=== PATIENT | male | born 1945 | race Caucasian/White ===

== ENCOUNTER 2019-03-22 13:12 | Outpatient (RCR) | payer MEDICARE, SELFPAY ==
[2019-03-14 15:10] VITALS: BMI 44.1
[2019-03-22 15:06] LABS: Prothrombin Time Fingerstick 27.9 SEC (11.9-14.4)
== END 2019-03-22 14:12 | disposition home or self-care (01) ==
LOC: LAB 13:12
PROVIDERS: Family Provider Family Medicine; PCP Family Medicine; Referring Provider Internal Medicine Cardiovascular Disease; Visit Provider Internal Medicine Cardiovascular Disease
DX: I48.0 Paroxysmal atrial fibrillation (principal)
CPT/HCPCS: 36416; 85610

== ENCOUNTER 2019-04-29 14:30 | Outpatient (RCR) | payer MEDICARE, SELFPAY ==
[2019-03-28 13:48] VITALS: BMI 44.1
[2019-04-29 14:45] LABS: Prothrombin Time Fingerstick 29.2 SEC (11.9-14.4)
== END 2019-05-06 18:00 | disposition home or self-care (01) ==
LOC: LAB 14:30
PROVIDERS: Family Provider Family Medicine; PCP Family Medicine; Referring Provider Internal Medicine Cardiovascular Disease; Visit Provider Internal Medicine Cardiovascular Disease
DX: I48.0 Paroxysmal atrial fibrillation (principal)
CPT/HCPCS: 36416; 85610

== ENCOUNTER 2019-05-29 12:02 | Outpatient (RCR) | payer MEDICARE, SELFPAY ==
[2019-03-28 13:48] VITALS: BMI 44.1
[2019-05-09 08:10] VITALS: BMI 43.4
[2019-05-29 13:24] LABS: Prothrombin Time Fingerstick 26.5 SEC (11.9-14.4)
== END 2019-05-29 18:00 | disposition home or self-care (01) ==
LOC: LAB 12:02
PROVIDERS: Family Provider Family Medicine; PCP Family Medicine; Referring Provider Internal Medicine Cardiovascular Disease; Visit Provider Internal Medicine Cardiovascular Disease
DX: I48.0 Paroxysmal atrial fibrillation (principal)
CPT/HCPCS: 36416; 85610

== ENCOUNTER 2019-06-27 14:17 | Outpatient (RCR) | payer MEDICARE, SELFPAY ==
[2019-05-09 08:10] VITALS: BMI 43.4
[2019-06-27 14:35] LABS: Prothrombin Time Fingerstick 29.9 SEC (11.9-14.4)
== END 2019-06-27 18:00 | disposition home or self-care (01) ==
LOC: LAB 14:17
PROVIDERS: Family Provider Family Medicine; PCP Family Medicine; Referring Provider Internal Medicine Cardiovascular Disease; Visit Provider Internal Medicine Cardiovascular Disease
DX: I48.0 Paroxysmal atrial fibrillation (principal)
CPT/HCPCS: 36416; 85610

== ENCOUNTER 2019-07-29 15:02 | Outpatient (RCR) | payer MEDICARE, SELFPAY ==
[2019-05-09 08:10] VITALS: BMI 43.4
[2019-07-30 07:30] LABS: Prothrombin Time Fingerstick 31.1 SEC (11.9-14.4)
== END 2019-07-29 18:00 | disposition home or self-care (01) ==
LOC: LAB 15:02
PROVIDERS: Family Provider Family Medicine; PCP Family Medicine; Referring Provider Internal Medicine Cardiovascular Disease; Visit Provider Internal Medicine Cardiovascular Disease
DX: I48.0 Paroxysmal atrial fibrillation (principal)
CPT/HCPCS: 36416; 85610

== ENCOUNTER 2019-08-28 15:49 | Outpatient (RCR) | payer MEDICARE, SELFPAY ==
[2019-05-09 08:10] VITALS: BMI 43.4
[2019-08-28 16:53] LABS: International Normalized Ratio 1.6; Prothrombin Time (Protime)PT. 18.6 SECONDS (11.7-14.9)
[2019-08-28 17:14] LABS: Prothrombin Time Fingerstick 19.6 SEC (11.9-14.4)
[2019-08-29 10:16] LABS: Prothrombin Time Fingerstick 19.5 SEC (11.9-14.4)
[2019-08-29 10:16] LABS: Prothrombin Time Fingerstick 13.5 SEC (11.9-14.4)
== END 2019-08-28 18:00 | disposition home or self-care (01) ==
LOC: LAB 15:49
PROVIDERS: Family Provider Family Medicine; PCP Family Medicine; Referring Provider Internal Medicine Cardiovascular Disease; Visit Provider Internal Medicine Cardiovascular Disease
DX: I48.0 Paroxysmal atrial fibrillation (principal)
CPT/HCPCS: 36415; 36416; 85610

== ENCOUNTER 2019-10-03 15:30 | Outpatient (RCR) | payer MEDICARE, SELFPAY ==
[2019-05-09 08:10] VITALS: BMI 43.4
[2019-09-13 15:16] LABS: Prothrombin Time Fingerstick 29.1 SEC (11.9-14.4)
[2019-10-03 15:41] LABS: Prothrombin Time Fingerstick 32.1 SEC (11.9-14.4)
== END 2019-10-03 18:00 | disposition home or self-care (01) ==
LOC: LAB 15:30
PROVIDERS: Family Provider Family Medicine; PCP Family Medicine; Referring Provider Internal Medicine Cardiovascular Disease; Visit Provider Internal Medicine Cardiovascular Disease
DX: I48.0 Paroxysmal atrial fibrillation (principal)
CPT/HCPCS: 36416; 85610

== ENCOUNTER 2019-10-30 11:36 | Outpatient (RCR) | payer MEDICARE, SELFPAY ==
[2019-09-25 15:53] VITALS: BMI 43.6
[2019-10-30 11:46] LABS: Prothrombin Time Fingerstick 31.6 SEC (11.9-14.4)
== END 2019-10-30 18:00 | disposition home or self-care (01) ==
LOC: LAB 11:36
PROVIDERS: Family Provider Family Medicine; PCP Family Medicine; Referring Provider Internal Medicine Cardiovascular Disease; Visit Provider Internal Medicine Cardiovascular Disease
DX: I48.0 Paroxysmal atrial fibrillation (principal)
CPT/HCPCS: 36416; 85610

== ENCOUNTER 2019-11-27 11:25 | Outpatient (RCR) | payer MEDICARE, SELFPAY ==
[2019-09-25 15:53] VITALS: BMI 43.6
[2019-11-21 13:57] VITALS: BMI 43.6
[2019-11-27 13:20] LABS: Prothrombin Time Fingerstick 32.2 SEC (11.9-14.4)
== END 2019-12-05 18:00 | disposition home or self-care (01) ==
LOC: LAB 11:25
PROVIDERS: Family Provider Family Medicine; PCP Family Medicine; Referring Provider Internal Medicine Cardiovascular Disease; Visit Provider Internal Medicine Cardiovascular Disease
DX: I48.0 Paroxysmal atrial fibrillation (principal)
CPT/HCPCS: 36416; 85610

== ENCOUNTER 2019-12-25 15:39 | Outpatient (RCR) | payer MEDICARE, SELFPAY ==
[2019-11-21 13:57] VITALS: BMI 43.6
[2019-12-25 15:56] LABS: Prothrombin Time Fingerstick 33.8 SEC (11.9-14.4)
== END 2019-12-25 18:00 | disposition home or self-care (01) ==
LOC: LAB 15:39
PROVIDERS: Family Provider Family Medicine; PCP Family Medicine; Referring Provider Internal Medicine Cardiovascular Disease; Visit Provider Internal Medicine Cardiovascular Disease
DX: I48.0 Paroxysmal atrial fibrillation (principal)
CPT/HCPCS: 36416; 85610

== ENCOUNTER 2020-01-30 12:22 | Outpatient (RCR) | payer MEDICARE, SELFPAY ==
[2019-11-21 13:57] VITALS: BMI 43.6
[2020-01-30 12:30] LABS: Prothrombin Time Fingerstick 29.8 SEC (11.9-14.4)
== END 2020-01-30 18:00 | disposition home or self-care (01) ==
LOC: LAB 12:22
PROVIDERS: Family Provider Family Medicine; PCP Family Medicine; Referring Provider Internal Medicine Cardiovascular Disease; Visit Provider Internal Medicine Cardiovascular Disease
DX: I48.0 Paroxysmal atrial fibrillation (principal)
CPT/HCPCS: 36416; 85610

== ENCOUNTER 2020-02-26 14:35 | Outpatient (RCR) | payer MEDICARE, SELFPAY ==
[2019-11-21 13:57] VITALS: BMI 43.6
[2020-02-26 14:50] LABS: Prothrombin Time Fingerstick 30.2 SEC (11.9-14.4)
== END 2020-02-26 18:00 | disposition home or self-care (01) ==
LOC: LAB 14:35
PROVIDERS: Family Provider Family Medicine; PCP Family Medicine; Referring Provider Internal Medicine Cardiovascular Disease; Visit Provider Internal Medicine Cardiovascular Disease
DX: I48.0 Paroxysmal atrial fibrillation (principal)
CPT/HCPCS: 36416; 85610

== ENCOUNTER 2020-03-27 13:15 | Outpatient (RCR) | payer MEDICARE, SELFPAY ==
[2019-11-21 13:57] VITALS: BMI 43.6
== END 2020-04-06 18:00 | disposition home or self-care (01) ==
LOC: LAB 13:15
PROVIDERS: Family Provider Family Medicine; PCP Family Medicine; Referring Provider Internal Medicine Cardiovascular Disease; Visit Provider Internal Medicine Cardiovascular Disease
DX: I48.0 Paroxysmal atrial fibrillation (principal)
CPT/HCPCS: 36416; 85610

== ENCOUNTER 2020-04-29 08:28 | Outpatient (RCR) | payer MEDICARE, SELFPAY ==
[2020-04-01 16:04] VITALS: BMI 43.6
[2020-04-29 14:56] LABS: Prothrombin Time Fingerstick 28.7 SEC (11.9-14.4)
== END 2020-04-29 18:00 | disposition home or self-care (01) ==
LOC: LAB 08:28
PROVIDERS: Family Provider Family Medicine; PCP Family Medicine; Referring Provider Internal Medicine Cardiovascular Disease; Visit Provider Internal Medicine Cardiovascular Disease
DX: I48.0 Paroxysmal atrial fibrillation (principal); I48.92 Unspecified atrial flutter; Z79.01 Long term (current) use of 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s
CPT/HCPCS: 36416; 85610

== ENCOUNTER 2020-05-28 13:56 | Outpatient (RCR) | payer MEDICARE, SELFPAY ==
[2020-04-01 16:04] VITALS: BMI 43.6
[2020-05-28 14:11] LABS: Prothrombin Time Fingerstick 32.1 SEC (11.9-14.4)
== END 2020-05-28 18:00 | disposition home or self-care (01) ==
LOC: LAB 13:56
PROVIDERS: Family Provider Family Medicine; PCP Family Medicine; Referring Provider Internal Medicine Cardiovascular Disease; Visit Provider Internal Medicine Cardiovascular Disease
DX: I48.0 Paroxysmal atrial fibrillation (principal); I48.92 Unspecified atrial flutter; Z79.01 Long term (current) use of 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s
CPT/HCPCS: 36416; 85610

== ENCOUNTER 2020-06-26 10:07 | Outpatient (RCR) | payer MEDICARE, SELFPAY ==
[2020-04-01 16:04] VITALS: BMI 43.6
[2020-06-26 10:21] LABS: Prothrombin Time Fingerstick 36.5 SEC (11.9-14.4)
== END 2020-06-26 18:00 | disposition home or self-care (01) ==
LOC: LAB 10:07
PROVIDERS: Family Provider Family Medicine; PCP Family Medicine; Referring Provider Internal Medicine Cardiovascular Disease; Visit Provider Internal Medicine Cardiovascular Disease
DX: I48.0 Paroxysmal atrial fibrillation (principal); I48.92 Unspecified atrial flutter; Z79.01 Long term (current) use of 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s
CPT/HCPCS: 36416; 85610

== ENCOUNTER 2020-07-22 12:51 | Outpatient (RCR) | payer MEDICARE, SELFPAY ==
[2020-04-01 16:04] VITALS: BMI 43.6
[2020-07-12 16:00] LABS: Prothrombin Time Fingerstick 30.5 SEC (11.9-14.4)
[2020-07-22 13:05] LABS: Prothrombin Time Fingerstick 31.3 SEC (11.9-14.4)
== END 2020-07-22 18:00 | disposition home or self-care (01) ==
LOC: LAB 12:51
PROVIDERS: Family Provider Family Medicine; PCP Family Medicine; Referring Provider Internal Medicine Cardiovascular Disease; Visit Provider Internal Medicine Cardiovascular Disease
DX: I48.0 Paroxysmal atrial fibrillation (principal); I48.92 Unspecified atrial flutter; Z79.01 Long term (current) use of 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s
CPT/HCPCS: 36416; 85610

== ENCOUNTER 2020-08-18 11:59 | Outpatient (RCR) | payer MEDICARE, SELFPAY ==
[2020-04-01 16:04] VITALS: BMI 43.6
[2020-08-18 12:16] LABS: Prothrombin Time Fingerstick 26.3 SEC (11.9-14.4)
== END 2020-08-18 18:00 | disposition home or self-care (01) ==
LOC: LAB 11:59
PROVIDERS: Family Provider Family Medicine; PCP Family Medicine; Referring Provider Internal Medicine Cardiovascular Disease; Visit Provider Internal Medicine Cardiovascular Disease
DX: I48.0 Paroxysmal atrial fibrillation (principal); I48.92 Unspecified atrial flutter; Z79.01 Long term (current) use of 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s
CPT/HCPCS: 36416; 85610

== ENCOUNTER 2020-09-17 13:20 | Outpatient (RCR) | payer MEDICARE, SELFPAY ==
[2020-04-01 16:04] VITALS: BMI 43.6
[2020-09-17 13:31] LABS: Prothrombin Time Fingerstick 33.4 SEC (11.9-14.4)
== END 2020-09-17 18:00 | disposition home or self-care (01) ==
LOC: LAB 13:20
PROVIDERS: Family Provider Family Medicine; PCP Family Medicine; Referring Provider Internal Medicine Cardiovascular Disease; Visit Provider Internal Medicine Cardiovascular Disease
DX: I48.0 Paroxysmal atrial fibrillation (principal); I48.92 Unspecified atrial flutter; Z79.01 Long term (current) use of 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s
CPT/HCPCS: 36416; 85610

== ENCOUNTER 2020-10-08 17:14 | Outpatient (RCR) | payer MEDICARE, SELFPAY ==
[2020-04-01 16:04] VITALS: BMI 43.6
[2020-10-08] MEDS: COVID-19 VACC, MRNA(PFIZER)/PF 30 MCG/0.3 ML SYRINGE IM (10:55)
[2020-10-29] MEDS: COVID-19 VACC, MRNA(PFIZER)/PF 30 MCG/0.3 ML SYRINGE IM (10:57)
== END 2020-10-08 23:59 ==
LOC: IMMUN 17:14
PROVIDERS: PCP Family Medicine; Visit Provider Family Medicine
DX: Z23 Encounter for immunization (principal)
CPT/HCPCS: 0001A; 0002A

== ENCOUNTER 2020-10-15 13:25 | Outpatient (RCR) | payer MEDICARE, SELFPAY ==
[2020-04-01 16:04] VITALS: BMI 43.6
[2020-10-15 13:50] LABS: Prothrombin Time Fingerstick 33.6 SEC (11.9-14.4)
== END 2020-10-15 18:00 | disposition home or self-care (01) ==
LOC: LAB 13:25
PROVIDERS: Family Provider Family Medicine; PCP Family Medicine; Referring Provider Internal Medicine Cardiovascular Disease; Visit Provider Internal Medicine Cardiovascular Disease
DX: I48.0 Paroxysmal atrial fibrillation (principal); I48.92 Unspecified atrial flutter; Z79.01 Long term (current) use of 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s
CPT/HCPCS: 36416; 85610

== ENCOUNTER → 2020-11-09 09:37 | Outpatient (CLI) | payer MEDICARE, SELFPAY ==
[2020-04-01 16:04] VITALS: BMI 43.6
[2020-11-09 11:05] LABS: AST(SGOT) 20 U/L (15-37); Alanine Aminotransfer ALT/SGPT 22 U/L (16-61); Albumin, Serum 3.1 g/dL (3.2-5.0); Alkaline Phosphatase 71 U/L (45-117); Cholesterol 124 mg/dL (200); Globulin 4.2 g/dL (2.2-4.2); High Density Lipoprotein 30 mg/dL; Protein, Total 7.3 g/dL (6.4-8.2); Triglycerides 133 mg/dL; Very Low Density Lipoprotein 27 mg/dL (5-40)
== END ==
PROVIDERS: PCP Family Medicine; Referring Provider Internal Medicine Cardiovascular Disease; Visit Provider Internal Medicine Cardiovascular Disease
DX: E78.00 Pure hypercholesterolemia, unspecified (principal)
CPT/HCPCS: 36415; 80061; 80076

== ENCOUNTER 2020-11-23 11:37 | Outpatient (RCR) | payer MEDICARE, SELFPAY ==
[2020-04-01 16:04] VITALS: BMI 43.6
[2020-11-11 16:00] VITALS: BMI 44.1
[2020-11-23 11:51] LABS: INR Fingerstick 2.6; Prothrombin Time Fingerstick 28.8 SEC (11.9-14.4)
== END 2020-11-23 18:00 | disposition home or self-care (01) ==
LOC: LAB 11:37
PROVIDERS: Family Provider Family Medicine; PCP Family Medicine; Referring Provider Internal Medicine Cardiovascular Disease; Visit Provider Internal Medicine Cardiovascular Disease
DX: I48.0 Paroxysmal atrial fibrillation (principal); I48.92 Unspecified atrial flutter; Z79.01 Long term (current) use of 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s
CPT/HCPCS: 36416; 85610

== ENCOUNTER → 2020-12-09 14:05 | Outpatient (CLI) | payer MEDICARE, SELFPAY ==
[2020-12-02 08:02] VITALS: BMI 43.9
--- NOTE | 2020-12-09 14:08 | CT_ITS ---
STUDY: LOW DOSE CT LUNG CANCER SCREENING REASON FOR EXAM: Male, 75 years old. Smoker and gt; 40 pack years, quit 2010 RADIATION DOSAGE (If Supplied By Facility): CTDIvol = ( 3.18 ) mGy, DLP = ( 99.66 ) mGycm TECHNIQUE: No contrast was administered. Low dose technique was utilized (average mAS-38 and kVp 120). 1.25 mm axial source images with a slice interval of 1.25-mm were reconstructed in lung windows. 2.5 mm axial source images with a slice interval of 2.5-mm were reconstructed in lung windows. 5.0 mm axial source images with a slice interval of 5.0-mm were reconstructed in soft tissue windows. Nodule measured using lung windows on PACS and/or independent workstation with automated measurement of minimum and maximum diameter. Nodule measurement reported as average diameter rounded to the nearest whole number. Growth is defined as an increase ins size of greater than 1.5 mm. COMPARISON: None. NODULES: There is a 1.7 cm x 1.1 cm irregular nodular density in the posterior lateral aspect of the right upper lobe. Just adjacent to this, there is a focal area of scarring. Follow-up examination is recommended. Emphysema: Diffuse emphysematous changes more prominent in the upper lobes. Mild degree of increased linear markings at the lung bases suggestive of scarring slightly more prominent on the right side. Endobronchial lesion: None Aorta: Atherosclerotic calcification of the aortic arch. Coronary arteries: Coronary artery calcification. Mediastinal nodes: Small benign appearing mediastinal lymph nodes. Other chest and abdominal findings: CT/Low Dose CT Lung Screening IMPRESSION: Lung-RADS category 4A - Screening at 3 months with LDCT or evaluation with PET/CT may be used. IMPORTANT NOTES FOR USE: ACR Lung-RADS Version 1.1 Assessment Categories Release Date: 2018 Category: Coded 0-4 bases on nodule(s) with highest degree of suspicion. Negative screen is defined as categories 1 and 2; a positive screen is defined as categories 3 and 4. Category 3 and 4A nodules that are unchanged on interval CT should be coded as category 2, and individuals returned to screening in 12 months. Category 4X: Category 3 or 4 nodules with additional imaging findings that increase the suspicion of lung cancer, such as spiculation, GGN that doubles in size in 1 year, enlarged lymph notes, etc. Category Modifiers: S (significant finding unrelated to lung cancer) Electronically Signed: Awais Mullins MD at 15:21 EDT , Service support ,
== END ==
PROVIDERS: PCP Family Medicine; Referring Provider Nurse Practitioner Acute Care; Visit Provider Nurse Practitioner Acute Care
DX: F17.210 Nicotine dependence, cigarettes, uncomplicated (principal)
CPT/HCPCS: 71271

== ENCOUNTER 2020-12-25 13:18 | Outpatient (RCR) | payer MEDICARE, SELFPAY ==
[2020-12-02 08:02] VITALS: BMI 43.9
[2020-12-25 13:31] LABS: INR Fingerstick 3.1
== END 2020-12-25 18:00 | disposition home or self-care (01) ==
LOC: LAB 13:18
PROVIDERS: Family Provider Family Medicine; PCP Family Medicine; Referring Provider Internal Medicine Cardiovascular Disease; Visit Provider Internal Medicine Cardiovascular Disease
DX: I48.0 Paroxysmal atrial fibrillation (principal); I48.92 Unspecified atrial flutter; Z79.01 Long term (current) use of 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s
CPT/HCPCS: 36416; 85610

== ENCOUNTER 2021-01-08 10:55 | Outpatient (RCR) | payer MEDICARE, SELFPAY ==
[2020-12-31 07:38] VITALS: BMI 44.1
[2021-01-08 11:10] LABS: INR Fingerstick 2.5; Prothrombin Time Fingerstick 28.3 SEC (11.9-14.4)
== END 2021-01-08 18:00 | disposition home or self-care (01) ==
LOC: LAB 10:55
PROVIDERS: Family Provider Family Medicine; PCP Family Medicine; Referring Provider Internal Medicine Cardiovascular Disease; Visit Provider Internal Medicine Cardiovascular Disease
DX: I48.0 Paroxysmal atrial fibrillation (principal); I48.92 Unspecified atrial flutter; Z79.01 Long term (current) use of 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s
CPT/HCPCS: 36416; 85610

== ENCOUNTER → 2021-01-26 15:15 | Outpatient (CLI) | payer MEDICARE, SELFPAY ==
[2020-12-31 07:38] VITALS: BMI 44.1
--- NOTE | 2021-01-26 15:00 | PET_ITS ---
EXAMINATION: FDG PET-CT INDICATIONS: A 75-year-old male with history of pulmonary nodularity. COMPARISON EXAMINATION: CT of the chest report dated 01/10/21 INDEX LESION SIZE SUV INTERPRETATION Right upper lung-right upper lobe 10.4 x 22.1-mm (frame 227) 7.7 Fulfills quantitative criteria for viable neoplasm TECHNIQUE: Following the intravenous administration of 12.88 mCi of F-18 deoxyglucose via the right antecubital fossa, multiplanar image acquisitions of the neck, chest, abdomen and pelvis to level of mid thigh, obtained at one hour post radiopharmaceutical administration contemporaneously interpreted with the current CT of the neck, chest, abdomen and pelvis, to level of mid thigh, dated 01/26/[address] of the chest report dated 01/10/21 reveals: BLOOD GLUCOSE LEVEL:?? 98 mg/dl?HEIGHT:?69 inches?WEIGHT: 299 lbs. FINDINGS: 1. Focal increased FDG distribution is defined in the right upper lung-right upper lobe generating a calculated maximal standard uptake value of 7.7. The maximal axial diameter of the corresponding parenchymal density on review of CT of the chest dated 01/26/21 is 10.4-mm (transverse) x 22.1-mm (AP). 2. Normal physiologic distribution of the radiopharmaceutical is apparent in the hepatic (2.9) and splenic parenchyma, both renal units, bladder and visualized intestinal tract. The visualized portion of the cerebral cortex demonstrate symmetric and preserved glucose metabolism. Diffuse radiopharmaceutical concentration is noted in all four quadrants of the abdomen and pelvis. Pertinent CT findings are as follows: CHEST: Centrilobular emphysematous changes are noted in the bilateral upper-mid lung zones. There are no additional parenchymal densities-nodules defined in the right and left hemithorax with discernible increased FDG uptake. Bilateral axillary soft tissue with fatty hilus is ametabolic. There is atherosclerotic calcification defined in the thoracic aorta without evidence of dilatation-aneurysm formation. Coronary arterial calcification is observed. ABDOMEN AND PELVIS: Cholelithiasis is defined. There is atherosclerotic calcification defined in the abdominal aorta without evidence of dilatation-aneurysm formation. Pelvic arterial calcification is demonstrated. Subtle calcification is noted within the right renal unit. A fat containing paraumbilical hernia is encountered. Significant beam hardening artifact attributed to right and left hip arthroplasties preclude assessment of the lower pelvic CT acquisition. Right and left subcentimeter inguinal soft tissue densities visualized are ametabolic. SKELETAL: Degenerative changes are noted in the cervical, thoracic and lumbar spine without evidence of increased radiopharmaceutical concentration. Right and left hip prostheses are noted as previously described. PET/PET/CT Tumor Base -Thigh Init IMPRESSION: 1. Increased glucose metabolism defined in the right upper lung-right upper lobe fulfills quantitative criteria for viable neoplasm. Histopathologic analysis is recommended. (Santos et al, Annals of Internal Medicine, 138:724, 2003). 2. No other quantitatively significant hypermetabolic abnormalities are noted. Electronic Signature Ever Dowling D.O. Accurate Quantification of SUVs for this report are calculated using the exclusive [employer]. (U.S. Patent No. 10, [id number] 983). Standardization and correction of the FDG SUV metric via [employer] technology allow for vendor non-specific objective quantitative examination comparison and optimization of the sensitivity and specificity of the FDG PET-CT examination. Electronically Signed: Ever Dowling DO at 7:26 EDT Tel , Service support ,
[2021-01-26] MEDS: LORazepam 2 MG/ML Syringe IV (16:49)
== END ==
PROVIDERS: PCP Family Medicine; Referring Provider Nurse Practitioner Acute Care; Visit Provider Nurse Practitioner Acute Care
DX: R91.8 Other nonspecific abnormal finding of lung field (principal)
CPT/HCPCS: 96374; 78815; A9552; A4216

== ENCOUNTER 2021-02-04 13:43 | Outpatient (RCR) | payer MEDICARE, SELFPAY ==
[2021-02-02 08:52] VITALS: BMI 43.7
[2021-02-04 13:56] LABS: INR Fingerstick 2.9; Prothrombin Time Fingerstick 31.8 SEC (11.9-14.4)
== END 2021-02-04 18:00 | disposition home or self-care (01) ==
LOC: LAB 13:43
PROVIDERS: Family Provider Family Medicine; PCP Physician Assistant; Referring Provider Internal Medicine Cardiovascular Disease; Visit Provider Internal Medicine Cardiovascular Disease
DX: I48.0 Paroxysmal atrial fibrillation (principal); I48.92 Unspecified atrial flutter; Z79.01 Long term (current) use of 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s
CPT/HCPCS: 36416; 85610

== ENCOUNTER → 2021-02-17 08:36 | Outpatient (CLI) | payer MEDICARE, SELFPAY ==
[2021-02-02 08:52] VITALS: BMI 43.7
[2021-02-17 08:59] VITALS: PULSE 66; BMI 44.1
[2021-02-17 09:17] VITALS: BP 142/52; BP 161/57; PULSE 60; RESP 14; O2SAT 93
--- NOTE | 2021-02-17 09:30 | CT_ITS ---
STUDY: CT CHEST WITHOUT CONTRAST REASON FOR EXAM: Male, 75 years old. LUNG BIOPSY, PRE-BIOPSY images. Unable to access mass. RADIATION DOSAGE (If Supplied By Facility): CTDIvol = ( 29.14 ) mGy, DLP = ( 745.54 ) mGycm TECHNIQUE: Transaxial imaging was performed without the administration of intravenous contrast material. Individualized dose optimization techniques were used for this CT. COMPARISON: Comparison is made with prior study of 12/09/2020. FINDINGS: Once again, there is a 1.7 cm x 1.1 cm irregular spicular nodule in the posterior-lateral aspect of the right upper lobe. Unable to perform the biopsy due to no safe access to the nodular density available. CT/Chest without Contrast IMPRESSION: The biopsy of the right upper lobe nodule was not biopsied. No adequate access is available for biopsy. Electronically Signed: Awais Mullins MD at 12:59 EDT , Service support ,
[2021-02-17 09:52] VITALS: BP 158/76; PULSE 70; RESP 15; O2SAT 94
[2021-02-17 10:03] VITALS: BP 161/57; BP 163/67; PULSE 61; RESP 16; O2SAT 96
--- NOTE | 2021-02-17 10:34 | NURSING ---
Unable to complete CT Guided biopsy due to location of nodule (see procedural sedation Umu Rodriguez's office made aware. Pt informed to follow up with Umu Rodriguez's office for further instructions if he does not hear from the office by tomorrow.
== END | disposition home or self-care (01) ==
PROVIDERS: PCP Physician Assistant; Referring Provider Nurse Practitioner Acute Care; Visit Provider Nurse Practitioner Acute Care
DX: R91.1 Solitary pulmonary nodule (principal)
CPT/HCPCS: 71250; J7040; A4216

== ENCOUNTER 2021-03-15 11:36 | Outpatient (RCR) | payer MEDICARE, SELFPAY ==
[2021-03-03 08:09] VITALS: BMI 44.6
[2021-03-15 11:55] LABS: INR Fingerstick 2.3; Prothrombin Time Fingerstick 25.7 SEC (11.9-14.4)
== END 2021-03-15 18:00 | disposition home or self-care (01) ==
LOC: LAB 11:36
PROVIDERS: Family Provider Family Medicine; PCP Physician Assistant; Referring Provider Internal Medicine Cardiovascular Disease; Visit Provider Internal Medicine Cardiovascular Disease
DX: I48.0 Paroxysmal atrial fibrillation (principal); I48.92 Unspecified atrial flutter; Z79.01 Long term (current) use of 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s
CPT/HCPCS: 36416; 85610

== ENCOUNTER 2021-04-15 11:50 | Outpatient (RCR) | payer MEDICARE, SELFPAY ==
[2021-04-07 01:08] VITALS: BMI 44.6
[2021-04-15 12:01] LABS: INR Fingerstick 2.5; Prothrombin Time Fingerstick 28.5 SEC (11.9-14.4)
== END 2021-04-15 18:00 | disposition home or self-care (01) ==
LOC: LAB 11:50
PROVIDERS: Family Provider Family Medicine; PCP Physician Assistant; Referring Provider Internal Medicine Cardiovascular Disease; Visit Provider Internal Medicine Cardiovascular Disease
DX: Z79.01 Long term (current) use of 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s (principal)
CPT/HCPCS: 36416; 85610

== ENCOUNTER 2021-05-07 12:54 | Outpatient (RCR) | payer MEDICARE, SELFPAY ==
[2021-05-07 00:40] VITALS: BMI 44.6
[2021-05-07 13:05] LABS: INR Fingerstick 2.1
== END 2021-06-06 05:18 | disposition home or self-care (01) ==
LOC: LAB 12:54
PROVIDERS: Family Provider Family Medicine; PCP Physician Assistant; Referring Provider Internal Medicine Cardiovascular Disease; Visit Provider Internal Medicine Cardiovascular Disease
DX: Z79.01 Long term (current) use of 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s (principal)
CPT/HCPCS: 36416; 85610

== ENCOUNTER 2021-06-11 11:45 | Outpatient (RCR) | payer MEDICARE, SELFPAY ==
[2021-06-06 05:18] VITALS: BMI 44.6
[2021-06-11 13:21] LABS: INR Fingerstick 2.5; Prothrombin Time Fingerstick 28.5 SEC (11.9-14.4)
== END 2021-07-06 18:00 | disposition home or self-care (01) ==
LOC: LAB 11:45
PROVIDERS: Family Provider Family Medicine; PCP Physician Assistant; Referring Provider Internal Medicine Cardiovascular Disease; Visit Provider Internal Medicine Cardiovascular Disease
DX: Z79.01 Long term (current) use of 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s (principal)
CPT/HCPCS: 36416; 85610

== ENCOUNTER 2021-08-05 11:25 | Outpatient (RCR) | payer MEDICARE, SELFPAY ==
[2021-07-07 03:52] VITALS: BMI 44.6
[2021-07-13 10:51] LABS: INR Fingerstick 2.5; Prothrombin Time Fingerstick 28.3 SEC (11.9-14.4)
[2021-08-05 11:40] LABS: INR Fingerstick 2.5; Prothrombin Time Fingerstick 28.5 SEC (11.9-14.4)
== END 2021-08-07 18:00 | disposition home or self-care (01) ==
LOC: LAB 11:25
PROVIDERS: Family Provider Family Medicine; PCP Physician Assistant; Referring Provider Internal Medicine Cardiovascular Disease; Visit Provider Internal Medicine Cardiovascular Disease
DX: Z79.01 Long term (current) use of 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s (principal)
CPT/HCPCS: 36416; 85610

== ENCOUNTER 2021-08-20 11:28 | Outpatient (RCR) | payer MEDICARE, SELFPAY ==
[2021-08-09 02:37] VITALS: BMI 44.6
[2021-08-20 11:45] LABS: INR Fingerstick 2.1; Prothrombin Time Fingerstick 24.3 SEC (11.9-14.4)
== END 2021-09-06 18:00 | disposition home or self-care (01) ==
LOC: LAB 11:28
PROVIDERS: PCP Physician Assistant; Referring Provider Internal Medicine Cardiovascular Disease; Visit Provider Internal Medicine Cardiovascular Disease
DX: Z79.01 Long term (current) use of 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s (principal)
CPT/HCPCS: 36416; 85610

== ENCOUNTER 2021-10-04 11:42 | Outpatient (RCR) | payer MEDICARE, SELFPAY ==
[2021-09-07 02:28] VITALS: BMI 44.6
[2021-10-04 12:11] LABS: INR Fingerstick 1.9; Prothrombin Time Fingerstick 22.3 SEC (11.9-14.4)
== END 2021-10-04 23:59 | disposition home or self-care (01) ==
LOC: LAB 11:42
PROVIDERS: PCP Physician Assistant; Referring Provider Internal Medicine Cardiovascular Disease; Visit Provider Internal Medicine Cardiovascular Disease
DX: Z79.01 Long term (current) use of 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s (principal)
CPT/HCPCS: 36416; 85610

== ENCOUNTER 2021-10-21 11:45 | Outpatient (RCR) | payer MEDICARE, SELFPAY ==
[2021-10-05 10:32] VITALS: BMI 44.6
[2021-10-21 11:56] LABS: INR Fingerstick 2.3; Prothrombin Time Fingerstick 27.3 SEC (11.7-14.9)
== END 2021-11-04 18:00 | disposition home or self-care (01) ==
LOC: LAB 11:45
PROVIDERS: PCP Physician Assistant; Referring Provider Internal Medicine Cardiovascular Disease; Visit Provider Internal Medicine Cardiovascular Disease
DX: Z79.01 Long term (current) use of 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s (principal)
CPT/HCPCS: 36416; 85610

== ENCOUNTER 2021-10-31 23:43 | Observation (INO) | payer MEDICARE, SELFPAY ==
[2021-10-31 23:45] VITALS: BP 138/88; PULSE 88; RESP 16; TEMP 36.6; O2SAT 97; BMI 43.5
[2021-10-31 23:54] VITALS: O2SAT 89; O2SAT 91; O2SAT 94
--- NOTE | 2021-10-31 23:56 | EKG12_ITS ---
Test Reason : WEAKNESS Blood Pressure : / mmHG Vent. Rate : 084 BPM Atrial Rate : 070 BPM P-R Int : 256 ms QRS Dur : 084 ms QT Int : 382 ms P-R-T Axes : 078 -16 028 degrees QTc Int : 451 ms Sinus rhythm with 1st degree A-V block with occasional and consecutive Premature ventricular complexe s and Fusion complexes Nonspecific ST abnormality Abnormal ECG Confirmed by CRISTIANE VILLEDA, ANIYA ([id number]), writer editor NEDA JIN ([id number]) on 11/02/2021 10:39:46 AM Referred By: Confirmed By:ANIYA SAUER MD
--- NOTE | 2021-10-31 23:58 | EDS_ITS ---
HPI History of Present Illness Chief Complaint: Shortness of Breath Detail of Chief Complaint: Chills, weakness, shortness of breath Informant: patient Onset/Context/Timing Onset: Hours Context: Gradual Onset Current Severity: Mild Maximum Severity: Moderate Narrative Narrative: Patient presents with our to have history of chills and shortness of breath. He states overall he feels generally weak. He states he felt well throughout the day today. No measured temperature. He has a chronic cough that is unchanged from baseline with a thick white sputum production. No chest pain. No vomiting or diarrhea. Patient has a history of lung cancer and finished radiation approximately 3 months ago. He is not currently on chemotherapy. [facility] Medical History (Updated 11/01/21 @ 01:[address] Janet Raines MD) Chronic diastolic heart failure CKD (chronic kidney disease) COPD (chronic obstructive pulmonary disease) Essential hypertension [facility] current use of 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 SILVER (obstructive sleep apnea) Paroxysmal atrial fibrillation Paroxysmal atrial flutter Pure hypercholesterolemia SOB (shortness of breath) Tachycardia Type 2 diabetes mellitus Ulcerative colitis Home Medications potassium chloride 20 meq PO DAILY 09/27/15 [History Last Taken 08/20/16 07:00] atorvastatin 40 mg PO QHS 08/20/16 [History Last Taken 08/20/16 07:00] diphenhydramine HCl 25 mg PO Q6H PRN PRN 08/20/16 [History Last Taken Unknown] metformin 500 mg tablet 500 mg PO BID 05/09/19 [History Last Taken Unknown] furosemide 20 mg tablet 40 mg PO DAILY tab 04/01/20 [History Last Taken Unknown] nystatin-triamcinolone 100,000 unit/gram-0.1 % topical ointment 1 applic TOPICAL DAILY PRN 04/01/20 [History Last Taken Unknown] prazosin 2 mg capsule 2 mg PO BID #180 cap 11/06/20 [Rx Last Taken Unknown] flecainide 50 mg tablet 50 mg PO Q12H #180 tab 11/09/20 [Rx Last Taken Unknown] mesalamine 800 mg tablet,delayed release 800 mg PO TID tablet 11/11/20 [History Last Taken Unknown] metoprolol tartrate 50 mg PO BID 02/17/21 [History Last Taken Unknown] warfarin 2.5 mg tablet 2.5 mg PO DAILY #90 tab 05/26/21 [Rx Last Taken Unknown] Allergy/AdvReac Type Severity Reaction Status Date / Time amlodipine Allergy Severe Rash Verified 10/31/21 23:47 Penicillins Allergy Hives Verified 10/31/21 23:47 azithromycin AdvReac Diarrhea Verified 10/31/21 23:47 celecoxib [From Celebrex] AdvReac RECTAL Verified 10/31/21 23:47 BLEEDING Family History Mother Colon cancer Heart disease Father CAD (coronary artery disease) Sister Diabetes Brother Heart disease Diabetes Surgical History History of bilateral hip replacements History of knee surgery History of radiofrequency ablation procedure for cardiac arrhythmia (~08/11/15) Social History Smoking Status: Former smoker alcohol intake: current details: rare substance use type: does not use caffeine: Yes Type: coffee Number of servings: 3 ROS ROS ED Constitutional Constitutional ED: Reports chills; Denies fever(s) Eyes Eyes: Denies change in vision ENT ENT ED: Denies rhinorrhea or sore throat Cardiovascular Cardiovascular: Denies chest pain Respiratory/Chest Respiratory/Chest: Reports cough, dyspnea and sputum Gastrointestinal Gastrointestinal: Denies abdominal pain, diarrhea, nausea or vomiting Genitourinary Genitourinary ED: Denies dysuria Musculoskeletal Musculoskeletal: Denies back pain Integumentary Denies rash Neurologic Neurologic: Reports weakness; Denies headache(s) Allergic/Immunologic Allergic/Immunologic ED: Denies urticaria EXAM Physical Exam Const Vital Signs: 10/31/21 23:45 10/31/21 23:54 11/01/21 01:07 Temperature 97.8 F Temperature Source Temporal Pulse Rate 88 Respiratory Rate 16 Respiratory Effort Short of Breath Respiratory Depth Normal Respiratory Pattern Normal Blood Pressure 138/88 H Blood Pressure Mean 104 Pulse Ox 97 91 94 Oxygen Delivery Method Room Air Nasal Cannula Nasal Cannula Oxygen Flow Rate (L/min) 2 2 Positive well nourished and well developed General Appearance ED: well developed HEENT Reports moist mucous membranes Eyes PERRL and EOMs intact bilaterally Neck supple Chest Wall inspection of chest normal and palpation of chest normal Resp normal respiratory effort and clear to auscultation bilaterally Cardio regular rate and regular rhythm GI non-tender Auscultation: hypoactive bowel sounds Palpation: soft Extremity normal to inspection Neuro oriented x3 Sensorium / Orientation: alert Psych mental status grossly normal Skin no rashes or lesions noted MDM MDM MDM Narrative Medical decision making narrative: EKG, chest x-ray, sepsis work-up initiated. Cultures obtained. Influenza and Covid swab ordered. Lab Data Attestation: I reviewed the patient's lab results. Labs: Laboratory Results - last 24 hr 11/01/21 11/01/21 11/01/21 00:03 00:03 00:03 WBC 6.6 RBC 4.88 Hgb 14.8 Hct 45.7 MCV 93.6 MCH 30.3 MCHC 32.4 RDW Std Deviation 46.3 H RDW Coeff of Jadon 13.6 Plt Count 172 MPV 10.2 Immature Gran % (Auto) 0.600 Neut % (Auto) 77.8 H Lymph % (Auto) 17.4 L Emanuel % (Auto) 1.4 Eos % (Auto) 2.3 Baso % (Auto) 0.5 Absolute Neuts (auto) 5.1 Absolute Lymphs (auto) 1.14 Nucleated RBC % 0 PT 24.3 H INR 2.3 Sodium 138 Potassium 5.0 Chloride 106 Carbon Dioxide 28.0 Anion Gap 4 L BUN 21 H Creatinine 1.33 H Estim Creat Clear Calc 47.99 Est GFR (MDRD) Af Amer 67 Est GFR (MDRD) Non-Af 56 L BUN/Creatinine Ratio 15.8 Glucose 132 H Lactic Acid Calcium 8.3 L Total Bilirubin 0.90 Direct Bilirubin 0.11 AST 33 ALT 23 Alkaline Phosphatase 72 Troponin I High Sens 7 B-Natriuretic Peptide Total Protein 7.6 Albumin 3.0 L Globulin 4.6 H Urine Color Urine Clarity Urine pH Ur Specific Bradford Urine Protein Urine Glucose (UA) Urine Ketones Urine Occult Blood Urine Nitrite Urine Bilirubin Urine Urobilinogen Ur Leukocyte Esterase Urine RBC Urine WBC Ur Squamous Epith Cells Urine Bacteria Urine Mucus 11/01/21 11/01/21 11/01/21 00:03 00:03 01:00 WBC RBC Hgb Hct MCV MCH MCHC RDW Std Deviation RDW Coeff of Jadon Plt Count MPV Immature Gran % (Auto) Neut % (Auto) Lymph % (Auto) Emanuel % (Auto) Eos % (Auto) Baso % (Auto) Absolute Neuts (auto) Absolute Lymphs (auto) Nucleated RBC % PT INR Sodium Potassium Chloride Carbon Dioxide Anion Gap BUN Creatinine Estim Creat Clear Calc Est GFR (MDRD) Af Amer Est GFR (MDRD) Non-Af BUN/Creatinine Ratio Glucose Lactic Acid 1.9 Calcium Total Bilirubin Direct Bilirubin AST ALT Alkaline Phosphatase Troponin I High Sens B-Natriuretic Peptide 57.5 Total Protein Albumin Globulin Urine Color Yellow Urine Clarity Clear Urine pH 5.0 Ur Specific Bradford 1.020 Urine Protein 30 H Urine Glucose (UA) Normal Urine Ketones Negative Urine Occult Blood 150 H Urine Nitrite Negative Urine Bilirubin Negative Urine Urobilinogen Normal Ur Leukocyte Esterase 25 H Urine RBC 5-10 SEEN Urine WBC 0-5 SEEN Ur Squamous Epith Cells 0 SEEN Urine Bacteria RARE Urine Mucus 0 SEEN Influenza: Negative Covid: Negative Radiography Chest X-Ray - ED: 1 View, Read by ED Physician and Chronic Changes Diagnostic Testing: Clinical Impression(s) from Imaging Studies Chest X-Ray 11/01/21 00:00 IMPRESSION: 1. Borderline to mild canal with borderline heart failure. 2. No other evidence of active cardiopulmonary disease. 3. Mild hyperinflation. 4. Benign calcifications in the right hilar and right infrahilar regions. 5. Mild demineralization. Electronically Signed: Christian Cruz MD at 1:18 EDT , EKG Initial EKG: Attestation: I personally reviewed and interpreted this EKG as follows: Interpretation: Sinus Rhythm (Sinus 84 with first-degree AV block. No acute ST change.) Treatment and Re-Evaluation Narrative: Nursing staff did note that the patient O2 sat when sitting in bed was 89%. He was placed on nasal cannula at the time of my initial exam. They did take his oxygen off to allow him to stand at bedside to use the urinal. With this movement his O2 sat did drop to 87%. He was placed back in bed and on nasal cannula. His oxygen quickly recovered to 94%. CBC and chemistry studies largely unremarkable. INR is therapeutic. BNP is 57. Troponin normal at 7. Urinalysis reveals no acute infection. Chest x-ray reveals chronic changes per my interpretation. Radiology feels there is borderline heart failure. Patient given 40 mg of IV Lasix. In light of the fact that he is requiring oxygen I will speak with hospitalist regarding observation. Discharge Plan Triage Chief Complaint: Shortness of Breath ED Provider: Janet Raines Dx/Rx/DC Orders Clinical Impression: Mild congestive heart failure, Hypoxia Prescriptions: No Action metformin 500 mg tablet 500 mg PO BID RF: 0 furosemide 20 mg tablet 40 mg PO DAILY RF: 0 nystatin-triamcinolone 100,000-0.1 unit/gram-% ointment 1 applic TOPICAL DAILY PRN (Reason: Itching) RF: 0 warfarin 2.5 mg tablet 2.5 mg PO DAILY Qty: 90 RF: 3 potassium chloride 20 MEQ tablet 20 meq PO DAILY RF: 0 mesalamine 800 mg tablet,delayed release (DR/EC) 800 mg PO TID RF: 0 atorvastatin 40 MG tablet 40 mg PO QHS RF: 0 diphenhydramine HCl 25 MG capsule 25 mg PO Q6H PRN PRN (Reason: Allergies) RF: 0 metoprolol tartrate 100 mg tablet 50 mg PO BID RF: 0 prazosin 2 mg capsule 2 mg PO BID Qty: 180 RF: 3 flecainide 50 mg tablet 50 mg PO Q12H Qty: 180 RF: 3 Primary Care Provider: Fransisca Wright Referrals: Fransisca Wright, PA [Primary Care Provider] - Disposition Disposition: Acute Care Hospital [facility]
[2021-11-01] VITALS (21 sets, daily range): BP systolic 123–140; BP diastolic 53–65; PULSE 68–98; RESP 16–20; TEMP 36.3–37.2; O2SAT 87–95
--- NOTE | 2021-11-01 | RAD_ITS ---
STUDY: PORTABLE AP UPRIGHT CHEST OF 2359 HOURS ON 10/31/2021 REASON FOR EXAM: 76-year-old male with shortness of breath. TECHNIQUE: A single view portable AP upright chest x-ray was performed per request. COMPARISON: 05/16/2017. FINDINGS: Mild demineralization.. Borderline to mild cardiomegaly with borderline heart failure. No confluent infiltrates, atelectasis, effusion, or pulmonary mass lesions. Calcifications in the right hilar and right infrahilar regions. Mild hyperinflation. RAD/Chest 1 View (Portable) IMPRESSION: 1. Borderline to mild canal with borderline heart failure. 2. No other evidence of active cardiopulmonary disease. 3. Mild hyperinflation. 4. Benign calcifications in the right hilar and right infrahilar regions. 5. Mild demineralization. Electronically Signed: Christian Cruz MD at 1:18 EDT ,
[2021-11-01 00:32] LABS: International Normalized Ratio 2.3; Prothrombin Time (Protime)PT. 24.3 SECONDS (11.7-14.9)
[2021-11-01 00:37] LABS: Absolute Lymphocyte Count 1.14 X10^3/uL (0.83-4.51); Absolute Neutrophil Count 5.1 X10^3/uL (2.0-7.7); Basophil# 0.03 X10^3/uL; Basophil% 0.5 % (0-1); Eosinophil# 0.15 X10^3/uL; Eosinophils% 2.3 % (0-5); Hematocrit 45.7 % (40-54); Hemoglobin 14.8 g/dL (13.0-16.5); Lymphocyte # 1.14 X10^3/ul (0.83-4.51); Lymphocyte % 17.4 % (19-41); Mean Corp Hgb Conc 32.4 g/dL (32-36); Mean Corpuscular Hgb 30.3 pg (27.0-32.0); Mean Corpuscular Volume 93.6 fL (80-94); Mean Platelet Vol. 10.2 fl (6.2-12.0); Monocyte# 0.09 X10^3/uL; Monocyte% 1.4 % (0-10); NRBC Flagged by Analyzer 0 % (0-5); Neutrophil # 5.11 X10^3/uL (2.7-7.7); Neutrophil % 77.8 % (47-70); Platelet Count 172 K/mm3 (150-450); RBC Distribution Width CV 13.6 % (11.6-14.6); RBC Distribution Width SD 46.3 fl (35.1-43.9); Red Blood Count 4.88 M/mm3 (4.6-6.2); White Blood Count 6.6 K/mm3 (4.4-11.0)
[2021-11-01 00:42] LABS: Lactic Acid 1.9 mmol/L (0.4-1.9)
[2021-11-01 01:02] LABS: BNP,B-Type NATRIURETIC PEPTIDE 57.5 pg/mL (0-100)
[2021-11-01 01:03] LABS: AST(SGOT) 33 U/L (15-37); Alanine Aminotransfer ALT/SGPT 23 U/L (16-61); Alkaline Phosphatase 72 U/L (45-117); Anion Gap 4 (5-15); BUN 21 mg/dL (7-18); BUN/Creat Ratio 15.8 RATIO (10-20); Bilirubin, Direct 0.11 mg/dL (0.00-0.30); Calcium,Total 8.3 mg/dL (8.5-10.1); Chloride 106 mmol/L (98-107); Creatinine, Serum 1.33 mg/dL (0.70-1.30); EST Glomerular Filtration Rate 56 mL/min (>60); Est Glom Filt Rate - Afr Amer 67 mL/min (>60); Estimated Creatinine Clearance 47.99 ml/min; Globulin 4.6 g/dL (2.2-4.2); Glucose 132 mg/dL (74-106); Protein, Total 7.6 g/dL (6.4-8.2); Sodium Level 138 mmol/L (136-145); Troponin-I HS 7 pg/mL (3.0-78.0)
[2021-11-01 01:05] LABS: Mucous, Urine 0 SEEN /hpf (<or=2+); Squamous Epithelial Cells - UA 0 SEEN /hpf (0-5)
[2021-11-01 01:06] LABS: Color, Urine Yellow (Yellow); Glucose, Dipstick Normal (Normal); Ketone-Dipstick Negative (Negative); Leukocyte Esterase-Dipstick 25 /ul (Negative); Nitrite-Dipstick Negative (Negative); Occult Blood-Urine 150 /ul (Negative); Protein-Dipstick 30 mg/dl (Negative); Urine Bilirubin Dipstick Negative (Negative); Urine Clarity Clear (Clear); Urine Urobilinogen Normal (Normal)
[2021-11-01 01:18] LABS: Bacteria RARE /hpf (None Seen); Red Blood Cells-Urine 5-10 SEEN /hpf (0-5); White Blood Cells 0-5 SEEN /hpf (0-5)
[2021-11-01] MEDS: Furosemide 40 MG/4 ML Vial IV (01:51)
--- NOTE | 2021-11-01 04:49 | PCM.HP.STD ---
[facility] - General General Date of Admission: 11/01/21 Date of Service: 11/01/21 Chief Complaint: Acute on chronic shortness of breath for 2 to 3 days. HPI Narrative AVELINA BULL, is a 76 M with multiple comorbidities including lung cancer, completed radiotherapy approximately [address] 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 Patient has chronic shortness of breath on mild exertion with history of COPD, SILVER, paroxysmal A. fib status post ablation and heart failure. He denies any change in severity or characteristics of cough or sputum production. Patient has chronic exertional dyspnea but denies PND or orthopnea. Mild chronic cough with thick whitish sputum production. Denies fever or chills. No nausea or vomiting, chest pain, wheezing or abdominal pain. In ED vitals reviewed heart rate and blood pressure in acceptable limit. Pulse ox 97% on room air. Patient had chest x-ray done individually reviewed and shows mild interstitial edema. No confluent infiltrate, effusion or pulmonary mass lesion. Mild hyperinflation. Twelve-lead EKG shows sinus rhythm with first-degree AV block at 84 bpm with PVCs. QTc [address]-T abnormality. Patient had labs done in ED reviewed. Patient was given Lasix 40 mg IV and further admitted. 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 SILVER (obstructive sleep apnea) Paroxysmal atrial fibrillation Paroxysmal atrial flutter Pure hypercholesterolemia Sleep apnea SOB (shortness of breath) Tachycardia Type 2 diabetes mellitus Ulcerative colitis Home Medications potassium chloride 20 meq PO DAILY 09/27/15 [History Last Taken 10/31/21 08:00 20 meq] atorvastatin 40 mg PO QHS 08/20/16 [History Last Taken 10/31/21 18:00 40 mg] diphenhydramine HCl 25 mg PO Q6H PRN PRN 08/20/16 [History Last Taken Unknown] metformin 500 mg tablet 500 mg PO BID 05/09/19 [History Last Taken 10/31/21 18:00 500 mg] furosemide 20 mg tablet 40 mg PO DAILY tab 04/01/20 [History Last Taken 10/31/21 08:00 20 mg] nystatin-triamcinolone 100,000 unit/gram-0.1 % topical ointment 1 applic TOPICAL DAILY PRN 04/01/20 [History Last Taken 10/31/21 18:00] prazosin 2 mg capsule 2 mg PO BID #180 cap 11/06/20 [Rx Last Taken 10/31/21 08:00 2 mg] flecainide 50 mg tablet 50 mg PO Q12H #180 tab 11/09/20 [Rx Last Taken 10/31/21 18:00 50 mg] mesalamine 800 mg tablet,delayed release 800 mg PO TID tablet 11/11/20 [History Last Taken 10/31/21 18:00 800] metoprolol tartrate 50 mg PO BID 02/17/21 [History Last Taken 10/31/21 18:00 100] warfarin 2.5 mg tablet 2.5 mg PO DAILY #90 tab 05/26/21 [Rx Last Taken 10/31/21 18:00 2.5mg] Allergy/AdvReac Type Severity Reaction Status Date / Time amlodipine Allergy Severe Rash Verified 10/31/21 23:47 Penicillins Allergy Hives Verified 10/31/21 23:47 azithromycin AdvReac Diarrhea Verified 10/31/21 23:47 celecoxib [From Celebrex] AdvReac RECTAL Verified 10/31/21 23:47 BLEEDING Family History Mother Colon cancer Heart disease Father CAD (coronary artery disease) Sister Diabetes Brother Heart disease Diabetes Surgical History History of bilateral hip replacements History of knee surgery History of radiofrequency ablation procedure for cardiac arrhythmia (~08/11/15) Social History Smoking Status: Former smoker alcohol intake: current details: rare substance use type: does not use caffeine: Yes Type: coffee Number of servings: 3 ROS ROS Narrative Constitutional: Reports fatigue and weakness. Acute on chronic shortness of breath. HEENT: Reports systems reviewed and no addt'l complaints, except as documented Respiratory/Chest: As mentioned in HPI Gastrointestinal: Denies coffee ground emesis, hematemesis or vomiting Genitourinary: Denies burning urination or new urinary tract symptoms Musculoskeletal: Reports joint pain mainly over lumbar sacral spine and limited range of motion. Bilateral hip replacement Neurologic: Denies seizure-like activity skin: No ulcer. No rash Endocrinology: Diabetes mellitus type 2 reports systems reviewed and no addt'l complaints, except as documented Hematologic/Lymphatic: Bilateral leg swelling. Reports systems reviewed and no addt'l complaints, except as documented Rest 14 ROS are negative except as mentioned in HPI Vital Signs Vital Signs Vital Signs: 10/31/21 23:45 10/31/21 23:54 11/01/21 01:07 Temperature 97.8 F Temperature Source Temporal Pulse Rate 88 Respiratory Rate 16 Respiratory Effort Short of Breath Respiratory Depth Normal Respiratory Pattern Normal Blood Pressure 138/88 H Blood Pressure [BP] Blood Pressure Mean 104 Blood Pressure Mean [BP] Blood Pressure Source Blood Pressure Source [BP] Blood Pressure Position Blood Pressure Position [BP] Blood Pressure Location Blood Pressure Location [BP] Pulse Ox 97 91 94 Oxygen Delivery Method Room Air Nasal Cannula Nasal Cannula Oxygen Flow Rate (L/min) 2 2 11/01/21 01:28 11/01/21 01:55 11/01/21 03:28 Temperature 98.9 F 98.6 F 98.6 F Temperature Source Oral Oral Oral Pulse Rate 75 85 Respiratory Rate 16 16 Respiratory Effort Respiratory Depth Respiratory Pattern Blood Pressure 140/53 H 132/53 H Blood Pressure [BP] 132/53 H Blood Pressure Mean 82 79 Blood Pressure Mean [BP] 79 Blood Pressure Source Monitor Blood Pressure Source [BP] Monitor Blood Pressure Position Semi-Fowlers Blood Pressure Position [BP] Supine Blood Pressure Location Left Arm Blood Pressure Location [BP] Left Arm Pulse Ox 94 93 Oxygen Delivery Method Nasal Cannula Room Air Oxygen Flow Rate (L/min) 2 11/01/21 04:04 11/01/21 04:20 Temperature Temperature Source Pulse Rate 73 Respiratory Rate Respiratory Effort Normal Non-Labored Respiratory Depth Normal Respiratory Pattern Normal Blood Pressure Blood Pressure [BP] Blood Pressure Mean Blood Pressure Mean [BP] Blood Pressure Source Blood Pressure Source [BP] Blood Pressure Position Blood Pressure Position [BP] Blood Pressure Location Blood Pressure Location [BP] Pulse Ox Oxygen Delivery Method Room Air Oxygen Flow Rate (L/min) Weight Weight: 295 lb 13.765 oz Body Mass Index (BMI) 43.5 Physical Exam Narrative General: Alert, Oriented x3, Cooperative, morbid obesity BMI 43.7 kg/m? HEENT: Atraumatic, PERRLA, EOMI, Normocephalic Oral: No Gingival or Mucosal Lesions/ Ulcerations Neck: Supple, No JVD, Negative Carotid Bruits Lungs: Air entry diminished in bilateral lung bases. No crepitation/rhonchi Cardiovascular: Regular rate, Regular Rhythm, Normal S1, Normal S2, No murmurs Abdomen: Bowel Sounds Present, Soft, Non Tender, mild distention due to fat abdomen. Fluid thrill not appreciable : No renal angle tenderness. No suprapubic tenderness. Extremities: Bilateral leg edema, pitting right more than left, Capillary Refill Less than 3 Seconds Skin: No rashes, No breakdown Musculoskeletal: No Tenderness to Palpation of Joints or Extremities, muscle strength 4/5 at major joints of lower extremity Neurological: Cranial nerves II-XII grossly intact, DTR 2+/4 and Symmetrical, Neuro grossly intact Psych/Mental Status: Normal Affect, Appropriate Results Lab / Micro Data Result Diagrams: 11/01/21 00:03 11/01/21 00:03 Labs: Laboratory Results - last 24 hr 11/01/21 00:03: WBC 6.6, RBC 4.88, Hgb 14.8, Hct 45.7, MCV 93.6, MCH 30.3, MCHC 32.4, RDW Std Deviation 46.3 H, RDW Coeff of Jadon 13.6, Plt Count 172, MPV 10.2, Immature Gran % (Auto) 0.600, Neut % (Auto) 77.8 H, Lymph % (Auto) 17.4 L, [place] % (Auto) 1.4, Eos % (Auto) 2.3, Baso % (Auto) 0.5, Absolute Neuts (auto) 5.1, Absolute Lymphs (auto) 1.14, Nucleated RBC % 0 11/01/21 00:03: PT 24.3 H, INR 2.3 11/01/21 00:03: Sodium 138, Potassium 5.0, Chloride 106, Carbon Dioxide 28.0, Anion Gap 4 L, BUN 21 H, Creatinine 1.33 H, Estim Creat Clear Calc 47.99, Est GFR (MDRD) Af Amer 67, Est GFR (MDRD) Non-Af 56 L, BUN/Creatinine Ratio 15.8, Glucose 132 H, Calcium 8.3 L, Total Bilirubin 0.90, Direct Bilirubin 0.11, AST 33, ALT 23, Alkaline Phosphatase 72, Troponin I High Sens 7, Total Protein 7.6, Albumin 3.0 L, Globulin 4.6 H 11/01/21 00:03: Lactic Acid 1.9 11/01/21 00:03: B-Natriuretic Peptide 57.5 11/01/21 01:00: Urine Color Yellow, Urine Clarity Clear, Urine pH 5.0, Ur Specific Hines 1.020, Urine Protein 30 H, Urine Glucose (UA) Normal, Urine Ketones Negative, Urine Occult Blood 150 H, Urine Nitrite Negative, Urine Bilirubin Negative, Urine Urobilinogen Normal, Ur Leukocyte Esterase 25 H, Urine RBC 5-10 SEEN, Urine WBC 0-5 SEEN, Ur Squamous Epith Cells 0 SEEN, Urine Bacteria RARE, Urine Mucus 0 SEEN Micro: Microbiology 11/01/21 00:05 Nasal Secretion SARS-CoV-2 & FLU Antigen (Rapid) - Final Radiology Impression Chest X-Ray 11/01/21 00:00 IMPRESSION: 1. Borderline to mild canal with borderline heart failure. 2. No other evidence of active cardiopulmonary disease. 3. Mild hyperinflation. 4. Benign calcifications in the right hilar and right infrahilar regions. 5. Mild demineralization. Assessment & Plan Assessment/Plan (1) Acute on chronic heart failure with preserved ejection fraction (HFpEF): PLAN: 1. Acute on chronic HFpEF/diastolic heart failure exact exacerbating factor unclear possible nonadherence to fluid restriction: Patient is being admitted in PCU. Last echo in August 2016 shows EF 60% with preserved systolic function. Mild TR. PASP 28 mmHg. Normal aortic valve. Started on Lasix 40 mg IV twice daily. Heart failure core measures including intake and output, fluid restriction less than 1500 mL, daily weight monitoring, kidney and electrolytes monitoring. Patient does not have chest pain. Troponin ordered. 2D echo ordered tomorrow a.m. Right lower extremity more edematous than left, venous duplex of lower extremity ordered to rule out DVT. Patient follows Dr. Gilman. Last stress test in January 2017 was negative. 2. COPD, right upper lobe lung cancer status post radiotherapy, obstructive sleep apnea on CPAP: Patient follows Dr. Easton and Umu Falnagan, VEGETABLE CUTTER last visit 07/26/2021. Clinical assessment does not suggest COPD exacerbation or pneumonia. SARS-CoV-2 and flu antigen negative. Urinary antigens ordered. Blood cultures x2 ordered. Bronchodilator every 6 hourly, incentive spirometry and Pep for bronchopulmonary hygiene. Patient does not have indication for antibiotic now but follow cultures and if patient gets fever consider antibiotic. Dr. Easton note mentions that patient has non-small cell lung cancer diagnosed with bronchoscopic biopsy in [facility]. Previous PFT in 2019 revealed evidence of obstructive ventilatory impairment with recent completion in some mild [place]. 3. Paroxysmal A. fib status post ablation on warfarin: INR is 2.3. Continue warfarin, metoprolol and flecainide. Heart rate is controlled. Patient is in sinus rhythm. 4. Diabetes mellitus type 2: Accu-Chek before meals and at bedtime cover with Humalog sliding scale. Hold Metformin. 5. Dyslipidemia: Fasting profile a.m. today ordered. On atorvastatin. 6. Ulcerative colitis on mesalamine. Continued 7. Chronic kidney disease stage G3 A: Monitor kidney function electrolytes especially patient is started on diuretic IV furosemide. 8. Other multiple comorbidities include morbid obesity, chronic ex-smoker more than 30 pack years: Patient quit smoking. DVT prophylaxis: INR is 2.3. Continue warfarin. Living will/advanced directive/end of life care: Patient does have living will or advanced directive. His is power of deputy commonwealth's attorney for health. After discussion of benefits/risks procedures involved with full code, DNR CC arrest and DNR CC, the patient and his opted for full code. Patient does want artificial life support including intubation, tube feed, ventilator and/chest compression, central venous catheter, vasopressor and DC shock if needed Total time spent in [id number] encounter in discussion of advanced directive 16 minutes. Charges/Coding Visit Charges Inpatient E&M: 73727 Init Hosp L3 Procedures Hospitalists Procedures: 77103 Advncd Care Plan 30 Min
--- NOTE | 2021-11-01 05:04 | VDLE_ITS ---
Reason For Study: Swelling RIGHT LEFT GSV is normal. GSV is normal. CFV is compressible, spontaneous, phasic, CFV is compressible, spontaneous, phasic, competent and demonstrates normal competent, and demonstrates normal augmentation. augmentation. FV is compressible, spontaneous, phasic, FV is compressible, spontaneous, phasic, competent and demonstrates normal competent and demonstrates normal augmentation. augmentation. POP V is compressible, spontaneous, phasic, POP V is compressible, spontaneous, phasic, competent and demonstrates normal competent and demonstrates normal augmentation. augmentation. T/P Trunk is compressible. T/P Trunk is compressible. PTV is compressible. PTV is compressible. RT PerV is compressible. LT PerV is compressible. Procedure This is a venous duplex using B-mode, color flow and spectral Doppler. Exam performed portable in patient room. A preliminary report was called and/or faxed to EXPLOSIVE ORDNANCE MANAGER. VL/Venous Duplex US - Emmanuel Extrem Interpretation Summary No evidence for acute deep venous thrombosis bilateral lower extremities with p atent and compressible bilateral great saphenous veins. Ordering Physician: Cornelius Rich Referring Physician: Sj Wright Performed By: Ashlee Aragon RVT
[2021-11-01 05:18] LABS: Absolute Lymphocyte Count 0.69 X10^3/uL (0.83-4.51); Absolute Neutrophil Count 7.7 X10^3/uL (2.0-7.7); Basophil# 0.02 X10^3/uL; Basophil% 0.2 % (0-1); Eosinophil# 0.11 X10^3/uL; Eosinophils% 1.2 % (0-5); Hematocrit 39.6 % (40-54); Lymphocyte # 0.69 X10^3/ul (0.83-4.51); Lymphocyte % 7.6 % (19-41); Mean Corp Hgb Conc 32.8 g/dL (32-36); Mean Corpuscular Hgb 29.8 pg (27.0-32.0); Mean Corpuscular Volume 90.8 fL (80-94); Monocyte# 0.52 X10^3/uL; Monocyte% 5.7 % (0-10); NRBC Flagged by Analyzer 0 % (0-5); Neutrophil # 7.74 X10^3/uL (2.7-7.7); Neutrophil % 84.9 % (47-70); Platelet Count 155 K/mm3 (150-450); RBC Distribution Width CV 13.6 % (11.6-14.6); RBC Distribution Width SD 44.8 fl (35.1-43.9); Red Blood Count 4.36 M/mm3 (4.6-6.2); White Blood Count 9.1 K/mm3 (4.4-11.0)
[2021-11-01] MEDS: MESALAMINE 400 MG CAPSULE.DR 800 MG PO ×3 (05:41→21:42)
[2021-11-01 05:53] LABS: Troponin-I HS 10 pg/mL (3.0-78.0)
--- NOTE | 2021-11-01 05:55 | ECHOCS_ITS ---
Reason For Study: Heart Failure Procedure This was a 2D Doppler, Color Flow transthoracic echocardiogram. Contrast injection was performed. Exam performed portable in patient room. Left Ventricle Normal LV size. The estimated ejection fraction is 65 %. No evidence for diastolic dysfunction. No regional wall motion abnormalities noted. Right Ventricle Normal RV size. Normal systolic function. Atria Normal left atrium. Normal right atrium. No doppler evidence for ASD. Mitral Valve Mild focal mitral valve calcification of the anterior leaflet. There is no mitral valve stenosis. Trivial mitral valve insufficiency. Tricuspid Valve There is no tricuspid stenosis. Unable to estimate RV systolic pressure due to insufficient tricuspid regurgitant envelope. Aortic Valve Trisinus/trileaflet aortic valve. Mild diffuse aortic valve thickening. There is no aortic stenosis. No aortic valve insufficiency. Pulmonic Valve There is no pulmonic valvular stenosis. No pulmonic valve insufficiency. Great Vessels Normal aortic root. Pericardium/Pleural No pericardial effusion. MMode/2D Measurements & Calculations LVIDd: 5.3 cm IVSd: 1.2 cm Ao root diam: 3.3 cm LVIDs: 2.6 cm LVPWd: 1.2 cm RVDd: 3.9 cm FS: 52.0 % LAV(MOD-bp): 64.5 ml LVAd ap4: 37.5 cm2 SV(MOD-sp4): 92.3 ml LAV(MOD-bp) Indexed: 26.5 ml/m2 LVLd ap4: 8.3 cm LAV(MOD-sp2): 62.1 ml EDV(MOD-sp4): 138.1 ml LAV(MOD-sp4): 60.3 ml EDV(sp4-el): 143.2 ml LVAs ap4: 19.3 cm2 LVLs ap4: 6.8 cm ESV(MOD-sp4): 45.8 ml ESV(sp4-el): 46.8 ml EF(MOD-sp4): 66.9 % EF(sp4-el): 67.3 % SV(sp4-el): 96.5 ml LA A4 area: 22.2 cm2 LA dimension(2D): 4.5 cm RA A4 area: 17.2 cm2 Doppler Measurements & Calculations MV E max jw: 79.6 cm/sec Lat Peak E' Jw: 9.4 cm/sec Med Peak E' Jw: 5.4 cm/sec MV A max jw: 83.4 cm/sec E/E' lat: 8.5 E/E' med: 14.9 MV E/A: 0.95 Ao V2 max: 181.2 cm/sec LV V1 max: 123.1 cm/sec PA V2 max: 79.3 cm/sec Ao max P.1 mmHg LV V1 max P.1 mmHg Ao V2 mean: 126.4 cm/sec Ao mean P.2 mmHg Ao V2 VTI: 35.1 cm TR max jw: 302.9 cm/sec TR max P.7 mmHg ECHO/Echo Complete W/ Contrast Interpretation Summary The estimated ejection fraction is 65 %. No evidence for diastolic dysfunction. Trivial mitral valve insufficiency. Ordering Physician: Cornelius Rich Referring Physician: Sj Wright Performed By: Adriana Palacios, RDCS, RVT
[2021-11-01 05:56] LABS: Anion Gap 4 (5-15); BUN 19 mg/dL (7-18); BUN/Creat Ratio 13.9 RATIO (10-20); Calcium,Total 8.2 mg/dL (8.5-10.1); Chloride 105 mmol/L (98-107); Cholesterol 109 mg/dL (200); Creatinine, Serum 1.37 mg/dL (0.70-1.30); EST Glomerular Filtration Rate 54 mL/min (>60); Est Glom Filt Rate - Afr Amer 65 mL/min (>60); Estimated Creatinine Clearance 46.59 ml/min; Glucose 171 mg/dL (74-106); High Density Lipoprotein 30 mg/dL; Magnesium 1.9 mg/dL (1.6-2.6); Potassium 3.9 mmol/L (3.5-5.1); Sodium Level 138 mmol/L (136-145); Thyroid Stim Hormone (TSH) 1.87 uIU/mL (0.358-3.74); Triglycerides 76 mg/dL; Very Low Density Lipoprotein 15 mg/dL (5-40)
[2021-11-01 06:46] LABS: Bedside Glucose 149 mg/dL (74-106)
[2021-11-01] MEDS: Ipratropium/Albuterol Sulfate 3 ML AMPUL.NEB INHALATION ×4 (07:05→19:37)
[2021-11-01] MEDS: Flecainide 100 MG Tablet 50 MG PO ×2 (08:30→21:42)
[2021-11-01] MEDS: Potassium Chloride Oral Tablet 20 MEQ PO (08:31)
[2021-11-01] MEDS: Metoprolol Tartrate 50 MG Tablet PO ×2 (08:37→21:42)
[2021-11-01] MEDS: Doxazosin 1 MG Tablet 1.5 MG PO ×2 (09:36→21:42)
[2021-11-01] MEDS: 0.9% Saline Lock 10 ML Syringe IV ×3 (09:37→21:43)
[2021-11-01] MEDS: Furosemide 40 MG Tablet PO (09:38)
[2021-11-01] MEDS: Insulin Lispro 100 UNIT/ML INSULN.PEN SC ×3 (11:09→21:42)
[2021-11-01 11:20] LABS: Bedside Glucose 164 mg/dL (74-106)
--- NOTE | 2021-11-01 11:35 | CASEMGMT ---
RN CM Face to Face with patient for initial transition planning/care coordination assessment. RN CM introduced self and role at [facility]. Patient lying in bed, alert and oriented, at bedside. Patient willing to participate in assessment and is able to answer all questions appropriately. Care providers, pharmacy, and demographics verified. Patient wishes to discharge home, denies need for home health at this time. Will monitor progress with therapy for possible HHC vs Outpt PT. Patient states he has no further needs or concerns at this time. CM to follow for discharge planning needs that may arise. PCP: Kyle GAINES Specialists: Rustam, bander; Pedrito, oncologist Preferred Pharmacy: [facility] Insurance: [employer] ? Prescription Benefit: yes Living Will/HPOA: yes, Velia Oshea LNOK: Living Arrangements: Patient lives with in a single story home with 2 steps to enter. Transportation: self, DME/HHC: Patient states he has raised toilet, cane, crutches, grab bars, walker, and cpap at home. No previous HHC or SNF Disposition Plan: Patient to discharge home with family support and follow-up plans in place. Will monitor for HHC vs outpatient therapy pending progress with therapy. Ashlee POLK, RN, CM
--- NOTE | 2021-11-01 14:10 | PN.HOSP_ITS ---
Hospitalist Note Patient was admitted early this morning for COPD exacerbation versus acute on chronic heart failure with preserved ejection fraction. Patient is currently on room air at 92%. An echocardiogram was performed and showed an EF of 65% with no evidence for diastolic dysfunction and trivial mitral valve insufficiency. His BNP was not elevated and I therefore have discontinued his IV scheduled Lasix placed him back on his home dose of 40 mg daily. I highly suspect this is more likely a COPD exacerbation and we will continue current therapy and add Solu-Medrol. Serum creatinine appears to be mildly elevated with CKD stage IIIb however it appears to be baseline. Patient does have a history of COPD as well as sleep apnea and lung cancer and follows with Dr. Easton in the outpatient setting. It appears that his last visit was with a nurse practitioner on 07/08/2021. He had been undergoing radiation therapy as an outpatient for his lung cancer. Records were reviewed also from [facility] facilities and appears he met with cardiothoracic surgery in May 2021 and pathology reports were pending at that time with possible wedge resection versus lobectomy to be performed. I want to review further his treatment progress with regards to this.
[2021-11-01 16:36] LABS: Bedside Glucose 234 mg/dL (74-106)
[2021-11-01] MEDS: Glucerna Shake 120 ML LIQUID PO (18:10)
[2021-11-01] MEDS: Atorvastatin Calcium 40 MG Tablet PO (21:42)
[2021-11-01] MEDS: guaiFENesin 1,200 MG Tablet 1200 MG PO (21:42)
[2021-11-01 22:11] LABS: Bedside Glucose 347 mg/dL (74-106)
[2021-11-02] VITALS (17 sets, daily range): BP systolic 124–149; BP diastolic 50–70; PULSE 67–93; RESP 17–21; TEMP 36.1–37; O2SAT 91–95
--- NOTE | 2021-11-02 03:09 | CPS ---
Pt placed on sleep lab cpap machine with a full face mask. Cpap of 11. 2L bled in
[2021-11-02 05:44] LABS: Absolute Lymphocyte Count 0.74 X10^3/uL (0.83-4.51); Absolute Neutrophil Count 9.2 X10^3/uL (2.0-7.7); Basophil# 0.01 X10^3/uL; Basophil% 0.1 % (0-1); Hematocrit 40.8 % (40-54); Hemoglobin 13.4 g/dL (13.0-16.5); Lymphocyte # 0.74 X10^3/ul (0.83-4.51); Lymphocyte % 7.2 % (19-41); Mean Corp Hgb Conc 32.8 g/dL (32-36); Mean Corpuscular Hgb 29.3 pg (27.0-32.0); Mean Corpuscular Volume 89.1 fL (80-94); Mean Platelet Vol. 10.2 fl (6.2-12.0); Monocyte# 0.22 X10^3/uL; Monocyte% 2.1 % (0-10); NRBC Flagged by Analyzer 0 % (0-5); Neutrophil # 9.22 X10^3/uL (2.7-7.7); Platelet Count 169 K/mm3 (150-450); RBC Distribution Width CV 13.8 % (11.6-14.6); RBC Distribution Width SD 44.6 fl (35.1-43.9); Red Blood Count 4.58 M/mm3 (4.6-6.2); White Blood Count 10.3 K/mm3 (4.4-11.0)
[2021-11-02 06:09] LABS: Anion Gap 7 (5-15); BUN 28 mg/dL (7-18); BUN/Creat Ratio 20.4 RATIO (10-20); Calcium,Total 8.3 mg/dL (8.5-10.1); Chloride 102 mmol/L (98-107); Creatinine, Serum 1.37 mg/dL (0.70-1.30); EST Glomerular Filtration Rate 54 mL/min (>60); Est Glom Filt Rate - Afr Amer 65 mL/min (>60); Estimated Creatinine Clearance 46.59 ml/min; Glucose 256 mg/dL (74-106); Potassium 4.2 mmol/L (3.5-5.1); Sodium Level 135 mmol/L (136-145)
[2021-11-02] MEDS: Insulin Lispro 100 UNIT/ML INSULN.PEN SC ×4 (06:20→21:20)
[2021-11-02] MEDS: MESALAMINE 400 MG CAPSULE.DR 800 MG PO ×2 (06:20→21:21)
[2021-11-02] MEDS: 0.9% Saline Lock 10 ML Syringe IV ×3 (06:20→21:21)
[2021-11-02 07:06] LABS: Bedside Glucose 246 mg/dL (74-106)
[2021-11-02] MEDS: Ipratropium/Albuterol Sulfate 3 ML AMPUL.NEB INHALATION ×5 (07:38→23:00)
[2021-11-02] MEDS: Glucerna Shake 120 ML LIQUID PO ×3 (08:05→16:14)
[2021-11-02] MEDS: Furosemide 40 MG Tablet PO (08:05)
[2021-11-02] MEDS: Potassium Chloride Oral Tablet 20 MEQ PO (08:05)
[2021-11-02] MEDS: guaiFENesin 1,200 MG Tablet 1200 MG PO ×2 (08:06→21:21)
[2021-11-02] MEDS: Doxazosin 1 MG Tablet 1.5 MG PO ×2 (08:06→21:21)
[2021-11-02] MEDS: Metoprolol Tartrate 50 MG Tablet PO ×2 (08:06→21:21)
[2021-11-02] MEDS: Flecainide 100 MG Tablet 50 MG PO ×2 (08:06→21:20)
[2021-11-02 11:26] LABS: Bedside Glucose 329 mg/dL (74-106)
[2021-11-02 13:26] LABS: Bedside Glucose 340 mg/dL (74-106)
--- NOTE | 2021-11-02 15:58 | PCM.PN.HOSP ---
Subjective Subjective Mr. Edmonds states that he is feeling about 80% better since his admission. He does not wear daytime oxygen however and remains on 1 to 2 L. Current saturations are 93% on 1 L and he would like to continue to wean this. He states he has follow-up with his oncologist in February with regards to his lung cancer and underwent 5 radiation treatments. There are no current plans for cardiothoracic surgery for resection. He also follows with Dr. Easton for pulmonary. He indicates that shortness of breath is much better. Objective Data Objective Data Vital Signs: Vital Signs Temp Pulse Resp BP Pulse Ox 98.0 F 83 18 131/50 H 93 11/02/21 14:05 11/02/21 14:57 11/02/21 14:05 11/02/21 14:05 11/02/21 14:05 Oxygen Flow Rate (L/min) 1 Oxygen Delivery Method Nasal Cannula Weight: 133.7 kg Body Mass Index (BMI) 43.5 Intake & Output: Intake and Output for Last 24 Hours 10/31/21 11/01/21 11/02/21 23:59 23:59 23:59 Intake Total 870 / 1120 610 / 610 Output Total 2075 / 2225 500 / 500 Balance -1205 / -1105 110 / 110 Lab / Micro Data Result Diagrams: 11/02/21 04:23 11/02/21 04:23 Labs: Laboratory Results - last 24 hr 11/01/21 16:25: POC Glucose 234 H 11/01/21 21:39: POC Glucose 347 H 11/02/21 04:23: WBC 10.3, RBC 4.58 L, Hgb 13.4, Hct 40.8, MCV 89.1, MCH 29.3, MCHC 32.8, RDW Std Deviation 44.6 H, RDW Coeff of Jadon 13.8, Plt Count 169, MPV 10.2, Immature Gran % (Auto) 0.600, Neut % (Auto) 90.0 H, Lymph % (Auto) 7.2 L, [place] % (Auto) 2.1, Eos % (Auto) 0.0, Baso % (Auto) 0.1, Absolute Neuts (auto) 9.2 H, Absolute Lymphs (auto) 0.74 L, Nucleated RBC % 0 11/02/21 04:23: Sodium 135 L, Potassium 4.2, Chloride 102, Carbon Dioxide 26.0, Anion Gap 7, BUN 28 H, Creatinine 1.37 H, Estim Creat Clear Calc 46.59, Est GFR (MDRD) Af Amer 65, Est GFR (MDRD) Non-Af 54 L, BUN/Creatinine Ratio 20.4 H, Glucose 256 H, Calcium 8.3 L 11/02/21 06:17: POC Glucose 246 H 11/02/21 10:56: POC Glucose 329 H 11/02/21 13:10: POC Glucose 340 H Micro: Microbiology 11/01/21 09:25 Sputum, Expectorated/Coughed Gram Stain - Final 11/01/21 09:25 Sputum, Expectorated/Coughed Respiratory Culture - Preliminary Appears to be normal respiratory baljinder. Further studies to follow. 11/01/21 01:00 Urine, Clean Catch Urine Culture - Final Mixed Gram Positive Organisms 11/01/21 01:00 Urine, Clean Catch Legionella Antigen - Final 11/01/21 01:00 Urine, Clean Catch Streptococcus pneumoniae Antigen (M - Final 11/01/21 00:05 Nasal Secretion SARS-CoV-2 & FLU Antigen (Rapid) - Final Radiography Diagnostic Testing: Radiology Impression Venous Doppler Study 11/01/21 05:04 Interpretation Summary No evidence for acute deep venous thrombosis bilateral lower extremities with patent and compressible bilateral great saphenous veins. Ordering Physician: Cornelius Rich Referring Physician: Sj Wright Performed By: Ashlee Aragon RVT Physical Exam Const alert, oriented x3, no apparent distress and well nourished Constitutional Narrative: Older morbidly obese white male sitting up a chair at the bedside, appears comfortable nontoxic, watching television Exam Limitations: no limitations Nutritional Appearance: morbidly obese HEENT head/scalp atraumatic and moist oral mucous membranes HEENT Narrative: Dentition is poor, Mallampati is 3, no thrush Head and Scalp: normocephalic Resp normal respiratory effort, no retractions and no use of accessory muscles Resp Narrative: Significantly diminished diffusely but clear, no signs of respiratory distress Auscultation: Negative for crackles, rales, rhonchi or wheezes Cardio regular rate, regular rhythm, S1 normal heart sound, S2 normal heart sound, no murmurs, no rub, no gallops, no clicks and no JVD GI normal to inspection, nondistended, normoactive bowel sounds, soft to palpation, non-tender and non-distended Extremity Peripheral Pulses: Yes pulses 2+ throughout Neuro oriented x3, moves all extremities and no focal motor deficits Sensorium / Orientation: awake and alert Speech: speech normal Assessment & Plan Assessment/Plan (1) Acute respiratory failure with hypoxia: (2) Acute exacerbation of COPD with asthma: PLAN: Acute hypoxic respiratory failure secondary to acute exacerbation of COPD -Patient is on room air at baseline during the day and wears 2 L at night for sleeping -At maximum was on 3 L nasal cannula but currently has been weaned to 1 L nasal cannula -Sinew to wean as able -Continue incentive spirometer and Acapella -Continue pulmonary toilet -Continue Solu-Medrol with transition to prednisone tomorrow -Patient encouraged to followed up with Dr. 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 Gillespie and has repeat follow-up with him in February -No current chemotherapy being performed Paroxysmal atrial fibrillation -Continue flecainide -Tinea metoprolol -Continue Coumadin -INR was therapeutic on 11/01/2021 at 2.3 which is the same as his INR on 10/21/2021 -Repeat INR in a.m. to assure stability -Has had previous ablation done at [facility] Hypertension -Continue Lasix -Continue metoprolol Hyperlipidemia -Continue statin CKD stage IIIb -Baseline serum creatinine appears to be 1.3-1.45 -Current serum creatinine is 1.37 -Continue to monitor with diuresis DM-2 -Continue to hold home oral agents -Blood sugars are elevated secondary to steroid use at this time -Blood sugar should improve as we start to wean steroids -Continue sliding scale -Continue Accu-Cheks -Continue carb controlled diet BPH -Continue prazosin Ulcerative colitis -Continue mesalamine DVT prophylaxis -Patient is fully anticoagulated with therapeutic INR CODE STATUS -Full code Charges/Coding Visit Charges Inpatient E&M: 23026 Subs Hosp L2
[2021-11-02 16:27] LABS: Bedside Glucose 392 mg/dL (74-106)
[2021-11-02] MEDS: Nystatin Powder 15gm Bottle 1 APPLIC TOPICAL (21:22)
[2021-11-02] MEDS: Atorvastatin Calcium 40 MG Tablet PO (21:22)
[2021-11-03] VITALS (13 sets, daily range): BP systolic 124–139; BP diastolic 51–78; PULSE 55–77; RESP 18–26; TEMP 36.4–37; O2SAT 88–94
[2021-11-03 00:51] LABS: Bedside Glucose 367 mg/dL (74-106)
[2021-11-03] MEDS: Insulin Lispro 100 UNIT/ML INSULN.PEN SC ×2 (05:27→11:10)
[2021-11-03 05:36] LABS: Bedside Glucose 273 mg/dL (74-106)
[2021-11-03 06:56] LABS: Anion Gap 8 (5-15); BUN 37 mg/dL (7-18); BUN/Creat Ratio 25.9 RATIO (10-20); Calcium,Total 8.2 mg/dL (8.5-10.1); Chloride 103 mmol/L (98-107); Creatinine, Serum 1.43 mg/dL (0.70-1.30); EST Glomerular Filtration Rate 51 mL/min (>60); Est Glom Filt Rate - Afr Amer 62 mL/min (>60); Estimated Creatinine Clearance 44.63 ml/min; Glucose 269 mg/dL (74-106); Potassium 4.1 mmol/L (3.5-5.1); Sodium Level 136 mmol/L (136-145)
[2021-11-03] MEDS: Ipratropium/Albuterol Sulfate 3 ML AMPUL.NEB INHALATION ×2 (07:01→11:18)
[2021-11-03] MEDS: MESALAMINE 400 MG CAPSULE.DR 800 MG PO (08:16)
[2021-11-03] MEDS: guaiFENesin 1,200 MG Tablet 1200 MG PO (08:17)
[2021-11-03] MEDS: Doxazosin 1 MG Tablet 1.5 MG PO (08:17)
[2021-11-03] MEDS: Potassium Chloride Oral Tablet 20 MEQ PO (08:17)
[2021-11-03] MEDS: Metoprolol Tartrate 50 MG Tablet PO (08:18)
[2021-11-03] MEDS: Furosemide 40 MG Tablet PO (08:18)
[2021-11-03] MEDS: Flecainide 100 MG Tablet 50 MG PO (08:19)
[2021-11-03] MEDS: Nystatin Powder 15gm Bottle 1 APPLIC TOPICAL (08:20)
[2021-11-03] MEDS: Glucerna Shake 120 ML LIQUID PO ×2 (08:22→11:10)
--- NOTE | 2021-11-03 09:47 | CASEMGMT ---
Addendum entered by Ashlee Brown 11/03/21 12:04: Per Mariajose NORRIS, pt does not qualify for home oxygen. Per therapy notes, no further therapy needed. Rosanne NORRIS CM Original Note: Pt to be sent home with pulse ox from [facility] with instruction from RN. ENZO to follow for home oxygen need. Rosanne NORRIS CM
[2021-11-03 11:26] LABS: Bedside Glucose 340 mg/dL (74-106)
--- NOTE | 2021-11-03 12:49 | DS.PCM_ITS ---
Providers Date of Admission: 11/01/21 Date of Discharge: 11/03/21 Primary Care Physician: EDER Helms Reason For Visit: CHF,COPD LUNG CA Diagnosis Discharge Diagnosis (1) Acute respiratory failure with hypoxia: Status: Acute Code(s): J96.01 - Acute respiratory failure with hypoxia (2) Acute exacerbation of COPD with asthma: Status: Chronic Code(s): J44.1 - Chronic obstructive pulmonary disease with (acute) exacerbation; J45.901 - Unspecified asthma with (acute) exacerbation Medications at Discharge Home Medications potassium chloride 20 meq PO DAILY 09/27/15 atorvastatin 40 mg PO QHS 08/20/16 diphenhydramine HCl 25 mg PO Q6H PRN PRN 08/20/16 metformin 500 mg tablet 500 mg PO BID 05/09/19 furosemide 20 mg tablet 40 mg PO DAILY tab 04/01/20 nystatin-triamcinolone 100,000 unit/gram-0.1 % topical ointment 1 applic TOPICAL DAILY PRN 04/01/20 prazosin 2 mg capsule 2 mg PO BID #180 cap 11/06/20 flecainide 50 mg tablet 50 mg PO Q12H #180 tab 11/09/20 mesalamine 800 mg tablet,delayed release 800 mg PO BID tablet 11/11/20 metoprolol tartrate 50 mg PO BID 02/17/21 warfarin 2.5 mg tablet 2.5 mg PO DAILY #90 tab 05/26/21 nystatin [Nyamyc] 1 applic TOPICAL BID #15 g 11/03/21 prednisone 10 mg PO DAILY #30 tab 11/03/21 umeclidinium-vilanterol [Anoro Ellipta] 1 inh INHALATION Q24H #60 ea 11/03/21 Hospital Course Procedures 2-D Echocardiogram and - (Lower extremity Dopplers) Summary of Care Provided Minutes Spent on Discharge: 38 Hospital Course: Mr. Oshea is a 76-year-old white male who presented to the emergency department at [facility] on 11/01/2021 with a chief complaint of shortness of breath. His shortness of breath had been present for approximately 2 to 3 days and had worsening during that time. And that is what prompted evaluation the emergency department. The patient indicates he has chronic shortness of breath with mild exertion secondary to his history of COPD, SILVER, morbid obesity, and lung cancer which was recently diagnosed within the last 12 months. Upon presentation he complained of a mild chronic cough with no change in sputum production and denied any fever or chills. In the emergency department his vital signs were overall stable and he initially was able to be on room air however he did decompensate and require supplemental oxygen as high as 4 L during his hospitalization. There is initial concern that he might have some heart failure however his chest x-ray was not consistent with congestion and he had a normal BNP. As noted he was initially admitted for heart failure and was initiated on Lasix as well as strict I's and O's with fluid restriction of 1500 cc a day, daily weights and a 2D echocardiogram was ordered. Given his right lower extremity edema that I suspect is chronic based on the skin changes and discussion with him a venous duplex of the lower extremity was ordered and was negative for bilateral lower extremity DVTs. His echocardiogram was performed o n 11/01/2021 and showed a normal EF at 65% with no evidence of diastolic dysfunction. Right ventricular systolic pressures were not reported however I would not be surprised if he has some right-sided heart failure given his history. Given the echo findings and his normal BNP we transition his treatment from treatment for decompensated heart failure to COPD exacerbation even though he was not significantly wheezy on exam. He was placed on scheduled and as needed nebulizers along with steroids. Antibiotics did not feel to be warranted at this time given his no change in sputum production. He improve dramatically in the 48 hours after the initiation of steroids then his oxygen weaned from 4 L to 0 and that time frame. An ambulatory pulse ox was performed and he was found to have an oxygen saturation of 92% at rest and 90% with ambulation and therefore did not qualify for home oxygen. He is to continue his home CPAP as ordered. Given his dramatic improvement in the fact that he was no longer requiring oxygen and he was stable for discharge. I discussed this case with the on-call bottle packer with regards to initiation of an inhaler and he recommended the initiation of Anoro. A prescription for Anoro Ellipta as well as a prednisone taper was faxed to his pharmacy prior to discharge. He was also found to have right-sided axillary candidiasis for which we initiated nystatin powder and good results were obtained. He therefore was discharged with nystatin powder for this as well. He was discharged home in stable condition on 11/03/2021. He already has an appointment scheduled with Dr. Easton and was instructed to follow-up as scheduled. He has follow-up with Dr. Gillespie with regards to his lung cancer in February of this year and we encouraged follow-up. We did recommend he follow-up with his primary care physician within the next 2 weeks. Discharge diagnoses: Acute hypoxic respiratory failure secondary to acute exacerbation of COPD SILVER Lung cancer PAF Hypertension Hyperlipidemia CKD stage IIIb DM-2 BPH Ulcerative colitis Morbid obesity Physical Exam Const alert, oriented x3, no apparent distress and well nourished Constitutional Narrative: Older morbidly obese white male sitting up a chair at the bedside, appears comfortable nontoxic, watching television, is at bedside General Appearance: cooperative, comfortable, well kempt and well developed Orientation / Consciousness: awake Exam Limitations: no limitations Nutritional Appearance: morbidly obese HEENT normocephalic, head/scalp atraumatic and moist oral mucous membranes HEENT Narrative: Mildly hard of hearing, Mallampati is 3, no thrush Eyes PERRL, EOMs intact bilaterally and conjunctivae normal Eyes Narrative: No scleral icterus Neck no lymphadenopathy, supple, no JVD and no carotid bruits Resp normal respiratory effort, no retractions, no use of accessory muscles and clear to auscultation bilaterally Resp Narrative: Diffusely diminished but clear Auscultation: Negative for crackles, rales, rhonchi or wheezes Cardio regular rate, regular rhythm, S1 normal heart sound, S2 normal heart sound, no murmurs, no rub, no gallops, no clicks and no JVD GI normal to inspection, nondistended, normoactive bowel sounds, soft to palpation, non-tender and non-distended Extremity no clubbing, cyanosis or edema Extremity Narrative: Pedal pulses are 2+ Skin no wounds, skin turgor normal and no jaundice Skin Narrative: Erythema and right axillary area consistent with candidiasis Neuro oriented x3, CN's II-XII intact bilaterally, moves all extremities and no focal motor deficits Neuro Narrative: Patient ambulates independently throughout the room Sensorium / Orientation: awake and alert Speech: speech normal Motor Exam: strength 5/5 throughout Psych affect normal Weight / BMI Weight Weight: 134.5 kg Body Mass Index (BMI) 43.5 ABG / Lab / Microbiology Data Result Diagrams: 11/02/21 04:23 03/30/22 06:23 Laboratory: Laboratory Results - last 24 hr 11/02/21 13:10: POC Glucose 340 H 11/02/21 16:07: POC Glucose 392 H 11/02/21 21:19: POC Glucose 367 H 11/03/21 05:26: POC Glucose 273 H 11/03/21 06:23: Sodium 136, Potassium 4.1, Chloride 103, Carbon Dioxide 25.0, Anion Gap 8, BUN 37 H, Creatinine 1.43 H, Estim Creat Clear Calc 44.63, Est GFR (MDRD) Af Amer 62, Est GFR (MDRD) Non-Af 51 L, BUN/Creatinine Ratio 25.9 H, Glucose 269 H, Calcium 8.2 L 11/03/21 11:08: POC Glucose 340 H Microbiology: Microbiology 11/01/21 00:25 Blood Culture (Wb) - Left Hand Blood Culture - Preliminary No growth in 48 hours. 11/01/21 09:25 Sputum, Expectorated/Coughed Gram Stain - Final 11/01/21 09:25 Sputum, Expectorated/Coughed Respiratory Culture - Final Mixed normal respiratory baljinder. No Streptococcus pneumoniae, beta-hemolytic Streptococcus or Staphylococcus aureus isolated. 11/01/21 00:03 Blood Culture (Wb) - Right Hand Blood Culture - Preliminary No growth in 48 hours. 11/01/21 01:00 Urine, Clean Catch Urine Culture - Final Mixed Gram Positive Organisms 11/01/21 01:00 Urine, Clean Catch Legionella Antigen - Final 11/01/21 01:00 Urine, Clean Catch Streptococcus pneumoniae Antigen (M - Carolee l 11/01/21 00:05 Nasal Secretion SARS-CoV-2 & FLU Antigen (Rapid) - Final D/C Instructions Discharge Diet: Low fat / Low cholesterol, 1800 Calorie Control Diet, 8 Cup Fluid Restriction and 2000 mg Sodium Diet Discharge Activity: Return to Normal Activity Meaningful Use Info Meaningful Use Diagnoses (Choose all that apply): None applicable Discharge Plan Admission Admit Date/Time: 11/01/21 02:41 Primary Reason for Your Visit: Shortness of breath Attending Provider: Sarah Major Primary Care Provider: Fransisca Wright Discharge Orders/Prescriptions Prescriptions: New nystatin [Nyamyc] 100,000 unit/gram Powder 1 applic topical BID Qty: 15 RF: 0 Anoro Ellipta 62.5-25 mcg/actuation blister with device 1 inh inhalation Q24H Qty: 60 RF: 0 prednisone 10 mg tablet 10 mg PO DAILY Qty: 30 RF: 0 Continued metformin 500 mg tablet 500 mg PO BID RF: 0 furosemide 20 mg tablet 40 mg PO DAILY RF: 0 nystatin-triamcinolone 100,000-0.1 unit/gram-% ointment 1 applic TOPICAL DAILY PRN (Reason: Itching) RF: 0 warfarin 2.5 mg tablet 2.5 mg PO DAILY Qty: 90 RF: 3 potassium chloride 20 MEQ tablet 20 meq PO DAILY RF: 0 mesalamine 800 mg tablet,delayed release (DR/EC) 800 mg PO BID RF: 0 atorvastatin 40 MG tablet 40 mg PO QHS RF: 0 diphenhydramine HCl 25 MG capsule 25 mg PO Q6H PRN PRN (Reason: Allergies) RF: 0 metoprolol tartrate 100 mg tablet 50 mg PO BID RF: 0 prazosin 2 mg capsule 2 mg PO BID Qty: 180 RF: 3 flecainide 50 mg tablet 50 mg PO Q12H Qty: 180 RF: 3 Referrals / Follow Up: Vikram Easton DO [STAFF PHYSICIAN] - 01/11/22 2:15 pm (As scheduled) Dannie Gillespie MD [STAFF PHYSICIAN] - See Referral Note (As scheduled) Fransisca Wright PA [Primary Care Provider] - 11/12/21 3:20 pm Disposition Disposition (needs filled in before D/C Order can be placed): Home, Self Care Charges/Coding Visit Charges Inpatient E&M: 71544 Disch Hosp
--- NOTE | 2021-11-05 13:16 | CASEMGMT ---
RN CM: Received notification that pt's prescription for Anoro Ellipta required a Prior Auth. Covermymeds fax received from [facility]'s pharmacy and attempted to process through the covermymeds website on 11/04/21. Results returns as not able to be processed and to call the number on the back of pt's card. This RN CM called the number on pt's [employer] prescription coverage card to begin the prior auth process. Was notified by Tiffany that Anoro Ellipta is not on the plan's formulary but Stiolto Respimat is a covered formulary alternative. This RN CM contact Dr. Hawkins's office as Dr. Major of off service. Dr. Hawkins's nurse to contact Dr. Hawkins regarding a new prescription for Stiolto Respimat or for additional rationale for Anoro Ellipta prior auth. This RN CM contacted pt to update pt on the status of the prior authorization. Pt expressed understanding. Pt denies any c/o SOB, states he has been checking his PO which has been running 92-93%. Pt does c/o of a raspy throat but states overall he does not feel too bad. Pt denies any further questions or concerns at this time. Will continue to follow to facilitate receipt of medication. Jack Oropeza RN CM
--- NOTE | 2021-11-05 14:49 | CASEMGMT ---
MYRNA GIRALDO Follow-up: per Winnie at Dr. Hawkins's office, a prescription for Stiolto Respimat has been sent to [facility] [place] [facility]. This MYRNA CM notified pt and he expressed understanding and appreciation. Pt denies any further questions or concerns. Jack Oropeza RN CM
== END 2021-11-03 14:06 | disposition home or self-care (01) | DRG 190 ==
LOC: ED 11-01 01:35 → PCU 11-01 02:50
PROVIDERS: Admitting Provider Internal Medicine; Emergency Provider Emergency Medicine; PCP Physician Assistant; Visit Provider Internal Medicine
DX: J44.1 Chronic obstructive pulmonary disease with (acute) exacerbation (principal); C34.90 Malignant neoplasm of unspecified part of unspecified bronchus or lung; I50.33 Acute on chronic diastolic (congestive) heart failure; I13.0 Hypertensive heart and chronic kidney disease with heart failure and stage 1 through stage 4 chronic kidney disease, or unspecified chronic kidney disease; K51.90 Ulcerative colitis, unspecified, without complications; E11.22 Type 2 diabetes mellitus with diabetic chronic kidney disease; J96.01 Acute respiratory failure with hypoxia; I48.0 Paroxysmal atrial fibrillation; Z68.41 Body mass index [BMI] 40.0-44.9, adult; E66.01 Morbid (severe) obesity due to excess calories; N18.32 Chronic kidney disease, stage 3b; J45.901 Unspecified asthma with (acute) exacerbation; G47.33 Obstructive sleep apnea (adult) (pediatric); E78.5 Hyperlipidemia, unspecified; E78.00 Pure hypercholesterolemia, unspecified; N40.0 Benign prostatic hyperplasia without lower urinary tract symptoms; I44.0 Atrioventricular block, first degree; Z79.01 Long term (current) use of 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s; Z87.891 Personal history of nicotine dependence; Z96.643 Presence of artificial hip joint, bilateral; Z66 Do not resuscitate; Z92.3 Personal history of irradiation; Z79.84 Long term (current) use of oral hypoglycemic drugs; Z79.899 Other long term (current) drug therapy; I49.3 Ventricular premature depolarization; B37.9 Candidiasis, unspecified
CPT/HCPCS: 36415; 71045; 80048; 80061; 80076; 81001; 82962; 83605; 83735; 83880; 84443; 84484; 85025; 85610; 87040; 87070; 87086; 87088; 87205; 87428; 87449; 93005; 93306; 93970; 94640; 94660; 94667; 94762; 96374; 96375; 96376; 97162; 97166; 99218; 99251; 99285; Q9957; A4216; C8929; G0378; G0463; J1940

== ENCOUNTER 2021-11-19 13:00 | Outpatient (RCR) | payer MEDICARE, SELFPAY ==
[2021-11-05 02:48] VITALS: BMI 44.6
[2021-11-19 13:10] LABS: INR Fingerstick 2.6; Prothrombin Time Fingerstick 30.3 SEC (11.7-14.9)
== END 2021-11-19 18:00 | disposition home or self-care (01) ==
LOC: LAB 13:00
PROVIDERS: PCP Physician Assistant; Referring Provider Internal Medicine Cardiovascular Disease; Visit Provider Internal Medicine Cardiovascular Disease
DX: Z79.01 Long term (current) use of 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s (principal)
CPT/HCPCS: 36416; 85610

== ENCOUNTER 2021-12-14 13:57 | Outpatient (RCR) | payer MEDICARE, SELFPAY ==
[2021-12-05 04:36] VITALS: BMI 44.6
[2021-12-14 14:11] LABS: INR Fingerstick 2.1; Prothrombin Time Fingerstick 24.3 SEC (11.7-14.9)
== END 2021-12-14 18:00 | disposition home or self-care (01) ==
LOC: LAB 13:57
PROVIDERS: PCP Physician Assistant; Referring Provider Internal Medicine Cardiovascular Disease; Visit Provider Internal Medicine Cardiovascular Disease
DX: Z79.01 Long term (current) use of 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s (principal)
CPT/HCPCS: 36416; 85610

== ENCOUNTER 2022-01-11 14:10 | Observation (INO) | payer MEDICARE, SELFPAY ==
[2022-01-11] VITALS (10 sets, daily range): BP systolic 97–149; BP diastolic 50–110; PULSE 68–84; RESP 14–22; TEMP 37–37.5; O2SAT 92–98; BMI 44.3; BMI 44.7
--- NOTE | 2022-01-11 14:56 | EKG12_ITS ---
Test Reason : LIGHT HEADED Blood Pressure : / mmHG Vent. Rate : 069 BPM Atrial Rate : 069 BPM P-R Int : 236 ms QRS Dur : 088 ms QT Int : 396 ms P-R-T Axes : 083 -20 040 degrees QTc Int : 424 ms Sinus rhythm with 1st degree A-V block Otherwise normal ECG Confirmed by CRISTIANE VILLEDA, ANIYA ([id number]), news video editor NEDA JIN ([id number]) on 01/12/2022 9:04:54 AM Referred By: PERICO Confirmed By:ANIYA SAUER MD
--- NOTE | 2022-01-11 15:21 | EX.ED.DYSGE1 ---
HPI <Dr. Janet Raines MD - Last Filed: 01/11/22 17:35> History of Present Illness Chief Complaint: Weakness Detail of Chief Complaint: Weakness, chills Informant: patient and spouse/S.O. Onset/Context/Timing Onset: Today Context: Gradual Onset Narrative Narrative: Patient presents secondary to generalized weakness and chills. Symptoms started today. He did not measure a temperature at home. He does report some mild shortness of breath with minimal cough. He will occasionally bring up white to yellow-colored sputum. He states he has noted diarrhea today as well and did take a dose of Imodium prior to arrival. No vomiting or diarrhea. He denies chest or abdominal pain. He denies any wounds. [facility] <Dr. Janet Raines MD - Last Filed: 01/11/22 17:35> 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 SILVER (obstructive sleep apnea) Paroxysmal atrial fibrillation Paroxysmal atrial flutter Pure hypercholesterolemia Sleep apnea SOB (shortness of breath) Tachycardia Type 2 diabetes mellitus Ulcerative colitis Home Medications potassium chloride 20 meq PO DAILY 09/27/15 [History Last Taken 10/31/21 08:00 20 meq] atorvastatin 40 mg PO QHS 08/20/16 [History Last Taken 10/31/21 18:00 40 mg] metformin 500 mg tablet 500 mg PO BID 05/09/19 [History Last Taken 10/31/21 18:00 500 mg] furosemide 20 mg tablet 40 mg PO DAILY tab 04/01/20 [History Last Taken 10/31/21 08:00 20 mg] metoprolol tartrate 50 mg PO BID 02/17/21 [History Last Taken 10/31/21 18:00 100] warfarin 2.5 mg tablet 2.5 mg PO DAILY #90 tab 05/26/21 [Rx Last Taken 10/31/21 18:00 2.5mg] prazosin 2 mg capsule 2 mg PO BID #180 cap 11/15/21 [Rx Last Taken Unknown] flecainide 50 mg tablet 50 mg PO Q12H #180 tab 11/16/21 [Rx Last Taken Unknown] fexofenadine 180 mg PO DAILY PRN PRN 01/11/22 [History Last Taken Unknown] tiotropium 2.5 mcg-olodaterol 2.5 mcg/actuation mist for inhalation 2 puff INHALATION DAILY #4 g 01/11/22 [Rx Last Taken Unknown] Allergy/AdvReac Type Severity Reaction Status Date / Time amlodipine Allergy Severe Rash Verified 01/11/22 14:13 Penicillins Allergy Hives Verified 01/11/22 14:13 azithromycin AdvReac Diarrhea Verified 01/11/22 14:13 celecoxib [From Celebrex] AdvReac RECTAL Verified 01/11/22 14:13 BLEEDING Family History Mother Colon cancer Heart disease Father CAD (coronary artery disease) Sister Diabetes Brother Heart disease Diabetes Surgical History History of bilateral hip replacements History of knee surgery History of radiofrequency ablation procedure for cardiac arrhythmia (~08/11/15) Social History Smoking Status: Former smoker alcohol intake: current details: rare substance use type: does not use caffeine: Yes Type: coffee Number of servings: 3 ROS <Dr. Janet Raines MD - Last Filed: 01/11/22 17:35> ROS ED Constitutional Constitutional ED: Reports chills; Denies fever(s) Eyes Eyes: Denies change in vision ENT ENT ED: Denies sore throat Cardiovascular Cardiovascular: Denies chest pain Respiratory/Chest Respiratory/Chest: Reports cough, dyspnea and sputum Gastrointestinal Gastrointestinal: Reports diarrhea; Denies abdominal pain, nausea or vomiting Genitourinary Genitourinary ED: Denies dysuria Musculoskeletal Musculoskeletal: Denies back pain Integumentary Denies rash Neurologic Neurologic: Reports weakness; Denies headache(s) Allergic/Immunologic Allergic/Immunologic ED: Denies urticaria EXAM <Dr. Janet Raines MD - Last Filed: 01/11/22 17:35> Physical Exam Const Vital Signs: 01/11/22 14:13 01/11/22 14:22 01/11/22 16:43 Temperature 99 F Temperature Source Temporal Pulse Rate 68 70 73 Respiratory Rate 22 H 17 14 Respiratory Pattern Normal Blood Pressure 97/77 Blood Pressure Mean 83 Pulse Ox 93 93 98 Oxygen Delivery Method Room Air Room Air Room Air 01/11/22 18:04 01/11/22 20:11 Temperature Temperature Source Pulse Rate 72 75 Respiratory Rate 16 16 Respiratory Pattern Blood Pressure 132/110 H Blood Pressure Mean 117 Pulse Ox 97 96 Oxygen Delivery Method Room Air Room Air Positive well nourished and well developed General Appearance ED: well developed HEENT Reports moist mucous membranes Eyes PERRL and EOMs intact bilaterally Neck supple Chest Wall inspection of chest normal and palpation of chest normal Resp normal respiratory effort Auscultation: diminished lung sounds Cardio regular rate and regular rhythm GI non-tender Auscultation: hypoactive bowel sounds Palpation: soft Extremity normal to inspection Neuro oriented x3 and no sensory deficits noted Sensorium / Orientation: alert Motor Exam: strength 5/5 throughout Psych mental status grossly normal Skin no rashes or lesions noted <Dr. Ricardo Hernadez MD - Last Filed: 01/11/22 20:40> Physical Exam Const Vital Signs: 01/11/22 14:13 01/11/22 14:22 01/11/22 16:43 Temperature 99 F Temperature Source Temporal Pulse Rate 68 70 73 Respiratory Rate 22 H 17 14 Respiratory Pattern Normal Blood Pressure 97/77 Blood Pressure Mean 83 Pulse Ox 93 93 98 Oxygen Delivery Method Room Air Room Air Room Air 01/11/22 18:04 01/11/22 20:11 Temperature Temperature Source Pulse Rate 72 75 Respiratory Rate 16 16 Respiratory Pattern Blood Pressure 132/110 H Blood Pressure Mean 117 Pulse Ox 97 96 Oxygen Delivery Method Room Air Room Air MDM <Dr. Janet Raines MD - Last Filed: 01/11/22 17:35> MDM MDM Narrative Medical decision making narrative: Lab work, chest x-ray, urinalysis obtained. Blood cultures ordered. Lab Data Attestation: I reviewed the patient's lab results. Labs: Laboratory Results - last 24 hr 01/11/22 01/11/22 01/11/22 15:58 15:58 15:58 WBC 8.7 RBC 4.38 L Hgb 13.2 Hct 40.9 MCV 93.4 MCH 30.1 MCHC 32.3 RDW Std Deviation 48.2 H RDW Coeff of Jadon 14.2 Plt Count 185 MPV 9.9 Immature Gran % (Auto) 0.600 Neut % (Auto) 86.8 H Lymph % (Auto) 6.9 L Hemphill % (Auto) 4.2 Eos % (Auto) 1.3 Baso % (Auto) 0.2 Absolute Neuts (auto) 7.6 Absolute Lymphs (auto) 0.60 L Nucleated RBC % 0 Differential Comment SCANNED PT INR D-Dimer Quant (PE/DVT) Sodium 140 Potassium 4.1 Chloride 106 Carbon Dioxide 28.0 Anion Gap 6 BUN 14 Creatinine 1.32 H Estim Creat Clear Calc 48.35 Est GFR (MDRD) Af Amer 68 Est GFR (MDRD) Non-Af 56 L BUN/Creatinine Ratio 10.6 Glucose 112 H Lactic Acid 1.8 Calcium 8.5 Total Bilirubin 1.10 H Direct Bilirubin 0.26 AST 17 ALT 24 Alkaline Phosphatase 65 Total Protein 7.3 Albumin 3.4 Globulin 3.9 Urine Color Urine Clarity Urine pH Ur Specific [place] Urine Protein Urine Glucose (UA) Urine Ketones Urine Occult Blood Urine Nitrite Urine Bilirubin Urine Urobilinogen Ur Leukocyte Esterase Urine RBC Urine WBC Ur Squamous Epith Cells Urine Bacteria Urine Mucus 01/11/22 01/11/22 01/11/22 15:58 15:58 16:00 WBC RBC Hgb Hct MCV MCH MCHC RDW Std Deviation RDW Coeff of Jadon Plt Count MPV Immature Gran % (Auto) Neut % (Auto) Lymph % (Auto) Hemphill % (Auto) Eos % (Auto) Baso % (Auto) Absolute Neuts (auto) Absolute Lymphs (auto) Nucleated RBC % Differential Comment PT 21.5 H INR 1.9 D-Dimer Quant (PE/DVT) 1.15 H* Sodium Potassium Chloride Carbon Dioxide Anion Gap BUN Creatinine Estim Creat Clear Calc Est GFR (MDRD) Af Amer Est GFR (MDRD) Non-Af BUN/Creatinine Ratio Glucose Lactic Acid Calcium Total Bilirubin Direct Bilirubin AST ALT Alkaline Phosphatase Total Protein Albumin Globulin Urine Color Yellow Urine Clarity Clear Urine pH 6.0 Ur Specific [place] 1.010 Urine Protein 15 H Urine Glucose (UA) Normal Urine Ketones Negative Urine Occult Blood 25 H Urine Nitrite Negative Urine Bilirubin Negative Urine Urobilinogen Normal Ur Leukocyte Esterase Negative Urine RBC 0 SEEN Urine WBC 0 SEEN Ur Squamous Epith Cells 0-5 SEEN Urine Bacteria RARE Urine Mucus 0 SEEN Radiography Chest X-Ray - ED: 1 View, Read by ED Physician and Chronic Changes Diagnostic Testing: Clinical Impression(s) from Imaging Studies Chest X-Ray 01/11/22 15:25 IMPRESSION: No acute abnormality is seen. Electronically Signed: Awais Mullisn MD at 15:43 EDT , Chest CTA 01/11/22 16:57 IMPRESSION: No acute finding in the chest with no evidence of pulmonary embolism. Number of COPD. Cholelithiasis. Diffuse hepatic steatosis. Electronically Signed: Ovidio Reed MD at 18:46 EDT , EKG Initial EKG: Attestation: I personally reviewed and interpreted this EKG as follows: Interpretation: Sinus Rhythm (Sinus at 69 with first-degree AV block. No acute ST change.) Treatment and Re-Evaluation Narrative: Test results discussed with patient and at bedside. Lab work is unremarkable with no white count or left shift. Lactic acid is normal. Urinalysis shows no infection. Chest x-ray reveals chronic changes only with no focal infiltrate. When I rechecked the patient's oxygen level he was 87% lying in bed on room air with a good waveform. He was placed on 2 L nasal cannula and is now satting in the low 90s. Patient did have a hospital admission in October with similar presentation-viral type syndrome with mild hypoxia. At that time he ultimately improved with aerosols and steroids. Patient will be sent for a CTA of the chest as he does have lung cancer history and is hypoxic. Patient be signed out to oncoming physician for final reeval and disposition. <Dr. Ricardo Hernadez MD - Last Filed: 01/11/22 20:40> [facility] Narrative Medical decision making narrative: Patient turned over to me from the initial physician Dr. Steffanie Buckley. CTA of the chest showed no PE and no pneumonia. I reviewed his prior labs his white count was 8. H&H of 13 and 40. Electrolytes were unremarkable gap of 6 BUN and creatinine of 14 and 1.3. Urinalysis negative. D-dimer was elevated but again on the CTA there was no PE. Coumadin was subtherapeutic with an INR of 1.9. Lactic acid was normal at 1.8. Repeat exam patient is doing well. Nurses tried to ambulate him earlier and he became hypoxic. I think he has an underlying COPD flare. He has had this in the past. He will be treated with DuoNeb aerosol and prednisone. I will speak to the hospitalist about admission. Typically he is not on home oxygen. Lab Data Labs: Laboratory Results - last 24 hr 01/11/22 01/11/22 01/11/22 15:58 15:58 15:58 WBC 8.7 RBC 4.38 L Hgb 13.2 Hct 40.9 MCV 93.4 MCH 30.1 MCHC 32.3 RDW Std Deviation 48.2 H RDW Coeff of Jadon 14.2 Plt Count 185 MPV 9.9 Immature Gran % (Auto) 0.600 Neut % (Auto) 86.8 H Lymph % (Auto) 6.9 L [place] % (Auto) 4.2 Eos % (Auto) 1.3 Baso % (Auto) 0.2 Absolute Neuts (auto) 7.6 Absolute Lymphs (auto) 0.60 L Nucleated RBC % 0 Differential Comment SCANNED PT INR D-Dimer Quant (PE/DVT) Sodium 140 Potassium 4.1 Chloride 106 Carbon Dioxide 28.0 Anion Gap 6 BUN 14 Creatinine 1.32 H Estim Creat Clear Calc 48.35 Est GFR (MDRD) Af Amer 68 Est GFR (MDRD) Non-Af 56 L BUN/Creatinine Ratio 10.6 Glucose 112 H Lactic Acid 1.8 Calcium 8.5 Total Bilirubin 1.10 H Direct Bilirubin 0.26 AST 17 ALT 24 Alkaline Phosphatase 65 Total Protein 7.3 Albumin 3.4 Globulin 3.9 Urine Color Urine Clarity Urine pH Ur Specific [place] Urine Protein Urine Glucose (UA) Urine Ketones Urine Occult Blood Urine Nitrite Urine Bilirubin Urine Urobilinogen Ur Leukocyte Esterase Urine RBC Urine WBC Ur Squamous Epith Cells Urine Bacteria Urine Mucus 01/11/22 01/11/22 01/11/22 15:58 15:58 16:00 WBC RBC Hgb Hct MCV MCH MCHC RDW Std Deviation RDW Coeff of Jadon Plt Count MPV Immature Gran % (Auto) Neut % (Auto) Lymph % (Auto) [place] % (Auto) Eos % (Auto) Baso % (Auto) Absolute Neuts (auto) Absolute Lymphs (auto) Nucleated RBC % Differential Comment PT 21.5 H INR 1.9 D-Dimer Quant (PE/DVT) 1.15 H* Sodium Potassium Chloride Carbon Dioxide Anion Gap BUN Creatinine Estim Creat Clear Calc Est GFR (MDRD) Af Amer Est GFR (MDRD) Non-Af BUN/Creatinine Ratio Glucose Lactic Acid Calcium Total Bilirubin Direct Bilirubin AST ALT Alkaline Phosphatase Total Protein Albumin Globulin Urine Color Yellow Urine Clarity Clear Urine pH 6.0 Ur Specific [place] 1.010 Urine Protein 15 H Urine Glucose (UA) Normal Urine Ketones Negative Urine Occult Blood 25 H Urine Nitrite Negative Urine Bilirubin Negative Urine Urobilinogen Normal Ur Leukocyte Esterase Negative Urine RBC 0 SEEN Urine WBC 0 SEEN Ur Squamous Epith Cells 0-5 SEEN Urine Bacteria RARE Urine Mucus 0 SEEN Radiography Diagnostic Testing: Clinical Impression(s) from Imaging Studies Chest X-Ray 01/11/22 15:25 IMPRESSION: No acute abnormality is seen. Electronically Signed: Awais Mullins MD at 15:43 EDT , Chest CTA 01/11/22 16:57 IMPRESSION: No acute finding in the chest with no evidence of pulmonary embolism. Number of COPD. Cholelithiasis. Diffuse hepatic steatosis. Electronically Signed: Ovidio Reed MD at 18:46 EDT , Discharge Plan Dx/Rx/DC Orders Clinical Impression: SOB (shortness of breath), COPD (chronic obstructive pulmonary disease), Lung cancer Disposition Disposition: Acute Care [facility]
--- NOTE | 2022-01-11 15:25 | RAD_ITS ---
STUDY: X-RAY CHEST REASON FOR EXAM: Male, 76 years old. Cough TECHNIQUE: Single AP portable view of the chest. COMPARISON: Comparison is made with prior study dated 10/31/2021. FINDINGS: EKG electrodes are seen. Surgical clips are seen overlying the right lung apex. The lungs are clear and expanded. There is no demonstrated pleural abnormality. There is mild cardiac enlargement. Normal mediastinum and saulo. Normal visualized pulmonary arteries. Normal visualized aortic arch and descending thoracic aorta. There are diffuse degenerative changes of the visualized thoracic spine. Normal visualized ribs, clavicles, and shoulders. There is no demonstrated abnormality of the visualized soft tissue structures of the upper abdomen. RAD/Chest 1 View (Portable) IMPRESSION: No acute abnormality is seen. Electronically Signed: Awais Mullins MD at 15:43 EDT ,
[2022-01-11] MEDS: 0.9% Normal Saline 1,000 ML 150 ML IV (15:29)
[2022-01-11 16:07] LABS: Mucous, Urine 0 SEEN /hpf (<or=2+); Red Blood Cells-Urine 0 SEEN /hpf (0-5); White Blood Cells 0 SEEN /hpf (0-5)
[2022-01-11 16:17] LABS: Absolute Neutrophil Count 7.6 X10^3/uL (2.0-7.7); Basophil# 0.02 X10^3/uL; Basophil% 0.2 % (0-1); Eosinophil# 0.11 X10^3/uL; Eosinophils% 1.3 % (0-5); Hematocrit 40.9 % (40-54); Hemoglobin 13.2 g/dL (13.0-16.5); Lymphocyte % 6.9 % (19-41); Mean Corp Hgb Conc 32.3 g/dL (32-36); Mean Corpuscular Hgb 30.1 pg (27.0-32.0); Mean Corpuscular Volume 93.4 fL (80-94); Mean Platelet Vol. 9.9 fl (6.2-12.0); Monocyte# 0.37 X10^3/uL; Monocyte% 4.2 % (0-10); NRBC Flagged by Analyzer 0 % (0-5); Neutrophil # 7.57 X10^3/uL (2.7-7.7); Neutrophil % 86.8 % (47-70); POSITIVE DIFFERENTIAL YES; Platelet Count 185 K/mm3 (150-450); RBC Distribution Width CV 14.2 % (11.6-14.6); RBC Distribution Width SD 48.2 fl (35.1-43.9); Red Blood Count 4.38 M/mm3 (4.6-6.2); White Blood Count 8.7 K/mm3 (4.4-11.0)
[2022-01-11 16:19] LABS: Differential Indicated SCAN CRITERIA MET
[2022-01-11 16:23] LABS: Color, Urine Yellow (Yellow); Glucose, Dipstick Normal (Normal); Ketone-Dipstick Negative (Negative); Leukocyte Esterase-Dipstick Negative /ul (Negative); Nitrite-Dipstick Negative (Negative); Occult Blood-Urine 25 /ul (Negative); Protein-Dipstick 15 mg/dl (Negative); Urine Bilirubin Dipstick Negative (Negative); Urine Clarity Clear (Clear); Urine Urobilinogen Normal (Normal)
[2022-01-11 16:27] LABS: AST(SGOT) 17 U/L (15-37); Alanine Aminotransfer ALT/SGPT 24 U/L (16-61); Albumin, Serum 3.4 g/dL (3.2-5.0); Alkaline Phosphatase 65 U/L (45-117); Anion Gap 6 (5-15); BUN 14 mg/dL (7-18); BUN/Creat Ratio 10.6 RATIO (10-20); Bilirubin, Direct 0.26 mg/dL (0.00-0.30); Calcium,Total 8.5 mg/dL (8.5-10.1); Chloride 106 mmol/L (98-107); Creatinine, Serum 1.32 mg/dL (0.70-1.30); EST Glomerular Filtration Rate 56 mL/min (>60); Est Glom Filt Rate - Afr Amer 68 mL/min (>60); Estimated Creatinine Clearance 48.35 ml/min; Globulin 3.9 g/dL (2.2-4.2); Glucose 112 mg/dL (74-106); Potassium 4.1 mmol/L (3.5-5.1); Protein, Total 7.3 g/dL (6.4-8.2); Sodium Level 140 mmol/L (136-145)
[2022-01-11 16:33] LABS: Bacteria RARE /hpf (None Seen); Squamous Epithelial Cells - UA 0-5 SEEN /hpf (0-5)
[2022-01-11 16:40] LABS: Lactic Acid 1.8 mmol/L (0.4-1.9)
--- NOTE | 2022-01-11 16:57 | CT_ITS ---
STUDY: CTA CHEST REASON FOR EXAM: Male, 76 years old. Shortness of breath, rule out PE RADIATION DOSAGE (If Supplied By Facility): CTDIvol = ( 12.66 ) mGy, DLP = ( 567.16 ) mGycm TECHNIQUE: The examination was performed with the intravenous administration of IV 100mL Isovue-370. Post-processing of the angiographic images was performed, with multiplanar reformation and 3D reconstruction. Individualized dose optimization techniques were used for this CT. COMPARISON: None. FINDINGS: The study is somewhat degraded by the patient''s respiratory motion. No definite filling defect in the pulmonary arteries to suggest pulmonary embolism. Atherosclerosis of the thoracic aorta and coronary arteries noted. No adenopathy. No pleural or pericardial effusion. No pneumothorax metallic densities in the periphery of the right upper lobe with surrounding linear scars. Moderate emphysematous changes noted in the bilateral lungs, predominantly the upper lobes. Bibasilar platelike atelectasis versus linear scars. No pulmonary consolidation, mass, or suspicious nodule. Diffuse hepatic steatosis. Punctate layering stones in the gallbladder. Bilateral perinephric fat stranding, uncertain etiology. Multilevel thoracic spondylosis. CT/CTA Chest W/WO Contrast IMPRESSION: No acute finding in the chest with no evidence of pulmonary embolism. Number of COPD. Cholelithiasis. Diffuse hepatic steatosis. Electronically Signed: Ovidio Reed MD at 18:46 EDT ,
[2022-01-11 17:13] LABS: Differential Comment SCANNED
[2022-01-11] MEDS: LORazepam 2 MG/ML Syringe 0.5 MG IV (17:16)
[2022-01-11 18:07] LABS: International Normalized Ratio 1.9; Prothrombin Time (Protime)PT. 21.5 SECONDS (11.7-14.9)
[2022-01-11 18:08] LABS: D-Dimer Quantitative (DVT/PE) 1.15 FEU/ug/m (0.27-0.49)
[2022-01-11] MEDS: Ipratropium/Albuterol Sulfate 3 ML AMPUL.NEB INHALATION (20:46)
[2022-01-11] MEDS: predniSONE 20 MG Tablet 60 MG PO (20:46)
--- NOTE | 2022-01-11 20:53 | HP.PCM.HOS_ITS ---
HPI - General General Date of Admission: 01/11/22 HPI Narrative AVELINA BULL, is a 76 M with a significant history of lung cancer status post radiation; COPD; obstructive sleep apnea; paroxysmal A. fib status post ablation; chronic diastolic heart failure; obstructive sleep apnea on home CPAP who presents with chills and rigors that started the same day of presentation. Associated with his symptoms is weakness; shortness of breath; intermittent cough productive for white to yellow sputum. Also he reports diarrhea. On the day representation his bowels moved about 3 times. At the emergency department with ambulation his oxygen saturation dropped to 87% so a decision was made for patient to stay at the hospital. 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 SILVER (obstructive sleep apnea) Paroxysmal atrial fibrillation Paroxysmal atrial flutter Pure hypercholesterolemia Sleep apnea SOB (shortness of breath) Tachycardia Type 2 diabetes mellitus Ulcerative colitis Home Medications potassium chloride 20 meq PO DAILY 09/27/15 [History Last Taken 10/31/21 08:00 20 meq] atorvastatin 40 mg PO QHS 08/20/16 [History Last Taken 10/31/21 18:00 40 mg] metformin 500 mg tablet 500 mg PO BID 05/09/19 [History Last Taken 10/31/21 18:00 500 mg] furosemide 20 mg tablet 40 mg PO DAILY tab 04/01/20 [History Last Taken 10/31/21 08:00 20 mg] metoprolol tartrate 50 mg PO BID 02/17/21 [History Last Taken 10/31/21 18:00 100] warfarin 2.5 mg tablet 2.5 mg PO DAILY #90 tab 05/26/21 [Rx Last Taken 10/31/21 18:00 2.5mg] prazosin 2 mg capsule 2 mg PO BID #180 cap 11/15/21 [Rx Last Taken Unknown] flecainide 50 mg tablet 50 mg PO Q12H #180 tab 11/16/21 [Rx Last Taken Unknown] fexofenadine 180 mg PO DAILY PRN PRN 01/11/22 [History Last Taken Unknown] tiotropium 2.5 mcg-olodaterol 2.5 mcg/actuation mist for inhalation 2 puff INHALATION DAILY #4 g 01/11/22 [Rx Last Taken Unknown] Allergy/AdvReac Type Severity Reaction Status Date / Time amlodipine Allergy Severe Rash Verified 01/11/22 14:13 Penicillins Allergy Hives Verified 01/11/22 14:13 azithromycin AdvReac Diarrhea Verified 01/11/22 14:13 celecoxib [From Celebrex] AdvReac RECTAL Verified 01/11/22 14:13 BLEEDING Family History Mother Colon cancer Heart disease Father CAD (coronary artery disease) Sister Diabetes Brother Heart disease Diabetes Surgical History History of bilateral hip replacements History of knee surgery History of radiofrequency ablation procedure for cardiac arrhythmia (~08/11/15) Social History Smoking Status: Former smoker alcohol intake: current details: rare substance use type: does not use caffeine: Yes Type: coffee Number of servings: 3 ROS ROS Narrative Pertinent positives and pertinent negatives as noted in HPI. All other systems were reviewed and are negative. Vital Signs Vital Signs Vital Signs: 01/11/22 14:13 01/11/22 14:22 01/11/22 16:43 Temperature 99 F Temperature Source Temporal Pulse Rate 68 70 73 Respiratory Rate 22 H 17 14 Respiratory Pattern Normal Blood Pressure 97/77 Blood Pressure Mean 83 Pulse Ox 93 93 98 Oxygen Delivery Method Room Air Room Air Room Air Oxygen Flow Rate (L/min) 01/11/22 18:04 01/11/22 20:11 01/11/22 20:48 Temperature 98.6 F Temperature Source Temporal Pulse Rate 72 75 70 Respiratory Rate 16 16 16 Respiratory Pattern Blood Pressure 132/110 H 149/50 H Blood Pressure Mean 117 83 Pulse Ox 97 96 93 Oxygen Delivery Method Room Air Room Air Nasal Cannula Oxygen Flow Rate (L/min) 2 Weight Weight: 136.078 kg Body Mass Index (BMI) 44.3 Physical Exam Narrative Physical exam: General: Well-nourished, well-developed. Head: Normocephalic, atraumatic, no tenderness Eyes: Vision is grossly intact. EOMI ENT, no trauma, moist mucous membranes, no rhinorrhea Neck: Nontender, full range of motion, no spinal tenderness, deformities, step- off CVS: Regular rate and rhythm. S1-S2 present. No murmur, gallop or rub. Respiratory : Diffuse scattered rales bilaterally, chest wall nontender, no wheezing Abdomen: Soft, nontender, nondistended, normal bowel sounds, no masses : Deferred Back: Nontender, no CVA tenderness, no midline spinal tenderness, deformities, step-offs Extremities: Bilateral lower extremity edema, 2+. Nontender full range of motion, no trauma Skin: Normal color, no trauma, abrasions Neuro: Alert, oriented, cranial nerves II through XII grossly intact. Psychiatry: Normal mood. Normal affect. Not depressed. Not anxious. Results Lab / Micro Data Result Diagrams: 01/11/22 15:58 01/11/22 15:58 Labs: Laboratory Results - last 24 hr 01/11/22 15:58: WBC 8.7, RBC 4.38 L, Hgb 13.2, Hct 40.9, MCV 93.4, MCH 30.1, MCHC 32.3, RDW Std Deviation 48.2 H, RDW Coeff of Jadon 14.2, Plt Count 185, MPV 9.9, Immature Gran % (Auto) 0.600, Neut % (Auto) 86.8 H, Lymph % (Auto) 6.9 L, [place] % (Auto) 4.2, Eos % (Auto) 1.3, Baso % (Auto) 0.2, Absolute Neuts (auto) 7.6, Absolute Lymphs (auto) 0.60 L, Nucleated RBC % 0, Differential Comment SCANNED 01/11/22 15:58: Sodium 140, Potassium 4.1, Chloride 106, Carbon Dioxide 28.0, Anion Gap 6, BUN 14, Creatinine 1.32 H, Estim Creat Clear Calc 48.35, Est GFR (MDRD) Af Amer 68, Est GFR (MDRD) Non-Af 56 L, BUN/Creatinine Ratio 10.6, Glucose 112 H, Calcium 8.5, Total Bilirubin 1.10 H, Direct Bilirubin 0.26, AST 17, ALT 24, Alkaline Phosphatase 65, Total Protein 7.3, Albumin 3.4, Globulin 3.9 01/11/22 15:58: Lactic Acid 1.8 01/11/22 15:58: D-Dimer Quant (PE/DVT) 1.15 H* 01/11/22 15:58: PT 21.5 H, INR 1.9 01/11/22 16:00: Urine Color Yellow, Urine Clarity Clear, Urine pH 6.0, Ur Specific [place] 1.010, Urine Protein 15 H, Urine Glucose (UA) Normal, Urine Ketones Negative, Urine Occult Blood 25 H, Urine Nitrite Negative, Urine Bilirubin Negative, Urine Urobilinogen Normal, Ur Leukocyte Esterase Negative, Urine RBC 0 SEEN, Urine WBC 0 SEEN, Ur Squamous Epith Cells 0-5 SEEN, Urine Bacteria RARE, Urine Mucus 0 SEEN Micro: Microbiology 01/11/22 15:05 Nasal Secretion SARS-CoV-2 & FLU Antigen (Rapid) - Final Radiology Impression Chest X-Ray 01/11/22 15:25 IMPRESSION: No acute abnormality is seen. Electronically Signed: Awais Mullins MD at 15:43 EDT , Chest CTA 01/11/22 16:57 IMPRESSION: No acute finding in the chest with no evidence of pulmonary embolism. Number of COPD. Cholelithiasis. Diffuse hepatic steatosis. Electronically Signed: Ovidio Reed MD at 18:46 EDT , Assessment & Plan Assessment/Plan (1) Viral syndrome: (2) 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, adult: PLAN: Viral syndrome Review of labs showed elevated D-dimer. Chest x-ray with no acute cardiopulmonary process. Chest CTA was visualized and independent interpreted and I agree with radiologist interpretation above. SARS COVID 2 and flu antigen negative. Received prednisone 60 mg x 1 on presentation at the ED. Will hold off further steroids as patient is not wheezing on examination. DuoNebs [id number] ordered.. Albuterol as needed ordered. As needed Tessalon Perles ordered for cough. Imodium as needed for diarrhea. CBC reviewed showed normal white counts. Trend CBC Oxygen to maintain oxygen saturation to at least 90%. PT and OT to work with patient with patient for strengthening. CKD stage IIIa with nephropathy Stable Trend BMP. Diabetes mellitus with nephropathy Blood glucose on presentation was stable. Metformin held Accu-Chek QA [facility] with correction scale insulin ordered. Paroxysmal A. fib Status post ablation Metoprolol and flecainide continued INR is subtherapeutic at 1.9. Escalate home dose of Coumadin. Trend PT/INR Morbid Obesity BMI: 44.3 kg/m?. Complicates care. Lifestyle modification recommended. Chronic diastolic heart failure Echocardiogram on 11/01/2021 showed ejection fraction of 65% with no evidence of diastolic function. Trivial mitral valve insufficiency Chest imaging is nonacute Lasix and potassium continued. Likely stable with current symptoms from viral syndrome. Daily weights. Cardiac diet. Fluid restrictions. Hypertension Blood pressure is stable Metoprolol continued. Trend blood pressure and adjust blood pressure medications. DVT prophylaxis: Subcutaneous Lovenox ordered Charges/Coding Visit Charges OBSV E&M: 57972 Initial observation care L3
[2022-01-11] MEDS: Insulin Lispro 100 UNIT/ML INSULN.PEN SC (22:37)
[2022-01-11] MEDS: Doxazosin 1 MG Tablet 1.5 MG PO (22:41)
[2022-01-11] MEDS: Metoprolol Tartrate 50 MG Tablet PO (22:42)
[2022-01-11] MEDS: Flecainide 100 MG Tablet 50 MG PO (22:42)
[2022-01-11] MEDS: Atorvastatin Calcium 40 MG Tablet PO (22:42)
[2022-01-11 23:05] LABS: Bedside Glucose 201 mg/dL (74-106)
[2022-01-12] VITALS (13 sets, daily range): BP systolic 120–135; BP diastolic 54–58; PULSE 71–87; RESP 12–22; TEMP 36.4–36.7; O2SAT 85–96
--- NOTE | 2022-01-12 01:15 | CPS ---
decreased cpap to 7 because pt was complaining of too much air
--- NOTE | 2022-01-12 01:16 | CPS ---
placed pt on 4 l/m via nc for night-pt does not like our bipap or mask
[2022-01-12] MEDS: Insulin Lispro 100 UNIT/ML INSULN.PEN SC ×4 (06:09→21:24)
[2022-01-12 06:40] LABS: Bedside Glucose 239 mg/dL (74-106)
[2022-01-12 06:43] LABS: Absolute Lymphocyte Count 0.68 X10^3/uL (0.83-4.51); Absolute Neutrophil Count 5.5 X10^3/uL (2.0-7.7); Basophil# 0.01 X10^3/uL; Basophil% 0.2 % (0-1); Hematocrit 38.7 % (40-54); Hemoglobin 12.6 g/dL (13.0-16.5); Lymphocyte # 0.68 X10^3/ul (0.83-4.51); Lymphocyte % 10.8 % (19-41); Mean Corp Hgb Conc 32.6 g/dL (32-36); Mean Corpuscular Hgb 30.4 pg (27.0-32.0); Mean Corpuscular Volume 93.5 fL (80-94); Mean Platelet Vol. 9.8 fl (6.2-12.0); Monocyte# 0.11 X10^3/uL; Monocyte% 1.7 % (0-10); NRBC Flagged by Analyzer 0 % (0-5); Platelet Count 169 K/mm3 (150-450); RBC Distribution Width CV 14.3 % (11.6-14.6); RBC Distribution Width SD 48.5 fl (35.1-43.9); Red Blood Count 4.14 M/mm3 (4.6-6.2); White Blood Count 6.3 K/mm3 (4.4-11.0)
[2022-01-12 06:55] LABS: International Normalized Ratio 1.9
[2022-01-12 07:07] LABS: Anion Gap 6 (5-15); BUN 15 mg/dL (7-18); BUN/Creat Ratio 12.2 RATIO (10-20); Calcium,Total 8.1 mg/dL (8.5-10.1); Chloride 105 mmol/L (98-107); Creatinine, Serum 1.23 mg/dL (0.70-1.30); EST Glomerular Filtration Rate 61 mL/min (>60); Est Glom Filt Rate - Afr Amer 74 mL/min (>60); Estimated Creatinine Clearance 51.89 ml/min; Glucose 221 mg/dL (74-106); Potassium 4.3 mmol/L (3.5-5.1); Sodium Level 138 mmol/L (136-145)
[2022-01-12] MEDS: Ipratropium/Albuterol Sulfate 3 ML AMPUL.NEB INHALATION ×4 (07:34→19:26)
[2022-01-12] MEDS: predniSONE 20 MG Tablet 40 MG PO (10:33)
[2022-01-12] MEDS: Doxazosin 1 MG Tablet 1.5 MG PO ×2 (10:33→21:23)
[2022-01-12] MEDS: Potassium Chloride Oral Tablet 20 MEQ PO (10:34)
[2022-01-12] MEDS: MESALAMINE 400 MG CAPSULE.DR 800 MG PO ×2 (10:34→21:21)
[2022-01-12] MEDS: Furosemide 40 MG Tablet PO (10:35)
[2022-01-12] MEDS: Flecainide 100 MG Tablet 50 MG PO ×2 (10:35→21:22)
[2022-01-12] MEDS: Metoprolol Tartrate 50 MG Tablet PO ×2 (10:35→21:20)
--- NOTE | 2022-01-12 10:56 | PCM.PN.HOSP ---
Subjective Subjective Doing well, denies any fevers or chills currently. Still requiring 2 to 4 L of oxygen when at baseline he does not require any oxygen. Objective Data Objective Data Vital Signs: Vital Signs Temp Pulse Resp BP Pulse Ox 97.7 F L 73 20 H 120/54 L 96 01/12/22 08:35 01/12/22 10:35 01/12/22 08:35 01/12/22 08:35 01/12/22 08:35 Oxygen Flow Rate (L/min) 2 Oxygen Delivery Method Nasal Cannula Weight: 303 lb 2.17 oz Body Mass Index (BMI) 44.7 Intake & Output: Intake and Output for Last 24 Hours 01/11/22 01/12/22 01/13/22 03:59 03:59 03:59 Intake Total 1000 / 1000 Output Total 0 / 0 Balance 1000 / 1000 Lab / Micro Data Result Diagrams: 01/12/22 06:13 01/12/22 06:13 Labs: Laboratory Results - last 24 hr 01/11/22 15:58: WBC 8.7, RBC 4.38 L, Hgb 13.2, Hct 40.9, MCV 93.4, MCH 30.1, MCHC 32.3, RDW Std Deviation 48.2 H, RDW Coeff of Jadon 14.2, Plt Count 185, MPV 9.9, Immature Gran % (Auto) 0.600, Neut % (Auto) 86.8 H, Lymph % (Auto) 6.9 L, [place] % (Auto) 4.2, Eos % (Auto) 1.3, Baso % (Auto) 0.2, Absolute Neuts (auto) 7.6, Absolute Lymphs (auto) 0.60 L, Nucleated RBC % 0, Differential Comment SCANNED 01/11/22 15:58: Sodium 140, Potassium 4.1, Chloride 106, Carbon Dioxide 28.0, Anion Gap 6, BUN 14, Creatinine 1.32 H, Estim Creat Clear Calc 48.35, Est GFR (MDRD) Af Amer 68, Est GFR (MDRD) Non-Af 56 L, BUN/Creatinine Ratio 10.6, Glucose 112 H, Calcium 8.5, Total Bilirubin 1.10 H, Direct Bilirubin 0.26, AST 17, ALT 24, Alkaline Phosphatase 65, Total Protein 7.3, Albumin 3.4, Globulin 3.9 01/11/22 15:58: Lactic Acid 1.8 01/11/22 15:58: D-Dimer Quant (PE/DVT) 1.15 H* 01/11/22 15:58: PT 21.5 H, INR 1.9 01/11/22 16:00: Urine Color Yellow, Urine Clarity Clear, Urine pH 6.0, Ur Specific [place] 1.010, Urine Protein 15 H, Urine Glucose (UA) Normal, Urine Ketones Negative, Urine Occult Blood 25 H, Urine Nitrite Negative, Urine Bilirubin Negative, Urine Urobilinogen Normal, Ur Leukocyte Esterase Negative, Urine RBC 0 SEEN, Urine WBC 0 SEEN, Ur Squamous Epith Cells 0-5 SEEN, Urine Bacteria RARE, Urine Mucus 0 SEEN 01/11/22 22:32: POC Glucose 201 H 01/12/22 06:05: POC Glucose 239 H 01/12/22 06:13: WBC 6.3, RBC 4.14 L, Hgb 12.6 L, Hct 38.7 L, MCV 93.5, MCH 30.4, MCHC 32.6, RDW Std Deviation 48.5 H, RDW Coeff of Jadon 14.3, Plt Count 169, MPV 9.8, Immature Gran % (Auto) 0.300, Neut % (Auto) 87.0 H, Lymph % (Auto) 10.8 L, [place] % (Auto) 1.7, Eos % (Auto) 0.0, Baso % (Auto) 0.2, Absolute Neuts (auto) 5.5, Absolute Lymphs (auto) 0.68 L, Nucleated RBC % 0 01/12/22 06:13: PT 21.0 H, INR 1.9 01/12/22 06:13: Sodium 138, Potassium 4.3, Chloride 105, Carbon Dioxide 27.0, Anion Gap 6, BUN 15, Creatinine 1.23, Estim Creat Clear Calc 51.89, Est GFR (MDRD) Af Amer 74, Est GFR (MDRD) Non-Af 61, BUN/Creatinine Ratio 12.2, Glucose 221 H, Calcium 8.1 L Micro: Microbiology 01/12/22 07:40 Mucosa - Nasopharyngeal Respiratory Panel (PCR) - Final 01/11/22 15:05 Nasal Secretion SARS-CoV-2 & FLU Antigen (Rapid) - Final Radiography Diagnostic Testing: Radiology Impression Chest X-Ray 01/11/22 15:25 IMPRESSION: No acute abnormality is seen. Electronically Signed: Awais Mullins MD at 15:43 EDT , Chest CTA 01/11/22 16:57 IMPRESSION: No acute finding in the chest with no evidence of pulmonary embolism. Number of COPD. Cholelithiasis. Diffuse hepatic steatosis. Electronically Signed: Ovidio Reed MD at 18:46 EDT , Physical Exam Const alert, oriented x3 and no apparent distress General Appearance: cooperative HEENT normocephalic and moist oral mucous membranes Eyes PERRL, EOMs intact bilaterally and conjunctivae normal Neck supple and no JVD Resp normal respiratory effort, no retractions and no use of accessory muscles Auscultation: diminished lung sounds; Negative for crackles, rales, rhonchi or wheezes Cardio regular rate, regular rhythm, S1 normal heart sound, S2 normal heart sound and no murmurs GI soft to palpation, non-tender and non-distended; Negative for hepatosplenomegaly Extremity no clubbing, cyanosis or edema Skin no rashes or lesions noted Neuro no focal motor deficits and no sensory deficits noted Psych affect normal Appearance: appropriate Assessment & Plan Assessment/Plan (1) Viral syndrome: (2) 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, adult: PLAN: 1. COPD exacerbation ? Unsure as to the initial cause between viral syndrome versus allergies, his says that he was mowing the lawn recently ? COVID and flu antigens were negative we will obtain respiratory panel ? Continue with duo nebs as well as steroids PT/OT ? CT of the chest was negative for any consolidation but does show signs of emphysema 2. Paroxysmal A. fib/morbid obesity/chronic CHF/HTN/HLD ? Recent echo with an EF of 65% and no diastolic dysfunction ? Continue with his home blood pressure medication ? Can his home Lasix, does not appear to be fluid overloaded ? BMI of 44.3, discussed lifestyle modifications ? Continue with Coumadin and monitor INR 3. DM2 with CKD 3a ? Hold metformin continue on scale and on ? We will monitor and make adjustments as not to set ? Renal functions at baseline ? Accu-[place] AC at bedtime DVT: Coumadin Charges/Coding Visit Charges OBSV E&M: 71064 Subsequent observation care L2
--- NOTE | 2022-01-12 12:00 | CASEMGMT ---
RN CM HUMAN PROJECTILE CM to room to meet with patient for initial transition planning/care coordination assessment. RN ENZO introduced self and role at [facility]. Pt voices understanding and consents to assessment at this time. Pt sitting up on edge of bed in no distress at this time. @ bedside. Pt is A/O at this time and answers all questions appropriately. Care providers, pharmacy, and demographics verified/updated at this time. PCP: EDER Cardozo Specialists: Dr Easton and Latrice Hartman, OUTREACH REP--pulmonology Preferred Pharmacy: [facility] Insurance: [facility] Prescription Benefit: Yes Living Will/HPOA: States does not have LW, but has done HPOA paperwork and his is his HPOA. Pt made aware SW can assist w/LW, if he chooses to complete in the future. He voices understanding. LNOK: Em Living Arrangements: Lives w/ in one-story home w/one small step to enter. Independent. 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 Transportation: Pt states drives self and states no transportation concerns at this time. also drives. DME: Has a pulse ox. Has CPAP that he got from [employer] but currently f/u with [facility]. Pt does not have a nebulizer or home O2. HHC/SNF: No hx of either. No needs identified. Pt states he feels like he is back @ his baseline physically and declined PT/OT evals this AM. He states he feels 100% better. Pt states he has not had any further diarrhea or BM's since admission. He was increased to 4l/m during the night d/t did not have his PAP from home and unable to tolerate [facility] PAP. Pt currently @ 2l/m Dr Castellanos made aware. Pt wishes to return home and states has no concerns with going home at time of discharge. CM to follow for home oxygen needs and any further discharge planning/needs. Pt and voice no further concerns/needs at this time. Advised pt and to ask for CM if any further questions/concerns/needs arise. They voice understanding. PLAN: Home w/spousal support and discharge plans in place. CM to follow for possible Home O2 @ discharge. Inga POLK RN, CM
[2022-01-12 14:46] LABS: Bedside Glucose 235 mg/dL (74-106)
[2022-01-12] MEDS: 0.9% Saline Lock 10 ML Syringe IV (15:05)
--- NOTE | 2022-01-12 16:00 | CASEMGMT ---
MYRNA GIRALDO NOTE: MYRNA GIRALDO to room. NO form explained to pt and @ bedside re: Observation status for treatment of viral syndrome/COPD exacerbation. Explained hospitalization will be paid per his insurance policy for Outpatient billing and condition will continue to be evaluated for Inpt necessity. Also let pt and know that [facility] sends paper in the billing packet with their phone number if questions arise. Discussed Pharmacy section of NO form and self administered medication guideline. Pt and verbalize understanding and do not have further questions. Form signed by , per pt request d/t hands shaky, copy made and placed in chart, and original given to pt and . Pt and made aware overnight trending pulse ox to be done tonight. Discussed possibility of oxygen needed @ d/c. Pt states he is not sure what DME co he would like to use, if Oxygen is needed. He voices he does not want [employer]. MYRNA GIRALDO will give pt and list of DME companies, if he qualifies for oxygen @ d/c. Inga POLK RN, CM
[2022-01-12 16:55] LABS: Bedside Glucose 285 mg/dL (74-106)
[2022-01-12] MEDS: Atorvastatin Calcium 40 MG Tablet PO (21:22)
[2022-01-12 23:51] LABS: Bedside Glucose 341 mg/dL (74-106)
[2022-01-13] VITALS (7 sets, daily range): BP systolic 117–136; BP diastolic 52–61; PULSE 60–81; RESP 18–19; TEMP 36.2–36.6; O2SAT 85–95
[2022-01-13 05:43] LABS: Absolute Lymphocyte Count 1.36 X10^3/uL (0.83-4.51); Absolute Neutrophil Count 7.6 X10^3/uL (2.0-7.7); Basophil# 0.01 X10^3/uL; Basophil% 0.1 % (0-1); Eosinophil# 0.03 X10^3/uL; Eosinophils% 0.3 % (0-5); Hematocrit 35.2 % (40-54); Hemoglobin 11.5 g/dL (13.0-16.5); Lymphocyte # 1.36 X10^3/ul (0.83-4.51); Lymphocyte % 13.9 % (19-41); Mean Corp Hgb Conc 32.7 g/dL (32-36); Mean Corpuscular Hgb 30.3 pg (27.0-32.0); Mean Corpuscular Volume 92.9 fL (80-94); Mean Platelet Vol. 9.9 fl (6.2-12.0); Monocyte# 0.75 X10^3/uL; Monocyte% 7.6 % (0-10); NRBC Flagged by Analyzer 0 % (0-5); Neutrophil # 7.61 X10^3/uL (2.7-7.7); Neutrophil % 77.6 % (47-70); Platelet Count 187 K/mm3 (150-450); RBC Distribution Width CV 14.4 % (11.6-14.6); RBC Distribution Width SD 48.9 fl (35.1-43.9); Red Blood Count 3.79 M/mm3 (4.6-6.2); White Blood Count 9.8 K/mm3 (4.4-11.0)
[2022-01-13 06:26] LABS: Anion Gap 6 (5-15); BUN 22 mg/dL (7-18); Calcium,Total 8.3 mg/dL (8.5-10.1); Chloride 106 mmol/L (98-107); Creatinine, Serum 1.22 mg/dL (0.70-1.30); EST Glomerular Filtration Rate 61 mL/min (>60); Est Glom Filt Rate - Afr Amer 74 mL/min (>60); Estimated Creatinine Clearance 52.32 ml/min; Glucose 182 mg/dL (74-106); Potassium 3.7 mmol/L (3.5-5.1); Sodium Level 139 mmol/L (136-145)
[2022-01-13] MEDS: Insulin Lispro 100 UNIT/ML INSULN.PEN SC ×3 (06:53→18:09)
[2022-01-13 07:00] LABS: Bedside Glucose 170 mg/dL (74-106)
[2022-01-13] MEDS: Ipratropium/Albuterol Sulfate 3 ML AMPUL.NEB INHALATION ×2 (07:20→10:59)
--- NOTE | 2022-01-13 09:35 | PN.HOSP_ITS ---
Subjective Subjective Doing well feels much better than when he came into the hospital. Respiratory panel is negative yesterday he was managed on room air for most of the day and we did a nocturnal pulse ox evaluation of the data still pending Objective Data Objective Data Vital Signs: Vital Signs Temp Pulse Resp BP Pulse Ox 97.2 F L 81 18 136/61 H 95 01/13/22 02:45 01/13/22 07:35 01/13/22 07:35 01/13/22 02:45 01/13/22 02:45 Oxygen Flow Rate (L/min) 3 Oxygen Delivery Method Nasal Cannula Weight: 300 lb 14.896 oz Body Mass Index (BMI) 44.7 Intake & Output: Intake and Output for Last 24 Hours 01/12/22 01/13/22 01/14/22 03:59 03:59 03:59 Intake Total 1000 / 1000 900 / 900 100 / 100 Output Total 0 / 0 Balance 1000 / 1000 900 / 900 100 / 100 Lab / Micro Data Result Diagrams: 01/13/22 05:14 01/13/22 05:14 Labs: Laboratory Results - last 24 hr 01/12/22 12:09: POC Glucose 235 H 01/12/22 16:46: POC Glucose 285 H 01/12/22 21:17: POC Glucose 341 H 01/13/22 05:14: PT 22.0 H, INR 2.0 01/13/22 05:14: WBC 9.8, RBC 3.79 L, Hgb 11.5 L, Hct 35.2 L, MCV 92.9, MCH 30.3, MCHC 32.7, RDW Std Deviation 48.9 H, RDW Coeff of Jadon 14.4, Plt Count 187, MPV 9.9, Immature Gran % (Auto) 0.500, Neut % (Auto) 77.6 H, Lymph % (Auto) 13.9 L, [place] % (Auto) 7.6, Eos % (Auto) 0.3, Baso % (Auto) 0.1, Absolute Neuts (auto) 7.6, Absolute Lymphs (auto) 1.36, Nucleated RBC % 0 01/13/22 05:14: Sodium 139, Potassium 3.7, Chloride 106, Carbon Dioxide 27.0, Anion Gap 6, BUN 22 H, Creatinine 1.22, Estim Creat Clear Calc 52.32, Est GFR (MDRD) Af Amer 74, Est GFR (MDRD) Non-Af 61, BUN/Creatinine Ratio 18.0, Glucose 182 H, Calcium 8.3 L 01/13/22 06:52: POC Glucose 170 H Micro: Microbiology 01/12/22 07:40 Mucosa - Nasopharyngeal Respiratory Panel (PCR) - Final 01/11/22 15:05 Nasal Secretion SARS-CoV-2 & FLU Antigen (Rapid) - Final Physical Exam Const alert, oriented x3 and no apparent distress General Appearance: cooperative HEENT normocephalic and moist oral mucous membranes Eyes PERRL, EOMs intact bilaterally and conjunctivae normal Neck supple and no JVD Resp normal respiratory effort, no retractions and no use of accessory muscles Auscultation: diminished lung sounds; Negative for crackles, rales, rhonchi or wheezes Cardio regular rate, regular rhythm, S1 normal heart sound, S2 normal heart sound and no murmurs GI soft to palpation, non-tender and non-distended; Negative for hepatosplenomegaly Extremity no clubbing, cyanosis or edema Skin no rashes or lesions noted Neuro no focal motor deficits and no sensory deficits noted Psych affect normal Appearance: appropriate Assessment & Plan Assessment/Plan (1) Viral syndrome: (2) 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, adult: PLAN: 1. COPD exacerbation ? Unsure as to the initial cause between viral syndrome versus allergies, his says that he was mowing the lawn recently ? COVID and flu antigens were negative ? Continue with duo nebs as well as steroids PT/OT ? CT of the chest was negative for any consolidation but does show signs of emph ysema ? Respiratory panel is negative ? Do nocturnal pulse ox going to evaluate the data may need oxygen at night through his CPAP, he was on room air yesterday we will see how he does today during the day 2. Paroxysmal A. fib/morbid obesity/chronic CHF/HTN/HLD ? Recent echo with an EF of 65% and no diastolic dysfunction ? Continue with his home blood pressure medication ? Can his home Lasix, does not appear to be fluid overloaded ? BMI of 44.3, discussed lifestyle modifications ? Continue with Coumadin and monitor INR 3. DM2 with CKD 3a ? Hold metformin continue on scale and on ? We will monitor and make adjustments as not to set ? Renal functions at baseline ? Accu-Cheks AC at bedtime DVT: Coumadin Charges/Coding Visit Charges OBSV E&M: 40814 Subsequent observation care L2
[2022-01-13] MEDS: Doxazosin 1 MG Tablet 1.5 MG PO (10:07)
[2022-01-13] MEDS: predniSONE 20 MG Tablet 40 MG PO (10:07)
[2022-01-13] MEDS: MESALAMINE 400 MG CAPSULE.DR 800 MG PO (10:08)
[2022-01-13] MEDS: Potassium Chloride Oral Tablet 20 MEQ PO (10:08)
[2022-01-13] MEDS: Furosemide 40 MG Tablet PO (10:08)
[2022-01-13] MEDS: Flecainide 100 MG Tablet 50 MG PO (10:09)
[2022-01-13] MEDS: Metoprolol Tartrate 50 MG Tablet PO (10:12)
[2022-01-13 11:25] LABS: Bedside Glucose 182 mg/dL (74-106)
--- NOTE | 2022-01-13 14:40 | CASEMGMT ---
Addendum entered by Jasmina Cohen 01/13/22 17:27: Call received back from Shelby @ [facility] [place]. They do not have O2 concentrators available and are unable to supply home oxygen for pt. Pt made aware. Pt reviewed DME list again and chose [facility]. Script obtained and faxed to [facility]. Call to Edita @ [facility]. She states they are not able to deliver both portable oxygen to [facility] and then do home delivery. They will only be able to make one trip to [place] this PM. She states if someone is able to be @ pt's home, they can deliver the concentrator and portability to his home. MYRNA GIRALDO spoke w/pt and . 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 voiced concern re: remembering home O2 instructions from [facility] @ delivery. MYRNA GIRALDO spoke w/both nursing and CPS. CPS to be notified when returns w/portable oxygen from [facility] to provide education on home O2. Pt and agreeable to this plan. D/c summary faxed to [employer] co per Edita request. Original Note: MYRNA GIRALDO NOTE: Overnight trending pulse ox completed last night. MYRNA GIRALDO reviewed documentation and also spoke w/resp therapy dept. Pt did not need any oxygen through PAP last PM, therefore does not qualify for O2 @ HS. Home ambulatory oxygen testing has been completed as well. Pt qualifies for O2 @ 2l/m w/exertion only. Pt has been provided w/list of local DME companies. Pt prefers [facility]. Script obtained from Dr Castellanos and faxed to [facility] [place]. Call to Shelby [facility] [place] and she was made aware. She states they may not have a concentrator available to provide to pt, but she will check and call MYRNA GIRALDO back. Awaiting return call. Inga POLK RN, CM
--- NOTE | 2022-01-13 15:21 | PCM.DC ---
Discharge Instructions Diet Discharge Diet: Low fat / Low cholesterol and Carb Control Diet Activity Discharge Activity: Return to Normal Activity Dressing / Incision Call your doctor if you observe: Fever of 101 or Higher, Shortness of breath, Dizziness, Fainting spells, Swelling in the ankles, Chest pain and Increased palpitations (irregular heartbeat) Follow Up Care Test Results: Test results from this visit will be discussed in further detail at your follow-up appointment, if applicable. Discharge Plan Admission Admit Date/Time: 01/11/22 20:46 Attending Provider: Baldemar Castellanos Primary Care Provider: Fransisca Wright Consulting Providers: Brandon Michel Instructions Additional Instructions / Restrictions: okay to drive while you are using oxygen, you will just need to use your portable tank while driving. Discharge Orders/Prescriptions Prescriptions: New prednisone 20 mg Tablet 40 mg PO BREAKFAST 7 Days Qty: 14 RF: 0 Continued metformin 500 mg tablet 500 mg PO BID RF: 0 furosemide 20 mg tablet 20 - 40 mg PO DAILY PRN (Reason: Edema) RF: 0 warfarin 2.5 mg tablet 2.5 mg PO DAILY Qty: 90 RF: 3 Stiolto Respimat 2.5-2.5 mcg/actuation mist 2 puff inhalation DAILY Qty: 4 RF: 6 potassium chloride 20 MEQ tablet 20 meq PO DAILY RF: 0 atorvastatin 40 MG tablet 40 mg PO QHS RF: 0 metoprolol tartrate 100 mg tablet 50 mg PO BID RF: 0 fexofenadine 180 mg tablet 180 mg PO DAILY PRN PRN (Reason: Allergic Symptoms) RF: 0 mesalamine 800 mg tablet,delayed release (DR/EC) 800 mg PO BID RF: 0 prazosin 2 mg capsule 2 mg PO BID Qty: 180 RF: 3 flecainide 50 mg tablet 50 mg PO Q12H Qty: 180 RF: 3 Referrals / Follow Up: Fransisca Wright PA [Primary Care Provider] - Within 1 Week Disposition Disposition (needs filled in before D/C Order can be placed): Home, Self Care
--- NOTE | 2022-01-13 15:32 | DS.PCM_ITS ---
Providers Date of Admission: 01/11/22 Primary Care Physician: EDER Helms Reason For Visit: VIRAL SYNDROME Diagnosis Discharge Diagnosis (1) Viral syndrome: Status: Acute Code(s): B34.9 - Viral infection, unspecified (2) 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, adult: Status: Chronic Code(s): Z68.41 - Body mass index [BMI] 40.0-44.9, adult Medications at Discharge Home Medications potassium chloride 20 meq PO DAILY 09/27/15 atorvastatin 40 mg PO QHS 08/20/16 metformin 500 mg tablet 500 mg PO BID 05/09/19 furosemide 20 mg tablet 20 - 40 mg PO DAILY PRN tab 04/01/20 metoprolol tartrate 50 mg PO BID 02/17/21 warfarin 2.5 mg tablet 2.5 mg PO DAILY #90 tab 05/26/21 prazosin 2 mg capsule 2 mg PO BID #180 cap 11/15/21 flecainide 50 mg tablet 50 mg PO Q12H #180 tab 11/16/21 fexofenadine 180 mg PO DAILY PRN PRN 01/11/22 tiotropium 2.5 mcg-olodaterol 2.5 mcg/actuation mist for inhalation 2 puff INHALATION DAILY #4 g 01/11/22 mesalamine 800 mg PO BID 01/12/22 prednisone 40 mg PO BREAKFAST 7 Days #14 tab 01/13/22 Hospital Course Operations None Procedures None Summary of Care Provided Minutes Spent on Discharge: 46 Hospital Course: Per HPI: AVELINA BULL, is a 76 M with a significant history of lung cancer status post radiation; COPD; obstructive sleep apnea; paroxysmal A. fib status post ablation; chronic diastolic heart failure; obstructive sleep apnea on home CPAP who presents with chills and rigors that started the same day of p resentation. Associated with his symptoms is weakness; shortness of breath; intermittent cough productive for white to yellow sputum. Also he reports diarrhea. On the day representation his bowels moved about 3 times. At the emergency department with ambulation his oxygen saturation dropped to 87% so a decision was made for patient to stay at the hospital. Hospital Course: 1. COPD exacerbation?76-year-old male present to the hospital with shortness of breath. He did recover very quickly and did not need oxygen at rest or overnight while on his CPAP however today on discharge she did require several liters of oxygen to maintain his oxygen saturations as he was 85% on room air with ambulation, all this information is available on the prescription for the oxygen. We will continue with steroids for 7 days and have him follow-up with his PCP next week for monitoring as well as his information systems administrator. I discussed with him the plan for discharge today he expressed understanding Angela of is going home and he wants to go home today. I did present the option of staying for another 24 to 48 hours however he would prefer to go home and come back if he were to get worse. 2. Paroxysmal A. fib, morbid obesity, chronic CHF, hypertension, hyperlipidemia, type 2 diabetes with chronic kidney disease stage IIIa are all chronic medical conditions which complicate his care. His home medications were used where probe Physical Exam Const alert, oriented x3 and no apparent distress General Appearance: cooperative HEENT normocephalic and moist oral mucous membranes Eyes PERRL, EOMs intact bilaterally and conjunctivae normal Neck supple and no JVD Resp normal respiratory effort, no retractions and no use of accessory muscles Auscultation: diminished lung sounds; Negative for crackles, rales, rhonchi or wheezes Cardio regular rate, regular rhythm, S1 normal heart sound, S2 normal heart sound and no murmurs GI soft to palpation, non-tender and non-distended; Negative for hepatosplenomegaly Extremity no clubbing, cyanosis or edema Skin no rashes or lesions noted Neuro no focal motor deficits and no sensory deficits noted Psych affect normal Appearance: appropriate Weight / BMI Weight Weight: 300 lb 14.896 oz Body Mass Index (BMI) 44.7 ABG / Lab / Microbiology Data Result Diagrams: 01/13/22 05:14 01/13/22 05:14 Laboratory: Laboratory Results - last 24 hr 01/12/22 16:46: POC Glucose 285 H 01/12/22 21:17: POC Glucose 341 H 01/13/22 05:14: PT 22.0 H, INR 2.0 01/13/22 05:14: WBC 9.8, RBC 3.79 L, Hgb 11.5 L, Hct 35.2 L, MCV 92.9, MCH 30.3, MCHC 32.7, RDW Std Deviation 48.9 H, RDW Coeff of Jadon 14.4, Plt Count 187, MPV 9.9, Immature Gran % (Auto) 0.500, Neut % (Auto) 77.6 H, Lymph % (Auto) 13.9 L, [place] % (Auto) 7.6, Eos % (Auto) 0.3, Baso % (Auto) 0.1, Absolute Neuts (auto) 7.6, Absolute Lymphs (auto) 1.36, Nucleated RBC % 0 01/13/22 05:14: Sodium 139, Potassium 3.7, Chloride 106, Carbon Dioxide 27.0, Anion Gap 6, BUN 22 H, Creatinine 1.22, Estim Creat Clear Calc 52.32, Est GFR (MDRD) Af Amer 74, Est GFR (MDRD) Non-Af 61, BUN/Creatinine Ratio 18.0, Glucose 182 H, Calcium 8.3 L 01/13/22 06:52: POC Glucose 170 H 01/13/22 11:22: POC Glucose 182 H Microbiology: Microbiology 01/12/22 07:40 Mucosa - Nasopharyngeal Respiratory Panel (PCR) - Final 01/11/22 15:05 Nasal Secretion SARS-CoV-2 & FLU Antigen (Rapid) - Final D/C Instructions Discharge Diet: Low fat / Low cholesterol and Carb Control Diet Call your doctor if you observe: Fever of 101 or Higher, Shortness of breath, Dizziness, Fainting spells, Swelling in the ankles, Chest pain and Increased palpitations (irregular heartbeat) Meaningful Use Info Meaningful Use Diagnoses (Choose all that apply): None applicable Discharge Plan Admission Admit Date/Time: 01/11/22 20:46 Attending Provider: Baldemar Castellanos Primary Care Provider: Fransisca Wright Consulting Providers: Brandon Michel Instructions Additional Instructions / Restrictions: okay to drive while you are using oxygen, you will just need to use your portable tank while driving. Discharge Orders/Prescriptions Prescriptions: New prednisone 20 mg Tablet 40 mg PO BREAKFAST 7 Days Qty: 14 RF: 0 Continued metformin 500 mg tablet 500 mg PO BID RF: 0 furosemide 20 mg tablet 20 - 40 mg PO DAILY PRN (Reason: Edema) RF: 0 warfarin 2.5 mg tablet 2.5 mg PO DAILY Qty: 90 RF: 3 Stiolto Respimat 2.5-2.5 mcg/actuation mist 2 puff inhalation DAILY Qty: 4 RF: 6 potassium chloride 20 MEQ tablet 20 meq PO DAILY RF: 0 atorvastatin 40 MG tablet 40 mg PO QHS RF: 0 metoprolol tartrate 100 mg tablet 50 mg PO BID RF: 0 fexofenadine 180 mg tablet 180 mg PO DAILY PRN PRN (Reason: Allergic Symptoms) RF: 0 mesalamine 800 mg tablet,delayed release (DR/EC) 800 mg PO BID RF: 0 prazosin 2 mg capsule 2 mg PO BID Qty: 180 RF: 3 flecainide 50 mg tablet 50 mg PO Q12H Qty: 180 RF: 3 Referrals / Follow Up: Fransisca Wright, PA [Primary Care Provider] - Within 1 Week Disposition Disposition (needs filled in before D/C Order can be placed): Home, Self Care Charges/Coding Visit Charges OBSV E&M: 98464 Observation care discharge
[2022-01-13 18:35] LABS: Bedside Glucose 264 mg/dL (74-106)
== END 2022-01-13 19:25 | disposition home or self-care (01) ==
LOC: ED 20:39 → MS3 20:55
PROVIDERS: Emergency Medicine; Admitting Provider Hospitalist; Emergency Provider Emergency Medicine; PCP Physician Assistant; Visit Provider Family Medicine
DX: J44.1 Chronic obstructive pulmonary disease with (acute) exacerbation (principal); I13.0 Hypertensive heart and chronic kidney disease with heart failure and stage 1 through stage 4 chronic kidney disease, or unspecified chronic kidney disease; I50.32 Chronic diastolic (congestive) heart failure; E11.22 Type 2 diabetes mellitus with diabetic chronic kidney disease; I48.0 Paroxysmal atrial fibrillation; E66.01 Morbid (severe) obesity due to excess calories; Z68.41 Body mass index [BMI] 40.0-44.9, adult; N18.31 Chronic kidney disease, stage 3a; Z79.01 Long term (current) use of 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s; Z79.84 Long term (current) use of oral hypoglycemic drugs; E78.5 Hyperlipidemia, unspecified; G47.33 Obstructive sleep apnea (adult) (pediatric); Z87.891 Personal history of nicotine dependence; Z79.899 Other long term (current) drug therapy; I44.0 Atrioventricular block, first degree
CPT/HCPCS: 36415; 71045; 71275; 80048; 80076; 81001; 82962; 83605; 85025; 85379; 85610; 87040; 87428; 87633; 93005; 94640; 94660; 96361; 96374; 99218; 99251; 99285; J7030; Q9967; A4216; G0378; G0463

== ENCOUNTER 2022-02-11 09:17 | Outpatient (RCR) | payer MEDICARE, SELFPAY ==
[2022-01-04 21:30] VITALS: BMI 44.6
[2022-02-11 09:30] LABS: INR Fingerstick 2.4; Prothrombin Time Fingerstick 27.8 SEC (11.7-14.9)
== END 2022-03-06 03:14 | disposition home or self-care (01) ==
LOC: LAB 09:17
PROVIDERS: PCP Physician Assistant; Referring Provider Internal Medicine Cardiovascular Disease; Visit Provider Internal Medicine Cardiovascular Disease
DX: Z79.01 Long term (current) use of 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s (principal)
CPT/HCPCS: 36416; 85610

== ENCOUNTER 2022-03-07 12:40 | Outpatient (RCR) | payer MEDICARE, SELFPAY ==
[2022-03-06 03:14] VITALS: BMI 44.6
[2022-03-07 12:50] LABS: INR Fingerstick 2.1; Prothrombin Time Fingerstick 24.5 SEC (11.7-14.9)
== END 2022-03-07 18:00 | disposition home or self-care (01) ==
LOC: LAB 12:40
PROVIDERS: PCP Physician Assistant; Referring Provider Internal Medicine Cardiovascular Disease; Visit Provider Internal Medicine Cardiovascular Disease
DX: Z79.01 Long term (current) use of 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s (principal)
CPT/HCPCS: 36416; 85610

== ENCOUNTER 2022-04-15 14:15 | Outpatient (RCR) | payer MEDICARE, SELFPAY ==
[2022-04-07 00:29] VITALS: BMI 44.6
[2022-04-08 10:50] LABS: INR Fingerstick 1.6; Prothrombin Time Fingerstick 19.6 SEC (11.7-14.9)
[2022-04-15 14:25] LABS: Prothrombin Time Fingerstick 23.9 SEC (11.7-14.9)
== END 2022-04-15 18:00 | disposition home or self-care (01) ==
LOC: LAB 14:15
PROVIDERS: PCP Physician Assistant; Referring Provider Internal Medicine Cardiovascular Disease; Visit Provider Internal Medicine Cardiovascular Disease
DX: I48.0 Paroxysmal atrial fibrillation (principal); I48.92 Unspecified atrial flutter; Z79.01 Long term (current) use of 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s
CPT/HCPCS: 36416; 85610

== ENCOUNTER 2022-04-24 18:38 | Emergency (ER) | payer MEDICARE, SELFPAY ==
[2022-04-24] VITALS (9 sets, daily range): BP systolic 113–127; BP diastolic 39–74; PULSE 60–67; RESP 14–18; TEMP 36.8–38.1; O2SAT 90–98; BMI 45.1
--- NOTE | 2022-04-24 18:48 | EKG12_ITS ---
Test Reason : SOB Blood Pressure : / mmHG Vent. Rate : 064 BPM Atrial Rate : 064 BPM P-R Int : 236 ms QRS Dur : 096 ms QT Int : 416 ms P-R-T Axes : 066 -23 018 degrees QTc Int : 429 ms Sinus rhythm with 1st degree A-V block Otherwise normal ECG Confirmed by CRISTIANE VILLEDA, ANIYA ([id number]), department editor NEDA JIN ([id number]) on 04/25/2022 10:53:19 AM Referred By: Confirmed By:ANIYA SAUER MD
--- NOTE | 2022-04-24 18:49 | ED.VIS.DYS ---
HPI History of Present Illness Chief Complaint: Weakness Informant: patient and EMS Onset/Context/Timing Onset: Yesterday Context: gradual and onset Timing: Continuous Quality: Positive for Dyspnea on exertion; Negative for Orthopnea Current Severity: Moderate Maximum Severity: Moderate Worsened by: Exertion and Coughing Relieved by: Rest Associated Symptoms cough Chest Pain: Positive for None Narrative Narrative: Patient states he was working in his basement yesterday and there was mold, and he fears that may have triggered him to have an increased cough and dyspnea. No known fevers or chills but he began getting very weak today, trouble getting out of his chair which is unusual for him, here he is a temperature of 100.6. States he was having trouble walking because of being very weak. Cough is occasionally productive of treviño or green sputum which is not new yesterday. He denies orthopnea. He has chronic leg edema that is no different than usual. States he has a history of COPD and he is not on oxygen at home, he states he has heart problems but he does not know specifics, it appears he has chronic diastolic heart failure and paroxysmal atrial fibrillation and flutter. Anticoagulated on warfarin. Denies any bleeding recently. No pleuritic chest discomfort. Vaccinated against COVID, no contact with anyone with COVID that he knows of or other sick persons. 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 SILVER (obstructive sleep apnea) Paroxysmal atrial fibrillation Paroxysmal atrial flutter Pure hypercholesterolemia Sleep apnea SOB (shortness of breath) Tachycardia Type 2 diabetes mellitus Ulcerative colitis Home Medications potassium chloride 20 mEq tablet,extended release(part/cryst) 20 meq PO DAILY Low potassium 09/27/15 [History Last Taken 01/11/22] atorvastatin 40 mg tablet 40 mg PO QHS Cholesterol 08/20/16 [History Last Taken 01/10/22] metformin 500 mg tablet 500 mg PO BID Diabetes 05/09/19 [History Last Taken 01/11/22] furosemide 20 mg tablet 20 - 40 mg PO DAILY PRN Edema 04/01/20 [History Last Taken 01/11/22] metoprolol tartrate 100 mg tablet 50 mg PO BID Afib 02/17/21 [History Last Taken 01/11/22] warfarin 2.5 mg tablet 2.5 mg PO DAILY #90 tabs 05/26/21 [Rx Last Taken 01/10/22] prazosin 2 mg capsule 2 mg PO BID #180 caps 11/15/21 [Rx Last Taken 01/11/22] flecainide 50 mg tablet 50 mg PO Q12H #180 tabs 11/16/21 [Rx Last Taken 01/11/22] fexofenadine 180 mg tablet 180 mg PO DAILY PRN PRN Allergic Symptoms 01/11/22 [History Last Taken Unknown] tiotropium 2.5 mcg-olodaterol 2.5 mcg/actuation mist for inhalation (Stiolto Respimat) 2 puff inhalation DAILY #4 grams 01/11/22 [Rx Last Taken 01/11/22] mesalamine 800 mg tablet,delayed release 800 mg PO BID colitis 01/12/22 [History Last Taken 01/11/22] prednisone 20 mg tablet 40 mg PO BREAKFAST 7 days #14 tabs 01/13/22 [Rx Last Taken Unknown] dexamethasone 6 mg tablet (Decadron) 6 mg PO DAILY #6 tabs 04/24/22 [Rx Last Taken Unknown] doxycycline hyclate 100 mg capsule 100 mg PO BID #20 caps 04/24/22 [Rx Last Taken Unknown] molnupiravir 200 mg capsule (EUA) 800 mg PO Q12H 5 days #40 caps 04/24/22 [Rx Last Taken Unknown] Allergy/AdvReac Type Severity Reaction Status Date / Time amlodipine Allergy Severe Rash Verified 04/24/22 18:42 Penicillins Allergy Hives Verified 04/24/22 18:42 azithromycin AdvReac Diarrhea Verified 04/24/22 18:42 celecoxib [From Celebrex] AdvReac RECTAL Verified 04/24/22 18:42 BLEEDING Family History Mother Colon cancer Heart disease Father CAD (coronary artery disease) Sister Diabetes Brother Heart disease Diabetes Surgical History History of bilateral hip replacements History of knee surgery History of radiofrequency ablation procedure for cardiac arrhythmia (~08/11/15) Social History Smoking Status: Former smoker alcohol intake: current details: rare substance use type: does not use caffeine: Yes Type: coffee Number of servings: 3 ROS ROS ED Constitutional Constitutional ED: Reports chills, fatigue and malaise Eyes Eyes: Denies change in vision or diplopia ENT ENT ED: Denies rhinorrhea or sore throat Cardiovascular Cardiovascular: Reports pedal edema; Denies chest pain, orthopnea or palpitations Respiratory/Chest Respiratory/Chest: Reports cough, dyspnea and dyspnea on exertion; Denies orthopnea Gastrointestinal Gastrointestinal: Reports diarrhea; Denies abdominal pain, nausea or vomiting Genitourinary Genitourinary ED: Denies dysuria or hematuria Musculoskeletal Musculoskeletal: Denies back pain or neck pain Integumentary Denies abscess or rash Neurologic Neurologic: Denies paresthesias or weakness Psychiatric Psychiatric: Denies anxiety or suicidal thoughts EXAM Physical Exam Const Vital Signs: 04/24/22 18:40 04/24/22 18:42 04/24/22 18:42 Temperature 100.6 F H 100.6 F H Temperature Source Oral Oral Pulse Rate 61 61 Respiratory Rate 15 15 Respiratory Effort Short of Breath Respiratory Pattern Normal Blood Pressure 127/55 H 127/55 H Blood Pressure Mean 79 79 Pulse Ox 90 90 Oxygen Delivery Method Room Air Room Air Oxygen Flow Rate (L/min) 04/24/22 18:44 04/24/22 18:50 04/24/22 19:07 Temperature Temperature Source Pulse Rate 64 Respiratory Rate 14 Respiratory Effort Respiratory Pattern Blood Pressure Blood Pressure Mean Pulse Ox 94 Oxygen Delivery Method Room Air Room Air Oxygen Flow Rate (L/min) 04/24/22 19:44 04/24/22 20:42 04/24/22 20:43 Temperature 100.2 F H 98.2 F Temperature Source Oral Oral Pulse Rate 67 61 60 Respiratory Rate 18 15 15 Respiratory Effort Respiratory Pattern Blood Pressure 127/55 H 116/39 L 116/39 L Blood Pressure Mean 79 64 64 Pulse Ox 93 92 95 Oxygen Delivery Method Room Air Nasal Cannula Nasal Cannula Oxygen Flow Rate (L/min) 2 2 Positive well nourished, well developed and obese Constitutional Narrative: Malaised-appearing, no distress General Appearance ED: well developed and NAD Nutritional Appearance: obese HEENT Reports moist mucous membranes normocephalic and atraumatic Eyes PERRL and EOMs intact bilaterally Neck full ROM, no lymphadenopathy, supple, no meningeal signs and no JVD Resp normal respiratory effort Resp Narrative: Bibasilar rhonchi otherwise clear Cardio regular rate, regular rhythm and no murmurs Rate: Negative for tachycardic GI non-tender and non-distended Auscultation: normoactive bowel sounds Palpation: soft Back/Spine no CVA tenderness General Back: other FROM Extremity normal to inspection and no calf tenderness General Extremety ED: Yes edema; Negative for pulses abnormal or tenderness General Extremity: edema bilateral lower extremity Details: moderate (symmetric, appears chronic); Negative for pulses abnormal Neuro oriented x3, CN's II-XII intact bilaterally and no sensory deficits noted Sensorium / Orientation: awake and alert Motor Exam: strength 5/5 throughout Skin no rashes or lesions noted and no wounds MDM MDM MDM Narrative Medical decision making narrative: 1 view chest x-ray my interpretation is negative. He is feeling better after nebulizer treatments with albuterol. His COVID is positive. I discussed that with him. He has COPD and is not on home oxygen all the time, but he then later told me that he uses it at night but just his 2 L concentrator and he also has tanks at home. Nursing got him up to the bedside and his oxygen saturations transiently dropped to 86% at their lowest, quickly then recovering to 90-91%. She placed him on 2 L which took him up to 95-97% and he felt better during the rest of his stay after the nebulizer treatments. His other testing is basically negative for acute failure. He is anticoagulated on warfarin, he is on flecainide which is a contraindication for Paxlovid. I feel the patient can be discharged home safely, he is breathing well and not septic or with unstable hemodynamics, nor unstable clinically. I advise he use his oxygen and check his pulse ox he has a pulse oximeter. I will prescribe him molnupiravir as the next recommended alternative to Paxlovid, in addition to steroids and antibiotics, the latter to prevent bacterial superinfection in context of a COPD exacerbation, and since his urine shows signs of infection although he does not have symptoms of UTI I am sending it for culture and she was in the antibiotic to be doxycycline in order to potentially cover this better and avoid other interactions with his medications (fiordaliza flecainide). He is a little subtherapeutic on his warfarin at 1.7 so I do not think he needs to adjust it in context of the Levaquin. He has family that understands this as he does he and they are comfortable with all of this. Lab Data Attestation: I reviewed the patient's lab results. Labs: Laboratory Results - last 24 hr 04/24/22 04/24/22 04/24/22 19:15 19:15 19:15 WBC 7.0 RBC 4.32 L Hgb 12.7 L Hct 39.8 L MCV 92.1 MCH 29.4 MCHC 31.9 L RDW Std Deviation 46.4 H RDW Coeff of Jadon 13.6 Plt Count 141 L MPV 10.2 Immature Gran % (Auto) 0.300 Neut % (Auto) 75.7 H Lymph % (Auto) 12.4 L [place] % (Auto) 10.9 H Eos % (Auto) 0.4 Baso % (Auto) 0.3 Absolute Neuts (auto) 5.3 Absolute Lymphs (auto) 0.86 Nucleated RBC % 0 PT 19.6 H INR 1.7 APTT 40.6 H Sodium 138 Potassium 3.9 Chloride 102 Carbon Dioxide 25.0 Anion Gap 11 BUN 15 Creatinine 1.51 H Estim Creat Clear Calc 41.62 Est GFR (MDRD) Af Amer 58 L Est GFR (MDRD) Non-Af 48 L BUN/Creatinine Ratio 9.9 L Glucose 143 H Lactic Acid Calcium 8.2 L Total Bilirubin 1.50 H AST 25 ALT 26 Alkaline Phosphatase 59 Troponin I High Sens 17 B-Natriuretic Peptide Total Protein 7.0 Albumin 3.1 L Globulin 3.9 Albumin/Globulin Ratio 0.8 L Urine Color Urine Clarity Urine pH Ur Specific Wayne Urine Protein Urine Glucose (UA) Urine Ketones Urine Occult Blood Urine Nitrite Urine Bilirubin Urine Urobilinogen Ur Leukocyte Esterase Urine RBC Urine WBC Ur Squamous Epith Cells Urine Bacteria Coarse Granular Casts Urine Mucus 04/24/22 04/24/22 04/24/22 19:15 19:15 19:30 WBC RBC Hgb Hct MCV MCH MCHC RDW Std Deviation RDW Coeff of Jadon Plt Count MPV Immature Gran % (Auto) Neut % (Auto) Lymph % (Auto) [place] % (Auto) Eos % (Auto) Baso % (Auto) Absolute Neuts (auto) Absolute Lymphs (auto) Nucleated RBC % PT INR APTT Sodium Potassium Chloride Carbon Dioxide Anion Gap BUN Creatinine Estim Creat Clear Calc Est GFR (MDRD) Af Amer Est GFR (MDRD) Non-Af BUN/Creatinine Ratio Glucose Lactic Acid 1.4 Calcium Total Bilirubin AST ALT Alkaline Phosphatase Troponin I High Sens B-Natriuretic Peptide 106.1 H Total Protein Albumin Globulin Albumin/Globulin Ratio Urine Color Yellow Urine Clarity Clear Urine pH 5.0 Ur Specific Wayne 1.020 Urine Protein 100 H Urine Glucose (UA) Normal Urine Ketones 5 H Urine Occult Blood 150 H Urine Nitrite Negative Urine Bilirubin 1 H Urine Urobilinogen 4 H Ur Leukocyte Esterase 500 H Urine RBC 5-10 SEEN Urine WBC 10-25 SEEN Ur Squamous Epith Cells 0-5 SEEN Urine Bacteria 2+ Coarse Granular Casts 5-10 SEEN Urine Mucus 0 SEEN Radiography Diagnostic Testing: Clinical Impression(s) from Imaging Studies Chest X-Ray 04/24/22 19:46 IMPRESSION: There are no acute findings. Electronically Signed: Yefri Keen MD at 20:11 EDT Reading Location ID and State: [facility] / [place] , Service support , Rhythm Strip Rhythm Strip: Sinus Rhythm Rate: 65 Ectopy: None EKG Initial EKG: Attestation: I personally reviewed and interpreted this EKG as follows: Interpretation: Sinus Rhythm, No Acute Injury Pattern and AV Block (1st deg) Discharge Plan Triage Chief Complaint: Weakness ED Provider: Alex Kenney Dx/Rx/DC Orders Clinical Impression: COVID-19, Paroxysmal atrial fibrillation, COPD with exacerbation, Hypoxemia, Subtherapeutic international normalized ratio (INR) Instructions: Coronavirus Disease 2019 (COVID-19): Caring for Yourself or Others, ED COPD Flare Prescriptions: New dexamethasone [Decadron] 6 mg tablet 6 mg PO DAILY Qty: 6 0RF Rx Instructions: start 04/25 doxycycline hyclate 100 mg capsule 100 mg PO BID Qty: 20 0RF molnupiravir 200 mg capsule 800 mg PO Q12H 5 Days Qty: 40 0RF No Action metformin 500 mg tablet 500 mg PO BID furosemide 20 mg tablet 20 - 40 mg PO DAILY PRN (Reason: Edema) warfarin 2.5 mg tablet 2.5 mg PO DAILY Qty: 90 3RF Protocol: Dose Management Condition: Monday Dose/Route: 2.5 mg Instruction: 1 x 2.5 mg tablet Condition: Monday Dose/Route: 2.5 mg Instruction: 1 x 2.5 mg tablet Condition: Monday Dose/Route: 2.5 mg Instruction: 1 x 2.5 mg tablet Condition: Monday Dose/Route: 2.5 mg Instruction: 1 x 2.5 mg tablet Condition: Dose/Route: 2.5 mg Instruction: 1 x 2.5 mg tablet Condition: Monday Dose/Route: 5 mg Instruction: 2 x 2.5 mg tablets Condition: Monday Dose/Route: 2.5 mg Instruction: 1 x 2.5 mg tablet Protocol Text: Adjustment Start Date: Monday04/15/22 INR Value: 2.0 INR Date: 04/15/22 Recheck Date: 04/29/22 Stiolto Respimat 2.5-2.5 mcg/actuation mist 2 puff inhalation DAILY Qty: 4 6RF potassium chloride 20 MEQ tablet 20 meq PO DAILY Label Comments: supplement atorvastatin 40 MG tablet 40 mg PO QHS Label Comments: cholesterol metoprolol tartrate 100 mg tablet 50 mg PO BID fexofenadine 180 mg tablet 180 mg PO DAILY PRN PRN (Reason: Allergic Symptoms) mesalamine 800 mg tablet,delayed release (DR/EC) 800 mg PO BID prednisone 20 mg Tablet 40 mg PO BREAKFAST 7 Days Qty: 14 0RF prazosin 2 mg capsule 2 mg PO BID Qty: 180 3RF flecainide 50 mg tablet 50 mg PO Q12H Qty: 180 3RF Primary Care Provider: Fransisca Wright Referrals: Fransisca Wright PA [Primary Care Provider] - As Needed Activity Restrictions/Additional Instructions: Try to get a home portable pulse oximeter and closely watch your oxygen levels periodically; use your oxygen at 2L. If you stay below 89% for more than a minute or so despite using your oxygen, and/or you are feeling like your breathing is getting worse, return to the emergency department for further evaluation. You may safely turn your oxygen up to 3L at home. Currently, CDC recommendations state that you should stay home through day 5 of symptoms, then as long as symptoms are improving, if you need to go to work or somewhere else you may for days 6-10 as long as you are wearing a mask the entire time. If you are feeling better after day 10 you may resume life is normal. Sometimes antibiotics can raise your INR; yours is low today at 1.7 so I would continue your regular dosing, except do not change it on Monday, take only 2.5 mg once instead of your usual 5. Disposition Disposition: Home, Self Care
[2022-04-24] MEDS: Albuterol 2.5 MG/3 ML VIAL.NEB. INHALATION ×2 (18:59)
[2022-04-24] MEDS: Acetaminophen 500 MG Tablet 1000 MG PO (19:00)
[2022-04-24 19:21] LABS: Absolute Lymphocyte Count 0.86 X10^3/uL (0.83-4.51); Absolute Neutrophil Count 5.3 X10^3/uL (2.0-7.7); Basophil# 0.02 X10^3/uL; Basophil% 0.3 % (0-1); Eosinophil# 0.03 X10^3/uL; Eosinophils% 0.4 % (0-5); Hematocrit 39.8 % (40-54); Hemoglobin 12.7 g/dL (13.0-16.5); Lymphocyte # 0.86 X10^3/ul (0.83-4.51); Lymphocyte % 12.4 % (19-41); Mean Corp Hgb Conc 31.9 g/dL (32-36); Mean Corpuscular Hgb 29.4 pg (27.0-32.0); Mean Corpuscular Volume 92.1 fL (80-94); Mean Platelet Vol. 10.2 fl (6.2-12.0); Monocyte# 0.76 X10^3/uL; Monocyte% 10.9 % (0-10); NRBC Flagged by Analyzer 0 % (0-5); Neutrophil # 5.27 X10^3/uL (2.7-7.7); Neutrophil % 75.7 % (47-70); Platelet Count 141 K/mm3 (150-450); RBC Distribution Width CV 13.6 % (11.6-14.6); RBC Distribution Width SD 46.4 fl (35.1-43.9); Red Blood Count 4.32 M/mm3 (4.6-6.2)
[2022-04-24 19:37] LABS: Mucous, Urine 0 SEEN /hpf (<or=2+)
[2022-04-24 19:38] LABS: ALB/GLOB Ratio 0.8 RATIO (0.9-2.4); AST(SGOT) 25 U/L (15-37); Alanine Aminotransfer ALT/SGPT 26 U/L (16-61); Albumin, Serum 3.1 g/dL (3.2-5.0); Alkaline Phosphatase 59 U/L (45-117); Anion Gap 11 (5-15); BUN 15 mg/dL (7-18); BUN/Creat Ratio 9.9 RATIO (10-20); Calcium,Total 8.2 mg/dL (8.5-10.1); Chloride 102 mmol/L (98-107); Creatinine, Serum 1.51 mg/dL (0.70-1.30); EST Glomerular Filtration Rate 48 mL/min (>60); Est Glom Filt Rate - Afr Amer 58 mL/min (>60); Estimated Creatinine Clearance 41.62 ml/min; Globulin 3.9 g/dL (2.2-4.2); Glucose 143 mg/dL (74-106); Potassium 3.9 mmol/L (3.5-5.1); Sodium Level 138 mmol/L (136-145); Troponin-I HS 17 pg/mL (3.0-78.0)
[2022-04-24 19:41] LABS: International Normalized Ratio 1.7; Partial Thromboplast Time 40.6 Seconds (24.1-36.2); Prothrombin Time (Protime)PT. 19.6 SECONDS (11.7-14.9)
[2022-04-24 19:43] LABS: Color, Urine Yellow (Yellow); Glucose, Dipstick Normal (Normal); Ketone-Dipstick 5 mg/dl (Negative); Leukocyte Esterase-Dipstick 500 /ul (Negative); Nitrite-Dipstick Negative (Negative); Occult Blood-Urine 150 /ul (Negative); Protein-Dipstick 100 mg/dl (Negative); Urine Clarity Clear (Clear); Urine Urobilinogen 4 mg/dl (Normal)
[2022-04-24 19:44] LABS: Urine Bilirubin Dipstick 1 mg/dL (Negative)
--- NOTE | 2022-04-24 19:46 | RAD_ITS ---
STUDY: X-RAY CHEST REASON FOR EXAM: Male, 77 years old. Weakness cough, dyspnea TECHNIQUE: XR Chest 1 View COMPARISON: 12/31/2021 FINDINGS: Prominent lung markings Normal size heart. Normal mediastinum and saulo. Normal visualized pulmonary arteries. There is atherosclerotic calcification of the aortic arch with tortuosity. There are diffuse degenerative changes of the visualized thoracic spine. There is degenerative osteoarthritis of the bilateral shoulders. There is no demonstrated abnormality of the visualized soft tissue structures of the upper abdomen. RAD/Chest 1 View (Portable) IMPRESSION: There are no acute findings. Electronically Signed: Yefri Keen MD at 20:11 EDT ,
[2022-04-24 19:51] LABS: BNP,B-Type NATRIURETIC PEPTIDE 106.1 pg/mL (0-100)
[2022-04-24 19:53] LABS: Bacteria 2+ /hpf (None Seen); Red Blood Cells-Urine 5-10 SEEN /hpf (0-5); Squamous Epithelial Cells - UA 0-5 SEEN /hpf (0-5); White Blood Cells 10-25 SEEN /hpf (0-5)
[2022-04-24 19:55] LABS: Coarse Granular Cast 5-10 SEEN /lpf (0-5 /lpf)
[2022-04-24 20:00] LABS: Lactic Acid 1.4 mmol/L (0.4-1.9)
[2022-04-24] MEDS: Doxycycline 100 MG CAPSULE PO (21:48)
[2022-04-24] MEDS: dexAMETHasone 10 MG/ML Vial 6 MG IV (21:48)
== END 2022-04-24 22:00 | disposition home or self-care (01) ==
PROVIDERS: Emergency Provider Emergency Medicine; PCP Physician Assistant; Visit Provider Emergency Medicine
DX: U07.1 COVID-19 (principal); J44.1 Chronic obstructive pulmonary disease with (acute) exacerbation; I13.0 Hypertensive heart and chronic kidney disease with heart failure and stage 1 through stage 4 chronic kidney disease, or unspecified chronic kidney disease; I50.32 Chronic diastolic (congestive) heart failure; E11.22 Type 2 diabetes mellitus with diabetic chronic kidney disease; I48.0 Paroxysmal atrial fibrillation; Z68.42 Body mass index [BMI] 45.0-49.9, adult; Z87.891 Personal history of nicotine dependence; E78.00 Pure hypercholesterolemia, unspecified; N18.9 Chronic kidney disease, unspecified; F41.9 Anxiety disorder, unspecified; Z79.84 Long term (current) use of oral hypoglycemic drugs; Z79.01 Long term (current) use of 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s; Z79.899 Other long term (current) drug therapy; E66.9 Obesity, unspecified; R09.02 Hypoxemia; R79.1 Abnormal coagulation profile
CPT/HCPCS: 71045; 80053; 81001; 83605; 83880; 84484; 85025; 85610; 85730; 87040; 87086; 87088; 87428; 93005; 94640; 96374; 99285; A4216

== ENCOUNTER 2022-05-02 21:11 | Inpatient (IN) | payer MEDICARE, SELFPAY ==
[2022-05-02 21:12] VITALS: BP 126/41; PULSE 56; RESP 20; TEMP 36.1; O2SAT 95; BMI 42.2
[2022-05-02 21:16] VITALS: BP 126/41; PULSE 57; RESP 20; TEMP 36.1; O2SAT 97
[2022-05-02 21:37] VITALS: O2SAT 88; O2SAT 96
--- NOTE | 2022-05-02 21:40 | RAD_ITS ---
INDICATION: sob EXAMINATION/TECHNIQUE: X-RAY - XR Chest 1 View COMPARISON: April 24, 2022. FINDINGS: LINES/DEVICES: None. LUNGS: Right lateral upper lung pulmonary clips. Relative upper lung hyperlucency. Bilateral diffuse chronic interstitial coarsening. Linear atelectasis or scarring in the lung bases with some hazy patchy left basilar airspace opacification. No effusion. No pneumothorax. MEDIASTINUM AND CARDIOVASCULAR STRUCTURES: Cardiac silhouette not enlarged. BONES AND SOFT TISSUES: Unremarkable. RAD/Chest 1 View (Portable) IMPRESSION: Diffuse interstitial coarsening as can be seen with chronic obstructive pulmonary disease. Nonspecific hazy opacification in the lateral left lower lung which could represent superimposed airspace disease in the appropriate clinical setting. Correlate with clinical pneumonia. Electronically Signed: Dagoberto Bartholomew MD at 22:41 EDT ,
--- NOTE | 2022-05-02 21:41 | EKG12_ITS ---
Test Reason : SOB Blood Pressure : / mmHG Vent. Rate : 055 BPM Atrial Rate : 000 BPM P-R Int : 000 ms QRS Dur : 088 ms QT Int : 434 ms P-R-T Axes : 000 -30 016 degrees QTc Int : 415 ms Atrial fibrillation with slow ventricular response Left axis deviation Abnormal ECG Confirmed by NU VILLEDA, KIMBERLEE ([id number]), electronic news gathering editor NEDA JIN ([id number]) on 05/03/2022 1:21:28 PM Referred By: Confirmed By:KIMBERLEE JUDGE MD
[2022-05-02 22:14] LABS: Hemoglobin 14.1 g/dL (13.0-16.5); Mean Corp Hgb Conc 33.6 g/dL (32-36); Mean Corpuscular Hgb 30.3 pg (27.0-32.0); Mean Corpuscular Volume 90.3 fL (80-94); Mean Platelet Vol. 11.6 fl (6.2-12.0); NRBC Flagged by Analyzer 0 % (0-5); Platelet Count 174 K/mm3 (150-450); RBC Distribution Width CV 13.8 % (11.6-14.6); RBC Distribution Width SD 45.8 fl (35.1-43.9); Red Blood Count 4.65 M/mm3 (4.6-6.2); White Blood Count 7.2 K/mm3 (4.4-11.0)
[2022-05-02] MEDS: 0.9% Normal Saline 1,000 ML 1000 ML IV (22:22)
--- NOTE | 2022-05-02 22:22 | EX.ED.DYSGE1 ---
HPI History of Present Illness Chief Complaint: General Illness Narrative Narrative: Patient presents from home, he has been diagnosed with COVID for a little over a week, he has been more short of breath more weak and he thinks more dehydrated since he has decreased p.o. intake and he has had some diarrhea. He has no abdominal pain. He was in the midst of calling the squad he also noticed his had passed out while he was calling the squad for himself. He has sleep apnea he is on a CPAP at home which he thinks may have some oxygen but otherwise he is not on home O2, I asked him since when I walked into the room his pulse ox was 88%. [facility] Medical History Anxiety Atrial fibrillation 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, adult Chronic diastolic heart failure CKD (chronic kidney disease) Congestive heart failure (CHF) COPD (chronic obstructive pulmonary disease) CPAP (continuous positive airway pressure) dependence Diabetes Essential hypertension Former smoker group home current use of 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 SILVER (obstructive sleep apnea) Paroxysmal atrial fibrillation Paroxysmal atrial flutter Pure hypercholesterolemia Sleep apnea SOB (shortness of breath) Tachycardia Type 2 diabetes mellitus Ulcerative colitis Home Medications potassium chloride 20 mEq tablet,extended release(part/cryst) 20 meq PO DAILY Low potassium 09/27/15 [History Last Taken 01/11/22] atorvastatin 40 mg tablet 40 mg PO QHS Cholesterol 08/20/16 [History Last Taken 01/10/22] metformin 500 mg tablet 500 mg PO BID Diabetes 05/09/19 [History Last Taken 01/11/22] furosemide 20 mg tablet 20 - 40 mg PO DAILY PRN Edema 04/01/20 [History Last Taken 01/11/22] metoprolol tartrate 100 mg tablet 50 mg PO BID Afib 02/17/21 [History Last Taken 01/11/22] warfarin 2.5 mg tablet 2.5 mg PO DAILY #90 tabs 05/26/21 [Rx Last Taken 01/10/22] prazosin 2 mg capsule 2 mg PO BID #180 caps 11/15/21 [Rx Last Taken 01/11/22] flecainide 50 mg tablet 50 mg PO Q12H #180 tabs 11/16/21 [Rx Last Taken 01/11/22] fexofenadine 180 mg tablet 180 mg PO DAILY PRN PRN Allergic Symptoms 01/11/22 [History Last Taken Unknown] tiotropium 2.5 mcg-olodaterol 2.5 mcg/actuation mist for inhalation (Stiolto Respimat) 2 puff inhalation DAILY #4 grams 01/11/22 [Rx Last Taken 01/11/22] mesalamine 800 mg tablet,delayed release 800 mg PO BID colitis 01/12/22 [History Last Taken 01/11/22] doxycycline hyclate 100 mg capsule 100 mg PO BID #20 caps 04/24/22 [Rx Last Taken Unknown] molnupiravir 200 mg capsule (EUA) 800 mg PO Q12H 5 days #40 caps 04/24/22 [Rx Last Taken Unknown] Allergy/AdvReac Type Severity Reaction Status Date / Time amlodipine Allergy Severe Rash Verified 05/02/22 21:19 Penicillins Allergy Hives Verified 05/02/22 21:19 azithromycin AdvReac Diarrhea Verified 05/02/22 21:19 celecoxib [From Celebrex] AdvReac RECTAL Verified 05/02/22 21:19 BLEEDING Family History Mother Colon cancer Heart disease Father CAD (coronary artery disease) Sister Diabetes Brother Heart disease Diabetes Surgical History History of bilateral hip replacements History of knee surgery History of radiofrequency ablation procedure for cardiac arrhythmia (~08/11/15) Social History Smoking Status: Former smoker alcohol intake: current details: rare substance use type: does not use caffeine: Yes Type: coffee Number of servings: 3 ROS ROS ED ROS Narrative Past medical history: Reviewed, includes COPD, hyperlipidemia, history of smoking, history of lung cancer, ulcerative colitis, A. fib, CHF, a flutter, diabetes, CKD, obstructive sleep apnea Medications: Reviewed Social history: Noncontributory Review of systems: All systems negative except as indicated General: No fever. Generalized weakness as in HPI Eyes: No visual changes ENT: Some upper airway congestion Neck: No neck pain Cardiovascular: No chest pain Respiratory: Dyspnea. Gastrointestinal: No abdominal pain, he has some nausea and her hip. Genitourinary: No dysuria Musculoskeletal: Generalized myalgias Skin: No rash Neurological: No memory loss, confusion or any focal weakness Psych: No recent behavioral changes Hematologic: No easy bleeding or easy bruising EXAM Physical Exam Narrative Exam Narrative: Physical exam General: Patient appears in some distress Head: Normocephalic, Atraumatic Eyes: Conjunctiva not pale ENT: Dry mucous membranes Neck: Supple, Nontender, No lymphadenopathy Cardiovascular: Regular rate, Regular rhythm, I cannot appreciate any murmurs Respiratory: No distress, coarse bilateral breath sounds but he is speaking in full sentences Abdomen: Soft, Nontender, Nondistended Back: Nontender, Normal Inspection. Negative for: CVA tenderness Extremities: Nontender, No edema Skin: Normal color, No rash Neurological: Alert, Normal Strength, Normal Sensation Psychological: Normal affect Const Vital Signs: 05/02/22 21:12 05/02/22 21:16 05/02/22 21:16 Temperature 96.9 F L 96.9 F L Temperature Source Temporal Temporal Pulse Rate 56 L 57 L Respiratory Rate 20 H 20 H Respiratory Effort Short of Breath Respiratory Pattern Tachypnea Blood Pressure 126/41 H 126/41 H Blood Pressure Mean 69 69 Pulse Ox 95 97 Oxygen Delivery Method Room Air Room Air Oxygen Flow Rate (L/min) 05/02/22 21:37 05/02/22 21:37 Temperature Temperature Source Pulse Rate Respiratory Rate Respiratory Effort Respiratory Pattern Blood Pressure Blood Pressure Mean Pulse Ox 88 96 Oxygen Delivery Method Room Air Nasal Cannula Oxygen Flow Rate (L/min) 2 MDM MDM MDM Narrative Medical decision making narrative: Patient was placed on oxygen. He is hypoxic in the ED, however his pulse ox is in the high 90s now that he is on room air. He feels weak he is dehydrated I will admit him to the hospital. X-ray appeared normal for me, however the radiologist thought there may be an opacity which could be early pneumonia, he has hypoxic therefore it is reasonable to start IV antibiotics. Lab Data Labs: Laboratory Results - last 24 hr 05/02/22 05/02/22 05/02/22 21:45 21:45 21:45 WBC 7.2 RBC 4.65 Hgb 14.1 Hct 42.0 MCV 90.3 MCH 30.3 MCHC 33.6 RDW Std Deviation 45.8 H RDW Coeff of Jadon 13.8 Plt Count 174 MPV 11.6 Nucleated RBC % 0 Sodium 137 Potassium 4.4 Chloride 104 Carbon Dioxide 22.0 Anion Gap 11 BUN 36 H Creatinine 1.89 H Estim Creat Clear Calc 34.33 Est GFR (MDRD) Af Amer 45 L Est GFR (MDRD) Non-Af 37 L BUN/Creatinine Ratio 19.0 Glucose 165 H Calcium 8.3 L Total Bilirubin 1.10 H AST 48 H ALT 39 Alkaline Phosphatase 53 B-Natriuretic Peptide 207.5 H Total Protein 6.6 Albumin 2.5 L Globulin 4.1 Albumin/Globulin Ratio 0.6 L Radiography Diagnostic Testing: Clinical Impression(s) from Imaging Studies Chest X-Ray 05/02/22 21:40 IMPRESSION: Diffuse interstitial coarsening as can be seen with chronic obstructive pulmonary disease. Nonspecific hazy opacification in the lateral left lower lung which could represent superimposed airspace disease in the appropriate clinical setting. Correlate with clinical pneumonia. Electronically Signed: Dagoberto Bartholomew MD at 22:41 EDT Reading Location ID and State: [facility] / [place] Tel , Service support , Chest x-ray read by me shows chronic changes I do not see an obvious infiltrate. EKG Initial EKG: Comments: Atrial fibrillation with slow rate of 55. Normal QTc interval. Nonspecific ST changes throughout. Otherwise normal EKG Interpreted by emergency Dr. Discharge Plan Dx/Rx/DC Orders Clinical Impression: COVID-19, COPD (chronic obstructive pulmonary disease), Hypoxia, Dehydration Disposition Disposition: Acute Care [facility]
[2022-05-02 22:30] LABS: ALB/GLOB Ratio 0.6 RATIO (0.9-2.4); AST(SGOT) 48 U/L (15-37); Alanine Aminotransfer ALT/SGPT 39 U/L (16-61); Albumin, Serum 2.5 g/dL (3.2-5.0); Alkaline Phosphatase 53 U/L (45-117); Anion Gap 11 (5-15); BUN 36 mg/dL (7-18); Calcium,Total 8.3 mg/dL (8.5-10.1); Chloride 104 mmol/L (98-107); Creatinine, Serum 1.89 mg/dL (0.70-1.30); EST Glomerular Filtration Rate 37 mL/min (>60); Est Glom Filt Rate - Afr Amer 45 mL/min (>60); Estimated Creatinine Clearance 34.33 ml/min; Globulin 4.1 g/dL (2.2-4.2); Glucose 165 mg/dL (74-106); Potassium 4.4 mmol/L (3.5-5.1); Protein, Total 6.6 g/dL (6.4-8.2); Sodium Level 137 mmol/L (136-145)
[2022-05-02 22:41] LABS: BNP,B-Type NATRIURETIC PEPTIDE 207.5 pg/mL (0-100)
[2022-05-02 22:45] VITALS: BP 111/55; PULSE 56; RESP 19; TEMP 36.8; O2SAT 92
[2022-05-02] MEDS: Ipratropium/Albuterol Sulfate 3 ML AMPUL.NEB INHALATION (23:10)
[2022-05-02 23:11] VITALS: PULSE 57; RESP 18
--- NOTE | 2022-05-02 23:13 | HP.PCM.HOS_ITS ---
HPI - General General Date of Admission: 05/02/22 Date of Service: 05/02/22 Chief Complaint: weakness HPI Narrative AVELINA BULL, is a 77 M with a significant history of tremors; COPD; sleep apnea on home CPAP with oxygen bled in; and atrial fibrillation on flecainide and warfarin who presents to the emergency department with 2-week history of progressively worsening weakness. Associated with his symptom is diarrhea. Of note patient has a productive cough of thick yellow sputum. He reports wheezes. Patient tested for COVID-19 on April 24, 2022 at our ED ([facility]). While at emergency department patient oxygen saturation on room air was 88% and required supplemental oxygen. While at emergency department patient oxygen saturation on room air was 88%; and patient required supplemental oxygen. Of note patient presented to the hospital with his . As patient was calling paramedics to come to the emergency department patient's who had also tested positive for covid also reportedly passed out. Reportedly patient has dementia and she will be unable to care for self at home if alone at home. So as patient is at the hospital patient will also be admitted and placed on observation status. [facility], [facility] Medical History Anxiety Atrial fibrillation 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, adult Chronic diastolic heart failure CKD (chronic kidney disease) Congestive heart failure (CHF) COPD (chronic obstructive pulmonary disease) CPAP (continuous positive airway pressure) dependence Diabetes Essential hypertension Former smoker alf current use of 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 SILVER (obstructive sleep apnea) Paroxysmal atrial fibrillation Paroxysmal atrial flutter Pure hypercholesterolemia Sleep apnea SOB (shortness of breath) Tachycardia Type 2 diabetes mellitus Ulcerative colitis Home Medications potassium chloride 20 mEq tablet,extended release(part/cryst) 20 meq PO DAILY Low potassium 09/27/15 [History Last Taken 01/11/22] atorvastatin 40 mg tablet 40 mg PO QHS Cholesterol 08/20/16 [History Last Taken 01/10/22] metformin 500 mg tablet 500 mg PO BID Diabetes 05/09/19 [History Last Taken 01/11/22] furosemide 20 mg tablet 20 - 40 mg PO DAILY PRN Edema 04/01/20 [History Last Taken 01/11/22] metoprolol tartrate 100 mg tablet 50 mg PO BID Afib 02/17/21 [History Last Taken 01/11/22] warfarin 2.5 mg tablet 2.5 mg PO DAILY #90 tabs 05/26/21 [Rx Last Taken 01/10/22] prazosin 2 mg capsule 2 mg PO BID #180 caps 11/15/21 [Rx Last Taken 01/11/22] flecainide 50 mg tablet 50 mg PO Q12H #180 tabs 11/16/21 [Rx Last Taken 01/11/22] fexofenadine 180 mg tablet 180 mg PO DAILY PRN PRN Allergic Symptoms 01/11/22 [History Last Taken Unknown] tiotropium 2.5 mcg-olodaterol 2.5 mcg/actuation mist for inhalation (Stiolto Respimat) 2 puff inhalation DAILY #4 grams 01/11/22 [Rx Last Taken 01/11/22] mesalamine 800 mg tablet,delayed release 800 mg PO BID colitis 01/12/22 [History Last Taken 01/11/22] doxycycline hyclate 100 mg capsule 100 mg PO BID #20 caps 04/24/22 [Rx Last Taken Unknown] molnupiravir 200 mg capsule (EUA) 800 mg PO Q12H 5 days #40 caps 04/24/22 [Rx Last Taken Unknown] Allergy/AdvReac Type Severity Reaction Status Date / Time amlodipine Allergy Severe Rash Verified 05/03/22 00:29 Penicillins Allergy Hives Verified 05/03/22 00:29 azithromycin AdvReac Diarrhea Verified 05/03/22 00:29 celecoxib [From Celebrex] AdvReac RECTAL Verified 05/03/22 00:29 BLEEDING Family History Mother Colon cancer Heart disease Father CAD (coronary artery disease) Sister Diabetes Brother Heart disease Diabetes Surgical History History of bilateral hip replacements History of knee surgery History of radiofrequency ablation procedure for cardiac arrhythmia (~08/11/15) Social History Smoking Status: Former smoker alcohol intake: current details: rare substance use type: does not use caffeine: Yes Type: coffee Number of servings: 3 ROS ROS Narrative Pertinent positives and pertinent negatives as noted in HPI. All other systems were reviewed and are negative Vital Signs Vital Signs Vital Signs: 05/02/22 21:12 05/02/22 21:16 05/02/22 21:16 Temperature 96.9 F L 96.9 F L Temperature Source Temporal Temporal Pulse Rate 56 L 57 L Respiratory Rate 20 H 20 H Respiratory Effort Short of Breath Respiratory Pattern Tachypnea Blood Pressure 126/41 H 126/41 H Blood Pressure Mean 69 69 Pulse Ox 95 97 Oxygen Delivery Method Room Air Room Air Oxygen Flow Rate (L/min) 05/02/22 21:37 05/02/22 21:37 05/02/22 23:11 Temperature Temperature Source Pulse Rate 57 L Respiratory Rate 18 Respiratory Effort Respiratory Pattern Blood Pressure Blood Pressure Mean Pulse Ox 88 96 Oxygen Delivery Method Room Air Nasal Cannula Oxygen Flow Rate (L/min) 2 Weight Weight: 133.5 kg Body Mass Index (BMI) 42.2 Physical Exam Narrative Physical exam: General: Well-nourished, well-developed. Head: Normocephalic, atraumatic, no tenderness Eyes: Vision is grossly intact. EOMI ENT, no trauma, moist mucous membranes, no rhinorrhea Neck: Nontender, full range of motion, no spinal tenderness. CVS: Bradycardia; irregularly irregular rate and rhythm. S1-S2 present. No murmur, gallop or rub. Respiratory : clear to auscultation bilaterally, chest wall nontender, no wheezing Abdomen: Soft, nontender, nondistended, normal bowel sounds, no masses : Deferred Back: Nontender, no CVA tenderness. Extremities: Bilateral feet edema 2+. Nontender full range of motion, no trauma Skin: Normal color, no trauma, abrasions Neuro: Alert, oriented, cranial nerves II through XII grossly intact. Tremulousness Psychiatry: Normal mood. Normal affect. Not depressed. Anxious. Results Lab / Micro Data Result Diagrams: 05/02/22 21:45 05/02/22 21:45 Labs: Laboratory Results - last 24 hr 05/02/22 21:45: WBC 7.2, RBC 4.65, Hgb 14.1, Hct 42.0, MCV 90.3, MCH 30.3, MCHC 33.6, RDW Std Deviation 45.8 H, RDW Coeff of Jadon 13.8, Plt Count 174, MPV 11.6, Nucleated RBC % 0 05/02/22 21:45: Sodium 137, Potassium 4.4, Chloride 104, Carbon Dioxide 22.0, Anion Gap 11, BUN 36 H, Creatinine 1.89 H, Estim Creat Clear Calc 34.33, Est GFR (MDRD) Af Amer 45 L, Est GFR (MDRD) Non-Af 37 L, BUN/Creatinine Ratio 19.0, Glucose 165 H, Calcium 8.3 L, Total Bilirubin 1.10 H, AST 48 H, ALT 39, Alkaline Phosphatase 53, Total Protein 6.6, Albumin 2.5 L, Globulin 4.1, Albumin/Globulin Ratio 0.6 L 05/02/22 21:45: B-Natriuretic Peptide 207.5 H Radiology Impression Chest X-Ray 05/02/22 21:40 IMPRESSION: Diffuse interstitial coarsening as can be seen with chronic obstructive pulmonary disease. Nonspecific hazy opacification in the lateral left lower lung which could represent superimposed airspace disease in the appropriate clinical setting. Correlate with clinical pneumonia. Electronically Signed: Dagoberto Bartholomew MD at 22:41 EDT , Assessment & Plan Assessment/Plan (1) COVID-19: (2) Pneumonia: (3) Paroxysmal atrial fibrillation: (4) Type 2 diabetes mellitus: (5) Essential hypertension: (6) 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, adult: PLAN: Plan COVID-19 pneumonia with hypoxia COVID PCR on 05/02/2022 detected. Rapid antigen on 04/24/2022 positive Chest x-ray was visualized and independently interpreted. Chest x-ray with diffuse interstitial coarsening. I agree with radiologist interpretation. Also per radiology there is nonspecific hazy opacification in the lateral left lower lung which could represent superimposed airspace disease. Started on Decadron the emergency department and continued. As needed Imodium for diarrhea. Mucinex ordered. As needed oxygen ordered. Pneumonia Gram-positive or gram-negative Chest x-ray as above. Azithromycin and ceftriaxone ordered emergency department. Review of allergy list shows that patient has diarrhea with azithromycin. In the setting of diarrhea will hold off further azithromycin. Levaquin and ceftriaxone ordered. Levaquin dosed per creatinine clearance. Strep pneumoniae and Legionella urine antigen ordered. 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 Received normal saline bolus at emergency department. Gentle IV hydration ordered. Trend BMP. Avoid nephrotoxins Paroxysmal A. fib Patient with A. fib and bradycardia on presentation. Monitor on telemetry. Flecainide and metoprolol continued. INR is subtherapeutic on presentation. Warfarin regimen adjusted.. Trend INR. Chronic heart failure with preserved ejection fraction Echocardiogram on 11/01/2021 showed estimated ejection fraction 55% with no evidence of diastolic dysfunction. Hold of Lasix in the setting of CHRISTOPHER. Stable Diabetes mellitus Blood glucose is stable. Home metformin held. Accu-Chek with correction scale insulin ordered. Cardiac and diabetic diet ordered. DVT prophylaxis: Coumadin as above Charges/Coding Visit Charges Inpatient E&M: 60935 Init Hosp L3
[2022-05-02] MEDS: Ceftriaxone 1 GM/50 ML BAG IV (23:38)
[2022-05-03] VITALS (18 sets, daily range): BP systolic 102–146; BP diastolic 47–87; PULSE 44–88; RESP 18–22; TEMP 36–36.7; O2SAT 95–98; BMI 43.2
[2022-05-03] MEDS: dexAMETHasone 10 MG/ML Vial 6 MG IV (00:10)
[2022-05-03 00:13] LABS: International Normalized Ratio 2.7; Prothrombin Time (Protime)PT. 28.7 SECONDS (11.7-14.9)
[2022-05-03] MEDS: 0.9% Normal Saline 1,000 ML 75 ML IV (00:58)
[2022-05-03 06:23] LABS: Absolute Lymphocyte Count 0.77 X10^3/uL (0.83-4.51); Absolute Neutrophil Count 6.1 X10^3/uL (2.0-7.7); Basophil# 0.02 X10^3/uL; Basophil% 0.3 % (0-1); Hemoglobin 13.3 g/dL (13.0-16.5); Lymphocyte # 0.77 X10^3/ul (0.83-4.51); Lymphocyte % 10.5 % (19-41); Mean Corp Hgb Conc 32.4 g/dL (32-36); Mean Corpuscular Hgb 28.9 pg (27.0-32.0); Mean Corpuscular Volume 89.1 fL (80-94); Mean Platelet Vol. 10.8 fl (6.2-12.0); Monocyte# 0.31 X10^3/uL; Monocyte% 4.2 % (0-10); NRBC Flagged by Analyzer 0 % (0-5); Neutrophil % 83.2 % (47-70); Platelet Count 157 K/mm3 (150-450); RBC Distribution Width CV 13.6 % (11.6-14.6); RBC Distribution Width SD 44.5 fl (35.1-43.9); White Blood Count 7.3 K/mm3 (4.4-11.0)
[2022-05-03] MEDS: Insulin Lispro 100 UNIT/ML INSULN.PEN SC ×4 (06:34→22:09)
[2022-05-03 06:36] LABS: International Normalized Ratio 2.7; Prothrombin Time (Protime)PT. 28.5 SECONDS (11.7-14.9)
[2022-05-03 06:45] LABS: Anion Gap 11 (5-15); BUN 34 mg/dL (7-18); BUN/Creat Ratio 19.9 RATIO (10-20); Calcium,Total 8.2 mg/dL (8.5-10.1); Chloride 102 mmol/L (98-107); Creatinine, Serum 1.71 mg/dL (0.70-1.30); EST Glomerular Filtration Rate 42 mL/min (>60); Est Glom Filt Rate - Afr Amer 50 mL/min (>60); Estimated Creatinine Clearance 36.75 ml/min; Glucose 315 mg/dL (74-106); Potassium 4.4 mmol/L (3.5-5.1); Sodium Level 134 mmol/L (136-145)
[2022-05-03 07:05] LABS: Bedside Glucose 289 mg/dL (74-106)
[2022-05-03] MEDS: Ipratropium/Albuterol Sulfate 3 ML AMPUL.NEB INHALATION ×3 (07:23→19:22)
[2022-05-03] MEDS: Insulin Glargine-YFGN 100 UNIT/ML Pen 10 UNIT SC (10:52)
[2022-05-03] MEDS: Flecainide 100 MG Tablet 50 MG PO ×2 (10:52→22:08)
[2022-05-03] MEDS: guaiFENesin 600 MG Tablet PO ×2 (10:52→22:09)
[2022-05-03] MEDS: Metoprolol Tartrate 50 MG Tablet PO (10:53)
[2022-05-03] MEDS: MESALAMINE 400 MG CAPSULE.DR 800 MG PO ×2 (10:53→22:08)
[2022-05-03] MEDS: dexAMETHasone 4 MG Tablet 6 MG PO (10:53)
[2022-05-03] MEDS: Doxazosin 1 MG Tablet 1.5 MG PO ×2 (10:53→22:08)
[2022-05-03] MEDS: levoFLOXacin IV 500 MG/100 ML BAG 100 MG IV (10:59)
--- NOTE | 2022-05-03 11:05 | CASEMGMT ---
RN ENZO called patient in room for initial transition planning/care coordination assessment. RN ENZO introduced self and role at [facility]. Patient is alert and oriented. Patient willing to participate in assessment and is able to answer all questions appropriately. Care providers, pharmacy, and demographics verified. Patient wishes to discharge home, denies need for home health at this time. Patient states he has no further needs or concerns at this time. CM to follow for discharge planning needs that may arise. PCP: Kyle IVERSON Specialists: Kalina, integrated marketing manager; Parminder hat brusher machine Preferred Pharmacy: [facility] Insurance: [employer] Prescription Benefit: yes Living Will/HPOA: yes, Em Oshea, HPOA LNOK: , brother Living Arrangements: Patient lives with in a single story home with 1 step to enter. Patient states he is independent at home. Patient states has been more forgetful lately forgetting where she has placed items or taking her meds. Transportation: self, DME/HHC: Patient has raised toilet, cane, walker, grab bars, cpap, pulse ox, and home oxygen through [employer] with portability. Per patient home oxygen is for 2lpm. Patient was setup for home oxygen via last admission in January for 2lpm with exertion. Disposition Plan: Patient to discharge home with family support and follow-up plans in place. Ashlee POLK, RN, CM
[2022-05-03 11:25] LABS: Bedside Glucose 368 mg/dL (74-106)
--- NOTE | 2022-05-03 11:30 | PCM.PN.HOSP ---
Documented by User: Mariajose Cancino NP, ASSISTANT [employer] MANAGER-C 05/03/22 11:54 Subjective Subjective Patient seen and examined. Reports improvement in breathing. Denies ongoing diarrhea. Oxygen now stable on room air. Denies fever, chills. Reports generalized fatigue. Objective Data Objective Data Vital Signs: Vital Signs Temp Pulse Resp BP Pulse Ox O2 Del Method O2 Flow Rate 97.0 F L 60 18 133/59 H 96 Room Air 3 05/03/22 10:45 05/03/22 10:53 05/03/22 10:45 05/03/22 10:53 05/03/22 10:45 05/03/22 10:45 05/03/22 06:30 Oxygen Flow Rate (L/min) 3 Oxygen Delivery Method Room Air Weight: 292 lb 8.854 oz Body Mass Index (BMI) 43.2 Intake & Output: Intake and Output for Last 24 Hours 05/01/22 05/02/22 05/03/22 23:59 23:59 23:59 Intake Total 1985.0 / 1985.0 Output Total 375 / 375 Balance 1610.0 / 1610.0 Lab / Micro Data Result Diagrams: 05/03/22 05:45 05/03/22 05:45 Labs: Laboratory Results - last 24 hr 05/02/22 21:45: WBC 7.2, RBC 4.65, Hgb 14.1, Hct 42.0, MCV 90.3, MCH 30.3, MCHC 33.6, RDW Std Deviation 45.8 H, RDW Coeff of Jadon 13.8, Plt Count 174, MPV 11.6, Neut % (Auto) Not Reportable, Absolute Neuts (auto) Not Reportable, Nucleated RBC % 0 05/02/22 21:45: Sodium 137, Potassium 4.4, Chloride 104, Carbon Dioxide 22.0, Anion Gap 11, BUN 36 H, Creatinine 1.89 H, Estim Creat Clear Calc 34.33, Est GFR (MDRD) Af Amer 45 L, Est GFR (MDRD) Non-Af 37 L, BUN/Creatinine Ratio 19.0, Glucose 165 H, Calcium 8.3 L, Total Bilirubin 1.10 H, AST 48 H, ALT 39, Alkaline Phosphatase 53, Total Protein 6.6, Albumin 2.5 L, Globulin 4.1, Albumin/Globulin Ratio 0.6 L 05/02/22 21:45: B-Natriuretic Peptide 207.5 H 05/02/22 23:15: COVID-19 (MICHELLE) Detected 05/02/22 23:55: PT 28.7 H, INR 2.7 05/03/22 05:45: WBC 7.3, RBC 4.60, Hgb 13.3, Hct 41.0, MCV 89.1, MCH 28.9, MCHC 32.4, RDW Std Deviation 44.5 H, RDW Coeff of Jadon 13.6, Plt Count 157, MPV 10.8, Immature Gran % (Auto) 1.800 H, Neut % (Auto) 83.2 H, Lymph % (Auto) 10.5 L, [place] % (Auto) 4.2, Eos % (Auto) 0.0, Baso % (Auto) 0.3, Absolute Neuts (auto) 6.1, Absolute Lymphs (auto) 0.77 L, Nucleated RBC % 0 05/03/22 05:45: PT 28.5 H, INR 2.7 05/03/22 05:45: Sodium 134 L, Potassium 4.4, Chloride 102, Carbon Dioxide 21.0, Anion Gap 11, BUN 34 H, Creatinine 1.71 H, Estim Creat Clear Calc 36.75, Est GFR (MDRD) Af Amer 50 L, Est GFR (MDRD) Non-Af 42 L, BUN/Creatinine Ratio 19.9, Glucose 315 H, Calcium 8.2 L 05/03/22 06:28: POC Glucose 289 H 05/03/22 10:50: POC Glucose 368 H Micro: Microbiology 05/03/22 06:45 Urine, Clean Catch Legionella Antigen - Final 05/03/22 06:45 Urine, Clean Catch Streptococcus pneumoniae Antigen (M - Final Radiography Diagnostic Testing: Radiology Impression Chest X-Ray 05/02/22 21:40 IMPRESSION: Diffuse interstitial coarsening as can be seen with chronic obstructive pulmonary disease. Nonspecific hazy opacification in the lateral left lower lung which could represent superimposed airspace disease in the appropriate clinical setting. Correlate with clinical pneumonia. Electronically Signed: Dagoberto Bartholomew MD at 22:41 EDT Reading Location ID and State: [facility] [place] Tel , Service support , Physical Exam Const alert and oriented x3 Nutritional Appearance: obese HEENT normocephalic and moist oral mucous membranes Eyes PERRL, EOMs intact bilaterally and conjunctivae normal Neck no lymphadenopathy Resp clear to auscultation bilaterally Auscultation: diminished lung sounds Cardio no murmurs Cardio Narrative: A. fib, rate controlled Peripheral Pulses: pulses 2+ throughout GI normal to inspection, nondistended, normoactive bowel sounds, non-tender and non-distended Extremity normal to inspection Skin no rashes or lesions noted Lesions: no lesions Rashes: no rashes Trauma: no lacerations or abrasions Neuro CN's II-XII intact bilaterally, no focal motor deficits, no sensory deficits noted and deep tendon reflexes 2+ bilaterally Psych mental status grossly normal and affect normal Assessment & Plan Assessment/Plan (1) COVID-19: (2) Pneumonia: PLAN: Plan 1. Acute hypoxia secondary to COVID-19 pneumonia with superimposed probable gram-negative left lower lobe pneumonia-failed outpatient treatment with antibiotics/steroids. Documented to be 88% on room air in the emergency room. Initially requiring 2 to 3 L nasal cannula. Oxygen now stable on room air. On IV Levaquin and IV Rocephin. Oral Decadron. Albuterol and DuoNeb aerosols. Will need walking pulse ox prior to discharge. 2. Acute kidney injury on chronic kidney disease stage IIIa-IV fluids, trend BMP. 3. Type 2 diabetes [id number] with sliding scale insulin. Continue oral regimen. Glucose elevated, likely related to steroids. Initiated on 10 units glargine and increase to high-dose sliding scale. 4. Chronic heart failure with preserved ejection fraction-echo October 2021 demonstrated an EF of 55%. Lasix on hold. 5. Paroxysmal atrial fibrillation-on flecainide, metoprolol, Coumadin. 6. Hypertension-stable, continue current regimen. 7. Hyperlipidemia-continue statin. 8. SILVER with nocturnal oxygen use-continue home CPAP/O2 regimen. 9. Chronic COPD-as needed albuterol aerosol. 10. Lung cancer-following with Dr. Gillespie. 11. Morbid obesity-diet and lifestyle modifications encouraged. DVT prophylaxis- Coumadin This patient was seen by ANTONIO Daily under the supervision of Dr. Major. Documented by User: Dr. Sarah Major DO 05/03/22 12:31 Subjective Subjective This patient was seen in conjunction with Mariajose Cancino NP. The following represents my independent history and physical examination. Please see below for addendum the above. Patient states he is feeling much better overall. Denies any current shortness of breath and is currently on room air. Diarrhea has resolved. Reporting only generalized fatigue at this time. Objective Data Lab / Micro Data Result Diagrams: 05/03/22 05:45 05/03/22 05:45 Physical Exam Const alert, oriented x3, no apparent distress and well nourished Constitutional Narrative: Morbidly obese, older white male, sitting up in a chair, appears comfortable nontoxic, patient on room air HEENT head/scalp atraumatic and moist oral mucous membranes HEENT Narrative: Mallampati 3-4, no thrush Head and Scalp: normocephalic Resp normal respiratory effort, no retractions, no use of accessory muscles and clear to auscultation bilaterally Resp Narrative: Diffusely diminished but otherwise clear Auscultation: Negative for crackles, rales, rhonchi or wheezes Cardio regular rhythm, S1 normal heart sound, S2 normal heart sound, no murmurs, no rub, no gallops and no clicks Cardio Narrative: Irregular irregular rhythm with good rate control GI normal to inspection, nondistended, normoactive bowel sounds, soft to palpation and non-tender Palpation: hernia umbilical (Easily reducible) Extremity no clubbing, cyanosis or edema Extremity Narrative: Pedal pulses 2+ Neuro oriented x3, moves all extremities and no focal motor deficits Speech: speech normal Psych affect normal Psych Narrative: Very pleasant and appropriately interactive Assessment & Plan Assessment/Plan (1) COVID-19: (2) Pneumonia: PLAN: Plan Assessment: Acute hypoxia secondary to COVID-19 CHRISTOPHER on CKD stage IIIa Diarrhea DM-2 HFpEF-compensated PAF Hypertension Hyperlipidemia SILVER See the History of lung cancer Morbid obesity Ulcerative colitis BPH Plan: -Patient is now stable on room air with oxygen saturations at 96% -Start CPAP at 11 cm of water at at bedtime -Renal function is improving however still not at baseline -Continue IV fluids -Continue Decadron -Monitor blood sugars with additional steroids -Continue all home chronic medications -Anticipate discharge in the next 24 hours as long as patient's renal function improves and he remains clinically stable with regards to his oxygenation and function Charges/Coding Visit Charges Inpatient E&M: 77153 Subs Hosp L2
[2022-05-03 17:35] LABS: Bedside Glucose 272 mg/dL (74-106)
[2022-05-03] MEDS: Atorvastatin Calcium 40 MG Tablet PO (22:08)
[2022-05-03] MEDS: Metoprolol Tartrate 25 MG Tablet PO (22:09)
[2022-05-03] MEDS: 0.9% Saline Lock 10 ML Syringe IV (22:11)
[2022-05-03 23:45] LABS: Bedside Glucose 416 mg/dL (74-106)
[2022-05-04] VITALS (14 sets, daily range): BP systolic 107–137; BP diastolic 58–77; PULSE 47–70; RESP 12–20; TEMP 36.1–36.6; O2SAT 87–98
[2022-05-04 05:40] LABS: Absolute Lymphocyte Count 0.79 X10^3/uL (0.83-4.51); Basophil# 0.01 X10^3/uL; Basophil% 0.1 % (0-1); Hematocrit 38.8 % (40-54); Hemoglobin 13.1 g/dL (13.0-16.5); Lymphocyte # 0.79 X10^3/ul (0.83-4.51); Lymphocyte % 6.8 % (19-41); Mean Corp Hgb Conc 33.8 g/dL (32-36); Mean Corpuscular Hgb 29.7 pg (27.0-32.0); Mean Platelet Vol. 10.5 fl (6.2-12.0); Monocyte# 0.66 X10^3/uL; Monocyte% 5.7 % (0-10); NRBC Flagged by Analyzer 0 % (0-5); Neutrophil # 10.01 X10^3/uL (2.7-7.7); Neutrophil % 85.8 % (47-70); Platelet Count 186 K/mm3 (150-450); RBC Distribution Width CV 13.5 % (11.6-14.6); RBC Distribution Width SD 43.8 fl (35.1-43.9); Red Blood Count 4.41 M/mm3 (4.6-6.2); White Blood Count 11.7 K/mm3 (4.4-11.0)
[2022-05-04 06:08] LABS: Anion Gap 9 (5-15); BUN 30 mg/dL (7-18); BUN/Creat Ratio 24.4 RATIO (10-20); Calcium,Total 8.2 mg/dL (8.5-10.1); Chloride 108 mmol/L (98-107); Creatinine, Serum 1.23 mg/dL (0.70-1.30); EST Glomerular Filtration Rate 61 mL/min (>60); Est Glom Filt Rate - Afr Amer 74 mL/min (>60); Estimated Creatinine Clearance 51.09 ml/min; Glucose 259 mg/dL (74-106); Potassium 4.5 mmol/L (3.5-5.1); Sodium Level 136 mmol/L (136-145)
[2022-05-04] MEDS: Insulin Lispro 100 UNIT/ML INSULN.PEN SC ×2 (06:30→11:06)
[2022-05-04 07:10] LABS: Bedside Glucose 293 mg/dL (74-106)
[2022-05-04] MEDS: Ipratropium/Albuterol Sulfate 3 ML AMPUL.NEB INHALATION ×2 (07:32→13:36)
[2022-05-04] MEDS: Flecainide 100 MG Tablet 50 MG PO (08:12)
[2022-05-04] MEDS: Doxazosin 1 MG Tablet 1.5 MG PO (08:12)
[2022-05-04] MEDS: MESALAMINE 400 MG CAPSULE.DR 800 MG PO (08:13)
[2022-05-04] MEDS: dexAMETHasone 4 MG Tablet 6 MG PO (08:13)
[2022-05-04] MEDS: guaiFENesin 600 MG Tablet PO (08:13)
[2022-05-04] MEDS: Insulin Glargine-YFGN 100 UNIT/ML Pen 10 UNIT SC (08:14)
[2022-05-04 11:31] LABS: Bedside Glucose 333 mg/dL (74-106)
--- NOTE | 2022-05-04 11:41 | DCINST_ITS ---
Discharge Instructions Diet Discharge Diet: Low fat / Low cholesterol and Carb Control Diet Activity Discharge Activity: Return to Normal Activity Dressing / Incision Call your doctor if you observe: Fever of 101 or Higher, Shortness of breath, Dizziness and Chest pain Follow Up Care Test Results: Test results from this visit will be discussed in further detail at your follow- up appointment, if applicable. Discharge Plan Admission Admit Date/Time: 05/02/22 23:13 Primary Reason for Your Visit: Hypoxia, covid Attending Provider: Sarah Major Primary Care Provider: Fransisca Wright Consulting Providers: Brandon Michel Discharge Orders/Prescriptions Prescriptions: New dexamethasone 6 mg tablet 6 mg PO DAILY Qty: 8 0RF Continued metformin 500 mg tablet 500 mg PO BID furosemide 20 mg tablet 20 - 40 mg PO DAILY PRN (Reason: Edema) warfarin 2.5 mg tablet 2.5 mg PO DAILY Qty: 90 3RF Protocol: Dose Management Condition: Monday Dose/Route: 2.5 mg Instruction: 1 x 2.5 mg tablet Condition: Monday Dose/Route: 2.5 mg Instruction: 1 x 2.5 mg tablet Condition: Monday Dose/Route: 2.5 mg Instruction: 1 x 2.5 mg tablet Condition: Monday Dose/Route: 2.5 mg Instruction: 1 x 2.5 mg tablet Condition: Dose/Route: 2.5 mg Instruction: 1 x 2.5 mg tablet Condition: Monday Dose/Route: 5 mg Instruction: 2 x 2.5 mg tablets Condition: Monday Dose/Route: 2.5 mg Instruction: 1 x 2.5 mg tablet Protocol Text: Adjustment Start Date: Monday04/15/22 INR Value: 2.0 INR Date: 04/15/22 Recheck Date: 04/29/22 Stiolto Respimat 2.5-2.5 mcg/actuation mist 2 puff inhalation DAILY Qty: 4 6RF potassium chloride 20 MEQ tablet 20 meq PO DAILY Label Comments: supplement atorvastatin 40 MG tablet 40 mg PO QHS Label Comments: cholesterol metoprolol tartrate 100 mg tablet 50 mg PO BID fexofenadine 180 mg tablet 180 mg PO DAILY PRN PRN (Reason: Allergic Symptoms) mesalamine 800 mg tablet,delayed release (DR/EC) 800 mg PO BID prazosin 2 mg capsule 2 mg PO BID Qty: 180 3RF flecainide 50 mg tablet 50 mg PO Q12H Qty: 180 3RF No Action doxycycline hyclate 100 mg capsule 100 mg PO BID molnupiravir 200 mg capsule 800 mg PO Q12H Referrals / Follow Up: Fransisca Wright PA [Primary Care Provider] - 05/11/22 1:00 pm (Your appt will be with Latrice Vu) Disposition Disposition (needs filled in before D/C Order can be placed): Home, Self Care
--- NOTE | 2022-05-04 11:47 | PCM.DC.SUM ---
Documented by User: Mariajose Cancino NP, COMMERCIAL LITIGATION PARALEGAL-C 05/04/22 13:26 Providers Date of Admission: 05/02/22 Date of Discharge: 05/04/22 Primary Care Physician: EDER Helms Reason For Visit: PNEUMONIA; HYPOXIA Diagnosis Discharge Diagnosis (1) COVID-19: Status: Acute Code(s): U07.1 - COVID-19 (2) Pneumonia: Status: Acute Code(s): J18.9 - Pneumonia, unspecified organism Medications at Discharge Home Medications potassium chloride 20 mEq tablet,extended release(part/cryst) 20 meq PO DAILY Low potassium 09/27/15 atorvastatin 40 mg tablet 40 mg PO QHS Cholesterol 08/20/16 metformin 500 mg tablet 500 mg PO BID Diabetes 05/09/19 furosemide 20 mg tablet 20 - 40 mg PO DAILY PRN Edema 04/01/20 metoprolol tartrate 100 mg tablet 50 mg PO BID Afib 02/17/21 warfarin 2.5 mg tablet 2.5 mg PO DAILY #90 tabs 05/26/21 prazosin 2 mg capsule 2 mg PO BID #180 caps 11/15/21 flecainide 50 mg tablet 50 mg PO Q12H #180 tabs 11/16/21 fexofenadine 180 mg tablet 180 mg PO DAILY PRN PRN Allergic Symptoms 01/11/22 tiotropium 2.5 mcg-olodaterol 2.5 mcg/actuation mist for inhalation (Stiolto Respimat) 2 puff inhalation DAILY #4 grams 01/11/22 mesalamine 800 mg tablet,delayed release 800 mg PO BID colitis 01/12/22 dexamethasone 6 mg tablet 6 mg PO DAILY #8 tabs 05/04/22 doxycycline hyclate 100 mg capsule 100 mg PO BID infection 05/04/22 molnupiravir 200 mg capsule (EUA) 800 mg PO Q12H covid 05/04/22 Hospital Course Operations None Procedures None Summary of Care Provided Hospital Course: Patient is a 77-year-old male admitted 05/02/2022 due to weakness. 1.? Acute hypoxia secondary to COVID-19 pneumonia-bacterial pneumonia ruled out. Documented to be 88% on room air in the emergency room.? Initially requiring 2 to 3 L nasal cannula. Oral Decadron for 10-day course.? Walking pulse ox completed and patient does not require further supplemental oxygen. Follow-up with PCP in 1 week. 2. Acute kidney injury on chronic kidney disease stage IIIa- CHRISTOPHER resolved. 3. Type 2 diabetes mellitus-continue home metformin regimen. 4. Chronic heart failure with preserved ejection fraction-echo October 2021 demonstrated an EF of 55%. Resume Lasix at discharge. 5. Paroxysmal atrial fibrillation-on flecainide, metoprolol, Coumadin. 6. Hypertension-stable, continue current regimen. 7. Hyperlipidemia-continue statin. 8. SILVER with nocturnal oxygen use-continue home CPAP/O2 regimen. 9. Chronic COPD-as needed albuterol aerosol. 10. Lung cancer-following with Dr. Gillespie. 11. Morbid obesity-diet and lifestyle modifications encouraged. Physical Exam Const alert and oriented x3 Nutritional Appearance: obese HEENT normocephalic and moist oral mucous membranes Eyes PERRL, EOMs intact bilaterally and conjunctivae normal Neck no lymphadenopathy Resp clear to auscultation bilaterally Auscultation: diminished lung sounds Cardio no murmurs Cardio Narrative: A. fib, rate controlled Peripheral Pulses: pulses 2+ throughout GI normal to inspection, nondistended, normoactive bowel sounds, non-tender and non-distended Extremity normal to inspection Skin no rashes or lesions noted Lesions: no lesions Rashes: no rashes Trauma: no lacerations or abrasions Neuro CN's II-XII intact bilaterally, no focal motor deficits, no sensory deficits noted and deep tendon reflexes 2+ bilaterally Psych mental status grossly normal and affect normal Patient seen and examined prior to discharge. Physical assessment as noted above. Patient is stable for discharge with follow up recommendations as noted above. This patient was seen by ANTONIO Daily under the supervision of Dr. Major. Weight / BMI Weight Weight: 292 lb 8.854 oz Body Mass Index (BMI) 43.2 ABG / Lab / Microbiology Data Result Diagrams: 05/04/22 05:14 05/04/22 05:14 Laboratory: Laboratory Results - last 24 hr 05/03/22 17:08: POC Glucose 272 H 05/03/22 22:06: POC Glucose 416 H 05/04/22 05:14: WBC 11.7 H, RBC 4.41 L, Hgb 13.1, Hct 38.8 L, MCV 88.0, MCH 29.7, MCHC 33.8, RDW Std Deviation 43.8, RDW Coeff of Jadon 13.5, Plt Count 186, MPV 10.5, Immature Gran % (Auto) 1.600 H, Neut % (Auto) 85.8 H, Lymph % (Auto) 6.8 L, [place] % (Auto) 5.7, Eos % (Auto) 0.0, Baso % (Auto) 0.1, Absolute Neuts (auto) 10.0 H, Absolute Lymphs (auto) 0.79 L, Nucleated RBC % 0 05/04/22 05:14: Sodium 136, Potassium 4.5, Chloride 108 H, Carbon Dioxide 19.0 L, Anion Gap 9, BUN 30 H, Creatinine 1.23, Estim Creat Clear Calc 51.09, Est GFR (MDRD) Af Amer 74, Est GFR (MDRD) Non-Af 61, BUN/Creatinine Ratio 24.4 H, Glucose 259 H, Calcium 8.2 L 05/04/22 06:29: POC Glucose 293 H 05/04/22 10:59: POC Glucose 333 H Microbiology: Microbiology 05/03/22 06:45 Urine, Clean Catch Legionella Antigen - Final 05/03/22 06:45 Urine, Clean Catch Streptococcus pneumoniae Antigen (M - Final D/C Instructions Discharge Diet: Low fat / Low cholesterol and Carb Control Diet Call your doctor if you observe: Fever of 101 or Higher, Shortness of breath, Dizziness and Chest pain Meaningful Use Info Meaningful Use Diagnoses (Choose all that apply): None applicable Discharge Plan Admission Admit Date/Time: 05/02/22 23:13 Primary Reason for Your Visit: Hypoxia, covid Attending Provider: Sarah Major Primary Care Provider: Fransisca Wright Consulting Providers: Brandon Michel Discharge Orders/Prescriptions Prescriptions: New dexamethasone 6 mg tablet 6 mg PO DAILY Qty: 8 0RF Continued metformin 500 mg tablet 500 mg PO BID furosemide 20 mg tablet 20 - 40 mg PO DAILY PRN (Reason: Edema) warfarin 2.5 mg tablet 2.5 mg PO DAILY Qty: 90 3RF Protocol: Dose Management Condition: Monday Dose/Route: 2.5 mg Instruction: 1 x 2.5 mg tablet Condition: Monday Dose/Route: 2.5 mg Instruction: 1 x 2.5 mg tablet Condition: Monday Dose/Route: 2.5 mg Instruction: 1 x 2.5 mg tablet Condition: Monday Dose/Route: 2.5 mg Instruction: 1 x 2.5 mg tablet Condition: Dose/Route: 2.5 mg Instruction: 1 x 2.5 mg tablet Condition: Monday Dose/Route: 5 mg Instruction: 2 x 2.5 mg tablets Condition: Monday Dose/Route: 2.5 mg Instruction: 1 x 2.5 mg tablet Protocol Text: Adjustment Start Date: Monday04/15/22 INR Value: 2.0 INR Date: 04/15/22 Recheck Date: 04/29/22 Stiolto Respimat 2.5-2.5 mcg/actuation mist 2 puff inhalation DAILY Qty: 4 6RF potassium chloride 20 MEQ tablet 20 meq PO DAILY Label Comments: supplement atorvastatin 40 MG tablet 40 mg PO QHS Label Comments: cholesterol metoprolol tartrate 100 mg tablet 50 mg PO BID fexofenadine 180 mg tablet 180 mg PO DAILY PRN PRN (Reason: Allergic Symptoms) mesalamine 800 mg tablet,delayed release (DR/EC) 800 mg PO BID prazosin 2 mg capsule 2 mg PO BID Qty: 180 3RF flecainide 50 mg tablet 50 mg PO Q12H Qty: 180 3RF No Action doxycycline hyclate 100 mg capsule 100 mg PO BID molnupiravir 200 mg capsule 800 mg PO Q12H Referrals / Follow Up: Fransisca Wright PA [Primary Care Provider] - 05/11/22 1:00 pm (Your appt will be with Latrice Vu) Disposition Disposition (needs filled in before D/C Order can be placed): Home, Self Care Documented by User: Dr. Sarah Major DO 05/04/22 13:46 Providers Date of Admission: 05/02/22 Reason For Visit: PNEUMONIA; HYPOXIA Diagnosis Discharge Diagnosis (1) COVID-19: Status: Acute Code(s): U07.1 - COVID-19 (2) Pneumonia: Status: Acute Code(s): J18.9 - Pneumonia, unspecified organism Medications at Discharge Home Medications potassium chloride 20 mEq tablet,extended release(part/cryst) 20 meq PO DAILY Low potassium 09/27/15 atorvastatin 40 mg tablet 40 mg PO QHS Cholesterol 08/20/16 metformin 500 mg tablet 500 mg PO BID Diabetes 05/09/19 furosemide 20 mg tablet 20 - 40 mg PO DAILY PRN Edema 04/01/20 metoprolol tartrate 100 mg tablet 50 mg PO BID Afib 02/17/21 warfarin 2.5 mg tablet 2.5 mg PO DAILY #90 tabs 05/26/21 prazosin 2 mg capsule 2 mg PO BID #180 caps 11/15/21 flecainide 50 mg tablet 50 mg PO Q12H #180 tabs 11/16/21 fexofenadine 180 mg tablet 180 mg PO DAILY PRN PRN Allergic Symptoms 01/11/22 tiotropium 2.5 mcg-olodaterol 2.5 mcg/actuation mist for inhalation (Stiolto Respimat) 2 puff inhalation DAILY #4 grams 01/11/22 mesalamine 800 mg tablet,delayed release 800 mg PO BID colitis 01/12/22 dexamethasone 6 mg tablet 6 mg PO DAILY #8 tabs 05/04/22 doxycycline hyclate 100 mg capsule 100 mg PO BID infection 05/04/22 molnupiravir 200 mg capsule (EUA) 800 mg PO Q12H covid 05/04/22 Hospital Course Summary of Care Provided Minutes Spent on Discharge: 37 Hospital Course: Mr. Oshea is a 77-year-old white male presented [facility] emergency department [facility] with a chief complaint of weakness. He had been having a 2-week history of progressively work and sitting weakness with associated diarrhea, worsening cough that was productive and intermittent wheezes. He presented to our emergency department on the complaining of similar symptoms and a COVID test was performed as well as blood cultures both of which were found to be negative at the time. PCR was performed at this hospitalization and was found to be positive. His is also suffering from COVID-19 symptoms. He was admitted to the medical floor and had an oxygen saturation of 88% at his lowest and had significant acute kidney injury related to dehydration with a serum creatinine of 1.89. It appears his baseline is anywhere from 1.2-1.3. He was treated with IV fluids, given Decadron as he did have some intermittent hypoxia and initially placed on IV antibiotics. Strep pneumo and Legionella antigens were negative and he had no infiltrate on his chest x-ray with a normal white count. His antibiotics were discontinued as the concern for superimposed bacterial pneumonia was extremely low. He was tested for oxygen needs prior to discharge and was stable on room air both with rest and exertion. His diarrhea had resolved and his serum creatinine at time of discharge was back to baseline at 1.23. He was discharged to completed Decadron course of 10 days and is instructed to follow-up with his PCP in 1 week. Discharge diagnoses: Acute hypoxia secondary to COVID-19 CHRISTOPHER on CKD stage IIIa-resolved Diarrhea-resolved DM-2 HFpEF-compensated PAF Hypertension Hyperlipidemia SILVER See the History of lung cancer Morbid obesity Ulcerative colitis BPH Physical Exam Const alert, oriented x3, no apparent distress and well nourished Constitutional Narrative: Morbidly obese, older white male, sitting up in a chair at the bedside in his 's room, appears comfortable nontoxic, patient remains on room air General Appearance: cooperative, comfortable, well kempt and well developed Orientation / Consciousness: awake Exam Limitations: no limitations Nutritional Appearance: obese HEENT normocephalic, head/scalp atraumatic and moist oral mucous membranes Eyes PERRL, EOMs intact bilaterally and conjunctivae normal Neck no lymphadenopathy Resp normal respiratory effort, no retractions, no use of accessory muscles and clear to auscultation bilaterally Resp Narrative: Diffusely diminished but otherwise clear Auscultation: diminished lung sounds; Negative for crackles, rales, rhonchi or wheezes Cardio regular rate, regular rhythm, S1 normal heart sound, S2 normal heart sound, no murmurs, no rub, no gallops and no clicks GI normal to inspection, nondistended, normoactive bowel sounds, soft to palpation, non-tender and non-distended Palpation: hernia umbilical (Easily reducible) Extremity normal to inspection and no clubbing, cyanosis or edema Extremity Narrative: Pedal pulses 2+ Neuro oriented x3, CN's II-XII intact bilaterally, moves all extremities and no focal motor deficits Speech: speech normal Psych mental status grossly normal and affect normal Psych Narrative: Very pleasant and appropriately interactive ABG / Lab / Microbiology Data Result Diagrams: 05/04/22 05:14 05/04/22 05:14 Discharge Plan Admission Admit Date/Time: 05/02/22 23:13 Primary Reason for Your Visit: Hypoxia, covid Attending Provider: Sarah Major Primary Care Provider: Fransisca Wright Consulting Providers: Brandon Michel Discharge Orders/Prescriptions Prescriptions: New dexamethasone 6 mg tablet 6 mg PO DAILY Qty: 8 0RF Continued metformin 500 mg tablet 500 mg PO BID furosemide 20 mg tablet 20 - 40 mg PO DAILY PRN (Reason: Edema) warfarin 2.5 mg tablet 2.5 mg PO DAILY Qty: 90 3RF Protocol: Dose Management Condition: Monday Dose/Route: 2.5 mg Instruction: 1 x 2.5 mg tablet Condition: Monday Dose/Route: 2.5 mg Instruction: 1 x 2.5 mg tablet Condition: Monday Dose/Route: 2.5 mg Instruction: 1 x 2.5 mg tablet Condition: Monday Dose/Route: 2.5 mg Instruction: 1 x 2.5 mg tablet Condition: Dose/Route: 2.5 mg Instruction: 1 x 2.5 mg tablet Condition: Monday Dose/Route: 5 mg Instruction: 2 x 2.5 mg tablets Condition: Monday Dose/Route: 2.5 mg Instruction: 1 x 2.5 mg tablet Protocol Text: Adjustment Start Date: Monday04/15/22 INR Value: 2.0 INR Date: 04/15/22 Recheck Date: 04/29/22 Stiolto Respimat 2.5-2.5 mcg/actuation mist 2 puff inhalation DAILY Qty: 4 6RF potassium chloride 20 MEQ tablet 20 meq PO DAILY Label Comments: supplement atorvastatin 40 MG tablet 40 mg PO QHS Label Comments: cholesterol metoprolol tartrate 100 mg tablet 50 mg PO BID fexofenadine 180 mg tablet 180 mg PO DAILY PRN PRN (Reason: Allergic Symptoms) mesalamine 800 mg tablet,delayed release (DR/EC) 800 mg PO BID prazosin 2 mg capsule 2 mg PO BID Qty: 180 3RF flecainide 50 mg tablet 50 mg PO Q12H Qty: 180 3RF No Action doxycycline hyclate 100 mg capsule 100 mg PO BID molnupiravir 200 mg capsule 800 mg PO Q12H Referrals / Follow Up: Fransisca Wright PA [Primary Care Provider] - 05/11/22 1:00 pm (Your appt will be with Latrice Vu) Disposition Disposition (needs filled in before D/C Order can be placed): Home, Self Care Charges/Coding Visit Charges Inpatient E&M: 66648 Disch Hosp
--- NOTE | 2022-05-04 11:54 | CASEMGMT ---
Pt's order for O2 is 2L continuous per [facility], but pt states only wears at night bleed in to cpap. Pt tested on room air and does not qualify for any home oxygen currently. Pt has pulse ox at home. Pt's is also admitted and he has been independently going between his room and hers(next door) without concerns. Per therapy, nothing further recommended. CM to follow for any further discharge planning/needs. SStradha NORRIS CM
--- NOTE | 2022-05-04 11:55 | PHA.DC.MR ---
Pharmacy Service has performed discharge medication reconciliation for this patient. The patient's discharge medication list was reviewed for discrepancies and discrepancies were resolved. Home Medications potassium chloride 20 mEq tablet,extended release(part/cryst) 20 meq PO DAILY Low potassium 09/27/15 atorvastatin 40 mg tablet 40 mg PO QHS Cholesterol 08/20/16 metformin 500 mg tablet 500 mg PO BID Diabetes 05/09/19 furosemide 20 mg tablet 20 - 40 mg PO DAILY PRN Edema 04/01/20 metoprolol tartrate 100 mg tablet 50 mg PO BID Afib 02/17/21 warfarin 2.5 mg tablet 2.5 mg PO DAILY #90 tabs 05/26/21 prazosin 2 mg capsule 2 mg PO BID #180 caps 11/15/21 flecainide 50 mg tablet 50 mg PO Q12H #180 tabs 11/16/21 fexofenadine 180 mg tablet 180 mg PO DAILY PRN PRN Allergic Symptoms 01/11/22 tiotropium 2.5 mcg-olodaterol 2.5 mcg/actuation mist for inhalation (Stiolto Respimat) 2 puff inhalation DAILY #4 grams 01/11/22 mesalamine 800 mg tablet,delayed release 800 mg PO BID colitis 01/12/22 dexamethasone 6 mg tablet 6 mg PO DAILY #8 tabs 05/04/22 doxycycline hyclate 100 mg capsule 100 mg PO BID infection 05/04/22 molnupiravir 200 mg capsule (EUA) 800 mg PO Q12H covid 05/04/22
== END 2022-05-04 15:07 | disposition home or self-care (01) | DRG 177 ==
LOC: ED 23:08 → PCU 23:31
PROVIDERS: Nurse Practitioner Family; Admitting Provider Hospitalist; Emergency Provider Emergency Medicine; PCP Physician Assistant; Visit Provider Internal Medicine
DX: U07.1 COVID-19 (principal); J12.82 Pneumonia due to coronavirus disease 2019; N17.9 Acute kidney failure, unspecified; I13.0 Hypertensive heart and chronic kidney disease with heart failure and stage 1 through stage 4 chronic kidney disease, or unspecified chronic kidney disease; C34.90 Malignant neoplasm of unspecified part of unspecified bronchus or lung; J44.0 Chronic obstructive pulmonary disease with (acute) lower respiratory infection; I50.32 Chronic diastolic (congestive) heart failure; Z68.41 Body mass index [BMI] 40.0-44.9, adult; K51.90 Ulcerative colitis, unspecified, without complications; E11.22 Type 2 diabetes mellitus with diabetic chronic kidney disease; E86.0 Dehydration; I48.0 Paroxysmal atrial fibrillation; N18.31 Chronic kidney disease, stage 3a; E66.01 Morbid (severe) obesity due to excess calories; E78.00 Pure hypercholesterolemia, unspecified; F41.9 Anxiety disorder, unspecified; G47.33 Obstructive sleep apnea (adult) (pediatric); R19.7 Diarrhea, unspecified; Z79.01 Long term (current) use of 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s; Z79.899 Other long term (current) drug therapy; Z79.84 Long term (current) use of oral hypoglycemic drugs; Z87.891 Personal history of nicotine dependence; R09.02 Hypoxemia; N40.0 Benign prostatic hyperplasia without lower urinary tract symptoms
CPT/HCPCS: 36415; 71045; 80048; 80053; 82962; 83036; 83880; 85025; 85610; 87449; 87635; 93005; 94640; 94660; 97162; 97166; 99285; J7030; A4216; J0696; U0003; U0005

== ENCOUNTER 2022-05-30 15:41 | Outpatient (RCR) | payer MEDICARE, SELFPAY ==
[2022-05-06 23:37] VITALS: BMI 44.6
[2022-05-16 10:46] LABS: INR Fingerstick 3.6; Prothrombin Time Fingerstick 40.7 SEC (11.7-14.9)
[2022-05-23 10:51] LABS: INR Fingerstick 2.8; Prothrombin Time Fingerstick 32.3 SEC (11.7-14.9)
[2022-05-30 15:51] LABS: INR Fingerstick 3.7; Prothrombin Time Fingerstick 41.6 SEC (11.7-14.9)
== END 2022-05-30 18:00 | disposition home or self-care (01) ==
LOC: LAB 15:41
PROVIDERS: PCP Physician Assistant; Referring Provider Internal Medicine Cardiovascular Disease; Visit Provider Internal Medicine Cardiovascular Disease
DX: I48.0 Paroxysmal atrial fibrillation (principal); I48.92 Unspecified atrial flutter; Z79.01 Long term (current) use of 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s
CPT/HCPCS: 36416; 85610

== ENCOUNTER 2022-06-17 14:18 | Outpatient (RCR) | payer MEDICARE, SELFPAY ==
[2022-06-07 10:25] VITALS: BMI 44.6
[2022-06-07 12:25] LABS: INR Fingerstick 2.1; Prothrombin Time Fingerstick 24.4 SEC (11.7-14.9)
== END 2022-07-06 18:00 | disposition home or self-care (01) ==
LOC: LAB 14:18
PROVIDERS: PCP Physician Assistant; Referring Provider Internal Medicine Cardiovascular Disease; Visit Provider Internal Medicine Cardiovascular Disease
DX: I48.0 Paroxysmal atrial fibrillation (principal); I48.92 Unspecified atrial flutter; Z79.01 Long term (current) use of 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s
CPT/HCPCS: 36416; 85610

== ENCOUNTER → 2022-06-17 | Outpatient (CLI) | payer MEDICARE, SELFPAY ==
--- NOTE | 2022-06-17 13:48 | CT_ITS ---
STUDY: CT ABDOMEN AND PELVIS WITH AND WITHOUT CONTRAST REASON FOR EXAM: Male, 77 years old. HEMATURIA. RADIATION DOSAGE (If Supplied By Facility): CTDIvol = ( 34.07 ) mGy, DLP = ( 4243.84 ) mGycm TECHNIQUE: Transaxial images were obtained from the dome of the diaphragm to the symphysis pubis without oral contrast. IV 100mL Isovue-300 was administered. Sagittal and coronal images were reconstructed. Individualized dose optimization techniques were used for this CT. COMPARISON: None. FINDINGS: The visualized lung bases are unremarkable. The visualized portions of the heart are within normal limits. There is decreased attenuation of the liver consistent with steatosis. Normal gallbladder and extrahepatic biliary system. Normal spleen. Normal pancreas. Normal bilateral adrenal glands. Normal right kidney. Normal left kidney. Nonspecific mild degree of bilateral perinephric stranding. Normal visualized stomach. Normal small intestine. There are multiple colonic diverticula consistent with diverticulosis. The appendix is visualized and appears normal. There is diffuse atherosclerotic calcification of the abdominal aorta, without a demonstrated aneurysm. Normal inferior vena cava. Normal retroperitoneum. Normal urinary bladder. There is a small umbilical hernia containing fat. There are diffuse degenerative changes of the visualized lumbar spine. There is evidence of bilateral hip replacement limiting the evaluation of the pelvic structures. CT/CT Abd/Pelvis W/WO Contrast IMPRESSION: Nonspecific bilateral perinephric stranding. Fatty infiltration of the liver. Electronically Signed: Awais Mullins MD at 15:28 EST ,
[2022-06-20 09:15] LABS: CREATININE FINGERSTICK 1.29 mg/dL (0.70-1.30); EGFR FINGERSTICK 58 mL/min (>60)
== END | disposition home or self-care (01) ==
PROVIDERS: PCP Physician Assistant
DX: R31.0 Gross hematuria (principal)
CPT/HCPCS: 74178; Q9967; A4216

== ENCOUNTER 2022-08-02 16:04 | Outpatient (RCR) | payer MEDICARE, SELFPAY ==
[2022-07-07 01:33] VITALS: BMI 44.6
[2022-07-19 09:45] LABS: INR Fingerstick 1.7; Prothrombin Time Fingerstick 20.1 SEC (11.7-14.9)
[2022-07-26 13:00] LABS: INR Fingerstick 1.5; Prothrombin Time Fingerstick 18.2 SEC (11.7-14.9)
[2022-08-02 16:11] LABS: INR Fingerstick 2.4; Prothrombin Time Fingerstick 27.9 SEC (11.7-14.9)
== END 2022-08-02 18:00 | disposition home or self-care (01) ==
LOC: LAB 16:04
PROVIDERS: PCP Physician Assistant; Referring Provider Internal Medicine Cardiovascular Disease; Visit Provider Internal Medicine Cardiovascular Disease
DX: I48.0 Paroxysmal atrial fibrillation (principal); I48.92 Unspecified atrial flutter; Z79.01 Long term (current) use of 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s
CPT/HCPCS: 36416; 85610

== ENCOUNTER 2022-08-08 12:47 | Observation (INO) | payer MEDICARE, SELFPAY ==
[2022-08-08 12:48] VITALS: BP 137/54; PULSE 69; RESP 15; TEMP 35.7; O2SAT 97; BMI 43.5
--- NOTE | 2022-08-08 14:02 | EDS_ITS ---
HPI HPI - GI History of Present Illness Chief Complaint: GI Bleed Informant: patient Narrative Narrative: Patient is a 77-year-old male with history of ulcerative colitis, CKD, proximal atrial fibrillation on chronic Coumadin therapy, COPD, chronic diastolic heart failure and hyperlipidemia presenting with diarrhea and bright red blood per rectum. Patient states his symptoms started 4 days ago. Does get some crampy abdominal pain just before he has a bowel movement. The diarrhea is somewhat improved today and he states his last bowel movement just prior to arrival looked more like hamburger meat. The stool itself looked bloody but there was not a significant mount of blood in the toilet bowl. He states around 3 AM he had a more significant amount of bleeding that completely filled the toilet bowl with blood. He tried taking Imodium the first 2 days of symptoms with no help. He continues to take his Coumadin his last dose was last night. His last colonoscopy was a couple years ago by Dr. Samayoa. His GI doctor is Dr. Quarles. Patient states he has some weakness and shortness of breath which has been ongoing and not changed. States he does feel little dizzy but attributes that to his chronic weakness. He denies any fever Chills or chest pain. States he is on mesalamine chronically for his UC. States its been sometime since his last flare. Patient did have a work-up for hematuria and had a cystoscopy in [place] after referral for by Dr. Mcghee. States nothing came of that. Denies any recent hematuria. 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 SILVER (obstructive sleep apnea) Paroxysmal atrial fibrillation Paroxysmal atrial flutter Pure hypercholesterolemia Sleep apnea SOB (shortness of breath) Tachycardia Type 2 diabetes mellitus Ulcerative colitis Home Medications potassium chloride 20 mEq tablet,extended release(part/cryst) 20 meq PO DAILY Low potassium 09/27/15 [History Last Taken 08/08/22] atorvastatin 40 mg tablet 40 mg PO QHS Cholesterol 08/20/16 [History Last Taken 08/07/22] metformin 500 mg tablet 500 mg PO BID Diabetes 10/03/19 [History Last Taken 08/08/22] furosemide 20 mg tablet 20 - 40 mg PO DAILY PRN Edema 04/01/20 [History Last Taken 08/07/22] metoprolol tartrate 100 mg tablet 50 mg PO BID Afib 02/17/21 [History Last Taken 08/08/22] fexofenadine 180 mg tablet 180 mg PO DAILY PRN PRN Allergic Symptoms 01/11/22 [History Last Taken 08/08/22] mesalamine 800 mg tablet,delayed release 800 mg PO BID colitis 01/12/22 [History Last Taken 08/08/22] flecainide 50 mg tablet 50 mg PO Q12H afib 08/08/22 [History Last Taken 08/08/22] prazosin 2 mg capsule 2 mg PO BID bp 08/08/22 [History Last Taken 08/08/22] tiotropium 2.5 mcg-olodaterol 2.5 mcg/actuation mist for inhalation (Meme AppsolPatience Respimat) 2 puff inhalation DAILY SOB 08/08/22 [History Last Taken 08/08/22] warfarin 2.5 mg tablet 2.5 mg PO .COMPLEX blood thinner 08/08/22 [History Last Taken 08/07/22] Allergy/AdvReac Type Severity Reaction Status Date / Time amlodipine Allergy Severe Rash Verified 08/08/22 12:50 Penicillins Allergy Hives Verified 08/08/22 12:50 azithromycin AdvReac Diarrhea Verified 08/08/22 12:50 celecoxib [From Celebrex] AdvReac RECTAL Verified 08/08/22 12:50 BLEEDING Family History Mother Colon cancer Heart disease Father CAD (coronary artery disease) Sister Diabetes Brother Heart disease Diabetes Surgical History History of bilateral hip replacements History of knee surgery History of radiofrequency ablation procedure for cardiac arrhythmia (~08/11/15) Social History Smoking Status: Former smoker alcohol intake: current details: rare substance use type: does not use caffeine: Yes Type: coffee Number of servings: 3 ROS ROS ED Constitutional Constitutional ED: Denies chills or fever(s) ENT ENT ED: Denies sore throat Cardiovascular Cardiovascular: Denies chest pain or palpitations Respiratory/Chest Respiratory/Chest: Reports dyspnea; Denies cough Gastrointestinal Gastrointestinal: Reports abdominal pain, diarrhea and melena Genitourinary Genitourinary ED: Denies dysuria or hematuria Musculoskeletal Musculoskeletal: Denies arthralgias or myalgias Integumentary Denies rash Neurologic Neurologic: Denies headache(s) or weakness Psychiatric Psychiatric: Denies anxiety Hematologic/Lymphatic Hematologic/Lymphatic: Reports easy bleeding and easy bruising EXAM Physical Exam Const Vital Signs: 08/08/22 12:48 08/08/22 18:10 08/08/22 19:12 Temperature 96.2 F L 98.1 F 97.8 F Temperature Source Temporal Temporal Temporal Pulse Rate 69 81 65 Respiratory Rate 15 16 16 Blood Pressure 137/54 H 146/91 H 127/51 H Blood Pressure Mean 81 109 76 Blood Pressure Source Monitor Blood Pressure Position Sitting Blood Pressure Location Right Arm Pulse Ox 97 94 98 Oxygen Delivery Method Room Air Room Air Room Air Positive well nourished, well developed and obese General Appearance ED: well developed and NAD; Negative for pallor Nutritional Appearance: obese HEENT Reports moist mucous membranes normocephalic and atraumatic Eyes PERRL and EOMs intact bilaterally General Eye ED: Negative for pale conjunctiva Neck supple Resp normal respiratory effort and clear to auscultation bilaterally Cardio regular rate, regular rhythm and no murmurs GI non-tender and non-distended GI Narrative: Protuberant abdomen Auscultation: hypoactive bowel sounds Palpation: soft; Negative for tender, guarding or rigid Back/Spine no CVA tenderness Extremity full ROM Neuro moves all extremities Sensorium / Orientation: alert, oriented to person, oriented to place and oriented to time Psych mental status grossly normal and thought process normal Skin General Skin Exam: Negative for pallor Rashes: no rashes MDM MDM MDM Narrative Medical decision making narrative: Patient evaluated for 4 days of diarrhea and bright red blood per rectum. History is complicated by his history of ulcerative colitis as well as his chronic Coumadin therapy. Vital signs are normal upon arrival. Patient is at significant risk of blood loss. Differential also includes but is not limited to infectious diarrhea, diverticulitis or bleeding AVM. On physical exam patient does not have a peritoneal abdomen and overall appears well. Will give maintenance fluids at 125 an hour and check labs including a lactate as well as an INR. Depending on labs will determine if imaging is indicated. Patient is of a mild anemia of 11.7 which is a drop from his baseline. His INR is therapeutic at 3.0. His lactate is elevated at 3.[address] is ordered. Patient does have another bowel movement in the ER that has reddish stool in it but it is not grossly bloody. His creatinine is elevated but at his baseline. He does not have a leukocytosis. CT of the abdomen and pelvis shows questionable wall thickening of the descending and sigmoid colon. This is consi stent with his presentation of colitis likely a UC flare. Case is discussed with surgery on-call, Dr. Carballo, as we do not have GI coverage today. He states that the only surgical intervention for this would be a subtotal colectomy which he does not perform. This would require transport. If medicine would like to treat it nonsurgically that is reasonable but he does not have further surgical recommendations. Patient is started on IV Solu-Medrol, Cipro and Flagyl in the ER. Procalcitonin is added on which is minimally elevated at 0.22. Differential also includes ischemic colitis however he is not having significant pain and does have a history of ulcerative colitis. Initially does not have any fever or other infectious symptoms including a leukocytosis to suspect primary infectious colitis. Patient is admitted to [facility] for further medical treatment. The case and my conversation with surgery as discussed with admitting physician, Dr. Major. Lab Data Labs: Laboratory Results - last 24 hr 08/08/22 08/08/22 08/08/22 14:31 14:31 14:31 WBC 6.8 RBC 3.94 L Hgb 11.7 L Hct 36.5 L MCV 92.6 MCH 29.7 MCHC 32.1 RDW Std Deviation 46.5 H RDW Coeff of Jadon 13.6 Plt Count 252 MPV 9.4 Immature Gran % (Auto) 0.900 Neut % (Auto) 54.0 Lymph % (Auto) 24.2 Tyrrell % (Auto) 11.0 H Eos % (Auto) 9.5 H Baso % (Auto) 0.4 Absolute Neuts (auto) 3.7 Absolute Lymphs (auto) 1.65 Nucleated RBC % 0 PT 31.1 H INR 3.0 Sodium 139 Potassium 4.0 Chloride 108 H Carbon Dioxide 23.0 Anion Gap 8 BUN 17 Creatinine 1.49 H Estim Creat Clear Calc 42.18 Est GFR (MDRD) Af Amer 59 L Est GFR (MDRD) Non-Af 49 L BUN/Creatinine Ratio 11.4 Glucose 160 H Lactic Acid Calcium 8.1 L Total Bilirubin 0.80 AST 13 L ALT 19 Alkaline Phosphatase 55 Total Protein 7.1 Albumin 3.0 L Globulin 4.1 Albumin/Globulin Ratio 0.7 L Procalcitonin 08/08/22 08/08/22 08/08/22 14:31 15:21 18:47 WBC RBC Hgb Hct MCV MCH MCHC RDW Std Deviation RDW Coeff of Jadon Plt Count MPV Immature Gran % (Auto) Neut % (Auto) Lymph % (Auto) Tyrrell % (Auto) Eos % (Auto) Baso % (Auto) Absolute Neuts (auto) Absolute Lymphs (auto) Nucleated RBC % PT INR Sodium Potassium Chloride Carbon Dioxide Anion Gap BUN Creatinine Estim Creat Clear Calc Est GFR (MDRD) Af Amer Est GFR (MDRD) Non-Af BUN/Creatinine Ratio Glucose Lactic Acid 3.1 H* 2.7 H* Calcium Total Bilirubin AST ALT Alkaline Phosphatase Total Protein Albumin Globulin Albumin/Globulin Ratio Procalcitonin 0.22 H Radiography Diagnostic Testing: Clinical Impression(s) from Imaging Studies Abdomen/Pelvis CT 08/08/22 15:13 IMPRESSION: 1. Mild hepatic steatosis. 2. Stable nonspecific perinephric fat stranding. 3. Fat-containing umbilical hernia. 4. Questionable wall thickening of the descending and sigmoid colon. Electronically Signed: Jordan Zapata MD at 16:12 EST , Discharge Plan Dx/Rx/DC Orders Clinical Impression: Colitis, Ulcerative colitis, GI bleed, Lactic acidosis, Coagulopathy, CKD (chronic kidney disease) Disposition Disposition: Acute Care [facility] Discharge Date/Time: 08/08/22 18:43
[2022-08-08] MEDS: 0.9% Normal Saline 1,000 ML 125 ML IV ×2 (14:38→23:25)
[2022-08-08 14:40] LABS: Absolute Lymphocyte Count 1.65 X10^3/uL (0.83-4.51); Absolute Neutrophil Count 3.7 X10^3/uL (2.0-7.7); Basophil# 0.03 X10^3/uL; Basophil% 0.4 % (0-1); Eosinophil# 0.65 X10^3/uL; Eosinophils% 9.5 % (0-5); Hematocrit 36.5 % (40-54); Hemoglobin 11.7 g/dL (13.0-16.5); Lymphocyte # 1.65 X10^3/ul (0.83-4.51); Lymphocyte % 24.2 % (19-41); Mean Corp Hgb Conc 32.1 g/dL (32-36); Mean Corpuscular Hgb 29.7 pg (27.0-32.0); Mean Corpuscular Volume 92.6 fL (80-94); Mean Platelet Vol. 9.4 fl (6.2-12.0); Monocyte# 0.75 X10^3/uL; NRBC Flagged by Analyzer 0 % (0-5); Neutrophil # 3.67 X10^3/uL (2.7-7.7); Platelet Count 252 K/mm3 (150-450); RBC Distribution Width CV 13.6 % (11.6-14.6); RBC Distribution Width SD 46.5 fl (35.1-43.9); Red Blood Count 3.94 M/mm3 (4.6-6.2); White Blood Count 6.8 K/mm3 (4.4-11.0)
[2022-08-08 14:48] LABS: Prothrombin Time (Protime)PT. 31.1 SECONDS (11.7-14.9)
[2022-08-08 15:05] LABS: ALB/GLOB Ratio 0.7 RATIO (0.9-2.4); AST(SGOT) 13 U/L (15-37); Alanine Aminotransfer ALT/SGPT 19 U/L (16-61); Alkaline Phosphatase 55 U/L (45-117); Anion Gap 8 (5-15); BUN 17 mg/dL (7-18); BUN/Creat Ratio 11.4 RATIO (10-20); Calcium,Total 8.1 mg/dL (8.5-10.1); Chloride 108 mmol/L (98-107); Creatinine, Serum 1.49 mg/dL (0.70-1.30); EST Glomerular Filtration Rate 49 mL/min (>60); Est Glom Filt Rate - Afr Amer 59 mL/min (>60); Estimated Creatinine Clearance 42.18 ml/min; Globulin 4.1 g/dL (2.2-4.2); Glucose 160 mg/dL (74-106); Protein, Total 7.1 g/dL (6.4-8.2); Sodium Level 139 mmol/L (136-145)
--- NOTE | 2022-08-08 15:09 | ED.RN ---
lactic 3.1. dr torres aware
[2022-08-08 15:11] LABS: Lactic Acid 3.1 mmol/L (0.4-1.9)
--- NOTE | 2022-08-08 15:13 | CT_ITS ---
EXAM: CT ABDOMEN AND PELVIS WITH INTRAVENOUS CONTRAST CLINICAL INDICATION: gi bleed X 4 DAYS TECHNIQUE: Helically acquired images were obtained of the abdomen and pelvis with intravenous contrast. This CT exam was performed using one or more of the following dose reduction techniques: automated exposure control, adjustment of the mA and/or kV according to patient size, and/or use of iterative reconstruction technique. This report was created using [employer] report generation technology. CONTRAST: IV 100mL Isovue-370 COMPARISON: CT Abdomen Pelvis dated 06/17/2022 FINDINGS: LOWER THORAX: Normal. Lung bases are clear. No cardiomegaly. No pericardial effusion. ABDOMEN: LIVER: Mild hepatic steatosis. GALLBLADDER AND BILE DUCTS: Normal. No calcified gallstones. No gallbladder distention or wall edema. No intra- or extrahepatic biliary ductal dilation. PANCREAS: Normal. No focal cystic or solid mass. SPLEEN: Normal. Normal size without focal cystic or solid mass. ADRENALS: Normal. No nodules. KIDNEYS AND URETERS: Stable nonspecific perinephric fat stranding. Stable cortical thinning within the upper pole of the left kidney and interpolar region of the left kidney. Normal renal size and position. STOMACH AND BOWEL: 3.6 cm duodenal diverticulum. Left colon is contracted which may account for the wall thickening. PELVIS: APPENDIX: Appendix is visualized and normal in appearance. BLADDER: Normal. REPRODUCTIVE: Unremarkable as visualized. No mass. ABDOMEN and PELVIS: INTRAPERITONEAL SPACE: Normal. No ascites or other fluid collection. No free air. BONES/JOINTS: Normal. No suspicious lytic or blastic abnormality. SOFT TISSUES: Urinary bladder is not adequately visualized secondary to significant artifacts from hip prosthesis. Fat-containing umbilical hernia again seen. VASCULATURE: Normal. Abdominal aorta is non-dilated. LYMPH NODES: Normal. No enlarged lymph nodes. CT/Abdomen/Pelvis W IV Cont ONLY IMPRESSION: 1. Mild hepatic steatosis. 2. Stable nonspecific perinephric fat stranding. 3. Fat-containing umbilical hernia. 4. Questionable wall thickening of the descending and sigmoid colon. Electronically Signed: Jordan Zapata MD at 16:12 EST ,
[2022-08-08 15:59] LABS: Procalcitonin 0.22 ng/mL (0.00-0.09)
[2022-08-08] MEDS: Ciprofloxacin 400 MG/200 ML BAG 200 MG IV (17:06)
[2022-08-08] MEDS: MethylPREDNISolone 125 MG/2 ML Vial IV ×2 (17:06→23:25)
--- NOTE | 2022-08-08 17:15 | NURSING ---
MED SURG SHAKEEL ULCERATIVE COLITIS FLARE, BRIGHT RED BLOOD PER RECTUM
[2022-08-08 18:04] VITALS: BMI 43.5
[2022-08-08 18:10] VITALS: BP 146/91; PULSE 81; RESP 16; TEMP 36.7; O2SAT 94
[2022-08-08 18:36] LABS: Reflex Lactate? Y
[2022-08-08 19:12] VITALS: BP 127/51; PULSE 65; RESP 16; TEMP 36.6; O2SAT 98
[2022-08-08 19:19] LABS: Lactic Acid 2.7 mmol/L (0.4-1.9)
--- NOTE | 2022-08-08 19:45 | NURSING ---
Emergency Documentation
--- NOTE | 2022-08-08 20:18 | HP.PCM.HOS_ITS ---
HPI - General General Date of Admission: 08/08/22 Date of Service: 08/08/22 Chief Complaint: Rectal bleeding HPI Narrative AVELINA BULL, is a 77 M who presented to the emergency department was coming hospital on 08/08/2022 complaining of bright red blood per rectum with diarrhea. The patient reports that symptoms started approximately 4 days ago. He complained of some mild crampy abdominal pain before he has a bowel movement and he has been having diarrhea that is somewhat improved today. He reports his last bowel movement just prior to arrival looked more like hamburger meat. He reported that his overall stool volume and the amount of bleeding has improved. He has a history of ulcerative colitis for which she takes mesalamine. He is on Coumadin chronically and is INR was elevated at 3 on admission. He had followed with Dr. Quarles previously but has not seen him in a long time. His last colonoscopy was about 2 to 3 years ago and was done by Dr. Samayoa. He states he has not had a UC flare in a long time. He indicated he was feeling a little bit dizzy but attributed that to his chronic weakness. He denies any sig nificant lightheadedness, fever, chills, chest pain, or shortness of breath. Vital signs at time of presentation demonstrated temperature of 97.3, heart rate 67, blood pressure 141/71, respiratory rate was 18 and oxygen saturation was 94% on room air. CBC showed a normal white count however he did have anemia with a hemoglobin 11.7. It appears his baseline hemoglobin is 13-14 with his last 1 be ing done at the end of April at 13.1. His INR was 3 and he is on Coumadin chronically. His chemistry panel showed mild serum creatinine elevation. It appears his baseline serum creatinine runs between 1.2 and 1.3. His serum creatinine on his chemistry panel was 1.49. His lactate was slightly elevated 2.7. His LFTs were unremarkable. His procalcitonin was 0.22. CT of the abdomen pelvis showed mild hepatic steatosis with stable nonspecific perinephritic fat stranding, fat-containing umbilical hernia, and questionable wall thickening of the descending and sigmoid colon. [facility] Medical History Anxiety Atrial fibrillation 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, adult Chronic diastolic heart failure CKD (chronic kidney disease) Congestive heart failure (CHF) COPD (chronic obstructive pulmonary disease) COVID-19 CPAP (continuous positive airway pressure) dependence Diabetes Essential hypertension Former smoker [facility] current use of 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 SILVER (obstructive sleep apnea) Paroxysmal atrial fibrillation Paroxysmal atrial flutter Pure hypercholesterolemia Sleep apnea SOB (shortness of breath) Tachycardia Type 2 diabetes mellitus Ulcerative colitis Home Medications potassium chloride 20 mEq tablet,extended release(part/cryst) 20 meq PO DAILY Low potassium 09/27/15 [History Last Taken 08/08/22] atorvastatin 40 mg tablet 40 mg PO QHS Cholesterol 08/20/16 [History Last Taken 08/07/22] metformin 500 mg tablet 500 mg PO BID Diabetes 05/09/19 [History Last Taken 08/08/22] furosemide 20 mg tablet 20 - 40 mg PO DAILY PRN Edema 04/01/20 [History Last Taken 08/07/22] metoprolol tartrate 100 mg tablet 50 mg PO BID Afib 02/17/21 [History Last Taken 08/08/22] fexofenadine 180 mg tablet 180 mg PO DAILY PRN PRN Allergic Symptoms 01/11/22 [History Last Taken 08/08/22] mesalamine 800 mg tablet,delayed release 800 mg PO BID colitis 01/12/22 [History Last Taken 08/08/22] flecainide 50 mg tablet 50 mg PO Q12H afib 08/08/22 [History Last Taken 09/29] prazosin 2 mg capsule 2 mg PO BID bp 08/08/22 [History Last Taken 08/08/22] tiotropium 2.5 mcg-olodaterol 2.5 mcg/actuation mist for inhalation (Stiolto Respimat) 2 puff inhalation DAILY SOB 08/08/22 [History Last Taken 08/08/22] warfarin 2.5 mg tablet 2.5 mg PO .COMPLEX blood thinner 08/08/22 [History Last Taken 08/07/22] Allergy/AdvReac Type Severity Reaction Status Date / Time amlodipine Allergy Severe Rash Verified 08/08/22 12:50 Penicillins Allergy Hives Verified 08/08/22 12:50 azithromycin AdvReac Diarrhea Verified 08/08/22 12:50 celecoxib [From Celebrex] AdvReac RECTAL Verified 08/08/22 12:50 BLEEDING Family History Mother Colon cancer Heart disease Father CAD (coronary artery disease) Sister Diabetes Brother Heart disease Diabetes Surgical History History of bilateral hip replacements History of knee surgery History of radiofrequency ablation procedure for cardiac arrhythmia (~08/11/15) Social History Smoking Status: Former smoker alcohol intake: current details: rare substance use type: does not use caffeine: Yes Type: coffee Number of servings: 3 ROS Constitutional Constitutional: Reports weakness; Denies anorexia, change in weight, chills, fatigue, fever(s), malaise, night sweats or other Eyes Eyes: Denies blurry vision, change in eye color, change in vision, discharge from eye(s), double vision, erythema, eye pain, loss of vision or other ENT HEENT: Denies abnormal hearing, dysphagia, ear pain, epistaxis, headache(s), hearing loss, nasal congestion, nasal discharge, post nasal drip, sinus pressure, sore throat or other Cardiovascular Cardiovascular: Denies chest pain, claudication, dyspnea on exertion, edema, lightheadedness, orthopnea, palpitations, paroxysmal nocturnal dyspnea, rapid heart rate, syncope or other Respiratory/Chest Respiratory/Chest: Denies cough, dyspnea, excessive phlegm production, hemoptysis, productive cough, shortness of breath at rest, shortness of breath with exertion, wheezing or other Gastrointestinal Gastrointestinal: Reports diarrhea, hematochezia and melena; Denies abdominal pain, coffee ground emesis, constipation, dyspepsia, hematemesis, loose stools, nausea, vomiting or other Genitourinary Genitourinary: Denies burning urination, difficulty urinating, dysuria, hematuria, nocturia, urinary frequency, urinary hesitancy, urinary incontinence, urinary urgency or other Musculoskeletal Musculoskeletal: Denies arthralgias, back pain, joint pain, joint stiffness, joint swelling, myalgias, neck pain or other Neurologic Neurologic: Denies abnormal gait, abnormal speech, confusion, disequilibrium, dizziness, focal weakness, headache(s), numbness, paresthesias, seizure-like activity, seizures, syncope, tingling, tremor(s) or other Psychiatric Psychiatric: Denies anxiety, depression, homicidal ideation, suicidal ideation or other Endocrine Endocrinology: Denies change in body appearance, cold intolerance, excessive sweating, heat intolerance, polydipsia, polyuria or other Hematologic/Lymphatic Hematologic/Lymphatic: Denies anemia, easy bleeding, easy bruising, lymphadenopathy or other Allergic/Immunologic Allergic/Immunologic: Denies rhinitis, hives, eczemia, asthma or other Vital Signs Vital Signs Vital Signs: 08/08/22 12:48 08/08/22 18:10 08/08/22 19:12 Temperature 96.2 F L 98.1 F 97.8 F Temperature Source Temporal Temporal Temporal Pulse Rate 69 81 65 Respiratory Rate 15 16 16 Blood Pressure 137/54 H 146/91 H 127/51 H Blood Pressure Mean 81 109 76 Blood Pressure Source Monitor Blood Pressure Position Sitting Blood Pressure Location Right Arm Pulse Ox 97 94 98 Oxygen Delivery Method Room Air Room Air Room Air Weight Weight: 133.81 kg Body Mass Index (BMI) 43.5 Physical Exam Const alert, oriented x3, no apparent distress and well nourished Constitutional Narrative: Elderly white male, morbidly obese, sitting in a chair in the emergency department with his at his bedside, very pleasant, recognizes me and I recognize him from previous admissions General Appearance: cooperative HEENT normocephalic, head/scalp atraumatic and moist oral mucous membranes HEENT Narrative: Mild to moderate hearing loss, Mallampati 3, no thrush Eyes PERRL, EOMs intact bilaterally and conjunctivae normal Eyes Narrative: No scleral icterus Neck no lymphadenopathy and supple Neck Narrative: Trachea midline, no thyroid enlargement Resp normal respiratory effort, no retractions, no use of accessory muscles and clear to auscultation bilaterally Resp Narrative: Diminished but clear Auscultation: Negative for crackles, rhonchi or wheezes Cardio regular rate, regular rhythm, S1 normal heart sound, S2 normal heart sound, no murmurs, no rub, no gallops and no clicks GI normal to inspection, nondistended, normoactive bowel sounds, soft to palpation and non-tender GI Narrative: Umbilical hernia Palpation: hernia Extremity Extremity Narrative: Chronic but stable bilateral lower extremity edema, 2+ pedal pulses Skin no rashes or lesions noted, no wounds, skin turgor normal, no jaundice, no petechiae and no mottling Neuro oriented x3, CN's II-XII intact bilaterally, moves all extremities and no focal motor deficits Speech: speech normal Psych affect normal Psych Narrative: Very pleasant Results Lab / Micro Data Attestation: I reviewed the patient's lab results. Result Diagrams: 08/08/22 14:31 08/08/22 14:31 Labs: Laboratory Results - last 24 hr 08/08/22 14:31: WBC 6.8, RBC 3.94 L, Hgb 11.7 L, Hct 36.5 L, MCV 92.6, MCH 29.7, MCHC 32.1, RDW Std Deviation 46.5 H, RDW Coeff of Jadon 13.6, Plt Count 252, MPV 9.4, Immature Gran % (Auto) 0.900, Neut % (Auto) 54.0, Lymph % (Auto) 24.2, [place] % (Auto) 11.0 H, Eos % (Auto) 9.5 H, Baso % (Auto) 0.4, Absolute Neuts (auto) 3.7, Absolute Lymphs (auto) 1.65, Nucleated RBC % 0 08/08/22 14:31: PT 31.1 H, INR 3.0 08/08/22 14:31: Sodium 139, Potassium 4.0, Chloride 108 H, Carbon Dioxide 23.0, Anion Gap 8, BUN 17, Creatinine 1.49 H, Estim Creat Clear Calc 42.18, Est GFR (MDRD) Af Amer 59 L, Est GFR (MDRD) Non-Af 49 L, BUN/Creatinine Ratio 11.4, Glucose 160 H, Calcium 8.1 L, Total Bilirubin 0.80, AST 13 L, ALT 19, Alkaline Phosphatase 55, Total Protein 7.1, Albumin 3.0 L, Globulin 4.1, Albumin/Globulin Ratio 0.7 L 08/08/22 14:31: Lactic Acid 3.1 H* 08/08/22 15:21: Procalcitonin 0.22 H 08/08/22 18:47: Lactic Acid 2.7 H* Radiology Impression Abdomen/Pelvis CT 08/08/22 15:13 IMPRESSION: 1. Mild hepatic steatosis. 2. Stable nonspecific perinephric fat stranding. 3. Fat-containing umbilical hernia. 4. Questionable wall thickening of the descending and sigmoid colon. Electronically Signed: Jordan Zapata MD at 16:12 EST , Assessment & Plan Assessment/Plan (1) GI bleed: (2) Creatinine elevation: (3) Lactic acidosis: (4) Coagulopathy: PLAN: Plan GI bleed secondary to suspected UC flare -Start Solu-Medrol 125 every 6 per discussion with gastroenterology -Continue home mesalamine -Hold Coumadin but without reversal -Consider vitamin K if serial hemoglobin dropped precipitously -Repeat INR in a.m. -Clear liquid diet -Gastroenterology consult Diarrhea -Suspect related to UC flare -We will check C. difficile and enteric panel -With UC I would expect his lactoferrin to be positive so we will not check at this time Lactic acidosis -Likely related to the above -Repeat lactate has improved Serum creatinine elevation -Baseline creatinine appears to be between 1.2 and 1.3 -Current serum creatinine 1.49 -We will hydrate and repeat BMP in a.m. -Avoid nephrotoxins as able -hold home Lasix as/metformin -On home schedule potassium Coumadin induced coagulopathy -Hold Coumadin -Hold reversal for now but if serial hemoglobins drop precipitously would recommend vitamin K 5 mg x 1 dose SILVER -CPAP 11 cm of water at at bedtime Lung cancer -Pathology as clear as his care has been performed in [place] at [facility] -Patient did undergo 5 episodes of radiation -No lung resection performed -No current chemotherapy being performed -No current issues Paroxysmal atrial fibrillation -Continue flecainide -Continue metoprolol -Hold Coumadin -Has had previous ablation done at [place] Hypertension -Hold Lasix -Continue home metoprolol Hyperlipidemia -Continue home statin CKD stage IIIb -Baseline serum creatinine is 1.2-1.3 -Current serum creatinine is 1.47 -See above DM-2 -Continue to hold home oral agents -Patient will be on IV steroids for UC flare -Start Lantus 10 units at at bedtime as I do expect the steroids to significantly drive up his blood sugars -Sliding scale -Accu-Cheks BPH -Continue prazosin Ulcerative colitis -Continue mesalamine -See above DVT prophylaxis -Anticoagulation on hold secondary to above -SCDs bilateral CODE STATUS -Full code Charges/Coding Visit Charges Inpatient E&M: 60132 Init Hosp L3
[2022-08-08 21:47] LABS: Hematocrit 39.8 % (40-54); Hemoglobin 12.5 g/dL (13.0-16.5)
[2022-08-08 22:31] VITALS: BP 138/54; PULSE 73; RESP 18; TEMP 36.7; O2SAT 94
[2022-08-08] MEDS: Metoprolol Tartrate 50 MG Tablet PO (22:31)
[2022-08-08] MEDS: Atorvastatin Calcium 40 MG Tablet PO (22:31)
[2022-08-08] MEDS: Flecainide 100 MG Tablet 50 MG PO (22:31)
[2022-08-08] MEDS: Doxazosin 1 MG Tablet 1.5 MG PO (22:31)
[2022-08-08] MEDS: MESALAMINE 400 MG CAPSULE.DR 800 MG PO (22:31)
[2022-08-08] MEDS: Insulin Glargine-YFGN 100 UNIT/ML Pen 10 UNIT SC (22:31)
[2022-08-08 22:50] LABS: Bedside Glucose 223 mg/dL (74-106)
--- NOTE | 2022-08-08 23:00 | EX.PCM.CON.G ---
HPI Consult Data Date of Consult: 08/08/22 HPI Narrative Reason for Consultation: Ulcerative colitis HPI Narrative: AVELINA BULL, is a 77-year-old male with history of ulcerative colitis (on 1.6 g of mesalamine daily), CKD, proximal atrial fibrillation on chronic Coumadin therapy, COPD, chronic diastolic heart failure and hyperlipidemia. He is presenting with diarrhea and bright red blood per rectum.? Patient states his symptoms started 4 days ago.? He does get some crampy abdominal pain just before he has a bowel movement. The last time he had steroids was approximately 2 months ago after being treated for COVID. ? He states around 3 AM he had a more significant amount of bleeding that completely filled the toilet bowl with blood.? He tried taking Imodium the first 2 days of symptoms with no help.? He continues to take his Coumadin his last dose was last night.? His last colonoscopy was a couple years ago by Dr. Samayoa.? His GI doctor is Dr. Quarles.? He does not know the results of the colonoscopy but he has been maintained on the same mesalamine dosage. Patient states he has some? weakness and shortness of breath which has been ongoing and not changed.? States he does feel little dizzy but attributes that to his chronic weakness. He denies any fever Chills or chest pain.? He had a CT scan abdomen pelvis that it showed left-sided colitis from the splenic flexure down to the rectum. [facility] Medical History Anxiety Atrial fibrillation 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, adult Chronic diastolic heart failure CKD (chronic kidney disease) Congestive heart failure (CHF) COPD (chronic obstructive pulmonary disease) COVID-19 CPAP (continuous positive airway pressure) dependence Diabetes Essential hypertension Former smoker [employer] current use of 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 SILVER (obstructive sleep apnea) Paroxysmal atrial fibrillation Paroxysmal atrial flutter Pure hypercholesterolemia Sleep apnea SOB (shortness of breath) Tachycardia Type 2 diabetes mellitus Ulcerative colitis Home Medications potassium chloride 20 mEq tablet,extended release(part/cryst) 20 meq PO DAILY Low potassium 09/27/15 [History Last Taken 08/08/22] atorvastatin 40 mg tablet 40 mg PO QHS Cholesterol 08/20/16 [History Last Taken 08/07/22] metformin 500 mg tablet 500 mg PO BID Diabetes 05/09/19 [History Last Taken 08/08/22] furosemide 20 mg tablet 20 - 40 mg PO DAILY PRN Edema 04/01/20 [History Last Taken 08/07/22] metoprolol tartrate 100 mg tablet 50 mg PO BID Afib 02/17/21 [History Last Taken 08/08/22] fexofenadine 180 mg tablet 180 mg PO DAILY PRN PRN Allergic Symptoms 01/11/22 [History Last Taken 08/08/22] mesalamine 800 mg tablet,delayed release 800 mg PO BID colitis 01/12/22 [History Last Taken 08/08/22] flecainide 50 mg tablet 50 mg PO Q12H afib 08/08/22 [History Last Taken 08/08/22] prazosin 2 mg capsule 2 mg PO BID bp 08/08/22 [History Last Taken 08/08/22] tiotropium 2.5 mcg-olodaterol 2.5 mcg/actuation mist for inhalation (Stiolto Respimat) 2 puff inhalation DAILY SOB 08/08/22 [History Last Taken 08/08/22] warfarin 2.5 mg tablet 2.5 mg PO .COMPLEX blood thinner 08/08/22 [History Last Taken 08/07/22] Allergy/AdvReac Type Severity Reaction Status Date / Time amlodipine Allergy Severe Rash Verified 08/08/22 12:50 Penicillins Allergy Hives Verified 08/08/22 12:50 azithromycin AdvReac Diarrhea Verified 08/08/22 12:50 celecoxib [From Celebrex] AdvReac RECTAL Verified 08/08/22 12:50 BLEEDING Family History Mother Colon cancer Heart disease Father CAD (coronary artery disease) Sister Diabetes Brother Heart disease Diabetes Surgical History History of bilateral hip replacements History of knee surgery History of radiofrequency ablation procedure for cardiac arrhythmia (~08/11/15) Social History Smoking Status: Former smoker alcohol intake: current details: rare substance use type: does not use caffeine: Yes Type: coffee Number of servings: 3 ROS Constitutional Constitutional: Reports weakness; Denies anorexia, change in weight, chills, fatigue, fever(s), malaise, night sweats or other Eyes Eyes: Denies blurry vision, change in eye color, change in vision, discharge from eye(s), double vision, erythema, eye pain, loss of vision or other ENT HEENT: Denies abnormal hearing, dysphagia, ear pain, epistaxis, headache(s), hearing loss, nasal congestion, nasal discharge, post nasal drip, sinus pressure, sore throat or other Cardiovascular Cardiovascular: Denies chest pain, claudication, dyspnea on exertion, edema, lightheadedness, orthopnea, palpitations, paroxysmal nocturnal dyspnea, rapid heart rate, syncope or other Respiratory/Chest Respiratory/Chest: Denies cough, dyspnea, excessive phlegm production, hemoptysis, productive cough, shortness of breath at rest, shortness of breath with exertion, wheezing or other Gastrointestinal Gastrointestinal: Reports diarrhea, hematochezia and melena; Denies abdominal pain, coffee ground emesis, constipation, dyspepsia, hematemesis, loose stools, nausea, vomiting or other Genitourinary Genitourinary: Denies burning urination, difficulty urinating, dysuria, hematuria, nocturia, urinary frequency, urinary hesitancy, urinary incontinence, urinary urgency or other Musculoskeletal Musculoskeletal: Denies arthralgias, back pain, joint pain, joint stiffness, joint swelling, myalgias, neck pain or other Neurologic Neurologic: Denies abnormal gait, abnormal speech, confusion, disequilibrium, dizziness, focal weakness, headache(s), numbness, paresthesias, seizure-like activity, seizures, syncope, tingling, tremor(s) or other Psychiatric Psychiatric: Denies anxiety, depression, homicidal ideation, suicidal ideation or other Endocrine Endocrinology: Denies change in body appearance, cold intolerance, excessive sweating, heat intolerance, polydipsia, polyuria or other Hematologic/Lymphatic Hematologic/Lymphatic: Denies anemia, easy bleeding, easy bruising, lymphadenopathy or other Allergic/Immunologic Allergic/Immunologic: Denies rhinitis, hives, eczemia, asthma or other Physical Exam Const alert, oriented x3, no apparent distress and well nourished Constitutional Narrative: Elderly white male & very pleasant General Appearance: cooperative HEENT normocephalic, head/scalp atraumatic and moist oral mucous membranes Eyes PERRL, EOMs intact bilaterally and conjunctivae normal Eyes Narrative: No scleral icterus Neck no lymphadenopathy and supple Neck Narrative: Trachea midline, no thyroid enlargement Resp normal respiratory effort, no retractions, no use of accessory muscles and clear to auscultation bilaterally Resp Narrative: Diminished but clear Auscultation: Negative for crackles, rhonchi or wheezes Cardio regular rate, regular rhythm, S1 normal heart sound, S2 normal heart sound, no murmurs, no rub, no gallops and no clicks GI normal to inspection, nondistended, normoactive bowel sounds, soft to palpation and non-tender GI Narrative: Umbilical hernia Palpation: hernia Extremity Extremity Narrative: Chronic but stable bilateral lower extremity edema, 2+ pedal pulses Skin no rashes or lesions noted, no wounds, skin turgor normal, no jaundice, no petechiae and no mottling Neuro oriented x3, CN's II-XII intact bilaterally, moves all extremities and no focal motor deficits Speech: speech normal Psych affect normal Psych Narrative: Very pleasant Lab / Micro Data Result Diagrams: 08/09/22 08:25 08/09/22 06:40 Labs: Laboratory Results - last 24 hr 08/08/22 14:31: WBC 6.8, RBC 3.94 L, Hgb 11.7 L, Hct 36.5 L, MCV 92.6, MCH 29.7, MCHC 32.1, RDW Std Deviation 46.5 H, RDW Coeff of Jadon 13.6, Plt Count 252, MPV 9.4, Immature Gran % (Auto) 0.900, Neut % (Auto) 54.0, Lymph % (Auto) 24.2, [place] % (Auto) 11.0 H, Eos % (Auto) 9.5 H, Baso % (Auto) 0.4, Absolute Neuts (auto) 3.7, Absolute Lymphs (auto) 1.65, Nucleated RBC % 0 08/08/22 14:31: PT 31.1 H, INR 3.0 08/08/22 14:31: Sodium 139, Potassium 4.0, Chloride 108 H, Carbon Dioxide 23.0, Anion Gap 8, BUN 17, Creatinine 1.49 H, Estim Creat Clear Calc 42.18, Est GFR (MDRD) Af Amer 59 L, Est GFR (MDRD) Non-Af 49 L, BUN/Creatinine Ratio 11.4, Glucose 160 H, Calcium 8.1 L, Total Bilirubin 0.80, AST 13 L, ALT 19, Alkaline Phosphatase 55, Total Protein 7.1, Albumin 3.0 L, Globulin 4.1, Albumin/Globulin Ratio 0.7 L 08/08/22 14:31: Lactic Acid 3.1 H* 08/08/22 15:21: Procalcitonin 0.22 H 08/08/22 18:47: Lactic Acid 2.7 H* 08/08/22 21:10: Hgb 12.5 L, Hct 39.8 L 08/08/22 22:25: POC Glucose 223 H 08/09/22 02:26: Hgb 12.1 L, Hct 38.4 L 08/09/22 06:19: POC Glucose 222 H 08/09/22 06:40: WBC 6.6, RBC 3.98 L, Hgb 12.0 L, Hct 37.9 L, MCV 95.2 H, MCH 30.2, MCHC 31.7 L, RDW Std Deviation 47.1 H, RDW Coeff of Jadon 13.3, Plt Count 219, MPV 9.3, Immature Gran % (Auto) 0.800, Neut % (Auto) 76.8 H, Lymph % (Auto) 20.4, [place] % (Auto) 1.5, Eos % (Auto) 0.2, Baso % (Auto) 0.3, Absolute Neuts (auto) 5.1, Absolute Lymphs (auto) 1.34, Nucleated RBC % 0 08/09/22 06:40: Sodium 134 L, Potassium 4.2, Chloride 105, Carbon Dioxide 21.0, Anion Gap 8, BUN 16, Creatinine 1.18, Estim Creat Clear Calc 53.26, Est GFR (MDRD) Af Amer 77, Est GFR (MDRD) Non-Af 64, BUN/Creatinine Ratio 13.6, Glucose 250 H, Calcium 7.8 L, Phosphorus 2.7, Magnesium 1.9, Total Bilirubin 0.90, AST 12 L, ALT 19, Alkaline Phosphatase 53, Total Protein 6.9, Albumin 2.8 L, Globulin 4.1, Albumin/Globulin Ratio 0.7 L 08/09/22 06:40: PT 32.0 H, INR 3.1 08/09/22 08:25: Hgb 12.9 L, Hct 38.7 L Radiology Impression Abdomen/Pelvis CT 08/08/22 15:13 IMPRESSION: 1. Mild hepatic steatosis. 2. Stable nonspecific perinephric fat stranding. 3. Fat-containing umbilical hernia. 4. Questionable wall thickening of the descending and sigmoid colon. Electronically Signed: Jordan Zapata MD at 16:12 EST , Assessment & Plan Assessment/Plan (1) Ulcerative colitis: PLAN: Patient likely has an ulcerative colitis flare. Previous imaging does show severe ulcerative colitis that has been maintained in remission with mesalamine based therapy. He has decreased his mesalamine from 3 times a day to twice a day due to the cost of the medicine. He has not given stool specimen for enteric pathogens or C. difficile. He has had recent antibiotics and Paxlovid for COVID in the past 6 months. He denies any extraintestinal manifestations of ulcerative colitis at this time. He is still on his current Coumadin dosage and is still having some lower GI bleeding. He needs a colonoscopy for complete staging to see if his medication regimen needs to be changed, escalated or stopped. He was explained alternatives, risk, benefits including not withstanding bleeding, infection, sepsis, perforation, need for discharge and . He will have an ASA of 3. Charges/Coding Visit Charges Inpatient E&M: 09823 Init Hosp L3
[2022-08-09] VITALS (17 sets, daily range): BP systolic 115–149; BP diastolic 50–79; PULSE 63–102; RESP 16–20; TEMP 36.4–36.7; O2SAT 91–99; BMI 43.5
[2022-08-09 02:35] LABS: Hematocrit 38.4 % (40-54); Hemoglobin 12.1 g/dL (13.0-16.5)
--- NOTE | 2022-08-09 02:43 | CPS ---
Patient wears 2L HS
[2022-08-09] MEDS: MethylPREDNISolone 125 MG/2 ML Vial IV ×3 (06:21→17:58)
[2022-08-09] MEDS: 0.9% Normal Saline 1,000 ML 125 ML IV ×4 (06:26→23:58)
[2022-08-09] MEDS: Insulin Lispro 100 UNIT/ML INSULN.PEN SC ×3 (06:26→17:57)
[2022-08-09 06:40] LABS: Bedside Glucose 222 mg/dL (74-106)
[2022-08-09 07:00] LABS: Absolute Lymphocyte Count 1.34 X10^3/uL (0.83-4.51); Absolute Neutrophil Count 5.1 X10^3/uL (2.0-7.7); Basophil# 0.02 X10^3/uL; Basophil% 0.3 % (0-1); Eosinophil# 0.01 X10^3/uL; Eosinophils% 0.2 % (0-5); Hematocrit 37.9 % (40-54); Lymphocyte # 1.34 X10^3/ul (0.83-4.51); Lymphocyte % 20.4 % (19-41); Mean Corp Hgb Conc 31.7 g/dL (32-36); Mean Corpuscular Hgb 30.2 pg (27.0-32.0); Mean Corpuscular Volume 95.2 fL (80-94); Mean Platelet Vol. 9.3 fl (6.2-12.0); Monocyte% 1.5 % (0-10); NRBC Flagged by Analyzer 0 % (0-5); Neutrophil # 5.05 X10^3/uL (2.7-7.7); Neutrophil % 76.8 % (47-70); Platelet Count 219 K/mm3 (150-450); RBC Distribution Width CV 13.3 % (11.6-14.6); RBC Distribution Width SD 47.1 fl (35.1-43.9); Red Blood Count 3.98 M/mm3 (4.6-6.2); White Blood Count 6.6 K/mm3 (4.4-11.0)
[2022-08-09 07:10] LABS: International Normalized Ratio 3.1
[2022-08-09 07:27] LABS: ALB/GLOB Ratio 0.7 RATIO (0.9-2.4); AST(SGOT) 12 U/L (15-37); Alanine Aminotransfer ALT/SGPT 19 U/L (16-61); Albumin, Serum 2.8 g/dL (3.2-5.0); Alkaline Phosphatase 53 U/L (45-117); Anion Gap 8 (5-15); BUN 16 mg/dL (7-18); BUN/Creat Ratio 13.6 RATIO (10-20); Calcium,Total 7.8 mg/dL (8.5-10.1); Chloride 105 mmol/L (98-107); Creatinine, Serum 1.18 mg/dL (0.70-1.30); EST Glomerular Filtration Rate 64 mL/min (>60); Est Glom Filt Rate - Afr Amer 77 mL/min (>60); Estimated Creatinine Clearance 53.26 ml/min; Globulin 4.1 g/dL (2.2-4.2); Glucose 250 mg/dL (74-106); Magnesium 1.9 mg/dL (1.6-2.6); Phosphorus 2.7 mg/dL (2.5-4.9); Potassium 4.2 mmol/L (3.5-5.1); Protein, Total 6.9 g/dL (6.4-8.2); Sodium Level 134 mmol/L (136-145)
--- NOTE | 2022-08-09 08:18 | NURSING ---
2 seperate stool specimens sent in 2 different cups
[2022-08-09 08:35] LABS: Hematocrit 38.7 % (40-54); Hemoglobin 12.9 g/dL (13.0-16.5)
[2022-08-09] MEDS: Bisacodyl 5 MG Tablet 20 MG PO (08:37)
[2022-08-09] MEDS: Potassium Chloride Oral Tablet 20 MEQ PO (08:38)
[2022-08-09] MEDS: Doxazosin 1 MG Tablet 1.5 MG PO ×2 (08:39→21:22)
[2022-08-09] MEDS: Flecainide 100 MG Tablet 50 MG PO ×2 (08:39→21:23)
[2022-08-09] MEDS: Metoprolol Tartrate 50 MG Tablet PO (08:39)
[2022-08-09] MEDS: Polyethylene Glycol 3350 BOWEL PREP 1 BOTTLE PO (09:15)
--- NOTE | 2022-08-09 10:33 | NURSING ---
pt has completed 1/2 of miralax and gatorade prep along with the #4 dulcolax tabs, pt given other 1/2 of prep to drink-pt A&O x3
[2022-08-09 12:10] LABS: Bedside Glucose 280 mg/dL (74-106)
--- NOTE | 2022-08-09 12:12 | NURSING ---
pt has finished oral prep (miralax and gatorade) has had 4th stool and it is still solids mixed w/ soft and liquids
--- NOTE | 2022-08-09 15:22 | NURSING ---
AC staff came to get pt @ 1400-ext. tubing and stop cock on-last vitals in computer and AC staff/endo made aware unable to view bottom of toilet bowl, prep started this am, pt finished drinking prep @ 1200
--- NOTE | 2022-08-09 15:24 | NURSING ---
pt remains off unit
--- NOTE | 2022-08-09 16:00 | COLBX_PTH ---
PATIENT: AVELINA UBLL LOC: MS3 U#:[id number] AGE/SX: 77/M ROOM: AK317 RE08/08/[address]: Dr. Kevyn Gautam DO : 1945 BED: 1 DIS: 08/10/2022 SPEC #: [id number] RECD: 08/09/22 16:11 STATUS: BLAZE SRINIVASAJarret #: [id number] HERIBERTO: 08/09/22 16:[address]: Curtis Gorman DEPT: SURGICAL PATHOLOGY RECD BY: Jarocho Ocasio ENTERED: 08/10/22 08:04 SP TYPE: COLON BX MICHELL DR: DO Dr. Kevyn Garcia DO M Gregory Barton, [place] Tissues: A - Sigmoid colon biopsy B - COLON BIOPSY Procedures: Surgery Specimen Level IV HEADER OPERATION: Colonoscopy with polypectomy (MAC) PRE-OP DIAGNOSIS: Ulcerative colitis, GI bleed TISSUE SUBMITTED: A ? Sigmoid polyp, B ? Random colon MICROSCOPIC DIAGNOSIS A. Sigmoid polyp, polypectomy: Diffuse moderate chronic active colitis. See microscopic description and comment. B. Colon, random biopsy: Diffuse moderate chronic active colitis. See microscopic description and comment. SJ:avery 08/11/2022 COMMENT A. The findings may represent inflammatory pseudopolyp. A & B. The findings are consistent with inflammatory bowel disease (ulcerative colitis). Correlation with clinical, endoscopic findings and appropriate follow up are necessary. MICROSCOPIC DESCRIPTION Slides are reviewed. A & B. The specimen shows fragments of colonic mucosa with moderate acute and chronic inflammatory cell infiltrate in the lamina propria, cryptitis, crypt abscesses and granular distortion. No evidence of granuloma or dysplasia in the specimen. GROSS DESCRIPTION A - Received in fixative is one container labeled with the patient's name and designated sigmoid polyp. The specimen consists of two irregular fragments of light treviño soft tissue that in aggregate measure 0.3 x 0.2 x 0.1 cm. The specimen is totally submitted in one cassette. B - Received in fixative is one container labeled with the patient's name and designated random colon. The specimen consists of multiple irregular fragments of light treviño soft tissue that in aggregate measure 1.5 x 0.5 x 0.1 cm. The specimen is totally submitted in one cassette. / ROWENA:avery 08/10/2022 TC:2 CPT: 24524 x2
--- NOTE | 2022-08-09 16:06 | OP.COLON_ITS ---
Patient Name: Oliverio Oshea Procedure Date: 08/09/2022 3:26 PM Date of : 1945 Age: 77 Procedure: Colonoscopy Indications: Gastrointestinal bleeding, Left-sided chronic ulcerative colitis Providers: Curtis Gorman DO Medicines: Monitored Anesthesia Care Patient Profile: Last Colonoscopy: 3 years ago. Complications: No immediate complications. Procedure: Pre-Anesthesia Assessment: - Prior to the procedure, a History and Physical was performed, and patient medications and allergies were reviewed. The risks and benefits of the procedure and the sedation options and risks were discussed with the patient. All questions were answered and informed consent was obtained. Patient identification and proposed procedure were verified by the physician in the pre-procedure area. Mental Status Examination: alert and oriented. Airway Examination: normal oropharyngeal airway and neck mobility. Respiratory Examination: clear to auscultation. CV Examination: normal. Prophylactic Antibiotics: The patient does not require prophylactic antibiotics. Prior Anticoagulants: The patient has taken no previous 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 or antiplatelet agents. After reviewing the risks and benefits, the patient was deemed in satisfactory condition to undergo the procedure. The anesthesia plan was to use monitored anesthesia care (MAC). Immediately prior to administration of medications, the patient was re-assessed for adequacy to receive sedatives. The heart rate, respiratory rate, oxygen saturations, blood pressure, adequacy of pulmonary ventilation, and response to care were monitored throughout the procedure. The physical status of the patient was re-assessed after the procedure. After I obtained informed consent, the scope was passed under direct vision. Throughout the procedure, the patient's blood pressure, pulse, and oxygen saturations were monitored continuously. The pediatric colonoscope was introduced through the anus and advanced to the terminal ileum. The colonoscopy was performed without difficulty. The patient tolerated the procedure well. The quality of the bowel preparation was poor. Scope In: 3:44:38 PM Scope Withdrawal Time 0 hours 5 minutes 35 seconds Scope Out: 3:55:52 PM Total Procedure Duration Time 0 hours 11 minutes 14 seconds Findings: The perianal and digital rectal examinations were normal. A 5 mm polyp was found in the sigmoid colon. The polyp was sessile. The polyp was removed with a cold snare. Resection and retrieval were complete. Verification of patient identification for the specimen was done. Estimated blood loss was minimal. Inflammation characterized by erythema, friability and granularity was found in a continuous and circumferential pattern from the sigmoid colon to the cecum. This was severe, and when compared to previous examinations, the findings are worsened. Biopsies were taken with a cold forceps for histology. Verification of patient identification for the specimen was done. Estimated blood loss was minimal. Multiple small and large-mouthed diverticula were found in the recto-sigmoid colon, sigmoid colon and descending colon. Multiple three mm ulcers were found in the recto-sigmoid colon. Oozing was present. Stigmata of recent bleeding were present. Coagulation for hemostasis using heater probe was successful. Estimated blood loss was minimal. Impression: - Preparation of the colon was poor. - One 5 mm polyp in the sigmoid colon, removed with a cold snare. Resected and retrieved. - Colitis. Inflammation was found from the sigmoid colon to the cecum. This was severe, worsened compared to previous examinations. Biopsied. Recommendation: - Discharge patient to home. - Resume previous diet. - Continue present medications. - Await pathology results. - Stool cultures and C. difficile was taken as it looks like pseudomembranes - Vancomycin 125 mg p.o. every 6 hours x 14 days - If patient goes home he will need to be on prednisone 60 mg a day - Azathioprine 100 mg p.o. daily to titrate up to 1.5 mg a kilogram of body weight - QuantiFERON gold, chest x-ray, hepatitis B surface antibody and antigen testing in anticipation for escalation of IBD treatment - Amylase and lipase - Repeat colonoscopy in 6 months for surveillance. Procedure Code(s): --- Professional --- 23927, Colonoscopy, flexible; with removal of tumor(s), polyp(s), or other lesion(s) by snare technique 95950, 59, Colonoscopy, flexible; with biopsy, single or multiple CPT copyright 2017 [employer]. All rights reserved. The codes documented in this report are preliminary and upon out of town collection clerk review may be revised to meet current compliance requirements. Curtis Gorman DO 08/09/2022 4:06:06 PM This report has been signed electronically. Number of Addenda: 0 Note Initiated On: 08/09/2022 3:26 PM
--- NOTE | 2022-08-09 16:07 | OP.CCLET_ITS ---
08/09/2022 Fransisca Wright Re : Colonoscopy procedure for Oliverio Oshea Dear Kyle This procedure was performed on Tuesday, August 09, 2022. My impressions and recommendations are as follows: Impressions : - Preparation of the colon was poor. - One 5 mm polyp in the sigmoid colon, removed with a cold snare. Resected and retrieved. - Colitis. Inflammation was found from the sigmoid colon to the cecum. This was severe, worsened compared to previous examinations. Biopsied. Recommendations : - Discharge patient to home. - Resume previous diet. - Continue present medications. - Await pathology results. - Stool cultures and C. difficile was taken as it looks like pseudomembranes - Vancomycin 125 mg p.o. every 6 hours x 14 days - If patient goes home he will need to be on prednisone 60 mg a day - Azathioprine 100 mg p.o. daily to titrate up to 1.5 mg a kilogram of body weight - QuantiFERON gold, chest x-ray, hepatitis B surface antibody and antigen testing in anticipation for escalation of IBD treatment - Amylase and lipase - Repeat colonoscopy in 6 months for surveillance. My findings are described in the full procedure note, which is enclosed. If I can be of further assistance, please feel free to contact me at . Sincerely, Curtis Gorman, 08/09/2022 4:06:06 PM This report has been signed electronically.
--- NOTE | 2022-08-09 16:46 | CASEMGMT ---
RN CM in to pt room for assessment, pt in room and pt is off of floor for procedure. Per pt nurse, has dementia. RN CM to complete assessment at later time.
--- NOTE | 2022-08-09 17:20 | RAD_ITS ---
EXAM: XR CHEST, 1 VIEW CLINICAL INDICATION: cough TECHNIQUE: Frontal view of the chest. This report was created using [employer] report generation technology. COMPARISON: 05/02/2022 FINDINGS: LUNGS AND PLEURAL SPACES: Persistent scarring in the right apex and both lung bases. No pneumothorax. No effusion. HEART: Unremarkable. Cardiac silhouette not enlarged. MEDIASTINUM: Central airways and mediastinal contour are unremarkable. BONES/JOINTS: Unremarkable. SOFT TISSUES: Unremarkable. RAD/Chest 1 View (Portable) IMPRESSION: Scarring in the right apex and both lung bases. There is no acute pulmonary abnormality. There has been no change from the reference exam. Electronically Signed: Oscar Yadav MD at 17:48 EST ,
[2022-08-09 17:45] LABS: Bedside Glucose 190 mg/dL (74-106)
[2022-08-09] MEDS: azaTHIOprine 50 MG Tablet 100 MG PO (17:58)
--- NOTE | 2022-08-09 19:24 | PCM.PN.HOSP ---
Subjective Subjective Patient was seen and examined today, he went for a colonoscopy today which showed severe colitis in the right colon, ileum appeared to be involved questioning whether the patient could have actual Crohn's disease. A small polyp was removed also. I talked with gastroenterology late this afternoon and they recommended continuing IV Solu-Medrol at a lower dose, placing the patient on Imuran, and treating the patient for suspected C. difficile with p.o. vancomycin. Patient will be reevaluated tomorrow for possible discharge home. Objective Data Objective Data Vital Signs: Vital Signs Temp Pulse Resp BP Pulse Ox O2 Del Method O2 Flow Rate 97.7 F L 63 17 123/56 H 92 Room Air 2 08/09/22 17:15 08/09/22 17:15 08/09/22 17:15 08/09/22 17:15 08/09/22 17:15 08/09/22 17:15 08/09/22 09:30 Oxygen Flow Rate (L/min) 2 Oxygen Delivery Method Room Air Weight: 133.81 kg Body Mass Index (BMI) 43.5 Intake & Output: Intake and Output for Last 24 Hours 08/07/22 08/08/22 08/09/22 23:59 23:59 23:59 Intake Total 1350 / 1350 6267.50 / 6267.50 Balance 1350 / 1350 6267.50 / 6267.50 Lab / Micro Data Result Diagrams: 08/09/22 08:25 08/09/22 06:40 Labs: Laboratory Results - last 24 hr 08/08/22 21:10: Hgb 12.5 L, Hct 39.8 L 08/08/22 22:25: POC Glucose 223 H 08/09/22 02:26: Hgb 12.1 L, Hct 38.4 L 08/09/22 06:19: POC Glucose 222 H 08/09/22 06:40: WBC 6.6, RBC 3.98 L, Hgb 12.0 L, Hct 37.9 L, MCV 95.2 H, MCH 30.2, MCHC 31.7 L, RDW Std Deviation 47.1 H, RDW Coeff of Jadon 13.3, Plt Count 219, MPV 9.3, Immature Gran % (Auto) 0.800, Neut % (Auto) 76.8 H, Lymph % (Auto) 20.4, [place] % (Auto) 1.5, Eos % (Auto) 0.2, Baso % (Auto) 0.3, Absolute Neuts (auto) 5.1, Absolute Lymphs (auto) 1.34, Nucleated RBC % 0 08/09/22 06:40: Sodium 134 L, Potassium 4.2, Chloride 105, Carbon Dioxide 21.0, Anion Gap 8, BUN 16, Creatinine 1.18, Estim Creat Clear Calc 53.26, Est GFR (MDRD) Af Amer 77, Est GFR (MDRD) Non-Af 64, BUN/Creatinine Ratio 13.6, Glucose 250 H, Calcium 7.8 L, Phosphorus 2.7, Magnesium 1.9, Total Bilirubin 0.90, AST 12 L, ALT 19, Alkaline Phosphatase 53, Total Protein 6.9, Albumin 2.8 L, Globulin 4.1, Albumin/Globulin Ratio 0.7 L 08/09/22 06:40: PT 32.0 H, INR 3.1 08/09/22 08:25: Hgb 12.9 L, Hct 38.7 L 08/09/22 11:47: POC Glucose 280 H 08/09/22 17:17: POC Glucose 190 H Micro: Microbiology 08/09/22 08:15 Stool Enteric Bacteriology - Final 08/09/22 08:15 Stool C. difficile DNA Amplification - Final Radiography Diagnostic Testing: Radiology Impression Chest X-Ray 08/09/22 17:20 IMPRESSION: Scarring in the right apex and both lung bases. There is no acute pulmonary abnormality. There has been no change from the reference exam. Electronically Signed: Oscar Yadav MD at 17:48 EST , Physical Exam Const alert, oriented x3 and no apparent distress Constitutional Narrative: Patient is morbidly obese General Appearance: cooperative, well kempt and well developed Orientation / Consciousness: awake, oriented to person, oriented to place and oriented to time HEENT normocephalic, head/scalp atraumatic and moist oral mucous membranes Eyes PERRL, EOMs intact bilaterally and conjunctivae normal Neck supple, no JVD, thyroid normal and no carotid bruits General: trachea midline Resp normal respiratory effort, no retractions, no use of accessory muscles and clear to auscultation bilaterally Auscultation: Negative for rales, rhonchi or wheezes Cardio regular rate, regular rhythm, S1 normal heart sound, S2 normal heart sound, no murmurs, no rub and no gallops GI normal to inspection, nondistended, normoactive bowel sounds, soft to palpation, non-tender and non-distended Extremity no clubbing, cyanosis or edema Skin no rashes or lesions noted General Skin Exam: no breakdown Neuro oriented x3, CN's II-XII intact bilaterally, moves all extremities, no focal motor deficits and no sensory deficits noted Sensorium / Orientation: awake and alert Speech: speech normal Psych affect normal Assessment & Plan Assessment/Plan (1) Ulcerative colitis: PLAN: Plan 1. 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 #6 hypercoagulable state secondary to paroxysmal atrial fibrillation-patient's warfarin is being held at this time due to his flareup of ulcerative colitis #7 chronic kidney disease stage IIIb-complicates care, management, recovery, and prognosis #8 type 2 diabetes-patient is currently being given insulin in the hospital, he is not on insulin at home, administration of corticosteroids will complicate the patient's diabetic control, he will need close follow-up as an outpatient, patient remains on sliding scale insulin Total clinical time spent by myself addressing the patient's medical issues, reviewing the data, and collaborating with patient's care team: 35 minutes Charges/Coding Visit Charges Inpatient E&M: 15984 Subs Hosp L2
[2022-08-09] MEDS: Vancomycin 125 MG/5 ML Susp PO.SYRINGE PO ×2 (19:48→23:53)
[2022-08-09 20:00] LABS: Amylase 36 U/L (25-115); Lipase 59 U/L (73-393)
[2022-08-09 20:02] LABS: Erythrocyte Sedimentation Rate 70 mm/hr (0-20)
[2022-08-09] MEDS: MESALAMINE 400 MG CAPSULE.DR 800 MG PO (21:22)
[2022-08-09] MEDS: Atorvastatin Calcium 40 MG Tablet PO (21:23)
[2022-08-09] MEDS: Insulin Glargine-YFGN 100 UNIT/ML Pen 10 UNIT SC (21:23)
[2022-08-09 21:50] LABS: Bedside Glucose 289 mg/dL (74-106)
[2022-08-10 00:10] VITALS: PULSE 71; RESP 24; O2SAT 93
--- NOTE | 2022-08-10 00:10 | CPS ---
Pt set up with Sleep Lab CPAP machine.
[2022-08-10 03:20] VITALS: BP 118/48; PULSE 73; RESP 16; TEMP 36.6; O2SAT 95
[2022-08-10] MEDS: Insulin Lispro 100 UNIT/ML INSULN.PEN SC ×2 (06:08→11:26)
[2022-08-10] MEDS: Vancomycin 125 MG/5 ML Susp PO.SYRINGE PO ×2 (06:08→11:26)
[2022-08-10 06:30] LABS: Bedside Glucose 297 mg/dL (74-106)
--- NOTE | 2022-08-10 07:00 | PCM.PROGNOTE ---
Subjective Subjective Patient is doing a lot better today. He underwent a colonoscopy yesterday. He was identified as having severe marcos ulcerative colitis. Stools were checked for C. difficile and he was subsequently negative. He is on Solu-Medrol 125 mg IV every 6 hours. He is not having any problems except for elevated blood sugars. Objective Data Objective Data Vital Signs: Vital Signs Temp Pulse Resp BP Pulse Ox O2 Del Method O2 Flow Rate 98.5 F 61 18 138/62 H 92 Room Air 2 08/10/22 12:24 08/10/22 12:24 08/10/22 12:24 08/10/22 12:24 08/10/22 12:24 08/10/22 12:24 08/10/22 07:08 Oxygen Flow Rate (L/min) 2 Oxygen Delivery Method Room Air Weight: 295 lb 0.009 oz Body Mass Index (BMI) 43.5 Intake & Output: Intake and Output for Last 24 Hours 08/08/22 08/09/22 08/10/22 23:59 23:59 23:59 Intake Total 1350 / 1350 7163.33 / 7643.33 1720 / 1720 Balance 1350 / 1350 7163.33 / 7643.33 1720 / 1720 Lab / Micro Data Result Diagrams: 08/09/22 08:25 08/09/22 06:40 Labs: Laboratory Results - last 24 hr 08/09/22 17:17: POC Glucose 190 H 08/09/22 19:15: C-React Prot Ext Range 38.40 H, Amylase 36, Lipase 59 L 08/09/22 19:15: ESR 70 H 08/09/22 21:19: POC Glucose 289 H 08/10/22 06:07: POC Glucose 297 H 08/10/22 11:24: POC Glucose 256 H Micro: Microbiology 08/09/22 15:58 Stool Enteric Bacteriology - Final 08/09/22 08:15 Stool Enteric Bacteriology - Final 08/09/22 08:15 Stool C. difficile DNA Amplification - Final Radiography Diagnostic Testing: Radiology Impression Chest X-Ray 08/09/22 17:20 IMPRESSION: Scarring in the right apex and both lung bases. There is no acute pulmonary abnormality. There has been no change from the reference exam. Electronically Signed: Oscar Yadav MD at 17:48 EST , Physical Exam Const alert, oriented x3, no apparent distress and well nourished Constitutional Narrative: Elderly white male & very pleasant General Appearance: cooperative HEENT normocephalic, head/scalp atraumatic and moist oral mucous membranes Eyes PERRL, EOMs intact bilaterally and conjunctivae normal Eyes Narrative: No scleral icterus Neck no lymphadenopathy and supple Neck Narrative: Trachea midline, no thyroid enlargement Resp normal respiratory effort, no retractions, no use of accessory muscles and clear to auscultation bilaterally Resp Narrative: Diminished but clear Auscultation: Negative for crackles, rhonchi or wheezes Cardio regular rate, regular rhythm, S1 normal heart sound, S2 normal heart sound, no murmurs, no rub, no gallops and no clicks GI normal to inspection, nondistended, normoactive bowel sounds, soft to palpation and non-tender GI Narrative: Umbilical hernia Palpation: hernia Extremity Extremity Narrative: Chronic but stable bilateral lower extremity edema, 2+ pedal pulses Skin no rashes or lesions noted, no wounds, skin turgor normal, no jaundice, no petechiae and no mottling Neuro oriented x3, CN's II-XII intact bilaterally, moves all extremities and no focal motor deficits Speech: speech normal Psych affect normal Psych Narrative: Very pleasant Assessment & Plan Assessment/Plan (1) Ulcerative colitis: PLAN: Recommend 40 mg of prednisone per day. He will continue azathioprine 100 mg daily. Recommend to recheck ESR, CRP, LDH, fecal calprotectin. He can stop his vancomycin that was previously started. His hepatitis B serologies are pending. His QuantiFERON gold is pending. He will likely need a biologic for his severe colitis. Hopefully will be able to titrate up his azathioprine as an outpatient as we go forward in his treatment plan. Charges/Coding Visit Charges Inpatient E&M: 21541 Subs Hosp L2
[2022-08-10 07:08] VITALS: O2SAT 93
[2022-08-10] MEDS: Potassium Chloride Oral Tablet 20 MEQ PO (08:56)
[2022-08-10] MEDS: MESALAMINE 400 MG CAPSULE.DR 800 MG PO (08:56)
[2022-08-10] MEDS: azaTHIOprine 50 MG Tablet 100 MG PO (08:57)
[2022-08-10] MEDS: Doxazosin 1 MG Tablet 1.5 MG PO (08:57)
[2022-08-10] MEDS: Flecainide 100 MG Tablet 50 MG PO (08:57)
[2022-08-10 09:05] VITALS: BP 100/63; PULSE 68; RESP 18; TEMP 36.8; O2SAT 93
[2022-08-10] MEDS: 0.9% Saline Lock 10 ML Syringe IV (11:26)
--- NOTE | 2022-08-10 11:49 | DCINST_ITS ---
Discharge Instructions Diet Discharge Diet: - (resume home diet) Activity Discharge Activity: Return to Normal Activity Weight Bearing Status: Full weight bearing Follow Up Care Test Results: Test results from this visit will be discussed in further detail at your follow- up appointment, if applicable. Discharge Plan Admission Admit Date/Time: 08/08/22 20:07 Primary Reason for Your Visit: ulcerative colitis flare Attending Provider: Kevyn Gautam Primary Care Provider: Fransisca Wright Consulting Providers: Vita,Curtis ; Sarah Major Instructions Additional Instructions / Restrictions: Stay off Warfarin for one week, then resume Discharge Orders/Prescriptions Prescriptions: New azathioprine 50 mg Tablet 100 mg PO DAILY Qty: 60 0RF Firvanq 25 mg/mL Recon Soln 125 mg PO Q6 Qty: 280 0RF prednisone 20 mg tablet 20 mg PO DAILY Qty: 60 0RF Rx Instructions: two daily Continued metformin 500 mg tablet 500 mg PO BID furosemide 20 mg tablet 20 - 40 mg PO DAILY PRN (Reason: Edema) potassium chloride 20 MEQ tablet 20 meq PO DAILY Label Comments: supplement atorvastatin 40 MG tablet 40 mg PO QHS Label Comments: cholesterol metoprolol tartrate 100 mg tablet 50 mg PO BID fexofenadine 180 mg tablet 180 mg PO DAILY PRN PRN (Reason: Allergic Symptoms) warfarin 2.5 mg tablet 2.5 mg PO .COMPLEX Protocol: Dose Management Condition: Monday Dose/Route: 2.5 mg Instruction: 1 x 2.5 mg tablet Condition: Monday Dose/Route: 2.5 mg Instruction: 1 x 2.5 mg tablet Condition: Monday Dose/Route: 5 mg Instruction: 2 x 2.5 mg tablets Condition: Monday Dose/Route: 2.5 mg Instruction: 1 x 2.5 mg tablet Condition: Dose/Route: 2.5 mg Instruction: 1 x 2.5 mg tablet Condition: Monday Dose/Route: 2.5 mg Instruction: 1 x 2.5 mg tablet Condition: Monday Dose/Route: 2.5 mg Instruction: 1 x 2.5 mg tablet Protocol Text: Adjustment Start Date: Monday08/02/22 INR Value: 2.4 INR Date: 08/02/22 Recheck Date: 08/16/22 Rx Instructions: 2.5 mg orally 0/5 tablet (1.25 mg) on Mon, , Wed; 1 tablet all other days of the week; OR as directed (dose changes so please give 90 pills); flecainide 50 mg tablet 50 mg PO Q12H prazosin 2 mg capsule 2 mg PO BID Stiolto Respimat 2.5-2.5 mcg/actuation mist 2 puff inhalation DAILY Changed mesalamine 800 mg tablet,delayed release (DR/EC) 800 mg PO TID Qty: 1 0RF Referrals / Follow Up: Curtis Gorman DO [Med Staff - Active Staff] - See Referral Note (in two weeks) Fransisca Wright, PA [Primary Care Provider] - See Referral Note (in one week) Disposition Disposition (needs filled in before D/C Order can be placed): Home, Self Care
[2022-08-10 12:20] LABS: Bedside Glucose 256 mg/dL (74-106)
[2022-08-10 12:24] VITALS: BP 138/62; PULSE 61; RESP 18; TEMP 36.9; O2SAT 92
--- NOTE | 2022-08-10 12:27 | PCM.DC.SUM ---
Providers Date of Admission: 08/08/22 Date of Discharge: 08/10/22 Primary Care Physician: EDER Helms Consultations 08/08/22 20:30 Consult: Gastroenterology Routine Consulting Provider: VitaCurtis Reason for Consult: GIB/UC Flare EMERGENT Consult: No MD Notified: Yes Date Notified: 08/08/22 Time Notified: 20:30 Method of Notification: Verbal Reason For Visit: ULCERATIVE COLITIS FLARE Diagnosis Discharge Diagnosis (1) Ulcerative colitis: Status: Acute Code(s): K51.90 - Ulcerative colitis, unspecified, without complications Medications at Discharge Home Medications potassium chloride 20 mEq tablet,extended release(part/cryst) 20 meq PO DAILY Low potassium 09/27/15 atorvastatin 40 mg tablet 40 mg PO QHS Cholesterol 08/20/16 metformin 500 mg tablet 500 mg PO BID Diabetes 05/09/19 furosemide 20 mg tablet 20 - 40 mg PO DAILY PRN Edema 04/01/20 metoprolol tartrate 100 mg tablet 50 mg PO BID Afib 02/17/21 fexofenadine 180 mg tablet 180 mg PO DAILY PRN PRN Allergic Symptoms 01/11/22 flecainide 50 mg tablet 50 mg PO Q12H afib 08/08/22 prazosin 2 mg capsule 2 mg PO BID bp 08/08/22 tiotropium 2.5 mcg-olodaterol 2.5 mcg/actuation mist for inhalation (Stiolto Respimat) 2 puff inhalation DAILY SOB 08/08/22 warfarin 2.5 mg tablet 2.5 mg PO .COMPLEX blood thinner 08/08/22 azathioprine 50 mg tablet 100 mg PO DAILY #60 tabs 08/10/22 mesalamine 800 mg tablet,delayed release 800 mg PO TID colitis #1 TAB 08/10/22 prednisone 20 mg tablet 20 mg PO DAILY #60 tabs 08/10/22 vancomycin 25 mg/mL oral solution (Firvanq) 125 mg (5 mL) PO Q6 #280 mL 08/10/22 Weight / BMI Weight Weight: 133.81 kg Body Mass Index (BMI) 43.5 ABG / Lab / Microbiology Data Result Diagrams: 08/09/22 08:25 08/09/22 06:40 Laboratory: Laboratory Results - last 24 hr 08/09/22 17:17: POC Glucose 190 H 08/09/22 19:15: C-React Prot Ext Range 38.40 H, Amylase 36, Lipase 59 L 08/09/22 19:15: ESR 70 H 08/09/22 21:19: POC Glucose 289 H 08/10/22 06:07: POC Glucose 297 H 08/10/22 11:24: POC Glucose 256 H Microbiology: Microbiology 08/09/22 15:58 Stool Enteric Bacteriology - Final 08/09/22 08:15 Stool Enteric Bacteriology - Final 08/09/22 08:15 Stool C. difficile DNA Amplification - Final Radiography Diagnostic Testing: Radiology Impression Chest X-Ray 08/09/22 17:20 IMPRESSION: Scarring in the right apex and both lung bases. There is no acute pulmonary abnormality. There has been no change from the reference exam. Electronically Signed: Oscar Yadav MD at 17:48 EST , D/C Instructions Discharge Diet: - (resume home diet) Weight Bearing Status: Full weight bearing Meaningful Use Info Meaningful Use Diagnoses (Choose all that apply): None applicable Discharge Plan Admission Admit Date/Time: 08/08/22 20:07 Primary Reason for Your Visit: ulcerative colitis flare Attending Provider: Kevyn Gautam Primary Care Provider: Fransisca Wright Consulting Providers: Curtis Gorman ; Sarah Major Instructions Additional Instructions / Restrictions: Stay off Warfarin for one week, then resume Discharge Orders/Prescriptions Prescriptions: New azathioprine 50 mg Tablet 100 mg PO DAILY Qty: 60 0RF Firvanq 25 mg/mL Recon Soln 125 mg PO Q6 Qty: 280 0RF prednisone 20 mg tablet 20 mg PO DAILY Qty: 60 0RF Rx Instructions: two daily Continued metformin 500 mg tablet 500 mg PO BID furosemide 20 mg tablet 20 - 40 mg PO DAILY PRN (Reason: Edema) potassium chloride 20 MEQ tablet 20 meq PO DAILY Label Comments: supplement atorvastatin 40 MG tablet 40 mg PO QHS Label Comments: cholesterol metoprolol tartrate 100 mg tablet 50 mg PO BID fexofenadine 180 mg tablet 180 mg PO DAILY PRN PRN (Reason: Allergic Symptoms) warfarin 2.5 mg tablet 2.5 mg PO .COMPLEX Protocol: Dose Management Condition: Monday Dose/Route: 2.5 mg Instruction: 1 x 2.5 mg tablet Condition: Monday Dose/Route: 2.5 mg Instruction: 1 x 2.5 mg tablet Condition: Monday Dose/Route: 5 mg Instruction: 2 x 2.5 mg tablets Condition: Monday Dose/Route: 2.5 mg Instruction: 1 x 2.5 mg tablet Condition: Dose/Route: 2.5 mg Instruction: 1 x 2.5 mg tablet Condition: Monday Dose/Route: 2.5 mg Instruction: 1 x 2.5 mg tablet Condition: Monday Dose/Route: 2.5 mg Instruction: 1 x 2.5 mg tablet Protocol Text: Adjustment Start Date: Monday08/02/22 INR Value: 2.4 INR Date: 08/02/22 Recheck Date: 08/16/22 Rx Instructions: 2.5 mg orally 0/5 tablet (1.25 mg) on Mon, , ; 1 tablet all other days of the week; OR as directed (dose changes so please give 90 pills); flecainide 50 mg tablet 50 mg PO Q12H prazosin 2 mg capsule 2 mg PO BID Stiolto Respimat 2.5-2.5 mcg/actuation mist 2 puff inhalation DAILY Changed mesalamine 800 mg tablet,delayed release (DR/EC) 800 mg PO TID Qty: 1 0RF Referrals / Follow Up: Curtis Gorman DO [Med Staff - Active Staff] - See Referral Note (in two weeks) Fransisca Wright PA [Primary Care Provider] - See Referral Note (in one week) Disposition Disposition (needs filled in before D/C Order can be placed): Home, Self Care
--- NOTE | 2022-08-10 18:54 | CASEMGMT ---
Addendum entered by Jasmina Cohen 08/10/22 18:59: 1700: Call received re: Pt Link. Referral has been received. She was made aware pt has been discharged home. She states she will f/u with pt @ home. Original Note: RN CM ELECTRIC SCREW DRIVER OPERATOR CM to room to meet with patient for initial transition planning/care coordination assessment. RN ENZO introduced self and role at [facility].? Pt voices understanding and consents to assessment at this time.? Pt sitting up in recliner chair in no distress at this time.? in room visiting. Pt is A/O at this time and answers all questions appropriately.?? Care providers, pharmacy, and demographics verified/updated at this time. PCP: Kyle IVERSON Specialists: Kalina- bunk assembler: Rustam-pulmonology, Dr Major-[facility] oncology Preferred Pharmacy: [facility] Retail Insurance: [employer] Prescription Benefit: yes Living Will/HPOA: yes, Em Oshea, HPOA LNOK: , brother Living Arrangements: Patient lives with in a single story home with 1 step to enter. Patient states he is independent at home. Pt works part-time. Transportation: self, DME/HHC: Patient has raised toilet, cane, walker, grab bars, cpap, pulse ox, and home oxygen through [employer] with portability. Pt states he only wears it @ 2 l/m @ [facility]. Pt wishes to return home and states has no concerns with going home at time of discharge.? Per Dr Gautam, he plans to discharge pt home on insulin. Pt states he does not have a glucometer and has never administered insulin. Script for glucometer provided to pt. Questions answered. Nursing to provide teaching on insulin admin prior to discharge. Discussed Pt Link w/pt and he is interested. Referral placed. PLAN: ?Home Inga ALEJANDREN MYRNA GIRALDO
[2022-08-11 16:08] LABS: Anti-Centromere B Ab <0.2 AI (0.0-0.9); Anti-Chromatin <0.2 AI (0.0-0.9); Anti-Jo <0.2 AI (0.0-0.9); Anti-Scleroderma-70 AB <0.2 AI (0.0-0.9); RNP Ab <0.2 AI (0.0-0.9); SJOGREN'S Anti-SS-A test < 0.2 AI (0.0-0.9); SJOGREN'S Anti-SS-B test < 0.2 AI (0.0-0.9); Smith Ab <0.2 AI (0.0-0.9)
[2022-08-12 11:08] LABS: Cytoplasmic Ab (C-ANCA) <1:20 titer (Neg:<1:20); HEPATITIS B SURFACE AG Negative (Negative); Hep C Antibodies <0.1 s/co ratio (0.0-0.9); Hepatitis A IgM Antibody Negative (Negative); Hepatitis B Core AB IgM Negative (Negative); Immunoglobulin A 228 mg/dL (61-437); Immunoglobulin E 64 IU/mL (6-495); Immunoglobulin G 1060 mg/dL (603-1613); Immunoglobulin M 218 mg/dL (15-143); QNTFERON TB Mitogen Value > 10.00 IU/mL (.); QNTFERON TB Nil Value 0 IU/mL (.); QNTFERON TB1+ Ag Value 0.07 IU/mL (.); QNTFERON TB2+ Ag Value 0 IU/mL (.)
[2022-08-12 19:21] LABS: Anti-dsDNA Ab <1 IU/mL (0-9)
[2022-08-12 19:24] LABS: Perinuclear Ab (P-ANCA) <1:20 titer (Neg:<1:20); QNTIFERON TB Positive Criteria Negative (Negative)
== END 2022-08-10 14:00 | disposition home or self-care (01) | DRG 386 ==
LOC: ED 14:34 → MS3 18:14
PROVIDERS: Internal Medicine Gastroenterology; Admitting Provider Internal Medicine; Emergency Provider Emergency Medicine; PCP Physician Assistant; Visit Provider Internal Medicine
PROC: 0DJD8ZZ Inspection of Lower Intestinal Tract, Via Natural or Artificial Opening Endoscopic (ICD-10-PCS; CPT 45378; principal; 2022-08-09 15:55)
DX: K51.911 Ulcerative colitis, unspecified with rectal bleeding (principal); J44.9 Chronic obstructive pulmonary disease, unspecified; I13.0 Hypertensive heart and chronic kidney disease with heart failure and stage 1 through stage 4 chronic kidney disease, or unspecified chronic kidney disease; I50.32 Chronic diastolic (congestive) heart failure; K50.90 Crohn's disease, unspecified, without complications; E11.22 Type 2 diabetes mellitus with diabetic chronic kidney disease; I48.0 Paroxysmal atrial fibrillation; D68.59 Other primary thrombophilia; N18.32 Chronic kidney disease, stage 3b; D64.9 Anemia, unspecified; E78.00 Pure hypercholesterolemia, unspecified; G47.33 Obstructive sleep apnea (adult) (pediatric); K63.5 Polyp of colon; K52.9 Noninfective gastroenteritis and colitis, unspecified; Z85.118 Personal history of other malignant neoplasm of bronchus and lung; Z86.16 Personal history of COVID-19; Z79.01 Long term (current) use of 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s; Z79.84 Long term (current) use of oral hypoglycemic drugs; Z87.891 Personal history of nicotine dependence; Z79.899 Other long term (current) drug therapy
CPT/HCPCS: 45385; 45380; 45382; 36415; 71045; 74177; 80053; 80074; 82150; 82784; 82785; 82962; 83605; 83690; 83735; 84100; 84145; 85014; 85018; 85025; 85610; 85652; 86140; 86225; 86235; 86256; 86480; 87493; 87506; 88305; 94660; 96361; 96365; 96366; 96367; 96375; 96376; 99221; 99252; 99284; J7030; Q9967; A4216; G0378; G0463; J0744; J2405

== ENCOUNTER 2022-08-17 09:35 | Outpatient (RCR) | payer MEDICARE, SELFPAY ==
[2022-08-07 05:34] VITALS: BMI 44.6
[2022-08-10 14:45] LABS: INR Fingerstick 2.8; Prothrombin Time Fingerstick 32.3 SEC (11.7-14.9)
[2022-08-17 09:51] LABS: INR Fingerstick 2.8; Prothrombin Time Fingerstick 32.2 SEC (11.7-14.9)
== END 2022-08-17 10:00 | disposition home or self-care (01) ==
LOC: LAB 09:35
PROVIDERS: PCP Physician Assistant; Referring Provider Internal Medicine Cardiovascular Disease; Visit Provider Internal Medicine Cardiovascular Disease
DX: I48.0 Paroxysmal atrial fibrillation (principal); I48.92 Unspecified atrial flutter; Z79.01 Long term (current) use of 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s
CPT/HCPCS: 36416; 85610

== ENCOUNTER 2022-09-29 12:05 | Outpatient (RCR) | payer MEDICARE, SELFPAY ==
[2022-09-07 08:35] VITALS: BMI 44.6
[2022-09-07 12:10] LABS: Prothrombin Time Fingerstick 34.7 SEC (11.7-14.9)
[2022-09-29 13:23] LABS: International Normalized Ratio 2.5; Prothrombin Time (Protime)PT. 26.8 SECONDS (11.7-14.9)
[2022-09-29 13:42] LABS: Erythrocyte Sedimentation Rate 45 mm/hr (0-20)
[2022-09-29 13:45] LABS: Absolute Lymphocyte Count 2.07 X10^3/uL (0.83-4.51); Absolute Neutrophil Count 4.3 X10^3/uL (2.0-7.7); Basophil# 0.02 X10^3/uL; Basophil% 0.3 % (0-1); Eosinophil# 0.07 X10^3/uL; Hematocrit 39.7 % (40-54); Hemoglobin 12.3 g/dL (13.0-16.5); Lymphocyte # 2.07 X10^3/ul (0.83-4.51); Lymphocyte % 29.4 % (19-41); Mean Corpuscular Hgb 29.1 pg (27.0-32.0); Mean Corpuscular Volume 93.9 fL (80-94); Mean Platelet Vol. 10.3 fl (6.2-12.0); Monocyte# 0.49 X10^3/uL; NRBC Flagged by Analyzer 0 % (0-5); Neutrophil # 4.28 X10^3/uL (2.7-7.7); Neutrophil % 60.9 % (47-70); Platelet Count 176 K/mm3 (150-450); RBC Distribution Width CV 14.2 % (11.6-14.6); RBC Distribution Width SD 48.3 fl (35.1-43.9); Red Blood Count 4.23 M/mm3 (4.6-6.2)
[2022-09-29 14:01] LABS: ALB/GLOB Ratio 0.8 RATIO (0.9-2.4); AST(SGOT) 12 U/L (15-37); Alanine Aminotransfer ALT/SGPT 23 U/L (16-61); Albumin, Serum 2.8 g/dL (3.2-5.0); Alkaline Phosphatase 43 U/L (45-117); Anion Gap 9 (5-15); BUN 20 mg/dL (7-18); BUN/Creat Ratio 14.6 RATIO (10-20); CRP 9.75 mg/L (0.0-3.0); Calcium,Total 8.4 mg/dL (8.5-10.1); Chloride 108 mmol/L (98-107); Creatinine, Serum 1.37 mg/dL (0.70-1.30); EST Glomerular Filtration Rate 54 mL/min (>60); Est Glom Filt Rate - Afr Amer 65 mL/min (>60); Globulin 3.6 g/dL (2.2-4.2); Glucose 252 mg/dL (74-106); LDH 211 U/L (87-241); Potassium 3.9 mmol/L (3.5-5.1); Protein, Total 6.4 g/dL (6.4-8.2); Sodium Level 142 mmol/L (136-145)
[2022-10-01 16:09] LABS: Anti-Centromere B Ab <0.2 AI (0.0-0.9); Anti-Chromatin <0.2 AI (0.0-0.9); Anti-Jo <0.2 AI (0.0-0.9); Anti-Scleroderma-70 AB <0.2 AI (0.0-0.9); RNP Ab <0.2 AI (0.0-0.9); SJOGREN'S Anti-SS-A test < 0.2 AI (0.0-0.9); SJOGREN'S Anti-SS-B test < 0.2 AI (0.0-0.9); Smith Ab <0.2 AI (0.0-0.9)
[2022-10-02 09:15] LABS: Anti-dsDNA Ab <1 IU/mL (0-9)
[2022-10-03 16:08] LABS: Endomysial Antibody IgA Negative (Negative)
[2022-10-03 21:05] LABS: Immunoglobulin A 219 mg/dL (61-437); t-Transglutaminase IgA <2 U/mL (0-3)
[2022-10-07 00:06] LABS: Albumin 2.9 g/dL (2.9-4.4); Alpha-1-Globulins 0.2 g/dL (0.0-0.4); Alpha-2-Globulins 0.8 g/dL (0.4-1.0); Cytoplasmic Ab (C-ANCA) <1:20 titer (Neg:<1:20); Gamma Globulin 1.1 g/dL (0.4-1.8); Immunoglobulin A 211 mg/dL (61-437); Immunoglobulin E 46 IU/mL (6-495); Immunoglobulin G 779 mg/dL (603-1613); Immunoglobulin M 489 mg/dL (15-143); QNTFERON TB Mitogen Value > 10.00 IU/mL (.); QNTFERON TB Nil Value 0.52 IU/mL (.); QNTFERON TB1+ Ag Value 0.35 IU/mL (.)
[2022-10-07 08:28] LABS: Perinuclear Ab (P-ANCA) <1:20 titer (Neg:<1:20); QNTIFERON TB Positive Criteria Negative (Negative)
== END 2022-09-29 18:00 | disposition home or self-care (01) ==
LOC: LAB 12:05
PROVIDERS: Internal Medicine Gastroenterology; PCP Physician Assistant; Referring Provider Internal Medicine Cardiovascular Disease; Visit Provider Internal Medicine Cardiovascular Disease
DX: I48.0 Paroxysmal atrial fibrillation (principal); I48.92 Unspecified atrial flutter; Z79.01 Long term (current) use of 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s
CPT/HCPCS: 36415; 36416; 80053; 82784; 82785; 83516; 83615; 84165; 85025; 85610; 85652; 86140; 86225; 86235; 86255; 86256; 86334; 86480

== ENCOUNTER → 2022-10-01 | Outpatient (CLI) | payer MEDICARE, SELFPAY ==
[2022-10-05 22:58] LABS: Calprotectin, Stool 235 ug/g (0-120)
== END | disposition home or self-care (01) ==
LOC: LAB 09:54
PROVIDERS: PCP Physician Assistant; Referring Provider Internal Medicine Gastroenterology; Visit Provider Internal Medicine Gastroenterology
DX: K51.90 Ulcerative colitis, unspecified, without complications (principal)
CPT/HCPCS: 83630; 83993

== ENCOUNTER 2022-10-26 09:12 | Outpatient (RCR) | payer MEDICARE, SELFPAY ==
[2022-10-04 22:56] VITALS: BMI 44.6
[2022-10-26 09:21] LABS: Prothrombin Time Fingerstick 22.4 SEC (11.7-14.9)
== END 2022-11-04 23:03 | disposition home or self-care (01) ==
LOC: LAB 09:12
PROVIDERS: PCP Physician Assistant; Referring Provider Internal Medicine Cardiovascular Disease; Visit Provider Internal Medicine Cardiovascular Disease
DX: I48.0 Paroxysmal atrial fibrillation (principal); I48.92 Unspecified atrial flutter; Z79.01 Long term (current) use of 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s
CPT/HCPCS: 36416; 85610

== ENCOUNTER 2022-11-21 14:42 | Outpatient (RCR) | payer MEDICARE, SELFPAY ==
[2022-11-04 23:03] VITALS: BMI 44.6
[2022-11-12 11:51] LABS: Absolute Lymphocyte Count 2.11 X10^3/uL (0.83-4.51); Basophil# 0.04 X10^3/uL; Basophil% 0.6 % (0-1); Eosinophil# 0.26 X10^3/uL; Eosinophils% 3.7 % (0-5); Hematocrit 37.2 % (40-54); Lymphocyte # 2.11 X10^3/ul (0.83-4.51); Lymphocyte % 30.3 % (19-41); Mean Corp Hgb Conc 32.3 g/dL (32-36); Mean Corpuscular Hgb 30.3 pg (27.0-32.0); Mean Corpuscular Volume 93.9 fL (80-94); Monocyte# 0.54 X10^3/uL; Monocyte% 7.7 % (0-10); NRBC Flagged by Analyzer 0 % (0-5); Neutrophil # 3.98 X10^3/uL (2.7-7.7); Neutrophil % 57.1 % (47-70); Platelet Count 240 K/mm3 (150-450); RBC Distribution Width CV 15.6 % (11.6-14.6); RBC Distribution Width SD 53.1 fl (35.1-43.9); Red Blood Count 3.96 M/mm3 (4.6-6.2)
[2022-11-12 12:01] LABS: International Normalized Ratio 1.5; Prothrombin Time (Protime)PT. 17.6 SECONDS (11.7-14.9)
[2022-11-14 11:20] LABS: Absolute Lymphocyte Count 1.78 X10^3/uL (0.83-4.51); Absolute Neutrophil Count 4.5 X10^3/uL (2.0-7.7); Basophil# 0.04 X10^3/uL; Basophil% 0.6 % (0-1); Eosinophils% 4.2 % (0-5); Hematocrit 37.3 % (40-54); Hemoglobin 11.6 g/dL (13.0-16.5); Lymphocyte # 1.78 X10^3/ul (0.83-4.51); Lymphocyte % 24.8 % (19-41); Mean Corp Hgb Conc 31.1 g/dL (32-36); Mean Corpuscular Hgb 29.9 pg (27.0-32.0); Mean Corpuscular Volume 96.1 fL (80-94); Mean Platelet Vol. 9.9 fl (6.2-12.0); Monocyte# 0.52 X10^3/uL; Monocyte% 7.3 % (0-10); NRBC Flagged by Analyzer 0 % (0-5); Neutrophil # 4.49 X10^3/uL (2.7-7.7); Neutrophil % 62.5 % (47-70); Platelet Count 257 K/mm3 (150-450); RBC Distribution Width CV 15.6 % (11.6-14.6); RBC Distribution Width SD 54.6 fl (35.1-43.9); Red Blood Count 3.88 M/mm3 (4.6-6.2); White Blood Count 7.2 K/mm3 (4.4-11.0)
[2022-11-14 11:49] LABS: ALB/GLOB Ratio 0.8 RATIO (0.9-2.4); AST(SGOT) 20 U/L (15-37); Alanine Aminotransfer ALT/SGPT 17 U/L (16-61); Albumin, Serum 2.9 g/dL (3.2-5.0); Alkaline Phosphatase 61 U/L (45-117); Globulin 3.7 g/dL (2.2-4.2); Protein, Total 6.6 g/dL (6.4-8.2)
[2022-11-14 12:05] LABS: Amylase 46 U/L (25-115); Anion Gap 4 (5-15); BUN 11 mg/dL (7-18); BUN/Creat Ratio 8.2 RATIO (10-20); Calcium,Total 7.8 mg/dL (8.5-10.1); Chloride 107 mmol/L (98-107); Creatinine, Serum 1.34 mg/dL (0.70-1.30); EST Glomerular Filtration Rate 55 mL/min (>60); Est Glom Filt Rate - Afr Amer 67 mL/min (>60); Glucose 192 mg/dL (74-106); Lipase 91 U/L (73-393); Potassium 3.8 mmol/L (3.5-5.1); Sodium Level 140 mmol/L (136-145)
[2022-11-21 15:03] LABS: Absolute Lymphocyte Count 2.25 X10^3/uL (0.83-4.51); Absolute Neutrophil Count 3.8 X10^3/uL (2.0-7.7); Basophil# 0.04 X10^3/uL; Basophil% 0.6 % (0-1); Eosinophil# 0.31 X10^3/uL; Eosinophils% 4.5 % (0-5); Hematocrit 36.5 % (40-54); Hemoglobin 11.7 g/dL (13.0-16.5); Lymphocyte # 2.25 X10^3/ul (0.83-4.51); Lymphocyte % 32.8 % (19-41); Mean Corp Hgb Conc 32.1 g/dL (32-36); Mean Corpuscular Hgb 30.5 pg (27.0-32.0); Mean Corpuscular Volume 95.3 fL (80-94); Mean Platelet Vol. 9.7 fl (6.2-12.0); Monocyte# 0.47 X10^3/uL; Monocyte% 6.8 % (0-10); NRBC Flagged by Analyzer 0 % (0-5); Neutrophil # 3.78 X10^3/uL (2.7-7.7); Platelet Count 243 K/mm3 (150-450); RBC Distribution Width CV 15.7 % (11.6-14.6); RBC Distribution Width SD 54.8 fl (35.1-43.9); Red Blood Count 3.83 M/mm3 (4.6-6.2); White Blood Count 6.9 K/mm3 (4.4-11.0)
[2022-11-21 15:12] LABS: International Normalized Ratio 1.9; Prothrombin Time (Protime)PT. 21.5 SECONDS (11.7-14.9)
[2022-11-21 15:49] LABS: AST(SGOT) 20 U/L (15-37); Alanine Aminotransfer ALT/SGPT 18 U/L (16-61); Albumin, Serum 3.2 g/dL (3.2-5.0); Alkaline Phosphatase 66 U/L (45-117); Bilirubin, Direct 0.23 mg/dL (0.00-0.30); Globulin 3.9 g/dL (2.2-4.2); Protein, Total 7.1 g/dL (6.4-8.2)
== END 2022-12-04 01:29 | disposition home or self-care (01) ==
LOC: LAB 14:42
PROVIDERS: Nurse Practitioner Adult Health; PCP Physician Assistant; Referring Provider Internal Medicine Cardiovascular Disease; Visit Provider Internal Medicine Cardiovascular Disease
DX: I48.0 Paroxysmal atrial fibrillation (principal); I48.92 Unspecified atrial flutter; Z79.01 Long term (current) use of 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s; I10 Essential (primary) hypertension; K51.90 Ulcerative colitis, unspecified, without complications
CPT/HCPCS: 36415; 80053; 80076; 82150; 83690; 85025; 85610

== ENCOUNTER 2022-12-27 13:22 | Outpatient (RCR) | payer MEDICARE, SELFPAY ==
[2022-12-04 01:29] VITALS: BMI 44.6
[2022-12-05 14:21] LABS: INR Fingerstick 2.7; Prothrombin Time Fingerstick 28.9 SEC (11.7-14.9)
[2022-12-27 13:31] LABS: INR Fingerstick 2.5; Prothrombin Time Fingerstick 26.6 SEC (11.7-14.9)
== END 2023-01-04 18:00 | disposition home or self-care (01) ==
LOC: LAB 13:22
PROVIDERS: PCP Physician Assistant; Referring Provider Nurse Practitioner Family; Visit Provider Nurse Practitioner Family
DX: I48.0 Paroxysmal atrial fibrillation (principal); I48.92 Unspecified atrial flutter; Z79.01 Long term (current) use of 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s
CPT/HCPCS: 36416; 85610

== ENCOUNTER 2023-01-25 12:06 | Outpatient (RCR) | payer MEDICARE, SELFPAY ==
[2023-01-05 08:14] VITALS: BMI 44.6
[2023-01-25 12:28] LABS: INR Fingerstick 2.5; Prothrombin Time Fingerstick 27.2 SEC (11.7-14.9)
== END 2023-01-25 18:00 | disposition home or self-care (01) ==
LOC: LAB 12:06
PROVIDERS: PCP Physician Assistant; Referring Provider Nurse Practitioner Family; Visit Provider Nurse Practitioner Family
DX: I48.0 Paroxysmal atrial fibrillation (principal); Z79.01 Long term (current) use of 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s
CPT/HCPCS: 36416; 85610

== ENCOUNTER 2023-02-20 05:09 | Day surgery (SDC) | payer MEDICARE, SELFPAY ==
[2023-02-20] MEDS: Lactated Ringers 1,000 ML 15 ML IV (05:35)
[2023-02-20 06:11] VITALS: BP 146/58; PULSE 77; RESP 18; TEMP 37; O2SAT 98; BMI 44.6
--- NOTE | 2023-02-20 06:26 | HP.PCM_ITS ---
History and Physical Date of Admission: 02/20/23 77 M who presents to the office today for f/u hospitalization 08/08/22-08/10/22 for GIB/UC flare. He presented with diarrhea and rectal bleeding. At the time of admission he was taking mesalamine 1.6 g daily, which he continues on. He was diagnosed w/ UC a few years ago, no other treatments. CT scan abdomen pelvis showed left-sided colitis from the splenic flexure down to the rectum. Colonoscopy showed colitis from sigmoid to cecum; biopsies positive for diffuse moderate chronic active colitis, consistent with UC. Doing well since discharge. Gets loose stools if he snacks on peanuts, otherwise stools are usually formed. No melena or hematochezia. Occas mild discomfort LLQ. No pelvic or rectal pain. Can have burning at the anus if he eats warm foods. Now on insulin, managed by PCP Jose Wright PA-C. 08/2022 neg enteric pathogens, neg C diff 09/2022 positive lactoferrin, positive calprotectin, hgb 12.3, ESR 45, CRP 9.75, IBD lab panel suggestive of UC, TPMT activity normal, TPMT genotype--expected to have normal activity, positive M-spike (he has appt with heme-onc on 10/31/22), elevated atypical p-ANCA, negative Quantiferon TB, neg arnulfo 08/09/22 Colonoscopy Impression: ? - Preparation of the colon was poor. ? - One 5 mm polyp in the sigmoid colon, removed ? with a cold snare. Resected and retrieved. ? - Colitis. Inflammation was found from the ? sigmoid colon to the cecum. This was severe, ? worsened compared to previous examinations. ? Biopsied. Recommendation: ? - Discharge patient to home. ? - Resume previous diet. ? - Continue present medications. ? - Await pathology results.Stool cultures and C. difficile was taken as ? it looks like pseudomembranes ? - Vancomycin 125 mg p.o. every 6 hours x 14 days ? - If patient goes home he will need to be on ? prednisone 60 mg a day ? - Azathioprine 100 mg p.o. daily to titrate up ? to 1.5 mg a kilogram of body weight ? - QuantiFERON gold, chest x-ray, hepatitis B ? surface antibody and antigen testing in ? anticipation for escalation of IBD treatment ? - Amylase and lipase ? - Repeat colonoscopy in 6 months for ? surveillance. MICROSCOPIC DIAGNOSIS A. Sigmoid polyp, polypectomy: Diffuse moderate chronic active colitis. See microscopic description and comment. B. Colon, random biopsy: Diffuse moderate chronic active colitis. See microscopic description and comment. A & B. The findings are consistent with inflammatory bowel disease (ulcerative colitis). A & B. The specimen shows fragments of colonic mucosa with moderate acute and chronic inflammatory cell infiltrate in the lamina propria, cryptitis, crypt abscesses and granular distortion. No evidence of granuloma or dysplasia in the specimen ROS Const Constitutional: Positive for fatigue, weakness and weight change ENT ENT: No difficulty swallowing Gastro GI: No abdominal pain, belching, bloating, change in bowel habits, change in stool character, coffee ground emesis, constipation, cramping, diarrhea, heartburn, difficulty swallowing, feeling full early, excessive flatus, incontinent of stools, Vomiting blood/hematemesis, Blood in stool, loose stools, Black,tarry stools, nausea/dyspepsia, pain with swallowing, vomiting or other Musc Musculoskeletal: Positive for joint pain, back pain, muscle weakness, stiffness and Arthritis Skin Skin: No yellowing of the eye or itchy eyes Neuro Neurology: Positive for weakness Psych Psychiatric: No anxiety and No depression Endo Endocrine: Positive for fatigue and weight change Aller/Imm Allergy/Immunologic: No itchy eyes Alejandro/Lymp Hematologic/Lymphatic: No easy bleeding or easy bruising Exam Const General: cooperative and no acute distress Nutritional Appearance: obese Orientation: alert, awake and oriented x3 Eyes Sclera: sclerae normal Resp Effort & Inspection: normal respiratory effort GI Inspection: obesity Quality Reporting Tobacco Screening ([facility] 138) Smoking Status: Former smoker Assessment and Plan Assessment and Plan (1) Ulcerative colitis: Status: Chronic Plan: UC with pancolitis Discussed his results--biopsies, blood tests, stool tests Still has inflammation per blood and stool tests on azathioprine 100 mg daily Increase azathioprine from 100 mg to 150 mg daily, check labs in a week Schedule repeat colonoscopy with f/u 2 wks later Orders: Orders Amylase Today K51.90 - Ulcerative colitis, unspecified, without complications Lipase Today K51.90 - Ulcerative colitis, unspecified, without complications CBC W/Diff, Automated Today I10 - Essential (primary) hypertension, K51.90 - Ulcerative colitis, unspecified, without complications Comprehensive Metabolic Profil Today K51.90 - Ulcerative colitis, unspecified, without complications Medications: Changed From azathioprine 100 mg (2 x 50 mg) PO DAILY 60 tabs 1RF To azathioprine 150 mg (3 x 50 mg) PO DAILY 270 tabs 1RF Discontinued prednisone Discontinued Reason: Order Completed take 20mg for two weeks, then 10mg for two weeks, then 5mg for two weeks. If GI symptoms return stop reducing and call the office. 49 tabs 0RF I have examined the patient and the H&P has been reviewed. There are no clinical changes since date of exam.
[2023-02-20 06:27] LABS: Bedside Glucose 157 mg/dL (74-106)
--- NOTE | 2023-02-20 06:30 | COLBX_PTH ---
PATIENT: AVELINA BULL LOC: [facility] U#:[id number] AGE/SX: 77/M ROOM: RE02/20/[address]: Dr. Curtis Gorman DO : 1945 BED: DIS: 02/20/2023 SPEC #: [id number] RECD: 02/20/23 07:56 STATUS: BLAZE REJarret #: [id number] HERIBERTO: 02/20/23 06:[address]: Curtis Gorman DEPT: SURGICAL PATHOLOGY RECD BY: Ema Perez ENTERED: 02/20/23 08:56 SP TYPE: COLON BX OTHR DR: EDER Helms Tissues: A - Cecum, NOS B - Ascending colon C - COLON BIOPSY D - Transverse colon E - Descending colon F - Sigmoid colon biopsy G - Rectum, NOS Procedures: Surgery Specimen Level IV HEADER OPERATION: Colonoscopy (MAC), biopsy PRE-OP DIAGNOSIS: Ulcerative colitis TISSUE SUBMITTED: A - Cecum biopsy, B - Ascending biopsy, C - Hepatic flexure polyp biopsy, D - Transverse biopsy, E - Descending polyp biopsy, F - Sigmoid biopsy, G - Rectum biopsy MICROSCOPIC DIAGNOSIS A. Cecum, biopsy: Chronic active colitis with mild activity. No evidence of dysplasia. See comment. B. Ascending colon, biopsy: Chronic active colitis pattern of injury with minimal activity. C. Colonic polyp at hepatic flexure, biopsy: Hyperplastic polyp. D. Transverse colon, biopsy: Mild glandular distortion. No evidence of active colitis. E. Descending colon polyp, biopsy: Polypoid fragments of benign colonic mucosa. See comment. F. Sigmoid colon, biopsy: Chronic colitis pattern of injury with minimal activity. No evidence of dysplasia. G. Rectum, biopsy: Minimal glandular distortion. No evidence of inflammation. AM:avery 02/21/2023 COMMENT A. There is focal cryptitis and crypt abscess formation with mild glandular distortion. Fissuring ulcers are not identified. E. Neither hyperplastic nor adenomatous change is identified. Clinical correlation is suggested. MICROSCOPIC DESCRIPTION Slides are reviewed. GROSS DESCRIPTION A - Received in fixative is one container labeled with the patient's name and designated cecum biopsy. The specimen consists of multiple irregular fragments of light treviño soft tissue that in aggregate measure 1.5 x 0.3 x 0.1 cm. The specimen is totally submitted in one cassette. B - Received in fixative is one container labeled with the patient's name and designated ascending biopsy. The specimen consists of multiple irregular fragments of light treviño soft tissue that in aggregate measure 1.5 x 0.3 x 0.1 cm. The specimen is totally submitted in one cassette. C - Received in fixative is one container labeled with the patient's name and designated hepatic flexure polyp biopsy. The specimen consists of one irregular fragment of light treviño soft tissue that measures 0.3 x 0.3 x 0.1 cm. The specimen is totally submitted in one cassette. D - Received in fixative is one container labeled with the patient's name and designated transverse biopsy. The specimen consists of multiple irregular fragments of light treviño soft tissue that in aggregate measure 1.5 x 0.3 x 0.1 cm. The specimen is totally submitted in one cassette. E - Received in fixative is one container labeled with the patient's name and designated descending polyp biopsy. The specimen consists of multiple irregular fragments of light treviño soft tissue that in aggregate measure 1.0 x 0.5 x 0.1 cm. The specimen is totally submitted in one cassette. F - Received in fixative is one container labeled with the patient's name and designated sigmoid biopsy. The specimen consists of multiple irregular fragments of light treviño soft tissue that in aggregate measure 1.5 x 0.7 x 0.1 cm. The specimen is totally submitted in one cassette. G - Received in fixative is one container labeled with the patient's name and designated rectum biopsy. The specimen consists of one irregular fragment of light treviño soft tissue that measures 0.3 x 0.3 x 0.1 cm. The specimen is totally submitted in one cassette. / SJ:rg 02/20/2023 TC:2 CPT: 62294 x7
--- NOTE | 2023-02-20 07:04 | OP.COLON_ITS ---
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 Refer to note in patient chart for documentation of history and physical. Last Colonoscopy: within the past 3 years. Complications: No immediate complications. Procedure: Pre-Anesthesia Assessment: - Prior to the procedure, a History and Physical was performed, and patient medications and allergies were reviewed. The risks and benefits of the procedure and the sedation options and risks were discussed with the patient. All questions were answered and informed consent was obtained. Patient identification and proposed procedure were verified by the physician in the pre-procedure area. Mental Status Examination: alert and oriented. Airway Examination: normal oropharyngeal airway and neck mobility. Respiratory Examination: clear to auscultation. CV Examination: normal. Prophylactic Antibiotics: The patient does not require prophylactic antibiotics. Prior Anticoagulants: The patient has taken no previous 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 or antiplatelet agents. ASA Grade Assessment: II - A patient with mild systemic disease. After reviewing the risks and benefits, the patient was deemed in satisfactory condition to undergo the procedure. The anesthesia plan was to use monitored anesthesia care (MAC). Immediately prior to administration of medications, the patient was re-assessed for adequacy to receive sedatives. The heart rate, respiratory rate, oxygen saturations, blood pressure, adequacy of pulmonary ventilation, and response to care were monitored throughout the procedure. The physical status of the patient was re-assessed after the procedure. After I obtained informed consent, the scope was passed under direct vision. Throughout the procedure, the patient's blood pressure, pulse, and oxygen saturations were monitored continuously. The colonoscope was introduced through the anus and advanced to the terminal ileum. The ileocecal valve, appendiceal orifice, and rectum were photographed. Scope In: 6:40:00 AM Scope Withdrawal Time 0 hours 14 minutes 35 seconds Scope Out: 6:58:49 AM Total Procedure Duration Time 0 hours 18 minutes 49 seconds Findings: The perianal and digital rectal examinations were normal. Multiple small and large-mouthed diverticula were found in the recto-sigmoid colon and sigmoid colon. Inflammation was found in a continuous and circumferential pattern from the rectum to the cecum. This was graded as Monaco Score 2 (moderate, with marked erythema, absent vascular pattern, friability, erosions), and when compared to the previous examination, the findings are unchanged. Biopsies were taken with a cold forceps for histology. Verification of patient identification for the specimen was done. Estimated blood loss was minimal. Inflammation, mild in severity and characterized by congestion (edema) was found in the mid ileum. A 5 mm polyp was found in the hepatic flexure. The polyp was sessile. The polyp was removed with a cold snare. Resection and retrieval were complete. Verification of patient identification for the specimen was done. Estimated blood loss was minimal. Impression: - Diverticulosis in the recto-sigmoid colon and in the sigmoid colon. - Moderately active (Monaco Score 2) ulcerative colitis, unchanged since the last examination. Biopsied. - Ileitis. - One 5 mm polyp at the hepatic flexure, removed with a cold snare. Resected and retrieved. Recommendation: - Repeat colonoscopy in 1 month for surveillance. - Continue present medications. -Vancomyocin 125mg PO four times a day x 10 days Procedure Code(s): --- Professional --- 89692, Colonoscopy, flexible; with removal of tumor(s), polyp(s), or other lesion(s) by snare technique 23852, 59, Colonoscopy, flexible; with biopsy, single or multiple CPT copyright 2017 [employer]. All rights reserved. The codes documented in this report are preliminary and upon sales assistant entertainment and media review may be revised to meet current compliance requirements. Curtis Gorman DO 02/20/2023 7:03:49 AM This report has been signed electronically. Number of Addenda: 0 Note Initiated On: 02/20/2023 6:23 AM
[2023-02-20 07:05] VITALS: BP 104/42; BP 146/58; PULSE 66; RESP 16; TEMP 36.7; O2SAT 93
--- NOTE | 2023-02-20 07:05 | OP.CCLET_ITS ---
02/20/2023 Fransisca Wright Re : Colonoscopy procedure for Oliverio Oshea Dear Kyle This procedure was performed on Monday, February 20, 2023. My impressions and recommendations are as follows: Impressions : - Diverticulosis in the recto-sigmoid colon and in the sigmoid colon. - Moderately active (Monaco Score 2) ulcerative colitis, unchanged since the last examination. Biopsied. - Ileitis. - One 5 mm polyp at the hepatic flexure, removed with a cold snare. Resected and retrieved. Recommendations : - Repeat colonoscopy in 1 month for surveillance. - Continue present medications. -Vancomyocin 125mg PO four times a day x 10 days My findings are described in the full procedure note, which is enclosed. If I can be of further assistance, please feel free to contact me at . Sincerely, Curtis Gorman, 02/20/2023 7:03:49 AM This report has been signed electronically.
[2023-02-20 07:10] VITALS: BP 108/78; BP 146/58; PULSE 64; RESP 16; O2SAT 92
[2023-02-20 07:15] VITALS: BP 121/48; BP 146/58; PULSE 68; RESP 16; O2SAT 92
[2023-02-20 07:20] VITALS: BP 141/56; BP 146/58; PULSE 65; RESP 16; TEMP 36.7; O2SAT 94
[2023-02-20 07:38] VITALS: BP 146/58
== END 2023-02-20 07:48 | disposition home or self-care (01) ==
LOC: EN 05:11 → AC 05:12
PROVIDERS: PCP Physician Assistant; Referring Provider Physician Assistant; Visit Provider Internal Medicine Gastroenterology
PROC: 0DJD8ZZ Inspection of Lower Intestinal Tract, Via Natural or Artificial Opening Endoscopic (ICD-10-PCS; CPT 45378; principal; 2023-02-20 06:25)
DX: K51.90 Ulcerative colitis, unspecified, without complications (principal); Z87.891 Personal history of nicotine dependence; K63.5 Polyp of colon; K57.30 Diverticulosis of large intestine without perforation or abscess without bleeding; R53.83 Other fatigue
CPT/HCPCS: 45380; 45385; 82962; 88305; J7120; J2405

== ENCOUNTER 2023-03-03 11:27 | Outpatient (RCR) | payer MEDICARE, SELFPAY ==
[2023-02-04 01:50] VITALS: BMI 44.6
[2023-02-15 12:09] LABS: INR Fingerstick 1.9; Prothrombin Time Fingerstick 21.1 SEC (11.7-14.9)
[2023-03-03 11:39] LABS: INR Fingerstick 1.8; Prothrombin Time Fingerstick 19.8 SEC (11.7-14.9)
== END 2023-03-06 18:00 | disposition home or self-care (01) ==
LOC: LAB 11:27
PROVIDERS: PCP Physician Assistant; Referring Provider Nurse Practitioner Family; Visit Provider Nurse Practitioner Family
DX: I48.0 Paroxysmal atrial fibrillation (principal); I48.92 Unspecified atrial flutter; Z79.01 Long term (current) use of 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s
CPT/HCPCS: 36416; 85610

== ENCOUNTER 2023-03-13 11:58 | Outpatient (CLI) | payer MEDICARE, SELFPAY ==
[2023-03-13 12:08] VITALS: BP 142/65; PULSE 58; RESP 18; TEMP 36.5; O2SAT 95; BMI 44.3
[2023-03-13] MEDS: 0.9% NaCl Peripheral Flush Adult/Peds IV (12:26)
[2023-03-13] MEDS: 0.9% NaCl IVPB Med Flush (250 mL) 15 ML IV (12:26)
[2023-03-13 13:23] VITALS: BP 135/59; PULSE 55; RESP 16; TEMP 36.4
== END 2023-03-13 11:59 | disposition home or self-care (01) ==
LOC: MEDOUTP 11:58
PROVIDERS: PCP Physician Assistant; Referring Provider Internal Medicine Gastroenterology; Visit Provider Internal Medicine Gastroenterology
DX: K51.90 Ulcerative colitis, unspecified, without complications (principal)
CPT/HCPCS: 96360; J7050; A4216; J3380

== ENCOUNTER 2023-03-17 11:43 | Outpatient (RCR) | payer MEDICARE, SELFPAY ==
[2023-03-07 01:52] VITALS: BMI 44.6
[2023-03-17 11:53] LABS: Prothrombin Time Fingerstick 21.7 SEC (11.7-14.9)
== END 2023-03-17 18:00 | disposition home or self-care (01) ==
LOC: LAB 11:43
PROVIDERS: PCP Physician Assistant; Referring Provider Nurse Practitioner Family; Visit Provider Nurse Practitioner Family
DX: I48.0 Paroxysmal atrial fibrillation (principal); Z79.01 Long term (current) use of 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s
CPT/HCPCS: 36416; 85610

== ENCOUNTER 2023-03-27 13:43 | Outpatient (CLI) | payer MEDICARE, SELFPAY ==
[2023-03-27 13:48] VITALS: BP 159/52; PULSE 58; RESP 20; TEMP 36.6; O2SAT 98; BMI 44.3
[2023-03-27] MEDS: 0.9% NaCl IVPB Med Flush (250 mL) 15 ML IV (14:51)
[2023-03-27] MEDS: 0.9% NaCl Peripheral Flush Adult/Peds IV (14:51)
[2023-03-27 15:37] VITALS: BP 138/47; PULSE 55; RESP 16; TEMP 36.2
== END 2023-03-27 13:44 | disposition home or self-care (01) ==
LOC: MEDOUTP 13:43
PROVIDERS: PCP Physician Assistant; Referring Provider Internal Medicine Gastroenterology; Visit Provider Internal Medicine Gastroenterology
DX: K51.90 Ulcerative colitis, unspecified, without complications (principal)
CPT/HCPCS: 96365; J7050; A4216; J3380

== ENCOUNTER → 2023-04-12 | Outpatient (CLI) | payer MEDICARE, SELFPAY ==
[2023-04-12 17:28] LABS: Erythrocyte Sedimentation Rate 38 mm/hr (0-20)
== END | disposition home or self-care (01) ==
LOC: LAB 15:45
PROVIDERS: PCP Physician Assistant; Referring Provider Internal Medicine Gastroenterology; Visit Provider Internal Medicine Gastroenterology
DX: K52.9 Noninfective gastroenteritis and colitis, unspecified (principal)
CPT/HCPCS: 36415; 85652; 86140

== ENCOUNTER 2023-04-24 13:35 | Outpatient (CLI) | payer MEDICARE, SELFPAY ==
[2023-04-24 14:12] VITALS: BP 137/43; PULSE 66; RESP 16; TEMP 36.3; O2SAT 91; BMI 44.3
[2023-04-24] MEDS: 0.9% NaCl IVPB Med Flush (250 mL) 15 ML IV (14:12)
[2023-04-24] MEDS: Vedolizumab 300 MG in 0.9% Normal Saline (250mL Bag) 250 ML 500 MG IV (14:12)
[2023-04-24 14:55] VITALS: BP 129/49; PULSE 67; RESP 18; TEMP 36.4; O2SAT 92
== END 2023-04-24 13:36 | disposition home or self-care (01) ==
LOC: MEDOUTP 13:35
PROVIDERS: PCP Physician Assistant; Referring Provider Internal Medicine Gastroenterology; Visit Provider Internal Medicine Gastroenterology
DX: K51.90 Ulcerative colitis, unspecified, without complications (principal)
CPT/HCPCS: 96365; J7050; A4216; J3380

== ENCOUNTER 2023-05-01 11:37 | Outpatient (RCR) | payer MEDICARE, SELFPAY ==
[2023-04-06 23:43] VITALS: BMI 44.6
[2023-04-11 12:25] LABS: INR Fingerstick 1.7; Prothrombin Time Fingerstick 18.7 SEC (11.7-14.9)
[2023-04-18 13:28] LABS: Prothrombin Time Fingerstick 32.2 SEC (11.7-14.9)
[2023-05-01 11:44] LABS: INR Fingerstick 3.7; Prothrombin Time Fingerstick 39.5 SEC (11.7-14.9)
== END 2023-05-01 18:00 | disposition home or self-care (01) ==
LOC: LAB 11:37
PROVIDERS: PCP Physician Assistant; Referring Provider Nurse Practitioner Family; Visit Provider Nurse Practitioner Family
DX: I48.0 Paroxysmal atrial fibrillation (principal); Z79.01 Long term (current) use of 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s
CPT/HCPCS: 36416; 85610

== ENCOUNTER 2023-05-23 11:27 | Outpatient (RCR) | payer MEDICARE, SELFPAY ==
[2023-05-07 04:44] VITALS: BMI 44.6
[2023-05-09 11:46] LABS: INR Fingerstick 2.7; Prothrombin Time Fingerstick 28.9 SEC (11.7-14.9)
[2023-05-23 11:35] LABS: INR Fingerstick 2.8; Prothrombin Time Fingerstick 29.8 SEC (11.7-14.9)
== END 2023-05-23 18:00 | disposition home or self-care (01) ==
LOC: LAB 11:27
PROVIDERS: PCP Physician Assistant; Referring Provider Nurse Practitioner Family; Visit Provider Nurse Practitioner Family
DX: I48.0 Paroxysmal atrial fibrillation (principal); I48.92 Unspecified atrial flutter; Z79.01 Long term (current) use of 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s
CPT/HCPCS: 36416; 85610

== ENCOUNTER 2023-06-12 11:49 | Outpatient (RCR) | payer MEDICARE, SELFPAY ==
[2023-06-06 22:49] VITALS: BMI 44.6
[2023-06-12 12:04] LABS: INR Fingerstick 2.7; Prothrombin Time Fingerstick 28.6 SEC (11.7-14.9)
== END 2023-07-06 18:00 | disposition home or self-care (01) ==
LOC: LAB 11:49
PROVIDERS: PCP Physician Assistant; Referring Provider Nurse Practitioner Family; Visit Provider Nurse Practitioner Family
DX: I48.0 Paroxysmal atrial fibrillation (principal); Z79.01 Long term (current) use of 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s
CPT/HCPCS: 36416; 85610

== ENCOUNTER 2023-06-19 13:05 | Outpatient (CLI) | payer MEDICARE, SELFPAY ==
[2023-06-19] MEDS: 0.9% NaCl Peripheral Flush Adult/Peds IV (14:08)
[2023-06-19] MEDS: Vedolizumab 300 MG in 0.9% Normal Saline (250mL Bag) 250 ML 500 MG IV (14:08)
[2023-06-19] MEDS: 0.9% NaCl IVPB Med Flush (250 mL) 15 ML IV (14:08)
[2023-06-19 14:09] VITALS: BP 148/64; PULSE 56; RESP 18; TEMP 36.5; O2SAT 93; BMI 44.3
[2023-06-19 14:49] VITALS: BP 151/65; PULSE 55; RESP 16; TEMP 36.4; O2SAT 93
== END 2023-06-19 13:06 | disposition home or self-care (01) ==
LOC: MEDOUTP 13:05
PROVIDERS: PCP Physician Assistant; Referring Provider Internal Medicine Gastroenterology; Visit Provider Internal Medicine Gastroenterology
DX: K51.90 Ulcerative colitis, unspecified, without complications (principal)
CPT/HCPCS: 96365; J7050; A4216; J3380

== ENCOUNTER 2023-07-13 13:26 | Outpatient (RCR) | payer MEDICARE, SELFPAY ==
[2023-07-07 04:11] VITALS: BMI 44.6
[2023-07-13 13:59] LABS: INR Fingerstick 2.7
== END 2023-08-06 18:00 | disposition home or self-care (01) ==
LOC: LAB 13:26
PROVIDERS: PCP Physician Assistant; Referring Provider Nurse Practitioner Family; Visit Provider Nurse Practitioner Family
DX: I48.0 Paroxysmal atrial fibrillation (principal); Z79.01 Long term (current) use of 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s
CPT/HCPCS: 36416; 85610

== ENCOUNTER 2023-08-09 12:41 | Outpatient (RCR) | payer MEDICARE, SELFPAY ==
[2023-08-06 22:03] VITALS: BMI 44.6
[2023-08-09 12:55] LABS: INR Fingerstick 2.4; Prothrombin Time Fingerstick 26.1 SEC (11.7-14.9)
== END 2023-08-09 18:00 | disposition home or self-care (01) ==
LOC: LAB 12:41
PROVIDERS: PCP Physician Assistant; Referring Provider Nurse Practitioner Family; Visit Provider Nurse Practitioner Family
DX: I48.0 Paroxysmal atrial fibrillation (principal); Z79.01 Long term (current) use of 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s
CPT/HCPCS: 36416; 85610

== ENCOUNTER 2023-08-14 12:43 | Outpatient (CLI) | payer MEDICARE, SELFPAY ==
[2023-08-14 13:00] VITALS: BP 132/44; PULSE 70; RESP 18; TEMP 36.3; O2SAT 92; BMI 44.3
[2023-08-14] MEDS: 0.9% NaCl Peripheral Flush Adult/Peds IV ×2 (13:04→13:33)
--- OUTSIDE RECORDS SUMMARY | 2023-08-14 13:11 | XMS RPT_ITS | CCD ---
Author Name Unknown Address [address] [place] [address] Organization [facility] Care Team Providers Care Floor Sweeper Name Role Phone JOHN REYES Unavailable Unavailable JOHN REYES Unavailable Unavailable RICKY ARGUELLO Unavailable Unavailable Fransisca Combs Primary Care Provider Unavaila ble Fransisca Combs PA-C Primary Care Provider [phone] Pedrito VILLEDA MD, Ellen Unavailable Fransisca Combs PA-C Primary Care Provider [phone] Pedrito VILLEDA MD, Ellen Unavailable Fransisca Combs PA-C Primary Care Provider Fransisca COMBS Primary Care Unavailable BARBARA JOHNSON Attending Unavailable VIKTORIA AZUL Referring Unavailable Fransisca COMBS Primary Care Unavailable MARTHA MARCUS Admitting Unavailable MARTHA MARCUS Attending Unavailable Fransisca Combs PA-C Primary Care Provider [phone] Pedrito VILLEDA MD, Ellen Unavailable Fransisca COMBS Primary Care Unavailable ELLEN MAJOR MD Referring Unavailable ELLEN MAJOR MD Attending Unavailable Fransisca COMBS Primary Care Unavailable Fransisca COMBS Attending Unavailable Fransisca COMBS Primary Care Unavailable COMBSFransisca Referring Unavailable COMBSFransisca Primary Care Unavailable ELLEN MAJOR MD Referring Unavailable COMBSFransisca Primary Care Unavailable COMBS M DARLINE Referring Unavailable COMBS, M DARLINE Primary Care Unavailable COMBS, M DARLINE Attending Unavailable KYLE M DARLINE Primary Care Unavailable ELLEN MAJOR MD Referring Unavailable COMBSFransisca Primary Care Unavailable COMBSFransisca Referring Unavailable COMBS, M DARLINE Primary Care Unavailable COMBS, M DARLINE Primary Care Unavailable ELLEN MAJOR MD Referring Unavailable ELLEN MAJOR MD Attending Unavailable COMBS, Fransisca GREGORIO Primary Care Unavailable COMBS, M DARLINE Referring Unavailable COMBS, M DARLINE Primary Care Unavailable COMBS, M DARLINE Attending Unavailable COMBS, M DARLINE Primary Care Unavailable CORTNEY RESENDIZ Attending Unavailable COMBS, M DARLINE Primary Care Unavailable COMBS, M DARLINE Referring Unavailable TESTRAJIMBO ALEJANDRE Attending Unavailable COMBS, M DARLINE Primary Care Unavailable TESTRAKEELDEREW Referring Unavailable TESTRAKE, JIMBO Attending Unavailable COMBS, M DARLINE Primary Care Unavailable COMBS, M DARLNIE Referring Unavailable COMBS, M DARLINE Attending Unavailable COMBS, M DARLINE Primary Care Unavailable OCMBS, M DARLINE Referring Unavailable COMBS, M DARLINE Primary Care Unavailable ELLEN MAJOR MD Referring Unavailable ELLEN MAJOR MD Attending Unavailable COMBS, Fransisca DARLINE Primary Care Unavailable ELLEN MAJOR MD Referring Unavailable Allergies Allergy Classification Reported Allergen(s) Allergy Type Date of Onset Reaction(s) Facility (20 sources) amLODIPine; Translations: [AMLODIPINE] Drug Allergy 5 Rash [facility] Repository (20 sources) azithromycin; Translations: [AZITHROMYCIN] Drug Allergy 5 Diarrhea [facility] Repository (20 sources) Penicillins; Translations: [PENICILLINS] Propensity to adverse reactions (disorder) 5 Hives, [facility] Repository (3 sources) celecoxib Drug Allergy 1 [facility] Medications Current Medications Medication Drug Class(es) Dates Sig (Normalized) Sig (Original) benoxinate hydrochloride 4 mg/ml / fluorescein sodium 2.5 mg/ml ophthalmic solution (1 source) Diagnostic Dye Start: 01-26-2022 End: 01-27-2022 fluorescein-benox inate 0.25-0.4 % 1 Drop (FLURESS) diazePAM 10 mg oral tablet (1 source) Benzodiazepine Start: 05-20-2022 End: 05-20-2022 take 1 tablet by mouth once diazePAM (VALIUM) 10 mg tablet Indications: Gross hematuria Take 1 tablet by mouth one time only for [address] Scan 1 tablet 0 05/20/2022 05/20/2022 Active Completed/Discontinued Medications Medication Drug Class(es) Dates Sig (Normalized) Sig (Original) atorvastatin 40 mg oral tablet (20 sources) HMG-CoA Reductase Inhibitor Start: 08-02-2021 End: 08-22-2022 take 1 tablet by mouth once daily atorvastatin (LIPITOR) 40 mg tablet Indications: Hyperlipidemia LDL goal Take 1 tablet by mouth once daily. 90 tablet 3 08/22/2022 Active Problems Active Problems Problem Classification Problem Date Documented Da te Episodic/Chronic Acquired foot deformities (1 source) Hammer toe; Translations: [Other hammer toe(s) (acquired), left foot] 06-16-2023 Chronic Anxiety disorders (1 source) Anxiety; Translations: [Other specified anxiety disorders] Chronic Asthma (1 source) Unspecified asthma with (acute) exacerbation; Translations: [Asthma with COPD with exacerbation (HCC)] Onset: 08-19-2022 Chronic Cancer of bronchus; lung (20 sources) Non-small cell carcinoma of lung, TNM stage 1; Translations: [Malignant neoplasm of unspecified part of right bronchus or lung] Onset: 02-12-2016 08-02-2021 Chronic Cardiac and circulatory congenital anomalies (20 sources) Patent foramen ovale; Translations: [Atrial septal defect] Onset: 08-02-2021 08-02-2021 Chronic Cardiac dysrhythmias (20 sources) Paroxysmal atrial fibrillation; Translations: [Paroxysmal atrial fibrillation] Onset: 03-16-2017 Chronic Cataract (7 sources) Bilateral cataracts; Translations: [Unspecified cataract] Onset: 03-15-2022 Chronic Chronic kidney disease (20 sources) Chronic kidney disease stage 3; Translations: [Chronic renal insufficiency, stage III (moderate)] Onset: 01-15-2015 01-15-2015 Chronic Chronic obstructive pulmonary disease and bronchiectasis (20 sources) Acute exacerbation of chronic obstructive airways disease with asthma; Translations: [Chronic obstructive pulmonary disease with (acute) exacerbation] Onset: 10-06-2015 Chronic Congestive heart failure; nonhypertensive (20 sources) Chronic diastolic heart failure; Translations: [Chronic diastolic (congestive) heart failure] Onset: 04-01-2019 Chronic Diabetes mellitus with complications (20 sources) Type 2 diabetes mellitus; Translations: [Type 2 diabetes mellitus with diabetic chronic kidney disease] Onset: 04-27-2017 Chronic Diabetes mellitus without complication (1 source) Diabetes mellitus type 2 without retinopathy; Translations: [Type 2 diabetes mellitus without complications] 02-14-2023 Chronic Diabetes mellitus without complication (1 source) Diabetes mellitus without complication; Translations: [Type 2 diabetes mellitus with stage 3a chronic kidney disease, without long-term current use of insulin (HCC)] Onset: 08-17-2022 Disorders of lipid metabolism (20 sources) Hyperlipidemia; Translations: [Hyperlipidemia, unspecified] Onset: 02-23-2016 Chronic Essential hypertension (20 sources) Essential hypertension; Translations: [Essential (primary) hypertension] Onset: 02-01-2021 Chronic Fluid and electrolyte disorders (1 source) Hypokalemia; Translations: [Hypokalemia] Episodic Gastrointestinal hemorrhage (1 source) Rectal hemorrhage; Translations: [Hemorrhage of anus and rectum] Episodic Genitourinary symptoms and ill-defined conditions (4 sources) Ricky hematuria; Translations: [Gross hematuria] Episodic Hyperplasia of prostate (1 source) Benign prostatic hyperplasia; Translations: [Benign prostatic hyperplasia without lower urinary tract symptoms] Chronic Mycoses (1 source) Onychomycosis; Translations: [Tinea unguium] 06-16-2023 Episodic Neoplasms of unspecified nature or uncertain behavior (16 sources) Monoclonal gammopathy (clinical); Translations: [Monoclonal gammopathy] Onset: 11-06-2022 11-06-2022 Chronic Other aftercare (1 source) Post-discharge follow-up; Translations: [Encounter for follow-up examination after completed treatment for conditions other than malignant neoplasm] Episodic Other aftercare (3 sources) Radiotherapy follow-up; Translations: [Encounter for follow-up examination after completed treatment for conditions other than malignant neoplasm] Episodic Other aftercare (1 source) Long-term current use of 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; Translations: [termination clerk (current) use of 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s] Episodic Other and unspecified benign neoplasm (1 source) Benign neoplasm of skin of lower limb; Translations: [Melanocytic nevi of left lower limb, including hip] 06-16-2023 Episodic Other connective tissue disease (3 sources) Pain of right lower leg; Translations: [Pain in right lower leg] Episodic Other connective tissue disease (1 source) Swelling of limb; Translations: [Other specified soft tissue disorders] Episodic Other connective tissue disease (1 source) Pain of toe of left foot; Translations: [Pain in left toe(s)] 06-16-2023 Episodic Other connective tissue disease (1 source) Pain of toe of right foot; Translations: [Pain in right toe(s)] 06-16-2023 Episodic Other hereditary and degenerative nervous system conditions (20 sources) Essential tremor; Translations: [Essential tremor] Onset: 09-20-2012 09-20-2012 Chronic Other hereditary and degenerative nervous system conditions (1 source) Essential tremor; Translations: [Benign essential tremor] Onset: 09-20-2012 Chronic Other lower respiratory disease (5 sources) Nodule of lung; Translations: [Solitary pulmonary nodule] Episodic Other lower respiratory disease (1 source) Multiple nodules of lung; Translations: [Other nonspecific abnormal finding of lung field] Episodic Other male genital disorders (1 source) Phimosis; Translations: [Phimosis] Episodic Other nutritional; endocrine; and metabolic disorders (20 sources) Body mass index 40+ - severely obese; Translations: [Morbid (severe) obesity due to excess calories] Onset: 01-02-2018 01-02-2018 Chronic Other nutritional; endocrine; and metabolic disorders (20 sources) Severe obesity; Translations: [Morbid (severe) obesity due to excess calories] Onset: 01-02-2018 08-17-2022 Chronic Other nutritional; endocrine; and metabolic disorders (1 source) Morbid (severe) obesity due to excess calories; Translations: [Class 3 severe obesity due to excess calories with serious comorbidity and body mass index (BMI) of 40.0 to 44.9 in adult (HCC)] Onset: 08-17-2022 Chronic Other nutritional; endocrine; and metabolic disorders (1 source) Body mass index (BMI) 40.0-44.9, adult; Translations: [Class 3 severe obesity due to excess calories with serious comorbidity and body mass index (BMI) of 40.0 to 44.9 in adult (HCC)] Onset: 08-17-2022 Chronic Other screening for suspected conditions (not mental disorders or infectious disease) (1 source) Serum creatinine raised; Translations: [Other specified abnormal findings of blood chemistry] Episodic Regional enteritis and ulcerative colitis (20 sources) Ulcerative colitis; Translations: [Ulcerative colitis, unspecified, without complications] Onset: 06-24-2016 06-24-2016 Chronic Residual codes; unclassified (20 sources) Obstructive sleep apnea syndrome; Translations: [Obstructive sleep apnea (adult) (pediatric)] Onset: 08-02-2021 08-02-2021 Chronic Residual codes; unclassified (20 sources) Desaturation of blood; Translations: [Idiopathic sleep related nonobstructive alveolar hypoventilation] Onset: 02-25-2022 02-25-2022 Chronic Residual codes; unclassified (1 source) Idiopathic sleep related nonobstructive alveolar hypoventilation; Translations: [Nocturnal oxygen desaturation] Onset: 02-25-2022 Chronic Residual codes; unclassified (1 source) Obstructive sleep apnea (adult) (pediatric); Translations: [SILVER (obstructive sleep apnea)] Onset: 08-02-2021 Chronic Respiratory failure; insufficiency; arrest (adult) (20 sources) Chronic hypoxemic respiratory failure; Translations: [Chronic respiratory failure with hypoxia] Onset: 01-20-2022 Chronic Unclassified (1 source) Unknown / UNK(Unknown) Onset: 03-16-2017 Unclassified (1 source) Cystoscopy-1 Onset: 06-08-2022 Unclassified (1 source) PFO (patent foramen ovale); Translations: [PFO (patent foramen ovale)] Onset: 08-02-2021 Unclassified (1 source) Chronic renal impairment, stage 3a (HCC); Translations: [Chronic renal impairment, stage 3a (HCC)] Onset: 08-17-2022 Past or Other Problems Problem Classification Problem Date Documented Da te Episodic/Chronic Administrative/social admission (20 sources) Patient encounter status; Translations: [Persons encountering health services in other specified circumstances] Onset: 11-05-2021 11-05-2021 Episodic Cardiac dysrhythmias (20 sources) Tachycardia; Translations: [Tachycardia, unspecified] Onset: 02-25-2019 02-25-2019 Episodic Neoplasms of unspecified nature or uncertain behavior (6 sources) Neoplasm of lung ; Translations: [Neoplasm of unspecified behavior of respiratory system] Onset: 08-22-2022 Episodic Other aftercare (1 source) Encounter for follow-up examination after completed treatment for conditions other than malignant neoplasm; Translations: [Hospital discharge follow-up] Onset: 08-19-2022 Episodic Other connective tissue disease (2 sources) Pain in right lower leg; Translations: [Pain of right lower leg] Onset: 11-01-2022 Episodic Other connective tissue disease (2 sources) Other specified soft tissue disorders; Translations: [Swelling of limb] Onset: 11-01-2022 Episodic Other infections; including parasitic (20 sources) Personal history of other infectious and parasitic diseases; Translations: [History of COVID-19] Onset: 05-01-2022 08-17-2022 Episodic Other lower respiratory disease (20 sources) Dyspnea; Translations: [Shortness of breath] Onset: 02-25-2019 Episodic Other lower respiratory disease (1 source) Other forms of dyspnea; Translations: [Exertional dyspnea] Onset: 08-19-2022 Episodic Screening and history of mental health and substance abuse codes (20 sources) Tobacco use and exposure - finding; Translations: [Personal history of nicotine dependence] Onset: 01-30-2014 01-30-2014 Episodic Viral infection (10 sources) Disease caused by 2019-nCoV; Translations: [COVID-19] Onset: 05-01-2022 Episodic Results Test Name Value Interpretation Reference Range Facil ity Vital Signs Date Time Vital Sign Value Performing Clinician Facility 02-02-2023 13:47-0400 Body weight 136.99 kg NA Combs PA-C Work Phone: [facility] 02-02-2023 13:47-0400 Diastolic blood pressure 64 mm[Hg] NA Combs PA-C Work Phone: [facility] 02-02-2023 13:47-0400 Heart rate 61 /min NA Combs PA-C Work Phone: [facility] 02-02-2023 13:47-0400 Respiratory rate 16 /min NA Combs PA-C Work Phone: [facility] 02-02-2023 13:47-0400 SaO2% (BldA) [Mass fraction] 96 % NA Combs PA-C Work Phone: [facility] 02-02-2023 13:47-0400 Systolic blood pressure 116 mm[Hg] NA Combs PA-C Work Phone: [facility] 11-17-2022 13:00-0400 Body weight 141.07 kg NA Combs PA-C Work Phone: [facility] 11-17-2022 13:00-0400 Diastolic blood pressure 58 mm[Hg] NA Combs PA-C Work Phone: [facility] 11-17-2022 13:00-0400 Heart rate 65 /min NA Combs PA-C Work Phone: [facility] 11-17-2022 13:00-0400 Respiratory rate 24 /min NA Combs PA-C Work Phone: [facility] 11-17-2022 13:00-0400 SaO2% (BldA) [Mass fraction] 97 % NA Combs PA-C Work Phone: [facility] 11-17-2022 13:00-0400 Systolic blood pressure 116 mm[Hg] NA Combs PA-C Work Phone: [facility] 11-01-2022 13:42-0400 Body temperature 98.8 [degF] NA Combs PA-C Work Phone: [facility] 11-01-2022 13:42-0400 Body weight 141.07 kg NA Combs PA-C Work Phone: [facility] 11-01-2022 13:42-0400 Diastolic blood pressure 60 mm[Hg] NA Combs PA-C Work Phone: [facility] 11-01-2022 13:42-0400 Heart rate 73 /min NA Combs PA-C Work Phone: [facility] 11-01-2022 13:42-0400 Respiratory rate 18 /min NA Combs PA-C Work Phone: [facility] 11-01-2022 13:42-0400 SaO2% (BldA) [Mass fraction] 95 % NA Combs PA-C Work Phone: [facility] 11-01-2022 13:42-0400 Systolic blood pressure 114 mm[Hg] NA Combs PA-C Work Phone: [facility] 08-08-2022 12:28-0500 Body temperature 98.01 [degF] Mariajose Spaulding PRENATAL GENETIC COUNSELOR.ALLERGY SPECIALIST Work Phone: [facility] 08-08-2022 12:28-0500 Body weight 134.17 kg Mariajose Spaulding PRENATAL GENETIC COUNSELOR.ALLERGY SPECIALIST Work Phone: [facility] 08-08-2022 12:28-0500 Diastolic blood pressure 52 mm[Hg] Mariajose Spaulding PRENATAL GENETIC COUNSELOR.ALLERGY SPECIALIST Work Phone: [facility] 08-08-2022 12:28-0500 Heart rate 67 /min Mariajose Spaulding PRENATAL GENETIC COUNSELOR.ALLERGY SPECIALIST Work Phone: [facility] 08-08-2022 12:28-0500 Respiratory rate 21 /min Mariajose Spaulding PRENATAL GENETIC COUNSELOR.ALLERGY SPECIALIST Work Phone: [facility] 08-08-2022 12:28-0500 SaO2% (BldA) [Mass fraction] 96 % Mariajose Spaulding PRENATAL GENETIC COUNSELOR.ALLERGY SPECIALIST Work Phone: [facility] 08-08-2022 12:28-0500 Systolic blood pressure 110 mm[Hg] Mariajose Spaulding PRENATAL GENETIC COUNSELOR.ALLERGY SPECIALIST Work Phone: [facility] 05-20-2022 09:20-0400 Body height 175.3 cm Viktoria Azul PA-C Work Phone: [facility] 05-20-2022 09:20-0400 Body temperature 97.3 [degF] Viktoria Azul PA-C Work Phone: [facility] 05-20-2022 09:20-0400 Body weight 135.17 kg Viktoria Azul PA-C Work Phone: [facility] 05-20-2022 09:20-0400 Diastolic blood pressure 66 mm[Hg] Viktoria Azul PA-C Work Phone: [facility] 05-20-2022 09:20-0400 Heart rate 92 /min Viktoria Azul PA-C Work Phone: [facility] 05-20-2022 09:20-0400 Respiratory rate 18 /min Viktoria Azul PA-C Work Phone: [facility] 05-20-2022 09:20-0400 SaO2% (BldA) [Mass fraction] 95 % Viktoria GAINES-C Work Phone: [facility] 05-20-2022 09:20-0400 Systolic blood pressure 144 mm[Hg] Viktoria Azul PA-C Work Phone: [facility] 05-16-2022 10:00-0400 Body temperature 98.71 [degF] Fahad Baldoleherson PRENATAL GENETIC COUNSELOR.ALLERGY SPECIALIST Work Phone: [facility] 05-16-2022 10:00-0400 Body weight 134.72 kg Fahad South PRENATAL GENETIC COUNSELOR.ALLERGY SPECIALIST Work Phone: [facility] 05-16-2022 10:00-0400 Diastolic blood pressure 62 mm[Hg] Fahad Blandleherson PRENATAL GENETIC COUNSELOR.ALLERGY SPECIALIST Work Phone: [facility] 05-16-2022 10:00-0400 Heart rate 88 /min Fahad South PRENATAL GENETIC COUNSELOR.ALLERGY SPECIALIST Work Phone: [facility] 05-16-2022 10:00-0400 Respiratory rate 18 /min Fahad Baldoleherson PRENATAL GENETIC COUNSELOR.ALLERGY SPECIALIST Work Phone: [facility] 05-16-2022 10:00-0400 SaO2% (BldA) [Mass fraction] 95 % Fahad South PRENATAL GENETIC COUNSELOR.ALLERGY SPECIALIST Work Phone: [facility] 05-16-2022 10:00-0400 Systolic blood pressure 122 mm[Hg] Fahad Blandleherson PRENATAL GENETIC COUNSELOR.ALLERGY SPECIALIST Work Phone: [facility] 05-11-2022 13:03-0400 Body weight 133.36 kg Lydia Gonzalez PRENATAL GENETIC COUNSELOR.ALLERGY SPECIALIST Work Phone: [facility] 05-11-2022 13:03-0400 Diastolic blood pressure 82 mm[Hg] Lydia Haagen PRENATAL GENETIC COUNSELOR.ALLERGY SPECIALIST Work Phone: [facility] 05-11-2022 13:03-0400 Heart rate 49 /min Lydia Grayagen PRENATAL GENETIC COUNSELOR.ALLERGY SPECIALIST Work Phone: [facility] 05-11-2022 13:03-0400 Respiratory rate 18 /min Lydia Gonzalez PRENATAL GENETIC COUNSELOR.ALLERGY SPECIALIST Work Phone: [facility] 05-11-2022 13:03-0400 SaO2% (BldA) [Mass fraction] 97 % Lydia Gonzalez PRENATAL GENETIC COUNSELOR.ALLERGY SPECIALIST Work Phone: [facility] 05-11-2022 13:03-0400 Systolic blood pressure 138 mm[Hg] Lydia Gonzalez PRENATAL GENETIC COUNSELOR.ALLERGY SPECIALIST Work Phone: [facility] 03-15-2022 10:40-0400 Heart rate 52 /min Martha Macrus MD Work Phone: [facility] 03-15-2022 10:40-0400 Respiratory rate 14 /min Martha Marcus MD Work Phone: [facility] 03-15-2022 10:40-0400 SaO2% (BldA) [Mass fraction] 94 % Martha Marcus MD Work Phone: [facility] 03-15-2022 10:35-0400 Diastolic blood pressure 57 mm[Hg] Martha Marcus MD Work Phone: [facility] 03-15-2022 10:35-0400 Systolic blood pressure 141 mm[Hg] Martha Marcus MD Work Phone: [facility] 03-15-2022 10:15-0400 Body temperature 97.59 [degF] Martha Marcus MD Work Phone: [facility] 02-14-2022 10:54-0400 Body weight 136.99 kg NA Combs PA-C Work Phone: [facility] 02-14-2022 10:54-0400 Diastolic blood pressure 60 mm[Hg] NA Combs PA-C Work Phone: [facility] 02-14-2022 10:54-0400 Heart rate 63 /min NA Combs PA-C Work Phone: [facility] 02-14-2022 10:54-0400 Respiratory rate 16 /min NA Combs PA-C Work Phone: [facility] 02-14-2022 10:54-0400 SaO2% (BldA) [Mass fraction] 93 % NA Combs PA-C Work Phone: [facility] 02-14-2022 10:54-0400 Systolic blood pressure 128 mm[Hg] NA Combs PA-C Work Phone: [facility] 01-20-2022 14:01-0400 Body weight 135.63 kg NA Combs PA-C Work Phone: [facility] 01-20-2022 14:01-0400 Diastolic blood pressure 58 mm[Hg] NA Combs PA-C Work Phone: [facility] 01-20-2022 14:01-0400 Heart rate 56 /min NA Combs PA-C Work Phone: [facility] 01-20-2022 14:01-0400 SaO2% (BldA) [Mass fraction] 94 % NA Combs PA-C Work Phone: [facility] 01-20-2022 14:01-0400 Systolic blood pressure 128 mm[Hg] NA Combs PA-C Work Phone: [facility] 11-12-2021 15:28-0400 Body weight 132 kg NA Combs PA-C Work Phone: [facility] 11-12-2021 15:28-0400 Diastolic blood pressure 68 mm[Hg] NA Combs PA-C Work Phone: [facility] 11-12-2021 15:28-0400 Heart rate 80 /min NA Combs PA-C Work Phone: [facility] 11-12-2021 15:28-0400 SaO2% (BldA) [Mass fraction] 93 % NA Combs PA-C Work Phone: [facility] 11-12-2021 15:28-0400 Systolic blood pressure 130 mm[Hg] NA Combs PA-C Work Phone: [facility] 03-29-2021 13:00-0400 Diastolic blood pressure 53 mm[Hg] Elmer Romero MD Work Phone: [facility] Work Phone: 03-29-2021 13:00-0400 Heart rate 58 /min Elmer Romero MD Work Phone: [facility] Work Phone: 03-29-2021 13:00-0400 Respiratory rate 18 /min Elmer Romero MD Work Phone: [facility] Work Phone: 03-29-2021 13:00-0400 SaO2% (BldA) [Mass fraction] 93 % Elmer Romero MD Work Phone: [facility] Work Phone: 03-29-2021 13:00-0400 Systolic blood pressure 121 mm[Hg] Elmer Romero MD Work Phone: [facility] Work Phone: 03-29-2021 12:32-0400 Body temperature 97.11 [degF] Elmer Romero MD Work Phone: [facility] Work Phone: 03-29-2021 09:19-0400 Body height 175.3 cm Elmer Romero MD Work Phone: [facility] Work Phone: 03-29-2021 09:19-0400 Body mass index (BMI) [Ratio] 43.56 kg/m2 Elmer Romero MD Work Phone: [facility] Work Phone: 03-29-2021 09:19-0400 Body weight 133.81 kg Elmer Romero MD Work Phone: [facility] Work Phone: Encounters Encounter Date Encounter Type Care Provider Facility Start: 06-20-2023 Malinda beard PA-C Work Phone: [facility] Procedures Date Procedure Procedure Detail Performing Clinician Start: 05-30-2023 Ct thorax w/o contra st material Ellen Major MD Work Phone: Start: 11-23-2022 Ct thorax w/o contra st material Ellen Major MD Work Phone: Start: 08-22-2022 Ct thorax w/o contra st material Ellen Major MD Work Phone: Start: 05-20-2022 Urnls dip stick/tabl et rgnt auto w/o microscopy Viktoria Azul PA-C Work Phone: Start: 05-16-2022 Urnls dip stick/tabl et rgnt auto w/o microscopy Fahad South APRN.CNP Work Phone: Start: 03-15-2022 Gluc bld gluc mntr d ev cleared fda spec home use Martha Marcus MD Work Phone: Start: 03-15-2022 End: 03-15-2022 Oph bmtry prtl coher intrfrmtry io lens pwr carolynn Martha Marcus MD Work Phone: Start: 03-15-2022 End: 03-15-2022 Xcapsl ctrc rmvl insj io lens prosth w/o ecp Martha Marcus MD Work Phone: Start: 03-15-2022 Gluc bld gluc mntr d ev cleared fda spec home use Martha Marcus MD Work Phone: Start: 02-14-2022 Ct thorax w/o contra st material Ellen Major MD Work Phone: Start: 02-14-2022 Adult depression scr eening assessment SONI Combs PA-C Work Phone: Start: 01-26-2022 IOL BIOMETRY W/ IOL CALC OU (BOTH EYES) Martha Marcus MD Work Phone: Start: 01-26-2022 End: 01-26-2022 Computerized ophthalmic imaging retina Martha Marcus MD Work Phone: Start: 03-29-2021 Gluc bld gluc mntr d ev cleared fda spec home use Elmer Romero MD Work Phone: Start: 03-29-2021 Ecg routine ecg w/le ast 12 lds w/i&r Oliverio Amanda MD Work Phone: Start: 03-25-2021 SPIROMETRY WITH DIFF USION CAPACITY Deena Camara MD Work Phone: Start: 03-25-2021 Ct thorax w/o contra st material Elmer Romero MD Work Phone: Start: 03-01-2021 Colonoscopy NA Kyle BENITO Work Phone: Start: 06-27-2018 Adult depression scr eening assessment NA Kyle BENITO Work Phone: Plan of Treatment Date Care Activity Detail Author Start: 03-01-2031 Screening for malign ant neoplasm of colon Colon cancer screen colonoscopy [facility] Work Phone: Start: 03-01-2024 Colonoscopy COLONOSCOPY [facility] Start: 03-01-2024 COLORECTAL CANCER SCREENING COLORECTAL CANCER SCREENING [facility] Start: 02-15-2024 Hepatitis C antibody , confirmatory test DILATED RETINAL EXAM [facility] Start: 02-03-2024 3 comp foot exam completed DIABETIC FOOT EXAM [facility] Start: 02-03-2024 ANNUAL PCP TEAM TAXATION CONSULTANT JUAN DISEASE VISIT ANNUAL PCP TEAM CHRONIC DISEASE VISIT [facility] Start: 02-03-2024 BP CONTROLLED (<130/80) BP CONTROLLE D (<130/80) [facility] Start: 01-21-2024 HEMOGLOBIN/HEMATOCRIT HEMOGLOBIN/HEM ATOCRIT [facility] Start: 01-21-2024 Hepatitis B surface antibody level LDL CHOLESTEROL [facility] Start: 01-21-2024 SERUM CREATININE SERUM CREATININE Cl [facility] Start: 11-18-2023 ANNUAL PCP TEAM TAXATION CONSULTANT JUAN DISEASE VISIT ANNUAL PCP TEAM CHRONIC DISEASE VISIT [facility] Start: 11-18-2023 BP CONTROLLED (<130/80) BP CONTROLLE D (<130/80) [facility] Start: 11-18-2023 Urine microalbumin profile [facility] Immunizations Immunization Date Immunization Notes Care Provider Delonte jones 06-07-2021 influenza (aIIV4) vaccine, age 65+ yr, quadrivalent, PF (FLUAD QUADRIVALENT) NA Combs PA-C Work Phone: [facility] 06-07-2021 influenza, high dose seasonal, preservative-free NA Combs PA-C Work Phone: [facility] 06-07-2021 influenza virus vacc ine, unspecified formulation Ct (I-Stat) Work Phone: [facility] 05-05-2020 zoster vaccine recombinant NA Combs PA-C Work Phone: [facility] 04-01-2020 influenza, high dose seasonal, preservative-free NA Combs PA-C Work Phone: [facility] 04-01-2020 influenza, injectabl e, quadrivalent, preservative free NA Combs PA-C Work Phone: [facility] 02-13-2020 zoster vaccine recombinant NA Combs PA-C Work Phone: [facility] 11-21-2019 zoster vaccine recombinant NA Combs PA-C Work Phone: [facility] 03-19-2019 influenza, high dose seasonal, preservative-free NA Combs PA-C Work Phone: [facility] 04-30-2018 influenza, high dose seasonal, preservative-free NA Combs PA-C Work Phone: [facility] 05-07-2017 influenza, seasonal, injectable NA Combs PA-C Work Phone: [facility] 05-07-2017 influenza, seasonal, injectable, preservative free NA Combs PA-C Work Phone: [facility] 04-27-2017 influenza, high dose seasonal, preservative-free NA Combs PA-C Work Phone: [facility] 08-21-2016 influenza, injectabl e, quadrivalent, contains preservative NA Combs PA-C Work Phone: [facility] 08-21-2016 influenza, seasonal, injectable NA Combs PA-C Work Phone: [facility] 08-21-2016 influenza, seasonal, injectable, preservative free NA Combs PA-C Work Phone: [facility] 02-23-2016 pneumococcal conjuga te vaccine, 13 valent NA Combs PA-C Work Phone: [facility] 05-21-2015 influenza, seasonal, injectable NA Combs PA-C Work Phone: [facility] 05-21-2015 influenza, seasonal, injectable, preservative free NA Combs PA-C Work Phone: [facility] 10-23-2012 zoster vaccine, live NA Jean on PA-C Work Phone: [facility] 09-20-2012 pneumococcal polysaccharide vaccine, 23 valent NA Combs PA-C Work Phone: [facility] 02-16-2009 tetanus toxoid, redu claire diphtheria toxoid, and acellular pertussis vaccine, adsorbed NA Combs PA-C Work Phone: [facility] Work Phone: 06-16-2008 influenza virus vacc ine, unspecified formulation NA Combs PA-C Work Phone: [facility] Work Phone: 03-31-2006 diphtheria, tetanus toxoids and acellular pertussis vaccine NA Combs PA-C Work Phone: [facility] Work Phone: Payers Date Payer Category Payer Medicare AETNA MEDICARE A ETNA MEDICARE-ADVANTAGE PPO [id number] 2021-Present [address] [place] [phone] Medicare [id number] 2020 Medicare AETNA MEDICARE A ETNA MEDICARE PPO [id number] 2020-Present [phone] [address] [place] [address] PPO [id number] 2020 Medicare AETNA MEDICARE A ETNA MEDICARE PPO [id number] 2020-Present [phone] [address] [place] [address] PPO [id number] 2020 Medicare [id number] Unknown [id number] Social History Date Type Detail Facility Start: 03-12-2021 End: 05-11-2022 Tobacco smoking status NHIS Former smoker [facility] Start: 1967 End: 2016 History of tobacco use Current smoker [facility] Start: 1967 End: 2016 History of tobacco use Cigarette Smoker [facility] Start: 03-12-2021 End: 02-02-2023 Cigarettes smoked current (pack per day) - Reported [facility] Start: 03-12-2021 End: 05-11-2022 Tobacco use and exposure Never used [facility] Start: 03-12-2021 End: 03-29-2021 Alcohol intake Ex-drinker (finding) [facility] Work Phone: Start: 1945 Sex Assigned At Not on file [facility] Work Phone: Start: 01-10-2022 End: 06-08-2022 Exposure to SARS-CoV-2 (event) Not sure [facility] Start: 11-12-2021 End: 06-16-2023 Alcohol intake Current non-drinker of alcohol (finding) [facility] Start: 12-23-2014 History SDOH Alcohol Comment ocas [facility] Start: 02-06-2022 End: 02-16-2022 Exposure to SARS-CoV-2 (event) Unable to assess [facility] Start: 02-14-2022 End: 02-02-2023 Tobacco use panel [facility] Adult Depression Screening Assessment 0 [facility] Medical Equipment Procedure Code Equipment Code Equipment Origin al Text Equipment Identifier Dates Lens Acrysof Ultrasert +18 Diopter Acrylic Iol 1 Piece Foldable Uv Blue - [id number] Start: 03-15-2022 Start: 08-22-2022 Clinical Notes 03-01-2021 to 06-20-2023 Telephone Encounter - Edita Biggs Ma - 06/20/2023 1:30 PM ESTTelephone Encounter - Trisha Muniz - 06/20/2023 9:46 AM ESTTestJimbo rashid - 06/16/2023 1:15 PM ESTPatient Instructions Note Date & Type Note Facility 06-20-2023 Miscellaneous Notes Patient has been identified by name and date of : Yes Requested Prescriptions Pending Prescriptions Disp Refills empagliflozin (JARDIANCE) 10 mg tablet 30 tablet 5 Sig: Take 1 tablet by mouth daily with breakfast. metFORMIN (GLUCOPHAGE) 500 mg tablet 180 tablet 3 Sig: Take 1 tablet by mouth two times a day with meals. SIMA: 02/02/23 NOV: 08/08/23 RX INSTRUCTIONS: Patient aware RX will be sent to pharmacy. No need to notify patient. Edita Biggs Ma Patient has been identified by name and date of : Yes Requested Prescriptions Pending Prescriptions Disp Refills empagliflozin (JARDIANCE) 10 mg tablet 30 tablet 5 Sig: Take 1 tablet by mouth daily with breakfast. metFORMIN (GLUCOPHAGE) 500 mg tablet 180 tablet 3 Sig: Take 1 tablet by mouth two times a day with meals. RX INSTRUCTIONS: Patient aware RX will be sent to pharmacy. No need to notify patient. Trisha Stokes documented in this encounter [facility] 06-16-2023 Note HNO ID: [id number] Author: Jimbo Marina Service: ? Author Type: Physician Type: Progress Notes Filed: 06/16/2023 8:57 PM Note Text: Last time saw ulices combs: August 2022 Subjective: Patient presents to clinic c/o painful toenails. They state that the nails are especially painful with shoe gear and pressure. Patient states that nails 1-5 b/l are painful. Patient admits to being diabetic. No other pedal complaints at this time. Patient states no change in medications or medical history since last visit. Objective: Patient presents to clinic ambulating in [facility] Vasc: DP and PT pulses are faintly palpable bilateral. CFT is less than 5 seconds bilateral. Skin temperature is warm to cool proximal to distal bilateral. There is mild edema or varicosities noted. Neuro: Protective sensation is intact to the foot and toes when tested with the 5.07 SWM bilateral. Vibratory sensation is decreased at the hallux IPJ bilateral. The hallux is downgoing bilateral. Derm: Nails 1-5 b/l arepainful, discolored-yellow, thick, crumbly, dystrophic and with subungal debris. Skin is of normal turgor, texture and hair growth is present bilateral. Small raised lesion resembling nevus to left 1st ray. There are no hyperkeratosis, ulcerations, scars, verruca or other lesions noted. Ortho: Muscle strength is 5/5 for all pedal groups tested. Ankle joint DF is full with the knee extended with no pain or crepitus noted. 1st MPJ ROM is full bilateral. Lesser hammertoes are present to b/l feet Assessment: (E08.41) Diabetic mononeuropathy associated with diabetes mellitus due to underlying condition (HCC) (primary encounter diagnosis) (B35.1) Onychomycosis (M79.675) Pain in toe of left foot (M79.674) Pain in toe of right foot (M20.42) Hammertoe of left foot (D22.72) Nevus of left foot Plan: Patient was seen and evaluated. Nails 1-5 bilateral were debrided in length and thickness. Patient was instructed on the continued importance of diabetic foot care along with proper diet and keeping their blood sugar under control to prevent complications. Discussed the importance of daily foot inspection, avoiding barefoot walking. If any issues arise, call immediately. Discussed small nevus of left first ray. No change per patient. Discussed biopsy vs referral to derm. He has elected to monitor. Discussed hammertoe of lesser toes. Continue with wider shoes and/or padding. Patient is to RTC in 3-4 months. Jimbo Marina DPM [facility] 06-16-2023 Note HNO ID: [id number] Author: Yu Wright RN Service: ? Author Type: Registered Nurse Type: Progress Notes Filed: 06/16/2023 8:57 PM Note Text: AMB ROOMING INTAKE FLOWSHEET DATA Patient presents with: Left Foot - Nail Check Right Foot - Nail Check Yu Wright RN [facility] 06-16-2023 History of Presen t illness Narrative Last time saw ulices combs: August 2022 Subjective: Patient presents to clinic c/o painful toenails. They state that the nails are especially painful with shoe gear and pressure. Patient states that nails 1-5 b/l are painful. Patient admits to being diabetic. No other pedal complaints at this time. Patient states no change in medications or medical history since last visit. Objective: [facility]: DP and PT pulses are faintly palpable bilateral. CFT is less than 5 seconds bilateral. Skin temperature is warm to cool proximal to distal bilateral. There is mild edema or varicosities noted. Neuro: Protective sensation is intact to the foot and toes when tested with the 5.07 SWM bilateral. Vibratory sensation is decreased at the hallux IPJ bilateral. The hallux is downgoing bilateral. Derm: Nails 1-5 b/l arepainful, discolored-yellow, thick, crumbly, dystrophic and with subungal debris. Skin is of normal turgor, texture and hair growth is present bilateral. Small raised lesion resembling nevus to left 1st ray. There are no hyperkeratosis, ulcerations, scars, verruca or other lesions noted. Ortho: Muscle strength is 5/5 for all pedal groups tested. Ankle joint DF is full with the knee extended with no pain or crepitus noted. 1st MPJ ROM is full bilateral. Lesser hammertoes are present to b/l feet Assessment: (E08.41) Diabetic mononeuropathy associated with diabetes mellitus due to underlying condition (HCC) (primary encounter diagnosis) (B35.1) Onychomycosis (M79.675) Pain in toe of left foot (M79.674) Pain in toe of right foot (M20.42) Hammertoe of left foot (D22.72) Nevus of left foot Plan: Patient was seen and evaluated. Nails 1-5 bilateral were debrided in length and thickness. Patient was instructed on the continued importance of diabetic foot care along with proper diet and keeping their blood sugar under control to prevent complications. Discussed the importance of daily foot inspection, avoiding barefoot walking. If any issues arise, call immediately. Discussed small nevus of left first ray. No change per patient. Discussed biopsy vs referral to derm. He has elected to monitor. Discussed hammertoe of lesser toes. Continue with wider shoes and/or padding. Patient is to RTC in 3-4 months. Jimbo Marina DPM AMB ROOMING INTAKE FLOWSHEET DATA Patient presents with: Left Foot - Nail Check Right Foot - Nail Check Yu Wright RN documented in this encounter [facility] 06-16-2023 Instructions Jimbo Marina - 06/16/2023 1:15 PM EST Diabetes Foot Care Instructions When you have diabetes, proper foot care is very important. Poor foot care may lead to amputation of a foot or leg. As a person with diabetes, you are more vulnerable to foot problems, because diabetes can damage your nerves and reduce blood flow to your feet. Here are some diabetes foot care tips to follow: Wash and Dry Your Feet Daily Use mild soaps Use warm water Pat your skin dry; do not rub. Thoroughly dry your feet. After washing, use lotion on your feet to prevent cracking. Do not put lotion between your toes. Examine Your Feet Each Day Check the tops and bottoms of your feet. Have someone else look at your feet if you cannot see them. Check for dry, cracked skin. Look for blisters, cuts, scratches, or other sores. Check for redness, increased warmth, or tenderness when touching any area of your feet. Check for ingrown toenails, corns, and calluses. If you get a blister or sore from your shoes, do not pop it. Apply a bandage and wear a different pair of shoes. Take Care of Your Toenails Cut toenails after bathing, when they are soft. Cut toenails straight across and smooth with a nail file. Avoid cutting into the corners of toes. Do not cut cuticles. If you have neuropathy (or decreased sensation in your feet) a harness inspector should always cut your toenails. Be Careful When Exercising Walk and exercise in comfortable shoes. Do not exercise when you have open sores on your feet. Protect Your Feet With Shoes and Socks Never go barefoot. Always protect your feet by wearing shoes or hard-soled slippers or footwear. Avoid shoes with high heels and pointed toes. Avoid shoes that expose your toes or heels (such as open-toed shoes or sandals). These types of shoes increase your risk for injury and potential infections. Try on new footwear with the type of socks you usually wear. Do not wear new shoes for more than an hour at a time. Change your socks daily. Look and feel inside your shoes before putting them on to make sure there are no foreign objects or rough areas. Avoid tight socks. Wear natural-fiber socks (cotton, wool, or a cotton-wool blend). Wear special shoes if your health care provider recommends them. Wear shoes/boots that will protect your feet from various weather conditions (cold, moisture, etc.). Make sure your shoes fit properly. If you have neuropathy (nerve damage), you may not notice that your shoes are too tight. Perform the footwear test described below. Footwear Test Use this simple test to see if your shoes fit correctly: Stand on a piece of paper. (Make sure you are standing and not sitting, because your foot changes shape when you stand.) Trace the outline of your foot. Trace the outline of your shoe. Compare the tracings: Is the shoe too narrow? Is your foot crammed into the shoe? The shoe should be at least 1/2 inch longer than your longest toe and as wide as your foot. Proper Shoe Choices The following types of shoes are best for people with diabetes Closed toes and heels Leather uppers without a seam inside At least 1/2 inch extra space at the end of your longest toe Inside of shoe should be soft with no rough areas Outer sole should be made of stiff material Shoes should be at least as wide as your feet Tips for Foot Care in Diabetes Don't wait to treat a minor foot problem if you have diabetes. Follow your health care provider's guidelines and first aid guidelines. Report foot injuries and infections to your health care provider immediately. Check water temperature with your elbow, not your foot. Do not use a heating pad on your feet. Do not cross your legs. Do not self-treat your corns, calluses, or other foot problems. Go to your health care provider or harness inspector to treat these conditions. documented in this encounter [facility] 06-05-2023 Note HNO ID: [id number] Author: Ellen Major MD, MD Service: ? Author Type: Physician Type: Progress Notes Filed: 06/08/2023 10:14 AM Note Text: AMBULATORY TELEPHONE VISIT Oliverio Oshea has consented to this telephone encounter. Persons Present: patient Chief Complaint/Reason: Follow-up after radiation treatment. 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 He is doing well without any specific new complaints. He denies any chest pain. Baseline shortness of breath with exertion and occasional cough without significant acute changes. CT chest on 05/22/23 showed, Stable posttreatment changes in the RIGHT upper lobe. No suspicious pulmonary nodules or lymphadenopathy. Data Reviewed: Most recent imaging. Assessment: CT findings showed stable findings. Plan: I will get a follow CT chest in six months and then a phone visit. Total Time Spent: 5 minutes Ellen Major MD [facility] 05-30-2023 Note HNO ID: [id number] Author: Mariela Parnell, RT(R) Service: ? Author Type: Staff Certified Nurse Midwife Type: Progress Notes Filed: 05/30/2023 3:34 PM Note Text: Radiology Service Progress Note PATIENT NAME: Oliverio Oshea DATE OF SERVICE: May 30, 2023 TIME: 3:33 PM PATIENT IDENTITY VERIFICATION COMPLETED USING TWO (2) IDENTIFIERS: Name and Date of confirmed by patient verbally. FALL SCREENING: Has the patient had 2 falls in the last year or 1 fall with injury or currently using an Ambulatory Assistive Device (Walker, Cane, Wheelchair, Crutches, etc.)? No PATIENT GENDER DATA: Male PATIENT RELEVANT IMPLANT DATA REVIEWED: Yes RADIOLOGY DEPARTMENT: CT; Exam(s) Completed: Chest PERIPHERAL IV DATA: Not applicable SIGNED BY: RT Elsie(R) May 30, 2023 3:[address] [facility] 05-30-2023 History of Presen t illness Narrative Radiology Service Progress Note PATIENT NAME: Oliverio Oshea DATE OF SERVICE: May 30, 2023 TIME: 3:33 PM PATIENT IDENTITY VERIFICATION COMPLETED USING TWO (2) IDENTIFIERS: Name and Date of confirmed by patient verbally. FALL SCREENING: Has the patient had 2 falls in the last year or 1 fall with injury or currently using an Ambulatory Assistive Device (Walker, Cane, Wheelchair, Crutches, etc.)? No PATIENT GENDER DATA: Male PATIENT RELEVANT IMPLANT DATA REVIEWED: Yes RADIOLOGY DEPARTMENT: CT; Exam(s) Completed: Chest PERIPHERAL IV DATA: Not applicable SIGNED BY: RT Elsie(R) May 30, 2023 3:33 PM documented in this encounter [facility] 03-06-2023 Note HNO ID: [id number] Author: Jimbo Marina Service: ? Author Type: Physician Type: Progress Notes Filed: 03/07/2023 10:46 PM Note Text: Last saw Ulices Combs. 03/06/23 Initial Office Visit Subjective: This 77 year old male presents to clinic for diabetic foot check. Patient has the following complaints: ingrowing toenail. Patient admits to being diabetic. for couple years now. Patient +B/T/N in feet at this time. Patient -pain in legs when walking. No other pedal complaints at this time. No change in medications or medical history since last visit. PAIN EVALUATION No data found in the last 1 encounters. Hemoglobin A1C (%) Date Value 01/20/2023 7.1 08/17/2022 8.2 01/17/2022 7.8 06/03/2021 7.0 04/29/2020 7.0 03/29/2019 6.8 07/05/2018 6.9 07/20/2017 6.5 PCP: Fransisca Combs PA-C PAST MEDICAL HISTORY Diagnosis Date Arrhythmia Atrial flutter by electrocardiogram ([facility]) 12/15/2014 Benign essential tremor 09/20/2012 Blood dyscrasia Blood in stool Centrilobular emphysema ([facility]) 10/06/2015 Chronic renal insufficiency, stage III (moderate) ([facility]) 01/15/2015 Hyperlipidemia 09/26/2012 Hypertension Multiple lung nodules 02/12/2016 SILVER (obstructive sleep apnea) uses CPAP Osteoarthrosis, unspecified whether generalized or localized, other specified sites pilonidal cyst Snoring Type 2 diabetes mellitus with stage 3 chronic kidney disease, without long-term current use of insulin ([facility]) 04/27/2017 Ulcerative colitis, unspecified Current Outpatient Medications Medication Sig mesalamine (ASACOL HD) 800 mg TbEC EC tablet Take 1 tablet by mouth twice daily. furosemide (LASIX) 20 mg tablet Take 20mg daily and additional 20mg as needed for increased shortness or breath and/or legs swelling with weight gain greater than 3lbs prazosin (MINIPRESS) 2 mg cap Take 1 capsule by mouth twice daily. metoprolol tartrate, short acting, (LOPRESSOR) 100 mg tablet Take 1 tablet by mouth twice daily. Lancets lancets Test blood sugar(s) 3 times daily. Dx: Type 2 DM - Controlled E11.9 Insulin: Yes blood sugar diagnostic (ONETOUCH ULTRA TEST) test strip Test blood sugar twice daily dx: E11.22 insulin: yes metFORMIN (GLUCOPHAGE) 500 mg tablet Take 1 tablet by mouth twice daily with meals. potassium chloride ER (K-DUR, KLOR-CON) 20 mEq tablet Take 1 tablet by mouth once daily. atorvastatin (LIPITOR) 40 mg tablet Take 1 tablet by mouth once daily. Insulin [place], Disposable, (NOVOFINE 32) 32 gauge x 1/4 1 Each once daily. DX E11.22 Insulin yes azaTHIOprine (IMURAN) 50 mg tablet Take 150 mg by mouth once daily. insulin glargine (LANTUS SOLOSTAR U-100 INSULIN) 100 unit/mL (3 mL) Inject 5 Units subcutaneously daily at bedtime. ketoconazole (NIZORAL) 2 % shampoo SHAMPOO TWICE A WEEK DIRECTED flecainide (TAMBOCOR) 50 mg tablet Take 1 tablet by mouth twice daily. tiotropium-olodaterol (STIOLTO RESPIMAT) 2.5-2.5 mcg/actuation Inhale 2 Puffs as instructed once daily. fexofenadine (GURVINDER ALLERGY) 180 mg tablet Take 1 tablet by mouth once daily. clotrimazole-betamethasone (LOTRISONE) cream Apply 1 application to affected area twice daily. UNTIL CLEAR FOR UP TO 2-3 WEEKS nystatin-triamcinolone (MYCOLOG II) cream Apply 1 application to affected area four times daily. warfarin (COUMADIN) 2.5 mg tablet Take 1 tablet by mouth once daily. Or as directed (Patient taking differently: Take 2.5 mg by mouth once daily. 2.5 mg daily or as directed. Dr Gilman) diphenhydrAMINE (ANTIHISTAMINE) 25 mg tablet Take 1 tablet by mouth every 6 hours as needed. empagliflozin (JARDIANCE) 10 mg tablet Take 1 tablet by mouth daily with breakfast. (Patient not taking: Reported on 03/06/2023) Blood Pressure Monitor (BLOOD PRESSURE KIT) kit 1 Units once daily. (Patient not taking: Reported on 03/06/2023) No current facility-administered medications for this visit. ALLERGIES Allergen Reactions Amlodipine Rash Azithromycin Diarrhea Penicillins Rash PAST SURGICAL HISTORY Procedure Laterality Date ARTHROSCOPY KNEE DIAGNOSTIC W/WO SYNOVIAL BX SPX Arthroscopy, knee right ARTHRP ACETBLR/PROX FEM PROSTC AGRFT/ALGRFT 2002 Hip replacement, total right COLONOSCOPY FLX DX W/COLLJ SPEC WHEN PFRMD 12/31/2014 Colonoscopy COLONOSCOPY FLX DX W/COLLJ SPEC WHEN PFRMD 12/10/2015 Colonoscopy COLONOSCOPY FLX DX W/COLLJ SPEC WHEN PFRMD 03/01/2021 COLONOSCOPY W/BIOPSY SINGLE/MULTIPLE 03/06/2009 marcos colitis, worse rectum to 50cm EGD TRANSORAL BIOPSY SINGLE/MULTIPLE 03/06/2009 mild gastitis EXCISION PILONIDAL CYST/SINUS SIMPLE 90s Excision pilonidal cyst HEART SURGERY HX JOINT REPLACEMENT HX LIGJ DIVJ AND/EXCJ 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 1 LEG 90s Varicose Vein Surgery TONSILLECTOMY HX TONSILLECTOMY PRIMARY/SECONDARY AGE 12/> 01/2006 T+A VASCULAR SURGERY PROCEDURE FAMILY HISTORY Problem Relation Age of Onset Coronary Artery Disease Father Colon Cancer Mother 83/heart problem (more content not included)... [facility] 03-06-2023 Note HNO ID: [id number] Author: Opal Amanda LPN Service: ? Author Type: LICENSED NURSE Type: Progress Notes Filed: 03/07/2023 10:46 PM Note Text: AMB ROOMING INTAKE FLOWSHEET DATA Patient presents with: Left Foot - New, Diabetic Foot Care, Ingrown Toenail Right Foot - New, Diabetic Foot Care, Ingrown Toenail Opal Amanda LPN [facility] 02-14-2023 Note HNO ID: [id number] Author: Cortney Resendiz, OD Service: ? Author Type: PHYSICAL EDUCATION INSTRUCTOR Type: Progress Notes Filed: 02/14/2023 2:59 PM Note Text: 1. Type 2 diabetes mellitus without retinopathy (HCC) Risk of diabetic changes and vision loss can be minimized by tight control of blood sugar, blood pressure, and cholesterol levels. Educated patient to continue care with primary care doctor and/or signal worker helper to maintain optimum levels as they are important to avoid ocular complications. Encouraged patient to call the office immediately with any changes to vision or visual concerns. Advised to not wait until the next scheduled exam. 2. Pseudophakia Doing well- clear capsule 3. Combined forms of age-related cataract of left eye +visual significance Patient plans on getting surgery done here in [place] due to transportation needs Follow-up in 1 year for diabetic eye exam or sooner as needed Cortney Resendiz, OD February 14, 2023 2:[address] [facility] 02-14-2023 History of Presen t illness Narrative 1. Type 2 diabetes mellitus without retinopathy (HCC) Risk of diabetic changes and vision loss can be minimized by tight control of blood sugar, blood pressure, and cholesterol levels. Educated patient to continue care with primary care doctor and/or signal worker helper to maintain optimum levels as they are important to avoid ocular complications. Encouraged patient to call the office immediately with any changes to vision or visual concerns. Advised to not wait until the next scheduled exam. 2. Pseudophakia Doing well- clear capsule 3. Combined forms of age-related cataract of left eye +visual significance Patient plans on getting surgery done here in [place] due to transportation needs Follow-up in 1 year for diabetic eye exam or sooner as needed Cortney Resendiz, OD February 14, 2023 2:58 PM documented in this encounter [facility] 02-02-2023 Note HNO ID: [id number] Author: Fransisca Combs PA-C Service: ? Author Type: Physician Real Estate Subagent Type: Progress Notes Filed: 02/05/2023 2:08 PM Note Text: 77 year old male with c/o 3 mo follow up Non-small cell carcinoma of lung, stage 1, right (hcc) (primary encounter diagnosis) Chronic respiratory failure with hypoxia (hcc) Centrilobular emphysema (hcc) Nocturnal oxygen desaturation Silver (obstructive sleep apnea) Monoclonal gammopathy Chorus Master: Dr. Vikram Easton [facility]: . Interval history: Stage IA3, T1cN0, non-small cell lung cancer (adenocarcinoma) of the right upper lobe lung 11/28/2022 XRT: f/u Dr. Major: stable 11/23/2022 CT chest WO: Stable posttreatment appearance of the chest. Stable borderline lymph nodes. No developing mass or adenopathy. Cholelithiasis. Nephrolithiasis. 08/22/2022 CT chest w/o IVCON: 1. Slight interval increase in consolidative changes surrounding metallic clips in the posterior right upper lung. Although this may reflect evolving posttreatment related changes, continued close attention on follow-up imaging is advised. If indicated, consider further evaluation with PET/CT to exclude the possibility of recurrent tumor. 2. Stable mildly prominent intrathoracic lymph nodes. 3. Stable 4 mm right lower lobe pulmonary nodule. 08/09/2022 chest x-ray: Scarring right apex both lungs, no acute pulmonary abnormality, no change from prior. 02/15/2022 CT chest WO: Right upper lobe airspace disease consistent with postradiation change. Stable mild adenopathy Stable benign RIGHT lower lobe nodule. Cholelithiasis completed SBRT 03/12/[address] Elmer Orellana MD [facility] for bronchoscopic biopsy. Because patient could not be sampled through CT biopsy due to location behind scapula, sent to [facility] for possible resection, due to multiple problems was sent here for bronchoscopic sampling. 02/17/2021 [facility] CT chest without contrast: 1.7 cm x 1.16 cm irregular spiculated nodule posterior lateral base right upper lobe. Unable to biopsy as no adequate access. 01/26/2021 PET scan: Increased FDG uptake in the right upper lung/right upper lobe suggesting viable neoplasm. No other hypermetabolic abnormalities noted. 12/09/2020 low-dose CT lung screen [facility] Umu Hartman NP: 1.7 X 1.1 cm irregular nodular density posterior aspect right upper lung with adjacent focal area of scarring. Diffuse emphysematous changes more prominent in upper lobes, mild degree of linear markings at bases suggesting of scarring on the right side. Positive for coronary artery calcification and atherosclerotic calcification of the aortic arch. 04/10/[address] WO: Stable CT chest. Chronic interstitial lung changes stable with some improvement in the lingular atelectasis and right midlung tree-in-bud opacities. New area of juxtapleural tree-in-bud opacities RUL likely inflammatory/infectious process. Stable subpleural thickening + intrafissural lymph nodes RML 02/09/16 CT chest WO: subpleural density may represent tree-in-bud densities which may suggest an inflammatory process, nodular densities RIGHT minor fissure unchanged. Additional follow-up in one year recommended 10/05/15: chest CT WO: linear areas of scarring or subsegmental atelectasis LLL identified on CXR, nodular densities in the right minor fissure which most likely represent intrafissural lymph nodes, bilateral centrilobular emphysematous changes Current medications: Tiotropium-olodaterol 2.5-2.5 mcg per actuation 2 puffs daily Then paroxetine 180 mg daily Worsening shortness of breath: No. Doing well Cough: No. Wheezing: No. Smoking: No. Compliant with medications: Yes. Using rescue inhaler: only on occasion. Chronic heart failure with preserved ejection fraction (hcc) Pfo (patent foramen ovale) Tachycardia Paf (paroxysmal atrial fibrillation) (hcc) Hypertension, essential Hyperlipidemia ldl goal <100 Cardiovascular interval hx: 10/12/2021 echo [facility]: LV: Size and LVSF WNL, EF 65%, no diastolic dysfunction, no regional wall motion abnormalities. RV size and RV SF WNL. Mild focal mitral valve calcification anterior leaflet, mild diffuse aortic valve thickening, no stenosis or insufficiency. Otherwise no valvular heart disease, normal great vessels, no pericardial effusion. Today feeling pretty good . Has to use O2 today due to SOB, usually doesn't. Weight down to 302 from 311lbs. Swelling in legs improved. Sleeping supine. No current SOB unless moderate exertion 10 steps and has to stop to catch breath. No chest pain. Continues a little lightheaded. No racing or irregular heart rhythms. A little back pain with standing. 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 No orthopnea, racing or irregular heartbeats, palpitations, syncopal sx, nausea, diaphoresis, o (more content not included)... [facility] 02-02-2023 History of Presen t illness Narrative 77 year old male with c/o 3 mo follow up Non-small cell carcinoma of lung, stage 1, right (hcc) (primary encounter diagnosis) Chronic respiratory failure with hypoxia (hcc) Centrilobular emphysema (hcc) Nocturnal oxygen desaturation Silver (obstructive sleep apnea) Monoclonal gammopathy Chorus Master: Dr. Vikram Easton [facility]: . Interval history: Stage IA3, T1cN0, non-small cell lung cancer (adenocarcinoma) of the right upper lobe lung 11/28/2022 XRT: f/u Dr. Major: stable 11/23/2022 CT chest WO: Stable posttreatment appearance of the chest. Stable borderline lymph nodes. No developing mass or adenopathy. Cholelithiasis. Nephrolithiasis. 08/22/2022 CT chest w/o IVCON: 1. Slight interval increase in consolidative changes surrounding metallic clips in the posterior right upper lung. Although this may reflect evolving posttreatment related changes, continued close attention on follow-up imaging is advised. If indicated, consider further evaluation with PET/CT to exclude the possibility of recurrent tumor. 2. Stable mildly prominent intrathoracic lymph nodes. 3. Stable 4 mm right lower lobe pulmonary nodule. 08/09/2022 chest x-ray: Scarring right apex both lungs, no acute pulmonary abnormality, no change from prior. 02/15/2022 CT chest WO: Right upper lobe airspace disease consistent with postradiation change. Stable mild adenopathy Stable benign RIGHT lower lobe nodule. Cholelithiasis completed SBRT 03/12/[address] [facility]. Because patient could not be sampled through CT biopsy due to location behind scapula, sent to [facility] for possible resection, due to multiple problems was sent here for bronchoscopic sampling. 02/17/2021 [facility] CT chest without contrast: 1.7 cm x 1.16 cm irregular spiculated nodule posterior lateral base right upper lobe. Unable to biopsy as no adequate access. 01/26/2021 PET scan: Increased FDG uptake in the right upper lung/right upper lobe suggesting viable neoplasm. No other hypermetabolic abnormalities noted. 12/09/2020 low-dose CT lung screen [facility] Umu Hartman NP: 1.7 X 1.1 cm irregular nodular density posterior aspect right upper lung with adjacent focal area of scarring. Diffuse emphysematous changes more prominent in upper lobes, mild degree of linear markings at bases suggesting of scarring on the right side. Positive for coronary artery calcification and atherosclerotic calcification of the aortic arch. 04/10/[address] WO: Stable CT chest. Chronic interstitial lung changes stable with some improvement in the lingular atelectasis and right midlung tree-in-bud opacities. New area of juxtapleural tree-in-bud opacities RUL likely inflammatory/infectious process. Stable subpleural thickening + intrafissural lymph nodes RML 02/09/16 CT chest WO: subpleural density may represent tree-in-bud densities which may suggest an inflammatory process, nodular densities RIGHT minor fissure unchanged. Additional follow-up in one year recommended 10/05/15: chest CT WO: linear areas of scarring or subsegmental atelectasis LLL identified on CXR, nodular densities in the right minor fissure which most likely represent intrafissural lymph nodes, bilateral centrilobular emphysematous changes Current medications: Tiotropium-olodaterol 2.5-2.5 mcg per actuation 2 puffs daily Then paroxetine 180 mg daily Worsening shortness of breath: No. Doing well Cough: No. Wheezing: No. Smoking: No. Compliant with medications: Yes. Using rescue inhaler: only on occasion. Chronic heart failure with preserved ejection fraction (hcc) Pfo (patent foramen ovale) Tachycardia Paf (paroxysmal atrial fibrillation) (hcc) Hypertension, essential Hyperlipidemia ldl goal <100 Cardiovascular interval hx: 10/12/2021 echo [facility]: LV: Size and LVSF WNL, EF 65%, no diastolic dysfunction, no regional wall motion abnormalities. RV size and RV SF WNL. Mild focal mitral valve calcification anterior leaflet, mild diffuse aortic valve thickening, no stenosis or insufficiency. Otherwise no valvular heart disease, normal great vessels, no pericardial effusion. Today feeling pretty good . Has to use O2 today due to SOB, usually doesn't. Weight down to 302 from 311lbs. Swelling in legs improved. Sleeping supine. No current SOB unless moderate exertion 10 steps and has to stop to catch breath. No chest pain. Continues a little lightheaded. No racing or irregular heart rhythms. A little back pain with standing. 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 No orthopnea, racing or irregular heartbeats, palpitations, syncopal sx, nausea, diaphoresis, or heartburn. Improved stasis demratitis 09/14/2022 f/u Tyler Palacios CNP cardiology: EKG NSR, stable. No changes. Current meds: Furosemide 20 mg Terazosin 2 mg twice daily Metoprolol tartrate 100 mg twice daily Potassium chloride ER 20 mEq daily Atorvastatin 40 mg daily Flecainide 50 mg twice daily Coumadin 2.5 mg as directed by Dr. Gilman Lab review: Component Latest Ref Rng & Units 08/17/2022 01/20/2023 WBC 3.70 - 11.00 k/uL 13.05 (H) 6.95 RBC 4.20 - 6.00 m/uL 4.20 4.51 Hemoglobin 13.0 - 17.0 g/dL 12.3 (L) 14.1 Hematocrit 39.0 - 51.0 % 39.7 45.4 MCV 80.0 - 100.0 fL 94.5 100.7 (H) MCH 26.0 - 34.0 pg 29.3 31.3 MCHC 30.5 - 36.0 g/dL 31.0 31.1 RDW-CV 11.5 - 15.0 % 14.0 14.7 Platelet Count 150 - 400 k/uL 235 244 MPV 9.0 - 12.7 fL 10.3 10.2 NRBC /100 WBC 0.0 0.0 Absolute nRBC <0.01 k/uL <0.01 <0.01 Neut% % 82.0 58.1 Abs Neut (ANC) 1.45 - 7.50 k/uL 10.70 (H) 4.03 Lymph% % 15.0 29.6 Abs Lymph 1.00 - 4.00 k/uL 1.96 2.06 [place]% % 2.0 7.6 Abs [place] <0.87 k/uL 0.26 0.53 Eosin% % 1.0 3.9 Abs Eosin <0.46 k/uL 0.13 0.27 Baso% % 0.0 0.4 Abs Baso <0.11 k/uL 0.00 0.03 Myelo% % 1.0 Platelet Estimate Adequate Red Cell Morph Reviewed: see results of individual morphologies Polychromasia Slight Anisocytosis Present Ovalocytes Few DTYPE Manual Auto Immature Gran % % 0.4 IMMATURE GRANS (ABS) <0.10 k/uL 0.03 Protein, Total 6.3 - 8.0 g/dL 6.0 (L) 7.0 Albumin 3.9 - 4.9 g/dL 3.5 (L) 3.7 (L) Calcium 8.5 - 10.2 mg/dL 8.3 (L) 8.8 Bilirubin, Total 0.2 - 1.3 mg/dL 1.2 0.9 Alkaline Phosphatase 38 - 113 U/L 50 77 AST 14 - 40 U/L 17 15 ALT 10 - 54 U/L 23 10 Glucose 74 - 99 mg/dL 135 (H) 164 (H) BUN 9 - 24 mg/dL 18 14 Creatinine 0.73 - 1.22 mg/dL 1.23 (H) 1.31 (H) Sodium 136 - 144 mmol/L 141 140 Potassium 3.7 - 5.1 mmol/L 3.8 4.3 Chloride 97 - 105 mmol/L 103 103 CO2 22 - 30 mmol/L 25 22 Anion Gap 9 - 18 mmol/L 13 15 eGFR >=60 mL/min/1.73m 61 56 (L) Cholesterol, Total <200 mg/dL 112 131 Triglyceride <150 mg/dL 119 153 (H) HDL Cholesterol >39 mg/dL 35 (L) 26 (L) Non HDL Cholesterol <130 mg/dL 77 105 Fasting Time hrs 13 13 VLDL Cholesterol <30 mg/dL 24 31 (H) TC:HDL Ratio <5.10 3.20 5.04 LDL Cholesterol <100 mg/dL 53 74 LDL:HDL Ratio <2.54 1.51 2.85 (H) Class 3 severe obesity due to excess calories with serious comorbidity and body mass index (bmi) of 40.0 to 44.9 in adult ([facility]) Type 2 diabetes mellitus with stage 3a chronic kidney disease, without long-term current use of insulin ([facility]) Diabetes Mellitus Type 2: Current medications: Insulin Lantus 5 units SQ at bedtime: stopped Metformin 500 mg twice daily with meals Jardiance 10 mg daily with breakfast Taking medication as directed consistently? Yes Medication side effects: Medical Issues / Complications: hypertension, hyperlipidemia, peripheral neuropathy, and cardiovascular disease Checking blood sugars at home? Yes. Brought in meter, 110-189 Watching diet? Yes Physical Activity: Sedentary Hypoglycemic spells? No Any visual disturbance? No Chest pain? No New numbness, tingling or loss of sensation? Chronic Any recent foot problems, sores or rashes? No Any recent or sudden weight loss? No Change in urination? No. If yes: Any recent illness? No Last eye exam: due. Last foot exam: due. HBA1C: Hemoglobin A1C (%) Date Value 01/20/2023 7.1 08/17/2022 8.2 06/03/2021 7.0 04/29/2020 7.0 ) CMP: Glucose 164 01/20/2023 BUN 14 01/20/2023 Creatinine, Whole Blood (iSTAT) 1.31 01/20/2023 Sodium 140 01/20/2023 Potassium 4.3 01/20/2023 Chloride 103 01/20/2023 CO2 22 01/20/2023 Protein, Total 7.0 01/20/2023 Albumin 3.7 01/20/2023 Calcium 8.8 01/20/2023 Alk Phos Total 77 01/20/2023 Bilirubin, Total 0.9 01/20/2023 AST (SGOT) 15 01/20/2023 ALT (SGPT) 10 01/20/2023 Last 2 Encounter Wt Readings: Last 2 Encounter Wt Readings: Date: Wt: 02/02/2023 137 kg (302 lb) 11/17/2022 141.1 kg (311 lb) Chronic renal impairment, stage 3a (hcc) Component Latest Ref Rng & Units 08/17/2022 01/20/2023 WBC 3.70 - 11.00 k/uL 13.05 (H) 6.95 RBC 4.20 - 6.00 m/uL 4.20 4.51 Hemoglobin 13.0 - 17.0 g/dL 12.3 (L) 14.1 Hematocrit 39.0 - 51.0 % 39.7 45.4 MCV 80.0 - 100.0 fL 94.5 100.7 (H) MCH 26.0 - 34.0 pg 29.3 31.3 MCHC 30.5 - 36.0 g/dL 31.0 31.1 RDW-CV 11.5 - 15.0 % 14.0 14.7 Platelet Count 150 - 400 k/uL 235 244 MPV 9.0 - 12.7 fL 10.3 10.2 NRBC /100 WBC 0.0 0.0 Absolute nRBC <0.01 k/uL <0.01 <0.01 Neut% % 82.0 58.1 Abs Neut (ANC) 1.45 - 7.50 k/uL 10.70 (H) 4.03 Lymph% % 15.0 29.6 Abs Lymph 1.00 - 4.00 k/uL 1.96 2.06 [place]% % 2.0 7.6 Abs [place] <0.87 k/uL 0.26 0.53 Eosin% % 1.0 3.9 Abs Eosin <0.46 k/uL 0.13 0.27 Baso% % 0.0 0.4 Abs Baso <0.11 k/uL 0.00 0.03 Myelo% % 1.0 Platelet Estimate Adequate Red Cell Morph Reviewed: see results of individual morphologies Polychromasia Slight Anisocytosis Present Ovalocytes Few DTYPE Manual Auto Immature Gran % % 0.4 IMMATURE GRANS (ABS) <0.10 k/uL 0.03 Protein, Total 6.3 - 8.0 g/dL 6.0 (L) 7.0 Albumin 3.9 - 4.9 g/dL 3.5 (L) 3.7 (L) Calcium 8.5 - 10.2 mg/dL 8.3 (L) 8.8 Bilirubin, Total 0.2 - 1.3 mg/dL 1.2 0.9 Alkaline Phosphatase 38 - 113 U/L 50 77 AST 14 - 40 U/L 17 15 ALT 10 - 54 U/L 23 10 Glucose 74 - 99 mg/dL 135 (H) 164 (H) BUN 9 - 24 mg/dL 18 14 Creatinine 0.73 - 1.22 mg/dL 1.23 (H) 1.31 (H) Sodium 136 - 144 mmol/L 141 140 Potassium 3.7 - 5.1 mmol/L 3.8 4.3 Chloride 97 - 105 mmol/L 103 103 CO2 22 - 30 mmol/L 25 22 Anion Gap 9 - 18 mmol/L 13 15 eGFR >=60 mL/min/1.73m 61 56 (L) Ulcerative pancolitis without complication (hcc) Current medications: Azathioprine 50 mg 2 tablets daily Mesalamine 800 mg tablet twice daily Specialist Physician: 08/08/[address] Curtis Gorman DO for ulcerative colitis demonstrated on CT scan abdomen pelvis, left-sided colitis from splenic flexure to rectum. 08/08/2022 CT abdomen pelvis: 1. Mild hepatic steatosis 2. Stable nonspecific perinephric fat stranding 3. Fat-containing umbilical hernia 4. Questionable wall thickening of descending and sigmoid colon Patient was admitted at the time with elevated lactic acid 3.1 without leukocytosis. 02/19/2023 colonoscopy scheduled Bowels are fine. Doing well with current medication. Eating fruit which seems to help. 11/21/2022 [facility] Labs: CBC: WBC 6.9-Hgb 11.7-HCT 36.5, MCV 15.7, RDW 54.8-PLT 243 with normal differential. Benign essential tremor About the same, not too bothersome, able to manage. MGUS 10/31/2022 consultation with hematology oncology Dr. Brandon Chong MGUS: Recommended obtaining skeletal survey and monitoring M protein CBC: WBC 7.0-Hgb 12.3-HCT 39.7-PLT 176 Chemistries: WNL except chloride 108-BUN 20-CRE 1.37-GLU 252-CA 8.4. Liver tests within normal limits except slightly low AST and ALP. Albumin 2.8. SPE: IgG 779 IgA 211 IgM 489 ERIK M spike 0.4 HISTORIES FAMILY HISTORY Problem Relation Age of Onset Colon Cancer Mother 83/heart problems Coronary Artery Disease Father GI Sister crohns disease/sclerodermas other (IBS) Sister polmorplic arthritis Diabetes Sister Diabetes Brother kidney/liver disease/heart problems other (dystonia) Brother Niece/lymes disease PAST MEDICAL HISTORY Diagnosis Date Arrhythmia Atrial flutter by electrocardiogram ([facility]) 12/15/2014 Benign essential tremor 09/20/2012 Blood dyscrasia Blood in stool Centrilobular emphysema ([facility]) 10/06/2015 Chronic renal insufficiency, stage III (moderate) ([facility]) 01/15/2015 Hyperlipidemia 09/26/2012 Hypertension Multiple lung nodules 02/12/2016 SILVER (obstructive sleep apnea) uses CPAP Osteoarthrosis, unspecified whether generalized or localized, other specified sites pilonidal cyst Snoring Type 2 diabetes mellitus with stage 3 chronic kidney disease, without long-term current use of insulin ([facility]) 04/27/2017 Ulcerative colitis, unspecified PAST SURGICAL HISTORY Procedure Laterality Date ARTHROSCOPY KNEE DIAGNOSTIC W/WO SYNOVIAL BX SPX Arthroscopy, knee right ARTHRP ACETBLR/PROX FEM PROSTC AGRFT/ALGRFT 2002 Hip replacement, total right COLONOSCOPY FLX DX W/COLLJ SPEC WHEN PFRMD 12/31/2014 Colonoscopy COLONOSCOPY FLX DX W/COLLJ SPEC WHEN PFRMD 12/10/2015 Colonoscopy COLONOSCOPY FLX DX W/COLLJ SPEC WHEN PFRMD 03/01/2021 COLONOSCOPY W/BIOPSY SINGLE/MULTIPLE 03/06/2009 marcos colitis, worse rectum to 50cm EGD TRANSORAL BIOPSY SINGLE/MULTIPLE 03/06/2009 mild gastitis EXCISION PILONIDAL CYST/SINUS SIMPLE 90s Excision pilonidal cyst HEART SURGERY HX JOINT REPLACEMENT HX LIGJ DIVJ &/EXCJ 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 1 LEG 90s Varicose Vein Surgery TONSILLECTOMY HX TONSILLECTOMY PRIMARY/SECONDARY AGE 13/> 01/2006 T+A VASCULAR SURGERY PROCEDURE Social History Tobacco Use Smoking status: Former Packs/day: 0.50 Years: 35.00 Pack years: 17.50 Types: Cigarettes Quit date: 06/07/2013 Years since quittin.6 Smokeless tobacco: Never Vaping Use Vaping Use: Never used Substance Use Topics Alcohol use: No Alcohol/week: 10.0 standard drinks Comment: ocas Drug use: Not Currently Types: Marijuana ACTIVE PROBLEM LIST Ulcerative Colitis (Hcc) Benign Essential Tremor History of Tobacco Abuse Chronic Renal Impairment, Stage 3a (Hcc) Centrilobular Emphysema (Hcc) Non-Small Cell Carcinoma of Lung, Stage 1, Right (Hcc) Hyperlipidemia Ldl Goal <100 Paf (Paroxysmal Atrial Fibrillation) ([facility]) Type 2 Diabetes Mellitus With Stage 3a Chronic Kidney Disease, Without Long-Term Current Use of Insulin ([facility]) Class 3 Severe Obesity With Body Mass Index (Bmi) of 40.0 to 44.9 in Adult ([facility]) Tachycardia Shortness of Breath Hypertension, Essential Pfo (Patent Foramen [place]) Silver (Obstructive Sleep Apnea) Chronic Respiratory Failure With Hypoxia ([facility]) Chronic Heart Failure With Preserved Ejection Fraction ([facility]) Nocturnal Oxygen Desaturation History of Covid-19 Monoclonal Gammopathy Current Outpatient Medications Medication Sig Dispense Refill furosemide (LASIX) 20 mg tablet Take 20mg daily and additional 20mg as needed for increased shortness or breath and/or legs swelling with weight gain greater than 3lbs 360 tablet 1 empagliflozin (JARDIANCE) 10 mg tablet Take 1 tablet by mouth daily with breakfast. 30 tablet 5 prazosin (MINIPRESS) 2 mg cap Take 1 capsule by mouth twice daily. 180 capsule 3 metoprolol tartrate, short acting, (LOPRESSOR) 100 mg tablet Take 1 tablet by mouth twice daily. 180 tablet 3 Lancets lancets Test blood sugar(s) 3 times daily. Dx: Type 2 DM - Controlled E11.9 Insulin: Yes 100 Each 11 blood sugar diagnostic (ONETOUCH ULTRA TEST) test strip Test blood sugar twice daily dx: E11.22 insulin: yes 200 Each 3 metFORMIN (GLUCOPHAGE) 500 mg tablet Take 1 tablet by mouth twice daily with meals. 180 tablet 3 potassium chloride ER (K-DUR, KLOR-CON) 20 mEq tablet Take 1 tablet by mouth once daily. 90 tablet 3 atorvastatin (LIPITOR) 40 mg tablet Take 1 tablet by mouth once daily. 90 tablet 3 Insulin [place], Disposable, (NOVOFINE 32) 32 gauge x 1/4 1 Each once daily. DX E11.22 Insulin yes 100 Each 3 azaTHIOprine (IMURAN) 50 mg tablet Take 2 tablets by mouth once daily. insulin glargine (LANTUS SOLOSTAR U-100 INSULIN) 100 unit/mL (3 mL) Inject 5 Units subcutaneously daily at bedtime. 1 Each 0 iv contrast (will be provided with radiology test) CT Urogram WO/W Inject, intravenously, once for 1 dose.No IV access, insert saline lock prior to the beginning of sedation, infusion, injection of imaging exam. Discontinue saline lock post exam. If Pt. has a central line or IVAD, may access for administration according to line specific nursing protocol. Once exam is complete flush line and de-access according to line specific nursing protocol in the CT contrast administration guidelines link. 1 Each 0 ketoconazole (NIZORAL) 2 % shampoo SHAMPOO TWICE A WEEK DIRECTED 240 mL 5 mesalamine (ASACOL HD) 800 mg TbEC EC tablet Take 1 tablet by mouth twice daily. 180 tablet 3 flecainide (TAMBOCOR) 50 mg tablet Take 1 tablet by mouth twice daily. 180 tablet 3 tiotropium-olodaterol (STIOLTO RESPIMAT) 2.5-2.5 mcg/actuation Inhale 2 Puffs as instructed once daily. fexofenadine (GURVINDER ALLERGY) 180 mg tablet Take 1 tablet by mouth once daily. 90 tablet 1 clotrimazole-betamethasone (LOTRISONE) cream Apply 1 application to affected area twice daily. UNTIL CLEAR FOR UP TO 2-3 WEEKS 30 g 2 nystatin-triamcinolone (MYCOLOG II) cream Apply 1 application to affected area four times daily. 1 Tube 2 warfarin (COUMADIN) 2.5 mg tablet Take 1 tablet by mouth once daily. Or as directed (Patient taking differently: Take 2.5 mg by mouth once daily. 2.5 mg daily or as directed. Dr Gilman) 30 tablet 11 Blood Pressure Monitor (BLOOD PRESSURE KIT) kit 1 Units once daily. 1 Kit 0 diphenhydrAMINE (ANTIHISTAMINE) 25 mg tablet Take 1 tablet by mouth every 6 hours as needed. 0 No current facility-administered medications for this visit. HEPATITIS A(1 of 2 - Risk 2-dose series) Never done MENINGOCOCCAL B: Consider based on risk(1 of 4 - Increased Risk Bexsero 2-dose series) Never done SPIROMETRY Never done HEPATITIS B(1 of 3 - Risk 3-dose series) Never done MMR(1 of 2 - Risk 2-dose series) Never done URINE ALBUMIN:CREATININE RATIO due on 06/03/2022 DIABETIC FOOT EXAM due on 06/07/2022 ADVANCE DIRECTIVE DISCUSSION due on 08/07/2022 DILATED RETINAL EXAM due on 01/26/2023 EXAM: BP 116/64 Pulse 61 Resp 16 Wt (!) 137 kg (302 lb) SpO2 96% BMI 44.60 kg/m Pleasant obese adult man in no acute distress. Alert and oriented all spheres. Normal affect and cognition. Speech normal. No deficits to learning or comprehension. Skin warm, dry, pink to lips and nailbeds. Normal turgor. Respirations regular and unlabored. HEENT: NCAT. No scleral icterus or conjunctival injection. TM's clear. Nose and oropharynx free from injection or lesion. Oral membranes moist and pink. No cervical lymph nodes. Thyroid non-tender, no masses, or enlargement. Carotids pulses 2+/4+ without bruits. No JVD with HOB at 30 degrees. Chest is normal shape. Lungs are clear to all gale with good air exchange through out. HRRR without murmur or gallop. No lifts, heaves, or rubs. Abdomen: morbidly obese, diastasis recti, active bowel sounds throughout, soft, nontender, no masses or organomegaly. No CVAT. Extrem: no clubbing or cyanosis. Edema: 2/4+. Extremities are warm and pink with prompt capillary refill. Feet:Shoes and socks removed, Are you having foot pain no, No deformities, ulcers, calluses, normal distal pulses, sensitive to 10 gm monofilament, and calluses noted bilaterally ASSESSMENT/PLAN: 1. Non-small cell carcinoma of lung, stage 1, right (HCC) - ICD9: 162.9, ICD10: C34.91 (primary diagnosis) Stable without recurrence post XRT 2. Chronic respiratory failure with hypoxia (HCC) - ICD9: 518.83, 799.02, ICD10: J96.11 improved 3. Centrilobular emphysema (HCC) - ICD9: 492.8, ICD10: J43.2 Chronic issues with exertional SOB, compliant with meds 4. Nocturnal oxygen desaturation - ICD9: 327.24, ICD10: G47.34 Continues O2 at night, maintains sat > 90% 5. SILVER (obstructive sleep apnea) - ICD9: 327.23, ICD10: G47.33 Compliant with CPAP 6. Monoclonal gammopathy - ICD9: 273.1, ICD10: D47.[address] Chong, monitor m-protein 7. Chronic heart failure with preserved ejection fraction (HCC) - ICD9: 428.9, ICD10: I50.32 Stable without current sx 8. PFO (patent foramen ovale) - ICD9: 745.5, ICD10: Q21.12 Not demonstrated on last several echoes. 9. Tachycardia - ICD9: 785.0, ICD10: R00.0 Resolved 10. PAF (paroxysmal atrial fibrillation) (FORM[facility]) - ICD9: 427.31, ICD10: I48.0 Intermittent, stable, compliant with medications and followed by [facility]. 11. Hypertension, essential - ICD9: 401.9, ICD10: I10 - Controlled - Recommend home blood pressure monitoring, to bring results to next visit - Encouraged sodium restriction, DASH or Mediterranean diet - Recommend regular aerobic exercise - CBC + DIFF - COMP METABOLIC PANEL 12. Hyperlipidemia LDL goal <100 - ICD9: 272.4, ICD10: E78.5 - Controlled - Continue current medications - Counseled on healthy diet and regular exercise - COMP METABOLIC PANEL - LIPID PANEL BASIC 13. Class 3 severe obesity due to excess calories with serious comorbidity and body mass index (BMI) of 40.0 to 44.9 in adult ([facility]) - ICD9: 278.01, V85.41, ICD10: E66.01, Z68.41 Weight decreasing - Behavioral intervention and - Pharmacological intervention 14. Type 2 diabetes mellitus with stage 3a chronic kidney disease, without long-term current use of insulin ([facility]) - ICD9: 250.40, 585.3, ICD10: E11.22, N18.31 - Controlled - Continue current medications - eGFR: Stable - Counseled on avoiding NSAIDs, adequate hydration - HGB A1C 15. Chronic renal impairment, stage 3a ([facility]) - ICD9: 585.3, ICD10: N18.31 As above 16. 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 Gorman, has appointment coming up. Seems to be stable on current treatment. - MESALAMINE 800 MG TABLET,DELAYED RELEASE 17. Benign essential tremor - ICD9: 333.1, ICD10: G25.0 At this time is minor, 18. Ulcerative pancolitis with rectal bleeding (HCC) - ICD9: 556.6, ICD10: K51.011 As above - MESALAMINE 800 MG TABLET,DELAYED RELEASE 19. MGUS (monoclonal gammopathy of unknown significance) - ICD9: 273.1, ICD10: D47.2 Persistent lower extremity tingling, following with heme-onc Dr. Fan. Follow-up 6 months or as needed, complete fasting labs prior. Fransisca Combs PA-C documented in this encounter [facility] 01-23-2023 Miscellaneous Notes Pt notified and states he will discuss further at F/U appt with Ulices on 02/02. Meg Andujar RN Please let him know hgba1c is improved in good range. Blood count and chems are good except creatinine is a little higher with BUN showing good hydration. Recommend recheck with urine and blood in 4 weeks. Telephone on 01/21/23 RENAL FUNCTION PANEL ALBUMIN/CREAT RATIO RND UR Thanks, Ulices Combs PA-C documented in this encounter [facility] documented in this encounter [facility]04-25-2023 Miscellaneous Notes* Telephone Encounter - Leila Morin - 11/29/2022 4:40 PM EDT Patient returned call and confirmed CT and rescheduled phone follow up to afternoon on the same day. Leila Morin * Telephone Encounter - Annmarie Stokes - 11/29/2022 8:34 AM EDT Spoke with spouse and scheduled appointments. Patient will contact office to confirm. Please reschedule at patient request. * Telephone Encounter - Julia Sheffield - 11/28/2022 3:25 PM EDT Images from the original note were not included. Ellen Major MD, P W[facility] Hem/Onc Psr Please call him and schedule CT chest in six months and then a phone visit with me a few days afterwards. Thanks. [facility]23 NoteHNO ID: [id number] Author: Ellen Major MD, Service: ? Author Type: Physician Type: Progress Notes Filed: 12/01/2022 2:01 PM Note Text: AMBULATORY TELEPHONE VISIT Oliverio Hurst Dorie has consented to this telephone encounter. Persons Present: patient Chief Complaint/Reason: Follow-up after radiation treatment. 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 He is doing well without any specific new complaints. He denies any chest pain. Baseline shortness of breath with exertion and occasional cough without significant acute changes. CT chest on 11/23/22 showed, Stable posttreatment appearance of the chest. Stable borderline lymph nodes. No developing mass or adenopathy. Data Reviewed: Most recent imaging. Assessment: CT findings showed stable findings. Plan: I will get a follow CT chest in six months and then a phone visit. Total Time Spent: [address] [facility]04-24-2023 History of Present illness Narrative* Ellen Major MD, MD - 11/28/2022 3:07 PM EDT AMBULATORY TELEPHONE VISIT Oliverio Hurst Dorie has consented to this telephone encounter. Persons Present: patient Chief Complaint/Reason: Follow-up after radiation treatment. 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 He is doing well without any specific new complaints. He denies any chest pain. Baseline shortness of breath with exertion and occasional cough without significant acute changes. CT chest on 11/23/22 showed, Stable posttreatment appearance of the chest. Stable borderline lymph nodes. No developing mass or adenopathy. Data Reviewed: Most recent imaging. Assessment: CT findings showed stable findings. Plan: I will get a follow CT chest in six months and then a phone visit. Total Time Spent: 5 minutes Ellen Major MD [facility]23 NoteHNO ID: [id number] Author: RT Aleyda(R) Service: ? Author Type: Staff Certified Nurse Midwife Type: Progress Notes Filed: 11/23/2022 3:15 PM Note Text: Radiology Service Progress Note PATIENT NAME: Oliverio Oshea DATE OF SERVICE: November 23, 2022 TIME: 3:14 PM PATIENT IDENTITY VERIFICATION COMPLETED USING TWO (2) IDENTIFIERS: Name and Date of confirmed by patient verbally. FALL SCREENING: Has the patient had 2 falls in the last year or 1 fall with injury or currently using an Ambulatory Assistive Device (Walker, Cane, Wheelchair, Crutches, etc.)? No PATIENT GENDER DATA: Male PATIENT RELEVANT IMPLANT DATA REVIEWED: Not Applicable RADIOLOGY DEPARTMENT: CT; Exam(s) Completed: Chest PERIPHERAL IV DATA: Not applicable SIGNED BY: RT Elsie(Elena) November 23, 2022 3:14 [facility]04-19-2023 History of Present illness Narrative* Mariela Parnell RT(R) - 11/23/2022 8:00 AM EDT Radiology Service Progress Note PATIENT NAME: Oliverio Oshea DATE OF SERVICE: November 23, 2022 TIME: 3:14 PM PATIENT IDENTITY VERIFICATION COMPLETED USING TWO (2) IDENTIFIERS: Name and Date of confirmedby patient verbally. FALL SCREENING: Has the patient had 2 falls in the last year or 1 fall with injury or currently using an Ambulatory Assistive Device (Walker, Cane, Wheelchair, Crutches, etc.)? No PATIENT GENDER DATA: Male PATIENT RELEVANT IMPLANT DATA REVIEWED: Not Applicable RADIOLOGY DEPARTMENT: CT; Exam(s) Completed: Chest PERIPHERAL IV DATA: Not applicable SIGNED BY: RT Elsie(R) November 23, 2022 3:14 PM [facility] Miscellaneous Notes* Telephone Encounter - John Car LPN - 11/21/2022 1:30 PM EDT SIMA 11/17/22 NOV 02/02/23 * Telephone Encounter - Laurel Stokes - 11/21/2022 11:38 AM EDT Patient has been identified by name and date of : Yes Requested Prescriptions Pending Prescriptions Disp Refills furosemide (LASIX) 20 mg tablet 360 tablet 1 Sig: Take 20mg daily and additional 20mg as needed for increased shortness or breath and/or legs swelling with weight gain greater than 3lbs RX INSTRUCTIONS: Patient aware RX will be sent to pharmacy. No need to notify patient. Laurel Salazar Pss [facility] Evaluation note* Diagnosis Pain and swelling of right lower leg- Primary Chronic renal impairment, stage 3a (HCC) Hypertension, essential Unspecified essential hypertension Type 2 diabetes mellitus with stage 3a chronic kidney disease, without long-term current use of insulin (HCC) documented in this encounter [facility]04-13-2023 NoteHNO ID: [id number] Author: Fransisca Combs PA-C Service: ? Author Type: Physician [employer] Estate [employer] Type: Progress Notes Filed: 11/17/2022 8:27 PM Note Text: 77 year old male with c/o follow up on leg swelling, weight gain, SOB. Today feeling shitty . Has to use O2 today due to SOB, usually doesn't. Weight stable at 311lbs, no weight loss with additional lasix. Swelling went down with lasix in the morning but accumulate through the day. Sleeping supine. Sometimes SOB at rest. 10 steps and has to stop to catch breath. No chest pain. A little lightheaded. No racing or irregular heart rhythms. A little back pain with standing. 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 No chest, neck, upper back, upper extremity pain. No orthopnea, racing or irregular heartbeats, palpitations, syncopal sx, nausea, diaphoresis, or heartburn. 08/22/2022 CT chest IMPRESSION: 1. Slight interval increase in consolidative changes surrounding metallic clips in the posterior right upper lung. Although this may reflect evolving posttreatment related changes, continued close attention on follow-up imaging is advised. If indicated, consider further evaluation with PET/CT to exclude the possibility of recurrent tumor. 2. Stable mildly prominent intrathoracic lymph nodes. 3. Stable 4 mm right lower lobe pulmonary nodule. Repeat CT scheduled 11/23/2022 HISTORIES FAMILY HISTORY Problem Relation Age of Onset Colon Cancer Mother 83/heart problems Coronary Artery Disease Father GI Sister crohns disease/sclerodermas other (IBS) Sister polmorplic arthritis Diabetes Sister Diabetes Brother kidney/liver disease/heart problems other (dystonia) Brother Niece/lymes disease PAST MEDICAL HISTORY Diagnosis Date Arrhythmia Atrial flutter by electrocardiogram ([facility]) 12/15/2014 Benign essential tremor 09/20/2012 Blood dyscrasia Blood in stool Centrilobular emphysema ([facility]) 10/06/2015 Chronic renal insufficiency, stage III (moderate) ([facility]) 01/15/2015 Hyperlipidemia 09/26/2012 Hypertension Multiple lung nodules 02/12/2016 SILVER (obstructive sleep apnea) uses CPAP Osteoarthrosis, unspecified whether generalized or localized, other specified sites pilonidal cyst Snoring Type 2 diabetes mellitus with stage 3 chronic kidney disease, without long-term current use of insulin ([facility]) 04/27/2017 Ulcerative colitis, unspecified PAST SURGICAL HISTORY Procedure Laterality Date ARTHROSCOPY KNEE DIAGNOSTIC W/WO SYNOVIAL BX SPX Arthroscopy, knee right ARTHRP ACETBLR/PROX FEM PROSTC AGRFT/ALGRFT 2002 Hip replacement, total right COLONOSCOPY FLX DX W/COLLJ SPEC WHEN PFRMD 12/31/2014 Colonoscopy COLONOSCOPY FLX DX W/COLLJ SPEC WHEN PFRMD 12/10/2015 Colonoscopy COLONOSCOPY FLX DX W/COLLJ SPEC WHEN PFRMD 03/01/2021 COLONOSCOPY W/BIOPSY SINGLE/MULTIPLE 03/06/2009 marcos colitis, worse rectum to 50cm EGD TRANSORAL BIOPSY SINGLE/MULTIPLE 03/06/2009 mild gastitis EXCISION PILONIDAL CYST/SINUS SIMPLE 90s Excision pilonidal cyst HEART SURGERY HX JOINT REPLACEMENT HX LIGJ DIVJ AND/EXCJ 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 1 LEG 90s Varicose Vein Surgery TONSILLECTOMY HX TONSILLECTOMY PRIMARY/SECONDARY AGE 13/> 01/2006 T+A VASCULAR SURGERY PROCEDURE Social History Tobacco Use Smoking status: Former Packs/day: 0.50 Years: 35.00 Pack years: 17.50 Types: Cigarettes Quit date: 06/07/2013 Years since quittin.4 Smokeless tobacco: Never Vaping Use Vaping Use: Never used Substance Use Topics Alcohol use: No Alcohol/week: 10.0 standard drinks Comment: ocas Drug use: Not Currently Types: Marijuana ACTIVE PROBLEM LIST Ulcerative Colitis (Hcc) Benign Essential Tremor History of Tobacco Abuse Chronic Renal Impairment, Stage 3a (Hcc) Centrilobular Emphysema (Hcc) Non-Small Cell Carcinoma of Lung, Stage 1, Right (Hcc) Hyperlipidemia Ldl Goal <100 Paf (Paroxysmal Atrial Fibrillation) (Hcc) Type 2 Diabetes Mellitus With Stage 3a Chronic Kidney Disease, Without Long-Term Current Use of Insulin (Hcc) Class 3 Severe Obesity With Body Mass Index (Bmi) of 40.0 to 44.9 in Adult (Hcc) Tachycardia Shortness of Breath Hypertension, Essential Pfo (Patent Foramen [place]vale) Silver (Obstructive Sleep Apnea) Chronic Respiratory Failure With Hypoxia (Hcc) Chronic Heart Failure With Preserved Ejection Fraction (Hcc) Nocturnal Oxygen Desaturation History of Covid-19 Monoclonal Gammopathy Current Outpatient Medications Medication Sig Dispense Refill prazosin (MINIPRESS) 2 mg cap Take 1 capsule by mouth twice daily. 180 capsule 3 metoprolol tartrate, short acting, (LOPRESSOR) 100 mg tablet Take 1 tablet by mouth twice daily. 180 tablet 3 Lancets lancets Test blood sugar(s) 3 times daily. Dx: Type 2 DM - Controlled E11.9 Insulin: Yes 100 Each 11 blood sugar diagnostic (ONETOUCH ULTRA TEST) test strip Test blood sugar twice (more content not included)...[facility]04-13-2023 Instructions* Patient Instructions* Fransisca Combs PA-C - 11/17/2022 1:49 PM EDT Empagliflozin: Patient drug information Access [employer] for additional drug information, tools, and databases. Copyright [employer]. All rights reserved. (For additional information see Empagliflozin: Drug information ) You must carefully read the Consumer Information Use and Disclaimer below in order to understand and correctly use this information. Brand Names: [place] Jardiance Brand Names: Daniel Jardiance What is this drug used for? It is used to lower blood sugar in patients with high blood sugar (diabetes). It is used to lower the chance of from heart disease in certain people. What do I need to tell my doctor BEFORE I take this drug? If you are allergic to this drug; any part of this drug; or any other drugs, foods, or substances. Tell your doctor about the allergy and what signs you had. If you have any of these health problems: Acidic blood problem or type 1 diabetes. If you have kidney disease. If you are dehydrated, talk with your doctor. If you are or may be . Do not take this drug if you are in the second or third trimester of . If you are breast-feeding. Do not breast-feed while you take this drug. This is not a list of all drugs or health problems that interact with this drug. Tell your doctor and pharmacist about all of your drugs (prescription or OTC, natural products, vitamins) and health problems. You must check to make sure that it is safe for you to take this drug with all of your drugs and health problems. Do not start, stop, or change the dose of any drug withoutchecking with your doctor. What are some things I need to know or do while I take this drug? Tell all of your health care providers that you take this drug. This includes your doctors, nurses,pharmacists, and dentists. This drug may need to be stopped before certain types of surgery as yourdoctor has told you. If this drug is stopped, your doctor will tell you when to start taking this drug again after your surgery or procedure. Do not drive if your blood sugar has been low. There is a greater chance of you having a crash. To lower the chance of feeling dizzy or passing out, rise slowly if you have been sitting or lying down. Be careful going up and down stairs. Be careful in hot weather or while being active. Drink lots of fluids to stop fluid loss. If you are not able to eat or drink like normal, talk with your doctor. This includes if you are sick, fasting, or you are having certain procedures or surgery. If you cannot drink liquids by mouth or if you have upset stomach, throwing up, or diarrhea that does not go away; you need to avoid getting dehydrated. Contact your doctor to find out what to do. Dehydration may lead to new or worse kidney problems. High cholesterol has happened with this drug. If you have questions, talk with the doctor. Have blood work checked as you have been told by the doctor. Talk with the doctor. This drug may affect certain lab tests. Tell all of your health care providers and lab workers thatyou take this drug. It may be harder to control blood sugar during times of stress such as fever, infection, injury, orsurgery. A change in physical activity, exercise, or diet may also affect blood sugar. Check your blood sugar as you have been told by your doctor. Talk with your doctor about which glucose tests are best to use. Too much acid in the blood or urine (ketoacidosis) and severe urinary tract infections (UTIs) have happened. Ketoacidosis can be deadly. Both of these may need to be treated in a hospital. Kidney problems have happened. Sometimes, these may need to be treated in the hospital or with dialysis. Follow the diet and workout plan that your doctor told you about. If you are on a low-salt or salt-free diet, talk with your doctor. Talk with your doctor before you drink alcohol. A rare but very bad infection has happened with drugs like this one. This infection may be deadly. Get medical help right away if your genitals or the area between your genitals and rectum becomes tender, red, or swollen, and you have a fever or do not feel well. If you are 65 or older, use this drug with care. You could have more side effects. This drug may cause harm to the unborn baby if you take it while you are . If you are or you get while taking this drug, call your doctor right away. What are some side effects that I need to call my doctor about right away? WARNING/CAUTION: Even though it may be rare, some people may have very bad and sometimes deadly side effects when taking a drug. Tell your doctor or get medical help right away if you have any of thefollowing signs or symptoms that may be related to a very bad side effect: Signs of an allergic reaction, like rash; hives; itching; red, swollen, blistered, or peeling skin with or without fever; wheezing; tightness in the chest or throat; trouble breathing, swallowing, ortalking; unusual hoarseness; or swelling of the mouth, face, lips, tongue, or throat. Signs of fluid and electrolyte problems like mood changes, confusion, muscle pain or weakness, a heartbeat that does not feel normal, very bad dizziness or passing out, fast heartbeat, more thirst, seizures, feeling very tired or weak, not hungry, unable to pass urine or change in the amount of urine produced, dry mouth, dry eyes, or very bad upset stomach or throwing up. Signs of kidney problems like unable to pass urine, change in how much urine is passed, blood in the urine, or a big weight gain. Signs of too much acid in the blood (acidosis) like confusion; fast breathing; fast heartbeat; a heartbeat that does not feel normal; very bad stomach pain, upset stomach, or throwing up; feeling very sleepy; shortness of breath; or feeling very tired or weak. Signs of a urinary tract infection (UTI) like blood in the urine, burning or pain when passing urine, feeling the need to pass urine often or right away, fever, lower stomach pain, or pelvic pain. Vaginal yeast infection. Report itching or discharge. Yeast infection of the penis. Report pain, swelling, rash, or discharge. Low blood sugar can happen. The chance may be raised when this drug is used with other drugs for diabetes. Signs may be dizziness, headache, feeling sleepy or weak, shaking, fast heartbeat, confusion, hunger, or sweating. Call your doctor right away if you have any of these signs. Follow what you have been told to do for low blood sugar. This may include taking glucose tablets, liquid glucose, or some fruit juices. What are some other side effects of this drug? All drugs may cause side effects. However, many people have no side effects or only have minor sideeffects. Call your doctor or get medical help if you have any side effects that bother you or do not go away. These are not all of the side effects that may occur. If you have questions about side effects, call your doctor. Call your doctor for medical advice about side effects. You may report side effects to your national health agency. How is this drug best taken? Use this drug as ordered by your doctor. Read all information given to you. Follow all instructionsclosely. Take with or without food. Take in the morning. Drink lots of noncaffeine liquids unless told to drink less liquid by your doctor. Keep taking this drug as you have been told by your doctor or other health care provider, even if you feel well. What do I do if I miss a dose? Take a missed dose as soon as you think about it. If it is close to the time for your next dose, skip the missed dose and go back to your normal time. Do not take 2 doses at the same time or extra doses. If you are not sure what to do if you miss a dose, call your doctor. How do I store and/or throw out this drug? Store at room temperature in a dry place. Do not store in a bathroom. Keep all drugs in a safe place. Keep all drugs out of the reach of children and pets. Throw away unused or drugs. Do not flush down a toilet or pour down a drain unless you are told to do so. Check with your pharmacist if you have questions about the best way to throw out drugs. There may be drug take-back programs in your area. General drug facts If your symptoms or health problems do not get better or if they become worse, call your doctor. Do not share your drugs with others and do not take anyone else's drugs. Some drugs may have another patient information leaflet. If you have any questions about this drug,please talk with your doctor, nurse, pharmacist, or other health care provider. If you think there has been an overdose, call your poison control center or get medical care right away. Be ready to tell or show what was taken, how much, and when it happened. Last Reviewed [id number] Consumer Information Use and Disclaimer This information should not be used to decide whether or not to take this medicine or any other medicine. Only the healthcare provider has the knowledge and training to decide which medicines are right for a specific patient. This information does not endorse any medicine as safe, effective, or approved for treating any patient or health condition. This is only a brief summary of general information about this medicine. It does NOT include all information about the possible uses, directions, warnings, precautions, interactions, adverse effects, or risks that may apply to this medicine. This information is not specific medical advice and does not replace information you receive from the healthcare provider. You must talk with the healthcare provider for complete information about the risksand benefits of using this medicine. The use of this information is governed by the [employer] End User License Agreement, available at https://www.bLife/en/solutions/Movirtu/about/ellen. 2020 [employer]. and its affiliates and/or licensors. All rights reserved. Use of [employer] is subject to the Subscription and License Agreement. Topic 00745 Version 70.0 documented in this encounterWilson [facility]04-13-[facility]23 History of Present illness Narrative* Fransisca Combs PA-C - 11/17/2022 1:00 PM EDT 77 year old male with c/o follow up on leg swelling, weight gain, SOB. Today feeling shitty . Has to use O2 today due to SOB, usually doesn't. Weight stable at 311lbs, no weight loss with additional lasix. Swelling went down with lasix in the morning but accumulate through the day. Sleeping supine. Sometimes SOB at rest. 10 steps and has to stop to catch breath. No chest pain. A little lightheaded. No racing or irregular heart rhythms. A little back pain with standing. 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 No chest, neck, upper back, upper extremity pain. No orthopnea, racing or irregular heartbeats, palpitations, syncopal sx, nausea, diaphoresis, or heartburn. 08/22/2022 CT chest IMPRESSION: 1. Slight interval increase in consolidative changes surrounding metallic clips in the posterior right upper lung. Although this may reflect evolving posttreatment related changes, continued close attention on follow-up imaging is advised. If indicated, consider further evaluation with PET/CT to exclude the possibility of recurrent tumor. 2. Stable mildly prominent intrathoracic lymph nodes. 3. Stable 4 mm right lower lobe pulmonary nodule. Repeat CT scheduled 11/23/2022 HISTORIES FAMILY HISTORY Problem Relation Age of Onset Colon Cancer Mother 83/heart problems Coronary Artery Disease Father GI Sister crohns disease/sclerodermas other (IBS) Sister polmorplic arthritis Diabetes Sister Diabetes Brother kidney/liver disease/heart problems other (dystonia) Brother Niece/lymes disease PAST MEDICAL HISTORY Diagnosis Date Arrhythmia Atrial flutter by electrocardiogram ([facility]) 12/15/2014 Benign essential tremor 09/20/2012 Blood dyscrasia Blood in stool Centrilobular emphysema ([facility]) 10/06/2015 Chronic renal insufficiency, stage III (moderate) ([facility]) 01/15/2015 Hyperlipidemia 09/26/2012 Hypertension Multiple lung nodules 02/12/2016 SILVER (obstructive sleep apnea) uses CPAP Osteoarthrosis, unspecified whether generalized or localized, other specified sites pilonidal cyst Snoring Type 2 diabetes mellitus with stage 3 chronic kidney disease, without long-term current use of insulin ([facility]) 04/27/2017 Ulcerative colitis, unspecified PAST SURGICAL HISTORY Procedure Laterality Date ARTHROSCOPY KNEE DIAGNOSTIC W/WO SYNOVIAL BX SPX Arthroscopy, knee right ARTHRP ACETBLR/PROX FEM PROSTC AGRFT/ALGRFT 2002 Hip replacement, total right COLONOSCOPY FLX DX W/COLLJ SPEC WHEN PFRMD 12/31/2014 Colonoscopy COLONOSCOPY FLX DX W/COLLJ SPEC WHEN PFRMD 12/10/2015 Colonoscopy COLONOSCOPY FLX DX W/COLLJ SPEC WHEN PFRMD 03/01/2021 COLONOSCOPY W/BIOPSY SINGLE/MULTIPLE 03/06/2009 marcos colitis, worse rectum to 50cm EGD TRANSORAL BIOPSY SINGLE/MULTIPLE 03/06/2009 mild gastitis EXCISION PILONIDAL CYST/SINUS SIMPLE 90s Excision pilonidal cyst HEART SURGERY HX JOINT REPLACEMENT HX LIGJ DIVJ &/EXCJ 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 1 LEG 90s Varicose Vein Surgery TONSILLECTOMY HX TONSILLECTOMY PRIMARY/SECONDARY AGE 13/> 01/2006 T+A VASCULAR SURGERY PROCEDURE Social History Tobacco Use Smoking status: Former Packs/day: 0.50 Years: 35.00 Pack years: 17.50 Types: Cigarettes Quit date: 06/07/2013 Years since quittin.4 Smokeless tobacco: Never Vaping Use Vaping Use: Never used Substance Use Topics Alcohol use: No Alcohol/week: 10.0 standard drinks Comment: ocas Drug use: Not Currently Types: Marijuana ACTIVE PROBLEM LIST Ulcerative Colitis (Hcc) Benign Essential Tremor History of Tobacco Abuse Chronic Renal Impairment, Stage 3a (Hcc) Centrilobular Emphysema (Hcc) Non-Small Cell Carcinoma of Lung, Stage 1, Right (Hcc) Hyperlipidemia Ldl Goal <100 Paf (Paroxysmal Atrial Fibrillation) ([facility]) Type 2 Diabetes Mellitus With Stage 3a Chronic Kidney Disease, Without Long-Term Current Use of Insulin ([facility]) Class 3 Severe Obesity With Body Mass Index (Bmi) of 40.0 to 44.9 in Adult (Hcc) Tachycardia Shortness of Breath Hypertension, Essential Pfo (Patent Foramen Ovale) Silver (Obstructive Sleep Apnea) Chronic Respiratory Failure With Hypoxia (Hcc) Chronic Heart Failure With Preserved Ejection Fraction ([facility]) Nocturnal Oxygen Desaturation History of Covid-19 Monoclonal Gammopathy Current Outpatient Medications Medication Sig Dispense Refill prazosin (MINIPRESS) 2 mg cap Take 1 capsule by mouth twice daily. 180 capsule 3 metoprolol tartrate, short acting, (LOPRESSOR) 100 mg tablet Take 1 tablet by mouth twice daily. 180 tablet 3 Lancets lancets Test blood sugar(s) 3 times daily. Dx: Type 2 DM - Controlled E11.9 Insulin: Yes 100 Each 11 blood sugar diagnostic (ONETOUCH ULTRA TEST) test strip Test blood sugar twice daily dx: E11.22 insulin: yes 200 Each 3 metFORMIN (GLUCOPHAGE) 500 mg tablet Take 1 tablet by mouth twice daily with meals. 180 tablet 3 potassium chloride ER (K-DUR, KLOR-CON) 20 mEq tablet Take 1 tablet by mouth once daily. 90 tablet 3 atorvastatin (LIPITOR) 40 mg tablet Take 1 tablet by mouth once daily. 90 tablet 3 Insulin [place], Disposable, (NOVOFINE 32) 32 gauge x 1/4 1 Each once daily. DX E11.22 Insulin [id number] Each 3 azaTHIOprine (IMURAN) 50 mg tablet Take 2 tablets by mouth once daily. predniSONE (DELTASONE) 20 mg tablet Take 2 tablets by mouth once daily. FIRVANQ 50 mg/mL oral liquid Take 125 mg by mouth every 6 hours. insulin glargine (LANTUS SOLOSTAR U-100 INSULIN) 100 unit/mL (3 mL) Inject 5 Units subcutaneously daily at bedtime. 1 Each 0 iv contrast (will be provided with radiology test) CT Urogram WO/W Inject, intravenously, once for 1 dose.No IV access, insert saline lock prior to the beginning of sedation, infusion, injection of imaging exam. Discontinue saline lock post exam. If Pt. has a central line or IVAD, may access for administration according to line specific nursing protocol. Once exam is complete flush line and de-access according to line specific nursing protocol in the CT contrast administration guidelines link. 1 Each 0 ketoconazole (NIZORAL) 2 % shampoo SHAMPOO TWICE A WEEK DIRECTED 240 mL 5 mesalamine (ASACOL HD) 800 mg TbEC EC tablet Take 1 tablet by mouth twice daily. 180 tablet 3 flecainide (TAMBOCOR) 50 mg tablet Take 1 tablet by mouth twice daily. 180 tablet 3 tiotropium-olodaterol (STIOLTO RESPIMAT) 2.5-2.5 mcg/actuation Inhale 2 Puffs as instructed once daily. furosemide (LASIX) 20 mg tablet Take 20mg daily and additional 20mg as needed for increased shortness or breath and/or legs swelling with weight gain greater than 3lbs 360 tablet 1 fexofenadine (GURVINDER ALLERGY) 180 mg tablet Take 1 tablet by mouth once daily. 90 tablet 1 clotrimazole-betamethasone (LOTRISONE) cream Apply 1 application to affected area twice daily. UNTIL CLEAR FOR UP TO 2-3 WEEKS 30 g 2 nystatin-triamcinolone (MYCOLOG II) cream Apply 1 application to affected area four times daily. (Patient not taking: Reported on 05/20/2022) 1 Tube 2 warfarin (COUMADIN) 2.5 mg tablet Take 1 tablet by mouth once daily. Or as directed (Patient takingdifferently: Take 2.5 mg by mouth once daily. 2.5 mg daily or as directed. Dr Gilman) 30 tablet 11 Blood Pressure Monitor (BLOOD PRESSURE KIT) kit 1 Units once daily. (Patient not taking: Reported on 05/20/2022) 1 Kit 0 diphenhydrAMINE (ANTIHISTAMINE) 25 mg tablet Take 1 tablet by mouth every 6 hours as needed. 0 No current facility-administered medications for this visit. HEPATITIS A(1 of 2 - Risk 2-dose series) Never done SPIROMETRY Never done HEPATITIS B(1 of 3 - Risk 3-dose series) Never done MMR(1 of 2 - Risk 2-dose series) Never done DTAP,TDAP,TD(3 - Td or Tdap) due on 02/16/2019 URINE ALBUMIN:CREATININE RATIO due on 06/03/2022 DIABETIC FOOT EXAM due on 06/07/2022 ADVANCE DIRECTIVE DISCUSSION due on 08/07/2022 DEPRESSION ASSESSMENT Never done HBA1C due on 11/15/2022 EXAM: BP 116/58 Pulse 65 Resp 24 Wt (!) 141.1 kg (311 lb) SpO2 97% BMI 45.93 kg/m Pleasant obese adult man in no acute distress. Alert and oriented all spheres. Normal affect and cognition. Speech normal. No deficits to learning or comprehension. Skin warm, dry, pink to lips and nailbeds. Normal turgor. Respirations regular and unlabored. Speaking in full sentences. HEENT: NCAT. No scleral icterus or conjunctival injection. TM's clear. Nose and oropharynx free from injection or lesion. Oral membranes moist and pink. No cervical lymph nodes. Thyroid non-tender, no masses, or enlargement. Carotids pulses 2+/4+ without bruits. No JVD with HOB at 30 degrees. Chest is normal shape. Lungs are clear to all gale with good air exchange through out. No dullness in bases. Diminshed vibratory. HRRR without murmur or gallop. No lifts, heaves, or rubs. Extrem: no clubbing or cyanosis. Edema: non-pitting, right calf no longer erythematous, non-tender.Extremities are warm and pink with prompt capillary refill. ASSESSMENT/PLAN: 1. Pain and swelling of right lower leg - ICD9: 729.5, 729.81, ICD10: M79.661, M79.89 (primary diagnosis) Improved. Possibly mild cellulitis vs stasis dermatitis. 2. Chronic renal impairment, stage 3a (HCC) - ICD9: 585.3, ICD10: N18.31 - eGFR: Stable - Counseled on avoiding regular use of NSAIDs, adequate hydration, potential risk of IV dye 3. Hypertension, essential - ICD9: 401.9, ICD10: I10 - good control, possibly over controlled. - Continue current medication(s) - Recommended regular aerobic exercise. - Recommend home blood pressure monitoring, to bring results in on next visit - Goal of BP <130/80 4. Type 2 diabetes mellitus with stage 3a chronic kidney disease, without long- term current use of insulin (HCC) - ICD9: 250.40, 585.3, ICD10: E11.22, N18.31 - Uncontrolled - Start empagliflozin (Jardiance) - Educated on new medication administration, warnings and cautions, common side effects, anticipated duration or therapy, and instructions on cessation management to avoid risks if stops medication. Patient choice was discussed in shared decision making. Cautioned specifically on possibility of balanitis, UTI first month on new med. Has nizoral cream already if needed. Discussed benefits for cardiovascular and CHF - eGFR: Stable - Counseled on avoiding regular use of NSAIDs, adequate hydration, potential risk of IV dye Fransisca Combs PA-C documented in this encounterWilson [facility] Hospital04-10-2023 Miscellaneous Notes* Telephone Encounter - Edita Biggs Ma - 11/14/2022 5:34 PM EDT Pt scheduled for f/u * Telephone Encounter - Fransisca Combs PA-C - 11/14/2022 10:21 AM EDT Reviewed labs, improved from August. Thanks, Ulices Combs PA-C * Telephone Encounter - Edita Biggs Ma - 11/14/2022 8:39 AM EDT Pt advised of results Has slight pain above ankle , rating it about a 1-2, described as slight shooting pain. Since taking the double lasix, he does not have swelling. Recently had some additional labs done from [facility], results on providers desk. Please advise. * Telephone Encounter - Edita Biggs Ma - 11/14/2022 8:32 AM EDT ----- Message from Fransisca Combs PA-C sent at 11/12/2022 12:30 PM EDT ----- Please let him know BNP mildly elevated, possibly CHF vs renal effects. Need to know how he's doing with swelling and pain. Thanks, Ulices Combs PA-C documented in this encounterWilson [facility] Hospital04-06-2023 Miscellaneous Notes* Telephone Encounter - VANESSA Philip - 11/10/2022 12:54 PM EDT SIMA 11/01/22 with GB Appointment scheduled 02/02/23 Please advise. Thank you. VANESSA Philip * Telephone Encounter - Janet Garrido Pss - 11/10/2022 11:54 AM EDT Pharmacy verified in [facility] Patient has been identified by name and date of : Yes Patient aware RX will be sent to pharmacy. No need to notify patient. Patient phones for refill(s): Requested Prescriptions Pending Prescriptions Disp Refills prazosin (MINIPRESS) 2 mg cap 180 capsule 3 Sig: Take 1 capsule by mouth twice daily. Date of last office visit : 11/01/2022 Date of next office visit : 02/02/2023 Last 2 Encounter Wt Readings: Date: Wt: 11/01/2022 141.1 kg (311 lb) 08/19/2022 136.5 kg (301 lb) Please advise. Janet Garrido Pss documented in this encounterWilson [facility] Hospital03-28-2023 Miscellaneous Notes* Telephone Encounter - Fransisca Combs PA-C - 11/01/2022 5:30 PM EDT Phoned and advised US was negative. Thanks, Ulices Combs PA-C documented in this encounterWilson [facility] Hospital03-28-2023 NoteHNO ID: [id number] Author: Fransisca Combs PA-C Service: ? Author Type: Physician Real Estate Subagent Type: Progress Notes Filed: 11/01/2022 6:53 PM Note Text: 77 year old male with c/o right ankle swelling and tenderness. Started about 2 weeks ago. No known injury or overuse. Left lower leg feels tight. 16lb weight gain since 06/08/2022. Normal breathing issues, no increase SOB, orthopnea, or change in dyspnea with exertion. Wears O2 2L/min Blood sugars: [phone] Hemoglobin A1C (%) Date Value 08/17/2022 8.2 01/17/2022 7.8 06/03/2021 7.0 04/29/2020 7.0 ) HISTORIES FAMILY HISTORY Problem Relation Age of Onset Colon Cancer Mother 83/heart problems Coronary Artery Disease Father GI Sister crohns disease/sclerodermas other (IBS) Sister polmorplic arthritis Diabetes Sister Diabetes Brother kidney/liver disease/heart problems other (dystonia) Brother Niece/lymes disease PAST MEDICAL HISTORY Diagnosis Date Arrhythmia Atrial flutter by electrocardiogram ([facility]) 12/15/2014 Benign essential tremor 09/20/2012 Blood dyscrasia Blood in stool Centrilobular emphysema ([facility]) 10/06/2015 Chronic renal insufficiency, stage III (moderate) ([facility]) 01/15/2015 Hyperlipidemia 09/26/2012 Hypertension Multiple lung nodules 02/12/2016 SILVER (obstructive sleep apnea) uses CPAP Osteoarthrosis, unspecified whether generalized or localized, other specified sites pilonidal cyst Snoring Type 2 diabetes mellitus with stage 3 chronic kidney disease, without long-term current use of insulin ([facility]) 04/27/2017 Ulcerative colitis, unspecified PAST SURGICAL HISTORY Procedure Laterality Date ARTHROSCOPY KNEE DIAGNOSTIC W/WO SYNOVIAL BX SPX Arthroscopy, knee right ARTHRP ACETBLR/PROX FEM PROSTC AGRFT/ALGRFT 2002 Hip replacement, total right COLONOSCOPY FLX DX W/COLLJ SPEC WHEN PFRMD 12/31/2014 Colonoscopy COLONOSCOPY FLX DX W/COLLJ SPEC WHEN PFRMD 12/10/2015 Colonoscopy COLONOSCOPY FLX DX W/COLLJ SPEC WHEN PFRMD 03/01/2021 COLONOSCOPY W/BIOPSY SINGLE/MULTIPLE 03/06/2009 marcos colitis, worse rectum to 50cm EGD TRANSORAL BIOPSY SINGLE/MULTIPLE 03/06/2009 mild gastitis EXCISION PILONIDAL CYST/SINUS SIMPLE 90s Excision pilonidal cyst HEART SURGERY HX JOINT REPLACEMENT HX LIGJ DIVJ AND/EXCJ 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 1 LEG 90s Varicose Vein Surgery TONSILLECTOMY HX TONSILLECTOMY PRIMARY/SECONDARY AGE 13/> 01/2006 T+A VASCULAR SURGERY PROCEDURE Social History Tobacco Use Smoking status: Former Packs/day: 0.50 Years: 35.00 Pack years: 17.50 Types: Cigarettes Quit date: 06/07/2013 Years since quittin.4 Smokeless tobacco: Never Vaping Use Vaping Use: Never used Substance Use Topics Alcohol use: No Alcohol/week: 10.0 standard drinks Comment: ocas Drug use: Not Currently Types: Marijuana ACTIVE PROBLEM LIST Ulcerative Colitis (Hcc) Benign Essential Tremor History of Tobacco Abuse Chronic Renal Impairment, Stage 3a (Hcc) Centrilobular Emphysema (Hcc) Non-Small Cell Carcinoma of Lung, Stage 1, Right (Hcc) Hyperlipidemia Ldl Goal <100 Paf (Paroxysmal Atrial Fibrillation) (Hcc) Type 2 Diabetes Mellitus With Stage 3a Chronic Kidney Disease, Without Long-Term Current Use of Insulin ([facility]) Class 3 Severe Obesity With Body Mass Index (Bmi) of 40.0 to 44.9 in Adult (Hcc) Tachycardia Shortness of Breath Hypertension, Essential Pfo (Patent Foramen Ovale) Silver (Obstructive Sleep Apnea) Chronic Respiratory Failure With Hypoxia (Hcc) Chronic Heart Failure With Preserved Ejection Fraction (Hcc) Nocturnal Oxygen Desaturation History of Covid-19 Current Outpatient Medications Medication Sig Dispense Refill metoprolol tartrate, short acting, (LOPRESSOR) 100 mg tablet Take 1 tablet by mouth twice daily. 180 tablet 3 Lancets lancets Test blood sugar(s) 3 times daily. Dx: Type 2 DM - Controlled E11.9 Insulin: Yes 100 Each 11 blood sugar diagnostic (ONETOUCH ULTRA TEST) test strip Test blood sugar twice daily dx: E11.22 insulin: yes 200 Each 3 metFORMIN (GLUCOPHAGE) 500 mg tablet Take 1 tablet by mouth twice daily with meals. 180 tablet 3 potassium chloride ER (K-DUR, KLOR-CON) 20 mEq tablet Take 1 tablet by mouth once daily. 90 tablet 3 atorvastatin (LIPITOR) 40 mg tablet Take 1 tablet by mouth once daily. 90 tablet 3 Insulin [place], Disposable, (NOVOFINE 32) 32 gauge x 1/4 1 Each once daily. DX E11.22 Insulin yes 100 Each 3 azaTHIOprine (IMURAN) 50 mg tablet Take 2 tablets by mouth once daily. predniSONE (DELTASONE) 20 mg tablet Take 2 tablets by mouth once daily. FIRVANQ 50 mg/mL oral liquid Take 125 mg by mouth every 6 hours. insulin glargine (LANTUS SOLOSTAR U-100 INSULIN) 100 unit/mL (3 mL) Inject 5 Units subcutaneously daily at bedtime. 1 Each 0 iv contrast (will be provided with radiology test) CT Urogram WO/W Inject, intravenously, once for 1 dose.No IV access, insert saline lock prior t (more content not included)...[facility]03-28-2023 Instructions* Patient Instructions* Fransisca Combs PA-C - 11/01/2022 2:13 PM EDT Increase lasix to 40mg daily x 5 days. documented in this encounterWilson [facility] Hospital03-28-2023 History of Present illness Narrative* Fransisca Combs PA-C - 11/01/2022 1:40 PM EDT 77 year old male with c/o right ankle swelling and tenderness. Started about 2 weeks ago. No known injury or overuse. Left lower leg feels tight. 16lb weight gain since 06/08/2022. Normal breathing issues, no increase SOB, orthopnea, or change in dyspnea with exertion. Wears O2 2L/min Blood sugars: [phone]- [phone] Hemoglobin A1C (%) Date Value 08/17/2022 8.2 01/17/2022 7.8 06/03/2021 7.0 04/29/2020 7.0 ) HISTORIES FAMILY HISTORY Problem Relation Age of Onset Colon Cancer Mother 83/heart problems Coronary Artery Disease Father GI Sister crohns disease/sclerodermas other (IBS) Sister polmorplic arthritis Diabetes Sister Diabetes Brother kidney/liver disease/heart problems other (dystonia) Brother Niece/lymes disease PAST MEDICAL HISTORY Diagnosis Date Arrhythmia Atrial flutter by electrocardiogram (HCC) 12/15/2014 Benign essential tremor 09/20/2012 Blood dyscrasia Blood in stool Centrilobular emphysema (HCC) 10/06/2015 Chronic renal insufficiency, stage III (moderate) (HCC) 01/15/2015 Hyperlipidemia 09/26/2012 Hypertension Multiple lung nodules 02/12/2016 SILVER (obstructive sleep apnea) uses CPAP Osteoarthrosis, unspecified whether generalized or localized, other specified sites pilonidal cyst Snoring Type 2 diabetes mellitus with stage 3 chronic kidney disease, without long-term current use of insulin (HCC) 04/27/2017 Ulcerative colitis, unspecified PAST SURGICAL HISTORY Procedure Laterality Date ARTHROSCOPY KNEE DIAGNOSTIC W/WO SYNOVIAL BX SPX Arthroscopy, knee right ARTHRP ACETBLR/PROX FEM PROSTC AGRFT/ALGRFT 2002 Hip replacement, total right COLONOSCOPY FLX DX W/COLLJ SPEC WHEN PFRMD 12/31/2014 Colonoscopy COLONOSCOPY FLX DX W/COLLJ SPEC WHEN PFRMD 12/10/2015 Colonoscopy COLONOSCOPY FLX DX W/COLLJ SPEC WHEN PFRMD 03/01/2021 COLONOSCOPY W/BIOPSY SINGLE/MULTIPLE 03/06/2009 marcos colitis, worse rectum to 50cm EGD TRANSORAL BIOPSY SINGLE/MULTIPLE 03/06/2009 mild gastitis EXCISION PILONIDAL CYST/SINUS SIMPLE 90s Excision pilonidal cyst HEART SURGERY HX JOINT REPLACEMENT HX LIGJ DIVJ &/EXCJ 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 1 LEG 90s Varicose Vein Surgery TONSILLECTOMY HX TONSILLECTOMY PRIMARY/SECONDARY AGE 13/> 01/2006 T+A VASCULAR SURGERY PROCEDURE Social History Tobacco Use Smoking status: Former Packs/day: 0.50 Years: 35.00 Pack years: 17.50 Types: Cigarettes Quit date: 06/07/2013 Years since quittin.4 Smokeless tobacco: Never Vaping Use Vaping Use: Never used Substance Use Topics Alcohol use: No Alcohol/week: 10.0 standard drinks Comment: ocas Drug use: Not Currently Types: Marijuana ACTIVE PROBLEM LIST Ulcerative Colitis (Hcc) Benign Essential Tremor History of Tobacco Abuse Chronic Renal Impairment, Stage 3a (Hcc) Centrilobular Emphysema (Hcc) Non-Small Cell Carcinoma of Lung, Stage 1, Right (Hcc) Hyperlipidemia Ldl Goal <100 Paf (Paroxysmal Atrial Fibrillation) ([facility]) Type 2 Diabetes Mellitus With Stage 3a Chronic Kidney Disease, Without Long-Term Current Use of Insulin ([facility]) Class 3 Severe Obesity With Body Mass Index (Bmi) of 40.0 to 44.9 in Adult ([facility]) Tachycardia Shortness of Breath Hypertension, Essential Pfo (Patent Foramen Ovale) Silver (Obstructive Sleep Apnea) Chronic Respiratory Failure With Hypoxia ([facility]) Chronic Heart Failure With Preserved Ejection Fraction ([facility]) Nocturnal Oxygen Desaturation History of Covid-19 Current Outpatient Medications Medication Sig Dispense Refill metoprolol tartrate, short acting, (LOPRESSOR) 100 mg tablet Take 1 tablet by mouth twice daily. 180 tablet 3 Lancets lancets Test blood sugar(s) 3 times daily. Dx: Type 2 DM - Controlled E11.9 Insulin: Yes 100 Each 11 blood sugar diagnostic (ONETOUCH ULTRA TEST) test strip Test blood sugar twice daily dx: E11.22 insulin: yes 200 Each 3 metFORMIN (GLUCOPHAGE) 500 mg tablet Take 1 tablet by mouth twice daily with meals. 180 tablet 3 potassium chloride ER (K-DUR, KLOR-CON) 20 mEq tablet Take 1 tablet by mouth once daily. 90 tablet 3 atorvastatin (LIPITOR) 40 mg tablet Take 1 tablet by mouth once daily. 90 tablet 3 Insulin [place], Disposable, (NOVOFINE 32) 32 gauge x 1/4 1 Each once daily. DX E11.22 Insulin fze375 Each 3 azaTHIOprine (IMURAN) 50 mg tablet Take 2 tablets by mouth once daily. predniSONE (DELTASONE) 20 mg tablet Take 2 tablets by mouth once daily. FIRVANQ 50 mg/mL oral liquid Take 125 mg by mouth every 6 hours. insulin glargine (LANTUS SOLOSTAR U-100 INSULIN) 100 unit/mL (3 mL) Inject 5 Units subcutaneously daily at bedtime. 1 Each 0 iv contrast (will be provided with radiology test) CT Urogram WO/W Inject, intravenously, once for 1 dose.No IV access, insert saline lock prior to the beginning of sedation, infusion, injection of imaging exam. Discontinue saline lock post exam. If Pt. has a central line or IVAD, may access for administration according to line specific nursing protocol. Once exam is complete flush line and de-access according to line specific nursing protocol in the CT contrast administration guidelines link. 1 Each 0 ketoconazole (NIZORAL) 2 % shampoo SHAMPOO TWICE A WEEK DIRECTED 240 mL 5 mesalamine (ASACOL HD) 800 mg TbEC EC tablet Take 1 tablet by mouth twice daily. 180 tablet 3 flecainide (TAMBOCOR) 50 mg tablet Take 1 tablet by mouth twice daily. 180 tablet 3 prazosin (MINIPRESS) 2 mg cap Take 1 capsule by mouth twice daily. 180 capsule 3 tiotropium-olodaterol (STIOLTO RESPIMAT) 2.5-2.5 mcg/actuation Inhale 2 Puffs as instructed once daily. furosemide (LASIX) 20 mg tablet Take 20mg daily and additional 20mg as needed for increased shortness or breath and/or legs swelling with weight gain greater than 3lbs 360 tablet 1 fexofenadine (GURVINDER ALLERGY) 180 mg tablet Take 1 tablet by mouth once daily. 90 tablet 1 clotrimazole-betamethasone (LOTRISONE) cream Apply 1 application to affected area twice daily. UNTIL CLEAR FOR UP TO 2-3 WEEKS 30 g 2 nystatin-triamcinolone (MYCOLOG II) cream Apply 1 application to affected area four times daily. (Patient not taking: Reported on 05/20/2022) 1 Tube 2 warfarin (COUMADIN) 2.5 mg tablet Take 1 tablet by mouth once daily. Or as directed (Patient takingdifferently: Take 2.5 mg by mouth once daily. 2.5 mg daily or as directed. Dr Gilman) 30 tablet 11 Blood Pressure Monitor (BLOOD PRESSURE KIT) kit 1 Units once daily. (Patient not taking: Reported on 05/20/2022) 1 Kit 0 diphenhydrAMINE (ANTIHISTAMINE) 25 mg tablet Take 1 tablet by mouth every 6 hours as needed. 0 No current facility-administered medications for this visit. HEPATITIS A(1 of 2 - Risk 2-dose series) Never done SPIROMETRY Never done HEPATITIS B(1 of 3 - Risk 3-dose series) Never done MMR(1 of 2 - Risk 2-dose series) Never done DTAP,TDAP,TD(3 - Td or Tdap) due on 02/16/2019 INFLUENZA(1) due on 04/07/2022 URINE ALBUMIN:CREATININE RATIO due on 06/03/2022 DIABETIC FOOT EXAM due on 06/07/2022 ADVANCE DIRECTIVE DISCUSSION due on 08/07/2022 DEPRESSION ASSESSMENT Never done EXAM: BP 114/60 Pulse 73 Temp 37.1 C (98.8 F) Resp 18 Wt (!) 141.1 kg (311 lb) SpO2 95% BMI 45.93 kg/m Pleasant overweight adult man in no acute distress. Alert and oriented all spheres. Normal affect and cognition. Speech normal. No deficits to learning or comprehension. Skin warm, dry, pink to lips and nailbeds. Normal turgor. Respirations regular and unlabored. O2 2l/min NC HEENT: NCAT. No scleral icterus or conjunctival injection. TM's clear. Nose and oropharynx free from injection or lesion. Oral membranes moist and pink. No cervical lymph nodes. Thyroid non-tender, no masses, or enlargement. Carotids pulses 2+/4+ without bruits. Neck veins flat upright Chest is normal shape. Lungs are clear to all gale with good air exchange through out. HRRR without murmur or gallop. No lifts, heaves, or rubs. Extrem: no clubbing or cyanosis. Edema: chronic left lower leg 2/4+ pitting. Right calf and lower leg are tight, slightly violaceous color bilaterally. No plpable cords butsome tenderness posterior right calf. Stasis changes bilaterally . Extremities are warm and pink with prompt capillary refill. DPP 2/4+ ASSESSMENT/PLAN: 1. Pain and swelling of right lower leg - ICD9: 729.5, 729.81, ICD10: M79.661, M79.89 (primary diagnosis) Suspect fluid retention. Increase lasix to 40mg daily x 5 days and report progress. - BASIC METABOLIC PNL - NT PRO BNP - US LEG VEIN DVT UNL VAS LAB - US DVT LOWER RIGHT 2. Pain of right lower leg - ICD9: 729.5, ICD10: M79.661 - US LEG VEIN DVT UNL VAS LAB - US DVT LOWER RIGHT 3. Swelling of limb - ICD9: 729.81, ICD10: M79.89 - US LEG VEIN DVT UNL VAS LAB - US DVT LOWER RIGHT 4. Chronic heart failure with preserved ejection fraction (HCC) - ICD9: 428.9, ICD10: I50.32 Appears stable - COMP METABOLIC PANEL 5. Chronic renal impairment, stage 3a (HCC) - ICD9: 585.3, ICD10: N18.31 - COMP METABOLIC PANEL 6. Hyperlipidemia LDL goal <100 - ICD9: 272.4, ICD10: E78.5 - COMP METABOLIC PANEL - HGB A1C - LIPID PANEL BASIC 7. Hypertension, essential - ICD9: 401.9, ICD10: I10 - good control - Continue current medication(s) - Encouraged dietary sodium restriction/DASH diet - Recommended regular aerobic exercise. - Recommend home blood pressure monitoring, to bring results in on next visit - Goal of BP <130/80 - CBC + DIFF - COMP METABOLIC PANEL 8. Type 2 diabetes mellitus with stage 3a chronic kidney disease, without long- term current use of insulin (HCC) - ICD9: 250.40, 585.3, ICD10: E11.22, N18.31 - Controlled - Continue current medications - eGFR: Stable - Counseled on avoiding regular use of NSAIDs, adequate hydration, potential risk of IV dye - CBC + DIFF - COMP METABOLIC PANEL - HGB A1C Fransisca Combs PA-C Some of this note may have been copied and pasted for the purpose of history context and comparison. documented in this encounterWilson Memorial Hospital03-27-2023 Miscellaneous Notes* Telephone Encounter - Leila Erwin RN - 10/31/2022 4:25 PM EDT Patient call in for Right ankle swollen, just above ankle is red to burgundy color warm to touch. Patient denies pain except states that it is a burning pain at times. Nurse Triage assessment completed with protocol recommending for disposition of see PCP in 24 hours. Care advice reviewed with patient, patient stated understanding. Patient advised to contact office or seek evaluation in urgent care or ER if symptoms persist or gets worse. Reason for Disposition Looks like a boil, infected sore, deep ulcer or other infected rash (spreading redness, pus) Answer Assessment - Initial Assessment Questions 1. LOCATION: Right Ankle; Swelling as at the ankle 2. ONSET: Last Monday10/26/2022 3. SIZE: Swollen around ankle bone 4. PAIN: Not pain as much as there is a little burning sensation 5. CAUSE: Unsure 6. OTHER SYMPTOMS: Above ankle red to burgandy and warm to the touch Protocols used: Ankle Tstwfhek-BTPTS-FS documented in this encounterWilson Memorial Hospital03-22-2023 Miscellaneous Notes* Telephone Encounter - Laurel Salazar Pss - 10/26/2022 2:10 PM EDT Patient has been identified by name and date of : Yes Requested Prescriptions Pending Prescriptions Disp Refills metoprolol tartrate, short acting, (LOPRESSOR) 100 mg tablet 180 tablet 3 Sig: Take 1 tablet by mouth twice daily. RX INSTRUCTIONS: Patient aware RX will be sent to pharmacy. No need to notify patient. Laurel Salazar Pss documented in this encounterWilson Memorial Hospital03-06-2023 Miscellaneous Notes* Telephone Encounter - Deyanira Brown LPN - 10/10/2022 9:58 AM EST Patient has been identified by name and date of : Yes, Provider Ulices Combs Date 10/10/22 Time 10:00 am Patient phones for refill(s): Requested Prescriptions Pending Prescriptions Disp Refills Lancets lancets 100 Each 11 Sig: Test blood sugar(s) 3 times daily. Dx: Type 2 DM - Controlled E11.9 Insulin: Yes Date of last office visit in primary care: 08/19/22 next apt 11/17/22 Last 2 Encounter Wt Readings: Date: Wt: 08/19/2022 136.5 kg (301 lb) 08/08/2022 134.2 kg (295 lb 12.8 oz) Previous labs/tests for medication: Diabetes: Hemoglobin A1C (%) Date Value 08/17/2022 8.2 01/17/2022 7.8 06/03/2021 7.0 04/29/2020 7.0 Thank you. Deyanira Brown LPN documented in this encounterWilson Memorial Hospital02-03-2023 Miscellaneous Notes* Telephone Encounter - Rosaura De Santiago Ma - 09/09/2022 2:59 PM EST Spoke to patient who needs Metformin and test stirps sent [facility]. Patient is asking for prednisone step down since was on it for months. Advised prednisone was not prescribed by pcp so would need to reach out to specialty doctor to discuss. Rosaura De Santiago Ma * Telephone Encounter - Trisha Stokes - 09/09/2022 8:14 AM EST Patient is calling in for a few things: Step down of steroids; states he feels like he is having withdrawal and off balance Sweating like crazy One touch ultra test strips Looked for an appointment today and did not see one patient really did not want to come in office if not necessary. [facility] in [place]. Contact patient at [phone]. Trisha Stokes documented in this encounterWilson Memorial Hospital01-30-2023 Miscellaneous Notes* Telephone Encounter - Josefa Zaragoza LPN - 09/05/2022 12:10 PM EST Scheduled in November as requested. * Telephone Encounter - Janet Garrido Pss - 09/05/2022 8:11 AM EST Pharmacy verified in [facility] Patient has been identified by name and date of : Yes Patient aware RX will be sent to pharmacy. No need to notify patient. Patient phones for refill(s): Requested Prescriptions Pending Prescriptions Disp Refills potassium chloride ER (K-DUR, KLOR-CON) 20 mEq tablet 90 tablet 3 Sig: Take 1 tablet by mouth once daily. Date of last office visit : 08/19/2022 Date of next office visit : 11/17/2022 Last 2 Encounter Wt Readings: Date: Wt: 08/19/2022 136.5 kg (301 lb) 08/08/2022 134.2 kg (295 lb 12.8 oz) Please advise. Janet Garrido Pss documented in this encounterWilson Memorial Hospital01-23-2023 Miscellaneous Notes* Telephone Encounter - Julia Sheffield - 08/29/2022 10:07 AM EST Spoke with pt and scheduled as directed below * Telephone Encounter - Julia Sheffield - 08/26/2022 2:48 PM EST Images from the original note were not included. Ellen Major MD, P Wstr Hem/Onc Psr Please call him and schedule CT chest in 3 months and then a phone visit with me a few days afterwards. Thanks documented in this encounterWilson Memorial Hospital01-20-2023 NoteHNO ID: [id number] Author: Ellen Major MD, MD Service: ? Author Type: Physician Type: Progress Notes Filed: 08/29/2022 1:27 PM Note Text: AMBULATORY TELEPHONE VISIT Oliverio Oshea has consented to this telephone encounter. Persons Present: patient Chief Complaint/Reason: Four week follow-up after radiation treatment. 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 He is doing well without any specific new complaints. He denies any chest pain. Baseline shortness of breath with exertion and occasional cough without significant acute changes. CT chest on 08/22/22 showed, Slight interval increase in consolidative changes surrounding metallic clips in the posterior right upper lung. Although this may reflect evolving posttreatment related changes, continued close attention on follow-up imaging is advised. Data Reviewed: Most recent imaging. Assessment: CT findings suggesting likely evolving posttreatment related changes, although recurrence cannot be ruled out. Plan: I will get a follow CT chest in three months and then a phone visit. Total Time Spent: [address] [facility]01-20-2023 History of Present illness Narrative* Ellen Major MD, - 08/26/2022 11:14 AM EST AMBULATORY TELEPHONE VISIT Oliverio Oshea has consented to this telephone encounter. Persons Present: patient Chief Complaint/Reason: Four week follow-up after radiation treatment. 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 He is doing well without any specific new complaints. He denies any chest pain. Baseline shortness of breath with exertion and occasional cough without significant acute changes. CT chest on 08/22/22 showed, Slight interval increase in consolidative changes surrounding metallicclips in the posterior right upper lung. Although this may reflect evolving posttreatment related changes, continued close attention on follow-up imaging is advised. Data Reviewed: Most recent imaging. Assessment: CT findings suggesting likely evolving posttreatment related changes, although recurrence cannot beruled out. Plan: I will get a follow CT chest in three months and then a phone visit. Total Time Spent: 5 minutes Ellen Major MD documented in this encounterWilson Memorial Hospital01-16-2023 NoteHNO ID: [id number] Author: RT Aleyda(R) Service: ? Author Type: Staff Certified Nurse Midwife Type: Progress Notes Filed: 08/22/2022 4:14 PM Note Text: Radiology Service Progress Note PATIENT NAME: Oliverio Oshea DATE OF SERVICE: August 22, 2022 TIME: 4:14 PM PATIENT IDENTITY VERIFICATION COMPLETED USING TWO (2) IDENTIFIERS: Name and Date of confirmed by patient verbally. FALL SCREENING: Has the patient had 2 falls in the last year or 1 fall with injury or currently using an Ambulatory Assistive Device (Walker, Cane, Wheelchair, Crutches, etc.)? No PATIENT GENDER DATA: Male PATIENT RELEVANT IMPLANT DATA REVIEWED: Yes RADIOLOGY DEPARTMENT: CT; Exam(s) Completed: Chest PERIPHERAL IV DATA: Not applicable SIGNED BY: RT Elsie(R) August 22, 2022 4:14 [facility]01-16-2023 Miscellaneous Notes * Addendum Note - Margaret Le LPN - 08/22/2022 3:22 PM ESTAddended by: MARGARET LE LPN on: 08/22/2022 03:22 PM Modules accepted: Orders * Telephone Encounter - Margaret Le LPN - 08/22/2022 3:21 PM EST Patient calling to check status of request, pharmacy did not have pen needle rx yet. * Telephone Encounter - Fransisca Ovalles RN - 08/22/2022 8:01 AM EST Phoned patient and given provider's message below with verbalized understanding. Reports he is taking prednisone 40 mg daily, prescribed in hospital on 08-11-22, and plans to start weaning per pcp instruction, in about a week. Will have lab draw around 09-05-22. Patient reports he has the lantus, but no pen needles. Please send rx for these to [facility] [place]. Also requesting refill on atorvastatin- pended. Patient reports BS readings: 08-20-22: am: 151, supper: 320 08-21-22: am: 151, supper: 322 08-22-22: am: 188 * Telephone Encounter - Fransisca Combs PA-C - 08/19/2022 6:35 PM EST Please advise WBC is elevated and sugar up a little like;ly from steroids. Other labs look good except creatinine slightly elevated. Push fluids and we will recheck we will recheck in 2 weeks. Telephone on 08/19/22 BASIC METABOLIC PNL Thanks, Ulices Combs PA-C documented in this encounterWilson Memorial Hospital01-16-2023 History of Present illness Narrative* Mariela Parnell, RT(R) - 08/22/2022 1:40 PM EST Radiology Service Progress Note PATIENT NAME: Oliverio Oshea DATE OF SERVICE: August 22, 2022 TIME: 4:14 PM PATIENT IDENTITY VERIFICATION COMPLETED USING TWO (2) IDENTIFIERS: Name and Date of confirmedby patient verbally. FALL SCREENING: Has the patient had 2 falls in the last year or 1 fall with injury or currently using an Ambulatory Assistive Device (Walker, Cane, Wheelchair, Crutches, etc.)? No PATIENT GENDER DATA: Male PATIENT RELEVANT IMPLANT DATA REVIEWED: Yes RADIOLOGY DEPARTMENT: CT; Exam(s) Completed: Chest PERIPHERAL IV DATA: Not applicable SIGNED BY: RT Elsie(R) August 22, 2022 4:14 PM documented in this encounterWilson Memorial Hospital01-13-2023 NoteHNO ID: [id number] Author: Fransisca Combs PA-C Service: ? Author Type: Physician Real Estate Subagent Type: Progress Notes Filed: 08/19/2022 5:38 PM Note Text: 77 year old male with c/o Hospital discharge summary Facility: [facility] Date of admission: 08/08/2022 Date of discharge 08/10/2022 Consultations: Gastroenterology Dr. Curtis Gorman Discharge diagnoses: Ulcerative colitis Procedures: 08/09/[address] Gorman: Poor preparation, 5 mm polyp sigmoid colon sessile excised, inflammation from sigmoid colon to cecum severe, worsening compared to prior exams. Repeat colonoscopy 6 months. Discharge labs: Hgb 12.9-HCT 38.7 NA 134-CL 105-K4.2-CO2 21.0-BUN 16-CRE 1.18-GLU 250 08/09/2022 CRP 3.4, ESR 70, amylase 36, lipase 59 POC glucose [phone] 08/09/2022 chest x-ray: Scarring right apex both lungs, no acute pulmonary abnormality, no change from prior. Medication reconciliation: New medications: Azathioprine 50 mg daily #60/0 Firvanq 25 mg/mL 25 p.o. every 6 hours to #280/0 Prednisone 20 mg daily #60/0 Continue medications: Metformin 500 mg p.o. twice daily furosemide 20 to 40 mg p.o. daily as needed edema Potassium chloride 20 mEq daily Atorvastatin 40 mg daily nightly Metoprolol tartrate 100 m mg twice daily Venlafaxine 180 mg daily as needed Warfarin 2.5 mg daily or as directed 08/02/2022 INR 2.4 Flecainide 50 mg every 12 hours Prazosin 2 mg p.o. twice daily Stiolto Respimat 2.5-2.5 MCG per actuation 2 puffs daily Change medications: Mesalamine [address] 3 times daily #1/0 Discharge tasks: Patient to remain off warfarin x1 week and then resume. Follow-up appointments: Dr. Gorman in 2 weeks Current status: Doing okay Stool like mushy corn flakes, 1-2 times a day, occasionally at night Appetite is good. Has bad gas one day: took a gas pill, had bright blood on top of stool. Feels balance and strength affected Covid Chronic respiratory failure with hypoxia (hcc) Silver (obstructive sleep apnea) Asthma with copd with exacerbation (hcc) Centrilobular emphysema (hcc) Nodule of upper lobe of right lung Non-small cell carcinoma of lung, stage 1, right (hcc) Multiple lung nodules Stage IA3, T1cN0, non-small cell lung cancer (adenocarcinoma) of the right upper lobe lung, s/p SBRT finished on 05/19/21. Interval history update: - Pulm: [facility] Dr. Vikram Easton [facility] - RT Dr Mavis Major [facility] 07/08/2021 last consult with Umu Hartman CNP diagnosis of COPD, SILVER, lung cancer, at that time on no inhalers, successfully completed 5 radiation treatments for lung cancer with slight increased shortness of breath following radiation. 05/19/2021 completed RT 5 treatments COURSE: SBRT (stereotactic body radiotherapy) AREA TREATED: Right upper lung CURRENT DOSE: 5000 cGy in 5 fx PLANNED DOSE: 5000 cGy in 5 fx 04/16/[address] Ellen Major for radiation therapy. 03/12/[address] Elmer Orellana MD PUL[facility] for bronchoscopic biopsy. Because patient could not be sampled through CT biopsy due to location behind scapula, sent to [facility] for possible resection, due to multiple problems was sent here for bronchoscopic sampling. 02/17/2021 [facility] CT chest without contrast: 1.7 cm x 1.16 cm irregular spiculated nodule posterior lateral base right upper lobe. Unable to biopsy as no adequate access. 01/26/2021 PET scan: Increased FDG uptake in the right upper lung/right upper lobe suggesting viable neoplasm. No other hypermetabolic abnormalities noted. 12/09/2020 low-dose CT lung screen [facility] Umu Hartman, CLIENT DELIVERY SPECIALIST: 1.7 X 1.1 cm irregular nodular density posterior aspect right upper lung with adjacent focal area of scarring. Diffuse emphysematous changes more prominent in upper lobes, mild degree of linear markings at bases suggesting of scarring on the right side. Positive for coronary artery calcification and atherosclerotic calcification of the aortic arch. 04/10/[address] WO: Stable CT chest. Chronic interstitial lung changes stable with some improvement in the lingular atelectasis and right midlung tree-in-bud opacities. New area of juxtapleural tree-in-bud opacities RUL likely inflammatory/infectious process. Stable subpleural thickening + intrafissural lymph nodes RML 02/09/16 CT chest WO: subpleural density may represent tree-in-bud densities which may suggest an inflammatory process, nodular densities RIGHT minor fissure unchanged. Additional follow-up in one year recommended 10/05/15: chest CT WO: linear areas of scarring or subsegmental atelectasis LLL identified on CXR, nodular densities in the right minor fissure which most likely represent intrafissural lymph nodes, bilateral centrilobular emphysematous changes Current medications: Tiotropium- olodaterol 2.5-2.5 MCG per actuation: 2 puffs daily Denies current cough, shortness of breath except with significant exertion, orthopnea, (more content not included)...[facility] 08-16-2022 Miscellaneous Notes* Telephone Encounter - Fransisca Ovalles RN - 08/16/2022 8:53 AM EST Notified patient. * Telephone Encounter - Fransisca Combs PA-C - 08/15/2022 9:19 PM EST Telephone on 08/15/22 LIPID PANEL BASIC COMP METABOLIC PANEL CBC + DIFF HGB A1C Yes please. Ulices Combs PA-C * Telephone Encounter - Daisy Fransisca Urbina Pss - 08/15/2022 9:07 AM EST Patient has a 08/19 appt with Ulices Combs. Should patient have a lab draw prior? Please advise and call patient. documented in this encounterWilson Memorial Hospital01-10-2023 Evaluation note* Diagnosis Acute heart failure with preserved ejection fraction (HFpEF) (HCC)- Primary Chronic renal impairment, stage 3a (HCC) Hyperlipidemia LDL goal <100 Other and unspecified hyperlipidemia Hypertension, essential Unspecified essential hypertension Type 2 diabetes mellitus with stage 3a chronic kidney disease, without long-term current use of insulin ([facility]) documented in this encounter [facility]01-02-2023 NoteHNO ID: [id number] Author: Mariajose Spaulding APRN.ALLERGY SPECIALIST Service: ? Author Type: Nurse Practitioner Type: Progress Notes Filed: 08/08/2022 12:50 PM Note Text: 77 year old male with PMH afib (on coumadin), hyperlipidemia, heart failure, ulcerative colitis, and DM presents with complaints of bloody diarrhea Acute onset 4 days ago Endorses progressively worsening Filling the bowl with large liquid blood. States he is feeling lethargic and weak He is on Coumadin. Concerns for anemia, and lab not available given holiday. Referred to ED.[facility]01-02-2023 History of Present illness Narrative* Mariajose Spaulding APRN.ALLERGY SPECIALIST - 08/08/2022 12:44 PM EST 77 year old male with PMH afib (on coumadin), hyperlipidemia, heart failure, ulcerative colitis, and DM presents with complaints of bloody diarrhea Acute onset 4 days ago Endorses progressively worsening Filling the bowl with large liquid blood. States he is feeling lethargic and weak He is on Coumadin. Concerns for anemia, and lab not available given holiday. Referred to ED. 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 Deyanira Marian * Telephone Encounter - Mariela Laureano LPN - 06/15/2022 10:33 AM EST Called patient. Not available. Spouse unable to verify identifiers stating she forgets his date of but will have patient return call for message. Mariela Laureano LPN * Telephone Encounter - Viktoria Azul PA-C - 06/14/2022 5:00 PM EST [facility] [place] [place] [place] * Telephone Encounter - Zoya Hernandez RN - 06/14/2022 12:47 PM EST Pt calling in requesting rx for diazepam or ativan prior to CT scan. Pt states diazepam may need prior authorization (so ativan probably best/ easier choice). Pt is claustrophobic and has used these meds in the past prior to procedures. CT is scheduled for 06/17/22. Pt. uses [facility]. Thank you. Zoya Hernandez, RN documented in this encounterWilson Memorial Hospital11-02-2022 NoteHNO ID: [id number] Author: Barbara Johnson, DO Service: ? Author Type: Physician Type: Procedures Filed: 06/08/2022 3:36 PM Note Text: CYSTOSCOPY PROCEDURE NOTE: Oliverio Oshea is a 77 year old male who presents with hematuria gross for cystoscopy. Pt ID verified with patient: Yes Procedure verified with patient: Yes Procedure confirmed with physician and application support technician: Yes Sign In History and Physical Exam reviewed and is unchanged. . Informed Consent Discussed: Yes. Risks, benefits, alternatives and personnel discussed with patient who consents to proceed. Sign in Communication: Completed Time Out: Team Confirms the Correct Patient, Correct Procedure; Cystoscopy, Correct Site and Site Marking, Correct Position (if applicable). Affirmation of Time Out: Yes Sign Out: Sign Out Discussion: Completed Physician: Barbara Johnson DO A urinalysis was performed revealing no evidence of infection. The benefits, risks, alternatives of the cystoscopy procedure and personnel were discussed with the patient. The verbal consent was obtained and the patient agrees to proceed. Procedure: The patient was placed on the procedure table in the supine position and prepped and draped in the usual sterile fashion. 2% Lidocaine Jelly was placed per urethra as an anesthetic in the standard fashion. Once adequate local anesthesia was achieved, the tip of the flexible cystoscope was carefully placed into the urethra under direct visual guidance. The patient did have phimosis which was unable to be fully retracted. The scope was negotiated through the pendulous urethra to the level of the bulbar urethra with no evidence of stricture. 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 The bladder was entered and careful marcos endoscopy was carried out. The posterior, superior and lateral escobar and dome of the bladder were all well visualized and the scope was retroflexed upon itself. The findings were consistent with no evidence of bladder mucosal pathology. Prostate significantly enlarged with moderately long fossa with lateral lobe hypertrophy and large median lobe extending into the bladder lumen. Bladder with mild trabeculations and small (1mm) bladder calculi floating within the bladder. At the conclusion of the procedure, the flexible cystoscope was removed atraumatically. The patient tolerated the procedure without complications. Patient was given standard post-procedure instructions, and was directed to complete the course of oral antibiotics and increase oral fluid intake as directed. ASSESSMENT/PLAN: Gross hematuria - resolved. -No bladder tumor on cystoscopy. Patient still needs CT urogram for evaluation of upper tracts, he is scheduling this through [facility]. 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 Patient denies any issues voiding -Start clotrimazole-betamethasone for phimosis -Follow up with Viktoria Hercules MD Urology, PGY-5 June 08, 2022 3:00 PM Attending Note I evaluated the patient and personally participated in the hoffmann components. I agree with the resident's findings and plan as documented and have discussed the case and management of the patient's care with the resident. Signature: Barbara Johnson DO Date: 06/08/2022 Time: 3:35 PM Barbara Johnson, [facility]11-02-2022 Miscellaneous Notes* Telephone Encounter - Mariela Laureano LPN - 06/08/2022 9:25 AM EDT Called patient. Verified name and date of . Patient notified of need to call insurance regarding the authorization of services. Patient reportsthat he was told by CAT scan personnel at [facility] that he needed to go to [facility] to have it done but was wanting it done at [facility] yet did not want to drive out of town. States he knew he needed to go to [facility] but was trying to get it done at [place] but was told due to hisveins he needed to go to [facility]. Patient states he didn't get a call to schedule from [facility]- advised patient to call [facility] to schedule appointment. Verbalizes understanding. Mariela Laureano LPN * Telephone Encounter - Mariela Laureano LPN - 06/08/2022 9:16 AM EDT [facility] spoke with Radhames. Per Radhames they do not handle Notice of Authorization of Services and patient is to call the insurance company. Mariela Laureano LPN * Telephone Encounter - Mariela Laureano LPN - 06/07/2022 3:06 PM EDT Called [employer]- spoke with Ashlee. Per Ashlee she is uncertain of denial reasons and transferred to coverage review. Spoke with Mariela in prior authorizations. Approved 05/08/22-07/07/22. Mariela Laureano LPN * Telephone Encounter - Mariela Laureano LPN - 06/07/2022 2:17 PM EDT Attempted to call [employer]. Mariela Laureano LPN * Telephone Encounter - Mariela Laureano LPN - 06/07/2022 2:02 PM EDT Patient presented to clinic. Verified name and date of . Patient brought paperwork from insurance [employer] stating he can't deal with it: Follow up to [facility] regarding Diazepam and also Notice of Authorization Of Services for CT however has [facility] noted on paperwork. Patient confused as he isn't going to [facility]. Will need to contact both services regarding the concerns. Mariela Laureano LPN documented in this encounterWilson Memorial Hospital10-17-2022 Miscellaneous Notes* Telephone Encounter - Miroslava Salazar - 05/23/2022 11:11 AM EDT Pt confirmed cysto in [facility] with Dr. Johnson 06/08/22 @ 2:30. Amrita documented in this encounterWilson Memorial Hospital10-14-2022 History of Present illness Narrative* Viktoria Azul PA-C - 05/20/2022 9:51 AM EDT Images from the original note were not included. [facility] NEW PATIENT CLINIC NOTE SERVICE DATE: 05/20/2022 SERVICE TIME: 9:52 AM NAME: Oliverio Oshea CHIEF COMPLAINT: Gross Hematuria HISTORY OF PRESENT ILLNESS: Oliverio Oshea is a 77 year old Male with PMH including BPH with LUTS, Phimosis and Gross Hematuria presenting with Blood in the urine The patient reports he has had several episodes of gross blood in the urine and slow stream He states he also cannot retract the foreskin over the glans any more. We discussed the need for full hematuria workup due to the Gross Blood in the urine. These tests and procedures will be ordered today. We will address the phimosis and BPH in the near future. LUTS: DYSURIA: no URGENCY: No FREQUENCY:4 per day NOCTURIA: 2 per night STRAINING TO VOID: Yes EMPTIES COMPLETELY: No UTI: No GROSS HEMATURIA: yes MICROSCOPIC HEMATURIA: no UA DIPSTICK POSITIVE ONLY: no Other symptoms: LABS: No results found for: TESTOST No results found for: TESTFREE No results found for: PSA Hematocrit (%) Date Value 01/17/2022 42.6 09/30/2021 43.0 06/03/2021 42.2 03/29/2019 45.7 MEDICATIONS: nitrofurantoin monohydrate and macrocrystal (MACROBID) 100 mg capsule Take 1 capsule by mouth twicedaily for 5 days. nystatin (MYCOSTATIN) cream Apply to affected area twice daily for 14 days. ketoconazole (NIZORAL) 2 % shampoo SHAMPOO TWICE A WEEK DIRECTED mesalamine (ASACOL HD) 800 mg TbEC EC tablet Take 1 tablet by mouth twice daily. metFORMIN (GLUCOPHAGE) 500 mg tablet Take 1 tablet by mouth twice daily with meals. flecainide (TAMBOCOR) 50 mg tablet Take 1 tablet by mouth twice daily. prazosin (MINIPRESS) 2 mg cap Take 1 capsule by mouth twice daily. tiotropium-olodaterol (STIOLTO RESPIMAT) 2.5-2.5 mcg/actuation Inhale 2 Puffs as instructed once daily. furosemide (LASIX) 20 mg tablet Take 20mg daily and additional 20mg as needed for increased shortness or breath and/or legs swelling with weight gain greater than 3lbs fexofenadine (GURVINDER ALLERGY) 180 mg tablet Take 1 tablet by mouth once daily. clotrimazole-betamethasone (LOTRISONE) cream Apply 1 application to affected area twice daily. UNTIL CLEAR FOR UP TO 2-3 WEEKS potassium chloride ER (K-DUR, KLOR-CON) 20 mEq tablet Take 1 tablet by mouth once daily. atorvastatin (LIPITOR) 40 mg tablet Take 1 tablet by mouth once daily. metoprolol tartrate, short acting, (LOPRESSOR) 100 mg tablet Take 1 tablet by mouth twice daily. warfarin (COUMADIN) 2.5 mg tablet Take 1 tablet by mouth once daily. Or as directed (Patient takingdifferently: Take 2.5 mg by mouth once daily. 2.5 mg daily or as directed. Dr Gilman) diphenhydrAMINE (ANTIHISTAMINE) 25 mg tablet Take 1 tablet by mouth every 6 hours as needed. nystatin-triamcinolone (MYCOLOG II) cream Apply 1 application to affected area four times daily. (Patient not taking: Reported on 05/20/2022) Blood Pressure Monitor (BLOOD PRESSURE KIT) kit 1 Units once daily. (Patient not taking: Reported on 05/20/2022) PAST MEDICAL HISTORY: PAST MEDICAL HISTORY Diagnosis Date Arrhythmia Atrial flutter by electrocardiogram ([facility]) 12/15/2014 Benign essential tremor 09/20/2012 Blood dyscrasia Blood in stool Centrilobular emphysema ([facility]) 10/06/2015 Chronic renal insufficiency, stage III (moderate) ([facility]) 01/15/2015 Hyperlipidemia 09/26/2012 Hypertension Multiple lung nodules 02/12/2016 SILVER (obstructive sleep apnea) uses CPAP Osteoarthrosis, unspecified whether generalized or localized, other specified sites pilonidal cyst Snoring Type 2 diabetes mellitus with stage 3 chronic kidney disease, without long-term current use of insulin ([facility]) 04/27/2017 Ulcerative colitis, unspecified PAST SURGICAL HISTORY: PAST SURGICAL HISTORY Procedure Laterality Date ARTHROSCOPY KNEE DIAGNOSTIC W/WO SYNOVIAL BX SPX Arthroscopy, knee right ARTHRP ACETBLR/PROX FEM PROSTC AGRFT/ALGRFT 2002 Hip replacement, total right COLONOSCOPY FLX DX W/COLLJ SPEC WHEN PFRMD 12/31/2014 Colonoscopy COLONOSCOPY FLX DX W/COLLJ SPEC WHEN PFRMD 12/10/2015 Colonoscopy COLONOSCOPY FLX DX W/COLLJ SPEC WHEN PFRMD 03/01/2021 COLONOSCOPY W/BIOPSY SINGLE/MULTIPLE 03/06/2009 marcos colitis, worse rectum to 50cm EGD TRANSORAL BIOPSY SINGLE/MULTIPLE 03/06/2009 mild gastitis EXCISION PILONIDAL CYST/SINUS SIMPLE 90s Excision pilonidal cyst HEART SURGERY HX JOINT REPLACEMENT HX LIGJ DIVJ &/EXCJ 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 1 LEG 90s Varicose Vein Surgery TONSILLECTOMY HX TONSILLECTOMY PRIMARY/SECONDARY AGE 13/> 01/2006 T+A VASCULAR SURGERY PROCEDURE FAMILY HISTORY: FAMILY HISTORY Problem Relation Age of Onset Colon Cancer Mother 83/heart problems Coronary Artery Disease Father GI Sister crohns disease/sclerodermas other (IBS) Sister polmorplic arthritis Diabetes Sister Diabetes Brother kidney/liver disease/heart problems other (dystonia) Brother Niece/lymes disease SOCIAL HISTORY: Social Connections: Not on file REVIEW OF SYSTEMS: GENERAL: No fever, chills, weight loss, or fatigue. ENMT: Negative CARDIOVASCULAR:NO CHEST PAIN, PALPITATIONS, ANKLE EDEMA RESPIRATORY: No chronic cough, wheezing, dyspnea, hemoptysis. GENITOURINARY: SEE HPI MUSCULOSKELETAL:NO CHRONIC BACK PAIN, ARTHRITIS, CHRONIC NECK PAIN SKIN: NO 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S, RASH, ABNORMAL ITCHING HEME/LYMPH/IMMUNE:Negative for prolonged bleeding, bruising easily or swollen nodes NEUROLOGICAL: NO HEADACHES, NUMBNESS, SEIZURES, STROKE DIABETES: yes All other systems reviewed and are negative PHYSICAL EXAMINATION: Blood pressure 144/66, pulse 92, temperature 36.3 C (97.3 F), temperature source Temporal, height 175.3 cm (5' 9 ), weight 135.2 kg (298 lb), SpO2 95 %. GENERAL: WNL nutrition, no deformities, healthy appearing NEURO: Awake, alert and oriented x 3 and Normal gait PSYCH: No signs of depression, anxiety, or agitation ENMT (Ear, Nose, Mouth, Throat): No masses, adenopathy, icterus. Thyroid nonpalpable RESP: NL effort, no retractions or purse-lip breathing. CV: No extremity swelling, varices, edema, pallor, erythema GASTROINTESTINAL: Soft, nontender, nondistended, no masses. HERNIAS: None SKIN: No rash, lesions No palpable lymphadenopathy MUSCULOSKELETAL: Extremities normal. No deformities, edema, clubbing or skin discoloration. PROBLEM LIST REVIEW: Yes LABS: Results for orders placed or performed in visit on 05/20/22 UA DIP, URINE (POC) Result Value Ref Range GLUCOSE UA (POCT) Negative Negative mg/dL BILIRUBIN UA (POCT) Negative Negative KETONE UA (POCT) Negative Negative mg/dL SPECIFIC GRAVITY UA (POCT) >=1.030 1.005 - 1.030 HEMOGLOBIN/BLOOD UA (POCT) Moderate (A) Negative PH UA (POCT) 5.5 4.5 - 8.0 PROTEIN UA (POCT) 100 (A) Negative mg/dL UROBILINOGEN UA (POCT) 0.2 Normal E.U./dL NITRITE UA (POCT) Negative Negative LEUKOCYTES UA (POCT) Negative Negative COLOR UA (POCT) Dark yellow CLARITY UA (POCT) Clear Urine Culture: Pending Urine Cytology: Pending PROCEDURES: PVR: 0 ml IMAGING: CT Urogram - Phimosis IMPRESSION/PLAN: 77 year old male with . 1. Gross hematuria - ICD9: 599.71, ICD10: R31.0 > History of Gross Hematuria > CT Urogram scheduled at [facility] > Cystoscopy to scheduled at [facility] they will contact patient [phone] > Follow up after work-up if no bladder cancer found, will discuss further management I spent a total of 30 minutes on the date of the service which included preparing to see the patient, face to face patient care, completing clinical documentation, obtaining and/or reviewing separately obtained history, performing a medically appropriate examination, counseling and educating the pat ient/family/caregiver, ordering medications, tests, or procedures, and care coordination. VIKTORIYA Espinoza MT, PA-C * Mariela Laureano LPN - 05/20/2022 9:19 AM EDT Verified name and date of . CC Post Void Residual HPI: Oliverio Oshea is a 77 year old male. The patient is here now for an appointment with VIKTORIYA Espinoza MT, PA-COV. Procedure: Explained procedure to patient and verbalizes understanding. Performed a PVR. Patient urinated and instructed to empty bladder as much as possible just prior to having PVR done using bladder ultrasound scanner. Results of scan: 0 mL The patient tolerated the procedure well. Plan: Appointment with Viktoria. documented in this encounterCleveland [id number] Miscellaneous Notes* Telephone Encounter - Annmarie Mcdonald - 05/17/2022 12:08 PM EDT Patient given results and verbalized understanding of instructions given. Annmarie Tamara * Telephone Encounter - Jonathan Thornton APRN.CNP - 05/17/2022 11:44 AM EDT Please notify that the urine culture showed no infection. May continue taking the antibiotic if symptoms are improving. If symptoms persist/worsen f/u with primary care. Hematuria noted on ua, patient should have urine retested with pcp or urology in 2-4 weeks to see if persisting. documented in this encounterWilson Memorial Hospital10-10-2022 History of Present illness Narrative* Fahad South APRN.BRANDON - 05/16/2022 10:07 AM EDT Subjective HPI Nontoxic-appearing male presents urgent care chief complaint bloody urine. Duration of symptoms 2 days. Associated symptoms dysuria frequency blood in urine. Patient states he has been dealing with some discharge at the tip of his penis as well as slight swelling and itching. He has been having more difficulty retracting his foreskin over the glans of his penis. Denies history of UTIs or blood inurine in the past. Recently was discharged from the hospital for COVID- 19 the beginning of May.Denies any other concerns with today's chief complaint. Has not used any OTC medications. Denies any fever body aches chills nausea vomiting abdominal pain difficulty passing urine difficulty stream of urine testicular pain or swelling. Past medical history prescription medication use allergies reviewed. .Patient presents with: Hematuria: x 2 days PAST MEDICAL HISTORY Diagnosis Date Arrhythmia Atrial flutter by electrocardiogram ([facility]) 12/15/2014 Benign essential tremor 09/20/2012 Blood dyscrasia Blood in stool Centrilobular emphysema ([facility]) 10/06/2015 Chronic renal insufficiency, stage III (moderate) ([facility]) 01/15/2015 Hyperlipidemia 09/26/2012 Hypertension Multiple lung nodules 02/12/2016 SILVER (obstructive sleep apnea) uses CPAP Osteoarthrosis, unspecified whether generalized or localized, other specified sites pilonidal cyst Snoring Type 2 diabetes mellitus with stage 3 chronic kidney disease, without long-term current use of insulin ([facility]) 04/27/2017 Ulcerative colitis, unspecified PAST SURGICAL HISTORY Procedure Laterality Date ARTHROSCOPY KNEE DIAGNOSTIC W/WO SYNOVIAL BX SPX Arthroscopy, knee right ARTHRP ACETBLR/PROX FEM PROSTC AGRFT/ALGRFT 2002 Hip replacement, total right COLONOSCOPY FLX DX W/COLLJ SPEC WHEN PFRMD 12/31/2014 Colonoscopy COLONOSCOPY FLX DX W/COLLJ SPEC WHEN PFRMD 12/10/2015 Colonoscopy COLONOSCOPY FLX DX W/COLLJ SPEC WHEN PFRMD 03/01/2021 COLONOSCOPY W/BIOPSY SINGLE/MULTIPLE 03/06/2009 marcos colitis, worse rectum to 50cm EGD TRANSORAL BIOPSY SINGLE/MULTIPLE 03/06/2009 mild gastitis EXCISION PILONIDAL CYST/SINUS SIMPLE 90s Excision pilonidal cyst HEART SURGERY HX JOINT REPLACEMENT HX LIGJ DIVJ &/EXCJ 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 1 LEG 90s Varicose Vein Surgery TONSILLECTOMY HX TONSILLECTOMY PRIMARY/SECONDARY AGE 13/> 01/2006 T+A VASCULAR SURGERY PROCEDURE ALLERGIES Amlodipine, Azithromycin, and Penicillins MEDICATIONS ketoconazole (NIZORAL) 2 % shampoo SHAMPOO TWICE A WEEK DIRECTED mesalamine (ASACOL HD) 800 mg TbEC EC tablet Take 1 tablet by mouth twice daily. metFORMIN (GLUCOPHAGE) 500 mg tablet Take 1 tablet by mouth twice daily with meals. flecainide (TAMBOCOR) 50 mg tablet Take 1 tablet by mouth twice daily. prazosin (MINIPRESS) 2 mg cap Take 1 capsule by mouth twice daily. tiotropium-olodaterol (STIOLTO RESPIMAT) 2.5-2.5 mcg/actuation Inhale 2 Puffs as instructed once daily. furosemide (LASIX) 20 mg tablet Take 20mg daily and additional 20mg as needed for increased shortness or breath and/or legs swelling with weight gain greater than 3lbs fexofenadine (GURVINDER ALLERGY) 180 mg tablet Take 1 tablet by mouth once daily. clotrimazole-betamethasone (LOTRISONE) cream Apply 1 application to affected area twice daily. UNTIL CLEAR FOR UP TO 2-3 WEEKS potassium chloride ER (K-DUR, KLOR-CON) 20 mEq tablet Take 1 tablet by mouth once daily. atorvastatin (LIPITOR) 40 mg tablet Take 1 tablet by mouth once daily. metoprolol tartrate, short acting, (LOPRESSOR) 100 mg tablet Take 1 tablet by mouth twice daily. nystatin-triamcinolone (MYCOLOG II) cream Apply 1 application to affected area four times daily. warfarin (COUMADIN) 2.5 mg tablet Take 1 tablet by mouth once daily. Or as directed (Patient takingdifferently: Take 2.5 mg by mouth once daily. 2.5 mg daily or as directed. Dr Gilman) Blood Pressure Monitor (BLOOD PRESSURE KIT) kit 1 Units once daily. diphenhydrAMINE (ANTIHISTAMINE) 25 mg tablet Take 1 tablet by mouth every 6 hours as needed. FAMILY HISTORY Problem Relation Age of Onset Colon Cancer Mother 83/heart problems Coronary Artery Disease Father GI Sister crohns disease/sclerodermas other (IBS) Sister polmorplic arthritis Diabetes Sister Diabetes Brother kidney/liver disease/heart problems other (dystonia) Brother Niece/lymes disease Social History Tobacco Use Smoking status: Former Packs/day: 0.50 Years: 35.00 Pack years: 17.50 Types: Cigarettes Quit date: 06/07/2013 Years since quittin.9 Smokeless tobacco: Never Vaping Use Vaping Use: Never used Substance Use Topics Alcohol use: No Alcohol/week: 10.0 standard drinks Comment: ocas Drug use: No BP 122/62 Pulse 88 Temp 37.1 C (98.7 F) Resp 18 Wt 134.7 kg (297 lb) SpO2 95% BMI 43.86kg/m Review of Systems Constitutional: Negative for chills, fever and malaise/fatigue. HENT: Negative for congestion, ear discharge, ear pain, sinus pain and sore throat. Eyes: Negative for blurred vision, pain, discharge and redness. Respiratory: Negative for cough, hemoptysis, sputum production, shortness of breath, wheezing and stridor. Cardiovascular: Negative for chest pain. Gastrointestinal: Negative for abdominal pain, diarrhea, nausea and vomiting. Genitourinary: Positive for dysuria, frequency, hematuria and urgency. Negative for flank pain. Musculoskeletal: Negative for myalgias. Skin: Negative for itching and rash. Neurological: Negative for dizziness and headaches. Objective Physical Exam Constitutional: General: He is not in acute distress. Appearance: He is not diaphoretic. HENT: Head: Normocephalic. Mouth/Throat: Mouth: Mucous membranes are moist. Pharynx: Oropharynx is clear. No oropharyngeal exudate or posterior oropharyngeal erythema. Eyes: Conjunctiva/sclera: Conjunctivae normal. Pupils: Pupils are equal, round, and reactive to light. Cardiovascular: Rate and Rhythm: Normal rate and regular rhythm. Heart sounds: Normal heart sounds. Pulmonary: Effort: Pulmonary effort is normal. No tachypnea, accessory muscle usage or respiratory distress. Breath sounds: Normal breath sounds. No stridor. No wheezing, rhonchi or rales. Abdominal: Palpations: Abdomen is soft. Tenderness: There is no abdominal tenderness. There is no guarding or rebound. Genitourinary: Penis: Uncircumcised. Phimosis and swelling present. Comments: Partial glans of penis was visible. Unable to fully retract foreskin. Slight redness noted glans of penis. Thick white discharge noted glans of penis. Musculoskeletal: Cervical back: Normal range of motion and neck supple. No rigidity or tenderness. Lymphadenopathy: Cervical: No cervical adenopathy. Skin: General: Skin is warm and dry. Neurological: Mental Status: He is alert and oriented to person, place, and time. ASSESSMENT/PLAN: 1. Gross hematuria - ICD9: 599.71, ICD10: R31.0 - UA DIP, URINE (POC) - URINE CULTURE - CONSULT TO UROLOGY Blood leukocytes protein noted in urine. Patient will be placed on Macrobid. Creatinine clearance 90. Phimosis was noted on examination. Patient able to urinate without difficulties. No pain. Patientwill follow-up with urology. Will use nystatin cream for possible fungal infection. Patient was educated on supportive therapies. Patient will follow up with primary care provider as needed. Patient was instructed to immediately proceed to emergency room for any new, worsening, or symptoms lasting longer than anticipated. The patient's clinical presentation is otherwise unremarkable at this time.Based on exam and clinical finding, the patient is stable for discharge. Plan of care was discussedwith patient. Patient verbalizes understanding and agrees to plan of care. This note was generated using [employer] software. It may contain errors in wording, punctuation, or spelling. Fahad South APRN.BRANDON documented in this encounterWilson Memorial Hospital10-05-2022 History of Present illness Narrative* Lydia Gonzalez APRN.BRANDON - 05/11/2022 1:10 PM EDT This is a 77 year old male who presents today with: Patient presents with: [facility] [facility] dx: covid HISTORY OF PRESENT ILLNESS: Oliverio Oshea is a 77 year old male. Patient presents with: Hospital Follow Up: [facility] 05/04 dx: covid Discharged on 05/04 from [facility]. Refers that this was the 2nd admission for covid. Per ER records, patient was admitted on 05/02/2022 due to weakness. He had acute hypoxia secondary to YAGDG-tgspehzye-icovjiayu pneumonia ruled out. He was 88% on room air and initially required 2 to 3 L of oxygen. He was started on a 10- day course of Decadron. He was able to be titrated off the oxygen and did not require any home O2. He had some acute kidney injury secondary to dehydration. His discharge serum creatinine was back to baseline. He has one final dose of decadron to take. Refers that breathing is still labored but improved. Covid kicked my butt He has COPD and follows w/ pulmonology. He uses 2L of O2 w/ CPAP at night. Has cough that is sometimes productive. Refers not as weak. Refers that he could hardly walk when he went to the ER. He is eating and drinking. Denies CP/palpitations. Urinating adequately. Moving bowels. No hematochezia/melena. No fevers/chills. No pain. PAST MEDICAL HISTORY: PAST MEDICAL HISTORY Diagnosis Date Arrhythmia Atrial flutter by electrocardiogram (FORM[facility]) 12/15/2014 Benign essential tremor 09/20/2012 Blood dyscrasia Blood in stool Centrilobular emphysema ([facility]) 10/06/2015 Chronic renal insufficiency, stage III (moderate) ([facility]) 01/15/2015 Hyperlipidemia 09/26/2012 Hypertension Multiple lung nodules 02/12/2016 SILVER (obstructive sleep apnea) uses CPAP Osteoarthrosis, unspecified whether generalized or localized, other specified sites pilonidal cyst Snoring Type 2 diabetes mellitus with stage 3 chronic kidney disease, without long-term current use of insulin ([facility]) 04/27/2017 Ulcerative colitis, unspecified PAST SURGICAL HISTORY Procedure Laterality Date ARTHROSCOPY KNEE DIAGNOSTIC W/WO SYNOVIAL BX SPX Arthroscopy, knee right ARTHRP ACETBLR/PROX FEM PROSTC AGRFT/ALGRFT 2002 Hip replacement, total right COLONOSCOPY FLX DX W/COLLJ SPEC WHEN PFRMD 12/31/2014 Colonoscopy COLONOSCOPY FLX DX W/COLLJ SPEC WHEN PFRMD 12/10/2015 Colonoscopy COLONOSCOPY FLX DX W/COLLJ SPEC WHEN PFRMD 03/01/2021 COLONOSCOPY W/BIOPSY SINGLE/MULTIPLE 03/06/2009 marcos colitis, worse rectum to 50cm EGD TRANSORAL BIOPSY SINGLE/MULTIPLE 03/06/2009 mild gastitis EXCISION PILONIDAL CYST/SINUS SIMPLE 90s Excision pilonidal cyst HEART SURGERY HX JOINT REPLACEMENT HX LIGJ DIVJ &/EXCJ 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 1 LEG 90s Varicose Vein Surgery TONSILLECTOMY HX TONSILLECTOMY PRIMARY/SECONDARY AGE 13/> 01/2006 T+A VASCULAR SURGERY PROCEDURE ALLERGIES Amlodipine, Azithromycin, and Penicillins MEDICATIONS Current Outpatient Medications Medication Sig ketoconazole (NIZORAL) 2 % shampoo SHAMPOO TWICE A WEEK DIRECTED mesalamine (ASACOL HD) 800 mg TbEC EC tablet Take 1 tablet by mouth twice daily. metFORMIN (GLUCOPHAGE) 500 mg tablet Take 1 tablet by mouth twice daily with meals. flecainide (TAMBOCOR) 50 mg tablet Take 1 tablet by mouth twice daily. prazosin (MINIPRESS) 2 mg cap Take 1 capsule by mouth twice daily. tiotropium-olodaterol (STIOLTO RESPIMAT) 2.5-2.5 mcg/actuation Inhale 2 Puffs as instructed once daily. furosemide (LASIX) 20 mg tablet Take 20mg daily and additional 20mg as needed for increased shortness or breath and/or legs swelling with weight gain greater than 3lbs fexofenadine (GURVINDER ALLERGY) 180 mg tablet Take 1 tablet by mouth once daily. clotrimazole-betamethasone (LOTRISONE) cream Apply 1 application to affected area twice daily. UNTIL CLEAR FOR UP TO 2-3 WEEKS potassium chloride ER (K-DUR, KLOR-CON) 20 mEq tablet Take 1 tablet by mouth once daily. atorvastatin (LIPITOR) 40 mg tablet Take 1 tablet by mouth once daily. metoprolol tartrate, short acting, (LOPRESSOR) 100 mg tablet Take 1 tablet by mouth twice daily. nystatin-triamcinolone (MYCOLOG II) cream Apply 1 application to affected area four times daily. warfarin (COUMADIN) 2.5 mg tablet Take 1 tablet by mouth once daily. Or as directed (Patient takingdifferently: Take 2.5 mg by mouth once daily. 2.5 mg daily or as directed. Dr Gilman) Blood Pressure Monitor (BLOOD PRESSURE KIT) kit 1 Units once daily. diphenhydrAMINE (ANTIHISTAMINE) 25 mg tablet Take 1 tablet by mouth every 6 hours as needed. No current facility-administered medications for this visit. FAMILY HISTORY Problem Relation Age of Onset Colon Cancer Mother 83/heart problems Coronary Artery Disease Father GI Sister crohns disease/sclerodermas other (IBS) Sister polmorplic arthritis Diabetes Sister Diabetes Brother kidney/liver disease/heart problems other (dystonia) Brother Niece/lymes disease Social History Tobacco Use Smoking status: Former Packs/day: 0.50 Years: 35.00 Pack years: 17.50 Types: Cigarettes Quit date: 06/07/2013 Years since quittin.9 Smokeless tobacco: Never Vaping Use Vaping Use: Never used Substance Use Topics Alcohol use: No Alcohol/week: 10.0 standard drinks Comment: ocas Drug use: No EXAM: BP 138/82 Pulse (!) 49 Resp 18 Wt 133.4 kg (294 lb) SpO2 97% BMI 43.42 kg/m PHYSICAL EXAM: General Appearance: Well appearing, alert, in no acute distress, well-hydrated, well nourished.. Skin: Skin color, texture, turgor normal, no suspicious rashes or lesions. Head: Normocephalic, no masses, lesions, tenderness or abnormalities. Eyes: Anicteric sclera. Extraocular movements are intact. . Neck: Supple, no adenopathy; thyroid symmetric, normal size, no bruits. Lungs: Lungs clear to auscultation. No wheezing, rhonchi, rales.. Heart: RRR without murmur, gallop, or rubs. No ectopy. Extremities: No deformities, edema, skin discoloration, clubbing or cyanosis. Good capillary refill. . Neurologic: Gait normal. ASSESSMENT/PLAN: 1. COVID-19 - ICD9: 079.89, ICD10: U07.1 Improved after recent hospitalization. Has one dose of Decadron remaining. Breathing is improved. He follows with pulmonology due to COPD. He follows with cardiology for A. fib and CHF. He admits that he is overdue for an INR which he reports he will get checked later this week. Discussed treatment plan and patient voices understanding. Patient's questions answered appropriately. Medications and potential side effects were discussed and patient voices understanding. Return to the office as scheduled or as needed for worsening/no improvement. Lydia Gonzalez APRN.BRANDON This note was partially generated using [employer] voice recognition system. Note was reviewed for accuracy. There may be minor misspellings or grammar miscues with [employer] voice recognition. documented in this encounterWilson [facility]22 Miscellaneous Notes* Telephone Encounter - Josefa Zaragoza LPN - 04/27/2022 3:13 PM EDT Cough minimally productive. Weakness and tired. No fever. No more shortness of breath than usual. Patient is supposed to go back to work on Monday and wasn't sure if that was ok. Explained that he could if his symptoms has improved. Also advised him that should wear mask for 10 days. States that works for [employer] and they all mask anyway. Patient not sure he feels ready to go back. Told him that everyone recovers differently and he may need more time. Patient offered appt or to be seenin urgent care. He is going to continue to monitor symptoms and let us know. Was advised though that testing again is not needed and he understands this. * Telephone Encounter - Annmarie Stokes - 04/27/2022 1:20 PM EDT Patient called stating he tested positive for Covid on Monday. He is asking if he should be retested after a week prior to going back into public. Please advise. documented in this encounterWilson [facility] Hospital09-19-2022 Miscellaneous Notes* Telephone Encounter - Meg Andujar RN - 04/25/2022 10:23 AM EDT Patient further triaged per office request. Patient states he was seen at [facility] ER yesterday and was informed he had covid. He was ordered Paxlovid and other mediations for symptom management. He reports slight improvement in overall symptoms today but wanted to review CDC guidelines again. Guidelines reviewed. Red flag symptoms were also reviewed as to when to see ER. Meg Andujar RN * Telephone Encounter - Laurel Stokes - 04/25/2022 9:24 AM EDT Oliverio Oshea is calling M Darline Combs PA-C today with concern regarding COVID positive. Patient has been identified by name and birthdate. Duration of symptoms: days Person calling: self Call patient at: at home [phone] (home) Was an appointment scheduled: No Patient stated that he was diagnosed with COVID yesterday. Would like direction on protocols/symptoms. Closing statement: Symptom Call: Thank you for calling [facility], your call is very important. A nurse will call in approximately 2-4 hours during business hours. If this is an emergency, please contact 911. Laurel Stokes documented in this encounterWilson [facility] Hospital09-19-2022 Miscellaneous Notes* Telephone Encounter - John Car LPN - 04/25/2022 9:51 AM EDT Pt has enough refills to last until July. * Telephone Encounter - Laurel Marie Pss - 04/25/2022 9:22 AM EDT Patient stated he has no refills left. I told him he should have enough medication until July. * Telephone Encounter - Laurel Marie Pss - 04/25/2022 9:22 AM EDT Patient has been identified by name and date of : Yes Requested Prescriptions Pending Prescriptions Disp Refills metoprolol tartrate, short acting, (LOPRESSOR) 100 mg tablet 180 tablet 3 Sig: Take 1 tablet by mouth twice daily. RX INSTRUCTIONS: Patient aware RX will be sent to pharmacy. No need to notify patient. Laurelmarcio Salazar Pss documented in this encounterWilson Memorial Hospital08-10-2022 Miscellaneous Notes* Addendum Note - Martha Marcus MD - 03/16/2022 2:47 PM EDTAddended by: MARTHA MARCUS on: 03/16/2022 02:47 PM Modules accepted: Orders documented in this [facility]08-10-2022 Instructions* Patient Instructions* Martha Marcus MD - 03/16/2022 2:42 PM EDT Images from the original note were not included. documented in this [facility]08-10-2022 History of Present illness Narrative* Martha Marcus MD - 03/16/2022 2:39 PM EDT Assessment and Plan 1. Type 2 diabetes mellitus with both eyes affected by mild nonproliferative retinopathy without macular edema, without long-term current use of insulin (HCC) -mild 2. Combined form of age-related cataract, both eyes -s/p cataract extraction with intraocular lens implantation right eye -looks good Plan: -Continue blood sugar and blood pressure control -drops per protocol -precautions -back to Dr. Tellez afterwards for routine care I have confirmed and edited as necessary the relevant ophthalmic history, ROS, and the neuro exam findings as obtained by others. I have seen and examined Oliverio Oshea. I have discussed the case and the management of this patient's care with the Resident/Fellow, if applicable. I also have reviewed and agree with the assessment and plan as stated above and agree withall of its relevant components. Martha Marcus MD documented in this encounterWilson Memorial Hospital08-09-2022 History of Past illness Narrative* Problem Noted Date Resolved Date Combined form of age-related cataract, both eyes 03/15/2022 03/15/2022 Personal history of colonic polyps 03/01/2021 03/01/2021 Chronic diastolic CHF (congestive heart failure) 04/01/2019 02/13/2022 Chronic ulcerative enterocolitis 12/10/2015 12/10/2015 Chronic anticoagulation 06/19/2015 02/23/20 16 Hemorrhage of gastrointestinal tract, unspecifie d 12/31/2014 12/31/2014 Atrial flutter by electrocardiogram 12/15/2014 02/23/2016 Acute gastritis without mention of hemorrhage 02/23/2016 Blood in stool 03/02/2009 02/23/2016 Diverticulitis of colon (without mention of hemo rrhage) 04/24/2006 02/23/2016 Unspecified constipation 04/05/2006 016 documented as of this encounter (statuses as of 03/16/2022) [facility] of Past illness Narrative* Problem Noted Date Resolved Date Combined form of age-related cataract, both eyes 03/15/2022 03/15/2022 Personal history of colonic polyps 03/01/2021 03/01/2021 Chronic diastolic CHF (congestive heart failure) 04/01/2019 02/13/2022 Chronic ulcerative enterocolitis 12/10/2015 12/10/2015 Chronic anticoagulation 06/19/2015 02/23/20 16 Hemorrhage of gastrointestinal tract, unspecifie d 12/31/2014 12/31/2014 Atrial flutter by electrocardiogram 12/15/2014 02/23/2016 Acute gastritis without mention of hemorrhage 02/23/2016 Blood in stool 03/02/2009 02/23/2016 Diverticulitis of colon (without mention of hemo rrhage) 04/24/2006 02/23/2016 Unspecified constipation 04/05/2006 016 documented as of this encounter (statuses as of 03/16/2022) [facility] of Past illness Narrative* Problem Noted Date Resolved Date Combined form of age-related cataract, both eyes 03/15/2022 03/15/2022 Personal history of colonic polyps 03/01/2021 03/01/2021 Chronic diastolic CHF (congestive heart failure) 04/01/2019 02/13/2022 Chronic ulcerative enterocolitis 12/10/2015 12/10/2015 Chronic anticoagulation 06/19/2015 02/23/20 16 Hemorrhage of gastrointestinal tract, unspecifie d 12/31/2014 12/31/2014 Atrial flutter by electrocardiogram 12/15/2014 02/23/2016 Acute gastritis without mention of hemorrhage 02/23/2016 Blood in stool 03/02/2009 02/23/2016 Diverticulitis of colon (without mention of hemo rrhage) 04/24/2006 02/23/2016 Unspecified constipation 04/05/2006 016 documented as of this encounter (statuses as of 04/25/2022) [facility] of [facility] Narrative* Problem Noted Date Resolved Date Combined form of age-related cataract, both eyes 03/15/2022 03/15/2022 Personal history of colonic polyps 03/01/2021 03/01/2021 Chronic diastolic CHF (congestive heart failure) 04/01/2019 02/13/2022 Chronic ulcerative enterocolitis 12/10/2015 12/10/2015 Chronic anticoagulation 06/19/2015 02/23/20 16 Hemorrhage of gastrointestinal tract, unspecifie d 12/31/2014 12/31/2014 Atrial flutter by electrocardiogram 12/15/2014 02/23/2016 Acute gastritis without mention of hemorrhage 02/23/2016 Blood in stool 03/02/2009 02/23/2016 Diverticulitis of colon (without mention of hemo rrhage) 04/24/2006 02/23/2016 Unspecified constipation 04/05/2006 016 documented as of this encounter (statuses as of 04/28/2022) [facility] of [facility] Narrative* Problem Noted Date Resolved Date Combined form of age-related cataract, both eyes 03/15/2022 03/15/2022 Personal history of colonic polyps 03/01/2021 03/01/2021 Chronic diastolic CHF (congestive heart failure) 04/01/2019 02/13/2022 Chronic ulcerative enterocolitis 12/10/2015 12/10/2015 Chronic anticoagulation 06/19/2015 02/23/20 16 Hemorrhage of gastrointestinal tract, unspecifie d 12/31/2014 12/31/2014 Atrial flutter by electrocardiogram 12/15/2014 02/23/2016 Acute gastritis without mention of hemorrhage 02/23/2016 Blood in stool 03/02/2009 02/23/2016 Diverticulitis of colon (without mention of hemo rrhage) 04/24/2006 02/23/2016 Unspecified constipation 04/05/2006 016 documented as of this encounter (statuses as of 05/11/2022) [facility] Narrative* Problem Noted Date Resolved Date Combined form of age-related cataract, both eyes 03/15/2022 03/15/2022 Personal history of colonic polyps 03/01/2021 03/01/2021 Chronic diastolic CHF (congestive heart failure) 04/01/2019 02/13/2022 Chronic ulcerative enterocolitis 12/10/2015 12/10/2015 Chronic anticoagulation 06/19/2015 02/23/20 16 Hemorrhage of gastrointestinal tract, unspecifie d 12/31/2014 12/31/2014 Atrial flutter by electrocardiogram 12/15/2014 02/23/2016 Acute gastritis without mention of hemorrhage 02/23/2016 Blood in stool 03/02/2009 02/23/2016 Diverticulitis of colon (without mention of hemo rrhage) 04/24/2006 02/23/2016 Unspecified constipation 04/05/2006 016 documented as of this encounter (statuses as of 05/16/2022) [facility] Narrative* Problem Noted Date Resolved Date Combined form of age-related cataract, both eyes 03/15/2022 03/15/2022 Personal history of colonic polyps 03/01/2021 03/01/2021 Chronic diastolic CHF (congestive heart failure) 04/01/2019 02/13/2022 Chronic ulcerative enterocolitis 12/10/2015 12/10/2015 Chronic anticoagulation 06/19/2015 02/23/20 16 Hemorrhage of gastrointestinal tract, unspecifie d 12/31/2014 12/31/2014 Atrial flutter by electrocardiogram 12/15/2014 02/23/2016 Acute gastritis without mention of hemorrhage 02/23/2016 Blood in stool 03/02/2009 02/23/2016 Diverticulitis of colon (without mention of hemo rrhage) 04/24/2006 02/23/2016 Unspecified constipation 04/05/2006 016 documented as of this encounter (statuses as of 05/17/2022) [facility] Narrative* Problem Noted Date Resolved Date Combined form of age-related cataract, both eyes 03/15/2022 03/15/2022 Personal history of colonic polyps 03/01/2021 03/01/2021 Chronic diastolic CHF (congestive heart failure) 04/01/2019 02/13/2022 Chronic ulcerative enterocolitis 12/10/2015 12/10/2015 Chronic anticoagulation 06/19/2015 02/23/20 16 Hemorrhage of gastrointestinal tract, unspecifie d 12/31/2014 12/31/2014 Atrial flutter by electrocardiogram 12/15/2014 02/23/2016 Acute gastritis without mention of hemorrhage 02/23/2016 Blood in stool 03/02/2009 02/23/2016 Diverticulitis of colon (without mention of hemo rrhage) 04/24/2006 02/23/2016 Unspecified constipation 04/05/2006 016 documented as of this encounter (statuses as of 05/20/2022) [facility] Narrative* Problem Noted Date Resolved Date Combined form of age-related cataract, both eyes 03/15/2022 03/15/2022 Personal history of colonic polyps 03/01/2021 03/01/2021 Chronic diastolic CHF (congestive heart failure) 04/01/2019 02/13/2022 Chronic ulcerative enterocolitis 12/10/2015 12/10/2015 Chronic anticoagulation 06/19/2015 02/23/20 16 Hemorrhage of gastrointestinal tract, unspecifie d 12/31/2014 12/31/2014 Atrial flutter by electrocardiogram 12/15/2014 02/23/2016 Acute gastritis without mention of hemorrhage 02/23/2016 Blood in stool 03/02/2009 02/23/2016 Diverticulitis of colon (without mention of hemo rrhage) 04/24/2006 02/23/2016 Unspecified constipation 04/05/2006 016 documented as of this encounter (statuses as of 05/23/2022) [facility] Narrative* Problem Noted Date Resolved Date Combined form of age-related cataract, both eyes 03/15/2022 03/15/2022 Personal history of colonic polyps 03/01/2021 03/01/2021 Chronic diastolic CHF (congestive heart failure) 04/01/2019 02/13/2022 Chronic ulcerative enterocolitis 12/10/2015 12/10/2015 Chronic anticoagulation 06/19/2015 02/23/20 16 Hemorrhage of gastrointestinal tract, unspecifie d 12/31/2014 12/31/2014 Atrial flutter by electrocardiogram 12/15/2014 02/23/2016 Acute gastritis without mention of hemorrhage 02/23/2016 Blood in stool 03/02/2009 02/23/2016 Diverticulitis of colon (without mention of hemo rrhage) 04/24/2006 02/23/2016 Unspecified constipation 04/05/2006 016 documented as of this encounter (statuses as of 06/08/2022) [facility] Narrative* Problem Noted Date Resolved Date Combined form of age-related cataract, both eyes 03/15/2022 03/15/2022 Personal history of colonic polyps 03/01/2021 03/01/2021 Chronic diastolic CHF (congestive heart failure) 04/01/2019 02/13/2022 Chronic ulcerative enterocolitis 12/10/2015 12/10/2015 Chronic anticoagulation 06/19/2015 02/23/20 16 Hemorrhage of gastrointestinal tract, unspecifie d 12/31/2014 12/31/2014 Atrial flutter by electrocardiogram 12/15/2014 02/23/2016 Acute gastritis without mention of hemorrhage 02/23/2016 Blood in stool 03/02/2009 02/23/2016 Diverticulitis of colon (without mention of hemo rrhage) 04/24/2006 02/23/2016 Unspecified constipation 04/05/2006 016 documented as of this encounter (statuses as of 06/15/2022) [facility] Narrative* Problem Noted Date Resolved Date Combined form of age-related cataract, both eyes 03/15/2022 03/15/2022 Personal history of colonic polyps 03/01/2021 03/01/2021 Chronic diastolic CHF (congestive heart failure) 04/01/2019 02/13/2022 Chronic ulcerative enterocolitis 12/10/2015 12/10/2015 Chronic anticoagulation 06/19/2015 02/23/20 16 Hemorrhage of gastrointestinal tract, unspecifie d 12/31/2014 12/31/2014 Atrial flutter by electrocardiogram 12/15/2014 02/23/2016 Acute gastritis without mention of hemorrhage 02/23/2016 Blood in stool 03/02/2009 02/23/2016 Diverticulitis of colon (without mention of hemo rrhage) 04/24/2006 02/23/2016 Unspecified constipation 04/05/2006 016 documented as of this encounter (statuses as of 08/11/2022) [facility] Narrative* Problem Noted Date Resolved Date Combined form of age-related cataract, both eyes 03/15/2022 03/15/2022 Personal history of colonic polyps 03/01/2021 03/01/2021 Chronic diastolic CHF (congestive heart failure) 04/01/2019 02/13/2022 Chronic ulcerative enterocolitis 12/10/2015 12/10/2015 Chronic anticoagulation 06/19/2015 02/23/20 16 Hemorrhage of gastrointestinal tract, unspecifie d 12/31/2014 12/31/2014 Atrial flutter by electrocardiogram 12/15/2014 02/23/2016 Acute gastritis without mention of hemorrhage 02/23/2016 Blood in stool 03/02/2009 02/23/2016 Diverticulitis of colon (without mention of hemo rrhage) 04/24/2006 02/23/2016 Unspecified constipation 04/05/2006 016 documented as of this encounter (statuses as of 08/16/2022) [facility] Narrative* Problem Noted Date Resolved Date Combined form of age-related cataract, both eyes 03/15/2022 03/15/2022 Encounter for support and coordination of transi tion of care 11/05/2021 08/17/2022 Overview: Hospital discharge summary Facility: [facility] Date of admission: 05/02/2022 Date of discharge: Preadmission details: 04/24/2022 presented [facility] with complaint of dyspnea on exertion negative for orthopnea moderate in severity with exertional cough. Vital signs: 100.6-61-15-127/55-90% RA identified on exam is no acute distress with normal respiratory effort, otherwise fairly normal. CBC: WBC 7.0-Hgb 12.7-HCT 39.8-PLT 141 with neutrophil percent 75.7, lymphs percent 12.4 low. Chemistries within normal limits except BUN 15-CRE 1.51 with EGFR 48- GLU 143-calcium 8.2-total bilirubin 9.50-albumin 3.1-albumin globulin ratio 0.8. Lactic acid normal at 1.4. BNP 106.1 slightly elevated. UA demonstrated 1+ bilirubin, 4+ urobilinogen, 5-10 RBCs, 10-25 WBCs, 2+ bacteria, coarse granular casts 5-10. Chest x-ray no acute findings. EKG normal sinus rhythm with no injury pattern. Patient was discharged on dexamethasone 6 mg daily #6/0, doxycycline 100 mg p.o. twice daily #20/0, and multiple are 200 mg 800 mg every 12 hours x5 days 05/02/2022 presented [facility] with significant history of tremors, COPD, sleep apnea, CPAP, atrial fibrillation on flecainide, warfare and therapy with 2-week history of progressive weakness. Productive cough thick yellow sputum. Wheezes. Tested positive for COVID 19 9017 2021, with O2 saturation of 88% requiring supplemental oxygen. also tested positive for COVID and reportedly passed out while he was in the emergency department. Physical exam: Vital signs 96.5H-32-80-126/41-95% RA. Identified as well- developed and nourished, bradycardia, otherwise within normal limits. Labwork: CBC and chemistry profiles were unremarkable except for BUN of 36-CR of 1.89-GLU 165-bilirubin 1.10-AST 48-CA 8.3-albumin 2.5 with albumin/globulin ratio 0.6-BNP 207.5. Chest x-ray demonstrated diffuse interstitial coarsening consistent with COPD, nonspecific hazy opacification left lower lung which could represent collapsed airspace Admitted to Dr. Brandon Michel PCU Admission assessment and plan: 1. COVID-19 pneumonia with hypoxia: Started on Decadron in emergency which will be continued, Imodium as needed for diarrhea, Mucinex, or to as needed. Started on azithromycin and ceftriaxone in the emergency department, patient has listed allergy to azithromycin with diarrhea stopped azithromycin. Switch to Levaquin dosed per creatinine clearance. Strep pneumonia and lesion Urine antigens ordered. 2. CHRISTOPHER on CKD stage III 80 likely from diabetic neuropathy and hypertensive nephrosclerosis, baseline creatinine 1.35. Given saline bolus. Trend BMP and avoid nephrotoxins. 3. Paroxysmal atrial fibrillation with bradycardia: Monitor on telemetry, flecainide and metoprolol continued. INR is subtherapeutic on presentation, warfarin adjusted, trend INR 4. Chronic heart failure with preserved ejection fraction with echo 11/01/2021 showing estimated ejection fraction 55% with no diastolic dysfunction. Hold Lasix in setting of CHRISTOPHER 5. Diabetes mellitus: Blood glucose stable, hold metformin, initiate Accu-Cheks with coverage. 6. DVT prophylaxis. Hospital discharge summary: Facility: [facility] Date of admission: 10/31/2021 Date of discharge: Preadmission details: 10/31/2021 patient presented with [facility] emergency department with complaint of shortness of breath, chills, weakness, gradual onset, moderate severity. No measured fever. Patient has history of lung cancer finishing radiation 3 months ago, not currently on chemotherapy. Vital signs 97.8-88-16-130/88-97% room air. Described as well-developed, no acute distress. CBC: WNL, CMP WNL except BUN 21-CRE 1.33-GFR 56, glucose 132, calcium 8.3, albumin 3.0, globulin 4.6. Lactic acid normal 1.9. BNP normal 57.5. Urine within normal limits except 5-10 RBCs, 0-5 WBCs, rare bacteria. Chest x-ray demonstrated mild cardiomegaly with borderline heart failure, no active cardiopulmonary disease otherwise, mild hyperinflation, benign calcification in the right hilar and right infrahilar lesions, mild demineralization. EKG demonstrated normal sinus rhythm, no acute ST or T wave changes, first-degree AV block. Patient did desaturate to 89% while sitting in bed, placed on nasal cannula 2 L, with movement patient sat dropped again to 87%. Patient discussed with hospitalist and recommendation for observation. Hospital course: Patient admitted to PCU. Assessment and plan: 1. Acute on chronic HFpEF/diastolic heart failure exacerbation factor unclear. Possibly related nonadherence to fluid restrictions. And fluid restriction 1500 cc, daily weights, monitor renal and electrolyte function, troponin and 2D echo ordered. Duplex of lower extremity ordered due to edema right greater than left to rule out DVT. 2. 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 Umu Venegas. No overt evidence of pneumonia or COPD. Blood cultures x2 ordered. Bronchodilator every 6 hours, incentive spirometry and PEP for hygiene. Mention is made of non-small cell lung cancer diagnosed via bronchoscopic wash [facility]. 3. Paroxysmal atrial fibrillation status post ablation, oropharyngeal 3. Continue warfarin, metoprolol and flecainide. 4. Diabetes mellitus type 2 blood sugars, Humalog sliding scale, hold Metformin Dyslipidemia fasting profile in a.m.Atorvastatin 6. Ulcerative colitis on mesalamine 7. Chronic kidney disease stage III AAA, monitor electrolytes, started diuretic IV furosemide 8. Other multiple comorbidities including morbid obesity, cardiac smoker of 30 pack years. 9. DVT prophylaxis: Continue warfarin. 10. Opted for full code. 11/01/2021 ultrasound bilateral lower extremity showed no DVT 11/01/2021: Echocardiogram with contrast: LV size and LV SF WNL, ejection fraction 65%, no diastolic dysfunction, no regional wall motion abnormalities. RV normal size and RV SF. Left and right atrium normal size, no ASD. Mild focal mitral valve calcification anterior leaflet, mild HI. TV: No stenosis, unable to estimate RSVP. AV: Mild diffuse aortic valve thickening, no stenosis. Pulmonic valve WNL. Normal aortic root, no pericardial effusion. Additional labs: 11/02/2021 WBC 10.3-Hgb 13.4-HCT 40.8-PLT 169. 11/03/2021 sodium 136-CL 103-K4.1-CO2 25.0-BUN 37-CRE 1.43-glucose 269-EGFR 51. 11/01/2021 blood culture x2 no growth left and right hand. Sputum culture expectorated x2: Mixed baljinder, no Streptococcus or Staphylococcus isolated. Urine culture no growth, Legionella and Streptococcus pneumonia antigens negative. SARS Covid and flu test negative. Patient diagnosis was transition from congestive heart failure COPD based on findings. Antibiotics do not seem to be warranted. He improved over 48 hours with initiation of steroids and was weaned from 4 L to 0 over that timeframe. Patient saturations remained above 90% did not qualify for home oxygen. Pulmonology was consulted, recommend initiation of Anoro Ellipta as well as prednisone taper on discharge. Was found to have right-sided candidiasis in the axilla, initiate nystatin powder with good improvement. Discharged in stable condition. Patient is to follow-up with Dr. Gillespie regards to lung cancer in February and follow-up with me in 2 weeks. Discharge diagnoses: As above. Medication reconciliation: New medications: Nystatin 1000 units/g powder 1 application twice daily 15/0 Anoro Ellipta 62.5-25 MCG per actuation blister device: 1 inhalation every 24 hours, 60/0 Prednisone 10 mg daily #30/0 Other medications were continued without change. Follow-up scheduled 01/11/[address] Vikram Easton pulmonology Appointments to be scheduled with Dr. Amezcua Appointment with me for 03/26/2022 Personal history of colonic polyps 03/01/2021 03/01/2021 Chronic diastolic CHF (congestive heart failure) 04/01/2019 02/13/2022 Chronic ulcerative enterocolitis 12/10/2015 12/10/2015 Chronic anticoagulation 06/19/2015 02/23/20 16 Hemorrhage of gastrointestinal tract, unspecifie d 12/31/2014 12/31/2014 Atrial flutter by electrocardiogram 12/15/2014 02/23/2016 Acute gastritis without mention of hemorrhage 02/23/2016 Blood in stool 03/02/2009 02/23/2016 Diverticulitis of colon (without mention of hemo rrhage) 04/24/2006 02/23/2016 Unspecified constipation 04/05/2006 016 documented as of this encounter (statuses as of 08/22/2022) [facility]08-09-2022 History of Past illness Narrative* Problem Noted Date Resolved Date Combined form of age-related cataract, both eyes 03/15/2022 03/15/2022 Encounter for support and coordination of transi tion of care 11/05/2021 08/17/2022 Overview: Hospital discharge summary Facility: [facility] Date of admission: 05/02/2022 Date of discharge: Preadmission details: 04/24/2022 presented [facility] with complaint of dyspnea on exertion negative for orthopnea moderate in severity with exertional cough. Vital signs: 100.6-61-15-127/55-90% RA identified on exam is no acute distress with normal respiratory effort, otherwise fairly normal. CBC: WBC 7.0-Hgb 12.7-HCT 39.8-PLT 141 with neutrophil percent 75.7, lymphs percent 12.4 low. Chemistries within normal limits except BUN 15-CRE 1.51 with EGFR 48- GLU 143-calcium 8.2-total bilirubin 9.50-albumin 3.1-albumin globulin ratio 0.8. Lactic acid normal at 1.4. BNP 106.1 slightly elevated. UA demonstrated 1+ bilirubin, 4+ urobilinogen, 5-10 RBCs, 10-25 WBCs, 2+ bacteria, coarse granular casts 5-10. Chest x-ray no acute findings. EKG normal sinus rhythm with no injury pattern. Patient was discharged on dexamethasone 6 mg daily #6/0, doxycycline 100 mg p.o. twice daily #20/0, and multiple are 200 mg 800 mg every 12 hours x5 days 05/02/2022 presented [facility] with significant history of tremors, COPD, sleep apnea, CPAP, atrial fibrillation on flecainide, warfare and therapy with 2-week history of progressive weakness. Productive cough thick yellow sputum. Wheezes. Tested positive for COVID 19 9018 2021, with O2 saturation of 88% requiring supplemental oxygen. also tested positive for COVID and reportedly passed out while he was in the emergency department. Physical exam: Vital signs 96.2R-71-96-126/41-95% RA. Identified as well- developed and nourished, bradycardia, otherwise within normal limits. Labwork: CBC and chemistry profiles were unremarkable except for BUN of 36-CR of 1.89-GLU 165-bilirubin 1.10-AST 48-CA 8.3-albumin 2.5 with albumin/globulin ratio 0.6-BNP 207.5. Chest x-ray demonstrated diffuse interstitial coarsening consistent with COPD, nonspecific hazy opacification left lower lung which could represent collapsed airspace Admitted to Dr. Brandon Michel PCU Admission assessment and plan: 1. COVID-19 pneumonia with hypoxia: Started on Decadron in emergency which will be continued, Imodium as needed for diarrhea, Mucinex, or to as needed. Started on azithromycin and ceftriaxone in the emergency department, patient has listed allergy to azithromycin with diarrhea stopped azithromycin. Switch to Levaquin dosed per creatinine clearance. Strep pneumonia and lesion Urine antigens ordered. 2. CHRISTOPHER on CKD stage III 80 likely from diabetic neuropathy and hypertensive nephrosclerosis, baseline creatinine 1.35. Given saline bolus. Trend BMP and avoid nephrotoxins. 3. Paroxysmal atrial fibrillation with bradycardia: Monitor on telemetry, flecainide and metoprolol continued. INR is subtherapeutic on presentation, warfarin adjusted, trend INR 4. Chronic heart failure with preserved ejection fraction with echo 11/01/2021 showing estimated ejection fraction 55% with no diastolic dysfunction. Hold Lasix in setting of CHRISTOPHER 5. Diabetes mellitus: Blood glucose stable, hold metformin, initiate Accu-Cheks with coverage. 6. DVT prophylaxis. Hospital discharge summary: Facility: [facility] Date of admission: 10/31/2021 Date of discharge: Preadmission details: 10/31/2021 patient presented with [facility] emergency department with complaint of shortness of breath, chills, weakness, gradual onset, moderate severity. No measured fever. Patient has history of lung cancer finishing radiation 3 months ago, not currently on chemotherapy. Vital signs 97.8-88-16-130/88-97% room air. Described as well-developed, no acute distress. CBC: WNL, CMP WNL except BUN 21-CRE 1.33-GFR 56, glucose 132, calcium 8.3, albumin 3.0, globulin 4.6. Lactic acid normal 1.9. BNP normal 57.5. Urine within normal limits except 5-10 RBCs, 0-5 WBCs, rare bacteria. Chest x-ray demonstrated mild cardiomegaly with borderline heart failure, no active cardiopulmonary disease otherwise, mild hyperinflation, benign calcification in the right hilar and right infrahilar lesions, mild demineralization. EKG demonstrated normal sinus rhythm, no acute ST or T wave changes, first-degree AV block. Patient did desaturate to 89% while sitting in bed, placed on nasal cannula 2 L, with movement patient sat dropped again to 87%. Patient discussed with hospitalist and recommendation for observation. Hospital course: Patient admitted to PCU. Assessment and plan: 1. Acute on chronic HFpEF/diastolic heart failure exacerbation factor unclear. Possibly related nonadherence to fluid restrictions. And fluid restriction 1500 cc, daily weights, monitor renal and electrolyte function, troponin and 2D echo ordered. Duplex of lower extremity ordered due to edema right greater than left to rule out DVT. 2. 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 Umu Venegas. No overt evidence of pneumonia or COPD. Blood cultures x2 ordered. Bronchodilator every 6 hours, incentive spirometry and PEP for hygiene. Mention is made of non-small cell lung cancer diagnosed via bronchoscopic wash [facility]. 3. Paroxysmal atrial fibrillation status post ablation, oropharyngeal 3. Continue warfarin, metoprolol and flecainide. 4. Diabetes mellitus type 2 blood sugars, Humalog sliding scale, hold Metformin Dyslipidemia fasting profile in a.m.Atorvastatin 6. Ulcerative colitis on mesalamine 7. Chronic kidney disease stage III AAA, monitor electrolytes, started diuretic IV furosemide 8. Other multiple comorbidities including morbid obesity, cardiac smoker of 30 pack years. 9. DVT prophylaxis: Continue warfarin. 10. Opted for full code. 11/01/2021 ultrasound bilateral lower extremity showed no DVT 11/01/2021: Echocardiogram with contrast: LV size and LV SF WNL, ejection fraction 65%, no diastolic dysfunction, no regional wall motion abnormalities. RV normal size and RV SF. Left and right atrium normal size, no ASD. Mild focal mitral valve calcification anterior leaflet, mild HI. TV: No stenosis, unable to estimate RSVP. AV: Mild diffuse aortic valve thickening, no stenosis. Pulmonic valve WNL. Normal aortic root, no pericardial effusion. Additional labs: 11/02/2021 WBC 10.3-Hgb 13.4-HCT 40.8-PLT 169. 11/03/2021 sodium 136-CL 103-K4.1-CO2 25.0-BUN 37-CRE 1.43-glucose 269-EGFR 51. 11/01/2021 blood culture x2 no growth left and right hand. Sputum culture expectorated x2: Mixed baljinder, no Streptococcus or Staphylococcus isolated. Urine culture no growth, Legionella and Streptococcus pneumonia antigens negative. SARS Covid and flu test negative. Patient diagnosis was transition from congestive heart failure COPD based on findings. Antibiotics do not seem to be warranted. He improved over 48 hours with initiation of steroids and was weaned from 4 L to 0 over that timeframe. Patient saturations remained above 90% did not qualify for home oxygen. Pulmonology was consulted, recommend initiation of Anoro Ellipta as well as prednisone taper on discharge. Was found to have right-sided candidiasis in the axilla, initiate nystatin powder with good improvement. Discharged in stable condition. Patient is to follow-up with Dr. Gillespie regards to lung cancer in February and follow-up with me in 2 weeks. Discharge diagnoses: As above. Medication reconciliation: New medications: Nystatin 1000 units/g powder 1 application twice daily 15/0 Anoro Ellipta 62.5-25 MCG per actuation blister device: 1 inhalation every 24 hours, 60/0 Prednisone 10 mg daily #30/0 Other medications were continued without change. Follow-up scheduled 01/11/[address] Vikram Easton pulmonology Appointments to be scheduled with Dr. Amezcua Appointment with me for 03/26/2022 Personal history of colonic polyps 03/01/2021 03/01/2021 Chronic diastolic CHF (congestive heart failure) 04/01/2019 02/13/2022 Chronic ulcerative enterocolitis 12/10/2015 12/10/2015 Chronic anticoagulation 06/19/2015 02/23/20 16 Hemorrhage of gastrointestinal tract, unspecifie d 12/31/2014 12/31/2014 Atrial flutter by electrocardiogram 12/15/2014 02/23/2016 Acute gastritis without mention of hemorrhage 02/23/2016 Blood in stool 03/02/2009 02/23/2016 Diverticulitis of colon (without mention of hemo rrhage) 04/24/2006 02/23/2016 Unspecified constipation 04/05/2006 016 documented as of this encounter (statuses as of 08/29/2022) [facility]08-09-2022 History of Past illness Narrative* Problem Noted Date Resolved Date Combined form of age-related cataract, both eyes 03/15/2022 03/15/2022 Encounter for support and coordination of transi tion of care 11/05/2021 08/17/2022 Overview: Hospital discharge summary Facility: [facility] Date of admission: 05/02/2022 Date of discharge: Preadmission details: 04/24/2022 presented [facility] with complaint of dyspnea on exertion negative for orthopnea moderate in severity with exertional cough. Vital signs: 100.6-61-15-127/55-90% RA identified on exam is no acute distress with normal respiratory effort, otherwise fairly normal. CBC: WBC 7.0-Hgb 12.7-HCT 39.8-PLT 141 with neutrophil percent 75.7, lymphs percent 12.4 low. Chemistries within normal limits except BUN 15-CRE 1.51 with EGFR 48- GLU 143-calcium 8.2-total bilirubin 9.50-albumin 3.1-albumin globulin ratio 0.8. Lactic acid normal at 1.4. BNP 106.1 slightly elevated. UA demonstrated 1+ bilirubin, 4+ urobilinogen, 5-10 RBCs, 10-25 WBCs, 2+ bacteria, coarse granular casts 5-10. Chest x-ray no acute findings. EKG normal sinus rhythm with no injury pattern. Patient was discharged on dexamethasone 6 mg daily #6/0, doxycycline 100 mg p.o. twice daily #20/0, and multiple are 200 mg 800 mg every 12 hours x5 days 05/02/2022 presented [facility] with significant history of tremors, COPD, sleep apnea, CPAP, atrial fibrillation on flecainide, warfare and therapy with 2-week history of progressive weakness. Productive cough thick yellow sputum. Wheezes. Tested positive for COVID 9017, with O2 saturation of 88% requiring supplemental oxygen. also tested positive for COVID and reportedly passed out while he was in the emergency department. Physical exam: Vital signs 96.7H-64-17-126/41-95% RA. Identified as well- developed and nourished, bradycardia, otherwise within normal limits. Labwork: CBC and chemistry profiles were unremarkable except for BUN of 36-CR of 1.89-GLU 165-bilirubin 1.10-AST 48-CA 8.3-albumin 2.5 with albumin/globulin ratio 0.6-BNP 207.5. Chest x-ray demonstrated diffuse interstitial coarsening consistent with COPD, nonspecific hazy opacification left lower lung which could represent collapsed airspace Admitted to Dr. Brandon Michel PCU Admission assessment and plan: 1. COVID-19 pneumonia with hypoxia: Started on Decadron in emergency which will be continued, Imodium as needed for diarrhea, Mucinex, or to as needed. Started on azithromycin and ceftriaxone in the emergency department, patient has listed allergy to azithromycin with diarrhea stopped azithromycin. Switch to Levaquin dosed per creatinine clearance. Strep pneumonia and lesion Urine antigens ordered. 2. CHRISTOPHER on CKD stage III 80 likely from diabetic neuropathy and hypertensive nephrosclerosis, baseline creatinine 1.35. Given saline bolus. Trend BMP and avoid nephrotoxins. 3. Paroxysmal atrial fibrillation with bradycardia: Monitor on telemetry, flecainide and metoprolol continued. INR is subtherapeutic on presentation, warfarin adjusted, trend INR 4. Chronic heart failure with preserved ejection fraction with echo 11/01/2021 showing estimated ejection fraction 55% with no diastolic dysfunction. Hold Lasix in setting of CHRISTOPHER 5. Diabetes mellitus: Blood glucose stable, hold metformin, initiate Accu-Cheks with coverage. 6. DVT prophylaxis. Hospital discharge summary: Facility: [facility] Date of admission: 10/31/2021 Date of discharge: Preadmission details: 10/31/2021 patient presented with [facility] emergency department with complaint of shortness of breath, chills, weakness, gradual onset, moderate severity. No measured fever. Patient has history of lung cancer finishing radiation 3 months ago, not currently on chemotherapy. Vital signs 97.8-88-16-130/88-97% room air. Described as well-developed, no acute distress. CBC: WNL, CMP WNL except BUN 21-CRE 1.33-GFR 56, glucose 132, calcium 8.3, albumin 3.0, globulin 4.6. Lactic acid normal 1.9. BNP normal 57.5. Urine within normal limits except 5-10 RBCs, 0-5 WBCs, rare bacteria. Chest x-ray demonstrated mild cardiomegaly with borderline heart failure, no active cardiopulmonary disease otherwise, mild hyperinflation, benign calcification in the right hilar and right infrahilar lesions, mild demineralization. EKG demonstrated normal sinus rhythm, no acute ST or T wave changes, first-degree AV block. Patient did desaturate to 89% while sitting in bed, placed on nasal cannula 2 L, with movement patient sat dropped again to 87%. Patient discussed with hospitalist and recommendation for observation. Hospital course: Patient admitted to PCU. Assessment and plan: 1. Acute on chronic HFpEF/diastolic heart failure exacerbation factor unclear. Possibly related nonadherence to fluid restrictions. And fluid restriction 1500 cc, daily weights, monitor renal and electrolyte function, troponin and 2D echo ordered. Duplex of lower extremity ordered due to edema right greater than left to rule out DVT. 2. 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 Umu Ziegler No overt evidence of pneumonia or COPD. Blood cultures x2 ordered. Bronchodilator every 6 hours, incentive spirometry and PEP for hygiene. Mention is made of non-small cell lung cancer diagnosed via bronchoscopic wash [facility]. 3. Paroxysmal atrial fibrillation status post ablation, oropharyngeal 3. Continue warfarin, metoprolol and flecainide. 4. Diabetes mellitus type 2 blood sugars, Humalog sliding scale, hold Metformin Dyslipidemia fasting profile in a.m.Atorvastatin 6. Ulcerative colitis on mesalamine 7. Chronic kidney disease stage III AAA, monitor electrolytes, started diuretic IV furosemide 8. Other multiple comorbidities including morbid obesity, cardiac smoker of 30 pack years. 9. DVT prophylaxis: Continue warfarin. 10. Opted for full code. 11/01/2021 ultrasound bilateral lower extremity showed no DVT 11/01/2021: Echocardiogram with contrast: LV size and LV SF WNL, ejection fraction 65%, no diastolic dysfunction, no regional wall motion abnormalities. RV normal size and RV SF. Left and right atrium normal size, no ASD. Mild focal mitral valve calcification anterior leaflet, mild HI. TV: No stenosis, unable to estimate RSVP. AV: Mild diffuse aortic valve thickening, no stenosis. Pulmonic valve WNL. Normal aortic root, no pericardial effusion. Additional labs: 11/02/2021 WBC 10.3-Hgb 13.4-HCT 40.8-PLT 169. 11/03/2021 sodium 136-CL 103-K4.1-CO2 25.0-BUN 37-CRE 1.43-glucose 269-EGFR 51. 11/01/2021 blood culture x2 no growth left and right hand. Sputum culture expectorated x2: Mixed baljinder, no Streptococcus or Staphylococcus isolated. Urine culture no growth, Legionella and Streptococcus pneumonia antigens negative. SARS Covid and flu test negative. Patient diagnosis was transition from congestive heart failure COPD based on findings. Antibiotics do not seem to be warranted. He improved over 48 hours with initiation of steroids and was weaned from 4 L to 0 over that timeframe. Patient saturations remained above 90% did not qualify for home oxygen. Pulmonology was consulted, recommend initiation of Anoro Ellipta as well as prednisone taper on discharge. Was found to have right-sided candidiasis in the axilla, initiate nystatin powder with good improvement. Discharged in stable condition. Patient is to follow-up with Dr. Gillespie regards to lung cancer in February and follow-up with me in 2 weeks. Discharge diagnoses: As above. Medication reconciliation: New medications: Nystatin 1000 units/g powder 1 application twice daily 15/0 Anoro Ellipta 62.5-25 MCG per actuation blister device: 1 inhalation every 24 hours, 60/0 Prednisone 10 mg daily #30/0 Other medications were continued without change. Follow-up scheduled 01/11/[address] Vikram Easton pulmonology Appointments to be scheduled with Dr. Amezcua Appointment with me for 03/26/2022 Personal history of colonic polyps 03/01/2021 03/01/2021 Chronic diastolic CHF (congestive heart failure) 04/01/2019 02/13/2022 Chronic ulcerative enterocolitis 12/10/2015 12/10/2015 Chronic anticoagulation 06/19/2015 02/23/20 16 Hemorrhage of gastrointestinal tract, unspecifie d 12/31/2014 12/31/2014 Atrial flutter by electrocardiogram 12/15/2014 02/23/2016 Acute gastritis without mention of hemorrhage 02/23/2016 Blood in stool 03/02/2009 02/23/2016 Diverticulitis of colon (without mention of hemo rrhage) 04/24/2006 02/23/2016 Unspecified constipation 04/05/2006 016 documented as of this encounter (statuses as of 08/29/2022) [facility]08-09-2022 History of Past illness Narrative* Problem Noted Date Resolved Date Combined form of age-related cataract, both eyes 03/15/2022 03/15/2022 Encounter for support and coordination of transi tion of care 11/05/2021 08/17/2022 Overview: Hospital discharge summary Facility: [facility] Date of admission: 05/02/2022 Date of discharge: Preadmission details: 04/24/2022 presented [facility] with complaint of dyspnea on exertion negative for orthopnea moderate in severity with exertional cough. Vital signs: 100.6-61-15-127/55-90% RA identified on exam is no acute distress with normal respiratory effort, otherwise fairly normal. CBC: WBC 7.0-Hgb 12.7-HCT 39.8-PLT 141 with neutrophil percent 75.7, lymphs percent 12.4 low. Chemistries within normal limits except BUN 15-CRE 1.51 with EGFR 48- GLU 143-calcium 8.2-total bilirubin 9.50-albumin 3.1-albumin globulin ratio 0.8. Lactic acid normal at 1.4. BNP 106.1 slightly elevated. UA demonstrated 1+ bilirubin, 4+ urobilinogen, 5-10 RBCs, 10-25 WBCs, 2+ bacteria, coarse granular casts 5-10. Chest x-ray no acute findings. EKG normal sinus rhythm with no injury pattern. Patient was discharged on dexamethasone 6 mg daily #6/0, doxycycline 100 mg p.o. twice daily #20/0, and multiple are 200 mg 800 mg every 12 hours x5 days 05/02/2022 presented [facility] with significant history of tremors, COPD, sleep apnea, CPAP, atrial fibrillation on flecainide, warfare and therapy with 2-week history of progressive weakness. Productive cough thick yellow sputum. Wheezes. Tested positive for COVID 9017, with O2 saturation of 88% requiring supplemental oxygen. also tested positive for COVID and reportedly passed out while he was in the emergency department. Physical exam: Vital signs 96.8F-21-60-126/41-95% RA. Identified as well- developed and nourished, bradycardia, otherwise within normal limits. Labwork: CBC and chemistry profiles were unremarkable except for BUN of 36-CR of 1.89-GLU 165-bilirubin 1.10-AST 48-CA 8.3-albumin 2.5 with albumin/globulin ratio 0.6-BNP 207.5. Chest x-ray demonstrated diffuse interstitial coarsening consistent with COPD, nonspecific hazy opacification left lower lung which could represent collapsed airspace Admitted to Dr. Brandon Michel PCU Admission assessment and plan: 1. COVID-19 pneumonia with hypoxia: Started on Decadron in emergency which will be continued, Imodium as needed for diarrhea, Mucinex, or to as needed. Started on azithromycin and ceftriaxone in the emergency department, patient has listed allergy to azithromycin with diarrhea stopped azithromycin. Switch to Levaquin dosed per creatinine clearance. Strep pneumonia and lesion Urine antigens ordered. 2. CHRISTOPHER on CKD stage III 80 likely from diabetic neuropathy and hypertensive nephrosclerosis, baseline creatinine 1.35. Given saline bolus. Trend BMP and avoid nephrotoxins. 3. Paroxysmal atrial fibrillation with bradycardia: Monitor on telemetry, flecainide and metoprolol continued. INR is subtherapeutic on presentation, warfarin adjusted, trend INR 4. Chronic heart failure with preserved ejection fraction with echo 11/01/2021 showing estimated ejection fraction 55% with no diastolic dysfunction. Hold Lasix in setting of CHRISTOPHER 5. Diabetes mellitus: Blood glucose stable, hold metformin, initiate Accu-Cheks with coverage. 6. DVT prophylaxis. Hospital discharge summary: Facility: [facility] Date of admission: 10/31/2021 Date of discharge: Preadmission details: 10/31/2021 patient presented with [facility] emergency department with complaint of shortness of breath, chills, weakness, gradual onset, moderate severity. No measured fever. Patient has history of lung cancer finishing radiation 3 months ago, not currently on chemotherapy. Vital signs 97.8-88-16-130/88-97% room air. Described as well-developed, no acute distress. CBC: WNL, CMP WNL except BUN 21-CRE 1.33-GFR 56, glucose 132, calcium 8.3, albumin 3.0, globulin 4.6. Lactic acid normal 1.9. BNP normal 57.5. Urine within normal limits except 5-10 RBCs, 0-5 WBCs, rare bacteria. Chest x-ray demonstrated mild cardiomegaly with borderline heart failure, no active cardiopulmonary disease otherwise, mild hyperinflation, benign calcification in the right hilar and right infrahilar lesions, mild demineralization. EKG demonstrated normal sinus rhythm, no acute ST or T wave changes, first-degree AV block. Patient did desaturate to 89% while sitting in bed, placed on nasal cannula 2 L, with movement patient sat dropped again to 87%. Patient discussed with hospitalist and recommendation for observation. Hospital course: Patient admitted to PCU. Assessment and plan: 1. Acute on chronic HFpEF/diastolic heart failure exacerbation factor unclear. Possibly related nonadherence to fluid restrictions. And fluid restriction 1500 cc, daily weights, monitor renal and electrolyte function, troponin and 2D echo ordered. Duplex of lower extremity ordered due to edema right greater than left to rule out DVT. 2. 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 Umu Venegas. No overt evidence of pneumonia or COPD. Blood cultures x2 ordered. Bronchodilator every 6 hours, incentive spirometry and PEP for hygiene. Mention is made of non-small cell lung cancer diagnosed via bronchoscopic wash [facility]. 3. Paroxysmal atrial fibrillation status post ablation, oropharyngeal 3. Continue warfarin, metoprolol and flecainide. 4. Diabetes mellitus type 2 blood sugars, Humalog sliding scale, hold Metformin Dyslipidemia fasting profile in a.m.Atorvastatin 6. Ulcerative colitis on mesalamine 7. Chronic kidney disease stage III AAA, monitor electrolytes, started diuretic IV furosemide 8. Other multiple comorbidities including morbid obesity, cardiac smoker of 30 pack years. 9. DVT prophylaxis: Continue warfarin. 10. Opted for full code. 11/01/2021 ultrasound bilateral lower extremity showed no DVT 11/01/2021: Echocardiogram with contrast: LV size and LV SF WNL, ejection fraction 65%, no diastolic dysfunction, no regional wall motion abnormalities. RV normal size and RV SF. Left and right atrium normal size, no ASD. Mild focal mitral valve calcification anterior leaflet, mild HI. TV: No stenosis, unable to estimate RSVP. AV: Mild diffuse aortic valve thickening, no stenosis. Pulmonic valve WNL. Normal aortic root, no pericardial effusion. Additional labs: 11/02/2021 WBC 10.3-Hgb 13.4-HCT 40.8-PLT 169. 11/03/2021 sodium 136-CL 103-K4.1-CO2 25.0-BUN 37-CRE 1.43-glucose 269-EGFR 51. 11/01/2021 blood culture x2 no growth left and right hand. Sputum culture expectorated x2: Mixed baljinder, no Streptococcus or Staphylococcus isolated. Urine culture no growth, Legionella and Streptococcus pneumonia antigens negative. SARS Covid and flu test negative. Patient diagnosis was transition from congestive heart failure COPD based on findings. Antibiotics do not seem to be warranted. He improved over 48 hours with initiation of steroids and was weaned from 4 L to 0 over that timeframe. Patient saturations remained above 90% did not qualify for home oxygen. Pulmonology was consulted, recommend initiation of Anoro Ellipta as well as prednisone taper on discharge. Was found to have right-sided candidiasis in the axilla, initiate nystatin powder with good improvement. Discharged in stable condition. Patient is to follow-up with Dr. Gillespie regards to lung cancer in February and follow-up with me in 2 weeks. Discharge diagnoses: As above. Medication reconciliation: New medications: Nystatin 1000 units/g powder 1 application twice daily 15/0 Anoro Ellipta 62.5-25 MCG per actuation blister device: 1 inhalation every 24 hours, 60/0 Prednisone 10 mg daily #30/0 Other medications were continued without change. Follow-up scheduled 01/11/[address] Vikram Easton pulmonology Appointments to be scheduled with Dr. Amezcua Appointment with me for 03/26/2022 Personal history of colonic polyps 03/01/2021 03/01/2021 Chronic diastolic CHF (congestive heart failure) 04/01/2019 02/13/2022 Chronic ulcerative enterocolitis 12/10/2015 12/10/2015 Chronic anticoagulation 06/19/2015 02/23/20 16 Hemorrhage of gastrointestinal tract, unspecifie d 12/31/2014 12/31/2014 Atrial flutter by electrocardiogram 12/15/2014 02/23/2016 Acute gastritis without mention of hemorrhage 02/23/2016 Blood in stool 03/02/2009 02/23/2016 Diverticulitis of colon (without mention of hemo rrhage) 04/24/2006 02/23/2016 Unspecified constipation 04/05/2006 016 documented as of this encounter (statuses as of 09/05/2022) [facility]08-09-2022 History of Past illness Narrative* Problem Noted Date Resolved Date Combined form of age-related cataract, both eyes 03/15/2022 03/15/2022 Encounter for support and coordination of transi tion of care 11/05/2021 08/17/2022 Overview: Hospital discharge summary Facility: [facility] Date of admission: 05/02/2022 Date of discharge: Preadmission details: 04/24/2022 presented [facility] with complaint of dyspnea on exertion negative for orthopnea moderate in severity with exertional cough. Vital signs: 100.6-61-15-127/55-90% RA identified on exam is no acute distress with normal respiratory effort, otherwise fairly normal. CBC: WBC 7.0-Hgb 12.7-HCT 39.8-PLT 141 with neutrophil percent 75.7, lymphs percent 12.4 low. Chemistries within normal limits except BUN 15-CRE 1.51 with EGFR 48- GLU 143-calcium 8.2-total bilirubin 9.50-albumin 3.1-albumin globulin ratio 0.8. Lactic acid normal at 1.4. BNP 106.1 slightly elevated. UA demonstrated 1+ bilirubin, 4+ urobilinogen, 5-10 RBCs, 10-25 WBCs, 2+ bacteria, coarse granular casts 5-10. Chest x-ray no acute findings. EKG normal sinus rhythm with no injury pattern. Patient was discharged on dexamethasone 6 mg daily #6/0, doxycycline 100 mg p.o. twice daily #20/0, and multiple are 200 mg 800 mg every 12 hours x5 days 05/02/2022 presented [facility] with significant history of tremors, COPD, sleep apnea, CPAP, atrial fibrillation on flecainide, warfare and therapy with 2-week history of progressive weakness. Productive cough thick yellow sputum. Wheezes. Tested positive for COVID 9017, with O2 saturation of 88% requiring supplemental oxygen. also tested positive for COVID and reportedly passed out while he was in the emergency department. Physical exam: Vital signs 96.0G-28-15-126/41-95% RA. Identified as well- developed and nourished, bradycardia, otherwise within normal limits. Labwork: CBC and chemistry profiles were unremarkable except for BUN of 36-CR of 1.89-GLU 165-bilirubin 1.10-AST 48-CA 8.3-albumin 2.5 with albumin/globulin ratio 0.6-BNP 207.5. Chest x-ray demonstrated diffuse interstitial coarsening consistent with COPD, nonspecific hazy opacification left lower lung which could represent collapsed airspace Admitted to Dr. rBandon Michel PCU Admission assessment and plan: 1. COVID-19 pneumonia with hypoxia: Started on Decadron in emergency which will be continued, Imodium as needed for diarrhea, Mucinex, or to as needed. Started on azithromycin and ceftriaxone in the emergency department, patient has listed allergy to azithromycin with diarrhea stopped azithromycin. Switch to Levaquin dosed per creatinine clearance. Strep pneumonia and lesion Urine antigens ordered. 2. CHRISTOPHER on CKD stage III 80 likely from diabetic neuropathy and hypertensive nephrosclerosis, baseline creatinine 1.35. Given saline bolus. Trend BMP and avoid nephrotoxins. 3. Paroxysmal atrial fibrillation with bradycardia: Monitor on telemetry, flecainide and metoprolol continued. INR is subtherapeutic on presentation, warfarin adjusted, trend INR 4. Chronic heart failure with preserved ejection fraction with echo 11/01/2021 showing estimated ejection fraction 55% with no diastolic dysfunction. Hold Lasix in setting of CHRISTOPHER 5. Diabetes mellitus: Blood glucose stable, hold metformin, initiate Accu-Cheks with coverage. 6. DVT prophylaxis. Hospital discharge summary: Facility: [facility] Date of admission: 10/31/2021 Date of discharge: Preadmission details: 10/31/2021 patient presented with [facility] emergency department with complaint of shortness of breath, chills, weakness, gradual onset, moderate severity. No measured fever. Patient has history of lung cancer finishing radiation 3 months ago, not currently on chemotherapy. Vital signs 97.8-88-16-130/88-97% room air. Described as well-developed, no acute distress. CBC: WNL, CMP WNL except BUN 21-CRE 1.33-GFR 56, glucose 132, calcium 8.3, albumin 3.0, globulin 4.6. Lactic acid normal 1.9. BNP normal 57.5. Urine within normal limits except 5-10 RBCs, 0-5 WBCs, rare bacteria. Chest x-ray demonstrated mild cardiomegaly with borderline heart failure, no active cardiopulmonary disease otherwise, mild hyperinflation, benign calcification in the right hilar and right infrahilar lesions, mild demineralization. EKG demonstrated normal sinus rhythm, no acute ST or T wave changes, first-degree AV block. Patient did desaturate to 89% while sitting in bed, placed on nasal cannula 2 L, with movement patient sat dropped again to 87%. Patient discussed with hospitalist and recommendation for observation. Hospital course: Patient admitted to PCU. Assessment and plan: 1. Acute on chronic HFpEF/diastolic heart failure exacerbation factor unclear. Possibly related nonadherence to fluid restrictions. And fluid restriction 1500 cc, daily weights, monitor renal and electrolyte function, troponin and 2D echo ordered. Duplex of lower extremity ordered due to edema right greater than left to rule out DVT. 2. 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 Umu Venegas. No overt evidence of pneumonia or COPD. Blood cultures x2 ordered. Bronchodilator every 6 hours, incentive spirometry and PEP for hygiene. Mention is made of non-small cell lung cancer diagnosed via bronchoscopic wash [facility]. 3. Paroxysmal atrial fibrillation status post ablation, oropharyngeal 3. Continue warfarin, metoprolol and flecainide. 4. Diabetes mellitus type 2 blood sugars, Humalog sliding scale, hold Metformin Dyslipidemia fasting profile in a.m.Atorvastatin 6. Ulcerative colitis on mesalamine 7. Chronic kidney disease stage III AAA, monitor electrolytes, started diuretic IV furosemide 8. Other multiple comorbidities including morbid obesity, cardiac smoker of 30 pack years. 9. DVT prophylaxis: Continue warfarin. 10. Opted for full code. 11/01/2021 ultrasound bilateral lower extremity showed no DVT 11/01/2021: Echocardiogram with contrast: LV size and LV SF WNL, ejection fraction 65%, no diastolic dysfunction, no regional wall motion abnormalities. RV normal size and RV SF. Left and right atrium normal size, no ASD. Mild focal mitral valve calcification anterior leaflet, mild HI. TV: No stenosis, unable to estimate RSVP. AV: Mild diffuse aortic valve thickening, no stenosis. Pulmonic valve WNL. Normal aortic root, no pericardial effusion. Additional labs: 11/02/2021 WBC 10.3-Hgb 13.4-HCT 40.8-PLT 169. 11/03/2021 sodium 136-CL 103-K4.1-CO2 25.0-BUN 37-CRE 1.43-glucose 269-EGFR 51. 11/01/2021 blood culture x2 no growth left and right hand. Sputum culture expectorated x2: Mixed baljinder, no Streptococcus or Staphylococcus isolated. Urine culture no growth, Legionella and Streptococcus pneumonia antigens negative. SARS Covid and flu test negative. Patient diagnosis was transition from congestive heart failure COPD based on findings. Antibiotics do not seem to be warranted. He improved over 48 hours with initiation of steroids and was weaned from 4 L to 0 over that timeframe. Patient saturations remained above 90% did not qualify for home oxygen. Pulmonology was consulted, recommend initiation of Anoro Ellipta as well as prednisone taper on discharge. Was found to have right-sided candidiasis in the axilla, initiate nystatin powder with good improvement. Discharged in stable condition. Patient is to follow-up with Dr. Gillespie regards to lung cancer in February and follow-up with me in 2 weeks. Discharge diagnoses: As above. Medication reconciliation: New medications: Nystatin 1000 units/g powder 1 application twice daily 15/0 Anoro Ellipta 62.5-25 MCG per actuation blister device: 1 inhalation every 24 hours, 60/0 Prednisone 10 mg daily #30/0 Other medications were continued without change. Follow-up scheduled 01/11/[address] Vikram Easton pulmonology Appointments to be scheduled with Dr. Amezcua Appointment with me for 03/26/2022 Personal history of colonic polyps 03/01/2021 03/01/2021 Chronic diastolic CHF (congestive heart failure) 04/01/2019 02/13/2022 Chronic ulcerative enterocolitis 12/10/2015 12/10/2015 Chronic anticoagulation 06/19/2015 02/23/20 16 Hemorrhage of gastrointestinal tract, unspecifie d 12/31/2014 12/31/2014 Atrial flutter by electrocardiogram 12/15/2014 02/23/2016 Acute gastritis without mention of hemorrhage 02/23/2016 Blood in stool 03/02/2009 02/23/2016 Diverticulitis of colon (without mention of hemo rrhage) 04/24/2006 02/23/2016 Unspecified constipation 04/05/2006 016 documented as of this encounter (statuses as of 09/10/2022) [facility]08-09-2022 History of Past illness Narrative* Problem Noted Date Resolved Date Combined form of age-related cataract, both eyes 03/15/2022 03/15/2022 Encounter for support and coordination of transi tion of care 11/05/2021 08/17/2022 Overview: Hospital discharge summary Facility: [facility] Date of admission: 05/02/2022 Date of discharge: Preadmission details: 04/24/2022 presented [facility] with complaint of dyspnea on exertion negative for orthopnea moderate in severity with exertional cough. Vital signs: 100.6-61-15-127/55-90% RA identified on exam is no acute distress with normal respiratory effort, otherwise fairly normal. CBC: WBC 7.0-Hgb 12.7-HCT 39.8-PLT 141 with neutrophil percent 75.7, lymphs percent 12.4 low. Chemistries within normal limits except BUN 15-CRE 1.51 with EGFR 48- GLU 143-calcium 8.2-total bilirubin 9.50-albumin 3.1-albumin globulin ratio 0.8. Lactic acid normal at 1.4. BNP 106.1 slightly elevated. UA demonstrated 1+ bilirubin, 4+ urobilinogen, 5-10 RBCs, 10-25 WBCs, 2+ bacteria, coarse granular casts 5-10. Chest x-ray no acute findings. EKG normal sinus rhythm with no injury pattern. Patient was discharged on dexamethasone 6 mg daily #6/0, doxycycline 100 mg p.o. twice daily #20/0, and multiple are 200 mg 800 mg every 12 hours x5 days 05/02/2022 presented [facility] with significant history of tremors, COPD, sleep apnea, CPAP, atrial fibrillation on flecainide, warfare and therapy with 2-week history of progressive weakness. Productive cough thick yellow sputum. Wheezes. Tested positive for COVID 9017, with O2 saturation of 88% requiring supplemental oxygen. also tested positive for COVID and reportedly passed out while he was in the emergency department. Physical exam: Vital signs 96.3Y-25-54-126/41-95% RA. Identified as well- developed and nourished, bradycardia, otherwise within normal limits. Labwork: CBC and chemistry profiles were unremarkable except for BUN of 36-CR of 1.89-GLU 165-bilirubin 1.10-AST 48-CA 8.3-albumin 2.5 with albumin/globulin ratio 0.6-BNP 207.5. Chest x-ray demonstrated diffuse interstitial coarsening consistent with COPD, nonspecific hazy opacification left lower lung which could represent collapsed airspace Admitted to Dr. Brandon Michel PCU Admission assessment and plan: 1. COVID-19 pneumonia with hypoxia: Started on Decadron in emergency which will be continued, Imodium as needed for diarrhea, Mucinex, or to as needed. Started on azithromycin and ceftriaxone in the emergency department, patient has listed allergy to azithromycin with diarrhea stopped azithromycin. Switch to Levaquin dosed per creatinine clearance. Strep pneumonia and lesion Urine antigens ordered. 2. CHRISTOPHER on CKD stage III 80 likely from diabetic neuropathy and hypertensive nephrosclerosis, baseline creatinine 1.35. Given saline bolus. Trend BMP and avoid nephrotoxins. 3. Paroxysmal atrial fibrillation with bradycardia: Monitor on telemetry, flecainide and metoprolol continued. INR is subtherapeutic on presentation, warfarin adjusted, trend INR 4. Chronic heart failure with preserved ejection fraction with echo 11/01/2021 showing estimated ejection fraction 55% with no diastolic dysfunction. Hold Lasix in setting of CHRISTOPHER 5. Diabetes mellitus: Blood glucose stable, hold metformin, initiate Accu-Cheks with coverage. 6. DVT prophylaxis. Hospital discharge summary: Facility: [facility] Date of admission: 10/31/2021 Date of discharge: Preadmission details: 10/31/2021 patient presented with [facility] emergency department with complaint of shortness of breath, chills, weakness, gradual onset, moderate severity. No measured fever. Patient has history of lung cancer finishing radiation 3 months ago, not currently on chemotherapy. Vital signs 97.8-88-16-130/88-97% room air. Described as well-developed, no acute distress. CBC: WNL, CMP WNL except BUN 21-CRE 1.33-GFR 56, glucose 132, calcium 8.3, albumin 3.0, globulin 4.6. Lactic acid normal 1.9. BNP normal 57.5. Urine within normal limits except 5-10 RBCs, 0-5 WBCs, rare bacteria. Chest x-ray demonstrated mild cardiomegaly with borderline heart failure, no active cardiopulmonary disease otherwise, mild hyperinflation, benign calcification in the right hilar and right infrahilar lesions, mild demineralization. EKG demonstrated normal sinus rhythm, no acute ST or T wave changes, first-degree AV block. Patient did desaturate to 89% while sitting in bed, placed on nasal cannula 2 L, with movement patient sat dropped again to 87%. Patient discussed with hospitalist and recommendation for observation. Hospital course: Patient admitted to PCU. Assessment and plan: 1. Acute on chronic HFpEF/diastolic heart failure exacerbation factor unclear. Possibly related nonadherence to fluid restrictions. And fluid restriction 1500 cc, daily weights, monitor renal and electrolyte function, troponin and 2D echo ordered. Duplex of lower extremity ordered due to edema right greater than left to rule out DVT. 2. 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 Umu Venegas. No overt evidence of pneumonia or COPD. Blood cultures x2 ordered. Bronchodilator every 6 hours, incentive spirometry and PEP for hygiene. Mention is made of non-small cell lung cancer diagnosed via bronchoscopic wash [facility]. 3. Paroxysmal atrial fibrillation status post ablation, oropharyngeal 3. Continue warfarin, metoprolol and flecainide. 4. Diabetes mellitus type 2 blood sugars, Humalog sliding scale, hold Metformin Dyslipidemia fasting profile in a.m.Atorvastatin 6. Ulcerative colitis on mesalamine 7. Chronic kidney disease stage III AAA, monitor electrolytes, started diuretic IV furosemide 8. Other multiple comorbidities including morbid obesity, cardiac smoker of 30 pack years. 9. DVT prophylaxis: Continue warfarin. 10. Opted for full code. 11/01/2021 ultrasound bilateral lower extremity showed no DVT 11/01/2021: Echocardiogram with contrast: LV size and LV SF WNL, ejection fraction 65%, no diastolic dysfunction, no regional wall motion abnormalities. RV normal size and RV SF. Left and right atrium normal size, no ASD. Mild focal mitral valve calcification anterior leaflet, mild HI. TV: No stenosis, unable to estimate RSVP. AV: Mild diffuse aortic valve thickening, no stenosis. Pulmonic valve WNL. Normal aortic root, no pericardial effusion. Additional labs: 11/02/2021 WBC 10.3-Hgb 13.4-HCT 40.8-PLT 169. 11/03/2021 sodium 136-CL 103-K4.1-CO2 25.0-BUN 37-CRE 1.43-glucose 269-EGFR 51. 11/01/2021 blood culture x2 no growth left and right hand. Sputum culture expectorated x2: Mixed baljinder, no Streptococcus or Staphylococcus isolated. Urine culture no growth, Legionella and Streptococcus pneumonia antigens negative. SARS Covid and flu test negative. Patient diagnosis was transition from congestive heart failure COPD based on findings. Antibiotics do not seem to be warranted. He improved over 48 hours with initiation of steroids and was weaned from 4 L to 0 over that timeframe. Patient saturations remained above 90% did not qualify for home oxygen. Pulmonology was consulted, recommend initiation of Anoro Ellipta as well as prednisone taper on discharge. Was found to have right-sided candidiasis in the axilla, initiate nystatin powder with good improvement. Discharged in stable condition. Patient is to follow-up with Dr. Gillespie regards to lung cancer in February and follow-up with me in 2 weeks. Discharge diagnoses: As above. Medication reconciliation: New medications: Nystatin 1000 units/g powder 1 application twice daily 15/0 Anoro Ellipta 62.5-25 MCG per actuation blister device: 1 inhalation every 24 hours, 60/0 Prednisone 10 mg daily #30/0 Other medications were continued without change. Follow-up scheduled 01/11/[address] Vikram Easton pulmonology Appointments to be scheduled with Dr. Amezcua Appointment with me for 03/26/2022 Personal history of colonic polyps 03/01/2021 03/01/2021 Chronic diastolic CHF (congestive heart failure) 04/01/2019 02/13/2022 Chronic ulcerative enterocolitis 12/10/2015 12/10/2015 Chronic anticoagulation 06/19/2015 02/23/20 16 Hemorrhage of gastrointestinal tract, unspecifie d 12/31/2014 12/31/2014 Atrial flutter by electrocardiogram 12/15/2014 02/23/2016 Acute gastritis without mention of hemorrhage 02/23/2016 Blood in stool 03/02/2009 02/23/2016 Diverticulitis of colon (without mention of hemo rrhage) 04/24/2006 02/23/2016 Unspecified constipation 04/05/2006 016 documented as of this encounter (statuses as of 10/11/2022) [facility]08-09-2022 History of Past illness Narrative* Problem Noted Date Resolved Date Combined form of age-related cataract, both eyes 03/15/2022 03/15/2022 Encounter for support and coordination of transi tion of care 11/05/2021 08/17/2022 Overview: Hospital discharge summary Facility: [facility] Date of admission: 05/02/2022 Date of discharge: Preadmission details: 04/24/2022 presented [facility] with complaint of dyspnea on exertion negative for orthopnea moderate in severity with exertional cough. Vital signs: 100.6-61-15-127/55-90% RA identified on exam is no acute distress with normal respiratory effort, otherwise fairly normal. CBC: WBC 7.0-Hgb 12.7-HCT 39.8-PLT 141 with neutrophil percent 75.7, lymphs percent 12.4 low. Chemistries within normal limits except BUN 15-CRE 1.51 with EGFR 48- GLU 143-calcium 8.2-total bilirubin 9.50-albumin 3.1-albumin globulin ratio 0.8. Lactic acid normal at 1.4. BNP 106.1 slightly elevated. UA demonstrated 1+ bilirubin, 4+ urobilinogen, 5-10 RBCs, 10-25 WBCs, 2+ bacteria, coarse granular casts 5-10. Chest x-ray no acute findings. EKG normal sinus rhythm with no injury pattern. Patient was discharged on dexamethasone 6 mg daily #6/0, doxycycline 100 mg p.o. twice daily #20/0, and multiple are 200 mg 800 mg every 12 hours x5 days 05/02/2022 presented [facility] with significant history of tremors, COPD, sleep apnea, CPAP, atrial fibrillation on flecainide, warfare and therapy with 2-week history of progressive weakness. Productive cough thick yellow sputum. Wheezes. Tested positive for COVID 9017, with O2 saturation of 88% requiring supplemental oxygen. also tested positive for COVID and reportedly passed out while he was in the emergency department. Physical exam: Vital signs 96.6Q-18-16-126/41-95% RA. Identified as well- developed and nourished, bradycardia, otherwise within normal limits. Labwork: CBC and chemistry profiles were unremarkable except for BUN of 36-CR of 1.89-GLU 165-bilirubin 1.10-AST 48-CA 8.3-albumin 2.5 with albumin/globulin ratio 0.6-BNP 207.5. Chest x-ray demonstrated diffuse interstitial coarsening consistent with COPD, nonspecific hazy opacification left lower lung which could represent collapsed airspace Admitted to Dr. Brandon Michel PCU Admission assessment and plan: 1. COVID-19 pneumonia with hypoxia: Started on Decadron in emergency which will be continued, Imodium as needed for diarrhea, Mucinex, or to as needed. Started on azithromycin and ceftriaxone in the emergency department, patient has listed allergy to azithromycin with diarrhea stopped azithromycin. Switch to Levaquin dosed per creatinine clearance. Strep pneumonia and lesion Urine antigens ordered. 2. CHRISTOPHER on CKD stage III 80 likely from diabetic neuropathy and hypertensive nephrosclerosis, baseline creatinine 1.35. Given saline bolus. Trend BMP and avoid nephrotoxins. 3. Paroxysmal atrial fibrillation with bradycardia: Monitor on telemetry, flecainide and metoprolol continued. INR is subtherapeutic on presentation, warfarin adjusted, trend INR 4. Chronic heart failure with preserved ejection fraction with echo 11/01/2021 showing estimated ejection fraction 55% with no diastolic dysfunction. Hold Lasix in setting of CHRISTOPHER 5. Diabetes mellitus: Blood glucose stable, hold metformin, initiate Accu-Cheks with coverage. 6. DVT prophylaxis. Hospital discharge summary: Facility: [facility] Date of admission: 10/31/2021 Date of discharge: Preadmission details: 10/31/2021 patient presented with [facility] emergency department with complaint of shortness of breath, chills, weakness, gradual onset, moderate severity. No measured fever. Patient has history of lung cancer finishing radiation 3 months ago, not currently on chemotherapy. Vital signs 97.8-88-16-130/88-97% room air. Described as well-developed, no acute distress. CBC: WNL, CMP WNL except BUN 21-CRE 1.33-GFR 56, glucose 132, calcium 8.3, albumin 3.0, globulin 4.6. Lactic acid normal 1.9. BNP normal 57.5. Urine within normal limits except 5-10 RBCs, 0-5 WBCs, rare bacteria. Chest x-ray demonstrated mild cardiomegaly with borderline heart failure, no active cardiopulmonary disease otherwise, mild hyperinflation, benign calcification in the right hilar and right infrahilar lesions, mild demineralization. EKG demonstrated normal sinus rhythm, no acute ST or T wave changes, first-degree AV block. Patient did desaturate to 89% while sitting in bed, placed on nasal cannula 2 L, with movement patient sat dropped again to 87%. Patient discussed with hospitalist and recommendation for observation. Hospital course: Patient admitted to PCU. Assessment and plan: 1. Acute on chronic HFpEF/diastolic heart failure exacerbation factor unclear. Possibly related nonadherence to fluid restrictions. And fluid restriction 1500 cc, daily weights, monitor renal and electrolyte function, troponin and 2D echo ordered. Duplex of lower extremity ordered due to edema right greater than left to rule out DVT. 2. 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 Umu Venegas. No overt evidence of pneumonia or COPD. Blood cultures x2 ordered. Bronchodilator every 6 hours, incentive spirometry and PEP for hygiene. Mention is made of non-small cell lung cancer diagnosed via bronchoscopic wash [facility]. 3. Paroxysmal atrial fibrillation status post ablation, oropharyngeal 3. Continue warfarin, metoprolol and flecainide. 4. Diabetes mellitus type 2 blood sugars, Humalog sliding scale, hold Metformin Dyslipidemia fasting profile in a.m.Atorvastatin 6. Ulcerative colitis on mesalamine 7. Chronic kidney disease stage III AAA, monitor electrolytes, started diuretic IV furosemide 8. Other multiple comorbidities including morbid obesity, cardiac smoker of 30 pack years. 9. DVT prophylaxis: Continue warfarin. 10. Opted for full code. 11/01/2021 ultrasound bilateral lower extremity showed no DVT 11/01/2021: Echocardiogram with contrast: LV size and LV SF WNL, ejection fraction 65%, no diastolic dysfunction, no regional wall motion abnormalities. RV normal size and RV SF. Left and right atrium normal size, no ASD. Mild focal mitral valve calcification anterior leaflet, mild HI. TV: No stenosis, unable to estimate RSVP. AV: Mild diffuse aortic valve thickening, no stenosis. Pulmonic valve WNL. Normal aortic root, no pericardial effusion. Additional labs: 11/02/2021 WBC 10.3-Hgb 13.4-HCT 40.8-PLT 169. 11/03/2021 sodium 136-CL 103-K4.1-CO2 25.0-BUN 37-CRE 1.43-glucose 269-EGFR 51. 11/01/2021 blood culture x2 no growth left and right hand. Sputum culture expectorated x2: Mixed baljinder, no Streptococcus or Staphylococcus isolated. Urine culture no growth, Legionella and Streptococcus pneumonia antigens negative. SARS Covid and flu test negative. Patient diagnosis was transition from congestive heart failure COPD based on findings. Antibiotics do not seem to be warranted. He improved over 48 hours with initiation of steroids and was weaned from 4 L to 0 over that timeframe. Patient saturations remained above 90% did not qualify for home oxygen. Pulmonology was consulted, recommend initiation of Anoro Ellipta as well as prednisone taper on discharge. Was found to have right-sided candidiasis in the axilla, initiate nystatin powder with good improvement. Discharged in stable condition. Patient is to follow-up with Dr. Gillespie regards to lung cancer in February and follow-up with me in 2 weeks. Discharge diagnoses: As above. Medication reconciliation: New medications: Nystatin 1000 units/g powder 1 application twice daily 15/0 Anoro Ellipta 62.5-25 MCG per actuation blister device: 1 inhalation every 24 hours, 60/0 Prednisone 10 mg daily #30/0 Other medications were continued without change. Follow-up scheduled 01/11/[address] Vikram Easton pulmonology Appointments to be scheduled with Dr. Amezcua Appointment with me for 03/26/2022 Personal history of colonic polyps 03/01/2021 03/01/2021 Chronic diastolic CHF (congestive heart failure) 04/01/2019 02/13/2022 Chronic ulcerative enterocolitis 12/10/2015 12/10/2015 Chronic anticoagulation 06/19/2015 02/23/20 16 Hemorrhage of gastrointestinal tract, unspecifie d 12/31/2014 12/31/2014 Atrial flutter by electrocardiogram 12/15/2014 02/23/2016 Acute gastritis without mention of hemorrhage 02/23/2016 Blood in stool 03/02/2009 02/23/2016 Diverticulitis of colon (without mention of hemo rrhage) 04/24/2006 02/23/2016 Unspecified constipation 04/05/2006 016 documented as of this encounter (statuses as of 10/26/2022) [facility]08-09-2022 History of Past illness Narrative* Problem Noted Date Resolved Date Combined form of age-related cataract, both eyes 03/15/2022 03/15/2022 Encounter for support and coordination of transi tion of care 11/05/2021 08/17/2022 Overview: Hospital discharge summary Facility: [facility] Date of admission: 05/02/2022 Date of discharge: Preadmission details: 04/24/2022 presented [facility] with complaint of dyspnea on exertion negative for orthopnea moderate in severity with exertional cough. Vital signs: 100.6-61-15-127/55-90% RA identified on exam is no acute distress with normal respiratory effort, otherwise fairly normal. CBC: WBC 7.0-Hgb 12.7-HCT 39.8-PLT 141 with neutrophil percent 75.7, lymphs percent 12.4 low. Chemistries within normal limits except BUN 15-CRE 1.51 with EGFR 48- GLU 143-calcium 8.2-total bilirubin 9.50-albumin 3.1-albumin globulin ratio 0.8. Lactic acid normal at 1.4. BNP 106.1 slightly elevated. UA demonstrated 1+ bilirubin, 4+ urobilinogen, 5-10 RBCs, 10-25 WBCs, 2+ bacteria, coarse granular casts 5-10. Chest x-ray no acute findings. EKG normal sinus rhythm with no injury pattern. Patient was discharged on dexamethasone 6 mg daily #6/0, doxycycline 100 mg p.o. twice daily #20/0, and multiple are 200 mg 800 mg every 12 hours x5 days 05/02/2022 presented [facility] with significant history of tremors, COPD, sleep apnea, CPAP, atrial fibrillation on flecainide, warfare and therapy with 2-week history of progressive weakness. Productive cough thick yellow sputum. Wheezes. Tested positive for COVID 19 9017 2021, with O2 saturation of 88% requiring supplemental oxygen. also tested positive for COVID and reportedly passed out while he was in the emergency department. Physical exam: Vital signs 96.1P-08-85-126/41-95% RA. Identified as well- developed and nourished, bradycardia, otherwise within normal limits. Labwork: CBC and chemistry profiles were unremarkable except for BUN of 36-CR of 1.89-GLU 165-bilirubin 1.10-AST 48-CA 8.3-albumin 2.5 with albumin/globulin ratio 0.6-BNP 207.5. Chest x-ray demonstrated diffuse interstitial coarsening consistent with COPD, nonspecific hazy opacification left lower lung which could represent collapsed airspace Admitted to Dr. Brandon Michel PCU Admission assessment and plan: 1. COVID-19 pneumonia with hypoxia: Started on Decadron in emergency which will be continued, Imodium as needed for diarrhea, Mucinex, or to as needed. Started on azithromycin and ceftriaxone in the emergency department, patient has listed allergy to azithromycin with diarrhea stopped azithromycin. Switch to Levaquin dosed per creatinine clearance. Strep pneumonia and lesion Urine antigens ordered. 2. CHRISTOPHER on CKD stage III 80 likely from diabetic neuropathy and hypertensive nephrosclerosis, baseline creatinine 1.35. Given saline bolus. Trend BMP and avoid nephrotoxins. 3. Paroxysmal atrial fibrillation with bradycardia: Monitor on telemetry, flecainide and metoprolol continued. INR is subtherapeutic on presentation, warfarin adjusted, trend INR 4. Chronic heart failure with preserved ejection fraction with echo 11/01/2021 showing estimated ejection fraction 55% with no diastolic dysfunction. Hold Lasix in setting of CHRISTOPHER 5. Diabetes mellitus: Blood glucose stable, hold metformin, initiate Accu-Cheks with coverage. 6. DVT prophylaxis. Hospital discharge summary: Facility: [facility] Date of admission: 10/31/2021 Date of discharge: Preadmission details: 10/31/2021 patient presented with [facility] emergency department with complaint of shortness of breath, chills, weakness, gradual onset, moderate severity. No measured fever. Patient has history of lung cancer finishing radiation 3 months ago, not currently on chemotherapy. Vital signs 97.8-88-16-130/88-97% room air. Described as well-developed, no acute distress. CBC: WNL, CMP WNL except BUN 21-CRE 1.33-GFR 56, glucose 132, calcium 8.3, albumin 3.0, globulin 4.6. Lactic acid normal 1.9. BNP normal 57.5. Urine within normal limits except 5-10 RBCs, 0-5 WBCs, rare bacteria. Chest x-ray demonstrated mild cardiomegaly with borderline heart failure, no active cardiopulmonary disease otherwise, mild hyperinflation, benign calcification in the right hilar and right infrahilar lesions, mild demineralization. EKG demonstrated normal sinus rhythm, no acute ST or T wave changes, first-degree AV block. Patient did desaturate to 89% while sitting in bed, placed on nasal cannula 2 L, with movement patient sat dropped again to 87%. Patient discussed with hospitalist and recommendation for observation. Hospital course: Patient admitted to PCU. Assessment and plan: 1. Acute on chronic HFpEF/diastolic heart failure exacerbation factor unclear. Possibly related nonadherence to fluid restrictions. And fluid restriction 1500 cc, daily weights, monitor renal and electrolyte function, troponin and 2D echo ordered. Duplex of lower extremity ordered due to edema right greater than left to rule out DVT. 2. 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 Umu Venegas. No overt evidence of pneumonia or COPD. Blood cultures x2 ordered. Bronchodilator every 6 hours, incentive spirometry and PEP for hygiene. Mention is made of non-small cell lung cancer diagnosed via bronchoscopic wash [facility]. 3. Paroxysmal atrial fibrillation status post ablation, oropharyngeal 3. Continue warfarin, metoprolol and flecainide. 4. Diabetes mellitus type 2 blood sugars, Humalog sliding scale, hold Metformin Dyslipidemia fasting profile in a.m.Atorvastatin 6. Ulcerative colitis on mesalamine 7. Chronic kidney disease stage III AAA, monitor electrolytes, started diuretic IV furosemide 8. Other multiple comorbidities including morbid obesity, cardiac smoker of 30 pack years. 9. DVT prophylaxis: Continue warfarin. 10. Opted for full code. 11/01/2021 ultrasound bilateral lower extremity showed no DVT 11/01/2021: Echocardiogram with contrast: LV size and LV SF WNL, ejection fraction 65%, no diastolic dysfunction, no regional wall motion abnormalities. RV normal size and RV SF. Left and right atrium normal size, no ASD. Mild focal mitral valve calcification anterior leaflet, mild HI. TV: No stenosis, unable to estimate RSVP. AV: Mild diffuse aortic valve thickening, no stenosis. Pulmonic valve WNL. Normal aortic root, no pericardial effusion. Additional labs: 11/02/2021 WBC 10.3-Hgb 13.4-HCT 40.8-PLT 169. 11/03/2021 sodium 136-CL 103-K4.1-CO2 25.0-BUN 37-CRE 1.43-glucose 269-EGFR 51. 11/01/2021 blood culture x2 no growth left and right hand. Sputum culture expectorated x2: Mixed baljinder, no Streptococcus or Staphylococcus isolated. Urine culture no growth, Legionella and Streptococcus pneumonia antigens negative. SARS Covid and flu test negative. Patient diagnosis was transition from congestive heart failure COPD based on findings. Antibiotics do not seem to be warranted. He improved over 48 hours with initiation of steroids and was weaned from 4 L to 0 over that timeframe. Patient saturations remained above 90% did not qualify for home oxygen. Pulmonology was consulted, recommend initiation of Anoro Ellipta as well as prednisone taper on discharge. Was found to have right-sided candidiasis in the axilla, initiate nystatin powder with good improvement. Discharged in stable condition. Patient is to follow-up with Dr. Gillespie regards to lung cancer in February and follow-up with me in 2 weeks. Discharge diagnoses: As above. Medication reconciliation: New medications: Nystatin 1000 units/g powder 1 application twice daily 15/0 Anoro Ellipta 62.5-25 MCG per actuation blister device: 1 inhalation every 24 hours, 60/0 Prednisone 10 mg daily #30/0 Other medications were continued without change. Follow-up scheduled 01/11/[address] Vikram Easton pulmonology Appointments to be scheduled with Dr. Amezcua Appointment with me for 03/26/2022 Personal history of colonic polyps 03/01/2021 03/01/2021 Chronic diastolic CHF (congestive heart failure) 04/01/2019 02/13/2022 Chronic ulcerative enterocolitis 12/10/2015 12/10/2015 Chronic anticoagulation 06/19/2015 02/23/20 16 Hemorrhage of gastrointestinal tract, unspecifie d 12/31/2014 12/31/2014 Atrial flutter by electrocardiogram 12/15/2014 02/23/2016 Acute gastritis without mention of hemorrhage 02/23/2016 Blood in stool 03/02/2009 02/23/2016 Diverticulitis of colon (without mention of hemo rrhage) 04/24/2006 02/23/2016 Unspecified constipation 04/05/2006 016 documented as of this encounter (statuses as of 10/31/2022) [facility]08-09-2022 History of Past illness Narrative* Problem Noted Date Resolved Date Combined form of age-related cataract, both eyes 03/15/2022 03/15/2022 Encounter for support and coordination of transi tion of care 11/05/2021 08/17/2022 Overview: Hospital discharge summary Facility: [facility] Date of admission: 05/02/2022 Date of discharge: Preadmission details: 04/24/2022 presented [facility] with complaint of dyspnea on exertion negative for orthopnea moderate in severity with exertional cough. Vital signs: 100.6-61-15-127/55-90% RA identified on exam is no acute distress with normal respiratory effort, otherwise fairly normal. CBC: WBC 7.0-Hgb 12.7-HCT 39.8-PLT 141 with neutrophil percent 75.7, lymphs percent 12.4 low. Chemistries within normal limits except BUN 15-CRE 1.51 with EGFR 48- GLU 143-calcium 8.2-total bilirubin 9.50-albumin 3.1-albumin globulin ratio 0.8. Lactic acid normal at 1.4. BNP 106.1 slightly elevated. UA demonstrated 1+ bilirubin, 4+ urobilinogen, 5-10 RBCs, 10-25 WBCs, 2+ bacteria, coarse granular casts 5-10. Chest x-ray no acute findings. EKG normal sinus rhythm with no injury pattern. Patient was discharged on dexamethasone 6 mg daily #6/0, doxycycline 100 mg p.o. twice daily #20/0, and multiple are 200 mg 800 mg every 12 hours x5 days 05/02/2022 presented [facility] with significant history of tremors, COPD, sleep apnea, CPAP, atrial fibrillation on flecainide, warfare and therapy with 2-week history of progressive weakness. Productive cough thick yellow sputum. Wheezes. Tested positive for COVID 19 9017 2021, with O2 saturation of 88% requiring supplemental oxygen. also tested positive for COVID and reportedly passed out while he was in the emergency department. Physical exam: Vital signs 96.6H-91-21-126/41-95% RA. Identified as well- developed and nourished, bradycardia, otherwise within normal limits. Labwork: CBC and chemistry profiles were unremarkable except for BUN of 36-CR of 1.89-GLU 165-bilirubin 1.10-AST 48-CA 8.3-albumin 2.5 with albumin/globulin ratio 0.6-BNP 207.5. Chest x-ray demonstrated diffuse interstitial coarsening consistent with COPD, nonspecific hazy opacification left lower lung which could represent collapsed airspace Admitted to Dr. Brandon Michel PCU Admission assessment and plan: 1. COVID-19 pneumonia with hypoxia: Started on Decadron in emergency which will be continued, Imodium as needed for diarrhea, Mucinex, or to as needed. Started on azithromycin and ceftriaxone in the emergency department, patient has listed allergy to azithromycin with diarrhea stopped azithromycin. Switch to Levaquin dosed per creatinine clearance. Strep pneumonia and lesion Urine antigens ordered. 2. CHRISTOPHER on CKD stage III 80 likely from diabetic neuropathy and hypertensive nephrosclerosis, baseline creatinine 1.35. Given saline bolus. Trend BMP and avoid nephrotoxins. 3. Paroxysmal atrial fibrillation with bradycardia: Monitor on telemetry, flecainide and metoprolol continued. INR is subtherapeutic on presentation, warfarin adjusted, trend INR 4. Chronic heart failure with preserved ejection fraction with echo 11/01/2021 showing estimated ejection fraction 55% with no diastolic dysfunction. Hold Lasix in setting of CHRISTOPHER 5. Diabetes mellitus: Blood glucose stable, hold metformin, initiate Accu-Cheks with coverage. 6. DVT prophylaxis. Hospital discharge summary: Facility: [facility] Date of admission: 10/31/2021 Date of discharge: Preadmission details: 10/31/2021 patient presented with [facility] emergency department with complaint of shortness of breath, chills, weakness, gradual onset, moderate severity. No measured fever. Patient has history of lung cancer finishing radiation 3 months ago, not currently on chemotherapy. Vital signs 97.8-88-16-130/88-97% room air. Described as well-developed, no acute distress. CBC: WNL, CMP WNL except BUN 21-CRE 1.33-GFR 56, glucose 132, calcium 8.3, albumin 3.0, globulin 4.6. Lactic acid normal 1.9. BNP normal 57.5. Urine within normal limits except 5-10 RBCs, 0-5 WBCs, rare bacteria. Chest x-ray demonstrated mild cardiomegaly with borderline heart failure, no active cardiopulmonary disease otherwise, mild hyperinflation, benign calcification in the right hilar and right infrahilar lesions, mild demineralization. EKG demonstrated normal sinus rhythm, no acute ST or T wave changes, first-degree AV block. Patient did desaturate to 89% while sitting in bed, placed on nasal cannula 2 L, with movement patient sat dropped again to 87%. Patient discussed with hospitalist and recommendation for observation. Hospital course: Patient admitted to PCU. Assessment and plan: 1. Acute on chronic HFpEF/diastolic heart failure exacerbation factor unclear. Possibly related nonadherence to fluid restrictions. And fluid restriction 1500 cc, daily weights, monitor renal and electrolyte function, troponin and 2D echo ordered. Duplex of lower extremity ordered due to edema right greater than left to rule out DVT. 2. 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 Umu Ziegler No overt evidence of pneumonia or COPD. Blood cultures x2 ordered. Bronchodilator every 6 hours, incentive spirometry and PEP for hygiene. Mention is made of non-small cell lung cancer diagnosed via bronchoscopic wash [facility]. 3. Paroxysmal atrial fibrillation status post ablation, oropharyngeal 3. Continue warfarin, metoprolol and flecainide. 4. Diabetes mellitus type 2 blood sugars, Humalog sliding scale, hold Metformin Dyslipidemia fasting profile in a.m.Atorvastatin 6. Ulcerative colitis on mesalamine 7. Chronic kidney disease stage III AAA, monitor electrolytes, started diuretic IV furosemide 8. Other multiple comorbidities including morbid obesity, cardiac smoker of 30 pack years. 9. DVT prophylaxis: Continue warfarin. 10. Opted for full code. 11/01/2021 ultrasound bilateral lower extremity showed no DVT 11/01/2021: Echocardiogram with contrast: LV size and LV SF WNL, ejection fraction 65%, no diastolic dysfunction, no regional wall motion abnormalities. RV normal size and RV SF. Left and right atrium normal size, no ASD. Mild focal mitral valve calcification anterior leaflet, mild HI. TV: No stenosis, unable to estimate RSVP. AV: Mild diffuse aortic valve thickening, no stenosis. Pulmonic valve WNL. Normal aortic root, no pericardial effusion. Additional labs: 11/02/2021 WBC 10.3-Hgb 13.4-HCT 40.8-PLT 169. 11/03/2021 sodium 136-CL 103-K4.1-CO2 25.0-BUN 37-CRE 1.43-glucose 269-EGFR 51. 11/01/2021 blood culture x2 no growth left and right hand. Sputum culture expectorated x2: Mixed baljinder, no Streptococcus or Staphylococcus isolated. Urine culture no growth, Legionella and Streptococcus pneumonia antigens negative. SARS Covid and flu test negative. Patient diagnosis was transition from congestive heart failure COPD based on findings. Antibiotics do not seem to be warranted. He improved over 48 hours with initiation of steroids and was weaned from 4 L to 0 over that timeframe. Patient saturations remained above 90% did not qualify for home oxygen. Pulmonology was consulted, recommend initiation of Anoro Ellipta as well as prednisone taper on discharge. Was found to have right-sided candidiasis in the axilla, initiate nystatin powder with good improvement. Discharged in stable condition. Patient is to follow-up with Dr. Gillespie regards to lung cancer in February and follow-up with me in 2 weeks. Discharge diagnoses: As above. Medication reconciliation: New medications: Nystatin 1000 units/g powder 1 application twice daily 15/0 Anoro Ellipta 62.5-25 MCG per actuation blister device: 1 inhalation every 24 hours, 60/0 Prednisone 10 mg daily #30/0 Other medications were continued without change. Follow-up scheduled 01/11/[address] Vikram Easton pulmonology Appointments to be scheduled with Dr. Amezcua Appointment with me for 03/26/2022 Personal history of colonic polyps 03/01/2021 03/01/2021 Chronic diastolic CHF (congestive heart failure) 04/01/2019 02/13/2022 Chronic ulcerative enterocolitis 12/10/2015 12/10/2015 Chronic anticoagulation 06/19/2015 02/23/20 16 Hemorrhage of gastrointestinal tract, unspecifie d 12/31/2014 12/31/2014 Atrial flutter by electrocardiogram 12/15/2014 02/23/2016 Acute gastritis without mention of hemorrhage 02/23/2016 Blood in stool 03/02/2009 02/23/2016 Diverticulitis of colon (without mention of hemo rrhage) 04/24/2006 02/23/2016 Unspecified constipation 04/05/2006 016 documented as of this encounter (statuses as of 11/02/2022) [facility]08-09-2022 History of Past illness Narrative* Problem Noted Date Resolved Date Combined form of age-related cataract, both eyes 03/15/2022 03/15/2022 Encounter for support and coordination of transi tion of care 11/05/2021 08/17/2022 Overview: Hospital discharge summary Facility: [facility] Date of admission: 05/02/2022 Date of discharge: Preadmission details: 04/24/2022 presented [facility] with complaint of dyspnea on exertion negative for orthopnea moderate in severity with exertional cough. Vital signs: 100.6-61-15-127/55-90% RA identified on exam is no acute distress with normal respiratory effort, otherwise fairly normal. CBC: WBC 7.0-Hgb 12.7-HCT 39.8-PLT 141 with neutrophil percent 75.7, lymphs percent 12.4 low. Chemistries within normal limits except BUN 15-CRE 1.51 with EGFR 48- GLU 143-calcium 8.2-total bilirubin 9.50-albumin 3.1-albumin globulin ratio 0.8. Lactic acid normal at 1.4. BNP 106.1 slightly elevated. UA demonstrated 1+ bilirubin, 4+ urobilinogen, 5-10 RBCs, 10-25 WBCs, 2+ bacteria, coarse granular casts 5-10. Chest x-ray no acute findings. EKG normal sinus rhythm with no injury pattern. Patient was discharged on dexamethasone 6 mg daily #6/0, doxycycline 100 mg p.o. twice daily #20/0, and multiple are 200 mg 800 mg every 12 hours x5 days 05/02/2022 presented [facility] with significant history of tremors, COPD, sleep apnea, CPAP, atrial fibrillation on flecainide, warfare and therapy with 2-week history of progressive weakness. Productive cough thick yellow sputum. Wheezes. Tested positive for COVID 19 9017 2021, with O2 saturation of 88% requiring supplemental oxygen. also tested positive for COVID and reportedly passed out while he was in the emergency department. Physical exam: Vital signs 96.7J-23-53-126/41-95% RA. Identified as well- developed and nourished, bradycardia, otherwise within normal limits. Labwork: CBC and chemistry profiles were unremarkable except for BUN of 36-CR of 1.89-GLU 165-bilirubin 1.10-AST 48-CA 8.3-albumin 2.5 with albumin/globulin ratio 0.6-BNP 207.5. Chest x-ray demonstrated diffuse interstitial coarsening consistent with COPD, nonspecific hazy opacification left lower lung which could represent collapsed airspace Admitted to Dr. Brandon Michel PCU Admission assessment and plan: 1. COVID-19 pneumonia with hypoxia: Started on Decadron in emergency which will be continued, Imodium as needed for diarrhea, Mucinex, or to as needed. Started on azithromycin and ceftriaxone in the emergency department, patient has listed allergy to azithromycin with diarrhea stopped azithromycin. Switch to Levaquin dosed per creatinine clearance. Strep pneumonia and lesion Urine antigens ordered. 2. CHRISTOPHER on CKD stage III 80 likely from diabetic neuropathy and hypertensive nephrosclerosis, baseline creatinine 1.35. Given saline bolus. Trend BMP and avoid nephrotoxins. 3. Paroxysmal atrial fibrillation with bradycardia: Monitor on telemetry, flecainide and metoprolol continued. INR is subtherapeutic on presentation, warfarin adjusted, trend INR 4. Chronic heart failure with preserved ejection fraction with echo 11/01/2021 showing estimated ejection fraction 55% with no diastolic dysfunction. Hold Lasix in setting of CHRISTOPHER 5. Diabetes mellitus: Blood glucose stable, hold metformin, initiate Accu-Cheks with coverage. 6. DVT prophylaxis. Hospital discharge summary: Facility: [facility] Date of admission: 10/31/2021 Date of discharge: Preadmission details: 10/31/2021 patient presented with [facility] emergency department with complaint of shortness of breath, chills, weakness, gradual onset, moderate severity. No measured fever. Patient has history of lung cancer finishing radiation 3 months ago, not currently on chemotherapy. Vital signs 97.8-88-16-130/88-97% room air. Described as well-developed, no acute distress. CBC: WNL, CMP WNL except BUN 21-CRE 1.33-GFR 56, glucose 132, calcium 8.3, albumin 3.0, globulin 4.6. Lactic acid normal 1.9. BNP normal 57.5. Urine within normal limits except 5-10 RBCs, 0-5 WBCs, rare bacteria. Chest x-ray demonstrated mild cardiomegaly with borderline heart failure, no active cardiopulmonary disease otherwise, mild hyperinflation, benign calcification in the right hilar and right infrahilar lesions, mild demineralization. EKG demonstrated normal sinus rhythm, no acute ST or T wave changes, first-degree AV block. Patient did desaturate to 89% while sitting in bed, placed on nasal cannula 2 L, with movement patient sat dropped again to 87%. Patient discussed with hospitalist and recommendation for observation. Hospital course: Patient admitted to PCU. Assessment and plan: 1. Acute on chronic HFpEF/diastolic heart failure exacerbation factor unclear. Possibly related nonadherence to fluid restrictions. And fluid restriction 1500 cc, daily weights, monitor renal and electrolyte function, troponin and 2D echo ordered. Duplex of lower extremity ordered due to edema right greater than left to rule out DVT. 2. 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 Umu Ziegler No overt evidence of pneumonia or COPD. Blood cultures x2 ordered. Bronchodilator every 6 hours, incentive spirometry and PEP for hygiene. Mention is made of non-small cell lung cancer diagnosed via bronchoscopic wash [facility]. 3. Paroxysmal atrial fibrillation status post ablation, oropharyngeal 3. Continue warfarin, metoprolol and flecainide. 4. Diabetes mellitus type 2 blood sugars, Humalog sliding scale, hold Metformin Dyslipidemia fasting profile in a.m.Atorvastatin 6. Ulcerative colitis on mesalamine 7. Chronic kidney disease stage III AAA, monitor electrolytes, started diuretic IV furosemide 8. Other multiple comorbidities including morbid obesity, cardiac smoker of 30 pack years. 9. DVT prophylaxis: Continue warfarin. 10. Opted for full code. 11/01/2021 ultrasound bilateral lower extremity showed no DVT 11/01/2021: Echocardiogram with contrast: LV size and LV SF WNL, ejection fraction 65%, no diastolic dysfunction, no regional wall motion abnormalities. RV normal size and RV SF. Left and right atrium normal size, no ASD. Mild focal mitral valve calcification anterior leaflet, mild HI. TV: No stenosis, unable to estimate RSVP. AV: Mild diffuse aortic valve thickening, no stenosis. Pulmonic valve WNL. Normal aortic root, no pericardial effusion. Additional labs: 11/02/2021 WBC 10.3-Hgb 13.4-HCT 40.8-PLT 169. 11/03/2021 sodium 136-CL 103-K4.1-CO2 25.0-BUN 37-CRE 1.43-glucose 269-EGFR 51. 11/01/2021 blood culture x2 no growth left and right hand. Sputum culture expectorated x2: Mixed baljinder, no Streptococcus or Staphylococcus isolated. Urine culture no growth, Legionella and Streptococcus pneumonia antigens negative. SARS Covid and flu test negative. Patient diagnosis was transition from congestive heart failure COPD based on findings. Antibiotics do not seem to be warranted. He improved over 48 hours with initiation of steroids and was weaned from 4 L to 0 over that timeframe. Patient saturations remained above 90% did not qualify for home oxygen. Pulmonology was consulted, recommend initiation of Anoro Ellipta as well as prednisone taper on discharge. Was found to have right-sided candidiasis in the axilla, initiate nystatin powder with good improvement. Discharged in stable condition. Patient is to follow-up with Dr. Gillespie regards to lung cancer in February and follow-up with me in 2 weeks. Discharge diagnoses: As above. Medication reconciliation: New medications: Nystatin 1000 units/g powder 1 application twice daily 15/0 Anoro Ellipta 62.5-25 MCG per actuation blister device: 1 inhalation every 24 hours, 60/0 Prednisone 10 mg daily #30/0 Other medications were continued without change. Follow-up scheduled 01/11/[address] Vikram Easton pulmonology Appointments to be scheduled with Dr. Amezcua Appointment with me for 03/26/2022 Personal history of colonic polyps 03/01/2021 03/01/2021 Chronic diastolic CHF (congestive heart failure) 04/01/2019 02/13/2022 Chronic ulcerative enterocolitis 12/10/2015 12/10/2015 Chronic anticoagulation 06/19/2015 02/23/20 16 Hemorrhage of gastrointestinal tract, unspecifie d 12/31/2014 12/31/2014 Atrial flutter by electrocardiogram 12/15/2014 02/23/2016 Acute gastritis without mention of hemorrhage 02/23/2016 Blood in stool 03/02/2009 02/23/2016 Diverticulitis of colon (without mention of hemo rrhage) 04/24/2006 02/23/2016 Unspecified constipation 04/05/2006 016 documented as of this encounter (statuses as of 11/02/2022) [facility]08-09-2022 History of Past illness Narrative* Problem Noted Date Resolved Date Combined form of age-related cataract, both eyes 03/15/2022 03/15/2022 Encounter for support and coordination of transi tion of care 11/05/2021 08/17/2022 Overview: Hospital discharge summary Facility: [facility] Date of admission: 05/02/2022 Date of discharge: Preadmission details: 04/24/2022 presented [facility] with complaint of dyspnea on exertion negative for orthopnea moderate in severity with exertional cough. Vital signs: 100.6-61-15-127/55-90% RA identified on exam is no acute distress with normal respiratory effort, otherwise fairly normal. CBC: WBC 7.0-Hgb 12.7-HCT 39.8-PLT 141 with neutrophil percent 75.7, lymphs percent 12.4 low. Chemistries within normal limits except BUN 15-CRE 1.51 with EGFR 48- GLU 143-calcium 8.2-total bilirubin 9.50-albumin 3.1-albumin globulin ratio 0.8. Lactic acid normal at 1.4. BNP 106.1 slightly elevated. UA demonstrated 1+ bilirubin, 4+ urobilinogen, 5-10 RBCs, 10-25 WBCs, 2+ bacteria, coarse granular casts 5-10. Chest x-ray no acute findings. EKG normal sinus rhythm with no injury pattern. Patient was discharged on dexamethasone 6 mg daily #6/0, doxycycline 100 mg p.o. twice daily #20/0, and multiple are 200 mg 800 mg every 12 hours x5 days 05/02/2022 presented [facility] with significant history of tremors, COPD, sleep apnea, CPAP, atrial fibrillation on flecainide, warfare and therapy with 2-week history of progressive weakness. Productive cough thick yellow sputum. Wheezes. Tested positive for COVID 19 18 2021, with O2 saturation of 88% requiring supplemental oxygen. also tested positive for COVID and reportedly passed out while he was in the emergency department. Physical exam: Vital signs 96.6E-67-67-126/41-95% RA. Identified as well- developed and nourished, bradycardia, otherwise within normal limits. Labwork: CBC and chemistry profiles were unremarkable except for BUN of 36-CR of 1.89-GLU 165-bilirubin 1.10-AST 48-CA 8.3-albumin 2.5 with albumin/globulin ratio 0.6-BNP 207.5. Chest x-ray demonstrated diffuse interstitial coarsening consistent with COPD, nonspecific hazy opacification left lower lung which could represent collapsed airspace Admitted to Dr. Brandon Michel PCU Admission assessment and plan: 1. COVID-19 pneumonia with hypoxia: Started on Decadron in emergency which will be continued, Imodium as needed for diarrhea, Mucinex, or to as needed. Started on azithromycin and ceftriaxone in the emergency department, patient has listed allergy to azithromycin with diarrhea stopped azithromycin. Switch to Levaquin dosed per creatinine clearance. Strep pneumonia and lesion Urine antigens ordered. 2. CHRISTOPHER on CKD stage III 80 likely from diabetic neuropathy and hypertensive nephrosclerosis, baseline creatinine 1.35. Given saline bolus. Trend BMP and avoid nephrotoxins. 3. Paroxysmal atrial fibrillation with bradycardia: Monitor on telemetry, flecainide and metoprolol continued. INR is subtherapeutic on presentation, warfarin adjusted, trend INR 4. Chronic heart failure with preserved ejection fraction with echo 11/01/2021 showing estimated ejection fraction 55% with no diastolic dysfunction. Hold Lasix in setting of CHRISTOPHER 5. Diabetes mellitus: Blood glucose stable, hold metformin, initiate Accu-Cheks with coverage. 6. DVT prophylaxis. Hospital discharge summary: Facility: [facility] Date of admission: 10/31/2021 Date of discharge: Preadmission details: 10/31/2021 patient presented with [facility] emergency department with complaint of shortness of breath, chills, weakness, gradual onset, moderate severity. No measured fever. Patient has history of lung cancer finishing radiation 3 months ago, not currently on chemotherapy. Vital signs 97.8-88-16-130/88-97% room air. Described as well-developed, no acute distress. CBC: WNL, CMP WNL except BUN 21-CRE 1.33-GFR 56, glucose 132, calcium 8.3, albumin 3.0, globulin 4.6. Lactic acid normal 1.9. BNP normal 57.5. Urine within normal limits except 5-10 RBCs, 0-5 WBCs, rare bacteria. Chest x-ray demonstrated mild cardiomegaly with borderline heart failure, no active cardiopulmonary disease otherwise, mild hyperinflation, benign calcification in the right hilar and right infrahilar lesions, mild demineralization. EKG demonstrated normal sinus rhythm, no acute ST or T wave changes, first-degree AV block. Patient did desaturate to 89% while sitting in bed, placed on nasal cannula 2 L, with movement patient sat dropped again to 87%. Patient discussed with hospitalist and recommendation for observation. Hospital course: Patient admitted to PCU. Assessment and plan: 1. Acute on chronic HFpEF/diastolic heart failure exacerbation factor unclear. Possibly related nonadherence to fluid restrictions. And fluid restriction 1500 cc, daily weights, monitor renal and electrolyte function, troponin and 2D echo ordered. Duplex of lower extremity ordered due to edema right greater than left to rule out DVT. 2. 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 Umu Ziegler No overt evidence of pneumonia or COPD. Blood cultures x2 ordered. Bronchodilator every 6 hours, incentive spirometry and PEP for hygiene. Mention is made of non-small cell lung cancer diagnosed via bronchoscopic wash [facility]. 3. Paroxysmal atrial fibrillation status post ablation, oropharyngeal 3. Continue warfarin, metoprolol and flecainide. 4. Diabetes mellitus type 2 blood sugars, Humalog sliding scale, hold Metformin Dyslipidemia fasting profile in a.m.Atorvastatin 6. Ulcerative colitis on mesalamine 7. Chronic kidney disease stage III AAA, monitor electrolytes, started diuretic IV furosemide 8. Other multiple comorbidities including morbid obesity, cardiac smoker of 30 pack years. 9. DVT prophylaxis: Continue warfarin. 10. Opted for full code. 11/01/2021 ultrasound bilateral lower extremity showed no DVT 11/01/2021: Echocardiogram with contrast: LV size and LV SF WNL, ejection fraction 65%, no diastolic dysfunction, no regional wall motion abnormalities. RV normal size and RV SF. Left and right atrium normal size, no ASD. Mild focal mitral valve calcification anterior leaflet, mild HI. TV: No stenosis, unable to estimate RSVP. AV: Mild diffuse aortic valve thickening, no stenosis. Pulmonic valve WNL. Normal aortic root, no pericardial effusion. Additional labs: 11/02/2021 WBC 10.3-Hgb 13.4-HCT 40.8-PLT 169. 11/03/2021 sodium 136-CL 103-K4.1-CO2 25.0-BUN 37-CRE 1.43-glucose 269-EGFR 51. 11/01/2021 blood culture x2 no growth left and right hand. Sputum culture expectorated x2: Mixed baljinder, no Streptococcus or Staphylococcus isolated. Urine culture no growth, Legionella and Streptococcus pneumonia antigens negative. SARS Covid and flu test negative. Patient diagnosis was transition from congestive heart failure COPD based on findings. Antibiotics do not seem to be warranted. He improved over 48 hours with initiation of steroids and was weaned from 4 L to 0 over that timeframe. Patient saturations remained above 90% did not qualify for home oxygen. Pulmonology was consulted, recommend initiation of Anoro Ellipta as well as prednisone taper on discharge. Was found to have right-sided candidiasis in the axilla, initiate nystatin powder with good improvement. Discharged in stable condition. Patient is to follow-up with Dr. Gillespie regards to lung cancer in February and follow-up with me in 2 weeks. Discharge diagnoses: As above. Medication reconciliation: New medications: Nystatin 1000 units/g powder 1 application twice daily 15/0 Anoro Ellipta 62.5-25 MCG per actuation blister device: 1 inhalation every 24 hours, 60/0 Prednisone 10 mg daily #30/0 Other medications were continued without change. Follow-up scheduled 01/11/[address] Vikram Easton pulmonology Appointments to be scheduled with Dr. Amezcua Appointment with me for 03/26/2022 Personal history of colonic polyps 03/01/2021 03/01/2021 Chronic diastolic CHF (congestive heart failure) 04/01/2019 02/13/2022 Chronic ulcerative enterocolitis 12/10/2015 12/10/2015 Chronic anticoagulation 06/19/2015 02/23/20 16 Hemorrhage of gastrointestinal tract, unspecifie d 12/31/2014 12/31/2014 Atrial flutter by electrocardiogram 12/15/2014 02/23/2016 Acute gastritis without mention of hemorrhage 02/23/2016 Blood in stool 03/02/2009 02/23/2016 Diverticulitis of colon (without mention of hemo rrhage) 04/24/2006 02/23/2016 Unspecified constipation 04/05/2006 016 documented as of this encounter (statuses as of 11/10/2022) [facility]08-09-2022 History of Past illness Narrative* Problem Noted Date Resolved Date Combined form of age-related cataract, both eyes 03/15/2022 03/15/2022 Encounter for support and coordination of transi tion of care 11/05/2021 08/17/2022 Overview: Hospital discharge summary Facility: [facility] Date of admission: 05/02/2022 Date of discharge: Preadmission details: 04/24/2022 presented [facility] with complaint of dyspnea on exertion negative for orthopnea moderate in severity with exertional cough. Vital signs: 100.6-61-15-127/55-90% RA identified on exam is no acute distress with normal respiratory effort, otherwise fairly normal. CBC: WBC 7.0-Hgb 12.7-HCT 39.8-PLT 141 with neutrophil percent 75.7, lymphs percent 12.4 low. Chemistries within normal limits except BUN 15-CRE 1.51 with EGFR 48- GLU 143-calcium 8.2-total bilirubin 9.50-albumin 3.1-albumin globulin ratio 0.8. Lactic acid normal at 1.4. BNP 106.1 slightly elevated. UA demonstrated 1+ bilirubin, 4+ urobilinogen, 5-10 RBCs, 10-25 WBCs, 2+ bacteria, coarse granular casts 5-10. Chest x-ray no acute findings. EKG normal sinus rhythm with no injury pattern. Patient was discharged on dexamethasone 6 mg daily #6/0, doxycycline 100 mg p.o. twice daily #20/0, and multiple are 200 mg 800 mg every 12 hours x5 days 05/02/2022 presented [facility] with significant history of tremors, COPD, sleep apnea, CPAP, atrial fibrillation on flecainide, warfare and therapy with 2-week history of progressive weakness. Productive cough thick yellow sputum. Wheezes. Tested positive for COVID 19 9017 2021, with O2 saturation of 88% requiring supplemental oxygen. also tested positive for COVID and reportedly passed out while he was in the emergency department. Physical exam: Vital signs 96.9F-93-85-126/41-95% RA. Identified as well- developed and nourished, bradycardia, otherwise within normal limits. Labwork: CBC and chemistry profiles were unremarkable except for BUN of 36-CR of 1.89-GLU 165-bilirubin 1.10-AST 48-CA 8.3-albumin 2.5 with albumin/globulin ratio 0.6-BNP 207.5. Chest x-ray demonstrated diffuse interstitial coarsening consistent with COPD, nonspecific hazy opacification left lower lung which could represent collapsed airspace Admitted to Dr. Brandon Michel PCU Admission assessment and plan: 1. COVID-19 pneumonia with hypoxia: Started on Decadron in emergency which will be continued, Imodium as needed for diarrhea, Mucinex, or to as needed. Started on azithromycin and ceftriaxone in the emergency department, patient has listed allergy to azithromycin with diarrhea stopped azithromycin. Switch to Levaquin dosed per creatinine clearance. Strep pneumonia and lesion Urine antigens ordered. 2. CHRISTOPHER on CKD stage III 80 likely from diabetic neuropathy and hypertensive nephrosclerosis, baseline creatinine 1.35. Given saline bolus. Trend BMP and avoid nephrotoxins. 3. Paroxysmal atrial fibrillation with bradycardia: Monitor on telemetry, flecainide and metoprolol continued. INR is subtherapeutic on presentation, warfarin adjusted, trend INR 4. Chronic heart failure with preserved ejection fraction with echo 11/01/2021 showing estimated ejection fraction 55% with no diastolic dysfunction. Hold Lasix in setting of CHRISTOPHER 5. Diabetes mellitus: Blood glucose stable, hold metformin, initiate Accu-Cheks with coverage. 6. DVT prophylaxis. Hospital discharge summary: Facility: [facility] Date of admission: 10/31/2021 Date of discharge: Preadmission details: 10/31/2021 patient presented with [facility] emergency department with complaint of shortness of breath, chills, weakness, gradual onset, moderate severity. No measured fever. Patient has history of lung cancer finishing radiation 3 months ago, not currently on chemotherapy. Vital signs 97.8-88-16-130/88-97% room air. Described as well-developed, no acute distress. CBC: WNL, CMP WNL except BUN 21-CRE 1.33-GFR 56, glucose 132, calcium 8.3, albumin 3.0, globulin 4.6. Lactic acid normal 1.9. BNP normal 57.5. Urine within normal limits except 5-10 RBCs, 0-5 WBCs, rare bacteria. Chest x-ray demonstrated mild cardiomegaly with borderline heart failure, no active cardiopulmonary disease otherwise, mild hyperinflation, benign calcification in the right hilar and right infrahilar lesions, mild demineralization. EKG demonstrated normal sinus rhythm, no acute ST or T wave changes, first-degree AV block. Patient did desaturate to 89% while sitting in bed, placed on nasal cannula 2 L, with movement patient sat dropped again to 87%. Patient discussed with hospitalist and recommendation for observation. Hospital course: Patient admitted to PCU. Assessment and plan: 1. Acute on chronic HFpEF/diastolic heart failure exacerbation factor unclear. Possibly related nonadherence to fluid restrictions. And fluid restriction 1500 cc, daily weights, monitor renal and electrolyte function, troponin and 2D echo ordered. Duplex of lower extremity ordered due to edema right greater than left to rule out DVT. 2. 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 Umu Venegas. No overt evidence of pneumonia or COPD. Blood cultures x2 ordered. Bronchodilator every 6 hours, incentive spirometry and PEP for hygiene. Mention is made of non-small cell lung cancer diagnosed via bronchoscopic wash [facility]. 3. Paroxysmal atrial fibrillation status post ablation, oropharyngeal 3. Continue warfarin, metoprolol and flecainide. 4. Diabetes mellitus type 2 blood sugars, Humalog sliding scale, hold Metformin Dyslipidemia fasting profile in a.m.Atorvastatin 6. Ulcerative colitis on mesalamine 7. Chronic kidney disease stage III AAA, monitor electrolytes, started diuretic IV furosemide 8. Other multiple comorbidities including morbid obesity, cardiac smoker of 30 pack years. 9. DVT prophylaxis: Continue warfarin. 10. Opted for full code. 11/01/2021 ultrasound bilateral lower extremity showed no DVT 11/01/2021: Echocardiogram with contrast: LV size and LV SF WNL, ejection fraction 65%, no diastolic dysfunction, no regional wall motion abnormalities. RV normal size and RV SF. Left and right atrium normal size, no ASD. Mild focal mitral valve calcification anterior leaflet, mild HI. TV: No stenosis, unable to estimate RSVP. AV: Mild diffuse aortic valve thickening, no stenosis. Pulmonic valve WNL. Normal aortic root, no pericardial effusion. Additional labs: 11/02/2021 WBC 10.3-Hgb 13.4-HCT 40.8-PLT 169. 11/03/2021 sodium 136-CL 103-K4.1-CO2 25.0-BUN 37-CRE 1.43-glucose 269-EGFR 51. 11/01/2021 blood culture x2 no growth left and right hand. Sputum culture expectorated x2: Mixed baljinder, no Streptococcus or Staphylococcus isolated. Urine culture no growth, Legionella and Streptococcus pneumonia antigens negative. SARS Covid and flu test negative. Patient diagnosis was transition from congestive heart failure COPD based on findings. Antibiotics do not seem to be warranted. He improved over 48 hours with initiation of steroids and was weaned from 4 L to 0 over that timeframe. Patient saturations remained above 90% did not qualify for home oxygen. Pulmonology was consulted, recommend initiation of Anoro Ellipta as well as prednisone taper on discharge. Was found to have right-sided candidiasis in the axilla, initiate nystatin powder with good improvement. Discharged in stable condition. Patient is to follow-up with Dr. Gillespie regards to lung cancer in February and follow-up with me in 2 weeks. Discharge diagnoses: As above. Medication reconciliation: New medications: Nystatin 1000 units/g powder 1 application twice daily 15/0 Anoro Ellipta 62.5-25 MCG per actuation blister device: 1 inhalation every 24 hours, 60/0 Prednisone 10 mg daily #30/0 Other medications were continued without change. Follow-up scheduled 01/11/[address] Vikram Easton pulmonology Appointments to be scheduled with Dr. Amezcua Appointment with me for 03/26/2022 Personal history of colonic polyps 03/01/2021 03/01/2021 Chronic diastolic CHF (congestive heart failure) 04/01/2019 02/13/2022 Chronic ulcerative enterocolitis 12/10/2015 12/10/2015 Chronic anticoagulation 06/19/2015 02/23/20 16 Hemorrhage of gastrointestinal tract, unspecifie d 12/31/2014 12/31/2014 Atrial flutter by electrocardiogram 12/15/2014 02/23/2016 Acute gastritis without mention of hemorrhage 02/23/2016 Blood in stool 03/02/2009 02/23/2016 Diverticulitis of colon (without mention of hemo rrhage) 04/24/2006 02/23/2016 Unspecified constipation 04/05/2006 016 documented as of this encounter (statuses as of 11/15/2022) [facility]08-09-2022 History of Past illness Narrative* Problem Noted Date Resolved Date Combined form of age-related cataract, both eyes 03/15/2022 03/15/2022 Encounter for support and coordination of transi tion of care 11/05/2021 08/17/2022 Overview: Hospital discharge summary Facility: [facility] Date of admission: 05/02/2022 Date of discharge: Preadmission details: 04/24/2022 presented [facility] with complaint of dyspnea on exertion negative for orthopnea moderate in severity with exertional cough. Vital signs: 100.6-61-15-127/55-90% RA identified on exam is no acute distress with normal respiratory effort, otherwise fairly normal. CBC: WBC 7.0-Hgb 12.7-HCT 39.8-PLT 141 with neutrophil percent 75.7, lymphs percent 12.4 low. Chemistries within normal limits except BUN 15-CRE 1.51 with EGFR 48- GLU 143-calcium 8.2-total bilirubin 9.50-albumin 3.1-albumin globulin ratio 0.8. Lactic acid normal at 1.4. BNP 106.1 slightly elevated. UA demonstrated 1+ bilirubin, 4+ urobilinogen, 5-10 RBCs, 10-25 WBCs, 2+ bacteria, coarse granular casts 5-10. Chest x-ray no acute findings. EKG normal sinus rhythm with no injury pattern. Patient was discharged on dexamethasone 6 mg daily #6/0, doxycycline 100 mg p.o. twice daily #20/0, and multiple are 200 mg 800 mg every 12 hours x5 days 05/02/2022 presented [facility] with significant history of tremors, COPD, sleep apnea, CPAP, atrial fibrillation on flecainide, warfare and therapy with 2-week history of progressive weakness. Productive cough thick yellow sputum. Wheezes. Tested positive for COVID 19 9017 2021, with O2 saturation of 88% requiring supplemental oxygen. also tested positive for COVID and reportedly passed out while he was in the emergency department. Physical exam: Vital signs 96.0F-20-26-126/41-95% RA. Identified as well- developed and nourished, bradycardia, otherwise within normal limits. Labwork: CBC and chemistry profiles were unremarkable except for BUN of 36-CR of 1.89-GLU 165-bilirubin 1.10-AST 48-CA 8.3-albumin 2.5 with albumin/globulin ratio 0.6-BNP 207.5. Chest x-ray demonstrated diffuse interstitial coarsening consistent with COPD, nonspecific hazy opacification left lower lung which could represent collapsed airspace Admitted to Dr. Brandon Michel PCU Admission assessment and plan: 1. COVID-19 pneumonia with hypoxia: Started on Decadron in emergency which will be continued, Imodium as needed for diarrhea, Mucinex, or to as needed. Started on azithromycin and ceftriaxone in the emergency department, patient has listed allergy to azithromycin with diarrhea stopped azithromycin. Switch to Levaquin dosed per creatinine clearance. Strep pneumonia and lesion Urine antigens ordered. 2. CHRISTOPHER on CKD stage III 80 likely from diabetic neuropathy and hypertensive nephrosclerosis, baseline creatinine 1.35. Given saline bolus. Trend BMP and avoid nephrotoxins. 3. Paroxysmal atrial fibrillation with bradycardia: Monitor on telemetry, flecainide and metoprolol continued. INR is subtherapeutic on presentation, warfarin adjusted, trend INR 4. Chronic heart failure with preserved ejection fraction with echo 11/01/2021 showing estimated ejection fraction 55% with no diastolic dysfunction. Hold Lasix in setting of CHRISTOPHER 5. Diabetes mellitus: Blood glucose stable, hold metformin, initiate Accu-Cheks with coverage. 6. DVT prophylaxis. Hospital discharge summary: Facility: [facility] Date of admission: 10/31/2021 Date of discharge: Preadmission details: 10/31/2021 patient presented with [facility] emergency department with complaint of shortness of breath, chills, weakness, gradual onset, moderate severity. No measured fever. Patient has history of lung cancer finishing radiation 3 months ago, not currently on chemotherapy. Vital signs 97.8-88-16-130/88-97% room air. Described as well-developed, no acute distress. CBC: WNL, CMP WNL except BUN 21-CRE 1.33-GFR 56, glucose 132, calcium 8.3, albumin 3.0, globulin 4.6. Lactic acid normal 1.9. BNP normal 57.5. Urine within normal limits except 5-10 RBCs, 0-5 WBCs, rare bacteria. Chest x-ray demonstrated mild cardiomegaly with borderline heart failure, no active cardiopulmonary disease otherwise, mild hyperinflation, benign calcification in the right hilar and right infrahilar lesions, mild demineralization. EKG demonstrated normal sinus rhythm, no acute ST or T wave changes, first-degree AV block. Patient did desaturate to 89% while sitting in bed, placed on nasal cannula 2 L, with movement patient sat dropped again to 87%. Patient discussed with hospitalist and recommendation for observation. Hospital course: Patient admitted to PCU. Assessment and plan: 1. Acute on chronic HFpEF/diastolic heart failure exacerbation factor unclear. Possibly related nonadherence to fluid restrictions. And fluid restriction 1500 cc, daily weights, monitor renal and electrolyte function, troponin and 2D echo ordered. Duplex of lower extremity ordered due to edema right greater than left to rule out DVT. 2. 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 Umu Venegas. No overt evidence of pneumonia or COPD. Blood cultures x2 ordered. Bronchodilator every 6 hours, incentive spirometry and PEP for hygiene. Mention is made of non-small cell lung cancer diagnosed via bronchoscopic wash [facility]. 3. Paroxysmal atrial fibrillation status post ablation, oropharyngeal 3. Continue warfarin, metoprolol and flecainide. 4. Diabetes mellitus type 2 blood sugars, Humalog sliding scale, hold Metformin Dyslipidemia fasting profile in a.m.Atorvastatin 6. Ulcerative colitis on mesalamine 7. Chronic kidney disease stage III AAA, monitor electrolytes, started diuretic IV furosemide 8. Other multiple comorbidities including morbid obesity, cardiac smoker of 30 pack years. 9. DVT prophylaxis: Continue warfarin. 10. Opted for full code. 11/01/2021 ultrasound bilateral lower extremity showed no DVT 11/01/2021: Echocardiogram with contrast: LV size and LV SF WNL, ejection fraction 65%, no diastolic dysfunction, no regional wall motion abnormalities. RV normal size and RV SF. Left and right atrium normal size, no ASD. Mild focal mitral valve calcification anterior leaflet, mild HI. TV: No stenosis, unable to estimate RSVP. AV: Mild diffuse aortic valve thickening, no stenosis. Pulmonic valve WNL. Normal aortic root, no pericardial effusion. Additional labs: 11/02/2021 WBC 10.3-Hgb 13.4-HCT 40.8-PLT 169. 11/03/2021 sodium 136-CL 103-K4.1-CO2 25.0-BUN 37-CRE 1.43-glucose 269-EGFR 51. 11/01/2021 blood culture x2 no growth left and right hand. Sputum culture expectorated x2: Mixed baljinder, no Streptococcus or Staphylococcus isolated. Urine culture no growth, Legionella and Streptococcus pneumonia antigens negative. SARS Covid and flu test negative. Patient diagnosis was transition from congestive heart failure COPD based on findings. Antibiotics do not seem to be warranted. He improved over 48 hours with initiation of steroids and was weaned from 4 L to 0 over that timeframe. Patient saturations remained above 90% did not qualify for home oxygen. Pulmonology was consulted, recommend initiation of Anoro Ellipta as well as prednisone taper on discharge. Was found to have right-sided candidiasis in the axilla, initiate nystatin powder with good improvement. Discharged in stable condition. Patient is to follow-up with Dr. Gillespie regards to lung cancer in February and follow-up with me in 2 weeks. Discharge diagnoses: As above. Medication reconciliation: New medications: Nystatin 1000 units/g powder 1 application twice daily 15/0 Anoro Ellipta 62.5-25 MCG per actuation blister device: 1 inhalation every 24 hours, 60/0 Prednisone 10 mg daily #30/0 Other medications were continued without change. Follow-up scheduled 01/11/[address] Vikram Easton pulmonology Appointments to be scheduled with Dr. Amezcua Appointment with me for 03/26/2022 Personal history of colonic polyps 03/01/2021 03/01/2021 Chronic diastolic CHF (congestive heart failure) 04/01/2019 02/13/2022 Chronic ulcerative enterocolitis 12/10/2015 12/10/2015 Chronic anticoagulation 06/19/2015 02/23/20 16 Hemorrhage of gastrointestinal tract, unspecifie d 12/31/2014 12/31/2014 Atrial flutter by electrocardiogram 12/15/2014 02/23/2016 Acute gastritis without mention of hemorrhage 02/23/2016 Blood in stool 03/02/2009 02/23/2016 Diverticulitis of colon (without mention of hemo rrhage) 04/24/2006 02/23/2016 Unspecified constipation 04/05/2006 016 documented as of this encounter (statuses as of 11/18/2022) [facility]08-09-2022 History of Past illness Narrative* Problem Noted Date Resolved Date Combined form of age-related cataract, both eyes 03/15/2022 03/15/2022 Encounter for support and coordination of transi tion of care 11/05/2021 08/17/2022 Overview: Hospital discharge summary Facility: [facility] Date of admission: 05/02/2022 Date of discharge: Preadmission details: 04/24/2022 presented [facility] with complaint of dyspnea on exertion negative for orthopnea moderate in severity with exertional cough. Vital signs: 100.6-61-15-127/55-90% RA identified on exam is no acute distress with normal respiratory effort, otherwise fairly normal. CBC: WBC 7.0-Hgb 12.7-HCT 39.8-PLT 141 with neutrophil percent 75.7, lymphs percent 12.4 low. Chemistries within normal limits except BUN 15-CRE 1.51 with EGFR 48- GLU 143-calcium 8.2-total bilirubin 9.50-albumin 3.1-albumin globulin ratio 0.8. Lactic acid normal at 1.4. BNP 106.1 slightly elevated. UA demonstrated 1+ bilirubin, 4+ urobilinogen, 5-10 RBCs, 10-25 WBCs, 2+ bacteria, coarse granular casts 5-10. Chest x-ray no acute findings. EKG normal sinus rhythm with no injury pattern. Patient was discharged on dexamethasone 6 mg daily #6/0, doxycycline 100 mg p.o. twice daily #20/0, and multiple are 200 mg 800 mg every 12 hours x5 days 05/02/2022 presented [facility] with significant history of tremors, COPD, sleep apnea, CPAP, atrial fibrillation on flecainide, warfare and therapy with 2-week history of progressive weakness. Productive cough thick yellow sputum. Wheezes. Tested positive for COVID 19 9017 2021, with O2 saturation of 88% requiring supplemental oxygen. also tested positive for COVID and reportedly passed out while he was in the emergency department. Physical exam: Vital signs 96.2J-77-05-126/41-95% RA. Identified as well- developed and nourished, bradycardia, otherwise within normal limits. Labwork: CBC and chemistry profiles were unremarkable except for BUN of 36-CR of 1.89-GLU 165-bilirubin 1.10-AST 48-CA 8.3-albumin 2.5 with albumin/globulin ratio 0.6-BNP 207.5. Chest x-ray demonstrated diffuse interstitial coarsening consistent with COPD, nonspecific hazy opacification left lower lung which could represent collapsed airspace Admitted to Dr. Brandon Michel PCU Admission assessment and plan: 1. COVID-19 pneumonia with hypoxia: Started on Decadron in emergency which will be continued, Imodium as needed for diarrhea, Mucinex, or to as needed. Started on azithromycin and ceftriaxone in the emergency department, patient has listed allergy to azithromycin with diarrhea stopped azithromycin. Switch to Levaquin dosed per creatinine clearance. Strep pneumonia and lesion Urine antigens ordered. 2. CHRISTOPHER on CKD stage III 80 likely from diabetic neuropathy and hypertensive nephrosclerosis, baseline creatinine 1.35. Given saline bolus. Trend BMP and avoid nephrotoxins. 3. Paroxysmal atrial fibrillation with bradycardia: Monitor on telemetry, flecainide and metoprolol continued. INR is subtherapeutic on presentation, warfarin adjusted, trend INR 4. Chronic heart failure with preserved ejection fraction with echo 11/01/2021 showing estimated ejection fraction 55% with no diastolic dysfunction. Hold Lasix in setting of CHRISTOPHER 5. Diabetes mellitus: Blood glucose stable, hold metformin, initiate Accu-Cheks with coverage. 6. DVT prophylaxis. Hospital discharge summary: Facility: [facility] Date of admission: 10/31/2021 Date of discharge: Preadmission details: 10/31/2021 patient presented with [facility] emergency department with complaint of shortness of breath, chills, weakness, gradual onset, moderate severity. No measured fever. Patient has history of lung cancer finishing radiation 3 months ago, not currently on chemotherapy. Vital signs 97.8-88-16-130/88-97% room air. Described as well-developed, no acute distress. CBC: WNL, CMP WNL except BUN 21-CRE 1.33-GFR 56, glucose 132, calcium 8.3, albumin 3.0, globulin 4.6. Lactic acid normal 1.9. BNP normal 57.5. Urine within normal limits except 5-10 RBCs, 0-5 WBCs, rare bacteria. Chest x-ray demonstrated mild cardiomegaly with borderline heart failure, no active cardiopulmonary disease otherwise, mild hyperinflation, benign calcification in the right hilar and right infrahilar lesions, mild demineralization. EKG demonstrated normal sinus rhythm, no acute ST or T wave changes, first-degree AV block. Patient did desaturate to 89% while sitting in bed, placed on nasal cannula 2 L, with movement patient sat dropped again to 87%. Patient discussed with hospitalist and recommendation for observation. Hospital course: Patient admitted to PCU. Assessment and plan: 1. Acute on chronic HFpEF/diastolic heart failure exacerbation factor unclear. Possibly related nonadherence to fluid restrictions. And fluid restriction 1500 cc, daily weights, monitor renal and electrolyte function, troponin and 2D echo ordered. Duplex of lower extremity ordered due to edema right greater than left to rule out DVT. 2. 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 Umu Venegas. No overt evidence of pneumonia or COPD. Blood cultures x2 ordered. Bronchodilator every 6 hours, incentive spirometry and PEP for hygiene. Mention is made of non-small cell lung cancer diagnosed via bronchoscopic wash [facility]. 3. Paroxysmal atrial fibrillation status post ablation, oropharyngeal 3. Continue warfarin, metoprolol and flecainide. 4. Diabetes mellitus type 2 blood sugars, Humalog sliding scale, hold Metformin Dyslipidemia fasting profile in a.m.Atorvastatin 6. Ulcerative colitis on mesalamine 7. Chronic kidney disease stage III AAA, monitor electrolytes, started diuretic IV furosemide 8. Other multiple comorbidities including morbid obesity, cardiac smoker of 30 pack years. 9. DVT prophylaxis: Continue warfarin. 10. Opted for full code. 11/01/2021 ultrasound bilateral lower extremity showed no DVT 11/01/2021: Echocardiogram with contrast: LV size and LV SF WNL, ejection fraction 65%, no diastolic dysfunction, no regional wall motion abnormalities. RV normal size and RV SF. Left and right atrium normal size, no ASD. Mild focal mitral valve calcification anterior leaflet, mild HI. TV: No stenosis, unable to estimate RSVP. AV: Mild diffuse aortic valve thickening, no stenosis. Pulmonic valve WNL. Normal aortic root, no pericardial effusion. Additional labs: 11/02/2021 WBC 10.3-Hgb 13.4-HCT 40.8-PLT 169. 11/03/2021 sodium 136-CL 103-K4.1-CO2 25.0-BUN 37-CRE 1.43-glucose 269-EGFR 51. 11/01/2021 blood culture x2 no growth left and right hand. Sputum culture expectorated x2: Mixed baljinder, no Streptococcus or Staphylococcus isolated. Urine culture no growth, Legionella and Streptococcus pneumonia antigens negative. SARS Covid and flu test negative. Patient diagnosis was transition from congestive heart failure COPD based on findings. Antibiotics do not seem to be warranted. He improved over 48 hours with initiation of steroids and was weaned from 4 L to 0 over that timeframe. Patient saturations remained above 90% did not qualify for home oxygen. Pulmonology was consulted, recommend initiation of Anoro Ellipta as well as prednisone taper on discharge. Was found to have right-sided candidiasis in the axilla, initiate nystatin powder with good improvement. Discharged in stable condition. Patient is to follow-up with Dr. Gillespie regards to lung cancer in February and follow-up with me in 2 weeks. Discharge diagnoses: As above. Medication reconciliation: New medications: Nystatin 1000 units/g powder 1 application twice daily 15/0 Anoro Ellipta 62.5-25 MCG per actuation blister device: 1 inhalation every 24 hours, 60/0 Prednisone 10 mg daily #30/0 Other medications were continued without change. Follow-up scheduled 01/11/[address] Vikram Easton pulmonology Appointments to be scheduled with Dr. Amezcua Appointment with me for 03/26/2022 Personal history of colonic polyps 03/01/2021 03/01/2021 Chronic diastolic CHF (congestive heart failure) 04/01/2019 02/13/2022 Chronic ulcerative enterocolitis 12/10/2015 12/10/2015 Chronic anticoagulation 06/19/2015 02/23/20 16 Hemorrhage of gastrointestinal tract, unspecifie d 12/31/2014 12/31/2014 Atrial flutter by electrocardiogram 12/15/2014 02/23/2016 Acute gastritis without mention of hemorrhage 02/23/2016 Blood in stool 03/02/2009 02/23/2016 Diverticulitis of colon (without mention of hemo rrhage) 04/24/2006 02/23/2016 Unspecified constipation 04/05/2006 016 documented as of this encounter (statuses as of 11/22/2022) [facility]08-09-2022 History of Past illness Narrative* Problem Noted Date Resolved Date Combined form of age-related cataract, both eyes 03/15/2022 03/15/2022 Encounter for support and coordination of transi tion of care 11/05/2021 08/17/2022 Overview: Hospital discharge summary Facility: [facility] Date of admission: 05/02/2022 Date of discharge: Preadmission details: 04/24/2022 presented [facility] with complaint of dyspnea on exertion negative for orthopnea moderate in severity with exertional cough. Vital signs: 100.6-61-15-127/55-90% RA identified on exam is no acute distress with normal respiratory effort, otherwise fairly normal. CBC: WBC 7.0-Hgb 12.7-HCT 39.8-PLT 141 with neutrophil percent 75.7, lymphs percent 12.4 low. Chemistries within normal limits except BUN 15-CRE 1.51 with EGFR 48- GLU 143-calcium 8.2-total bilirubin 9.50-albumin 3.1-albumin globulin ratio 0.8. Lactic acid normal at 1.4. BNP 106.1 slightly elevated. UA demonstrated 1+ bilirubin, 4+ urobilinogen, 5-10 RBCs, 10-25 WBCs, 2+ bacteria, coarse granular casts 5-10. Chest x-ray no acute findings. EKG normal sinus rhythm with no injury pattern. Patient was discharged on dexamethasone 6 mg daily #6/0, doxycycline 100 mg p.o. twice daily #20/0, and multiple are 200 mg 800 mg every 12 hours x5 days 05/02/2022 presented [facility] with significant history of tremors, COPD, sleep apnea, CPAP, atrial fibrillation on flecainide, warfare and therapy with 2-week history of progressive weakness. Productive cough thick yellow sputum. Wheezes. Tested positive for COVID 19 9017 2021, with O2 saturation of 88% requiring supplemental oxygen. also tested positive for COVID and reportedly passed out while he was in the emergency department. Physical exam: Vital signs 96.7X-22-06-126/41-95% RA. Identified as well- developed and nourished, bradycardia, otherwise within normal limits. Labwork: CBC and chemistry profiles were unremarkable except for BUN of 36-CR of 1.89-GLU 165-bilirubin 1.10-AST 48-CA 8.3-albumin 2.5 with albumin/globulin ratio 0.6-BNP 207.5. Chest x-ray demonstrated diffuse interstitial coarsening consistent with COPD, nonspecific hazy opacification left lower lung which could represent collapsed airspace Admitted to Dr. Brandon Michel PCU Admission assessment and plan: 1. COVID-19 pneumonia with hypoxia: Started on Decadron in emergency which will be continued, Imodium as needed for diarrhea, Mucinex, or to as needed. Started on azithromycin and ceftriaxone in the emergency department, patient has listed allergy to azithromycin with diarrhea stopped azithromycin. Switch to Levaquin dosed per creatinine clearance. Strep pneumonia and lesion Urine antigens ordered. 2. CHRISTOPHER on CKD stage III 80 likely from diabetic neuropathy and hypertensive nephrosclerosis, baseline creatinine 1.35. Given saline bolus. Trend BMP and avoid nephrotoxins. 3. Paroxysmal atrial fibrillation with bradycardia: Monitor on telemetry, flecainide and metoprolol continued. INR is subtherapeutic on presentation, warfarin adjusted, trend INR 4. Chronic heart failure with preserved ejection fraction with echo 11/01/2021 showing estimated ejection fraction 55% with no diastolic dysfunction. Hold Lasix in setting of CHRISTOPHER 5. Diabetes mellitus: Blood glucose stable, hold metformin, initiate Accu-Cheks with coverage. 6. DVT prophylaxis. Hospital discharge summary: Facility: [facility] Date of admission: 10/31/2021 Date of discharge: Preadmission details: 10/31/2021 patient presented with [facility] emergency department with complaint of shortness of breath, chills, weakness, gradual onset, moderate severity. No measured fever. Patient has history of lung cancer finishing radiation 3 months ago, not currently on chemotherapy. Vital signs 97.8-88-16-130/88-97% room air. Described as well-developed, no acute distress. CBC: WNL, CMP WNL except BUN 21-CRE 1.33-GFR 56, glucose 132, calcium 8.3, albumin 3.0, globulin 4.6. Lactic acid normal 1.9. BNP normal 57.5. Urine within normal limits except 5-10 RBCs, 0-5 WBCs, rare bacteria. Chest x-ray demonstrated mild cardiomegaly with borderline heart failure, no active cardiopulmonary disease otherwise, mild hyperinflation, benign calcification in the right hilar and right infrahilar lesions, mild demineralization. EKG demonstrated normal sinus rhythm, no acute ST or T wave changes, first-degree AV block. Patient did desaturate to 89% while sitting in bed, placed on nasal cannula 2 L, with movement patient sat dropped again to 87%. Patient discussed with hospitalist and recommendation for observation. Hospital course: Patient admitted to PCU. Assessment and plan: 1. Acute on chronic HFpEF/diastolic heart failure exacerbation factor unclear. Possibly related nonadherence to fluid restrictions. And fluid restriction 1500 cc, daily weights, monitor renal and electrolyte function, troponin and 2D echo ordered. Duplex of lower extremity ordered due to edema right greater than left to rule out DVT. 2. 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 Umu Venegas. No overt evidence of pneumonia or COPD. Blood cultures x2 ordered. Bronchodilator every 6 hours, incentive spirometry and PEP for hygiene. Mention is made of non-small cell lung cancer diagnosed via bronchoscopic wash [facility]. 3. Paroxysmal atrial fibrillation status post ablation, oropharyngeal 3. Continue warfarin, metoprolol and flecainide. 4. Diabetes mellitus type 2 blood sugars, Humalog sliding scale, hold Metformin Dyslipidemia fasting profile in a.m.Atorvastatin 6. Ulcerative colitis on mesalamine 7. Chronic kidney disease stage III AAA, monitor electrolytes, started diuretic IV furosemide 8. Other multiple comorbidities including morbid obesity, cardiac smoker of 30 pack years. 9. DVT prophylaxis: Continue warfarin. 10. Opted for full code. 11/01/2021 ultrasound bilateral lower extremity showed no DVT 11/01/2021: Echocardiogram with contrast: LV size and LV SF WNL, ejection fraction 65%, no diastolic dysfunction, no regional wall motion abnormalities. RV normal size and RV SF. Left and right atrium normal size, no ASD. Mild focal mitral valve calcification anterior leaflet, mild HI. TV: No stenosis, unable to estimate RSVP. AV: Mild diffuse aortic valve thickening, no stenosis. Pulmonic valve WNL. Normal aortic root, no pericardial effusion. Additional labs: 11/02/2021 WBC 10.3-Hgb 13.4-HCT 40.8-PLT 169. 11/03/2021 sodium 136-CL 103-K4.1-CO2 25.0-BUN 37-CRE 1.43-glucose 269-EGFR 51. 11/01/2021 blood culture x2 no growth left and right hand. Sputum culture expectorated x2: Mixed baljinder, no Streptococcus or Staphylococcus isolated. Urine culture no growth, Legionella and Streptococcus pneumonia antigens negative. SARS Covid and flu test negative. Patient diagnosis was transition from congestive heart failure COPD based on findings. Antibiotics do not seem to be warranted. He improved over 48 hours with initiation of steroids and was weaned from 4 L to 0 over that timeframe. Patient saturations remained above 90% did not qualify for home oxygen. Pulmonology was consulted, recommend initiation of Anoro Ellipta as well as prednisone taper on discharge. Was found to have right-sided candidiasis in the axilla, initiate nystatin powder with good improvement. Discharged in stable condition. Patient is to follow-up with Dr. Gillespie regards to lung cancer in February and follow-up with me in 2 weeks. Discharge diagnoses: As above. Medication reconciliation: New medications: Nystatin 1000 units/g powder 1 application twice daily 15/0 Anoro Ellipta 62.5-25 MCG per actuation blister device: 1 inhalation every 24 hours, 60/0 Prednisone 10 mg daily #30/0 Other medications were continued without change. Follow-up scheduled 01/11/[address] Vikram Easton pulmonology Appointments to be scheduled with Dr. Amezcua Appointment with me for 03/26/2022 Personal history of colonic polyps 03/01/2021 03/01/2021 Chronic diastolic CHF (congestive heart failure) 04/01/2019 02/13/2022 Chronic ulcerative enterocolitis 12/10/2015 12/10/2015 Chronic anticoagulation 06/19/2015 02/23/20 16 Hemorrhage of gastrointestinal tract, unspecifie d 12/31/2014 12/31/2014 Atrial flutter by electrocardiogram 12/15/2014 02/23/2016 Acute gastritis without mention of hemorrhage 02/23/2016 Blood in stool 03/02/2009 02/23/2016 Diverticulitis of colon (without mention of hemo rrhage) 04/24/2006 02/23/2016 Unspecified constipation 04/05/2006 016 documented as of this encounter (statuses as of 11/30/2022) [facility]08-09-2022 History of Past illness Narrative* Problem Noted Date Resolved Date Combined form of age-related cataract, both eyes 03/15/2022 03/15/2022 Encounter for support and coordination of transi tion of care 11/05/2021 08/17/2022 Overview: Hospital discharge summary Facility: [facility] Date of admission: 05/02/2022 Date of discharge: Preadmission details: 04/24/2022 presented [facility] with complaint of dyspnea on exertion negative for orthopnea moderate in severity with exertional cough. Vital signs: 100.6-61-15-127/55-90% RA identified on exam is no acute distress with normal respiratory effort, otherwise fairly normal. CBC: WBC 7.0-Hgb 12.7-HCT 39.8-PLT 141 with neutrophil percent 75.7, lymphs percent 12.4 low. Chemistries within normal limits except BUN 15-CRE 1.51 with EGFR 48- GLU 143-calcium 8.2-total bilirubin 9.50-albumin 3.1-albumin globulin ratio 0.8. Lactic acid normal at 1.4. BNP 106.1 slightly elevated. UA demonstrated 1+ bilirubin, 4+ urobilinogen, 5-10 RBCs, 10-25 WBCs, 2+ bacteria, coarse granular casts 5-10. Chest x-ray no acute findings. EKG normal sinus rhythm with no injury pattern. Patient was discharged on dexamethasone 6 mg daily #6/0, doxycycline 100 mg p.o. twice daily #20/0, and multiple are 200 mg 800 mg every 12 hours x5 days 05/02/2022 presented [facility] with significant history of tremors, COPD, sleep apnea, CPAP, atrial fibrillation on flecainide, warfare and therapy with 2-week history of progressive weakness. Productive cough thick yellow sputum. Wheezes. Tested positive for COVID 19 9017 2021, with O2 saturation of 88% requiring supplemental oxygen. also tested positive for COVID and reportedly passed out while he was in the emergency department. Physical exam: Vital signs 96.2X-30-17-126/41-95% RA. Identified as well- developed and nourished, bradycardia, otherwise within normal limits. Labwork: CBC and chemistry profiles were unremarkable except for BUN of 36-CR of 1.89-GLU 165-bilirubin 1.10-AST 48-CA 8.3-albumin 2.5 with albumin/globulin ratio 0.6-BNP 207.5. Chest x-ray demonstrated diffuse interstitial coarsening consistent with COPD, nonspecific hazy opacification left lower lung which could represent collapsed airspace Admitted to Dr. Brandon Michel PCU Admission assessment and plan: 1. COVID-19 pneumonia with hypoxia: Started on Decadron in emergency which will be continued, Imodium as needed for diarrhea, Mucinex, or to as needed. Started on azithromycin and ceftriaxone in the emergency department, patient has listed allergy to azithromycin with diarrhea stopped azithromycin. Switch to Levaquin dosed per creatinine clearance. Strep pneumonia and lesion Urine antigens ordered. 2. CHRISTOPHER on CKD stage III 80 likely from diabetic neuropathy and hypertensive nephrosclerosis, baseline creatinine 1.35. Given saline bolus. Trend BMP and avoid nephrotoxins. 3. Paroxysmal atrial fibrillation with bradycardia: Monitor on telemetry, flecainide and metoprolol continued. INR is subtherapeutic on presentation, warfarin adjusted, trend INR 4. Chronic heart failure with preserved ejection fraction with echo 11/01/2021 showing estimated ejection fraction 55% with no diastolic dysfunction. Hold Lasix in setting of CHRISTOPHER 5. Diabetes mellitus: Blood glucose stable, hold metformin, initiate Accu-Cheks with coverage. 6. DVT prophylaxis. Hospital discharge summary: Facility: [facility] Date of admission: 10/31/2021 Date of discharge: Preadmission details: 10/31/2021 patient presented with [facility] emergency department with complaint of shortness of breath, chills, weakness, gradual onset, moderate severity. No measured fever. Patient has history of lung cancer finishing radiation 3 months ago, not currently on chemotherapy. Vital signs 97.8-88-16-130/88-97% room air. Described as well-developed, no acute distress. CBC: WNL, CMP WNL except BUN 21-CRE 1.33-GFR 56, glucose 132, calcium 8.3, albumin 3.0, globulin 4.6. Lactic acid normal 1.9. BNP normal 57.5. Urine within normal limits except 5-10 RBCs, 0-5 WBCs, rare bacteria. Chest x-ray demonstrated mild cardiomegaly with borderline heart failure, no active cardiopulmonary disease otherwise, mild hyperinflation, benign calcification in the right hilar and right infrahilar lesions, mild demineralization. EKG demonstrated normal sinus rhythm, no acute ST or T wave changes, first-degree AV block. Patient did desaturate to 89% while sitting in bed, placed on nasal cannula 2 L, with movement patient sat dropped again to 87%. Patient discussed with hospitalist and recommendation for observation. Hospital course: Patient admitted to PCU. Assessment and plan: 1. Acute on chronic HFpEF/diastolic heart failure exacerbation factor unclear. Possibly related nonadherence to fluid restrictions. And fluid restriction 1500 cc, daily weights, monitor renal and electrolyte function, troponin and 2D echo ordered. Duplex of lower extremity ordered due to edema right greater than left to rule out DVT. 2. 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 Umu Ziegler No overt evidence of pneumonia or COPD. Blood cultures x2 ordered. Bronchodilator every 6 hours, incentive spirometry and PEP for hygiene. Mention is made of non-small cell lung cancer diagnosed via bronchoscopic wash [facility]. 3. Paroxysmal atrial fibrillation status post ablation, oropharyngeal 3. Continue warfarin, metoprolol and flecainide. 4. Diabetes mellitus type 2 blood sugars, Humalog sliding scale, hold Metformin Dyslipidemia fasting profile in a.m.Atorvastatin 6. Ulcerative colitis on mesalamine 7. Chronic kidney disease stage III AAA, monitor electrolytes, started diuretic IV furosemide 8. Other multiple comorbidities including morbid obesity, cardiac smoker of 30 pack years. 9. DVT prophylaxis: Continue warfarin. 10. Opted for full code. 11/01/2021 ultrasound bilateral lower extremity showed no DVT 11/01/2021: Echocardiogram with contrast: LV size and LV SF WNL, ejection fraction 65%, no diastolic dysfunction, no regional wall motion abnormalities. RV normal size and RV SF. Left and right atrium normal size, no ASD. Mild focal mitral valve calcification anterior leaflet, mild HI. TV: No stenosis, unable to estimate RSVP. AV: Mild diffuse aortic valve thickening, no stenosis. Pulmonic valve WNL. Normal aortic root, no pericardial effusion. Additional labs: 11/02/2021 WBC 10.3-Hgb 13.4-HCT 40.8-PLT 169. 11/03/2021 sodium 136-CL 103-K4.1-CO2 25.0-BUN 37-CRE 1.43-glucose 269-EGFR 51. 11/01/2021 blood culture x2 no growth left and right hand. Sputum culture expectorated x2: Mixed baljinder, no Streptococcus or Staphylococcus isolated. Urine culture no growth, Legionella and Streptococcus pneumonia antigens negative. SARS Covid and flu test negative. Patient diagnosis was transition from congestive heart failure COPD based on findings. Antibiotics do not seem to be warranted. He improved over 48 hours with initiation of steroids and was weaned from 4 L to 0 over that timeframe. Patient saturations remained above 90% did not qualify for home oxygen. Pulmonology was consulted, recommend initiation of Anoro Ellipta as well as prednisone taper on discharge. Was found to have right-sided candidiasis in the axilla, initiate nystatin powder with good improvement. Discharged in stable condition. Patient is to follow-up with Dr. Gillespie regards to lung cancer in February and follow-up with me in 2 weeks. Discharge diagnoses: As above. Medication reconciliation: New medications: Nystatin 1000 units/g powder 1 application twice daily 15/0 Anoro Ellipta 62.5-25 MCG per actuation blister device: 1 inhalation every 24 hours, 60/0 Prednisone 10 mg daily #30/0 Other medications were continued without change. Follow-up scheduled 01/11/[address] Vikram Easton pulmonology Appointments to be scheduled with Dr. Amezcua Appointment with me for 03/26/2022 Personal history of colonic polyps 03/01/2021 03/01/2021 Chronic diastolic CHF (congestive heart failure) 04/01/2019 02/13/2022 Chronic ulcerative enterocolitis 12/10/2015 12/10/2015 Chronic anticoagulation 06/19/2015 02/23/20 16 Hemorrhage of gastrointestinal tract, unspecifie d 12/31/2014 12/31/2014 Atrial flutter by electrocardiogram 12/15/2014 02/23/2016 Acute gastritis without mention of hemorrhage 02/23/2016 Blood in stool 03/02/2009 02/23/2016 Diverticulitis of colon (without mention of hemo rrhage) 04/24/2006 02/23/2016 Unspecified constipation 04/05/2006 016 documented as of this encounter (statuses as of 12/01/2022) [facility]08-09-2022 History of Past illness Narrative* Problem Noted Date Resolved Date Combined form of age-related cataract, both eyes 03/15/2022 03/15/2022 Encounter for support and coordination of transi tion of care 11/05/2021 08/17/2022 Overview: Hospital discharge summary Facility: [facility] Date of admission: 05/02/2022 Date of discharge: Preadmission details: 04/24/2022 presented [facility] with complaint of dyspnea on exertion negative for orthopnea moderate in severity with exertional cough. Vital signs: 100.6-61-15-127/55-90% RA identified on exam is no acute distress with normal respiratory effort, otherwise fairly normal. CBC: WBC 7.0-Hgb 12.7-HCT 39.8-PLT 141 with neutrophil percent 75.7, lymphs percent 12.4 low. Chemistries within normal limits except BUN 15-CRE 1.51 with EGFR 48- GLU 143-calcium 8.2-total bilirubin 9.50-albumin 3.1-albumin globulin ratio 0.8. Lactic acid normal at 1.4. BNP 106.1 slightly elevated. UA demonstrated 1+ bilirubin, 4+ urobilinogen, 5-10 RBCs, 10-25 WBCs, 2+ bacteria, coarse granular casts 5-10. Chest x-ray no acute findings. EKG normal sinus rhythm with no injury pattern. Patient was discharged on dexamethasone 6 mg daily #6/0, doxycycline 100 mg p.o. twice daily #20/0, and multiple are 200 mg 800 mg every 12 hours x5 days 05/02/2022 presented [facility] with significant history of tremors, COPD, sleep apnea, CPAP, atrial fibrillation on flecainide, warfare and therapy with 2-week history of progressive weakness. Productive cough thick yellow sputum. Wheezes. Tested positive for COVID 19 9017 2021, with O2 saturation of 88% requiring supplemental oxygen. also tested positive for COVID and reportedly passed out while he was in the emergency department. Physical exam: Vital signs 96.9L-98-78-126/41-95% RA. Identified as well- developed and nourished, bradycardia, otherwise within normal limits. Labwork: CBC and chemistry profiles were unremarkable except for BUN of 36-CR of 1.89-GLU 165-bilirubin 1.10-AST 48-CA 8.3-albumin 2.5 with albumin/globulin ratio 0.6-BNP 207.5. Chest x-ray demonstrated diffuse interstitial coarsening consistent with COPD, nonspecific hazy opacification left lower lung which could represent collapsed airspace Admitted to Dr. Brandon Michel PCU Admission assessment and plan: 1. COVID-19 pneumonia with hypoxia: Started on Decadron in emergency which will be continued, Imodium as needed for diarrhea, Mucinex, or to as needed. Started on azithromycin and ceftriaxone in the emergency department, patient has listed allergy to azithromycin with diarrhea stopped azithromycin. Switch to Levaquin dosed per creatinine clearance. Strep pneumonia and lesion Urine antigens ordered. 2. CHRISTOPHER on CKD stage III 80 likely from diabetic neuropathy and hypertensive nephrosclerosis, baseline creatinine 1.35. Given saline bolus. Trend BMP and avoid nephrotoxins. 3. Paroxysmal atrial fibrillation with bradycardia: Monitor on telemetry, flecainide and metoprolol continued. INR is subtherapeutic on presentation, warfarin adjusted, trend INR 4. Chronic heart failure with preserved ejection fraction with echo 11/01/2021 showing estimated ejection fraction 55% with no diastolic dysfunction. Hold Lasix in setting of CHRISTOPHER 5. Diabetes mellitus: Blood glucose stable, hold metformin, initiate Accu-Cheks with coverage. 6. DVT prophylaxis. Hospital discharge summary: Facility: [facility] Date of admission: 10/31/2021 Date of discharge: Preadmission details: 10/31/2021 patient presented with [facility] emergency department with complaint of shortness of breath, chills, weakness, gradual onset, moderate severity. No measured fever. Patient has history of lung cancer finishing radiation 3 months ago, not currently on chemotherapy. Vital signs 97.8-88-16-130/88-97% room air. Described as well-developed, no acute distress. CBC: WNL, CMP WNL except BUN 21-CRE 1.33-GFR 56, glucose 132, calcium 8.3, albumin 3.0, globulin 4.6. Lactic acid normal 1.9. BNP normal 57.5. Urine within normal limits except 5-10 RBCs, 0-5 WBCs, rare bacteria. Chest x-ray demonstrated mild cardiomegaly with borderline heart failure, no active cardiopulmonary disease otherwise, mild hyperinflation, benign calcification in the right hilar and right infrahilar lesions, mild demineralization. EKG demonstrated normal sinus rhythm, no acute ST or T wave changes, first-degree AV block. Patient did desaturate to 89% while sitting in bed, placed on nasal cannula 2 L, with movement patient sat dropped again to 87%. Patient discussed with hospitalist and recommendation for observation. Hospital course: Patient admitted to PCU. Assessment and plan: 1. Acute on chronic HFpEF/diastolic heart failure exacerbation factor unclear. Possibly related nonadherence to fluid restrictions. And fluid restriction 1500 cc, daily weights, monitor renal and electrolyte function, troponin and 2D echo ordered. Duplex of lower extremity ordered due to edema right greater than left to rule out DVT. 2. 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 Umu Flanagan P. No overt evidence of pneumonia or COPD. Blood cultures x2 ordered. Bronchodilator every 6 hours, incentive spirometry and PEP for hygiene. Mention is made of non-small cell lung cancer diagnosed via bronchoscopic wash [facility]. 3. Paroxysmal atrial fibrillation status post ablation, oropharyngeal 3. Continue warfarin, metoprolol and flecainide. 4. Diabetes mellitus type 2 blood sugars, Humalog sliding scale, hold Metformin Dyslipidemia fasting profile in a.m.Atorvastatin 6. Ulcerative colitis on mesalamine 7. Chronic kidney disease stage III AAA, monitor electrolytes, started diuretic IV furosemide 8. Other multiple comorbidities including morbid obesity, cardiac smoker of 30 pack years. 9. DVT prophylaxis: Continue warfarin. 10. Opted for full code. 11/01/2021 ultrasound bilateral lower extremity showed no DVT 11/01/2021: Echocardiogram with contrast: LV size and LV SF WNL, ejection fraction 65%, no diastolic dysfunction, no regional wall motion abnormalities. RV normal size and RV SF. Left and right atrium normal size, no ASD. Mild focal mitral valve calcification anterior leaflet, mild HI. TV: No stenosis, unable to estimate RSVP. AV: Mild diffuse aortic valve thickening, no stenosis. Pulmonic valve WNL. Normal aortic root, no pericardial effusion. Additional labs: 11/02/2021 WBC 10.3-Hgb 13.4-HCT 40.8-PLT 169. 11/03/2021 sodium 136-CL 103-K4.1-CO2 25.0-BUN 37-CRE 1.43-glucose 269-EGFR 51. 11/01/2021 blood culture x2 no growth left and right hand. Sputum culture expectorated x2: Mixed baljinder, no Streptococcus or Staphylococcus isolated. Urine culture no growth, Legionella and Streptococcus pneumonia antigens negative. SARS Covid and flu test negative. Patient diagnosis was transition from congestive heart failure COPD based on findings. Antibiotics do not seem to be warranted. He improved over 48 hours with initiation of steroids and was weaned from 4 L to 0 over that timeframe. Patient saturations remained above 90% did not qualify for home oxygen. Pulmonology was consulted, recommend initiation of Anoro Ellipta as well as prednisone taper on discharge. Was found to have right-sided candidiasis in the axilla, initiate nystatin powder with good improvement. Discharged in stable condition. Patient is to follow-up with Dr. Gillespie regards to lung cancer in February and follow-up with me in 2 weeks. Discharge diagnoses: As above. Medication reconciliation: New medications: Nystatin 1000 units/g powder 1 application twice daily 15/0 Anoro Ellipta 62.5-25 MCG per actuation blister device: 1 inhalation every 24 hours, 60/0 Prednisone 10 mg daily #30/0 Other medications were continued without change. Follow-up scheduled 01/11/[address] Vikram Easton pulmonology Appointments to be scheduled with Dr. Amezcua Appointment with me for 03/26/2022 Personal history of colonic polyps 03/01/2021 03/01/2021 Chronic diastolic CHF (congestive heart failure) 04/01/2019 02/13/2022 Chronic ulcerative enterocolitis 12/10/2015 12/10/2015 Chronic anticoagulation 06/19/2015 02/23/20 16 Hemorrhage of gastrointestinal tract, unspecifie d 12/31/2014 12/31/2014 Atrial flutter by electrocardiogram 12/15/2014 02/23/2016 Acute gastritis without mention of hemorrhage 02/23/2016 Blood in stool 03/02/2009 02/23/2016 Diverticulitis of colon (without mention of hemo rrhage) 04/24/2006 02/23/2016 Unspecified constipation 04/05/2006 016 documented as of this encounter (statuses as of 01/23/2023) [facility]08-09-2022 History of Past illness Narrative* Problem Noted Date Resolved Date Combined form of age-related cataract, both eyes 03/15/2022 03/15/2022 Encounter for support and coordination of transi tion of care 11/05/2021 08/17/2022 Overview: Hospital discharge summary Facility: [facility] Date of admission: 05/02/2022 Date of discharge: Preadmission details: 04/24/2022 presented [facility] with complaint of dyspnea on exertion negative for orthopnea moderate in severity with exertional cough. Vital signs: 100.6-61-15-127/55-90% RA identified on exam is no acute distress with normal respiratory effort, otherwise fairly normal. CBC: WBC 7.0-Hgb 12.7-HCT 39.8-PLT 141 with neutrophil percent 75.7, lymphs percent 12.4 low. Chemistries within normal limits except BUN 15-CRE 1.51 with EGFR 48- GLU 143-calcium 8.2-total bilirubin 9.50-albumin 3.1-albumin globulin ratio 0.8. Lactic acid normal at 1.4. BNP 106.1 slightly elevated. UA demonstrated 1+ bilirubin, 4+ urobilinogen, 5-10 RBCs, 10-25 WBCs, 2+ bacteria, coarse granular casts 5-10. Chest x-ray no acute findings. EKG normal sinus rhythm with no injury pattern. Patient was discharged on dexamethasone 6 mg daily #6/0, doxycycline 100 mg p.o. twice daily #20/0, and multiple are 200 mg 800 mg every 12 hours x5 days 05/02/2022 presented [facility] with significant history of tremors, COPD, sleep apnea, CPAP, atrial fibrillation on flecainide, warfare and therapy with 2-week history of progressive weakness. Productive cough thick yellow sputum. Wheezes. Tested positive for COVID 19 9017 2021, with O2 saturation of 88% requiring supplemental oxygen. also tested positive for COVID and reportedly passed out while he was in the emergency department. Physical exam: Vital signs 96.9H-32-26-126/41-95% RA. Identified as well- developed and nourished, bradycardia, otherwise within normal limits. Labwork: CBC and chemistry profiles were unremarkable except for BUN of 36-CR of 1.89-GLU 165-bilirubin 1.10-AST 48-CA 8.3-albumin 2.5 with albumin/globulin ratio 0.6-BNP 207.5. Chest x-ray demonstrated diffuse interstitial coarsening consistent with COPD, nonspecific hazy opacification left lower lung which could represent collapsed airspace Admitted to Dr. Brandon Michel PCU Admission assessment and plan: 1. COVID-19 pneumonia with hypoxia: Started on Decadron in emergency which will be continued, Imodium as needed for diarrhea, Mucinex, or to as needed. Started on azithromycin and ceftriaxone in the emergency department, patient has listed allergy to azithromycin with diarrhea stopped azithromycin. Switch to Levaquin dosed per creatinine clearance. Strep pneumonia and lesion Urine antigens ordered. 2. CHRISTOPHER on CKD stage III 80 likely from diabetic neuropathy and hypertensive nephrosclerosis, baseline creatinine 1.35. Given saline bolus. Trend BMP and avoid nephrotoxins. 3. Paroxysmal atrial fibrillation with bradycardia: Monitor on telemetry, flecainide and metoprolol continued. INR is subtherapeutic on presentation, warfarin adjusted, trend INR 4. Chronic heart failure with preserved ejection fraction with echo 11/01/2021 showing estimated ejection fraction 55% with no diastolic dysfunction. Hold Lasix in setting of CHRISTOPHER 5. Diabetes mellitus: Blood glucose stable, hold metformin, initiate Accu-Cheks with coverage. 6. DVT prophylaxis. Hospital discharge summary: Facility: [facility] Date of admission: 10/31/2021 Date of discharge: Preadmission details: 10/31/2021 patient presented with [facility] emergency department with complaint of shortness of breath, chills, weakness, gradual onset, moderate severity. No measured fever. Patient has history of lung cancer finishing radiation 3 months ago, not currently on chemotherapy. Vital signs 97.8-88-16-130/88-97% room air. Described as well-developed, no acute distress. CBC: WNL, CMP WNL except BUN 21-CRE 1.33-GFR 56, glucose 132, calcium 8.3, albumin 3.0, globulin 4.6. Lactic acid normal 1.9. BNP normal 57.5. Urine within normal limits except 5-10 RBCs, 0-5 WBCs, rare bacteria. Chest x-ray demonstrated mild cardiomegaly with borderline heart failure, no active cardiopulmonary disease otherwise, mild hyperinflation, benign calcification in the right hilar and right infrahilar lesions, mild demineralization. EKG demonstrated normal sinus rhythm, no acute ST or T wave changes, first-degree AV block. Patient did desaturate to 89% while sitting in bed, placed on nasal cannula 2 L, with movement patient sat dropped again to 87%. Patient discussed with hospitalist and recommendation for observation. Hospital course: Patient admitted to PCU. Assessment and plan: 1. Acute on chronic HFpEF/diastolic heart failure exacerbation factor unclear. Possibly related nonadherence to fluid restrictions. And fluid restriction 1500 cc, daily weights, monitor renal and electrolyte function, troponin and 2D echo ordered. Duplex of lower extremity ordered due to edema right greater than left to rule out DVT. 2. 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 Umu Ziegler No overt evidence of pneumonia or COPD. Blood cultures x2 ordered. Bronchodilator every 6 hours, incentive spirometry and PEP for hygiene. Mention is made of non-small cell lung cancer diagnosed via bronchoscopic wash [facility]. 3. Paroxysmal atrial fibrillation status post ablation, oropharyngeal 3. Continue warfarin, metoprolol and flecainide. 4. Diabetes mellitus type 2 blood sugars, Humalog sliding scale, hold Metformin Dyslipidemia fasting profile in a.m.Atorvastatin 6. Ulcerative colitis on mesalamine 7. Chronic kidney disease stage III AAA, monitor electrolytes, started diuretic IV furosemide 8. Other multiple comorbidities including morbid obesity, cardiac smoker of 30 pack years. 9. DVT prophylaxis: Continue warfarin. 10. Opted for full code. 11/01/2021 ultrasound bilateral lower extremity showed no DVT 11/01/2021: Echocardiogram with contrast: LV size and LV SF WNL, ejection fraction 65%, no diastolic dysfunction, no regional wall motion abnormalities. RV normal size and RV SF. Left and right atrium normal size, no ASD. Mild focal mitral valve calcification anterior leaflet, mild HI. TV: No stenosis, unable to estimate RSVP. AV: Mild diffuse aortic valve thickening, no stenosis. Pulmonic valve WNL. Normal aortic root, no pericardial effusion. Additional labs: 11/02/2021 WBC 10.3-Hgb 13.4-HCT 40.8-PLT 169. 11/03/2021 sodium 136-CL 103-K4.1-CO2 25.0-BUN 37-CRE 1.43-glucose 269-EGFR 51. 11/01/2021 blood culture x2 no growth left and right hand. Sputum culture expectorated x2: Mixed baljinder, no Streptococcus or Staphylococcus isolated. Urine culture no growth, Legionella and Streptococcus pneumonia antigens negative. SARS Covid and flu test negative. Patient diagnosis was transition from congestive heart failure COPD based on findings. Antibiotics do not seem to be warranted. He improved over 48 hours with initiation of steroids and was weaned from 4 L to 0 over that timeframe. Patient saturations remained above 90% did not qualify for home oxygen. Pulmonology was consulted, recommend initiation of Anoro Ellipta as well as prednisone taper on discharge. Was found to have right-sided candidiasis in the axilla, initiate nystatin powder with good improvement. Discharged in stable condition. Patient is to follow-up with Dr. Gillespie regards to lung cancer in February and follow-up with me in 2 weeks. Discharge diagnoses: As above. Medication reconciliation: New medications: Nystatin 1000 units/g powder 1 application twice daily 15/0 Anoro Ellipta 62.5-25 MCG per actuation blister device: 1 inhalation every 24 hours, 60/0 Prednisone 10 mg daily #30/0 Other medications were continued without change. Follow-up scheduled 01/11/[address] Vikram Easton pulmonology Appointments to be scheduled with Dr. Amezcua [facility] Personal history of colonic polyps 03/01/2021 03/01/2021 Chronic diastolic CHF (congestive heart failure) 04/01/2019 02/13/2022 Chronic ulcerative enterocolitis 12/10/2015 12/10/2015 Chronic anticoagulation 06/19/2015 02/23/20 16 Hemorrhage of gastrointestinal tract, unspecifie d 12/31/2014 12/31/2014 Atrial flutter by electrocardiogram 12/15/2014 02/23/2016 Acute gastritis without mention of hemorrhage 02/23/2016 Blood in stool 03/02/2009 02/23/2016 Diverticulitis of colon (without mention of hemo rrhage) 04/24/2006 02/23/2016 Unspecified constipation 04/05/2006 016 documented as of this encounter (statuses as of 02/05/2023) [facility]08-09-2022 History of Past illness Narrative* Problem Noted Date Diagnosed Date Resolved Date Combined form of age-related cataract, both eyes 03/15/2022 03/15/2022 Encounter for support and co ordination of transition of care 11/05/2021 08/17/2022 Overview: Hospital discharge summary Facility: [facility] Date of admission: 05/02/2022 Date of discharge: Preadmission details: 04/24/2022 presented [facility] with complaint of dyspnea on exertion negative for orthopnea moderate in severity with exertional cough. Vital signs: 100.6-61-15-127/55-90% RA identified on exam is no acute distress with normal respiratory effort, otherwise fairly normal. CBC: WBC 7.0-Hgb 12.7-HCT 39.8-PLT 141 with neutrophil percent 75.7, lymphs percent 12.4 low. Chemistries within normal limits except BUN 15-CRE 1.51 with EGFR 48- GLU 143-calcium 8.2-total bilirubin 9.50-albumin 3.1-albumin globulin ratio 0.8. Lactic acid normal at 1.4. BNP 106.1 slightly elevated. UA demonstrated 1+ bilirubin, 4+ urobilinogen, 5-10 RBCs, 10-25 WBCs, 2+ bacteria, coarse granular casts 5-10. Chest x-ray no acute findings. EKG normal sinus rhythm with no injury pattern. Patient was discharged on dexamethasone 6 mg daily #6/0, doxycycline 100 mg p.o. twice daily #20/0, and multiple are 200 mg 800 mg every 12 hours x5 days 05/02/2022 presented [facility] with significant history of tremors, COPD, sleep apnea, CPAP, atrial fibrillation on flecainide, warfare and therapy with 2-week history of progressive weakness. Productive cough thick yellow sputum. Wheezes. Tested positive for COVID 19 9017 2021, with O2 saturation of 88% requiring supplemental oxygen. also tested positive for COVID and reportedly passed out while he was in the emergency department. Physical exam: Vital signs 96.0O-71-10-126/41-95% RA. Identified as well- developed and nourished, bradycardia, otherwise within normal limits. Labwork: CBC and chemistry profiles were unremarkable except for BUN of 36-CR of 1.89-GLU 165-bilirubin 1.10-AST 48-CA 8.3-albumin 2.5 with albumin/globulin ratio 0.6-BNP 207.5. Chest x-ray demonstrated diffuse interstitial coarsening consistent with COPD, nonspecific hazy opacification left lower lung which could represent collapsed airspace Admitted to Dr. Brandon Michel PCU Admission assessment and plan: 1. COVID-19 pneumonia with hypoxia: Started on Decadron in emergency which will be continued, Imodium as needed for diarrhea, Mucinex, or to as needed. Started on azithromycin and ceftriaxone in the emergency department, patient has listed allergy to azithromycin with diarrhea stopped azithromycin. Switch to Levaquin dosed per creatinine clearance. Strep pneumonia and lesion Urine antigens ordered. 2. CHRISTOPHER on CKD stage III 80 likely from diabetic neuropathy and hypertensive nephrosclerosis, baseline creatinine 1.35. Given saline bolus. Trend BMP and avoid nephrotoxins. 3. Paroxysmal atrial fibrillation with bradycardia: Monitor on telemetry, flecainide and metoprolol continued. INR is subtherapeutic on presentation, warfarin adjusted, trend INR 4. Chronic heart failure with preserved ejection fraction with echo 11/01/2021 showing estimated ejection fraction 55% with no diastolic dysfunction. Hold Lasix in setting of CHRISTOPHER 5. Diabetes mellitus: Blood glucose stable, hold metformin, initiate Accu-Cheks with coverage. 6. DVT prophylaxis. Hospital discharge summary: Facility: [facility] Date of admission: 10/31/2021 Date of discharge: Preadmission details: 10/31/2021 patient presented with [facility] emergency department with complaint of shortness of breath, chills, weakness, gradual onset, moderate severity. No measured fever. Patient has history of lung cancer finishing radiation 3 months ago, not currently on chemotherapy. Vital signs 97.8-88-16-130/88-97% room air. Described as well-developed, no acute distress. CBC: WNL, CMP WNL except BUN 21-CRE 1.33-GFR 56, glucose 132, calcium 8.3, albumin 3.0, globulin 4.6. Lactic acid normal 1.9. BNP normal 57.5. Urine within normal limits except 5-10 RBCs, 0-5 WBCs, rare bacteria. Chest x-ray demonstrated mild cardiomegaly with borderline heart failure, no active cardiopulmonary disease otherwise, mild hyperinflation, benign calcification in the right hilar and right infrahilar lesions, mild demineralization. EKG demonstrated normal sinus rhythm, no acute ST or T wave changes, first-degree AV block. Patient did desaturate to 89% while sitting in bed, placed on nasal cannula 2 L, with movement patient sat dropped again to 87%. Patient discussed with hospitalist and recommendation for observation. Hospital course: Patient admitted to PCU. Assessment and plan: 1. Acute on chronic HFpEF/diastolic heart failure exacerbation factor unclear. Possibly related nonadherence to fluid restrictions. And fluid restriction 1500 cc, daily weights, monitor renal and electrolyte function, troponin and 2D echo ordered. Duplex of lower extremity ordered due to edema right greater than left to rule out DVT. 2. 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 Umu Ziegler No overt evidence of pneumonia or COPD. Blood cultures x2 ordered. Bronchodilator every 6 hours, incentive spirometry and PEP for hygiene. Mention is made of non-small cell lung cancer diagnosed via bronchoscopic wash [facility]. 3. Paroxysmal atrial fibrillation status post ablation, oropharyngeal 3. Continue warfarin, metoprolol and flecainide. 4. Diabetes mellitus type 2 blood sugars, Humalog sliding scale, hold Metformin Dyslipidemia fasting profile in a.m.Atorvastatin 6. Ulcerative colitis on mesalamine 7. Chronic kidney disease stage III AAA, monitor electrolytes, started diuretic IV furosemide 8. Other multiple comorbidities including morbid obesity, cardiac smoker of 30 pack years. 9. DVT prophylaxis: Continue warfarin. 10. Opted for full code. 11/01/2021 ultrasound bilateral lower extremity showed no DVT 11/01/2021: Echocardiogram with contrast: LV size and LV SF WNL, ejection fraction 65%, no diastolic dysfunction, no regional wall motion abnormalities. RV normal size and RV SF. Left and right atrium normal size, no ASD. Mild focal mitral valve calcification anterior leaflet, mild HI. TV: No stenosis, unable to estimate RSVP. AV: Mild diffuse aortic valve thickening, no stenosis. Pulmonic valve WNL. Normal aortic root, no pericardial effusion. Additional labs: 11/02/2021 WBC 10.3-Hgb 13.4-HCT 40.8-PLT 169. 11/03/2021 sodium 136-CL 103-K4.1-CO2 25.0-BUN 37-CRE 1.43-glucose 269-EGFR 51. 11/01/2021 blood culture x2 no growth left and right hand. Sputum culture expectorated x2: Mixed baljinder, no Streptococcus or Staphylococcus isolated. Urine culture no growth, Legionella and Streptococcus pneumonia antigens negative. SARS Covid and flu test negative. Patient diagnosis was transition from congestive heart failure COPD based on findings. Antibiotics do not seem to be warranted. He improved over 48 hours with initiation of steroids and was weaned from 4 L to 0 over that timeframe. Patient saturations remained above 90% did not qualify for home oxygen. Pulmonology was consulted, recommend initiation of Anoro Ellipta as well as prednisone taper on discharge. Was found to have right-sided candidiasis in the axilla, initiate nystatin powder with good improvement. Discharged in stable condition. Patient is to follow-up with Dr. Gillespie regards to lung cancer in February and follow-up with me in 2 weeks. Discharge diagnoses: As above. Medication reconciliation: New medications: Nystatin 1000 units/g powder 1 application twice daily 15/0 Anoro Ellipta 62.5-25 MCG per actuation blister device: 1 inhalation every 24 hours, 60/0 Prednisone 10 mg daily #30/0 Other medications were continued without change. Follow-up scheduled 01/11/[address] Vikram Easton pulmonology Appointments to be scheduled with Dr. Amezcua [facility] Personal history of colonic polyps 03/01/2021 03/01/2021 Chronic diastolic CHF (conge stive heart failure) 04/01/2019 02/13/2022 Chronic ulcerative enterocolitis 12/10/2015 12/10/2015 Chronic anticoagulation 06/19/201502/04 Hemorrhage of gastrointestin al tract, unspecified 12/31/2014 12/31/2014 Atrial flutter by electrocardiogram 12/15/2014 02/23/2016 Acute gastritis without mention of hemorrhage 03/06/20 09 02/23/2016 Blood in stool 03/02/2009 02/23/2016 Diverticulitis of colon (lora morrell mention of hemorrhage) 04/24/2006 02/23/2016 Unspecified constipation 04/05/2006 documented as of this encounter (statuses as of 02/15/2023) [facility]08-09-2022 History of Past illness Narrative* Problem Noted Date Diagnosed Date Resolved Date Combined form of age-related cataract, both eyes 03/15/2022 03/15/2022 Encounter for support and co ordination of transition of care 11/05/2021 08/17/2022 Overview: Hospital discharge summary Facility: [facility] Date of admission: 05/02/2022 Date of discharge: Preadmission details: 04/24/2022 presented [facility] with complaint of dyspnea on exertion negative for orthopnea moderate in severity with exertional cough. Vital signs: 100.6-61-15-127/55-90% RA identified on exam is no acute distress with normal respiratory effort, otherwise fairly normal. CBC: WBC 7.0-Hgb 12.7-HCT 39.8-PLT 141 with neutrophil percent 75.7, lymphs percent 12.4 low. Chemistries within normal limits except BUN 15-CRE 1.51 with EGFR 48- GLU 143-calcium 8.2-total bilirubin 9.50-albumin 3.1-albumin globulin ratio 0.8. Lactic acid normal at 1.4. BNP 106.1 slightly elevated. UA demonstrated 1+ bilirubin, 4+ urobilinogen, 5-10 RBCs, 10-25 WBCs, 2+ bacteria, coarse granular casts 5-10. Chest x-ray no acute findings. EKG normal sinus rhythm with no injury pattern. Patient was discharged on dexamethasone 6 mg daily #6/0, doxycycline 100 mg p.o. twice daily #20/0, and multiple are 200 mg 800 mg every 12 hours x5 days 05/02/2022 presented [facility] with significant history of tremors, COPD, sleep apnea, CPAP, atrial fibrillation on flecainide, warfare and therapy with 2-week history of progressive weakness. Productive cough thick yellow sputum. Wheezes. Tested positive for COVID 19 9017 2021, with O2 saturation of 88% requiring supplemental oxygen. also tested positive for COVID and reportedly passed out while he was in the emergency department. Physical exam: Vital signs 96.8M-71-86-126/41-95% RA. Identified as well- developed and nourished, bradycardia, otherwise within normal limits. Labwork: CBC and chemistry profiles were unremarkable except for BUN of 36-CR of 1.89-GLU 165-bilirubin 1.10-AST 48-CA 8.3-albumin 2.5 with albumin/globulin ratio 0.6-BNP 207.5. Chest x-ray demonstrated diffuse interstitial coarsening consistent with COPD, nonspecific hazy opacification left lower lung which could represent collapsed airspace Admitted to Dr. Brandon Michel PCU Admission assessment and plan: 1. COVID-19 pneumonia with hypoxia: Started on Decadron in emergency which will be continued, Imodium as needed for diarrhea, Mucinex, or to as needed. Started on azithromycin and ceftriaxone in the emergency department, patient has listed allergy to azithromycin with diarrhea stopped azithromycin. Switch to Levaquin dosed per creatinine clearance. Strep pneumonia and lesion Urine antigens ordered. 2. CHRISTOPHER on CKD stage III 80 likely from diabetic neuropathy and hypertensive nephrosclerosis, baseline creatinine 1.35. Given saline bolus. Trend BMP and avoid nephrotoxins. 3. Paroxysmal atrial fibrillation with bradycardia: Monitor on telemetry, flecainide and metoprolol continued. INR is subtherapeutic on presentation, warfarin adjusted, trend INR 4. Chronic heart failure with preserved ejection fraction with echo 11/01/2021 showing estimated ejection fraction 55% with no diastolic dysfunction. Hold Lasix in setting of CHRISTOPHER 5. Diabetes mellitus: Blood glucose stable, hold metformin, initiate Accu-Cheks with coverage. 6. DVT prophylaxis. Hospital discharge summary: Facility: [facility] Date of admission: 10/31/2021 Date of discharge: Preadmission details: 10/31/2021 patient presented with [facility] emergency department with complaint of shortness of breath, chills, weakness, gradual onset, moderate severity. No measured fever. Patient has history of lung cancer finishing radiation 3 months ago, not currently on chemotherapy. Vital signs 97.8-88-16-130/88-97% room air. Described as well-developed, no acute distress. CBC: WNL, CMP WNL except BUN 21-CRE 1.33-GFR 56, glucose 132, calcium 8.3, albumin 3.0, globulin 4.6. Lactic acid normal 1.9. BNP normal 57.5. Urine within normal limits except 5-10 RBCs, 0-5 WBCs, rare bacteria. Chest x-ray demonstrated mild cardiomegaly with borderline heart failure, no active cardiopulmonary disease otherwise, mild hyperinflation, benign calcification in the right hilar and right infrahilar lesions, mild demineralization. EKG demonstrated normal sinus rhythm, no acute ST or T wave changes, first-degree AV block. Patient did desaturate to 89% while sitting in bed, placed on nasal cannula 2 L, with movement patient sat dropped again to 87%. Patient discussed with hospitalist and recommendation for observation. Hospital course: Patient admitted to PCU. Assessment and plan: 1. Acute on chronic HFpEF/diastolic heart failure exacerbation factor unclear. Possibly related nonadherence to fluid restrictions. And fluid restriction 1500 cc, daily weights, monitor renal and electrolyte function, troponin and 2D echo ordered. Duplex of lower extremity ordered due to edema right greater than left to rule out DVT. 2. 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 Umu Ziegler No overt evidence of pneumonia or COPD. Blood cultures x2 ordered. Bronchodilator every 6 hours, incentive spirometry and PEP for hygiene. Mention is made of non-small cell lung cancer diagnosed via bronchoscopic wash [facility]. 3. Paroxysmal atrial fibrillation status post ablation, oropharyngeal 3. Continue warfarin, metoprolol and flecainide. 4. Diabetes mellitus type 2 blood sugars, Humalog sliding scale, hold Metformin Dyslipidemia fasting profile in a.m.Atorvastatin 6. Ulcerative colitis on mesalamine 7. Chronic kidney disease stage III AAA, monitor electrolytes, started diuretic IV furosemide 8. Other multiple comorbidities including morbid obesity, cardiac smoker of 30 pack years. 9. DVT prophylaxis: Continue warfarin. 10. Opted for full code. 11/01/2021 ultrasound bilateral lower extremity showed no DVT 11/01/2021: Echocardiogram with contrast: LV size and LV SF WNL, ejection fraction 65%, no diastolic dysfunction, no regional wall motion abnormalities. RV normal size and RV SF. Left and right atrium normal size, no ASD. Mild focal mitral valve calcification anterior leaflet, mild HI. TV: No stenosis, unable to estimate RSVP. AV: Mild diffuse aortic valve thickening, no stenosis. Pulmonic valve WNL. Normal aortic root, no pericardial effusion. Additional labs: 11/02/2021 WBC 10.3-Hgb 13.4-HCT 40.8-PLT 169. 11/03/2021 sodium 136-CL 103-K4.1-CO2 25.0-BUN 37-CRE 1.43-glucose 269-EGFR 51. 11/01/2021 blood culture x2 no growth left and right hand. Sputum culture expectorated x2: Mixed baljinder, no Streptococcus or Staphylococcus isolated. Urine culture no growth, Legionella and Streptococcus pneumonia antigens negative. SARS Covid and flu test negative. Patient diagnosis was transition from congestive heart failure COPD based on findings. Antibiotics do not seem to be warranted. He improved over 48 hours with initiation of steroids and was weaned from 4 L to 0 over that timeframe. Patient saturations remained above 90% did not qualify for home oxygen. Pulmonology was consulted, recommend initiation of Anoro Ellipta as well as prednisone taper on discharge. Was found to have right-sided candidiasis in the axilla, initiate nystatin powder with good improvement. Discharged in stable condition. Patient is to follow-up with Dr. Gillespie regards to lung cancer in February and follow-up with me in 2 weeks. Discharge diagnoses: As above. Medication reconciliation: New medications: Nystatin 1000 units/g powder 1 application twice daily 15/0 Anoro Ellipta 62.5-25 MCG per actuation blister device: 1 inhalation every 24 hours, 60/0 Prednisone 10 mg daily #30/0 Other medications were continued without change. Follow-up scheduled 01/11/[address] Vikram Easton pulmonology Appointments to be scheduled with Dr. Amezcua [facility] Personal history of colonic polyps 03/01/2021 03/01/2021 Chronic diastolic CHF (conge stive heart failure) 04/01/2019 02/13/2022 Chronic ulcerative enterocolitis 12/10/2015 12/10/2015 Chronic anticoagulation 06/19/201502/04 Hemorrhage of gastrointestin al tract, unspecified 12/31/2014 12/31/2014 Atrial flutter by electrocardiogram 12/15/2014 02/23/2016 Acute gastritis without mention of hemorrhage 03/06/20 09 02/23/2016 Blood in stool 03/02/2009 02/23/2016 Diverticulitis of colon (wit hout mention of hemorrhage) 04/24/2006 02/23/2016 Unspecified constipation 04/05/2006 documented as of this encounter (statuses as of 06/11/2023) [facility]08-09-2022 History of Past illness Narrative* Problem Noted Date Diagnosed Date Resolved Date Combined form of age-related cataract, both eyes 03/15/2022 03/15/2022 Encounter for support and co ordination of transition of care 11/05/2021 08/17/2022 Overview: Hospital discharge summary Facility: [facility] Date of admission: 05/02/2022 Date of discharge: Preadmission details: 04/24/2022 presented [facility] with complaint of dyspnea on exertion negative for orthopnea moderate in severity with exertional cough. Vital signs: 100.6-61-15-127/55-90% RA identified on exam is no acute distress with normal respiratory effort, otherwise fairly normal. CBC: WBC 7.0-Hgb 12.7-HCT 39.8-PLT 141 with neutrophil percent 75.7, lymphs percent 12.4 low. Chemistries within normal limits except BUN 15-CRE 1.51 with EGFR 48- GLU 143-calcium 8.2-total bilirubin 9.50-albumin 3.1-albumin globulin ratio 0.8. Lactic acid normal at 1.4. BNP 106.1 slightly elevated. UA demonstrated 1+ bilirubin, 4+ urobilinogen, 5-10 RBCs, 10-25 WBCs, 2+ bacteria, coarse granular casts 5-10. Chest x-ray no acute findings. EKG normal sinus rhythm with no injury pattern. Patient was discharged on dexamethasone 6 mg daily #6/0, doxycycline 100 mg p.o. twice daily #20/0, and multiple are 200 mg 800 mg every 12 hours x5 days 05/02/2022 presented [facility] with significant history of tremors, COPD, sleep apnea, CPAP, atrial fibrillation on flecainide, warfare and therapy with 2-week history of progressive weakness. Productive cough thick yellow sputum. Wheezes. Tested positive for COVID 19 9017 2021, with O2 saturation of 88% requiring supplemental oxygen. also tested positive for COVID and reportedly passed out while he was in the emergency department. Physical exam: Vital signs 96.6T-10-63-126/41-95% RA. Identified as well- developed and nourished, bradycardia, otherwise within normal limits. Labwork: CBC and chemistry profiles were unremarkable except for BUN of 36-CR of 1.89-GLU 165-bilirubin 1.10-AST 48-CA 8.3-albumin 2.5 with albumin/globulin ratio 0.6-BNP 207.5. Chest x-ray demonstrated diffuse interstitial coarsening consistent with COPD, nonspecific hazy opacification left lower lung which could represent collapsed airspace Admitted to Dr. Brandon Michel PCU Admission assessment and plan: 1. COVID-19 pneumonia with hypoxia: Started on Decadron in emergency which will be continued, Imodium as needed for diarrhea, Mucinex, or to as needed. Started on azithromycin and ceftriaxone in the emergency department, patient has listed allergy to azithromycin with diarrhea stopped azithromycin. Switch to Levaquin dosed per creatinine clearance. Strep pneumonia and lesion Urine antigens ordered. 2. CHRISTOPHER on CKD stage III 80 likely from diabetic neuropathy and hypertensive nephrosclerosis, baseline creatinine 1.35. Given saline bolus. Trend BMP and avoid nephrotoxins. 3. Paroxysmal atrial fibrillation with bradycardia: Monitor on telemetry, flecainide and metoprolol continued. INR is subtherapeutic on presentation, warfarin adjusted, trend INR 4. Chronic heart failure with preserved ejection fraction with echo 11/01/2021 showing estimated ejection fraction 55% with no diastolic dysfunction. Hold Lasix in setting of CHRISTOPHER 5. Diabetes mellitus: Blood glucose stable, hold metformin, initiate Accu-Cheks with coverage. 6. DVT prophylaxis. Hospital discharge summary: Facility: [facility] Date of admission: 10/31/2021 Date of discharge: Preadmission details: 10/31/2021 patient presented with [facility] emergency department with complaint of shortness of breath, chills, weakness, gradual onset, moderate severity. No measured fever. Patient has history of lung cancer finishing radiation 3 months ago, not currently on chemotherapy. Vital signs 97.8-88-16-130/88-97% room air. Described as well-developed, no acute distress. CBC: WNL, CMP WNL except BUN 21-CRE 1.33-GFR 56, glucose 132, calcium 8.3, albumin 3.0, globulin 4.6. Lactic acid normal 1.9. BNP normal 57.5. Urine within normal limits except 5-10 RBCs, 0-5 WBCs, rare bacteria. Chest x-ray demonstrated mild cardiomegaly with borderline heart failure, no active cardiopulmonary disease otherwise, mild hyperinflation, benign calcification in the right hilar and right infrahilar lesions, mild demineralization. EKG demonstrated normal sinus rhythm, no acute ST or T wave changes, first-degree AV block. Patient did desaturate to 89% while sitting in bed, placed on nasal cannula 2 L, with movement patient sat dropped again to 87%. Patient discussed with hospitalist and recommendation for observation. Hospital course: Patient admitted to PCU. Assessment and plan: 1. Acute on chronic HFpEF/diastolic heart failure exacerbation factor unclear. Possibly related nonadherence to fluid restrictions. And fluid restriction 1500 cc, daily weights, monitor renal and electrolyte function, troponin and 2D echo ordered. Duplex of lower extremity ordered due to edema right greater than left to rule out DVT. 2. 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 Umu Venegas. No overt evidence of pneumonia or COPD. Blood cultures x2 ordered. Bronchodilator every 6 hours, incentive spirometry and PEP for hygiene. Mention is made of non-small cell lung cancer diagnosed via bronchoscopic wash [facility]. 3. Paroxysmal atrial fibrillation status post ablation, oropharyngeal 3. Continue warfarin, metoprolol and flecainide. 4. Diabetes mellitus type 2 blood sugars, Humalog sliding scale, hold Metformin Dyslipidemia fasting profile in a.m.Atorvastatin 6. Ulcerative colitis on mesalamine 7. Chronic kidney disease stage III AAA, monitor electrolytes, started diuretic IV furosemide 8. Other multiple comorbidities including morbid obesity, cardiac smoker of 30 pack years. 9. DVT prophylaxis: Continue warfarin. 10. Opted for full code. 11/01/2021 ultrasound bilateral lower extremity showed no DVT 11/01/2021: Echocardiogram with contrast: LV size and LV SF WNL, ejection fraction 65%, no diastolic dysfunction, no regional wall motion abnormalities. RV normal size and RV SF. Left and right atrium normal size, no ASD. Mild focal mitral valve calcification anterior leaflet, mild HI. TV: No stenosis, unable to estimate RSVP. AV: Mild diffuse aortic valve thickening, no stenosis. Pulmonic valve WNL. Normal aortic root, no pericardial effusion. Additional labs: 11/02/2021 WBC 10.3-Hgb 13.4-HCT 40.8-PLT 169. 11/03/2021 sodium 136-CL 103-K4.1-CO2 25.0-BUN 37-CRE 1.43-glucose 269-EGFR 51. 11/01/2021 blood culture x2 no growth left and right hand. Sputum culture expectorated x2: Mixed baljinder, no Streptococcus or Staphylococcus isolated. Urine culture no growth, Legionella and Streptococcus pneumonia antigens negative. SARS Covid and flu test negative. Patient diagnosis was transition from congestive heart failure COPD based on findings. Antibiotics do not seem to be warranted. He improved over 48 hours with initiation of steroids and was weaned from 4 L to 0 over that timeframe. Patient saturations remained above 90% did not qualify for home oxygen. Pulmonology was consulted, recommend initiation of Anoro Ellipta as well as prednisone taper on discharge. Was found to have right-sided candidiasis in the axilla, initiate nystatin powder with good improvement. Discharged in stable condition. Patient is to follow-up with Dr. Gillespie regards to lung cancer in February and follow-up with me in 2 weeks. Discharge diagnoses: As above. Medication reconciliation: New medications: Nystatin 1000 units/g powder 1 application twice daily 15/0 Anoro Ellipta 62.5-25 MCG per actuation blister device: 1 inhalation every 24 hours, 60/0 Prednisone 10 mg daily #30/0 Other medications were continued without change. Follow-up scheduled 01/11/[address] Vikram Easton pulmonology Appointments to be scheduled with Dr. Amezcua Appointment with me for 03/26/2022 Personal history of colonic polyps 03/01/2021 03/01/2021 Chronic diastolic CHF (conge stive heart failure) 04/01/2019 02/13/2022 Chronic ulcerative enterocolitis 12/10/2015 12/10/2015 Chronic anticoagulation 06/19/201502/04 Hemorrhage of gastrointestin al tract, unspecified 12/31/2014 12/31/2014 Atrial flutter by electrocardiogram 12/15/2014 02/23/2016 Acute gastritis without mention of hemorrhage 03/06/2002/23/2016 Blood in stool 03/02/2009 02/23/2016 Diverticulitis of colon (wit petros mention of hemorrhage) 04/24/2006 02/23/2016 Unspecified constipation 04/05/2006 documented as of this encounter (statuses as of 06/11/2023) [facility]08-09-2022 History of Past illness Narrative* Problem Noted Date Diagnosed Date Resolved Date Combined form of age-related cataract, both eyes 03/15/2022 03/15/2022 Encounter for support and co ordination of transition of care 11/05/2021 08/17/2022 Overview: Hospital discharge summary Facility: [facility] Date of admission: 05/02/2022 Date of discharge: Preadmission details: 04/24/2022 presented [facility] with complaint of dyspnea on exertion negative for orthopnea moderate in severity with exertional cough. Vital signs: 100.6-61-15-127/55-90% RA identified on exam is no acute distress with normal respiratory effort, otherwise fairly normal. CBC: WBC 7.0-Hgb 12.7-HCT 39.8-PLT 141 with neutrophil percent 75.7, lymphs percent 12.4 low. Chemistries within normal limits except BUN 15-CRE 1.51 with EGFR 48- GLU 143-calcium 8.2-total bilirubin 9.50-albumin 3.1-albumin globulin ratio 0.8. Lactic acid normal at 1.4. BNP 106.1 slightly elevated. UA demonstrated 1+ bilirubin, 4+ urobilinogen, 5-10 RBCs, 10-25 WBCs, 2+ bacteria, coarse granular casts 5-10. Chest x-ray no acute findings. EKG normal sinus rhythm with no injury pattern. Patient was discharged on dexamethasone 6 mg daily #6/0, doxycycline 100 mg p.o. twice daily #20/0, and multiple are 200 mg 800 mg every 12 hours x5 days 05/02/2022 presented [facility] with significant history of tremors, COPD, sleep apnea, CPAP, atrial fibrillation on flecainide, warfare and therapy with 2-week history of progressive weakness. Productive cough thick yellow sputum. Wheezes. Tested positive for COVID 19 9017 2021, with O2 saturation of 88% requiring supplemental oxygen. also tested positive for COVID and reportedly passed out while he was in the emergency department. Physical exam: Vital signs 96.7W-65-50-126/41-95% RA. Identified as well- developed and nourished, bradycardia, otherwise within normal limits. Labwork: CBC and chemistry profiles were unremarkable except for BUN of 36-CR of 1.89-GLU 165-bilirubin 1.10-AST 48-CA 8.3-albumin 2.5 with albumin/globulin ratio 0.6-BNP 207.5. Chest x-ray demonstrated diffuse interstitial coarsening consistent with COPD, nonspecific hazy opacification left lower lung which could represent collapsed airspace Admitted to Dr. Brandon Michel PCU Admission assessment and plan: 1. COVID-19 pneumonia with hypoxia: Started on Decadron in emergency which will be continued, Imodium as needed for diarrhea, Mucinex, or to as needed. Started on azithromycin and ceftriaxone in the emergency department, patient has listed allergy to azithromycin with diarrhea stopped azithromycin. Switch to Levaquin dosed per creatinine clearance. Strep pneumonia and lesion Urine antigens ordered. 2. CHRISTOPHER on CKD stage III 80 likely from diabetic neuropathy and hypertensive nephrosclerosis, baseline creatinine 1.35. Given saline bolus. Trend BMP and avoid nephrotoxins. 3. Paroxysmal atrial fibrillation with bradycardia: Monitor on telemetry, flecainide and metoprolol continued. INR is subtherapeutic on presentation, warfarin adjusted, trend INR 4. Chronic heart failure with preserved ejection fraction with echo 11/01/2021 showing estimated ejection fraction 55% with no diastolic dysfunction. Hold Lasix in setting of CHRISTOPHER 5. Diabetes mellitus: Blood glucose stable, hold metformin, initiate Accu-Cheks with coverage. 6. DVT prophylaxis. Hospital discharge summary: Facility: [facility] Date of admission: 10/31/2021 Date of discharge: Preadmission details: 10/31/2021 patient presented with [facility] emergency department with complaint of shortness of breath, chills, weakness, gradual onset, moderate severity. No measured fever. Patient has history of lung cancer finishing radiation 3 months ago, not currently on chemotherapy. Vital signs 97.8-88-16-130/88-97% room air. Described as well-developed, no acute distress. CBC: WNL, CMP WNL except BUN 21-CRE 1.33-GFR 56, glucose 132, calcium 8.3, albumin 3.0, globulin 4.6. Lactic acid normal 1.9. BNP normal 57.5. Urine within normal limits except 5-10 RBCs, 0-5 WBCs, rare bacteria. Chest x-ray demonstrated mild cardiomegaly with borderline heart failure, no active cardiopulmonary disease otherwise, mild hyperinflation, benign calcification in the right hilar and right infrahilar lesions, mild demineralization. EKG demonstrated normal sinus rhythm, no acute ST or T wave changes, first-degree AV block. Patient did desaturate to 89% while sitting in bed, placed on nasal cannula 2 L, with movement patient sat dropped again to 87%. Patient discussed with hospitalist and recommendation for observation. Hospital course: Patient admitted to PCU. Assessment and plan: 1. Acute on chronic HFpEF/diastolic heart failure exacerbation factor unclear. Possibly related nonadherence to fluid restrictions. And fluid restriction 1500 cc, daily weights, monitor renal and electrolyte function, troponin and 2D echo ordered. Duplex of lower extremity ordered due to edema right greater than left to rule out DVT. 2. 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 Umu Ziegler No overt evidence of pneumonia or COPD. Blood cultures x2 ordered. Bronchodilator every 6 hours, incentive spirometry and PEP for hygiene. Mention is made of non-small cell lung cancer diagnosed via bronchoscopic wash [facility]. 3. Paroxysmal atrial fibrillation status post ablation, oropharyngeal 3. Continue warfarin, metoprolol and flecainide. 4. Diabetes mellitus type 2 blood sugars, Humalog sliding scale, hold Metformin Dyslipidemia fasting profile in a.m.Atorvastatin 6. Ulcerative colitis on mesalamine 7. Chronic kidney disease stage III AAA, monitor electrolytes, started diuretic IV furosemide 8. Other multiple comorbidities including morbid obesity, cardiac smoker of 30 pack years. 9. DVT prophylaxis: Continue warfarin. 10. Opted for full code. 11/01/2021 ultrasound bilateral lower extremity showed no DVT 11/01/2021: Echocardiogram with contrast: LV size and LV SF WNL, ejection fraction 65%, no diastolic dysfunction, no regional wall motion abnormalities. RV normal size and RV SF. Left and right atrium normal size, no ASD. Mild focal mitral valve calcification anterior leaflet, mild HI. TV: No stenosis, unable to estimate RSVP. AV: Mild diffuse aortic valve thickening, no stenosis. Pulmonic valve WNL. Normal aortic root, no pericardial effusion. Additional labs: 11/02/2021 WBC 10.3-Hgb 13.4-HCT 40.8-PLT 169. 11/03/2021 sodium 136-CL 103-K4.1-CO2 25.0-BUN 37-CRE 1.43-glucose 269-EGFR 51. 11/01/2021 blood culture x2 no growth left and right hand. Sputum culture expectorated x2: Mixed baljinder, no Streptococcus or Staphylococcus isolated. Urine culture no growth, Legionella and Streptococcus pneumonia antigens negative. SARS Covid and flu test negative. Patient diagnosis was transition from congestive heart failure COPD based on findings. Antibiotics do not seem to be warranted. He improved over 48 hours with initiation of steroids and was weaned from 4 L to 0 over that timeframe. Patient saturations remained above 90% did not qualify for home oxygen. Pulmonology was consulted, recommend initiation of Anoro Ellipta as well as prednisone taper on discharge. Was found to have right-sided candidiasis in the axilla, initiate nystatin powder with good improvement. Discharged in stable condition. Patient is to follow-up with Dr. Gillespie regards to lung cancer in February and follow-up with me in 2 weeks. Discharge diagnoses: As above. Medication reconciliation: New medications: Nystatin 1000 units/g powder 1 application twice daily 15/0 Anoro Ellipta 62.5-25 MCG per actuation blister device: 1 inhalation every 24 hours, 60/0 Prednisone 10 mg daily #30/0 Other medications were continued without change. Follow-up scheduled 01/11/[address] Vikram Easton pulmonology Appointments to be scheduled with Dr. Amezcua [facility] Personal history of colonic polyps 03/01/2021 03/01/2021 Chronic diastolic CHF (conge stive heart failure) 04/01/2019 02/13/2022 Chronic ulcerative enterocolitis 12/10/2015 12/10/2015 Chronic anticoagulation 06/19/201502/04 Hemorrhage of gastrointestin al tract, unspecified 12/31/2014 12/31/2014 Atrial flutter by electrocardiogram 12/15/2014 02/23/2016 Acute gastritis without mention of hemorrhage 03/06/2002/23/2016 Blood in stool 03/02/2009 02/23/2016 Diverticulitis of colon (lora morrell mention of hemorrhage) 04/24/2006 02/23/2016 Unspecified constipation 04/05/2006 documented as of this encounter (statuses as of 06/11/2023) [facility]08-09-2022 History of Past illness Narrative* Problem Noted Date Diagnosed Date Resolved Date Combined form of age-related cataract, both eyes 03/15/2022 03/15/2022 Encounter for support and co ordination of transition of care 11/05/2021 08/17/2022 Overview: Hospital discharge summary Facility: [facility] Date of admission: 05/02/2022 Date of discharge: Preadmission details: 04/24/2022 presented [facility] with complaint of dyspnea on exertion negative for orthopnea moderate in severity with exertional cough. Vital signs: 100.6-61-15-127/55-90% RA identified on exam is no acute distress with normal respiratory effort, otherwise fairly normal. CBC: WBC 7.0-Hgb 12.7-HCT 39.8-PLT 141 with neutrophil percent 75.7, lymphs percent 12.4 low. Chemistries within normal limits except BUN 15-CRE 1.51 with EGFR 48- GLU 143-calcium 8.2-total bilirubin 9.50-albumin 3.1-albumin globulin ratio 0.8. Lactic acid normal at 1.4. BNP 106.1 slightly elevated. UA demonstrated 1+ bilirubin, 4+ urobilinogen, 5-10 RBCs, 10-25 WBCs, 2+ bacteria, coarse granular casts 5-10. Chest x-ray no acute findings. EKG normal sinus rhythm with no injury pattern. Patient was discharged on dexamethasone 6 mg daily #6/0, doxycycline 100 mg p.o. twice daily #20/0, and multiple are 200 mg 800 mg every 12 hours x5 days 05/02/2022 presented [facility] with significant history of tremors, COPD, sleep apnea, CPAP, atrial fibrillation on flecainide, warfare and therapy with 2-week history of progressive weakness. Productive cough thick yellow sputum. Wheezes. Tested positive for COVID 19 9017 2021, with O2 saturation of 88% requiring supplemental oxygen. also tested positive for COVID and reportedly passed out while he was in the emergency department. Physical exam: Vital signs 96.4Q-07-02-126/41-95% RA. Identified as well- developed and nourished, bradycardia, otherwise within normal limits. Labwork: CBC and chemistry profiles were unremarkable except for BUN of 36-CR of 1.89-GLU 165-bilirubin 1.10-AST 48-CA 8.3-albumin 2.5 with albumin/globulin ratio 0.6-BNP 207.5. Chest x-ray demonstrated diffuse interstitial coarsening consistent with COPD, nonspecific hazy opacification left lower lung which could represent collapsed airspace Admitted to Dr. Brandon Michel PCU Admission assessment and plan: 1. COVID-19 pneumonia with hypoxia: Started on Decadron in emergency which will be continued, Imodium as needed for diarrhea, Mucinex, or to as needed. Started on azithromycin and ceftriaxone in the emergency department, patient has listed allergy to azithromycin with diarrhea stopped azithromycin. Switch to Levaquin dosed per creatinine clearance. Strep pneumonia and lesion Urine antigens ordered. 2. CHRISTOPHER on CKD stage III 80 likely from diabetic neuropathy and hypertensive nephrosclerosis, baseline creatinine 1.35. Given saline bolus. Trend BMP and avoid nephrotoxins. 3. Paroxysmal atrial fibrillation with bradycardia: Monitor on telemetry, flecainide and metoprolol continued. INR is subtherapeutic on presentation, warfarin adjusted, trend INR 4. Chronic heart failure with preserved ejection fraction with echo 11/01/2021 showing estimated ejection fraction 55% with no diastolic dysfunction. Hold Lasix in setting of CHRISTOPHER 5. Diabetes mellitus: Blood glucose stable, hold metformin, initiate Accu-Cheks with coverage. 6. DVT prophylaxis. Hospital discharge summary: Facility: [facility] Date of admission: 10/31/2021 Date of discharge: Preadmission details: 10/31/2021 patient presented with [facility] emergency department with complaint of shortness of breath, chills, weakness, gradual onset, moderate severity. No measured fever. Patient has history of lung cancer finishing radiation 3 months ago, not currently on chemotherapy. Vital signs 97.8-88-16-130/88-97% room air. Described as well-developed, no acute distress. CBC: WNL, CMP WNL except BUN 21-CRE 1.33-GFR 56, glucose 132, calcium 8.3, albumin 3.0, globulin 4.6. Lactic acid normal 1.9. BNP normal 57.5. Urine within normal limits except 5-10 RBCs, 0-5 WBCs, rare bacteria. Chest x-ray demonstrated mild cardiomegaly with borderline heart failure, no active cardiopulmonary disease otherwise, mild hyperinflation, benign calcification in the right hilar and right infrahilar lesions, mild demineralization. EKG demonstrated normal sinus rhythm, no acute ST or T wave changes, first-degree AV block. Patient did desaturate to 89% while sitting in bed, placed on nasal cannula 2 L, with movement patient sat dropped again to 87%. Patient discussed with hospitalist and recommendation for observation. Hospital course: Patient admitted to PCU. Assessment and plan: 1. Acute on chronic HFpEF/diastolic heart failure exacerbation factor unclear. Possibly related nonadherence to fluid restrictions. And fluid restriction 1500 cc, daily weights, monitor renal and electrolyte function, troponin and 2D echo ordered. Duplex of lower extremity ordered due to edema right greater than left to rule out DVT. 2. 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 Umu Ziegler No overt evidence of pneumonia or COPD. Blood cultures x2 ordered. Bronchodilator every 6 hours, incentive spirometry and PEP for hygiene. Mention is made of non-small cell lung cancer diagnosed via bronchoscopic wash [facility]. 3. Paroxysmal atrial fibrillation status post ablation, oropharyngeal 3. Continue warfarin, metoprolol and flecainide. 4. Diabetes mellitus type 2 blood sugars, Humalog sliding scale, hold Metformin Dyslipidemia fasting profile in a.m.Atorvastatin 6. Ulcerative colitis on mesalamine 7. Chronic kidney disease stage III AAA, monitor electrolytes, started diuretic IV furosemide 8. Other multiple comorbidities including morbid obesity, cardiac smoker of 30 pack years. 9. DVT prophylaxis: Continue warfarin. 10. Opted for full code. 11/01/2021 ultrasound bilateral lower extremity showed no DVT 11/01/2021: Echocardiogram with contrast: LV size and LV SF WNL, ejection fraction 65%, no diastolic dysfunction, no regional wall motion abnormalities. RV normal size and RV SF. Left and right atrium normal size, no ASD. Mild focal mitral valve calcification anterior leaflet, mild HI. TV: No stenosis, unable to estimate RSVP. AV: Mild diffuse aortic valve thickening, no stenosis. Pulmonic valve WNL. Normal aortic root, no pericardial effusion. Additional labs: 11/02/2021 WBC 10.3-Hgb 13.4-HCT 40.8-PLT 169. 11/03/2021 sodium 136-CL 103-K4.1-CO2 25.0-BUN 37-CRE 1.43-glucose 269-EGFR 51. 11/01/2021 blood culture x2 no growth left and right hand. Sputum culture expectorated x2: Mixed baljinder, no Streptococcus or Staphylococcus isolated. Urine culture no growth, Legionella and Streptococcus pneumonia antigens negative. SARS Covid and flu test negative. Patient diagnosis was transition from congestive heart failure COPD based on findings. Antibiotics do not seem to be warranted. He improved over 48 hours with initiation of steroids and was weaned from 4 L to 0 over that timeframe. Patient saturations remained above 90% did not qualify for home oxygen. Pulmonology was consulted, recommend initiation of Anoro Ellipta as well as prednisone taper on discharge. Was found to have right-sided candidiasis in the axilla, initiate nystatin powder with good improvement. Discharged in stable condition. Patient is to follow-up with Dr. Gillespie regards to lung cancer in February and follow-up with me in 2 weeks. Discharge diagnoses: As above. Medication reconciliation: New medications: Nystatin 1000 units/g powder 1 application twice daily 15/0 Anoro Ellipta 62.5-25 MCG per actuation blister device: 1 inhalation every 24 hours, 60/0 Prednisone 10 mg daily #30/0 Other medications were continued without change. Follow-up scheduled 01/11/[address] Vikram Easton pulmonology Appointments to be scheduled with Dr. Amezcua Appointment with me for 03/26/2022 Personal history of colonic polyps 03/01/2021 03/01/2021 Chronic diastolic CHF (conge stive heart failure) 04/01/2019 02/13/2022 Chronic ulcerative enterocolitis 12/10/2015 12/10/2015 Chronic anticoagulation 06/19/201502/04 Hemorrhage of gastrointestin al tract, unspecified 12/31/2014 12/31/2014 Atrial flutter by electrocardiogram 12/15/2014 02/23/2016 Acute gastritis without mention of hemorrhage 03/06/2002/23/2016 Blood in stool 03/02/2009 02/23/2016 Diverticulitis of colon (wit hout mention of hemorrhage) 04/24/2006 02/23/2016 Unspecified constipation 04/05/2006 documented as of this encounter (statuses as of 06/11/2023) [facility]08-09-2022 History of Past illness Narrative* Problem Noted Date Diagnosed Date Resolved Date Combined form of age-related cataract, both eyes 03/15/2022 03/15/2022 Encounter for support and co ordination of transition of care 11/05/2021 08/17/2022 Overview: Hospital discharge summary Facility: [facility] Date of admission: 05/02/2022 Date of discharge: Preadmission details: 04/24/2022 presented [facility] with complaint of dyspnea on exertion negative for orthopnea moderate in severity with exertional cough. Vital signs: 100.6-61-15-127/55-90% RA identified on exam is no acute distress with normal respiratory effort, otherwise fairly normal. CBC: WBC 7.0-Hgb 12.7-HCT 39.8-PLT 141 with neutrophil percent 75.7, lymphs percent 12.4 low. Chemistries within normal limits except BUN 15-CRE 1.51 with EGFR 48- GLU 143-calcium 8.2-total bilirubin 9.50-albumin 3.1-albumin globulin ratio 0.8. Lactic acid normal at 1.4. BNP 106.1 slightly elevated. UA demonstrated 1+ bilirubin, 4+ urobilinogen, 5-10 RBCs, 10-25 WBCs, 2+ bacteria, coarse granular casts 5-10. Chest x-ray no acute findings. EKG normal sinus rhythm with no injury pattern. Patient was discharged on dexamethasone 6 mg daily #6/0, doxycycline 100 mg p.o. twice daily #20/0, and multiple are 200 mg 800 mg every 12 hours x5 days 05/02/2022 presented [facility] with significant history of tremors, COPD, sleep apnea, CPAP, atrial fibrillation on flecainide, warfare and therapy with 2-week history of progressive weakness. Productive cough thick yellow sputum. Wheezes. Tested positive for COVID 19 9017 2021, with O2 saturation of 88% requiring supplemental oxygen. also tested positive for COVID and reportedly passed out while he was in the emergency department. Physical exam: Vital signs 96.3J-89-28-126/41-95% RA. Identified as well- developed and nourished, bradycardia, otherwise within normal limits. Labwork: CBC and chemistry profiles were unremarkable except for BUN of 36-CR of 1.89-GLU 165-bilirubin 1.10-AST 48-CA 8.3-albumin 2.5 with albumin/globulin ratio 0.6-BNP 207.5. Chest x-ray demonstrated diffuse interstitial coarsening consistent with COPD, nonspecific hazy opacification left lower lung which could represent collapsed airspace Admitted to Dr. Brandon Michel PCU Admission assessment and plan: 1. COVID-19 pneumonia with hypoxia: Started on Decadron in emergency which will be continued, Imodium as needed for diarrhea, Mucinex, or to as needed. Started on azithromycin and ceftriaxone in the emergency department, patient has listed allergy to azithromycin with diarrhea stopped azithromycin. Switch to Levaquin dosed per creatinine clearance. Strep pneumonia and lesion Urine antigens ordered. 2. CHRISTOPHER on CKD stage III 80 likely from diabetic neuropathy and hypertensive nephrosclerosis, baseline creatinine 1.35. Given saline bolus. Trend BMP and avoid nephrotoxins. 3. Paroxysmal atrial fibrillation with bradycardia: Monitor on telemetry, flecainide and metoprolol continued. INR is subtherapeutic on presentation, warfarin adjusted, trend INR 4. Chronic heart failure with preserved ejection fraction with echo 11/01/2021 showing estimated ejection fraction 55% with no diastolic dysfunction. Hold Lasix in setting of CHRISTOPHER 5. Diabetes mellitus: Blood glucose stable, hold metformin, initiate Accu-Cheks with coverage. 6. DVT prophylaxis. Hospital discharge summary: Facility: [facility] Date of admission: 10/31/2021 Date of discharge: Preadmission details: 10/31/2021 patient presented with [facility] emergency department with complaint of shortness of breath, chills, weakness, gradual onset, moderate severity. No measured fever. Patient has history of lung cancer finishing radiation 3 months ago, not currently on chemotherapy. Vital signs 97.8-88-16-130/88-97% room air. Described as well-developed, no acute distress. CBC: WNL, CMP WNL except BUN 21-CRE 1.33-GFR 56, glucose 132, calcium 8.3, albumin 3.0, globulin 4.6. Lactic acid normal 1.9. BNP normal 57.5. Urine within normal limits except 5-10 RBCs, 0-5 WBCs, rare bacteria. Chest x-ray demonstrated mild cardiomegaly with borderline heart failure, no active cardiopulmonary disease otherwise, mild hyperinflation, benign calcification in the right hilar and right infrahilar lesions, mild demineralization. EKG demonstrated normal sinus rhythm, no acute ST or T wave changes, first-degree AV block. Patient did desaturate to 89% while sitting in bed, placed on nasal cannula 2 L, with movement patient sat dropped again to 87%. Patient discussed with hospitalist and recommendation for observation. Hospital course: Patient admitted to PCU. Assessment and plan: 1. Acute on chronic HFpEF/diastolic heart failure exacerbation factor unclear. Possibly related nonadherence to fluid restrictions. And fluid restriction 1500 cc, daily weights, monitor renal and electrolyte function, troponin and 2D echo ordered. Duplex of lower extremity ordered due to edema right greater than left to rule out DVT. 2. 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 Umu Venegas. No overt evidence of pneumonia or COPD. Blood cultures x2 ordered. Bronchodilator every 6 hours, incentive spirometry and PEP for hygiene. Mention is made of non-small cell lung cancer diagnosed via bronchoscopic wash [facility]. 3. Paroxysmal atrial fibrillation status post ablation, oropharyngeal 3. Continue warfarin, metoprolol and flecainide. 4. Diabetes mellitus type 2 blood sugars, Humalog sliding scale, hold Metformin Dyslipidemia fasting profile in a.m.Atorvastatin 6. Ulcerative colitis on mesalamine 7. Chronic kidney disease stage III AAA, monitor electrolytes, started diuretic IV furosemide 8. Other multiple comorbidities including morbid obesity, cardiac smoker of 30 pack years. 9. DVT prophylaxis: Continue warfarin. 10. Opted for full code. 11/01/2021 ultrasound bilateral lower extremity showed no DVT 11/01/2021: Echocardiogram with contrast: LV size and LV SF WNL, ejection fraction 65%, no diastolic dysfunction, no regional wall motion abnormalities. RV normal size and RV SF. Left and right atrium normal size, no ASD. Mild focal mitral valve calcification anterior leaflet, mild HI. TV: No stenosis, unable to estimate RSVP. AV: Mild diffuse aortic valve thickening, no stenosis. Pulmonic valve WNL. Normal aortic root, no pericardial effusion. Additional labs: 11/02/2021 WBC 10.3-Hgb 13.4-HCT 40.8-PLT 169. 11/03/2021 sodium 136-CL 103-K4.1-CO2 25.0-BUN 37-CRE 1.43-glucose 269-EGFR 51. 11/01/2021 blood culture x2 no growth left and right hand. Sputum culture expectorated x2: Mixed baljinder, no Streptococcus or Staphylococcus isolated. Urine culture no growth, Legionella and Streptococcus pneumonia antigens negative. SARS Covid and flu test negative. Patient diagnosis was transition from congestive heart failure COPD based on findings. Antibiotics do not seem to be warranted. He improved over 48 hours with initiation of steroids and was weaned from 4 L to 0 over that timeframe. Patient saturations remained above 90% did not qualify for home oxygen. Pulmonology was consulted, recommend initiation of Anoro Ellipta as well as prednisone taper on discharge. Was found to have right-sided candidiasis in the axilla, initiate nystatin powder with good improvement. Discharged in stable condition. Patient is to follow-up with Dr. Gillespie regards to lung cancer in February and follow-up with me in 2 weeks. Discharge diagnoses: As above. Medication reconciliation: New medications: Nystatin 1000 units/g powder 1 application twice daily 15/0 Anoro Ellipta 62.5-25 MCG per actuation blister device: 1 inhalation every 24 hours, 60/0 Prednisone 10 mg daily #30/0 Other medications were continued without change. Follow-up scheduled 01/11/[address] Vikram Easton pulmonology Appointments to be scheduled with Dr. Amezcua Appointment with me for 03/26/2022 Personal history of colonic polyps 03/01/2021 03/01/2021 Chronic diastolic CHF (conge stive heart failure) 04/01/2019 02/13/2022 Chronic ulcerative enterocolitis 12/10/2015 12/10/2015 Chronic anticoagulation 06/19/201502/04 Hemorrhage of gastrointestin al tract, unspecified 12/31/2014 12/31/2014 Atrial flutter by electrocardiogram 12/15/2014 02/23/2016 Acute gastritis without mention of hemorrhage 03/06/2002/23/2016 Blood in stool 03/02/2009 02/23/2016 Diverticulitis of colon (wit hout mention of hemorrhage) 04/24/2006 02/23/2016 Unspecified constipation 04/05/2006 documented as of this encounter (statuses as of 06/17/2023) [facility]08-09-2022 History of Past illness Narrative* Problem Noted Date Diagnosed Date Resolved Date Combined form of age-related cataract, both eyes 03/15/2022 03/15/2022 Encounter for support and co ordination of transition of care 11/05/2021 08/17/2022 Overview: Hospital discharge summary Facility: [facility] Date of admission: 05/02/2022 Date of discharge: Preadmission details: 04/24/2022 presented [facility] with complaint of dyspnea on exertion negative for orthopnea moderate in severity with exertional cough. Vital signs: 100.6-61-15-127/55-90% RA identified on exam is no acute distress with normal respiratory effort, otherwise fairly normal. CBC: WBC 7.0-Hgb 12.7-HCT 39.8-PLT 141 with neutrophil percent 75.7, lymphs percent 12.4 low. Chemistries within normal limits except BUN 15-CRE 1.51 with EGFR 48- GLU 143-calcium 8.2-total bilirubin 9.50-albumin 3.1-albumin globulin ratio 0.8. Lactic acid normal at 1.4. BNP 106.1 slightly elevated. UA demonstrated 1+ bilirubin, 4+ urobilinogen, 5-10 RBCs, 10-25 WBCs, 2+ bacteria, coarse granular casts 5-10. Chest x-ray no acute findings. EKG normal sinus rhythm with no injury pattern. Patient was discharged on dexamethasone 6 mg daily #6/0, doxycycline 100 mg p.o. twice daily #20/0, and multiple are 200 mg 800 mg every 12 hours x5 days 05/02/2022 presented [facility] with significant history of tremors, COPD, sleep apnea, CPAP, atrial fibrillation on flecainide, warfare and therapy with 2-week history of progressive weakness. Productive cough thick yellow sputum. Wheezes. Tested positive for COVID 19 9017 2021, with O2 saturation of 88% requiring supplemental oxygen. also tested positive for COVID and reportedly passed out while he was in the emergency department. Physical exam: Vital signs 96.5D-90-09-126/41-95% RA. Identified as well- developed and nourished, bradycardia, otherwise within normal limits. Labwork: CBC and chemistry profiles were unremarkable except for BUN of 36-CR of 1.89-GLU 165-bilirubin 1.10-AST 48-CA 8.3-albumin 2.5 with albumin/globulin ratio 0.6-BNP 207.5. Chest x-ray demonstrated diffuse interstitial coarsening consistent with COPD, nonspecific hazy opacification left lower lung which could represent collapsed airspace Admitted to Dr. Brandon Michel PCU Admission assessment and plan: 1. COVID-19 pneumonia with hypoxia: Started on Decadron in emergency which will be continued, Imodium as needed for diarrhea, Mucinex, or to as needed. Started on azithromycin and ceftriaxone in the emergency department, patient has listed allergy to azithromycin with diarrhea stopped azithromycin. Switch to Levaquin dosed per creatinine clearance. Strep pneumonia and lesion Urine antigens ordered. 2. CHRISTOPHER on CKD stage III 80 likely from diabetic neuropathy and hypertensive nephrosclerosis, baseline creatinine 1.35. Given saline bolus. Trend BMP and avoid nephrotoxins. 3. Paroxysmal atrial fibrillation with bradycardia: Monitor on telemetry, flecainide and metoprolol continued. INR is subtherapeutic on presentation, warfarin adjusted, trend INR 4. Chronic heart failure with preserved ejection fraction with echo 11/01/2021 showing estimated ejection fraction 55% with no diastolic dysfunction. Hold Lasix in setting of CHRISTOPHER 5. Diabetes mellitus: Blood glucose stable, hold metformin, initiate Accu-Cheks with coverage. 6. DVT prophylaxis. Hospital discharge summary: Facility: [facility] Date of admission: 10/31/2021 Date of discharge: Preadmission details: 10/31/2021 patient presented with [facility] emergency department with complaint of shortness of breath, chills, weakness, gradual onset, moderate severity. No measured fever. Patient has history of lung cancer finishing radiation 3 months ago, not currently on chemotherapy. Vital signs 97.8-88-16-130/88-97% room air. Described as well-developed, no acute distress. CBC: WNL, CMP WNL except BUN 21-CRE 1.33-GFR 56, glucose 132, calcium 8.3, albumin 3.0, globulin 4.6. Lactic acid normal 1.9. BNP normal 57.5. Urine within normal limits except 5-10 RBCs, 0-5 WBCs, rare bacteria. Chest x-ray demonstrated mild cardiomegaly with borderline heart failure, no active cardiopulmonary disease otherwise, mild hyperinflation, benign calcification in the right hilar and right infrahilar lesions, mild demineralization. EKG demonstrated normal sinus rhythm, no acute ST or T wave changes, first-degree AV block. Patient did desaturate to 89% while sitting in bed, placed on nasal cannula 2 L, with movement patient sat dropped again to 87%. Patient discussed with hospitalist and recommendation for observation. Hospital course: Patient admitted to PCU. Assessment and plan: 1. Acute on chronic HFpEF/diastolic heart failure exacerbation factor unclear. Possibly related nonadherence to fluid restrictions. And fluid restriction 1500 cc, daily weights, monitor renal and electrolyte function, troponin and 2D echo ordered. Duplex of lower extremity ordered due to edema right greater than left to rule out DVT. 2. 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 Umu Ziegler No overt evidence of pneumonia or COPD. Blood cultures x2 ordered. Bronchodilator every 6 hours, incentive spirometry and PEP for hygiene. Mention is made of non-small cell lung cancer diagnosed via bronchoscopic wash [facility]. 3. Paroxysmal atrial fibrillation status post ablation, oropharyngeal 3. Continue warfarin, metoprolol and flecainide. 4. Diabetes mellitus type 2 blood sugars, Humalog sliding scale, hold Metformin Dyslipidemia fasting profile in a.m.Atorvastatin 6. Ulcerative colitis on mesalamine 7. Chronic kidney disease stage III AAA, monitor electrolytes, started diuretic IV furosemide 8. Other multiple comorbidities including morbid obesity, cardiac smoker of 30 pack years. 9. DVT prophylaxis: Continue warfarin. 10. Opted for full code. 11/01/2021 ultrasound bilateral lower extremity showed no DVT 11/01/2021: Echocardiogram with contrast: LV size and LV SF WNL, ejection fraction 65%, no diastolic dysfunction, no regional wall motion abnormalities. RV normal size and RV SF. Left and right atrium normal size, no ASD. Mild focal mitral valve calcification anterior leaflet, mild HI. TV: No stenosis, unable to estimate RSVP. AV: Mild diffuse aortic valve thickening, no stenosis. Pulmonic valve WNL. Normal aortic root, no pericardial effusion. Additional labs: 11/02/2021 WBC 10.3-Hgb 13.4-HCT 40.8-PLT 169. 11/03/2021 sodium 136-CL 103-K4.1-CO2 25.0-BUN 37-CRE 1.43-glucose 269-EGFR 51. 11/01/2021 blood culture x2 no growth left and right hand. Sputum culture expectorated x2: Mixed baljinder, no Streptococcus or Staphylococcus isolated. Urine culture no growth, Legionella and Streptococcus pneumonia antigens negative. SARS Covid and flu test negative. Patient diagnosis was transition from congestive heart failure COPD based on findings. Antibiotics do not seem to be warranted. He improved over 48 hours with initiation of steroids and was weaned from 4 L to 0 over that timeframe. Patient saturations remained above 90% did not qualify for home oxygen. Pulmonology was consulted, recommend initiation of Anoro Ellipta as well as prednisone taper on discharge. Was found to have right-sided candidiasis in the axilla, initiate nystatin powder with good improvement. Discharged in stable condition. Patient is to follow-up with Dr. Gillespie regards to lung cancer in February and [facility] Discharge diagnoses: As above. Medication reconciliation: New medications: Nystatin 1000 units/g powder 1 application twice daily 15/0 Anoro Ellipta 62.5-25 MCG per actuation blister device: 1 inhalation every 24 hours, 60/0 Prednisone 10 mg daily #30/0 Other medications were continued without change. Follow-up scheduled 01/11/[address] Vikram Easton pulmonology Appointments to be scheduled with Dr. Amezcua Appointment with me for 03/26/2022 Personal history of colonic polyps 03/01/2021 03/01/2021 Chronic diastolic CHF (conge stive heart failure) 04/01/2019 02/13/2022 Chronic ulcerative enterocolitis 12/10/2015 12/10/2015 Chronic anticoagulation 06/19/201502/04 Hemorrhage of gastrointestin al tract, unspecified 12/31/2014 12/31/2014 Atrial flutter by electrocardiogram 12/15/2014 02/23/2016 Acute gastritis without mention of hemorrhage 03/06/2002/23/2016 Blood in stool 03/02/2009 02/23/2016 Diverticulitis of colon (wit hout mention of hemorrhage) 04/24/2006 02/23/2016 Unspecified constipation 04/05/2006 documented as of this encounter (statuses as of 06/21/2023) [facility]08-09-2022 Hospital Discharge instructions* Discharge Instr - Other Orders* Martha Marcus MD - 03/15/2022 10:08 AM EDT Instructions After Cataract Surgery It is very important to follow these instructions after your eye surgery to ensure its success. A responsible adult must drive you home after the surgery. You might feel well, but the medicines given during the surgery might affect you for several hours. Do not drive or operate machinery for the rest of the day. We recommend that a responsible adult stay with you for 24 hours after surgery. Eye Protection - You may wear your glasses during the day. Before you go to sleep, put on the protective shield without a cotton patch. Activity - You may use your eyes for activities such as reading, writing, and watching television as much as you choose. Your vision might be blurred, but you will not harm your operated eye by trying to use it. Ask about driving when you see your doctor at your follow up appointment. Avoid the following activities for 2 weeks after surgery: Heavy lifting (over 20 pounds) Swimming Strenuous exercise or activity Working in may places Activities that might injure your eye Daily hygiene - You may shower and wash your hair and face as usual, but DO NOT rub your operated eye. Try to avoid getting soap or water in your eyes. Pain management - Pain after eye surgery is not common. Most people do not need oral pain medicine.If you do have some eye pain or a headache, you may take acetaminophen unless there is some reason you cannot take this medication (i.e., liver disease, allergies, etc.). Follow the instructions on the bottle. Diet - If you feel sick to your stomach, drink only clear liquids. Clear liquids include clear broth, tea, strained fruit juices, strained vegetable soup, black coffee, plain gelatin, and eldon isma.Eat a regular meal when you do not feel sick. Do not drink alcoholic beverages for 24 hours after the surgery. Eye medications - If you have been prescribed or given eye drops and/or ointment, please bring them, this handout and any previous eye drops/ointments you have to your follow up appointment. Your eyemedications will be explained during your follow up appointment. How to give yourself eye drops or ointment Wash your hands with soap and warm water. Dry them with a clean towel. If you are putting in your own eye medicine, lie down or use a mirror. Ask someone to check that you are getting the medicine in your eye. Look up to the ceiling with both eyes. Pull the lower lid of your eye down with one hand. Hold the medicine bottle or tube in your other hand. (if necessary, rest part of your hand on your forehead to keep it steady). Place a drop of medicine or a small amount of ointment inside your lower lid. The tip of the medicine bottle or tube should not touch your eye. Close your eyes for a minute after putting in the medicine. If you are prescribed both eye drops and eye ointment, use the eye drops first. If you have more than one eye medicine to put in your eyes, wait about 5 minutes after the first medicine before putting the second medicine. Call your surgeon immediately if you experience: Increased or severe eye pain Bleeding from the eye Sudden decrease in vision or decreased ability to see light Discharge from the eye Any questions or problems Call your doctor immediately or go to the nearest emergency room if you experience: Nausea or vomiting that won't go away Chest pain Leg cramps A temperature above 101 F or 38.3 C Trouble breathing Contact Martha Evie [phone] and leave voicemail -emergency numbers: [phone] or ext [phone] and ask for the eye doctor correctional lieutenant. documented in this encounterWilson [facility] Hospital08-09-2022 Miscellaneous Notes* Operative Report - Martha Marcus MD - 03/15/2022 9:28 AM EDT OPERATIVE/PROCEDURE REPORT OPHTHAMOLOGY LOG ID: [id number] SURGERY/PROCEDURE DATE: 03/15/2022 INCISION/PROCEDURE START TIME: 9:46 AM INCISION CLOSE/PROCEDURE END TIME: 10:03 AM SURGEON(S)/PROCEDURALIST(S) AND EXTRUSION PROCESS OPERATOR(S): Surgeon(s) and Role: * Martha Marcus MD - Primary PROCEDURE(S): Procedure(s) (LRB): PHACOEMULSIFICATION CATARACT IMPLANT INTRAOCULAR LENS W/O ENDOSCOPIC CYCLOPHOTOCOAGULATION (Right) OPHTHALMIC BIOMETRY BY PARTIAL COHERENCE INTERFEROMETRY W/INTRAOCULAR LENS POWER CALCULATION (Right) PREOPERATIVE DIAGNOSIS: Combined form of age-related cataract, Right eye. POST-OP/POST-PROCEDURE DIAGNOSIS: Same as Preop OPERATIVE INDICATIONS: blurred vision limiting activities of daily living (ADLs) ANESTHESIA: Monitored Anesthesia Care PROCEDURE DETAILS: The patient was transferred to the operating room where the eye was prepared anddraped in sterile fashion. An eyelid speculum was placed and a paracentesis was performed. Preservative-free lidocaine 1% and viscoelastic were injected into the anterior chamber. A keratome was usedto perform a clear corneal incision. Capsulorrhexis and hydrodissection were performed. The lens nucleus was removed with the phacoemulsification instrument. The residual cortex was removed with the irrigation/aspiration instrument. The capsular bag was filled with viscoelastic, and the above-notedintraocular lens was inserted into the capsular bag. The residual viscoelastic was removed with the irrigation/aspiration instrument. The anterior chamber was reformed with balanced salt solution andthe corneal wounds were hydrated. A water-tight corneal closure was achieve. No suture(s) were placed in the wound. Intracameral injection of antibiotic was performed. Topical steroid medication was applied to the operated eye and it was covered with a protective shield. The patient was transferredto the recovery room in stable condition. ESTIMATED BLOOD LOSS: Minimal unless noted here. SPECIMENS: * No specimens in log * IMPLANTABLE DEVICES: * No implants in log * Ocular Co-Morbidities: No Intra-operative Complications None I/primary surgeon/proceduralist performed the entire procedure. SIGNATURE: Martha Marcus MD PATIENT NAME: Oliverio Oshea DATE: March 15, 2022 TIME: 10:08 AM PAGER/CONTACT #: [phone] documented in this encounterWilson Memorial Hospital08-09-2022 History and physical note * Martha Marcus MD - 03/15/2022 9:13 AM EDT UPDATED HISTORY AND PHYSICAL EXAMINATION SERVICE DATE: 03/15/2022 SERVICE TIME: 9:13 AM PHYSICAL EXAM MUST BE COMPLETED ON ADMISSION The History and Physical (completed in the past 30 days) has been reviewed and the patient has beenexamined. The contents accurately reflect the patient's condition with the following additions or revisions since the H&P was completed. Examination indicates no changes. This H&P can be found in the attached. SIGNATURE: Martha Marcus MD PATIENT NAME: Oliverio Oshea DATE: March 15, 2022 TIME: 9:13 AM documented in this encounterWilson Memorial Hospital07-13-2022 Miscellaneous Notes* Telephone Encounter - Doris Stokes - 02/16/2022 12:42 PM EDT Patient called to schedule both appointments Monday08/22/2022 @ 8:00am CT and Monday08/26/2022 @11:00am Dr Pedrito Oro Pss * Telephone Encounter - Leila Morin - 02/16/2022 12:21 PM EDT LM for patient to return call. When patient calls, please schedule CT Chest in August 2022 and then the following appointment 2-3 days later in ANY OPEN 30 MINUTE APPOINTMENT THAT IS NOT A Monday: DEPT: [facility] APPT NOTE: 6 MO FOLLOW UP/CT ?* (PLEASE PUT CT DATE IN NOTE) APPT TYPE: PROVIDER SPECIALTY PHONE CALL PROVIDER: ELLEN MAJOR Once scheduled, document and route this note to P [facility] HEM/ONC PSR. Leila Morin documented in this encounterWilson Memorial Hospital07-13-2022 History of Present illness Narrative* Ellen Major MD, MD - 02/16/2022 8:57 AM EDT AMBULATORY TELEPHONE VISIT Oliverio Oshea has consented to this telephone encounter. Persons Present: patient Chief Complaint/Reason: Four week follow-up after radiation treatment. 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 He is doing well without any specific new complaints. He denies any chest pain. Baseline shortness of breath with exertion and occasional cough without significant acute changes. CT chest on 04/03/22 showed, No interval change suggesting recurrent disease. Data Reviewed: Most recent imaging. Assessment: Clinically KATE. Plan: I will get a surveillance CT chest in six months and then a phone visit. Total Time Spent: 5 minutes Ellen Major MD documented in this encounterWilson Memorial Hospital07-12-2022 Miscellaneous Notes* Telephone Encounter - Doris Hwang LPN - 02/15/2022 11:59 AM EDT Raiza from [facility], states she did not receive demographics for pt along with ox order. Demographics faxed to her to [phone]. Doris Hwang LPN * Telephone Encounter - Annita Chance MA - 02/14/2022 7:43 PM EDT Please file future lab orders. Oximetry order faxed. Annita Chance MA * Telephone Encounter - Fransisca Combs PA-C - 02/14/2022 6:14 PM EDT Form completed and sent to nursing desk Ulices Alejandre PA-C * Telephone Encounter - Edita Biggs Ma - 02/14/2022 5:09 PM EDT [facility] Overnight Oximetry form on provider's desk for completion * Telephone Encounter - Fransisca Combs PA-C - 02/14/2022 5:00 PM EDT I haven't had a chance to complete orders and close chart. I will do so before the end of the day. Please have [facility] do overnight pulse oximetry- Hx hypoxic respiratory failure improved. Ulices Alejandre PA-C . * Telephone Encounter - Annita Chance MA - 02/14/2022 12:09 PM EDT Please file routine labs to be completed before next appt. 08/18/22. Patient asking at complete of visit if PCP is going to order a nocturnal pulse oximetry test through [facility]. Please review & advise. Nurse: please notify patient Annita Chance MA documented in this encounterWilson Memorial Hospital07-11-2022 History of Present illness Narrative* Fransisca Combs PA-C - 02/14/2022 11:00 AM EDT HISTORY AND PHYSICAL EXAMINATION SERVICE DATE: 02/13/2022 SERVICE TIME: 11:20 AM PRIMARY CARE PROVIDER: Fransisca Combs PA-C Patient presents for consultation from Dr. Martha Marcus for medical preop clearance. My findings andrecommendations will be communicated through this medical record. 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 Interval history update: - Pulm: [facility] Dr. Vikram Easton [facility] - RT Dr Mavis Major [facility] 07/08/2021 last consult with Umu Hartman CNP diagnosis of COPD, SILVER, lung cancer, at that time on no inhalers, successfully completed 5 radiation treatments for lung cancer with slight increased shortness of breath following radiation. 05/19/2021 completed RT 5 treatments COURSE: SBRT (stereotactic body radiotherapy) AREA TREATED: Right upper lung CURRENT DOSE: 5000 cGy in 5 fx PLANNED DOSE: 5000 cGy in 5 fx 04/16/[address] Ellen Major for radiation therapy. 03/12/[address] [facility]. Because patient could not be sampled through CT biopsy due to location behind scapula, sent to [facility] for possible resection, due to multiple problems was sent here for bronchoscopic sampling. 02/17/2021 [facility] CT chest without contrast: 1.7 cm x 1.16 cm irregular spiculated nodule posterior lateral base right upper lobe. Unable to biopsy as no adequate access. 01/26/2021 PET scan: Increased FDG uptake in the right upper lung/right upper lobe suggesting viableneoplasm. No other hypermetabolic abnormalities noted. 12/09/2020 low-dose CT lung screen [facility] Umu Hartman NP: 1.7 X 1.1 cm irregular nodular density posterior aspect right upper lung with adjacent focal area of scarring. Diffuse emphysematous changes more prominent in upper lobes, mild degree of linear markings at bases suggesting of scarring on the right side. Positive for coronary artery calcification and atherosclerotic calcification of the aortic arch. 04/10/[address] WO: Stable CT chest. Chronic interstitial lung changes stable with some improvementin the lingular atelectasis and right midlung tree-in-bud opacities. New area of juxtapleural tree-in-bud opacities RUL likely inflammatory/infectious process. Stable subpleural thickening + intrafissural lymph nodes RML 02/09/16 CT chest WO: subpleural density may represent tree-in-bud densities which may suggest an inflammatory process, nodular densities RIGHT minor fissure unchanged. Additional follow-up in one year recommended 10/05/15: chest CT WO: linear areas of scarring or subsegmental atelectasis LLL identified on CXR, nodular densities in the right minor fissure which most likely represent intrafissural lymph nodes, bilateral centrilobular emphysematous changes Current medications: Tiotropium olodaterol 2.5 2.5 MCG per actuation: 2 puffs daily Denies current cough, shortness of breath except with significant exertion, orthopnea, wheezing. Since starting current inhaler has had no significant symptoms Notes tingling in fingers on the left hand status post radiation therapy. Feels he does robustly, surprised at his success so far. Pfo (patent foramen ovale) Paf (paroxysmal atrial fibrillation) ([facility]) Acute heart failure with preserved ejection fraction (hfpef) ([facility]) Hyperlipidemia ldl goal <100 Cardiovascular interval hx: Follows with [facility] Last consult: 11/12/2021 hospital admission [facility]: SOB, asthma with COPD exacerbation, HFpEF, hypoxia, etiology unclear. Improved with pulmonary toilet, steroids. Dischrged on Anorao-Ellipta and 5 day oral steroid. Weaned off O2Has done well since. Follows with [facility]. 11/01/2021 ultrasound bilateral lower extremity showed no DVT 11/01/2021: Echocardiogram with contrast: LV size and LV SF WNL, ejection fraction 65%, no diastolicdysfunction, no regional wall motion abnormalities. RV normal size and RV SF. Left and right atriumnormal size, no ASD. Mild focal mitral valve calcification anterior leaflet, mild HI. TV: No stenosis, unable to estimate RSVP. AV: Mild diffuse aortic valve thickening, no stenosis. Pulmonic valve WNL. Normal aortic root, no pericardial effusion.pEF Current meds: Warfare and 2.5 and 4 mg tablets as directed daily Metoprolol tartrate SA 1 tablet twice daily Atorvastatin 40 mg daily Potassium chloride ER 20 mEq 1 tab daily Furosemide 20 mg daily +20 mg prn SOB/edema with gain>3lb Flecainide 20 mg twice daily Prazosin 2 mg twice daily Use of NTG: No Chest pain, arm, jaw pain, neck, or upper back pain suggestive of angina: No. SOB: No Dyspnea with exertion: No orthopnea: No racing or irregular heartbeats: No palpitations: Rare episodes, not sustained syncopal sx: No Unexplainable fatigue No Leg swelling: Yes, 1 out of 4 plus distal Nausea: No diaphoresis: No Heartburn: No Claudication: No Smoking: No Following Low cholesterol, high fiber diet? Tries a little If on statin: muscle aches? No If on statin: GI sx or diarrhea? No Home BP checks: higher than office- thinsk cuff may be defective Additional history: Component Latest Ref Rng & Units 06/03/2021 09/30/2021 01/17/2022 WBC 3.70 - 11.00 k/uL 6.32 7.31 10.15 RBC 4.20 - 6.00 m/uL 4.49 4.65 4.53 Hemoglobin 13.0 - 17.0 g/dL 13.4 13.5 13.3 Hematocrit 39.0 - 51.0 % 42.2 43.0 42.6 MCV 80.0 - 100.0 fL 94.0 92.5 94.0 MCH 26.0 - 34.0 pg 29.8 29.0 29.4 MCHC 30.5 - 36.0 g/dL 31.8 31.4 31.2 RDW-CV 11.5 - 15.0 % 13.7 13.5 14.2 Platelet Count 150 - 400 k/uL 159 179 240 MPV 9.0 - 12.7 fL 10.3 10.3 10.3 Neut% % 71.6 68.5 64.5 Abs Neut (ANC) 1.45 - 7.50 k/uL 4.50 4.99 6.55 Lymph% % 18.0 20.7 26.1 Abs Lymph 1.00 - 4.00 k/uL 1.14 1.51 2.65 [place]% % 7.3 7.0 5.9 Abs [place] <0.87 k/uL 0.46 0.51 0.60 Eosin% % 2.8 3.4 1.8 Abs Eosin <0.46 k/uL 0.18 0.25 0.18 Baso% % 0.3 0.4 0.4 Abs Baso <0.11 k/uL <0.03 0.03 0.04 Immature Gran % % 1.3 IMMATURE GRANS (ABS) <0.10 k/uL 0.13 (H) NRBC /100 WBC 0.0 Absolute nRBC <0.01 k/uL <0.01 <0.01 <0.01 DTYPE Auto Nucleated Reds 0 /100 WBC 0.0 0.0 Diff Type Auto Diff Auto Diff Protein, Total 6.3 - 8.0 g/dL 6.8 6.5 Albumin 3.9 - 4.9 g/dL 3.6 (L) 3.6 (L) Calcium 8.5 - 10.2 mg/dL 8.7 8.7 Bilirubin, Total 0.2 - 1.3 mg/dL 0.8 0.7 Alkaline Phosphatase 38 - 113 U/L 68 56 AST 14 - 40 U/L 18 13 (L) Glucose 74 - 99 mg/dL 145 (H) 145 (H) BUN 9 - 24 mg/dL 16 21 Creatinine 0.73 - 1.22 mg/dL 1.08 1.22 Sodium 136 - 144 mmol/L 138 140 Potassium 3.7 - 5.1 mmol/L 4.1 3.9 Chloride 97 - 105 mmol/L 104 104 CO2 22 - 30 mmol/L 23 25 Anion Gap 9 - 18 mmol/L 11 11 ALT 10 - 54 U/L 15 19 eGFR- >60 eGFR-All Other Races . >60 eGFR >=60 mL/min/1.73m 62 Cholesterol, Total <200 mg/dL 113 139 Triglyceride <150 mg/dL 76 101 HDL Cholesterol >39 mg/dL 27 (L) 33 (L) LDL Cholesterol <100 mg/dL 71 86 Non HDL Cholesterol <130 mg/dL 86 106 Fasting Time hrs 12 13 VLDL Cholesterol <30 mg/dL 15 20 TC:HDL Ratio <5.10 4.19 4.21 LDL:HDL Ratio <2.54 2.63 (H) 2.61 (H) Type 2 diabetes mellitus with stage 3a chronic kidney disease, without long-term current use of insulin (hcc) Diabetes Mellitus Type 2: Current medications: Metformin 500 mg twice daily with meals Taking medication as directed consistently? Yes Medical Issues / Complications: hypertension, hyperlipidemia and cardiovascular disease Checking blood sugars at home? No. Watching diet? Yes Physical Activity: Sedentary Hypoglycemic spells? No. Any visual disturbance? No. Chest pain? No New numbness, tingling or loss of sensation? Toes are a little tingly Any recent foot problems, sores or rashes? No Any recent or sudden weight loss? No Change in urination? No. occasional nocturia. If yes: Any recent illness? No Last eye exam: up to date. Last foot exam: up to date. HBA1C: Hemoglobin A1C (%) Date Value 01/17/2022 7.8 06/03/2021 7.0 04/29/2020 7.0 ) CMP: Glucose 145 01/17/2022 BUN 21 01/17/2022 Creatinine, Whole Blood (iSTAT) 1.22 01/17/2022 Sodium 140 01/17/2022 Potassium 3.9 01/17/2022 Chloride 104 01/17/2022 CO2 25 01/17/2022 Protein, Total 6.5 01/17/2022 Albumin 3.6 01/17/2022 Calcium 8.7 01/17/2022 Alk Phos Total 56 01/17/2022 Bilirubin, Total 0.7 01/17/2022 AST (SGOT) 13 01/17/2022 ALT (SGPT) 19 01/17/2022 Last 2 Encounter Wt Readings: Date: Wt: 01/20/2022 135.6 kg (299 lb) 11/12/2021 132 kg (291 lb) History of tobacco abuse 17.5 pk years Chronic renal impairment, stage 3a (hcc) Component Latest Ref Rng & Units 09/30/2021 01/17/2022 Protein, Total 6.3 - 8.0 g/dL 6.5 Albumin 3.9 - 4.9 g/dL 3.6 (L) Calcium 8.5 - 10.2 mg/dL 8.5 8.7 Bilirubin, Total 0.2 - 1.3 mg/dL 0.7 Alkaline Phosphatase 38 - 113 U/L 56 AST 14 - 40 U/L 13 (L) ALT 10 - 54 U/L 19 Glucose 74 - 99 mg/dL 126 (H) 145 (H) BUN 9 - 24 mg/dL 14 21 Creatinine 0.73 - 1.22 mg/dL 1.10 1.22 Sodium 136 - 144 mmol/L 140 140 Potassium 3.7 - 5.1 mmol/L 4.6 3.9 Chloride 97 - 105 mmol/L 104 104 CO2 22 - 30 mmol/L 25 25 Anion Gap 9 - 18 mmol/L 11 11 eGFR >=60 mL/min/1.73m 62 eGFR- >60 eGFR-All Other Races . >60 Ulcerative pancolitis without complication (hcc) Interval history update 03/01/2021 colonoscopy 12/26/2016 colonoscopy 10mm polyp, psuedopolyps entire colon. Bx inflammatory polyp . 12/10/[address] Duvla F/U on diffuse pancolitis: a diffuse area of moderately pseudopolypoid mucosa was found in the entire colon: underlying mucosa looks nl without inflammation. Path: 1. Proximal ascending colon, biopsy (A) negative 2. Ascending colon, polypectomy (B) - Inflammatory polyp. 3. Hepatic flexure, polypectomy (C) - Inflammatory polyp. 4. Mid-transverse colon, biopsy (D) Patchy chronic active colitis. -Negative for granulomas or dysplasia. 5. Splenic flexure, biopsy (E) - Colonic mucosa with mild architectural distortion and rare Paneth cells, consistent with prior mucosal injury. - Negative for granulomas or dysplasia. 6. Descending colon, biopsy (F) - Colonic mucosa with rare Paneth cells, consistent with prior mucosal injury. -Negative for granulomas or dysplasia. 7. Sigmoid colon, biopsy (G) - Colonic mucosa with mild architectural Distortion. -Negative for granulomas or dysplasia. 8. Rectum, polypectomy (H) - Colonic mucosa with small lymphoid aggregate, negative for dysplasia. Obesity, class iii, bmi 40-49.9 (morbid obesity) (hcc) 12/31/2014: Colonoscopy Dr. Duval: Impression: Atrophic, erythematous, friable (with contact bleeding), granular and pseudopolypoid mucosa in the entire examined colon. Biopsied. This is a severely inflammed colon. Multiple pseudopolyps. Path: Biopsies of ascending colon, hepatic flexure, transverse colon, splenic flexure, sigmoid colon, rectum: All demonstrating chronic active colitis without evidence of granulomas or dysplasia. Current medications: Mesalamine 800 mg EC tab twice daily Heartburn/GERD: No. Dysphagia: No. Bloating: No. Abdominal pain: No. Bloody or black stools: No. Normal bowel pattern: at least twice a day, sometimes 3 Bowel changes: No. HISTORIES FAMILY HISTORY Problem Relation Age of Onset Colon Cancer Mother 83/heart problems Coronary Artery Disease Father GI Sister crohns disease/sclerodermas other (IBS) Sister polmorplic arthritis Diabetes Sister Diabetes Brother kidney/liver disease/heart problems other (dystonia) Brother Niece/lymes disease PAST MEDICAL HISTORY Diagnosis Date Arrhythmia Atrial flutter by electrocardiogram ([facility]) 12/15/2014 Benign essential tremor 09/20/2012 Blood dyscrasia Blood in stool Centrilobular emphysema ([facility]) 10/06/2015 Chronic renal insufficiency, stage III (moderate) ([facility]) 01/15/2015 Hyperlipidemia 09/26/2012 Hypertension Multiple lung nodules 02/12/2016 SILVER (obstructive sleep apnea) uses CPAP Osteoarthrosis, unspecified whether generalized or localized, other specified sites pilonidal cyst Snoring Type 2 diabetes mellitus with stage 3 chronic kidney disease, without long-term current use of insulin ([facility]) 04/27/2017 Ulcerative colitis, unspecified PAST SURGICAL HISTORY Procedure Laterality Date ARTHROSCOPY KNEE DIAGNOSTIC W/WO SYNOVIAL BX SPX Arthroscopy, knee right ARTHRP ACETBLR/PROX FEM PROSTC AGRFT/ALGRFT 2003 Hip replacement, total right COLONOSCOPY FLX DX W/COLLJ SPEC WHEN PFRMD 12/31/2014 Colonoscopy COLONOSCOPY FLX DX W/COLLJ SPEC WHEN PFRMD 12/10/2015 Colonoscopy COLONOSCOPY FLX DX W/COLLJ SPEC WHEN PFRMD 03/01/2021 COLONOSCOPY W/BIOPSY SINGLE/MULTIPLE 03/06/2009 marcos colitis, worse rectum to 50cm EGD TRANSORAL BIOPSY SINGLE/MULTIPLE 03/06/2009 mild gastitis EXCISION PILONIDAL CYST/SINUS SIMPLE 90s Excision pilonidal cyst HEART SURGERY HX JOINT REPLACEMENT HX LIGJ DIVJ &/EXCJ 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 1 LEG 90s Varicose Vein Surgery TONSILLECTOMY HX TONSILLECTOMY PRIMARY/SECONDARY AGE 13/> 01/2006 T+A VASCULAR SURGERY PROCEDURE Social History Tobacco Use Smoking status: Former Smoker Packs/day: 0.50 Years: 35.00 Pack years: 17.50 Types: Cigarettes Quit date: 06/07/2013 Years since quittin.6 Smokeless tobacco: Never Used Vaping Use Vaping Use: Never used Substance Use Topics Alcohol use: No Alcohol/week: 10.0 standard drinks Comment: ocas Drug use: No ACTIVE PROBLEM LIST Ulcerative Colitis (Hcc) Benign Essential Tremor History of Tobacco Abuse Chronic Renal Insufficiency, Stage Iii (Moderate) (Hcc) Centrilobular Emphysema (Hcc) Non-Small Cell Carcinoma of Lung, Stage 1, Right (Hcc) Hyperlipidemia Ldl Goal <100 Paf (Paroxysmal Atrial Fibrillation) ([facility]) Type 2 Diabetes Mellitus With Stage 3 Chronic Kidney Disease, Without Long-Term Current Use of Insulin ([facility]) Obesity, Class Iii, Bmi 40-49.9 (Morbid Obesity) ([facility]) Tachycardia Shortness of Breath Chronic Diastolic Chf (Congestive Heart Failure) ([facility]) Hypertension, Essential Pfo (Patent Foramen [place]) Silver (Obstructive Sleep Apnea) Encounter for Support and Coordination of Transition of Care Chronic Respiratory Failure With Hypoxia ([facility]) Current Outpatient Medications Medication Sig Dispense Refill mesalamine (ASACOL HD) 800 mg TbEC EC tablet Take 1 tablet by mouth twice daily. 180 tablet 3 metFORMIN (GLUCOPHAGE) 500 mg tablet Take 1 tablet by mouth twice daily with meals. 180 tablet 3 flecainide (TAMBOCOR) 50 mg tablet Take 1 tablet by mouth twice daily. 180 tablet 3 prazosin (MINIPRESS) 2 mg cap Take 1 capsule by mouth twice daily. 180 capsule 3 tiotropium-olodaterol (STIOLTO RESPIMAT) 2.5-2.5 mcg/actuation Inhale 2 Puffs as instructed once daily. furosemide (LASIX) 20 mg tablet Take 20mg daily and additional 20mg as needed for increased shortness or breath and/or legs swelling with weight gain greater than 3lbs 360 tablet 1 fexofenadine (GURVINDER ALLERGY) 180 mg tablet Take 1 tablet by mouth once daily. 90 tablet 1 clotrimazole-betamethasone (LOTRISONE) cream Apply 1 application to affected area twice daily. UNTIL CLEAR FOR UP TO 2-3 WEEKS 30 g 2 potassium chloride ER (K-DUR, KLOR-CON) 20 mEq tablet Take 1 tablet by mouth once daily. 90 tablet 3 atorvastatin (LIPITOR) 40 mg tablet Take 1 tablet by mouth once daily. 90 tablet 3 metoprolol tartrate, short acting, (LOPRESSOR) 100 mg tablet Take 1 tablet by mouth twice daily. 180 tablet 3 nystatin-triamcinolone (MYCOLOG II) cream Apply 1 application to affected area four times daily. 1 Tube 2 warfarin (COUMADIN) 2.5 mg tablet Take 1 tablet by mouth once daily. Or as directed (Patient takingdifferently: Take 2.5 mg by mouth once daily. 2.5 mg daily or as directed. Dr Gilman ) 30 tablet 11 warfarin (COUMADIN) 4 mg tablet Take 1 tablet by mouth once daily. (Patient taking differently: Take 4 mg by mouth once daily. 2.5 mg daily or as directed. Dr Gilman ) 30 tablet 11 Blood Pressure Monitor (BLOOD PRESSURE KIT) kit 1 Units once daily. 1 Kit 0 diphenhydrAMINE (ANTIHISTAMINE) 25 mg tablet Take 1 tablet by mouth every 6 hours as needed. 0 No current facility-administered medications for this visit. HEPATITIS A(1 of 2 - Risk 2-dose series) Never done MENINGOCOCCAL B: Consider based on risk(1 of 4 - Increased Risk Bexsero 2-dose series) Never done SPIROMETRY Never done HEPATITIS B(1 of 3 - Risk 3-dose series) Never done MMR(1 of 2 - Risk 2-dose series) Never done DTAP,TDAP,TD(3 - Td or Tdap) due on 02/16/2019 DEPRESSION SCREENING due on 06/27/2019 ADVANCE DIRECTIVE DISCUSSION Never done REVIEW OF SYSTEMS: PAIN ASSESSMENT: Is the patient having any pain? No 0 on a scale of 0 to 10 General: No weight loss, malaise or fevers. Neuro: notes 30 years of issues with vision sudden flashing of vision like he's blinking fast- lasta couple minutes. Current bilateral cataracts. Respiratory: See HPI Cardiovascular: See HPI Positive for: Afib/Aflutter, CHF, HLD, Hypertension, Hx PFO GI: See HPI : No history of UTI in past 6 weeks. No history of renal failure. Not currently on or requiring dialysis. No history of symptoms or problems. Endocrine: Diabetes Mellitus on oral agent Hematology: No history of bleeding or clotting disorder. Pt is not taking anti- coagulation or platelet medications. No history of hematological symptoms or problems. Oncology: See HPI See HPI Psych: No history of psychiatric symptoms or problems. Musculoskeletal: Negative for joint pain or swelling, back pain or muscle pain. and stiffness. Skin: gets rash under armpits, groin intermittently: diflucan powder vs creams. PHYSICAL EXAM: VITALS: BP 110/62 Pulse 103 Wt 195 lb (88.5kg) SpO2 95% LMP 01/05/2010 General: Alert and oriented Skin: Normal color, no rash, no lesions. HEENT: EOM, pupils equal, round and reactive. Cardiovascular: Normal S1 & S2, no rubs, murmurs or gallops. No JVD. Pulse regular. Lungs: Normal breath sounds, no wheezes or crackles. Abdomen: Soft, non-tender, no rigidity. Extremities: Edema mild Varicose veins Neurological: Normal cognition and motor skills. Gait normal. No weakness or sensory deficit. Pulses: Carotid pulses; left 2+ / right 2+. Femoral pulses; left 2+ / right 2+. Diagnostic tests reviewed for today's visit: Most recent labs as above PREOP ASSESSMENT Patient is optimized for planned procedure Patient has the following medical conditions which may affect shira-operative course CAD - Stable and medication(s) reviewed and on chronic anticoagulation COPD - Moderate and Condition is stable Diabetes - Well controlled Morbid Obesity Renal Failure - Chronic but stable, stage 2 Clinical Risk Factors for Possible Cardiac Complications: History of compensated or prior heart failure from any etiology Patient is scheduled for a low-risk procedure. FUNCTIONAL STATUS: Climb a flight of stairs or walk up a hill (5.50 METs) Functional Class (NYHA): IV ANESTHESIA FINDINGS: Intubation History: No prior intubation Significant Anesthesia Considerations: None Airway Exam: General: Morbid obesity and hx of chest radiation Mallampati Score is CLASS IV ULBT: Class I - Lower incisors can bite the upper lip above the elie line Neck: Normal appearance and function, Distance from hyoid to mentum during neck extension is at least 3 finger breaths Mouth: Large tongue size Dentition: Lower denture, Caps/crowns and Implants Airway History: No abnormal airway history [facility]: Not obtained PLAN CONSULTS: Patient does not require consults for optimization at this time. The Following Tests/Procedures Have Been Initiated: None Instructions Given to Patient: Patient given verbal and written preop instructions and voices comprehension and compliance. Instructed to follow operative instructions per Dr. Marcus. MEDICAL VISIT ASSESSMENT/PLAN: 1. Preoperative clearance - ICD9: V72.84, ICD10: Z01.818 (primary diagnosis) EKG shows no significant change from 09/30/2021, mild axis change - ECG COMPLETE 2. Chronic respiratory failure with hypoxia ([facility]) - ICD9: 518.83, 799.02, ICD10: J96.11 Hypoxia resolved. Overnight pulse oximetry to assess need for nocturnal O2. 3. SILVER (obstructive sleep apnea) - ICD9: 327.23, ICD10: G47.33 compli 4. Asthma with COPD with exacerbation ([facility]) - ICD9: 493.22, ICD10: J44.1, J45.901 COPD stable - Continue current meds - Avoidance of triggers recommended 5. Nodule of upper lobe of right lung - ICD9: 793.11, ICD10: R91.1 6. Non-small cell carcinoma of lung, stage 1, right (HCC) - ICD9: 162.9, ICD10: C34.91 7. Multiple lung nodules - ICD9: 793.19, ICD10: R91.8 Completed RT, following with pulmology 8. PFO (patent foramen ovale) - ICD9: 745.5, ICD10: Q21.1 9. PAF (paroxysmal atrial fibrillation) ([facility]) - ICD9: 427.31, ICD10: I48.0 stable - ECG COMPLETE 10. Acute heart failure with preserved ejection fraction (HFpEF) ([facility]) - ICD9: 428.9, ICD10: I50.31 Stable, resolved - ECG COMPLETE 11. Benign essential tremor - ICD9: 333.1, ICD10: G25.0 stable 12. Hyperlipidemia LDL goal <100 - ICD9: 272.4, ICD10: E78.5 - suboptimal control - Continue current medication. - Encouraged following a low fat, low cholesterol diet. - Discussed the benefits of regular aerobic exercise and weight loss. - Encouraged following a low carbohydrate, healthy oil intake diet. 13. Centrilobular emphysema (HCC) - ICD9: 492.8, ICD10: J43.2 Stable on medication, follows with pulm 14. History of tobacco abuse - ICD9: V15.82, ICD10: Z87.891 As above 15. Chronic renal impairment, stage 3a (HCC) - ICD9: 585.3, ICD10: N18.31 Stage 2 16. Ulcerative pancolitis without complication (HCC) - ICD9: 556.6, ICD10: K51.00 Quiescent: regular surveillance 17. Type 2 diabetes mellitus with stage 3a chronic kidney disease, without long- term current use ofinsulin (HCC) - ICD9: 250.40, 585.3, ICD10: E11.22, N18.31 Controlled. Prediabetic range - Continue current medications 18. Obesity, Class III, BMI 40-49.9 (morbid obesity) (HCC) - ICD9: 278.01, ICD10: E66.01 Stable - Behavioral intervention SIGNATURE: Fransisca Combs PA-C PATIENT NAME: Oliverio Oshea DATE: 02/13/2022 TIME: 5:04 PM PAGER/CONTACT #: [phone] documented in this encounterWilson [facility] History of Present illness Narrative* RT Aleyda(R) - 02/14/2022 8:20 AM EDT Radiology Service Progress Note PATIENT NAME: Oliverio Oshea DATE OF SERVICE: February 14, 2022 TIME: 9:27 AM PATIENT IDENTITY VERIFICATION COMPLETED USING TWO (2) IDENTIFIERS: Name and Date of confirmedby patient verbally. FALL SCREENING: Has the patient had 2 falls in the last year or 1 fall with injury or currently using an Ambulatory Assistive Device (Walker, Cane, Wheelchair, Crutches, etc.)? No PATIENT GENDER DATA: Male PATIENT RELEVANT IMPLANT DATA REVIEWED: Not Applicable RADIOLOGY DEPARTMENT: CT; Exam(s) Completed: Chest PERIPHERAL IV DATA: Not applicable SIGNED BY: RT Elsie(R) February 14, 2022 9:27 AM documented in this encounterWilson [facility] Hospital06-30-2022 Miscellaneous Notes* Telephone Encounter - Yojana Ramirez RN - 02/03/2022 2:19 PM EDT Left detailed message that Rx sent in on voice mail. * Telephone Encounter - Ellen Major MD, MD - 02/03/2022 10:35 AM EDT Please let him know that prescription was sent to his pharmacy. Thanks. * Telephone Encounter - Yojana Ramirez RN - 01/28/2022 9:35 AM EDT Forwarded to Dr Major * Telephone Encounter - Marah Goins Pss - 01/26/2022 3:18 PM EDT Patient requesting ativan for CT scan on 02/14. Confirmed pharmacy on file. Please advise. Patient also aware Dr. Major out of office until 02/01. documented in this encounterWilson [facility] Hospital06-22-2022 Instructions* Patient Instructions* Martha Marcus MD - 01/26/2022 3:11 PM EDT Images from the original note were not included. documented in this encounterWilson [facility] Hospital06-22-2022 History of Present illness Narrative* Martha Marcus MD - 01/26/2022 3:00 PM EDT Assessment and Plan 1. Type 2 diabetes mellitus with both eyes affected by mild nonproliferative retinopathy without macular edema, without long-term current use of insulin (HCC) -mild 2. Combined form of age-related cataract, both eyes Cataract Presurgical Documentation Cataract: Right eye (OD) Patient reported symptoms: Associated symptoms Positive for: Blurred Vision, decreased vision, floaters (longstanding), difficulty with reading, difficulty with watching television, tearing Negative for: Flashes Current Visual Acuity: Right Eye Distance CC 20/40 Left Eye Distance CC 20/40 Best Corrected Vision Right Eye 20/40 Best Corrected Vision Left Eye 20/40 Glare Testing: Right Eye Off 20/40 Right Eye Low 20/40 Right Eye Medium 20/50 Right Eye High 20/60 Left Eye Off 20/40 Left Eye Low 20/40 Left Eye Medium 20/50 Left Eye High 20/60 Visual Function: Oliverio Oshea states that the decline in vision from the cataract impedes the ability to drive and to read as well as other activities of daily living. Oliverio Oshea has confirmed that he is no longer able to function adequately on a day-to-day basis because of his current visual condition. Further, it is my medical opinion that the cataract is the primary cause, or at least a significantly contributory cause of his visual dysfunction. With uncomplicated cataract surgery and lens implantation, it is my expectation that his visual function and quality of life will improve, significantly. The risks, benefits, alternatives, personnel and complications of cataract surgery with lens implantation were discussed with Oliverio Oshea in detail at this visit. The risk discussion included, but was not limited to, possible bleeding, infection, retinal detachment, lens dislocation or swellingin the eye. The rare, but potential possibility of vision loss was discussed. he appeared to understand and asked that I proceed with plans for surgery. Plan: -Continue blood sugar and blood pressure control Cataract: Right eye (OD) Aim -0.25 [id number] power +18.0 Flomax N Diabetes Y Glaucoma N Astigmatism N Refractive surgery N Fuchs N Trypan blue N Malyugin ring N Other N/A -back to Dr. Tellez afterwards for routine care I have confirmed and edited as necessary the relevant ophthalmic history, ROS, and the neuro exam findings as obtained by others. I have seen and examined Oliverio Oshea. I have discussed the case and the management of this patient's care with the Resident/Fellow, if applicable. I also have reviewed and agree with the assessment and plan as stated above and agree withall of its relevant components. Martha Marcus MD January 26, 2022 3:00 PM documented in this encounterWilson [facility] Hospital06-16-2022 History of Present illness Narrative* Fransisca Combs PA-C - 01/20/2022 2:00 PM EDT 76 year old male with c/o here for hospital follow-up. Facility: [facility]. Admission date 01/11/2022 Discharge date 01/13/2022 Prehospitalization details: Patient presented to [facility] emergency room on 01/11/2022 with complaint of generalized weakness, chills, mild shortness of breath with minimal cough. Occasionally bringing up yellow-colored to white sputum, diarrhea prior to coming with Imodium taken at home. Exam: Vital signs 90 [id number]/77-93% RA increased to 98% RA later in the visit. Physical exam essentially normal. WBC 8.7 Hgb 13.2 HCT 40.9 PLT 185, no significant abnormalities in differential. CHEM 9 WNL. Lacticacid normal at 1.8. Total bilirubin was elevated at 1.10. D- dimer elevated at 1.15. UA WNL. Chest x-ray showed no acute abnormality. CTA chest: No acute finding of pulmonary embolism, moderate emphysematous changes noted bilateral lungs in the upper lobes, bibasilar platelike atelectasis versus linear scars. Punctate gallbladder stones, diffuse hepatic steatosis, bilateral perinephric fat stranding uncertain etiology. Multilevel thoracic spondylosis. No evidence of pneumonia. MDM: Decision was made to admit due to patient's O2 sat dropping into the 87% range. Patient was treated with duo nebs and prednisone in the emergency room and then admitted. Hospital course: 1. COPD exacerbation: Patient recovered quickly, did not need oxygen at rest overnight while on CPAP however on discharge day patient did require several liters of O2 to maintain O2 saturations above85% during ambulation. He was discharged with oxygen. Also continue steroids for 7 days and then follow-up here as [place] with pulmonology. Patient was offered to spend another 1 or 2 days if needed but he declined. Other conditions remained stable. Day of discharge labs: WBC 9.8 Hgb 11.5 HCT 35.2 PLT 187 with no significant findings and differential Chemistries also within normal limits except for BUN of 22 with normal creatinine 1.22, glucose of 182. Microbiology demonstrated negative respiratory viral panel including SARS COVID 2 and flu antigens. New medications: Prednisone 20 mg 40 mg p.o. breakfast daily x7 days, #14/0. Otherwise no other changes with medications. Oximeter staying > 95% [facility] O[facility] Fresh Air Thinks may have been lavender spray or use of Right-Guard. Fluid restrictions reduction in leg edema No really wheezing, some cough. Appetite good. No trouble with bowel or bladder. Weak stream with urination. Hemoglobin A1C (%) Date Value 01/17/2022 7.8 06/03/2021 7.0 04/29/2020 7.0 ) CBC Latest Ref Rng & Units 06/03/2021 09/30/2021 01/17/2022 WBC 3.70 - 11.00 k/uL 6.32 7.31 10.15 RBC 4.20 - 6.00 m/uL 4.49 4.65 4.53 HEMOGLOBIN 13.0 - 17.0 g/dL 13.4 13.5 13.3 HEMOGLOBIN, KENYATTA 13.0 - 17.0 g/dL - - - HEMATOCRIT 39.0 - 51.0 % 42.2 43.0 42.6 MCV 80.0 - 100.0 fL 94.0 92.5 94.0 MCV, KENYATTA 80.0 - 100.0 fL - - - MCH 26.0 - 34.0 pg 29.8 29.0 29.4 MCH, KENYATTA 26.0 - 34.0 pg - - - MCHC 30.5 - 36.0 g/dL 31.8 31.4 31.2 MCHC, KENYATTA 30.5 - 36.0 g/dL - - - RDW, KENYATTA 11.5 - 15.0 % - - - RDW-CV 11.5 - 15.0 % 13.7 13.5 14.2 PLATELETS 150 - 400 k/uL 159 179 240 MPV 9.0 - 12.7 fL 10.3 10.3 10.3 MPV, KENYATTA 9.0 - 12.7 fL - - - NEUT%, KENYATTA 39.5 - 74.0 % - - - MONO%, KENYATTA 0.0 - 12.0 % - - - EOS%, KENYATTA 0.0 - 6.6 % - - - BASO% % 0.3 0.4 0.4 BASO%, KENYATTA 0.0 - 1.2 % - - - ABS NEUT (ANC) 1.45 - 7.50 k/uL 4.50 4.99 6.55 ABS NEUT, KENYATTA 1.45 - 7.50 k/uL - - - ABS LYMP, KENYATTA 1.00 - 4.00 k/uL - - - ABS LYMPH 1.00 - 4.00 k/uL 1.14 1.51 2.65 ABS MONO <0.87 k/uL 0.46 0.51 0.60 ABS MONO, KENYATTA 0.00 - 0.86 k/uL - - - ABS EOS, KENYATTA 0.00 - 0.45 k/uL - - - ABS EOSIN <0.46 k/uL 0.18 0.25 0.18 ABS BASO <0.11 k/uL <0.03 0.03 0.04 ABS BASO, KENYATTA 0.00 - 0.10 k/uL - - - NRBC /100 WBC - - 0.0 DIFF TYPE - Auto Diff Auto Diff - Cholesterol, Total (mg/dL) Date Value 01/17/2022 139 06/03/2021 113 04/29/2020 127 HDL Cholesterol (mg/dL) Date Value 01/17/2022 33 06/03/2021 27 04/29/2020 26 LDL Cholesterol (mg/dL) Date Value 01/17/2022 86 06/03/2021 71 04/29/2020 77 Triglyceride (mg/dL) Date Value 01/17/2022 101 06/03/2021 76 04/29/2020 120 HISTORIES FAMILY HISTORY Problem Relation Age of Onset Colon Cancer Mother 83/heart problems Coronary Artery Disease Father GI Sister crohns disease/sclerodermas other (IBS) Sister polmorplic arthritis Diabetes Sister Diabetes Brother kidney/liver disease/heart problems other (dystonia) Brother Niece/lymes disease PAST MEDICAL HISTORY Diagnosis Date Arrhythmia Atrial flutter by electrocardiogram ([facility]) 12/15/2014 Benign essential tremor 09/20/2012 Blood dyscrasia Blood in stool Centrilobular emphysema ([facility]) 10/06/2015 Chronic renal insufficiency, stage III (moderate) ([facility]) 01/15/2015 Hyperlipidemia 09/26/2012 Hypertension Multiple lung nodules 02/12/2016 ISLVER (obstructive sleep apnea) uses CPAP Osteoarthrosis, unspecified whether generalized or localized, other specified sites pilonidal cyst Snoring Type 2 diabetes mellitus with stage 3 chronic kidney disease, without long-term current use of insulin ([facility]) 04/27/2017 Ulcerative colitis, unspecified PAST SURGICAL HISTORY Procedure Laterality Date ARTHROSCOPY KNEE DIAGNOSTIC W/WO SYNOVIAL BX SPX Arthroscopy, knee right ARTHRP ACETBLR/PROX FEM PROSTC AGRFT/ALGRFT 2002 Hip replacement, total right COLONOSCOPY FLX DX W/COLLJ SPEC WHEN PFRMD 12/31/2014 Colonoscopy COLONOSCOPY FLX DX W/COLLJ SPEC WHEN PFRMD 12/10/2015 Colonoscopy COLONOSCOPY FLX DX W/COLLJ SPEC WHEN PFRMD 03/01/2021 COLONOSCOPY W/BIOPSY SINGLE/MULTIPLE 03/06/2009 marcos colitis, worse rectum to 50cm EGD TRANSORAL BIOPSY SINGLE/MULTIPLE 03/06/2009 mild gastitis EXCISION PILONIDAL CYST/SINUS SIMPLE 90s Excision pilonidal cyst HEART SURGERY HX JOINT REPLACEMENT HX LIGJ DIVJ &/EXCJ 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 1 LEG 90s Varicose Vein Surgery TONSILLECTOMY HX TONSILLECTOMY PRIMARY/SECONDARY AGE 13/> 01/2006 T+A VASCULAR SURGERY PROCEDURE Social History Tobacco Use Smoking status: Former Smoker Packs/day: 0.50 Years: 35.00 Pack years: 17.50 Types: Cigarettes Quit date: 06/07/2013 Years since quittin.6 Smokeless tobacco: Never Used Vaping Use Vaping Use: Never used Substance Use Topics Alcohol use: No Alcohol/week: 10.0 standard drinks Comment: ocas Drug use: No ACTIVE PROBLEM LIST Ulcerative Colitis (Hcc) Benign Essential Tremor History of Tobacco Abuse Chronic Renal Insufficiency, Stage Iii (Moderate) (Hcc) Centrilobular Emphysema (Hcc) Non-Small Cell Carcinoma of Lung, Stage 1, Right (Hcc) Hyperlipidemia Ldl Goal <100 Paf (Paroxysmal Atrial Fibrillation) (Hcc) Type 2 Diabetes Mellitus With Stage 3 Chronic Kidney Disease, Without Long-Term Current Use of Insulin (Hcc) Obesity, Class Iii, Bmi 40-49.9 (Morbid Obesity) (Hcc) Tachycardia Shortness of Breath Chronic Diastolic Chf (Congestive Heart Failure) (Hcc) Hypertension, Essential Pfo (Patent Foramen [place]vale) Silver (Obstructive Sleep Apnea) Encounter for Support and Coordination of Transition of Care Current Outpatient Medications Medication Sig Dispense Refill flecainide (TAMBOCOR) 50 mg tablet Take 1 tablet by mouth twice daily. 180 tablet 3 prazosin (MINIPRESS) 2 mg cap Take 1 capsule by mouth twice daily. 180 capsule 3 tiotropium-olodaterol (STIOLTO RESPIMAT) 2.5-2.5 mcg/actuation Inhale 2 Puffs as instructed once daily. furosemide (LASIX) 20 mg tablet Take 20mg daily and additional 20mg as needed for increased shortness or breath and/or legs swelling with weight gain greater than 3lbs 360 tablet 1 fexofenadine (GURVINDER ALLERGY) 180 mg tablet Take 1 tablet by mouth once daily. 90 tablet 1 clotrimazole-betamethasone (LOTRISONE) cream Apply 1 application to affected area twice daily. UNTIL CLEAR FOR UP TO 2-3 WEEKS 30 g 2 potassium chloride ER (K-DUR, KLOR-CON) 20 mEq tablet Take 1 tablet by mouth once daily. 90 tablet 3 atorvastatin (LIPITOR) 40 mg tablet Take 1 tablet by mouth once daily. 90 tablet 3 metoprolol tartrate, short acting, (LOPRESSOR) 100 mg tablet Take 1 tablet by mouth twice daily. 180 tablet 3 metFORMIN (GLUCOPHAGE) 500 mg tablet Take 1 tablet by mouth twice daily with meals. 180 tablet 3 metFORMIN (GLUCOPHAGE) 500 mg tablet Take 1 tablet by mouth twice daily with meals. . 180 tablet 3 mesalamine (ASACOL HD) 800 mg TbEC EC tablet Take 1 tablet by mouth twice daily. 180 tablet 3 nystatin-triamcinolone (MYCOLOG II) cream Apply 1 application to affected area four times daily. 1 Tube 2 warfarin (COUMADIN) 2.5 mg tablet Take 1 tablet by mouth once daily. Or as directed (Patient takingdifferently: Take 2.5 mg by mouth once daily. 2.5 mg daily or as directed. Dr Gilman ) 30 tablet 11 warfarin (COUMADIN) 4 mg tablet Take 1 tablet by mouth once daily. (Patient taking differently: Take 4 mg by mouth once daily. 2.5 mg daily or as directed. Dr Gilman ) 30 tablet 11 Blood Pressure Monitor (BLOOD PRESSURE KIT) kit 1 Units once daily. 1 Kit 0 diphenhydrAMINE (ANTIHISTAMINE) 25 mg tablet Take 1 tablet by mouth every 6 hours as needed. 0 No current facility-administered medications for this visit. HEPATITIS A(1 of 2 - Risk 2-dose series) Never done MENINGOCOCCAL B: Consider based on risk(1 of 4 - Increased Risk Bexsero 2-dose series) Never done SPIROMETRY Never done BP CONTROLLED (<130/80) Never done HEPATITIS B(1 of 3 - Risk 3-dose series) Never done MMR(1 of 2 - Risk 2-dose series) Never done DTAP,TDAP,TD(3 - Td or Tdap) due on 02/16/2019 DEPRESSION SCREENING due on 06/27/2019 ADVANCE DIRECTIVE DISCUSSION Never done EXAM: BP 128/58 Pulse (!) 56 Wt 135.6 kg (299 lb) SpO2 94% BMI 44.15 kg/m Vitals 09/30/2021 10/07/2021 11/12/2021 01/20/2022 WEIGHT in POUNDS 301 lb 294 lb 291 lb 299 lb Pleasant obese adult male here with , currently in no acute distress. Alert and oriented all spheres. Normal affect and cognition. Speech normal. No deficits to learning or comprehension. Skin warm, dry, pink to lips and nailbeds. Normal turgor. Respirations regular and unlabored. HEENT: NCAT. No scleral icterus or conjunctival injection. TM's clear. Nose and oropharynx free from injection or lesion. Oral membranes moist and pink. No cervical lymph nodes. Thyroid non-tender, no masses, or enlargement. Carotids pulses 2+/4+ without bruits. No JVD with HOB at 30 degrees. Chest is normal shape. Lungs are clear to all gale with good air exchange through out, some dry crackles in the bases. HRRR with intermittent irregularity, no significant murmur or gallop. No lifts, heaves, or rubs. Abdomen is obese, soft, nontender, active bowel sounds. Extrem: no clubbing or cyanosis. Edema: 1 to 2+ out of 4 pitting distal lower legs with evidence ofvenous stasis. Extremities are warm and pink with prompt capillary refill. No gross neuro abnormalities. ASSESSMENT/PLAN: 1. Hospital discharge follow-up - ICD9: V67.59, ICD10: Z09 (primary diagnosis) Discharge tasks completed, medications reconciled. 2. Chronic respiratory failure with hypoxia (HCC) - ICD9: 518.83, 799.02, ICD10: J96.11 Stable: Patient is patient to have oxygen discontinued as he feels he does not really need it. Recommend overnight pulse oximetry test to determine need. 3. COPD with exacerbation (HCC) - ICD9: 491.21, ICD10: J44.1 Completed prednisone, is doing well, normal cough and at baseline. 4. Ulcerative pancolitis without complication (HCC) - ICD9: 556.6, ICD10: K51.00 refill - MESALAMINE 800 MG TABLET,DELAYED RELEASE 5. Ulcerative pancolitis with rectal bleeding (HCC) - ICD9: 556.6, ICD10: K51.011 - MESALAMINE 800 MG TABLET,DELAYED RELEASE 6. Cataract of both eyes, unspecified cataract type - ICD9: 366.9, ICD10: H26.9 Patient is noted outside provider Andi De La Rosa identifies bilateral cataracts, patient would like referral to ophthalmology. - CONSULT TO OPHTHALMOLOGY 7. Hypertension, essential - ICD9: 401.9, ICD10: I10 - good control - Continue current medication(s) - Recommended regular aerobic exercise. - Recommend home blood pressure monitoring, to bring results in on next visit - Goal of BP <130/80 8. Chronic diastolic CHF (congestive heart failure) (HCC) - ICD9: 428.32, 428.0, ICD10: I50.32 No evidence of current symptoms, mild chronic leg edema. 9. Type 2 diabetes mellitus with stage 3a chronic kidney disease, without long- term current use of insulin (HCC) - ICD9: 250.40, 585.3, ICD10: E11.22, N18.31 Controlled. - Continue current medications Fransisca Combs PA-C documented [facility] Miscellaneous Notes* Telephone Encounter - Annita Chance MA - 01/17/2022 9:56 AM EDT Order filed by Dr. Boone. Annita Chance MA * Telephone Encounter - Annita Chance MA - 01/17/2022 9:40 AM EDT Lab needs a CBC + Diff lab reordered. Pended please filed. Annita Chance MA documented in this encounterWilson [facility]04-11-[facility]22 Miscellaneous Notes* Telephone Encounter - Patrick Boone MD - 11/15/2021 7:50 PM EDT noted * Telephone Encounter - Aileen Chu Pss - 11/15/2021 10:00 AM EDT Charles Vizzo is calling M Darline Combs PA-C today to request Medication Update on his file; he stated he just requested both of these medications from [facility]. Previously, these were filled by: Dr. Tyler Palacios at [facility]. Per Patient the dosage is the same for both medications. Disp Refills Start End flecainide (TAMBOCOR) 50 mg tablet (Discontinued) 180 tablet 3 11/07/2018 08/02/2021 Sig: Take 1 tablet by mouth twice daily. Sent to pharmacy as: flecainide (TAMBOCOR) 50 mg tablet Class: Normal Route: ORAL Reason for Discontinue: Course of therapy completed Order: [id number] E-Prescribing Status: Receipt confirmed by pharmacy (11/07/2018 12:25 PM EDT) prazosin (MINIPRESS) 2 mg cap 180 capsule 3 11/07/2018 Sig: Take 1 capsule by mouth twice daily. Sent to pharmacy as: prazosin (MINIPRESS) 2 mg cap Class: Normal Route: ORAL Order: [id number] E-Prescribing Status: Receipt confirmed by pharmacy (11/07/2018 12:25 PM EDT) Patient has been identified by name and birthdate. Duration of symptoms: N/A Person calling: self Call patient at: at home [phone] (home) Was an appointment scheduled: No Closing statement: Results or non-symptom based questions: Thank you for calling [facility], your call will be returned within the next business day. Aileen Chu Pss documented in this encounterWilson [facility] Hospital04-08-2022 History of Present illness Narrative* Fransisca Combs PA-C - 11/12/2021 3:20 PM EDT 76 year old male with c/o hospital follow up: Hospital discharge summary: Facility: [facility] Date of admission: 10/31/2021 Date of discharge: Preadmission details: 10/31/2021 patient presented with [facility] emergency department with complaint of shortness of breath, chills, weakness, gradual onset, moderate severity. No measured fever. Patient has history of lung cancer finishing radiation 3 months ago, not currently on chemotherapy. Vital signs 97.8 88-16-130/88-97% room air. Described as well-developed, no acute distress. CBC: WNL, CMP WNL except BUN 21 CRE 1.33 GFR 56, glucose 132, calcium 8.3, albumin 3.0, globulin 4.6. Lactic acid normal 1.9. BNP normal 57.5. Urine within normal limits except 5-10 RBCs, 0-5 WBCs, rare bacteria. Chest x-ray demonstrated mild cardiomegaly with borderline heart failure, no active cardiopulmonarydisease otherwise, mild hyperinflation, benign calcification in the right hilar and right infrahilar lesions, mild demineralization. EKG demonstrated normal sinus rhythm, no acute ST or T wave changes, first-degree AV block. Patient did desaturate to 89% while sitting in bed, placed on nasal cannula 2 L, with movement patient sat dropped again to 87%. Patient discussed with hospitalist and recommendation for observation. Hospital course: Patient admitted to PCU. Assessment and plan: 1. Acute on chronic HFpEF/diastolic heart failure exacerbation factor unclear. Possibly related nonadherence to fluid restrictions. And fluid restriction 1500 cc, daily weights, monitor renal and electrolyte function, troponin and 2D echo ordered. Duplex of lower extremity ordered due to edema right greater than left to rule out DVT. 2. 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 Umu Venegas. No overtevidence of pneumonia or COPD. Blood cultures x2 ordered. Bronchodilator every 6 hours, incentive spirometry and PEP for hygiene. Mention is made of non-small cell lung cancer diagnosed via bronchoscopic wash [facility]. 3. Paroxysmal atrial fibrillation status post ablation, oropharyngeal 3. Continue warfarin, metoprolol and flecainide. 4. Diabetes mellitus type 2 blood sugars, Humalog sliding scale, hold Metformin Dyslipidemia fasting profile in a.m.Atorvastatin 6. Ulcerative colitis on mesalamine 7. Chronic kidney disease stage III AAA, monitor electrolytes, started diuretic IV furosemide 8. Other multiple comorbidities including morbid obesity, cardiac smoker of 30 pack years. 9. DVT prophylaxis: Continue warfarin. 10. Opted for full code. 11/01/2021 ultrasound bilateral lower extremity showed no DVT 11/01/2021: Echocardiogram with contrast: LV size and LV SF WNL, ejection fraction 65%, no diastolicdysfunction, no regional wall motion abnormalities. RV normal size and RV SF. Left and right atriumnormal size, no ASD. Mild focal mitral valve calcification anterior leaflet, mild HI. TV: No stenosis, unable to estimate RSVP. AV: Mild diffuse aortic valve thickening, no stenosis. Pulmonic valve WNL. Normal aortic root, no pericardial effusion. Additional labs: 11/02/2021 WBC 10.3 Hgb 13.4 HCT 40.8 PLT 169. 11/03/2021 sodium 136 CL 103 K4.1 CO2 25.0 BUN 37 CRE 1.43 glucose 269 EGFR 51. 11/01/2021 blood culture x2 no growth left and right hand. Sputum culture expectorated x2: Mixed baljinder, no Streptococcus or Staphylococcus isolated. Urine culture no growth, Legionella and Streptococcus pneumonia antigens negative. SARS Covid and flu test negative. Patient diagnosis was transition from congestive heart failure COPD based on findings. Antibiotics do not seem to be warranted. He improved over 48 hours with initiation of steroids and was weaned from 4 L to 0 over that timeframe. Patient saturations remained above 90% did not qualify for home oxygen. Pulmonology was consulted, recommend initiation of Anoro Ellipta as well as prednisone taper ondischarge. Was found to have right-sided candidiasis in the axilla, initiate nystatin powder with good improvement. Discharged in stable condition. Patient is to follow-up with Dr. Gillespie regards to lung cancer in February and follow-up with me in 2 weeks. Discharge diagnoses: As above. Medication reconciliation: New medications: Nystatin 1000 units/g powder 1 application twice daily 15/0 Anoro Ellipta 62.5 25 MCG per actuation blister device: 1 inhalation every 24 hours, 60/0: unable to insurance coverage. Switched to tiotropium-olodaterol 2.5-2.5mcg Stiolto Prednisone 10 mg daily #30/0 Other medications were continued without change. Follow-up scheduled 01/11/[address] Vikram Easton pulmonology Appointments to be scheduled with Dr. Amezcua [facility] Currently: Breathing a lot better Not coughing up as much sputum. Cough less frequent. This r/t new inhaler Taking Lasix 20mg and 40mg twice a week. Able to laying on 2 pillows Compliant with CPAP: cleaning as instructed. Every once in awhile sees something like saliva in water tray: Fresh Air told to oak once a week invinegar. Appetite is good. Bowels a re good. Urine flow a little light. HISTORIES FAMILY HISTORY Problem Relation Age of Onset Colon Cancer Mother 83/heart problems Coronary Artery Disease Father GI Sister crohns disease/sclerodermas other (IBS) Sister polmorplic arthritis Diabetes Sister Diabetes Brother kidney/liver disease/heart problems other (dystonia) Brother Niece/lymes disease PAST MEDICAL HISTORY Diagnosis Date Arrhythmia Atrial flutter by electrocardiogram ([facility]) 12/15/2014 Benign essential tremor 09/20/2012 Blood dyscrasia Blood in stool Centrilobular emphysema ([facility]) 10/06/2015 Chronic renal insufficiency, stage III (moderate) ([facility]) 01/15/2015 Hyperlipidemia 09/26/2012 Hypertension Multiple lung nodules 02/12/2016 SILVER (obstructive sleep apnea) uses CPAP Osteoarthrosis, unspecified whether generalized or localized, other specified sites pilonidal cyst Snoring Type 2 diabetes mellitus with stage 3 chronic kidney disease, without long-term current use of insulin ([facility]) 04/27/2017 Ulcerative colitis, unspecified PAST SURGICAL HISTORY Procedure Laterality Date ARTHROSCOPY KNEE DIAGNOSTIC W/WO SYNOVIAL BX SPX Arthroscopy, knee right ARTHRP ACETBLR/PROX FEM PROSTC AGRFT/ALGRFT 2002 Hip replacement, total right COLONOSCOPY FLX DX W/COLLJ SPEC WHEN PFRMD 12/31/2014 Colonoscopy COLONOSCOPY FLX DX W/COLLJ SPEC WHEN PFRMD 12/10/2015 Colonoscopy COLONOSCOPY FLX DX W/COLLJ SPEC WHEN PFRMD 03/01/2021 COLONOSCOPY W/BIOPSY SINGLE/MULTIPLE 03/06/2009 marcos colitis, worse rectum to 50cm EGD TRANSORAL BIOPSY SINGLE/MULTIPLE 03/06/2009 mild gastitis EXCISION PILONIDAL CYST/SINUS SIMPLE 90s Excision pilonidal cyst HEART SURGERY HX JOINT REPLACEMENT HX LIGJ DIVJ &/EXCJ 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 1 LEG 90s Varicose Vein Surgery TONSILLECTOMY HX TONSILLECTOMY PRIMARY/SECONDARY AGE 13/> 01/2006 T+A VASCULAR SURGERY PROCEDURE Social History Tobacco Use Smoking status: Former Smoker Packs/day: 0.50 Years: 35.00 Pack years: 17.50 Types: Cigarettes Quit date: 06/07/2013 Years since quittin.4 Smokeless tobacco: Never Used Vaping Use Vaping Use: Never used Substance Use Topics Alcohol use: No Alcohol/week: 10.0 standard drinks Comment: ocas Drug use: No ACTIVE PROBLEM LIST Ulcerative Colitis (Hcc) Benign Essential Tremor History of Tobacco Abuse Chronic Renal Insufficiency, Stage Iii (Moderate) (Hcc) Centrilobular Emphysema (Hcc) Non-Small Cell Carcinoma of Lung, Stage 1, Right (Hcc) Hyperlipidemia Ldl Goal <100 Paf (Paroxysmal Atrial Fibrillation) (Hcc) Type 2 Diabetes Mellitus With Stage 3 Chronic Kidney Disease, Without Long-Term Current Use of Insulin (Hcc) Obesity, Class Iii, Bmi 40-49.9 (Morbid Obesity) (Hcc) Tachycardia Shortness of Breath Chronic Diastolic Chf (Congestive Heart Failure) (Hcc) Hypertension, Essential Pfo (Patent Foramen [place]vale) Silver (Obstructive Sleep Apnea) Encounter for Support and Coordination of Transition of Care Current Outpatient Medications Medication Sig Dispense Refill furosemide (LASIX) 20 mg tablet Take 20mg daily and additional 20mg as needed for increased shortness or breath and/or legs swelling with weight gain greater than 3lbs 360 tablet 1 fexofenadine (GURVINDER ALLERGY) 180 mg tablet Take 1 tablet by mouth once daily. 90 tablet 1 clotrimazole-betamethasone (LOTRISONE) cream Apply 1 application to affected area twice daily. UNTIL CLEAR FOR UP TO 2-3 WEEKS 30 g 2 potassium chloride ER (K-DUR, KLOR-CON) 20 mEq tablet Take 1 tablet by mouth once daily. 90 tablet 3 atorvastatin (LIPITOR) 40 mg tablet Take 1 tablet by mouth once daily. 90 tablet 3 metoprolol tartrate, short acting, (LOPRESSOR) 100 mg tablet Take 1 tablet by mouth twice daily. 180 tablet 3 metFORMIN (GLUCOPHAGE) 500 mg tablet Take 1 tablet by mouth twice daily with meals. 180 tablet 3 metFORMIN (GLUCOPHAGE) 500 mg tablet Take 1 tablet by mouth twice daily with meals. . 180 tablet 3 mesalamine (ASACOL HD) 800 mg TbEC EC tablet Take 1 tablet by mouth twice daily. 180 tablet 3 nystatin-triamcinolone (MYCOLOG II) cream Apply 1 application to affected area four times daily. 1 Tube 2 prazosin (MINIPRESS) 2 mg cap Take 1 capsule by mouth twice daily. 180 capsule 3 warfarin (COUMADIN) 2.5 mg tablet Take 1 tablet by mouth once daily. Or as directed (Patient takingdifferently: Take 2.5 mg by mouth once daily. 2.5 mg daily or as directed. Dr Gilman ) 30 tablet 11 warfarin (COUMADIN) 4 mg tablet Take 1 tablet by mouth once daily. (Patient taking differently: Take 4 mg by mouth once daily. 2.5 mg daily or as directed. Dr Gilman ) 30 tablet 11 Blood Pressure Monitor (BLOOD PRESSURE KIT) kit 1 Units once daily. 1 Kit 0 diphenhydrAMINE (ANTIHISTAMINE) 25 mg tablet Take 1 tablet by mouth every 6 hours as needed. 0 No current facility-administered medications for this visit. SPIROMETRY Never done DTAP,TDAP,TD(3 - Td or Tdap) due on 02/16/2019 DEPRESSION SCREENING due on 06/27/2019 ADVANCE DIRECTIVE DISCUSSION Never done EXAM: BP 130/68 Pulse 80 Wt 132 kg (291 lb) SpO2 93% BMI 42.97 kg/m Weight down 10lbs from 09/30/21 Pleasant well appearing obese adult man in no acute distress. Alert and oriented all spheres. Normal affect and cognition. Speech normal. No deficits to learning or comprehension. Skin warm, dry, pink to lips and nailbeds. Normal turgor. Respirations regular and unlabored. No cough noted. No retractions. HEENT: NCAT. No scleral icterus or conjunctival injection. TM's clear. Nose and oropharynx free from injection or lesion. Somewhat hoarse. Oral membranes moist and pink. No cervical lymph nodes. Thyroid non-tender, no masses, or enlargement. Carotids pulses 2+/4+ without bruits. No JVD with HOB at 30 degrees. Abdomen: active bowel sounds throughout, soft, nontender. No CVAT. Extrem: no clubbing or cyanosis. Edema: none. Extremities are warm and pink with prompt capillary refill. ASSESSMENT/PLAN: 1. Shortness of breath - ICD9: 786.05, ICD10: R06.02 (primary diagnosis) Etiology not completely clear. Pneumonia ruled out, no clear evidence of CHF. Mild desaturation. 2. Asthma with COPD with exacerbation ([facility]) - ICD9: 493.22, ICD10: J44.1, J45.901 Improved on pulmonary toilet and prednisone with addition Stiolto. - Continue current meds - Avoidance of triggers recommended 3. Chronic diastolic CHF (congestive heart failure) ([facility]) - ICD9: 428.32, 428.0, ICD10: I50.32 Stable echo, joelle BNP Adjust diuretics as discussed for work, weight , gain, edema/ SOB 4. PAF (paroxysmal atrial fibrillation) ([facility]) - ICD9: 427.31, ICD10: I48.0 stable 5. Hypertension, essential - ICD9: 401.9, ICD10: I10 - good control - Continue current medication(s) - Recommended regular aerobic exercise. - Recommend home blood pressure monitoring, to bring results in on next visit - Goal of BP <130/80 6. Hyperlipidemia LDL goal <100 - ICD9: 272.4, ICD10: E78.5 - good control - Continue current medication. 7. Type 2 diabetes mellitus with stage 3a chronic kidney disease, without long- term current use of insulin ([facility]) - ICD9: 250.40, 585.3, ICD10: E11.22, N18.31 Controlled. - Continue current medications F/u as scheduled 2 months. Fransisca Combs PA-C documented in this encounterWilson [facility]08-23-[facility]21 History of Present illness Narrative* Trisha Duarte RN - 03/29/2021 11:00 AM EDT Instructions given to pt and with verbalized understanding documented in this [facility] Work Phone: 1(299) 512-388707-26-2021 History of Past illness Narrative* Problem Noted Date Resolved Date Personal history of colonic polyps 03/01/2021 03/01/2021 Chronic ulcerative enterocolitis 12/10/2015 12/10/2015 Chronic anticoagulation 06/19/2015 02/23/20 16 Hemorrhage of gastrointestinal tract, unspecifie d 12/31/2014 12/31/2014 Atrial flutter by electrocardiogram 12/15/2014 02/23/2016 Acute gastritis without mention of hemorrhage 02/23/2016 Blood in stool 03/02/2009 02/23/2016 Diverticulitis of colon (without mention of hemo rrhage) 04/24/2006 02/23/2016 Unspecified constipation 04/05/2006 016 documented as of this encounter (statuses as of 11/12/2021) [facility] of Past illness Narrative* Problem Noted Date Resolved Date Personal history of colonic polyps 03/01/2021 03/01/2021 Chronic ulcerative enterocolitis 12/10/2015 12/10/2015 Chronic anticoagulation 06/19/2015 02/23/20 16 Hemorrhage of gastrointestinal tract, unspecifie d 12/31/2014 12/31/2014 Atrial flutter by electrocardiogram 12/15/2014 02/23/2016 Acute gastritis without mention of hemorrhage 02/23/2016 Blood in stool 03/02/2009 02/23/2016 Diverticulitis of colon (without mention of hemo rrhage) 04/24/2006 02/23/2016 Unspecified constipation 04/05/2006 016 documented as of this encounter (statuses as of 11/15/2021) [facility] of Past illness Narrative* Problem Noted Date Resolved Date Personal history of colonic polyps 03/01/2021 03/01/2021 Chronic ulcerative enterocolitis 12/10/2015 12/10/2015 Chronic anticoagulation 06/19/2015 02/23/20 16 Hemorrhage of gastrointestinal tract, unspecifie d 12/31/2014 12/31/2014 Atrial flutter by electrocardiogram 12/15/2014 02/23/2016 Acute gastritis without mention of hemorrhage 02/23/2016 Blood in stool 03/02/2009 02/23/2016 Diverticulitis of colon (without mention of hemo rrhage) 04/24/2006 02/23/2016 Unspecified constipation 04/05/2006 016 documented as of this encounter (statuses as of 01/17/2022) [facility] of Past illness Narrative* Problem Noted Date Resolved Date Personal history of colonic polyps 03/01/2021 03/01/2021 Chronic ulcerative enterocolitis 12/10/2015 12/10/2015 Chronic anticoagulation 06/19/2015 02/23/20 16 Hemorrhage of gastrointestinal tract, unspecifie d 12/31/2014 12/31/2014 Atrial flutter by electrocardiogram 12/15/2014 02/23/2016 Acute gastritis without mention of hemorrhage 02/23/2016 Blood in stool 03/02/2009 02/23/2016 Diverticulitis of colon (without mention of hemo rrhage) 04/24/2006 02/23/2016 Unspecified constipation 04/05/2006 016 documented as of this encounter (statuses as of 01/20/2022) [facility] of Past illness Narrative* Problem Noted Date Resolved Date Personal history of colonic polyps 03/01/2021 03/01/2021 Chronic ulcerative enterocolitis 12/10/2015 12/10/2015 Chronic anticoagulation 06/19/2015 02/23/20 16 Hemorrhage of gastrointestinal tract, unspecifie d 12/31/2014 12/31/2014 Atrial flutter by electrocardiogram 12/15/2014 02/23/2016 Acute gastritis without mention of hemorrhage 02/23/2016 Blood in stool 03/02/2009 02/23/2016 Diverticulitis of colon (without mention of hemo rrhage) 04/24/2006 02/23/2016 Unspecified constipation 04/05/2006 016 documented as of this encounter (statuses as of 01/26/2022) [facility] of [facility] illness Narrative* Problem Noted Date Resolved Date Personal history of colonic polyps 03/01/2021 03/01/2021 Chronic ulcerative enterocolitis 12/10/2015 12/10/2015 Chronic anticoagulation 06/19/2015 02/23/20 16 Hemorrhage of gastrointestinal tract, unspecifie d 12/31/2014 12/31/2014 Atrial flutter by electrocardiogram 12/15/2014 02/23/2016 Acute gastritis without mention of hemorrhage 02/23/2016 Blood in stool 03/02/2009 02/23/2016 Diverticulitis of colon (without mention of hemo rrhage) 04/24/2006 02/23/2016 Unspecified constipation 04/05/2006 016 documented as of this encounter (statuses as of 02/03/2022) [facility] of Past illness Narrative* Problem Noted Date Resolved Date Personal history of colonic polyps 03/01/2021 03/01/2021 Chronic diastolic CHF (congestive heart failure) 04/01/2019 02/13/2022 Chronic ulcerative enterocolitis 12/10/2015 12/10/2015 Chronic anticoagulation 06/19/2015 02/23/20 16 Hemorrhage of gastrointestinal tract, unspecifie d 12/31/2014 12/31/2014 Atrial flutter by electrocardiogram 12/15/2014 02/23/2016 Acute gastritis without mention of hemorrhage 02/23/2016 Blood in stool 03/02/2009 02/23/2016 Diverticulitis of colon (without mention of hemo rrhage) 04/24/2006 02/23/2016 Unspecified constipation 04/05/2006 016 documented as of this encounter (statuses as of 02/14/2022) [facility] Narrative* Problem Noted Date Resolved Date Personal history of colonic polyps 03/01/2021 03/01/2021 Chronic diastolic CHF (congestive heart failure) 04/01/2019 02/13/2022 Chronic ulcerative enterocolitis 12/10/2015 12/10/2015 Chronic anticoagulation 06/19/2015 02/23/20 16 Hemorrhage of gastrointestinal tract, unspecifie d 12/31/2014 12/31/2014 Atrial flutter by electrocardiogram 12/15/2014 02/23/2016 Acute gastritis without mention of hemorrhage 02/23/2016 Blood in stool 03/02/2009 02/23/2016 Diverticulitis of colon (without mention of hemo rrhage) 04/24/2006 02/23/2016 Unspecified constipation 04/05/2006 016 documented as of this encounter (statuses as of 02/15/2022) [facility] Narrative* Problem Noted Date Resolved Date Personal history of colonic polyps 03/01/2021 03/01/2021 Chronic diastolic CHF (congestive heart failure) 04/01/2019 02/13/2022 Chronic ulcerative enterocolitis 12/10/2015 12/10/2015 Chronic anticoagulation 06/19/2015 02/23/20 16 Hemorrhage of gastrointestinal tract, unspecifie d 12/31/2014 12/31/2014 Atrial flutter by electrocardiogram 12/15/2014 02/23/2016 Acute gastritis without mention of hemorrhage 02/23/2016 Blood in stool 03/02/2009 02/23/2016 Diverticulitis of colon (without mention of hemo rrhage) 04/24/2006 02/23/2016 Unspecified constipation 04/05/2006 016 documented as of this encounter (statuses as of 02/17/2022) [facility] Narrative* Problem Noted Date Resolved Date Personal history of colonic polyps 03/01/2021 03/01/2021 Chronic diastolic CHF (congestive heart failure) 04/01/2019 02/13/2022 Chronic ulcerative enterocolitis 12/10/2015 12/10/2015 Chronic anticoagulation 06/19/2015 02/23/20 16 Hemorrhage of gastrointestinal tract, unspecifie d 12/31/2014 12/31/2014 Atrial flutter by electrocardiogram 12/15/2014 02/23/2016 Acute gastritis without mention of hemorrhage 02/23/2016 Blood in stool 03/02/2009 02/23/2016 Diverticulitis of colon (without mention of hemo rrhage) 04/24/2006 02/23/2016 Unspecified constipation 04/05/2006 016 documented as of this encounter (statuses as of 02/18/2022) [facility] of [facility] illness Narrative* Problem Noted Date Resolved Date Personal history of colonic polyps 03/01/2021 03/01/2021 Chronic diastolic CHF (congestive heart failure) 04/01/2019 02/13/2022 Chronic ulcerative enterocolitis 12/10/2015 12/10/2015 Chronic anticoagulation 06/19/2015 02/23/20 16 Hemorrhage of gastrointestinal tract, unspecifie d 12/31/2014 12/31/2014 Atrial flutter by electrocardiogram 12/15/2014 02/23/2016 Acute gastritis without mention of hemorrhage 02/23/2016 Blood in stool 03/02/2009 02/23/2016 Diverticulitis of colon (without mention of hemo rrhage) 04/24/2006 02/23/2016 Unspecified constipation 04/05/2006 016 documented as of this encounter (statuses as of 02/22/2022) [facility]* Diagnosis Pulmonary nodule Solitary pulmonary nodule [facility] Work Phone: Evaluation note* Diagnosis Pulmonary nodule Solitary pulmonary nodule documented [facility] encounter [facility] Work Phone: evaluation note* Diagnosis Pulmonary nodule Solitary pulmonary nodule [facility] Work Phone: Evaluation note* Diagnosis Shortness of breath- Primary Asthma with COPD with exacerbation (HCC) Chronic obstructive asthma with exacerbation Chronic diastolic CHF (congestive heart failure) (HCC) Chronic diastolic heart failure PAF (paroxysmal atrial fibrillation) (HCC) Atrial fibrillation Hypertension, essential Unspecified essential hypertension Hyperlipidemia LDL goal <100 Other and unspecified hyperlipidemia Type 2 diabetes mellitus with stage 3a chronic kidney disease, without long-term current use of insulin (HCC) documented in this encounter [facility] note* Diagnosis PAF (paroxysmal atrial fibrillation) (HCC)- Primary Atrial fibrillation documented in this encounter [facility] note* Diagnosis Hospital discharge follow-up- Primary Other follow-up examination Chronic respiratory failure with hypoxia (HCC) Chronic respiratory failure COPD with exacerbation (HCC) Obstructive chronic bronchitis with exacerbation Ulcerative pancolitis without complication (HCC) Ulcerative pancolitis with rectal bleeding (HCC) Cataract of both eyes, unspecified cataract type Hypertension, essential Unspecified essential hypertension Chronic diastolic CHF (congestive heart failure) (HCC) Chronic diastolic heart failure Type 2 diabetes mellitus with stage 3a chronic kidney disease, without long-term current use of insulin (HCC) documented in this encounter [facility] note* Diagnosis Type 2 diabetes mellitus with both eyes affected by mild nonproliferative retinopathy without macular edema, without long-term current use of insulin (HCC)- Primary Combined form of age-related cataract, both eyes [facility] Diagnosis Situational anxiety Other anxiety states Combined form of age-related cataract, both eyes [facility] Diagnosis Preoperative clearance- Primary Preoperative examination, unspecified Chronic respiratory failure with hypoxia (HCC) Chronic respiratory failure SILVER (obstructive sleep apnea) Obstructive sleep apnea (adult) (pediatric) Asthma with COPD with exacerbation (HCC) Chronic obstructive asthma with exacerbation Nodule of upper lobe of right lung Non-small cell carcinoma of lung, stage 1, right (HCC) Multiple lung nodules Other nonspecific abnormal finding of lung field PFO (patent foramen ovale) Ostium secundum type atrial septal defect PAF (paroxysmal atrial fibrillation) (HCC) Atrial fibrillation Acute heart failure with preserved ejection fraction (HFpEF) (HCC) Benign essential tremor Essential and other specified forms of tremor Hyperlipidemia LDL goal <100 Other and unspecified hyperlipidemia Centrilobular emphysema (HCC) Other emphysema History of tobacco abuse Personal history of tobacco use, presenting hazards to health Chronic renal impairment, stage 3a (HCC) Ulcerative pancolitis without complication (HCC) Type 2 diabetes mellitus with stage 3a chronic kidney disease, without long-term current use of insulin (HCC) Obesity, Class III, BMI 40-49.9 (morbid obesity) (HCC) Morbid obesity Combined form of age-related cataract, both eyes [facility] Diagnosis Neoplasm of lung Neoplasm of unspecified nature of respiratory system Combined form of age-related cataract, both eyes [facility] Diagnosis Radiotherapy follow-up- Primary Radiotherapy follow-up examination Neoplasm of lung Neoplasm of unspecified nature of respiratory system Primary cancer of right upper lobe of lung (HCC) Combined form of age-related cataract, both eyes [facility] Diagnosis Combined form of age-related cataract, both eyes [facility]* Diagnosis Pseudophakia- Primary Lens replaced by other means [facility]* Diagnosis COVID-19- Primary [facility]* Diagnosis Gross hematuria- Primary [facility]* Diagnosis Gross hematuria- Primary Phimosis Redundant prepuce and phimosis Benign prostatic hyperplasia without lower urinary tract symptoms [facility] Diagnosis Gross hematuria- Primary Non-small cell carcinoma of lung, stage 1, right (HCC) [facility] Diagnosis Rectal bleed- Primary Hemorrhage of rectum and anus Chronic anticoagulation Long-term (current) use of 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s [facility] Diagnosis Elevated serum creatinine- Primary Other nonspecific findings on examination of blood Hyperlipidemia LDL goal <100 Other and unspecified hyperlipidemia [facility] Diagnosis Neoplasm of lung- Primary Neoplasm of unspecified nature of respiratory system Radiotherapy follow-up Radiotherapy follow-up examination [facility] Diagnosis Low blood potassium Hypopotassemia [facility] Diagnosis Pain and swelling of right lower leg- Primary Pain of right lower leg Pain in limb Swelling of limb Chronic heart failure with preserved ejection fraction (HCC) Chronic renal impairment, stage 3a (HCC) Hyperlipidemia LDL goal <100 Other and unspecified hyperlipidemia Hypertension, essential Unspecified essential hypertension Type 2 diabetes mellitus with stage 3a chronic kidney disease, without long-term current use of insulin (HCC) [facility] Diagnosis Radiotherapy follow-up- Primary Radiotherapy follow-up examination Malignant neoplasm of unspecified part of unspecified bronchus or lung (HCC) Primary cancer of right upper lobe of lung (HCC) [facility]* Diagnosis Non-small cell carcinoma of lung, stage 1, right (HCC)- Primary Chronic respiratory failure with hypoxia (HCC) Chronic respiratory failure Centrilobular emphysema (HCC) Other emphysema Nocturnal oxygen desaturation Idiopathic sleep related nonobstructive alveolar hypoventilation SILVER (obstructive sleep apnea) Obstructive sleep apnea (adult) (pediatric) Monoclonal gammopathy Monoclonal paraproteinemia Chronic heart failure with preserved ejection fraction (HCC) PFO (patent foramen ovale) Ostium secundum type atrial septal defect Tachycardia Tachycardia, unspecified PAF (paroxysmal atrial fibrillation) (HCC) Atrial fibrillation Hypertension, essential Unspecified essential hypertension Hyperlipidemia LDL goal <100 Other and unspecified hyperlipidemia Class 3 severe obesity due to excess calories with serious comorbidity and body mass index (BMI) of 40.0 to 44.9 in adult (HCC) Type 2 diabetes mellitus with stage 3a chronic kidney disease, without long-term current use of insulin (HCC) Chronic renal impairment, stage 3a (HCC) Ulcerative pancolitis without complication (HCC) Benign essential tremor Essential and other specified forms of tremor Ulcerative pancolitis with rectal bleeding (HCC) MGUS (monoclonal gammopathy of unknown significance) Monoclonal paraproteinemia [facility]* Diagnosis Type 2 diabetes mellitus without retinopathy (HCC)- Primary Type II or unspecified type diabetes mellitus without mention of complication, not stated as uncontrolled Pseudophakia Lens replaced by other means Combined forms of age-related cataract of left eye Other and combined forms of senile cataract [facility]* Diagnosis Gross hematuria [facility]* Diagnosis Neoplasm of lung Neoplasm of unspecified nature of respiratory system [facility]* Diagnosis Malignant neoplasm of unspecified part of unspecified bronchus or lung (HCC) [facility] Diagnosis Neoplasm of lung Neoplasm of unspecified nature of respiratory system [facility]* Diagnosis 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 Avoid making critical decisions, signing legal documents, or performing any activity that requires alertness for the rest of the day. You may experience a sore throat, hoarse voice, or dry mouth after your procedure. You may use an [id number] chloraseptic spray, gargle with warm salt water, or use throat lozenges. Notify yourphysician if this feeling lasts more than 48 hours. You may spit up a small amount of blood or have bloody saliva. This is normal. Rest the remainder of the day. You may resume normal activity tomorrow. You may return to work tomorrow. DIET: You may resume a normal diet 1-2 hours after your procedure, unless notified or recommended by yourphysician. Start with sips of water and progress as tolerated. If it is painful to swallow, start with cold drinks or flavored popsicles. Advance to soft foods astolerated. Drink plenty of fluids for the first 24 hours (unless your physician states otherwise). MEDICATION: Resume your normal home medications unless notified or recommended by your physician. Restart Coumadin tomorrow 03/30/21 FOLLOW-UP APPOINTMENT: Follow up with or call your physician as needed. When to call for help: Call your doctor IMMEDIATELY or seek medical care if you experience: Severe pain or vomiting Coughing up more than a teaspoon of blood Bubbles under the skin around your neck that crack and pop when you press on them A fever greater than 101 degrees Redness or swelling of arm from the IV site for more than 48 hours Sudden onset of chest pain or shortness of breath If you become extremely dizzy or pass out (lose consciousness) IF YOU ARE UNABLE TO REACH YOUR PHYSICIAN GO TO NEAREST EMERGENCY DEPARTMENT [facility] (narrative)* Outpatient Procedure (Routine) - Closed Specialty Diagnoses / Procedures Referred By Gissell duran [facility] Diagnoses Preoperative clearance PAF (paroxysmal atrial fibrillation) (HCC) Acute heart failure with preserved ejection fraction (HFpEF) (HCC) Procedures ECG COMPLETE ECG ROUTINE ECG W/LEAST 12 LDS W/I&R Fransisca Combs PA-C [address] [place] [address] [facility] [address] [place] [id number] Referral ID Status Reason Start Date Expiration Date V isits Requested Visits Authorized [id number] Closed Auto-Generate d Referral 02/14/2022 02/14/2023 1 1 [facility] for referral (narrative)* Diagnostic Procedure Only (Urgent) - Pending Review Specialty Diagnoses / Procedures Referred By Gissell duran Referred To Contact US IMAGING Diagnoses Pain and swelling of right lower leg Pain of right lower leg Swelling of limb Procedures US DVT LOWER RIGHT DUP-SCAN XTR VEINS UNILATERAL/LIMITED STUDY Fransisca Combs PA-C [address] [place] [address] Us Imaging Referral ID Status Reason Start Date Expiration Date Visits Requested Visits Authorized [id number] Pending Review Auto-Generat ed Referral 11/01/2022 12/01/2023 1 1 * Outpatient Procedure (Routine) - Closed Specialty Diagnoses / Procedures Referred By Gissell udran Ref[facility] Diagnoses Pain and swelling of right lower leg Pain of right lower leg Swelling of limb Procedures US LEG VEIN DVT UNL VAS LAB DUP-SCAN XTR VEINS UNILATERAL/LIMITED STUDY Fransisca Combs PA-C [address] [place] [address] [facility] [address] [place] [address] Referral ID Status Reason Start Date Expiration Date V isits Requested Visits Authorized [id number] Closed Auto-Generate d Referral 11/01/2022 11/01/2023 1 1 [facility] for visit Narrative* Auth/Cert Specialty Diagnoses / Procedures Referred By Gissell duran Referred To Contact Diagnoses Combined form of age-related cataract, both eyes Procedures XCAPSL CTRC RMVL INSJ IO LENS PROSTH W/O ECP OPH BMTRY PRTL COHER INTRFRMTRY IO LENS PWR CAROLYNN PHACOEMULSIFICATION CATARACT IMPLANT INTRAOCULAR LENS W/O ENDOSCOPIC CYCLOPHOTOCOAGULATION OPHTHALMIC BIOMETRY BY PARTIAL COHERENCE INTERFEROMETRY W/INTRAOCULAR LENS POWER CALCULATION [facility] [address] [place] [address] Referral ID Status Reason Start Date Expiration Date Visits Re quested Visits Authorized [id number] 1 1 [facility] Summary Purpose Family History No Family History Records FoundNo Family History Records FoundNo Family History Records FoundNo Family History Records FoundNo Family History Records FoundNo Family History Records Found Advance Directives Documents on File Type Date Recorded Patient 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 Agent Expl 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 ACP-Advance Directive 03/25/2021 12:00 AM Latest Code Status on File Code Status Date Activated Date Inactivated Comments Full Code 03/29/2021 9:51 AM Documents on File Type Date Recorded Patient 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 Agent Expl anation Advance Directive(s) 02/17/2021 12:41 PM Advance Directive(s) 12/26/2016 6:24 AM Advance Directive(s) 12/10/2015 1:20 PM Advance Directive(s) 11/26/2015 3:54 PM Advance Directive(s) 02/25/2015 4:19 PM Documents on File Type Date Recorded Patient 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 Agent Expl anation Advance Directive(s) 02/17/2021 12:41 PM Advance Directive(s) 12/26/2016 6:24 AM Advance Directive(s) 12/10/2015 1:20 PM Advance Directive(s) 11/26/2015 3:54 PM Advance Directive(s) 02/25/2015 4:19 PM Documents on File Type Date Recorded Patient 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 Agent Expl anation Advance Directive(s) 02/25/2015 4:19 PM Documents on File Type Date Recorded Patient 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 Agent Expl anation Advance Directive(s) 02/25/2015 4:19 PM Reason for Referral Status Reason Specialty Diagnoses / Procedures Referre d By Contact Referred To Contact Open Diagnoses Pulmonary nodule Procedures Spirometry W/ Diffusion Capacity Deena Camara MD [address] [place] [id number] Specialty Diagnoses / Procedures Referred By Contac t Referred To Contact Ophthalmology Diagnoses Cataract of both eyes, unspecified cataract type Procedures CONSULT TO OPHTHALMOLOGY OFFICE/OUTPATIENT [facility] 60-74 MINUTES Fransisca Combs PA-C [address] [place] [address] Referral ID Status Reason Start Date Expiration Date Visits Requested Visits Authorized [id number] Pending Review PCP Requested Referral 01/20/2022 01/20/2023 1 1 Specialty Diagnoses / Procedures Referred By Contac t Referred To Contact CT IMAGING Diagnoses Neoplasm of lung Procedures CT CHEST WO IVCON CAT SCAN OF CHEST Ellen Major MD, [address] [facility] [place] [address] Ct Imaging Referral ID Status Reason Start Date Expiration Date Visits Requested Visits Authorized [id number] Authorized Auto-Generat ed Referral 02/15/2022 09/17/2022 10 10 Specialty Diagnoses / Procedures Referred By Contac t Referred To Contact CT IMAGING Diagnoses Neoplasm of lung Procedures CT CHEST WO IVCON DIAGNOSTIC COMPUTED TOMOGRAPHY THORAX W/O CNTRST Ellen Major MD, [address] [place] [address] Ct Imaging Referral ID Status Reason Start Date Expiration Date Visits Requested Visits Authorized [id number] Authorized Auto-Generat ed Referral 08/19/2022 03/18/2023 1 1 Specialty Diagnoses / Procedures Referred By Contac t Referred To Contact Urology Diagnoses Gross hematuria Procedures CONSULT TO UROLOGY OFFICE/OUTPATIENT [facility] 60-74 MINUTES Fahad [place] APRN.ALLERGY SPECIALIST [address] [place] [address] Referral ID Status Reason Start Date Expiration Date Visits Requested Visits Authorized [id number] Pending Review PCP Requested Referral 2 05/16/2023 1 1 Specialty Diagnoses / Procedures Referred By Contac t Referred To Contact Diagnoses Gross hematuria Viktoria Azul PA-C [address] [place] [address] Referral ID Status Reason Start Date Expiration Date V isits Requested Visits Authorized [id number] Pending Review 1 1 Specialty Diagnoses / Procedures Referred By Contac t Referred To Contact CT IMAGING Diagnoses Gross hematuria Procedures CT UROGRAM WO/W IVCON CT ABD & PELVIS W/O CONTRST 1+ BODY REGNS Viktoria Azul PA-C [address] [place] [address] Ct Imaging Referral ID Status Reason Start Date Expiration Date Visits Requested Visits Authorized [id number] Additional Clinical Info Needed Auto-Generat ed Referral 2 06/19/2023 1 1 Referral ID Status Reason Start Date Expiration Date Visits Requested Visits Authorized [id number] Authorized Auto-Generat ed Referral 11/24/2022 09/25/2023 1 1 Specialty Diagnoses / Procedures Referred By Contac t Referred To Contact CT IMAGING Diagnoses Malignant neoplasm of unspecified part of unspecified bronchus or lung (HCC) Procedures CT CHEST WO IVCON DIAGNOSTIC COMPUTED TOMOGRAPHY THORAX W/O Ellen Rae MD, [address] [facility] [place] [address] Ct Imaging Referral ID Status Reason Start Date Expiration Date Visits Requested Visits Authorized [id number] Authorized Auto-Generat ed Referral 12/28/2023 1 1 Specialty Diagnoses / Procedures Referred By Contac t Referred To Contact CT IMAGING Diagnoses Neoplasm of lung Procedures CT CHEST WO IVCON DIAGNOSTIC COMPUTED TOMOGRAPHY THORAX W/O Ellen Rae MD, [address] [place] [address] Ct Imaging [id number] Referral ID Status Reason Start Date Expiration Date V isits Requested Visits Authorized [id number] Closed Auto-Generate d Referral 08/19/2022 03/18/2023 1 1 Specialty Diagnoses / Procedures Referred By Contac t Referred To Contact CT IMAGING Diagnoses Malignant neoplasm of unspecified part of unspecified bronchus or lung (HCC) Procedures CT CHEST WO IVCON DIAGNOSTIC COMPUTED TOMOGRAPHY THORAX W/O Ellen Rae MD, [address] [place] [address] Ct Imaging [place] [address] Referral ID Status Reason Start Date Expiration Date V isits Requested Visits Authorized [id number] Closed Auto-Generate d Referral 05/30/2023 12/28/2023 1 1 Referral ID Status Reason Start Date Expiration Date V isits Requested Visits Authorized [id number] Closed Auto-Generate d Referral 11/24/2022 09/25/2023 1 1 Medications Administered Section Inactive Administered Medications - up to 3 most recent administrations Medication Order MAR Action Action Date Dose Rate Site lactated ringers iv infusion 30 mL/hr, INTRAVENOUS, CONTINUOUS, Starting on Mon03/15/22 at 0900, Until Mon03/15/22 at 0834, If blood glucose less than 100 mg/dL, contact anesthesia provider., Preprocedure New Bag/Syringe/Bottle 03/15/2022 8:45 AM EDT 30 mL/hr 30 mL/hr lidocaine (PF) 40 mg/mL (4 %) 1 mL ophthalmic syringe 1 mL, RIGHT EYE, EVERY 5 MINUTES, 3 doses, First dose on Mon03/15/22 at 0800, Last dose on Mon03/15/22 at 0810, 1 drop every 5 minutes x 3 doses Given 03/15/2022 9:00 AM EDT 1 mL Inactive Administered Medications - up to 3 most recent administrations Medication Order MAR Action Action Date Dose Rate Site PHENYLephrine 2.5 % 1 Drop (AK-DILATE, JENNA-SYNEPHRINE) 1 Drop, BOTH EYES, DIRECTED, Starting on Mon02/14/23 at 1430, Until Mon02/15/23 at 0229, Administer for dilation PROTECT FROM LIGHT Given 02/14/2023 2:33 PM EDT 1 Drop proparacaine 0.5 % 1 Drop (ALCAINE) 1 Drop, BOTH EYES, DIRECTED, Starting on Mon02/14/23 at 1430, Until Mon02/15/23 at 0229, Administer for pneumo tonometry, tonopen tonometry, or pachymetry. In the event of a proparacaine shortage, administer tetracaine 0.5% ophthalmic drops 1 drop in the left eye as directed for pneumo tonometry, tonopen tonometry, or pachymetry Given 02/14/2023 2:33 PM EDT 1 Drop tropicamide 1 % 1 Drop (MYDRIACYL) 1 Drop, BOTH EYES, DIRECTED, Starting on Mon02/14/23 at 1430, Until Mon02/15/23 at 0229, Administer for dilation Given 02/14/2023 2:33 PM EDT 1 Drop Additional Source Comments (unrecognized sect ion and content) No Status Records FoundNo Status Records FoundNo Status Records FoundNo Status Records FoundNo Status Records FoundNo Status Records Found INFORMATION SOURCE (unrecogn ized section and content) DATE CREATED AUTHOR AUTHOR'S ORGANIZ ATION 01/25/2018 [facility] DATE CREATED AUTHOR AUTHOR'S ORGANIZ ATION 03/30/2021 [facility] [employer] [facility] [employer] DATE CREATED AUTHOR AUTHOR'S ORGANIZ ATION 04/18/2021 [facility] DATE CREATED AUTHOR AUTHOR'S ORGANIZ ATION 06/09/2022 [facility] DATE CREATED AUTHOR AUTHOR'S ORGANRADHA ATION 06/18/[address] [facility] Source Comments (unrecognize d section and content) In the event this informatio n is protected by the Federal Confidentiality of Alcohol and Drug Abuse Patient Records regulations: The Federal rules restrict any use of the information to criminally investigate or prosecute any alcohol or drug abuse patient.[facility] the event this information is protected by the Federal Confidentiality of Alcohol and Drug Abuse Patient Records regulations: The Federal rules restrict any use of the information to criminally investigate or prosecute any alcohol or drug abuse patient.[facility] the event this information is protected by the Federal Confidentiality of Alcohol and Drug Abuse Patient Records regulations: The Federal rules restrict any use of the information to criminally investigate or prosecute any alcohol or drug abuse patient.[facility] the event this information is protected by the Federal Confidentiality of Alcohol and Drug Abuse Patient Records regulations: The Federal rules restrict any use of the information to criminally investigate or prosecute any alcohol or drug abuse patient.[facility] the event this information is protected by the Federal Confidentiality of Alcohol and Drug Abuse Patient Records regulations: The Federal rules restrict any use of the information to criminally investigate or prosecute any alcohol or drug abuse patient.[facility] the event this information is protected by the Federal Confidentiality of Alcohol and Drug Abuse Patient Records regulations: The Federal rules restrict any use of the information to criminally investigate or prosecute any alcohol or drug abuse patient.[facility] the event this information is protected by the Federal Confidentiality of Alcohol and Drug Abuse Patient Records regulations: The Federal rules restrict any use of the information to criminally investigate or prosecute any alcohol or drug abuse patient.[facility] the event this information is protected by the Federal Confidentiality of Alcohol and Drug Abuse Patient Records regulations: The Federal rules restrict any use of the information to criminally investigate or prosecute any alcohol or drug abuse patient.[facility] the event this information is protected by the Federal Confidentiality of Alcohol and Drug Abuse Patient Records regulations: The Federal rules restrict any use of the information to criminally investigate or prosecute any alcohol or drug abuse patient.[facility] the event this information is protected by the Federal Confidentiality of Alcohol and Drug Abuse Patient Records regulations: The Federal rules restrict any use of the information to criminally investigate or prosecute any alcohol or drug abuse patient.[facility] the event this information is protected by the Federal Confidentiality of Alcohol and Drug Abuse Patient Records regulations: The Federal rules restrict any use of the information to criminally investigate or prosecute any alcohol or drug abuse patient.[facility] Hospital[facility] the event this information is protected by the Federal Confidentiality of Alcohol and Drug Abuse Patient Records regulations: The Federal rules restrict any use of the information to criminally investigate or prosecute any alcohol or drug abuse patient.[facility] HospitalIn the event this information is protected by the Federal Confidentiality of Alcohol and Drug Abuse Patient Records regulations: The Federal rules restrict any use of the information to criminally investigate or prosecute any alcohol or drug abuse patient.[facility] HospitalIn the event this information is protected by the Federal Confidentiality of Alcohol and Drug Abuse Patient Records regulations: The Federal rules restrict any use of the information to criminally investigate or prosecute any alcohol or drug abuse patient.[facility] HospitalIn the event this information is protected by the Federal Confidentiality of Alcohol and Drug Abuse Patient Records regulations: The Federal rules restrict any use of the information to criminally investigate or prosecute any alcohol or drug abuse patient.[facility] HospitalIn the event this information is protected by the Federal Confidentiality of Alcohol and Drug Abuse Patient Records regulations: The Federal rules restrict any use of the information to criminally investigate or prosecute any alcohol or drug abuse patient.[facility] HospitalIn the event this information is protected by the Federal Confidentiality of Alcohol and Drug Abuse Patient Records regulations: The Federal rules restrict any use of the information to criminally investigate or prosecute any alcohol or drug abuse patient.[facility] HospitalIn the event this information is protected by the Federal Confidentiality of Alcohol and Drug Abuse Patient Records regulations: The Federal rules restrict any use of the information to criminally investigate or prosecute any alcohol or drug abuse patient.[facility] HospitalIn the event this information is protected by the Federal Confidentiality of Alcohol and Drug Abuse Patient Records regulations: The Federal rules restrict any use of the information to criminally investigate or prosecute any alcohol or drug abuse patient.[facility] HospitalIn the event this information is protected by the Federal Confidentiality of Alcohol and Drug Abuse Patient Records regulations: The Federal rules restrict any use of the information to criminally investigate or prosecute any alcohol or drug abuse patient.[facility] HospitalIn the event this information is protected by the Federal Confidentiality of Alcohol and Drug Abuse Patient Records regulations: The Federal rules restrict any use of the information to criminally investigate or prosecute any alcohol or drug abuse patient.[facility] HospitalIn the event this information is protected by the Federal Confidentiality of Alcohol and Drug Abuse Patient Records regulations: The Federal rules restrict any use of the information to criminally investigate or prosecute any alcohol or drug abuse patient.[facility] HospitalIn the event this information is protected by the Federal Confidentiality of Alcohol and Drug Abuse Patient Records regulations: The Federal rules restrict any use of the information to criminally investigate or prosecute any alcohol or drug abuse patient.[facility] HospitalIn the event this information is protected by the Federal Confidentiality of Alcohol and Drug Abuse Patient Records regulations: The Federal rules restrict any use of the information to criminally investigate or prosecute any alcohol or drug abuse patient.[facility] HospitalIn the event this information is protected by the Federal Confidentiality of Alcohol and Drug Abuse Patient Records regulations: The Federal rules restrict any use of the information to criminally investigate or prosecute any alcohol or drug abuse patient.[facility] HospitalIn the event this information is protected by the Federal Confidentiality of Alcohol and Drug Abuse Patient Records regulations: The Federal rules restrict any use of the information to criminally investigate or prosecute any alcohol or drug abuse patient.[facility] HospitalIn the event this information is protected by the Federal Confidentiality of Alcohol and Drug Abuse Patient Records regulations: The Federal rules restrict any use of the information to criminally investigate or prosecute any alcohol or drug abuse patient.[facility] HospitalIn the event this information is protected by the Federal Confidentiality of Alcohol and Drug Abuse Patient Records regulations: The Federal rules restrict any use of the information to criminally investigate or prosecute any alcohol or drug abuse patient.[facility] HospitalIn the event this information is protected by the Federal Confidentiality of Alcohol and Drug Abuse Patient Records regulations: The Federal rules restrict any use of the information to criminally investigate or prosecute any alcohol or drug abuse patient.[facility] HospitalIn the event this information is protected by the Federal Confidentiality of Alcohol and Drug Abuse Patient Records regulations: The Federal rules restrict any use of the information to criminally investigate or prosecute any alcohol or drug abuse patient.[facility] HospitalIn the event this information is protected by the Federal Confidentiality of Alcohol and Drug Abuse Patient Records regulations: The Federal rules restrict any use of the information to criminally investigate or prosecute any alcohol or drug abuse patient.[facility] HospitalIn the event this information is protected by the Federal Confidentiality of Alcohol and Drug Abuse Patient Records regulations: The Federal rules restrict any use of the information to criminally investigate or prosecute any alcohol or drug abuse patient.[facility] HospitalIn the event this information is protected by the Federal Confidentiality of Alcohol and Drug Abuse Patient Records regulations: The Federal rules restrict any use of the information to criminally investigate or prosecute any alcohol or drug abuse patient.[facility] HospitalIn the event this information is protected by the Federal Confidentiality of Alcohol and Drug Abuse Patient Records regulations: The Federal rules restrict any use of the information to criminally investigate or prosecute any alcohol or drug abuse patient.[facility] HospitalIn the event this information is protected by the Federal Confidentiality of Alcohol and Drug Abuse Patient Records regulations: The Federal rules restrict any use of the information to criminally investigate or prosecute any alcohol or drug abuse patient.[facility] HospitalIn the event this information is protected by the Federal Confidentiality of Alcohol and Drug Abuse Patient Records regulations: The Federal rules restrict any use of the information to criminally investigate or prosecute any alcohol or drug abuse patient.[facility] HospitalIn the event this information is protected by the Federal Confidentiality of Alcohol and Drug Abuse Patient Records regulations: The Federal rules restrict any use of the information to criminally investigate or prosecute any alcohol or drug abuse patient.[facility] HospitalIn the event this information is protected by the Federal Confidentiality of Alcohol and Drug Abuse Patient Records regulations: The Federal rules restrict any use of the information to criminally investigate or prosecute any alcohol or drug abuse patient.[facility] HospitalIn the event this information is protected by the Federal Confidentiality of Alcohol and Drug Abuse Patient Records regulations: The Federal rules restrict any use of the information to criminally investigate or prosecute any alcohol or drug abuse patient.[facility] HospitalIn the event this information is protected by the Federal Confidentiality of Alcohol and Drug Abuse Patient Records regulations: The Federal rules restrict any use of the information to criminally investigate or prosecute any alcohol or drug abuse patient.[facility] HospitalIn the event this information is protected by the Federal Confidentiality of Alcohol and Drug Abuse Patient Records regulations: The Federal rules restrict any use of the information to criminally investigate or prosecute any alcohol or drug abuse patient.[facility] HospitalIn the event this information is protected by the Federal Confidentiality of Alcohol and Drug Abuse Patient Records regulations: The Federal rules restrict any use of the information to criminally investigate or prosecute any alcohol or drug abuse patient.[facility] HospitalIn the event this information is protected by the Federal Confidentiality of Alcohol and Drug Abuse Patient Records regulations: The Federal rules restrict any use of the information to criminally investigate or prosecute any alcohol or drug abuse patient.[facility] HospitalIn the event this information is protected by the Federal Confidentiality of Alcohol and Drug Abuse Patient Records regulations: The Federal rules restrict any use of the information to criminally investigate or prosecute any alcohol or drug abuse patient.[facility] HospitalIn the event this information is protected by the Federal Confidentiality of Alcohol and Drug Abuse Patient Records regulations: The Federal rules restrict any use of the information to criminally investigate or prosecute any alcohol or drug abuse patient.[facility] HospitalIn the event this information is protected by the Federal Confidentiality of Alcohol and Drug Abuse Patient Records regulations: The Federal rules restrict any use of the information to criminally investigate or prosecute any alcohol or drug abuse patient.[facility] HospitalIn the event this information is protected by the Federal Confidentiality of Alcohol and Drug Abuse Patient Records regulations: The Federal rules restrict any use of the information to criminally investigate or prosecute any alcohol or drug abuse patient.[facility] HospitalIn the event this information is protected by the Federal Confidentiality of Alcohol and Drug Abuse Patient Records regulations: The Federal rules restrict any use of the information to criminally investigate or prosecute any alcohol or drug abuse patient.[facility] HospitalIn the event this information is protected by the Federal Confidentiality of Alcohol and Drug Abuse Patient Records regulations: The Federal rules restrict any use of the information to criminally investigate or prosecute any alcohol or drug abuse patient.[facility] HospitalIn the event this information is protected by the Federal Confidentiality of Alcohol and Drug Abuse Patient Records regulations: The Federal rules restrict any use of the information to criminally investigate or prosecute any alcohol or drug abuse patient.[facility] Reason for Visit (unrecogniz ed section and content) Reason Onset Date Comments Medication Update 11/15/2021 Flecainide and Pro Reason Comments Orders Reason Comments Hospital Follow Up [facility] 01/11-01/13 Reason Comments Decreased Vision Both Eyes Specialty Diagnoses / Procedures Referred By Contac t Referred To Contact Ophthalmology Diagnoses Cataract of both eyes, unspecified cataract type Procedures CONSULT TO OPHTHALMOLOGY OFFICE/OUTPATIENT [facility] 60-74 MINUTES Fransisca Combs PA-C [address] [place] [address] Referral ID Status Reason Start Date Expiration Date Visits Requested Visits Authorized [id number] Pending Review PCP Requested Referral 01/20/2022 01/20/2023 1 1 Reason Comments Medication Question Reason Comments Pre-Op Exam Reason Comments Radiology CT Specialty Diagnoses / Procedures Referred By Contac t Referred To Contact CT IMAGING Diagnoses Neoplasm of lung Procedures CT CHEST WO IVCON CAT SCAN OF CHEST Ellen Major MD, [address] [place] [address] Ct Imaging Referral ID Status Reason Start Date Expiration Date Visits Requested Visits Authorized [id number] Authorized Auto-Generat ed Referral 02/15/2022 09/17/2022 10 10 Reason Comments Future Appointment Reason Comments Recheck Reason Comments Question Release Of Medical Records Reason Comments Post-op (Ophthalmology) Right Eye Reason Onset Date Comments Refill Request 04/25/2022 Reason Onset Date Comments COVID positive 04/25/2022 Reason Comments Patient Question Reason Comments Hospital Follow Up [facility] dc 05/04 dx: covi d Reason Comments Hematuria x 2 days Reason Comments Results Reason Comments New Patient Specialty Diagnoses / Procedures Referred By Contac t Referred To Contact Urology Diagnoses Gross hematuria Procedures CONSULT TO UROLOGY OFFICE/OUTPATIENT [facility] 60-74 MINUTES [place] APRN.ALLERGY SPECIALIST [address] [place] [address] Referral ID Status Reason Start Date Expiration Date Visits Requested Visits Authorized [id number] Pending Review PCP Requested Referral 2 05/16/2023 1 1 Reason Comments Appointment Reason Comments Insurance Authorization Reason Comments Diarrhea With blood in stool x 4 days Reason Onset Date Comments Results Refill Request Refill Request 08/22/2022 Reason Onset Date Comments Refill Request 09/05/2022 Reason Comments Medication Request Reason Onset Date Comments Refill Request 10/10/2022 Reason Onset Date Comments Refill Request 10/26/2022 Reason Comments ankle swollen Reason Comments Ankle Pain Right, swelling Reason Onset Date Comments Refill Request 11/10/2022 Reason Comments Follow Up Right leg Reason Onset Date Comments Refill Request 11/21/2022 Reason Comments Follow Up 3 month Reason Comments Diabetic Eye Exam Type 2 NIDDM Specialty Diagnoses / Procedures Referred By Contac t Referred To Contact CT IMAGING Diagnoses Gross hematuria Procedures CT UROGRAM WO/W IVCON CT ABD & PELVIS W/O CONTRST 1+ BODY Viktoria Saavedra PA-C [address] [place] [address] Ct Imaging [place] [address] Referral ID Status Reason Start Date Expiration Date V isits Requested Visits Authorized [id number] Closed Auto-Generate d Referral 05/20/2022 08/06/2022 99 99 Specialty Diagnoses / Procedures Referred By Contac t Referred To Contact CT IMAGING Diagnoses Neoplasm of lung Procedures CT CHEST WO IVCON DIAGNOSTIC COMPUTED TOMOGRAPHY THORAX W/O Ellen Rae MD, [address] [address] [place] [address] Ct Imaging [place] [address] Referral ID Status Reason Start Date Expiration Date V isits Requested Visits Authorized [id number] Closed Auto-Generate d Referral 08/19/2022 03/18/2023 1 1 Specialty Diagnoses / Procedures Referred By Contac t Referred To Contact CT IMAGING Diagnoses Malignant neoplasm of unspecified part of unspecified bronchus or lung (HCC) Procedures CT CHEST WO IVCON DIAGNOSTIC COMPUTED TOMOGRAPHY THORAX W/O Ellen Rae MD, [address] [address] [facility] [place] [place] [address] Ct Imaging [id number] Referral ID Status Reason Start Date Expiration Date V isits Requested Visits Authorized [id number] Closed Auto-Generate d Referral 05/30/2023 12/28/2023 1 1 Referral ID Status Reason Start Date Expiration Date V isits Requested Visits Authorized [id number] Closed Auto-Generate d Referral 11/24/2022 09/25/2023 1 1 Reason Comments Nail Check Reason Comments Refill Request Care Teams (unrecognized sec tion and content) Floor Sweeper Relationship Specialty Start Date End Date Fransisca Combs PA-C [address] [facility] [place] [address] PCP - General Family Practice 02/01/21 Ellen Major MD, [address] [facility] [place] [address] Physician Radiation Oncology 04/07/21 Floor Sweeper Relationship Specialty Start Date End Date Fransisca Combs PA-C [address] [facility] [place] [address] PCP - General Family Practice 02/01/21 Ellen Major MD, [address] [facility] [place] [address] Physician Radiation Oncology 04/07/21 Floor Sweeper Relationship Specialty Start Date End Date Fransisca Combs PA-C [address] [facility] [place] [address] PCP - General Family Practice 02/01/21 Ellen Major MD, [address] [facility] [place] [address] Physician Radiation Oncology 04/07/21 Floor Sweeper Relationship Specialty Start Date End Date Fransisca Combs PA-C [address] [facility] [place] [address] PCP - General Family Practice 02/01/21 Ellen Major MD, [address] [place] [address] Physician Radiation Oncology 04/07/21 Floor Sweeper Relationship Specialty Start Date End Date Fransisca Combs PA-C [address] [place] [address] PCP - General Family Practice 02/01/21 Ellen Major MD, [address] [place] [address] Physician Radiation Oncology 04/07/21 Floor Sweeper Relationship Specialty Start Date End Date Fransisca Combs PA-C [address] [facility] [place] [address] PCP - General Family Practice 02/01/21 Ellen Major MD, [address] [place] [address] Physician Radiation Oncology 04/07/21 Floor Sweeper Relationship Specialty Start Date End Date Fransisca Combs PA-C [address] [facility] [place] [address] PCP - General Family Practice 02/01/21 Ellen Major MD, [address] [place] [place] [address] Physician Radiation Oncology 04/07/21 Floor Sweeper Relationship Specialty Start Date End Date Fransisca Combs PA-C [address] [facility] [place] [address] PCP - General Family Practice 02/01/21 Ellen Major MD, [address] [place] [address] Physician Radiation Oncology 04/07/21 Floor Sweeper Relationship Specialty Start Date End Date Fransisca Combs PA-C [address] [place] [address] PCP - General Family Practice 02/01/21 Ellen Major MD, [address] [place] [address] Physician Radiation Oncology 04/07/21 Floor Sweeper Relationship Specialty Start Date End Date Fransisca Combs PA-C [address] [place] [address] PCP - General Family Practice 02/01/21 Ellen Major MD, [address] [place] [address] Physician Radiation Oncology 04/07/21 Floor Sweeper Relationship Specialty Start Date End Date Fransisca Combs PA-C [address] [place] [address] PCP - General Family Practice 02/01/21 Ellen Major MD, [address] [address] [place] [address] Physician Radiation Oncology 04/07/21 Floor Sweeper Relationship Specialty Start Date End Date Fransisca Combs PA-C [address] [place] [address] PCP - General Family Medicine 02/01/21 Ellen Major MD, [address] [place] [address] Physician Radiation Oncology 04/07/21 Floor Sweeper Relationship Specialty Start Date End Date Fransisca Combs PA-C [address] [place] [address] PCP - General Family Medicine 02/01/21 Ellen Major MD, [address] [place] [address] Physician Radiation Oncology 04/07/21 Floor Sweeper Relationship Specialty Start Date End Date Fransisca Combs PA-C [address] [facility] [place] [address] PCP - General Family Medicine 02/01/21 Ellen Major MD, [address] [place] [address] Physician Radiation Oncology 04/07/21 Floor Sweeper Relationship Specialty Start Date End Date Fransisca Combs PA-C [address] [facility] [place] [address] PCP - General Family Medicine 02/01/21 Ellen Major MD, [address] [place] [address] Physician Radiation Oncology 04/07/21 Floor Sweeper Relationship Specialty Start Date End Date Fransisca Combs PA-C [address] [facility] [place] [address] PCP - General Family Medicine 02/01/21 Ellen Major MD, [address] [place] [address] Physician Radiation Oncology 04/07/21 Floor Sweeper Relationship Specialty Start Date End Date Fransisca Combs PA-C [address] [facility] [place] [address] PCP - General Family Medicine 02/01/21 Ellen Major MD, [address] [place] [address] Physician Radiation Oncology 04/07/21 Floor Sweeper Relationship Specialty Start Date End Date Fransisca Combs PA-C [address] [facility] [place] [address] PCP - General Family Medicine 02/01/21 Ellen Major MD, [address] [place] [address] Physician Radiation Oncology 04/07/21 Floor Sweeper Relationship Specialty Start Date End Date Fransisca Combs PA-C [address] [place] [address] PCP - General Family Medicine 02/01/21 Ellen Major MD, [address] [place] [address] Physician Radiation Oncology 04/07/21 Floor Sweeper Relationship Specialty Start Date End Date Fransisca Combs PA-C [address] [place] [address] PCP - General Family Medicine 02/01/21 Ellen Major MD, [address] [place] [address] Physician Radiation Oncology 04/07/21 Floor Sweeper Relationship Specialty Start Date End Date Fransisca Combs PA-C [address] [place] [address] PCP - General Family Medicine 02/01/21 Ellen Major MD, [address] [place] [address] Physician Radiation Oncology 04/07/21 Floor Sweeper Relationship Specialty Start Date End Date Fransisca Combs PA-C [address] [place] [address] PCP - General Family Medicine 02/01/21 Ellen Major MD, [address] [place] [address] Physician Radiation Oncology 04/07/21 Floor Sweeper Relationship Specialty Start Date End Date Fransisca Combs PA-C [address] [facility] [place] [address] PCP - General Family Medicine 02/01/21 Ellen Major MD, [address] [place] [address] Physician Radiation Oncology 04/07/21 Floor Sweeper Relationship Specialty Start Date End Date Fransisca Combs PA-C [address] [facility] [place] [address] PCP - General Family Medicine 02/01/21 Ellen Major MD, [address] [place] [address] Physician Radiation Oncology 04/07/21 Floor Sweeper Relationship Specialty Start Date End Date Fransisca Combs PA-C [address] [facility] [place] [address] PCP - General Family Medicine 02/01/21 Ellen Major MD, [address] [place] [address] Physician Radiation Oncology 04/07/21 Floor Sweeper Relationship Specialty Start Date End Date Fransisca Combs PA-C [address] [place] [address] PCP - General Family Medicine 02/01/21 Ellen Major MD, [address] [place] [address] Physician Radiation Oncology 04/07/21 Floor Sweeper Relationship Specialty Start Date End Date Fransisca Combs PA-C [address] [facility] [place] [address] PCP - General Family Medicine 02/01/21 Ellen Major MD, [address] [place] [address] Physician Radiation Oncology 04/07/21 Floor Sweeper Relationship Specialty Start Date End Date Fransisca Combs PA-C [address] [place] [address] PCP - General Family Medicine 02/01/21 Ellen Major MD, [address] [place] [address] Physician Radiation Oncology 04/07/21 Floor Sweeper Relationship Specialty Start Date End Date Fransisca Combs PA-C [address] [place] [address] PCP - General Family Medicine 02/01/21 Ellen Major MD, [address] [place] [address] Physician Radiation Oncology 04/07/21 Floor Sweeper Relationship Specialty Start Date End Date Fransisca Combs PA-C [address] [place] [address] PCP - General Family Medicine 02/01/21 Ellen Major MD, [address] [place] [address] Physician Radiation Oncology 04/07/21 Floor Sweeper Relationship Specialty Start Date End Date Fransisca Combs PA-C [address] [place] [address] PCP - General Family Medicine 02/01/21 Ellen Major MD, [address] [place] [address] Physician Radiation Oncology 04/07/21 Floor Sweeper Relationship Specialty Start Date End Date Fransisca Combs PA-C [address] [place] [address] PCP - General Family Medicine 02/01/21 Ellen Major MD, [address] [place], [place] [address] Physician Radiation Oncology 04/07/21 Floor Sweeper Relationship Specialty Start Date End Date Fransisca Combs PA-C [address] [place], [place] [address]141 PCP - General Family Medicine 02/01/21 Ellen Major MD, [address] [place], [place] [address] Physician Radiation Oncology 04/07/21 Floor Sweeper Relationship Specialty Start Date End Date Fransisca Combs PA-C [address] [place] [address] PCP - General Family Medicine 02/01/21 Ellen Major MD, [address] [place], [place] [address] Physician Radiation Oncology 04/07/21 Scheduled Active and Recently Administ ered Medications (unrecognized section and content) Continuous Medication Order 03/13/2022 03/14/2022 03/15/2022 lactated ringers iv infusion (CANCELED) 30 mL/hr, INTRAVENOUS, CONTINUOUS, Starting on Mon03/15/22 at 0900, Until Mon03/15/22 at 0834, If blood glucose less than 100 mg/dL, contact anesthesia provider., Preprocedure 0845 (New Bag/Syring e/Bottle - Provider: Lucille Floyd, MYRNA) PRN Medication Order 03/13/2022 03/14/2022 03/15/2022 balanced salt ophthalmic solution (BSS) (CANCELED) X (OR/PROCEDURE) PRN, Starting on Mon03/15/22 at 1003, Until Mon03/15/22 at 1010, Intraprocedure 1003 (Given - Provid er: Aaron See, YMRNA) balanced salts (BSS) (CANCELED) X (OR/PROCEDURE) PRN, Starting on Mon03/15/22 at 1003, Until Mon03/15/22 at 1010, Intraprocedure 1003 (Given - Provid er: Martha Marcus MD) cefuroxime intraocular injection 1 mg in NaCl 0.9% 0.1 mL (ZINACEF) (CANCELED) X (OR/PROCEDURE) PRN, Starting on Mon03/15/22 at 1002, Until Mon03/15/22 at 1010, Intraprocedure 1002 (Given - Provid er: Martha Marcus MD - Comment: ic dr marcus aware of reaction) chondroitin-sodium hyaluronate 4-3 % (40-30 mg/mL) intraocular injection (VISCOAT) (CANCELED) X (OR/PROCEDURE) PRN, Starting on Mon03/15/22 at 0948, Until Mon03/15/22 at 1010, Intraprocedure 0948 (Given - Provid er: Martha Marcus MD) lidocaine (PF) 10 mg/mL (1 %) injection (XYLOCAINE) (CANCELED) X (OR/PROCEDURE) PRN, Starting on Mon03/15/22 at 0946, Until Mon03/15/22 at 1010, Intraprocedure 0946 (Given - Provid er: Martha Marcus MD - Comment: right eye topical)0947 (Given - Provider: Martha Marcus MD - Comment: right eye ic) lidocaine 20 mg/mL (2 %) injection (XYLOCAINE) (CANCELED) X (OR/PROCEDURE) PRN, Starting on Mon03/15/22 at 0937, Until Mon03/15/22 at 1010, Intraprocedure 0937 (Given - Provid er: Martha Marcus MD - Comment: peribulbar) umhmnndi-jeqwasoec-fpthkoqvwfsfe 3.5 mg/g-10,000 unit/g-0.1 % (POLYDEX) (CANCELED) X (OR/PROCEDURE) PRN, Starting on Mon03/15/22 at 1003, Until Mon03/15/22 at 1010, Intraprocedure 1003 (Given - Provid er: Martha Marcus MD) PHENYLephrine syringe 1.5% (15 mg/mL) (JENNA-SYNEPHRINE) (CANCELED) X (OR/PROCEDURE) PRN, Starting on Mon03/15/22 at 0946, Until Mon03/15/22 at 1010, Intraprocedure 0946 (Given - Provid er: Martha Marcus MD - Comment: topical)0947 (Given - Provider: Martha Marcus MD - Comment: ic) Povidone-Iodine 5 % ophth soln (BETADINE) (CANCELED) X (OR/PROCEDURE) PRN, Starting on Mon03/15/22 at 0941, Until Mon03/15/22 at 1010, Intraprocedure 0941 (Given - Provid er: Savi Boyd RN) sodium hyaluronate 10 mg/mL injection (PROVISC,HEALON PRO) (CANCELED) X (OR/PROCEDURE) PRN, Starting on Mon03/15/22 at 0948, Until Mon03/15/22 at 1010, Intraprocedure 0948 (Given - Provid er: Martha Marcus MD) FOR RECORDS PERTAINING TO PATIENTS WHO ARE OR HAVE BEEN ENROLLED IN A CHEMICAL DEPENDENCY/SUBSTANCEABUSE PROGRAM, SOME INFORMATION MAY BE OMITTED. This clinical summary was aggregated from multiple sources. Caution should be exercised in using it in the provision of clinical care. This summary normalizes information from multiple sources, and as a consequence, information in this document may materially change the coding, format and clinical context of patient data. In addition, data may be omitted in some cases. CLINICAL DECISIONS SHOULD BE BASED ON THE PRIMARY CLINICAL RECORDS. [facility] [employer] provides no warranty or guarantee of the accuracy or completeness of information in this document.
[2023-08-14] MEDS: 0.9% NaCl IVPB Med Flush (250 mL) 15 ML IV (13:34)
[2023-08-14] MEDS: Vedolizumab 300 MG in 0.9% Normal Saline (250mL Bag) 250 ML 500 MG IV (13:35)
[2023-08-14 14:15] VITALS: BP 115/46; PULSE 54; RESP 18; TEMP 36.9; O2SAT 93
== END 2023-08-14 12:44 | disposition home or self-care (01) ==
LOC: MEDOUTP 12:43
PROVIDERS: PCP Physician Assistant; Referring Provider Internal Medicine Gastroenterology; Visit Provider Internal Medicine Gastroenterology
DX: K51.90 Ulcerative colitis, unspecified, without complications (principal)
CPT/HCPCS: 96365; J7050; A4216; J3380

== ENCOUNTER 2023-09-26 12:09 | Outpatient (RCR) | payer MEDICARE, SELFPAY ==
[2023-09-06 22:58] VITALS: BMI 44.6
[2023-09-12 13:22] LABS: INR Fingerstick 2.2; Prothrombin Time Fingerstick 22.9 SEC (11.7-14.9)
[2023-09-26 12:19] LABS: INR Fingerstick 1.9; Prothrombin Time Fingerstick 20.3 SEC (11.7-14.9)
== END 2023-10-05 18:00 | disposition home or self-care (01) ==
LOC: LAB 12:09
PROVIDERS: PCP Physician Assistant; Referring Provider Nurse Practitioner Family; Visit Provider Nurse Practitioner Family
DX: I48.0 Paroxysmal atrial fibrillation (principal); Z79.01 Long term (current) use of 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s
CPT/HCPCS: 36416; 85610

== ENCOUNTER 2023-10-09 12:36 | Outpatient (CLI) | payer MEDICARE, SELFPAY ==
[2023-10-09] MEDS: 0.9% NaCl Peripheral Flush Adult/Peds IV (12:44)
[2023-10-09 12:45] VITALS: BP 126/49; PULSE 55; RESP 16; TEMP 36.4; O2SAT 93
[2023-10-09 13:39] LABS: Absolute Lymphocyte Count 1.68 X10^3/uL (0.83-4.51); Absolute Neutrophil Count 4.3 X10^3/uL (2.0-7.7); Basophil# 0.02 X10^3/uL; Basophil% 0.3 % (0-1); Eosinophil# 0.13 X10^3/uL; Hematocrit 45.6 % (40-54); Hemoglobin 14.6 g/dL (13.0-16.5); Lymphocyte # 1.68 X10^3/ul (0.83-4.51); Lymphocyte % 25.2 % (19-41); Mean Corpuscular Hgb 30.5 pg (27.0-32.0); Mean Corpuscular Volume 95.4 fL (80-94); Mean Platelet Vol. 9.8 fl (6.2-12.0); Monocyte# 0.48 X10^3/uL; Monocyte% 7.2 % (0-10); NRBC Flagged by Analyzer 0 % (0-5); Neutrophil # 4.32 X10^3/uL (2.7-7.7); Neutrophil % 64.8 % (47-70); Platelet Count 183 K/mm3 (150-450); RBC Distribution Width CV 13.2 % (11.6-14.6); RBC Distribution Width SD 46.2 fl (35.1-43.9); Red Blood Count 4.78 M/mm3 (4.6-6.2); White Blood Count 6.7 K/mm3 (4.4-11.0)
[2023-10-09 13:46] LABS: Erythrocyte Sedimentation Rate 29 mm/hr (0-20)
[2023-10-09 13:50] LABS: ALB/GLOB Ratio 0.9 RATIO (0.9-2.4); AST(SGOT) 18 U/L (15-37); Alanine Aminotransfer ALT/SGPT 27 U/L (16-61); Albumin, Serum 3.4 g/dL (3.2-5.0); Alkaline Phosphatase 71 U/L (45-117); Anion Gap 2 (5-15); BUN 14 mg/dL (7-18); BUN/Creat Ratio 11.2 RATIO (10-20); CRP 9.12 mg/L (0.0-3.0); Calcium,Total 8.7 mg/dL (8.5-10.1); Chloride 110 mmol/L (98-107); Creatinine, Serum 1.25 mg/dL (0.70-1.30); EST Glomerular Filtration Rate 59 mL/min (>60); Est Glom Filt Rate - Afr Amer 72 mL/min (>60); Globulin 3.8 g/dL (2.2-4.2); Glucose 131 mg/dL (74-106); Potassium 4.2 mmol/L (3.5-5.1); Protein, Total 7.2 g/dL (6.4-8.2); Sodium Level 140 mmol/L (136-145)
[2023-10-09] MEDS: Vedolizumab 300 MG in 0.9% Normal Saline (250mL Bag) 250 ML 500 MG IV (13:51)
[2023-10-09 14:28] VITALS: BP 130/46; PULSE 53
== END 2023-10-09 12:37 | disposition home or self-care (01) ==
LOC: MEDOUTP 12:36
PROVIDERS: PCP Physician Assistant; Referring Provider Internal Medicine Gastroenterology; Visit Provider Internal Medicine Gastroenterology
DX: K51.90 Ulcerative colitis, unspecified, without complications (principal); K51.00 Ulcerative (chronic) pancolitis without complications
CPT/HCPCS: 96365; 80053; 85025; 85652; 86140; J7050; A4216; J3380

== ENCOUNTER 2023-11-10 11:50 | Outpatient (RCR) | payer MEDICARE, SELFPAY ==
[2023-10-06 02:49] VITALS: BMI 44.6
[2023-11-10 12:10] LABS: INR Fingerstick 2.9; Prothrombin Time Fingerstick 29.1 SEC (11.7-14.9)
== END 2023-12-05 22:38 | disposition home or self-care (01) ==
LOC: LAB 11:50
PROVIDERS: PCP Physician Assistant; Referring Provider Nurse Practitioner Family; Visit Provider Nurse Practitioner Family
DX: I48.0 Paroxysmal atrial fibrillation (principal); Z79.01 Long term (current) use of 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s
CPT/HCPCS: 36416; 85610

== ENCOUNTER 2023-12-04 12:35 | Outpatient (CLI) | payer MEDICARE, SELFPAY ==
[2023-12-04] MEDS: 0.9% NaCl Peripheral Flush Adult/Peds IV ×2 (13:00→13:30)
[2023-12-04 13:05] VITALS: BP 150/53; PULSE 67; RESP 20; TEMP 36; O2SAT 95; BMI 44.3
[2023-12-04] MEDS: 0.9% NaCl IVPB Med Flush (250 mL) 15 ML IV (13:55)
[2023-12-04] MEDS: Vedolizumab 300 MG in 0.9% Normal Saline (250mL Bag) 250 ML 500 MG IV (13:55)
[2023-12-04 14:39] VITALS: BP 127/51; PULSE 58; RESP 16; TEMP 36.4; O2SAT 93
== END 2023-12-04 12:36 | disposition home or self-care (01) ==
LOC: MEDOUTP 12:35
PROVIDERS: PCP Physician Assistant; Referring Provider Internal Medicine Gastroenterology; Visit Provider Internal Medicine Gastroenterology
DX: K51.90 Ulcerative colitis, unspecified, without complications (principal)
CPT/HCPCS: 96365; J7050; A4216; J3380

== ENCOUNTER 2023-12-20 11:22 | Outpatient (RCR) | payer MEDICARE, SELFPAY ==
[2023-12-05 22:38] VITALS: BMI 44.6
[2023-12-20 11:29] LABS: INR Fingerstick 1.7; Prothrombin Time Fingerstick 17.9 SEC (11.7-14.9)
== END 2023-12-20 18:00 | disposition home or self-care (01) ==
LOC: LAB 11:22
PROVIDERS: PCP Physician Assistant; Referring Provider Nurse Practitioner Family; Visit Provider Nurse Practitioner Family
DX: I48.0 Paroxysmal atrial fibrillation (principal); Z79.01 Long term (current) use of 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s
CPT/HCPCS: 36416; 85610

== ENCOUNTER 2024-01-11 11:57 | Outpatient (RCR) | payer MEDICARE, SELFPAY ==
[2024-01-08 08:54] VITALS: BMI 44.6
[2024-01-11 12:15] LABS: INR Fingerstick 2.9; Prothrombin Time Fingerstick 29.6 SEC (11.7-14.9)
== END 2024-01-11 18:00 | disposition home or self-care (01) ==
LOC: LAB 11:57
PROVIDERS: PCP Physician Assistant; Referring Provider Nurse Practitioner Family; Visit Provider Nurse Practitioner Family
DX: I48.0 Paroxysmal atrial fibrillation (principal); Z79.01 Long term (current) use of 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s
CPT/HCPCS: 36416; 85610

== ENCOUNTER 2024-01-29 12:29 | Outpatient (CLI) | payer MEDICARE, SELFPAY ==
[2024-01-29 13:07] VITALS: BP 109/49; PULSE 62; RESP 18; TEMP 36.6; O2SAT 94; BMI 44.3
[2024-01-29] MEDS: 0.9% NaCl Peripheral Flush Adult/Peds IV (13:27)
[2024-01-29] MEDS: 0.9% NaCl IVPB Med Flush (250 mL) 15 ML IV (13:27)
[2024-01-29] MEDS: Vedolizumab 300 MG in 0.9% Normal Saline (250mL Bag) 250 ML 500 MG IV (13:28)
[2024-01-29 14:07] VITALS: BP 103/49; PULSE 60; RESP 16; TEMP 36.6; O2SAT 93
== END 2024-01-29 23:59 | disposition home or self-care (01) ==
LOC: MEDOUTP 12:30
PROVIDERS: PCP Physician Assistant; Referring Provider Internal Medicine Gastroenterology; Visit Provider Internal Medicine Gastroenterology
DX: K51.90 Ulcerative colitis, unspecified, without complications (principal)
CPT/HCPCS: 96365; J7050; A4216; J3380

== ENCOUNTER 2024-02-20 13:32 | Outpatient (RCR) | payer MEDICARE, SELFPAY ==
[2024-02-05 04:07] VITALS: BMI 44.6
[2024-02-20 13:47] LABS: Prothrombin Time Fingerstick 21.4 SEC (11.7-14.9)
== END 2024-03-06 18:00 | disposition home or self-care (01) ==
LOC: LAB 13:32
PROVIDERS: PCP Physician Assistant; Referring Provider Nurse Practitioner Family; Visit Provider Nurse Practitioner Family
DX: I48.0 Paroxysmal atrial fibrillation (principal); Z79.01 Long term (current) use of 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s
CPT/HCPCS: 36415; 36416; 85610

== ENCOUNTER 2024-03-25 12:40 | Outpatient (CLI) | payer MEDICARE, SELFPAY ==
[2024-03-25 13:19] VITALS: BP 138/50; PULSE 54; RESP 16; TEMP 36.2; O2SAT 93; BMI 44.3
[2024-03-25] MEDS: Vedolizumab 300 MG in 0.9% Normal Saline (250mL Bag) 250 ML 500 MG IV (13:49)
[2024-03-25] MEDS: 0.9% Normal Saline (100mL Bag) 100 ML 15 ML IV (13:49)
[2024-03-25] MEDS: 0.9% NaCl Peripheral Flush Adult/Peds IV (13:50)
[2024-03-25 14:28] VITALS: BP 138/54; PULSE 54
== END 2024-03-25 23:59 | disposition home or self-care (01) ==
LOC: MEDOUTP 12:40
PROVIDERS: PCP Physician Assistant; Referring Provider Internal Medicine Gastroenterology; Visit Provider Internal Medicine Gastroenterology
DX: K51.90 Ulcerative colitis, unspecified, without complications (principal)
CPT/HCPCS: 96365; J7050; A4216; J3380

== ENCOUNTER 2024-03-26 12:57 | Outpatient (RCR) | payer MEDICARE, SELFPAY ==
[2024-03-06 23:02] VITALS: BMI 44.6
[2024-03-26 13:20] LABS: INR Fingerstick 3.2; Prothrombin Time Fingerstick 31.5 SEC (11.7-14.9)
== END 2024-03-26 18:00 | disposition home or self-care (01) ==
LOC: LAB 12:57
PROVIDERS: PCP Physician Assistant; Referring Provider Nurse Practitioner Family; Visit Provider Nurse Practitioner Family
DX: I48.0 Paroxysmal atrial fibrillation (principal); Z79.01 Long term (current) use of 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s
CPT/HCPCS: 36416; 85610

== ENCOUNTER → 2024-03-28 | Outpatient (CLI) | payer MEDICARE, SELFPAY ==
[2024-03-28 11:28] LABS: Erythrocyte Sedimentation Rate 34 mm/hr (0-20)
[2024-03-29 15:08] LABS: Albumin 3.1 g/dL (2.9-4.4); Alpha-1-Globulins 0.2 g/dL (0.0-0.4); Alpha-2-Globulins 0.8 g/dL (0.4-1.0); Gamma Globulin 1.2 g/dL (0.4-1.8); IMMUNOFIXATION RESULT,S Comment: (.); Immunoglobulin A 271 mg/dL (61-437); Immunoglobulin G 1105 mg/dL (603-1613); Immunoglobulin M 308 mg/dL (15-143); PROEL- TOTAL PROTEIN 6.4 g/dL (6.0-8.5)
[2024-04-02 13:09] LABS: Calprotectin, Stool 147 ug/g (0-120)
== END | disposition home or self-care (01) ==
PROVIDERS: PCP Physician Assistant; Referring Provider Internal Medicine Gastroenterology; Visit Provider Internal Medicine Gastroenterology
DX: K51.90 Ulcerative colitis, unspecified, without complications (principal)
CPT/HCPCS: 36415; 82784; 83993; 84165; 85652; 86140; 86334

== ENCOUNTER 2024-04-30 03:02 | Inpatient (IN) | payer MEDICARE, SELFPAY ==
[2024-04-30] VITALS (15 sets, daily range): BP systolic 149–215; BP diastolic 61–93; PULSE 61–96; RESP 16–22; TEMP 36.4–36.9; O2SAT 9–98; BMI 44.4; BMI 44.1
--- NOTE | 2024-04-30 03:14 | CT_ITS ---
STUDY: CT ABDOMEN AND PELVIS WITH CONTRAST - URINARY TRACT REASON FOR EXAM: Male, 79 years old. Abdominal pain RADIATION DOSAGE (If Supplied By Facility): CTDIvol = ( 50.24 ) mGy, DLP = ( 1705.08 ) mGycm TECHNIQUE: IV 100mL Isovue-370 was administered. Transaxial images were obtained from the dome of the diaphragm to the symphysis pubis in the arterial, nephrographic and excretory phases. Multiplanar coronal and sagittal images were reformatted. The protocol utilizes one or more of the following dose reduction techniques: automated exposure control, adjustment of mA and/or kV according to patient size,and/or use of iterative reconstruction technique. COMPARISON: CT Abdomen/PelvisAug 08 2022 3:42pm FINDINGS: LOWER THORAX: Normal. Lung bases are clear. No cardiomegaly. No pericardial effusion. ABDOMEN: LIVER: Mild hepatic steatosis. GALLBLADDER AND BILE DUCTS: Normal. No calcified gallstones. No gallbladder distention or wall edema. No intra- or extrahepatic biliary ductal dilation. PANCREAS: There is fat stranding adjacent to the head of the pancreas suggesting early pancreatitis. SPLEEN: Normal. Normal size without focal cystic or solid mass. ADRENALS: Normal. No nodules. KIDNEYS AND URETERS: Stable nonspecific perinephric fat stranding. Stable cortical thinning within the upper pole of the left kidney and interpolar region of the left kidney. Normal renal size and position. Bilateral renal cysts, the largest measures 2.5 cm. STOMACH AND BOWEL: 3.6 cm duodenal diverticulum. Left colon is contracted which may account for the wall thickening. PELVIS: APPENDIX: Appendix is visualized and normal in appearance. BLADDER: Normal. REPRODUCTIVE: Unremarkable as visualized. No mass. ABDOMEN and PELVIS: INTRAPERITONEAL SPACE: Normal. No ascites or other fluid collection. No free air. BONES/JOINTS: Normal. No suspicious lytic or blastic abnormality. SOFT TISSUES: Urinary bladder is not adequately visualized secondary to significant artifacts from hip prosthesis. Fat-containing umbilical hernia again seen. VASCULATURE: Normal. Abdominal aorta is non-dilated. LYMPH NODES: Normal. No enlarged lymph nodes. CT/Abdomen/Pelvis W IV Cont ONLY IMPRESSION: 1. Possible early pancreatitis. 2. Stable nonspecific perinephric fat stranding. 3. Fat-containing umbilical hernia. 4. Questionable wall thickening of the descending and sigmoid colon. Electronically Signed: Diana Mosqueda MD at 5:13 EDT ,
--- NOTE | 2024-04-30 03:15 | EX.ED.GENINJ ---
HPI History of Present Illness Chief Complaint: Nausea/Vomiting Narrative Narrative: Chief complaint and HPI: Abdominal pain. 79-year-old male with history of atrial fibrillation on warfarin, HLD, COPD, HTN presents for evaluation of abdominal pain with nausea and vomiting. Onset of symptoms this afternoon. Patient states he ate a cheeseburger and fries and since then has had nausea, vomiting, abdominal pain. Unable to tolerate p.o. intake since the afternoon. He denies any fever, chills, shortness of breath, chest pain, diarrhea, constipation, dysuria, hematuria. Denies any history of abdominal surgeries. Denies any blood in his emesis or stool. Denies alcohol abuse. Review of systems: See HPI Medications: As listed on the chart Allergies: As listed on the chart PFSH: Per chart Vital signs: As listed on the chart. Reviewed. Physical exam: Gen: A&O x3, NAD Head: Normocephalic, atraumatic Eyes: No sclera icterus, conjunctiva clear, PERRL ENT: Slightly dry mucous membranes Neck: Trachea midline, No JVD CV: RRR, no murmurs, no peripheral edema Resp: Lungs CTA BL, no w/r/c GI: Large body habitus, abd soft, tender to palpation diffusely-but worse in the epigastrium, protuberant abdomen so tough to assess distention, no r/r/g, reducible hernia that is soft and nontender Musc: Full ROM, no deformity Skin: Warm, dry Neuro: Alert, oriented, grossly intact, sensation intact Psych: Cooperative, appropriate mood and affect [facility] Medical History Wears glasses Wears partial dentures Cancer Arthritis High cholesterol Tremor of both hands Ulcerated colon Shortness of breath on exertion Leg cramps History of stress test History of echocardiogram Cardiology follow-up encounter History of atrial fibrillation Ulcerative colitis COVID-19 Anxiety Diabetes Former smoker CPAP (continuous positive airway pressure) dependence Sleep apnea Congestive heart failure (CHF) Atrial fibrillation 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, adult USP current use of 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 Chronic diastolic heart failure Paroxysmal atrial flutter Type 2 diabetes mellitus SOB (shortness of breath) Home Medications ?Medication ?Instructions ?Recorded ?Last Taken ?Type potassium chloride 20 mEq 20 meq PO DAILY Low potassium 09/27/15 08/08/22 History tablet,extended release(part/cryst) atorvastatin 40 mg tablet 40 mg PO QHS Cholesterol 08/20/16 08/07/22 History metformin 500 mg tablet 500 mg PO BID Diabetes 05/09/19 08/08/22 History metoprolol tartrate 100 mg tablet 100 mg PO BID Afib 02/17/21 02/19/23 History fexofenadine 180 mg tablet 180 mg PO DAILY PRN PRN Allergic 01/11/22 08/08/22 History Symptoms prazosin 2 mg capsule 2 mg PO BID bp 08/08/22 08/08/22 History vedolizumab 300 mg intravenous 300 mg IV .per order 03/21/23 Unknown History solution (Entyvio) empagliflozin 10 mg tablet 10 mg PO DAILY 04/24/23 Unknown History (Jardiance) furosemide 20 mg tablet 20 mg PO DAILY PRN Edema 06/20/23 Unknown History warfarin 2.5 mg tablet 2.5 mg PO .COMPLEX blood thinner 06/20/23 Unknown Rx #90 tabs flecainide 50 mg tablet 50 mg PO Q12H #180 TABLETS 11/16/23 Unknown Rx budesonide 3 mg 9 mg (3 x 3 mg) PO QAM #90 ea 04/11/24 Unknown Rx capsule,delayed,extended release tiotropium 2.5 mcg-olodaterol 2.5 2 puff inhalation DAILY SOB #3 ea 04/22/24 Unknown Rx mcg/actuation mist for inhalation (Stiolto Respimat) azathioprine 75 mg tablet (Azasan) 150 mg PO DAILY 04/30/24 Unknown History Allergy/AdvReac Type Severity Reaction Status Date / Time amlodipine Allergy Severe Rash Verified 04/30/24 03:03 Penicillins Allergy Hives Verified 04/30/24 03:03 azithromycin AdvReac Diarrhea Verified 04/30/24 03:03 celecoxib (From Celebrex) AdvReac RECTAL Verified 04/30/24 03:03 BLEEDING Family History Mother Colon cancer Heart disease Father CAD (coronary artery disease) Sister Diabetes Brother Heart disease Diabetes Surgical History History of intraocular lens implant History of knee surgery History of bilateral hip replacements History of radiofrequency ablation procedure for cardiac arrhythmia (~08/11/15) Social History Smoking Status: Former smoker how long ago did patient quit smokin + years alcohol intake: never substance use type: does not use caffeine: Yes Type: coffee Number of servings: 3 EXAM Physical Exam Const Vital Signs: 04/30/24 03:03 04/30/24 05:03 04/30/24 06:55 Temperature 97.7 F L Temperature Source Oral Pulse Rate 62 69 73 Respiratory Rate 18 17 22 H Blood Pressure 215/78 H 187/72 H Blood Pressure Mean 123 110 Pulse Ox 98 91 84 Oxygen Delivery Method Room Air Room Air Nasal Cannula Oxygen Flow Rate (L/min) 2 04/30/24 07:03 04/30/24 07:04 Temperature 97.6 F L Temperature Source Pulse Rate 74 73 Respiratory Rate 20 H 16 Blood Pressure 173/61 H Blood Pressure Mean 98 Pulse Ox 92 96 Oxygen Delivery Method Nasal Cannula Oxygen Flow Rate (L/min) 4 MDM MDM MDM Narrative Medical decision making narrative: 79-year-old male presents for evaluation of abdominal pain, nausea, vomiting. On chart review patient has ulcerative colitis and is on azathioprine and entyvio. Differential diagnosis includes but is not limited to viral illness, gastroenteritis, pancreatitis, diverticulitis, ulcerative colitis flare. Morphine, NS bolus, Zofran ordered for symptoms. Abdominal pain workup including CT abdomen pelvis. CBC without leukocytosis or anemia. Patient has thrombocytopenia with platelet count of 139. CMP with hyperglycemia, hyperbilirubinemia 2.5, transaminitis with an AST of 266 and an ALT of 226. Alk phos unremarkable. Lipase level 1086. Patient has pancreatitis. UA negative for UTI. CT abdomen pelvis shows possibly pancreatitis. No gallbladder wall distention or edema to suspect cholecystitis. No calcified gallstones. No biliary duct dilation. Stable nonspecific perinephric fat stranding. Fat-containing abdominal hernia. Questionable wall thickening of the descending and sigmoid colon. Patient will require admission for his pancreatitis as well as further workup as I suspect this may have been caused by gallstones given his hyperbilirubinemia and transaminitis. Patient family updated about all the results and the plan. They confirmed understanding. Patient was discussed with Dr. Major who accepted admission Impression: 1. Pancreatitis, possible gallstone pancreatitis 2. Hyperbilirubinemia 3. Transaminitis 4. Thrombocytopenia 5. Hyperglycemia Lab Data Labs: Laboratory Results - last 24 hr 04/30/24 04/30/24 03:30 05:10 WBC 7.9 RBC 5.09 Hgb 15.4 Hct 48.4 MCV 95.1 H MCH 30.3 MCHC 31.8 L RDW Std Deviation 49.6 H RDW Coeff of Jadon 14.2 Plt Count 139 L MPV 9.6 Immature Gran % (Auto) 0.400 Neut % (Auto) 72.7 H Lymph % (Auto) 16.5 L [place] % (Auto) 8.4 Eos % (Auto) 1.6 Baso % (Auto) 0.4 Absolute Neuts (auto) 5.7 Absolute Lymphs (auto) 1.30 Nucleated RBC % 0 Sodium 137 Potassium 3.8 Chloride 106 Carbon Dioxide 24.0 Anion Gap 7 BUN 23 H Creatinine 1.25 Estim Creat Clear Calc 66.81 Est GFR (MDRD) Af Amer 72 Est GFR (MDRD) Non-Af 59 L BUN/Creatinine Ratio 18.4 Glucose 249 H Calcium 8.5 Total Bilirubin 2.50 H AST 266 H ALT 226 H Alkaline Phosphatase 99 Total Protein 7.1 Albumin 3.2 Globulin 3.9 Albumin/Globulin Ratio 0.8 L Lipase 1086 H Urine Color Yellow Urine Clarity Clear Urine pH 6.0 Ur Specific Supply 1.010 Urine Protein 30 H Urine Glucose (UA) 1000 H Urine Ketones Negative Urine Occult Blood 50 H Urine Nitrite Negative Urine Bilirubin Negative Urine Urobilinogen 1 H Ur Leukocyte Esterase Negative Urine RBC 0-5 SEEN Urine WBC 0 SEEN Ur Squamous Epith Cells 0 SEEN Urine Bacteria RARE Urine Mucus 0 SEEN Radiography Diagnostic Testing: Clinical Impression(s) from Imaging Studies Abdomen/Pelvis CT 04/30/24 03:14 IMPRESSION: 1. Possible early pancreatitis. 2. Stable nonspecific perinephric fat stranding. 3. Fat-containing umbilical hernia. 4. Questionable wall thickening of the descending and sigmoid colon. Electronically Signed: Diana Mosqueda MD at 5:13 EDT , Discharge Plan Disposition Disposition: Acute Care Hospital [facility] Discharge Date/Time: 04/30/24 09:18
[2024-04-30] MEDS: 0.9% Normal Saline (1000mL) 1,000 ML 999 ML IV (03:27)
[2024-04-30] MEDS: Ondansetron 4 MG/2 ML Vial IV (03:27)
[2024-04-30] MEDS: Morphine 2 MG/ML Syringe IV ×2 (03:28→10:31)
[2024-04-30 03:34] LABS: Absolute Neutrophil Count 5.7 X10^3/uL (2.0-7.7); Basophil# 0.03 X10^3/uL; Basophil% 0.4 % (0-1); Eosinophil# 0.13 X10^3/uL; Eosinophils% 1.6 % (0-5); Hematocrit 48.4 % (40-54); Hemoglobin 15.4 g/dL (13.0-16.5); Lymphocyte % 16.5 % (19-41); Mean Corp Hgb Conc 31.8 g/dL (32-36); Mean Corpuscular Hgb 30.3 pg (27.0-32.0); Mean Corpuscular Volume 95.1 fL (80-94); Mean Platelet Vol. 9.6 fl (6.2-12.0); Monocyte# 0.66 X10^3/uL; Monocyte% 8.4 % (0-10); NRBC Flagged by Analyzer 0 % (0-5); Neutrophil # 5.73 X10^3/uL (2.7-7.7); Neutrophil % 72.7 % (47-70); Platelet Count 139 K/mm3 (150-450); RBC Distribution Width CV 14.2 % (11.6-14.6); RBC Distribution Width SD 49.6 fl (35.1-43.9); Red Blood Count 5.09 M/mm3 (4.6-6.2); White Blood Count 7.9 K/mm3 (4.4-11.0)
[2024-04-30 04:14] LABS: ALB/GLOB Ratio 0.8 RATIO (0.9-2.4); AST(SGOT) 266 U/L (15-37); Alanine Aminotransfer ALT/SGPT 226 U/L (16-61); Albumin, Serum 3.2 g/dL (3.2-5.0); Alkaline Phosphatase 99 U/L (45-117); Anion Gap 7 (5-15); BUN 23 mg/dL (7-18); BUN/Creat Ratio 18.4 RATIO (10-20); Calcium,Total 8.5 mg/dL (8.5-10.1); Chloride 106 mmol/L (98-107); Creatinine, Serum 1.25 mg/dL (0.70-1.30); EST Glomerular Filtration Rate 59 mL/min (>60); Est Glom Filt Rate - Afr Amer 72 mL/min (>60); Estimated Creatinine Clearance 66.81 ml/min; Globulin 3.9 g/dL (2.2-4.2); Glucose 249 mg/dL (74-106); Potassium 3.8 mmol/L (3.5-5.1); Protein, Total 7.1 g/dL (6.4-8.2); Sodium Level 137 mmol/L (136-145)
[2024-04-30 05:15] LABS: Color, Urine Yellow (Yellow); Glucose, Dipstick 1000 mg/dl (Normal); Ketone-Dipstick Negative (Negative); Leukocyte Esterase-Dipstick Negative /ul (Negative); Mucous, Urine 0 SEEN /hpf (<or=2+); Nitrite-Dipstick Negative (Negative); Occult Blood-Urine 50 /ul (Negative); Protein-Dipstick 30 mg/dl (Negative); Squamous Epithelial Cells - UA 0 SEEN /hpf (0-5); Urine Bilirubin Dipstick Negative (Negative); Urine Clarity Clear (Clear); Urine Urobilinogen 1 mg/dl (Normal); White Blood Cells 0 SEEN /hpf (0-5)
[2024-04-30 05:22] LABS: Bacteria RARE /hpf (None Seen); Red Blood Cells-Urine 0-5 SEEN /hpf (0-5)
[2024-04-30 07:22] LABS: Lipase 1086 U/L (13-75)
[2024-04-30] MEDS: 0.9% Normal Saline (1000mL) 1,000 ML 100 ML IV ×2 (07:59→20:27)
--- NOTE | 2024-04-30 08:06 | PCM.HP.STD ---
HPI - General General Date of Admission: 04/30/24 Date of Service: 04/30/24 Chief Complaint: Abdominal pain/N/V HPI Narrative AVELINA BULL, is a 79 M who presented to the emergency department at [facility] on 04/30/2024 with a chief complaint of abdominal pain, nausea, and vomiting. Patient has never had anything like this previously. He stated he had a cheeseburger and fries for dinner last night and then started having nausea and vomiting as well as abdominal pain. He reports his abdominal pain is all over but he seems to be point tender in the epigastrium and right upper quadrant area. He does still have his gallbladder. He states he is passing flatus and not having any abnormal bowel movements. He has had no hematemesis but does indicate he has vomited about 4-5 times since last evening. He denies any fever or chills. He states it is a little bit harder for him to breathe right now due to the abdominal pain and he does have COPD at baseline. Patient does have a history of UC for which she takes medications and follows with GI. Vital signs on presentation showed temperature of 97.7, heart rate 62, initial blood pressure was 215/78, oxygen saturation was 98% on room air. Repeat blood pressure was 173/61 and oxygen saturation did drop to 84% on 2 L and he subsequently been uptitrated to 4 L nasal cannula sats between 90 to 96%. CBC was unremarkable except for new thrombocytopenia. His platelet count was 139,001 previously and normal. INR is pending as patient is on chronic anticoagulation. Chemistry panel showed normal electrolytes, slightly elevated BUN and serum creatinine but not markedly elevated from baseline. LFTs were dramatically elevated with an ALT of 226, AST of 266, and total bilirubin of 250. His alk phos was normal at 99. Lipase was 1086 and his triglyceride level is pending. CT of the abdomen pelvis shows possible early pancreatitis, stable perinephritic fat stranding, fat-containing umbilical hernia and possible wall thickening of the descending and sigmoid colon. The emergency department he was treated with IV fluids, antiemetics and pain medication. 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 Chronic diastolic heart failure Paroxysmal atrial flutter Type 2 diabetes mellitus SOB (shortness of breath) Home Medications ?Medication ?Instructions ?Recorded ?Last Taken ?Type potassium chloride 20 mEq 20 meq PO DAILY Low potassium 09/27/15 08/08/22 History tablet,extended release(part/cryst) atorvastatin 40 mg tablet 40 mg PO QHS Cholesterol 08/20/16 08/07/22 History metformin 500 mg tablet 500 mg PO BID Diabetes 05/09/19 08/08/22 History metoprolol tartrate 100 mg tablet 100 mg PO BID Afib 02/17/21 02/19/23 History fexofenadine 180 mg tablet 180 mg PO DAILY PRN PRN Allergic 01/11/22 08/08/22 History Symptoms prazosin 2 mg capsule 2 mg PO BID bp 08/08/22 08/08/22 History vedolizumab 300 mg intravenous 300 mg IV .per order 03/21/23 Unknown History solution (Entyvio) empagliflozin 10 mg tablet 10 mg PO DAILY 04/24/23 Unknown History (Jardiance) furosemide 20 mg tablet 20 mg PO DAILY PRN Edema 06/20/23 Unknown History warfarin 2.5 mg tablet 2.5 mg PO .COMPLEX blood thinner 06/20/23 Unknown Rx #90 tabs flecainide 50 mg tablet 50 mg PO Q12H #180 TABLETS 11/16/23 Unknown Rx budesonide 3 mg 9 mg (3 x 3 mg) PO QAM #90 ea 04/11/24 Unknown Rx capsule,delayed,extended release tiotropium 2.5 mcg-olodaterol 2.5 2 puff inhalation DAILY SOB #3 ea 04/22/24 Unknown Rx mcg/actuation mist for inhalation (Stiolto Respimat) azathioprine 75 mg tablet (Azasan) 150 mg PO DAILY 04/30/24 Unknown History Allergy/AdvReac Type Severity Reaction Status Date / Time amlodipine Allergy Severe Rash Verified 04/30/24 03:03 Penicillins Allergy Hives Verified 04/30/24 03:03 azithromycin AdvReac Diarrhea Verified 04/30/24 03:03 celecoxib (From Celebrex) AdvReac RECTAL Verified 04/30/24 03:03 BLEEDING Family History Mother Colon cancer Heart disease Father CAD (coronary artery disease) Sister Diabetes Brother Heart disease Diabetes Surgical History History of intraocular lens implant History of knee surgery History of bilateral hip replacements History of radiofrequency ablation procedure for cardiac arrhythmia (~08/11/15) Social History Smoking Status: Former smoker how long ago did patient quit smokin + years alcohol intake: never substance use type: does not use caffeine: Yes Type: coffee Number of servings: 3 ROS Constitutional Constitutional: Denies anorexia, change in weight, chills, fatigue, fever(s), malaise, night sweats, weakness or other Eyes Eyes: Denies blurry vision, change in eye color, change in vision, discharge from eye(s), double vision, erythema, eye pain, loss of vision or other ENT HEENT: Denies abnormal hearing, dysphagia, ear pain, epistaxis, headache(s), hearing loss, nasal congestion, nasal discharge, post nasal drip, sinus pressure, sore throat or other Cardiovascular Cardiovascular: Denies chest pain, claudication, dyspnea on exertion, edema, lightheadedness, orthopnea, palpitations, paroxysmal nocturnal dyspnea, rapid heart rate, syncope or other Respiratory/Chest Respiratory/Chest: Reports dyspnea, shortness of breath at rest and shortness of breath with exertion; Denies cough, excessive phlegm production, hemoptysis, productive cough, wheezing or other Gastrointestinal Gastrointestinal: Reports abdominal pain, nausea and vomiting; Denies coffee ground emesis, constipation, diarrhea, dyspepsia, hematemesis, hematochezia, loose stools, melena or other Genitourinary Genitourinary: Denies burning urination, difficulty urinating, dysuria, hematuria, nocturia, urinary frequency, urinary hesitancy, urinary incontinence, urinary urgency or other Musculoskeletal Musculoskeletal: Reports back pain; Denies arthralgias, joint pain, joint stiffness, joint swelling, myalgias, neck pain or other Neurologic Neurologic: Denies abnormal gait, abnormal speech, confusion, disequilibrium, dizziness, focal weakness, headache(s), numbness, paresthesias, seizure-like activity, seizures, syncope, tingling, tremor(s) or other Psychiatric Psychiatric: Denies anxiety, depression, homicidal ideation, suicidal ideation or other Endocrine Endocrinology: Denies change in body appearance, cold intolerance, excessive sweating, heat intolerance, polydipsia, polyuria or other Hematologic/Lymphatic Hematologic/Lymphatic: Denies anemia, easy bleeding, easy bruising, lymphadenopathy or other Allergic/Immunologic Allergic/Immunologic: Denies rhinitis, hives, eczemia, asthma or other Vital Signs Vital Signs Vital Signs: 04/30/24 03:03 04/30/24 05:03 04/30/24 06:55 Temperature 97.7 F L Temperature Source Oral Pulse Rate 62 69 73 Respiratory Rate 18 17 22 H Blood Pressure 215/78 H 187/72 H Blood Pressure Mean 123 110 Pulse Ox 98 91 84 Oxygen Delivery Method Room Air Room Air Nasal Cannula Oxygen Flow Rate (L/min) 2 04/30/24 07:03 04/30/24 07:04 Temperature 97.6 F L Temperature Source Pulse Rate 74 73 Respiratory Rate 20 H 16 Blood Pressure 173/61 H Blood Pressure Mean 98 Pulse Ox 92 96 Oxygen Delivery Method Nasal Cannula Oxygen Flow Rate (L/min) 4 Weight Weight: 136.4 kg Body Mass Index (BMI) 44.4 Physical Exam Const alert, oriented x3, no apparent distress and well nourished; Negative for average body habitus or healthy appearing Constitutional Narrative: Morbidly obese, white male, reclining in bed, appears slightly uncomfortable currently, does not appear toxic, at bedside General Appearance: cooperative HEENT normocephalic and head/scalp atraumatic HEENT Narrative: Dentition is poor, Mallampati is 4, no thrush, mild hearing loss, mucous membranes are dry Eyes PERRL, EOMs intact bilaterally and conjunctivae normal Eyes Narrative: No significant scleral icterus Neck no lymphadenopathy and supple Neck Narrative: Trachea midline, no noted thyroid enlargement Resp normal respiratory effort, no retractions, no use of accessory muscles and clear to auscultation bilaterally Resp Narrative: Diminished but clear Auscultation: Negative for rales, rhonchi or wheezes Cardio regular rate, regular rhythm, S1 normal heart sound, S2 normal heart sound, no murmurs, no rub, no gallops and no clicks GI normal to inspection, nondistended, normoactive bowel sounds and soft to palpation GI Narrative: Guarding with palpation especially noted at right upper quadrant and epigastrium Extremity Extremity Narrative: Chronic trace bilateral lower extremity edema with skin changes consistent with venous stasis, no cyanosis or clubbing Skin skin turgor normal, no jaundice, no petechiae and no mottling Neuro oriented x3, moves all extremities and no focal motor deficits Speech: speech normal Psych affect normal Psych Narrative: Patient is very pleasant, eye contact is good and patient interacts appropriately Results Lab / Micro Data 04/30/24 03:30 04/30/24 03:30 Labs: Laboratory Results - last 24 hr 04/30/24 03:30: WBC 7.9, RBC 5.09, Hgb 15.4, Hct 48.4, MCV 95.1 H, MCH 30.3, MCHC 31.8 L, RDW Std Deviation 49.6 H, RDW Coeff of Jadon 14.2, Plt Count 139 L, MPV 9.6, Immature Gran % (Auto) 0.400, Neut % (Auto) 72.7 H, Lymph % (Auto) 16.5 L, [place] % (Auto) 8.4, Eos % (Auto) 1.6, Baso % (Auto) 0.4, Absolute Neuts (auto) 5.7, Absolute Lymphs (auto) 1.30, Nucleated RBC % 0, Sodium 137, Potassium 3.8, Chloride 106, Carbon Dioxide 24.0, Anion Gap 7, BUN 23 H, Creatinine 1.25, Estim Creat Clear Calc 66.81, Est GFR (MDRD) Af Amer 72, Est GFR (MDRD) Non-Af 59 L, BUN/Creatinine Ratio 18.4, Glucose 249 H, Calcium 8.5, Total Bilirubin 2.50 H, AST 266 H, ALT 226 H, Alkaline Phosphatase 99, Total Protein 7.1, Albumin 3.2, Globulin 3.9, Albumin/Globulin Ratio 0.8 L, Lipase 1086 H 04/30/24 05:10: Urine Color Yellow, Urine Clarity Clear, Urine pH 6.0, Ur Specific [place] 1.010, Urine Protein 30 H, Urine Glucose (UA) 1000 H, Urine Ketones Negative, Urine Occult Blood 50 H, Urine Nitrite Negative, Urine Bilirubin Negative, Urine Urobilinogen 1 H, Ur Leukocyte Esterase Negative, Urine RBC 0-5 SEEN, Urine WBC 0 SEEN, Ur Squamous Epith Cells 0 SEEN, Urine Bacteria RARE, Urine Mucus 0 SEEN Imaging Radiology Impression Abdomen/Pelvis CT 04/30/24 03:14 IMPRESSION: 1. Possible early pancreatitis. 2. Stable nonspecific perinephric fat stranding. 3. Fat-containing umbilical hernia. 4. Questionable wall thickening of the descending and sigmoid colon. Electronically Signed: Diana Mosqueda MD at 5:13 EDT Reading Location ID and State: [facility] / [place] Tel , Service support , Assessment & Plan Assessment/Plan (1) Acute pancreatitis: (2) Nausea & vomiting: (3) Abdominal pain: (4) Thrombocytopenia: (5) Transaminitis: (6) Hyperbilirubinemia: PLAN: Plan Nausea/vomiting/abdominal pain secondary to acute pancreatitis -Concern for gallstone pancreatitis as he has elevated LFTs and hyperbilirubinemia -Check MRCP -N.p.o. except for sips and chips and p.o. meds -Normal saline at 100 cc/h -As needed pain medication -As needed antiemetics -Depending on MRCP may need GI involvement will await results -Will hold Coumadin for now in case ERCP needs to be performed Transaminitis/hyperbilirubinemia -Concern for gallstone pancreatitis -Patient still has his gallbladder -It is painful and right upper quadrant with positive Oliver sign -Check MRCP as noted Thrombocytopenia -This is new -Coags will be abnormal as he is chronically anticoagulated with Coumadin -Repeat in a.m. -May need liver imaging as he would be high risk for ORONA cirrhosis -Does have mild hepatic steatosis noted from imaging on CT 08/08/2022 -Could be related to azathioprine History of ulcerative colitis -Follows with GI -Continue home azathioprine -Continue home budesonide -Hold home biologic until discharged -No current signs of GI bleed Lung cancer -Pathology as clear as his care has been performed in [facility] -Patient did undergo 5 episodes of radiation -No lung resection performed -No current chemotherapy being performed -No current issues Paroxysmal atrial fibrillation -Continue flecainide -Continue metoprolol -Hold Coumadin in case patient needs ERCP -Has had previous ablation done at [place] Essential hypertension -Hold Lasix -Continue home metoprolol -Continue prazosin -As needed hydralazine for systolic blood pressure greater than 160 Hyperlipidemia -Continue home statin CKD stage IIIb -Baseline serum creatinine is 1.2-1.3 -Creatinine is currently at baseline -IV fluids for hydration while n.p.o. DM-2 -Hold home oral agents -Sliding scale -Accu-Cheks -Will need carb controlled diet when p.o. diet can be initiated BPH with obstruction -Continue prazosin SILVER -Wears CPAP 11 cm of water -Continue at at bedtime and with naps Morbid obesity -BMI 44.4 -Recommend weight loss -Complicates treatment, prognosis, outcomes DVT prophylaxis -Anticoagulation on hold secondary to above -SCDs bilateral CODE STATUS -DNR CCA with no intubation as verified on admission Charges/Coding Visit Charges Inpatient E&M: 50758 Init Hosp L3
--- NOTE | 2024-04-30 08:06 | NURSING ---
DR BECKFORD FOR DR RIVERA
--- NOTE | 2024-04-30 08:12 | NURSING ---
MED SURG SHAKEEL PANCREATITIS
[2024-04-30 08:50] LABS: Triglycerides 96 mg/dL
[2024-04-30 08:53] LABS: International Normalized Ratio 2.4
[2024-04-30] MEDS: Metoprolol Tartrate 100 MG Tablet PO ×2 (10:31→20:34)
[2024-04-30] MEDS: Flecainide 100 MG Tablet 50 MG PO ×2 (10:32→20:33)
--- NOTE | 2024-04-30 10:43 | CASEMGMT ---
Social Work SW spoke w/pt and in room, as physician had concerns about who has dementia. Initially pt states the physician would like to go home and get his CPAP machine mask and bring it back. However pt's drove here, physician does not think should drive home, pt in agreement. He thought the hospital van could bring her home for her to get the mask and then bring it back. Upon further discussion, it was decided this would not be a good idea given 's memory issues. SW explained will check w/doctor to make sure she is fine w/using a mask here. We then discussed getting pt's home, if pt felt she would be okay on her own, pt states, I think so. SW asked about additional family, he states he has a brother in the area who could check on her. SW asked if he could get the mask, he states he hates to ask him. Pt did say he may call an aide agency to hire someone to stay w/his while he is here, and then also mentioned having the pt stay here overnight while he is here. SW spoke w/physician, she did tell pt to not worry about the CPAP mask after further discussion w/him, states he can use the equipment here. SW spoke w/pt again, let him know that he does not need to worry about the CPAP mask, we will get him one here(SW called respiratory to let them know). SW brought pt a private hire aide list. SW discussed again about getting pt's home. He states he called his brother who is coming in and will likely be able to take pt's home. SW remains available for any additional needs. MIGDALIA Duran
[2024-04-30] MEDS: Insulin Lispro 100 UNIT/ML INSULN.PEN SC ×2 (11:35→17:19)
[2024-04-30] MEDS: Budesonide 3 MG CAPSULE.EC 9 MG PO (11:36)
[2024-04-30] MEDS: azaTHIOprine 50 MG Tablet 150 MG PO (11:37)
[2024-04-30 11:58] LABS: Bedside Glucose 198 mg/dL (74-106)
[2024-04-30] MEDS: Empagliflozin 10 MG Tablet PO (12:21)
[2024-04-30] MEDS: Prazosin HCl 1 MG Capsule 2 MG PO ×2 (12:21→20:33)
[2024-04-30] MEDS: Ipratropium/Albuterol Sulfate 3 ML AMPUL.NEB INHALATION ×2 (13:29→19:59)
[2024-04-30 17:39] LABS: Bedside Glucose 183 mg/dL (74-106)
--- NOTE | 2024-04-30 21:05 | NURSING ---
pt was found sitting on the floor in the doorway of the restroom in his room, pt was able to reach the call light that was in his recliner of his room and said he needed some help but did not say he fell. prior the fall the pt had been up ad kym, stated he tripped on the tip of his grippy sock and fell on his butt. no injuries, vss.
[2024-05-01] VITALS (20 sets, daily range): BP systolic 104–160; BP diastolic 53–90; PULSE 61–89; RESP 15–28; TEMP 36.2–36.8; O2SAT 92–100; BMI 44.1
[2024-05-01 06:10] LABS: Bedside Glucose 125 mg/dL (74-106)
[2024-05-01 07:12] LABS: Absolute Lymphocyte Count 0.75 X10^3/uL (0.83-4.51); Absolute Neutrophil Count 6.9 X10^3/uL (2.0-7.7); Basophil# 0.01 X10^3/uL; Basophil% 0.1 % (0-1); Eosinophil# 0.04 X10^3/uL; Eosinophils% 0.5 % (0-5); Hematocrit 46.2 % (40-54); Hemoglobin 14.3 g/dL (13.0-16.5); Lymphocyte # 0.75 X10^3/ul (0.83-4.51); Mean Corpuscular Hgb 30.6 pg (27.0-32.0); Mean Corpuscular Volume 98.9 fL (80-94); Mean Platelet Vol. 10.2 fl (6.2-12.0); Monocyte# 0.67 X10^3/uL; NRBC Flagged by Analyzer 0 % (0-5); Neutrophil # 6.89 X10^3/uL (2.7-7.7); Neutrophil % 82.3 % (47-70); Platelet Count 117 K/mm3 (150-450); RBC Distribution Width CV 14.6 % (11.6-14.6); RBC Distribution Width SD 52.8 fl (35.1-43.9); Red Blood Count 4.67 M/mm3 (4.6-6.2); White Blood Count 8.4 K/mm3 (4.4-11.0)
[2024-05-01] MEDS: Ipratropium/Albuterol Sulfate 3 ML AMPUL.NEB INHALATION ×3 (07:19→19:28)
[2024-05-01 07:57] LABS: ALB/GLOB Ratio 0.8 RATIO (0.9-2.4); AST(SGOT) 104 U/L (15-37); Alanine Aminotransfer ALT/SGPT 230 U/L (16-61); Albumin, Serum 2.9 g/dL (3.2-5.0); Alkaline Phosphatase 121 U/L (45-117); Anion Gap 6 (5-15); BUN 18 mg/dL (7-18); BUN/Creat Ratio 16.4 RATIO (10-20); Calcium,Total 8.3 mg/dL (8.5-10.1); Chloride 110 mmol/L (98-107); EST Glomerular Filtration Rate 69 mL/min (>60); Est Glom Filt Rate - Afr Amer 83 mL/min (>60); Estimated Creatinine Clearance 75.73 ml/min; Globulin 3.8 g/dL (2.2-4.2); Glucose 117 mg/dL (74-106); Magnesium 2.3 mg/dL (1.6-2.6); Phosphorus 3.7 mg/dL (2.5-4.9); Potassium 3.9 mmol/L (3.5-5.1); Protein, Total 6.7 g/dL (6.4-8.2); Sodium Level 141 mmol/L (136-145)
--- NOTE | 2024-05-01 08:16 | MRI_ITS ---
EXAM: MR ABDOMEN WITHOUT INTRAVENOUS CONTRAST, MRCP PROTOCOL CLINICAL INDICATION: acute pancreatitis with hyperbilirubinemia TECHNIQUE: Multiplanar and multisequence MR images of the abdomen without intravenous contrast obtained with MRCP sequence. Three-dimensional post-processing reconstructions were performed. COMPARISON: CT abdomen pelvis 04/30/2024 FINDINGS: LOWER THORAX: Small sliding hiatal hernia. No pleural effusion. LIVER: Liver is mildly prominent in size without space-occupying lesion. GALLBLADDER AND BILE DUCTS: Pericholecystic fluid is noted raising possibility of acute cholecystitis. No discrete evidence of gallstones. Biliary tree is normal. 4 x 2 cm duodenal diverticulum. No intra- or extrahepatic biliary ductal dilation. No choledochal filling defect. PANCREAS: Mild amount of edema noted within the anterior pararenal space adjacent to the pancreas may represent underlying acute pancreatitis. No focal cystic mass. No pancreatic duct dilation. SPLEEN: Spleen is mildly prominent in size measuring 14.1 cm in length. ADRENALS: Normal. No nodules. KIDNEYS AND URETERS: Nonspecific bilateral perinephric stranding noted. There are multiple small bilateral renal cysts. No specific follow-up indicated. Normal renal size and position. INTRAPERITONEAL SPACE: Normal. No ascites or other fluid collection. VASCULATURE: Normal. Abdominal aorta is non-dilated. LYMPH NODES: No enlarged lymph nodes. MRI/MRCP Abdomen without Contrast IMPRESSION: 1. Pericholecystic fluid raising the possibility of acute cholecystitis. 2. Normal common bile duct. 3. Mild acute pancreatitis. 4. Mild hepatosplenomegaly. Electronically Signed: Jordan Zapata MD at 10:43 EDT ,
--- NOTE | 2024-05-01 08:20 | PCM.PN.HOSP ---
Reason for Visit Reason for Visit: Abdominal pain/nausea/vomiting Subjective Subjective Patient states he is feeling a little bit better today. His enzymes are elevated. I did discuss that he will likely need to go for ERCP later today or tomorrow. It is not clear what time that will occur. We are still waiting for GI consultation. Objective Data Objective Data Vital Signs: Vital Signs Temp Pulse Resp BP Pulse Ox O2 Del Method O2 Flow Rate 98.1 F 64 18 155/70 H 100 CPAP 2 05/01/24 03:00 05/01/24 07:20 05/01/24 07:20 05/01/24 03:00 05/01/24 03:00 05/01/24 03:00 05/01/24 03:00 FiO2 30 05/01/24 02:41 Oxygen Flow Rate (L/min) 2 Oxygen Delivery Method CPAP Weight: 135.8 kg Body Mass Index (BMI) 44.1 Intake & Output: Intake and Output for Last 24 Hours 04/29/24 04/30/24 05/01/24 23:59 23:59 23:59 Intake Total 1999 Output Total 350 / 350 Balance 1999 -350 / -350 Lab / Micro Data 05/01/24 06:13 05/01/24 06:13 Labs: Laboratory Results - last 24 hr 04/30/24 08:32: PT 26.0 H, INR 2.4, Triglycerides 96 04/30/24 11:34: POC Glucose 198 H 04/30/24 17:17: POC Glucose 183 H 05/01/24 00:54: POC Glucose 125 H 05/01/24 06:13: WBC 8.4, RBC 4.67, Hgb 14.3, Hct 46.2, MCV 98.9 H, MCH 30.6, MCHC 31.0 L, RDW Std Deviation 52.8 H, RDW Coeff of Jadon 14.6, Plt Count 117 L, MPV 10.2, Immature Gran % (Auto) 0.100, Neut % (Auto) 82.3 H, Lymph % (Auto) 9.0 L, [place] % (Auto) 8.0, Eos % (Auto) 0.5, Baso % (Auto) 0.1, Absolute Neuts (auto) 6.9, Absolute Lymphs (auto) 0.75 L, Nucleated RBC % 0, Sodium 141, Potassium 3.9, Chloride 110 H, Carbon Dioxide 25.0, Anion Gap 6, BUN 18, Creatinine 1.10, Estim Creat Clear Calc 75.73, Est GFR (MDRD) Af Amer 83, Est GFR (MDRD) Non-Af 69, BUN/Creatinine Ratio 16.4, Glucose 117 H, Calcium 8.3 L, Phosphorus 3.7, Magnesium 2.3, Total Bilirubin 4.90 H, AST 104 H, ALT 230 H, Alkaline Phosphatase 121 H, Total Protein 6.7, Albumin 2.9 L, Globulin 3.8, Albumin/Globulin Ratio 0.8 L Physical Exam Const alert, oriented x3, no apparent distress and well nourished; Negative for average body habitus or healthy appearing Constitutional Narrative: Morbidly obese, white male, sitting up in a chair at the bedside, appears slightly uncomfortable currently, does not appear toxic General Appearance: cooperative HEENT normocephalic and head/scalp atraumatic Resp normal respiratory effort, no retractions, no use of accessory muscles and clear to auscultation bilaterally Resp Narrative: Diminished but clear Auscultation: Negative for rales, rhonchi or wheezes Cardio regular rate, regular rhythm, S1 normal heart sound, S2 normal heart sound, no murmurs, no rub, no gallops and no clicks GI normal to inspection, nondistended, normoactive bowel sounds and soft to palpation GI Narrative: Still mildly tender but much less than yesterday with no significant guarding today Extremity Extremity Narrative: Chronic trace bilateral lower extremity edema with skin changes consistent with venous stasis, no cyanosis or clubbing Neuro oriented x3, moves all extremities and no focal motor deficits Speech: speech normal Psych affect normal Psych Narrative: Patient is very pleasant, eye contact is good and patient interacts appropriately Assessment & Plan Assessment/Plan (1) Acute pancreatitis: (2) Nausea & vomiting: (3) Abdominal pain: (4) Thrombocytopenia: (5) Transaminitis: (6) Hyperbilirubinemia: PLAN: Plan Nausea/vomiting/abdominal pain secondary to acute pancreatitis -Concern for gallstone pancreatitis as he has elevated LFTs and hyperbilirubinemia -MRCP done but pending -N.p.o. except for sips and chips and p.o. meds until clarification from GI -Normal saline at 100 cc/h until p.o. intake is adequate and will then discontinue -As needed pain medication -As needed antiemetics -Consult GI as transaminases are trending up and I highly suspect he has gallstone pancreatitis and choledocholithiasis Transaminitis/hyperbilirubinemia -Concern for gallstone pancreatitis -Patient still has his gallbladder -It is painful and right upper quadrant with positive Oliver sign -MRCP is pending -Will consult GI with uptrending enzymes Thrombocytopenia -This is new but relatively stable at this time -Coags will be abnormal as he is chronically anticoagulated with Coumadin -Repeat in a.m. -May need liver imaging as he would be high risk for ORONA cirrhosis -Does have mild hepatic steatosis noted from imaging on CT 08/08/2022 -Could be related to azathioprine History of ulcerative colitis -Follows with GI -Continue home azathioprine -Continue home budesonide -Hold home biologic until discharged -No current signs of GI bleed Lung cancer -Pathology as clear as his care has been performed in [place] at [facility] -Patient did undergo 5 episodes of radiation -No lung resection performed -No current chemotherapy being performed -No current issues Paroxysmal atrial fibrillation -Continue flecainide -Continue metoprolol -Restart Coumadin when okay with GI--> will discuss tomorrow after we obtain enzymes and lab data -Has had previous ablation done at [place] Essential hypertension -Continue to hold Lasix -Continue home metoprolol -Continue prazosin -As needed hydralazine for systolic blood pressure greater than 160 Hyperlipidemia -Continue home statin CKD stage IIIb -Baseline serum creatinine is 1.2-1.3 -Creatinine is currently at baseline -IV fluids for hydration while n.p.o. DM-2 -Hold home oral agents -Sliding scale -Accu-Cheks -Will need carb controlled diet when p.o. diet can be initiated BPH with obstruction -Continue prazosin SILVER -Wears CPAP 11 cm of water -Continue at at bedtime and with naps Morbid obesity -BMI 44.4 -Recommend weight loss -Complicates treatment, prognosis, outcomes DVT prophylaxis -Anticoagulation on hold secondary to above -SCDs bilateral CODE STATUS -DNR CCA with no intubation as verified on admission Charges/Coding Visit Charges Inpatient E&M: 57633 Subs Hosp L2
[2024-05-01] MEDS: 0.9% Normal Saline (1000mL) 1,000 ML 100 ML IV ×2 (08:21→16:42)
[2024-05-01 08:42] LABS: Bedside Glucose 127 mg/dL (74-106)
[2024-05-01] MEDS: azaTHIOprine 50 MG Tablet 150 MG PO (10:32)
[2024-05-01] MEDS: Budesonide 3 MG CAPSULE.EC 9 MG PO (10:32)
[2024-05-01] MEDS: Metoprolol Tartrate 100 MG Tablet PO ×2 (10:32→22:04)
[2024-05-01] MEDS: Nystatin Powder 15gm Bottle 1 APPLIC TOPICAL ×2 (10:32→22:04)
[2024-05-01] MEDS: Flecainide 100 MG Tablet 50 MG PO ×2 (10:33→22:05)
[2024-05-01] MEDS: Prazosin HCl 1 MG Capsule 2 MG PO ×2 (10:33→22:01)
[2024-05-01] MEDS: 0.9% Saline Lock 10 ML Syringe IV (10:37)
--- NOTE | 2024-05-01 11:46 | EKG12_ITS ---
Test Reason : PREOP Blood Pressure : / mmHG Vent. Rate : 064 BPM Atrial Rate : 064 BPM P-R Int : 282 ms QRS Dur : 086 ms QT Int : 430 ms P-R-T Axes : 105 -36 -03 degrees QTc Int : 443 ms Sinus rhythm with 1st degree A-V block Left axis deviation Pulmonary disease pattern Cannot rule out Septal infarct , age undetermined Inferior infarct , age undetermined Abnormal ECG Confirmed by Oliverio Pizarro ([id number]), video editor NEDA JIN ([id number]) on 05/02/2024 7:54:52 AM Referred By: Confirmed By:Oliverio Pizarro
--- NOTE | 2024-05-01 11:50 | CASEMGMT ---
MYRNA GIRALDO Assessment: Face to Face with pt for initial transition planning/care coordination assessment. MYRNA GIRALDO introduced self and role at [facility], pt voices understanding and consents to assessment. Pt is A&O x4 and answers all questions appropriately at this time. Pt lying in bed in no distress. Care providers, pharmacy, and demographics verified/updated. Admitting Dx: acute pancreatitis Strata Score: 2 PCP:EDER Breaux Specialists:dong Major onc; SARAHY, cardio Preferred Pharmacy: [facility] Insurance: [facility] [place] Prescription Benefit: yes LNOK: Em Oshea, Living Arrangements: Pt lives with in a single story home with 2 steps to enter. Pt reports he is I in ADL and IADLs and denies concerns at home. Transportation: Pt drives self and denies concerns with transportation. DME:walker, crutches, cane, CPAP, oxygen concentrator but does not use, BGM with sufficient supply of strips and lancets but doesn't use HHC/SNF: Denies hx of Pt states no concerns with going home at time of dc. Pt states that his has dementia and his brother is staying with her. Pt states no further concerns/needs. CM to follow. Advised pt to ask CM if any further question/concerns/needs arise, voices understanding. Pt Goal: Home Plan: Home Syed NORRIS CM
[2024-05-01 12:30] LABS: Bedside Glucose 136 mg/dL (74-106)
--- NOTE | 2024-05-01 13:41 | PCM.PRE.AN2 ---
ASA Classification* ASA Classification ASA Classification: 3 Assessment & Plan Anesthesia* Anesthesia Assessment Anesthesia Assessment: Discussed sedation and/or anesthesia options, risks, benefits, and alternatives with patient/parents/legal guardian/POA. Questions invited. The patient/parents/legal guardian/POA seems to understand and agrees to proceed with anesthesia plan. Reviewed the physical assessment, medical history, allergy history and patient home medications list prior to surgery/procedure/anesthetic and documented any changes. Performed airway and anesthesia risk assessments. Anesthesia Type Anesthesia Type: General History Source History Obtained from:: Patient Anesthesia Focused Assessment* Temperature: 97.9 F Pulse Rate: 70 Blood Pressure: 160/58 Respiratory Rate: 18 Pulse Ox: 94 Oxygen Delivery Method: Room Air Fraction of Inspired Oxygen (FIO2): 30 Airway Assessment Mouth opens: >3 cm Mallampati Score: IV Teeth Condition: Missing (Multiple missing teeth.) and Partial (Lower partials) Neck Range of motion (ROM): Limited ROM Focused Labs Anesthesia Preop lab: CBC WBC 8.4 K/mm3 (4.4-11.0) 05/01/24 06:13 RBC 4.67 M/mm3 (4.6-6.2) 05/01/24 06:13 Hgb 14.3 g/dL (13.0-16.5) 05/01/24 06:13 Hct 46.2 % (40-54) 05/01/24 06:13 Plt Count 117 K/mm3 (150-450) L 05/01/24 06:13 CHEMISTRY Potassium 3.9 mmol/L (3.5-5.1) 05/01/24 06:13 Sodium 141 mmol/L (136-145) 05/01/24 06:13 Magnesium 2.3 mg/dL (1.6-2.6) 05/01/24 06:13 Phosphorus 3.7 mg/dL (2.5-4.9) 05/01/24 06:13 BUN 18 mg/dL (7-18) 05/01/24 06:13 Creatinine 1.10 mg/dL (0.70-1.30) 05/01/24 06:13 Glucose 117 mg/dL (74-106) H 05/01/24 06:13 POC Glucose 136 mg/dL (74-106) H 05/01/24 11:34 TSH 1.87 uIU/mL (0.358-3.74) 11/01/21 05:04 COAG PT 26.0 SECONDS (11.7-14.9) H 04/30/24 08:32 Pre-Assessment Diagnosis/Proposed Procedure Planned Operative Procedure(s): Endoscopic retrograde cholangiopancreatography. 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 When Was Last Pacemaker Check QUESTION #4 FULL TEXT: You/Your Family Experience fever (hyperthermia) with Anesthesia Last Oral Intake Last Oral intake: Last Oral Intake NPO since Meds taken in AM with sips of water? Meds patient instructed to take am of surgery Any additional information?: Yes NPO since: 00:00 PONV PONV - resistance welder: PONV - resistance welder Female HX of Motion Sickness HX of N/V After Surgery Non-Smoker Duration of Surgery greater than 60 minutes Number of Risk Factors PONV Score Height & Weight Height & Weight: Anesthesia: Height & Weight Height 5 ft 9 in 04/30/24 13:09 Weight: 135.8 kg 04/30/24 13:09 Body Mass Index (BMI) 44.1 04/30/24 09:38 Respiratory Assessment Respiratory Assessment - resistance welder: Respiratory Tract Infection Hx - resistance welder Hx Respiratory Tract Infection No 02/15/23 10:18 STOP Sleep Apnea STOP Sleep Apnea - resistance welder: STOP Sleep Apnea - resistance welder Hx Hypertension Yes: CONTROLLED WITH MED 04/30/24 09:38 Hx Sleep Apnea Yes 04/30/24 09:38 CPAP Yes 04/30/24 09:38 BIPAP No 04/30/24 09:38 Do you snore loudly (louder than talking or can be heard Do you often feel tired/ fatigued/ sleepy during daytime? Has anyone observed you stop breathing during sleep? STOP Results Positive 04/30/24 09:38 QUESTION #5 FULL TEXT : Do you snore loudly (louder than talking or can be heard through closed doors)? 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 Specify any problems Hx of Preganancy in last 3 N/A 04/30/24 09:38 Months Nurse Filling Out Transfusion RVIZZO 04/30/24 09:38 & Questions: Date: 04/30/24 04/30/24 09:38 Time: 09:48 04/30/24 09:38 Patient unable to answer at this time (ie. confused, unrespo /Reproduction History /Reproductive History - resistance welder: /Reproductive Hx- resistance welder Hx Now Gestational Age (in weeks): EDC: Hx Hx Para Hx Section SAB Active Medications Active Medications: Current Medications Generic Name Dose Route Start Last Admin Trade Name Freq PRN Reason Stop Dose Admin Acetaminophen 650 mg 04/30/24 09:35 Acetaminophen 325 Mg Tablet PO Q6H PRN PRN Pain 1-10 Or Fever >100.7 Albuterol Sulfate 2.5 mg 04/30/24 09:35 Albuterol 2.5 Mg/3 Ml Vial.Neb. INHALATION Q2H PRN PRN SOB &/OR WHEEZING Albuterol/Ipratropium 3 ml 04/30/24 10:00 05/01/24 12:17 Ipratropium/Albuterol Sulfate 3 Ml Ampul.Neb INHALATION 3 ml Q6HWA.RT SASHA Administration Azathioprine 150 mg 04/30/24 12:00 05/01/24 10:32 Azathioprine 50 Mg Tablet PO 150 mg BREAKFAST SASHA Administration Budesonide 9 mg 04/30/24 10:00 05/01/24 10:32 Budesonide 3 Mg Capsule.Ec PO 9 mg QAM SASHA Administration Empagliflozin 10 mg 04/30/24 10:00 05/01/24 10:32 Empagliflozin 10 Mg Tablet PO Not Given DAILY SASHA Flecainide Acetate 50 mg 04/30/24 10:00 05/01/24 10:33 Flecainide 100 Mg Tablet PO 50 mg Q12 SASHA Administration Glucagon 1 mg 04/30/24 09:35 Glucagon 1 Mg/Ml Syringe IM X1 PRN HYPOGLYCEMIA Protocol Hydralazine HCl 10 mg 04/30/24 09:35 Hydralazine 20 Mg/Ml Vial IV Q6H PRN PRN SBP>160 Protocol Sodium Chloride 1,000 mls @ 100 mls/hr 04/30/24 07:45 05/01/24 08:21 IV 100 mls/hr .Q10H SASHA Administration Dextrose 250 mls @ 0 mls/hr 04/30/24 09:35 Dextrose 10%-Water IV .Q0M PRN HYPOGLYCEMIA Protocol As Directed Insulin Human Lispro 0 unit 04/30/24 12:00 05/01/24 11:37 Insulin Lispro 100 Unit/Ml Insuln.Pen SC Not Given Q6 [facility] Protocol Metoprolol Tartrate 100 mg 04/30/24 10:00 05/01/24 10:32 Metoprolol Tartrate 100 Mg Tablet PO 100 mg BID SASHA Administration Protocol Morphine Sulfate 2 - 4 mg 04/30/24 09:35 04/30/24 10:31 Morphine 2 Mg/Ml Syringe IV 2 mg Q3H PRN PRN Administration Pain Score 6-10 Morphine Sulfate 2 - 4 mg 04/30/24 09:42 Morphine 4 Mg/Ml Syringe IV Q3H PRN PRN Pain Score 6-10 Nystatin 1 applic 04/30/24 22:00 05/01/24 10:32 Nystatin Powder 15gm Bottle TOPICAL 1 applic BID [facility] Administration Protocol Ondansetron HCl 4 mg 04/30/24 09:35 Ondansetron 4 Mg/2 Ml Vial IV Q8H PRN PRN NAUSEA/VOMITING Prazosin HCl 2 mg 04/30/24 10:00 05/01/24 10:33 Prazosin Hcl 1 Mg Capsule PO 2 mg BID SASHA Administration Prochlorperazine Edisylate 5 mg 04/30/24 09:35 Prochlorperazine 10 Mg/2 Ml Vial IV Q4H PRN PRN Breakthrough nausea/vomiting Senna/Docusate Sodium 2 tablet 04/30/24 09:35 Senna/Docusate Sodium 1 Tablet PO BID PRN PRN Constipation Sodium Chloride 10 - 40 ml 04/30/24 09:50 05/01/24 10:37 0.9% Saline Lock 10 Ml Syringe IV 10 ml UD PRN Administration SALINE FLUSH PFSH Medical History Wears glasses Wears partial dentures Cancer Arthritis High cholesterol Tremor of both hands Ulcerated colon Shortness of breath on exertion Leg cramps History of stress test History of echocardiogram Cardiology follow-up encounter History of atrial fibrillation Ulcerative colitis COVID-19 Anxiety Diabetes Former smoker CPAP (continuous positive airway pressure) dependence Sleep apnea Congestive heart failure (CHF) Atrial fibrillation 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, adult FDC current use of 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 Chronic diastolic heart failure Paroxysmal atrial flutter Type 2 diabetes mellitus SOB (shortness of breath) Home Medications ?Medication ?Instructions ?Recorded ?Last Taken ?Type potassium chloride 20 mEq 20 meq PO DAILY Low potassium 09/27/15 08/08/22 History tablet,extended release(part/cryst) atorvastatin 40 mg tablet 40 mg PO QHS Cholesterol 08/20/16 08/07/22 History metformin 500 mg tablet 500 mg PO BID Diabetes 05/09/19 08/08/22 History metoprolol tartrate 100 mg tablet 100 mg PO BID Afib 02/17/21 05/01/24 History fexofenadine 180 mg tablet 180 mg PO DAILY PRN PRN Allergic 01/11/22 08/08/22 History Symptoms prazosin 2 mg capsule 2 mg PO BID bp 08/08/22 05/01/24 History vedolizumab 300 mg intravenous 300 mg IV .per order 03/21/23 Unknown History solution (Entyvio) empagliflozin 10 mg tablet 10 mg PO DAILY 04/24/23 Unknown History (Jardiance) furosemide 20 mg tablet 20 mg PO DAILY PRN Edema 06/20/23 Unknown History flecainide 50 mg tablet 50 mg PO Q12H #180 TABLETS 11/16/23 05/01/24 Rx budesonide 3 mg 9 mg (3 x 3 mg) PO QAM #90 ea 04/11/24 05/01/24 Rx capsule,delayed,extended release tiotropium 2.5 mcg-olodaterol 2.5 2 puff inhalation DAILY SOB #3 ea 04/22/24 Unknown Rx mcg/actuation mist for inhalation (Stiolto Respimat) azathioprine 75 mg tablet (Azasan) 150 mg PO DAILY colitis 04/30/24 05/01/24 History warfarin 2.5 mg tablet 2.5 mg PO TUWETHFRSA blood thinner 04/30/24 Unknown History warfarin 5 mg tablet 5 mg PO SUMO BLOOD THINNER 04/30/24 Unknown History Allergy/AdvReac Type Severity Reaction Status Date / Time amlodipine Allergy Severe Rash Verified 05/01/24 13:49 Penicillins Allergy Hives Verified 05/01/24 13:49 azithromycin AdvReac Diarrhea Verified 05/01/24 13:49 celecoxib (From Celebrex) AdvReac RECTAL Verified 05/01/24 13:49 BLEEDING Family History Mother Colon cancer Heart disease Father CAD (coronary artery disease) Sister Diabetes Brother Heart disease Diabetes Surgical History History of intraocular lens implant History of knee surgery History of bilateral hip replacements History of radiofrequency ablation procedure for cardiac arrhythmia (~08/11/15) Social History Smoking Status: Former smoker how long ago did patient quit smokin + years alcohol intake: never substance use type: does not use caffeine: Yes Type: coffee Number of servings: 3 Review of Systems (Anesthesia) ROS Narrative System reviewed and no additional complaints, except as documented.
[2024-05-01] MEDS: Lactated Ringers 1,000 ML 15 ML IV (13:49)
--- NOTE | 2024-05-01 14:15 | RAD_ITS ---
Fluoroscopic-guided ERCP INDICATION: Pain TECHNIQUE: ERCP was performed by attending painter helper sign utilizing 488.5 seconds of fluoroscopic time. FINDINGS: 8 fluoroscopic guided images were obtained in the anterior projection during the procedure to document findings during the study. For more complete information recommend correlation with procedural notes RAD/ERCP Biliary/Pancreas IMPRESSION: Fluoroscopic guided ERCP Electronically Signed: Fahad Pires MD at 21:23 EDT ,
--- NOTE | 2024-05-01 14:39 | NURSING ---
Addendum entered by Rajwinder Lord 05/01/24 14:53: talked with custom shop worker Sarah. talked with HRO Office Panchito regarding situation, as concern pt remains off unit, no contact information for pt's brother and concerned he will be looking for her. Original Note: in to talk with patient whom was assisted to pt's room by amanda. Informed pt's was in the ER looking for her . Pt off unit in procedure. In to talk with . Pt's states she drove herself to the hospital because there was a note left by the telephone stating her was at the hospital. Pt noted to be confused. unable to state why her was here, did not recall when he came or why, and did not recall being her the previous day. Asked pt's if she had talk with the patient's brother. She stated she had not talked with him or anyone, just thought this would be the only hospital she could think of. states she does not have any phone number or way to contact pt's brother but Karlos Oshea.
[2024-05-01 14:48] LABS: Hemoglobin A1c 8.2 % (3.8-5.6)
--- NOTE | 2024-05-01 15:05 | FLU_PTH ---
PATIENT: AVELINA BULL LOC: [facility] U#:[id number] AGE/SX: 79/M ROOM: MN318 RE04/30/[address]: Dr. Sarah Major DO : 1945 BED: 1 DIS: 05/02/2024 SPEC #: [id number] RECD: 05/01/24 15:36 STATUS: BLAZE REQ #: [id number] HERIBERTO: 05/01/24 15:[address]: Curtis Gorman DEPT: CYTOLOGY RECD BY: Ema Perez ENTERED: 05/02/24 08:04 SP TYPE: Fluid OTHR DR: Dr. Sarah Major DO EDER Cardozo Tissues: A - Bile duct, NOS B - Bile duct, NOS Procedures: Special Stain Group II Surgery Specimen Level IV Cytospin Fluid Cytology Other Comments: @ Ordering doctor for SSII edited from to @ by LEENA at 05/02/24 08 @ Ordering doctor for SUIV edited from to @ by LEENA at 05/02/24827 @ Ordering doctor for CYSPIN edited from to @ by LEENA at 05/02/24 0828 @ Ordering doctor for CYOTHER edited from to @ by LEENA at 05/02/24 0828 @ Submitting doctor edited from to @ by LEENA at 05/02/2428 HEADER OPERATION: ERCP with brushings, balloon sweep and stent placement PRE-OP DIAGNOSIS: Acute pancreatitis, nausea/vomiting, abdominal pain, thrombocytopenia, transaminiti, hyperbilirubinemia TISSUE SUBMITTED: A- 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 Common bile duct brushings (cytospin and cellblock): Negative for malignant cells. See comment. B. Fine needle aspiration, common bile duct stricture brushings (smears): Negative for malignant cells. Acute inflammation. AM. 05/03/2024 COMMENT A. The specimen contains degenerative epithelioid cells. Clinical correlation is suggested. CYTOLOGY STUDY Slides are reviewed. CYTOLOGY GROSS A. 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 Submitted for cytology preparation including cell block. B. Received are 3 smears labeled with the patient's name and designated per the requisition as Brushings of common bile duct stricture. Submitted for staining. Mr 05/02/2024 TC:2 CPT: 44802u9,57417
--- NOTE | 2024-05-01 15:48 | OP.ERCP_ITS ---
Patient Name: Oliverio Oshea Procedure Date: 05/01/2024 1:55 PM Date of : 1945 Age: 79 Procedure: ERCP Indications: Bile duct stone(s), Jaundice, Elevated liver enzymes, Acute pancreatitis Providers: Curtis Gorman DO Medicines: Monitored Anesthesia Care Patient Profile: This is a 79 year old male. Refer to note in patient chart for documentation of history and physical. Patient has symptoms of acute jaundice. This patient has no history of previous ERCP. This patient has no history of surgical alteration of the upper digestive tract anatomy. Complications: No immediate complications. Procedure: Pre-Anesthesia Assessment: - Prior to the procedure, a History and Physical was performed, and patient medications and allergies were reviewed. The patient is competent. The risks and benefits of the procedure and the sedation options and risks were discussed with the patient. All questions were answered and informed consent was obtained. Patient identification and proposed procedure were verified by the physician in the pre-procedure area. Mental Status Examination: alert and oriented. Airway Examination: normal oropharyngeal airway and neck mobility. Respiratory Examination: clear to auscultation. CV Examination: normal. Prophylactic Antibiotics: The patient does not require prophylactic antibiotics. Prior Anticoagulants: The patient has taken no 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 or antiplatelet agents except for NSAID medication. ASA Grade Assessment: III - A patient with severe systemic disease. After reviewing the risks and benefits, the patient was deemed in satisfactory condition to undergo the procedure. The anesthesia plan was to use monitored anesthesia care (MAC). Immediately prior to administration of medications, the patient was re-assessed for adequacy to receive sedatives. The heart rate, respiratory rate, oxygen saturations, blood pressure, adequacy of pulmonary ventilation, and response to care were monitored throughout the procedure. The physical status of the patient was re-assessed after the procedure. After obtaining informed consent, the scope was passed under direct vision. Throughout the procedure, the patient's blood pressure, pulse, and oxygen saturations were monitored continuously. The Duodenoscope was introduced through the mouth, and advanced to the duodenum and used to inject contrast into the bile duct and ventral pancreatic duct. The ERCP was accomplished without difficulty. The patient tolerated the procedure well. Scope In: 2:36:02 PM Scope Out: 3:23:43 PM Total Procedure Duration Time 0 hours 47 minutes 41 seconds Findings: The operators school manager film was normal. The esophagus was successfully intubated under direct vision. The scope was advanced to a normal major papilla in the descending duodenum without detailed examination of the pharynx, larynx and associated structures, and upper GI tract. The upper GI tract was grossly normal. The ventral pancreatic duct was deeply cannulated with the short-nosed traction sphincterotome. Contrast was injected. I personally interpreted the bile duct and pancreatic duct images. There was brisk flow of contrast through the ducts. Image quality was adequate. Contrast extended to the pancreatic duct. Opacification of the pancreatic duct in the body of the pancreas was successful. The maximum diameter of the ducts was 3 mm. The entire opacified area was normal. The entire opacified area was dilated moderately and diffusely. A long 0.025 inch Jagwire was passed into the ventral pancreatic duct. A 2 mm ventral pancreatic sphincterotomy was made with a traction (standard) sphincterotome using ERBE electrocautery. There was no post-sphincterotomy bleeding. To discover objects, the biliary tree was swept with a 6 mm balloon starting at the main pancreatic duct. Debris was swept from the duct. A long 0.025 inch Jagwire was passed into the biliary tree. The short-nosed traction sphincterotome was passed over the guidewire and the bile duct was then deeply cannulated. Contrast was injected. Opacification of the entire opacified area and entire biliary tree was successful. The maximum diameter of the ducts was 10 mm. The lower third of the main bile duct contained filling defect(s) thought to be a stone. Opacification of the entire biliary tree was successful. The maximum diameter of the ducts was 10 mm. The lower third of the main bile duct contained a single localized stenosis 6 mm in length. The entire biliary tree was diffusely dilated, secondary to a stricture. The largest diameter was 10 mm. A long cystic duct originated in the middle third of the main bile duct. Opacification of the entire biliary tree was successful. The maximum diameter of the ducts was 7 mm. The lower third of the main bile duct contained one stone, which was 6 mm in diameter. The biliary tree was swept with a 12 mm balloon starting at the bifurcation. Sludge was swept from the duct. All stones were removed. One 10 Fr by 7 cm temporary stent was placed 5 cm into the common bile duct. Bile flowed through the stent. The stent was in good position. Impression: - A long cystic duct was seen on the cholangiogram. - A filling defect consistent with a stone was seen on the cholangiogram. - A single localized biliary stricture was found in the lower third of the main bile duct. The stricture was indeterminate. - The entire biliary tree was dilated, secondary to a stricture. - Moderate dilatation of the entire opacified area of the pancreatic duct was found diffusely. - Choledocholithiasis was found. Complete removal was accomplished by balloon extraction. - A pancreatic sphincterotomy was performed. - The biliary tree was swept and debris was found. - The biliary tree was swept. - One temporary stent was placed into the common bile duct. Procedure Code(s): --- Professional --- 17618, Endoscopic retrograde cholangiopancreatography (ERCP); with placement of endoscopic stent into biliary or pancreatic duct, including pre- and post-dilation and guide wire passage, when performed, including sphincterotomy, when performed, each stent [id number], 51, Endoscopic retrograde cholangiopancreatography (ERCP); with removal of calculi/debris from biliary/pancreatic duct(s) 03376, 59, Endoscopic retrograde cholangiopancreatography (ERCP); with sphincterotomy/papillotomy 97521, 26, Combined endoscopic catheterization of the biliary and pancreatic ductal systems, radiological supervision and interpretation CPT copyright 2021 [employer]. All rights reserved. The codes documented in this report are preliminary and upon is architect review may be revised to meet current compliance requirements. Curtis Gorman DO 05/01/2024 3:48:11 PM This report has been signed electronically. Number of Addenda: 0 Note Initiated On: 05/01/2024 1:55 PM
--- NOTE | 2024-05-01 15:48 | OP.CCLET_ITS ---
05/01/2024 Fransisca Wright Re : ERCP procedure for Oliverio Oshea Dear Kyle This procedure was performed on Wednesday, May 01, 2024. My impressions and recommendations are as follows: Impressions : - A long cystic duct was seen on the cholangiogram. - A filling defect consistent with a stone was seen on the cholangiogram. - A single localized biliary stricture was found in the lower third of the main bile duct. The stricture was indeterminate. - The entire biliary tree was dilated, secondary to a stricture. - Moderate dilatation of the entire opacified area of the pancreatic duct was found diffusely. - Choledocholithiasis was found. Complete removal was accomplished by balloon extraction. - A pancreatic sphincterotomy was performed. - The biliary tree was swept and debris was found. - The biliary tree was swept. - One temporary stent was placed into the common bile duct. Recommendations : My findings are described in the full procedure note, which is enclosed. If I can be of further assistance, please feel free to contact me at . Sincerely, Curtis Gorman, 05/01/2024 3:48:11 PM This report has been signed electronically.
--- NOTE | 2024-05-01 15:49 | CON.PCM.GI_ITS ---
HPI Consult Data Date of Consult: 05/01/24 HPI Narrative Reason for Consultation: Biliary obstruction, jaundice and pancreatitis HPI Narrative: AVELINA BULL, is a 79 M who presented to the emergency department at [facility] on 04/30/2024 with a chief complaint of abdominal pain, nausea, and vomiting. Patient has never had anything like this previously. He stated he had a cheeseburger and fries for dinner last night and then started having nausea and vomiting as well as abdominal pain. He reports his abdominal pain is all over but he seems to be point tender in the epigastrium and right upper quadrant area. He does still have his gallbladder. He states he is passing flatus and not having any abnormal bowel movements. He has had no hematemesis but does indicate he has vomited about 4-5 times since last evening. He denies any fever or chills. He states it is a little bit harder for him to breathe right now due to the abdominal pain and he does have COPD at baseline. Patient does have a history of UC for which she takes medications. Vital signs on presentation showed temperature of 97.7, heart rate 62, initial blood pressure was 215/78, oxygen saturation was 98% on room air. Repeat blood pressure was 173/61 and oxygen saturation did drop to 84% on 2 L and he subsequently been uptitrated to 4 L nasal cannula sats between 90 to 96%. CBC was unremarkable except for new thrombocytopenia. His platelet count was 139,001 previously and normal. INR is pending as patient is on chronic anticoagulation. Chemistry panel showed normal electrolytes, slightly elevated BUN and serum creatinine but not markedly elevated from baseline. LFTs were dramatically elevated with an ALT of 226, AST of 266, and total bilirubin of 250. His alk phos was normal at 99. Lipase was 1086 and his triglyceride level is pending. CT of the abdomen pelvis shows possible early pancreatitis, stable perinephritic fat stranding, fat-containing umbilical hernia and possible wall thickening of the descending and sigmoid colon. [facility] Medical History Wears glasses Wears partial dentures Cancer Arthritis High cholesterol Tremor of both hands Ulcerated colon Shortness of breath on exertion Leg cramps History of stress test History of echocardiogram Cardiology follow-up encounter History of atrial fibrillation Ulcerative colitis COVID-19 Anxiety Diabetes Former smoker CPAP (continuous positive airway pressure) dependence Sleep apnea Congestive heart failure (CHF) Atrial fibrillation 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, adult half-way current use of 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 Chronic diastolic heart failure Paroxysmal atrial flutter Type 2 diabetes mellitus SOB (shortness of breath) Home Medications ?Medication ?Instructions ?Recorded ?Last Taken ?Type potassium chloride 20 mEq 20 meq PO DAILY Low potassium 09/27/15 08/08/22 History tablet,extended release(part/cryst) atorvastatin 40 mg tablet 40 mg PO QHS Cholesterol 08/20/16 08/07/22 History metformin 500 mg tablet 500 mg PO BID Diabetes 05/09/19 08/08/22 History metoprolol tartrate 100 mg tablet 100 mg PO BID Afib 02/17/21 05/01/24 History fexofenadine 180 mg tablet 180 mg PO DAILY PRN PRN Allergic 01/11/22 08/08/22 History Symptoms prazosin 2 mg capsule 2 mg PO BID bp 08/08/22 05/01/24 History vedolizumab 300 mg intravenous 300 mg IV .per order 03/21/23 Unknown History solution (Entyvio) empagliflozin 10 mg tablet 10 mg PO DAILY 04/24/23 Unknown History (Jardiance) furosemide 20 mg tablet 20 mg PO DAILY PRN Edema 06/20/23 Unknown History flecainide 50 mg tablet 50 mg PO Q12H #180 TABLETS 11/16/23 05/01/24 Rx budesonide 3 mg 9 mg (3 x 3 mg) PO QAM #90 ea 04/11/24 05/01/24 Rx capsule,delayed,extended release tiotropium 2.5 mcg-olodaterol 2.5 2 puff inhalation DAILY SOB #3 ea 04/22/24 Unknown Rx mcg/actuation mist for inhalation (Stiolto Respimat) azathioprine 75 mg tablet (Azasan) 150 mg PO DAILY colitis 04/30/24 05/01/24 History warfarin 2.5 mg tablet 2.5 mg PO TUWETHFRSA blood thinner 04/30/24 Unknown History warfarin 5 mg tablet 5 mg PO SUMO BLOOD THINNER 04/30/24 Unknown History Allergy/AdvReac Type Severity Reaction Status Date / Time amlodipine Allergy Severe Rash Verified 05/01/24 13:49 Penicillins Allergy Hives Verified 05/01/24 13:49 azithromycin AdvReac Diarrhea Verified 05/01/24 13:49 celecoxib (From Celebrex) AdvReac RECTAL Verified 05/01/24 13:49 BLEEDING Family History Mother Colon cancer Heart disease Father CAD (coronary artery disease) Sister Diabetes Brother Heart disease Diabetes Surgical History History of intraocular lens implant History of knee surgery History of bilateral hip replacements History of radiofrequency ablation procedure for cardiac arrhythmia (~08/11/15) Social History Smoking Status: Former smoker how long ago did patient quit smokin + years alcohol intake: never substance use type: does not use caffeine: Yes Type: coffee Number of servings: 3 ROS Constitutional Constitutional: Denies anorexia, change in weight, chills, fatigue, fever(s), malaise, night sweats, weakness or other Eyes Eyes: Denies blurry vision, change in eye color, change in vision, discharge from eye(s), double vision, erythema, eye pain, loss of vision or other ENT HEENT: Denies abnormal hearing, dysphagia, ear pain, epistaxis, headache(s), hearing loss, nasal congestion, nasal discharge, post nasal drip, sinus pressure, sore throat or other Cardiovascular Cardiovascular: Denies chest pain, claudication, dyspnea on exertion, edema, lightheadedness, orthopnea, palpitations, paroxysmal nocturnal dyspnea, rapid heart rate, syncope or other Respiratory/Chest Respiratory/Chest: Reports dyspnea, shortness of breath at rest and shortness of breath with exertion; Denies cough, excessive phlegm production, hemoptysis, productive cough, wheezing or other Gastrointestinal Gastrointestinal: Reports abdominal pain, nausea and vomiting; Denies coffee ground emesis, constipation, diarrhea, dyspepsia, hematemesis, hematochezia, loose stools, melena or other Genitourinary Genitourinary: Denies burning urination, difficulty urinating, dysuria, hematuria, nocturia, urinary frequency, urinary hesitancy, urinary incontinence, urinary urgency or other Musculoskeletal Musculoskeletal: Reports back pain; Denies arthralgias, joint pain, joint stiffness, joint swelling, myalgias, neck pain or other Neurologic Neurologic: Denies abnormal gait, abnormal speech, confusion, disequilibrium, dizziness, focal weakness, headache(s), numbness, paresthesias, seizure-like activity, seizures, syncope, tingling, tremor(s) or other Psychiatric Psychiatric: Denies anxiety, depression, homicidal ideation, suicidal ideation or other Endocrine Endocrinology: Denies change in body appearance, cold intolerance, excessive sweating, heat intolerance, polydipsia, polyuria or other Hematologic/Lymphatic Hematologic/Lymphatic: Denies anemia, easy bleeding, easy bruising, lymphadenopathy or other Allergic/Immunologic Allergic/Immunologic: Denies rhinitis, hives, eczemia, asthma or other Physical Exam Const alert, oriented x3, no apparent distress and well nourished; Negative for average body habitus or healthy appearing General Appearance: cooperative HEENT normocephalic and head/scalp atraumatic HEENT Narrative: Dentition is poor, Mallampati is 4, no thrush, mild hearing loss, mucous membranes are dry Eyes PERRL, EOMs intact bilaterally and conjunctivae normal Eyes Narrative: No significant scleral icterus Neck no lymphadenopathy and supple Neck Narrative: Trachea midline, no noted thyroid enlargement Resp normal respiratory effort, no retractions, no use of accessory muscles and clear to auscultation bilaterally Resp Narrative: Diminished but clear Auscultation: Negative for rales, rhonchi or wheezes Cardio regular rate, regular rhythm, S1 normal heart sound, S2 normal heart sound, no murmurs, no rub, no gallops and no clicks GI normal to inspection, nondistended, normoactive bowel sounds and soft to palpation GI Narrative: Guarding with palpation especially noted at right upper quadrant and epigastrium Extremity Extremity Narrative: Chronic trace bilateral lower extremity edema with skin changes consistent with venous stasis, no cyanosis or clubbing Skin skin turgor normal, no jaundice, no petechiae and no mottling Neuro oriented x3, moves all extremities and no focal motor deficits Speech: speech normal Psych affect normal Psych Narrative: Patient is very pleasant, eye contact is good and patient interacts appropriately Lab / Micro Data 05/01/24 06:13 05/01/24 06:13 Labs: Laboratory Results - last 24 hr 04/30/24 17:17: POC Glucose 183 H 05/01/24 00:54: POC Glucose 125 H 05/01/24 06:13: WBC 8.4, RBC 4.67, Hgb 14.3, Hct 46.2, MCV 98.9 H, MCH 30.6, M CHC 31.0 L, RDW Std Deviation 52.8 H, RDW Coeff of Jadon 14.6, Plt Count 117 L, MPV 10.2, Immature Gran % (Auto) 0.100, Neut % (Auto) 82.3 H, Lymph % (Auto) 9.0 L, [place] % (Auto) 8.0, Eos % (Auto) 0.5, Baso % (Auto) 0.1, Absolute Neuts (auto) 6.9, Absolute Lymphs (auto) 0.75 L, Nucleated RBC % 0, Sodium 141, Potassium 3.9, Chloride 110 H, Carbon Dioxide 25.0, Anion Gap 6, BUN 18, Creatinine 1.10, Estim Creat Clear Calc 75.73, Est GFR (MDRD) Af Amer 83, Est GFR (MDRD) Non-Af 69, BUN/Creatinine Ratio 16.4, Glucose 117 H, Hemoglobin A1c 8.2 H, Calcium 8.3 L, Phosphorus 3.7, Magnesium 2.3, Total Bilirubin 4.90 H, AST 104 H, ALT 230 H, Alkaline Phosphatase 121 H, Total Protein 6.7, Albumin 2.9 L, Globulin 3.8, A lbumin/Globulin Ratio 0.8 L 05/01/24 08:24: POC Glucose 127 H 05/01/24 11:34: POC Glucose 136 H Imaging Radiology Impression MRCP 05/01/24 08:16 IMPRESSION: 1. Pericholecystic fluid raising the possibility of acute cholecystitis. 2. Normal common bile duct. 3. Mild acute pancreatitis. 4. Mild hepatosplenomegaly. Electronically Signed: Jordan Zapata MD at 10:43 EDT , Assessment & Plan Assessment/Plan (1) Acute pancreatitis: (2) Nausea & vomiting: (3) Abdominal pain: (4) Thrombocytopenia: (5) Transaminitis: (6) Hyperbilirubinemia: PLAN: Plan 79-year-old gentleman known to GI service because history of ulcerative colitis who presents with nausea/vomiting/abdominal pain secondary to acute pancreatitis -Concern for gallstone pancreatitis as he has elevated LFTs and hyperbilirubinemia -Check MRCP Transaminitis/hyperbilirubinemia -Concern for gallstone pancreatitis -Patient still has his gallbladder -It is painful and right upper quadrant with positive Oliver sign -Check MRCP as noted History of ulcerative colitis -Follows with GI -Continue home azathioprine -Continue home budesonide Patient will undergo ERCP. He was explained alternatives, risk, benefits include not withstanding bleeding, infection, sepsis, perforation, need for emergent urgent . He will have an ASA of 3. Charges/Coding Visit Charges Inpatient E&M: 21950 Init Hosp L3
--- NOTE | 2024-05-01 15:51 | PCM.POST.ANE ---
Anesthesia: Postop Eval I Current Vital Signs Temperature: 97.3 F Pulse Rate: 70 Blood Pressure: 132/68 Respiratory Rate: 22 Pulse Ox: 100 Oxygen Delivery Method: Nasal Cannula Oxygen Flow Rate (L/min): 2 Assessment Airway patent: Yes Spontaneous unlabored respirations: Yes Mental status: Awake nausea: No Vomiting: No Anesthesia Complication: No Fluid Hydration Crystalloid volume administer (ml): 400 Total IV fluid infused: 400 Progress Note Anesthesia document: Postop Eval 1 completed: Yes
--- NOTE | 2024-05-01 16:38 | PCM.POSTANE2 ---
Anesthesia Postop Eval I Sum Postop Eval Completion status Anesthesia document: Postop Eval 1 completed: Yes Anesthesia Postop Eval I Summary Anesthesia Postop Eval I Summary: Anesthesia Postop Eval I: Assessment Summary Airway patent Yes 05/01/24 15:53 [email or web address] Spontaneous unlabored Yes 05/01/24 15:53 [email or web address] respirations Mental status Awake 05/01/24 15:53 [email or web address] nausea No 05/01/24 15:53 [email or web address] Vomiting No 05/01/24 15:53 [email or web address] Anesthesia Postop Eval I: Fluid Summary Crystalloid volume administer 400 05/01/24 15:53 [email or web address] (ml) Colloids volume administered ( ml) Blood Product volume administered (ml) Total IV fluid infused 400 05/01/24 15:53 [email or web address] Anesthesia Postop Eval I: Summary Notes Anesthesia Complication No 05/01/24 15:53 [email or web address] Anesthesia Complication Comment: Post-operative progress note Anesthesia: Postop Eval II Evaluation Mental status: Awake and Calm Pain Level: 1 nausea: No Vomiting: No Complications Anesthesia Complication: No
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
[2024-05-01 17:28] LABS: Bedside Glucose 149 mg/dL (74-106)
[2024-05-01] MEDS: BENZOCAINE/MENTHOL 1 LOZENGE MUCOUS MEM (22:27)
[2024-05-02] VITALS (9 sets, daily range): BP systolic 130–149; BP diastolic 48–69; PULSE 54–81; RESP 15–23; TEMP 36.6–36.8; O2SAT 86–97
[2024-05-02 00:33] LABS: Bedside Glucose 119 mg/dL (74-106)
[2024-05-02] MEDS: 0.9% Normal Saline (1000mL) 1,000 ML 100 ML IV (03:02)
[2024-05-02] MEDS: BENZOCAINE/MENTHOL 1 LOZENGE MUCOUS MEM ×2 (06:23→10:50)
--- NOTE | 2024-05-02 06:33 | NURSING ---
Pt taken off bipap. Pt placed on ra after 10 minutes pt drop 88%. 02 at 2lnc appilied.
[2024-05-02 06:38] LABS: Hematocrit 47.5 % (40-54); Hemoglobin 14.4 g/dL (13.0-16.5); Mean Corp Hgb Conc 30.3 g/dL (32-36); Mean Corpuscular Hgb 30.5 pg (27.0-32.0); Mean Corpuscular Volume 100.6 fL (80-94); Mean Platelet Vol. 9.7 fl (6.2-12.0); Platelet Count 106 K/mm3 (150-450); RBC Distribution Width CV 14.3 % (11.6-14.6); RBC Distribution Width SD 53.3 fl (35.1-43.9); Red Blood Count 4.72 M/mm3 (4.6-6.2); White Blood Count 6.9 K/mm3 (4.4-11.0)
[2024-05-02 07:03] LABS: ALB/GLOB Ratio 0.7 RATIO (0.9-2.4); AST(SGOT) 47 U/L (15-37); Alanine Aminotransfer ALT/SGPT 155 U/L (16-61); Albumin, Serum 2.8 g/dL (3.2-5.0); Alkaline Phosphatase 112 U/L (45-117); Anion Gap 3 (5-15); BUN 17 mg/dL (7-18); Chloride 111 mmol/L (98-107); Creatinine, Serum 1.06 mg/dL (0.70-1.30); EST Glomerular Filtration Rate 72 mL/min (>60); Est Glom Filt Rate - Afr Amer 87 mL/min (>60); Estimated Creatinine Clearance 78.59 ml/min; Glucose 139 mg/dL (74-106); Potassium 3.8 mmol/L (3.5-5.1); Protein, Total 6.8 g/dL (6.4-8.2); Sodium Level 138 mmol/L (136-145)
[2024-05-02 07:06] LABS: Bedside Glucose 157 mg/dL (74-106)
[2024-05-02] MEDS: Ipratropium/Albuterol Sulfate 3 ML AMPUL.NEB INHALATION ×2 (07:15→14:17)
[2024-05-02] MEDS: Empagliflozin 10 MG Tablet PO (09:02)
[2024-05-02] MEDS: Budesonide 3 MG CAPSULE.EC 9 MG PO (09:02)
[2024-05-02] MEDS: Metoprolol Tartrate 100 MG Tablet PO (09:02)
[2024-05-02] MEDS: azaTHIOprine 50 MG Tablet 150 MG PO (09:02)
[2024-05-02] MEDS: Flecainide 100 MG Tablet 50 MG PO (09:03)
[2024-05-02] MEDS: Prazosin HCl 1 MG Capsule 2 MG PO (09:03)
[2024-05-02] MEDS: Nystatin Powder 15gm Bottle 1 APPLIC TOPICAL (09:03)
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
--- NOTE | 2024-05-02 11:29 | PCM.DC.SUM ---
Providers Date of Admission: 04/30/24 Date of Discharge: 05/02/24 Primary Care Physician: EDER Helms Consultations 05/01/24 08:20 Consult: Gastroenterology Routine Consulting Provider: [facility] Reason for Consult: Suspected choledocholithiasis EMERGENT Consult: No MD Notified: Yes Date Notified: 05/01/24 Time Notified: 08:20 Method of Notification: Text Reason For Visit: ACUTE PANCREATITIS Diagnosis Discharge Diagnosis (1) Acute pancreatitis: Status: Acute Code(s): K85.90 - Acute pancreatitis without necrosis or infection, unspecified (2) Nausea & vomiting: Status: Acute Code(s): R11.2 - Nausea with vomiting, unspecified (3) Abdominal pain: Status: Acute Code(s): R10.9 - Unspecified abdominal pain (4) Thrombocytopenia: Status: Acute Code(s): D69.6 - Thrombocytopenia, unspecified (5) Transaminitis: Status: Acute Code(s): R74.01 - Elevation of levels of liver transaminase levels (6) Hyperbilirubinemia: Status: Acute Code(s): E80.6 - Other disorders of bilirubin metabolism Medications at Discharge Home Medications potassium chloride 20 mEq tablet,extended release(part/cryst) 20 meq PO DAILY Low potassium 09/27/15 atorvastatin 40 mg tablet 40 mg PO QHS Cholesterol 08/20/16 metformin 500 mg tablet 500 mg PO BID Diabetes 05/09/19 metoprolol tartrate 100 mg tablet 100 mg PO BID Afib 02/17/21 fexofenadine 180 mg tablet 180 mg PO DAILY PRN PRN Allergic Symptoms 01/11/22 prazosin 2 mg capsule 2 mg PO BID bp 08/08/22 vedolizumab 300 mg intravenous solution (Entyvio) 300 mg IV .per order 03/21/23 empagliflozin 10 mg tablet (Jardiance) 10 mg PO DAILY 04/24/23 furosemide 20 mg tablet 20 mg PO DAILY PRN Edema 06/20/23 flecainide 50 mg tablet 50 mg PO Q12H #180 TABLETS 11/16/23 budesonide 3 mg capsule,delayed,extended release 9 mg (3 x 3 mg) PO QAM #90 ea 04/11/24 tiotropium 2.5 mcg-olodaterol 2.5 mcg/actuation mist for inhalation (Stiolto Respimat) 2 puff inhalation DAILY SOB #3 ea 04/22/24 azathioprine 75 mg tablet (Azasan) 150 mg PO DAILY colitis 04/30/24 warfarin 2.5 mg tablet 2.5 mg PO TUWETHFRSA blood thinner 04/30/24 warfarin 5 mg tablet 5 mg PO SUMO BLOOD THINNER 04/30/24 cefdinir 300 mg capsule 300 mg PO BID #24 caps 05/02/24 metronidazole 500 mg tablet 500 mg PO Q8H #36 tabs 05/02/24 Hospital Course Operations ERCP Procedures - (MRCP/CT abdomen pelvis) Summary of Care Provided Minutes Spent on Discharge: 39 Hospital Course: AVELINA BULL, is a 79 M who presented to the emergency department at [facility] on 04/30/2024 with a chief complaint of abdominal pain, nausea, and vomiting. Patient has never had anything like this previously. He stated he had a cheeseburger and fries for dinner last night and then started having nausea and vomiting as well as abdominal pain. He reports his abdominal pain is all over but he seems to be point tender in the epigastrium and right upper quadrant area. He does still have his gallbladder. He states he is passing flatus and not having any abnormal bowel movements. He has had no hematemesis but does indicate he has vomited about 4-5 times since last evening. He denies any fever or chills. He states it is a little bit harder for him to breathe right now due to the abdominal pain and he does have COPD at baseline. Patient does have a history of UC for which she takes medications and follows with GI. Vital signs on presentation showed temperature of 97.7, heart rate 62, initial blood pressure was 215/78, oxygen saturation was 98% on room air. Repeat blood pressure was 173/61 and oxygen saturation did drop to 84% on 2 L and he subsequently been uptitrated to 4 L nasal cannula sats between 90 to 96%. CBC was unremarkable except for new thrombocytopenia. His platelet count was 139,001 previously and normal. INR is pending as patient is on chronic anticoagulation. Chemistry panel showed normal electrolytes, slightly elevated BUN and serum creatinine but not markedly elevated from baseline. LFTs were dramatically elevated with an ALT of 226, AST of 266, and total bilirubin of 250. His alk phos was normal at 99. Lipase was 1086 and his triglyceride level is pending. CT of the abdomen pelvis shows possible early pancreatitis, stable perinephritic fat stranding, fat-containing umbilical hernia and possible wall thickening of the descending and sigmoid colon. In the emergency department he was treated with IV antibiotics, IV fluids, pain medication and antiemetics. On the day after admission his bilirubin pancho to 4.90 AST went up to 230 and ALT was 104. His MRCP was done and was fairly unremarkable except for some pericholecystic fluid and redemonstration of mild acute pancreatitis. However given his rising bilirubin and the fact that his transaminases were not improving he was taken for ERCP. With his ERCP, a long cystic duct was noted on the cholangiogram and a filling defect consistent with stone was seen on the cholangiogram. A single localized biliary stricture was found in the lower third of the main bile duct that was indeterminate in nature. The entire biliary tree was dilated secondary to the stricture. Moderate dilation of the entire opacified area of the pancreatic duct was found diffusely. Choledocholithiasis was identified and complete removal utilizing balloon extraction was performed along with a pancreatic sphincterotomy as well as sweeping of the biliary tree and 1 temporary stent was placed in the common bile duct. He was returned to the floor and did well postoperatively. He was able to tolerate a regular diet and his transaminases dramatically improved. His abdominal pain and nausea had resolved. Bilirubin at the time of discharge was back down to 2.5, AST had almost normalized at 47 and ALT was down to 155. Alk phos had normalized. With his improvement he was able to be discharged home in stable condition. He will continue oral antibiotics with Omnicef and Flagyl at discharge. We were unable to use ciprofloxacin and Flagyl due to him being on flecainide and Coumadin and he has a penicillin allergy. He will continue this for another 12 days after discharge he has a follow-up appointment to see Dr. Gorman in the office on 05/28/2024 at 10:30 in the morning. I have also asked him to follow-up with general surgery and gave him a referral to see Dr. Kinsey in the outpatient setting to be evaluated for possible cholecystectomy. He is also to follow-up with his primary care physician within the next 1 to 2 weeks. Prescriptions for his antibiotics were sent to local pharmacy. 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 He is able to tolerate breakfast without any problems. Abdominal pain has resolved. Const alert, oriented x3, no apparent distress, no limitations and well nourished; Negative for average body habitus or healthy appearing Constitutional Narrative: Morbidly obese, white male, sitting up in a chair at the bedside, appears comfortable, nontoxic, at bedside, has just finished breakfast General Appearance: cooperative, comfortable, well kempt and well developed Orientation / Consciousness: awake, oriented to person, oriented to place and oriented to time Exam Limitations: no limitations Nutritional Appearance: obese HEENT normocephalic, head/scalp atraumatic and moist oral mucous membranes HEENT Narrative: Mallampati 3, no thrush Eyes PERRL, EOMs intact bilaterally and conjunctivae normal Eyes Narrative: No scleral icterus Neck no lymphadenopathy and supple Neck Narrative: Trachea midline, no noted thyroid enlargement, neck is short and thick Resp normal respiratory effort, no retractions, no use of accessory muscles and clear to auscultation bilaterally Resp Narrative: Diminished but clear Auscultation: Negative for rales, rhonchi or wheezes Cardio regular rate, regular rhythm, S1 normal heart sound, S2 normal heart sound, no murmurs, no rub, no gallops and no clicks GI normal to inspection, nondistended, normoactive bowel sounds, soft to palpation and non-tender GI Narrative: Tenderness is resolved Extremity Extremity Narrative: Chronic trace bilateral lower extremity edema with skin changes consistent with venous stasis, no cyanosis or clubbing Skin no rashes or lesions noted, no wounds, skin turgor normal, no jaundice, no petechiae and no mottling Neuro oriented x3, moves all extremities and no focal motor deficits Speech: speech normal Psych affect normal Psych Narrative: Patient is very pleasant, eye contact is good and patient interacts appropriately Weight / BMI Weight Weight: 135.8 kg Body Mass Index (BMI) 44.1 ABG / Lab / Microbiology Data 05/02/24 06:26 05/02/24 06:26 Laboratory: Laboratory Results - last 24 hr 05/01/24 06:13: Hemoglobin A1c 8.2 H 05/01/24 11:34: POC Glucose 136 H 05/01/24 17:11: POC Glucose 149 H 05/01/24 22:08: POC Glucose 119 H 05/02/24 06:26: WBC 6.9, RBC 4.72, Hgb 14.4, Hct 47.5, MCV 100.6 H, MCH 30.5, MCHC 30.3 L, RDW Std Deviation 53.3 H, RDW Coeff of Jadon 14.3, Plt Count 106 L, MPV 9.7, Sodium 138, Potassium 3.8, Chloride 111 H, Carbon Dioxide 24.0, Anion Gap 3 L, BUN 17, Creatinine 1.06, Estim Creat Clear Calc 78.59, Est GFR (MDRD) Af Amer 87, Est GFR (MDRD) Non-Af 72, BUN/Creatinine Ratio 16.0, Glucose 139 H, Calcium 8.0 L, Total Bilirubin 2.50 H, AST 47 H, ALT 155 H, Alkaline Phosphatase 112, Total Protein 6.8, Albumin 2.8 L, Globulin 4.0, Albumin/Globulin Ratio 0.7 L 05/02/24 06:36: POC Glucose 157 H Radiography Diagnostic Testing: Radiology Impression MRCP 05/01/24 08:16 IMPRESSION: 1. Pericholecystic fluid raising the possibility of acute cholecystitis. 2. Normal common bile duct. 3. Mild acute pancreatitis. 4. Mild hepatosplenomegaly. Electronically Signed: Jordan Zapata MD at 10:43 EDT , Endo Retro Cholangiopancreatogram 05/01/24 14:15 IMPRESSION: Fluoroscopic guided ERCP Electronically Signed: Fahad Pires MD at 21:23 EDT , D/C Instructions Discharge Diet: Low fat / Low cholesterol and 1800 Calorie Control Diet Discharge Activity: Return to Normal Activity Meaningful Use Info Meaningful Use Meaningful Use Diagnoses (Choose all that apply): None applicable Ischemic Stroke Statin Dosing Therapy Reference: STATIN DOSE THERAPY REFERENCE: * Patients > 75 years receive moderate or high dose statin therapy. * Patients 75 years or YOUNGER should receive HIGH intensity statin dose unless contraindicated. You will be required to document reason for non-treatment if statin daily dose does not meet guidelines. HIGH DOSE STATIN THERAPY DAILY Atorvastatin > than or = to 40 mg Rosuvastatin > than or = to 20 mg Amlodipine + Atorvastatin > than or = to 2.5/40 mg Ezetimibe + Simvastatin 10/80 mg Simvastatin 80mg Discharge Plan Admission Admit Date/Time: 04/30/24 08:10 Primary Reason for Your Visit: Abdominal pain/nausea Attending Provider: Sarah Major Primary Care Provider: Fransisca Wright Instructions Additional Instructions / Restrictions: 1. Please call the surgeon listed below tomorrow to set up an appointment to be seen. Tell them that you were admitted to the hospital and a stone was found in your bile ducts which was removed and you were asked to follow-up with surgery to be evaluated to have your gallbladder removed 2. Please take your antibiotics with food. Both can make you nauseated. Do not take on empty stomach Discharge Orders/Prescriptions Prescriptions: New cefdinir 300 mg capsule 300 mg PO BID Qty: 24 0RF metronidazole 500 mg tablet 500 mg PO Q8H Qty: 36 0RF Continued metformin 500 mg tablet 500 mg PO BID furosemide 20 mg tablet 20 mg PO DAILY PRN (Reason: Edema) Rx Instructions: TAKE AN EXTRA 20MG prn FOR INCREASES SOB/ SWELLING Entyvio 300 mg recon soln 300 mg IV .per order Rx Instructions: 300 mg intravenously; as directed potassium chloride 20 MEQ tablet 20 meq PO DAILY Patient Comments: supplement atorvastatin 40 MG tablet 40 mg PO QHS Patient Comments: cholesterol metoprolol tartrate 100 mg tablet 100 mg PO BID fexofenadine 180 mg tablet 180 mg PO DAILY PRN PRN (Reason: Allergic Symptoms) prazosin 2 mg capsule 2 mg PO BID Jardiance 10 mg tablet 10 mg PO DAILY azathioprine [Azasan] 75 mg tablet 150 mg PO DAILY warfarin 5 mg tablet 5 mg PO SUMO warfarin 2.5 mg tablet 2.5 mg PO Protocol: Dose Management Condition: Monday Dose/Route: 5 mg Instruction: 2 x 2.5 mg tablets Condition: Monday Dose/Route: 2.5 mg Instruction: 1 x 2.5 mg tablet Condition: Monday Dose/Route: 2.5 mg Instruction: 1 x 2.5 mg tablet Condition: Monday Dose/Route: 2.5 mg Instruction: 1 x 2.5 mg tablet Condition: Dose/Route: 2.5 mg Instruction: 1 x 2.5 mg tablet Condition: Monday Dose/Route: 2.5 mg Instruction: 1 x 2.5 mg tablet Condition: Monday Dose/Route: 5 mg Instruction: 2 x 2.5 mg tablets Protocol Text: Adjustment Start Date: Monday04/16/24 INR Value: 2.8 INR Date: 04/16/24 Recheck Date: 05/16/24 Rx Instructions: 2.5MG TUWETHFRSA, 5MG SUMO flecainide 50 mg tablet 50 mg PO Q12H Qty: 180 3RF budesonide 3 mg capsule,delayed,extend.release 9 mg PO QAM Qty: 90 2RF Stiolto Respimat 2.5-2.5 mcg/actuation mist 2 puff inhalation DAILY Qty: 3 3RF Referrals / Follow Up: Curtis Gorman DO [Med Staff - Active Staff] - 05/28/24 10:30 am (follow up in 4 weeks. Office was notified and is to call you to make appointment. if you don't hear from them in 24hrs please call to schedule) Nia Kinsey MD [Med Staff - Active Staff] - Within 2 Weeks Fransisca Wright PA [Primary Care Provider] - Within 2 Weeks Disposition Disposition (needs filled in before D/C Order can be placed): Home, Self Care Charges/Coding Visit Charges Inpatient E&M: 96797 Disch Hosp >30min
[2024-05-02 11:38] LABS: Bedside Glucose 161 mg/dL (74-106)
[2024-05-02] MEDS: Insulin Lispro 100 UNIT/ML INSULN.PEN SC (11:59)
--- NOTE | 2024-05-02 14:09 | CASEMGMT ---
Social Work- Pt confirms he has completed a living will and health care POA naming , Em.? Pt notified that documents are not on file at [facility] and SW requested they be brought in for scanning into the EMR. NOEL Ochoa
--- NOTE | 2024-05-02 17:44 | EX.PCM.PN.GI ---
Subjective Subjective Patient denies any abdominal pain. He is not have any chest pain or shortness of breath. Objective Data Objective Data Vital Signs: Vital Signs Temp Pulse Resp BP Pulse Ox O2 Del Method O2 Flow Rate 98.3 F 66 18 130/53 H 92 Room Air 2 05/02/24 14:05/02/24 14:05/02/24 14:05/02/24 14:05/02/24 14:30 05/02/24 14:05/02/24 14:30 FiO2 30 05/02/24 02:49 Oxygen Flow Rate (L/min) [ 2 AMBULATING with Oxygen #1] Oxygen Flow Rate (L/min) 2 Oxygen Delivery Method Room Air Weight: 299 lb 6.204 oz Body Mass Index (BMI) 44.1 Intake & Output: Intake and Output for Last 24 Hours 05/01/24 05/02/24 05/03/24 23:59 23:59 23:59 Intake Total 1559 / 1559 1915 / 1915 Output Total 800 / 1500 700 / 700 Balance 759 / 59 1215 / 1215 Lab / Micro Data 05/02/24 06:26 05/02/24 06:26 Physical Exam Narrative Patient states he is feeling much better overall. He is able to tolerate breakfast without any problems. Abdominal pain has resolved. Const alert, oriented x3, no apparent distress, no limitations and well nourished; Negative for average body habitus or healthy appearing Constitutional Narrative: Morbidly obese, white male, sitting up in a chair at the bedside, appears comfortable, nontoxic, at bedside, has just finished breakfast General Appearance: cooperative, comfortable, well kempt and well developed Orientation / Consciousness: awake, oriented to person, oriented to place and oriented to time Exam Limitations: no limitations Nutritional Appearance: obese HEENT normocephalic, head/scalp atraumatic and moist oral mucous membranes HEENT Narrative: Mallampati 3, no thrush Eyes PERRL, EOMs intact bilaterally and conjunctivae normal Eyes Narrative: No scleral icterus Neck no lymphadenopathy and supple Neck Narrative: Trachea midline, no noted thyroid enlargement, neck is short and thick Resp normal respiratory effort, no retractions, no use of accessory muscles and clear to auscultation bilaterally Resp Narrative: Diminished but clear Auscultation: Negative for rales, rhonchi or wheezes Cardio regular rate, regular rhythm, S1 normal heart sound, S2 normal heart sound, no murmurs, no rub, no gallops and no clicks GI normal to inspection, nondistended, normoactive bowel sounds, soft to palpation and non-tender GI Narrative: Tenderness is resolved Extremity Extremity Narrative: Chronic trace bilateral lower extremity edema with skin changes consistent with venous stasis, no cyanosis or clubbing Skin no rashes or lesions noted, no wounds, skin turgor normal, no jaundice, no petechiae and no mottling Neuro oriented x3, moves all extremities and no focal motor deficits Speech: speech normal Psych affect normal Psych Narrative: Patient is very pleasant, eye contact is good and patient interacts appropriately Assessment & Plan Assessment/Plan (1) Acute pancreatitis: (2) Nausea & vomiting: (3) Abdominal pain: (4) Thrombocytopenia: (5) Transaminitis: (6) Hyperbilirubinemia: PLAN: Plan 79-year-old gentleman known to GI service because history of ulcerative colitis who presents with nausea/vomiting/abdominal pain secondary to acute pancreatitis -Concern for gallstone pancreatitis as he has elevated LFTs and hyperbilirubinemia -Check MRCP Transaminitis/hyperbilirubinemia -Concern for gallstone pancreatitis -Patient still has his gallbladder -It is painful and right upper quadrant with positive Oliver sign -He will undergo ERCP because of biliary stricture and likely choledocholithiasis. He was explained alternatives, risk, benefits include not withstanding bleeding, infection, sepsis, perforation, need for return to . Have an ASA of 3. History of ulcerative colitis -Follows with our GI group -Continue home azathioprine -Continue home budesonide
== END 2024-05-02 15:00 | disposition home or self-care (01) | DRG 439 ==
LOC: ED 03:17 → MS2 08:34 → MS3 19:26
PROVIDERS: Anesthesiology; Internal Medicine Gastroenterology; Admitting Provider Internal Medicine; Emergency Provider Surgery; PCP Physician Assistant; Visit Provider Internal Medicine
PROC: 0FC98ZZ Extirpation of Matter from Common Bile Duct, Via Natural or Artificial Opening Endoscopic (ICD-10-PCS; CPT 43260; principal; 2024-05-01 14:45)
DX: K85.90 Acute pancreatitis without necrosis or infection, unspecified (principal); C34.90 Malignant neoplasm of unspecified part of unspecified bronchus or lung; I13.0 Hypertensive heart and chronic kidney disease with heart failure and stage 1 through stage 4 chronic kidney disease, or unspecified chronic kidney disease; N13.8 Other obstructive and reflux uropathy; I50.32 Chronic diastolic (congestive) heart failure; Z68.41 Body mass index [BMI] 40.0-44.9, adult; K80.71 Calculus of gallbladder and bile duct without cholecystitis with obstruction; D69.6 Thrombocytopenia, unspecified; E11.22 Type 2 diabetes mellitus with diabetic chronic kidney disease; J44.9 Chronic obstructive pulmonary disease, unspecified; N18.32 Chronic kidney disease, stage 3b; K76.0 Fatty (change of) liver, not elsewhere classified; I48.0 Paroxysmal atrial fibrillation; E66.01 Morbid (severe) obesity due to excess calories; E80.6 Other disorders of bilirubin metabolism; K80.20 Calculus of gallbladder without cholecystitis without obstruction; E11.65 Type 2 diabetes mellitus with hyperglycemia; E78.5 Hyperlipidemia, unspecified; G47.33 Obstructive sleep apnea (adult) (pediatric); K42.9 Umbilical hernia without obstruction or gangrene; Z79.84 Long term (current) use of oral hypoglycemic drugs; Z80.0 Family history of malignant neoplasm of digestive organs; Z87.891 Personal history of nicotine dependence; R74.01 Elevation of levels of liver transaminase levels; Z86.16 Personal history of COVID-19; N40.1 Benign prostatic hyperplasia with lower urinary tract symptoms; Z66 Do not resuscitate; Z79.01 Long term (current) use of 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s; Z87.19 Personal history of other diseases of the digestive system
CPT/HCPCS: 36415; 74177; 74181; 74330; 76000; 80053; 81001; 82962; 83036; 83690; 83735; 84100; 84478; 85025; 85027; 85610; 88108; 88161; 88305; 88313; 93005; 94640; 94660; 94668; 94762; 97802; 99252; 99284; J7030; J7120; Q9967; A4216; G0463; J2405

== ENCOUNTER 2024-05-06 14:22 | Outpatient (RCR) | payer MEDICARE, SELFPAY ==
[2024-04-07 03:00] VITALS: BMI 44.6
[2024-04-16 13:16] LABS: INR Fingerstick 2.8; Prothrombin Time Fingerstick 28.7 SEC (11.7-14.9)
[2024-05-06 14:33] LABS: INR Fingerstick 1.8
== END 2024-05-06 18:00 | disposition home or self-care (01) ==
LOC: MTLAB 14:22
PROVIDERS: PCP Physician Assistant; Referring Provider Nurse Practitioner Family; Visit Provider Nurse Practitioner Family
DX: I48.0 Paroxysmal atrial fibrillation (principal); Z79.01 Long term (current) use of 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s
CPT/HCPCS: 36416; 85610

== ENCOUNTER 2024-05-20 13:41 | Outpatient (CLI) | payer MEDICARE, SELFPAY ==
[2024-05-20] MEDS: 0.9% NaCl Peripheral Flush Adult/Peds IV (13:53)
[2024-05-20 13:54] VITALS: BP 110/55; PULSE 62; RESP 18; TEMP 35.6; O2SAT 92
[2024-05-20] MEDS: Vedolizumab 300 MG in 0.9% Normal Saline (250mL Bag) 250 ML 500 MG IV (14:23)
[2024-05-20] MEDS: 0.9% Normal Saline (100mL Bag) 100 ML 15 ML IV (14:23)
[2024-05-20 15:07] VITALS: BP 131/57; PULSE 51; RESP 16; TEMP 36.2; O2SAT 95
== END 2024-05-20 23:59 | disposition home or self-care (01) ==
LOC: MEDOUTP 13:41
PROVIDERS: PCP Physician Assistant; Referring Provider Internal Medicine Gastroenterology; Visit Provider Internal Medicine Gastroenterology
DX: K51.90 Ulcerative colitis, unspecified, without complications (principal)
CPT/HCPCS: 96365; J7050; A4216; J3380

== ENCOUNTER 2024-05-31 11:35 | Outpatient (RCR) | payer MEDICARE, SELFPAY ==
[2024-05-07 03:29] VITALS: BMI 44.6
[2024-05-13 14:50] LABS: INR Fingerstick 6.3
[2024-05-13 15:54] LABS: Prothrombin Time (Protime)PT. 55.7 SECONDS (11.7-14.9)
[2024-05-13 16:32] LABS: International Normalized Ratio 6.4
[2024-05-20 07:46] LABS: INR Fingerstick 2.1; Prothrombin Time Fingerstick 21.9 SEC (11.7-14.9)
[2024-05-31 11:54] LABS: INR Fingerstick 2.7; Prothrombin Time Fingerstick 27.7 SEC (11.7-14.9)
== END 2024-05-31 18:00 | disposition home or self-care (01) ==
LOC: MTLAB 11:35
PROVIDERS: PCP Physician Assistant; Referring Provider Nurse Practitioner Family; Visit Provider Nurse Practitioner Family
DX: I48.0 Paroxysmal atrial fibrillation (principal); Z79.01 Long term (current) use of 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s
CPT/HCPCS: 36416; 85610

== ENCOUNTER 2024-06-26 14:00 | Outpatient (RCR) | payer MEDICARE, SELFPAY ==
[2024-06-06 21:19] VITALS: BMI 44.6
[2024-06-26 14:09] LABS: INR Fingerstick 1.9; Prothrombin Time Fingerstick 20.9 SEC (11.7-14.9)
== END 2024-07-06 18:00 | disposition home or self-care (01) ==
LOC: MTLAB 14:00
PROVIDERS: PCP Physician Assistant; Referring Provider Nurse Practitioner Family; Visit Provider Nurse Practitioner Family
DX: I48.0 Paroxysmal atrial fibrillation (principal); Z79.01 Long term (current) use of 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s
CPT/HCPCS: 36416; 85610

== ENCOUNTER 2024-07-11 10:09 | Day surgery (SDC) | payer MEDICARE, SELFPAY ==
[2024-07-11] VITALS (7 sets, daily range): BP systolic 155–178; BP diastolic 60–88; PULSE 57–74; RESP 16–18; TEMP 36.6–36.8; O2SAT 92–97; BMI 44.5
[2024-07-11 10:15] LABS: INR Fingerstick 1.2; Prothrombin Time Fingerstick 14.5 SEC (11.7-14.9)
[2024-07-11 11:20] LABS: Bedside Glucose 150 mg/dL (74-106)
--- NOTE | 2024-07-11 11:30 | FLU_PTH ---
PATIENT: AVELINA BULL LOC: EN U#:[id number] AGE/SX: 79/M ROOM: RE07/11/[address]: Dr. Curtis Gorman DO : 1945 BED: DIS: 07/11/2024 SPEC #: [id number] RECD: 07/11/24 13:01 STATUS: BLAZE REJarret #: [id number] HERIBERTO: 07/11/24 11:[address]: Curtis Gorman DEPT: CYTOLOGY RECD BY: Ema Perez ENTERED: 07/11/24 13:34 SP TYPE: Fluid OTHR DR: EDER Helms Tissues: Bile duct, NOS Procedures: Special Stain Group II Surgery Specimen Level III Surgery Specimen Level IV Cytospin Fluid HEADER OPERATION: ERCP with stent removal PRE-OP DIAGNOSIS: Choledocholithiasis TISSUE SUBMITTED: Biliary stent for cytology DIAGNOSIS CYTOLOGY Biliary stent fluid for cytology (cytospin and cellblock): Negative for malignant cells. See comment. AM. 07/12/2024 COMMENT The specimen is virtually acellular. Clinical correlation is suggested. CYTOLOGY STUDY Slides are reviewed. CYTOLOGY GROSS Received is 12cm stent with <1 ml of thick green fluid labeled with the patient's name and and designated per the requisition as Biliary stent. Submitted for cytology preparation including cell block. Mr 07/11/2024 TC:5 CPT: 98934,21337
--- NOTE | 2024-07-11 11:44 | PCM.PRE.AN2 ---
ASA Classification* ASA Classification ASA Classification: 3 Assessment & Plan Anesthesia* Anesthesia Assessment Anesthesia Assessment: Discussed sedation and/or anesthesia options, risks, benefits, and alternatives with patient/parents/legal guardian/POA. Questions invited. The patient/parents/legal guardian/POA seems to understand and agrees to proceed with anesthesia plan. Reviewed the physical assessment, medical history, allergy history and patient home medications list prior to surgery/procedure/anesthetic and documented any changes. Performed airway and anesthesia risk assessments. Anesthesia Type Anesthesia Type: General History Source History Obtained from:: Patient and Chart Anesthesia Focused Assessment* Temperature: 98.2 F Pulse Rate: 57 Blood Pressure: 171/88 Respiratory Rate: 18 Pulse Ox: 97 Oxygen Delivery Method: Room Air Airway Assessment Mouth opens: >3 cm Mallampati Score: I Teeth Condition: Caps/Crowns (Patient has several crowns. They are all tight.) and Partial (Patient has bottom partial. It is out.) Neck Range of motion (ROM): Limited ROM Focused Labs Anesthesia Preop lab: CBC WBC 6.9 K/mm3 (4.4-11.0) 05/02/24 06:26 RBC 4.72 M/mm3 (4.6-6.2) 05/02/24 06:26 Hgb 14.4 g/dL (13.0-16.5) 05/02/24 06:26 Hct 47.5 % (40-54) 05/02/24 06:26 Plt Count 106 K/mm3 (150-450) L 05/02/24 06:26 CHEMISTRY Potassium 3.8 mmol/L (3.5-5.1) 05/02/24 06:26 Sodium 138 mmol/L (136-145) 05/02/24 06:26 Magnesium 2.3 mg/dL (1.6-2.6) 05/01/24 06:13 Phosphorus 3.7 mg/dL (2.5-4.9) 05/01/24 06:13 BUN 17 mg/dL (7-18) 05/02/24 06:26 Creatinine 1.06 mg/dL (0.70-1.30) 05/02/24 06:26 Glucose 139 mg/dL (74-106) H 05/02/24 06:26 POC Glucose 150 mg/dL (74-106) H 07/11/24 10:50 TSH 1.87 uIU/mL (0.358-3.74) 11/01/21 05:04 COAG PT 55.7 SECONDS (11.7-14.9) H 05/13/24 14:36 INR 6.3 H* 05/13/24 15:23 Pre-Assessment Diagnosis/Proposed Procedure Planned Operative Procedure(s): ERCP - STENT REMOVAL Anesthesia History Anesthesia History - raise driller: Anesthesia History - raise driller Hx Hospitalization Yes: GALLBLADDER/ 07/08/24 12:58 PANCREATITIS Any Problems With Anesthesia No 07/08/24 12:58 Cholinesterase deficiency No 07/08/24 12:58 You/Your Family Experience No 07/08/24 12:58 fever (hyperthermia) with Relationship Recent Exposure to Contagious No 07/11/24 10:57 Disease Does patient have nerve No 07/08/24 12:58 stimulator Patient instructed to have device shut off --Does patient have Pacemaker No 07/11/24 10:57 or ICD? When Was Last Pacemaker Check QUESTION #4 FULL TEXT: You/Your Family Experience fever (hyperthermia) with Anesthesia Last Oral Intake Last Oral intake: Last Oral Intake NPO since 00:00 07/11/24 10:57 Meds taken in AM with sips of No 07/11/24 10:57 water? Meds patient instructed to take am of surgery PONV PONV - raise driller: PONV - raise driller Female No 07/08/24 12:58 HX of Motion Sickness No 07/08/24 12:58 HX of N/V After Surgery No 07/08/24 12:58 Non-Smoker Yes 07/08/24 12:58 Duration of Surgery greater No 07/08/24 12:58 than 60 minutes Number of Risk Factors 1 07/08/24 12:58 PONV Score Low Risk 07/08/24 12:58 Height & Weight Height & Weight: Anesthesia: Height & Weight Height 5 ft 9 in 07/11/24 10:57 Weight: 136.8 kg 07/11/24 10:57 Body Mass Index (BMI) 44.5 07/11/24 10:57 Respiratory Assessment Respiratory Assessment - raise driller: Respiratory Tract Infection Hx - raise driller Hx Respiratory Tract Infection No 07/08/24 12:58 Any additional information?: Yes Hx Respiratory Tract Infection: Yes (Patient has a chronic cough) STOP Sleep Apnea STOP Sleep Apnea - raise driller: STOP Sleep Apnea - raise driller Hx Hypertension Yes 07/08/24 12:58 Hx Sleep Apnea Yes 07/08/24 12:58 CPAP Yes 07/08/24 12:58 BIPAP No 07/08/24 12:58 Do you snore loudly (louder than talking or can be heard Do you often feel tired/ fatigued/ sleepy during daytime? Has anyone observed you stop breathing during sleep? STOP Results Positive 07/08/24 12:58 QUESTION #5 FULL TEXT : Do you snore loudly (louder than talking or can be heard through closed doors)? 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 Specify any problems Hx of Preganancy in last 3 N/A 07/08/24 12:58 Months Nurse Filling Out Transfusion VLEHMAN 07/08/24 12:58 & Questions: Date: 07/08/24 07/08/24 12:58 Time: 13:01 07/08/24 12:58 Patient unable to answer at this time (ie. confused, unrespo /Reproduction History /Reproductive History - raise driller: /Reproductive Hx- raise driller Hx Now Gestational Age (in weeks): EDC: Hx Hx Para Hx Section SAB Active Medications Active Medications: Current Medications Generic Name Dose Route Start Last Admin Trade Name Freq PRN Reason Stop Dose Admin Lactated Ringer's 1,000 mls @ 15 mls/hr 07/11/24 10:30 IV 07/16/24 23:49 .Q48H [facility] Protocol PFSH Medical History Hyperbilirubinemia Transaminitis Thrombocytopenia Obesity Wears glasses Wears partial dentures Cancer Arthritis High cholesterol Tremor of both hands Ulcerated colon Shortness of breath on exertion Leg cramps History of stress test History of echocardiogram Cardiology follow-up encounter History of atrial fibrillation 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 Ulcerative colitis Colitis Coagulopathy COVID-19 Anxiety Diabetes Former smoker CPAP (continuous positive airway pressure) dependence Sleep apnea Congestive heart failure (CHF) Atrial fibrillation 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, adult halfway current use of 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 Chronic diastolic heart failure Paroxysmal atrial flutter Type 2 diabetes mellitus SOB (shortness of breath) Home Medications ?Medication ?Instructions ?Recorded ?Last Taken ?Type potassium chloride 20 mEq 20 meq PO DAILY Low potassium 09/27/15 07/10/24 History tablet,extended release(part/cryst) atorvastatin 40 mg tablet 40 mg PO QHS Cholesterol 08/20/16 07/10/24 History metformin 500 mg tablet 500 mg PO BID Diabetes 05/09/19 07/10/24 History metoprolol tartrate 100 mg tablet 100 mg PO BID Afib 02/17/21 07/10/24 History fexofenadine 180 mg tablet 180 mg PO DAILY PRN PRN Allergic 01/11/22 07/10/24 History Symptoms prazosin 2 mg capsule 2 mg PO BID bp 08/08/22 07/10/24 History vedolizumab 300 mg intravenous 300 mg IV .per order 03/21/23 07/10/24 History solution (Entyvio) empagliflozin 10 mg tablet 10 mg PO DAILY 04/24/23 07/10/24 History (Jardiance) furosemide 20 mg tablet 20 mg PO DAILY PRN Edema 06/20/23 07/10/24 History flecainide 50 mg tablet 50 mg PO Q12H #180 TABLETS 11/16/23 07/10/24 Rx budesonide 3 mg 9 mg (3 x 3 mg) PO QAM #90 ea 04/11/24 07/10/24 Rx capsule,delayed,extended release tiotropium 2.5 mcg-olodaterol 2.5 2 puff inhalation DAILY SOB #3 ea 04/22/24 07/10/24 Rx mcg/actuation mist for inhalation (Stiolto Respimat) azathioprine 75 mg tablet (Azasan) 150 mg PO DAILY colitis 04/30/24 07/10/24 History warfarin 2.5 mg tablet 2.5 mg PO QDAY blood thinner #90 05/20/24 07/08/24 Rx tabs Allergy/AdvReac Type Severity Reaction Status Date / Time amlodipine Allergy Severe Rash Verified 07/11/24 10:56 Penicillins Allergy Hives Verified 07/11/24 10:56 azithromycin AdvReac Diarrhea Verified 07/11/24 10:56 celecoxib (From Celebrex) AdvReac RECTAL Verified 07/11/24 10:56 BLEEDING Family History Mother Colon cancer Heart disease Father CAD (coronary artery disease) Sister Diabetes Brother Heart disease Diabetes Surgical History History of ERCP History of intraocular lens implant History of knee surgery History of bilateral hip replacements History of radiofrequency ablation procedure for cardiac arrhythmia (~08/11/15) Social History Smoking Status: Former smoker how long ago did patient quit smokin + years alcohol intake: never substance use type: does not use caffeine: Yes Type: coffee Number of servings: 3 Review of Systems (Anesthesia) ROS Narrative System reviewed and no additional complaints, except as documented.
--- NOTE | 2024-07-11 11:49 | PCM.HP.STD ---
HPI - General General Date of Admission: 07/11/24 Date of Service: 07/11/24 Chief Complaint: ERCP with stent pull HPI Narrative AVELINA BULL, is a 79 M who presents for ERCP with stent pull. He is known to GI service because history of ulcerative colitis who presents with nausea/vomiting/abdominal pain secondary to acute pancreatitis. There was some concern for gallstone pancreatitis as he has elevated LFTs and hyperbilirubinemia We ordered an MRCP and it displayed choledocholithiasis and pancreatitis. There was concerned also for c gallstone pancreatitis. He underwent ERCP with stone removal and stent placement. He is coming in today for repeat ERCP with stent removal. 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 Ulcerative colitis Colitis Coagulopathy COVID-19 Anxiety Diabetes Former smoker CPAP (continuous positive airway pressure) dependence Sleep apnea Congestive heart failure (CHF) Atrial fibrillation 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, adult [facility] current use of 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 Chronic diastolic heart failure Paroxysmal atrial flutter Type 2 diabetes mellitus SOB (shortness of breath) Home Medications ?Medication ?Instructions ?Recorded ?Last Taken ?Type potassium chloride 20 mEq 20 meq PO DAILY Low potassium 09/27/15 07/10/24 History tablet,extended release(part/cryst) atorvastatin 40 mg tablet 40 mg PO QHS Cholesterol 08/20/16 07/10/24 History metformin 500 mg tablet 500 mg PO BID Diabetes 05/09/19 07/10/24 History metoprolol tartrate 100 mg tablet 100 mg PO BID Afib 02/17/21 07/10/24 History fexofenadine 180 mg tablet 180 mg PO DAILY PRN PRN Allergic 01/11/22 07/10/24 History Symptoms prazosin 2 mg capsule 2 mg PO BID bp 08/08/22 07/10/24 History vedolizumab 300 mg intravenous 300 mg IV .per order 03/21/23 07/10/24 History solution (Entyvio) empagliflozin 10 mg tablet 10 mg PO DAILY 04/24/23 07/10/24 History (Jardiance) furosemide 20 mg tablet 20 mg PO DAILY PRN Edema 06/20/23 07/10/24 History flecainide 50 mg tablet 50 mg PO Q12H #180 TABLETS 11/16/23 07/10/24 Rx budesonide 3 mg 9 mg (3 x 3 mg) PO QAM #90 ea 04/11/24 07/10/24 Rx capsule,delayed,extended release tiotropium 2.5 mcg-olodaterol 2.5 2 puff inhalation DAILY SOB #3 ea 04/22/24 07/10/24 Rx mcg/actuation mist for inhalation (Stiolto Respimat) azathioprine 75 mg tablet (Azasan) 150 mg PO DAILY colitis 04/30/24 07/10/24 History warfarin 2.5 mg tablet 2.5 mg PO QDAY blood thinner #90 05/20/24 07/08/24 Rx tabs Allergy/AdvReac Type Severity Reaction Status Date / Time amlodipine Allergy Severe Rash Verified 07/11/24 10:56 Penicillins Allergy Hives Verified 07/11/24 10:56 azithromycin AdvReac Diarrhea Verified 07/11/24 10:56 celecoxib (From Celebrex) AdvReac RECTAL Verified 07/11/24 10:56 BLEEDING Family History Mother Colon cancer Heart disease Father CAD (coronary artery disease) Sister Diabetes Brother Heart disease Diabetes Surgical History History of ERCP History of intraocular lens implant History of knee surgery History of bilateral hip replacements History of radiofrequency ablation procedure for cardiac arrhythmia (~08/11/15) Social History Smoking Status: Former smoker how long ago did patient quit smokin + years alcohol intake: never substance use type: does not use caffeine: Yes Type: coffee Number of servings: 3 ROS Constitutional Constitutional: Denies anorexia, change in weight, chills, fatigue, fever(s), malaise, night sweats, weakness or other Eyes Eyes: Denies blurry vision, change in eye color, change in vision, discharge from eye(s), double vision, erythema, eye pain, loss of vision or other ENT HEENT: Denies abnormal hearing, dysphagia, ear pain, epistaxis, headache(s), hearing loss, nasal congestion, nasal discharge, post nasal drip, sinus pressure, sore throat or other Cardiovascular Cardiovascular: Denies chest pain, claudication, dyspnea on exertion, edema, lightheadedness, orthopnea, palpitations, paroxysmal nocturnal dyspnea, rapid heart rate, syncope or other Respiratory/Chest Respiratory/Chest: Reports dyspnea, shortness of breath at rest and shortness of breath with exertion; Denies cough, excessive phlegm production, hemoptysis, productive cough, wheezing or other Gastrointestinal Gastrointestinal: Reports abdominal pain, nausea and vomiting; Denies coffee ground emesis, constipation, diarrhea, dyspepsia, hematemesis, hematochezia, loose stools, melena or other Genitourinary Genitourinary: Denies burning urination, difficulty urinating, dysuria, hematuria, nocturia, urinary frequency, urinary hesitancy, urinary incontinence, urinary urgency or other Musculoskeletal Musculoskeletal: Reports back pain; Denies arthralgias, joint pain, joint stiffness, joint swelling, myalgias, neck pain or other Neurologic Neurologic: Denies abnormal gait, abnormal speech, confusion, disequilibrium, dizziness, focal weakness, headache(s), numbness, paresthesias, seizure-like activity, seizures, syncope, tingling, tremor(s) or other Psychiatric Psychiatric: Denies anxiety, depression, homicidal ideation, suicidal ideation or other Endocrine Endocrinology: Denies change in body appearance, cold intolerance, excessive sweating, heat intolerance, polydipsia, polyuria or other Hematologic/Lymphatic Hematologic/Lymphatic: Denies anemia, easy bleeding, easy bruising, lymphadenopathy or other Allergic/Immunologic Allergic/Immunologic: Denies rhinitis, hives, eczemia, asthma or other Vital Signs Vital Signs Vital Signs: 07/11/24 10:57 07/11/24 10:57 Temperature 98.2 F Temperature Source Temporal Pulse Rate 57 L Respiratory Rate 18 Respiratory Pattern Normal Blood Pressure 171/88 H Blood Pressure Mean 115 Blood Pressure Source Monitor Blood Pressure Position Semi-Fowlers Blood Pressure Location Left Forearm Pulse Ox 97 Oxygen Delivery Method Room Air Weight Weight: 301 lb 9.478 oz Body Mass Index (BMI) 44.5 Physical Exam Narrative Patient states he is feeling much better overall. He is able to tolerate breakfast without any problems. Abdominal pain has resolved. Const alert, oriented x3, no apparent distress, no limitations and well nourished; Negative for average body habitus or healthy appearing Constitutional Narrative: Morbidly obese, white male, sitting up in a chair at the bedside, appears comfortable, nontoxic, at bedside, has just finished breakfast General Appearance: cooperative, comfortable, well kempt and well developed Orientation / Consciousness: awake, oriented to person, oriented to place and oriented to time Exam Limitations: no limitations Nutritional Appearance: obese HEENT normocephalic, head/scalp atraumatic and moist oral mucous membranes HEENT Narrative: Mallampati 3, no thrush Eyes PERRL, EOMs intact bilaterally and conjunctivae normal Eyes Narrative: No scleral icterus Neck no lymphadenopathy and supple Neck Narrative: Trachea midline, no noted thyroid enlargement, neck is short and thick Resp normal respiratory effort, no retractions, no use of accessory muscles and clear to auscultation bilaterally Resp Narrative: Diminished but clear Auscultation: Negative for rales, rhonchi or wheezes Cardio regular rate, regular rhythm, S1 normal heart sound, S2 normal heart sound, no murmurs, no rub, no gallops and no clicks GI normal to inspection, nondistended, normoactive bowel sounds, soft to palpation and non-tender GI Narrative: Tenderness is resolved Extremity Extremity Narrative: Chronic trace bilateral lower extremity edema with skin changes consistent with venous stasis, no cyanosis or clubbing Skin no rashes or lesions noted, no wounds, skin turgor normal, no jaundice, no petechiae and no mottling Neuro oriented x3, moves all extremities and no focal motor deficits Speech: speech normal Psych affect normal Psych Narrative: Patient is very pleasant, eye contact is good and patient interacts appropriately Results Lab / Micro Data Labs: Laboratory Results - last 24 hr 07/11/24 10:14: POC PT 14.5, INR 1.2 07/11/24 10:50: POC Glucose 150 H Assessment & Plan Assessment/Plan (1) Choledocholithiasis: PLAN: He will undergo repeat ERCP with stent will removal. He was explained alternatives, risk and benefits include not withstanding bleeding, infection, sepsis, perforation, need for charge and . He will have an ASA of 3.
--- NOTE | 2024-07-11 12:20 | RAD_ITS ---
EXAM: FL FLUOROSCOPY < 1 HOUR CLINICAL INDICATION: PAIN TECHNIQUE: Fluoroscopic images performed in multiple projections. Fluoroscopic guidance was provided by a physician. COMPARISON: 05/01/2024 FINDINGS: Endoscopy and cannulation were carried out by the referring physician. The common bile duct is opacified.. The last image demonstrates common bile duct stent. Images were obtained for documentation only. No radiologist was present. Fluoroscopy time: 60.2 seconds. Number of fluoroscopic images: 8. Radiation dose: 38.3 mGy. RAD/ERCP Biliary/Pancreas IMPRESSION: ERCP as described above. Electronically Signed: Jordan Palma MD at 17:23 EST ,
--- NOTE | 2024-07-11 12:47 | OP.ERCP_ITS ---
Patient Name: Oliverio Oshea Procedure Date: 07/11/2024 11:41 AM Date of : 1945 Age: 79 Procedure: ERCP Indications: Bile duct stone(s), Stent removal Providers: Curtis Gorman DO Referring MD: Fransisca Wright Medicines: Monitored Anesthesia Care Patient Profile: This is a 79 year old male. Refer to note in patient chart for documentation of history and physical. Patient has symptoms of chronic right upper quadrant abdominal pain and acute jaundice. Complications: No immediate complications. Procedure: Pre-Anesthesia Assessment: - Prior to the procedure, a History and Physical was performed, and patient medications and allergies were reviewed. The patient is competent. The risks and benefits of the procedure and the sedation options and risks were discussed with the patient. All questions were answered and informed consent was obtained. Patient identification and proposed procedure were verified by the physician in the pre-procedure area. Mental Status Examination: alert and oriented. Airway Examination: normal oropharyngeal airway and neck mobility. Respiratory Examination: clear to auscultation. CV Examination: normal. Prophylactic Antibiotics: The patient does not require prophylactic antibiotics. Prior Anticoagulants: The patient has taken no 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 or antiplatelet agents except for NSAID medication. ASA Grade Assessment: II - A patient with mild systemic disease. After reviewing the risks and benefits, the patient was deemed in satisfactory condition to undergo the procedure. The anesthesia plan was to use monitored anesthesia care (MAC). Immediately prior to administration of medications, the patient was re-assessed for adequacy to receive sedatives. The heart rate, respiratory rate, oxygen saturations, blood pressure, adequacy of pulmonary ventilation, and response to care were monitored throughout the procedure. The physical status of the patient was re-assessed after the procedure. After obtaining informed consent, the scope was passed under direct vision. Throughout the procedure, the patient's blood pressure, pulse, and oxygen saturations were monitored continuously. The Duodenoscope was introduced through the mouth, and advanced to the duodenum and used to inject contrast into the bile duct. The ERCP was accomplished without difficulty. The patient tolerated the procedure well. Scope In: 12:24:15 PM Scope Out: 12:37:31 PM Total Procedure Duration Time 0 hours 13 minutes 16 seconds Findings: The hris developer film was normal. The esophagus was successfully intubated under direct vision. The scope was advanced to a normal major papilla in the descending duodenum without detailed examination of the pharynx, larynx and associated structures, and upper GI tract. The upper GI tract was grossly normal. The bile duct was deeply cannulated with the short-nosed traction sphincterotome. Contrast was injected. I personally interpreted the bile duct images. There was brisk flow of contrast through the ducts. Image quality was adequate. Contrast extended to the main bile duct. Contrast extended to the cystic duct. Contrast extended to the gallbladder. Contrast extended to the bifurcation. Contrast extended to the hepatic ducts. Contrast extended to the entire biliary tree. Opacification of the entire opacified area, left and right hepatic ducts and all intrahepatic branches and entire biliary tree was successful. The maximum diameter of the ducts was 10 mm. The upper third of the main bile duct contained two stones, the largest of which was 6 mm in diameter. The main bile duct was diffusely dilated, with a stone causing an obstruction. The largest diameter was 10 mm. A long 0.025 inch Jagwire was passed into the biliary tree. A 5 mm biliary sphincterotomy was made with a traction (standard) sphincterotome using ERBE electrocautery. There was no post-sphincterotomy bleeding. The biliary tree was swept with a 12 mm balloon starting at the bifurcation. Sludge was swept from the duct. All stones were removed. One stent was removed from the biliary tree using a snare and sent for cytology. The stent was found to be partially occluded via the water column test. Impression: - The entire main bile duct was dilated, with a stone causing an obstruction. - Choledocholithiasis was found. Complete removal was accomplished by biliary sphincterotomy and balloon extraction. - A biliary sphincterotomy was performed. - The biliary tree was swept. - One stent was removed from the biliary tree. Procedure Code(s): --- Professional --- 64593, Endoscopic retrograde cholangiopancreatography (ERCP); with removal of foreign body(s) or stent(s) from biliary/pancreatic duct(s) 34319, Endoscopic retrograde cholangiopancreatography (ERCP); with removal of calculi/debris from biliary/pancreatic duct(s) 85392, Endoscopic retrograde cholangiopancreatography (ERCP); with sphincterotomy/papillotomy 45816, 26, Endoscopic catheterization of the biliary ductal system, radiological supervision and interpretation CPT copyright 2021 [employer]. All rights reserved. The codes documented in this report are preliminary and upon butcher apprentice review may be revised to meet current compliance requirements. Curtis Gorman DO 07/11/2024 12:47:07 PM This report has been signed electronically. Number of Addenda: 0 Note Initiated On: 07/11/2024 11:41 AM
--- NOTE | 2024-07-11 12:47 | OP.CCLET_ITS ---
07/11/2024 Fransisca Wright Re : ERCP procedure for Oliverio Oshea Dear Kyle This procedure was performed on July. My impressions and recommendations are as follows: Impressions : - The entire main bile duct was dilated, with a stone causing an obstruction. - Choledocholithiasis was found. Complete removal was accomplished by biliary sphincterotomy and balloon extraction. - A biliary sphincterotomy was performed. - The biliary tree was swept. - One stent was removed from the biliary tree. Recommendations : My findings are described in the full procedure note, which is enclosed. If I can be of further assistance, please feel free to contact me at . Sincerely, Curtis Gorman, 07/11/2024 12:47:07 PM This report has been signed electronically.
--- NOTE | 2024-07-11 12:55 | PCM.POST.ANE ---
Anesthesia: Postop Eval I Current Vital Signs Temperature: 98 F Pulse Rate: 74 Blood Pressure: 155/60 Respiratory Rate: 16 Pulse Ox: 97 Oxygen Delivery Method: Nasal Cannula Oxygen Flow Rate (L/min): 3 Assessment Airway patent: Yes Spontaneous unlabored respirations: Yes Mental status: Awake nausea: No Vomiting: No Anesthesia Complication: No Fluid Hydration Crystalloid volume administer (ml): 200 Total IV fluid infused: 200 Progress Note Anesthesia document: Postop Eval 1 completed: Yes
--- NOTE | 2024-07-12 07:49 | PCM.POSTANE2 ---
Anesthesia Postop Eval I Sum Postop Eval Completion status Anesthesia document: Postop Eval 1 completed: Yes Anesthesia Postop Eval I Summary Anesthesia Postop Eval I Summary: Anesthesia Postop Eval I: Assessment Summary Airway patent Yes 07/11/24 12:55 [email or web address] Spontaneous unlabored Yes 07/11/24 12:55 [email or web address] respirations Mental status Awake 07/11/24 12:55 [email or web address] nausea No 07/11/24 12:55 [email or web address] Vomiting No 07/11/24 12:55 [email or web address] Anesthesia Postop Eval I: Fluid Summary Crystalloid volume administer 200 07/11/24 12:55 [email or web address] (ml) Colloids volume administered ( ml) Blood Product volume administered (ml) Total IV fluid infused 200 07/11/24 12:55 [email or web address] Anesthesia Postop Eval I: Summary Notes Anesthesia Complication No 07/11/24 12:55 [email or web address] Anesthesia Complication Comment: Post-operative progress note Anesthesia: Postop Eval II Evaluation Mental status: Awake Pain Level: 0 nausea: No Vomiting: No
== END 2024-07-11 14:18 | disposition home or self-care (01) ==
LOC: EN 10:09 → AC 10:11
PROVIDERS: PCP Physician Assistant; Referring Provider Physician Assistant; Visit Provider Internal Medicine Gastroenterology
PROC: (CPT 43260; principal; 2024-07-11 11:10)
DX: K80.51 Calculus of bile duct without cholangitis or cholecystitis with obstruction (principal); I50.32 Chronic diastolic (congestive) heart failure; I48.91 Unspecified atrial fibrillation; E11.9 Type 2 diabetes mellitus without complications; E78.00 Pure hypercholesterolemia, unspecified; Z79.84 Long term (current) use of oral hypoglycemic drugs; Z87.891 Personal history of nicotine dependence; G47.30 Sleep apnea, unspecified; Z99.89 Dependence on other enabling machines and devices; Z79.899 Other long term (current) drug therapy; Z79.01 Long term (current) use of 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s; Z96.643 Presence of artificial hip joint, bilateral
CPT/HCPCS: 43262; 43264; 43275; 36416; 74330; 76000; 82962; 85610; 88108; 88304; 88305; 88313; A4216; J2405

== ENCOUNTER 2024-07-23 14:03 | Outpatient (CLI) | payer MEDICARE, SELFPAY ==
[2024-07-23 14:17] VITALS: BP 137/53; PULSE 64; RESP 16; O2SAT 93; BMI 44.3
[2024-07-23] MEDS: 0.9% NaCl Peripheral Flush Adult/Peds IV ×2 (14:27→14:57)
[2024-07-23] MEDS: Vedolizumab 300 MG in 0.9% Normal Saline (250mL Bag) 250 ML 500 MG IV (14:56)
[2024-07-23] MEDS: 0.9% NaCl IVPB Med Flush (250 mL) 15 ML IV (14:56)
[2024-07-23 15:41] VITALS: BP 134/35; PULSE 58; RESP 16; TEMP 36.3; O2SAT 95
== END 2024-07-23 23:59 | disposition home or self-care (01) ==
LOC: MEDOUTP 14:03
PROVIDERS: PCP Physician Assistant; Referring Provider Internal Medicine Gastroenterology; Visit Provider Internal Medicine Gastroenterology
DX: K51.90 Ulcerative colitis, unspecified, without complications (principal)
CPT/HCPCS: 96365; A4216; J3380

== ENCOUNTER 2024-07-29 13:38 | Outpatient (RCR) | payer MEDICARE, SELFPAY ==
[2024-07-07 05:03] VITALS: BMI 44.6
[2024-07-29 14:12] LABS: INR Fingerstick 3.1; Prothrombin Time Fingerstick 31.7 SEC (11.7-14.9)
== END 2024-07-29 18:00 | disposition home or self-care (01) ==
LOC: MTLAB 13:38
PROVIDERS: PCP Physician Assistant; Referring Provider Nurse Practitioner Family; Visit Provider Nurse Practitioner Family
DX: I48.0 Paroxysmal atrial fibrillation (principal); Z79.01 Long term (current) use of 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s
CPT/HCPCS: 36416; 85610

== ENCOUNTER → 2024-08-22 | Outpatient (CLI) | payer MEDICARE, SELFPAY ==
[2024-08-22 15:28] LABS: Absolute Lymphocyte Count 2.15 X10^3/uL (0.83-4.51); Absolute Neutrophil Count 4.5 X10^3/uL (2.0-7.7); Basophil# 0.04 X10^3/uL; Basophil% 0.5 % (0-1); Hematocrit 41.4 % (40-54); Lymphocyte # 2.15 X10^3/ul (0.83-4.51); Lymphocyte % 25.7 % (19-41); Mean Corp Hgb Conc 31.4 g/dL (32-36); Mean Corpuscular Hgb 31.3 pg (27.0-32.0); Mean Corpuscular Volume 99.8 fL (80-94); Mean Platelet Vol. 9.6 fl (6.2-12.0); Monocyte# 0.61 X10^3/uL; Monocyte% 7.3 % (0-10); NRBC Flagged by Analyzer 0 % (0-5); Neutrophil # 4.54 X10^3/uL (2.7-7.7); Neutrophil % 54.3 % (47-70); Platelet Count 237 K/mm3 (150-450); RBC Distribution Width CV 14.1 % (11.6-14.6); RBC Distribution Width SD 51.5 fl (35.1-43.9); RET-HE 28.1 pg (30-35); Red Blood Count 4.15 M/mm3 (4.6-6.2); Reticulocyte Count 2.58 % (0.5-1.5); White Blood Count 8.4 K/mm3 (4.4-11.0)
[2024-08-22 15:45] LABS: Erythrocyte Sedimentation Rate 47 mm/hr (0-20)
[2024-08-22 18:06] LABS: ALB/GLOB Ratio 0.7 RATIO (0.9-2.4); AST(SGOT) 12 U/L (15-37); Alanine Aminotransfer ALT/SGPT 14 U/L (16-61); Albumin, Serum 2.8 g/dL (3.2-5.0); Alkaline Phosphatase 68 U/L (45-117); Anion Gap 8 (5-15); BUN 7 mg/dL (7-18); BUN/Creat Ratio 6.1 RATIO (10-20); Chloride 107 mmol/L (98-107); Creatinine, Serum 1.15 mg/dL (0.70-1.30); EST Glomerular Filtration Rate 65 mL/min (>60); Est Glom Filt Rate - Afr Amer 79 mL/min (>60); Ferritin 115 ng/mL (26-388); Globulin 3.9 g/dL (2.2-4.2); Glucose 127 mg/dL (74-106); Iron 43 ug/dL (65-175); Iron Binding Capacity,Total 283 ug/dL (250-450); LDH 196 U/L (87-241); Protein, Total 6.7 g/dL (6.4-8.2); Sodium Level 140 mmol/L (136-145)
[2024-08-27 15:07] LABS: Albumin 3.2 g/dL (2.9-4.4); Alpha-1-Globulins 0.2 g/dL (0.0-0.4); Alpha-2-Globulins 0.8 g/dL (0.4-1.0); Gamma Globulin 0.9 g/dL (0.4-1.8); IMMUNOFIXATION RESULT,S Comment: (.); Immunoglobulin A 288 mg/dL (61-437); Immunoglobulin G 977 mg/dL (603-1613); Immunoglobulin M 249 mg/dL (15-143)
[2024-08-28 08:09] LABS: Calprotectin, Stool 5000 ug/g (0-120); Fats, Neutral Normal (.); Fats, Total Normal (.)
== END | disposition home or self-care (01) ==
LOC: MTLAB 13:52
PROVIDERS: PCP Physician Assistant; Referring Provider Internal Medicine Gastroenterology; Visit Provider Internal Medicine Gastroenterology
DX: R19.7 Diarrhea, unspecified (principal); K58.9 Irritable bowel syndrome, unspecified; D64.9 Anemia, unspecified
CPT/HCPCS: 80053; 82274; 82705; 82728; 82784; 83540; 83550; 83615; 83630; 83993; 84165; 85025; 85045; 85652; 86140; 86334; 87070; 87177; 87209; 87329; 87493

== ENCOUNTER → 2024-08-23 | Outpatient (CLI) | payer MEDICARE, SELFPAY | END | disposition home or self-care (01) | LOC: LABSPEC 13:29 | PROVIDERS: PCP Physician Assistant; Visit Provider Internal Medicine Gastroenterology | DX: Z00.00 Encounter for general adult medical examination without abnormal findings (principal) ==

== ENCOUNTER 2024-08-24 08:57 | Emergency (ER) | payer MEDICARE, SELFPAY ==
[2024-08-24 09:00] VITALS: BP 128/46; PULSE 94; RESP 23; TEMP 36.9; O2SAT 93; BMI 45.6
[2024-08-24 09:02] VITALS: BP 128/46; PULSE 94; RESP 22; TEMP 36.9; O2SAT 91
[2024-08-24 09:34] LABS: Absolute Lymphocyte Count 0.73 X10^3/uL (0.83-4.51); Absolute Neutrophil Count 6.6 X10^3/uL (2.0-7.7); Basophil# 0.03 X10^3/uL; Basophil% 0.4 % (0-1); Eosinophil# 0.62 X10^3/uL; Eosinophils% 7.4 % (0-5); Hematocrit 42.4 % (40-54); Hemoglobin 13.6 g/dL (13.0-16.5); Lymphocyte # 0.73 X10^3/ul (0.83-4.51); Lymphocyte % 8.8 % (19-41); Mean Corp Hgb Conc 32.1 g/dL (32-36); Mean Corpuscular Hgb 31.1 pg (27.0-32.0); Mean Platelet Vol. 9.3 fl (6.2-12.0); Monocyte% 3.6 % (0-10); NRBC Flagged by Analyzer 0 % (0-5); Neutrophil # 6.62 X10^3/uL (2.7-7.7); Neutrophil % 79.4 % (47-70); Platelet Count 209 K/mm3 (150-450); RBC Distribution Width CV 14.1 % (11.6-14.6); RBC Distribution Width SD 50.3 fl (35.1-43.9); Red Blood Count 4.37 M/mm3 (4.6-6.2); White Blood Count 8.3 K/mm3 (4.4-11.0)
[2024-08-24 09:49] LABS: Bacteria 0 SEEN /hpf (None Seen); Mucous, Urine 0 SEEN /hpf (<or=2+); Red Blood Cells-Urine 0 SEEN /hpf (0-5); Squamous Epithelial Cells - UA 0 SEEN /hpf (0-5); White Blood Cells 0 SEEN /hpf (0-5)
[2024-08-24 09:51] LABS: Color, Urine Yellow (Yellow); Glucose, Dipstick 1000 mg/dl (Normal); Ketone-Dipstick 15 mg/dl (Negative); Leukocyte Esterase-Dipstick Negative /ul (Negative); Nitrite-Dipstick Negative (Negative); Occult Blood-Urine 10 /ul (Negative); Protein-Dipstick 15 mg/dl (Negative); Urine Bilirubin Dipstick Negative (Negative); Urine Clarity Clear (Clear); Urine Urobilinogen Normal (Normal)
[2024-08-24 10:02] LABS: AST(SGOT) 13 U/L (15-37); Alanine Aminotransfer ALT/SGPT 11 U/L (16-61); Albumin, Serum 2.9 g/dL (3.2-5.0); Alkaline Phosphatase 66 U/L (45-117); Anion Gap 7 (5-15); BUN 8 mg/dL (7-18); BUN/Creat Ratio 6.3 RATIO (10-20); Bilirubin, Direct 0.47 mg/dL (0.00-0.30); Calcium,Total 8.2 mg/dL (8.5-10.1); Chloride 108 mmol/L (98-107); Creatinine, Serum 1.26 mg/dL (0.70-1.30); EST Glomerular Filtration Rate 59 mL/min (>60); Est Glom Filt Rate - Afr Amer 71 mL/min (>60); Estimated Creatinine Clearance 67.29 ml/min; Globulin 3.8 g/dL (2.2-4.2); Glucose 149 mg/dL (74-106); Lipase 16 U/L (13-75); Potassium 3.7 mmol/L (3.5-5.1); Protein, Total 6.7 g/dL (6.4-8.2); Sodium Level 140 mmol/L (136-145)
[2024-08-24 10:13] VITALS: O2SAT 86; O2SAT 95
--- NOTE | 2024-08-24 11:00 | RAD_ITS ---
STUDY: X-RAY CHEST REASON FOR EXAM: Male, 79 years old. cough TECHNIQUE: Single AP portable view of the chest. COMPARISON: August 09, 2022 FINDINGS: 1. No new consolidation or infiltrates 2. 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 Stable surgical clips in the right upper lobe 4. No pneumothorax or pleural effusion 5. Normal heart size 6. Stable mediastinum and osseous structures There is no demonstrated abnormality of the visualized soft tissue structures of the upper abdomen. RAD/Chest 1 View (Portable) IMPRESSION: Degenerative changes, as described above. No demonstrated acute cardiopulmonary process. Electronically Signed: Faizan Mendiola MD at 11:42 EST ,
--- NOTE | 2024-08-24 11:29 | EX.ED.DYSGE1 ---
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 Ulcerative colitis Colitis Coagulopathy COVID-19 Anxiety Diabetes Former smoker CPAP (continuous positive airway pressure) dependence Sleep apnea Congestive heart failure (CHF) Atrial fibrillation 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, adult [facility] current use of 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 Chronic diastolic heart failure Paroxysmal atrial flutter Type 2 diabetes mellitus SOB (shortness of breath) Home Medications ?Medication ?Instructions ?Recorded ?Last Taken ?Type potassium chloride 20 mEq 20 meq PO DAILY Low potassium 09/27/15 07/10/24 History tablet,extended release(part/cryst) atorvastatin 40 mg tablet 40 mg PO QHS Cholesterol 08/20/16 07/10/24 History metformin 500 mg tablet 500 mg PO BID Diabetes 05/09/19 07/10/24 History metoprolol tartrate 100 mg tablet 100 mg PO BID Afib 02/17/21 07/10/24 History fexofenadine 180 mg tablet 180 mg PO DAILY PRN PRN Allergic 01/11/22 07/10/24 History Symptoms prazosin 2 mg capsule 2 mg PO BID bp 08/08/22 07/10/24 History vedolizumab 300 mg intravenous 300 mg IV .per order 03/21/23 07/10/24 History solution (Entyvio) empagliflozin 10 mg tablet 10 mg PO DAILY 04/24/23 07/10/24 History (Jardiance) furosemide 20 mg tablet 20 mg PO DAILY PRN Edema 06/20/23 07/10/24 History flecainide 50 mg tablet 50 mg PO Q12H #180 TABLETS 11/16/23 07/10/24 Rx budesonide 3 mg 9 mg (3 x 3 mg) PO QAM #90 ea 04/11/24 07/10/24 Rx capsule,delayed,extended release tiotropium 2.5 mcg-olodaterol 2.5 2 puff inhalation DAILY SOB #3 ea 04/22/24 07/10/24 Rx mcg/actuation mist for inhalation (Stiolto Respimat) azathioprine 75 mg tablet (Azasan) 150 mg PO DAILY colitis 04/30/24 07/10/24 History warfarin 2.5 mg tablet 2.5 mg PO QDAY blood thinner #90 05/20/24 07/08/24 Rx tabs Allergy/AdvReac Type Severity Reaction Status Date / Time amlodipine Allergy Severe Rash Verified 08/24/24 09:03 Penicillins Allergy Hives Verified 08/24/24 09:03 azithromycin AdvReac Diarrhea Verified 08/24/24 09:03 celecoxib (From Celebrex) AdvReac RECTAL Verified 08/24/24 09:03 BLEEDING Family History Mother Colon cancer Heart disease Father CAD (coronary artery disease) Sister Diabetes Brother Heart disease Diabetes Surgical History History of ERCP History of intraocular lens implant History of knee surgery History of bilateral hip replacements History of radiofrequency ablation procedure for cardiac arrhythmia (~08/11/15) Social History Smoking Status: Former smoker how long ago did patient quit smokin + years alcohol intake: never substance use type: does not use caffeine: Yes Type: coffee Number of servings: 3 EXAM Physical Exam Const Vital Signs: 08/24/24 09:00 08/24/24 09:02 08/24/24 10:13 Temperature 98.5 F 98.5 F Temperature Source Oral Oral Pulse Rate 94 94 Respiratory Rate 23 H 22 H Blood Pressure 128/46 H 128/46 H Blood Pressure Mean 73 73 Pulse Ox 93 91 86 Oxygen Delivery Method Room Air Room Air Room Air Oxygen Flow Rate (L/min) 08/24/24 10:13 08/24/24 11:32 08/24/24 11:55 Temperature 98.6 F Temperature Source Pulse Rate 98 Respiratory Rate 18 Blood Pressure 128/76 H Blood Pressure Mean 93 Pulse Ox 95 95 93 Oxygen Delivery Method Nasal Cannula Room Air Oxygen Flow Rate (L/min) 2 MDM MDM MDM Narrative Medical decision making narrative: Differential diagnosis includes but not limited to pneumonia UTI viral syndrome anemia electrolyte abnormalities Patient's white count is 8.3 with 79.4 neutrophils. Hemoglobin 13.6 platelet count is 209. BMP shows normal sodium potassium creatinine 1.26. Patient does have an elevated total bilirubin which is been an known issue in the past. Lipase is 16 urinalysis is negative. COVID influenza RSV swabs were negative. My independent interpretation of the chest x-ray is no acute process. Clinically not see an obvious reason for the patient's chills this morning. The patient is morbidly obese appears to have some hypoventilation on top of an underlying COPD condition. He had some pulse ox readings in the high 80s to low 90s. Patient will be discharged home. Would recommend monitoring himself for any changes return if worsening. Patient's who is with him has dementia and is quite cold sitting in the room. She is asking that they go home. Patient is comfortable going home I have asked him to monitor for any new symptoms that may develop as chills could be the initial symptomology for infection. He notes understanding of the plan is comfortable with it History & Record Review Discussion w/independent historian: Patient and Significant other Additional record(s) reviewed:: Prior labs Lab Data Attestation: I reviewed the patient's lab results. Labs: Laboratory Results - last 24 hr 08/24/24 08/24/24 09:00 09:46 WBC 8.3 RBC 4.37 L Hgb 13.6 Hct 42.4 MCV 97.0 H MCH 31.1 MCHC 32.1 RDW Std Deviation 50.3 H RDW Coeff of Jadon 14.1 Plt Count 209 MPV 9.3 Immature Gran % (Auto) 0.400 Neut % (Auto) 79.4 H Lymph % (Auto) 8.8 L [place] % (Auto) 3.6 Eos % (Auto) 7.4 H Baso % (Auto) 0.4 Absolute Neuts (auto) 6.6 Absolute Lymphs (auto) 0.73 L Nucleated RBC % 0 Sodium 140 Potassium 3.7 Chloride 108 H Carbon Dioxide 25.0 Anion Gap 7 BUN 8 Creatinine 1.26 Estim Creat Clear Calc 67.29 Est GFR (MDRD) Af Amer 71 Est GFR (MDRD) Non-Af 59 L BUN/Creatinine Ratio 6.3 L Glucose 149 H Calcium 8.2 L Total Bilirubin 1.80 H Direct Bilirubin 0.47 H AST 13 L ALT 11 L Alkaline Phosphatase 66 Total Protein 6.7 Albumin 2.9 L Globulin 3.8 Lipase 16 Urine Color Yellow Urine Clarity Clear Urine pH 5.0 Ur Specific [place] 1.010 Urine Protein 15 H Urine Glucose (UA) 1000 H Urine Ketones 15 H Urine Occult Blood 10 H Urine Nitrite Negative Urine Bilirubin Negative Urine Urobilinogen Normal Ur Leukocyte Esterase Negative Urine RBC 0 SEEN Urine WBC 0 SEEN Ur Squamous Epith Cells 0 SEEN Urine Bacteria 0 SEEN Urine Mucus 0 SEEN Radiography Diagnostic Testing: Clinical Impression(s) from Imaging Studies Chest X-Ray 08/24/24 11:00 IMPRESSION: Degenerative changes, as described above. No demonstrated acute cardiopulmonary process. Electronically Signed: Faizan Mendiola MD at 11:42 EST Reading Location ID and State: [facility] / [place] , Service support , Discharge Plan Triage Chief Complaint: General Illness ED Provider: Liu Nicole Dx/Rx/DC Orders Clinical Impression: Chilling, Chronic diastolic heart failure, COPD (chronic obstructive pulmonary disease) Prescriptions: No Action metformin 500 mg tablet 500 mg PO BID furosemide 20 mg tablet 20 mg PO DAILY PRN (Reason: Edema) Rx Instructions: TAKE AN EXTRA 20MG prn FOR INCREASES SOB/ SWELLING Entyvio 300 mg recon soln 300 mg IV .per order Rx Instructions: 300 mg intravenously; as directed potassium chloride 20 MEQ tablet 20 meq PO DAILY Patient Comments: supplement atorvastatin 40 MG tablet 40 mg PO QHS Patient Comments: cholesterol metoprolol tartrate 100 mg tablet 100 mg PO BID fexofenadine 180 mg tablet 180 mg PO DAILY PRN PRN (Reason: Allergic Symptoms) prazosin 2 mg capsule 2 mg PO BID Jardiance 10 mg tablet 10 mg PO DAILY azathioprine [Azasan] 75 mg tablet 150 mg PO DAILY flecainide 50 mg tablet 50 mg PO Q12H Qty: 180 3RF budesonide 3 mg capsule,delayed,extend.release 9 mg PO QAM Qty: 90 2RF Stiolto Respimat 2.5-2.5 mcg/actuation mist 2 puff inhalation DAILY Qty: 3 3RF warfarin 2.5 mg tablet 2.5 mg PO QDAY Qty: 90 3RF Protocol: Dose Management Condition: Monday Dose/Route: 2.5 mg Instruction: 1 x 2.5 mg tablet Condition: Monday Dose/Route: 2.5 mg Instruction: 1 x 2.5 mg tablet Condition: Monday Dose/Route: 2.5 mg Instruction: 1 x 2.5 mg tablet Condition: Monday Dose/Route: 2.5 mg Instruction: 1 x 2.5 mg tablet Condition: Dose/Route: 2.5 mg Instruction: 1 x 2.5 mg tablet Condition: Monday Dose/Route: 2.5 mg Instruction: 1 x 2.5 mg tablet Condition: Monday Dose/Route: 2.5 mg Instruction: 1 x 2.5 mg tablet Protocol Text: Adjustment Start Date: Monday07/29/24 INR Value: 3.1 INR Date: 07/29/24 Recheck Date: 08/19/24 Patient Comments: LAST DOSE 07/07/24 FOR ERCP 07/11 OFC SHEREEN YOST RN, OK IF ONLY OFF FOR 3 DAYS. Rx Instructions: 2.5MG Daily; or as directed Primary Care Provider: Carrie Boyer Referrals: Carrie Boyer, [employer]NT [Primary Care Provider] - As Needed Print Language: Albanian Disposition Disposition: Home, Self Care Discharge Date/Time: 08/24/24 12:01
[2024-08-24 11:32] VITALS: O2SAT 95
[2024-08-24 11:55] VITALS: BP 128/76; PULSE 98; RESP 18; TEMP 37; O2SAT 93
== END 2024-08-24 12:01 | disposition home or self-care (01) ==
PROVIDERS: Emergency Provider Emergency Medicine; PCP Clinical Nurse Specialist Adult Health; Visit Provider Emergency Medicine
DX: R68.83 Chills (without fever) (principal); I50.32 Chronic diastolic (congestive) heart failure; J44.9 Chronic obstructive pulmonary disease, unspecified; I48.91 Unspecified atrial fibrillation; E11.9 Type 2 diabetes mellitus without complications; R06.02 Shortness of breath; E78.00 Pure hypercholesterolemia, unspecified; Z87.891 Personal history of nicotine dependence; G47.30 Sleep apnea, unspecified; Z99.89 Dependence on other enabling machines and devices; Z79.899 Other long term (current) drug therapy; Z79.84 Long term (current) use of oral hypoglycemic drugs; Z79.01 Long term (current) use of 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s; Z96.643 Presence of artificial hip joint, bilateral
CPT/HCPCS: 71045; 80048; 80076; 81001; 83690; 85025; 87631; 99285

== ENCOUNTER 2024-09-17 13:41 | Outpatient (CLI) | payer MEDICARE, SELFPAY ==
[2024-09-17 14:06] VITALS: BP 143/49; PULSE 53; RESP 16; TEMP 36.6; O2SAT 96; BMI 44.3
[2024-09-17] MEDS: 0.9% NaCl Peripheral Flush Adult/Peds IV (14:08)
[2024-09-17] MEDS: Vedolizumab 300 MG in 0.9% Normal Saline (250mL Bag) 250 ML 500 MG IV (14:26)
[2024-09-17 15:18] VITALS: BP 117/49; PULSE 56; RESP 16; TEMP 36.6; O2SAT 93
== END 2024-09-17 23:59 | disposition home or self-care (01) ==
LOC: MEDOUTP 13:42
PROVIDERS: PCP Clinical Nurse Specialist Adult Health; Referring Provider Internal Medicine Gastroenterology; Visit Provider Internal Medicine Gastroenterology
DX: K51.90 Ulcerative colitis, unspecified, without complications (principal)
CPT/HCPCS: 96365; A4216; J3380

== ENCOUNTER 2024-09-17 15:29 | Outpatient (RCR) | payer MEDICARE, SELFPAY ==
[2024-08-07 05:04] VITALS: BMI 44.6
[2024-09-13 14:48] LABS: INR Fingerstick 3.8; Prothrombin Time Fingerstick 38.2 SEC (11.7-14.9)
[2024-09-17 15:48] LABS: INR Fingerstick 2.3; Prothrombin Time Fingerstick 25.1 SEC (11.7-14.9)
== END 2024-10-04 18:00 | disposition home or self-care (01) ==
LOC: MTLAB 15:29
PROVIDERS: PCP Clinical Nurse Specialist Adult Health; Referring Provider Nurse Practitioner Family; Visit Provider Nurse Practitioner Family
DX: I48.0 Paroxysmal atrial fibrillation (principal); Z79.01 Long term (current) use of 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s
CPT/HCPCS: 36416; 85610

== ENCOUNTER 2024-10-02 12:55 | Outpatient (CLI) | payer MEDICARE, SELFPAY ==
--- NOTE | 2024-09-27 10:14 | PAT.ANESEVAL ---
Pre-Assessment Diagnosis/Proposed Procedure Planned Operative Procedure(s): ERCP Anesthesia History Anesthesia History - registration officer: Anesthesia History - registration officer Hx Hospitalization Yes: [facility]/ 09/27/24 10:05 PANCREATITIS Any Problems With Anesthesia No 09/27/24 10:05 Cholinesterase deficiency No 09/27/24 10:05 You/Your Family Experience No 09/27/24 10:05 fever (hyperthermia) with Relationship Recent Exposure to Contagious No 07/11/24 10:57 Disease Does patient have nerve No 09/27/24 10:05 stimulator Patient instructed to have device shut off --Does patient have Pacemaker or ICD? When Was Last Pacemaker Check QUESTION #4 FULL TEXT: You/Your Family Experience fever (hyperthermia) with Anesthesia Last Oral Intake Last Oral intake: Last Oral Intake NPO since Meds taken in AM with sips of water? Meds patient instructed to take am of surgery PONV PONV - registration officer: PONV - registration officer Female No 09/27/24 10:05 HX of Motion Sickness No 09/27/24 10:05 HX of N/V After Surgery No 09/27/24 10:05 Non-Smoker Yes 09/27/24 10:05 Duration of Surgery greater No 09/27/24 10:05 than 60 minutes Number of Risk Factors 1 09/27/24 10:05 PONV Score Low Risk 09/27/24 10:05 Height & Weight Height & Weight: Anesthesia: Height & Weight Height 5 ft 9 in 08/24/24 09:00 Respiratory Assessment Respiratory Assessment - registration officer: Respiratory Tract Infection Hx - registration officer Hx Respiratory Tract Infection Yes: Patient has a chronic 09/27/24 10:05 cough STOP Sleep Apnea STOP Sleep Apnea - registration officer: STOP Sleep Apnea - registration officer Hx Hypertension Yes: CONTROLLED ON MED 09/27/24 10:05 Hx Sleep Apnea Yes 09/27/24 10:05 CPAP Yes 09/27/24 10:05 BIPAP No 09/27/24 10:05 Do you snore loudly (louder than talking or can be heard Do you often feel tired/ fatigued/ sleepy during daytime? Has anyone observed you stop breathing during sleep? STOP Results Positive 09/27/24 10:05 QUESTION #5 FULL TEXT : Do you snore loudly (louder than talking or can be heard through closed doors)? Tobacco Use History Tobacco Use History - registration officer: Tobacco Use History - registration officer Tobacco Use Smoking Status Former smoker 09/27/24 10:05 Hx Tobacco Use No 09/27/24 10:05 Years Smoking Packs Smoked per Day Smoking Cessation Date was No - quit smoking greater 09/27/24 10:05 within the last 15 years than 15 years ago Hx Smoking Cessation Date 08/07/17 09/27/24 10:05 Hx Smoking Cessation Counseling Hematologic Medial History Hematologic Hx - registration officer: Hematologic Medical Hx - administrative support assistant Hx of Blood Transfusion No 09/27/24 10:05 Hx of Transfusion in last 3 No 09/27/24 10:05 Months Date of Last Transfusion (if within last 3 months) Ever experience any problems No 09/27/24 10:05 with transfusion(s)? Specify any problems Hx of Preganancy in last 3 N/A 09/27/24 10:05 Months Nurse Filling Out Transfusion VCHRISTIN 09/27/24 10:05 & Questions: Date: 09/27/24 09/27/24 10:05 Time: 10:06 09/27/24 10:05 Patient unable to answer at this time (ie. confused, unrespo /Reproduction History /Reproductive History - registration officer: /Reproductive Hx- registration officer Hx Now Gestational Age (in weeks): EDC: Hx Hx Para Hx Section SAB PFSH Medical History (Updated 09/27/24 @ 10:05 by Isis Pollard) Rash History of steroid therapy Tremor On home oxygen therapy COPD (chronic obstructive pulmonary disease) Hoarseness Chronic cough History of edema Normal Holter exam Hypertension Hyperbilirubinemia Transaminitis Thrombocytopenia Obesity Wears glasses Wears partial dentures Cancer Arthritis High cholesterol Tremor of both hands Ulcerated colon Shortness of breath on exertion Leg cramps History of stress test History of echocardiogram Cardiology follow-up encounter History of atrial fibrillation 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 Ulcerative colitis Colitis Coagulopathy COVID-19 Anxiety Diabetes Former smoker CPAP (continuous positive airway pressure) dependence Sleep apnea Congestive heart failure (CHF) Atrial fibrillation 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, 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 Chronic diastolic heart failure Paroxysmal atrial flutter Type 2 diabetes mellitus SOB (shortness of breath) Home Medications ?Medication ?Instructions ?Recorded ?Last Taken ?Type potassium chloride 20 mEq 20 meq PO DAILY Low potassium 09/27/15 07/10/24 History tablet,extended release(part/cryst) atorvastatin 40 mg tablet 40 mg PO QHS Cholesterol 08/20/16 07/10/24 History metformin 500 mg tablet 500 mg PO BID Diabetes 05/09/19 07/10/24 History metoprolol tartrate 100 mg tablet 100 mg PO BID Afib 02/17/21 07/10/24 History fexofenadine 180 mg tablet 180 mg PO DAILY PRN PRN Allergic 01/11/22 07/10/24 History Symptoms prazosin 2 mg capsule 2 mg PO BID bp 08/08/22 07/10/24 History vedolizumab 300 mg intravenous 300 mg IV .per order 03/21/23 07/10/24 History solution (Entyvio) empagliflozin 10 mg tablet 10 mg PO DAILY 04/24/23 07/10/24 History (Jardiance) furosemide 20 mg tablet 20 mg PO DAILY Edema 06/20/23 07/10/24 History flecainide 50 mg tablet 50 mg PO Q12H #180 TABLETS 11/16/23 07/10/24 Rx tiotropium 2.5 mcg-olodaterol 2.5 2 puff inhalation DAILY SOB #3 ea 04/22/24 07/10/24 Rx mcg/actuation mist for inhalation (Stiolto Respimat) warfarin 2.5 mg tablet 2.5 mg PO QDAY blood thinner #90 05/20/24 07/08/24 Rx tabs prednisone 20 mg tablet 40 mg PO QDAY PRN COLON SYMPTOMS 09/27/24 Unknown History Allergy/AdvReac Type Severity Reaction Status Date / Time amlodipine Allergy Severe Rash Verified 09/27/24 09:46 Penicillins Allergy Hives Verified 09/27/24 09:46 azithromycin AdvReac Diarrhea Verified 09/27/24 09:46 celecoxib (From Celebrex) AdvReac RECTAL Verified 09/27/24 09:46 BLEEDING Family History Mother Colon cancer Heart disease Father CAD (coronary artery disease) Sister Diabetes Brother Heart disease Diabetes Surgical History (Updated 09/27/24 @ 10:05 by Isis Pollard) History of ERCP History of intraocular lens implant History of knee surgery History of bilateral hip replacements History of radiofrequency ablation procedure for cardiac arrhythmia (~08/11/15) Social History Smoking Status: Former smoker how long ago did patient quit smokin + years alcohol intake: never substance use type: does not use caffeine: Yes Type: coffee Number of servings: 3 Audit: Pertinent Findings Pertinent Findings EKG Perinent findings: Sinus rhythm with 1st degree A-V block Left axis deviation Pulmonary disease pattern Stress test pertinent findings: 1. Pharmacologic myocardial perfusion stress test with no evidence of ischemia. 2. Preserved ejection fraction. 3. Previous inferior infarct cannot be completely excluded. Echo (EF%) pertinent findings: Unremarkable with EF of 65% Additional pertinent findings: Promotions Director: Patient's EKG on 09/14/2022 shows sinus rhythm with a rate of 69 bpm, DC interval 214, QTc 391, and QRS 96. This appears stable. He will continue metoprolol for rate control. He will continue flecainide for rhythm control. He will continue warfarin for CVA protection. We will continue to monitor. Recommendation Anesthesia Recommendation Anesthesia recommendation: OPTIMIZED for anesthesia
[2024-10-02 11:54] LABS: INR Fingerstick 1.3; Prothrombin Time Fingerstick 15.7 SEC (11.7-14.9)
== END 2024-10-02 19:00 | disposition home or self-care (01) ==
PROVIDERS: PCP Clinical Nurse Specialist Adult Health; Referring Provider Clinical Nurse Specialist Adult Health; Visit Provider Internal Medicine Gastroenterology
DX: Z00.00 Encounter for general adult medical examination without abnormal findings (principal)
CPT/HCPCS: 36416; 85610; A4216; J2405

== ENCOUNTER 2024-10-09 15:17 | Inpatient (IN) | payer MEDICARE, SELFPAY ==
[2024-10-09] VITALS (10 sets, daily range): BP systolic 141–157; BP diastolic 49–103; PULSE 72–100; RESP 16–34; TEMP 36.6–37.6; O2SAT 3–96; BMI 44.4; BMI 43.1
--- NOTE | 2024-10-09 15:38 | RAD_ITS ---
PROCEDURE: CHEST PA AND LATERAL REASON FOR EXAM: Shortness of breath TECHNIQUE: Frontal and lateral views of the chest. COMPARISON: 08/24/2024 FINDINGS: Heart size is mildly enlarged. There are atherosclerotic calcifications of the thoracic aorta. Pulmonary vasculature is congested. The bones are unremarkable. RAD/Chest PA and Lateral IMPRESSION: Cardiomegaly with pulmonary vascular congestion. Reading Location: [facility]
--- NOTE | 2024-10-09 15:38 | EX.ED.DYSGE1 ---
HPI History of Present Illness Chief Complaint: General Illness Informant: patient and spouse/S.O. Narrative Narrative: Presents by EMS from home increasing dyspnea having chills since yesterday. Urine frequency. No chest pains. No abdominal pain. Denies cough or wheeze. History of COPD. History of paroxysmal A-fib on warfarin. Denies sick contacts. Denies fevers. Denies vomiting or diarrhea. EMS arrival 89% on room air. Was placed on 4 L brought here. He wears oxygen as needed at home. Denies any leg swelling. Denies orthopnea. 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 Ulcerative colitis Colitis Coagulopathy COVID-19 Anxiety Diabetes Former smoker CPAP (continuous positive airway pressure) dependence Sleep apnea Congestive heart failure (CHF) Atrial fibrillation 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, adult senior living current use of 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 Chronic diastolic heart failure Paroxysmal atrial flutter Type 2 diabetes mellitus SOB (shortness of breath) Home Medications ?Medication ?Instructions ?Recorded ?Last Taken ?Type potassium chloride 20 mEq 20 meq PO DAILY Low potassium 09/27/15 10/06/24 History tablet,extended release(part/cryst) atorvastatin 40 mg tablet 40 mg PO QHS Cholesterol 08/20/16 10/06/24 History metformin 500 mg tablet 500 mg PO BID Diabetes 05/09/19 10/06/24 History metoprolol tartrate 100 mg tablet 100 mg PO BID Afib 02/17/21 10/06/24 History fexofenadine 180 mg tablet 180 mg PO DAILY PRN PRN Allergic 01/11/22 07/10/24 History Symptoms prazosin 2 mg capsule 2 mg PO BID bp 08/08/22 10/06/24 History vedolizumab 300 mg intravenous 300 mg IV .per order 03/21/23 07/10/24 History solution (Entyvio) empagliflozin 10 mg tablet 10 mg PO DAILY 04/24/23 10/06/24 History (Jardiance) furosemide 20 mg tablet 20 mg PO DAILY Edema 06/20/23 10/06/24 History flecainide 50 mg tablet 50 mg PO Q12H #180 TABLETS 11/16/23 10/06/24 Rx tiotropium 2.5 mcg-olodaterol 2.5 2 puff inhalation DAILY SOB #3 ea 04/22/24 10/06/24 Rx mcg/actuation mist for inhalation (Stiolto Respimat) warfarin 2.5 mg tablet 2.5 mg PO QDAY blood thinner #90 05/20/24 10/06/24 Rx tabs prednisone 20 mg tablet 20 mg PO Q12H PRN COLON SYMPTOMS 09/27/24 10/06/24 History dicyclomine 20 mg tablet 20 mg PO 3XD 10/09/24 10/06/24 History ketoconazole 2 % shampoo 1 applic topical .COMPLEX 10/09/24 Unknown History Allergy/AdvReac Type Severity Reaction Status Date / Time amlodipine Allergy Severe Rash Verified 10/09/24 15:22 Penicillins Allergy Hives Verified 10/09/24 15:22 azithromycin AdvReac Diarrhea Verified 10/09/24 15:22 celecoxib (From Celebrex) AdvReac RECTAL Verified 10/09/24 15:22 BLEEDING Family History Mother Colon cancer Heart disease Father CAD (coronary artery disease) Sister Diabetes Brother Heart disease Diabetes Surgical History History of ERCP History of intraocular lens implant History of knee surgery History of bilateral hip replacements History of radiofrequency ablation procedure for cardiac arrhythmia (~08/11/15) Social History (Updated 10/09/24 @ 20:[address] Julia Vaca MD) household members: spouse Smoking Status: Former smoker how long ago did patient quit smokin + years alcohol intake: never substance use type: does not use caffeine: Yes Type: coffee Number of servings: 3 ROS ROS ED Constitutional Constitutional ED: Reports chills; Denies fever(s) or sweats ENT ENT ED: Denies sore throat Cardiovascular Cardiovascular: Denies chest pain, leg edema, palpitations or racing heartbeat Respiratory/Chest Respiratory/Chest: Reports dyspnea; Denies cough or dyspnea on exertion Gastrointestinal Gastrointestinal: Denies abdominal pain, diarrhea, nausea or vomiting Genitourinary Genitourinary ED: Reports urinary frequency; Denies dysuria or hematuria Musculoskeletal Musculoskeletal: Denies back pain, extremity pain or neck pain Integumentary Denies rash or wounds Neurologic Neurologic: Denies headache(s), paresthesias or weakness EXAM Physical Exam Const Vital Signs: 10/09/24 15:19 10/09/24 15:24 10/09/24 16:53 Temperature 99.6 F H 99.6 F H Temperature Source Oral Oral Pulse Rate 83 82 Respiratory Rate 29 H 34 H Respiratory Effort Normal Non-Labored Blood Pressure 146/50 H 144/60 H Blood Pressure Mean 82 88 Pulse Ox 95 92 Oxygen Delivery Method Room Air Room Air Oxygen Flow Rate (L/min) 10/09/24 17:00 10/09/24 18:48 10/09/24 20:00 Temperature 98.7 F 99.5 F H 98.9 F Temperature Source Oral Oral Oral Pulse Rate 72 88 86 Respiratory Rate 16 34 H 29 H Respiratory Effort Blood Pressure 141/103 H 151/64 H 144/55 H Blood Pressure Mean 115 93 84 Pulse Ox 94 95 96 Oxygen Delivery Method Nasal Cannula Nasal Cannula Nasal Cannula Oxygen Flow Rate (L/min) 2 2 2 Positive well nourished and well developed General Appearance ED: well developed and NAD HEENT Reports moist mucous membranes normocephalic and atraumatic Eyes General Eye ED: Yes normal appearance of both eyes Neck full ROM Chest Wall Chest: Negative for tenderness Resp normal respiratory effort and normal air movement Effort and Inspection: symmetric chest movement; Negative for respiratory distress Cardio regular rate, regular rhythm and no murmurs Peripheral Pulses: pulses 2+ throughout GI normal to inspection, nondistended, normoactive bowel sounds and non-tender Palpation: Negative for guarding or rebound tenderness present Extremity normal to inspection General Extremety ED: Negative for edema or tenderness General Extremity: Negative for edema Neuro oriented x3 and no sensory deficits noted Sensorium / Orientation: awake and alert Skin no rashes or lesions noted and no wounds MDM MDM MDM Narrative Medical decision making narrative: Interventions / MDM: Differential diagnosis: Dyspnea, hypoxia, viral syndrome, CHF Diagnosis considered but do not suspect: PE however CT negative. Pneumonia however image study negative. My EKG interpretation: Rate controlled flutter at 77, no ST or T wave changes. Imaging independently reviewed and interpreted by myself: 2 view chest x-ray no infiltrates noted. CTA chest: No PE, no infiltrates. Right upper lobe pleural-based mass with metallic coil. External documents reviewed: N/A Test considered but not ordered:N/A ED course: Patient 95% room air temp 99.6. Dyspnea without cough. Urine frequency. No leg swelling. Will check labs urine chest x-ray. EKG ordered. He is on warfarin, INR ordered. 164: White count 13.4 hemoglobin 12.9. Creatinine 1.45. Last creatinine 1.26 in August 2024. INR 1.6. BNP 13,138. Urine negative for infection. 1649: COVID, flu, RSV negative. Chest x-ray no clear infiltrates. Elevated BNP. Subtherapeutic on his INR he is 89% on room air per EMS. Reports dyspnea without cough. Will order CT angiogram of chest for further rule out. 1899: CT angiogram chest no PE no pleural effusion. Previous right sided mass with coil. Attempted ambulation, reported dropped to 86% and was dyspneic per nursing. Was placed back on oxygen. With elevated BNP, IV Lasix ordered. He is on Lasix at home 20 mg daily. Denies any rash resource for concerns for skin infection. I will discuss with hospitalist service for admission. I spoke with Dr. Vaca for admission to PCU. Re-evaluation: stable Disposition discussed with patient/family/significant other: Patient Case discussed with consulting clinician: Hospitalist This note was generated with [employer] dictation software. It may contain incorrect words, spelling, and punctuation that were not noted in checking the note before signing. Lab Data Attestation: I reviewed the patient's lab results. Labs: Laboratory Results - last 24 hr 10/09/24 10/09/24 15:30 16:10 WBC 13.4 H RBC 4.21 L Hgb 12.9 L Hct 40.9 MCV 97.1 H MCH 30.6 MCHC 31.5 L RDW Std Deviation 51.6 H RDW Coeff of Jadon 14.6 Plt Count 228 MPV 9.7 Immature Gran % (Auto) 1.100 H Neut % (Auto) 74.5 H Lymph % (Auto) 19.3 Anderson % (Auto) 4.6 Eos % (Auto) 0.1 Baso % (Auto) 0.4 Absolute Neuts (auto) 10.0 H Absolute Lymphs (auto) 2.59 Nucleated RBC % 0.3 PT 19.8 H INR 1.6 Sodium 136 Potassium 4.0 Chloride 103 Carbon Dioxide 18.7 L Anion Gap 15 BUN 18 Creatinine 1.45 H Estim Creat Clear Calc 57.59 Est GFR (MDRD) Non-Af 49 L BUN/Creatinine Ratio 12.3 Glucose 194 H Calcium 7.9 Magnesium 1.5 [place] [address] H Procalcitonin 1.29 H Urine Color Yellow Urine Clarity Sl. Cloudy Urine pH 5.0 Ur Specific [place] 1.020 Urine Protein 100 H Urine Glucose (UA) 1000 H Urine Ketones Negative Urine Occult Blood 10 H Urine Nitrite Negative Urine Bilirubin Negative Urine Urobilinogen Normal Ur Leukocyte Esterase Negative Urine RBC 0-5 SEEN Urine WBC 0 SEEN Ur Squamous Epith Cells 0-5 SEEN Urine Bacteria 0 SEEN Urine Mucus 0 SEEN Radiography Diagnostic Testing: Clinical Impression(s) from Imaging Studies Chest X-Ray 10/09/24 15:38 IMPRESSION: Cardiomegaly with pulmonary vascular congestion. [facility] CTA 10/09/24 17:00 IMPRESSION: 1. No CT evidence of acute pulmonary embolism. 2. Right upper lobe pleural-based mass with metallic coil. 3. Mild diffuse emphysematous changes 4. Mild cardiomegaly with mild pericardial effusion. One or more dose reduction techniques were used (e.g., Automated exposure control, adjustment of the mA and/or kV according to patient size, use of iterative reconstruction technique). 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
[2024-10-09 16:08] LABS: Absolute Lymphocyte Count 2.59 X10^3/uL (0.83-4.51); Basophil# 0.06 X10^3/uL; Basophil% 0.4 % (0-1); Eosinophil# 0.01 X10^3/uL; Eosinophils% 0.1 % (0-5); Hematocrit 40.9 % (40-54); Hemoglobin 12.9 g/dL (13.0-16.5); Lymphocyte # 2.59 X10^3/ul (0.83-4.51); Lymphocyte % 19.3 % (19-41); Mean Corp Hgb Conc 31.5 g/dL (32-36); Mean Corpuscular Hgb 30.6 pg (27.0-32.0); Mean Corpuscular Volume 97.1 fL (80-94); Mean Platelet Vol. 9.7 fl (6.2-12.0); Monocyte# 0.62 X10^3/uL; Monocyte% 4.6 % (0-10); NRBC Flagged by Analyzer 0.3 % (0-5); Neutrophil # 10.01 X10^3/uL (2.7-7.7); Neutrophil % 74.5 % (47-70); Platelet Count 228 K/mm3 (150-450); RBC Distribution Width CV 14.6 % (11.6-14.6); RBC Distribution Width SD 51.6 fl (35.1-43.9); Red Blood Count 4.21 M/mm3 (4.6-6.2); White Blood Count 13.4 K/mm3 (4.4-11.0)
[2024-10-09 16:19] LABS: Bacteria 0 SEEN /hpf (None Seen); Mucous, Urine 0 SEEN /hpf (<or=2+); White Blood Cells 0 SEEN /hpf (0-5)
[2024-10-09 16:20] LABS: Color, Urine Yellow (Yellow); Glucose, Dipstick 1000 mg/dl (Normal); Ketone-Dipstick Negative (Negative); Leukocyte Esterase-Dipstick Negative /ul (Negative); Nitrite-Dipstick Negative (Negative); Occult Blood-Urine 10 /ul (Negative); Protein-Dipstick 100 mg/dl (Negative); Urine Bilirubin Dipstick Negative (Negative); Urine Clarity Sl. Cloudy (Clear); Urine Urobilinogen Normal (Normal)
[2024-10-09 16:23] LABS: International Normalized Ratio 1.6; Prothrombin Time (Protime)PT. 19.8 SECONDS (11.7-14.9)
[2024-10-09 16:24] LABS: Anion Gap 15 (5-15); BUN 18 mg/dL (4-19); BUN/Creat Ratio 12.3 RATIO (10-20); Calcium,Total 7.9 mg/dL (7.6-11.0); Carbon Dioxide 18.7 mmol/L (21.0-32.0); Chloride 103 mmol/L (98-108); Creatinine, Serum 1.45 mg/dL (0.70-1.20); EST Glomerular Filtration Rate 49 (>60); Estimated Creatinine Clearance 57.59 ml/min (50-250); Glucose 194 mg/dL (70-99); Pro- Brain NATRIURETIC PEPTIDE 13138 pg/mL (<=1800); Sodium Level 136 mmol/L (133-145)
[2024-10-09 16:30] LABS: Red Blood Cells-Urine 0-5 SEEN /hpf (0-5); Squamous Epithelial Cells - UA 0-5 SEEN /hpf (0-5)
--- NOTE | 2024-10-09 17:00 | CT_ITS ---
PROCEDURE: CTA CHEST W/WO CONTRAST REASON FOR EXAM: Dyspnea, hypoxia, subtherapeutic INR TECHNIQUE: CTA imaging of the chest with intravenous contrast. 3D reconstructions. COMPARISON: None. FINDINGS: Hardware: None. Lymph nodes: No mediastinal hilar or axillary lymphadenopathy. Heart: Mild cardiomegaly. Mild pericardial effusion. RV/LV Diameter Ratio: N/A Thoracic Aorta: No thoracic aortic aneurysm or dissection. Pulmonary Vessels: No evidence of acute pulmonary emboli through the major subsegmental branches. Most Proximal Level of Embolus (if embolus present): N/A Lungs and Airways: Mild emphysematous changes are present. 6.0 x 2.7 cm pleural-based mass along the right upper lobe image 224 with metallic coil. Bibasilar atelectasis Pleura: No pleural effusion. No pneumothorax. Upper Abdomen: Visualized portions of the upper abdominal viscera are unremarkable. Bones: Degenerative changes of the thoracic spine. CT/CTA Chest W/WO Contrast IMPRESSION: 1. No CT evidence of acute pulmonary embolism. 2. Right upper lobe pleural-based mass with metallic coil. 3. Mild diffuse emphysematous changes 4. Mild cardiomegaly with mild pericardial effusion. One or more dose reduction techniques were used (e.g., Automated exposure contr ol, adjustment of the mA and/or kV according to patient size, use of iterative reconstruction technique). Reading Location: [facility]
[2024-10-09] MEDS: Furosemide 40 MG/4 ML Vial IV (19:47)
--- NOTE | 2024-10-09 20:03 | PCM.HP.STD ---
HPI - General General Date of Admission: 10/09/24 Date of Service: 10/09/24 Chief Complaint: Dyspnea, edema, orthopnea. HPI Narrative The patient is a 79 y/o M w/ PMHx: Ulcerative Colitis, Morbid obesity, COPD, Chronic essential tremor, HTN, HLD, PAF/Flutter, MGUS, Anxiety and Depression, SILVER on CPAP, HFpEF, Diabetes mellitus type II, Former tobacco use who presents to the [facility] ED on 10/09/24 with history of increasing dyspnea, worse with exertion with orthopnea and suspected weight gain but patient denies weighing himself routinely with subjective chills but no fever with increased urinary frequency with no marked cough or wheezing and no recent ill contacts arriving by EMS with noted 89% on room air upon initial evaluation placed on 4 L and transition to the ED for evaluation with patient reporting supplemental oxygen at home only as needed. Workup in the ED included T99.6, heart rate 83, BP 146/50, respiratory rate 29, 95% room air with most recent repeat vitals T99.5 Orally, heart rate 88, BP 151/64, respiratory rate 34, 95% on 2 L nasal cannula, CBC with WBC 13.4, hemoglobin 12.9, MCV 97.1, platelet 228 with left shift, coags with INR 1.6, PT 19.8, BMP with At 18.7, BUN/creatinine 18/1.45, GFR 49, glucose 194, BNP 13,138, urinalysis cloudy, specific remedy 1.020, urine protein 100, glucose of thousand, occult blood 10 with no evidence of UTI, chest x-ray with cardiomegaly with pulmonary vascular congestion, chest CTA with no evidence of PE, right upper lobe pleural-based mass with metallic coil, mild diffuse emphysematous changes, mild cardiomegaly with mild pericardial effusion, EKG with atrial flutter, rapid SARS COVID/influenza/RSV negative. In the ED patient ministered Lasix 40 mg IV x 1. 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 Ulcerative colitis Colitis Coagulopathy COVID-19 Anxiety Diabetes Former smoker CPAP (continuous positive airway pressure) dependence Sleep apnea Congestive heart failure (CHF) Atrial fibrillation 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, 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 Chronic diastolic heart failure Paroxysmal atrial flutter Type 2 diabetes mellitus SOB (shortness of breath) Home Medications ?Medication ?Instructions ?Recorded ?Last Taken ?Type potassium chloride 20 mEq 20 meq PO DAILY Low potassium 09/27/15 10/06/24 History tablet,extended release(part/cryst) atorvastatin 40 mg tablet 40 mg PO QHS Cholesterol 08/20/16 10/06/24 History metformin 500 mg tablet 500 mg PO BID Diabetes 05/09/19 10/06/24 History metoprolol tartrate 100 mg tablet 100 mg PO BID Afib 02/17/21 10/06/24 History fexofenadine 180 mg tablet 180 mg PO DAILY PRN PRN Allergic 01/11/22 07/10/24 History Symptoms prazosin 2 mg capsule 2 mg PO BID bp 08/08/22 10/06/24 History vedolizumab 300 mg intravenous 300 mg IV .per order 03/21/23 07/10/24 History solution (Entyvio) empagliflozin 10 mg tablet 10 mg PO DAILY 04/24/23 10/06/24 History (Jardiance) furosemide 20 mg tablet 20 mg PO DAILY Edema 06/20/23 10/06/24 History flecainide 50 mg tablet 50 mg PO Q12H #180 TABLETS 11/16/23 10/06/24 Rx tiotropium 2.5 mcg-olodaterol 2.5 2 puff inhalation DAILY SOB #3 ea 04/22/24 10/06/24 Rx mcg/actuation mist for inhalation (Stiolto Respimat) warfarin 2.5 mg tablet 2.5 mg PO QDAY blood thinner #90 05/20/24 10/06/24 Rx tabs prednisone 20 mg tablet 20 mg PO Q12H PRN COLON SYMPTOMS 09/27/24 10/06/24 History dicyclomine 20 mg tablet 20 mg PO 3XD 10/09/24 10/06/24 History ketoconazole 2 % shampoo 1 applic topical .COMPLEX 10/09/24 Unknown History Allergy/AdvReac Type Severity Reaction Status Date / Time amlodipine Allergy Severe Rash Verified 10/09/24 15:22 Penicillins Allergy Hives Verified 10/09/24 15:22 azithromycin AdvReac Diarrhea Verified 10/09/24 15:22 celecoxib (From Celebrex) AdvReac RECTAL Verified 10/09/24 15:22 BLEEDING Family History Mother Colon cancer Heart disease Father CAD (coronary artery disease) Sister Diabetes Brother Heart disease Diabetes Surgical History History of ERCP History of intraocular lens implant History of knee surgery History of bilateral hip replacements History of radiofrequency ablation procedure for cardiac arrhythmia (~08/11/15) Social History household members: spouse Smoking Status: Former smoker how long ago did patient quit smokin + years alcohol intake: never substance use type: does not use caffeine: Yes Type: coffee Number of servings: 3 ROS ROS Narrative Admission Review of Systems: CONSTITUTIONAL: No weight loss, fever, chills. +, Weakness or fatigue. + Suspected weight gain. HEENT: Eyes: No visual loss, blurred vision, double vision or yellow sclerae. Ears, Nose, Throat: No hearing loss, sneezing, congestion, runny nose or sore throat. SKIN: No rash or itching, lesions, wounds. CARDIOVASCULAR: + Suspected weight gain, orthopnea, peripheral edema. No chest pain, chest pressure or chest discomfort, palpitations,syncopal events. RESPIRATORY: + Dyspnea. No marked cough, productive sputum, wheezing or mopped assist. No shortness of breath, cough or sputum, wheezing, hemoptysis. GASTROINTESTINAL: No anorexia, nausea, vomiting or diarrhea, abdominal pain, melena, BRBPR. GENITOURINARY: No dysuria, frequency, urgency or retention. NEUROLOGICAL: No headache, dizziness, syncope, paralysis, ataxia, numbness or tingling in the extremities, focal weakness, change in bowel or bladder control, seizure. MUSCULOSKELETAL: + muscle, back pain, joint pain or stiffness. HEMATOLOGIC: + Chronic anemia, easy bleeding/bruising. LYMPHATICS: No enlarged nodes. No history of splenectomy. PSYCHIATRIC: + History of anxiety and depression. ENDOCRINOLOGIC: No reports of sweating, cold or heat intolerance. No polyuria or polydipsia. ALLERGIES: + History of hives. Vital Signs Vital Signs Vital Signs: 10/09/24 15:19 10/09/24 15:24 10/09/24 16:53 Temperature 99.6 F H 99.6 F H Temperature Source Oral Oral Pulse Rate 83 82 Respiratory Rate 29 H 34 H Respiratory Effort Normal Non-Labored Blood Pressure 146/50 H 144/60 H Blood Pressure Mean 82 88 Pulse Ox 95 92 Oxygen Delivery Method Room Air Room Air Oxygen Flow Rate (L/min) 10/09/24 17:00 10/09/24 18:48 Temperature 98.7 F 99.5 F H Temperature Source Oral Oral Pulse Rate 72 88 Respiratory Rate 16 34 H Respiratory Effort Blood Pressure 141/103 H 151/64 H Blood Pressure Mean 115 93 Pulse Ox 94 95 Oxygen Delivery Method Nasal Cannula Nasal Cannula Oxygen Flow Rate (L/min) 2 2 Weight Weight: 300 lb 11.368 oz Body Mass Index (BMI) 44.4 Physical Exam Narrative Physical Examination: General: Awake, alert, oriented x 3 and cooperative, seated upright in the ED bed, fatigued appearing. Skin: Normal color, normal turgor, no icterus, no cyanosis except notable bilateral lower extremity venous stasis skin changes, occasional stage ecchymoses. HEENT: AT/NC, EOMI, PERRLA, MMM, no obvious carotid bruit, difficult to assess JVD given very thickened neck secondary to habitus. Lungs: Diminished, greater bases, mildly increased respiratory rate but no distress, mild rales at the bases, no obvious rhonchi or wheezing or distress. Heart: Irregular; no gallop, rub audible. Abdomen: Soft, morbidly obese, NTTP, distant BS, difficult to discern distention HSM given habitus. Extremities: No cyanosis, no clubbing, pedal to proximal [place] pitting edema, see skin. Neurological: Patient awake, alert, oriented as noted, cognitive function intact; pupils equally reactive to light and accommodation, cranial nerves gross normal, moving all 4 extremities, no focal deficits, strength moderately to severely globally decreased secondary to acute presentation. Psychiatric: Affect appears fatigued, no acute evidence of depressive or anxiety feelings but does have underlying history. Results Lab / Micro Data 10/09/24 15:30 10/09/24 15:30 Labs: Laboratory Results - last 24 hr 10/09/24 15:30: WBC 13.4 H, RBC 4.21 L, Hgb 12.9 L, Hct 40.9, MCV 97.1 H, MCH 30.6, MCHC 31.5 L, RDW Std Deviation 51.6 H, RDW Coeff of Jadon 14.6, Plt Count 228, MPV 9.7, Immature Gran % (Auto) 1.100 H, Neut % (Auto) 74.5 H, Lymph % (Auto) 19.3, [place] % (Auto) 4.6, Eos % (Auto) 0.1, Baso % (Auto) 0.4, Absolute Neuts (auto) 10.0 H, Absolute Lymphs (auto) 2.59, Nucleated RBC % 0.3, PT 19.8 H, INR 1.6, Sodium 136, Potassium 4.0, Chloride 103, Carbon Dioxide 18.7 L, Anion Gap 15, BUN 18, Creatinine 1.45 H, Estim Creat Clear Calc 57.59, Est GFR (MDRD) Non-Af 49 L, BUN/Creatinine Ratio 12.3, Glucose 194 H, Calcium 7.9, [place] [address] H 10/09/24 16:10: Urine Color Yellow, Urine Clarity Sl. Cloudy, Urine pH 5.0, Ur Specific [place] 1.020, Urine Protein 100 H, Urine Glucose (UA) 1000 H, Urine Ketones Negative, Urine Occult Blood 10 H, Urine Nitrite Negative, Urine Bilirubin Negative, Urine Urobilinogen Normal, Ur Leukocyte Esterase Negative, Urine RBC 0-5 SEEN, Urine WBC 0 SEEN, Ur Squamous Epith Cells 0-5 SEEN, Urine Bacteria 0 SEEN, Urine Mucus 0 SEEN Micro: Microbiology 10/09/24 15:30 Mucosa - Nose SARS-CoV-2, Influenza & RSV (PCR) - Final Imaging Radiology Impression Chest X-Ray 10/09/24 15:38 IMPRESSION: Cardiomegaly with pulmonary vascular congestion. [facility] Chest CTA 10/09/24 17:00 IMPRESSION: 1. No CT evidence of acute pulmonary embolism. 2. Right upper lobe pleural-based mass with metallic coil. 3. Mild diffuse emphysematous changes 4. Mild cardiomegaly with mild pericardial effusion. One or more dose reduction techniques were used (e.g., Automated exposure control, adjustment of the mA and/or kV according to patient size, use of iterative reconstruction technique). Reading [facility] Assessment & Plan Assessment/Plan (1) CHF (congestive heart failure): PLAN: Plan The patient is a 79 y/o M w/ PMHx: Ulcerative Colitis, Morbid obesity, COPD, Chronic essential tremor, HTN, HLD, PAF/Flutter, MGUS, Anxiety and Depression, SILVER on CPAP, HFpEF, Diabetes mellitus type II, Former tobacco use who presents to the [facility] ED on 10/09/24 with history of increasing dyspnea, worse with exertion with orthopnea and suspected weight gain but patient denies weighing himself routinely with subjective chills but no fever with increased urinary frequency with no marked cough or wheezing and no recent ill contacts arriving by EMS with noted 89% on room air upon initial evaluation placed on 4 L and transition to the ED for evaluation with patient reporting supplemental oxygen at home only as needed. #1. Acute Hypoxia secondary to Acutely Decompensated HFpEF with incidentally noted potential mild pericardial effusion and indeterminate cardiac enzyme: Patient administered IV lasix in the ED, will admit to PCU, maintain on cardiac telemetry, obtain cardiac enzyme series, obtain serial EKGs, continue IV lasix diuresis, monitor I/Os, maintain on intake restriction, continue medical therapy, obtain TSH and magnesium level. Most recent ECHO noted 11/01/2021 with EF 65% with no evidence of diastolic dysfunction, trivial MVI thus request repeat, place neck carroll wraps with lower extremity elevation as able. PT/OT/case management consultation for discharge planning. Will obtain procalcitonin, respiratory viral panel be cautious. #2. PAF/flutter: Patient with evidence of flutter upon presentation, will continue patient home flecainide, metoprolol regimen as well as Coumadin with INR trending. #3. Diabetes mellitus type II: Hold oral home regimen, ADA diet, accu checks w/ ISS. #4. Hypertension: Continue home regimen including metoprolol, IV Lasix, PRN hydralazine. #5. Hyperlipidemia: Continue home statin regimen. AM FLP. #6. Chronic COPD: Will maintain on oxygen with wean as tolerated to room air as noted above, continue ATC duonebs, PRN albuterol, HOB, IS parameters. #7. Chronic Kidney Disease Stage III, unclear subtype per GFR trending: Admission BUN/Cr 18/1.45, GFR 49, baseline renal function primarily 1.0-1 point, repeat BMP in AM. #8. Chronic macrocytic anemia: Admission hemoglobin 12.9, MCV 97.1, baseline hemoglobin primarily 13 more recently but has vacillated in the past was primarily 11-12, continue to trend. #9. Morbid Obesity: Weight loss and lifestyle changes encouraged. #10. Former tobacco use: Encourage continued tobacco cessation. #12. Ulcerative colitis: Noted history, most recent medication per current list Entyvio outpatient but unclear last usage, encourage continued outpatient follow-up with GI as previously arranged. 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 #14. SILVER: CPAP nightly. #15. DVT prophylaxis: Will continue Coumadin with INR trending. #16. CODE status: Patient NETTA is his and living will is currently in place. Discussed CODE status at length including difference between FULL code, DNR-CCA and DNR-CC status. Following discussions about the differences in these status, requested Full Code status. Advanced Care Planning Face to Face Time: 16 minutes. Charges/Coding Visit Charges Inpatient E&M: 98196 Init Hosp L3 Procedures Hospitalists Procedures: 26577 Advncd Care Plan 30 Min
[2024-10-09 22:32] LABS: Magnesium 1.5 mg/dL (1.5-2.2)
[2024-10-09 22:54] LABS: Procalcitonin 1.29 ng/mL (<=0.10)
[2024-10-09] MEDS: Ipratropium/Albuterol Sulfate 3 ML AMPUL.NEB INHALATION (23:00)
[2024-10-10] VITALS (13 sets, daily range): BP systolic 111–148; BP diastolic 36–66; PULSE 40–86; RESP 16–25; TEMP 36.6–37.1; O2SAT 88–99; BMI 43.1
[2024-10-10] MEDS: Insulin Lispro 100 UNIT/ML INSULN.PEN SC ×5 (00:10→22:53)
[2024-10-10] MEDS: Flecainide 100 MG Tablet 50 MG PO ×3 (00:12→22:50)
[2024-10-10] MEDS: Atorvastatin Calcium 40 MG Tablet PO ×2 (00:12→22:48)
[2024-10-10] MEDS: Prazosin HCl 1 MG Capsule 2 MG PO ×2 (00:12→22:48)
[2024-10-10] MEDS: Dicyclomine 10 MG Capsule 20 MG PO ×4 (00:17→22:47)
[2024-10-10] MEDS: Metoprolol Tartrate 100 MG Tablet PO ×3 (00:17→22:55)
[2024-10-10] MEDS: MELATONIN 3 MG TABLET PO ×2 (00:28→22:59)
[2024-10-10 00:41] LABS: Bedside Glucose 190 mg/dL (74-106)
--- NOTE | 2024-10-10 02:21 | PCM.HOSP.N ---
Hospitalist Note Patient with R inner thigh redness, unclear duration with no obvious abscess or abrasion. Not bilateral. Concern this may source of recent chills and procalcitonin notably elevated. Bld Cx x 2 pending. At this time we will initiate and maintain on IV Rocephin, requested nursing staff to outline erythematous region, will continue to monitor and ensure improving.
[2024-10-10 02:55] LABS: Troponin T High Sensitivity 28 ng/L (<=22)
[2024-10-10] MEDS: Ceftriaxone 1 GM/50 ML BAG IV ×2 (03:04→22:51)
[2024-10-10] MEDS: Magnesium Sulfate 2 GM in Dextrose 5%-Water (100mL Bag) 100 ML IV (04:24)
[2024-10-10 05:17] LABS: Troponin T High Sens 2 HR 29 ng/L (<=22)
--- NOTE | 2024-10-10 05:55 | ECHOCS_ITS ---
Reason For Study Reason For Study: CHF Procedure This was a 2D Doppler, Color Flow transthoracic echocardiogram. The study was technically difficult. Contrast injection was performed. Exam performed portable in patient room. Left Ventricle Mild concentric left ventricular hypertrophy. Normal LV size. The left ventricular ejection fraction is 65 %. Stage 1 diastolic dysfunction. Right Ventricle Normal right ventricle. The right ventricle is not well visualized. Atria There is moderate biatrial dilatation. Mitral Valve Trivial mitral valve insufficiency. Tricuspid Valve Trivial tricuspid valve insufficiency. Unable to estimate RV systolic pressure due to insufficient tricuspid regurgitant envelope. Aortic Valve Trisinus/trileaflet aortic valve. Pulmonic Valve The pulmonic valve is not well visualized. Great Vessels Normal sized aortic root. Pericardium/Pleural No pericardial effusion. Medication Diluted definity 3.5ml given slow IV push to enhance endocardial definition. MMode/2D Measurements & Calculations LVIDd: 3.7 cm IVSd: 1.2 cm Ao root diam: 3.1 cm LVIDs: 2.2 cm LVPWd: 1.1 cm LA dimension: 4.6 cm FS: 40.6 % LAV(MOD-sp4): 99.4 ml LVAd ap4: 34.2 cm2 SV(MOD-sp4): 67.8 ml LVLd ap4: 8.4 cm SI(MOD-sp4): 28.0 ml/m2 EDV(MOD-sp4): 113.1 ml EDV(sp4-el): 117.6 ml LVAs ap4: 18.9 cm2 LVLs ap4: 6.6 cm ESV(MOD-sp4): 45.4 ml ESV(sp4-el): 46.2 ml EF(MOD-sp4): 59.9 % EF(sp4-el): 60.7 % SV(sp4-el): 71.4 ml LA A4 area: 28.9 cm2 LA dimension(2D): 4.1 cm RA A4 area: 24.3 cm2 Doppler Measurements & Calculations MV E max giovana: 95.3 cm/sec MV V2 max: 145.6 cm/sec Ao V2 max: 138.5 cm/sec MV max P.5 mmHg Ao max P.8 mmHg MV V2 mean: 62.1 cm/sec MV mean P.2 mmHg MV V2 VTI: 30.5 cm LV V1 max: 96.1 cm/sec LV V1 max P.7 mmHg ECHO/Echo Complete W/ Contrast Interpretation Summary The study was technically difficult. Mild concentric left ventricular hypertrophy. The left ventricular ejection fraction is 65 %. Stage 1 diastolic dysfunction. There is moderate biatrial dilatation. Ordering Physician: Julia Vaca Referring Physician: Nilson Otero Performed By: Peng Julien RCS
[2024-10-10 06:23] LABS: Absolute Lymphocyte Count 2.05 X10^3/uL (0.83-4.51); Absolute Neutrophil Count 8.5 X10^3/uL (2.0-7.7); Basophil# 0.03 X10^3/uL; Basophil% 0.3 % (0-1); Hematocrit 36.5 % (40-54); Lymphocyte # 2.05 X10^3/ul (0.83-4.51); Lymphocyte % 18.5 % (19-41); Mean Corp Hgb Conc 32.9 g/dL (32-36); Mean Corpuscular Hgb 31.3 pg (27.0-32.0); Mean Corpuscular Volume 95.3 fL (80-94); Mean Platelet Vol. 9.5 fl (6.2-12.0); Monocyte# 0.39 X10^3/uL; Monocyte% 3.5 % (0-10); NRBC Flagged by Analyzer 0.2 % (0-5); Neutrophil # 8.51 X10^3/uL (2.7-7.7); Neutrophil % 76.9 % (47-70); Platelet Count 180 K/mm3 (150-450); RBC Distribution Width CV 14.7 % (11.6-14.6); RBC Distribution Width SD 50.9 fl (35.1-43.9); Red Blood Count 3.83 M/mm3 (4.6-6.2); White Blood Count 11.1 K/mm3 (4.4-11.0)
[2024-10-10 06:33] LABS: International Normalized Ratio 1.9; Prothrombin Time (Protime)PT. 22.4 SECONDS (11.7-14.9)
[2024-10-10 06:54] LABS: Troponin T High Sens 4 HR 28 ng/L (<=22)
[2024-10-10 07:17] LABS: Bedside Glucose 199 mg/dL (74-106)
[2024-10-10 07:42] LABS: ALB/GLOB Ratio 0.9 RATIO (0.9-2.4); AST(SGOT) 10 U/L (<=37); Alanine Aminotransfer ALT/SGPT 17 U/L (<=46); Albumin, Serum 2.6 g/dL (3.4-4.8); Alkaline Phosphatase 49 U/L (40-129); Anion Gap 14 (5-15); BUN 24 mg/dL (4-19); BUN/Creat Ratio 13.8 RATIO (10-20); Calcium,Total 7.7 mg/dL (7.6-11.0); Carbon Dioxide 18.5 mmol/L (21.0-32.0); Chloride 104 mmol/L (98-108); Cholesterol 86 mg/dL (<=200); Creatinine, Serum 1.73 mg/dL (0.70-1.20); EST Glomerular Filtration Rate 40 (>60); Estimated Creatinine Clearance 47.48 ml/min (50-250); Globulin 2.8 g/dL (2.2-4.2); Glucose 237 mg/dL (70-99); High Density Lipoprotein 30 mg/dL; Low Density Lipoprotein Calc. 32 mg/dL; Magnesium 2.2 mg/dL (1.5-2.2); Potassium 3.8 mmol/L (3.3-5.1); Protein, Total 5.3 g/dL (5.9-8.4); Sodium Level 136 mmol/L (133-145); Total Bilirubin 1.36 mg/dL (0.00-1.30); Triglycerides 121 mg/dL; Very Low Density Lipoprotein 24 mg/dL (5-40); cholesterol:hdl ratio screen 2.87
--- NOTE | 2024-10-10 09:40 | PN.HOSP_ITS ---
Reason for Visit Reason for Visit: Diagnoses Heart failure, unspecified (10/09/24) Objective Data Objective Data Vital Signs: Vital Signs Temp Pulse Resp BP Pulse Ox O2 Del Method O2 Flow Rate 97.9 F 55 L 20 H 115/41 L 99 Nasal Cannula 3 10/10/24 09:05 10/10/24 09:05 10/10/24 09:05 10/10/24 09:05 10/10/24 09:05 10/10/24 09:36 10/10/24 09:36 Oxygen Flow Rate (L/min) 3 Oxygen Delivery Method Nasal Cannula Weight: 291 lb 14.272 oz Body Mass Index (BMI) 43.1 Intake & Output: Intake and Output for Last 24 Hours 10/08/24 10/09/24 10/10/24 23:59 23:59 23:59 Intake Total 354 / 354 Output Total 650 / 650 Balance -296 / -296 Lab / Micro Data 10/10/24 06:02 10/10/24 06:02 Labs: Laboratory Results - last 24 hr 10/09/24 15:30: WBC 13.4 H, RBC 4.21 L, Hgb 12.9 L, Hct 40.9, MCV 97.1 H, MCH 30.6, MCHC 31.5 L, RDW Std Deviation 51.6 H, RDW Coeff of Jadon 14.6, Plt Count 228, MPV 9.7, Immature Gran % (Auto) 1.100 H, Neut % (Auto) 74.5 H, Lymph % (Auto) 19.3, [place] % (Auto) 4.6, Eos % (Auto) 0.1, Baso % (Auto) 0.4, Absolute Neuts (auto) 10.0 H, Absolute Lymphs (auto) 2.59, Nucleated RBC % 0.3, PT 19.8 H , INR 1.6, Sodium 136, Potassium 4.0, Chloride 103, Carbon Dioxide 18.7 L, Anion Gap 15, BUN 18, Creatinine 1.45 H, Estim Creat Clear Calc 57.59, Est GFR (MDRD) Non-Af 49 L, BUN/Creatinine Ratio 12.3, Glucose 194 H, Calcium 7.9, Magnesium 1.5, [place] [address] H, Procalcitonin 1.29 H 10/09/24 16:10: Urine Color Yellow, Urine Clarity Sl. Cloudy, Urine pH 5.0, Ur Specific [place] 1.020, Urine Protein 100 H, Urine Glucose (UA) 1000 H, Urine Ketones Negative, Urine Occult Blood 10 H, Urine Nitrite Negative, Urine Bilirubin Negative, Urine Urobilinogen Normal, Ur Leukocyte Esterase Negative, Urine RBC 0-5 SEEN, Urine WBC 0 SEEN, Ur Squamous Epith Cells 0-5 SEEN, Urine Bacteria 0 SEEN, Urine Mucus 0 SEEN 10/10/24 00:04: POC Glucose 190 H 10/10/24 01:50: Troponin T High Sens 28 H 10/10/24 04:13: Troponin T Hi Sens 2 Hr 29 H 10/10/24 06:02: WBC 11.1 H, RBC 3.83 L, Hgb 12.0 L, Hct 36.5 L, MCV 95.3 H, MCH 31.3, MCHC 32.9, RDW Std Deviation 50.9 H, RDW Coeff of Jadon 14.7 H, Plt Count 180, MPV 9.5, Immature Gran % (Auto) 0.800, Neut % (Auto) 76.9 H, Lymph % (Auto) 18.5 L, [place] % (Auto) 3.5, Eos % (Auto) 0.0, Baso % (Auto) 0.3, Absolute Neuts (auto) 8.5 H, Absolute Lymphs (auto) 2.05, Nucleated RBC % 0.2, PT 22.4 H, INR 1.9, Sodium 136, Potassium 3.8, Chloride 104, Carbon Dioxide 18.5 L, Anion Gap 14, BUN 24 H, Creatinine 1.73 H, Estim Creat Clear Calc 47.48 L, Est GFR (MDRD) Non-Af 40 L, BUN/Creatinine Ratio 13.8, Glucose 237 H, Calcium 7.7, Magnesium 2.2, Total Bilirubin 1.36 H, AST 10, ALT 17, Alkaline Phosphatase 49, Troponin T Hi Sens 4Hr 28 H, Total Protein 5.3 L, Albumin 2.6 L, Globulin 2.8, Albumin/Globulin Ratio 0.9, Triglycerides 121, Cholesterol 86, LDL Cholesterol, Calc 32, VLDL Cholesterol 24, HDL Cholesterol 30 L, Cholesterol/HDL Ratio 2.87 10/10/24 06:49: POC Glucose 199 H Micro: Microbiology 10/10/24 01:30 Mucosa - Nasopharyngeal Respiratory Panel (PCR) - Final 10/09/24 15:30 Mucosa - Nose SARS-CoV-2, Influenza & RSV (PCR) - Final Radiography Diagnostic Testing: Radiology Impression Chest X-Ray 10/09/24 15:38 IMPRESSION: Cardiomegaly with pulmonary vascular congestion. [facility] Chest CTA 10/09/24 17:00 IMPRESSION: 1. No CT evidence of acute pulmonary embolism. 2. Right upper lobe pleural-based mass with metallic coil. 3. Mild diffuse emphysematous changes 4. Mild cardiomegaly with mild pericardial effusion. One or more dose reduction techniques were used (e.g., Automated exposure control, adjustment of the mA and/or kV according to patient size, use of iterative reconstruction technique). Reading Location: [facility] Physical Exam Narrative Seen and examined. Discussed with the patient's near the bedside. Patient had shortness of breath on and off for 3 to 4 days prior to admission. Denies chest pain pressure. Denies URI symptoms or fever. Physical exam General: Alert, Oriented x3, Cooperative. BMI 43.1 kg/m? HEENT: Atraumatic, PERRLA, EOMI, Normocephalic Oral: Deep oropharyngeal structures could not be visualized. Neck: Thick white neck. JVD not discernible. Supple, Negative Carotid Bruits Chest wall/Lungs: Air entry diminished in bilateral lungs. Bilateral expiratory wheezing Cardiovascular: Regular rate, Regular Rhythm, Normal S1, Normal S2, soft systolic murmur Abdomen: Bowel Sounds Present, Soft, Non Tender, Non-Distended : No dysuria. No renal angle tenderness. No suprapubic tenderness. Extremities: Bilateral 3+ pitting edema from mid thigh downwards. Capillary Refill Less than 3 Seconds Skin: No rashes, No breakdown Musculoskeletal: No Tenderness to Palpation of Joints or Extremities. ROM restricted Neurological: Cranial nerves II-XII grossly intact, DTR 2+/4. No acute focal neurological deficit. Psych/Mental Status: N flat affect Assessment & Plan Assessment/Plan (1) CHF (congestive heart failure): PLAN: Plan The patient is a 79 y/o M was brought to ED by EMS for increased shortness of breath/dyspnea, worse on exertion, orthopnea, weight gain, shaking for about 4 days but got worse 1 day prior to admission . Pulse ox was 89% on room air. Patient was started on 4 L of oxygen in ED. Usually patient on home O2 as needed #1. Acute Hypoxia secondary to Acutely Decompensated HFpEF: Patient being admitted in PCU. Patient has intermittent troponin enzymes. Mild pericardial effusion. On IV Lasix. Heart failure core measures including intake and output, fluid restriction less than 1500 mL, daily weight monitoring, kidney and electrolytes monitoring. Most recent ECHO noted 11/01/2021 with EF 65% with no evidence of diastolic dysfunction, trivial MVI. Repeat echo proBNP is very high about 13,000. Troponin minimally elevated, all 3 in similar range. 2D echo was done which was technically difficult, EF 65%. Interpretation Summary Mild concentric left ventricular hypertrophy. The left ventricular ejection fraction is 65 %. Stage 1 diastolic dysfunction. There is moderate biatrial dilatation. #2. PAF/flutter: Patient with evidence of flutter upon presentation, continue patient home flecainide, metoprolol regimen as well as Coumadin. INR 1.9. #3. Diabetes mellitus type II: Hold oral home regimen, ADA diet, Accu-Chek before meals and at bedtime with Humalog sliding scale coverage and hypoglycemia protocol. #4. Hypertension: Continue home regimen including metoprolol, IV Lasix, PRN hydralazine. #5. Hyperlipidemia: Continue home statin regimen. AM FLP. #6. Chronic COPD: Continue oxygen. DuoNeb nebulization. Incentive spirometry. #7. Chronic Kidney Disease Stage III, unclear subtype per GFR trending: Admission BUN/Cr 18/1.45, GFR 49, baseline renal function primarily 1.0-1 point, repeat BMP in AM. #8. Chronic macrocytic anemia: Admission hemoglobin 12.9, MCV 97.1, baseline hemoglobin primarily 13 more recently but has vacillated in the past was primarily 11-12, continue to trend. #9. Morbid Obesity: Weight loss and lifestyle changes encouraged. #10. Former tobacco use: Encourage continued tobacco cessation. #12. Ulcerative colitis: Noted history, most recent medication per current list Entyvio outpatient but unclear last usage, encourage continued outpatient follow-up with GI as previously arranged. 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 #14. SILVER: CPAP nightly. 15. Right inner thigh redness but no obvious abrasions/abscess. No recent chills. Suspicion of cellulitis. On IV ceftriaxone. DVT prophylaxis: Will continue Coumadin with INR trending. CODE status: Patient ORIOA is his and living will is currently in place. Discussed CODE status at length including difference between FULL code, DNR-CCA and DNR-CC status. Following discussions about the differences in these status, requested Full Code status. Advanced Care Planning Face to Face Time: 16 minutes. Charges/Coding Visit Charges Inpatient E&M: 06704 Subs Hosp L2
[2024-10-10] MEDS: Potassium Chloride Oral Tablet 20 MEQ PO (10:49)
[2024-10-10] MEDS: Furosemide 40 MG/4 ML Vial IV ×2 (10:49→16:50)
--- NOTE | 2024-10-10 10:50 | CASEMGMT ---
RN ENZO Face to Face with patient for initial transition planning/care coordination assessment. RN CM introduced self and role at [facility]. Patient lying in bed, alert and oriented, at bedside. Patient willing to participate in assessment and is able to answer all questions appropriately. Care providers, pharmacy, and demographics verified. Strata: 3 PCP: Rosalind Specialists: Salas, cpht; SARAHY, mailing manager; Preferred Pharmacy: [facility] Insurance: Medium Prescription Benefit: yes Living Will/HPOA: yes, Em Oshea LNOK: , brother Living Arrangements: Patient lives with in a single story home with 2 steps to enter the home. Patient is independent at home. Transportation: self, DME/HHC: Patient has raised toilet, cane, crutches, walker, grab bars, glucometer pulse ox, cpap, and home oxygen through [facility] with portable tanks. No previous HHC or SNF. Patient wishes to discharge home, will monitor progress with therapy for recommendations. Patient states he has no further needs or concerns at this time. CM to follow for discharge planning needs that may arise. Disposition Plan: Patient to discharge home with family support and follow-up plans in place. Will monitor for HHC and increase in home oxygen. Ashlee POLK, RN, CM
[2024-10-10 11:45] LABS: Bedside Glucose 195 mg/dL (74-106)
[2024-10-10] MEDS: guaiFENesin/D-Methorphan TAB.SR.12H 2 TABLET PO ×2 (16:50→22:48)
[2024-10-10 17:13] LABS: Bedside Glucose 225 mg/dL (74-106)
[2024-10-10] MEDS: Ipratropium/Albuterol Sulfate 3 ML AMPUL.NEB INHALATION (19:45)
[2024-10-10] MEDS: Senna/Docusate Sodium 1 Tablet 2 TABLET PO (22:49)
[2024-10-11] VITALS (19 sets, daily range): BP systolic 105–140; BP diastolic 46–74; PULSE 64–87; RESP 16–22; TEMP 36.5–37.5; O2SAT 91–99; BMI 43.7
[2024-10-11 01:06] LABS: Bedside Glucose 181 mg/dL (74-106)
[2024-10-11] MEDS: Ipratropium/Albuterol Sulfate 3 ML AMPUL.NEB INHALATION ×5 (02:55→21:14)
[2024-10-11 05:22] LABS: Absolute Lymphocyte Count 1.71 X10^3/uL (0.83-4.51); Absolute Neutrophil Count 8.1 X10^3/uL (2.0-7.7); Basophil# 0.02 X10^3/uL; Basophil% 0.2 % (0-1); Eosinophil# 0.03 X10^3/uL; Eosinophils% 0.3 % (0-5); Hemoglobin 11.6 g/dL (13.0-16.5); Lymphocyte # 1.71 X10^3/ul (0.83-4.51); Lymphocyte % 16.7 % (19-41); Mean Corp Hgb Conc 33.1 g/dL (32-36); Mean Corpuscular Hgb 31.1 pg (27.0-32.0); Mean Corpuscular Volume 93.8 fL (80-94); Mean Platelet Vol. 9.6 fl (6.2-12.0); Monocyte# 0.36 X10^3/uL; Monocyte% 3.5 % (0-10); NRBC Flagged by Analyzer 0 % (0-5); Neutrophil # 8.08 X10^3/uL (2.7-7.7); Neutrophil % 78.7 % (47-70); Platelet Count 163 K/mm3 (150-450); RBC Distribution Width CV 14.6 % (11.6-14.6); RBC Distribution Width SD 50.8 fl (35.1-43.9); Red Blood Count 3.73 M/mm3 (4.6-6.2); White Blood Count 10.3 K/mm3 (4.4-11.0)
[2024-10-11 05:45] LABS: International Normalized Ratio 1.9; Prothrombin Time (Protime)PT. 21.9 SECONDS (11.7-14.9)
[2024-10-11] MEDS: Dicyclomine 10 MG Capsule 20 MG PO ×2 (06:28→22:15)
[2024-10-11 06:35] LABS: Anion Gap 15 (5-15); BUN 28 mg/dL (4-19); BUN/Creat Ratio 15.5 RATIO (10-20); Calcium,Total 7.7 mg/dL (7.6-11.0); Carbon Dioxide 17.5 mmol/L (21.0-32.0); Chloride 104 mmol/L (98-108); Creatinine, Serum 1.83 mg/dL (0.70-1.20); EST Glomerular Filtration Rate 37 (>60); Estimated Creatinine Clearance 45.26 ml/min (50-250); Glucose 186 mg/dL (70-99); Potassium 3.6 mmol/L (3.3-5.1); Sodium Level 137 mmol/L (133-145)
[2024-10-11] MEDS: Insulin Lispro 100 UNIT/ML INSULN.PEN SC ×4 (06:38→22:27)
[2024-10-11 07:00] LABS: Bedside Glucose 174 mg/dL (74-106)
[2024-10-11] MEDS: Potassium Chloride Oral Tablet 20 MEQ PO (09:38)
[2024-10-11] MEDS: Metoprolol Tartrate 100 MG Tablet PO ×2 (09:39→22:19)
[2024-10-11] MEDS: Prazosin HCl 1 MG Capsule 2 MG PO ×2 (09:39→22:22)
[2024-10-11] MEDS: Furosemide 40 MG/4 ML Vial IV ×2 (09:39→18:10)
[2024-10-11] MEDS: guaiFENesin/D-Methorphan TAB.SR.12H 2 TABLET PO ×2 (09:39→22:16)
[2024-10-11] MEDS: Senna/Docusate Sodium 1 Tablet 2 TABLET PO ×2 (09:40→22:16)
[2024-10-11] MEDS: Flecainide 100 MG Tablet 50 MG PO ×2 (09:40→22:20)
--- NOTE | 2024-10-11 10:05 | CT_ITS ---
PROCEDURE: CT PELVIS WITHOUT CONTRAST REASON FOR EXAM: BILATERAL HIP REPLACEMENTS. HISTORY OF ULCERATIVE COLITIS. LEFT INNER THIGH REDNESS. COMPARISON: No relevant prior. TECHNIQUE: Contiguous axial scans of 2.5 mm slice thicknesses. Sagittal and coronal reconstruction images were obtained. One or more dose reduction techniques were used (e.g., automated exposure control, adjustment of mA and/or kv according to patient size, use of iterative reconstruction technique). FINDINGS: Bladder: Normal contour. Some degradation of the posterior bladder due to beam hardening artifact related to bilateral total hip arthroplasties. Ureters: No definite ureteroliths. Prostate: Unremarkable. Bowel: Diverticulosis, sigmoid colon. Appendix: Normal. Lymph nodes: No suspicious Vasculature: Aortoiliac atherosclerotic calcifications Peritoneum / Retroperitoneum: Bilateral perirenal fat stranding, more prevalent on the left. Abdominal wall: A fat containing midline periumbilical hernia. Bones: Bilateral total hip arthroplasties. No periprosthetic fractures are demonstrated. Soft tissues: Soft tissue stranding is seen in the subcutaneous tissues of the left upper thigh particularly along the medial aspect. Subcutaneous pockets of air are distributed throughout this area of fat stranding. The left upper thigh is edematous and larger than the right. Mild skin thickening is noted of long the medial aspect of the upper thigh. CT/Pelvis without IV Contrast IMPRESSION: 1. Findings concerning for CELLULITIS involving the left upper thigh particula r along its medial aspect. 2. Bilateral perirenal fat stranding more prominent on the left may be related to inflammation. 3. Diverticulosis, sigmoid colon. 4. Fat containing periumbilical hernia. 5. Bilateral total hip arthroplasties summary Reading Location: [place] [id number]
[2024-10-11] MEDS: metroNIDAZOLE 500 MG/100 ML BAG 100 MG IV (10:59)
--- NOTE | 2024-10-11 11:10 | PCM.CONS.GEN ---
Assessment & Plan Assessment/Plan (1) CHF (congestive heart failure): (2) Cellulitis: PLAN: On ceftriaxone, flagyl. Redness in L groin. No fever, no leukocytosis. Will add vanc. Will follow, thank you, d/w Dr. Rich HPI Consult Data Date of Consult: 10/11/24 HPI Narrative Reason for Consultation: cellulitis HPI Narrative: AVELINA BULL, is a 79 M with CHF, COPD, DM presented 3/5 with several days fatigue, increased edema, dyspnea. No fever or chills. Gets intermittent cellulitis, now in L groin for several weeks, continues to slowly worsen. No drainage. Admitted here, now on ceftriaxone, flagyl being added. Full ROS performed and neg except as noted above. FORMERLY [facility], 1928–1983 Medical History Rash History of steroid therapy Tremor On home oxygen therapy COPD (chronic obstructive pulmonary disease) Hoarseness Chronic cough History of edema Normal Holter exam Hypertension Hyperbilirubinemia Transaminitis Thrombocytopenia Obesity Wears glasses Wears partial dentures Cancer Arthritis High cholesterol Tremor of both hands Ulcerated colon Shortness of breath on exertion Leg cramps History of stress test History of echocardiogram Cardiology follow-up encounter History of atrial fibrillation MGUS (monoclonal gammopathy of unknown significance) [place] light chain disease Ulcerative colitis Colitis Coagulopathy COVID-19 Anxiety Diabetes Former smoker CPAP (continuous positive airway pressure) dependence Sleep apnea Congestive heart failure (CHF) Atrial fibrillation 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, 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 Chronic diastolic heart failure Paroxysmal atrial flutter Type 2 diabetes mellitus SOB (shortness of breath) Home Medications ?Medication ?Instructions ?Recorded ?Last Taken ?Type potassium chloride 20 mEq 20 meq PO DAILY Low potassium 09/27/15 10/06/24 History tablet,extended release(part/cryst) atorvastatin 40 mg tablet 40 mg PO QHS Cholesterol 08/20/16 10/06/24 History metformin 500 mg tablet 500 mg PO BID Diabetes 05/09/19 10/06/24 History metoprolol tartrate 100 mg tablet 100 mg PO BID Afib 02/17/21 10/06/24 History fexofenadine 180 mg tablet 180 mg PO DAILY PRN PRN Allergic 01/11/22 07/10/24 History Symptoms prazosin 2 mg capsule 2 mg PO BID bp 08/08/22 10/06/24 History vedolizumab 300 mg intravenous 300 mg IV .per order 03/21/23 07/10/24 History solution (Entyvio) empagliflozin 10 mg tablet 10 mg PO DAILY 04/24/23 10/06/24 History (Jardiance) furosemide 20 mg tablet 20 mg PO DAILY Edema 06/20/23 10/06/24 History flecainide 50 mg tablet 50 mg PO Q12H #180 TABLETS 11/16/23 10/06/24 Rx tiotropium 2.5 mcg-olodaterol 2.5 2 puff inhalation DAILY SOB #3 ea 04/22/24 10/06/24 Rx mcg/actuation mist for inhalation (Stiolto Respimat) warfarin 2.5 mg tablet 2.5 mg PO QDAY blood thinner #90 05/20/24 10/06/24 Rx tabs prednisone 20 mg tablet 20 mg PO Q12H PRN COLON SYMPTOMS 09/27/24 10/06/24 History dicyclomine 20 mg tablet 20 mg PO 3XD 10/09/24 10/06/24 History ketoconazole 2 % shampoo 1 applic topical .COMPLEX 10/09/24 Unknown History Allergy/AdvReac Type Severity Reaction Status Date / Time amlodipine Allergy Severe Rash Verified 10/09/24 15:22 Penicillins Allergy Hives Verified 10/09/24 15:22 azithromycin AdvReac Diarrhea Verified 10/09/24 15:22 celecoxib (From Celebrex) AdvReac RECTAL Verified 10/09/24 15:22 BLEEDING Family History Mother Colon cancer Heart disease Father CAD (coronary artery disease) Sister Diabetes Brother Heart disease Diabetes Surgical History History of ERCP History of intraocular lens implant History of knee surgery History of bilateral hip replacements History of radiofrequency ablation procedure for cardiac arrhythmia (~08/11/15) Social History household members: spouse Smoking Status: Former smoker how long ago did patient quit smokin + years alcohol intake: never substance use type: does not use caffeine: Yes Type: coffee Number of servings: 3 Physical Exam Const alert, oriented x3 and no apparent distress General Appearance: cooperative HEENT normocephalic and head/scalp atraumatic Eyes PERRL and EOMs intact bilaterally Neck supple and No nodes Resp normal air movement Auscultation: diminished lung sounds Cardio regular rate and regular rhythm GI soft to palpation and non-tender; Negative for non-distended Extremity General Extremity: edema Skin Skin Narrative: L groin erythema, mild induration and tenderness Neuro CN's II-XII intact bilaterally Lab / Micro Data Attestation: I reviewed the patient's lab results. 10/11/24 05:07 10/11/24 05:07 Labs: Laboratory Results - last 24 hr 10/10/24 11:07: POC Glucose 195 H 10/10/24 16:52: POC Glucose 225 H 10/10/24 22:52: POC Glucose 181 H 10/11/24 05:07: WBC 10.3, RBC 3.73 L, Hgb 11.6 L, Hct 35.0 L, MCV 93.8, MCH 31.1, MCHC 33.1, RDW Std Deviation 50.8 H, RDW Coeff of Jadon 14.6, Plt Count 163, MPV 9.6, Immature Gran % (Auto) 0.600, Neut % (Auto) 78.7 H, Lymph % (Auto) 16.7 L, [place] % (Auto) 3.5, Eos % (Auto) 0.3, Baso % (Auto) 0.2, Absolute Neuts (auto) 8.1 H, Absolute Lymphs (auto) 1.71, Nucleated RBC % 0, PT 21.9 H, INR 1.9, Sodium 137, Potassium 3.6, Chloride 104, Carbon Dioxide 17.5 L, Anion Gap 15, BUN 28 H, Creatinine 1.83 H, Estim Creat Clear Calc 45.26 L, Est GFR (MDRD) Non-Af 37 L, BUN/Creatinine Ratio 15.5, Glucose 186 H, Calcium 7.7 10/11/24 06:36: POC Glucose 174 H Micro: Microbiology 10/10/24 01:30 Mucosa - Nasopharyngeal Respiratory Panel (PCR) - Final Imaging Radiology Impression Echocardiogram 10/10/24 05:55 Interpretation Summary The study was technically difficult. Mild concentric left ventricular hypertrophy. The left ventricular ejection fraction is 65 %. Stage 1 diastolic dysfunction. There is moderate biatrial dilatation. Ordering Physician: Julia Vaca Referring Physician: Nilson Otero Performed By: Peng Julien RCS Pelvis CT 10/11/24 10:05 IMPRESSION: 1. Findings concerning for CELLULITIS involving the left upper thigh particular along its medial aspect. 2. Bilateral perirenal fat stranding more prominent on the left may be related to inflammation. 3. Diverticulosis, sigmoid colon. 4. Fat containing periumbilical hernia. 5. Bilateral total hip arthroplasties summary Reading Location: [place] [id number]
[2024-10-11 11:28] LABS: Bedside Glucose 195 mg/dL (74-106)
[2024-10-11] MEDS: Vancomycin HCl 2,000 MG in 0.9% Normal Saline (500mL Bag) 500 ML 250 MG IV (12:32)
--- NOTE | 2024-10-11 12:40 | PCM.RX.CS ---
Consult Antibiotic Management Pharmacy has been consulted to manage selected antibiotic: Vancomycin Type of Intervention Type of Consult: New start Suspected Infection Suspected Infection: Skin/Soft tissue Labs Labs: Sodium 137 mmol/L (133-145) 10/11/24 05:07 Potassium 3.6 mmol/L (3.3-5.1) 10/11/24 05:07 Chloride 104 mmol/L (98-108) 10/11/24 05:07 Carbon Dioxide 17.5 mmol/L (21.0-32.0) L 10/11/24 05:07 Anion Gap 15 (5-15) 10/11/24 05:07 BUN 28 mg/dL (4-19) H 10/11/24 05:07 Creatinine 1.83 mg/dL (0.70-1.20) H 10/11/24 05:07 Est GFR (MDRD) Non-Af 37 (>60) L 10/11/24 05:07 BUN/Creatinine Ratio 15.5 RATIO (10-20) 10/11/24 05:07 Glucose 186 mg/dL (70-99) H 10/11/24 05:07 Microbiology Microbiology: Microbiology 10/10/24 01:30 Mucosa - Nasopharyngeal Respiratory Panel (PCR) - Final 10/09/24 15:30 Mucosa - Nose SARS-CoV-2, Influenza & RSV (PCR) - Final Dosing Weight Weight used for dosin kg Estimated Creatinine Clearance Estimated Creatinine Clearance: 45 ML/MIN Goal Trough Goal Trough: 15-20 mcg/mL Pharmacy Plan for Drug Dosing Pharmacy Plan for Drug Dosing: Give initial load dose of 2000mg IV x1, then continue with 1000mg q12h per [facility] dosing protocol. Check a trough before the 4th overall dose. Pharmacy Service will continue to monitor and adjust dosing as required. Follow-Up Labs Follow-Up Labs: Trough: Vancomycin Date/Time Labs Ordered Labs to be done on [date and time ordered]: 10/13/24 00:30
--- NOTE | 2024-10-11 14:02 | PN.HOSP_ITS ---
Reason for Visit Reason for Visit: Diagnoses Heart failure, unspecified (10/09/24) Cellulitis, unspecified (10/09/24) Objective Data Objective Data Vital Signs: Vital Signs Temp Pulse Resp BP Pulse Ox O2 Del Method O2 Flow Rate 97.8 F 82 17 117/69 97 Nasal Cannula 4 10/11/24 09:36 10/11/24 13:29 10/11/24 13:29 10/11/24 09:39 10/11/24 09:54 10/11/24 09:42 10/11/24 09:54 Oxygen Flow Rate (L/min) 4 Oxygen Delivery Method Nasal Cannula Weight: 296 lb 4.82 oz Body Mass Index (BMI) 43.7 Intake & Output: Intake and Output for Last 24 Hours 10/09/24 10/10/24 10/11/24 23:59 23:59 23:59 Intake Total 804 / 804 100 / 100 Output Total 1350 / 1350 700 / 700 Balance -546 / -546 -600 / -600 Lab / Micro Data 10/11/24 05:07 10/11/24 05:07 Labs: Laboratory Results - last 24 hr 10/10/24 16:52: POC Glucose 225 H 10/10/24 22:52: POC Glucose 181 H 10/11/24 05:07: WBC 10.3, RBC 3.73 L, Hgb 11.6 L, Hct 35.0 L, MCV 93.8, MCH 31.1, MCHC 33.1, RDW Std Deviation 50.8 H, RDW Coeff of Jadon 14.6, Plt Count 163, MPV 9.6, Immature Gran % (Auto) 0.600, Neut % (Auto) 78.7 H, Lymph % (Auto) 16.7 L, Bleckley % (Auto) 3.5, Eos % (Auto) 0.3, Baso % (Auto) 0.2, Absolute Neuts (auto) 8.1 H, Absolute Lymphs (auto) 1.71, Nucleated RBC % 0, PT 21.9 H, INR 1.9, Sodium 137, Potassium 3.6, Chloride 104, Carbon Dioxide 17.5 L, Anion Gap 15, B UN 28 H, Creatinine 1.83 H, Estim Creat Clear Calc 45.26 L, Est GFR (MDRD) Non- Af 37 L, BUN/Creatinine Ratio 15.5, Glucose 186 H, Calcium 7.7 10/11/24 06:36: POC Glucose 174 H 10/11/24 10:57: POC Glucose 195 H Micro: Microbiology 10/10/24 01:30 Mucosa - Nasopharyngeal Respiratory Panel (PCR) - Final 10/09/24 15:30 Mucosa - Nose SARS-CoV-2, Influenza & RSV (PCR) - Final Radiography Diagnostic Testing: Radiology Impression Echocardiogram 10/10/24 05:55 Interpretation Summary The study was technically difficult. Mild concentric left ventricular hypertrophy. The left ventricular ejection fraction is 65 %. Stage 1 diastolic dysfunction. There is moderate biatrial dilatation. Ordering Physician: Julia Vaca Referring Physician: Nilson Otero Performed By: Peng Julien RCS Pelvis CT 10/11/24 10:05 IMPRESSION: 1. Findings concerning for CELLULITIS involving the left upper thigh particular along its medial aspect. 2. Bilateral perirenal fat stranding more prominent on the left may be related to inflammation. 3. Diverticulosis, sigmoid colon. 4. Fat containing periumbilical hernia. 5. Bilateral total hip arthroplasties summary Reading Location: [place] [address] Physical Exam Narrative Seen and examined. Patient shortness of breath is better. He can lay down. No chest pain. Left groin redness getting better but has hardness and swelling in upper medial aspect of thigh Discussed with the patient's near the bedside. Patient had shortness of breath on and off for 3 to 4 days prior to admission. Denies chest pain pressure. Denies URI symptoms or fever. Physical exam General: Alert, Oriented x3, Cooperative. BMI 43.1 kg/m? HEENT: Atraumatic, PERRLA, EOMI, Normocephalic Oral: Deep oropharyngeal structures could not be visualized. Neck: Thick white neck. JVD not discernible. Supple, Negative Carotid Bruits Chest wall/Lungs: Air entry diminished in bilateral lungs. Bilateral lungs clear. Cardiovascular: Regular rate, Regular Rhythm, Normal S1, Normal S2, soft systolic murmur Abdomen: Bowel Sounds Present, Soft, Non Tender, Non-Distended, large pelvic pannus : No dysuria. No renal angle tenderness. No suprapubic tenderness. Extremities: Bilateral 3+ pitting edema from mid thigh downwards. Capillary Refill Less than 3 Seconds Skin: Cellulitis with redness, tenderness, induration of left medial aspect of thigh up to groin. About 7 to 8 cm induration/firmness of left upper thigh possible phlegmon. No fluctuation Musculoskeletal: No Tenderness to Palpation of Joints or Extremities. Bilateral hip replacement. ROM restricted Neurological: Cranial nerves II-XII grossly intact, DTR 2+/4. No acute focal neurological deficit. Psych/Mental Status: N flat affect Assessment & Plan Assessment/Plan (1) CHF (congestive heart failure): PLAN: Plan The patient is a 79 y/o M was brought to ED by EMS for increased shortness of breath/dyspnea, worse on exertion, orthopnea, weight gain, shaking for about 4 days but got worse 1 day prior to admission . Pulse ox was 89% on room air. Patient was started on 4 L of oxygen in ED. Usually patient on home O2 as needed #1. Acute Hypoxia secondary to Acutely Decompensated HFpEF: Patient being admitted in PCU. Patient has intermittent troponin enzymes. Mild pericardial effusion. On IV Lasix. Heart failure core measures including intake and output, fluid restriction less than 1500 mL, daily weight monitoring, kidney and electrolytes monitoring. Most recent ECHO noted 11/01/2021 with EF 65% with no evidence of diastolic dysfunction, trivial MVI. Repeat echo proBNP is very high about 13,000. Troponin minimally elevated, all 3 in similar range. 2D echo was done which was technically difficult, EF 65%. Interpretation Summary Mild concentric left ventricular hypertrophy. The left ventricular ejection fraction is 65 %. Stage 1 diastolic dysfunction. There is moderate biatrial dilatation. 10/05: Shortness of breath is better. Continue Lasix. #2. Left inner thigh/left inguinal region redness, perineal infection/deep tissue infection. Area of redness has improved but there is formed area of about 7 to 8 cm left upper thigh, tender inflamed. No fluid inside. CT pelvis was done without contrast which shows bilateral peritoneal fat stranding, prominent left with subcutaneous pockets of air. Left upper thigh with cellulitis, edematous larger than right. Patient has perineal subcutaneous/deep fascia, deep tissue infection, therefore plastic surgeon and general surgeon Dr. Silvestre and Dr. Johnson called. Recommended wound debridement surgery there patient made NPO. Vitamin K 5 mg IV given his INR is 1.8. Hold warfarin. Earlier ID was consulted and vancomycin was added on the top of ceftriaxone and Flagyl. Discussed with the patient and his regarding the finding of CT pelvis, indication of surgery and further expectation. PAF/flutter: Patient with evidence of flutter upon presentation, continue patient home flecainide, metoprolol regimen as well as Coumadin. INR 1.9. 10/11 INR 1.8. Hold warfarin. #3. Diabetes mellitus type II: Hold oral home regimen, ADA diet, Accu-Chek before meals and at bedtime with Humalog sliding scale coverage and hypoglycemia protocol. 10/11: Earlier Jardiance was discontinued because probably that major reason for perineal/thigh infection. A1c ordered for tomorrow a.m. #4. Hypertension: Continue home regimen including metoprolol, IV Lasix, PRN hydralazine. #5. Hyperlipidemia: Continue home statin regimen. AM FLP. #6. Chronic COPD: Continue oxygen. DuoNeb nebulization. Incentive spirometry. #7. Chronic Kidney Disease Stage III, unclear subtype per GFR trending: Admission BUN/Cr 18/1.45, GFR 49, baseline renal function primarily 1.0-1 point, repeat BMP in AM. #8. Chronic macrocytic anemia: Admission hemoglobin 12.9, MCV 97.1, baseline hemoglobin primarily 13 more recently but has vacillated in the past was primarily 11-12, continue to trend. #9. Morbid Obesity: Weight loss and lifestyle changes encouraged. #10. Former tobacco use: Encourage continued tobacco cessation. #12. Ulcerative colitis: Noted history, most recent medication per current list Entyvio outpatient but unclear last usage, encourage continued outpatient follow-up with GI as previously arranged. 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 #14. SILVER: CPAP nightly. DVT prophylaxis: Will continue Coumadin with INR trending. CODE status: Patient NETTA is his and living will is currently in place. Discussed CODE status at length including difference between FULL code, DNR-CCA and DNR-CC status. Following discussions about the differences in these status, requested Full Code status. Advanced Care Planning Face to Face Time: 16 minutes. Total time of the visit including total time spent in counseling or coordination of care, (more than 50% of the total time, spent in obtaining medical information from nurses and other ancillary care providers ,explaining to the patient about labs, imaging, diagnosis and management of active complex medical conditions), complex management of deep tissue infection of the perineal region, heart failure, discussion with plastic surgeon and general surgeon, review of labs and imaging is 40 minutes. Microbiology Past 72 Hours 10/10/24 01:30 Mucosa - Nasopharyngeal Respiratory Panel (PCR) - Final 10/09/24 15:30 Mucosa - Nose SARS-CoV-2, Influenza & RSV (PCR) - Final Laboratory Results 10/10/24 16:52: POC Glucose 225 H 10/10/24 22:52: POC Glucose 181 H 10/11/24 05:07: WBC 10.3, RBC 3.73 L, Hgb 11.6 L, Hct 35.0 L, MCV 93.8, MCH 31.1, MCHC 33.1, RDW Std Deviation 50.8 H, RDW Coeff of Jadon 14.6, Plt Count 163, MPV 9.6, Immature Gran % (Auto) 0.600, Neut % (Auto) 78.7 H, Lymph % (Auto) 16.7 L, Bleckley % (Auto) 3.5, Eos % (Auto) 0.3, Baso % (Auto) 0.2, Absolute Neuts (auto) 8.1 H, Absolute Lymphs (auto) 1.71, Nucleated RBC % 0, PT 21.9 H, INR 1.9, Sodium 137, Potassium 3.6, Chloride 104, Carbon Dioxide 17.5 L, Anion Gap 15, B UN 28 H, Creatinine 1.83 H, Estim Creat Clear Calc 45.26 L, Est GFR (MDRD) Non- Af 37 L, BUN/Creatinine Ratio 15.5, Glucose 186 H, Calcium 7.7 10/11/24 06:36: POC Glucose 174 H 10/11/24 10:57: POC Glucose 195 H Charges/Coding Visit Charges Inpatient E&M: 56389 Subs Hosp L3
--- NOTE | 2024-10-11 14:10 | EX.PCM.CON.S ---
Assessment & Plan Assessment/Plan (1) Cellulitis: PLAN: Patient is 79-year-old male admitted for COPD and CHF exacerbation with left thigh cellulitis that was imaged earlier today showing concern for possible deeper necrotizing soft tissue infection. He is a diabetic with suboptimal glucose control and hygiene challenges related to his habitus. This certainly puts him at increased risk for this infection. Given the patient's imaging and appearance on exam I recommend emergent incision and drainage procedure. Operating room has already been notified. Primary team has been asked to begin reversal of patient's anticoagulation with a small dose of vitamin K. Patient was made n.p.o. just prior to my arrival so we will have to plan for rapid sequence intubation. Tentative plans for accompaniment by plastic surgery with this initial incision and drainage procedure. Consents to be obtained but were discussed with patient and his . They denied any further questions. Further wound care instructions will be enumerated following operation. Oliverio Johnson MD General Surgery Endocrine Surgery Pager: [facility] [address] [place] [address], [facility], [address] [place] [id number] Office: [phone] HPI Consult Data Date of Consult: 10/11/24 HPI Narrative Reason for Consultation: Left thigh soft tissue infection HPI Narrative: OLIVERIO BULL, is a 79 M who is admitted to [facility] under the hospitalist service for management of a CHF exacerbation and acute onset shortness of breath but was also noted to have left thigh cellulitis. According to hospitalist, patient's left thigh cellulitis appeared somewhat decreased in its area of affect but was harder in consistency on exam. This change in exam prompted them to pursue CT imaging of the pelvis which showed evidence of subcutaneous gas tracking along the left medial thigh. In turn, this prompted consultation to plastic surgery and general surgery. Patient notes that he has had issues with skin infections of this type on multiple occasions. He suggests the current episode began approximately 3 weeks ago. He reports increased effort to just keep the area clean and apply powder for drying. He denies any use of antibiotics. He is a diabetic and admits to not regularly checking his blood sugars at home. Further, he confesses that his hygiene is perhaps not optimal and he is only showering twice weekly. [facility] Medical History Rash History of steroid therapy Tremor On home oxygen therapy COPD (chronic obstructive pulmonary disease) Hoarseness Chronic cough History of edema Normal Holter exam Hypertension Hyperbilirubinemia Transaminitis Thrombocytopenia Obesity Wears glasses Wears partial dentures Cancer Arthritis High cholesterol Tremor of both hands Ulcerated colon Shortness of breath on exertion Leg cramps History of stress test History of echocardiogram Cardiology follow-up encounter History of atrial fibrillation MGUS (monoclonal gammopathy of unknown significance) Merrill light chain disease Ulcerative colitis Colitis Coagulopathy COVID-19 Anxiety Diabetes Former smoker CPAP (continuous positive airway pressure) dependence Sleep apnea Congestive heart failure (CHF) Atrial fibrillation 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, adult custodial current use of 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 Chronic diastolic heart failure Paroxysmal atrial flutter Type 2 diabetes mellitus SOB (shortness of breath) Home Medications ?Medication ?Instructions ?Recorded ?Last Taken ?Type potassium chloride 20 mEq 20 meq PO DAILY Low potassium 09/27/15 10/06/24 History tablet,extended release(part/cryst) atorvastatin 40 mg tablet 40 mg PO QHS Cholesterol 08/20/16 10/06/24 History metformin 500 mg tablet 500 mg PO BID Diabetes 05/09/19 10/06/24 History metoprolol tartrate 100 mg tablet 100 mg PO BID Afib 02/17/21 10/06/24 History fexofenadine 180 mg tablet 180 mg PO DAILY PRN PRN Allergic 01/11/22 07/10/24 History Symptoms prazosin 2 mg capsule 2 mg PO BID bp 08/08/22 10/06/24 History vedolizumab 300 mg intravenous 300 mg IV .per order 03/21/23 07/10/24 History solution (Entyvio) empagliflozin 10 mg tablet 10 mg PO DAILY 04/24/23 10/06/24 History (Jardiance) furosemide 20 mg tablet 20 mg PO DAILY Edema 06/20/23 10/06/24 History flecainide 50 mg tablet 50 mg PO Q12H #180 TABLETS 11/16/23 10/06/24 Rx tiotropium 2.5 mcg-olodaterol 2.5 2 puff inhalation DAILY SOB #3 ea 04/22/24 10/06/24 Rx mcg/actuation mist for inhalation (Stiolto Respimat) warfarin 2.5 mg tablet 2.5 mg PO QDAY blood thinner #90 05/20/24 10/06/24 Rx tabs prednisone 20 mg tablet 20 mg PO Q12H PRN COLON SYMPTOMS 09/27/24 10/06/24 History dicyclomine 20 mg tablet 20 mg PO 3XD 10/09/24 10/06/24 History ketoconazole 2 % shampoo 1 applic topical .COMPLEX 10/09/24 Unknown History Allergy/AdvReac Type Severity Reaction Status Date / Time amlodipine Allergy Severe Rash Verified 10/09/24 15:22 Penicillins Allergy Hives Verified 10/09/24 15:22 azithromycin AdvReac Diarrhea Verified 10/09/24 15:22 celecoxib (From Celebrex) AdvReac RECTAL Verified 10/09/24 15:22 BLEEDING Family History Mother Colon cancer Heart disease Father CAD (coronary artery disease) Sister Diabetes Brother Heart disease Diabetes Surgical History History of ERCP History of intraocular lens implant History of knee surgery History of bilateral hip replacements History of radiofrequency ablation procedure for cardiac arrhythmia (~08/11/15) Social History household members: spouse Smoking Status: Former smoker how long ago did patient quit smokin + years alcohol intake: never substance use type: does not use caffeine: Yes Type: coffee Number of servings: 3 Physical Exam Const alert and oriented x3 Resp Resp Narrative: tachypneic GI GI Narrative: Morbidly obese with chronic?appearing fat?incarcerated umbilical hernia that is mildly tender with palpation. Hernia contents are soft and at least partially reducible. Skin Skin Narrative: Patient with firm, blanchable, woody edema of left thigh with erythema there is exquisite tenderness with palpation. I do not palpate any crepitus definitively. Lab / Micro Data 10/11/24 05:07 10/11/24 05:07 Labs: Laboratory Results - last 24 hr 10/10/24 16:52: POC Glucose 225 H 10/10/24 22:52: POC Glucose 181 H 10/11/24 05:07: WBC 10.3, RBC 3.73 L, Hgb 11.6 L, Hct 35.0 L, MCV 93.8, MCH 31.1, MCHC 33.1, RDW Std Deviation 50.8 H, RDW Coeff of Jadon 14.6, Plt Count 163, MPV 9.6, Immature Gran % (Auto) 0.600, Neut % (Auto) 78.7 H, Lymph % (Auto) 16.7 L, Kerr % (Auto) 3.5, Eos % (Auto) 0.3, Baso % (Auto) 0.2, Absolute Neuts (auto) 8.1 H, Absolute Lymphs (auto) 1.71, Nucleated RBC % 0, PT 21.9 H, INR 1.9, Sodium 137, Potassium 3.6, Chloride 104, Carbon Dioxide 17.5 L, Anion Gap 15, BUN 28 H, Creatinine 1.83 H, Estim Creat Clear Calc 45.26 L, Est GFR (MDRD) Non-Af 37 L, BUN/Creatinine Ratio 15.5, Glucose 186 H, Calcium 7.7 10/11/24 06:36: POC Glucose 174 H 10/11/24 10:57: POC Glucose 195 H Imaging Radiology Impression Echocardiogram 10/10/24 05:55 Interpretation Summary The study was technically difficult. Mild concentric left ventricular hypertrophy. The left ventricular ejection fraction is 65 %. Stage 1 diastolic dysfunction. There is moderate biatrial dilatation. Ordering Physician: Julia Vaca Referring Physician: Nilson Otero Performed By: Peng Julien RCS Pelvis CT 10/11/24 10:05 IMPRESSION: 1. Findings concerning for CELLULITIS involving the left upper thigh particular along its medial aspect. 2. Bilateral perirenal fat stranding more prominent on the left may be related to inflammation. 3. Diverticulosis, sigmoid colon. 4. Fat containing periumbilical hernia. 5. Bilateral total hip arthroplasties summary Reading Location: [facility] Charges/Coding Visit Charges Inpatient E&M: 87073 Init Hosp L2
[2024-10-11] MEDS: Phytonadione (Vit K) 5 MG in 0.9% Normal Saline (50mL Bag) 50 ML 150 MG IV (14:24)
--- NOTE | 2024-10-11 14:40 | EX.PCM.CON.S ---
Assessment & Plan Assessment/Plan (1) Cellulitis: (2) Abscess of left thigh: PLAN: Abscess of left thigh and groin. Concern for extension based on the CT scan possibly into the perineum. Agree with general surgery plan for I&D. Plastics will be available to assist and for wound care. I talked the patient extensively about the risks of surgery, including bleeding, infection, damage to surrounding structures, surgical site dehiscence and wound formation, scaring, need for wound care, need for repeat operations, failure to obtain the desired result, DVT/PE, and the risks of anesthesia including , including stroke (from low blood pressure/ischemia or clot). The benefits and alternatives of this surgery were also discussed. All of their questions were answered, and they agreed to proceed with surgery. HPI Consult Data Date of Consult: 10/11/24 HPI Narrative HPI Narrative: AVELINA BULL is a 79 M with complicated past medical history including hypertension, type 2 diabetes, PAF/flutter (on Coumadin) who was admitted yesterday to [facility] for a heart failure exacerbation and was noted to have left groin and thigh cellulitis with abscess and air in the thigh and groin. I recommended general surgery consultation and they recommended incision and drainage procedure, and plastic surgery agreed to assist. Today on the floor patient has stable vital signs with a normal white blood cell count of 10,000. Cr is 1.83 and his glucose is 186. Hgb is 11.6. INR 1.9 He reports sharp severe pain in his left thigh worsened by movements and improved with rest. He reports that this problem came on suddenly. No pain in anus or penis/testicles. [facility]LY [facility] Medical History Rash History of steroid therapy Tremor On home oxygen therapy COPD (chronic obstructive pulmonary disease) Hoarseness Chronic cough History of edema Normal Holter exam Hypertension Hyperbilirubinemia Transaminitis Thrombocytopenia Obesity Wears glasses Wears partial dentures Cancer Arthritis High cholesterol Tremor of both hands Ulcerated colon Shortness of breath on exertion Leg cramps History of stress test History of echocardiogram Cardiology follow-up encounter History of atrial fibrillation MGUS (monoclonal gammopathy of unknown significance) [place] light chain disease Ulcerative colitis Colitis Coagulopathy COVID-19 Anxiety Diabetes Former smoker CPAP (continuous positive airway pressure) dependence Sleep apnea Congestive heart failure (CHF) Atrial fibrillation 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, 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 Chronic diastolic heart failure Paroxysmal atrial flutter Type 2 diabetes mellitus SOB (shortness of breath) Home Medications ?Medication ?Instructions ?Recorded ?Last Taken ?Type potassium chloride 20 mEq 20 meq PO DAILY Low potassium 09/27/15 10/06/24 History tablet,extended release(part/cryst) atorvastatin 40 mg tablet 40 mg PO QHS Cholesterol 08/20/16 10/06/24 History metformin 500 mg tablet 500 mg PO BID Diabetes 05/09/19 10/06/24 History metoprolol tartrate 100 mg tablet 100 mg PO BID Afib 02/17/21 10/06/24 History fexofenadine 180 mg tablet 180 mg PO DAILY PRN PRN Allergic 01/11/22 07/10/24 History Symptoms prazosin 2 mg capsule 2 mg PO BID bp 08/08/22 10/06/24 History vedolizumab 300 mg intravenous 300 mg IV .per order 03/21/23 07/10/24 History solution (Entyvio) empagliflozin 10 mg tablet 10 mg PO DAILY 04/24/23 10/06/24 History (Jardiance) furosemide 20 mg tablet 20 mg PO DAILY Edema 06/20/23 10/06/24 History flecainide 50 mg tablet 50 mg PO Q12H #180 TABLETS 11/16/23 10/06/24 Rx tiotropium 2.5 mcg-olodaterol 2.5 2 puff inhalation DAILY SOB #3 ea 04/22/24 10/06/24 Rx mcg/actuation mist for inhalation (Stiolto Respimat) warfarin 2.5 mg tablet 2.5 mg PO QDAY blood thinner #90 05/20/24 10/06/24 Rx tabs prednisone 20 mg tablet 20 mg PO Q12H PRN COLON SYMPTOMS 09/27/24 10/06/24 History dicyclomine 20 mg tablet 20 mg PO 3XD 10/09/24 10/06/24 History ketoconazole 2 % shampoo 1 applic topical .COMPLEX 10/09/24 Unknown History Allergy/AdvReac Type Severity Reaction Status Date / Time amlodipine Allergy Severe Rash Verified 10/09/24 15:22 Penicillins Allergy Hives Verified 10/09/24 15:22 azithromycin AdvReac Diarrhea Verified 10/09/24 15:22 celecoxib (From Celebrex) AdvReac RECTAL Verified 10/09/24 15:22 BLEEDING Family History Mother Colon cancer Heart disease Father CAD (coronary artery disease) Sister Diabetes Brother Heart disease Diabetes Surgical History History of ERCP History of intraocular lens implant History of knee surgery History of bilateral hip replacements History of radiofrequency ablation procedure for cardiac arrhythmia (~08/11/15) Social History household members: spouse Smoking Status: Former smoker how long ago did patient quit smokin + years alcohol intake: never substance use type: does not use caffeine: Yes Type: coffee Number of servings: 3 Physical Exam Narrative Extremities: Patient with firm, blanchable, woody induration of left thigh with erythema there is exquisite tenderness with palpation. No palpable crepitus. Groin is without tenderness to palpation. No TTP of the perineum, although he reports scrotal TTP. No pain at the base of the penis or in the femoral triangle. Resp Effort and Inspection: able to speak in complete sentences Auscultation: rhonchi Cardio Rate: regular rate Lab / Micro Data 10/11/24 05:07 10/11/24 05:07 Labs: Laboratory Results - last 24 hr 10/10/24 16:52: POC Glucose 225 H 10/10/24 22:52: POC Glucose 181 H 10/11/24 05:07: WBC 10.3, RBC 3.73 L, Hgb 11.6 L, Hct 35.0 L, MCV 93.8, MCH 31.1, MCHC 33.1, RDW Std Deviation 50.8 H, RDW Coeff of Jadon 14.6, Plt Count 163, MPV 9.6, Immature Gran % (Auto) 0.600, Neut % (Auto) 78.7 H, Lymph % (Auto) 16.7 L, [place] % (Auto) 3.5, Eos % (Auto) 0.3, Baso % (Auto) 0.2, Absolute Neuts (auto) 8.1 H, Absolute Lymphs (auto) 1.71, Nucleated RBC % 0, PT 21.9 H, INR 1.9, Sodium 137, Potassium 3.6, Chloride 104, Carbon Dioxide 17.5 L, Anion Gap 15, BUN 28 H, Creatinine 1.83 H, Estim Creat Clear Calc 45.26 L, Est GFR (MDRD) Non-Af 37 L, BUN/Creatinine Ratio 15.5, Glucose 186 H, Calcium 7.7 10/11/24 06:36: POC Glucose 174 H 10/11/24 10:57: POC Glucose 195 H Imaging Radiology Impression Echocardiogram 10/10/24 05:55 Interpretation Summary The study was technically difficult. Mild concentric left ventricular hypertrophy. The left ventricular ejection fraction is 65 %. Stage 1 diastolic dysfunction. There is moderate biatrial dilatation. Ordering Physician: Julia Vaca Referring Physician: Nilson Otero Performed By: Peng Julien, [facility] Pelvis CT 10/11/24 10:05 IMPRESSION: 1. Findings concerning for CELLULITIS involving the left upper thigh particular along its medial aspect. 2. Bilateral perirenal fat stranding more prominent on the left may be related to inflammation. 3. Diverticulosis, sigmoid colon. 4. Fat containing periumbilical hernia. 5. Bilateral total hip arthroplasties summary Reading Location: [place] [address] I independently reviewed the CT scan
[2024-10-11] MEDS: 0.9% Normal Saline (1000mL) 1,000 ML 15 ML IV (15:10)
--- NOTE | 2024-10-11 15:10 | PCM.PRE.AN2 ---
ASA Classification* ASA Classification ASA Classification: 4 and E Assessment & Plan Anesthesia* Anesthesia Assessment Anesthesia Assessment: Discussed sedation and/or anesthesia options, risks, benefits, and alternatives with patient/parents/legal guardian/POA. Questions invited. The patient/parents/legal guardian/POA seems to understand and agrees to proceed with anesthesia plan. Reviewed the physical assessment, medical history, allergy history and patient home medications list prior to surgery/procedure/anesthetic and documented any changes. Performed airway and anesthesia risk assessments. Anesthesia Type Anesthesia Type: General Anesthesia Focused Assessment* Temperature: 97.8 F Pulse Rate: 82 Blood Pressure: 117/69 Respiratory Rate: 17 Pulse Ox: 97 Oxygen Flow Rate (L/min): 4 Airway Assessment Mouth opens: >3 cm Mallampati Score: II Focused Labs Anesthesia Preop lab: CBC WBC 10.3 K/mm3 (4.4-11.0) 10/11/24 05:07 10/11/24 RBC 3.73 M/mm3 (4.6-6.2) L 10/11/24 05:07 10/11/24 Hgb 11.6 g/dL (13.0-16.5) L 10/11/24 05:07 10/11/24 Hct 35.0 % (40-54) L 10/11/24 05:07 10/11/24 Plt Count 163 K/mm3 (150-450) 10/11/24 05:07 10/11/24 CHEMISTRY Potassium 3.6 mmol/L (3.3-5.1) 10/11/24 05:07 10/11/24 Sodium 137 mmol/L (133-145) 10/11/24 05:07 10/11/24 Magnesium 2.2 mg/dL (1.5-2.2) 10/10/24 06:02 10/10/24 Phosphorus 3.7 mg/dL (2.5-4.9) 05/01/24 06:13 05/01/24 BUN 28 mg/dL (4-19) H 10/11/24 05:07 10/11/24 Creatinine 1.83 mg/dL (0.70-1.20) H 10/11/24 05:07 10/11/24 Glucose 186 mg/dL (70-99) H 10/11/24 05:07 10/11/24 POC Glucose 195 mg/dL (74-106) H 10/11/24 10:57 10/11/24 TSH 1.87 uIU/mL (0.358-3.74) 11/01/21 05:04 11/01/21 COAG PT 21.9 SECONDS (11.7-14.9) H 10/11/24 05:07 10/11/24 INR 6.3 H* 05/13/24 15:23 05/13/24 Pre-Assessment Diagnosis/Proposed Procedure Planned Operative Procedure(s): I&D left thigh abscess, necrotizing soft tissue infection Anesthesia History Anesthesia History - operations technician: Anesthesia History - operations technician Hx Hospitalization Yes: [facility]/ 09/27/24 10:05 PANCREATITIS Any Problems With Anesthesia No 09/27/24 10:05 Cholinesterase deficiency No 09/27/24 10:05 You/Your Family Experience No 09/27/24 10:05 fever (hyperthermia) with Relationship Recent Exposure to Contagious No 07/11/24 10:57 Disease Does patient have nerve No 09/27/24 10:05 stimulator Patient instructed to have device shut off --Does patient have Pacemaker or ICD? When Was Last Pacemaker Check QUESTION #4 FULL TEXT: You/Your Family Experience fever (hyperthermia) with Anesthesia Last Oral Intake Last Oral intake: Last Oral Intake NPO since Meds taken in AM with sips of water? Meds patient instructed to take am of surgery PONV PONV - operations technician: PONV - operations technician Female HX of Motion Sickness HX of N/V After Surgery Non-Smoker Duration of Surgery greater than 60 minutes Number of Risk Factors PONV Score Height & Weight Height & Weight: Anesthesia: Height & Weight Height 5 ft 9 in 10/10/24 10:25 Weight: 134.4 kg 10/11/24 06:00 Body Mass Index (BMI) 43.7 10/11/24 06:00 Respiratory Assessment Respiratory Assessment - operations technician: Respiratory Tract Infection Hx - operations technician Hx Respiratory Tract Infection Yes: Patient has a chronic 09/27/24 10:05 cough STOP Sleep Apnea STOP Sleep Apnea - operations technician: STOP Sleep Apnea - operations technician Hx Hypertension Yes 10/10/24 10:01 Hx Sleep Apnea Yes 10/09/24 21:53 CPAP Yes: HS 10/09/24 21:53 BIPAP No 10/09/24 21:53 Do you snore loudly (louder than talking or can be heard Do you often feel tired/ fatigued/ sleepy during daytime? Has anyone observed you stop breathing during sleep? STOP Results Positive 10/09/24 21:53 QUESTION #5 FULL TEXT : Do you snore loudly (louder than talking or can be heard through closed doors)? 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 confused, unrespo /Reproduction History /Reproductive History - operations technician: /Reproductive Hx- operations technician Hx Now Gestational Age (in weeks): EDC: Hx Hx Para Hx Section SAB Active Medications Active Medications: Current Medications Generic Name Dose Route Start Last Admin Trade Name Freq PRN Reason Stop Dose Admin Acetaminophen 650 mg 10/09/24 22:15 Acetaminophen 325 Mg Tablet PO Q4H PRN PRN Fever, pain 1-10/10 Al Hydroxide/Mg Hydroxide 30 ml 10/09/24 22:15 Mag Hydrox/Al Hydrox/Simeth 30 Ml Udc PO Q6H PRN PRN Gastric Burning Albuterol/Ipratropium 3 ml 10/09/24 22:15 10/11/24 13:02 Ipratropium/Albuterol Sulfate 3 Ml Ampul.Neb INHALATION 3 ml Q6HWA.RT SASHA Administration Atorvastatin Calcium 40 mg 10/09/24 22:15 10/10/24 22:48 Atorvastatin Calcium 40 Mg Tablet PO 40 mg QHS SASHA Administration Dicyclomine HCl 20 mg 10/09/24 22:38 10/11/24 14:24 Dicyclomine 10 Mg Capsule PO Not Given TID SASHA Flecainide Acetate 50 mg 10/09/24 22:45 10/11/24 09:40 Flecainide 100 Mg Tablet PO 50 mg Q12 SASHA Administration Furosemide 40 mg 10/10/24 10:00 10/11/24 09:39 Furosemide 40 Mg/4 Ml Vial IV 40 mg BID@1000,1800 SASHA Administration Glucagon 1 mg 10/09/24 22:15 Glucagon 1 Mg/Ml Syringe IM X1 PRN HYPOGLYCEMIA Protocol Guaifenesin 2 tablet 10/10/24 16:15 10/11/24 09:39 Guaifenesin/D-Methorphan Tab.Sr.12h PO 2 tablet BID SASHA Administration Hydralazine HCl 10 mg 10/09/24 22:15 Hydralazine 20 Mg/Ml Vial IV Q4H PRN PRN SBP > 160 Protocol Dextrose 250 mls @ 0 mls/hr 10/09/24 22:15 Dextrose 10%-Water IV .Q0M PRN HYPOGLYCEMIA Protocol As Directed Ceftriaxone Sodium 1 gm in 50 mls @ 100 mls/hr 10/10/24 02:25 10/10/24 23:42 Rocephin IV Infused QHS SASHA Infusion Metronidazole 500 mg in 100 mls @ 100 mls/hr 10/11/24 09:45 10/11/24 12:29 Flagyl IV Infused Q8 SASHA Infusion Vancomycin IV-PHARMACY TO DOSE 500 mls @ 250 mls/hr 10/11/24 11:10 1 each/ Sodium Chloride IV X1 PRN Rx to Dose Protocol Vancomycin HCl 1,000 mg in 200 mls @ 200 mls/hr 10/12/24 01:00 Vancomycin IV Q12H SASHA Sodium Chloride 1,000 mls @ 15 mls/hr 10/11/24 15:10 IV 10/17/24 04:29 .Q48H [facility] Protocol Insulin Human Lispro 0 unit 10/09/24 22:15 10/11/24 11:02 Insulin Lispro 100 Unit/Ml Insuln.Pen SC 2 units ACHS SASHA Administration Protocol Melatonin 3 mg 10/09/24 22:15 10/10/24 22:59 Melatonin 3 Mg Tablet PO 3 mg QHS PRN PRN Administration INSOMNIA Metoprolol Tartrate 100 mg 10/09/24 22:15 10/11/24 09:39 Metoprolol Tartrate 100 Mg Tablet PO 100 mg BID SASHA Administration Protocol Potassium Chloride 20 meq 10/10/24 10:00 10/11/24 09:38 Potassium Chloride Oral Tablet 20 Meq PO 20 meq DAILY SASHA Administration Prazosin HCl 2 mg 10/09/24 22:45 10/11/24 09:39 Prazosin Hcl 1 Mg Capsule PO 2 mg BID SASHA Administration Prochlorperazine Edisylate 5 mg 10/09/24 22:15 Prochlorperazine 10 Mg/2 Ml Vial IV Q4H PRN PRN Breakthrough Nausea/Vomiting Senna/Docusate Sodium 2 tablet 10/10/24 22:00 10/11/24 09:40 Senna/Docusate Sodium 1 Tablet PO 2 tablet BID SASHA Administration Vancomycin Protocol 1 lab 10/12/24 22:30 Vancomycin Trough/Random Due 10/13/24 03:30 DAILY [facility] Warfarin Sodium 2.5 mg 10/10/24 17:00 10/10/24 16:50 Warfarin 2.5 Mg Tablet PO 2.5 mg DAILY@1700 [facility] Administration [facility] Medical History Rash History of steroid therapy Tremor On home oxygen therapy COPD (chronic obstructive pulmonary disease) Hoarseness Chronic cough History of edema Normal Holter exam Hypertension Hyperbilirubinemia Transaminitis Thrombocytopenia Obesity Wears glasses Wears partial dentures Cancer Arthritis High cholesterol Tremor of both hands Ulcerated colon Shortness of breath on exertion Leg cramps History of stress test History of echocardiogram Cardiology follow-up encounter History of atrial fibrillation 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 Ulcerative colitis Colitis Coagulopathy COVID-19 Anxiety Diabetes Former smoker CPAP (continuous positive airway pressure) dependence Sleep apnea Congestive heart failure (CHF) Atrial fibrillation 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, 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 Chronic diastolic heart failure Paroxysmal atrial flutter Type 2 diabetes mellitus SOB (shortness of breath) Home Medications ?Medication ?Instructions ?Recorded ?Last Taken ?Type potassium chloride 20 mEq 20 meq PO DAILY Low potassium 09/27/15 10/06/24 History tablet,extended release(part/cryst) atorvastatin 40 mg tablet 40 mg PO QHS Cholesterol 08/20/16 10/06/24 History metformin 500 mg tablet 500 mg PO BID Diabetes 05/09/19 10/06/24 History metoprolol tartrate 100 mg tablet 100 mg PO BID Afib 02/17/21 10/06/24 History fexofenadine 180 mg tablet 180 mg PO DAILY PRN PRN Allergic 01/11/22 07/10/24 History Symptoms prazosin 2 mg capsule 2 mg PO BID bp 08/08/22 10/06/24 History vedolizumab 300 mg intravenous 300 mg IV .per order 03/21/23 07/10/24 History solution (Entyvio) empagliflozin 10 mg tablet 10 mg PO DAILY 04/24/23 10/06/24 History (Jardiance) furosemide 20 mg tablet 20 mg PO DAILY Edema 06/20/23 10/06/24 History flecainide 50 mg tablet 50 mg PO Q12H #180 TABLETS 11/16/23 10/06/24 Rx tiotropium 2.5 mcg-olodaterol 2.5 2 puff inhalation DAILY SOB #3 ea 04/22/24 10/06/24 Rx mcg/actuation mist for inhalation (Stiolto Respimat) warfarin 2.5 mg tablet 2.5 mg PO QDAY blood thinner #90 05/20/24 10/06/24 Rx tabs prednisone 20 mg tablet 20 mg PO Q12H PRN COLON SYMPTOMS 09/27/24 10/06/24 History dicyclomine 20 mg tablet 20 mg PO 3XD 10/09/24 10/06/24 History ketoconazole 2 % shampoo 1 applic topical .COMPLEX 10/09/24 Unknown History Allergy/AdvReac Type Severity Reaction Status Date / Time amlodipine Allergy Severe Rash Verified 10/09/24 15:22 Penicillins Allergy Hives Verified 10/09/24 15:22 azithromycin AdvReac Diarrhea Verified 10/09/24 15:22 celecoxib (From Celebrex) AdvReac RECTAL Verified 10/09/24 15:22 BLEEDING Family History Mother Colon cancer Heart disease Father CAD (coronary artery disease) Sister Diabetes Brother Heart disease Diabetes Surgical History History of ERCP History of intraocular lens implant History of knee surgery History of bilateral hip replacements History of radiofrequency ablation procedure for cardiac arrhythmia (~08/11/15) Social History household members: spouse Smoking Status: Former smoker how long ago did patient quit smokin + years alcohol intake: never substance use type: does not use caffeine: Yes Type: coffee Number of servings: 3 Review of Systems (Anesthesia) ROS Narrative System reviewed and no additional complaints, except as documented.
[2024-10-11] MEDS: Bupivacaine Mpf 0.5% 30 ML VIAL (16:30)
--- NOTE | 2024-10-11 16:53 | PCM.POST.ANE ---
Anesthesia: Postop Eval I Current Vital Signs Temperature: 97.7 F Pulse Rate: 87 Blood Pressure: 139/47 Respiratory Rate: 20 Pulse Ox: 99 Assessment Airway patent: Yes Spontaneous unlabored respirations: Yes nausea: No Vomiting: No Anesthesia Complication: No Fluid Hydration Crystalloid volume administer (ml): 500 Total IV fluid infused: 500 Progress Note Anesthesia document: Postop Eval 1 completed: Yes
--- NOTE | 2024-10-11 17:06 | SUR.PHASEI ---
pacu accu check, 185 at [phone]
--- NOTE | 2024-10-11 17:11 | OP.PCM_ITS ---
Operative Report (Standard) Operative Information Date of Procedure: 10/11/24 Pre-Operative Diagnosis: Left thigh abscess Post-Operative Diagnosis: Same Surgery/Procedure Performed: I assisted Dr. Johnson (Please see his separate operative note) with I&D left thigh (no charge) aerospace medicine physician: No Type of Anesthesia: General RN Documented Start/Stop Times: Operation Date: 10/11/24 15:35 Case Time Into Pre-Op 10/11/24 14:54 Out of Pre-Op 10/11/24 15:45 Anesthesia Start 10/11/24 15:51 Into Room 10/11/24 15:51 Procedure Start 10/11/24 16:15 Procedure End 10/11/24 16:37 Anesthesia End 10/11/24 16:44 Out of Room 10/11/24 16:44 Into Recovery 10/11/24 16:50 Procedure Start Time: 16:15 Procedure Stop Time: 16:37 Select all DRAINS/GRAFTS/IMPLANTS that apply: None Estimated Blood Loss: 50 Specimen collected: Yes Description of specimen(s) removed: See Dr. Johnson Operative note Description of surgery: I assisted Dr. Johnson Please see his operative note for the procedure Surgical Findings: Abscess, left medial thigh along fascial lines Complications Complications: No
[2024-10-11 17:24] LABS: Bedside Glucose 185 mg/dL (74-106)
[2024-10-11] MEDS: Clindamycin 600 MG/50 ML BAG 100 MG IV ×2 (18:02→22:05)
--- NOTE | 2024-10-11 19:20 | POSTOPAN2_ITS ---
Anesthesia Postop Eval I Sum Postop Eval Completion status Anesthesia document: Postop Eval 1 completed: Yes Anesthesia Postop Eval I Summary Anesthesia Postop Eval I Summary: Anesthesia Postop Eval I: Assessment Summary Airway patent Yes 10/11/24 16:53 SENIOR SUSTAINABILITY ADVISOR.TNES Spontaneous unlabored Yes 10/11/24 16:53 SENIOR SUSTAINABILITY ADVISOR.TNES respirations Mental status nausea No 10/11/24 16:53 SENIOR SUSTAINABILITY ADVISOR.TNES Vomiting No 10/11/24 16:53 SENIOR SUSTAINABILITY ADVISOR.TNES Anesthesia Postop Eval I: Fluid Summary Crystalloid volume administer 500 10/11/24 16:53 SENIOR SUSTAINABILITY ADVISOR.TNES (ml) Colloids volume administered ( ml) Blood Product volume administered (ml) Total IV fluid infused 500 10/11/24 16:53 SENIOR SUSTAINABILITY ADVISOR.TNES Anesthesia Postop Eval I: Summary Notes Anesthesia Complication No 10/11/24 16:53 SENIOR SUSTAINABILITY ADVISOR.TNES Anesthesia Complication Comment: Post-operative progress note Anesthesia: Postop Eval II Evaluation Mental status: Awake Pain Level: 0 nausea: No Vomiting: No
--- NOTE | 2024-10-11 19:20 | PCM.POSTANE2 ---
Anesthesia Postop Eval I Sum Postop Eval Completion status Anesthesia document: Postop Eval 1 completed: Yes Anesthesia Postop Eval I Summary Anesthesia Postop Eval I Summary: Anesthesia Postop Eval I: Assessment Summary Airway patent Yes 10/11/24 16:53 ENVIRONMENTAL CONTROL ADMINISTRATOR.TNES Spontaneous unlabored Yes 10/11/24 16:53 ENVIRONMENTAL CONTROL ADMINISTRATOR.TNES respirations Mental status nausea No 10/11/24 16:53 ENVIRONMENTAL CONTROL ADMINISTRATOR.TNES Vomiting No 10/11/24 16:53 ENVIRONMENTAL CONTROL ADMINISTRATOR.TNES Anesthesia Postop Eval I: Fluid Summary Crystalloid volume administer 500 10/11/24 16:53 ENVIRONMENTAL CONTROL ADMINISTRATOR.TNES (ml) Colloids volume administered ( ml) Blood Product volume administered (ml) Total IV fluid infused 500 10/11/24 16:53 ENVIRONMENTAL CONTROL ADMINISTRATOR.TNES Anesthesia Postop Eval I: Summary Notes Anesthesia Complication No 10/11/24 16:53 ENVIRONMENTAL CONTROL ADMINISTRATOR.TNES Anesthesia Complication Comment: Post-operative progress note Anesthesia: Postop Eval II Evaluation Mental status: Awake Pain Level: 0 nausea: No Vomiting: No
[2024-10-11 19:31] LABS: Bedside Glucose 204 mg/dL (74-106)
--- NOTE | 2024-10-11 19:54 | PCM.OPRPT ---
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 Surgery/Procedure Performed: Incision and drainage with debridement of left thigh abscess barrel bung remover and dumper: Yes Straight Cutter Machine: Jenaro Aguero Tasks completed by first grade teacher: Removing tissue, Altering tissue, Hemostasis: Electrocautery and Other (Debridement) Type of Anesthesia: General/Supplemental RN Documented Start/Stop Times: Operation Date: 10/11/24 15:35 Case Time Into Pre-Op 10/11/24 14:54 Out of Pre-Op 10/11/24 15:45 Anesthesia Start 10/11/24 15:51 Into Room 10/11/24 15:51 Procedure Start 10/11/24 16:15 Procedure End 10/11/24 16:37 Anesthesia End 10/11/24 16:44 Out of Room 10/11/24 16:44 Into Recovery 10/11/24 16:50 Out of Recovery 10/11/24 17:26 Procedure Start Time: 16:15 Procedure Stop Time: 16:37 Select all DRAINS/GRAFTS/IMPLANTS that apply: None Estimated Blood Loss: 50 Specimen collected: Yes Description of specimen(s) removed: Aerobic and anaerobic cultures as well as tissue culture Description of surgery: After obtaining written consent, patient was positioned supine on the operating room table. Patient was administered anesthesia and underwent rapid sequence intubation. Then the legs were frog-legged, patient's condom catheter was removed, and the left groin and scrotum was prepped with Betadine. A verbal timeout was conducted to confirm the patient and procedure. Local anesthetic was 0.5% bupivacaine plain was infiltrated along a preplanned longitudinal incision to the inner thigh. Then, an #10 scalpel was used to create this incision for a length of approximately 10 cm deeply through the subcutaneous tissue. This resulted in some bleeding but copious drainage of splints. The cavity was manually probed digitally as the opening was expanded. Several loculations were disrupted superiorly but the inguinal ligament appeared intact and there did not appear to be any cephalad tracking of the infection. There are also several pockets throughout the subcutaneous tissues and then a deeper extension towards the muscular fascia (a final wound cavity seem to overlie the muscle bellies of the sartorius muscle anteriorly, the adductor longus and gracilis muscles posterior medially). Wound cultures were obtained for aerobic and anaerobic micro. Additionally, an area of tissue necrosis was excised and submitted for tissue culture. The wound was copiously irrigated with warm sterile saline. Cavity was then packed with a laparotomy sponge for hemostasis. Bleeding along the skin edges was addressed with electrocautery. There was a small lacerated pulsatile artery in the inferior aspect of the wound that was secured with a 3-0 Vicryl suture. Several small areas were digitally probed to ensure the infection was fully exposed to air. Some additional limited debridement of devitalized/necrotic tissue was undertaken with a rongeur. The wound cavity was measured and dimensions are given below. Lastly the cavity was packed tightly with 3 rolls of 4 inch Kerlix soaked with quarter percent sodium hypochlorite. Two abdominal pads were placed across this area and held in place with a fourth roll of Kerlix. Patient tolerated the procedure without any apparent complication. Patient was then extubated uneventfully and was taken to PACU for ongoing recovery. Surgical Findings: ? Necrotizing soft tissue infection extending down to the fascia ? Final wound dimensions: 12 cm x 12 cm x 6 cm (depth). Additionally there was superior undermining of 7 cm, medial undermining of 4.5 cm, and lateral undermining of 5 cm. Complications Complications: No
[2024-10-11] MEDS: Ceftriaxone 1 GM/50 ML BAG IV (21:09)
[2024-10-11] MEDS: Atorvastatin Calcium 40 MG Tablet PO (22:16)
[2024-10-11 23:07] LABS: Bedside Glucose 234 mg/dL (74-106)
[2024-10-12] VITALS (9 sets, daily range): BP systolic 117–158; BP diastolic 65–105; PULSE 62–88; RESP 18; TEMP 36.4–37; O2SAT 92–97
[2024-10-12] MEDS: Vancomycin IV 1,000 MG/200 ML BAG 200 MG IV ×2 (01:23→12:10)
[2024-10-12] MEDS: Clindamycin 600 MG/50 ML BAG 100 MG IV ×3 (05:25→22:32)
[2024-10-12] MEDS: Insulin Lispro 100 UNIT/ML INSULN.PEN SC ×4 (06:12→22:38)
[2024-10-12] MEDS: Dicyclomine 10 MG Capsule 20 MG PO ×3 (06:12→22:46)
[2024-10-12 07:21] LABS: Bedside Glucose 242 mg/dL (74-106)
[2024-10-12] MEDS: Ipratropium/Albuterol Sulfate 3 ML AMPUL.NEB INHALATION ×3 (07:36→19:55)
[2024-10-12 07:48] LABS: Absolute Lymphocyte Count 1.26 X10^3/uL (0.83-4.51); Basophil# 0.03 X10^3/uL; Basophil% 0.3 % (0-1); Hematocrit 35.5 % (40-54); Hemoglobin 11.5 g/dL (13.0-16.5); Lymphocyte # 1.26 X10^3/ul (0.83-4.51); Lymphocyte % 11.6 % (19-41); Mean Corp Hgb Conc 32.4 g/dL (32-36); Mean Corpuscular Volume 95.7 fL (80-94); Mean Platelet Vol. 10.1 fl (6.2-12.0); Monocyte# 0.47 X10^3/uL; Monocyte% 4.3 % (0-10); NRBC Flagged by Analyzer 0 % (0-5); Neutrophil # 9.04 X10^3/uL (2.7-7.7); Neutrophil % 83.3 % (47-70); Platelet Count 160 K/mm3 (150-450); RBC Distribution Width CV 14.6 % (11.6-14.6); RBC Distribution Width SD 51.6 fl (35.1-43.9); Red Blood Count 3.71 M/mm3 (4.6-6.2); White Blood Count 10.9 K/mm3 (4.4-11.0)
--- NOTE | 2024-10-12 07:55 | PN.SURG_ITS ---
Subjective Subjective Doing well overall this morning. Pain is well controlled. No pain in the groin or in the perineum. Objective Data Objective Data Vital Signs: Vital Signs Temp Pulse Resp BP Pulse Ox O2 Del Method O2 Flow Rate 98.4 F 70 18 118/52 L 94 Nasal Cannula 3 10/11/24 20:00 10/12/24 07:36 10/12/24 07:36 10/11/24 22:19 10/12/24 07:36 10/12/24 07:36 10/12/24 07:36 Oxygen Flow Rate (L/min) 3 Oxygen Delivery Method Nasal Cannula Weight: 296 lb 4.82 oz Body Mass Index (BMI) 43.7 Intake & Output: Intake and Output for Last 24 Hours 10/10/24 10/11/24 10/12/24 23:59 23:59 23:59 Intake Total 804 / 804 840.5 / 1280.5 690 / 690 Output Total 1350 / 1350 800 / 1500 700 / 700 Balance -546 / -546 40.5 / -219.5 -10 / -10 Lab / Micro Data 10/12/24 06:57 10/11/24 05:07 Labs: Laboratory Results - last 24 hr 10/11/24 10:57: POC Glucose 195 H 10/11/24 17:04: POC Glucose 185 H 10/11/24 18:08: POC Glucose 204 H 10/11/24 19:02: C-React Prot Ext Range Cancelled 10/11/24 20:41: C-React Prot Ext Range 19.70 H 10/11/24 22:26: POC Glucose 234 H 10/12/24 06:09: POC Glucose 242 H 10/12/24 06:57: WBC 10.9, RBC 3.71 L, Hgb 11.5 L, Hct 35.5 L, MCV 95.7 H, MCH 31.0, MCHC 32.4, RDW Std Deviation 51.6 H, RDW Coeff of Jadon 14.6, Plt Count 160, MPV 10.1, Immature Gran % (Auto) 0.500, Neut % (Auto) 83.3 H, Lymph % (Auto) 11.6 L, [place] % (Auto) 4.3, Eos % (Auto) 0.0, Baso % (Auto) 0.3, Absolute Neuts (auto) 9.0 H, Absolute Lymphs (auto) 1.26, Nucleated RBC % 0 Micro: Microbiology 10/10/24 01:30 Mucosa - Nasopharyngeal Respiratory Panel (PCR) - Final 10/09/24 15:30 Mucosa - Nose SARS-CoV-2, Influenza & RSV (PCR) - Final Radiography Diagnostic Testing: Radiology Impression Pelvis CT 10/11/24 10:05 IMPRESSION: 1. Findings concerning for CELLULITIS involving the left upper thigh particular along its medial aspect. 2. Bilateral perirenal fat stranding more prominent on the left may be related to inflammation. 3. Diverticulosis, sigmoid colon. 4. Fat containing periumbilical hernia. 5. Bilateral total hip arthroplasties summary Reading Location: [place] [address] Physical Exam Narrative Extremities: LLE dressing changed from medial thigh/groin Patient with some surrounding redness and induration, but no fluid collections. No palpable crepitus. No TTP of the perineum, although he reports scrotal TTP. No signs of ascending infection. No fluid collections in the wound. Mostly healthy tissue within the wound. Resp Effort and Inspection: able to speak in complete sentences Auscultation: rhonchi Cardio Rate: regular rate Assessment & Plan Assessment/Plan (1) Abscess of left thigh: PLAN: No residual fluid collections. Continue broad-spectrum antibiotics and follow up cultures Discussed with primary team Georges catheter rather than the condom catheter (to keep area clean and dry next to the wound) Continue BID WTD dressing changes with Dakins Anticipate operative debridement/VAC placement on Mon16 October 2024 (anticipate MAC/local) Charges/Coding Visit Charges Inpatient E&M: 57085 Subs Hosp L2
--- NOTE | 2024-10-12 07:56 | PN.SURG_ITS ---
Subjective Subjective Patient seen and examined during AM rounds. Patient is found resting in bed. He reports that his pain is improved. Nursing denies any bleeding. Objective Data Objective Data Vital Signs: Vital Signs Temp Pulse Resp BP Pulse Ox O2 Del Method O2 Flow Rate 98.4 F 70 18 118/52 L 94 Nasal Cannula 3 10/11/24 20:00 10/12/24 07:36 10/12/24 07:36 10/11/24 22:19 10/12/24 07:36 10/12/24 07:36 10/12/24 07:36 Oxygen Flow Rate (L/min) 3 Oxygen Delivery Method Nasal Cannula Weight: 296 lb 4.82 oz Body Mass Index (BMI) 43.7 Intake & Output: Intake and Output for Last 24 Hours 10/10/24 10/11/24 10/12/24 23:59 23:59 23:59 Intake Total 804 / 804 840.5 / 1280.5 690 / 690 Output Total 1350 / 1350 800 / 1500 700 / 700 Balance -546 / -546 40.5 / -219.5 -10 / -10 Lab / Micro Data 10/12/24 06:57 10/12/24 06:57 Labs: Laboratory Results - last 24 hr 10/11/24 10:57: POC Glucose 195 H 10/11/24 17:04: POC Glucose 185 H 10/11/24 18:08: POC Glucose 204 H 10/11/24 19:02: C-React Prot Ext Range Cancelled 10/11/24 20:41: C-React Prot Ext Range 19.70 H 10/11/24 22:26: POC Glucose 234 H 10/12/24 06:09: POC Glucose 242 H 10/12/24 06:57: WBC 10.9, RBC 3.71 L, Hgb 11.5 L, Hct 35.5 L, MCV 95.7 H, MCH 31.0, MCHC 32.4, RDW Std Deviation 51.6 H, RDW Coeff of Jadon 14.6, Plt Count 160, MPV 10.1, Immature Gran % (Auto) 0.500, Neut % (Auto) 83.3 H, Lymph % (Auto) 11.6 L, [place] % (Auto) 4.3, Eos % (Auto) 0.0, Baso % (Auto) 0.3, Absolute Neuts (auto) 9.0 H, Absolute Lymphs (auto) 1.26, Nucleated RBC % 0 Micro: Microbiology 10/10/24 01:30 Mucosa - Nasopharyngeal Respiratory Panel (PCR) - Final 10/09/24 15:30 Mucosa - Nose SARS-CoV-2, Influenza & RSV (PCR) - Final Radiography Diagnostic Testing: Radiology Impression Pelvis CT 10/11/24 10:05 IMPRESSION: 1. Findings concerning for CELLULITIS involving the left upper thigh particular along its medial aspect. 2. Bilateral perirenal fat stranding more prominent on the left may be related to inflammation. 3. Diverticulosis, sigmoid colon. 4. Fat containing periumbilical hernia. 5. Bilateral total hip arthroplasties summary Reading Location: [place] [address] Physical Exam Const oriented x3 and no apparent distress Extremity Extremity Narrative: Patient left inner thigh wound demonstrates healthy wound base without evidence of persistent loculation. There is minimal devitalized tissue but no significant pockets of necrosis. There is some mild oozing present. Assessment & Plan Assessment/Plan (1) Abscess of left thigh: PLAN: Patient is 79-year-old male postoperative day 1 from incision and drainage with mild debridement of necrotizing soft tissue infection to left inner thigh. He is doing well this morning with decreased thigh discomfort. He certainly experienced some discomfort with his dressing change but overall tolerated this well. There is no evidence of persistent abscess or undrained collections. There was mild bleeding but nothing concerning for ongoing bleeding risk. Will plan to proceed with twice daily dressing changes. Continue antibiotics empirically and follow operative cultures. Have discussed transitioning patient out of condom cath to indwelling Georges catheter and name of trying to promote local hygiene about his wound. Oliverio Johnson MD General Surgery Endocrine Surgery Pager: [facility] [address] [place] [address], [facility], [address] [place] [address] Office: [phone] Charges/Coding Visit Charges Inpatient E&M: 87061 Subs Hosp L2
[2024-10-12 07:57] LABS: International Normalized Ratio 1.6; Prothrombin Time (Protime)PT. 19.2 SECONDS (11.7-14.9)
[2024-10-12] MEDS: Potassium Chloride Oral Tablet 20 MEQ PO (08:29)
[2024-10-12] MEDS: Acetaminophen 325 MG Tablet 650 MG PO (08:29)
[2024-10-12] MEDS: guaiFENesin/D-Methorphan TAB.SR.12H 2 TABLET PO ×2 (08:30→22:40)
[2024-10-12] MEDS: Prazosin HCl 1 MG Capsule 2 MG PO ×2 (08:30→22:38)
[2024-10-12] MEDS: Flecainide 100 MG Tablet 50 MG PO ×2 (08:31→22:39)
[2024-10-12] MEDS: Senna/Docusate Sodium 1 Tablet 2 TABLET PO ×2 (08:31→22:37)
[2024-10-12] MEDS: Metoprolol Tartrate 100 MG Tablet PO ×2 (08:32→22:40)
[2024-10-12] MEDS: Furosemide 40 MG/4 ML Vial IV (08:32)
[2024-10-12 09:30] LABS: Hemoglobin A1c 8.5 % (<=5.6)
[2024-10-12 10:22] LABS: Anion Gap 16 (5-15); BUN 27 mg/dL (4-19); BUN/Creat Ratio 18.4 RATIO (10-20); Calcium,Total 7.6 mg/dL (7.6-11.0); Carbon Dioxide 18.5 mmol/L (21.0-32.0); Chloride 100 mmol/L (98-108); Creatinine, Serum 1.47 mg/dL (0.70-1.20); EST Glomerular Filtration Rate 49 (>60); Estimated Creatinine Clearance 56.34 ml/min (50-250); Glucose 217 mg/dL (70-99); Sodium Level 135 mmol/L (133-145)
--- NOTE | 2024-10-12 10:59 | PCM.PN.HOSP ---
Reason for Visit Reason for Visit: Diagnoses Heart failure, unspecified (10/09/24) Cutaneous abscess of left lower limb (10/09/24) Cellulitis, unspecified (10/09/24) Objective Data Objective Data Vital Signs: Vital Signs Temp Pulse Resp BP Pulse Ox O2 Del Method O2 Flow Rate 97.9 F 62 18 124/77 H 92 Nasal Cannula 2 10/12/24 08:05 10/12/24 08:32 10/12/24 08:05 10/12/24 08:32 10/12/24 08:05 10/12/24 08:05 10/12/24 08:05 Oxygen Flow Rate (L/min) 2 Oxygen Delivery Method Nasal Cannula Weight: 296 lb 4.82 oz Body Mass Index (BMI) 43.7 Intake & Output: Intake and Output for Last 24 Hours 10/10/24 10/11/24 10/12/24 23:59 23:59 23:59 Intake Total 804 / 804 840.5 / 1280.5 1130 / 1130 Output Total 1350 / 1350 800 / 1500 1100 / 1100 Balance -546 / -546 40.5 / -219.5 Lab / Micro Data 10/12/24 06:57 10/12/24 06:57 Labs: Laboratory Results - last 24 hr 10/11/24 10:57: POC Glucose 195 H 10/11/24 17:04: POC Glucose 185 H 10/11/24 18:08: POC Glucose 204 H 10/11/24 19:02: C-React Prot Ext Range Cancelled 10/11/24 20:41: C-React Prot Ext Range 19.70 H 10/11/24 22:26: POC Glucose 234 H 10/12/24 06:09: POC Glucose 242 H 10/12/24 06:57: WBC 10.9, RBC 3.71 L, Hgb 11.5 L, Hct 35.5 L, MCV 95.7 H, MCH 31.0, MCHC 32.4, RDW Std Deviation 51.6 H, RDW Coeff of Jadon 14.6, Plt Count 160, MPV 10.1, Immature Gran % (Auto) 0.500, Neut % (Auto) 83.3 H, Lymph % (Auto) 11.6 L, [place] % (Auto) 4.3, Eos % (Auto) 0.0, Baso % (Auto) 0.3, Absolute Neuts (auto) 9.0 H, Absolute Lymphs (auto) 1.26, Nucleated RBC % 0, PT 19.2 H, INR 1.6, Sodium 135, Potassium 4.0, Chloride 100, Carbon Dioxide 18.5 L, Anion Gap 16 H, BUN 27 H, Creatinine 1.47 H, Estim Creat Clear Calc 56.34, Est GFR (MDRD) Non-Af 49 L, BUN/Creatinine Ratio 18.4, Glucose 217 H, Hemoglobin A1c 8.5, Calcium 7.6 Micro: Microbiology 10/11/24 Unknown Tissue - Leg, Left Wound Culture - Preliminary No growth-Final to follow 10/11/24 Unknown Tissue - Leg, Left Wound Culture - Preliminary No growth-Final to follow 10/10/24 01:30 Mucosa - Nasopharyngeal Respiratory Panel (PCR) - Final 10/09/24 15:30 Mucosa - Nose SARS-CoV-2, Influenza & RSV (PCR) - Final Physical Exam Narrative Seen and examined. Patient has left inguinal region debridement by surgeon yesterday. Discussed with the plastic and general surgeon Dr. Johnson. Patient is doing good. Mild short of breath and congested. No chest pain. Patient had shortness of breath on and off for 3 to 4 days prior to admission. Denies chest pain pressure. Denies URI symptoms or fever. Physical exam General: Alert, Oriented x3, Cooperative. BMI 43.1 kg/m? HEENT: Atraumatic, PERRLA, EOMI, Normocephalic Oral: Deep oropharyngeal structures could not be visualized. Neck: Thick white neck. JVD not discernible. Supple, Negative Carotid Bruits Chest wall/Lungs: Air entry diminished in bilateral lungs. Mild bilateral coarse crepitations Cardiovascular: Regular rate, Regular Rhythm, Normal S1, Normal S2, soft systolic murmur Abdomen: Bowel Sounds Present, Soft, Non Tender, Non-Distended, large pelvic pannus : No dysuria. No renal angle tenderness. No suprapubic tenderness. Extremities: Bilateral 3+ pitting edema from mid thigh downwards. Capillary Refill Less than 3 Seconds Skin: Left groin/inguinal region debridement, open wound with dressing applied. No soakage. Cellulitis improving. Musculoskeletal: No Tenderness to Palpation of Joints or Extremities. Bilateral hip replacement. ROM restricted Neurological: Cranial nerves II-XII grossly intact, DTR 2+/4. No acute focal neurological deficit. Psych/Mental Status: flat affect Assessment & Plan Assessment/Plan (1) CHF (congestive heart failure): PLAN: Plan The patient is a 79 y/o M was brought to ED by EMS for increased shortness of breath/dyspnea, worse on exertion, orthopnea, weight gain, shaking for about 4 days but got worse 1 day prior to admission . Pulse ox was 89% on room air. Patient was started on 4 L of oxygen in ED. Usually patient on home O2 as needed #1. Acute Hypoxia secondary to Acutely Decompensated HFpEF: Patient being admitted in PCU. Patient has intermittent troponin enzymes. Mild pericardial effusion. On IV Lasix. Heart failure core measures including intake and output, fluid restriction less than 1500 mL, daily weight monitoring, kidney and electrolytes monitoring. Most recent ECHO noted 11/01/2021 with EF 65% with no evidence of diastolic dysfunction, trivial MVI. Repeat echo proBNP is very high about 13,000. Troponin minimally elevated, all 3 in similar range. 2D echo was done which was technically difficult, EF 65%. Interpretation Summary Mild concentric left ventricular hypertrophy. The left ventricular ejection fraction is 65 %. Stage 1 diastolic dysfunction. There is moderate biatrial dilatation. 10/12: Shortness of breath Seems worse than yesterday probably due to IV fluid he got yesterday. Lasix dose increased to 60 mg IV twice daily. Encourage bronchopulmonary hygiene. #2. Left inner thigh/left inguinal region redness, perineal infection/deep tissue infection. Area of redness has improved but there is formed area of about 7 to 8 cm left upper thigh, tender inflamed. No fluid inside. CT pelvis was done without contrast which shows bilateral peritoneal fat stranding, prominent left with subcutaneous pockets of air. Left upper thigh with cellulitis, edematous larger than right. Patient has perineal subcutaneous/deep fascia, deep tissue infection, therefore plastic surgeon and general surgeon Dr. Silvestre and Dr. Johnson called. Recommended wound debridement surgery there patient made NPO. Vitamin K 5 mg IV given his INR is 1.8. Hold warfarin. Earlier ID was consulted and vancomycin was added on the top of ceftriaxone and Flagyl. Discussed with the patient and his regarding the finding of CT pelvis, indication of surgery and further expectation. 10/12: On 10/11: Patient had incision and drainage with debridement of left thigh abscess/necrotizing fasciitis, deep tissue infection. IntraOp finding was necrotizing soft tissue infection of left thigh/inguinal region. PAF/flutter: Patient with evidence of flutter upon presentation, continue patient home flecainide, metoprolol regimen as well as Coumadin. INR 1.9. 10/11 INR 1.8. Hold warfarin. 10/12: INR is 1.6. Discussed with the surgeon. Dr. Silvestre is thinking of additional surgery possible Monday and therefore we will continue holding warfarin. If needed, can do short course of Lovenox DVT prophylaxis dose from tomorrow. #3. Diabetes mellitus type II: Hold oral home regimen, ADA diet, Accu-Chek before meals and at bedtime with Humalog sliding scale coverage and hypoglycemia protocol. 10/11: Earlier Jardiance was discontinued because probably that major reason for perineal/thigh infection. A1c ordered for tomorrow a.m. 10/12: Glucoses are high in 250 range. Started on scheduled Lantus and Humalog insulin #4. Hypertension: Continue home regimen including metoprolol, IV Lasix, PRN hydralazine. #5. Hyperlipidemia: Continue home statin regimen. AM FLP. #6. Chronic COPD: Continue oxygen. DuoNeb nebulization. Incentive spirometry. #7. Chronic Kidney Disease Stage III, unclear subtype per GFR trending: Admission BUN/Cr 18/1.45, GFR 49, baseline renal function primarily 1.0 10/13: Creatinine is 1.47 on baseline. On Lasix. #8. Chronic macrocytic anemia: Admission hemoglobin 12.9, MCV 97.1, baseline hemoglobin primarily 13 more recently but has vacillated in the past was primarily 11-12, continue to trend. #9. Morbid Obesity: Weight loss and lifestyle changes encouraged. #10. Former tobacco use: Encourage continued tobacco cessation. #12. Ulcerative colitis: Noted history, most recent medication per current list Entyvio outpatient but unclear last usage, encourage continued outpatient follow-up with GI as previously arranged. 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 #14. SILVER: CPAP nightly. Microbiology Past 72 Hours 10/11/24 Unknown Tissue - Leg, Left Wound Culture - Preliminary No growth-Final to follow 10/11/24 Unknown Tissue - Leg, Left Wound Culture - Preliminary No growth-Final to follow 10/10/24 01:30 Mucosa - Nasopharyngeal Respiratory Panel (PCR) - Final 10/09/24 15:30 Mucosa - Nose SARS-CoV-2, Influenza & RSV (PCR) - Final Laboratory Results 10/11/24 17:04: POC Glucose 185 H 10/11/24 18:08: POC Glucose 204 H 10/11/24 19:02: C-React Prot Ext Range Cancelled 10/11/24 20:41: C-React Prot Ext Range 19.70 H 10/11/24 22:26: POC Glucose 234 H 10/12/24 06:09: POC Glucose 242 H 10/12/24 06:57: WBC 10.9, RBC 3.71 L, Hgb 11.5 L, Hct 35.5 L, MCV 95.7 H, MCH 31.0, MCHC 32.4, RDW Std Deviation 51.6 H, RDW Coeff of Jadon 14.6, Plt Count 160, MPV 10.1, Immature Gran % (Auto) 0.500, Neut % (Auto) 83.3 H, Lymph % (Auto) 11.6 L, [place] % (Auto) 4.3, Eos % (Auto) 0.0, Baso % (Auto) 0.3, Absolute Neuts (auto) 9.0 H, Absolute Lymphs (auto) 1.26, Nucleated RBC % 0, PT 19.2 H, INR 1.6, Sodium 135, Potassium 4.0, Chloride 100, Carbon Dioxide 18.5 L, Anion Gap 16 H, BUN 27 H, Creatinine 1.47 H, Estim Creat Clear Calc 56.34, Est GFR (MDRD) Non-Af 49 L, BUN/Creatinine Ratio 18.4, Glucose 217 H, Hemoglobin A1c 8.5, Calcium 7.6 10/12/24 12:03: POC Glucose 257 H DVT prophylaxis: Will continue Coumadin with INR trending. CODE status: Patient NETTA is his and living will is currently in place. Discussed CODE status at length including difference between FULL code, DNR-CCA and DNR-CC status. Following discussions about the differences in these status, requested Full Code status. Advanced Care Planning Face to Face Time: 16 minutes. Total time of the visit including total time spent in counseling or coordination of care, (more than 50% of the total time, spent in obtaining medical information from nurses and other ancillary care providers ,explaining to the patient about labs, imaging, diagnosis and management of active complex medical conditions), complex management of deep tissue infection of the perineal region, heart failure, discussion with plastic surgeon and general surgeon, review of labs and imaging is 40 minutes. Microbiology Past 72 Hours 10/10/24 01:30 Mucosa - Nasopharyngeal Respiratory Panel (PCR) - Final 10/09/24 15:30 Mucosa - Nose SARS-CoV-2, Influenza & RSV (PCR) - Final Laboratory Results 10/10/24 16:52: POC Glucose 225 H 10/10/24 22:52: POC Glucose 181 H 10/11/24 05:07: WBC 10.3, RBC 3.73 L, Hgb 11.6 L, Hct 35.0 L, MCV 93.8, MCH 31.1, MCHC 33.1, RDW Std Deviation 50.8 H, RDW Coeff of Jadon 14.6, Plt Count 163, MPV 9.6, Immature Gran % (Auto) 0.600, Neut % (Auto) 78.7 H, Lymph % (Auto) 16.7 L, [place] % (Auto) 3.5, Eos % (Auto) 0.3, Baso % (Auto) 0.2, Absolute Neuts (auto) 8.1 H, Absolute Lymphs (auto) 1.71, Nucleated RBC % 0, PT 21.9 H, INR 1.9, Sodium 137, Potassium 3.6, Chloride 104, Carbon Dioxide 17.5 L, Anion Gap 15, BUN 28 H, Creatinine 1.83 H, Estim Creat Clear Calc 45.26 L, Est GFR (MDRD) Non-Af 37 L, BUN/Creatinine Ratio 15.5, Glucose 186 H, Calcium 7.7 10/11/24 06:36: POC Glucose 174 H 10/11/24 10:57: POC Glucose 195 H Charges/Coding Visit Charges Inpatient E&M: 61774 Subs Hosp L3
[2024-10-12] MEDS: 0.9% Saline Lock 10 ML Syringe IV ×2 (12:08→17:11)
[2024-10-12] MEDS: DAKIN'S SOL HALF STRENGTH (=0.25%) TOPICAL ×2 (12:13→22:47)
[2024-10-12] MEDS: Lactobacillis Acidophilus 1 CAP PO ×2 (12:13→22:39)
[2024-10-12 12:22] LABS: Bedside Glucose 257 mg/dL (74-106)
[2024-10-12] MEDS: Insulin Glargine-YFGN 100 UNIT/ML Pen 12 UNIT SC (13:26)
[2024-10-12] MEDS: Furosemide 40 MG/4 ML Vial 60 MG IV (17:09)
[2024-10-12] MEDS: Insulin Lispro 100 UNIT/ML INSULN.PEN 10 UNIT SC (17:13)
[2024-10-12 18:03] LABS: Bedside Glucose 198 mg/dL (74-106)
[2024-10-12] MEDS: Atorvastatin Calcium 40 MG Tablet PO (22:46)
[2024-10-12 23:13] LABS: Bedside Glucose 246 mg/dL (74-106)
[2024-10-12] MEDS: Ceftriaxone 1 GM/50 ML BAG IV (23:29)
[2024-10-13] VITALS (8 sets, daily range): BP systolic 115–165; BP diastolic 56–88; PULSE 58–72; RESP 16–20; TEMP 36.6–36.9; O2SAT 94–97; BMI 42.8
[2024-10-13 01:22] LABS: Vancomycin, Trough Level 13.3 ug/mL (5.0-15.0)
--- NOTE | 2024-10-13 01:48 | PCM.RX.CS ---
Consult Antibiotic Management Pharmacy has been consulted to manage selected antibiotic: Vancomycin Type of Intervention Type of Consult: Follow-up Labs Labs: Sodium 135 mmol/L (133-145) 10/12/24 06:57 Potassium 4.0 mmol/L (3.3-5.1) 10/12/24 06:57 Chloride 100 mmol/L (98-108) 10/12/24 06:57 Carbon Dioxide 18.5 mmol/L (21.0-32.0) L 10/12/24 06:57 Anion Gap 16 (5-15) H 10/12/24 06:57 BUN 27 mg/dL (4-19) H 10/12/24 06:57 Creatinine 1.47 mg/dL (0.70-1.20) H 10/12/24 06:57 Est GFR (MDRD) Non-Af 49 (>60) L 10/12/24 06:57 BUN/Creatinine Ratio 18.4 RATIO (10-20) 10/12/24 06:57 Glucose 217 mg/dL (70-99) H 10/12/24 06:57 Vancomycin Trough 13.3 ug/mL (5.0-15.0) 10/13/24 00:40 Microbiology Microbiology: Microbiology 10/10/24 03:00 Blood Culture (Wb) - Left Hand Blood Culture - Preliminary No growth in 48 hours. 10/11/24 Unknown Tissue - Leg, Left Gram Stain - Final 10/11/24 Unknown Tissue - Leg, Left Wound Culture - Preliminary No growth-Final to follow 10/11/24 Unknown Tissue - Leg, Left Gram Stain - Final 10/11/24 Unknown Tissue - Leg, Left Wound Culture - Preliminary No growth-Final to follow 10/10/24 01:30 Mucosa - Nasopharyngeal Respiratory Panel (PCR) - Final 10/09/24 15:30 Mucosa - Nose SARS-CoV-2, Influenza & RSV (PCR) - Final Goal Trough Goal Trough: 15-20 mcg/mL Pharmacy Plan for Drug Dosing Pharmacy Plan for Drug Dosing: Pharmacy Service will continue to monitor and adjust dosing as required. TROUGH 13.3 @ 12.5 HOURS. INCREASE TO 1250MG Q12H AND DRAW TROUGH PRIOR TO 4TH DOSE Follow-Up Labs Follow-Up Labs: Trough: Vancomycin Date/Time Labs Ordered Labs to be done on [date and time ordered]: 10/14 @ 1230
[2024-10-13] MEDS: Vancomycin HCl 1,250 MG in 0.9% Normal Saline (250mL Bag) 250 ML 167 MG IV ×2 (01:54→14:11)
--- NOTE | 2024-10-13 03:02 | NURSING ---
Pt placed in contact precautions d/t large draining wound.
--- NOTE | 2024-10-13 03:37 | NURSING ---
Dressing found to be undone while pt was up to [facility]. Part of the packing was on the floor. This dressing change had been previously only done by the MDs. MD was contacted and recommending this RN to cover the wound with kerlix mostened with sterile saline and cover the wound with ABDs. This RN cut off the part of the packing which was on the ground and moisened kerlix with sterile saline. This RN then lightly covered the wound bed and previous packing with the moistened kerlix. 4 ABDs were placed on top and secured with medipore. Patient tolerated well. Fransisca Muro RN
[2024-10-13] MEDS: Lactobacillis Acidophilus 1 CAP PO ×3 (05:11→23:14)
[2024-10-13] MEDS: 0.9% Saline Lock 10 ML Syringe IV ×7 (05:12→23:07)
[2024-10-13] MEDS: Ipratropium/Albuterol Sulfate 3 ML AMPUL.NEB INHALATION ×2 (07:26→12:46)
[2024-10-13] MEDS: Insulin Lispro 100 UNIT/ML INSULN.PEN 10 UNIT SC ×3 (08:08→16:31)
[2024-10-13] MEDS: Insulin Lispro 100 UNIT/ML INSULN.PEN SC (08:09)
[2024-10-13] MEDS: Acetaminophen 325 MG Tablet 650 MG PO (08:14)
[2024-10-13 08:21] LABS: Absolute Lymphocyte Count 1.56 X10^3/uL (0.83-4.51); Absolute Neutrophil Count 6.1 X10^3/uL (2.0-7.7); Basophil# 0.01 X10^3/uL; Basophil% 0.1 % (0-1); Eosinophil# 0.03 X10^3/uL; Eosinophils% 0.4 % (0-5); Hematocrit 35.2 % (40-54); Hemoglobin 11.4 g/dL (13.0-16.5); Lymphocyte # 1.56 X10^3/ul (0.83-4.51); Lymphocyte % 18.8 % (19-41); Mean Corp Hgb Conc 32.4 g/dL (32-36); Mean Corpuscular Hgb 30.7 pg (27.0-32.0); Mean Corpuscular Volume 94.9 fL (80-94); Mean Platelet Vol. 10.4 fl (6.2-12.0); Monocyte# 0.52 X10^3/uL; Monocyte% 6.3 % (0-10); NRBC Flagged by Analyzer 0 % (0-5); Neutrophil # 6.13 X10^3/uL (2.7-7.7); Neutrophil % 73.7 % (47-70); Platelet Count 160 K/mm3 (150-450); RBC Distribution Width CV 14.6 % (11.6-14.6); RBC Distribution Width SD 50.6 fl (35.1-43.9); Red Blood Count 3.71 M/mm3 (4.6-6.2); White Blood Count 8.3 K/mm3 (4.4-11.0)
[2024-10-13 08:34] LABS: Bedside Glucose 168 mg/dL (74-106)
[2024-10-13 08:37] LABS: International Normalized Ratio 1.6
[2024-10-13 09:24] LABS: Anion Gap 13 (5-15); BUN 27 mg/dL (4-19); BUN/Creat Ratio 19.4 RATIO (10-20); Calcium,Total 7.7 mg/dL (7.6-11.0); Carbon Dioxide 21.9 mmol/L (21.0-32.0); Chloride 102 mmol/L (98-108); Creatinine, Serum 1.41 mg/dL (0.70-1.20); EST Glomerular Filtration Rate 51 (>60); Estimated Creatinine Clearance 58.08 ml/min (50-250); Glucose 167 mg/dL (70-99); Potassium 3.4 mmol/L (3.3-5.1); Sodium Level 137 mmol/L (133-145)
[2024-10-13] MEDS: Furosemide 40 MG/4 ML Vial 60 MG IV ×2 (10:49→18:39)
[2024-10-13] MEDS: Senna/Docusate Sodium 1 Tablet 2 TABLET PO ×2 (10:50→23:14)
[2024-10-13] MEDS: Flecainide 100 MG Tablet 50 MG PO ×2 (10:50→23:13)
[2024-10-13] MEDS: Metoprolol Tartrate 100 MG Tablet PO ×2 (10:50→23:14)
[2024-10-13] MEDS: Potassium Chloride Oral Tablet 20 MEQ PO (10:52)
[2024-10-13] MEDS: Prazosin HCl 1 MG Capsule 2 MG PO ×2 (10:52→23:14)
[2024-10-13] MEDS: guaiFENesin/D-Methorphan TAB.SR.12H 2 TABLET PO ×2 (10:52→23:13)
[2024-10-13] MEDS: Insulin Glargine-YFGN 100 UNIT/ML Pen 12 UNIT SC (12:13)
[2024-10-13 12:40] LABS: Bedside Glucose 140 mg/dL (74-106)
[2024-10-13] MEDS: HYDROmorphone 0.5 MG/0.5 ML SYRINGE IV ×2 (14:06→19:31)
--- NOTE | 2024-10-13 14:08 | PN.HOSP_ITS ---
Reason for Visit Reason for Visit: Diagnoses Heart failure, unspecified (10/09/24) Cutaneous abscess of left lower limb (10/09/24) Cellulitis, unspecified (10/09/24) Objective Data Objective Data Vital Signs: Vital Signs Temp Pulse Resp BP Pulse Ox O2 Del Method O2 Flow Rate 98.2 F 64 18 115/88 H 97 Nasal Cannula 2 10/13/24 10:45 10/13/24 12:47 10/13/24 12:47 10/13/24 10:45 10/13/24 10:45 10/13/24 10:45 10/13/24 08:05 FiO2 2 10/13/24 10:45 Oxygen Flow Rate (L/min) 2 Oxygen Delivery Method Nasal Cannula Weight: 290 lb 5.581 oz Body Mass Index (BMI) 42.8 Intake & Output: Intake and Output for Last 24 Hours 10/11/24 10/12/24 10/14/24 23:59 23:59 00:59 Intake Total 840.5 / 1280.5 2210 / 2210 525 / 525 Output Total 800 / 1500 3500 / 3500 300 / 300 Balance 40.5 / -219.5 -1290 / -1290 225 / 225 Lab / Micro Data 10/13/24 07:25 10/13/24 07:25 Labs: Laboratory Results - last 24 hr 10/12/24 16:59: POC Glucose 198 H 10/12/24 22:36: POC Glucose 246 H 10/13/24 00:40: Vancomycin Trough 13.3 10/13/24 07:25: WBC 8.3, RBC 3.71 L, Hgb 11.4 L, Hct 35.2 L, MCV 94.9 H, MCH 30.7, MCHC 32.4, RDW Std Deviation 50.6 H, RDW Coeff of Jadon 14.6, Plt Count 160, MPV 10.4, Immature Gran % (Auto) 0.700, Neut % (Auto) 73.7 H, Lymph % (Auto) 18.8 L, [place] % (Auto) 6.3, Eos % (Auto) 0.4, Baso % (Auto) 0.1, Absolute Neuts (auto) 6.1, Absolute Lymphs (auto) 1.56, Nucleated RBC % 0, PT 19.0 H, INR 1.6, Sodium 137, Potassium 3.4, Chloride 102, Carbon Dioxide 21.9, Anion Gap 13, BUN 27 H, Creatinine 1.41 H, Estim Creat Clear Calc 58.08, Est GFR (MDRD) Non-Af 51 L, BUN/Creatinine Ratio 19.4, Glucose 167 H, Calcium 7.7 10/13/24 08:07: POC Glucose 168 H 10/13/24 12:12: POC Glucose 140 H Micro: Microbiology 10/11/24 Unknown Tissue - Leg, Left Gram Stain - Final 10/11/24 Unknown Tissue - Leg, Left Wound Culture - Preliminary Mixed Gram Positive Organisms 10/11/24 Unknown Tissue - Leg, Left Gram Stain - Final 10/11/24 Unknown Tissue - Leg, Left Wound Culture - Preliminary Mixed Gram Positive Organisms 10/10/24 03:00 Blood Culture (Wb) - Left Hand Blood Culture - Preliminary No growth in 48 hours. 10/10/24 01:30 Mucosa - Nasopharyngeal Respiratory Panel (PCR) - Final 10/09/24 15:30 Mucosa - Nose SARS-CoV-2, Influenza & RSV (PCR) - Final Physical Exam Narrative Seen and examined. Shortness of breath is better than yesterday. Left inguinal surgical open wound shows granulation tissue. Hyperglycemia. Patient has left inguinal region debridement by surgeon on 10/11. Discussed with the plastic surgeon Dr. Silvestre and general surgeon Dr. Johnson. Patient had shortness of breath on and off for 3 to 4 days prior to admission. Denies chest pain pressure. Denies URI symptoms or fever. Physical exam General: Alert, Oriented x3, Cooperative. BMI 43.1 kg/m? HEENT: Atraumatic, PERRLA, EOMI, Normocephalic Oral: Deep oropharyngeal structures could not be visualized. Neck: Thick white neck. JVD not discernible. Supple, Negative Carotid Bruits Chest wall/Lungs: Air entry diminished in bilateral lungs. Mild crepitations. Cardiovascular: Regular rate, Regular Rhythm, Normal S1, Normal S2, soft systolic murmur Abdomen: Bowel Sounds Present, Soft, Non Tender, Non-Distended, large pelvic pannus : No dysuria. No renal angle tenderness. No suprapubic tenderness. Extremities: Bilateral 2+ pitting edema from mid thigh downwards. Capillary Refill Less than 3 Seconds Skin: Left groin/inguinal region debridement, open wound with gauze packing. No soakage. Cellulitis improving. Musculoskeletal: No Tenderness to Palpation of Joints or Extremities. Bilateral hip replacement. ROM restricted Neurological: Cranial nerves II-XII grossly intact, DTR 2+/4. No acute focal neurological deficit. Psych/Mental Status: flat affect Assessment & Plan Assessment/Plan (1) CHF (congestive heart failure): PLAN: Plan The patient is a 79 y/o M was brought to ED by EMS for increased shortness of breath/dyspnea, worse on exertion, orthopnea, weight gain, shaking for about 4 days but got worse 1 day prior to admission . Pulse ox was 89% on room air. Patient was started on 4 L of oxygen in ED. Usually patient on home O2 as needed #1. Acute Hypoxia secondary to Acutely Decompensated HFpEF: Patient being admitted in PCU. Patient has intermittent troponin enzymes. Mild pericardial effusion. On IV Lasix. Heart failure core measures including intake and output, fluid restriction less than 1500 mL, daily weight monitoring, kidney and electrolytes monitoring. Most recent ECHO noted 11/01/2021 with EF 65% with no evidence of diastolic dysfunction, trivial MVI. Repeat echo proBNP is very high about 13,000. Troponin minimally elevated, all 3 in similar range. 2D echo was done which was technically difficult, EF 65%. Interpretation Summary Mild concentric left ventricular hypertrophy. The left ventricular ejection fraction is 65 %. Stage 1 diastolic dysfunction. There is moderate biatrial dilatation. 10/12: Shortness of breath Seems worse than yesterday probably due to IV fluid he got yesterday. Lasix dose increased to 60 mg IV twice daily. Encourage bronchopulmonary hygiene. 10/13: Shortness of breath better on Lasix 60 mg IV twice daily. Continue. Creatinine is also better, 1.4 #2. Left inner thigh/left inguinal region redness, perineal infection/deep tissue infection. Area of redness has improved but there is formed area of about 7 to 8 cm left upper thigh, tender inflamed. No fluid inside. CT pelvis was done without contrast which shows bilateral peritoneal fat stranding, prominent left with subcutaneous pockets of air. Left upper thigh with cellulitis, edematous larger than right. Patient has perineal subcutaneous/deep fascia, deep tissue infection, therefore plastic surgeon and general surgeon Dr. Silvestre and Dr. Johnson called. Recommended wound debridement surgery there patient made NPO. Vitamin K 5 mg IV given his INR is 1.8. Hold warfarin. Earlier ID was consulted and vancomycin was added on the top of ceftriaxone and Flagyl. Discussed with the patient and his regarding the finding of CT pelvis, indication of surgery and further expectation. 10/12: On 10/11: Patient had incision and drainage with debridement of left thigh abscess/necrotizing fasciitis, deep tissue infection. IntraOp finding was necrotizing soft tissue infection of left thigh/inguinal region. 10/13: Wound packed with gauze pieces. No active bleeding. Granulation tissue on the surface. PAF/flutter: Patient with evidence of flutter upon presentation, continue patient home flecainide, metoprolol regimen as well as Coumadin. INR 1.9. 10/11 INR 1.8. Hold warfarin. 10/12: INR is 1.6. Discussed with the surgeon. Dr. Silvestre is thinking of additional surgery possible Monday and therefore we will continue holding warfarin. 10/13: DVT prophylaxis Lovenox 40 m subcu daily ordered. Continue to hold warfarin as there is proposed surgery on coming Monday therefore last dose of Lovenox on Monday. #3. Diabetes mellitus type II: Hold oral home regimen, ADA diet, Accu-Chek before meals and at bedtime with Humalog sliding scale coverage and hypoglycemia protocol. 10/11: Earlier Jardiance was discontinued because probably that major reason for perineal/thigh infection. A1c ordered for tomorrow a.m. 10/12: Glucoses are high in 250 range. Started on scheduled Lantus and Humalog insulin 10/13: Lantus dose increased, twice daily. Hypoglycemia protocol #4. Hypertension: Continue home regimen including metoprolol, IV Lasix, PRN hydralazine. #5. Hyperlipidemia: Continue home statin regimen. 10/13: Fasting profile shows LDL 32, HDL 30. Triglyceride 121. Normal range #6. Chronic COPD: Continue oxygen. DuoNeb nebulization. Incentive spirometry. #7. Chronic Kidney Disease Stage III, unclear subtype per GFR trending: Admission BUN/Cr 18/1.45, GFR 49, baseline renal function primarily 1.0 10/13: Creatinine is 1.47 on baseline. On Lasix. #8. Chronic macrocytic anemia: Admission hemoglobin 12.9, MCV 97.1, baseline hemoglobin primarily 13 more recently but has vacillated in the past was primarily 11-12, continue to trend. #9. Morbid Obesity: Weight loss and lifestyle changes encouraged. #10. Former tobacco use: Encourage continued tobacco cessation. #12. Ulcerative colitis: Noted history, most recent medication per current list Entyvio outpatient but unclear last usage, encourage continued outpatient follow-up with GI as previously arranged. 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 #14. SILVER: CPAP nightly. DVT prophylaxis: Started on Lovenox. Continue holding warfarin. CODE status: Patient HCPOA is his and living will is currently in place. Discussed CODE status at length including difference between FULL code, DNR-CCA and DNR-CC status. Following discussions about the differences in these status, requested Full Code status. Advanced Care Planning Face to Face Time: 16 minutes. Total time of the visit including total time spent in counseling or coordination of care, (more than 50% of the total time, spent in obtaining medical information from nurses and other ancillary care providers ,explaining to the patient about labs, imaging, diagnosis and management of active complex medical conditions), complex management of deep tissue infection of the perineal region, heart failure, discussion with plastic surgeon and general surgeon, review of labs and imaging is 40 minutes. Charges/Coding Addendum Addendum: Total time of the visit including total time spent in counseling or coordination of care, (more than 50% of the total time, spent in obtaining medical information from nurses and other ancillary care providers ,explaining to the patient about labs, imaging, diagnosis and management of active complex medical conditions), discussion with consultants, management of active complex medical problems, review of labs and imaging is 35 minutes. Visit Charges Inpatient E&M: 54922 Subs Hosp L3
[2024-10-13] MEDS: DAKIN'S SOL HALF STRENGTH (=0.25%) TOPICAL ×2 (14:13→19:32)
--- NOTE | 2024-10-13 16:15 | PCM.PN.SRG ---
Subjective Subjective Patient seen and examined during rounds. He is found resting in bed. He does confirm a eventful overnight course where his dressing was displaced and had to be replaced by nursing early in the morning. He denies any significant discomfort at rest. Objective Data Objective Data Vital Signs: Vital Signs Temp Pulse Resp BP Pulse Ox O2 Del Method O2 Flow Rate 98.2 F 64 18 115/88 H 97 Nasal Cannula 2 10/13/24 10:45 10/13/24 12:47 10/13/24 12:47 10/13/24 10:45 10/13/24 10:45 10/13/24 14:14 10/13/24 14:14 FiO2 2 10/13/24 10:45 Oxygen Flow Rate (L/min) 2 Oxygen Delivery Method Nasal Cannula Weight: 290 lb 5.581 oz Body Mass Index (BMI) 42.8 Intake & Output: Intake and Output for Last 24 Hours 10/11/24 10/12/24 10/14/24 23:59 23:59 00:59 Intake Total 840.5 / 1280.5 2210 / 2210 3122.5 / 3122.5 Output Total 800 / 1500 3500 / 3500 1600 / 1600 Balance 40.5 / -219.5 -1290 / -1290 1522.5 / 1522.5 Lab / Micro Data 10/13/24 07:25 10/13/24 07:25 Labs: Laboratory Results - last 24 hr 10/12/24 16:59: POC Glucose 198 H 10/12/24 22:36: POC Glucose 246 H 10/13/24 00:40: Vancomycin Trough 13.3 10/13/24 07:25: WBC 8.3, RBC 3.71 L, Hgb 11.4 L, Hct 35.2 L, MCV 94.9 H, MCH 30.7, MCHC 32.4, RDW Std Deviation 50.6 H, RDW Coeff of Jadon 14.6, Plt Count 160, MPV 10.4, Immature Gran % (Auto) 0.700, Neut % (Auto) 73.7 H, Lymph % (Auto) 18.8 L, [place] % (Auto) 6.3, Eos % (Auto) 0.4, Baso % (Auto) 0.1, Absolute Neuts (auto) 6.1, Absolute Lymphs (auto) 1.56, Nucleated RBC % 0, PT 19.0 H, INR 1.6, Sodium 137, Potassium 3.4, Chloride 102, Carbon Dioxide 21.9, Anion Gap 13, BUN 27 H, Creatinine 1.41 H, Estim Creat Clear Calc 58.08, Est GFR (MDRD) Non-Af 51 L, BUN/Creatinine Ratio 19.4, Glucose 167 H, Calcium 7.7 10/13/24 08:07: POC Glucose 168 H 10/13/24 12:12: POC Glucose 140 H Micro: Microbiology 10/11/24 Unknown Tissue - Leg, Left Gram Stain - Final 10/11/24 Unknown Tissue - Leg, Left Wound Culture - Preliminary Mixed Gram Positive Organisms 10/11/24 Unknown Tissue - Leg, Left Gram Stain - Final 10/11/24 Unknown Tissue - Leg, Left Wound Culture - Preliminary Mixed Gram Positive Organisms 10/10/24 03:00 Blood Culture (Wb) - Left Hand Blood Culture - Preliminary No growth in 48 hours. 10/10/24 01:30 Mucosa - Nasopharyngeal Respiratory Panel (PCR) - Final 10/09/24 15:30 Mucosa - Nose SARS-CoV-2, Influenza & RSV (PCR) - Final Physical Exam Const oriented x3 and no apparent distress Resp normal respiratory effort Extremity Extremity Narrative: Patient left inner thigh wound demonstrates healthy wound base without evidence of persistent loculation. There appears to be some pulling drainage in the cephalad undermined portion of the wound. There is no active bleeding. Assessment & Plan Assessment/Plan (1) Abscess of left thigh: PLAN: Patient is 79-year-old male postoperative day 2 from incision and drainage with mild debridement of necrotizing soft tissue infection to left inner thigh. He continues to do well with minimal discomfort at rest. Dressing change was completed today with premedication and patient tolerated dressing change better as a result. Once again there were no areas of concern for undrained abscess. Will plan to continue with twice daily dressing changes, but hopefully will build to delegate 1 dressing change to bedside nursing. Continue antibiotics empirically and follow operative cultures (Gram stain currently showing mix of gram-positive organisms). Patient was transition to an indwelling Georges catheter from a condom cath to avoid excessive moisture in his perineal region. Additionally, I have discussed with hospitalist team about trying to tighten patient's blood sugar control further given that his lowest blood sugar last 24 hours was still 198. Tentative plans in place to return to the OR with plastic surgery on 10/16/2024 for further debridement and application of negative pressure wound VAC therapy. Oliverio Johnson MD General Surgery Endocrine Surgery Pager: [facility] [address] [place] [address], [address] [place] [address] Office: [phone] Charges/Coding Visit Charges Inpatient E&M: 74342 Subs Hosp L2
[2024-10-13] MEDS: Insulin Glargine-YFGN 100 UNIT/ML Pen 8 UNIT SC (16:31)
[2024-10-13] MEDS: Enoxaparin 40 MG/0.4 ML Syringe SC (16:33)
[2024-10-13 17:13] LABS: Bedside Glucose 135 mg/dL (74-106)
[2024-10-13] MEDS: Ceftriaxone 1 GM/50 ML BAG IV (23:08)
[2024-10-13] MEDS: Atorvastatin Calcium 40 MG Tablet PO (23:14)
[2024-10-13] MEDS: Dicyclomine 10 MG Capsule 20 MG PO (23:14)
[2024-10-13 23:39] LABS: Bedside Glucose 142 mg/dL (74-106)
[2024-10-13] MEDS: metroNIDAZOLE 500 MG/100 ML BAG 100 MG IV (23:50)
[2024-10-14] VITALS (12 sets, daily range): BP systolic 124–139; BP diastolic 41–78; PULSE 52–88; RESP 16–20; TEMP 36.3–36.7; O2SAT 94–97; BMI 42.3
[2024-10-14] MEDS: Vancomycin HCl 1,250 MG in 0.9% Normal Saline (250mL Bag) 250 ML 167 MG IV (01:19)
[2024-10-14] MEDS: metroNIDAZOLE 500 MG/100 ML BAG 100 MG IV ×3 (06:11→22:49)
[2024-10-14] MEDS: Dicyclomine 10 MG Capsule 20 MG PO ×3 (06:13→21:53)
[2024-10-14] MEDS: Lactobacillis Acidophilus 1 CAP PO ×3 (06:13→21:54)
[2024-10-14 07:11] LABS: International Normalized Ratio 1.3
[2024-10-14] MEDS: Ipratropium/Albuterol Sulfate 3 ML AMPUL.NEB INHALATION ×4 (07:59→20:40)
[2024-10-14] MEDS: Insulin Lispro 100 UNIT/ML INSULN.PEN 10 UNIT SC ×3 (08:11→16:54)
[2024-10-14 08:12] LABS: Bedside Glucose 198 mg/dL (74-106)
[2024-10-14] MEDS: Insulin Lispro 100 UNIT/ML INSULN.PEN SC ×3 (08:12→16:53)
[2024-10-14] MEDS: HYDROmorphone 0.5 MG/0.5 ML SYRINGE IV (09:02)
[2024-10-14] MEDS: 0.9% Saline Lock 10 ML Syringe IV ×4 (09:05→18:37)
--- NOTE | 2024-10-14 09:27 | PCM.PN.HOSP ---
Reason for Visit Reason for Visit: Diagnoses Heart failure, unspecified (10/09/24) Cutaneous abscess of left lower limb (10/09/24) Cellulitis, unspecified (10/09/24) Subjective Subjective left leg feeling ok. Objective Data Objective Data Vital Signs: Vital Signs Temp Pulse Resp BP Pulse Ox O2 Del Method O2 Flow Rate 36.3 C L 66 17 124/41 H 94 Nasal Cannula 3 10/14/24 06:10 10/14/24 07:40 10/14/24 07:40 10/14/24 06:10 10/14/24 08:15 10/14/24 08:15 10/14/24 08:15 FiO2 2 10/13/24 10:45 Oxygen Flow Rate (L/min) 3 Oxygen Delivery Method Nasal Cannula Weight: 130.1 kg Body Mass Index (BMI) 42.3 Intake & Output: Intake and Output for Last 24 Hours 10/12/24 10/14/24 10/14/24 23:59 00:59 23:59 Intake Total 2210 / 2210 3612.5 / 3612.5 755 / 755 Output Total 3500 / 3500 2850 / 2850 550 / 550 Balance -1290 / -1290 762.5 / 762.5 205 / 205 Lab / Micro Data 10/13/24 07:25 10/13/24 07:25 Labs: Laboratory Results - last 24 hr 10/13/24 12:12: POC Glucose 140 H 10/13/24 16:27: POC Glucose 135 H 10/13/24 23:10: POC Glucose 142 H 10/14/24 06:48: PT 16.0 H, INR 1.3 10/14/24 07:52: POC Glucose 198 H Micro: Microbiology 10/11/24 Unknown Tissue - Leg, Left Gram Stain - Final 10/11/24 Unknown Tissue - Leg, Left Wound Culture - Preliminary Mixed Gram Positive Organisms 10/11/24 Unknown Tissue - Leg, Left Gram Stain - Final 10/11/24 Unknown Tissue - Leg, Left Wound Culture - Preliminary Mixed Gram Positive Organisms 10/10/24 03:00 Blood Culture (Wb) - Left Hand Blood Culture - Preliminary No growth in 48 hours. 10/10/24 01:30 Mucosa - Nasopharyngeal Respiratory Panel (PCR) - Final 10/09/24 15:30 Mucosa - Nose SARS-CoV-2, Influenza & RSV (PCR) - Final Physical Exam Const alert and no apparent distress HEENT head/scalp atraumatic and moist oral mucous membranes Resp normal respiratory effort, no retractions, no use of accessory muscles and clear to auscultation bilaterally Cardio regular rate, regular rhythm, S1 normal heart sound and S2 normal heart sound GI normal to inspection, nondistended, normoactive bowel sounds, soft to palpation and non-tender Extremity normal to inspection and full ROM Skin Skin Narrative: reviewed image from [facility] Holden that shows a roughly 8cm wide opening with intact tissues. Neuro Sensorium / Orientation: awake and alert Assessment & Plan Assessment/Plan (1) Abscess of left thigh: PLAN: Necrotizing soft tissue infection of left thigh. Pt underwent I+D with debridement of left thigh abscess with Drs. Johnson and More on 10/11. Tentative plan is for the patient to back to the OR on 10/16 for further debridement and wound vac. Cultures from the still pending. On vanc, metronidazole and CTX. ID following (2) CHF (congestive heart failure): PLAN: acute HFpEF echo 10/10 shows an EF 65%. Mild LVH. on furosemide 60 IV bid (3) Type 2 diabetes mellitus: PLAN: a1c 8.5 only takes metformin at home. now on glargine and SSI. Glargine just increased from 12 to 15 in AM and 8 QHS. Hold off on further changes at this time and observe. PLAN: Plan Chronic conditions: pafib/flutter: warfarin on hold for potential surgery on the . COPD: BDs HTN obesity class III: complicates care and recovery. VTE prophylaxis: LMWH. Charges/Coding Visit Charges Inpatient E&M: 10235 Subs Hosp L2
[2024-10-14] MEDS: Insulin Glargine-YFGN 100 UNIT/ML Pen 15 UNIT SC (10:51)
[2024-10-14] MEDS: DAKIN'S SOL HALF STRENGTH (=0.25%) TOPICAL ×2 (10:51→21:55)
[2024-10-14] MEDS: Potassium Chloride Oral Tablet 20 MEQ PO (10:52)
[2024-10-14] MEDS: Furosemide 40 MG/4 ML Vial 60 MG IV ×2 (10:52→18:37)
--- NOTE | 2024-10-14 10:52 | WOUNDNOTE ---
wound photo: left inner thigh
[2024-10-14] MEDS: Metoprolol Tartrate 100 MG Tablet PO ×2 (10:53→21:53)
[2024-10-14] MEDS: Enoxaparin 40 MG/0.4 ML Syringe SC (10:53)
[2024-10-14] MEDS: guaiFENesin/D-Methorphan TAB.SR.12H 2 TABLET PO ×2 (10:54→21:53)
[2024-10-14] MEDS: Senna/Docusate Sodium 1 Tablet 2 TABLET PO (10:55)
[2024-10-14] MEDS: Flecainide 100 MG Tablet 50 MG PO ×2 (10:55→21:51)
[2024-10-14] MEDS: Prazosin HCl 1 MG Capsule 2 MG PO ×2 (10:55→21:52)
[2024-10-14 12:13] LABS: Bedside Glucose 196 mg/dL (74-106)
--- NOTE | 2024-10-14 13:01 | PCM.PN.SRG ---
Subjective Subjective Doing better today. Less pain. Had a BM and no pain in anus. No pain in groin or at the base of the penis. Pain is localized to the thigh wound. Objective Data Objective Data Vital Signs: Vital Signs Temp Pulse Resp BP Pulse Ox O2 Del Method O2 Flow Rate 98.1 F 62 20 H 126/58 H 97 Nasal Cannula 2 10/14/24 10:48 10/14/24 11:19 10/14/24 11:19 10/14/24 10:53 10/14/24 10:48 10/14/24 10:48 10/14/24 10:48 FiO2 2 10/13/24 10:45 Oxygen Flow Rate (L/min) 2 Oxygen Delivery Method Nasal Cannula Weight: 286 lb 13.142 oz Body Mass Index (BMI) 42.3 Intake & Output: Intake and Output for Last 24 Hours 10/12/24 10/14/24 10/14/24 23:59 00:59 23:59 Intake Total 2210 / 2210 3612.5 / 3612.5 755 / 755 Output Total 3500 / 3500 2850 / 2850 550 / 550 Balance -1290 / -1290 762.5 / 762.5 205 / 205 Lab / Micro Data 10/13/24 07:25 10/13/24 07:25 Labs: Laboratory Results - last 24 hr 10/13/24 16:27: POC Glucose 135 H 10/13/24 23:10: POC Glucose 142 H 10/14/24 06:48: PT 16.0 H, INR 1.3 10/14/24 07:52: POC Glucose 198 H 10/14/24 11:50: POC Glucose 196 H Micro: Microbiology 10/11/24 Unknown Tissue - Leg, Left Gram Stain - Final 10/11/24 Unknown Tissue - Leg, Left Wound Culture - Preliminary Staphylococcus species Alpha Hemolytic Streptococcus 10/11/24 Unknown Tissue - Leg, Left Anaerobic Culture - Preliminary 10/11/24 Unknown Tissue - Leg, Left Gram Stain - Final 10/11/24 Unknown Tissue - Leg, Left Wound Culture - Preliminary Mixed Gram Positive Organisms 10/11/24 Unknown Tissue - Leg, Left Anaerobic Culture - Preliminary 10/10/24 03:00 Blood Culture (Wb) - Left Hand Blood Culture - Preliminary No growth in 48 hours. 10/10/24 01:30 Mucosa - Nasopharyngeal Respiratory Panel (PCR) - Final 10/09/24 15:30 Mucosa - Nose SARS-CoV-2, Influenza & RSV (PCR) - Final Physical Exam Narrative Left thigh dressings in place (changed this AM) No surrounding cellulitis or signs of ascending infection/crepitus. No pain in groin/perineum with palpation. Assessment & Plan Assessment/Plan (1) Abscess of left thigh: PLAN: Plan for debridement and VAC placement with sedation/local in the OR on 16 October 2024, with plastics. NPO at midnight Mon, 16 October 2024. O.K. for continued prophylactic DVT heparin 5K TID (discussed with medicine team, no need to hold from plastic surgery standpoint). Patient happy with the plan Charges/Coding Visit Charges Inpatient E&M: 13849 [facility] Hosp L1
--- NOTE | 2024-10-14 13:04 | PCM.PN.ID ---
Physical Exam Narrative Feeling better, pain improved, no fever, no n/v/d. Const alert and no apparent distress General Appearance: cooperative Resp normal air movement and clear to auscultation bilaterally Cardio regular rate and regular rhythm GI soft to palpation, non-tender and non-distended Skin Skin Narrative: reviewed wound photo ID ID: Route of nutrition/ use of supplements: [] Nutritional Intake: [] IV Site: [] Georges Catheter: [] Assessment & Plan Assessment/Plan (1) CHF (congestive heart failure): (2) Cellulitis: PLAN: With L groin abscess. On vanc, ceftriaxone, flagyl. Taken to OR 10/11/[address] Johnson and Dr. Aguero, surg cx with staph and strep so far. Will follow
[2024-10-14 13:58] LABS: Vancomycin, Trough Level 20.1 ug/mL (5.0-15.0)
--- NOTE | 2024-10-14 14:15 | PCM.RX.CS ---
Consult Antibiotic Management Pharmacy has been consulted to manage selected antibiotic: Vancomycin Type of Intervention Type of Consult: Follow-up Labs Labs: Sodium 137 mmol/L (133-145) 10/13/24 07:25 Potassium 3.4 mmol/L (3.3-5.1) 10/13/24 07:25 Chloride 102 mmol/L (98-108) 10/13/24 07:25 Carbon Dioxide 21.9 mmol/L (21.0-32.0) 10/13/24 07:25 Anion Gap 13 (5-15) 10/13/24 07:25 BUN 27 mg/dL (4-19) H 10/13/24 07:25 Creatinine 1.41 mg/dL (0.70-1.20) H 10/13/24 07:25 Est GFR (MDRD) Non-Af 51 (>60) L 10/13/24 07: BUN/Creatinine Ratio 19.4 RATIO (10-20) 10/13/24 07:25 Glucose 167 mg/dL (70-99) H 10/13/24 07:25 Vancomycin Trough 20.1 ug/mL (5.0-15.0) H 10/14/24 12:30 Microbiology Microbiology: Microbiology 10/11/24 Unknown Tissue - Leg, Left Gram Stain - Final 10/11/24 Unknown Tissue - Leg, Left Wound Culture - Preliminary Staphylococcus species Alpha Hemolytic Streptococcus 10/11/24 Unknown Tissue - Leg, Left Anaerobic Culture - Preliminary 10/11/24 Unknown Tissue - Leg, Left Gram Stain - Final 10/11/24 Unknown Tissue - Leg, Left Wound Culture - Preliminary Mixed Gram Positive Organisms 10/11/24 Unknown Tissue - Leg, Left Anaerobic Culture - Preliminary 10/10/24 03:00 Blood Culture (Wb) - Left Hand Blood Culture - Preliminary No growth in 48 hours. 10/10/24 01:30 Mucosa - Nasopharyngeal Respiratory Panel (PCR) - Final 10/09/24 15:30 Mucosa - Nose SARS-CoV-2, Influenza & RSV (PCR) - Final Goal Trough Goal Trough: 15-20 mcg/mL Pharmacy Plan for Drug Dosing Pharmacy Plan for Drug Dosing: VANCOMYCIN LEVEL RECEIVED Current Vancomycin Dose: 1250mg IV Q12hr Number of Doses Received: 3 (of current regimen) Vancomycin Level: 20.1 Hours Since Last Dose: 11hr Renal Function: 1.41 Renal Function Trend: stable Lab/Micro: Wcx growing staph spp Vancomycin Plan/Comments: patient had a trough drawn which resulted in a value of 20.1 (goal 15-20). patient is slightly supratherapeutic. Will decrease dose slightly to 1000mg IV Q12hr to start 10/14/24 @1500 Pending Level: 10/16/24 @1430, prior to 4th dose of new regimen Pharmacy Service will continue to monitor and adjust dosing as required.
[2024-10-14] MEDS: Vancomycin IV 1,000 MG/200 ML BAG 200 MG IV (16:10)
[2024-10-14] MEDS: Insulin Glargine-YFGN 100 UNIT/ML Pen 8 UNIT SC (16:56)
[2024-10-14 16:58] LABS: Bedside Glucose 181 mg/dL (74-106)
[2024-10-14] MEDS: Atorvastatin Calcium 40 MG Tablet PO (21:53)
[2024-10-14] MEDS: Ceftriaxone 1 GM/50 ML BAG IV (22:03)
[2024-10-14] MEDS: Acetaminophen 325 MG Tablet 650 MG PO (22:52)
[2024-10-14 23:11] LABS: Bedside Glucose 124 mg/dL (74-106)
[2024-10-15] VITALS (8 sets, daily range): BP systolic 108–128; BP diastolic 41–75; PULSE 56–78; RESP 16–22; TEMP 36.4–37.1; O2SAT 95–98; BMI 42.9
[2024-10-15] MEDS: Morphine 2 MG/ML Syringe IV (00:51)
[2024-10-15] MEDS: Vancomycin IV 1,000 MG/200 ML BAG 200 MG IV ×2 (03:13→15:16)
[2024-10-15 05:49] LABS: Absolute Lymphocyte Count 2.41 X10^3/uL (0.83-4.51); Absolute Neutrophil Count 6.1 X10^3/uL (2.0-7.7); Basophil# 0.04 X10^3/uL; Basophil% 0.4 % (0-1); Eosinophil# 0.09 X10^3/uL; Hematocrit 35.8 % (40-54); Hemoglobin 11.7 g/dL (13.0-16.5); Lymphocyte # 2.41 X10^3/ul (0.83-4.51); Lymphocyte % 25.8 % (19-41); Mean Corp Hgb Conc 32.7 g/dL (32-36); Mean Corpuscular Hgb 30.8 pg (27.0-32.0); Mean Corpuscular Volume 94.2 fL (80-94); Mean Platelet Vol. 10.1 fl (6.2-12.0); Monocyte# 0.53 X10^3/uL; Monocyte% 5.7 % (0-10); NRBC Flagged by Analyzer 0 % (0-5); Neutrophil # 6.07 X10^3/uL (2.7-7.7); Platelet Count 217 K/mm3 (150-450); RBC Distribution Width CV 14.6 % (11.6-14.6); RBC Distribution Width SD 50.9 fl (35.1-43.9); White Blood Count 9.3 K/mm3 (4.4-11.0)
[2024-10-15 06:04] LABS: International Normalized Ratio 1.3; Prothrombin Time (Protime)PT. 16.1 SECONDS (11.7-14.9)
[2024-10-15] MEDS: Lactobacillis Acidophilus 1 CAP PO ×3 (06:08→22:28)
[2024-10-15] MEDS: Dicyclomine 10 MG Capsule 20 MG PO ×3 (06:08→22:26)
[2024-10-15] MEDS: Insulin Lispro 100 UNIT/ML INSULN.PEN SC ×4 (06:17→22:35)
[2024-10-15] MEDS: Acetaminophen 325 MG Tablet 650 MG PO ×2 (06:19→17:57)
[2024-10-15] MEDS: metroNIDAZOLE 500 MG/100 ML BAG 100 MG IV ×3 (06:21→22:16)
[2024-10-15] MEDS: Insulin Lispro 100 UNIT/ML INSULN.PEN 10 UNIT SC ×3 (06:25→16:42)
[2024-10-15 06:36] LABS: Anion Gap 14 (5-15); BUN 20 mg/dL (4-19); Calcium,Total 7.4 mg/dL (7.6-11.0); Carbon Dioxide 21.6 mmol/L (21.0-32.0); Chloride 99 mmol/L (98-108); Creatinine, Serum 1.34 mg/dL (0.70-1.20); EST Glomerular Filtration Rate 54 (>60); Estimated Creatinine Clearance 61.16 ml/min (50-250); Glucose 170 mg/dL (70-99); Sodium Level 134 mmol/L (133-145)
[2024-10-15 06:46] LABS: Bedside Glucose 166 mg/dL (74-106)
[2024-10-15] MEDS: HYDROmorphone 0.5 MG/0.5 ML SYRINGE IV (07:58)
[2024-10-15] MEDS: 0.9% Saline Lock 10 ML Syringe IV ×5 (07:59→17:57)
--- NOTE | 2024-10-15 08:45 | PN.HOSP_ITS ---
Reason for Visit Reason for Visit: Diagnoses Type 2 diabetes mellitus without complications (10/09/24) Heart failure, unspecified (10/09/24) Cutaneous abscess of left lower limb (10/09/24) Cellulitis, unspecified (10/09/24) Subjective Subjective Lost IV access. LUE PICC placed. Objective Data Objective Data Vital Signs: Vital Signs Temp Pulse Resp BP Pulse Ox O2 Del Method O2 Flow Rate 36.4 C L 67 22 H 128/75 H 95 Nasal Cannula 2 10/15/24 03:00 10/15/24 07:26 10/15/24 07:26 10/15/24 03:00 10/15/24 07:26 10/15/24 07:26 10/15/24 07:26 FiO2 2 10/13/24 10:45 Oxygen Flow Rate (L/min) 2 Oxygen Delivery Method Nasal Cannula Weight: 131.9 kg Body Mass Index (BMI) 42.9 Intake & Output: Intake and Output for Last 24 Hours 10/14/24 10/14/24 10/15/24 00:59 23:59 23:59 Intake Total 3612.5 / 3612.5 1205 / 1205 300 / 300 Output Total 2850 / 2850 1999 / 1999 Balance 762.5 / 762.5 -795 / -795 300 / 300 Lab / Micro Data 10/15/24 04:49 10/15/24 04:49 Labs: Laboratory Results - last 24 hr 10/14/24 11:50: POC Glucose 196 H 10/14/24 12:30: Vancomycin Trough 20.1 H 10/14/24 16:16: POC Glucose 181 H 10/14/24 22:01: POC Glucose 124 H 10/15/24 04:49: WBC 9.3, RBC 3.80 L, Hgb 11.7 L, Hct 35.8 L, MCV 94.2 H, MCH 30.8, MCHC 32.7, RDW Std Deviation 50.9 H, RDW Coeff of Jadon 14.6, Plt Count 217, MPV 10.1, Immature Gran % (Auto) 2.100 H, Neut % (Auto) 65.0, Lymph % (Auto) 25.8, [place] % (Auto) 5.7, Eos % (Auto) 1.0, Baso % (Auto) 0.4, Absolute Neuts (auto) 6.1, Absolute Lymphs (auto) 2.41, Nucleated RBC % 0, PT 16.1 H, INR 1.3, Sodium 134, Potassium 3.0 L, Chloride 99, Carbon Dioxide 21.6, Anion Gap 14, BUN 20 H, Creatinine 1.34 H, Estim Creat Clear Calc 61.16, Est GFR (MDRD) Non-Af 54 L, BUN/Creatinine Ratio 15.0, Glucose 170 H, Calcium 7.4 L 10/15/24 06:17: POC Glucose 166 H Micro: Microbiology 10/11/24 Unknown Tissue - Leg, Left Gram Stain - Final 10/11/24 Unknown Tissue - Leg, Left Wound Culture - Final Staphylococcus epidermidis Granulicatella adiacens Gram positive eric 10/11/24 Unknown Tissue - Leg, Left Gram Stain - Final 10/11/24 Unknown Tissue - Leg, Left Wound Culture - Preliminary Staphylococcus epidermidis#2 Granulicatella adiacens Staphylococcus epidermidis Gram positive eric 10/10/24 03:00 Blood Culture (Wb) - Left Hand Blood Culture - Final No growth in 5 days. 10/10/24 01:30 Mucosa - Nasopharyngeal Respiratory Panel (PCR) - Final 10/09/24 15:30 Mucosa - Nose SARS-CoV-2, Influenza & RSV (PCR) - Final Physical Exam Narrative groggy, dozes off during encounter. Const alert and no apparent distress HEENT head/scalp atraumatic and moist oral mucous membranes Resp normal respiratory effort, no retractions, no use of accessory muscles and clear to auscultation bilaterally Cardio regular rate, regular rhythm, S1 normal heart sound and S2 normal heart sound GI normal to inspection, nondistended, normoactive bowel sounds, soft to palpation, non-tender and non-distended Extremity Extremity Narrative: left leg wound wrapped. Neuro Sensorium / Orientation: awake and alert Assessment & Plan Assessment/Plan (1) Abscess of left thigh: PLAN: Necrotizing soft tissue infection of left thigh. Pt underwent I+D with debridement of left thigh abscess with Drs. Johnson and More on 10/11. Tentative plan is for the patient to back to the OR on 10/16 for further debridement and wound vac. Cultures from the still pending. On vanc, metronidazole and CTX. ID following (2) CHF (congestive heart failure): PLAN: acute HFpEF echo 10/10 shows an EF 65%. Mild LVH. on furosemide 60 IV bid (3) Type 2 diabetes mellitus: PLAN: a1c 8.5 only takes metformin at home. now on glargine and SSI. Glargine just increased from 12 to 15 in AM and 8 QHS. Hold off on further changes at this time and observe. PLAN: Plan Chronic conditions: * pafib/flutter: warfarin on hold for potential surgery on the . * COPD: BDs * HTN * obesity class III: complicates care and recovery. VTE prophylaxis: LMWH. Charges/Coding Visit Charges Inpatient E&M: 34360 Subs Hosp L2
--- NOTE | 2024-10-15 10:11 | WOUNDNOTE ---
Dr Johnson and EDER Castro had been in this am to change the left inner thigh dressing. pt is scheduled for surgery tomorrow with Dr Aguero.
[2024-10-15] MEDS: Furosemide 40 MG/4 ML Vial 60 MG IV ×2 (10:15→17:56)
[2024-10-15] MEDS: Potassium Chloride Oral Tablet 20 MEQ PO (10:15)
[2024-10-15] MEDS: Insulin Glargine-YFGN 100 UNIT/ML Pen 15 UNIT SC (10:15)
[2024-10-15] MEDS: guaiFENesin/D-Methorphan TAB.SR.12H 2 TABLET PO ×2 (10:16→22:28)
[2024-10-15] MEDS: Prazosin HCl 1 MG Capsule 2 MG PO ×2 (10:16→22:29)
[2024-10-15] MEDS: Metoprolol Tartrate 100 MG Tablet PO ×2 (10:16→22:24)
[2024-10-15] MEDS: Enoxaparin 40 MG/0.4 ML Syringe SC (10:16)
[2024-10-15] MEDS: Senna/Docusate Sodium 1 Tablet 2 TABLET PO (10:17)
[2024-10-15] MEDS: Flecainide 100 MG Tablet 50 MG PO ×2 (10:17→22:30)
--- NOTE | 2024-10-15 10:44 | PCM.PN.SRG ---
Subjective Subjective Patient evaluated resting comfortable in bed. He denies any new concerns or complaints. Objective Data Objective Data Vital Signs: Vital Signs Temp Pulse Resp BP Pulse Ox O2 Del Method O2 Flow Rate 97.8 F 74 18 108/47 L 95 Nasal Cannula 2 10/15/24 10:12 10/15/24 10:16 10/15/24 10:12 10/15/24 10:12 10/15/24 10:12 10/15/24 10:12 10/15/24 10:12 FiO2 2 10/13/24 10:45 Oxygen Flow Rate (L/min) 2 Oxygen Delivery Method Nasal Cannula Weight: 290 lb 12.635 oz Body Mass Index (BMI) 42.9 Intake & Output: Intake and Output for Last 24 Hours 10/14/24 10/14/24 10/15/24 00:59 23:59 23:59 Intake Total 3612.5 / 3612.5 1205 / 1205 300 / 300 Output Total 2850 / 2850 1999 / 1999 Balance 762.5 / 762.5 -795 / -795 300 / 300 Lab / Micro Data 10/15/24 04:49 10/15/24 04:49 Labs: Laboratory Results - last 24 hr 10/14/24 11:50: POC Glucose 196 H 10/14/24 12:30: Vancomycin Trough 20.1 H 10/14/24 16:16: POC Glucose 181 H 10/14/24 22:01: POC Glucose 124 H 10/15/24 04:49: WBC 9.3, RBC 3.80 L, Hgb 11.7 L, Hct 35.8 L, MCV 94.2 H, MCH 30.8, MCHC 32.7, RDW Std Deviation 50.9 H, RDW Coeff of Jadon 14.6, Plt Count 217, MPV 10.1, Immature Gran % (Auto) 2.100 H, Neut % (Auto) 65.0, Lymph % (Auto) 25.8, [place] % (Auto) 5.7, Eos % (Auto) 1.0, Baso % (Auto) 0.4, Absolute Neuts (auto) 6.1, Absolute Lymphs (auto) 2.41, Nucleated RBC % 0, PT 16.1 H, INR 1.3, Sodium 134, Potassium 3.0 L, Chloride 99, Carbon Dioxide 21.6, Anion Gap 14, BUN 20 H, Creatinine 1.34 H, Estim Creat Clear Calc 61.16, Est GFR (MDRD) Non-Af 54 L, BUN/Creatinine Ratio 15.0, Glucose 170 H, Calcium 7.4 L 10/15/24 06:17: POC Glucose 166 H Micro: Microbiology 10/11/24 Unknown Tissue - Leg, Left Gram Stain - Final 10/11/24 Unknown Tissue - Leg, Left Wound Culture - Final Staphylococcus epidermidis Granulicatella adiacens Gram positive eric 10/11/24 Unknown Tissue - Leg, Left Gram Stain - Final 10/11/24 Unknown Tissue - Leg, Left Wound Culture - Preliminary Staphylococcus epidermidis#2 Granulicatella adiacens Staphylococcus epidermidis Gram positive eric 10/10/24 03:00 Blood Culture (Wb) - Left Hand Blood Culture - Final No growth in 5 days. 10/10/24 01:30 Mucosa - Nasopharyngeal Respiratory Panel (PCR) - Final 10/09/24 15:30 Mucosa - Nose SARS-CoV-2, Influenza & RSV (PCR) - Final Physical Exam Skin Skin Narrative: Left medial thigh wound- wound base with healthy granulation tissue noted. No active bleeding noted. Serous fluid noted for drainage. Wound was packed with dampened saline Kerlix, ABD pad x 2 was applied and secured with Kerlix and minimal tape. Assessment & Plan Assessment/Plan (1) Abscess of left thigh: PLAN: I am following this patient in conjunction with Dr. Johnson. He has independently evaluated this patient. Labs reviewed. Microbiology shows staph epidermidis, granulicatella adiacens, gram positive eric. Acid fast bacilli Smear and fungal cultures pending Continue IV antibiotics Patient tentatively scheduled for OR with plastics tomorrow for further debridement We will continue to monitor this patient Charges/Coding Visit Charges Inpatient E&M: 89245 Subs Hosp L1 (post-op)
--- NOTE | 2024-10-15 10:54 | PCM.PN.ID ---
Physical Exam Narrative Feeling better, pain improved, no fever, no n/v/d. Const alert and no apparent distress General Appearance: cooperative Resp normal air movement and clear to auscultation bilaterally Cardio regular rate and regular rhythm GI soft to palpation, non-tender and non-distended Skin Skin Narrative: no new rash. L groin dressing in place ID ID: Route of nutrition/ use of supplements: [] Nutritional Intake: [] IV Site: [] Georges Catheter: [] Assessment & Plan Assessment/Plan (1) CHF (congestive heart failure): (2) Cellulitis: PLAN: With necrotic L groin abscess. On vanc, ceftriaxone, flagyl. Taken to OR 10/11/[address] Johnson and Dr. Aguero, surg cx with staph epi, granulicatella, and GPR so far. Will follow
[2024-10-15] MEDS: Ipratropium/Albuterol Sulfate 3 ML AMPUL.NEB INHALATION ×2 (10:58→20:25)
[2024-10-15 11:20] LABS: Bedside Glucose 189 mg/dL (74-106)
--- NOTE | 2024-10-15 13:46 | PN.SURG_ITS ---
<Statement entered by Jenaro Aguero MD - 10/15/24 14:39> I have personally performed a face to face assessment of the patient and have reviewed the DILAN Note. Subjective Subjective Patient states he is doing well. He is denying increased pain or fevers. He is eating lunch. Objective Data Objective Data Vital Signs: Vital Signs Temp Pulse Resp BP Pulse Ox O2 Del Method O2 Flow Rate 97.8 F 74 18 108/47 L 95 Nasal Cannula 2 10/15/24 10:12 10/15/24 10:16 10/15/24 10:12 10/15/24 10:12 10/15/24 10:12 10/15/24 10:12 10/15/24 10:12 FiO2 2 10/13/24 10:45 Oxygen Flow Rate (L/min) 2 Oxygen Delivery Method Nasal Cannula Weight: 290 lb 12.635 oz Body Mass Index (BMI) 42.9 Intake & Output: Intake and Output for Last 24 Hours 10/14/24 10/14/24 10/15/24 00:59 23:59 23:59 Intake Total 3612.5 / 3612.5 1205 / 1205 300 / 300 Output Total 2850 / 2850 1999 / 1999 Balance 762.5 / 762.5 -795 / -795 300 / 300 Lab / Micro Data Attestation: I reviewed the patient's lab results. 10/15/24 04:49 10/15/24 04:49 Labs: Laboratory Results - last 24 hr 10/14/24 12:30: Vancomycin Trough 20.1 H 10/14/24 16:16: POC Glucose 181 H 10/14/24 22:01: POC Glucose 124 H 10/15/24 04:49: WBC 9.3, RBC 3.80 L, Hgb 11.7 L, Hct 35.8 L, MCV 94.2 H, MCH 30.8, MCHC 32.7, RDW Std Deviation 50.9 H, RDW Coeff of Jadon 14.6, Plt Count 217, MPV 10.1, Immature Gran % (Auto) 2.100 H, Neut % (Auto) 65.0, Lymph % (Auto) 25.8, [place] % (Auto) 5.7, Eos % (Auto) 1.0, Baso % (Auto) 0.4, Absolute Neuts (auto) 6.1, Absolute Lymphs (auto) 2.41, Nucleated RBC % 0, PT 16.1 H, INR 1.3, Sodium 134, Potassium 3.0 L, Chloride 99, Carbon Dioxide 21.6, Anion Gap 14, BUN 20 H, Creatinine 1.34 H, Estim Creat Clear Calc 61.16, Est GFR (MDRD) Non-Af 54 L, BUN/Creatinine Ratio 15.0, Glucose 170 H, Calcium 7.4 L 10/15/24 06:17: POC Glucose 166 H 10/15/24 10:56: POC Glucose 189 H Micro: Microbiology 10/11/24 Unknown Tissue - Leg, Left Gram Stain - Final 10/11/24 Unknown Tissue - Leg, Left Wound Culture - Final Staphylococcus epidermidis Granulicatella adiacens Gram positive eric 10/11/24 Unknown Tissue - Leg, Left Gram Stain - Final 10/11/24 Unknown Tissue - Leg, Left Wound Culture - Preliminary Staphylococcus epidermidis#2 Granulicatella adiacens Staphylococcus epidermidis Gram positive eric 10/10/24 03:00 Blood Culture (Wb) - Left Hand Blood Culture - Final No growth in 5 days. 10/10/24 01:30 Mucosa - Nasopharyngeal Respiratory Panel (PCR) - Final 10/09/24 15:30 Mucosa - Nose SARS-CoV-2, Influenza & RSV (PCR) - Final Physical Exam Narrative Left thigh dressing intact. It was changed earlier today. No erythema surrounding dressing. Const alert and oriented x3 General Appearance: cooperative HEENT normocephalic Eyes General Eye: normal appearance of both eyes Resp normal air movement Effort and Inspection: able to speak in complete sentences Assessment & Plan Assessment/Plan (1) Abscess of left thigh: PLAN: Plan Plan for operative debridement and wound VAC placement tomorrow by Dr. Aguero. NPO after midnight tonight. Discussed the plan with patient and his . Answered all of their questions. Wound care is NS moistened dressings placed into the wound covered with ABD bid. He continues to have monsalve catheter in place. ID consulted. Patient on Vanc, ceftriaxone, and Flagyl. Preliminary operative cultures from 10/11/24 positive for Staph epi x2, Granulicatella adiacens, Gram positive rods. Encouraged increased protein intake and supplementation to help with wound healing. Discussed plan of care with Dr. Aguero.
--- NOTE | 2024-10-15 14:35 | RAD_ITS ---
EXAM: XR Chest, 1 View CLINICAL INDICATION: PICC LINE PLACEMENT TECHNIQUE: Frontal view of the chest. COMPARISON: No relevant prior studies available. FINDINGS: LUNGS AND PLEURAL SPACES: Unremarkable. No consolidation. No pneumothorax. HEART: Unremarkable. No cardiomegaly. MEDIASTINUM: Unremarkable. Normal mediastinal contour. BONES/JOINTS: Unremarkable. No acute fracture. TUBES, LINES AND DEVICES: Status post left-sided PICC line placement with distal tip at the proximal SVC. RAD/CXR for Line Placement IMPRESSION: Status post left-sided PICC line placement with distal tip at the proximal SVC. Reading [facility]
[2024-10-15] MEDS: Potassium Chloride Oral Tablet 20 MEQ 60 MEQ PO (15:20)
--- NOTE | 2024-10-15 15:55 | RAD_ITS ---
PROCEDURE: CHEST 1 VIEW (PORTABLE) (RADCXPA_P), 10/15/2024 REASON FOR EXAM: PICC LINE PLACEMENT TECHNIQUE: A single portable AP view of the chest was obtained. COMPARISON: Radiograph of same date FINDINGS: Heart: Unremarkable. Mediastinum: Similar contours including widening of the right paratracheal stripe.. Lungs/pleura: Emphysema. Scarring is grossly similar but better depicted on recent CT. Known right apical pleural-based lesion better depicted on recent CT. No sizeable pleural effusion or visible pneumothorax. Bones: Unremarkable. Lines and support devices: Redemonstrated left upper extremity PICC with tip projecting over the mid SVC. Other: Similar surgical clips projecting over the right upper chest wall. RAD/Chest 1 View (Portable) IMPRESSION: 1. Redemonstrated left upper extremity PICC with tip projecting over the mid SV C. 2. Additional description as above. Reading Location: [id number]
[2024-10-15] MEDS: Insulin Glargine-YFGN 100 UNIT/ML Pen 8 UNIT SC (16:43)
[2024-10-15] MEDS: 0.9% Normal Saline (1000mL) 1,000 ML 15 ML IV (17:13)
[2024-10-15 17:19] LABS: Bedside Glucose 178 mg/dL (74-106)
[2024-10-15] MEDS: Atorvastatin Calcium 40 MG Tablet PO (22:23)
[2024-10-15] MEDS: DAKIN'S SOL HALF STRENGTH (=0.25%) TOPICAL (22:24)
[2024-10-15] MEDS: Ceftriaxone 1 GM/50 ML BAG IV (22:43)
[2024-10-15 22:56] LABS: Bedside Glucose 212 mg/dL (74-106)
[2024-10-16] VITALS (17 sets, daily range): BP systolic 109–125; BP diastolic 43–86; PULSE 53–78; RESP 16–20; TEMP 36.3–36.9; O2SAT 94–100; BMI 43.0
[2024-10-16 03:00] LABS: Absolute Lymphocyte Count 2.34 X10^3/uL (0.83-4.51); Absolute Neutrophil Count 6.7 X10^3/uL (2.0-7.7); Basophil# 0.05 X10^3/uL; Basophil% 0.5 % (0-1); Eosinophil# 0.14 X10^3/uL; Eosinophils% 1.4 % (0-5); Hematocrit 34.5 % (40-54); Hemoglobin 11.1 g/dL (13.0-16.5); Lymphocyte # 2.34 X10^3/ul (0.83-4.51); Lymphocyte % 23.4 % (19-41); Mean Corp Hgb Conc 32.2 g/dL (32-36); Mean Corpuscular Hgb 30.5 pg (27.0-32.0); Mean Corpuscular Volume 94.8 fL (80-94); Mean Platelet Vol. 9.7 fl (6.2-12.0); Monocyte# 0.59 X10^3/uL; Monocyte% 5.9 % (0-10); NRBC Flagged by Analyzer 0 % (0-5); Neutrophil # 6.65 X10^3/uL (2.7-7.7); Neutrophil % 66.7 % (47-70); Platelet Count 240 K/mm3 (150-450); RBC Distribution Width CV 14.7 % (11.6-14.6); RBC Distribution Width SD 51.5 fl (35.1-43.9); Red Blood Count 3.64 M/mm3 (4.6-6.2)
[2024-10-16] MEDS: Vancomycin Trough/Random Due 1 LAB MC (03:09)
[2024-10-16 03:11] LABS: International Normalized Ratio 1.3; Prothrombin Time (Protime)PT. 16.7 SECONDS (11.7-14.9)
[2024-10-16 03:16] LABS: Anion Gap 12 (5-15); BUN 21 mg/dL (4-19); Calcium,Total 7.4 mg/dL (7.6-11.0); Carbon Dioxide 22.3 mmol/L (21.0-32.0); Chloride 102 mmol/L (98-108); EST Glomerular Filtration Rate 56 (>60); Estimated Creatinine Clearance 63.05 ml/min (50-250); Glucose 157 mg/dL (70-99); Potassium 3.4 mmol/L (3.3-5.1); Sodium Level 136 mmol/L (133-145)
[2024-10-16 03:29] LABS: Vancomycin, Trough Level 18.9 ug/mL (5.0-15.0)
[2024-10-16] MEDS: Vancomycin IV 1,000 MG/200 ML BAG 200 MG IV ×2 (03:36→16:24)
--- NOTE | 2024-10-16 03:36 | PCM.RX.CS ---
Consult Antibiotic Management Pharmacy has been consulted to manage selected antibiotic: Vancomycin Type of Intervention Type of Consult: Follow-up Labs Labs: Sodium 136 mmol/L (133-145) 10/16/24 02:30 Potassium 3.4 mmol/L (3.3-5.1) 10/16/24 02:30 Chloride 102 mmol/L (98-108) 10/16/24 02:30 Carbon Dioxide 22.3 mmol/L (21.0-32.0) 10/16/24 02:30 Anion Gap 12 (5-15) 10/16/24 02:30 BUN 21 mg/dL (4-19) H 10/16/24 02:30 Creatinine 1.30 mg/dL (0.70-1.20) H 10/16/24 02:30 Est GFR (MDRD) Non-Af 56 (>60) L 10/16/24 02:30 BUN/Creatinine Ratio 16.0 RATIO (10-20) 10/16/24 02:30 Glucose 157 mg/dL (70-99) H 10/16/24 02:30 Vancomycin Trough 18.9 ug/mL (5.0-15.0) H 10/16/24 02:30 Microbiology Microbiology: Microbiology 10/11/24 Unknown Tissue - Leg, Left Gram Stain - Final 10/11/24 Unknown Tissue - Leg, Left Wound Culture - Final Staphylococcus epidermidis Granulicatella adiacens Gram positive eric 10/11/24 Unknown Tissue - Leg, Left Gram Stain - Final 10/11/24 Unknown Tissue - Leg, Left Wound Culture - Preliminary Staphylococcus epidermidis#2 Granulicatella adiacens Staphylococcus epidermidis Gram positive eric 10/10/24 03:00 Blood Culture (Wb) - Left Hand Blood Culture - Final No growth in 5 days. 10/10/24 01:30 Mucosa - Nasopharyngeal Respiratory Panel (PCR) - Final 10/09/24 15:30 Mucosa - Nose SARS-CoV-2, Influenza & RSV (PCR) - Final Goal Trough Goal Trough: 15-20 mcg/mL Pharmacy Plan for Drug Dosing Pharmacy Plan for Drug Dosing: Pharmacy Service will continue to monitor and adjust dosing as required. TROUGH 18.9 @ 11.25 HOURS. NO CHANGES, FOLLOW UP TROUGH IN 2 DAYS Follow-Up Labs Follow-Up Labs: Trough: Vancomycin Date/Time Labs Ordered Labs to be done on [date and time ordered]: 10/18 @ 0230
--- NOTE | 2024-10-16 06:05 | NURSING ---
RN going to patient room to give 0600 IV antibiotic and check blood sugar. FUR PULLER Suzanne was ahead of me entering room. Patient found sitting on bathroom floor. Patient had broken PI tubing from PICC line. Remnant tubing disconnected and line flushed. Patient awake. Stated he had to go to the bathroom. Patient did not call. Bed alarm did not sound. Patient stated he hit his head on the door frame. 2 RN's assisted patient to his feet. Patient pivoted to bed. Dr Torres was notified and patient taken on bed to CT scan for head and neck CT. Patient had red area to right forehead. and abrasion to right lower forearm, right lower lateral chest and right buttock. After returning to patient room from CT scan, new IV tubing obtained for PICC line and medications hung. hand bobbin cleaner contacted patient brother to notify of fall.
--- NOTE | 2024-10-16 06:16 | CT_ITS ---
EXAM: BRAIN/HEAD WITHOUT CONTRAST CLINICAL HISTORY: FALL COMPARISON: None. TECHNIQUE: CT of the brain was performed without intravenous contrast administration. Multiplanar reformats were obtained afterwards. FINDINGS: There is no acute intracranial hemorrhage, mass effect or midline shift. There are no abnormal extra-axial fluid collections present. The ventricles and sulci are within normal limits. Hypodense areas are seen within the subcortical white matter are most compatible with chronic microvascular ischemic disease. The calvarium is intact. Visualized paranasal sinuses are unremarkable. The mastoids are well aerated. CT/Brain/Head without Contrast IMPRESSION: No acute intracranial hemorrhage, mass effect or midline shift. Reading Location: [id number]
--- NOTE | 2024-10-16 06:16 | CT_ITS ---
PROCEDURE: SPINE CERVICAL WITHOUT CONTRAS REASON FOR EXAM: FALL TECHNIQUE: Cervical spine CT without contrast. COMPARISON: None. FINDINGS: There is mild straightening of the cervical spine. Degenerative changes is noted with disc space narrowing and endplate changes particularly at C5-6 and C6-7. No acute fracture or dislocation is seen. Mild thickening is present within the lower right mastoid. CT/Spine Cervical without Contras IMPRESSION: No acute fracture or dislocation is seen within the cervical spine. One or more dose reduction techniques were used (e.g., Automated exposure contr ol, adjustment of the mA and/or kV according to patient size, use of iterative reconstruction technique). Reading Location: [id number]
[2024-10-16] MEDS: metroNIDAZOLE 500 MG/100 ML BAG 100 MG IV ×3 (06:55→22:44)
[2024-10-16] MEDS: Ipratropium/Albuterol Sulfate 3 ML AMPUL.NEB INHALATION ×3 (07:13→19:03)
[2024-10-16 07:25] LABS: Bedside Glucose 186 mg/dL (74-106)
--- NOTE | 2024-10-16 07:51 | NURSING ---
Notified patients brother Enrique of fall this am and room change to 102. States will have family in today around 0900 prior to the planned surgery.
--- NOTE | 2024-10-16 08:35 | PN.HOSP_ITS ---
Reason for Visit Reason for Visit: Diagnoses Type 2 diabetes mellitus without complications (10/09/24) Heart failure, unspecified (10/09/24) Cutaneous abscess of left lower limb (10/09/24) Cellulitis, unspecified (10/09/24) Subjective Subjective Got confused last night and fell. Landing on his right hip. Objective Data Objective Data Vital Signs: Vital Signs Temp Pulse Resp BP Pulse Ox O2 Del Method O2 Flow Rate 36.8 C 64 20 H 116/56 L 94 Nasal Cannula 2 10/16/24 02:00 10/16/24 02:00 10/16/24 02:00 10/16/24 02:00 10/16/24 02:00 10/16/24 02:50 10/16/24 02:50 FiO2 2 10/13/24 10:45 Oxygen Flow Rate (L/min) 2 Oxygen Delivery Method Nasal Cannula Weight: 132 kg Body Mass Index (BMI) 43.0 Intake & Output: Intake and Output for Last 24 Hours 10/14/24 10/15/24 10/16/24 23:59 23:59 23:59 Intake Total 1205 / 1205 750 / 1190 740 / 740 Output Total 1999 / 1999 750 / 1600 1200 / 1200 Balance -795 / -795 0 / -410 -460 / -460 Lab / Micro Data 10/16/24 02:30 10/16/24 02:30 Labs: Laboratory Results - last 24 hr 10/15/24 10:56: POC Glucose 189 H 10/15/24 16:42: POC Glucose 178 H 10/15/24 22:34: POC Glucose 212 H 10/16/24 02:30: WBC 10.0, RBC 3.64 L, Hgb 11.1 L, Hct 34.5 L, MCV 94.8 H, MCH 30.5, MCHC 32.2, RDW Std Deviation 51.5 H, RDW Coeff of Jadon 14.7 H, Plt Count 240, MPV 9.7, Immature Gran % (Auto) 2.100 H, Neut % (Auto) 66.7, Lymph % (Auto) 23.4, [place] % (Auto) 5.9, Eos % (Auto) 1.4, Baso % (Auto) 0.5, Absolute Neuts (auto) 6.7, Absolute Lymphs (auto) 2.34, Nucleated RBC % 0, PT 16.7 H, INR 1.3, Sodium 136, Potassium 3.4, Chloride 102, Carbon Dioxide 22.3, Anion Gap 12, BUN 21 H, Creatinine 1.30 H, Estim Creat Clear Calc 63.05, Est GFR (MDRD) Non-Af 56 L, BUN/Creatinine Ratio 16.0, Glucose 157 H, Calcium 7.4 L, Vancomycin Trough 18.9 H 10/16/24 07:07: POC Glucose 186 H Micro: Microbiology 10/11/24 Unknown Tissue - Leg, Left Gram Stain - Final 10/11/24 Unknown Tissue - Leg, Left Wound Culture - Final Staphylococcus epidermidis Granulicatella adiacens Actinotignum schaalii 10/11/24 Unknown Tissue - Leg, Left Gram Stain - Final 10/11/24 Unknown Tissue - Leg, Left Wound Culture - Final Staphylococcus epidermidis#2 Granulicatella adiacens Staphylococcus epidermidis Actinotignum schaalii 10/10/24 03:00 Blood Culture (Wb) - Left Hand Blood Culture - Final No growth in 5 days. 10/10/24 01:30 Mucosa - Nasopharyngeal Respiratory Panel (PCR) - Final 10/09/24 15:30 Mucosa - Nose SARS-CoV-2, Influenza & RSV (PCR) - Final Radiography Diagnostic Testing: Radiology Impression Chest X-Ray 10/15/24 14:35 IMPRESSION: Status post left-sided PICC line placement with distal tip at the proximal SVC. Reading Location: [facility] Chest X-Ray 10/15/24 15:55 IMPRESSION: 1. Redemonstrated left upper extremity PICC with tip projecting over the mid SVC. 2. Additional description as above. Reading Location: [id number] Brain CT 10/16/24 06:16 IMPRESSION: No acute intracranial hemorrhage, mass effect or midline shift. Reading Location: [id number] Cervical Spine CT 10/16/24 06:16 IMPRESSION: No acute fracture or dislocation is seen within the cervical spine. One or more dose reduction techniques were used (e.g., Automated exposure control, adjustment of the mA and/or kV according to patient size, use of iterative reconstruction technique). Reading Location: [id number] Physical Exam Const alert and no apparent distress Resp normal respiratory effort, no retractions, no use of accessory muscles and clear to auscultation bilaterally Cardio regular rate, regular rhythm, S1 normal heart sound and S2 normal heart sound GI normal to inspection, nondistended, normoactive bowel sounds, soft to palpation, non-tender and non-distended Extremity normal to inspection Extremity Narrative: Left leg wound wrapped, did not remove. Bilateral lower extremity edema more prominent in the buttocks and posterior legs. Neuro Sensorium / Orientation: awake and alert Psych affect normal Assessment & Plan Assessment/Plan (1) Abscess of left thigh: PLAN: Necrotizing soft tissue infection of left thigh. Pt underwent I+D with debridement of left thigh abscess with Drs. Johnson and More on 10/11. Patient underwent further excision of left thigh wound and wound VAC placement on October 16. Plan is to rechange the wound VAC on the Cultures from the showed Staph epidermidis, Granulicatella, Actinotignum On vanc, metronidazole and CTX. ID following: Plan is for discharge is 1 week of Doxy 100 twice daily, cefdinir 300 twice daily and metronidazole 500 3 times daily. (2) CHF (congestive heart failure): PLAN: acute HFpEF echo 10/10 shows an EF 65%. Mild LVH. on furosemide 60 IV bid (3) Type 2 diabetes mellitus: PLAN: a1c 8.5 only takes metformin at home. now on glargine and SSI. Glargine just increased from 12 to 15 in AM and 8 QHS. Hold off on further changes at this time and observe. PLAN: Plan Chronic conditions: * pafib/flutter: warfarin on hold for potential surgery on the . * COPD: BDs * HTN * obesity class III: complicates care and recovery. VTE prophylaxis: LMWH. Charges/Coding Visit Charges Inpatient E&M: 65291 Subs Hosp L2
--- NOTE | 2024-10-16 09:36 | PCM.PRE.AN2 ---
ASA Classification* ASA Classification ASA Classification: 3 Assessment & Plan Anesthesia* Anesthesia Assessment Anesthesia Assessment: Discussed sedation and/or anesthesia options, risks, benefits, and alternatives with patient/parents/legal guardian/POA. Questions invited. The patient/parents/legal guardian/POA seems to understand and agrees to proceed with anesthesia plan. Reviewed the physical assessment, medical history, allergy history and patient home medications list prior to surgery/procedure/anesthetic and documented any changes. Performed airway and anesthesia risk assessments. Anesthesia Type Anesthesia Type: MAC Anesthesia Focused Assessment* Temperature: 98.3 F Pulse Rate: 61 Blood Pressure: 121/61 Respiratory Rate: 18 Pulse Ox: 98 Oxygen Flow Rate (L/min): 2 Fraction of Inspired Oxygen (FIO2): 2 Airway Assessment Mouth opens: >3 cm Mallampati Score: II Focused Labs Anesthesia Preop lab: CBC WBC 10.0 K/mm3 (4.4-11.0) 10/16/24 02:30 10/16/24 RBC 3.64 M/mm3 (4.6-6.2) L 10/16/24 02:30 10/16/24 Hgb 11.1 g/dL (13.0-16.5) L 10/16/24 02:30 10/16/24 Hct 34.5 % (40-54) L 10/16/24 02:30 10/16/24 Plt Count 240 K/mm3 (150-450) 10/16/24 02:30 10/16/24 CHEMISTRY Potassium 3.4 mmol/L (3.3-5.1) 10/16/24 02:30 10/16/24 Sodium 136 mmol/L (133-145) 10/16/24 02:30 10/16/24 Magnesium 2.2 mg/dL (1.5-2.2) 10/10/24 06:02 10/10/24 Phosphorus 3.7 mg/dL (2.5-4.9) 05/01/24 06:13 05/01/24 BUN 21 mg/dL (4-19) H 10/16/24 02:30 10/16/24 Creatinine 1.30 mg/dL (0.70-1.20) H 10/16/24 02:30 10/16/24 Glucose 157 mg/dL (70-99) H 10/16/24 02:30 10/16/24 POC Glucose 186 mg/dL (74-106) H 10/16/24 07:07 10/16/24 TSH 1.87 uIU/mL (0.358-3.74) 11/01/21 05:04 11/01/21 COAG PT 16.7 SECONDS (11.7-14.9) H 10/16/24 02:30 10/16/24 INR 6.3 H* 05/13/24 15:23 05/13/24 Pre-Assessment Diagnosis/Proposed Procedure Planned Operative Procedure(s): I&D left thigh abscess, Wound Vac Placement Anesthesia History Anesthesia History - lab animal technologist: Anesthesia History - lab animal technologist Hx Hospitalization Yes: [facility]/ 09/27/24 10:05 PANCREATITIS Any Problems With Anesthesia No 09/27/24 10:05 Cholinesterase deficiency No 09/27/24 10:05 You/Your Family Experience No 09/27/24 10:05 fever (hyperthermia) with Relationship Recent Exposure to Contagious No 07/11/24 10:57 Disease Does patient have nerve No 09/27/24 10:05 stimulator Patient instructed to have device shut off --Does patient have Pacemaker or ICD? When Was Last Pacemaker Check QUESTION #4 FULL TEXT: You/Your Family Experience fever (hyperthermia) with Anesthesia Last Oral Intake Last Oral intake: Last Oral Intake NPO since Meds taken in AM with sips of water? Meds patient instructed to take am of surgery PONV PONV - lab animal technologist: PONV - lab animal technologist Female HX of Motion Sickness HX of N/V After Surgery Non-Smoker Duration of Surgery greater than 60 minutes Number of Risk Factors PONV Score Height & Weight Height & Weight: Anesthesia: Height & Weight Height 5 ft 9 in 10/15/24 12:39 Weight: 132 kg 10/16/24 05:03 Body Mass Index (BMI) 43.0 10/16/24 05:03 Respiratory Assessment Respiratory Assessment - lab animal technologist: Respiratory Tract Infection Hx - lab animal technologist Hx Respiratory Tract Infection Yes: Patient has a chronic 09/27/24 10:05 cough STOP Sleep Apnea STOP Sleep Apnea - lab animal technologist: STOP Sleep Apnea - lab animal technologist Hx Hypertension Yes 10/13/24 13:10 Hx Sleep Apnea Yes 10/09/24 21:53 CPAP Yes: HS 10/09/24 21:53 BIPAP No 10/09/24 21:53 Do you snore loudly (louder than talking or can be heard Do you often feel tired/ fatigued/ sleepy during daytime? Has anyone observed you stop breathing during sleep? STOP Results Positive 10/11/24 16:50 QUESTION #5 FULL TEXT : Do you snore loudly (louder than talking or can be heard through closed doors)? 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 confused, unrespo /Reproduction History /Reproductive History - lab animal technologist: /Reproductive Hx- lab animal technologist Hx Now Gestational Age (in weeks): EDC: Hx Hx Para Hx Section SAB Active Medications Active Medications: Current Medications Generic Name Dose Route Start Last Admin Trade Name Freq PRN Reason Stop Dose Admin Acetaminophen 650 mg 10/09/24 22:15 10/15/24 17:57 Acetaminophen 325 Mg Tablet PO 650 mg Q4H PRN PRN Administration Fever, pain 1-05/16 Al Hydroxide/Mg Hydroxide 30 ml 10/09/24 22:15 Mag Hydrox/Al Hydrox/Simeth 30 Ml Udc PO Q6H PRN PRN Gastric Burning Albuterol/Ipratropium 3 ml 10/12/24 11:00 10/15/24 20:25 Ipratropium/Albuterol Sulfate 3 Ml Ampul.Neb INHALATION 3 ml Q4HWA.RT SASHA Administration Atorvastatin Calcium 40 mg 10/09/24 22:15 10/15/24 22:23 Atorvastatin Calcium 40 Mg Tablet PO 40 mg QHS SASHA Administration Dicyclomine HCl 20 mg 10/09/24 22:38 10/16/24 05:13 Dicyclomine 10 Mg Capsule PO Not Given TID SASHA Flecainide Acetate 50 mg 10/09/24 22:45 10/15/24 22:30 Flecainide 100 Mg Tablet PO 50 mg Q12 SASHA Administration Furosemide 60 mg 10/12/24 18:00 10/15/24 17:56 Furosemide 40 Mg/4 Ml Vial IV 60 mg BID@1000,1800 SASHA Administration Glucagon 1 mg 10/09/24 22:15 Glucagon 1 Mg/Ml Syringe IM X1 PRN HYPOGLYCEMIA Protocol Guaifenesin 2 tablet 10/10/24 16:15 10/15/24 22:28 Guaifenesin/D-Methorphan Tab.Sr.12h PO 2 tablet BID SASHA Administration Hydralazine HCl 10 mg 10/09/24 22:15 Hydralazine 20 Mg/Ml Vial IV Q4H PRN PRN SBP > 160 Protocol Dextrose 250 mls @ 0 mls/hr 10/09/24 22:15 Dextrose 10%-Water IV .Q0M PRN HYPOGLYCEMIA Protocol As Directed Ceftriaxone Sodium 1 gm in 50 mls @ 100 mls/hr 10/10/24 02:25 10/15/24 23:15 Rocephin IV Infused QHS SASHA Infusion Metronidazole 500 mg in 100 mls @ 100 mls/hr 10/11/24 09:45 10/16/24 07:55 Flagyl IV Infused Q8 SASHA Infusion Vancomycin IV-PHARMACY TO DOSE 500 mls @ 250 mls/hr 10/11/24 11:10 1 each/ Sodium Chloride IV X1 PRN Rx to Dose Protocol Sodium Chloride 1,000 mls @ 15 mls/hr 10/11/24 15:10 10/15/24 17:13 IV 10/17/24 04:29 15 mls/hr .Q48H SASHA Administration Protocol Vancomycin HCl 1,000 mg in 200 mls @ 200 mls/hr 10/14/24 15:00 10/16/24 04:40 Vancomycin IV Infused Q12H SASHA Infusion Insulin Glargine 15 unit 10/14/24 10:00 10/15/24 10:15 Insulin Glargine-Yfgn 100 Unit/Ml Pen SC 15 unit DAILY SASHA Administration Insulin Glargine 8 unit 10/13/24 17:00 10/15/24 16:43 Insulin Glargine-Yfgn 100 Unit/Ml Pen SC 8 unit DINNER SASHA Administration Insulin Human Lispro 0 unit 10/09/24 22:15 10/16/24 07:56 Insulin Lispro 100 Unit/Ml Insuln.Pen SC Not Given ACHS [facility] Protocol Insulin Human Lispro 10 unit 10/12/24 16:00 10/16/24 07:58 Insulin Lispro 100 Unit/Ml Insuln.Pen SC Not Given TIDAC [facility] Melatonin 3 mg 10/09/24 22:15 10/10/24 22:59 Melatonin 3 Mg Tablet PO 3 mg QHS PRN PRN Administration INSOMNIA Metoprolol Tartrate 100 mg 10/09/24 22:15 10/15/24 22:24 Metoprolol Tartrate 100 Mg Tablet PO 100 mg BID SASHA Administration Protocol Potassium Chloride 20 meq 10/10/24 10:00 10/15/24 10:15 Potassium Chloride Oral Tablet 20 Meq PO 20 meq DAILY SASHA Administration Prazosin HCl 2 mg 10/09/24 22:45 10/15/24 22:29 Prazosin Hcl 1 Mg Capsule PO 2 mg BID SASHA Administration Prochlorperazine Edisylate 5 mg 10/09/24 22:15 Prochlorperazine 10 Mg/2 Ml Vial IV Q4H PRN PRN Breakthrough Nausea/Vomiting Senna/Docusate Sodium 2 tablet 10/10/24 22:00 10/15/24 22:30 Senna/Docusate Sodium 1 Tablet PO Not Given BID SASHA Sodium Chloride 10 - 40 ml 10/12/24 08:42 10/15/24 17:57 0.9% Saline Lock 10 Ml Syringe IV 10 ml UD PRN Administration SALINE FLUSH Sodium Hypochlorite 0 ml 10/12/24 10:00 10/15/24 22:24 Dakin[employer] [place]iley Half Strength (=0.25%) TOPICAL 1 applic BID [facility] Administration Protocol Vancomycin Protocol 1 lab 10/18/24 00:30 Vancomycin Trough/Random Due [facility] 10/18/24 04:30 DAILY [facility] Warfarin Sodium 2.5 mg 10/10/24 17:00 10/10/24 16:50 Warfarin 2.5 Mg Tablet PO 2.5 mg DAILY@1700 [facility] Administration [facility] Medical History (Updated 10/14/24 @ 09:[address] 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 Ulcerative colitis Colitis Coagulopathy COVID-19 Anxiety Diabetes Former smoker CPAP (continuous positive airway pressure) dependence Sleep apnea Congestive heart failure (CHF) Atrial fibrillation 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, adult long-term current use of 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 Chronic diastolic heart failure Paroxysmal atrial flutter SOB (shortness of breath) Home Medications ?Medication ?Instructions ?Recorded ?Last Taken ?Type potassium chloride 20 mEq 20 meq PO DAILY Low potassium 09/27/15 10/06/24 History tablet,extended release(part/cryst) atorvastatin 40 mg tablet 40 mg PO QHS Cholesterol 08/20/16 10/06/24 History metformin 500 mg tablet 500 mg PO BID Diabetes 05/09/19 10/06/24 History metoprolol tartrate 100 mg tablet 100 mg PO BID Afib 02/17/21 10/06/24 History fexofenadine 180 mg tablet 180 mg PO DAILY PRN PRN Allergic 01/11/22 07/10/24 History Symptoms prazosin 2 mg capsule 2 mg PO BID bp 08/08/22 10/06/24 History vedolizumab 300 mg intravenous 300 mg IV .per order 03/21/23 07/10/24 History solution (Entyvio) empagliflozin 10 mg tablet 10 mg PO DAILY 04/24/23 10/06/24 History (Jardiance) furosemide 20 mg tablet 20 mg PO DAILY Edema 06/20/23 10/06/24 History flecainide 50 mg tablet 50 mg PO Q12H #180 TABLETS 11/16/23 10/06/24 Rx tiotropium 2.5 mcg-olodaterol 2.5 2 puff inhalation DAILY SOB #3 ea 04/22/24 10/06/24 Rx mcg/actuation mist for inhalation (Stiolto Respimat) warfarin 2.5 mg tablet 2.5 mg PO QDAY blood thinner #90 05/20/24 10/06/24 Rx tabs prednisone 20 mg tablet 20 mg PO Q12H PRN COLON SYMPTOMS 09/27/24 10/06/24 History dicyclomine 20 mg tablet 20 mg PO 3XD 10/09/24 10/06/24 History ketoconazole 2 % shampoo 1 applic topical .COMPLEX 10/09/24 Unknown History Allergy/AdvReac Type Severity Reaction Status Date / Time amlodipine Allergy Severe Rash Verified 10/09/24 15:22 Penicillins Allergy Hives Verified 10/09/24 15:22 azithromycin AdvReac Diarrhea Verified 10/09/24 15:22 celecoxib (From Celebrex) AdvReac RECTAL Verified 10/09/24 15:22 BLEEDING Family History Mother Colon cancer Heart disease Father CAD (coronary artery disease) Sister Diabetes Brother Heart disease Diabetes Surgical History History of ERCP History of intraocular lens implant History of knee surgery History of bilateral hip replacements History of radiofrequency ablation procedure for cardiac arrhythmia (~08/11/15) Social History household members: spouse Smoking Status: Former smoker how long ago did patient quit smokin + years alcohol intake: never substance use type: does not use caffeine: Yes Type: coffee Number of servings: 3 Review of Systems (Anesthesia) ROS Narrative System reviewed and no additional complaints, except as documented.
--- NOTE | 2024-10-16 09:54 | PCM.HP.STD ---
HPI - General General Date of Admission: 10/09/24 Chief Complaint: Dyspnea, edema, orthopnea. HPI Narrative OLIVERIO BULL, is a 79 M who presents with left thigh wound. Current Encounter (DATE OF SURGERY H&P UPDATE): I saw and examined the patient this morning in pre-operative holding. We discussed risks and benefits of today's surgery and they would like to proceed. NO CHANGE in health history since last seen and evaluated by plastics yesterday. Ready to proceed with surgery. 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 Ulcerative colitis Colitis Coagulopathy COVID-19 Anxiety Diabetes Former smoker CPAP (continuous positive airway pressure) dependence Sleep apnea Congestive heart failure (CHF) Atrial fibrillation 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, adult [facility] current use of 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 Chronic diastolic heart failure Paroxysmal atrial flutter SOB (shortness of breath) Home Medications ?Medication ?Instructions ?Recorded ?Last Taken ?Type potassium chloride 20 mEq 20 meq PO DAILY Low potassium 09/27/15 10/06/24 History tablet,extended release(part/cryst) atorvastatin 40 mg tablet 40 mg PO QHS Cholesterol 08/20/16 10/06/24 History metformin 500 mg tablet 500 mg PO BID Diabetes 05/09/19 10/06/24 History metoprolol tartrate 100 mg tablet 100 mg PO BID Afib 02/17/21 10/06/24 History fexofenadine 180 mg tablet 180 mg PO DAILY PRN PRN Allergic 01/11/22 07/10/24 History Symptoms prazosin 2 mg capsule 2 mg PO BID bp 08/08/22 10/06/24 History vedolizumab 300 mg intravenous 300 mg IV .per order 03/21/23 07/10/24 History solution (Entyvio) empagliflozin 10 mg tablet 10 mg PO DAILY 04/24/23 10/06/24 History (Jardiance) furosemide 20 mg tablet 20 mg PO DAILY Edema 06/20/23 10/06/24 History flecainide 50 mg tablet 50 mg PO Q12H #180 TABLETS 11/16/23 10/06/24 Rx tiotropium 2.5 mcg-olodaterol 2.5 2 puff inhalation DAILY SOB #3 ea 04/22/24 10/06/24 Rx mcg/actuation mist for inhalation (Stiolto Respimat) warfarin 2.5 mg tablet 2.5 mg PO QDAY blood thinner #90 05/20/24 10/06/24 Rx tabs prednisone 20 mg tablet 20 mg PO Q12H PRN COLON SYMPTOMS 09/27/24 10/06/24 History dicyclomine 20 mg tablet 20 mg PO 3XD 10/09/24 10/06/24 History ketoconazole 2 % shampoo 1 applic topical .COMPLEX 10/09/24 Unknown History Allergy/AdvReac Type Severity Reaction Status Date / Time amlodipine Allergy Severe Rash Verified 10/09/24 15:22 Penicillins Allergy Hives Verified 10/09/24 15:22 azithromycin AdvReac Diarrhea Verified 10/09/24 15:22 celecoxib (From Celebrex) AdvReac RECTAL Verified 10/09/24 15:22 BLEEDING Family History Mother Colon cancer Heart disease Father CAD (coronary artery disease) Sister Diabetes Brother Heart disease Diabetes Surgical History History of ERCP History of intraocular lens implant History of knee surgery History of bilateral hip replacements History of radiofrequency ablation procedure for cardiac arrhythmia (~08/11/15) Social History household members: spouse Smoking Status: Former smoker how long ago did patient quit smokin + years alcohol intake: never substance use type: does not use caffeine: Yes Type: coffee Number of servings: 3 Vital Signs Vital Signs Vital Signs: 10/15/24 10:12 10/15/24 10:16 10/15/24 10:58 Temperature 97.8 F Temperature Source Axillary Pulse Rate 74 74 70 Respiratory Rate 18 20 H Respiratory Effort Respiratory Depth Respiratory Pattern Normal Blood Pressure 108/47 L Blood Pressure Mean 67 Blood Pressure Source Monitor Blood Pressure Position Semi-Fowlers Blood Pressure Location Right Arm Pulse Ox 95 Oxygen Delivery Method Nasal Cannula Oxygen Flow Rate (L/min) 2 Fraction of Inspired Oxygen (FIO2) 10/15/24 14:44 10/15/24 14:56 10/15/24 20:25 Temperature 98.7 F Temperature Source Oral Pulse Rate 56 L 76 Respiratory Rate 20 H 22 H Respiratory Effort Normal Non-Labored Respiratory Depth Normal Respiratory Pattern Normal Tachypnea Blood Pressure 128/41 H Blood Pressure Mean 70 Blood Pressure Source Monitor Blood Pressure Position Semi-Fowlers Blood Pressure Location Right Arm Pulse Ox 95 Oxygen Delivery Method Room Air Nasal Cannula Oxygen Flow Rate (L/min) 2 Fraction of Inspired Oxygen (FIO2) 10/15/24 22:00 10/15/24 22:24 10/16/24 02:00 Temperature 98.2 F Temperature Source Oral Pulse Rate 78 64 Respiratory Rate 20 H Respiratory Effort Normal Respiratory Depth Normal Respiratory Pattern Normal Blood Pressure 121/52 H 116/56 L Blood Pressure Mean 76 Blood Pressure Source Blood Pressure Position Blood Pressure Location Pulse Ox 94 Oxygen Delivery Method Nasal Cannula Nasal Cannula Oxygen Flow Rate (L/min) 2 2 Fraction of Inspired Oxygen (FIO2) 10/16/24 02:50 10/16/24 08:49 10/16/24 09:36 Temperature 98.3 F 98.3 F Temperature Source Oral Pulse Rate 61 61 Respiratory Rate 18 18 Respiratory Effort Normal Respiratory Depth Normal Respiratory Pattern Normal Blood Pressure 121/61 H 121/61 H Blood Pressure Mean 81 Blood Pressure Source Monitor Blood Pressure Position Semi-Fowlers Blood Pressure Location Right Arm Pulse Ox 98 98 Oxygen Delivery Method Nasal Cannula Nasal Cannula Oxygen Flow Rate (L/min) 2 2 2 Fraction of Inspired Oxygen (FIO2) 2 Weight Weight: 291 lb 0.163 oz Body Mass Index (BMI) 43.0 Physical Exam Narrative Left medial thigh wound with dressings in place . no strike through. No surrounding cellulitis Results Lab / Micro Data 10/16/24 02:30 10/16/24 02:30 Labs: Laboratory Results - last 24 hr 10/15/24 10:56: POC Glucose 189 H 10/15/24 16:42: POC Glucose 178 H 10/15/24 22:34: POC Glucose 212 H 10/16/24 02:30: WBC 10.0, RBC 3.64 L, Hgb 11.1 L, Hct 34.5 L, MCV 94.8 H, MCH 30.5, MCHC 32.2, RDW Std Deviation 51.5 H, RDW Coeff of Jadon 14.7 H, Plt Count 240, MPV 9.7, Immature Gran % (Auto) 2.100 H, Neut % (Auto) 66.7, Lymph % (Auto) 23.4, [place] % (Auto) 5.9, Eos % (Auto) 1.4, Baso % (Auto) 0.5, Absolute Neuts (auto) 6.7, Absolute Lymphs (auto) 2.34, Nucleated RBC % 0, PT 16.7 H, INR 1.3, Sodium 136, Potassium 3.4, Chloride 102, Carbon Dioxide 22.3, Anion Gap 12, BUN 21 H, Creatinine 1.30 H, Estim Creat Clear Calc 63.05, Est GFR (MDRD) Non-Af 56 L, BUN/Creatinine Ratio 16.0, Glucose 157 H, Calcium 7.4 L, Vancomycin Trough 18.9 H 10/16/24 07:07: POC Glucose 186 H Micro: Microbiology 10/11/24 Unknown Tissue - Leg, Left Gram Stain - Final 10/11/24 Unknown Tissue - Leg, Left Wound Culture - Final Staphylococcus epidermidis#2 Granulicatella adiacens Staphylococcus epidermidis Actinotignum schaalii 10/11/24 Unknown Tissue - Leg, Left Anaerobic Culture - Final No anaerobic bacteria isolated. 10/11/24 Unknown Tissue - Leg, Left Gram Stain - Final 10/11/24 Unknown Tissue - Leg, Left Wound Culture - Final Staphylococcus epidermidis Granulicatella adiacens Actinotignum schaalii 10/10/24 03:00 Blood Culture (Wb) - Left Hand Blood Culture - Final No growth in 5 days. Imaging Radiology Impression Chest X-Ray 10/15/24 14:35 IMPRESSION: Status post left-sided PICC line placement with distal tip at the proximal SVC. Reading Location: [facility] Chest X-Ray 10/15/24 15:55 IMPRESSION: 1. Redemonstrated left upper extremity PICC with tip projecting over the mid SVC. 2. Additional description as above. Reading Location: [id number] Brain CT 10/16/24 06:16 IMPRESSION: No acute intracranial hemorrhage, mass effect or midline shift. Reading Location: [id number] Cervical Spine CT 10/16/24 06:16 IMPRESSION: No acute fracture or dislocation is seen within the cervical spine. One or more dose reduction techniques were used (e.g., Automated exposure control, adjustment of the mA and/or kV according to patient size, use of iterative reconstruction technique). Reading Location: [id number] Assessment & Plan Assessment/Plan (1) Abscess of left thigh: (2) CHF (congestive heart failure): (3) Type 2 diabetes mellitus: PLAN: Plan I talked the patient extensively about the risks of surgery, including bleeding, infection, damage to surrounding structures, surgical site dehiscence and wound formation, need for wound care, need for repeat operations, failure to obtain the desired result, DVT/PE, and the risks of anesthesia including , including stroke (from low blood pressure/ischemia or clot). We will mitigate the risks by doing MAC/local. The benefits and alternatives of this surgery were also discussed. All of their questions were answered, and they agreed to proceed with surgery. INTERVAL H&P PLAN, DATE OF SURGERY: We will proceed with surgery today.
[2024-10-16] MEDS: Bupiv/Epi 0.25% 30 ML Vial (10:19)
[2024-10-16] MEDS: Lidocaine 1% /Epi 1:100 (20ml) 20 ML Vial (10:19)
--- NOTE | 2024-10-16 11:03 | PCM.POST.ANE ---
Anesthesia: Postop Eval I Current Vital Signs Temperature: 97.4 F Pulse Rate: 63 Blood Pressure: 119/53 Respiratory Rate: 16 Pulse Ox: 98 Oxygen Delivery Method: Nasal Cannula Oxygen Flow Rate (L/min): 2 Assessment Airway patent: Yes Spontaneous unlabored respirations: Yes Mental status: Awake and Calm nausea: No Vomiting: No Anesthesia Complication: No Fluid Hydration Crystalloid volume administer (ml): 150 Total IV fluid infused: 150 Progress Note Anesthesia document: Postop Eval 1 completed: Yes
--- NOTE | 2024-10-16 11:28 | CASEMGMT ---
SW stopped by patient's room. Patient was not in the room, but there were two ladies in the room. They identified themselves as patient's and sister in law. SW mentioned d/c planning and that patient may need to go somewhere short term for rehab. SW explained patient will have wound care, he will need PT/OT, and he was confused last night. Patient's sister in law kept signaling to SW to talk to patient's . Patient's sister in law asked if patient could stay at [facility] for rehab and she also asked about home health. SW said those would be options if he is a little stronger. SW told them SW will check back with patient once he is back in his room. Sallie GUPTA
--- NOTE | 2024-10-16 11:36 | PCM.OPRPT ---
Operative Report (Standard) Operative Information Date of Procedure: 10/16/24 Pre-Operative Diagnosis: Left thigh wound Post-Operative Diagnosis: Same Surgery/Procedure Performed: 1) Excision left thigh wound (12x12 cm) in preparation for VAC placement (CPT: 85498,35144) 2) Wound Vac placement, not disposable, irrigating, >50 cm squared cm (CPT: 17921) newspaper manager: No Type of Anesthesia: Local MAC (20 cc of 50/50 mixture of 1% lidocaine with 1:200,000 epinephrine and 0.25% Marcaine with 1:200,000 epinephrine ) RN Documented Start/Stop Times: Operation Date: 10/16/24 10:10 Case Time Into Pre-Op 10/16/24 09:11 Out of Pre-Op 10/16/24 10:02 Anesthesia Start 10/16/24 10:04 Into Room 10/16/24 10:04 Procedure Start 10/16/24 10:19 Procedure End 10/16/24 10:44 Anesthesia End 10/16/24 10:54 Out of Room 10/16/24 10:54 Into Recovery 10/16/24 11:00 Out of Recovery 10/16/24 11:36 Procedure Start Time: 10:19 Procedure Stop Time: 10:44 Select all DRAINS/GRAFTS/IMPLANTS that apply: None (Just the VAC) Estimated Blood Loss: 25 cc Specimen collected: No Description of surgery: Indications: Patient is a 71-year-old male status post I&D for left groin abscess now with a large wound. Presents today for excision of the wound bed with VAC placement. There is significant necrotic tissue at the base of the wound requiring debridement. He understands the risks, benefits, and alternatives to today's procedure, and elected to proceed with surgery. Procedure details: Patient was correct identified in preoperative holding and taken by the operating room where he was administered sedation anesthesia and local as noted above. He was prepped and draped in sterile fashion and all proper timeouts were performed. We began the procedure by excising the base of the wound and all the necrotic dermis fat and fascia back to healthy bleeding tissue. This was done with sharp excision using a curved Monaco scissor, a rongeur, and a rasp. The wound was then irrigated with 3 L normal saline. This was a total preparation of the wound bed of 12 x 12 cm. 4 and 50 cc of Irrisept was then used as well as more copious amounts of normal saline. Hemostasis obtained with Bovie electrocautery. All counts were correct. A wound VAC was then placed for irrigation (greater than 50 cm? irrigating nondisposable). It was holding suction at the end of the case. Postoperative plan: Irrigating wound VAC x 2 days followed by transition to normal wound VAC changes 3 times per week with follow-up outpatient in the wound care center. Surgical Findings: Necrotic degree at the base of the wound which was removed No remaining fluid collections or tracking of fluid/abscess Complications Complications: No
--- NOTE | 2024-10-16 12:08 | RAD_ITS ---
PROCEDURE: HIP MIN 2 VIEWS (PORTABLE) REASON FOR EXAM: FALL TECHNIQUE: Three views were obtained. COMPARISON: None. FINDINGS: The patient is status post bilateral hip replacement. There is good alignment. No acute abnormality is seen. There is evidence of degenerative changes of both sacroiliac joints. RAD/Hip Min 2 Views (Portable) IMPRESSION: Status post bilateral hip replacement. Degenerative changes of both sacroiliac joints. Reading Location: [place] [address]
[2024-10-16] MEDS: Metoprolol Tartrate 100 MG Tablet PO ×2 (12:21→23:16)
[2024-10-16] MEDS: guaiFENesin/D-Methorphan TAB.SR.12H 2 TABLET PO ×2 (12:22→23:07)
[2024-10-16] MEDS: Senna/Docusate Sodium 1 Tablet 2 TABLET PO ×2 (12:22→23:07)
[2024-10-16] MEDS: Potassium Chloride Oral Tablet 20 MEQ PO (12:22)
[2024-10-16] MEDS: Prazosin HCl 1 MG Capsule 2 MG PO ×2 (12:22→23:16)
[2024-10-16] MEDS: Insulin Glargine-YFGN 100 UNIT/ML Pen 15 UNIT SC (12:23)
[2024-10-16] MEDS: Furosemide 40 MG/4 ML Vial 60 MG IV ×2 (12:23→17:52)
[2024-10-16] MEDS: Insulin Lispro 100 UNIT/ML INSULN.PEN SC ×3 (12:31→23:11)
[2024-10-16] MEDS: Insulin Lispro 100 UNIT/ML INSULN.PEN 10 UNIT SC ×2 (12:32→16:21)
[2024-10-16] MEDS: Flecainide 100 MG Tablet 50 MG PO ×2 (12:40→23:08)
[2024-10-16 12:55] LABS: Bedside Glucose 183 mg/dL (74-106)
--- NOTE | 2024-10-16 13:10 | POSTOPAN2_ITS ---
Anesthesia Postop Eval I Sum Postop Eval Completion status Anesthesia document: Postop Eval 1 completed: Yes Anesthesia Postop Eval I Summary Anesthesia Postop Eval I Summary: Anesthesia Postop Eval I: Assessment Summary Airway patent Yes 10/16/24 11:04 WIND TURBINE DESIGN [email or web address] Spontaneous unlabored Yes 10/16/24 11:04 WIND TURBINE DESIGN ENGINEER.[email or web address] respirations Mental status Awake,Calm 10/16/24 11:04 WIND TURBINE DESIGN ENGINEER.[email or web address] nausea No 10/16/24 11:04 WIND TURBINE DESIGN ENGINEER.[email or web address] Vomiting No 10/16/24 11:04 WIND TURBINE DESIGN ENGINEER.[email or web address] Anesthesia Postop Eval I: Fluid Summary Crystalloid volume administer 150 10/16/24 11:04 WIND TURBINE DESIGN ENGINEER.[email or web address] (ml) Colloids volume administered ( ml) Blood Product volume administered (ml) Total IV fluid infused 150 10/16/24 11:04 WIND TURBINE DESIGN ENGINEER.[email or web address] Anesthesia Postop Eval I: Summary Notes Anesthesia Complication No 10/16/24 11:04 WIND TURBINE DESIGN ENGINEER.[email or web address] Anesthesia Complication Comment: Post-operative progress note Anesthesia: Postop Eval II Evaluation Mental status: Awake Pain Level: 0 nausea: No Vomiting: No
--- NOTE | 2024-10-16 13:10 | PCM.POSTANE2 ---
Anesthesia Postop Eval I Sum Postop Eval Completion status Anesthesia document: Postop Eval 1 completed: Yes Anesthesia Postop Eval I Summary Anesthesia Postop Eval I Summary: Anesthesia Postop Eval I: Assessment Summary Airway patent Yes 10/16/24 11:04 SUPERVISOR TELEVISION CHASSIS [email or web address] Spontaneous unlabored Yes 10/16/24 11:04 SUPERVISOR TELEVISION CHASSIS REPAIR.[email or web address] respirations Mental status Awake,Calm 10/16/24 11:04 SUPERVISOR TELEVISION CHASSIS REPAIR.[email or web address] nausea No 10/16/24 11:04 SUPERVISOR TELEVISION CHASSIS REPAIR.[email or web address] Vomiting No 10/16/24 11:04 SUPERVISOR TELEVISION CHASSIS [email or web address] Anesthesia Postop Eval I: Fluid Summary Crystalloid volume administer 150 10/16/24 11:04 SUPERVISOR TELEVISION CHASSIS REPAIR.[email or web address] (ml) Colloids volume administered ( ml) Blood Product volume administered (ml) Total IV fluid infused 150 10/16/24 11:04 SUPERVISOR TELEVISION CHASSIS [email or web address] Anesthesia Postop Eval I: Summary Notes Anesthesia Complication No 10/16/24 11:04 SUPERVISOR TELEVISION CHASSIS REPAIR.[email or web address] Anesthesia Complication Comment: Post-operative progress note Anesthesia: Postop Eval II Evaluation Mental status: Awake Pain Level: 0 nausea: No Vomiting: No
--- NOTE | 2024-10-16 13:10 | ANES.CONFIRM ---
Anesthesia: Confirm Documents Multiple Procedures on Account (2) Confirmed Documents: Yes
--- NOTE | 2024-10-16 13:11 | PCM.PN.ID ---
Physical Exam Narrative Feeling better, now s/p OR today, no fever, no n/v/d. Const alert and no apparent distress Resp normal air movement and clear to auscultation bilaterally Cardio regular rate and regular rhythm GI soft to palpation, non-tender and non-distended Skin Skin Narrative: dressing in place ID ID: Route of nutrition/ use of supplements: [] Nutritional Intake: [] IV Site: [] Georges Catheter: [] Assessment & Plan Assessment/Plan (1) CHF (congestive heart failure): (2) Cellulitis: PLAN: With necrotic L groin abscess. On vanc, ceftriaxone, flagyl. Taken to OR 10/11/[address] Johnson and Dr. Aguero, surg cx with staph epi, granulicatella, anaerobe, and actinotignum. Now s/p OR again today. Tentative plan for po doxy 100mg bid, cefdinir 300mg bid, and flagyl 500mg tid for one week at discharge. Will follow
--- NOTE | 2024-10-16 13:31 | WOUNDNOTE ---
home VAC paperwork initiated. pt currently with irrigating wound VAC. plan is to change to regular VAC with dressing change Monday. will continue to follow. pt to follow up at the wound healing center at discharge.
[2024-10-16] MEDS: Lactobacillis Acidophilus 1 CAP PO ×2 (15:03→23:09)
[2024-10-16] MEDS: Dicyclomine 10 MG Capsule 20 MG PO ×2 (15:03→23:09)
[2024-10-16 17:07] LABS: Bedside Glucose 218 mg/dL (74-106)
[2024-10-16] MEDS: Insulin Glargine-YFGN 100 UNIT/ML Pen 8 UNIT SC (17:51)
[2024-10-16] MEDS: Ceftriaxone 1 GM/50 ML BAG IV (21:54)
[2024-10-16] MEDS: Atorvastatin Calcium 40 MG Tablet PO (23:17)
[2024-10-16 23:51] LABS: Bedside Glucose 176 mg/dL (74-106)
[2024-10-17] VITALS (15 sets, daily range): BP systolic 93–135; BP diastolic 44–54; PULSE 45–78; RESP 15–20; TEMP 36.4–36.9; O2SAT 90–97; BMI 42.6
[2024-10-17] MEDS: MELATONIN 3 MG TABLET PO ×2 (01:45→21:57)
[2024-10-17] MEDS: Acetaminophen 325 MG Tablet 650 MG PO ×2 (01:46→21:57)
[2024-10-17] MEDS: Vancomycin IV 1,000 MG/200 ML BAG 200 MG IV ×2 (02:11→16:03)
[2024-10-17 05:19] LABS: Absolute Lymphocyte Count 2.69 X10^3/uL (0.83-4.51); Basophil# 0.05 X10^3/uL; Basophil% 0.5 % (0-1); Eosinophil# 0.18 X10^3/uL; Eosinophils% 1.7 % (0-5); Hematocrit 34.8 % (40-54); Lymphocyte # 2.69 X10^3/ul (0.83-4.51); Lymphocyte % 24.9 % (19-41); Mean Corp Hgb Conc 31.6 g/dL (32-36); Mean Corpuscular Hgb 30.5 pg (27.0-32.0); Mean Corpuscular Volume 96.4 fL (80-94); Mean Platelet Vol. 9.8 fl (6.2-12.0); Monocyte# 0.67 X10^3/uL; Monocyte% 6.2 % (0-10); NRBC Flagged by Analyzer 0 % (0-5); Neutrophil # 6.95 X10^3/uL (2.7-7.7); Neutrophil % 64.1 % (47-70); Platelet Count 259 K/mm3 (150-450); RBC Distribution Width CV 14.8 % (11.6-14.6); RBC Distribution Width SD 52.5 fl (35.1-43.9); Red Blood Count 3.61 M/mm3 (4.6-6.2); White Blood Count 10.8 K/mm3 (4.4-11.0)
[2024-10-17] MEDS: metroNIDAZOLE 500 MG/100 ML BAG 100 MG IV ×3 (05:23→21:54)
[2024-10-17] MEDS: Lactobacillis Acidophilus 1 CAP PO ×2 (05:26→21:41)
[2024-10-17] MEDS: Dicyclomine 10 MG Capsule 20 MG PO ×3 (05:26→21:44)
[2024-10-17 06:13] LABS: Anion Gap 13 (5-15); BUN 19 mg/dL (4-19); Calcium,Total 7.4 mg/dL (7.6-11.0); Carbon Dioxide 21.4 mmol/L (21.0-32.0); Chloride 101 mmol/L (98-108); Creatinine, Serum 1.33 mg/dL (0.70-1.20); EST Glomerular Filtration Rate 55 (>60); Estimated Creatinine Clearance 61.39 ml/min (50-250); Glucose 210 mg/dL (70-99); Potassium 3.2 mmol/L (3.3-5.1); Sodium Level 135 mmol/L (133-145)
[2024-10-17] MEDS: Ipratropium/Albuterol Sulfate 3 ML AMPUL.NEB INHALATION ×4 (06:55→19:59)
--- NOTE | 2024-10-17 07:23 | PN.HOSP_ITS ---
Reason for Visit Reason for Visit: Diagnoses Type 2 diabetes mellitus without complications (10/09/24) Heart failure, unspecified (10/09/24) Cutaneous abscess of left lower limb (10/09/24) Cellulitis, unspecified (10/09/24) Subjective Subjective Feeling ok. Objective Data Objective Data Vital Signs: Vital Signs Temp Pulse Resp BP Pulse Ox O2 Del Method O2 Flow Rate 36.7 C 65 18 104/50 L 97 Nasal Cannula 2 10/17/24 01:44 10/17/24 01:44 10/17/24 01:44 10/17/24 01:44 10/17/24 01:44 10/17/24 01:44 10/17/24 01:44 FiO2 2 10/16/24 09:36 Oxygen Flow Rate (L/min) 2 Oxygen Delivery Method Nasal Cannula Weight: 131 kg Body Mass Index (BMI) 42.6 Intake & Output: Intake and Output for Last 24 Hours 10/15/24 10/16/24 10/17/24 23:59 23:59 23:59 Intake Total 750 / 1190 2864 / 2864 300 / 300 Output Total 750 / 1600 1945 / 2345 800 / 800 Balance 0 / -410 919 / 519 -500 / -500 Lab / Micro Data 10/17/24 03:55 10/17/24 03:55 Labs: Laboratory Results - last 24 hr 10/16/24 07:07: POC Glucose 186 H 10/16/24 12:16: POC Glucose 183 H 10/16/24 16:21: POC Glucose 218 H 10/16/24 22:51: POC Glucose 176 H 10/17/24 03:55: WBC 10.8, RBC 3.61 L, Hgb 11.0 L, Hct 34.8 L, MCV 96.4 H, MCH 30.5, MCHC 31.6 L, RDW Std Deviation 52.5 H, RDW Coeff of Jadon 14.8 H, Plt Count 259, MPV 9.8, Immature Gran % (Auto) 2.600 H, Neut % (Auto) 64.1, Lymph % (Auto) 24.9, Alpine % (Auto) 6.2, Eos % (Auto) 1.7, Baso % (Auto) 0.5, Absolute Neuts (auto) 7.0, Absolute Lymphs (auto) 2.69, Nucleated RBC % 0, Sodium 135, P otassium 3.2 L, Chloride 101, Carbon Dioxide 21.4, Anion Gap 13, BUN 19, C reatinine 1.33 H, Estim Creat Clear Calc 61.39, Est GFR (MDRD) Non-Af 55 L, BUN/Creatinine Ratio 14.0, Glucose 210 H, Calcium 7.4 L Micro: Microbiology 10/11/24 Unknown Tissue - Leg, Left Gram Stain - Final 10/11/24 Unknown Tissue - Leg, Left Wound Culture - Final Staphylococcus epidermidis Granulicatella adiacens Actinotignum schaalii 10/11/24 Unknown Tissue - Leg, Left Anaerobic Culture - Final Anaerobic cocci 10/11/24 Unknown Tissue - Leg, Left Gram Stain - Final 10/11/24 Unknown Tissue - Leg, Left Wound Culture - Final Staphylococcus epidermidis#2 Granulicatella adiacens Staphylococcus epidermidis Actinotignum schaalii 10/11/24 Unknown Tissue - Leg, Left Anaerobic Culture - Final No anaerobic bacteria isolated. 10/10/24 03:00 Blood Culture (Wb) - Left Hand Blood Culture - Final No growth in 5 days. 10/10/24 01:30 Mucosa - Nasopharyngeal Respiratory Panel (PCR) - Final 10/09/24 15:30 Mucosa - Nose SARS-CoV-2, Influenza & RSV (PCR) - Final Radiography Diagnostic Testing: Radiology Impression Hip X-Ray 10/16/24 12:08 IMPRESSION: Status post bilateral hip replacement. Degenerative changes of both sacroiliac joints. Reading Location: [place] [address] Physical Exam Const alert and no apparent distress HEENT head/scalp atraumatic and moist oral mucous membranes Resp normal respiratory effort, no retractions, no use of accessory muscles and clear to auscultation bilaterally Cardio regular rate, regular rhythm, S1 normal heart sound and S2 normal heart sound GI normal to inspection, nondistended, normoactive bowel sounds, soft to palpation, non-tender and non-distended Extremity normal to inspection General Extremity: edema bilateral lower extremity Details: moderate Assessment & Plan Assessment/Plan (1) Abscess of left thigh: PLAN: Necrotizing soft tissue infection of left thigh. Pt underwent I+D with debridement of left thigh abscess with Drs. Johnson and More on 10/11. Patient underwent further excision of left thigh wound and wound VAC placement on October 16. Plan is to rechange the wound VAC on the Cultures from the showed Staph epidermidis, Granulicatella, Actinotignum On vanc, metronidazole and CTX. ID following: Plan is for discharge is 1 week of Doxy 100 twice daily, cefdinir 300 twice daily and metronidazole 500 3 times daily. (2) CHF (congestive heart failure): PLAN: acute HFpEF echo 10/10 shows an EF 65%. Mild LVH. on furosemide 60 IV bid (3) Type 2 diabetes mellitus: PLAN: a1c 8.5 only takes metformin at home. now on glargine and SSI. Glargine just increased from 12 to 15 in AM and 8 QHS. Hold off on further changes at this time and observe. PLAN: Plan Chronic conditions: * pafib/flutter: resume warfarin, no bridge. Continue flecainide and metoprolol. * COPD: BDs * HTN * obesity class III: complicates care and recovery. VTE prophylaxis: LMWH. Charges/Coding Visit Charges Inpatient E&M: 62057 Subs Hosp L2
[2024-10-17] MEDS: Insulin Lispro 100 UNIT/ML INSULN.PEN SC ×3 (08:25→17:01)
[2024-10-17] MEDS: Insulin Lispro 100 UNIT/ML INSULN.PEN 10 UNIT SC ×3 (08:25→17:02)
[2024-10-17] MEDS: Insulin Glargine-YFGN 100 UNIT/ML Pen 15 UNIT SC (08:25)
[2024-10-17] MEDS: Potassium Chloride Oral Tablet 20 MEQ 40 MEQ PO ×2 (08:26→16:09)
[2024-10-17] MEDS: guaiFENesin/D-Methorphan TAB.SR.12H 2 TABLET PO ×2 (08:26→21:41)
[2024-10-17] MEDS: Flecainide 100 MG Tablet 50 MG PO ×2 (08:26→21:49)
[2024-10-17] MEDS: Prazosin HCl 1 MG Capsule 2 MG PO ×2 (08:26→21:43)
[2024-10-17] MEDS: Senna/Docusate Sodium 1 Tablet 2 TABLET PO ×2 (08:26→21:42)
[2024-10-17] MEDS: Metoprolol Tartrate 100 MG Tablet PO (08:26)
--- NOTE | 2024-10-17 08:40 | PN.SURG_ITS ---
Subjective Subjective Doing well overall. Pain controlled. X-ray of the hips was negative (x-rays for fall and subsequent dull hip pain) Objective Data Objective Data Vital Signs: Vital Signs Temp Pulse Resp BP Pulse Ox O2 Del Method O2 Flow Rate 98.4 F 66 18 119/51 L 93 Nasal Cannula 2 10/17/24 08:20 10/17/24 08:26 10/17/24 08:20 10/17/24 08:20 10/17/24 08:20 10/17/24 08:35 10/17/24 08:35 FiO2 2 10/16/24 09:36 Oxygen Flow Rate (L/min) 2 Oxygen Delivery Method Nasal Cannula Weight: 288 lb 12.889 oz Body Mass Index (BMI) 42.6 Intake & Output: Intake and Output for Last 24 Hours 10/15/24 10/16/24 10/17/24 23:59 23:59 23:59 Intake Total 750 / 1190 2864 / 2864 300 / 300 Output Total 750 / 1600 1945 / 2345 800 / 800 Balance 0 / -410 919 / 519 -500 / -500 Lab / Micro Data 10/17/24 03:55 10/17/24 03:55 Labs: Laboratory Results - last 24 hr 10/16/24 12:16: POC Glucose 183 H 10/16/24 16:21: POC Glucose 218 H 10/16/24 22:51: POC Glucose 176 H 10/17/24 03:55: WBC 10.8, RBC 3.61 L, Hgb 11.0 L, Hct 34.8 L, MCV 96.4 H, MCH 30.5, MCHC 31.6 L, RDW Std Deviation 52.5 H, RDW Coeff of Jadon 14.8 H, Plt Count 259, MPV 9.8, Immature Gran % (Auto) 2.600 H, Neut % (Auto) 64.1, Lymph % (Auto) 24.9, Stone % (Auto) 6.2, Eos % (Auto) 1.7, Baso % (Auto) 0.5, Absolute Neuts (auto) 7.0, Absolute Lymphs (auto) 2.69, Nucleated RBC % 0, Sodium 135, P otassium 3.2 L, Chloride 101, Carbon Dioxide 21.4, Anion Gap 13, BUN 19, C reatinine 1.33 H, Estim Creat Clear Calc 61.39, Est GFR (MDRD) Non-Af 55 L, BUN/Creatinine Ratio 14.0, Glucose 210 H, Calcium 7.4 L Micro: Microbiology 10/11/24 Unknown Tissue - Leg, Left Gram Stain - Final 10/11/24 Unknown Tissue - Leg, Left Wound Culture - Final Staphylococcus epidermidis Granulicatella adiacens Actinotignum schaalii 10/11/24 Unknown Tissue - Leg, Left Anaerobic Culture - Final Anaerobic cocci 10/11/24 Unknown Tissue - Leg, Left Gram Stain - Final 10/11/24 Unknown Tissue - Leg, Left Wound Culture - Final Staphylococcus epidermidis#2 Granulicatella adiacens Staphylococcus epidermidis Actinotignum schaalii 10/11/24 Unknown Tissue - Leg, Left Anaerobic Culture - Final No anaerobic bacteria isolated. 10/10/24 03:00 Blood Culture (Wb) - Left Hand Blood Culture - Final No growth in 5 days. 10/10/24 01:30 Mucosa - Nasopharyngeal Respiratory Panel (PCR) - Final 10/09/24 15:30 Mucosa - Nose SARS-CoV-2, Influenza & RSV (PCR) - Final Radiography Diagnostic Testing: Radiology Impression Hip X-Ray 10/16/24 12:08 IMPRESSION: Status post bilateral hip replacement. Degenerative changes of both sacroiliac joints. Reading Location: [facility]- Physical Exam Narrative No lower extremity swelling/calf swelling Left groin/thigh with wound VAC in place holding suction. No surrounding induration or erythema Wound VAC with serosanguineous fluid Assessment & Plan Assessment/Plan (1) Open thigh wound: QUALIFIERS: Encounter type: subsequent encounter Laterality: left Qualified Code(s): S71.102D - Unspecified open wound, left thigh, subsequent encounter PLAN: Plan Plan for transition to regular wound VAC tomorrow, 18 October 2024. Anticipate 3 times per week VAC changes with outpatient follow-up at the wound care center (we will schedule for Monday, 21 October 2024) After wound VAC change tomorrow okay for discharge from plastic surgery standpoint. Charges/Coding Procedures Integumentary [id number]: [id number] Global Visit
[2024-10-17 08:59] LABS: Bedside Glucose 181 mg/dL (74-106)
[2024-10-17] MEDS: Furosemide 40 MG/4 ML Vial 60 MG IV ×2 (12:17→17:43)
[2024-10-17] MEDS: 0.9% Saline Lock 10 ML Syringe IV ×2 (12:18→17:44)
--- NOTE | 2024-10-17 12:22 | WOUNDNOTE ---
Home wound VAC approved if pt decided to go home at discharge.
--- NOTE | 2024-10-17 12:45 | CASEMGMT ---
Discharge Planning A list of HH providers including quality and resource use data and consistent with the patient's preferred geographic region, medical needs, and insurance network was created in [facility] Guide.? This list was provided to the pt. Doris Sparks, Discharge Planning Asst.
[2024-10-17 12:53] LABS: Bedside Glucose 325 mg/dL (74-106)
--- NOTE | 2024-10-17 13:07 | CASEMGMT ---
SW spoke with patient and his nephew. HOLLI introduced self and role at [facility]. SW discussed d/c plan and they are interested in home health. SW let them know someone will bring them a home health list and HOLLI will also notify MYRNA GIRALDO. Plan: home with home health. Family has a schedule set up where they will go to patient's home several times a day and check on patient and his . Sallie Shelby BUSINESS ADMINISTRATION TEACHER CANDY
--- NOTE | 2024-10-17 14:17 | CASEMGMT ---
Addendum entered by Jasmina Cohen 10/17/24 16:39: Call received from [facility], they are able to accept pt w/SOC slated for Monday. DC plan updated. Original Note: MYRNA GIRALDO NOTE: Call placed to Wound Center & spoke w/Radha. Appt scheduled w/Dr Aguero for 10/21 @ 1 PM. This was added to DC plan. MYRNA GIRALDO spoke w/pt's nephew, Alvin. He was made aware of the above stated appt. Discussed [facility] and appts. He was made aware pt to go to weekly and VAC dsg to be changed there. [facility] SN to then change it every Mon & Mon. He is aware family will be responsible to transport pt to for appts. Also made aware [facility] therapy will working w/pt as well. Further questions answered and Alvin voices appreciation. Call placed to [facility] and referral made, as this is Alvin's 1st [facility] preference. Kristel made aware VAC to be placed tomorrow and plan is for pt to dc home tomorrow. She was also made aware pt to go to Wound Center Mondays, then VAC dsg to be changed Wed's & Mon's by [facility]. Awaiting response. Inga POLK RN, CM
--- NOTE | 2024-10-17 14:20 | CASEMGMT ---
Discharge Planning Pt choice is as follows; 1)[facility], 2)[facility], 3)[facility]. RN CM updated. Doris Sparks DC Planning Asst
[2024-10-17] MEDS: metFORMIN HCl 500 MG Tablet PO (16:09)
[2024-10-17] MEDS: Insulin Glargine-YFGN 100 UNIT/ML Pen 8 UNIT SC (17:01)
[2024-10-17 17:28] LABS: Bedside Glucose 180 mg/dL (74-106)
--- NOTE | 2024-10-17 17:35 | PCM.PN.BLA ---
Progress Note Patient seen and evaluated during rounds. Is found resting in bed. His biggest complaint is that he has discomfort around his tailbone. He denies any discomfort from his left thigh. He is postoperative day 1 from repeat debridement and negative pressure wound VAC therapy application with plastic surgery. His thigh is examined and I find no evidence of crepitus or infection extension. His wound VAC is in place with a good seal. I have previously discussed with plastic surgery and they confirm they are prepared to continue wound care for Mr. Oshea as indicated. Therefore, general surgery will now sign off but remain available for any clinical concerns that may arise in the future. Thank you for this consult.
[2024-10-17] MEDS: Atorvastatin Calcium 40 MG Tablet PO (21:41)
[2024-10-17] MEDS: Metoprolol Tartrate 50 MG Tablet PO (21:43)
[2024-10-17] MEDS: Ceftriaxone 1 GM/50 ML BAG IV (21:57)
[2024-10-17 22:12] LABS: Bedside Glucose 147 mg/dL (74-106)
[2024-10-18] VITALS (11 sets, daily range): BP systolic 112–136; BP diastolic 45–51; PULSE 55–74; RESP 16–18; TEMP 36.4–36.6; O2SAT 86–98
[2024-10-18 03:07] LABS: Absolute Lymphocyte Count 2.77 X10^3/uL (0.83-4.51); Absolute Neutrophil Count 7.1 X10^3/uL (2.0-7.7); Basophil# 0.05 X10^3/uL; Basophil% 0.5 % (0-1); Eosinophil# 0.16 X10^3/uL; Eosinophils% 1.5 % (0-5); Hematocrit 33.7 % (40-54); Hemoglobin 10.7 g/dL (13.0-16.5); Lymphocyte # 2.77 X10^3/ul (0.83-4.51); Lymphocyte % 25.6 % (19-41); Mean Corp Hgb Conc 31.8 g/dL (32-36); Mean Corpuscular Hgb 30.5 pg (27.0-32.0); Mean Platelet Vol. 9.8 fl (6.2-12.0); Monocyte# 0.53 X10^3/uL; Monocyte% 4.9 % (0-10); NRBC Flagged by Analyzer 0 % (0-5); Neutrophil # 7.12 X10^3/uL (2.7-7.7); Neutrophil % 65.7 % (47-70); Platelet Count 251 K/mm3 (150-450); RBC Distribution Width CV 14.8 % (11.6-14.6); RBC Distribution Width SD 52.1 fl (35.1-43.9); Red Blood Count 3.51 M/mm3 (4.6-6.2); White Blood Count 10.8 K/mm3 (4.4-11.0)
[2024-10-18 03:17] LABS: International Normalized Ratio 1.3; Prothrombin Time (Protime)PT. 16.5 SECONDS (11.7-14.9)
[2024-10-18 03:40] LABS: Vancomycin, Trough Level 20.5 ug/mL (5.0-15.0)
--- NOTE | 2024-10-18 03:49 | PHA.PHARE_ITS ---
Consult Antibiotic Management Pharmacy has been consulted to manage selected antibiotic: Vancomycin Type of Intervention Type of Consult: Follow-up Suspected Infection Suspected Infection: Skin/Soft tissue Labs Labs: Vancomycin Trough 20.5 ug/mL (5.0-15.0) H 10/18/24 02:45 Microbiology Microbiology: Microbiology 10/11/24 Unknown Tissue - Leg, Left Gram Stain - Final 10/11/24 Unknown Tissue - Leg, Left Wound Culture - Final Staphylococcus epidermidis Granulicatella adiacens Actinotignum schaalii 10/11/24 Unknown Tissue - Leg, Left Anaerobic Culture - Final Anaerobic cocci 10/11/24 Unknown Tissue - Leg, Left Gram Stain - Final 10/11/24 Unknown Tissue - Leg, Left Wound Culture - Final Staphylococcus epidermidis#2 Granulicatella adiacens Staphylococcus epidermidis Actinotignum schaalii 10/11/24 Unknown Tissue - Leg, Left Anaerobic Culture - Final No anaerobic bacteria isolated. 10/10/24 03:00 Blood Culture (Wb) - Left Hand Blood Culture - Final No growth in 5 days. 10/10/24 01:30 Mucosa - Nasopharyngeal Respiratory Panel (PCR) - Final 10/09/24 15:30 Mucosa - Nose SARS-CoV-2, Influenza & RSV (PCR) - Final Dosing Weight Weight used for dosin kg Estimated Creatinine Clearance Estimated Creatinine Clearance: 61 Goal Trough Goal Trough: 15-20 mcg/mL Pharmacy Plan for Drug Dosing Pharmacy Plan for Drug Dosing: Vancomycin trough level of 20.5 was just slightly above the target range of 15- 20. Since this was drawn just 10.75hrs post-dose we will continue dosing at 1000mg q12h. Another trough will be drawn in two days. Pharmacy Service will continue to monitor and adjust dosing as required. Follow-Up Labs Follow-Up Labs: Trough: Vancomycin Date/Time Labs Ordered Labs to be done on [date and time ordered]: 10/20/24 @0230
[2024-10-18] MEDS: Vancomycin IV 1,000 MG/200 ML BAG 200 MG IV (03:58)
[2024-10-18 04:02] LABS: Anion Gap 13 (5-15); BUN 19 mg/dL (4-19); BUN/Creat Ratio 14.4 RATIO (10-20); Calcium,Total 7.7 mg/dL (7.6-11.0); Carbon Dioxide 20.9 mmol/L (21.0-32.0); Chloride 104 mmol/L (98-108); Creatinine, Serum 1.34 mg/dL (0.70-1.20); EST Glomerular Filtration Rate 54 (>60); Estimated Creatinine Clearance 60.93 ml/min (50-250); Glucose 153 mg/dL (70-99); Potassium 3.3 mmol/L (3.3-5.1); Sodium Level 137 mmol/L (133-145)
[2024-10-18] MEDS: Dicyclomine 10 MG Capsule 20 MG PO ×2 (05:05→14:43)
[2024-10-18] MEDS: Lactobacillis Acidophilus 1 CAP PO ×2 (05:05→14:43)
[2024-10-18] MEDS: metroNIDAZOLE 500 MG/100 ML BAG 100 MG IV (05:05)
[2024-10-18] MEDS: Ipratropium/Albuterol Sulfate 3 ML AMPUL.NEB INHALATION ×2 (06:42→11:38)
[2024-10-18] MEDS: 0.9% Saline Lock 10 ML Syringe IV (07:39)
[2024-10-18] MEDS: HYDROmorphone 0.5 MG/0.5 ML SYRINGE IV (07:39)
--- NOTE | 2024-10-18 07:56 | PN.HOSP_ITS ---
Reason for Visit Reason for Visit: Diagnoses Type 2 diabetes mellitus without complications (10/09/24) Heart failure, unspecified (10/09/24) Cutaneous abscess of left lower limb (10/09/24) Cellulitis, unspecified (10/09/24) Unspecified open wound, left thigh, subsequent encounter (10/09/24) Subjective Subjective Feeling well. No new complaints. Objective Data Objective Data Vital Signs: Vital Signs Temp Pulse Resp BP Pulse Ox O2 Del Method O2 Flow Rate 36.6 C 74 18 136/49 H 95 Nasal Cannula 2 10/18/24 07:35 10/18/24 07:35 10/18/24 07:35 10/18/24 07:35 10/18/24 07:35 10/18/24 07:35 10/18/24 07:35 FiO2 2 10/16/24 09:36 Oxygen Flow Rate (L/min) 2 Oxygen Delivery Method Nasal Cannula Weight: 131 kg Body Mass Index (BMI) 42.6 Intake & Output: Intake and Output for Last 24 Hours 10/16/24 10/17/24 10/18/24 23:59 23:59 23:59 Intake Total 2864 / 2864 1630 / 1630 780 / 780 Output Total 1945 / 2345 1800 / 1800 1000 / 1000 Balance 919 / 519 -170 / -170 -220 / -220 Lab / Micro Data 10/18/24 02:45 10/18/24 02:45 Labs: Laboratory Results - last 24 hr 10/17/24 08:17: POC Glucose 181 H 10/17/24 11:18: POC Glucose 325 H 10/17/24 16:07: POC Glucose 180 H 10/17/24 21:54: POC Glucose 147 H 10/18/24 02:45: WBC 10.8, RBC 3.51 L, Hgb 10.7 L, Hct 33.7 L, MCV 96.0 H, MCH 30.5, MCHC 31.8 L, RDW Std Deviation 52.1 H, RDW Coeff of Jadon 14.8 H, Plt Count 251, MPV 9.8, Immature Gran % (Auto) 1.800 H, Neut % (Auto) 65.7, Lymph % (Auto) 25.6, [place] % (Auto) 4.9, Eos % (Auto) 1.5, Baso % (Auto) 0.5, Absolute Neuts (auto) 7.1, Absolute Lymphs (auto) 2.77, Nucleated RBC % 0, PT 16.5 H, INR 1.3, Sodium 137, Potassium 3.3, Chloride 104, Carbon Dioxide 20.9 L, Anion Gap 13, BUN 19, Creatinine 1.34 H, Estim Creat Clear Calc 60.93, Est GFR (MDRD) Non-Af 54 L, BUN/Creatinine Ratio 14.4, Glucose 153 H, Calcium 7.7, Vancomycin Trough 20.5 H Micro: Microbiology 10/11/24 Unknown Tissue - Leg, Left Gram Stain - Final 10/11/24 Unknown Tissue - Leg, Left Wound Culture - Final Staphylococcus epidermidis Granulicatella adiacens Actinotignum schaalii 10/11/24 Unknown Tissue - Leg, Left Anaerobic Culture - Final Anaerobic cocci 10/11/24 Unknown Tissue - Leg, Left Gram Stain - Final 10/11/24 Unknown Tissue - Leg, Left Wound Culture - Final Staphylococcus epidermidis#2 Granulicatella adiacens Staphylococcus epidermidis Actinotignum schaalii 10/11/24 Unknown Tissue - Leg, Left Anaerobic Culture - Final No anaerobic bacteria isolated. 10/10/24 03:00 Blood Culture (Wb) - Left Hand Blood Culture - Final No growth in 5 days. 10/10/24 01:30 Mucosa - Nasopharyngeal Respiratory Panel (PCR) - Final 10/09/24 15:30 Mucosa - Nose SARS-CoV-2, Influenza & RSV (PCR) - Final Physical Exam Const alert and no apparent distress HEENT head/scalp atraumatic and moist oral mucous membranes Resp normal respiratory effort, no retractions, no use of accessory muscles and clear to auscultation bilaterally Cardio regular rate, regular rhythm, S1 normal heart sound and S2 normal heart sound GI normal to inspection, nondistended, normoactive bowel sounds, soft to palpation, non-tender and non-distended Assessment & Plan Assessment/Plan (1) Abscess of left thigh: PLAN: Necrotizing soft tissue infection of left thigh. Pt underwent I+D with debridement of left thigh abscess with Drs. Johnson and More on 10/11. Patient underwent further excision of left thigh wound and wound VAC placement on October 16. Wound vac changed 10/18. Cultures from the showed Staph epidermidis, Granulicatella, Actinotignum On vanc, metronidazole and CTX. ID following: Plan is for discharge is 1 week of Doxy 100 twice daily, cefdinir 300 twice daily and metronidazole 500 3 times daily. (2) CHF (congestive heart failure): PLAN: acute HFpEF echo 10/10 shows an EF 65%. Mild LVH. on furosemide 60 IV bid. Will change to 40 daily. (3) Type 2 diabetes mellitus: PLAN: a1c 8.5 only takes metformin at home. now on glargine and SSI. Glargine just increased from 12 to 15 in AM and 8 QHS. Hold off on further changes at this time and observe. PLAN: Plan Chronic conditions: * pafib/flutter: resume warfarin, no bridge. Continue flecainide and metoprolol. * COPD: BDs * HTN * obesity class III: complicates care and recovery. VTE prophylaxis: LMWH. Disposition: home with [facility].
[2024-10-18] MEDS: Furosemide 40 MG/4 ML Vial 60 MG IV (08:37)
[2024-10-18] MEDS: Metoprolol Tartrate 50 MG Tablet PO (08:37)
[2024-10-18] MEDS: guaiFENesin/D-Methorphan TAB.SR.12H 2 TABLET PO (08:37)
[2024-10-18] MEDS: Flecainide 100 MG Tablet 50 MG PO (08:38)
[2024-10-18] MEDS: metFORMIN HCl 500 MG Tablet PO (08:38)
[2024-10-18] MEDS: Senna/Docusate Sodium 1 Tablet 2 TABLET PO (08:38)
[2024-10-18] MEDS: Potassium Chloride Oral Tablet 20 MEQ 40 MEQ PO (08:38)
[2024-10-18] MEDS: Insulin Lispro 100 UNIT/ML INSULN.PEN 10 UNIT SC ×2 (08:44→13:01)
[2024-10-18] MEDS: Insulin Lispro 100 UNIT/ML INSULN.PEN SC ×2 (08:44→13:00)
[2024-10-18] MEDS: Insulin Glargine-YFGN 100 UNIT/ML Pen 15 UNIT SC (08:45)
[2024-10-18 08:58] LABS: Bedside Glucose 173 mg/dL (74-106)
--- NOTE | 2024-10-18 09:11 | WOUNDNOTE ---
wound photo: left upper thigh
[2024-10-18] MEDS: Prazosin HCl 1 MG Capsule 2 MG PO (11:06)
--- NOTE | 2024-10-18 11:22 | PCM.PN.SRG ---
Subjective Subjective Doing well overall. Not much pain from left thigh. No pain in the groin or perineum or abdomen. Objective Data Objective Data Vital Signs: Vital Signs Temp Pulse Resp BP Pulse Ox O2 Del Method O2 Flow Rate 97.8 F 74 18 112/46 L 95 Nasal Cannula 2 10/18/24 07:35 10/18/24 08:37 10/18/24 07:35 10/18/24 10:52 10/18/24 07:35 10/18/24 08:20 10/18/24 10:02 FiO2 2 10/16/24 09:36 Oxygen Flow Rate (L/min) 2 Oxygen Delivery Method Nasal Cannula Weight: 288 lb 12.889 oz Body Mass Index (BMI) 42.6 Intake & Output: Intake and Output for Last 24 Hours 10/16/24 10/17/24 10/18/24 23:59 23:59 23:59 Intake Total 2864 / 2864 1630 / 1630 780 / 780 Output Total 1945 / 2345 1800 / 1800 1000 / 1000 Balance 919 / 519 -170 / -170 -220 / -220 Lab / Micro Data 10/18/24 02:45 10/18/24 02:45 Labs: Laboratory Results - last 24 hr 10/17/24 11:18: POC Glucose 325 H 10/17/24 16:07: POC Glucose 180 H 10/17/24 21:54: POC Glucose 147 H 10/18/24 02:45: WBC 10.8, RBC 3.51 L, Hgb 10.7 L, Hct 33.7 L, MCV 96.0 H, MCH 30.5, MCHC 31.8 L, RDW Std Deviation 52.1 H, RDW Coeff of Jadon 14.8 H, Plt Count 251, MPV 9.8, Immature Gran % (Auto) 1.800 H, Neut % (Auto) 65.7, Lymph % (Auto) 25.6, [place] % (Auto) 4.9, Eos % (Auto) 1.5, Baso % (Auto) 0.5, Absolute Neuts (auto) 7.1, Absolute Lymphs (auto) 2.77, Nucleated RBC % 0, PT 16.5 H, INR 1.3, Sodium 137, Potassium 3.3, Chloride 104, Carbon Dioxide 20.9 L, Anion Gap 13, BUN 19, Creatinine 1.34 H, Estim Creat Clear Calc 60.93, Est GFR (MDRD) Non-Af 54 L, BUN/Creatinine Ratio 14.4, Glucose 153 H, Calcium 7.7, Vancomycin Trough 20.5 H 10/18/24 08:18: POC Glucose 173 H Micro: Microbiology 10/11/24 Unknown Tissue - Leg, Left Gram Stain - Final 10/11/24 Unknown Tissue - Leg, Left Wound Culture - Final Staphylococcus epidermidis Granulicatella adiacens Actinotignum schaalii 10/11/24 Unknown Tissue - Leg, Left Anaerobic Culture - Final Anaerobic cocci 10/11/24 Unknown Tissue - Leg, Left Gram Stain - Final 10/11/24 Unknown Tissue - Leg, Left Wound Culture - Final Staphylococcus epidermidis#2 Granulicatella adiacens Staphylococcus epidermidis Actinotignum schaalii 10/11/24 Unknown Tissue - Leg, Left Anaerobic Culture - Final No anaerobic bacteria isolated. 10/10/24 03:00 Blood Culture (Wb) - Left Hand Blood Culture - Final No growth in 5 days. 10/10/24 01:30 Mucosa - Nasopharyngeal Respiratory Panel (PCR) - Final 10/09/24 15:30 Mucosa - Nose SARS-CoV-2, Influenza & RSV (PCR) - Final Physical Exam Narrative No lower extremity swelling/calf swelling Left groin/thigh with wound VAC in place holding suction. No surrounding induration or erythema Wound VAC with serosanguineous fluid VAC removed. Wound without any fluid collections. Granulating. VAC replaced. Assessment & Plan Assessment/Plan (1) Open thigh wound: QUALIFIERS: Encounter type: subsequent encounter Laterality: left Qualified Code(s): S71.102D - Unspecified open wound, left thigh, subsequent encounter PLAN: Continue three times per week VAC changes (OK for discharge and continued VAC changes at home as outpatient). Plan to follow up with plastic surgery in the wound care center on 21 October 2024. Charges/Coding Procedures Integumentary [id number]: [id number] Global Visit
[2024-10-18 11:36] LABS: Bedside Glucose 184 mg/dL (74-106)
--- NOTE | 2024-10-18 11:37 | PCM.DC.SUM ---
Providers Date of Admission: 10/09/24 Primary Care Physician: Carrie Boyer, TENT WORKER Consultations 10/11/24 09:42 Consult: Infectious Disease Routine Consulting Provider: Jenaro Chu Reason for Consult: left groin abscess?/plegmon on Jardiance EMERGENT Consult: No Notified: Yes Date Notified: 10/11/24 Time Notified: 09:42 Method of Notification: Text 10/11/24 12:58 Consult: Plastic Surgery Routine Consulting Provider: Jenaro Aguero Reason for Consult: left upper thigh cellulitis with air pockets in CT pelvis EMERGENT Consult: No MD Notified: Yes Date Notified: 10/11/24 Time Notified: 12:59 Method of Notification: Verbal 10/11/24 13:34 Consult: General Surgery Routine Consulting Provider: Oliverio Johnson Reason for Consult: left groin infection/air pokcet in left inguinal region EMERGENT Consult: No MD Notified: Yes Date Notified: 10/11/24 Time Notified: 13:35 Method of Notification: Verbal 10/14/24 10:55 Consult: Onc/Wound/project director Routine Comment: Reason for Consult:: left inner thigh/groin Reason For Visit: HF EXACERBATION Diagnosis Discharge Diagnosis (1) Abscess of left thigh: Status: Acute Code(s): L02.416 - Cutaneous abscess of left lower limb Plan: Necrotizing soft tissue infection of left thigh. Pt underwent I+D with debridement of left thigh abscess with Drs. Johnson and More on 10/11. Patient underwent further excision of left thigh wound and wound VAC placement on October 16. Wound vac changed 10/18. Cultures from the showed Staph epidermidis, Granulicatella, Actinotignum On vanc, metronidazole and CTX. ID following: Plan is for discharge is 1 week of Doxy 100 twice daily, cefdinir 300 twice daily and metronidazole 500 3 times daily. (2) CHF (congestive heart failure): Status: Acute Code(s): I50.9 - Heart failure, unspecified Plan: acute HFpEF echo 10/10 shows an EF 65%. Mild LVH. on furosemide 60 IV bid. Will change to 40 daily. (3) Type 2 diabetes mellitus: Status: Acute Code(s): E11.9 - Type 2 diabetes mellitus without complications Plan: a1c 8.5 only takes metformin at home. now on glargine and SSI. Glargine just increased from 12 to 15 in AM and 8 QHS. Hold off on further changes at this time and observe. Plan Chronic conditions: pafib/flutter: resume warfarin, no bridge. Continue flecainide and metoprolol. COPD: BDs HTN obesity class III: complicates care and recovery. VTE prophylaxis: LMWH. Disposition: home with [facility]. Medications at Discharge Home Medications potassium chloride 20 mEq tablet,extended release(part/cryst) 20 meq PO DAILY Low potassium 09/27/15 atorvastatin 40 mg tablet 40 mg PO QHS Cholesterol 08/20/16 metformin 500 mg tablet 500 mg PO BID Diabetes 05/09/19 fexofenadine 180 mg tablet 180 mg PO DAILY PRN PRN Allergic Symptoms 01/11/22 prazosin 2 mg capsule 2 mg PO BID bp 08/08/22 vedolizumab 300 mg intravenous solution (Entyvio) 300 mg IV .per order 03/21/23 flecainide 50 mg tablet 50 mg PO Q12H #180 TABLETS 11/16/23 tiotropium 2.5 mcg-olodaterol 2.5 mcg/actuation mist for inhalation (Stiolto Respimat) 2 puff inhalation DAILY SOB #3 ea 04/22/24 warfarin 2.5 mg tablet 2.5 mg PO QDAY blood thinner #90 tabs 05/20/24 prednisone 20 mg tablet 20 mg PO Q12H PRN COLON SYMPTOMS 09/27/24 dicyclomine 20 mg tablet 20 mg PO 3XD 10/09/24 ketoconazole 2 % shampoo 1 applic topical .COMPLEX 10/09/24 cefdinir 300 mg capsule 300 mg PO BID 7 days #14 caps 10/18/24 doxycycline monohydrate 100 mg capsule 100 mg PO BID #14 caps 10/18/24 furosemide 40 mg tablet (Lasix) 40 mg PO DAILY #30 tabs 10/18/24 insulin glargine-yfgn 100 unit/mL (3 mL) subcutaneous pen 8 unit (0.08 mL) subcut DINNER #15 mL 10/18/24 insulin glargine-yfgn 100 unit/mL (3 mL) subcutaneous pen 15 unit (0.15 mL) subcut DAILY #15 mL 10/18/24 metoprolol tartrate 50 mg tablet 50 mg PO BID #60 tabs 10/18/24 metronidazole 500 mg tablet 500 mg PO Q8H #21 tabs 10/18/24 pen needle, diabetic 29 gauge #100 ea 10/18/24 Hospital Course Operations None Procedures 2-D Echocardiogram Summary of Care Provided Minutes Spent on Discharge: 32 Hospital Course: Patient presents with respiratory failure secondary to CHF. Started on Lasix. Patient was noted to have cellulitis of the left lower extremity. That was less likely discovered to have an abscess. Patient underwent surgery on the that showed necrotizing soft tissue infection of the left thigh. He went back on the that had wound VAC placement at that time. The wound itself measuring 12 x 12 cm. And patient had wound VAC change and replaced on the . Wound was polymicrobial and patient was seen by infectious disease and plan is for 1 week course of doxycycline, cefdinir and metronidazole. While in the hospital he was on vancomycin metronidazole and ceftriaxone. Weight / BMI Weight Weight: 131 kg Body Mass Index (BMI) 42.6 ABG / Lab / Microbiology Data 10/18/24 02:45 10/18/24 02:45 Laboratory: Laboratory Results - last 24 hr 10/17/24 11:18: POC Glucose 325 H 10/17/24 16:07: POC Glucose 180 H 10/17/24 21:54: POC Glucose 147 H 10/18/24 02:45: WBC 10.8, RBC 3.51 L, Hgb 10.7 L, Hct 33.7 L, MCV 96.0 H, MCH 30.5, MCHC 31.8 L, RDW Std Deviation 52.1 H, RDW Coeff of Jadon 14.8 H, Plt Count 251, MPV 9.8, Immature Gran % (Auto) 1.800 H, Neut % (Auto) 65.7, Lymph % (Auto) 25.6, [place] % (Auto) 4.9, Eos % (Auto) 1.5, Baso % (Auto) 0.5, Absolute Neuts (auto) 7.1, Absolute Lymphs (auto) 2.77, Nucleated RBC % 0, PT 16.5 H, INR 1.3, Sodium 137, Potassium 3.3, Chloride 104, Carbon Dioxide 20.9 L, Anion Gap 13, BUN 19, Creatinine 1.34 H, Estim Creat Clear Calc 60.93, Est GFR (MDRD) Non-Af 54 L, BUN/Creatinine Ratio 14.4, Glucose 153 H, Calcium 7.7, Vancomycin Trough 20.5 H 10/18/24 08:18: POC Glucose 173 H 10/18/24 11:08: POC Glucose 184 H Microbiology: Microbiology 10/11/24 Unknown Tissue - Leg, Left Gram Stain - Final 10/11/24 Unknown Tissue - Leg, Left Wound Culture - Final Staphylococcus epidermidis Granulicatella adiacens Actinotignum schaalii 10/11/24 Unknown Tissue - Leg, Left Anaerobic Culture - Final Anaerobic cocci 10/11/24 Unknown Tissue - Leg, Left Gram Stain - Final 10/11/24 Unknown Tissue - Leg, Left Wound Culture - Final Staphylococcus epidermidis#2 Granulicatella adiacens Staphylococcus epidermidis Actinotignum schaalii 10/11/24 Unknown Tissue - Leg, Left Anaerobic Culture - Final No anaerobic bacteria isolated. 10/10/24 03:00 Blood Culture (Wb) - Left Hand Blood Culture - Final No growth in 5 days. 10/10/24 01:30 Mucosa - Nasopharyngeal Respiratory Panel (PCR) - Final 10/09/24 15:30 Mucosa - Nose SARS-CoV-2, Influenza & RSV (PCR) - Final D/C Instructions Discharge Diet: Low fat / Low cholesterol and - (1.5 liters of fluid/day. ) DC O2, CPAP, BIPAP Needs PSN CPAP & BiPAP: BiPAP & CPAP Settings per PSN Fraction of Inspired Oxygen ( 2 10/16/24 09:36 FIO2) Home O2 Discharge instructions: Yes Type of respiratory needs?: Oxygen Oxygen frequency: Continuous Continuous oxygen liters per minute: 2 DC home with Oxygen: Yes Home O2 MD Review: I have reviewed the oxygen testing, and the patient qualifies for home oxygen equipment and portability. The patient is mobile in the home and the community. Meaningful Use Info Meaningful Use Meaningful Use Diagnoses (Choose all that apply): CHF CHF LUCA/ARB ordered at discharge?: Yes Documented LVEF (%): 65 Ischemic Stroke Statin Dosing Therapy Reference: STATIN DOSE THERAPY REFERENCE: * Patients > 75 years receive moderate or high dose statin therapy. * Patients 75 years or YOUNGER should receive HIGH intensity statin dose unless contraindicated. You will be required to document reason for non-treatment if statin daily dose does not meet guidelines. HIGH DOSE STATIN THERAPY DAILY Atorvastatin > than or = to 40 mg Rosuvastatin > than or = to 20 mg Amlodipine + Atorvastatin > than or = to 2.5/40 mg Ezetimibe + Simvastatin 10/80 mg Simvastatin 80mg Discharge Plan Admission Admit Date/Time: 10/09/24 20:04 Primary Reason for Your Visit: left leg abscess. Attending Provider: Modesto Encarnacion Primary Care Provider: Carrie Boyer Consulting Providers: Julia Vaca; Jenaro Chu; Oliverio Johnson; Jenaro Aguero; Cornelius Rich Instructions Patient Instructions: Diabetes Inspect Feet, Diabetes and Illness Discharge Orders/Prescriptions Prescriptions: New insulin glargine-yfgn 100 unit/mL (3 mL) Insulin Pen 8 unit subcut DINNER Qty: 15 0RF insulin glargine-yfgn 100 unit/mL (3 mL) Insulin Pen 15 unit subcut DAILY Qty: 15 0RF metoprolol tartrate 50 mg Tablet 50 mg PO BID Qty: 60 0RF furosemide [Lasix] 40 mg tablet 40 mg PO DAILY Qty: 30 0RF doxycycline monohydrate 100 mg capsule 100 mg PO BID Qty: 14 0RF cefdinir 300 mg capsule 300 mg PO BID 7 Days Qty: 14 0RF metronidazole 500 mg tablet 500 mg PO Q8H Qty: 21 0RF (DME) pen needle, diabetic 29 gauge needle See Rx Instructions .Route Qty: 100 0RF Rx Instructions: As directed Continued metformin 500 mg tablet 500 mg PO BID Entyvio 300 mg recon soln 300 mg IV .per order Rx Instructions: 300 mg intravenously; as directed potassium chloride 20 MEQ tablet 20 meq PO DAILY Patient Comments: supplement atorvastatin 40 MG tablet 40 mg PO QHS Patient Comments: cholesterol fexofenadine 180 mg tablet 180 mg PO DAILY PRN PRN (Reason: Allergic Symptoms) prazosin 2 mg capsule 2 mg PO BID ketoconazole 2 % shampoo 1 applic topical .COMPLEX Rx Instructions: 1 applic topically 2-3 TIMES WEEKLY; dicyclomine 20 mg tablet 20 mg PO 3XD prednisone 20 mg tablet 20 mg PO Q12H PRN (Reason: COLON SYMPTOMS) flecainide 50 mg tablet 50 mg PO Q12H Qty: 180 3RF Stiolto Respimat 2.5-2.5 mcg/actuation mist 2 puff inhalation DAILY Qty: 3 3RF warfarin 2.5 mg tablet 2.5 mg PO QDAY Qty: 90 3RF Protocol: Dose Management Condition: Monday Dose/Route: 1.25 mg Instruction: 0.5 x 2.5 mg tablets Condition: Monday Dose/Route: 2.5 mg Instruction: 1 x 2.5 mg tablet Condition: Monday Dose/Route: 2.5 mg Instruction: 1 x 2.5 mg tablet Condition: Monday Dose/Route: 2.5 mg Instruction: 1 x 2.5 mg tablet Condition: Dose/Route: 2.5 mg Instruction: 1 x 2.5 mg tablet Condition: Monday Dose/Route: 2.5 mg Instruction: 1 x 2.5 mg tablet Condition: Monday Dose/Route: 1.25 mg Instruction: 0.5 x 2.5 mg tablets Protocol Text: Adjustment Start Date: Monday09/17/24 INR Value: 2.3 INR Date: 09/17/24 Recheck Date: 10/01/24 Patient Comments: LAST DOSE 09/28/24 Rx Instructions: 2.5MG Daily; or as directed Discontinued furosemide 20 mg tablet 20 mg PO DAILY Rx Instructions: TAKE AN EXTRA 20MG prn FOR INCREASES SOB/ SWELLING metoprolol tartrate 100 mg tablet 100 mg PO BID Jardiance 10 mg tablet 10 mg PO DAILY Patient Comments: LAST DOSE 09/28/24 Other Ambulatory Orders: Glucometer (Routine) Timeframe: 1 Day Location: Determined by Patient Ordered By: Dr. Modesto Encarnacion Referrals / Follow Up: Carrie Boyer, TENT WORKER [Primary Care Provider] - Within 2 Weeks [facility] [facility] [Non-Staff] - 10/21/24 1:00 pm (Appt is with Dr Aguero @ the [facility]. ) Disposition Disposition (needs filled in before D/C Order can be placed): Home Health Service Charges/Coding Visit Charges Inpatient E&M: 90141 Disch Hosp >30min
--- NOTE | 2024-10-18 12:49 | CASEMGMT ---
Addendum entered by Jasmina Cohen 10/18/24 13:42: Updated home O2 script for 2 L/M O2 continuously sent to [facility] via [employer], along w/home O2 testing results and Physician documentation. Addendum entered by Jasmina Cohen 10/18/24 13:35: MYRNA GIRALDO to room. Pt sitting up in chair in room. and nephew, Alvin, in room visiting. They are aware pt discharging today. Pt and family are aware home O2 testing completed and pt is now to wear 2 L/M continuously. Alvin states will go to pt's home to get portable o2 tank for pt to go home on. Pt verifies he does have a pulse ox @ home. Pt to dc home on insulin, which has been e-scribed to [facility], along w/several other PO medications. Pt states he has administered his own insulin in the past and feels comfortable w/doing so again. He states does not need a nurse to review self admin w/him. He verifies he has a glucometer w/supplies @ home. 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 Home Wound Vac has been applied by wound nurse, Laurel. Pt and family aware of appt w/Dr Aguero on Mon @ the Wound Center and that VAC dsg will be changed & plan is to then continue to go to weekly after that. Also made aware [facility] will change the dsg 2 other times during the week (total of 3 x/wk) Pt and family aware [facility] will be going to pt's home tomorrow for SOC. Further questions answered. They voice understanding of the above info and deny having further questions. Original Note: MYRNA GIRALDO NOTE: Kristel @ [facility] notified dc order is in. She states SOC scheduled w/family for tomorrow. Inga POLK RN, CM
--- NOTE | 2024-10-18 12:59 | WOUNDNOTE ---
Pt switched over to the home VAC. reviewed alarms, how to change canister, how to charge VAC, etc. with patient and nephew. both aware they need to take a dressing and canister to the wound center appts. home health to see patient tomorrow but next dressing change will be Monday at the wound center. pt and nephew deny questions or needs.
--- NOTE | 2024-10-18 13:46 | PCM.PN.ID ---
Physical Exam Narrative Feeling better, no fever, no n/v/d, d/c planned for today Const alert and no apparent distress General Appearance: cooperative Resp normal air movement and clear to auscultation bilaterally Cardio regular rate and regular rhythm GI soft to palpation, non-tender and non-distended Skin Skin Narrative: no new rash, wound vac in place ID ID: Route of nutrition/ use of supplements: [] Nutritional Intake: [] IV Site: [] Georges Catheter: [] Assessment & Plan Assessment/Plan (1) CHF (congestive heart failure): (2) Cellulitis: PLAN: With necrotic L groin abscess. On vanc, ceftriaxone, flagyl. Taken to OR 10/11/[address] Johnson and Dr. Aguero, surg cx with staph epi, granulicatella, anaerobe, and actinotignum. Plan is for po doxy 100mg bid, cefdinir 300mg bid, and flagyl 500mg tid for one week at discharge. Will follow prn
== END 2024-10-18 15:40 | disposition home health service (06) | DRG 463 ==
LOC: ED 20:46 → PCU 21:18
PROVIDERS: Internal Medicine; Internal Medicine Infectious Disease; Surgery; Surgery Plastic and Reconstructive Surgery; Admitting Provider Family Medicine; Emergency Provider Emergency Medicine; PCP Clinical Nurse Specialist Adult Health; Referring Provider Emergency Medicine
PROC: 0JBM0ZZ Excision of Left Upper Leg Subcutaneous Tissue and Fascia, Open Approach (ICD-10-PCS; principal; 2024-10-11 15:20)
DX: M72.6 Necrotizing fasciitis (principal); I50.33 Acute on chronic diastolic (congestive) heart failure; I48.92 Unspecified atrial flutter; L02.214 Cutaneous abscess of groin; I13.0 Hypertensive heart and chronic kidney disease with heart failure and stage 1 through stage 4 chronic kidney disease, or unspecified chronic kidney disease; Z68.41 Body mass index [BMI] 40.0-44.9, adult; L02.416 Cutaneous abscess of left lower limb; L03.314 Cellulitis of groin; L03.116 Cellulitis of left lower limb; D63.1 Anemia in chronic kidney disease; E11.628 Type 2 diabetes mellitus with other skin complications; J44.9 Chronic obstructive pulmonary disease, unspecified; N18.30 Chronic kidney disease, stage 3 unspecified; E11.22 Type 2 diabetes mellitus with diabetic chronic kidney disease; E78.00 Pure hypercholesterolemia, unspecified; I48.0 Paroxysmal atrial fibrillation; D47.2 Monoclonal gammopathy; G47.33 Obstructive sleep apnea (adult) (pediatric); Z79.4 Long term (current) use of insulin; Z79.01 Long term (current) use of 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s; B95.4 Other streptococcus as the cause of diseases classified elsewhere; B95.7 Other staphylococcus as the cause of diseases classified elsewhere; B96.89 Other specified bacterial agents as the cause of diseases classified elsewhere; E66.813 Obesity, class 3; Z79.51 Long term (current) use of inhaled steroids; Z79.84 Long term (current) use of oral hypoglycemic drugs; Z79.899 Other long term (current) drug therapy; Z86.16 Personal history of COVID-19; Z87.891 Personal history of nicotine dependence
CPT/HCPCS: 36415; 36569; 70450; 71045; 71046; 71275; 72125; 72192; 73502; 80048; 80053; 80061; 80202; 81001; 82962; 83036; 83735; 83880; 84145; 84484; 85025; 85610; 86140; 87015; 87040; 87070; 87075; 87077; 87102; 87116; 87186; 87205; 87206; 87631; 87633; 93005; 93306; 94640; 97110; 97116; 97162; 97166; 97530; 97535; 99285; Q9957; Q9967; A4216; C8929; J1938; J2405

== ENCOUNTER 2024-10-21 12:45 | Outpatient (RCR) | payer MEDICARE, SELFPAY ==
[2024-10-21 13:17] VITALS: BP 108/54; PULSE 63; RESP 16; TEMP 36.1
--- NOTE | 2024-10-22 09:41 | WC ---
10/21/24 LT MED MOE
--- NOTE | 2024-10-22 21:07 | PCM.WC.HP ---
History of Present Illness Date of Service: 10/21/24 Chief Complaint: Left groin/thigh wound History of Wound: Oliverio Oshea is a delightful 79-year-old male with past medical history of diabetes who underwent incision and drainage with general surgery and plastic surgery on 11 October 2024 for a necrotizing soft tissue infection of the left medial thigh and groin. The abscess was treated with a washout and dressing changes using Dakin's wet-to-dry as well as infectious disease consult for a polymicrobial infection. Source control was deemed to be obtained with the first I&D, but there was necrotic debris within the wound that was further excised on 16 October 2024 with plastic surgery followed by wound VAC placement. Patient presents today as a follow-up after being discharged from the hospital and beginning 3 times per week VAC changes. He has had some issues with the VAC holding suction, however home health has been helpful with assistance in replacing the VAC and improving the seal as needed. Patient is here today with his adult son who is quite helpful and an excellent historian and child adolescent care. One of the challenges is that Mr. Oshea's has early onset dementia and this has been a challenge for the family now that he is home. We have initiated a social work consultation upon the agreement with the adult son. Otherwise patient is doing well at home with no fevers or chills and improved pain. FORMERLY [facility] Medical History Type 2 diabetes mellitus Rash History of steroid therapy Tremor On home oxygen therapy COPD (chronic obstructive pulmonary disease) Hoarseness Chronic cough History of edema Normal Holter exam Hypertension Hyperbilirubinemia Transaminitis Thrombocytopenia Obesity Wears glasses Wears partial dentures Cancer Arthritis High cholesterol Tremor of both hands Ulcerated colon Shortness of breath on exertion Leg cramps History of stress test History of echocardiogram Cardiology follow-up encounter History of atrial fibrillation 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 Ulcerative colitis Colitis Coagulopathy COVID-19 Anxiety Diabetes Former smoker CPAP (continuous positive airway pressure) dependence Sleep apnea Congestive heart failure (CHF) Atrial fibrillation 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, adult [facility] current use of 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 Chronic diastolic heart failure Paroxysmal atrial flutter SOB (shortness of breath) Home Medications ?Medication ?Instructions ?Recorded ?Last Taken ?Type potassium chloride 20 mEq 20 meq PO DAILY Low potassium 09/27/15 10/06/24 History tablet,extended release(part/cryst) atorvastatin 40 mg tablet 40 mg PO QHS Cholesterol 08/20/16 10/06/24 History metformin 500 mg tablet 500 mg PO BID Diabetes 05/09/19 10/06/24 History fexofenadine 180 mg tablet 180 mg PO DAILY PRN PRN Allergic 01/11/22 07/10/24 History Symptoms prazosin 2 mg capsule 2 mg PO BID bp 08/08/22 10/06/24 History vedolizumab 300 mg intravenous 300 mg IV .per order 03/21/23 07/10/24 History solution (Entyvio) flecainide 50 mg tablet 50 mg PO Q12H #180 TABLETS 11/16/23 10/06/24 Rx tiotropium 2.5 mcg-olodaterol 2.5 2 puff inhalation DAILY SOB #3 ea 04/22/24 10/06/24 Rx mcg/actuation mist for inhalation (Stiolto Respimat) warfarin 2.5 mg tablet 2.5 mg PO QDAY blood thinner #90 05/20/24 10/06/24 Rx tabs prednisone 20 mg tablet 20 mg PO Q12H PRN COLON SYMPTOMS 09/27/24 10/06/24 History dicyclomine 20 mg tablet 20 mg PO 3XD 10/09/24 10/06/24 History ketoconazole 2 % shampoo 1 applic topical .COMPLEX 10/09/24 Unknown History cefdinir 300 mg capsule 300 mg PO BID 7 days #14 caps 10/18/24 Unknown Rx doxycycline monohydrate 100 mg 100 mg PO BID #14 caps 10/18/24 Unknown Rx capsule furosemide 40 mg tablet (Lasix) 40 mg PO DAILY #30 tabs 10/18/24 Unknown Rx insulin glargine-yfgn 100 unit/mL 8 unit (0.08 mL) subcut DINNER #15 10/18/24 Unknown Rx (3 mL) subcutaneous pen mL insulin glargine-yfgn 100 unit/mL 15 unit (0.15 mL) subcut DAILY #15 10/18/24 Unknown Rx (3 mL) subcutaneous pen mL metoprolol tartrate 50 mg tablet 50 mg PO BID #60 tabs 10/18/24 Unknown Rx metronidazole 500 mg tablet 500 mg PO Q8H #21 tabs 10/18/24 Unknown Rx pen needle, diabetic 29 gauge #100 ea 10/18/24 Unknown Rx oxycodone 5 mg tablet 5 mg PO Q8H PRN pain (scale score 10/19/24 Unknown Rx 7-10) 3 days #12 tabs Allergy/AdvReac Type Severity Reaction Status Date / Time amlodipine Allergy Severe Rash Verified 10/09/24 15:22 Penicillins Allergy Hives Verified 10/09/24 15:22 azithromycin AdvReac Diarrhea Verified 10/09/24 15:22 celecoxib (From Celebrex) AdvReac RECTAL Verified 10/09/24 15:22 BLEEDING Family History Mother Colon cancer Heart disease Father CAD (coronary artery disease) Sister Diabetes Brother Heart disease Diabetes Surgical History History of ERCP History of intraocular lens implant History of knee surgery History of bilateral hip replacements History of radiofrequency ablation procedure for cardiac arrhythmia (~08/11/15) Social History household members: spouse Smoking Status: Former smoker how long ago did patient quit smokin + years alcohol intake: never substance use type: does not use caffeine: Yes Type: coffee Number of servings: 3 Physical Exam Narrative Left groin/thigh wound Healthy and granulating wound down to fascia and muscle of the medial thigh up into the groin. There are no fluid collections or surrounding cellulitis. There is some necrotic debris at the base of the wound from the muscle and fascia. The wound measures 9 x 10 x 2 cm Debridement Note Debridement Note Wound debrided: Left groin/thigh wound Laterality: Left Wound Grade/Stage: Stage III Type of Debridement: Excisional debridement Anesthesia Used: 4% Lidocaine Solution Depth: to muscle (As well as to the fascia of the anterior compartment of the left thigh) Percentage of wound debrided: 100 Instrument Used: 7mm curette, Forceps and - (Scissors for sharp excision) Tissue Removed: Necrotic debris including fascia and muscle debris at the base of the wound Severity: Necrosis of Muscle (See above) Amount of bleeding with debridement: Moderate Bleeding Controlled with: Compression and gauze Patient tolerated procedure: Patient tolerated procedure well Post-Debridement Measurements and Additional Note: Post-Debridement Measurements/Treatment WC - Nurse 1 - General Ulcer Assessment Start: 10/21/24 13:16 Freq: Status: Active Protocol: VICKI Activity Type Activity Date Activity User E-sign Co-sign Detail Recorded Client Recorded Date Recorded By Document 10/21/24 13:17 ML [id number] 10/21/24 13:32 ML 10/21/24 13:17 WC - Today's Visit Information Type of service Initial Visit Arrival Mode Wheelchair Transfer Assistance None Patient Identification Verified (Name & Yes ) Patient Requires Transmission-Based No Precautions Vital Signs Temperature (97.8 F-99.1 F) 96.9 F L Temperature Source Temporal Pulse Rate (60-100) 63 Pulse Location Monitor Respiratory Rate (12-18) 16 Respiratory rate source Observation Blood Pressure (90/60-120/80) 108/54 L Blood Pressure Mean 72 Source Monitor Position Sitting Blood Pressure Location Right Arm History Since Last Visit- (Skip if this is Patient's initial visit) Have you changed medications since your No last visit? Any new allergies or adverse reactions No Had a fall/change in ADL's that may No increase risk of falls Signs or symptoms of abuse and/or No neglect since last visit Have you been in the hospital since your No last visit? Has dressing in place as prescribed No Has compression in place as prescribed N/A Has offloadiing in place as prescribed N/A Experienced any changes in pain level or No management Pain Scale: 0-10 Numeric Is Patient Pain Free? Yes BRIGHT - Nurse 1 - General Ulcer Measurement Start: 10/21/24 13:16 Freq: Status: Active Protocol: Activity Type Activity Date Activity User E-sign Co-sign Detail Recorded Client Recorded Date Recorded By Document 10/21/24 13:17 ML [id number] 10/21/24 13:32 ML 10/21/24 13:17 Wound Center Nurse 1 #1 LEFT MEDIAL GROIN -Current Size (cm) - Length 11 -Current Size (cm) - Width 6 -Current Size (cm) - Depth 3 -Total Square Cm 66 -Tunneling Position (O'clock) 1 -Tunneling Distance (cm) 10 -Undermining/Tunneling Yes -Undermining/Tunneling Starts (O'clock 1 ) -Undermining/Tunneling Ends (O'clock) 1 -Maximum Distance (cm) 10 -Exudate Amt Large -Exudate Type Serosanguineous -Slough/Fibrin No -Necrosis Amt Medium (34-66%) -Necrotic Tissue Type Adherent Slough -Texture (Mell-wound Skin Appearance) Assessed -Moisture (Mell-wound Skin Appearance) Assessed -Color (Mell-wound Skin Appearance) Assessed -Temperature (Mell-wound Skin No Abnormality Appearance) (Pt Warm) -Tenderness on Palpation (Mell-wound No Skin Appearance) -Ulcer Cleansing Soap and Water -Foul Odor after Cleansing No -Anesthetic Used 4% Lidocaine Solution WC - Nurse 2 - General Ulcer CM Notes Start: 10/21/24 13:16 Freq: Status: Active Protocol: Activity Type Activity Date Activity User E-sign Co-sign Detail Recorded Client Recorded Date Recorded By Document 10/21/24 14:09 [id number] 10/21/24 14:11 10/21/24 14:09 Wound Center Nurse 2 -Time 14:09 -Correct Patient Yes -Correct Side, Site, Position Yes -Correct Procedure Yes -Procedure Performed Yes -Type of Procedure Debridement -Clinical Debridement Muscle / Fascia -Tissue Removed Muscle,Fascia -Post Debridement (cm) - Length 9 -Post Debridement (cm) - Width 10 -Post Debridement (cm) - Depth 2.0 -Total Square (Post) (cm) 90 -Area of Debridement (cm) - Length 9 -Area of Debridement (cm) - Width 10 -Total Square (Area) (cm) 90 -Tunneling No -Undermining/Tunneling No -Circular Undermining No -Wound/Ulcer Outcome Not Healed -Ulcer Cleansing Rinsed/ Irrigated with Saline -Foul Odor after Cleansing No -Bioengineered Tissue No -Bleeding Controlled with Pressure -Treatment Response Procedure Tolerated Well -Offloading No -Debridement - Muscle / Fascia, 1st Yes 20sq cm -Debridement, Muscle/Fascia, ea addt'l 4 20sq cm or part thereof Pain Scale: 0-10 Numeric Is Patient Pain Free? Yes BRIGHT - Nurse 3 - General Ulcer D/C NN Start: 10/21/24 13:16 Freq: Status: Active Protocol: Activity Type Activity Date Activity User E-sign Co-sign Detail Recorded Client Recorded Date Recorded By Document 10/21/24 13:17 ML [id number] 10/21/24 13:32 ML Document 10/21/24 15:04 DL [id number] 10/21/24 15:05 DL 10/21/24 10/21/24 13:17 15:04 Pain Scale: 0-10 Numeric Is Patient Pain Free? Yes Yes Wound Care Center Nurse 3 #1 LEFT MEDIAL GROIN -Ulcer Cleansing Soap and Water -Foul Odor after Cleansing No -Negative Pressure Wound Therapy Continue -NPWT Application Charge NPWT & Debridement (nc ) -Setting (mmHg) 125 -Negative Pressure is Continuous Mell-Wound Care Barrier Treatment Response Procedure Tolerated Well WC - Visit Discharge Discharge Condition Stable Ambulatory Status Steady, Wheelchair Transportation Private Auto Facility Type Home Health Orders Sent Yes Charges/Coding Procedures Integumentary [id number]: 01019 Sweetie musc/fascia 20 sq cm/< Add On Codes: 66909 Sweetie musc/fascia add-on (x 4 units ) Assessment/Plan Assessment/Plan (1) Open thigh wound: CODE(S): S71.109A - Unspecified open wound, unspecified thigh, initial encounter QUALIFIERS: Encounter type: subsequent encounter Laterality: left Qualified Code(s): S71.102D - Unspecified open wound, left thigh, subsequent encounter PLAN: Patient has a wound secondary to an incision and drainage from a recent necrotizing soft tissue infection. Patient has been progressing well with the VAC changes. I talked him about tight sugar control and improve diet including high-protein supplementation and reducing the amount of added sugar in his diet. Continue 3 times per week VAC changes and follow-up in the wound care center in 1 week.
== END 2024-11-04 23:59 | disposition home or self-care (01) ==
LOC: WC 12:45
PROVIDERS: PCP Clinical Nurse Specialist Adult Health; Referring Provider Surgery Plastic and Reconstructive Surgery; Visit Provider Surgery Plastic and Reconstructive Surgery
DX: I11.0 Hypertensive heart disease with heart failure (principal); I50.32 Chronic diastolic (congestive) heart failure; J44.9 Chronic obstructive pulmonary disease, unspecified; Z79.4 Long term (current) use of insulin; E11.9 Type 2 diabetes mellitus without complications; Z79.84 Long term (current) use of oral hypoglycemic drugs; Z87.891 Personal history of nicotine dependence; Z79.01 Long term (current) use of 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s; E78.00 Pure hypercholesterolemia, unspecified; S71.102D Unspecified open wound, left thigh, subsequent encounter; Z99.81 Dependence on supplemental oxygen; Z79.899 Other long term (current) drug therapy
CPT/HCPCS: 11043; 11046; 99214; G0463

== ENCOUNTER 2024-10-24 11:01 | Observation (INO) | payer MEDICARE, SELFPAY ==
[2024-10-24] VITALS (11 sets, daily range): BP systolic 115–136; BP diastolic 36–82; PULSE 53–62; RESP 16–19; TEMP 36.4–36.9; O2SAT 90–97; BMI 42.7
--- NOTE | 2024-10-24 11:17 | EDS_ITS ---
HPI History of Present Illness Chief Complaint: GI Bleed [facility] Medical History Type 2 diabetes mellitus Rash History of steroid therapy Tremor On home oxygen therapy COPD (chronic obstructive pulmonary disease) Hoarseness Chronic cough History of edema Normal Holter exam Hypertension Hyperbilirubinemia Transaminitis Thrombocytopenia Obesity Wears glasses Wears partial dentures Cancer Arthritis High cholesterol Tremor of both hands Ulcerated colon Shortness of breath on exertion Leg cramps History of stress test History of echocardiogram Cardiology follow-up encounter History of atrial fibrillation MGUS (monoclonal gammopathy 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 Ulcerative colitis Colitis Coagulopathy COVID-19 Anxiety Diabetes Former smoker CPAP (continuous positive airway pressure) dependence Sleep apnea Congestive heart failure (CHF) Atrial fibrillation 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, 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 Chronic diastolic heart failure Paroxysmal atrial flutter SOB (shortness of breath) Home Medications ?Medication ?Instructions ?Recorded ?Last Taken ?Type potassium chloride 20 mEq 20 meq PO DAILY Low potassiu m 09/27/15 10/06/24 History tablet,extended release(part/cryst) atorvastatin 40 mg tablet 40 mg PO QHS Cholesterol 10/23/24 History metformin 500 mg tablet 500 mg PO BID Diabetes 05/0910/24/24 History fexofenadine 180 mg tablet 180 mg PO DAILY PRN Allergi c 01/11/22 07/10/24 History Symptoms prazosin 2 mg capsule 2 mg PO BID bp 08/08/2210/06 History vedolizumab 300 mg intravenous 300 mg IV .per order 07/10/24 History solution (Entyvio) flecainide 50 mg tablet 50 mg PO Q12H #180 TABLETS 0 11/16/23 10/24/24 Rx tiotropium 2.5 mcg-olodaterol 2.5 2 puff inhalation DA RONEY SOB #3 ea 04/22/24 10/24/24 Rx mcg/actuation mist for inhalation (Stiolto Respimat) prednisone 20 mg tablet 20 mg PO Q12H PRN COLON SYMP TOMS 09/27/24 10/24/24 His tory dicyclomine 20 mg tablet 20 mg PO TID 10/09/24 History ketoconazole 2 % shampoo 1 applic topical .COMPLEX Unknown History cefdinir 300 mg capsule 300 mg PO BID 7 days #14 cap s 10/18/24 10/24/24 Rx doxycycline monohydrate 100 mg 100 mg PO BID #14 caps 10/18/24 10/24/24 Rx capsule furosemide 40 mg tablet (Lasix) 40 mg PO DAILY #30 tab s 10/18/24 10/24/24 Rx insulin glargine-yfgn 100 unit/mL 8 unit (0.08 mL) sub cut DINNER #15 10/18/24 10/23/24 Rx (3 mL) subcutaneous pen mL insulin glargine-yfgn 100 unit/mL 15 unit (0.15 mL) damico bcut DAILY #15 10/18/24 10/24/24 Rx (3 mL) subcutaneous pen mL metoprolol tartrate 50 mg tablet 50 mg PO BID #60 tabs 10/18/24 10/24/24 Rx metronidazole 500 mg tablet 500 mg PO Q8H #21 tabs 10/24/24 Rx pen needle, diabetic 29 gauge #100 ea 10/18/24 Unknown Rx oxycodone 5 mg tablet 5 mg PO Q8H PRN pain (scale score 10/19/24 Unknown Rx 7-10) 3 days #12 tabs empagliflozin 10 mg tablet 10 mg PO DAILY 10/24/24 History (Jardiance) warfarin 2.5 mg tablet 2.5 mg PO SUTUWETHFRSA blood 10/24/24 10/24/24 History thinner Allergy/AdvReac Type Severity Reaction Status Date / Time amlodipine Allergy Severe Rash Verified 10/24/24 11:05 Penicillins Allergy Hives Verified 10/24/24 11:05 azithromycin AdvReac Diarrhea Verified 10/24/24 11:05 celecoxib (From Celebrex) AdvReac RECTAL Verified 10/24/24 11:05
--- NOTE | 2024-10-24 11:17 | EX.ED.DYSGE1 ---
HPI History of Present Illness Chief Complaint: GI Bleed [facility] Medical History Type 2 diabetes mellitus Rash History of steroid therapy Tremor On home oxygen therapy COPD (chronic obstructive pulmonary disease) Hoarseness Chronic cough History of edema Normal Holter exam Hypertension Hyperbilirubinemia Transaminitis Thrombocytopenia Obesity Wears glasses Wears partial dentures Cancer Arthritis High cholesterol Tremor of both hands Ulcerated colon Shortness of breath on exertion Leg cramps History of stress test History of echocardiogram Cardiology follow-up encounter History of atrial fibrillation MGUS (monoclonal gammopathy 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 Ulcerative colitis Colitis Coagulopathy COVID-19 Anxiety Diabetes Former smoker CPAP (continuous positive airway pressure) dependence Sleep apnea Congestive heart failure (CHF) Atrial fibrillation 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, 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 Chronic diastolic heart failure Paroxysmal atrial flutter SOB (shortness of breath) Home Medications ?Medication ?Instructions ?Recorded ?Last Taken ?Type potassium chloride 20 mEq 20 meq PO DAILY Low potassium 09/27/15 10/06/24 History tablet,extended release(part/cryst) atorvastatin 40 mg tablet 40 mg PO QHS Cholesterol 08/20/16 10/23/24 History metformin 500 mg tablet 500 mg PO BID Diabetes 05/09/19 10/24/24 History fexofenadine 180 mg tablet 180 mg PO DAILY PRN Allergic 01/11/22 07/10/24 History Symptoms prazosin 2 mg capsule 2 mg PO BID bp 08/08/22 10/24/24 History vedolizumab 300 mg intravenous 300 mg IV .per order 03/21/23 07/10/24 History solution (Entyvio) flecainide 50 mg tablet 50 mg PO Q12H #180 TABLETS 11/16/23 10/24/24 Rx tiotropium 2.5 mcg-olodaterol 2.5 2 puff inhalation DAILY SOB #3 ea 04/22/24 10/24/24 Rx mcg/actuation mist for inhalation (Stiolto Respimat) prednisone 20 mg tablet 20 mg PO Q12H PRN COLON SYMPTOMS 09/27/24 10/24/24 History dicyclomine 20 mg tablet 20 mg PO TID 10/09/24 10/24/24 History ketoconazole 2 % shampoo 1 applic topical .COMPLEX 10/09/24 Unknown History cefdinir 300 mg capsule 300 mg PO BID 7 days #14 caps 10/18/24 10/24/24 Rx doxycycline monohydrate 100 mg 100 mg PO BID #14 caps 10/18/24 10/24/24 Rx capsule furosemide 40 mg tablet (Lasix) 40 mg PO DAILY #30 tabs 10/18/24 10/24/24 Rx insulin glargine-yfgn 100 unit/mL 8 unit (0.08 mL) subcut DINNER #15 10/18/24 10/23/24 Rx (3 mL) subcutaneous pen mL insulin glargine-yfgn 100 unit/mL 15 unit (0.15 mL) subcut DAILY #15 10/18/24 10/24/24 Rx (3 mL) subcutaneous pen mL metoprolol tartrate 50 mg tablet 50 mg PO BID #60 tabs 10/18/24 10/24/24 Rx metronidazole 500 mg tablet 500 mg PO Q8H #21 tabs 10/18/24 10/24/24 Rx pen needle, diabetic 29 gauge #100 ea 10/18/24 Unknown Rx oxycodone 5 mg tablet 5 mg PO Q8H PRN pain (scale score 10/19/24 Unknown Rx 7-10) 3 days #12 tabs empagliflozin 10 mg tablet 10 mg PO DAILY 10/24/24 10/24/24 History (Jardiance) warfarin 2.5 mg tablet 2.5 mg PO SUTUWETHFRSA blood 10/24/24 10/24/24 History thinner Allergy/AdvReac Type Severity Reaction Status Date / Time amlodipine Allergy Severe Rash Verified 10/24/24 11:05 Penicillins Allergy Hives Verified 10/24/24 11:05 azithromycin AdvReac Diarrhea Verified 10/24/24 11:05 celecoxib (From Celebrex) AdvReac RECTAL Verified 10/24/24 11:05 BLEEDING Family History Mother Colon cancer Heart disease Father CAD (coronary artery disease) Sister Diabetes Brother Heart disease Diabetes Surgical History History of ERCP History of intraocular lens implant History of knee surgery History of bilateral hip replacements History of radiofrequency ablation procedure for cardiac arrhythmia (~08/11/15) Social History household members: spouse Smoking Status: Former smoker how long ago did patient quit smokin + years alcohol intake: never substance use type: does not use caffeine: Yes Type: coffee Number of servings: 3 EXAM Physical Exam Const Vital Signs: 10/24/24 11:04 10/24/24 13:02 Temperature 97.6 F L Temperature Source Temporal Pulse Rate 59 L 53 L Respiratory Rate 16 16 Blood Pressure 120/82 H 115/78 Blood Pressure Mean 94 90 Pulse Ox 95 90 Oxygen Delivery Method Room Air [facility] Narrative Medical decision making narrative: HISTORY OF PRESENT ILLNESS: 79-year-old male. History of type 2 diabetes, CHF, COPD, hyperlipidemia, atrial fibrillation on warfarin, CKD, ulcerative colitis, sent to home health for dark stools for couple days. States he just darted antibiotics. REVIEW OF SYSTEMS: Pertinent positives: Dark stool Pertinent negatives: Lightheadedness PHYSICAL EXAM: Nursing triage notes reviewed, Vital signs reviewed Constitutional: please see mdm HENT: MMM Eyes: Pupils equal round and reactive to light, Extraocular muscles intact Neck: No stridor, no JVD, full neck ROM Lungs: Clear to auscultation, No wheezing or rales. No increased work of breathing, no conversational dyspnea, no accessory muscle use, no nasal flaring. 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 Intact sensation to light touch in all present extremities, 2+ reflexes bilateral patella tendons. Skin: Wound VAC noted over left groin wound, wound appears pink. No obvious white or yellow discharge. No warmth. No fluctuance or induration. MEDICAL DECISION MAKING: Chief Complaint: Dark stool External records reviewed: on warfarin Factors affecting care: none Social determinants of health: none History obtained from others: none Consults: Gastroenterology (Endocrine), internal medicine (Dr. Rich) MDM Narrative: The patient was initially hemodynamically stable, afebrile and nontoxic-appearing. Exam without focus of infection. Rectal exam without willie blood in stool. ALL IMAGES (IF OBTAINED) HAVE BEEN PERSONALLY REVIEWED AND INTERPRETED BY MYSELF. CBC with no leukocytosis, improved anemia from baseline, no thrombocytopenia INR supratherapeutic at 4.4 BMP without significant electrolyte normalities or new acute kidney injury Occult stool sample positive Given patient's age, dark stools, warfarin anticoagulation at a supratherapeutic I was concerned about a GI bleed. I reached out to the brush maker who noted the patient did not require emergent GI intervention. Spoke to the family and social work. Family was concerned the patient was not being able to care for himself adequately at home and was concerned about his overall debility and requested to be admitted. Discussed with hospitalist Dr. Power to agree to admit the patient for possible placement. The patient and/or family, caregivers express understanding. The patient and/or family, caregivers agrees with the plan. Shared decision making: I will have a discussion with the patient and or visitors regarding risk/benefits of further testing or admission. They will be made aware of of the risk/benefits inherent in this decision they will be given the opportunity to voice understanding. Total critical care time today provided was at least 0 minutes. This excludes separately billable procedures. Critical care time (if documented) is secondary to the patient having high probability of clinically significant/life threatening deterioration in the patient's condition which required my urgent intervention. Impression: 1. Acute GI bleed 2. Supratherapeutic INR 3. Debility Dispo: Admit to floor This note was generated with [employer] dictation software. It may contain incorrect words, spelling, and punctuation that were not noted in review of the chart prior to signing. Lab Data Labs: Laboratory Results - last 24 hr 10/24/24 11:40 WBC 14.2 H RBC 3.82 L Hgb 11.7 L Hct 36.7 L MCV 96.1 H MCH 30.6 MCHC 31.9 L RDW Std Deviation 51.6 H RDW Coeff of Jadon 14.8 H Plt Count 261 MPV 10.2 Immature Gran % (Auto) 1.800 H Neut % (Auto) 80.1 H Lymph % (Auto) 14.7 L [place] % (Auto) 2.9 Eos % (Auto) 0.3 Baso % (Auto) 0.2 Absolute Neuts (auto) 11.4 H Absolute Lymphs (auto) 2.09 Nucleated RBC % 0 PT 42.9 H INR 4.4 H* Sodium 139 Potassium 4.2 Chloride 106 Carbon Dioxide 19.4 L Anion Gap 14 BUN 35 H Creatinine 1.53 H Est GFR (MDRD) Non-Af 46 L BUN/Creatinine Ratio 22.6 H Glucose 219 H Calcium 8.2 Discharge Plan Triage Chief Complaint: GI Bleed ED Provider: Solis Owen Dx/Rx/DC Orders Primary Care Provider: Carrie Boyer
[2024-10-24 12:02] LABS: Absolute Lymphocyte Count 2.09 X10^3/uL (0.83-4.51); Absolute Neutrophil Count 11.4 X10^3/uL (2.0-7.7); Basophil# 0.03 X10^3/uL; Basophil% 0.2 % (0-1); Eosinophil# 0.04 X10^3/uL; Eosinophils% 0.3 % (0-5); Hematocrit 36.7 % (40-54); Hemoglobin 11.7 g/dL (13.0-16.5); Lymphocyte # 2.09 X10^3/ul (0.83-4.51); Lymphocyte % 14.7 % (19-41); Mean Corp Hgb Conc 31.9 g/dL (32-36); Mean Corpuscular Hgb 30.6 pg (27.0-32.0); Mean Corpuscular Volume 96.1 fL (80-94); Mean Platelet Vol. 10.2 fl (6.2-12.0); Monocyte# 0.41 X10^3/uL; Monocyte% 2.9 % (0-10); NRBC Flagged by Analyzer 0 % (0-5); Neutrophil # 11.35 X10^3/uL (2.7-7.7); Neutrophil % 80.1 % (47-70); Platelet Count 261 K/mm3 (150-450); RBC Distribution Width CV 14.8 % (11.6-14.6); RBC Distribution Width SD 51.6 fl (35.1-43.9); Red Blood Count 3.82 M/mm3 (4.6-6.2); White Blood Count 14.2 K/mm3 (4.4-11.0)
[2024-10-24 12:18] LABS: International Normalized Ratio 4.4; Prothrombin Time (Protime)PT. 42.9 SECONDS (11.7-14.9)
[2024-10-24 12:34] LABS: Anion Gap 14 (5-15); BUN 35 mg/dL (4-19); BUN/Creat Ratio 22.6 RATIO (10-20); Calcium,Total 8.2 mg/dL (7.6-11.0); Carbon Dioxide 19.4 mmol/L (21.0-32.0); Chloride 106 mmol/L (98-108); Creatinine, Serum 1.53 mg/dL (0.70-1.20); EST Glomerular Filtration Rate 46 (>60); Glucose 219 mg/dL (70-99); Potassium 4.2 mmol/L (3.3-5.1); Sodium Level 139 mmol/L (133-145)
--- NOTE | 2024-10-24 12:38 | ED.RN ---
PAGED DR ESTRADA
--- NOTE | 2024-10-24 12:41 | ED.RN ---
DR FRIEND CALLED BACK
--- NOTE | 2024-10-24 13:38 | HP.PCM.HOS_ITS ---
[facility] - General General Date of Admission: 10/24/24 Date of Service: 10/24/24 Chief Complaint: Started having darker stool for last couple days. Patient on warfarin. Has social issues of failure to thrive HPI Narrative AVELINA BULL, is a 79 M who was discharged on 10/18 after almost 2 weeks of hospital stay for necrotizing soft tissue infection of left thigh, heart failure exacerbation. This time he came to with darker stool for last couple days, he describes 2 times a day moderate amount, black tarry stool. Denies dizziness lightheadedness. Does not have increased shortness of breath or swelling more than his baseline. No chest pain. Denies abdominal pain. Patient has wound VAC in the left thigh and has difficulty in ambulation and taking care of himself therefore came to ED for further help. 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 Ulcerative colitis Colitis Coagulopathy COVID-19 Anxiety Diabetes Former smoker CPAP (continuous positive airway pressure) dependence Sleep apnea Congestive heart failure (CHF) Atrial fibrillation 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, 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 Chronic diastolic heart failure Paroxysmal atrial flutter Type 2 diabetes mellitus SOB (shortness of breath) Home Medications ?Medication ?Instructions ?Recorded ?Last Taken ?Type potassium chloride 20 mEq 20 meq PO DAILY Low potassiu m 09/27/15 10/06/24 History tablet,extended release(part/cryst) atorvastatin 40 mg tablet 40 mg PO QHS Cholesterol 10/23/24 History metformin 500 mg tablet 500 mg PO BID Diabetes 05/0910/24/24 History fexofenadine 180 mg tablet 180 mg PO DAILY PRN Allergi c 01/11/22 07/10/24 History Symptoms prazosin 2 mg capsule 2 mg PO BID bp 08/08/2210/06 History vedolizumab 300 mg intravenous 300 mg IV .per order 07/10/24 History solution (Entyvio) flecainide 50 mg tablet 50 mg PO Q12H #180 TABLETS 0 11/16/23 10/24/24 Rx tiotropium 2.5 mcg-olodaterol 2.5 2 puff inhalation DA RONEY SOB #3 ea 04/22/24 10/24/24 Rx mcg/actuation mist for inhalation (Stiolto Respimat) prednisone 20 mg tablet 20 mg PO Q12H PRN COLON SYMP TOMS 09/27/24 10/24/24 History dicyclomine 20 mg tablet 20 mg PO TID 10/09/24 History ketoconazole 2 % shampoo 1 applic topical .COMPLEX Unknown History cefdinir 300 mg capsule 300 mg PO BID 7 days #14 cap s 10/18/24 10/24/24 Rx doxycycline monohydrate 100 mg 100 mg PO BID #14 caps 10/18/24 10/24/24 Rx capsule furosemide 40 mg tablet (Lasix) 40 mg PO DAILY #30 tab s 10/18/24 10/24/24 Rx insulin glargine-yfgn 100 unit/mL 8 unit (0.08 mL) sub cut DINNER #15 10/18/24 10/23/24 Rx (3 mL) subcutaneous pen mL insulin glargine-yfgn 100 unit/mL 15 unit (0.15 mL) damico bcut DAILY #15 10/18/24 10/24/24 Rx (3 mL) subcutaneous pen mL metoprolol tartrate 50 mg tablet 50 mg PO BID #60 tabs 10/18/24 10/24/24 Rx metronidazole 500 mg tablet 500 mg PO Q8H #21 tabs 10/24/24 Rx pen needle, diabetic 29 gauge #100 ea 10/18/24 Unknown Rx oxycodone 5 mg tablet 5 mg PO Q8H PRN pain (scale score 10/19/24 Unknown Rx 7-10) 3 days #12 tabs empagliflozin 10 mg tablet 10 mg PO DAILY 10/24/24 History (Jardiance) warfarin 2.5 mg tablet 2.5 mg PO SUTUWETHFRSA blood 10/24/24 10/24/24 History thinner Allergy/AdvReac Type Severity Reaction Status Date / Time amlodipine Allergy Severe Rash Verified 10/24/24 11:05 Penicillins Allergy Hives Verified 10/24/24 11:05 azithromycin AdvReac Diarrhea Verified 10/24/24 11:05 celecoxib (From Celebrex) AdvReac RECTAL Verified 10/24/24 11:05 BLEEDING Family History Mother Colon cancer Heart disease Father CAD (coronary artery disease) Sister Diabetes Brother Heart disease Diabetes Surgical History History of ERCP History of intraocular lens implant History of knee surgery History of bilateral hip replacements History of radiofrequency ablation procedure for cardiac arrhythmia (~08/11/15) Social History household members: spouse Smoking Status: Former smoker how long ago did patient quit smokin + years alcohol intake: never substance use type: does not use caffeine: Yes Type: coffee Number of servings: 3 ROS ROS Narrative Constitutional: Reports fatigue and weakness. No fever. HEENT: Reports systems reviewed and no addt'l complaints, except as documented Respiratory/Chest: No acute shortness of breath or respiratory distress or wheezing. Chronic shortness of breath on exertion CVS: No chest pressure pain. Gastrointestinal: Denies coffee ground emesis, hematemesis or vomiting Genitourinary: Denies burning urination or new urinary tract symptoms Musculoskeletal: Mild bilateral lower extremity edema, chronic denies acute joint pain or limited range of motion. No acute injury Neurologic: Denies seizure-like symptoms. skin: Wound VAC on left upper thigh. Endocrinology: Reports systems reviewed and no addt'l complaints, except as documented Hematologic/Lymphatic: Reports systems reviewed and no addt'l complaints, except as documented Rest 14 ROS are negative except as mentioned in HPI Vital Signs Vital Signs Vital Signs: 10/24/24 11:04 10/24/24 13:02 10/24/24 13:25 Temperature 97.6 F L 98.3 F Temperature Source Temporal Pulse Rate 59 L 53 L 53 L Respiratory Rate 16 16 16 Blood Pressure 120/82 H 115/78 115/78 Blood Pressure Mean 94 90 90 Pulse Ox 95 90 90 Oxygen Delivery Method Room Air 10/24/24 13:26 Temperature 98.3 F Temperature Source Oral Pulse Rate 53 L Respiratory Rate 19 H Blood Pressure 118/79 Blood Pressure Mean 92 Pulse Ox 90 Oxygen Delivery Method Room Air Physical Exam Narrative General: Alert, Oriented x3, Cooperative. Morbid obesity BMI 42.7 kg/m? HEENT: Atraumatic, PERRLA, EOMI, Normocephalic Oral: Deep oropharyngeal structures could not be visualized. Neck: Thick white neck. JVD not discernible. Supple, Negative Carotid Bruits Chest wall/Lungs: Air entry diminished in bilateral lungs. No crepitations or rhonchi. Cardiovascular: Regular rate, Regular Rhythm, Normal S1, Normal S2, soft systolic murmur Abdomen: Bowel Sounds Present, Soft, Non Tender, Non-Distended, large pelvic pannus : No dysuria. No renal angle tenderness. No suprapubic tenderness. Extremities: Bilateral 2+ pitting edema from knee downwards. Capillary Refill Less than 3 Seconds Skin: Left upper thigh wound VAC. No acute tenderness in surrounding area or redness or features of cellulitis. Venous hypertensive changes in lower legs and chronic soft tissue hypertrophy Musculoskeletal: No Tenderness to Palpation of Joints or Extremities. Bilateral hip replacement. ROM restricted Neurological: Cranial nerves II-XII grossly intact, DTR 2+/4. No acute focal neurological deficit. Psych/Mental Status: flat affect Results Lab / Micro Data 10/24/24 11:40 10/24/24 11:40 Labs: Laboratory Results - last 24 hr 10/24/24 11:40: WBC 14.2 H, RBC 3.82 L, Hgb 11.7 L, Hct 36.7 L, MCV 96.1 H, MCH 30.6, MCHC 31.9 L, RDW Std Deviation 51.6 H, RDW Coeff of Jadon 14.8 H, Plt Count 261, MPV 10.2, Immature Gran % (Auto) 1.800 H, Neut % (Auto) 80.1 H, Lymph % (Auto) 14.7 L, Morrill % (Auto) 2.9, Eos % (Auto) 0.3, Baso % (Auto) 0.2, Absolute Neuts (auto) 11.4 H, Absolute Lymphs (auto) 2.09, Nucleated RBC % 0, PT 42.9 H, INR 4.4 H*, Sodium 139, Potassium 4.2, Chloride 106, Carbon Dioxide 19.4 L, Anion Gap 14, BUN 35 H, Creatinine 1.53 H, Est GFR (MDRD) Non-Af 46 L, B UN/Creatinine Ratio 22.6 H, Glucose 219 H, Calcium 8.2 Micro: Microbiology 10/24/24 11:40 Stool Stool Occult Blood (DANIELLE) - Final Occult Blood Positive Assessment & Plan Assessment/Plan (1) GI bleed: (2) Failure to thrive: PLAN: Plan This 79-year-old gentleman was admitted with dark/black tarry stool for last couple days and failure to thrive 1. Mild GI bleed most likely upper GI tract with history of chronic anemia: H&H 11.7/36.7%. Platelet count 261K. Baseline creatinine is between 10 to 11 g%. Hemodynamically, blood pressure and heart rate in normal range. Does not need acute EGD/intervention discussed with Dr. Gorman. Patient also has elevated INR. Managed conservatively with monitoring H&H 2. Recent necrotizing soft tissue of left upper thigh/groin region: Patient had debridement and excision of wound and wound VAC placement on October 16, changed on 10/18 before discharge.Patient was discharged on 1 week of doxycycline 100 mg twice daily, cefdinir twice daily and Medrol 5 mg 3 times daily from 10/18. Ideally, will complete tomorrow 10/25/2024. Wound nurse consulted for change of wound VAC. 3. Chronic HFpEF: 2D echo from 10/10 shows EF 65% mild LVH. Bicarb 19. Increase home dose furosemide 40 mg once daily to twice daily. Monitor kidney function and electrolytes. Continue home cardiac medications 2D echo: Mild 01/24/2025 interpretation Summary Mild concentric left ventricular hypertrophy. The left ventricular ejection fraction is 65 %. Stage 1 diastolic dysfunction. There is moderate biatrial dilatation. 4 .PAF/flutter: Heart rate is controlled. INR supratherapeutic, 4.4. On flecainide continued. Hold warfarin. EKG ordered 5. Diabetes mellitus type II: Hold oral home regimen, ADA diet, Accu-Chek before meals and at bedtime with Humalog sliding scale coverage and hypoglycemia protocol. Discontinue Jardiance as patient had necrotizing fasciitis. Continue Lantus. 6. Hypertension: Continue home regimen including metoprolol, IV Lasix, with holding parameters 7. Hyperlipidemia: Continue home statin regimen. Fasting profile on 10/13 shows LDL 32, HDL 30. Triglyceride 121. Normal range 8. COPD: Continue oxygen. DuoNeb nebulization as needed. Incentive spirometry. 9. Chronic Kidney Disease Stage IIIB: Admission BUN/Cr 35/1.53 baseline renal function primarily 1.0?1.20. Creatinine went up from 1.34-1.53. Patient legs is more swollen therefore diuretic dose increased. 10. Morbid obesity: BMI 42.7 kg/m?. Alignment Specialist consult. Weight loss and lifestyle changes encouraged 11. Ulcerative colitis: Follows Dr. Gorman with history of Entyvio in distant past 12. DVT prophylaxis, supratherapeutic INR therefore will hold warfarin. Bilateral SCDs Living will/advanced directive/end of life care: Patient does have living will or advanced directive. His is power of attorney general for health. His nephew is also close and present in the room. Patient said he will changes his power of attorney general felt from to his nephew. After discussion of benefits/risks procedures involved with full code, DNR CC arrest and DNR CC, the patient opted for full code. Patient does want artificial life support including intubation, tube feed, ventilator and/chest compression, central venous catheter, vasopressor and DC shock if needed Total time spent in [id number] encounter in discussion of advanced directive 17 minutes. Microbiology Past 72 Hours 10/24/24 11:40 Stool Stool Occult Blood (DANIELLE) - Final Occult Blood Positive Laboratory Results 10/24/24 11:40: WBC 14.2 H, RBC 3.82 L, Hgb 11.7 L, Hct 36.7 L, MCV 96.1 H, MCH 30.6, MCHC 31.9 L, RDW Std Deviation 51.6 H, RDW Coeff of Jadon 14.8 H, Plt Count 261, MPV 10.2, Immature Gran % (Auto) 1.800 H, Neut % (Auto) 80.1 H, Lymph % (Auto) 14.7 L, Morrill % (Auto) 2.9, Eos % (Auto) 0.3, Baso % (Auto) 0.2, Absolute Neuts (auto) 11.4 H, Absolute Lymphs (auto) 2.09, Nucleated RBC % 0, PT 42.9 H, INR 4.4 H*, Sodium 139, Potassium 4.2, Chloride 106, Carbon Dioxide 19.4 L, Anion Gap 14, BUN 35 H, Creatinine 1.53 H, Est GFR (MDRD) Non-Af 46 L, B UN/Creatinine Ratio 22.6 H, Glucose 219 H, Calcium 8.2 10/24/24 11:59: Magnesium 1.3 L 10/24/24 14:20: POC Glucose 238 H 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 #14. SILVER: CPAP nightly. Charges/Coding Visit Charges Inpatient E&M: 87473 Init Hosp L3 Procedures Hospitalists Procedures: 07099 Advncd Care Plan 30 Min
[2024-10-24] MEDS: Insulin Lispro 100 UNIT/ML INSULN.PEN SC ×3 (14:31→22:27)
[2024-10-24] MEDS: Acetaminophen 325 MG Tablet 650 MG PO (14:38)
[2024-10-24 14:42] LABS: Bedside Glucose 238 mg/dL (74-106)
[2024-10-24 15:06] LABS: Magnesium 1.3 mg/dL (1.5-2.2)
--- NOTE | 2024-10-24 15:08 | CASEMGMT ---
Discharge Planning A list of?SNF providers including quality and resource use data and consistent with the patient's preferred geographic region, medical needs, and insurance network was created in [employer] Guide.? This list was provided to the SW. Doris Sparks Discharge Planning Asst.
[2024-10-24] MEDS: oxyCODONE 5 MG Tablet PO (15:12)
--- NOTE | 2024-10-24 15:31 | EKG12_ITS ---
Test Reason : AFIB Blood Pressure : */* mmHG Vent. Rate : 64 BPM Atrial Rate : * BPM P-R Int : * ms QRS Dur : 86 ms QT Int : 436 ms P-R-T Axes : * -21 -1 degrees QTcB Int : 449 ms Atrial fibrillation Low voltage QRS Cannot rule out Anterior infarct , age undetermined Abnormal ECG When compared with ECG of 09-Oct-2024 15:40, Atrial fibrillation has replaced Atrial flutter Confirmed by CRISTIANE VILLEDA, ANIYA ([id number]), book or script editor NEDA JIN ([id number]) on 10/28/2024 7:32:36 AM Referred By: Confirmed By: ANIYA SAUER MD
--- NOTE | 2024-10-24 16:08 | WOUNDNOTE ---
wound photo: left upper thigh/groin
--- NOTE | 2024-10-24 16:24 | CASEMGMT ---
Social Work SW received hand off from ED SW and met with pt and his nephew Alvin Ash. Pt was discharged home on 10/18 and states that he did not do well while at home and does not feel he can return home at this time and that his is not safe to stay home alone due to dementia. Pt is requesting SNF placement and would like his to be placed at the same facility for a respite stay. Pt and nephew made aware that pt's will be private pay at facility. Due to dementia, and 's liklihood of wandering, she may benefit from a dementia unit. A list of SNF providers including quality and resource use data and consistent with the patient?s preferred geographic region, medical needs, and insurance network were provided from the [employer] Guide. Pt and nephew reviewed list and preferred provider is [facility]. DC assistant manager bilingual notified and to make referral to [facility] for pt and also notify them of need for respite stay for pt . Pt is also requesting HCPOA be redone. Pt and nephew to discuss HCPOA appointees and will obtain addresses and phone numbers. SW to follow up tomorrow for discharge planning and advance care planning. NOEL Callahan
[2024-10-24] MEDS: 0.9% Saline Lock 10 ML Syringe IV ×2 (16:25→22:31)
[2024-10-24] MEDS: Magnesium Sulfate 2 GM in Dextrose 5%-Water (100mL Bag) 100 ML IV (16:25)
[2024-10-24] MEDS: Furosemide 20 MG/2 ML VIAL IV (16:28)
[2024-10-24] MEDS: Cefdinir 300 MG Capsule PO ×2 (16:31→22:29)
[2024-10-24] MEDS: Insulin Lispro 100 UNIT/ML INSULN.PEN 8 UNIT SC (16:38)
[2024-10-24] MEDS: Insulin Glargine-YFGN 100 UNIT/ML Pen 10 UNIT SC (16:39)
--- NOTE | 2024-10-24 16:39 | CM.ED ---
Social Work HOLLI received a voicemail from [facility] Julieth, who stated that patient has been receiving home health services but family has been calling and needing assistance multiple times a day. Julieth expressed that she and family had discussed possibility of a SNF stay and that patient would be coming to the ER. SW met with patient and nephew Alvin, both stating that patient was requiring more care than able to be provided at home and they were interested in a rehab stay. Patient and nephew also voiced concerns that patients is not able to stay home by herself and that she would need a respite stay wherever patient is placed. SW educated patient and family on SNF placement and potential costs. Patient and nephew expressed understanding, both would like nephew contacted with updates at [phone]. No further needs identified at this time. Francisca Huerta, TOURIST [employer], GENERAL LEDGER BOOKKEEPER
--- NOTE | 2024-10-24 16:45 | CM.ED ---
Social Work Julieth from [facility] notified that patient was admitted and was asking for a short term rehab stay. Francisca Huerta, MACHINE UMBRELLA TIPPER, OFFSHORING MANAGER
[2024-10-24 17:04] LABS: Bedside Glucose 287 mg/dL (74-106)
[2024-10-24 20:36] LABS: Hematocrit 34.8 % (40-54); Hemoglobin 11.1 g/dL (13.0-16.5)
[2024-10-24] MEDS: Dicyclomine 10 MG Capsule 20 MG PO (22:28)
[2024-10-24] MEDS: Atorvastatin Calcium 40 MG Tablet PO (22:28)
[2024-10-24] MEDS: metroNIDAZOLE 500 MG Tablet PO (22:28)
[2024-10-24] MEDS: Doxycycline 100 MG CAPSULE PO (22:29)
[2024-10-24] MEDS: Prazosin HCl 1 MG Capsule 2 MG PO (22:29)
[2024-10-24] MEDS: Flecainide 100 MG Tablet 50 MG PO (22:30)
[2024-10-24 22:56] LABS: Bedside Glucose 248 mg/dL (74-106)
[2024-10-24] MEDS: Metoprolol Tartrate 50 MG Tablet PO (23:18)
[2024-10-25] VITALS (12 sets, daily range): BP systolic 108–126; BP diastolic 40–49; PULSE 47–81; RESP 16–22; TEMP 36.3–37.1; O2SAT 93–96; BMI 42.8
[2024-10-25 04:43] LABS: Absolute Lymphocyte Count 3.61 X10^3/uL (0.83-4.51); Absolute Neutrophil Count 7.8 X10^3/uL (2.0-7.7); Basophil# 0.03 X10^3/uL; Basophil% 0.2 % (0-1); Eosinophil# 0.05 X10^3/uL; Eosinophils% 0.4 % (0-5); Hematocrit 33.7 % (40-54); Hemoglobin 10.8 g/dL (13.0-16.5); Lymphocyte # 3.61 X10^3/ul (0.83-4.51); Lymphocyte % 29.1 % (19-41); Mean Corpuscular Hgb 30.4 pg (27.0-32.0); Mean Corpuscular Volume 94.9 fL (80-94); Mean Platelet Vol. 10.1 fl (6.2-12.0); Monocyte# 0.66 X10^3/uL; Monocyte% 5.3 % (0-10); NRBC Flagged by Analyzer 0 % (0-5); Neutrophil # 7.83 X10^3/uL (2.7-7.7); Neutrophil % 63.2 % (47-70); Platelet Count 232 K/mm3 (150-450); RBC Distribution Width CV 14.6 % (11.6-14.6); RBC Distribution Width SD 51.1 fl (35.1-43.9); Red Blood Count 3.55 M/mm3 (4.6-6.2); White Blood Count 12.4 K/mm3 (4.4-11.0)
[2024-10-25 05:07] LABS: Anion Gap 12 (5-15); BUN 33 mg/dL (4-19); BUN/Creat Ratio 23.9 RATIO (10-20); Calcium,Total 7.9 mg/dL (7.6-11.0); Carbon Dioxide 19.3 mmol/L (21.0-32.0); Chloride 107 mmol/L (98-108); Creatinine, Serum 1.37 mg/dL (0.70-1.20); EST Glomerular Filtration Rate 53 (>60); Estimated Creatinine Clearance 59.66 ml/min (50-250); Glucose 200 mg/dL (70-99); Magnesium 1.9 mg/dL (1.5-2.2); Sodium Level 139 mmol/L (133-145)
[2024-10-25 05:10] LABS: Prothrombin Time (Protime)PT. 46.3 SECONDS (11.7-14.9)
[2024-10-25 05:12] LABS: International Normalized Ratio 4.8
[2024-10-25] MEDS: Dicyclomine 10 MG Capsule 20 MG PO ×3 (06:51→20:21)
[2024-10-25] MEDS: metroNIDAZOLE 500 MG Tablet PO ×3 (06:52→20:22)
[2024-10-25 07:17] LABS: Bedside Glucose 160 mg/dL (74-106)
--- NOTE | 2024-10-25 08:11 | CASEMGMT ---
Discharge Planning Referral sent to [facility]. Doris Sparks DC Planning Asst.
[2024-10-25] MEDS: Insulin Lispro 100 UNIT/ML INSULN.PEN SC (08:15)
[2024-10-25] MEDS: Insulin Lispro 100 UNIT/ML INSULN.PEN 8 UNIT SC ×3 (08:15→15:54)
[2024-10-25] MEDS: Cefdinir 300 MG Capsule PO ×2 (08:18→20:22)
[2024-10-25] MEDS: Potassium Chloride Oral Tablet 20 MEQ PO (08:19)
[2024-10-25] MEDS: Flecainide 100 MG Tablet 50 MG PO ×2 (08:20→20:25)
[2024-10-25] MEDS: Doxycycline 100 MG CAPSULE PO ×2 (08:20→20:21)
--- NOTE | 2024-10-25 10:58 | CASEMGMT ---
Social Work [facility] is able to accept pt and pt's . Precert to be started for pt today. met with pt nephew Alvin and informed of this. Alvin states family contact who is helping with placement for pt's is niece Susan Montes ([phone]). SW passed this information on to [facility]. SW met with pt and and his . SW updated pt that [facility] has accepted and that precert will be started today. Pt is agreeable to this. SW assisted pt in completing a new HCPOA. Pt naming his brother Enrique Oshea as primary HCPOA and nephew Alvin Ash as secondary. Original given to pt and copy placed on pt chart. Pt states he has completed a living will previously. Plan: [facility], pending precert NOEL Callahan
--- NOTE | 2024-10-25 11:00 | CASEMGMT ---
[facility] has accepted and has submitted for precert. Doris Sparks DC Planning Asst.
[2024-10-25 11:55] LABS: Bedside Glucose 143 mg/dL (74-106)
--- NOTE | 2024-10-25 12:12 | PCM.PN.HOSP ---
Reason for Visit Reason for Visit: Diagnoses Gastrointestinal hemorrhage, unspecified (10/24/24) Objective Data Objective Data Vital Signs: Vital Signs Temp Pulse Resp BP Pulse Ox O2 Del Method FiO2 97.6 F L 54 L 18 121/47 H 95 Room Air 21 10/25/24 11:37 10/25/24 11:37 10/25/24 11:37 10/25/24 11:37 10/25/24 11:37 10/25/24 11:37 10/25/24 02:46 Oxygen Delivery Method Room Air Weight: 289 lb 7.471 oz Body Mass Index (BMI) 42.8 Intake & Output: Intake and Output for Last 24 Hours 10/23/24 10/24/24 10/25/24 23:59 23:59 23:59 Intake Total 104 / 104 100 / 100 Output Total 450 / 450 650 / 650 Balance -346 / -346 -550 / -550 Lab / Micro Data 10/25/24 03:50 10/25/24 03:50 Labs: Laboratory Results - last 24 hr 10/24/24 11:40: PT 42.9 H, INR 4.4 H*, Sodium 139, Potassium 4.2, Chloride 106, Carbon Dioxide 19.4 L, Anion Gap 14, BUN 35 H, Creatinine 1.53 H, Est GFR (MDRD) Non-Af 46 L, BUN/Creatinine Ratio 22.6 H, Glucose 219 H, Calcium 8.2 10/24/24 11:59: Magnesium 1.3 L 10/24/24 14:20: POC Glucose 238 H 10/24/24 16:36: POC Glucose 287 H 10/24/24 20:26: Hgb 11.1 L, Hct 34.8 L 10/24/24 22:26: POC Glucose 248 H 10/25/24 03:50: WBC 12.4 H, RBC 3.55 L, Hgb 10.8 L, Hct 33.7 L, MCV 94.9 H, MCH 30.4, MCHC 32.0, RDW Std Deviation 51.1 H, RDW Coeff of Jadon 14.6, Plt Count 232, MPV 10.1, Immature Gran % (Auto) 1.800 H, Neut % (Auto) 63.2, Lymph % (Auto) 29.1, Wilkin % (Auto) 5.3, Eos % (Auto) 0.4, Baso % (Auto) 0.2, Absolute Neuts (auto) 7.8 H, Absolute Lymphs (auto) 3.61, Nucleated RBC % 0, PT 46.3 H, INR 4.8 H*, Sodium 139, Potassium 4.0, Chloride 107, Carbon Dioxide 19.3 L, Anion Gap 12, BUN 33 H, Creatinine 1.37 H, Estim Creat Clear Calc 59.66, Est GFR (MDRD) Non-Af 53 L, BUN/Creatinine Ratio 23.9 H, Glucose 200 H, Calcium 7.9, Magnesium 1.9 10/25/24 06:46: POC Glucose 160 H 10/25/24 10:58: POC Glucose 143 H Micro: Microbiology 10/24/24 11:40 Stool Stool Occult Blood (DANIELEL) - Final Occult Blood Positive Physical Exam Narrative Patient did not had any further black stools or hematochezia GI bleed. Respiratory status/SOB at baseline with history of heart failure and COPD. INRs supratherapeutic. Wound VAC was changed yesterday Physical exam: General: Alert, Oriented x3, Cooperative. Morbid obesity BMI 42.7 kg/m? HEENT: Atraumatic, PERRLA, EOMI, Normocephalic Oral: Deep oropharyngeal structures could not be visualized. Neck: Thick white neck. JVD not discernible. Supple, Negative Carotid Bruits Chest wall/Lungs: Air entry diminished in bilateral lungs. Mild chronic rhonchi. Cardiovascular: Regular rate, Regular Rhythm, Normal S1, Normal S2, soft systolic murmur Abdomen: Bowel Sounds Present, Soft, Non Tender, Non-Distended, large pelvic pannus : No dysuria. No renal angle tenderness. No suprapubic tenderness. Extremities: Bilateral 2+ pitting edema from knee downwards. Capillary Refill Less than 3 Seconds Skin: Left upper thigh wound VAC. Chronic venous hypertensive changes in lower legs and chronic soft tissue hypertrophy Musculoskeletal: No Tenderness to Palpation of Joints or Extremities. Bilateral hip replacement. ROM restricted Neurological: Cranial nerves II-XII grossly intact, DTR 2+/4. No acute focal neurological deficit. Psych/Mental Status: flat affect Assessment & Plan Assessment/Plan (1) GI bleed: (2) Failure to thrive: PLAN: Plan This 79-year-old gentleman was admitted with dark/black tarry stool for last couple days and failure to thrive 1. Mild GI bleed most likely upper GI tract with history of chronic anemia: H&H 11.7/36.7%. Platelet count 261K. Baseline creatinine is between 10 to 11 g%. Hemodynamically, blood pressure and heart rate in normal range. Does not need acute EGD/intervention discussed with Dr. Gorman. Patient also has elevated INR. Managed conservatively with monitoring H&H 10/25: Stool for occult blood positive. H&H on baseline 10.8/33.7%. Discussed with the patient and email marketing assistant. Outpatient is scheduled EGD. Continue PPI. 2. Recent necrotizing soft tissue of left upper thigh/groin region: Patient had debridement and excision of wound and wound VAC placement on October 16, changed on 10/18 before discharge.Patient was discharged on 1 week of doxycycline 100 mg twice daily, cefdinir twice daily and Medrol 5 mg 3 times daily from 10/18. Ideally, will complete tomorrow 10/25/2024. Wound nurse consulted for change of wound VAC. 10/25: Wound VAC was changed yesterday. 3. Chronic HFpEF: 2D echo from 10/10 shows EF 65% mild LVH. Bicarb 19. Increase home dose furosemide 40 mg once daily to twice daily from tomorrow. Lasix 20 mg IV 1 dose ordered. Monitor kidney function and electrolytes. Continue home cardiac medications 2D echo: Mild 01/24/2025 interpretation Summary Mild concentric left ventricular hypertrophy. The left ventricular ejection fraction is 65 %. Stage 1 diastolic dysfunction. There is moderate biatrial dilatation. 10/25 continue Lasix, furosemide his home dose. 4 .PAF/flutter: Heart rate is controlled. INR supratherapeutic, 4.4. On flecainide continued. Hold warfarin. EKG ordered 5. Diabetes mellitus type II: Hold oral home regimen, ADA diet, Accu-Chek before meals and at bedtime with Humalog sliding scale coverage and hypoglycemia protocol. Discontinue Jardiance as patient had necrotizing fasciitis. Continue Lantus. 6. Hypertension: Continue home regimen including metoprolol, IV Lasix, with holding parameters 7. Hyperlipidemia: Continue home statin regimen. Fasting profile on 10/13 shows LDL 32, HDL 30. Triglyceride 121. Normal range 8. COPD: Continue oxygen. DuoNeb nebulization as needed. Incentive spirometry. 10/25: Patient on Stilto inhaler at home, can use home inhaler. 9. Chronic Kidney Disease Stage IIIB: Admission BUN/Cr 35/1.53 baseline renal function primarily 1.0?1.20. Creatinine went up from 1.34-1.53. Patient legs is more swollen therefore diuretic dose increased. 10. Morbid obesity: BMI 42.7 kg/m?. Transitions Rn Care Coordinator consult. Weight loss and lifestyle changes encouraged 11. Ulcerative colitis: Follows . Friend with history of Entyvio in distant past 12. DVT prophylaxis, supratherapeutic INR therefore will hold warfarin. Bilateral SCDs 13. Obstructive sleep apnea on CPAP Living will/advanced directive/end of life care: Patient does have living will or advanced directive. His is power of lard renderer for health. His nephew is also close and present in the room. Patient said he will changes his power of lard renderer felt from to his nephew. After discussion of benefits/risks procedures involved with full code, DNR CC arrest and DNR CC, the patient opted for full code. Patient does want artificial life support including intubation, tube feed, ventilator and/chest compression, central venous catheter, vasopressor and DC shock if needed Microbiology Past 72 Hours 10/24/24 11:40 Stool Stool Occult Blood (DANIELLE) - Final Occult Blood Positive Laboratory Results 10/24/24 11:40: PT 42.9 H, INR 4.4 H*, Sodium 139, Potassium 4.2, Chloride 106, Carbon Dioxide 19.4 L, Anion Gap 14, BUN 35 H, Creatinine 1.53 H, Est GFR (MDRD) Non-Af 46 L, BUN/Creatinine Ratio 22.6 H, Glucose 219 H, Calcium 8.2 10/24/24 11:59: Magnesium 1.3 L 10/24/24 14:20: POC Glucose 238 H 10/24/24 16:36: POC Glucose 287 H 10/24/24 20:26: Hgb 11.1 L, Hct 34.8 L 10/24/24 22:26: POC Glucose 248 H 10/25/24 03:50: WBC 12.4 H, RBC 3.55 L, Hgb 10.8 L, Hct 33.7 L, MCV 94.9 H, MCH 30.4, MCHC 32.0, RDW Std Deviation 51.1 H, RDW Coeff of Jadon 14.6, Plt Count 232, MPV 10.1, Immature Gran % (Auto) 1.800 H, Neut % (Auto) 63.2, Lymph % (Auto) 29.1, Wilkin % (Auto) 5.3, Eos % (Auto) 0.4, Baso % (Auto) 0.2, Absolute Neuts (auto) 7.8 H, Absolute Lymphs (auto) 3.61, Nucleated RBC % 0, PT 46.3 H, INR 4.8 H*, Sodium 139, Potassium 4.0, Chloride 107, Carbon Dioxide 19.3 L, Anion Gap 12, BUN 33 H, Creatinine 1.37 H, Estim Creat Clear Calc 59.66, Est GFR (MDRD) Non-Af 53 L, BUN/Creatinine Ratio 23.9 H, Glucose 200 H, Calcium 7.9, Magnesium 1.9 10/25/24 06:46: POC Glucose 160 H 10/25/24 10:58: POC Glucose 143 H Charges/Coding Visit Charges Inpatient E&M: 48103 Subs Hosp L2
[2024-10-25] MEDS: Furosemide 40 MG Tablet PO (13:18)
[2024-10-25] MEDS: Pantoprazole Sodium 40 MG Tablet PO ×2 (13:22→20:22)
[2024-10-25] MEDS: Ipratropium/Albuterol Sulfate 3 ML AMPUL.NEB INHALATION ×2 (13:45→19:55)
--- NOTE | 2024-10-25 13:53 | NURSING ---
new orders received
--- NOTE | 2024-10-25 14:42 | CASEMGMT ---
MYRNA GIRALDO readmission note: Index admission: Admitted 10/09 w/HF Exac. Pt w/hx of Type 2 DM. Pt also w/abscess of lt thigh. Pt had I& D w/debridement w/Dr Johnson and Dr Aguero 10/11. Then had further escision of lt thigh wound and wound VAC placement 10/16. Vac changed 10/18. Pt lives w/his , who has dementia. Pt preferred to dc home w/[facility] on index admission, declined wanting to go to SNF. Nephew involved in pt's care and stated was able to take pt to appts and other appts as needed. DC'd home w/[facility] 10/18 for SN for wound vac care/dsg changes, PT, & OT. Pt to f/u @ w/Dr Aguero's on Mondays for vac dsg change and [facility] to see pt Mon's and Mon's for vac dsg changes. Current admission: Admitted 10/24 w/dx of debility. Pt was receiving [facility] services but family having difficulty managing pt and vac @ home, having to call [facility] multiple times a day for assistance. Pt requiring more care than able to be provided @ home and pt and family interested in pt going to SNF. See ED SW notes and Irina DE LA GARZA, notes. Plan: SNF Inga POLK RN, CM
--- NOTE | 2024-10-25 14:50 | CASEMGMT ---
Social Work PASRR completed in [facility] for SNF placement. Pt will need precert prior to discharge to [facility]. Green sheet on the chart in the event precert is obtained over the weekend. Plan: [facility], pending precert NOEL Callahan
--- NOTE | 2024-10-25 14:59 | CASEMGMT ---
CC asked to call unit if precert is rec'd over the weekend. Greensheet and transport form placed on chart. Doris Sparks DC Planning Asst
[2024-10-25] MEDS: Metoprolol Tartrate 25 MG Tablet PO (15:53)
[2024-10-25] MEDS: Insulin Glargine-YFGN 100 UNIT/ML Pen 10 UNIT SC (15:57)
[2024-10-25 16:17] LABS: Bedside Glucose 137 mg/dL (74-106)
--- NOTE | 2024-10-25 16:49 | NURSING ---
This Rn took over care for this pt at this time.
[2024-10-25] MEDS: Atorvastatin Calcium 40 MG Tablet PO (20:21)
[2024-10-25] MEDS: Prazosin HCl 1 MG Capsule 2 MG PO (20:22)
[2024-10-25 20:58] LABS: Bedside Glucose 138 mg/dL (74-106)
[2024-10-26] VITALS (9 sets, daily range): BP systolic 108–135; BP diastolic 46–62; PULSE 58–71; RESP 16–20; TEMP 36.6–37; O2SAT 94–98; BMI 42.8
[2024-10-26 05:57] LABS: Absolute Lymphocyte Count 3.16 X10^3/uL (0.83-4.51); Absolute Neutrophil Count 6.4 X10^3/uL (2.0-7.7); Basophil# 0.06 X10^3/uL; Basophil% 0.6 % (0-1); Eosinophils% 1.9 % (0-5); Hematocrit 34.5 % (40-54); Hemoglobin 11.1 g/dL (13.0-16.5); Lymphocyte # 3.16 X10^3/ul (0.83-4.51); Lymphocyte % 30.1 % (19-41); Mean Corp Hgb Conc 32.2 g/dL (32-36); Mean Corpuscular Hgb 30.8 pg (27.0-32.0); Mean Corpuscular Volume 95.8 fL (80-94); Mean Platelet Vol. 10.2 fl (6.2-12.0); Monocyte# 0.53 X10^3/uL; NRBC Flagged by Analyzer 0.2 % (0-5); Neutrophil # 6.36 X10^3/uL (2.7-7.7); Neutrophil % 60.5 % (47-70); Platelet Count 212 K/mm3 (150-450); RBC Distribution Width CV 14.9 % (11.6-14.6); White Blood Count 10.5 K/mm3 (4.4-11.0)
[2024-10-26 06:18] LABS: Anion Gap 11 (5-15); BUN 24 mg/dL (4-19); BUN/Creat Ratio 16.5 RATIO (10-20); Calcium,Total 7.7 mg/dL (7.6-11.0); Carbon Dioxide 21.3 mmol/L (21.0-32.0); Chloride 108 mmol/L (98-108); Creatinine, Serum 1.44 mg/dL (0.70-1.20); EST Glomerular Filtration Rate 50 (>60); Estimated Creatinine Clearance 56.77 ml/min (50-250); Glucose 128 mg/dL (70-99); Potassium 3.6 mmol/L (3.3-5.1); Sodium Level 141 mmol/L (133-145)
[2024-10-26 06:22] LABS: International Normalized Ratio 3.8; Prothrombin Time (Protime)PT. 38.3 SECONDS (11.7-14.9)
[2024-10-26] MEDS: Dicyclomine 10 MG Capsule 20 MG PO ×3 (06:37→21:31)
[2024-10-26] MEDS: metroNIDAZOLE 500 MG Tablet PO ×3 (06:38→21:31)
[2024-10-26 06:58] LABS: Bedside Glucose 115 mg/dL (74-106)
[2024-10-26] MEDS: Ipratropium/Albuterol Sulfate 3 ML AMPUL.NEB INHALATION ×3 (07:01→19:55)
[2024-10-26] MEDS: Doxycycline 100 MG CAPSULE PO ×2 (09:30→21:32)
[2024-10-26] MEDS: Potassium Chloride Oral Tablet 20 MEQ PO (09:31)
[2024-10-26] MEDS: Prazosin HCl 1 MG Capsule 2 MG PO ×2 (09:31→21:31)
[2024-10-26] MEDS: Cefdinir 300 MG Capsule PO ×2 (09:32→21:31)
[2024-10-26] MEDS: Metoprolol Tartrate 25 MG Tablet PO ×2 (09:33→21:33)
[2024-10-26] MEDS: Furosemide 40 MG Tablet PO (09:33)
[2024-10-26] MEDS: Pantoprazole Sodium 40 MG Tablet PO ×2 (09:34→21:31)
[2024-10-26] MEDS: Flecainide 100 MG Tablet 50 MG PO ×2 (09:34→21:31)
[2024-10-26 11:34] LABS: Bedside Glucose 186 mg/dL (74-106)
[2024-10-26] MEDS: Insulin Lispro 100 UNIT/ML INSULN.PEN 8 UNIT SC (12:31)
[2024-10-26] MEDS: Insulin Lispro 100 UNIT/ML INSULN.PEN SC ×3 (12:32→21:41)
--- NOTE | 2024-10-26 13:39 | PN.HOSP_ITS ---
Reason for Visit Reason for Visit: Diagnoses Gastrointestinal hemorrhage, unspecified (10/24/24) Objective Data Objective Data Vital Signs: Vital Signs Temp Pulse Resp BP Pulse Ox O2 Del Method FiO2 98.6 F 66 16 122/54 H 98 Room Air 21 10/26/24 13:28 10/26/24 13:28 10/26/24 13:28 10/26/24 13:28 10/26/24 13:28 10/26/24 13:28 10/26/24 01:20 Oxygen Delivery Method Room Air Weight: 289 lb 7.471 oz Body Mass Index (BMI) 42.8 Intake & Output: Intake and Output for Last 24 Hours 10/24/24 10/25/24 10/26/24 23:59 23:59 23:59 Intake Total 104 / 104 400 / 700 500 / 500 Output Total 450 / 450 900 / 1100 650 / 650 Balance -346 / -346 -500 / -400 -150 / -150 Lab / Micro Data 10/26/24 05:33 10/26/24 05:33 Labs: Laboratory Results - last 24 hr 10/25/24 15:52: POC Glucose 137 H 10/25/24 20:19: POC Glucose 138 H 10/26/24 05:33: WBC 10.5, RBC 3.60 L, Hgb 11.1 L, Hct 34.5 L, MCV 95.8 H, MCH 30.8, MCHC 32.2, RDW Std Deviation 52.0 H, RDW Coeff of Jadon 14.9 H, Plt Count 212, MPV 10.2, Immature Gran % (Auto) 1.900 H, Neut % (Auto) 60.5, Lymph % (Auto) 30.1, [place] % (Auto) 5.0, Eos % (Auto) 1.9, Baso % (Auto) 0.6, Absolute Neuts (auto) 6.4, Absolute Lymphs (auto) 3.16, Nucleated RBC % 0.2, PT 38.3 H, INR 3.8, Sodium 141, Potassium 3.6, Chloride 108, Carbon Dioxide 21.3, Anion Gap 11, BUN 24 H, Creatinine 1.44 H, Estim Creat Clear Calc 56.77, Est GFR (MDRD) Non-Af 50 L, BUN/Creatinine Ratio 16.5, Glucose 128 H, Calcium 7.7 10/26/24 06:36: POC Glucose 115 H 10/26/24 11:15: POC Glucose 186 H Micro: Microbiology 10/24/24 11:40 Stool Stool Occult Blood (DANIELLE) - Final Occult Blood Positive Physical Exam Narrative Seen and examined. No further bleed. Hemoglobin about 11 g. Patient had pain on the right thigh but that has resolved. Respiratory status/SOB at baseline with history of heart failure and COPD. INRs supratherapeutic. Wound VAC was changed 10/24. Physical exam: General: Alert, Oriented x3, Cooperative. Morbid obesity BMI 42.7 kg/m? HEENT: Atraumatic, PERRLA, EOMI, Normocephalic Oral: Deep oropharyngeal structures could not be visualized. Neck: Thick white neck. JVD not discernible. Supple, Negative Carotid Bruits Chest wall/Lungs: Air entry diminished in bilateral lungs. Mild chronic rhonchi. Cardiovascular: Regular rate, Regular Rhythm, Normal S1, Normal S2, soft systolic murmur Abdomen: Bowel Sounds Present, Soft, Non Tender, Non-Distended, large pelvic pannus : No dysuria. No renal angle tenderness. No suprapubic tenderness. Extremities: Bilateral 2+ pitting edema from knee downwards. Capillary Refill Less than 3 Seconds Skin: Left upper thigh wound VAC. No tenderness on right thigh area. Chronic venous hypertensive changes in lower legs and chronic soft tissue hypertrophy Musculoskeletal: No Tenderness to Palpation of Joints or Extremities. Bilateral hip replacement. ROM restricted Neurological: Cranial nerves II-XII grossly intact, DTR 2+/4. No acute focal neurological deficit. Psych/Mental Status: flat affect Assessment & Plan Assessment/Plan (1) GI bleed: (2) Failure to thrive: PLAN: Plan This 79-year-old gentleman was admitted with dark/black tarry stool for last couple days and failure to thrive 1. Mild GI bleed most likely upper GI tract with history of chronic anemia: H&H 11.7/36.7%. Platelet count 261K. Baseline creatinine is between 10 to 11 g%. Hemodynamically, blood pressure and heart rate in normal range. Does not need acute EGD/intervention discussed with Dr. Gorman. Patient also has elevated INR. Managed conservatively with monitoring H&H 10/25: Stool for occult blood positive. H&H on baseline 10.8/33.7%. Discussed with the patient and wad compressor operator adjuster. Outpatient is scheduled EGD. Continue PPI. 10/26: H&H on baseline 11.1/34.5%. No acute bleeding after admission. Outpatient EGD. 2. Recent necrotizing soft tissue of left upper thigh/groin region: Patient had debridement and excision of wound and wound VAC placement on October 16, changed on 10/18 before discharge.Patient was discharged on 1 week of doxycycline 100 mg twice daily, cefdinir twice daily and Medrol 5 mg 3 times daily from 10/18. Ideally, will complete tomorrow 10/25/2024. Wound nurse consulted for change of wound VAC. 10/26: Wound VAC was changed on 10/24. No tenderness in thigh area. Feeling good 3. Chronic HFpEF: 2D echo from 10/10 shows EF 65% mild LVH. Bicarb 19. Increase home dose furosemide 40 mg once daily to twice daily from tomorrow. Lasix 20 mg IV 1 dose ordered. Monitor kidney function and electrolytes. Continue home cardiac medications 2D echo: Mild 01/24/2025 interpretation Summary Mild concentric left ventricular hypertrophy. The left ventricular ejection fraction is 65 %. Stage 1 diastolic dysfunction. There is moderate biatrial dilatation. 10/25 continue Lasix, furosemide his home dose. 10/26: Lung examination shows no increase in dyspnea or crepitations. 4 .PAF/flutter: Heart rate is controlled. INR supratherapeutic, 4.4. On flecainide continued. Hold warfarin. EKG ordered 10/26: EKG A-fib at 64 beats minute. Low voltage QRS. 5. Diabetes mellitus type II: Hold oral home regimen, ADA diet, Accu-Chek before meals and at bedtime with Humalog sliding scale coverage and hypoglycemia protocol. Discontinue Jardiance as patient had necrotizing fasciitis. Continue Lantus. 10/26 glucose 186. 6. Hypertension: Continue home regimen including metoprolol, IV Lasix, with holding parameters 7. Hyperlipidemia: Continue home statin regimen. Fasting profile on 10/13 shows LDL 32, HDL 30. Triglyceride 121. Normal range 8. COPD: Continue oxygen. DuoNeb nebulization as needed. Incentive spirometry. 10/25: Patient on Stilto inhaler at home, can use home inhaler. 9. Chronic Kidney Disease Stage IIIB: Admission BUN/Cr 35/1.53 baseline renal function primarily 1.0?1.20. Creatinine went up from 1.34-1.53. Patient legs is more swollen therefore diuretic dose increased. 10. Morbid obesity: BMI 42.7 kg/m?. Supervisor Hardboard consult. Weight loss and lifestyle changes encouraged 11. Ulcerative colitis: Follows Friend with history of Entyvio in distant past 12. DVT prophylaxis, supratherapeutic INR therefore will hold warfarin. Bilateral SCDs 13. Obstructive sleep apnea on CPAP Living will/advanced directive/end of life care: Patient does have living will or advanced directive. His is power of professor of french for health. His nephew is also close and present in the room. Patient said he will changes his power of professor of french felt from to his nephew. After discussion of benefits/risks procedures involved with full code, DNR CC arrest and DNR CC, the patient opted for full code. Patient does want artificial life support including intubation, tube feed, ventilator and/chest compression, central venous catheter, vasopressor and DC shock if needed Microbiology Past 72 Hours 10/24/24 11:40 Stool Stool Occult Blood (DANIELLE) - Final Occult Blood Positive Laboratory Results 10/25/24 15:52: POC Glucose 137 H 10/25/24 20:19: POC Glucose 138 H 10/26/24 05:33: WBC 10.5, RBC 3.60 L, Hgb 11.1 L, Hct 34.5 L, MCV 95.8 H, MCH 30.8, MCHC 32.2, RDW Std Deviation 52.0 H, RDW Coeff of Jadon 14.9 H, Plt Count 212, MPV 10.2, Immature Gran % (Auto) 1.900 H, Neut % (Auto) 60.5, Lymph % (Auto) 30.1, [place] % (Auto) 5.0, Eos % (Auto) 1.9, Baso % (Auto) 0.6, Absolute Neuts (auto) 6.4, Absolute Lymphs (auto) 3.16, Nucleated RBC % 0.2, PT 38.3 H, INR 3.8, Sodium 141, Potassium 3.6, Chloride 108, Carbon Dioxide 21.3, Anion Gap 11, BUN 24 H, Creatinine 1.44 H, Estim Creat Clear Calc 56.77, Est GFR (MDRD) Non-Af 50 L, BUN/Creatinine Ratio 16.5, Glucose 128 H, Calcium 7.7 10/26/24 06:36: POC Glucose 115 H 10/26/24 11:15: POC Glucose 186 H Charges/Coding Visit Charges Inpatient E&M: 42188 Subs Hosp L2
[2024-10-26 17:06] LABS: Bedside Glucose 232 mg/dL (74-106)
[2024-10-26] MEDS: Insulin Lispro 100 UNIT/ML INSULN.PEN 10 UNIT SC (17:09)
[2024-10-26] MEDS: Insulin Glargine-YFGN 100 UNIT/ML Pen 10 UNIT SC (17:10)
[2024-10-26] MEDS: Atorvastatin Calcium 40 MG Tablet PO (21:31)
[2024-10-26 23:14] LABS: Bedside Glucose 172 mg/dL (74-106)
[2024-10-27] VITALS (11 sets, daily range): BP systolic 118–141; BP diastolic 48–57; PULSE 60–86; RESP 15–19; TEMP 36.6–37.1; O2SAT 95–97; BMI 42.8
[2024-10-27] MEDS: MELATONIN 3 MG TABLET PO (00:57)
[2024-10-27] MEDS: metroNIDAZOLE 500 MG Tablet PO (06:04)
[2024-10-27] MEDS: Dicyclomine 10 MG Capsule 20 MG PO ×3 (06:04→21:13)
[2024-10-27 06:05] LABS: Absolute Lymphocyte Count 2.96 X10^3/uL (0.83-4.51); Absolute Neutrophil Count 7.2 X10^3/uL (2.0-7.7); Basophil# 0.06 X10^3/uL; Basophil% 0.5 % (0-1); Eosinophil# 0.27 X10^3/uL; Eosinophils% 2.4 % (0-5); Hematocrit 35.2 % (40-54); Hemoglobin 11.1 g/dL (13.0-16.5); Lymphocyte # 2.96 X10^3/ul (0.83-4.51); Lymphocyte % 26.2 % (19-41); Mean Corp Hgb Conc 31.5 g/dL (32-36); Mean Corpuscular Hgb 30.3 pg (27.0-32.0); Mean Corpuscular Volume 96.2 fL (80-94); Mean Platelet Vol. 10.4 fl (6.2-12.0); Monocyte# 0.62 X10^3/uL; Monocyte% 5.5 % (0-10); NRBC Flagged by Analyzer 0 % (0-5); Neutrophil # 7.19 X10^3/uL (2.7-7.7); Neutrophil % 63.6 % (47-70); Platelet Count 213 K/mm3 (150-450); RBC Distribution Width CV 15.1 % (11.6-14.6); RBC Distribution Width SD 53.7 fl (35.1-43.9); Red Blood Count 3.66 M/mm3 (4.6-6.2); White Blood Count 11.3 K/mm3 (4.4-11.0)
[2024-10-27 06:16] LABS: International Normalized Ratio 3.2; Prothrombin Time (Protime)PT. 33.1 SECONDS (11.7-14.9)
[2024-10-27 06:25] LABS: Anion Gap 10 (5-15); BUN 23 mg/dL (4-19); BUN/Creat Ratio 17.6 RATIO (10-20); Calcium,Total 7.7 mg/dL (7.6-11.0); Carbon Dioxide 21.8 mmol/L (21.0-32.0); Chloride 108 mmol/L (98-108); Creatinine, Serum 1.31 mg/dL (0.70-1.20); EST Glomerular Filtration Rate 56 (>60); Estimated Creatinine Clearance 62.38 ml/min (50-250); Glucose 170 mg/dL (70-99); Potassium 3.7 mmol/L (3.3-5.1); Sodium Level 140 mmol/L (133-145)
[2024-10-27 07:56] LABS: Bedside Glucose 169 mg/dL (74-106)
[2024-10-27] MEDS: Insulin Lispro 100 UNIT/ML INSULN.PEN 10 UNIT SC ×3 (08:42→17:13)
[2024-10-27] MEDS: Potassium Chloride Oral Tablet 20 MEQ PO (10:40)
[2024-10-27] MEDS: Furosemide 40 MG Tablet PO (10:41)
[2024-10-27] MEDS: Prazosin HCl 1 MG Capsule 2 MG PO ×2 (10:42→21:14)
[2024-10-27] MEDS: Pantoprazole Sodium 40 MG Tablet PO ×2 (10:43→21:14)
[2024-10-27] MEDS: Flecainide 100 MG Tablet 50 MG PO ×2 (10:44→22:33)
[2024-10-27] MEDS: Metoprolol Tartrate 25 MG Tablet PO ×2 (10:46→21:14)
--- NOTE | 2024-10-27 11:30 | NURSING ---
Drape curled up from moisture and wound vac began leaking. Vac to be changed tomorrow, so wet-to-dry drsg placed on thigh wound.
[2024-10-27 11:58] LABS: Bedside Glucose 128 mg/dL (74-106)
--- NOTE | 2024-10-27 13:08 | PN.HOSP_ITS ---
Reason for Visit Reason for Visit: Diagnoses Gastrointestinal hemorrhage, unspecified (10/24/24) Objective Data Objective Data Vital Signs: Vital Signs Temp Pulse Resp BP Pulse Ox O2 Del Method FiO2 97.9 F 68 16 125/53 H 97 Room Air 21 10/27/24 09:44 10/27/24 10:46 10/27/24 09:44 10/27/24 09:44 10/27/24 09:44 10/27/24 09:44 10/26/24 21:55 Oxygen Delivery Method Room Air Weight: 289 lb 3.944 oz Body Mass Index (BMI) 42.8 Intake & Output: Intake and Output for Last 24 Hours 10/25/24 10/26/24 10/27/24 23:59 23:59 23:59 Intake Total 400 / 700 850 / 850 Output Total 900 / 1100 650 / 650 300 / 300 Balance -500 / -400 200 / 200 -300 / -300 Lab / Micro Data 10/27/24 05:34 10/27/24 05:34 Labs: Laboratory Results - last 24 hr 10/26/24 16:47: POC Glucose 232 H 10/26/24 21:27: POC Glucose 172 H 10/27/24 05:34: WBC 11.3 H, RBC 3.66 L, Hgb 11.1 L, Hct 35.2 L, MCV 96.2 H, MCH 30.3, MCHC 31.5 L, RDW Std Deviation 53.7 H, RDW Coeff of Jadon 15.1 H, Plt Count 213, MPV 10.4, Immature Gran % (Auto) 1.800 H, Neut % (Auto) 63.6, Lymph % (Auto) 26.2, Camp % (Auto) 5.5, Eos % (Auto) 2.4, Baso % (Auto) 0.5, Absolute Neuts (auto) 7.2, Absolute Lymphs (auto) 2.96, Nucleated RBC % 0, PT 33.1 H, INR 3.2, Sodium 140, Potassium 3.7, Chloride 108, Carbon Dioxide 21.8, Anion Gap 10, BUN 23 H, Creatinine 1.31 H, Estim Creat Clear Calc 62.38, Est GFR (MDRD) Non-Af 56 L, BUN/Creatinine Ratio 17.6, Glucose 170 H, Calcium 7.7 10/27/24 07:37: POC Glucose 169 H 10/27/24 11:36: POC Glucose 128 H Micro: Microbiology 10/24/24 11:40 Stool Stool Occult Blood (DANIELLE) - Final Occult Blood Positive Physical Exam Narrative Seen and examined. No acute issues. Patient had right thigh wound VAC got accidentally removed. It is a wet-to-dry dressing. Plan for wound VAC tomorrow No further bleed. Hemoglobin about 11 g. Patient returned from the respiratory therapist to shortness of breath monitor Wound VAC was changed 10/24. Physical exam: General: Alert, Oriented x3, Cooperative. Morbid obesity BMI 42.7 kg/m? HEENT: Atraumatic, PERRLA, EOMI, Normocephalic Oral: Deep oropharyngeal structures could not be visualized. Neck: Thick white neck. JVD not discernible. Supple, Negative Carotid Bruits Chest wall/Lungs: Air entry diminished in bilateral lungs. Mild chronic rhonchi. Cardiovascular: Regular rate, Regular Rhythm, Normal S1, Normal S2, soft systolic murmur Abdomen: Bowel Sounds Present, Soft, Non Tender, Non-Distended, large pelvic pannus : No dysuria. No renal angle tenderness. No suprapubic tenderness. Extremities: Bilateral 2+ pitting edema from knee downwards. Capillary Refill Less than 3 Seconds Skin: Left upper thigh wound VAC. No tenderness on right thigh area. Chronic venous hypertensive changes in lower legs and chronic soft tissue hypertrophy Musculoskeletal: No Tenderness to Palpation of Joints or Extremities. Bilateral hip replacement. ROM restricted Neurological: Cranial nerves II-XII grossly intact, DTR 2+/4. No acute focal neurological deficit. Psych/Mental Status: flat affect Assessment & Plan Assessment/Plan (1) GI bleed: (2) Failure to thrive: PLAN: Plan This 79-year-old gentleman was admitted with dark/black tarry stool for last couple days and failure to thrive 1. Mild GI bleed most likely upper GI tract with history of chronic anemia: H&H 11.7/36.7%. Platelet count 261K. Baseline creatinine is between 10 to 11 g%. Hemodynamically, blood pressure and heart rate in normal range. Does not need acute EGD/intervention discussed with Dr. Gorman. Patient also has elevated INR. Managed conservatively with monitoring H&H 10/25: Stool for occult blood positive. H&H on baseline 10.8/33.7%. 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 Outpatient is scheduled EGD. Continue PPI. 10/26: H&H on baseline 11.1/34.5%. No acute bleeding after admission. Outpatient EGD. 10/27: No acute issues. 2. Recent necrotizing soft tissue of left upper thigh/groin region: Patient had debridement and excision of wound and wound VAC placement on October 16, changed on 10/18 before discharge.Patient was discharged on 1 week of doxycycline 100 mg twice daily, cefdinir twice daily and Medrol 5 mg 3 times daily from 10/18. Ideally, will complete tomorrow 10/25/2024. Wound nurse consulted for change of wound VAC. 10/26: Wound VAC was changed on 10/24. No tenderness in thigh area. Feeling good 10/27: Wound VAC got accidentally removed. Plan for putting it tomorrow. Pending pre-CERT 3. Chronic HFpEF: 2D echo from 10/10 shows EF 65% mild LVH. Bicarb 19. Increase home dose furosemide 40 mg once daily to twice daily from tomorrow. Lasix 20 mg IV 1 dose ordered. Monitor kidney function and electrolytes. Continue home cardiac medications 2D echo: Mild 01/24/2025 interpretation Summary Mild concentric left ventricular hypertrophy. The left ventricular ejection fraction is 65 %. Stage 1 diastolic dysfunction. There is moderate biatrial dilatation. 10/25 continue Lasix, furosemide his home dose. 10/26: Lung examination shows no increase in dyspnea or crepitations. 4 .PAF/flutter: Heart rate is controlled. INR supratherapeutic, 4.4. On flecainide continued. Hold warfarin. EKG ordered 10/26: EKG A-fib at 64 beats minute. Low voltage QRS. 5. Diabetes mellitus type II: Hold oral home regimen, ADA diet, Accu-Chek before meals and at bedtime with Humalog sliding scale coverage and hypoglycemia protocol. Discontinue Jardiance as patient had necrotizing fasciitis. Continue Lantus. 10/26 glucose 186. 6. Hypertension: Continue home regimen including metoprolol, IV Lasix, with holding parameters 7. Hyperlipidemia: Continue home statin regimen. Fasting profile on 10/13 shows LDL 32, HDL 30. Triglyceride 121. Normal range 8. COPD: Continue oxygen. DuoNeb nebulization as needed. Incentive spirometry. 10/25: Patient on Stilto inhaler at home, can use home inhaler. 9. Chronic Kidney Disease Stage IIIB: Admission BUN/Cr 35/1.53 baseline renal function primarily 1.0?1.20. Creatinine went up from 1.34-1.53. Patient legs is more swollen therefore diuretic dose increased. 10. Morbid obesity: BMI 42.7 kg/m?. Certified Control Systems Technician consult. Weight loss and lifestyle changes encouraged 11. Ulcerative colitis: Follows . Friend with history of Entyvio in distant past 12. DVT prophylaxis, supratherapeutic INR therefore will hold warfarin. Bilateral SCDs 13. Obstructive sleep apnea on CPAP Living will/advanced directive/end of life care: Patient does have living will or advanced directive. His is power of child day care teacher for health. His nephew is also close and present in the room. Patient said he will changes his power of child day care teacher felt from to his nephew. After discussion of benefits/risks procedures involved with full code, DNR CC arrest and DNR CC, the patient opted for full code. Patient does want artificial life support including intubation, tube feed, ventilator and/chest compression, central venous catheter, vasopressor and DC shock if needed Microbiology Past 72 Hours 10/24/24 11:40 Stool Stool Occult Blood (DANIELLE) - Final Occult Blood Positive Laboratory Results 10/25/24 15:52: POC Glucose 137 H 10/25/24 20:19: POC Glucose 138 H 10/26/24 05:33: WBC 10.5, RBC 3.60 L, Hgb 11.1 L, Hct 34.5 L, MCV 95.8 H, MCH 30.8, MCHC 32.2, RDW Std Deviation 52.0 H, RDW Coeff of Jadon 14.9 H, Plt Count 212, MPV 10.2, Immature Gran % (Auto) 1.900 H, Neut % (Auto) 60.5, Lymph % (Auto) 30.1, Camp % (Auto) 5.0, Eos % (Auto) 1.9, Baso % (Auto) 0.6, Absolute Neuts (auto) 6.4, Absolute Lymphs (auto) 3.16, Nucleated RBC % 0.2, PT 38.3 H, INR 3.8, Sodium 141, Potassium 3.6, Chloride 108, Carbon Dioxide 21.3, Anion Gap 11, BUN 24 H, Creatinine 1.44 H, Estim Creat Clear Calc 56.77, Est GFR (MDRD) Non-Af 50 L, BUN/Creatinine Ratio 16.5, Glucose 128 H, Calcium 7.7 10/26/24 06:36: POC Glucose 115 H 10/26/24 11:15: POC Glucose 186 H Charges/Coding Visit Charges Inpatient E&M: 72490 Subs Hosp L2
[2024-10-27] MEDS: Ipratropium/Albuterol Sulfate 3 ML AMPUL.NEB INHALATION ×2 (14:07→19:30)
[2024-10-27 16:53] LABS: Bedside Glucose 166 mg/dL (74-106)
[2024-10-27] MEDS: Insulin Glargine-YFGN 100 UNIT/ML Pen 10 UNIT SC (17:11)
[2024-10-27] MEDS: Insulin Lispro 100 UNIT/ML INSULN.PEN SC (17:12)
[2024-10-27] MEDS: Atorvastatin Calcium 40 MG Tablet PO (21:14)
[2024-10-27] MEDS: oxyCODONE 5 MG Tablet PO (21:23)
[2024-10-27 22:55] LABS: Bedside Glucose 145 mg/dL (74-106)
[2024-10-28] VITALS (10 sets, daily range): BP systolic 130–142; BP diastolic 52–56; PULSE 62–90; RESP 15–18; TEMP 36.7–37.2; O2SAT 93–95; BMI 42.6
[2024-10-28] MEDS: Dicyclomine 10 MG Capsule 20 MG PO ×3 (06:31→21:30)
[2024-10-28 07:17] LABS: International Normalized Ratio 2.3; Prothrombin Time (Protime)PT. 25.5 SECONDS (11.7-14.9)
[2024-10-28] MEDS: Ipratropium/Albuterol Sulfate 3 ML AMPUL.NEB INHALATION ×3 (07:33→19:36)
--- NOTE | 2024-10-28 07:39 | PN.HOSP_ITS ---
Reason for Visit Reason for Visit: Diagnoses Gastrointestinal hemorrhage, unspecified (10/24/24) Subjective Subjective No events overnight. Feeling well. Objective Data Objective Data Vital Signs: Vital Signs Temp Pulse Resp BP Pulse Ox O2 Del Method FiO2 37.2 C 63 16 130/54 H 95 Room Air 21 10/28/24 04:00 10/28/24 07:35 10/28/24 07:35 10/28/24 04:00 10/28/24 07:35 10/28/24 07:35 10/27/24 22:36 Oxygen Delivery Method Room Air Weight: 130.7 kg Body Mass Index (BMI) 42.6 Intake & Output: Intake and Output for Last 24 Hours 10/26/24 10/27/24 10/28/24 23:59 23:59 23:59 Intake Total 850 / 850 Output Total 650 / 650 300 / 300 Balance 200 / 200 -300 / -300 Lab / Micro Data 10/27/24 05:34 10/27/24 05:34 Labs: Laboratory Results - last 24 hr 10/27/24 07:37: POC Glucose 169 H 10/27/24 11:36: POC Glucose 128 H 10/27/24 16:35: POC Glucose 166 H 10/27/24 22:17: POC Glucose 145 H 10/28/24 06:21: PT 25.5 H, INR 2.3 Micro: Microbiology 10/24/24 11:40 Stool Stool Occult Blood (DANIELLE) - Final Occult Blood Positive Physical Exam Const alert and no apparent distress Constitutional Narrative: up in chair. no respiratory distress. no conversational dyspnea. HEENT head/scalp atraumatic and moist oral mucous membranes Extremity Extremity Narrative: Left proximal left leg wound bandaged (did not remove) Neuro Sensorium / Orientation: awake and alert Assessment & Plan Assessment/Plan (1) GI bleed: PLAN: Hg stable Follow up with GI as outpt (2) Failure to thrive: PLAN: PT OT planning on SNF (3) Open thigh wound: QUALIFIERS: Encounter type: subsequent encounter Laterality: left Qualified Code(s): S71.102D - Unspecified open wound, left thigh, subsequent encounter PLAN: Recent nec fas on LLE. wound vac fell off, to be replaced today. PLAN: Plan Chronic conditions: * HFPEF, chronic: continue furosemide * pAfib/flutter: resume warfarin. flecanide * DM2: glargine * COPD: not in exacerbation VTE prophylaxis: not indicated as already anticoagulated. Disposition: to SNF pending insurance authorization. Charges/Coding Visit Charges Inpatient E&M: 53570 Subs Hosp L1
[2024-10-28] MEDS: Insulin Lispro 100 UNIT/ML INSULN.PEN SC ×3 (07:56→21:38)
[2024-10-28] MEDS: Insulin Lispro 100 UNIT/ML INSULN.PEN 10 UNIT SC ×3 (07:57→18:57)
[2024-10-28 08:36] LABS: Bedside Glucose 165 mg/dL (74-106)
[2024-10-28 10:00] LABS: Bedside Glucose 280 mg/dL (74-106)
[2024-10-28] MEDS: Furosemide 40 MG Tablet PO (10:06)
[2024-10-28] MEDS: Potassium Chloride Oral Tablet 20 MEQ PO (10:06)
[2024-10-28] MEDS: Metoprolol Tartrate 25 MG Tablet PO ×2 (10:07→21:31)
[2024-10-28] MEDS: Prazosin HCl 1 MG Capsule 2 MG PO ×2 (10:07→21:31)
[2024-10-28] MEDS: Pantoprazole Sodium 40 MG Tablet PO ×2 (10:08→21:30)
[2024-10-28] MEDS: Flecainide 100 MG Tablet 50 MG PO ×2 (10:08→21:30)
[2024-10-28 11:40] LABS: Bedside Glucose 293 mg/dL (74-106)
--- NOTE | 2024-10-28 13:54 | WOUNDNOTE ---
wound photo: left upper thigh/groin
--- NOTE | 2024-10-28 14:40 | WOUNDNOTE ---
Wound VAC dressing peeled off after patient got up to use the bathroom. Pt keeps urinating on the drape and is loosening up. nurse to call hospitalist to ask about inserting a Georges until the wound can heal a little more and to assist in keeping urine off the skin. will leave VAC for now so the periwound can heal. will monitor. pt waiting for precert to [place]. most likely will be discharged today or tomorrow. can reapply the VAC tomorrow if patient doesn't go to the [place].
--- NOTE | 2024-10-28 15:34 | PCM.TXEXTCAR ---
Diet Diet Order/Speech Therapy: 10/25/24 15:52 Diet: Cardiac - Heart Healthy Dietary Modifications:: Consistent Carbohydrate Type of Dietary Supplement:: Madhu Diet Comments: Madhu 2x/day w/ bfast & dinner, weighted utensils for tremors Routine Orders/Code Status Code Status: Full Code DC O2, CPAP, BIPAP needs Home O2 Discharge instructions: No Wound(s) left upper thigh/groin: Wound Type: open wound s/p recent I&D Dressing Change: applied KCI wound VAC Therapies Weight Bearing: Full weight bearing Extremity Affected:: Left Lower Physical Therapy: Eval and Treat Occupational Therapy: Eval and Treat Problem/Diagnosis (1) GI bleed: Status: Acute Code(s): K92.2 - Gastrointestinal hemorrhage, unspecified Plan: Hg stable Follow up with GI as outpt (2) Failure to thrive: Status: Acute Plan: PT OT planning on SNF (3) Open thigh wound: Status: Acute Code(s): S71.109A - Unspecified open wound, unspecified thigh, initial encounter Plan: Recent nec fas on LLE. wound vac fell off, to be replaced today. Plan Chronic conditions: HFPEF, chronic: continue furosemide pAfib/flutter: resume warfarin. flecanide DM2: glargine COPD: not in exacerbation VTE prophylaxis: not indicated as already anticoagulated. Disposition: to SNF pending insurance authorization. Allergies/Procedures Done in Hospital Allergies amlodipine Allergy (Severe, Verified 10/24/24 11:05) Rash Penicillins Allergy (Verified 10/24/24 11:05) Hives azithromycin Adverse Reaction (Verified 10/24/24 11:05) Diarrhea celecoxib (From Celebrex) Adverse Reaction (Verified 10/24/24 11:05) RECTAL BLEEDING Procedures: None Type of Care/Length of Stay Estimated LOS: Convalescent Care Less Than 30 days Type of Care Needed: Skilled Rehab Potential: Fair Prognosis: Good Additional Orders/Day of Discharge Day of Discharge: 10/28/24 Dietary and Speech Recommendations Dietitian Recommendations/Changes: Adjust to cardiac; consistent carbohydrate diet. Will order madhu BID with breakfast and dinner to promote wound healing. Will monitor weight trends. Discharge Plan Admission Admit Date/Time: 10/24/24 13:30 Primary Reason for Your Visit: GI bleed. Debility Attending Provider: Modesto Encarnacion Primary Care Provider: Carrie Boyer Consulting Providers: Cornelius Rich Discharge Orders/Prescriptions Prescriptions: New acetaminophen 325 mg Tablet 650 mg PO Q6H PRN PRN (Reason: Pain 1-10 Or Fever >100.7) Qty: 0 0RF metoprolol tartrate 25 mg Tablet 25 mg PO BID Qty: 0 0RF pantoprazole 40 mg Tablet,Delayed Release (Dr/Ec) 40 mg PO BID Qty: 0 0RF Continued metformin 500 mg tablet 500 mg PO BID Entyvio 300 mg recon soln 300 mg IV .per order Rx Instructions: 300 mg intravenously; as directed potassium chloride 20 MEQ tablet 20 meq PO DAILY atorvastatin 40 MG tablet 40 mg PO QHS fexofenadine 180 mg tablet 180 mg PO DAILY PRN (Reason: Allergic Symptoms) prazosin 2 mg capsule 2 mg PO BID ketoconazole 2 % shampoo 1 applic topical .COMPLEX Rx Instructions: 1 applic topically 2-3 TIMES WEEKLY; dicyclomine 20 mg tablet 20 mg PO TID insulin glargine-yfgn 100 unit/mL (3 mL) Insulin Pen 8 unit subcut DINNER Qty: 15 0RF insulin glargine-yfgn 100 unit/mL (3 mL) Insulin Pen 15 unit subcut DAILY Qty: 15 0RF furosemide [Lasix] 40 mg tablet 40 mg PO DAILY Qty: 30 0RF (DME) pen needle, diabetic 29 gauge needle See Rx Instructions .Route Qty: 100 0RF Rx Instructions: As directed Jardiance 10 mg tablet 10 mg PO DAILY warfarin 2.5 mg tablet 2.5 mg PO SUTUWETHFRSA Protocol: Dose Management Condition: Monday Dose/Route: 2.5 mg Instruction: 1 x 2.5 mg tablet Condition: Monday Dose/Route: 5 mg Instruction: 2 x 2.5 mg tablets Condition: Monday Dose/Route: 2.5 mg Instruction: 1 x 2.5 mg tablet Condition: Monday Dose/Route: 2.5 mg Instruction: 1 x 2.5 mg tablet Condition: Dose/Route: 2.5 mg Instruction: 1 x 2.5 mg tablet Condition: Monday Dose/Route: 2.5 mg Instruction: 1 x 2.5 mg tablet Condition: Monday Dose/Route: 2.5 mg Instruction: 1 x 2.5 mg tablet Protocol Text: Adjustment Start Date: Monday10/21/24 INR Value: 1.3 INR Date: 10/18/24 Recheck Date: 10/28/24 oxycodone 5 mg tablet 5 mg PO Q8H PRN (Reason: pain (scale score 7-10)) 3 Days Qty: 12 0RF flecainide 50 mg tablet 50 mg PO Q12H Qty: 180 3RF Stiolto Respimat 2.5-2.5 mcg/actuation mist 2 puff inhalation DAILY Qty: 3 3RF Discontinued metoprolol tartrate 50 mg Tablet 50 mg PO BID Qty: 60 0RF doxycycline monohydrate 100 mg capsule 100 mg PO BID Qty: 14 0RF Patient Comments: START DATE- 10/18/24 END DATE- 10/25/24 cefdinir 300 mg capsule 300 mg PO BID 7 Days Qty: 14 0RF Patient Comments: START DATE- 10/18/24 END DATE- 10/25/24 metronidazole 500 mg tablet 500 mg PO Q8H Qty: 21 0RF Patient Comments: START DATE 10/18/24 END DATE 10/25/24 prednisone 20 mg tablet 20 mg PO Q12H PRN (Reason: COLON SYMPTOMS) Referrals / Follow Up: Carrie Boyer, OUTSOLE CEMENTER MACHINE [Primary Care Provider] - Within 2 Weeks Wound Health [Outside] - Within 1 Week Disposition Disposition (needs filled in before D/C Order can be placed): [facility] Facility (3) Open thigh wound Qualifiers: Encounter type: subsequent encounter Laterality: left Qualified Code(s): S71.102D - Unspecified open wound, left thigh, subsequent encounter
[2024-10-28 16:35] LABS: Bedside Glucose 106 mg/dL (74-106)
[2024-10-28] MEDS: Lidocaine Jelly 2% 20 ML Syringe (URO-JET) 1 APPLIC TOPICAL (18:56)
[2024-10-28] MEDS: MELATONIN 3 MG TABLET PO (21:30)
[2024-10-28] MEDS: Atorvastatin Calcium 40 MG Tablet PO (21:31)
[2024-10-28 22:00] LABS: Bedside Glucose 157 mg/dL (74-106)
--- NOTE | 2024-10-29 01:28 | CPS ---
Patient refused PAP therapy for the night.
[2024-10-29 02:16] VITALS: BP 143/58; PULSE 81; RESP 17; TEMP 37.1; O2SAT 95
[2024-10-29 05:28] VITALS: BMI 42.2
[2024-10-29] MEDS: Dicyclomine 10 MG Capsule 20 MG PO (06:20)
[2024-10-29] MEDS: Insulin Lispro 100 UNIT/ML INSULN.PEN 10 UNIT SC ×2 (06:26→11:21)
[2024-10-29] MEDS: Insulin Lispro 100 UNIT/ML INSULN.PEN SC ×2 (06:26→11:20)
[2024-10-29 06:31] LABS: International Normalized Ratio 2.1; Prothrombin Time (Protime)PT. 24.3 SECONDS (11.7-14.9)
[2024-10-29 06:50] LABS: Bedside Glucose 155 mg/dL (74-106)
[2024-10-29] MEDS: Ipratropium/Albuterol Sulfate 3 ML AMPUL.NEB INHALATION (06:53)
[2024-10-29 06:54] VITALS: PULSE 65; RESP 20; O2SAT 95
--- NOTE | 2024-10-29 07:02 | PN.HOSP_ITS ---
Reason for Visit Reason for Visit: Diagnoses Gastrointestinal hemorrhage, unspecified (10/24/24) Cutaneous abscess of left lower limb (10/24/24) Unspecified open wound, left thigh, subsequent encounter (10/24/24) Subjective Subjective Feeling well. Monsalve catheter placed 10/28. Objective Data Objective Data Vital Signs: Vital Signs Temp Pulse Resp BP Pulse Ox O2 Del Method FiO2 37.1 C 65 20 H 143/58 H 95 Room Air 21 10/29/24 02:16 10/29/24 06:54 10/29/24 06:54 10/29/24 02:16 10/29/24 06:54 10/29/24 06:54 10/27/24 22:36 Oxygen Delivery Method Room Air Weight: 129.3 kg Body Mass Index (BMI) 42.2 Intake & Output: Intake and Output for Last 24 Hours 10/27/24 10/28/24 10/29/24 23:59 23:59 23:59 Intake Total 350 / 350 450 / 450 Output Total 300 / 300 300 / 700 600 / 600 Balance -300 / -300 50 / -350 -150 / -150 Lab / Micro Data 10/27/24 05:34 10/27/24 05:34 Labs: Laboratory Results - last 24 hr 10/28/24 06:21: PT 25.5 H, INR 2.3 10/28/24 07:55: POC Glucose 165 H 10/28/24 09:42: POC Glucose 280 H 10/28/24 11:21: POC Glucose 293 H 10/28/24 16:13: POC Glucose 106 10/28/24 21:37: POC Glucose 157 H 10/29/24 05:15: PT 24.3 H, INR 2.1 10/29/24 06:25: POC Glucose 155 H Micro: Microbiology 10/24/24 11:40 Stool Stool Occult Blood (DANIELLE) - Final Occult Blood Positive Physical Exam Const alert and no apparent distress HEENT head/scalp atraumatic and moist oral mucous membranes Neuro Sensorium / Orientation: awake and alert Assessment & Plan Assessment/Plan (1) GI bleed: PLAN: Hg stable Follow up with GI as outpt (2) Failure to thrive: PLAN: PT OT planning on SNF (3) Open thigh wound: QUALIFIERS: Encounter type: subsequent encounter Laterality: left Qualified Code(s): S71.102D - Unspecified open wound, left thigh, subsequent encounter PLAN: Recent nec fas on LLE. wound vac fell off. Complicated by incontinence. Monsalve catheter placed on 10/28 to prevent maceration of the wound and allow a good seal with the wound vac. I would anticipate continuing monsalve catheter until wound vac is no longer needed and possibly until wound is completely healed. PLAN: Plan Chronic conditions: * HFPEF, chronic: continue furosemide * pAfib/flutter: resume warfarin. flecanide * DM2: glargine * COPD: not in exacerbation VTE prophylaxis: not indicated as already anticoagulated. Disposition: to SNF
[2024-10-29 08:43] VITALS: BP 138/67; PULSE 86; RESP 18; TEMP 36.6; O2SAT 92
[2024-10-29] MEDS: Pantoprazole Sodium 40 MG Tablet PO (09:12)
[2024-10-29] MEDS: Flecainide 100 MG Tablet 50 MG PO (09:12)
[2024-10-29] MEDS: Furosemide 40 MG Tablet PO (09:12)
[2024-10-29] MEDS: Prazosin HCl 1 MG Capsule 2 MG PO (09:12)
[2024-10-29] MEDS: Potassium Chloride Oral Tablet 20 MEQ PO (09:12)
[2024-10-29 09:13] VITALS: PULSE 86
[2024-10-29] MEDS: Metoprolol Tartrate 25 MG Tablet PO (09:13)
--- NOTE | 2024-10-29 10:27 | CASEMGMT ---
Social Work- SW received notice that pt has precert. Physician updated. SW remains available to follow for discharge needs. Plan: [facility]; skilled level of care NOEL Ochoa
--- NOTE | 2024-10-29 11:04 | CASEMGMT ---
Addendum entered by Sarah Kohler 10/29/24 11:21: Social Work- SW also called pt nephew, Alvin, to update on discharge plans. Alvin reports that pt has an appointment at 2PM today with her dr to fill out paperwork. HOLLI updated pt. NOEL Ochoa Original Note: Social Work- Precert has been obtained.? Physician updated and pt is ready for discharge today.? PASRR form completed in [facility] and sent along with discharge orders to [facility] via [facility].? Transportation arranged with Physician ambulance for 12:00PM pickup via wheelchair van.? SW met with pt and they are agreeable to discharge plan as stated above.? Pt brother/HCPOA and bedside nurse notified of discharge time. ? Disposition:[facility], skilled level of care under convalescent stay. NOEL Ochoa
[2024-10-29] MEDS: Senna/Docusate Sodium 1 Tablet 2 TABLET PO (11:20)
[2024-10-29 11:53] LABS: Bedside Glucose 252 mg/dL (74-106)
--- NOTE | 2024-10-29 13:14 | DS.PCM_ITS ---
Providers Date of Admission: 10/24/24 Primary Care Physician: Carrie Boyer, RENT COLLECTOR Consultations 10/24/24 13:45 Consult: Onc/Wound/eco industrial development consultant Routine Comment: Reason For Visit: DEBILITY Diagnosis Discharge Diagnosis (1) GI bleed: Status: Acute Code(s): K92.2 - Gastrointestinal hemorrhage, unspecified Plan: Hg stable Follow up with GI as outpt (2) Failure to thrive: Status: Acute Plan: PT OT planning on SNF (3) Open thigh wound: Status: Acute Code(s): S71.109A - Unspecified open wound, unspecified thigh, initial encounter Qualifiers: Encounter type: subsequent encounter Laterality: left Qualified Code(s): S71.102D - Unspecified open wound, left thigh, subsequent encounter Plan: Recent nec fas on LLE. wound vac fell off. Complicated by incontinence. Monsalve catheter placed on 10/28 to prevent maceration of the wound and allow a good seal with the wound vac. I would anticipate continuing monsalve catheter until wound vac is no longer needed and possibly until wound is completely healed. Plan Chronic conditions: * HFPEF, chronic: continue furosemide * pAfib/flutter: resume warfarin. flecanide * DM2: glargine * COPD: not in exacerbation VTE prophylaxis: not indicated as already anticoagulated. Disposition: to SNF Medications at Discharge Home Medications potassium chloride 20 mEq tablet,extended release(part/cryst) 20 meq PO DAILY Low potassium 09/27/15 atorvastatin 40 mg tablet 40 mg PO QHS Cholesterol 08/20/16 metformin 500 mg tablet 500 mg PO BID Diabetes 05/09/19 fexofenadine 180 mg tablet 180 mg PO DAILY PRN Allergic Symptoms 01/11/22 prazosin 2 mg capsule 2 mg PO BID bp 08/08/22 vedolizumab 300 mg intravenous solution (Entyvio) 300 mg IV .per order 03/21/23 flecainide 50 mg tablet 50 mg PO Q12H #180 TABLETS 11/16/23 tiotropium 2.5 mcg-olodaterol 2.5 mcg/actuation mist for inhalation (Stiolto Respimat) 2 puff inhalation DAILY SOB #3 ea 04/22/24 dicyclomine 20 mg tablet 20 mg PO TID 10/09/24 ketoconazole 2 % shampoo 1 applic topical .COMPLEX 10/09/24 furosemide 40 mg tablet (Lasix) 40 mg PO DAILY #30 tabs 10/18/24 insulin glargine-yfgn 100 unit/mL (3 mL) subcutaneous pen 8 unit (0.08 mL) subcut DINNER #15 mL 10/18/24 insulin glargine-yfgn 100 unit/mL (3 mL) subcutaneous pen 15 unit (0.15 mL) subcut DAILY #15 mL 10/18/24 pen needle, diabetic 29 gauge #100 ea 10/18/24 empagliflozin 10 mg tablet (Jardiance) 10 mg PO DAILY diabetes 10/24/24 warfarin 2.5 mg tablet 2.5 mg PO SUTUWETHFRSA blood thinner 10/24/24 acetaminophen 325 mg tablet 650 mg (2 x 325 mg) PO Q6H PRN PRN Pain 1-10 Or Fever >100.7 #0 tabs 10/28/24 metoprolol tartrate 25 mg tablet 25 mg PO BID #0 tabs 10/28/24 oxycodone 5 mg tablet 5 mg PO Q8H PRN pain (scale score 7-10) 3 days #12 tabs 10/28/24 pantoprazole 40 mg tablet,delayed release 40 mg PO BID #0 tabs 10/28/24 Weight / BMI Weight Weight: 129.3 kg Body Mass Index (BMI) 42.2 ABG / Lab / Microbiology Data 10/27/24 05:34 10/27/24 05:34 Laboratory: Laboratory Results - last 24 hr 10/28/24 16:13: POC Glucose 106 10/28/24 21:37: POC Glucose 157 H 10/29/24 05:15: PT 24.3 H, INR 2.1 10/29/24 06:25: POC Glucose 155 H 10/29/24 11:15: POC Glucose 252 H Microbiology: Microbiology 10/24/24 11:40 Stool Stool Occult Blood (DANIELLE) - Final Occult Blood Positive D/C Instructions Discharge Diet: No restrictions DC O2, CPAP, BIPAP Needs PSN CPAP & BiPAP: BiPAP & CPAP Settings per PSN Mode CPAP 10/27/24 22:36 Bipap Delivery Device Face Mask 10/27/24 22:36 BiPAP Expiratory Pressure 11 10/27/24 22:36 Fraction of Inspired Oxygen ( 21 10/27/24 22:36 FIO2) Home O2 Discharge instructions: No Meaningful Use Info Meaningful Use Meaningful Use Diagnoses (Choose all that apply): None applicable Ischemic Stroke Statin Dosing Therapy Reference: STATIN DOSE THERAPY REFERENCE: * Patients > 75 years receive moderate or high dose statin therapy. * Patients 75 years or YOUNGER should receive HIGH intensity statin dose unless contraindicated. You will be required to document reason for non-treatment if statin daily dose does not meet guidelines. HIGH DOSE STATIN THERAPY DAILY Atorvastatin > than or = to 40 mg Rosuvastatin > than or = to 20 mg Amlodipine + Atorvastatin > than or = to 2.5/40 mg Ezetimibe + Simvastatin 10/80 mg Simvastatin 80mg Discharge Plan Admission Admit Date/Time: 10/24/24 13:30 Primary Reason for Your Visit: GI bleed. Debility Attending Provider: Modesto Encarnacion Primary Care Provider: Carrie Boyer Consulting Providers: Cornelius Rich Discharge Orders/Prescriptions Prescriptions: New acetaminophen 325 mg Tablet 650 mg PO Q6H PRN PRN (Reason: Pain 1-10 Or Fever >100.7) Qty: 0 0RF metoprolol tartrate 25 mg Tablet 25 mg PO BID Qty: 0 0RF pantoprazole 40 mg Tablet,Delayed Release (Dr/Ec) 40 mg PO BID Qty: 0 0RF Continued metformin 500 mg tablet 500 mg PO BID Entyvio 300 mg recon soln 300 mg IV .per order Rx Instructions: 300 mg intravenously; as directed potassium chloride 20 MEQ tablet 20 meq PO DAILY atorvastatin 40 MG tablet 40 mg PO QHS fexofenadine 180 mg tablet 180 mg PO DAILY PRN (Reason: Allergic Symptoms) prazosin 2 mg capsule 2 mg PO BID ketoconazole 2 % shampoo 1 applic topical .COMPLEX Rx Instructions: 1 applic topically 2-3 TIMES WEEKLY; dicyclomine 20 mg tablet 20 mg PO TID insulin glargine-yfgn 100 unit/mL (3 mL) Insulin Pen 8 unit subcut DINNER Qty: 15 0RF insulin glargine-yfgn 100 unit/mL (3 mL) Insulin Pen 15 unit subcut DAILY Qty: 15 0RF furosemide [Lasix] 40 mg tablet 40 mg PO DAILY Qty: 30 0RF (DME) pen needle, diabetic 29 gauge needle See Rx Instructions .Route Qty: 100 0RF Rx Instructions: As directed Jardiance 10 mg tablet 10 mg PO DAILY warfarin 2.5 mg tablet 2.5 mg PO SUTUWETHSA Protocol: Dose Management Condition: Monday Dose/Route: 2.5 mg Instruction: 1 x 2.5 mg tablet Condition: Monday Dose/Route: 5 mg Instruction: 2 x 2.5 mg tablets Condition: Monday Dose/Route: 2.5 mg Instruction: 1 x 2.5 mg tablet Condition: Monday Dose/Route: 2.5 mg Instruction: 1 x 2.5 mg tablet Condition: Dose/Route: 2.5 mg Instruction: 1 x 2.5 mg tablet Condition: Monday Dose/Route: 2.5 mg Instruction: 1 x 2.5 mg tablet Condition: Monday Dose/Route: 2.5 mg Instruction: 1 x 2.5 mg tablet Protocol Text: Adjustment Start Date: Monday10/21/24 INR Value: 1.3 INR Date: 10/18/24 Recheck Date: 10/28/24 oxycodone 5 mg tablet 5 mg PO Q8H PRN (Reason: pain (scale score 7-10)) 3 Days Qty: 12 0RF flecainide 50 mg tablet 50 mg PO Q12H Qty: 180 3RF Stiolto Respimat 2.5-2.5 mcg/actuation mist 2 puff inhalation DAILY Qty: 3 3RF Discontinued metoprolol tartrate 50 mg Tablet 50 mg PO BID Qty: 60 0RF doxycycline monohydrate 100 mg capsule 100 mg PO BID Qty: 14 0RF Patient Comments: START DATE- 10/18/24 END DATE- 10/25/24 cefdinir 300 mg capsule 300 mg PO BID 7 Days Qty: 14 0RF Patient Comments: START DATE- 10/18/24 END DATE- 10/25/24 metronidazole 500 mg tablet 500 mg PO Q8H Qty: 21 0RF Patient Comments: START DATE 10/18/24 END DATE 10/25/24 prednisone 20 mg tablet 20 mg PO Q12H PRN (Reason: COLON SYMPTOMS) Referrals / Follow Up: Wound Health [Outside] - Within 1 Week Carrie Boyer, RENT COLLECTOR [Primary Care Provider] - Within 2 Weeks Disposition Disposition (needs filled in before D/C Order can be placed): [facility] Facility Charges/Coding Visit Charges Inpatient E&M: 36953 Disch Hosp
== END 2024-10-29 12:15 | disposition skilled nursing facility (03) ==
LOC: ED 13:03 → MS3 13:17
PROVIDERS: Admitting Provider Internal Medicine; Emergency Provider Emergency Medicine; PCP Clinical Nurse Specialist Adult Health
DX: K92.2 Gastrointestinal hemorrhage, unspecified (principal); M72.6 Necrotizing fasciitis; I13.0 Hypertensive heart and chronic kidney disease with heart failure and stage 1 through stage 4 chronic kidney disease, or unspecified chronic kidney disease; I50.32 Chronic diastolic (congestive) heart failure; J44.9 Chronic obstructive pulmonary disease, unspecified; I48.0 Paroxysmal atrial fibrillation; K51.90 Ulcerative colitis, unspecified, without complications; Z68.41 Body mass index [BMI] 40.0-44.9, adult; E66.01 Morbid (severe) obesity due to excess calories; E11.22 Type 2 diabetes mellitus with diabetic chronic kidney disease; Z79.4 Long term (current) use of insulin; N18.32 Chronic kidney disease, stage 3b; R62.7 Adult failure to thrive; S71.102D Unspecified open wound, left thigh, subsequent encounter; D64.9 Anemia, unspecified; E78.00 Pure hypercholesterolemia, unspecified; G47.33 Obstructive sleep apnea (adult) (pediatric); R79.1 Abnormal coagulation profile; Z79.84 Long term (current) use of oral hypoglycemic drugs; Z87.891 Personal history of nicotine dependence; Z79.899 Other long term (current) drug therapy; X58.XXXD Exposure to other specified factors, subsequent encounter; Z99.81 Dependence on supplemental oxygen; Z98.890 Other specified postprocedural states
CPT/HCPCS: 11043; 11046; 36415; 80048; 82274; 82962; 83735; 85014; 85018; 85025; 85610; 93005; 94640; 94660; 94668; 96365; 96366; 96375; 97110; 97116; 97162; 97166; 97530; 97535; 99214; 99221; 99285; A4216; G0378; G0463; J1938

== ENCOUNTER 2024-11-13 04:06 | Inpatient (IN) | payer MEDICARE, SELFPAY ==
[2024-11-13] VITALS (34 sets, daily range): BP systolic 74–150; BP diastolic 29–96; PULSE 81–97; RESP 16–30; TEMP 36.2–37.6; O2SAT 90–98; BMI 38.5; BMI 40.1
--- NOTE | 2024-11-13 04:10 | RAD_ITS ---
PROCEDURE: CHEST 1 VIEW (PORTABLE) 11/13/2024 REASON FOR EXAM: COUGH AND HYPOTENSION TECHNIQUE: Frontal view of the chest. COMPARISON: None available FINDINGS: Hardware: None available Heart: Cardiomediastinal silhouette within normal limits. Normal pulmonary vascularity Lungs: Streaky perihilar opacities within bilateral lungs, likely atelectasis or infection. Bones: No aggressive osseous lesions. No acute fractures Other: RAD/Chest 1 View (Portable) IMPRESSION: Streaky perihilar opacities within bilateral lungs, likely atelectasis or infec tion. Reading Location: [id number]
--- NOTE | 2024-11-13 04:10 | EKG12_ITS ---
Test Reason : ALTER MENTAL Blood Pressure : */* mmHG Vent. Rate : 86 BPM Atrial Rate : * BPM P-R Int : * ms QRS Dur : 84 ms QT Int : 422 ms P-R-T Axes : * -17 39 degrees QTcB Int : 504 ms Atrial fibrillation with a competing junctional pacemaker with premature ventricular or aberrantly conducted complexes Low voltage QRS Inferior infarct , age undetermined Prolonged QT Abnormal ECG Confirmed by CRISTIANE VILLEDA, ANIYA ([id number]), newspaper managing editor NEDA JIN ([id number]) on 11/14/2024 8:34:57 AM Referred By: Confirmed By: ANIYA SAUER MD
[2024-11-13] MEDS: 0.9% Normal Saline (1000mL) 1,000 ML 999 ML IV (04:17)
--- NOTE | 2024-11-13 04:17 | EX.ED.CRITCA ---
HPI History of Present Illness Chief Complaint: Alt LOC Detail of Chief Complaint: Altered mental status, hypotension and elevated INR Informant: EMS and SNF (Called and gave report to nurse prior to his arrival.) Onset/Context/Timing Onset: Yesterday (Level of consciousness worsened and he subsequently developed hypotension) Context: Sudden Onset Timing: Continuous Quality: Unable to determine Location: Unable to determine Current Severity: Patient attempts to answer and is unable Maximum Severity: Unable to determine Worsened by: Not able to obtain answers to questions Relieved by: Unknown Associated Symptoms Associated Symptoms: abdominal pain (Pain with palpation of umbilical hernia) Narrative Narrative: Patient is an elderly male. He presents from nursing facility because of altered mental status that started yesterday afternoon and subsequently developed hypotension. Patient was admitted October 09 for congestive heart failure with hypoxia. Dr. Julia Vaca's note was reviewed. He was readmitted on October 24 for necrotic abscess left groin. Note was authored by Dr. Power. During his 2 hospitalizations he was seen by infectious disease and was seen by Dr. Oliverio Johnson. Nowhere in anyone's notes or progress notes was there mention of an umbilical hernia. At this point unable to obtain any history. Prior similar symptoms: No Recent Illness/Hospitalization: Yes [facility] Medical History (Updated 11/13/24 @ 06:[address] Raymond Grgeg MD) Anxiety disorder, unspecified Chronic diastolic (congestive) heart failure Other ulcerative colitis without complications Paroxysmal atrial fibrillation Type 2 diabetes mellitus with diabetic chronic kidney disease Necrotizing fasciitis Anemia, unspecified CHF (congestive heart failure) History of COPD Rash History of steroid therapy Tremor On home oxygen therapy COPD (chronic obstructive pulmonary disease) Hoarseness Chronic cough History of edema Normal Holter exam Hypertension Anemia Hyperbilirubinemia Transaminitis Thrombocytopenia Obesity Wears glasses Wears partial dentures Cancer Arthritis High cholesterol Tremor of both hands Ulcerated colon Shortness of breath on exertion Leg cramps History of stress test History of echocardiogram Cardiology follow-up encounter History of atrial fibrillation 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 Ulcerative colitis Colitis Coagulopathy COVID-19 COPD (chronic obstructive pulmonary disease) HLD (hyperlipidemia) Anxiety Diabetes Former smoker CPAP (continuous positive airway pressure) dependence Sleep apnea Congestive heart failure (CHF) Atrial fibrillation Lung cancer Lung mass Smoking greater than 30 pack years 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, adult assisted current use of 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 Paroxysmal atrial fibrillation Chronic diastolic heart failure Paroxysmal atrial flutter Pure hypercholesterolemia Type 2 diabetes mellitus Essential hypertension SILVER (obstructive sleep apnea) CKD (chronic kidney disease) Ulcerative colitis SOB (shortness of breath) Home Medications ?Medication ?Instructions ?Recorded ?Last Taken ?Type potassium chloride 20 mEq 40 meq PO DAILY Low potassium 09/27/15 10/06/24 History tablet,extended release(part/cryst) atorvastatin 40 mg tablet 40 mg PO QHS Cholesterol 08/20/16 10/23/24 History metformin 500 mg tablet 500 mg PO BID Diabetes 05/09/19 10/24/24 History fexofenadine 180 mg tablet 180 mg PO DAILY PRN Allergic 01/11/22 07/10/24 History Symptoms prazosin 2 mg capsule 2 mg PO BID bp 08/08/22 10/24/24 History vedolizumab 300 mg intravenous 300 mg IV .per order 03/21/23 07/10/24 History solution (Entyvio) tiotropium 2.5 mcg-olodaterol 2.5 2 puff inhalation DAILY SOB #3 ea 04/22/24 10/24/24 Rx mcg/actuation mist for inhalation (Stiolto Respimat) dicyclomine 20 mg tablet 20 mg PO TID 10/09/24 10/24/24 History ketoconazole 2 % shampoo 1 applic topical .COMPLEX 10/09/24 Unknown History furosemide 40 mg tablet (Lasix) 40 mg PO DAILY #30 tabs 10/18/24 10/24/24 Rx insulin glargine-yfgn 100 unit/mL 8 unit (0.08 mL) subcut DINNER #15 10/18/24 10/23/24 Rx (3 mL) subcutaneous pen mL insulin glargine-yfgn 100 unit/mL 15 unit (0.15 mL) subcut DAILY #15 10/18/24 10/24/24 Rx (3 mL) subcutaneous pen mL pen needle, diabetic 29 gauge #100 ea 10/18/24 Unknown Rx warfarin 2.5 mg tablet 2.5 mg PO SUTUWETHFRSA blood 10/24/24 10/24/24 History thinner acetaminophen 325 mg tablet 650 mg (2 x 325 mg) PO Q6H PRN PRN 10/28/24 Unknown Rx Pain 1-10 Or Fever >100.7 #0 tabs metoprolol tartrate 25 mg tablet 25 mg PO BID #0 tabs 10/28/24 Unknown Rx oxycodone 5 mg tablet 5 mg PO Q8H PRN pain (scale score 10/28/24 Unknown Rx 7-10) 3 days #12 tabs pantoprazole 40 mg tablet,delayed 40 mg PO BID #0 tabs 10/28/24 Unknown Rx release flecainide 50 mg tablet 50 mg PO Q12H #180 TABLETS 11/11/24 Unknown Rx aluminum-magnesium hydroxide 200 5 ml PO Q4H PRN gi distress 11/13/24 Unknown History mg-200 mg/5 mL oral suspension (MAG-AL) ascorbic acid (vitamin C) 500 mg 0.5 g PO DAILY 11/13/24 Unknown History tablet (C-500) dapagliflozin propanediol 5 mg 5 mg PO DAILY 11/13/24 Unknown History tablet magnesium oxide 400 mg PO BID 11/13/24 Unknown History melatonin 5 mg tablet 5 mg PO QHS 11/13/24 Unknown History multivitamin,al-mdbz-jmdjevyu 1 tab .ROUTE DAILY 11/13/24 Unknown History umeclidinium 62.5 mcg-vilanterol 1 inh inhalation DAILY 11/13/24 Unknown History 25 mcg/actuation powdr for inhalation (Anoro Ellipta) Allergy/AdvReac Type Severity Reaction Status Date / Time amlodipine Allergy Severe Rash Verified 11/13/24 04:22 Penicillins Allergy Hives Verified 11/13/24 04:22 azithromycin AdvReac Diarrhea Verified 11/13/24 04:22 celecoxib (From Celebrex) AdvReac RECTAL Verified 11/13/24 04:22 BLEEDING Family History Mother Colon cancer Heart disease Father CAD (coronary artery disease) Sister Diabetes Brother Heart disease Diabetes Surgical History History of ERCP History of intraocular lens implant History of knee surgery History of bilateral hip replacements History of radiofrequency ablation procedure for cardiac arrhythmia (~08/11/15) Social History household members: spouse Smoking Status: Former smoker how long ago did patient quit smokin + years alcohol intake: never substance use type: does not use caffeine: Yes Type: coffee Number of servings: 3 ROS ROS ED Review of Systems ROS Unobtainable: due to mental status EXAM Physical Exam Const Vital Signs: 11/13/24 04:06 11/13/24 04:07 11/13/24 04:10 Temperature 97.4 F L Temperature Source Axillary Pulse Rate 84 84 Respiratory Rate 26 H 19 H Blood Pressure 92/62 Blood Pressure Mean 72 Pulse Ox 96 92 90 Oxygen Delivery Method Nasal Cannula Nasal Cannula Nasal Cannula Oxygen Flow Rate (L/min) 4 4 11/13/24 04:14 11/13/24 05:06 Temperature 97.4 F L Temperature Source Axillary Pulse Rate 81 86 Respiratory Rate 24 H 22 H Blood Pressure 87/29 L 107/43 L Blood Pressure Mean 48 64 Pulse Ox 96 96 Oxygen Delivery Method Nasal Cannula Nasal Cannula Oxygen Flow Rate (L/min) 4 4 Systolic pressure as of 0506 is 106 Per nurse verbally. Second liter of normal saline was ordered wide open blood pressure at 0506 was documented to be 107/43. Positive well nourished and well developed Constitutional Narrative: BMI is 38.6. Patient does not look well. Question of uremic acuna on patient's face. General Appearance ED: well developed HEENT HEENT Narrative: Patient head is normocephalic and there is no evidence of trauma. Ears normal. Nares patent. Mucosa is dry. Patient attempts to speak and unable to understand. He looks around as well. Negative for cyanosis of lips/distal nose or tenderness Eyes PERRL and EOMs intact bilaterally General Eye ED: Negative for pale conjunctiva or scleral icterus Neck full ROM, no lymphadenopathy and supple Chest Wall Chest Narrative: Chest wall appears normal. Patient has crackles at bases. Breath sounds are symmetric. Inspiratory volume is limited. Resp Resp Narrative: There is no respiratory distress i.e. use of accessory muscles or retractions. Cardio regular rate and no murmurs Cardio Narrative: Heart is a regular. GI non-distended; Negative for non-tender GI Narrative: Patient has umbilical hernia. This is tender. Unable to reduce. Patient will push my hand away. He does not say anything, however. He has no inguinal mass or tenderness noted right or left. Bowel sounds are diminished. The area of the umbilicus is the only area of discomfort. Back/Spine no CVA tenderness Neuro Neuro Narrative: Patient is awake but not alert and he is not oriented to person, place or time. Speech: Negative for speech normal Psych Psych Narrative: Unable to assess Skin Skin Narrative: Question of uremic acuna on his face. Sepsis Attestation Sepsis Alert: Yes Date exam was performed: 11/13/24 Time exam was performed: 04:10 Possible Source of Sepsis: Other (Differential includes many things. Sepsis is in the differential however not for certain.) Sepsis Organ Dysfunction Criteria Present: SBP < 90 mmHg or MAP < 65 mmHg, Creatinine > 2.0 mg/dL, Lactic Acid > 2 mmol/L and New/Unexplained change in mental status Supportive Findings: Sepsis was confirmed at 0545. Fluid Resuscitation Fluid resuscitation indicated?: Yes Amount of fluid ordered: 2,000 Reason for lesser fluid bolus:: Heart failure, Renal Failure and BP Responded to a lesser volume MDM MDM MDM Narrative Medical decision making narrative: Patient is hypotensive with altered mental status. With recent history of GI bleed and the fact that his INR per snf was 11.2 he may have a GI bleed as the cause of his hypotension. Since he has a painful at this time nonreducible umbilical hernia need to consider this the cause of sepsis i.e. incarcerated and possibly strangulated. Reportedly cough and with abnormal breath sounds at the bases may represent CHF versus pneumonia. Also need to rule out UTI. Sepsis order set was initiated. If chest x-ray reveals no obvious pneumonia and urine does not appear cloudy will obtain CT to evaluate his abdomen. Going through snf records indicates patient was just recently placed on oxygen. With no interval change on chest x-ray compared to October 15 and the fact that he had a unremarkable UA at the snf and he has an umbilical hernia that is nonreducible and very painful will obtain CT of the abdomen. Resume patient's acute kidney injury is worse. Will order CT of the abdomen and pelvis without contrast. History & Record Review Additional record(s) reviewed:: Prior inpatient record (Documented HPI narrative), Prior ED visit (Documented under the HPI narrative portion of the EMR) and Prior labs (INR on 11 12 was 11.8. The INR was 9.2 on the seventh of this month. Patient's sodium is elevated 157 and chloride is 118 based on outpatient labs obtained November 12. BUN and creatinine are elevated as well at 44 and 2.41. Estimated GFR is 27. Creatinine was normal on October 30. Was slightly elevat) Lab Data Attestation: I reviewed the patient's lab results. Lab results narrative: White count is elevated 12.6 with slight shift. H&H is 13.3 and 43.7. Platelet count is normal. PT, INR and PTT are all elevated. INR has improved since yesterday from 11.8-5.9. H&H on the seventh was 13.1 and 43.7. Comprehensive metabolic panel is remarkable for sodium 155, potassium of 5.7 and chloride of 117. His potassium is elevated compared to most recent results. CO2 is 21.7 with an anion gap of 17. BUN and creatinine are elevated from yesterday. BUN and creatinine today is 61 and 3.82. Estimated GFR is 20. Lactate is elevated 3.2. Transaminases are unremarkable. Potassium was not treated with Kayexalate since patient cannot drink Kayexalate and side effect of Kayexalate is diarrhea and patient presently is profoundly dehydrated. Suspect once he is hydrated properly as pressure improves that his potassium will improve. There is no changes consistent with hyperkalemia i.e. peaked T waves, widened QRS complex. Labs: Laboratory Results - last 24 hr 11/13/24 04:15 WBC 12.6 H RBC 4.50 L Hgb 13.3 Hct 43.7 MCV 97.1 H MCH 29.6 MCHC 30.4 L RDW Std Deviation 55.9 H RDW Coeff of Jadon 15.6 H Plt Count 352 MPV 9.9 Immature Gran % (Auto) 0.800 Neut % (Auto) 72.5 H Lymph % (Auto) 20.6 [place] % (Auto) 5.4 Eos % (Auto) 0.5 Baso % (Auto) 0.2 Absolute Neuts (auto) 9.1 H Absolute Lymphs (auto) 2.59 Nucleated RBC % 0.3 PT 54.5 H INR 5.9 H* APTT 66.2 H Sodium 155 H Potassium 5.7 H Chloride 117 H Carbon Dioxide 21.4 Anion Gap 17 H BUN 61 H Creatinine 3.82 H Estim Creat Clear Calc 20.25 L Est GFR (MDRD) Non-Af 15 L BUN/Creatinine Ratio 16.1 Glucose 114 H Lactic Acid 3.2 H* Calcium 8.6 Total Bilirubin 0.60 AST 40 H ALT 15 Alkaline Phosphatase 107 Total Protein 6.4 Albumin 2.5 L Globulin 4.0 Albumin/Globulin Ratio 0.6 L ABG Data Attestation: I personally reviewed and interpreted this ABG as follows: Interpretation: VBG reveals no acid-base disturbance. ABG results: ABG 11/13/24 04:33 Specimen Type MERON Sample Site Not entered O2 % 4.0 VBG pH 7.39 VBG pO2 29 VBG HCO3 26 VBG Total CO2 27 VBG O2 Sat (Calc) 53 VBG Base Excess 1 POC Mix VBG pCO2 Pt Tmp 43.0 O2 Delivery Device Not entered Urine is dark in color and thick according to the nurses. This may be due to profound dehydration in light of his elevated sodium and chloride. UA was unremarkable per snf notes. He did have a CRP drawn on November 11 was markedly elevated at 179. Radiography Chest X-Ray - ED: 1 View (Chest x-ray obtained on October 15 was used for comparison. The chest x-ray is essentially unchanged.) and Read by ED Physician (Patient is slightly rotated. There are some increased interstitial markings noted right upper lobe which may be due to overlap of ribs. Cardiac size is within normal limits. There is no evidence of effusion. There is no evidence of CHF in my opinion. Osseous structures reveal no acute abnormali) Diagnostic Testing: Clinical Impression(s) from Imaging Studies Chest X-Ray 11/13/24 04:10 IMPRESSION: Streaky perihilar opacities within bilateral lungs, likely atelectasis or infection. Reading Location: [facility] Abdomen/Pelvis CT 11/13/24 04:58 IMPRESSION: 1. EVALUATION OF THE PELVIS IS LIMITED SECONDARY TO STREAK ARTIFACT FROM BILATERAL HIP ARTHROPLASTY. 2. Incarcerated fat containing periumbilical hernia. 3. Mild to moderate perinephric stranding surrounding the right kidney and proximal right ureter possibly secondary to recently passed stone. 4. Simple cyst within the superior pole of the right kidney. Personal 5. Diverticulosis. Reading Location: [facility] CT of the abdomen reveals no evidence of pneumoperitoneum. There is no infiltrate noted in the right or left lower lung. There is motion artifact. Liver is unremarkable. Gallbladder is slightly distended. There is evidence of atherosclerotic disease involving the aorta. There is evidence of umbilical hernia. Awaiting formal read by radiologist. Rhythm Strip Rhythm Strip: A-fib Rate: 99 Ectopy: PVC(s) EKG Initial EKG: Attestation: I personally reviewed and interpreted this EKG as follows: Interpretation: Atrial Fibrillation (Rate is 86. There is either an aberrant beat or premature beat noted. There is durations 84 ms. QT duration 422 ms. [place] is normal. There is evidence of low voltage in HBB due to body habitus. There is also prolonged QT.) Treatment and Re-Evaluation Narrative: With evidence stranding of the right kidney elevated white count altered mental status no other obvious source suspect this was the source of his infection. He also has an incarcerated umbilical hernia that contains fat. Will discuss case with hospitalist. If he requests that I speak with Dr. Johnson I will gladly speak with him since he saw patient on his last admission. Critical Care Time Critical Care Time: Yes Critical care time (excluding procedures): 30-74 minutes (34), Including time spent: (History, physical, documentation, review of prior records and progress notes, independent or potation of laboratory results and images, treatment of hypotension and patient was CHF initially with IV fluids.), Discussing w/Consultants (Spoke with the hospitalist. He was informed that the surgeon was on page. Plan is to admit to ICU.) and Arranging Admission or Transfer Discharge Plan Dx/Rx/DC Orders Clinical Impression: Acute hypotension, Acute metabolic encephalopathy, Acute hypernatremia, Acute hyperkalemia, Acute kidney injury, Prothrombin time increased due to coumadin, Acidosis, lactic, Incarcerated umbilical hernia, Pyelonephritis of right kidney, Sepsis Disposition Disposition: Acute Care Hospital [facility]
[2024-11-13 04:36] LABS: Blood Gas Specimen Type VEN; O2 Delivery Device Not entered; SITE Not entered; VBG BASE EXCESS 1 mmol/L (-1.0-3.5); VBG Bicarbonate 26 mmol/L (22-26); VBG PO2 29 mmHg (25-40); VBG SO2 53 % (50-70); VBG TCO2 27 mmol/L (23-33); VBG pH 7.39 (7.32-7.42)
[2024-11-13 04:46] LABS: Absolute Lymphocyte Count 2.59 X10^3/uL (0.83-4.51); Absolute Neutrophil Count 9.1 X10^3/uL (2.0-7.7); Basophil# 0.02 X10^3/uL; Basophil% 0.2 % (0-1); Eosinophil# 0.06 X10^3/uL; Eosinophils% 0.5 % (0-5); Hematocrit 43.7 % (40-54); Hemoglobin 13.3 g/dL (13.0-16.5); Lymphocyte # 2.59 X10^3/ul (0.83-4.51); Lymphocyte % 20.6 % (19-41); Mean Corp Hgb Conc 30.4 g/dL (32-36); Mean Corpuscular Hgb 29.6 pg (27.0-32.0); Mean Corpuscular Volume 97.1 fL (80-94); Mean Platelet Vol. 9.9 fl (6.2-12.0); Monocyte# 0.68 X10^3/uL; Monocyte% 5.4 % (0-10); NRBC Flagged by Analyzer 0.3 % (0-5); Neutrophil # 9.13 X10^3/uL (2.7-7.7); Neutrophil % 72.5 % (47-70); POSITIVE MORPHOLOGY YES; Platelet Count 352 K/mm3 (150-450); RBC Distribution Width CV 15.6 % (11.6-14.6); RBC Distribution Width SD 55.9 fl (35.1-43.9); White Blood Count 12.6 K/mm3 (4.4-11.0)
--- NOTE | 2024-11-13 04:58 | CT_ITS ---
PROCEDURE: ABDOMEN/PELVIS WITHOUT CONT 11/13/2024 REASON FOR EXAM: INCARCERATED UMBILICAL HERNIA, HYPOTENSION, CHRISTOPHER TECHNIQUE: Abdomen and pelvis CT without intravenous contrast. Noncontrast technique limits evaluation of the abdominal and pelvic viscera. Coronal and Sagittal reconstruction series were provided. One or more dose reduction techniques were used (e.g., Automated exposure control, adjustment of the mA and/or kV according to patient size, use of iterative reconstruction technique). PATIENT PREPARATION: Per protocol ORAL CONTRAST TYPE: None. COMPARISON: None available FINDINGS: Lung bases: Streaky opacities within bilateral lung bases, likely atelectasis or scarring. Liver: Unremarkable Gallbladder: Unremarkable Spleen: Unremarkable Pancreas: Unremarkable Adrenals: Unremarkable Kidneys: Kidneys are normal in size and configuration. [id number] perinephric stranding surrounding the right kidney and proximal right ureter. Small cyst within the superior pole of the right kidney. EVALUATION OF THE PELVIS IS LIMITED DUE TO STREAK ARTIFACT FROM ADJACENT BILATERAL HIP ARTHROPLASTY. Bladder: NO FOCAL BLADDER WALL THICKENING Reproductive Organs: UNABLE TO ASSESS Bowel: NO SMALL BOWEL OR LARGE BOWEL OBSTRUCTION OR DILATION. THE APPENDIX IS UNREMARKABLE. Lymph nodes: NO LYMPHADENOPATHY Vasculature: CALCIFIED ATHEROSCLEROTIC PLAQUE WITHIN THE ABDOMINAL AORTA AND BRANCH VESSELS. Peritoneum / Retroperitoneum: UNREMARKABLE S ESPECIALLY INCARCERATED FAT CONTAINING PERIUMBILICAL HERNIA. Bones: MULTILEVEL DEGENERATIVE CHANGES THROUGHOUT THE SPINE. CT/Abdomen/Pelvis without Cont IMPRESSION: 1. EVALUATION OF THE PELVIS IS LIMITED SECONDARY TO STREAK ARTIFACT FROM BILATE RAL HIP ARTHROPLASTY. 2. Incarcerated fat containing periumbilical hernia. 3. Mild to moderate perinephric stranding surrounding the right kidney and prox imal right ureter possibly secondary to recently passed stone. 4. Simple cyst within the superior pole of the right kidney. Personal 5. Diverticulosis. Reading Location: [facility]
[2024-11-13 04:59] LABS: Prothrombin Time (Protime)PT. 54.5 SECONDS (11.7-14.9)
[2024-11-13 05:00] LABS: Partial Thromboplast Time 66.2 Seconds (24.1-36.2)
[2024-11-13 05:02] LABS: Differential Indicated SCAN CRITERIA MET
[2024-11-13 05:04] LABS: International Normalized Ratio 5.9
[2024-11-13 05:27] LABS: ALB/GLOB Ratio 0.6 RATIO (0.9-2.4); AST(SGOT) 40 U/L (<=37); Alanine Aminotransfer ALT/SGPT 15 U/L (<=46); Albumin, Serum 2.5 g/dL (3.4-4.8); Alkaline Phosphatase 107 U/L (40-129); Anion Gap 17 (5-15); BUN 61 mg/dL (4-19); BUN/Creat Ratio 16.1 RATIO (10-20); Calcium,Total 8.6 mg/dL (7.6-11.0); Carbon Dioxide 21.4 mmol/L (21.0-32.0); Chloride 117 mmol/L (98-108); Creatinine, Serum 3.82 mg/dL (0.70-1.20); EST Glomerular Filtration Rate 15 (>60); Estimated Creatinine Clearance 20.25 ml/min (50-250); Glucose 114 mg/dL (70-99); Lactic Acid 3.2 mmol/L (0.0-2.0); Potassium 5.7 mmol/L (3.3-5.1); Protein, Total 6.4 g/dL (5.9-8.4); Sodium Level 155 mmol/L (133-145)
[2024-11-13] MEDS: 0.9% Normal Saline (1000mL) 1,000 ML 1000 ML IV ×2 (05:35→06:57)
--- NOTE | 2024-11-13 06:23 | HP.PCM.HOS_ITS ---
[facility] General Date of Admission: 11/13/24 Date of Service: 11/13/24 Chief Complaint: Altered Mental Status. HPI Narrative AVELINA OSHEA, is a 79 M with a past medical history of essential hypertension; on metoprolol and furosemide, hyperlipidemia; on atorvastatin, obesity; with BMI of 38.6 this admission, SLIVER; on CPAP, DM-2; of unknown control on dapagliflozin, metformin, insulin glargine 15 units subcu daily and 8 units subcu p.m., history of paroxysmal atrial flutter; on warfarin, history of arrhythmia; s/p radial frequency ablation, history of chronic diastolic CHF; with preserved LVEF, former history of tobacco abuse (quit ~2014); with subsequent COPD, history of ulcerative colitis; on vedolizumab, history of MGUS, BPH; on terazosin, history of essential tremor, OA; s/p bilateral THR's with history of knee surgery, recent admission here from October 09, 2024 to October 18, 2024 for treatment of acute hypoxia secondary to acutely decompensated chronic diastolic CHF; with preserved LVEF complicated by open Left groin and thigh wound with abscess that progressed to necrotizing deeper soft tissue infection; s/p debridement by general surgeon Dr. Johnson and plastic surgeon Dr. Aguero on October 11, 2024 with final wound dimensions ~12 cm x ~12 cm x ~6 cm with significant undermining of ~4.5 cm-~7 cm with patient also seen by Dr. Chu of infectious disease with surgical cultures growing Staphylococcus epidermidis, Granulicatella anaerobe and Actinotignum with subsequent wound VAC placement and IV antibiotics with vancomycin and metronidazole changed to oral doxycycline, cefdinir and metronidazole with records that admission showing patient was Full Code followed by another more recent admission from October 24, 2024 to October 29, 2024 for melanotic stools due to suspected upper GI bleed with hemoglobin of 11.7 g/dL present on admission and Hemoccult positive stools but with no GI consultation or EGD obtained during that admission who now re-presents to [facility] ER with staff at his ECF noting altered mental status. Mr. Oshea is not able to give a history at this time due to acute severe illness so information was gathered from chart, medical staff and computer. According to the records he was noted to have altered mental status, hypotension and elevated INR of 5.9 after he was noted to have mental decline and lethargy on the afternoon of November 12, 2024. In the ER he was noted to have Leukocytosis of 12.6 K and Lactic Acidosis of 3.2 mmol/L with corresponding CT evidence of [id number] perinephric stranding surrounding the Right kidney and proximal ureter possibly secondary to recently passed stone in addition to and incarcerated fat-containing periumbilical hernia along with simple cyst within the superior pole of the Right kidney and colonic diverticulosis with the patient then diagnosed with Sepsis and Septic Shock with a blood pressure of 74/64 mmHg noted shortly after admission complicated by additional laboratory evidence of warfarin toxicity with elevated INR of 5.9 present on admission compounded by evidence of CHRISTOPHER with elevated serum creatinine of 3.82 mg/dL and BUN of 61 mg/dL (up from his baseline of 2.41 mg/dL and 44 mg/dL on November 12, 2024) with associated Hyperkalemia of 5.7 mmol/L present on admission and moderate Hypernatremia of 155 mmol/L present on admission all combining to cause clinical evidence of Septic/Metabolic Encephalopathy and he was then admitted to the ICU for ongoing care for stay that is expected to extend beyond 2 midnights. [facility] Medical History Anxiety disorder, unspecified Chronic diastolic (congestive) heart failure Other ulcerative colitis without complications Paroxysmal atrial fibrillation Type 2 diabetes mellitus with diabetic chronic kidney disease Necrotizing fasciitis Anemia, unspecified CHF (congestive heart failure) History of COPD Rash History of steroid therapy Tremor On home oxygen therapy COPD (chronic obstructive pulmonary disease) Hoarseness Chronic cough History of edema Normal Holter exam Hypertension Anemia Hyperbilirubinemia Transaminitis Thrombocytopenia Obesity Wears glasses Wears partial dentures Cancer Arthritis High cholesterol Tremor of both hands Ulcerated colon Shortness of breath on exertion Leg cramps History of stress test History of echocardiogram Cardiology follow-up encounter History of atrial fibrillation MGUS (monoclonal gammopathy of unknown significance) [place] light [employer] disease Ulcerative colitis Colitis Coagulopathy COVID-19 COPD (chronic obstructive pulmonary disease) HLD (hyperlipidemia) Anxiety Diabetes Former smoker CPAP (continuous positive airway pressure) dependence Sleep apnea Congestive heart failure (CHF) Atrial fibrillation Lung cancer Lung mass Smoking greater than 30 pack years 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, adult detention current use of 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 Paroxysmal atrial fibrillation Chronic diastolic heart failure Paroxysmal atrial flutter Pure hypercholesterolemia Type 2 diabetes mellitus Essential hypertension SILVER (obstructive sleep apnea) CKD (chronic kidney disease) Ulcerative colitis SOB (shortness of breath) Home Medications ?Medication ?Instructions ?Recorded ?Last Taken ?Type potassium chloride 20 mEq 40 meq PO DAILY Low potassiu m 09/27/15 10/06/24 History tablet,extended release(part/cryst) atorvastatin 40 mg tablet 40 mg PO QHS Cholesterol 10/23/24 History metformin 500 mg tablet 500 mg PO BID Diabetes 05/0910/24/24 History fexofenadine 180 mg tablet 180 mg PO DAILY PRN Allergi c 01/11/22 07/10/24 History Symptoms prazosin 2 mg capsule 2 mg PO BID bp 08/08/2210/06 History vedolizumab 300 mg intravenous 300 mg IV .per order 07/10/24 History solution (Entyvio) tiotropium 2.5 mcg-olodaterol 2.5 2 puff inhalation DA RONEY SOB #3 ea 04/22/24 10/24/24 Rx mcg/actuation mist for inhalation (Stiolto Respimat) dicyclomine 20 mg tablet 20 mg PO TID 10/09/24 History ketoconazole 2 % shampoo 1 applic topical .COMPLEX Unknown History furosemide 40 mg tablet (Lasix) 40 mg PO DAILY #30 tab s 10/18/24 10/24/24 Rx insulin glargine-yfgn 100 unit/mL 8 unit (0.08 mL) sub cut DINNER #15 10/18/24 10/23/24 Rx (3 mL) subcutaneous pen mL insulin glargine-yfgn 100 unit/mL 15 unit (0.15 mL) damico bcut DAILY #15 10/18/24 10/24/24 Rx (3 mL) subcutaneous pen mL pen needle, diabetic 29 gauge #100 ea 10/18/24 Unknown Rx warfarin 2.5 mg tablet 2.5 mg PO SUTUWETHFRSA blood 10/24/24 10/24/24 History thinner acetaminophen 325 mg tablet 650 mg (2 x 325 mg) PO Q6H PRN PRN 10/28/24 Unknown Rx Pain 1-10 Or Fever >100.7 #0 tabs metoprolol tartrate 25 mg tablet 25 mg PO BID #0 tabs 10/28/24 Unknown Rx oxycodone 5 mg tablet 5 mg PO Q8H PRN pain (scale score 10/28/24 Unknown Rx 7-10) 3 days #12 tabs pantoprazole 40 mg tablet,delayed 40 mg PO BID #0 tabs 10/28/24 Unknown Rx release flecainide 50 mg tablet 50 mg PO Q12H #180 TABLETS 0 11/11/24 Unknown Rx aluminum-magnesium hydroxide 200 5 ml PO Q4H PRN gi di stress 11/13/24 Unknown History mg-200 mg/5 mL oral suspension (MAG-AL) ascorbic acid (vitamin C) 500 mg 0.5 g PO DAILY Unknown History tablet (C-500) dapagliflozin propanediol 5 mg 5 mg PO DAILY 11/13/24 Unknown History tablet magnesium oxide 400 mg PO BID 11/13/24 Unkno wn History melatonin 5 mg tablet 5 mg PO QHS 11/13/24 Unknown History multivitamin,gg-tatm-uuluhigb 1 tab .ROUTE DAILY 11/13 Unknown History umeclidinium 62.5 mcg-vilanterol 1 inh inhalation ELLIE Y 11/13/24 Unknown History 25 mcg/actuation powdr for inhalation (Anoro Ellipta) Allergy/AdvReac Type Severity Reaction Status Date / Time amlodipine Allergy Severe Rash Verified 11/13/24 04:22 Penicillins Allergy Hives Verified 11/13/24 04:22 azithromycin AdvReac Diarrhea Verified 11/13/24 04:22 celecoxib (From Celebrex) AdvReac RECTAL Verified 11/13/24 04:22 BLEEDING Family History Mother Colon cancer Heart disease Father CAD (coronary artery disease) Sister Diabetes Brother Heart disease Diabetes Surgical History History of ERCP History of intraocular lens implant History of knee surgery History of bilateral hip replacements History of radiofrequency ablation procedure for cardiac arrhythmia (~08/11/15) Social History household members: spouse Smoking Status: Former smoker how long ago did patient quit smokin + years alcohol intake: never substance use type: does not use caffeine: Yes Type: coffee Number of servings: 3 ROS ROS Narrative Full review of systems was not possible due to patient's severe septic/metabolic encephalopathy. Vital Signs Vital Signs Vital Signs: 11/13/24 04:06 11/13/24 04:07 11/13/24 04:10 Temperature 97.4 F L Temperature Source Axillary Pulse Rate 84 84 Respiratory Rate 26 H 19 H Blood Pressure 92/62 Blood Pressure Mean 72 Pulse Ox 96 92 90 Oxygen Delivery Method Nasal Cannula Nasal Cannula Nasal Cannula Oxygen Flow Rate (L/min) 4 4 11/13/24 04:14 11/13/24 05:06 Temperature 97.4 F L Temperature Source Axillary Pulse Rate 81 86 Respiratory Rate 24 H 22 H Blood Pressure 87/29 L 107/43 L Blood Pressure Mean 48 64 Pulse Ox 96 96 Oxygen Delivery Method Nasal Cannula Nasal Cannula Oxygen Flow Rate (L/min) 4 4 Weight Weight: 261 lb 3.964 oz Body Mass Index (BMI) 38.5 Results Medical Records Data Attestation: I reviewed the patient's medical records Lab / Micro Data Attestation: I reviewed the patient's lab results. 11/13/24 04:15 11/13/24 04:15 Labs: Laboratory Results - last 24 hr 11/13/24 04:15: WBC 12.6 H, RBC 4.50 L, Hgb 13.3, Hct 43.7, MCV 97.1 H, MCH 29.6, MCHC 30.4 L, RDW Std Deviation 55.9 H, RDW Coeff of Jadon 15.6 H, Plt Count 352, MPV 9.9, Immature Gran % (Auto) 0.800, Neut % (Auto) 72.5 H, Lymph % (Auto) 20.6, Fountain % (Auto) 5.4, Eos % (Auto) 0.5, Baso % (Auto) 0.2, Absolute Neuts (auto) 9.1 H, Absolute Lymphs (auto) 2.59, Nucleated RBC % 0.3, PT 54.5 H, INR 5.9 H*, APTT 66.2 H, Sodium 155 H, Potassium 5.7 H, Chloride 117 H, Carbon Dioxide 21.4, Anion Gap 17 H, BUN 61 H, Creatinine 3.82 H, Estim Creat Clear Calc 20.25 L, Est GFR (MDRD) Non-Af 15 L, BUN/Creatinine Ratio 16.1, Glucose 114 H, Lactic Acid 3.2 H*, Calcium 8.6, Total Bilirubin 0.60, AST 40 H, ALT 15, Alkaline Phosphatase 107, Total Protein 6.4, Albumin 2.5 L, Globulin 4.0, A lbumin/Globulin Ratio 0.6 L ABG Data ABG results: ABG 11/13/24 04:33 Specimen Type MERON Sample Site Not entered O2 % 4.0 VBG pH 7.39 VBG pO2 29 VBG HCO3 26 VBG Total CO2 27 VBG O2 Sat (Calc) 53 VBG Base Excess 1 POC Mix VBG pCO2 Pt Tmp 43.0 O2 Delivery Device Not entered Rhythm Strip Rhythm Strip: A-fib Rate: 99 Ectopy: PVC(s) Imaging Radiology Impression Chest X-Ray 11/13/24 04:10 IMPRESSION: Streaky perihilar opacities within bilateral lungs, likely atelectasis or infection. Reading Location: [facility] Abdomen/Pelvis CT 11/13/24 04:58 IMPRESSION: 1. EVALUATION OF THE PELVIS IS LIMITED SECONDARY TO STREAK ARTIFACT FROM BILATERAL HIP ARTHROPLASTY. 2. Incarcerated fat containing periumbilical hernia. 3. Mild to moderate perinephric stranding surrounding the right kidney and proximal right ureter possibly secondary to recently passed stone. 4. Simple cyst within the superior pole of the right kidney. Personal 5. Diverticulosis. Reading Location: [facility] Assessment & Plan Assessment/Plan (1) Sepsis: QUALIFIERS: Sepsis type: sepsis due to unspecified organism S epsis acute organ dysfunction status: with acute organ dysfunction Severe sepsis acute organ dysfunction type: encephalopathy Severe sepsis shock status: with septic shock Qualified Code(s): A41.9 - Sepsis, unspecified organism; R65.21 - Severe sepsis with septic shock; G93.41 - Metabolic encephalopathy (2) Septic shock: (3) Leukocytosis: QUALIFIERS: Leukocytosis type: unspecified Qualified Code(s): D 72.829 - Elevated white blood cell count, unspecified (4) Lactic acidosis: (5) Incarcerated umbilical hernia: (6) Warfarin toxicity: QUALIFIERS: Encounter type: initial encounter Injury intent: a ccidental or unintentional Qualified Code(s): T45.511A - Poisoning by 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s, accidental (unintentional), initial encounter (7) CHRISTOPHER (acute kidney injury): (8) Hyperkalemia: (9) Hypernatremia: (10) Encephalopathy acute: (11) Obesity (BMI 30-39.9): (12) SILVER on CPAP: PLAN: Plan 1. Leukocytosis of 12.6 K and Lactic Acidosis of 3.2 mmol/L with corresponding CT evidence of [id number] perinephric stranding surrounding the Right kidney and proximal ureter possibly secondary to recently passed stone c onsistent with severe hypotension of 74/64 mmHg noted shortly after admission consistent with Sepsis and Septic Shock - Admit to ICU for treatment under the sepsis protocol. Patient has listed allergy to penicillin (hives). He will therefore be treated empirically with IV levofloxacin, IV linezolid and IV metronidazole for broad coverage of nosocomial pathogens with ID consultation pending at this time. Serialize lactate to follow trend. Give pantoprazole IV for GI prophylaxis. Give ondansetron IV as needed for nausea and vomiting. Give acetaminophen VA for pain or fever. Patient will likely need pressors with blood pressure only ~80 mmHg systolic after 3L NS. Finally, we will consult ordnance mechanic to see this patient this a.m. to help manage his sepsis with help appreciated in advance. 2. CT evidence of incarcerated fat-containing periumbilical hernia complicating #1 - ER physician contacted Dr. Johnson of general surgery with formal consultation pending at this time and appreciated in advance. The patient's brother informed me that he is known about his umbilical hernia in the past but had not sought definitive treatment. 3. Warfarin Toxicity with elevated INR of 5.9 present on admission compounding #1 & #2 - Patient will be treated with 5 mg IV vitamin K x 1 now in case patient will need surgical intervention for #2. Check PT/INR daily to follow trend. 4. CHRISTOPHER with elevated serum creatinine of 3.82 mg/dL and BUN of 61 mg/dL (up from his baseline of 2.41 mg/dL and 44 mg/dL on November 12, 2024) adding to the medical complexity of #1 - #3 - Vigorously volume resuscitate with fluid bolus as per sepsis protocol. Check renal indices daily to follow trend of hopeful improvement. 5. Hyperkalemia of 5.7 mmol/L present on admission likely due to #4 - Patient will be treated with IV insulin, IV glucose and IV calcium gluconate since this was not done in the ER. Recheck level at noon to ensure improvement. 6. Hypernatremia of 155 mmol/L present on admission amplifying the pathology of #1 - #5 - Give IVF as per sepsis protocol and recheck BMP ~every 6 hours to closely follow trend and gradually reverse back to normal range. 7. Acute Septic/Metabolic Encephalopathy attributable to #1 - #6 - Continue supportive care as outlined above and monitor for improvement. Check TSH, B12, folate, HUGO and UDS to evaluate for other potential reversible causes of confusion. Otherwise, we will minimize potential late SECURITY SERVICES MANAGER-active medications in an effort to allow sensorium to clear. 8. Obesity; with BMI of 38.6 this admission plus SILVER; on CPAP adding to the burden of disease outlined from #1 - #7 - Weight loss recommended when/if patient regains normal mental status. Continue nocturnal CPAP. Check TSH. This complicates his case and may hamper recovery. 9. Recent admission here from October 09, 2024 to October 18, 2024 for treatment of acute hypoxia secondary to acutely decompensated chronic diastolic CHF; with preserved LVEF complicated by open Left groin and thigh wound with abscess that progressed to necrotizing deeper soft tissue infection; s/p debridement by general surgeon Dr. Johnson and plastic surgeon Dr. Aguero on October 11, 2024 with final wound dimensions ~12 cm x ~12 cm x ~6 cm with significant undermining of ~4.5 cm-~7 cm with patient also seen by Dr. Chu of infectious disease with surgical cultures growing Staphylococcus epidermidis, Granulicatella anaerobe and Actinotignum with subsequent wound VAC placement and IV antibiotics with vancomycin and metronidazole changed to oral doxycycline, cefdinir and metronidazole with records that admission showing patient was Full Code - Noted. 10. More recent admission from October 24, 2024 to October 29, 2024 for melanotic stools due to suspected upper GI bleed with hemoglobin of 11.7 g/dL present on admission and Hemoccult positive stools but with no GI consultation or EGD obtained during that admission - Noted no evidence of GI bleeding at this time. 11. Essential hypertension; on metoprolol and furosemide - Hold scheduled antihypertensives in light of #1. Suspect possible Adverse Drug Reaction to furosemide triggering #4. 12. Hyperlipidemia; on atorvastatin - Hold statin until patient can tolerate oral intake. 13. DM-2; of unknown control on dapagliflozin, metformin, insulin glargine 15 units subcu daily and 8 units subcu p.m. - Keep strict n.p.o. and check FSBS every 6 hours. Check hemoglobin A1c to objectively assess quality of diabetic control. 14. History of paroxysmal atrial flutter; on warfarin - Hold warfarin in light of toxicity outlined in #3. Give IV digoxin as needed if RVR develops. 15. History of arrhythmia; s/p radial frequency ablation - Noted. 16. History of chronic diastolic CHF; with preserved LVEF - Noted with no signs of volume overload at this time. 17. Former history of tobacco abuse (quit ~2014); with subsequent COPD - Stable with no evidence of acute flare at this time. Continue as needed nebulizers. 18. History of ulcerative colitis; on vedolizumab - Hold vedolizumab at this time. 19. History of MGUS - Noted. 20. BPH; on terazosin - Hold terazosin until patient resumes oral intake. 21. History of essential tremor - Noted. 22. OA; s/p bilateral THR's with history of knee surgery - Stable. Give acetaminophen VA pain or fever. 23. DVT/GI prophylaxis - Patient has supratherapeutic INR of 5.9 noted on admission. Pantoprazole 40 mg IV daily. Check PT/INR daily to follow trend. Total time: Approximately (but not less than) 75 minutes. Update: I spoke to the patient's brother and [id number] at the bedside in the ER and they confirmed his full CODE STATUS. They were informed of the critical nature of his illness especially in light of his multiple recent admissions with guarded prognosis. Sepsis Attestation Sepsis Alert: Yes Sepsis Attestation: Agree w/Sepsis Date exam was performed: 11/13/24 Time exam was performed: 07:20 Possible Source of Sepsis: Genitourinary Sepsis Organ Dysfunction Criteria Present: SBP < 90 mmHg or MAP < 65 mmHg, INR > 1.5 or aPTT > 60 sec, Lactic Acid > 2 mmol/L and New/Unexplained change in mental status Supportive Findings: In the ER he was noted to have Leukocytosis of 12.6 K and Lactic Acidosis of 3.2 mmol/L with corresponding CT evidence of [id number] perinephric stranding surrounding the Right kidney and proximal ureter possibly secondary to recently passed stone in addition to and incarcerated fat-containing periumbilical hernia along with simple cyst within the superior pole of the Right kidney and colonic diverticulosis with the patient then diagnosed with Sepsis and Septic Shock with a blood pressure of 74/64 mmHg noted shortly after admission complicated by additional laboratory evidence of warfarin toxicity with elevated INR of 5.9 present on admission compounded by evidence of CHRISTOPHER with elevated serum creatinine of 3.82 mg/dL and BUN of 61 mg/dL (up from his baseline of 2.41 mg/dL and 44 mg/dL on November 12, 2024) with associated Hyperkalemia of 5.7 mmol/L present on admission and moderate Hypernatremia of 155 mmol/L present on admission all combining to cause clinical evidence of Septic/Metabolic Encephalopathy. Fluid Resuscitation Fluid resuscitation indicated?: Yes Fluid Resuscitation ordered: 30 ml/kg fluid bolus ordered Amount of fluid ordered: 3 Sepsis Note Date exam was performed: 11/13/24 Time exam was performed: 07:45 Sepsis Attestation: Sepsis re-evaluation was performed Response to fluids: Non Fluid responsive hypotension and Vasopressors started Charges/Coding Visit Charges Inpatient E&M: 32499 Init Hosp L3
[2024-11-13 06:35] LABS: Atypical Lymphocyte 1+ %; Platelet Estimate ADEQUATE (ADEQ); Platelet Morphology CLUMPED
[2024-11-13 06:36] LABS: Red Cell Morphology NORM C+C NORMAL (NORM C&C)
[2024-11-13] MEDS: Ceftriaxone 2 GM in 0.9% Normal Saline (50mL MB+) 50 ML IV (06:49)
[2024-11-13 07:28] LABS: Color, Urine Yellow (Yellow); Glucose, Dipstick Normal (Normal); Ketone-Dipstick 5 mg/dl (Negative); Leukocyte Esterase-Dipstick 500 /ul (Negative); Nitrite-Dipstick Positive (Negative); Occult Blood-Urine 150 /ul (Negative); Protein-Dipstick 500 mg/dl (Negative); Specific Gravity, Urine 1.025 (1.002-1.030); Urine Clarity Turbid (Clear); Urine Urobilinogen 1 mg/dl (Normal)
[2024-11-13 07:29] LABS: Urine Bilirubin Dipstick 6 mg/dL (Negative)
[2024-11-13 07:48] LABS: White Blood Cells >100 SEEN /hpf (0-5)
[2024-11-13 07:50] LABS: Red Blood Cells-Urine 10-25 SEEN /hpf (0-5); Squamous Epithelial Cells - UA 0-5 SEEN /hpf (0-5)
[2024-11-13 07:51] LABS: Bacteria 3+ /hpf (None Seen); Yeast-Urine 2+ /hpf (None Seen)
[2024-11-13 07:52] LABS: Mucous, Urine RARE /hpf (<or=2+)
[2024-11-13 08:43] LABS: Reflex Lactate? Y
[2024-11-13] MEDS: Norepinephrine 8 MG in 0.9% Normal Saline (250mL Bag) 242 ML 9.4 MG CONT INF (08:51)
--- NOTE | 2024-11-13 09:17 | EX.PCM.CONCC ---
Assessment & Plan Assessment/Plan (1) UTI (urinary tract infection): (2) Septic shock: PLAN: Plan RECOMMENDATIONS: 1. Continue antimicrobial therapy as ordered. 2. Continue Levophed to maintain a mean arterial pressure at or above 65 mmHg. 3. Start D5W. 4. Continue local wound care. 5. Recheck INR tomorrow. 6. Recommend PAP therapy with naps and nightly. 7. The patient should remain n.p.o., pending improvement in his mental status. IMPRESSIONS: 1. Septic shock The patient presented to the hospital with sepsis due to urinary tract source of infection with acute sepsis related organ dysfunction as evidenced by fluid refractory hypotension requiring vasopressor support, acute on chronic kidney disease, lactic acidemia and altered mental status. The patient did receive supplemental IV fluid hydration per sepsis protocol, but remained hypotensive. Therefore, we will continue Levophed to maintain a mean arterial pressure at or above 65 mmHg. The patient will be continued on empiric broad-spectrum antimicrobials. 2. Toxic/metabolic encephalopathy Related to #1. Avoid sedating medications for now. If there is further decline in the patient's mental status, will obtain ABG. Otherwise, continue current supportive care. 3. Acute on chronic kidney disease Most likely prerenal in etiology in the setting of #1. Continue supportive measures with supplemental IV fluids and vasopressor support to maintain hemodynamic stability. Continue to monitor urine output. No current indication for renal replacement therapy. 4. Recent necrotizing soft tissue infection of left thigh/obstructive sleep apnea/diabetes mellitus/coagulopathy/COPD Complicates care, management, recovery and prognosis. Continue local wound care. Recommend PAP therapy with naps and nightly. Check INR tomorrow morning. TIME: 34 minutes of critical care time, independent of procedures, was spent addressing the patient's septic shock, metabolic encephalopathy, acute on chronic kidney disease, review of all data and collaboration with the care team. HPI Consult Data Date of Consult: 11/13/24 HPI Narrative Reason for Consultation: Sepsis HPI Narrative: The patient is a 79-year-old male, with a history as outlined below, who presented to the emergency department on November 13 with altered mental status and hypotension. The patient underwent I&D with general surgery and plastics on October 11, 2024 due to a necrotizing soft tissue infection involving the left medial thigh and growing. Surgical intervention was followed by wound VAC placement. In addition, the patient has a documented history of obstructive sleep apnea, diabetes mellitus, paroxysmal atrial, questionable COPD and history of MGUS. The [facility]. On presentation to the emergency department, the patient was documented to be afebrile but was hypotensive with a blood pressure of 92/62 mmHg. Laboratory evaluation revealed a white blood cell count of 13,000. INR was elevated at 5.9. Chemistry profile was notable for a sodium of 155 with a potassium of 5.7, chloride of 117, anion gap of 17 and creatinine of 3.82. Lactate was elevated at 3.2. Urine analysis was positive for nitrites and leukocyte esterase along with 3+ urine bacteria. Blood and urine cultures were obtained. CT abdomen/pelvis demonstrated an incarcerated periumbilical hernia along with perinephric stranding around the right kidney. The patient subsequently received supplemental IV fluid hydration and was started on antimicrobial therapy. Unfortunately, the patient's hypotension was fluid refractory and he did require the initiation of vasopressor support. [facility] Medical History Anxiety disorder, unspecified Chronic diastolic (congestive) heart failure Other ulcerative colitis without complications Paroxysmal atrial fibrillation Type 2 diabetes mellitus with diabetic chronic kidney disease Necrotizing fasciitis Anemia, unspecified CHF (congestive heart failure) History of COPD Rash History of steroid therapy Tremor On home oxygen therapy COPD (chronic obstructive pulmonary disease) Hoarseness Chronic cough History of edema Normal Holter exam Hypertension Anemia Hyperbilirubinemia Transaminitis Thrombocytopenia Obesity Wears glasses Wears partial dentures Cancer Arthritis High cholesterol Tremor of both hands Ulcerated colon Shortness of breath on exertion Leg cramps History of stress test History of echocardiogram Cardiology follow-up encounter History of atrial fibrillation 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 Ulcerative colitis Colitis Coagulopathy COVID-19 COPD (chronic obstructive pulmonary disease) HLD (hyperlipidemia) Anxiety Diabetes Former smoker CPAP (continuous positive airway pressure) dependence Sleep apnea Congestive heart failure (CHF) Atrial fibrillation Lung cancer Lung mass Smoking greater than 30 pack years 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, adult snf current use of 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 Paroxysmal atrial fibrillation Chronic diastolic heart failure Paroxysmal atrial flutter Pure hypercholesterolemia Type 2 diabetes mellitus Essential hypertension SILVER (obstructive sleep apnea) CKD (chronic kidney disease) Ulcerative colitis SOB (shortness of breath) Home Medications ?Medication ?Instructions ?Recorded ?Last Taken ?Type potassium chloride 20 mEq 40 meq PO DAILY Low potassium 09/27/15 10/06/24 History tablet,extended release(part/cryst) atorvastatin 40 mg tablet 40 mg PO QHS Cholesterol 08/20/16 10/23/24 History metformin 500 mg tablet 500 mg PO BID Diabetes 05/09/19 10/24/24 History fexofenadine 180 mg tablet 180 mg PO DAILY PRN Allergic 01/11/22 07/10/24 History Symptoms prazosin 2 mg capsule 2 mg PO BID bp 08/08/22 10/24/24 History vedolizumab 300 mg intravenous 300 mg IV .per order 03/21/23 07/10/24 History solution (Entyvio) tiotropium 2.5 mcg-olodaterol 2.5 2 puff inhalation DAILY SOB #3 ea 04/22/24 10/24/24 Rx mcg/actuation mist for inhalation (Stiolto Respimat) dicyclomine 20 mg tablet 20 mg PO TID 10/09/24 10/24/24 History ketoconazole 2 % shampoo 1 applic topical .COMPLEX 10/09/24 Unknown History furosemide 40 mg tablet (Lasix) 40 mg PO DAILY #30 tabs 10/18/24 10/24/24 Rx insulin glargine-yfgn 100 unit/mL 8 unit (0.08 mL) subcut DINNER #15 10/18/24 10/23/24 Rx (3 mL) subcutaneous pen mL insulin glargine-yfgn 100 unit/mL 15 unit (0.15 mL) subcut DAILY #15 10/18/24 10/24/24 Rx (3 mL) subcutaneous pen mL pen needle, diabetic 29 gauge #100 ea 10/18/24 Unknown Rx warfarin 2.5 mg tablet 2.5 mg PO SUTUWETHFRSA blood 10/24/24 10/24/24 History thinner acetaminophen 325 mg tablet 650 mg (2 x 325 mg) PO Q6H PRN PRN 10/28/24 Unknown Rx Pain 1-10 Or Fever >100.7 #0 tabs metoprolol tartrate 25 mg tablet 25 mg PO BID #0 tabs 10/28/24 Unknown Rx oxycodone 5 mg tablet 5 mg PO Q8H PRN pain (scale score 10/28/24 Unknown Rx 7-10) 3 days #12 tabs pantoprazole 40 mg tablet,delayed 40 mg PO BID #0 tabs 10/28/24 Unknown Rx release flecainide 50 mg tablet 50 mg PO Q12H #180 TABLETS 11/11/24 Unknown Rx aluminum-magnesium hydroxide 200 5 ml PO Q4H PRN gi distress 11/13/24 Unknown History mg-200 mg/5 mL oral suspension (MAG-AL) ascorbic acid (vitamin C) 500 mg 0.5 g PO DAILY 11/13/24 Unknown History tablet (C-500) dapagliflozin propanediol 5 mg 5 mg PO DAILY 11/13/24 Unknown History tablet magnesium oxide 400 mg PO BID 11/13/24 Unknown History melatonin 5 mg tablet 5 mg PO QHS 11/13/24 Unknown History multivitamin,jj-xlyo-hcswyfiu 1 tab .ROUTE DAILY 11/13/24 Unknown History umeclidinium 62.5 mcg-vilanterol 1 inh inhalation DAILY 11/13/24 Unknown History 25 mcg/actuation powdr for inhalation (Anoro Ellipta) Allergy/AdvReac Type Severity Reaction Status Date / Time amlodipine Allergy Severe Rash Verified 11/13/24 04:22 Penicillins Allergy Hives Verified 11/13/24 04:22 azithromycin AdvReac Diarrhea Verified 11/13/24 04:22 celecoxib (From Celebrex) AdvReac RECTAL Verified 11/13/24 04:22 BLEEDING Family History Mother Colon cancer Heart disease Father CAD (coronary artery disease) Sister Diabetes Brother Heart disease Diabetes Surgical History History of ERCP History of intraocular lens implant History of knee surgery History of bilateral hip replacements History of radiofrequency ablation procedure for cardiac arrhythmia (~08/11/15) Social History household members: spouse Smoking Status: Former smoker how long ago did patient quit smokin + years alcohol intake: never substance use type: does not use caffeine: Yes Type: coffee Number of servings: 3 ROS Review of Systems ROS Unobtainable: due to mental status Physical Exam Const alert Constitutional Narrative: Morbidly obese. Resting comfortably in bed. General Appearance: lethargic and ill appearing HEENT normocephalic and head/scalp atraumatic Eyes PERRL, EOMs intact bilaterally and conjunctivae normal Neck supple General: trachea midline Chest inspection of chest normal Resp normal respiratory effort Auscultation: Negative for rales, rhonchi or wheezes Cardio regular rate and regular rhythm GI normal to inspection, nondistended, normoactive bowel sounds Extremity no clubbing, cyanosis or edema Skin Skin Narrative: Groin wound present on admission Neuro CN's II-XII intact bilaterally and moves all extremities Psych Mood & Affect: flat affect Lab / Micro Data 11/13/24 04:15 11/13/24 09:00 Labs: Laboratory Results - last 24 hr 11/13/24 04:15: WBC 12.6 H, RBC 4.50 L, Hgb 13.3, Hct 43.7, MCV 97.1 H, MCH 29.6, MCHC 30.4 L, RDW Std Deviation 55.9 H, RDW Coeff of Jadon 15.6 H, Plt Count 352, MPV 9.9, Immature Gran % (Auto) 0.800, Neut % (Auto) 72.5 H, Lymph % (Auto) 20.6, [place] % (Auto) 5.4, Eos % (Auto) 0.5, Baso % (Auto) 0.2, Absolute Neuts (auto) 9.1 H, Absolute Lymphs (auto) 2.59, Nucleated RBC % 0.3, Differential Comment , Atypical Lymphocytes 1+, Platelet Estimate ADEQUATE, Plt Morphology Comment CLUMPED, RBC Morphology NORM C+C, PT 54.5 H, INR 5.9 H*, APTT 66.2 H, Sodium 155 H, Potassium 5.7 H, Chloride 117 H, Carbon Dioxide 21.4, Anion Gap 17 H, BUN 61 H, Creatinine 3.82 H, Estim Creat Clear Calc 20.25 L, Est GFR (MDRD) Non-Af 15 L, BUN/Creatinine Ratio 16.1, Glucose 114 H, Lactic Acid 3.2 H*, Calcium 8.6, Total Bilirubin 0.60, AST 40 H, ALT 15, Alkaline Phosphatase 107, Total Protein 6.4, Albumin 2.5 L, Globulin 4.0, Albumin/Globulin Ratio 0.6 L 11/13/24 06:49: Urine Color Yellow, Urine Clarity Turbid, Urine pH 6.0, Ur Specific [place] 1.025, Urine Protein 500 H, Urine Glucose (UA) Normal, Urine Ketones 5 H, Urine Occult Blood 150 H, Urine Nitrite Positive H, Urine Bilirubin 6 H, Urine Urobilinogen 1 H, Ur Leukocyte Esterase 500 H, Urine RBC 10-25 SEEN, Urine WBC >100 SEEN, Ur Squamous Epith Cells 0-5 SEEN, Urine Bacteria 3+, Urine Mucus RARE, Urine Yeast 2+ ABG Data ABG results: ABG 11/13/24 04:33 Specimen Type MERON Sample Site Not entered O2 % 4.0 VBG pH 7.39 VBG pO2 29 VBG HCO3 26 VBG Total CO2 27 VBG O2 Sat (Calc) 53 VBG Base Excess 1 POC Mix VBG pCO2 Pt Tmp 43.0 O2 Delivery Device Not entered Rhythm Strip Rhythm Strip: A-fib Rate: 99 Ectopy: PVC(s) Imaging Radiology Impression Chest X-Ray 11/13/24 04:10 IMPRESSION: Streaky perihilar opacities within bilateral lungs, likely atelectasis or infection. Reading Location: [facility] Abdomen/Pelvis CT 11/13/24 04:58 IMPRESSION: 1. EVALUATION OF THE PELVIS IS LIMITED SECONDARY TO STREAK ARTIFACT FROM BILATERAL HIP ARTHROPLASTY. 2. Incarcerated fat containing periumbilical hernia. 3. Mild to moderate perinephric stranding surrounding the right kidney and proximal right ureter possibly secondary to recently passed stone. 4. Simple cyst within the superior pole of the right kidney. Personal 5. Diverticulosis. Reading Location: [facility] Sepsis Attestation Sepsis Alert: Yes Sepsis Attestation: Agree w/Sepsis Date exam was performed: 11/13/24 Time exam was performed: 09:17 Possible Source of Sepsis: Genitourinary Sepsis Organ Dysfunction Criteria Present: SBP < 90 mmHg or MAP < 65 mmHg, Creatinine > 2.0 mg/dL and Lactic Acid > 2 mmol/L Fluid Resuscitation Fluid resuscitation indicated?: Yes Fluid Resuscitation ordered: 30 ml/kg fluid bolus ordered Amount of fluid ordered: 3,000 Sepsis Note Date exam was performed: 11/13/24 Time exam was performed: 09:18 Sepsis Attestation: Sepsis re-evaluation was performed Response to fluids: Non Fluid responsive hypotension and Vasopressors started Charges/Coding Procedures Hospitalists Procedures: 70595 Critical Care 1st Hr
[2024-11-13] MEDS: Calcium Gluconate 1 GM/10 ML Vial IVP (09:39)
[2024-11-13] MEDS: Insulin Lispro 100 UNIT/ML VIAL (ADMELOG) IV (09:40)
[2024-11-13] MEDS: Phytonadione (Vit K) 5 MG in 0.9% Normal Saline (50mL Bag) 50 ML 150 MG IV (09:41)
--- NOTE | 2024-11-13 09:43 | CASEMGMT ---
Addendum entered by Sarah Kohler 11/13/24 09:50: HOLLI notified RNCM and DCA of plans to return to [facility] when medically ready. NOEL Ochoa Original Note: Social Work- SW met with pt brother, Enrique, and Enrique's to offer support and discuss discharge preferences. SW introduced self and role; pt family agreeable to meeting. Family has been visiting pt every other day to allow pt to visit with him. Pt is now in memory care unit of [facility]. Family discussed goals of care and report if pt is able to improve and return, the plan will be to return to [facility]. SW remains available to follow. NOEL Ochoa
[2024-11-13] MEDS: 0.45% Normal Saline 1,000 ML 999 ML IV (09:57)
[2024-11-13 10:02] LABS: Alcohol, Blood (Medical)-Serum < 10.1 mg/dL (<=10.0)
[2024-11-13 10:21] LABS: Lactic Acid 2.1 mmol/L (0.0-2.0)
[2024-11-13 10:23] LABS: Hemoglobin A1c 8.5 % (<=5.6)
[2024-11-13] MEDS: Dextrose 10%-Water 250 ML 999 ML IV (10:23)
[2024-11-13 10:27] LABS: Anion Gap 16 (5-15); BUN 62 mg/dL (4-19); BUN/Creat Ratio 16.2 RATIO (10-20); Carbon Dioxide 19.1 mmol/L (21.0-32.0); Chloride 121 mmol/L (98-108); Creatinine, Serum 3.81 mg/dL (0.70-1.20); EST Glomerular Filtration Rate 15 (>60); Estimated Creatinine Clearance 21.38 ml/min (50-250); Glucose 95 mg/dL (70-99); Potassium 5.9 mmol/L (3.3-5.1); Sodium Level 156 mmol/L (133-145)
[2024-11-13 10:31] LABS: CPK Total, Creatine Kinase 333 U/L (24-195)
[2024-11-13 10:57] LABS: Cholesterol 49 mg/dL (<=200); High Density Lipoprotein 27 mg/dL; Low Density Lipoprotein Calc. 7 mg/dL; Triglycerides 74 mg/dL; Very Low Density Lipoprotein 15 mg/dL (5-40); Vitamin B12 1089 pg/mL (180-914); cholesterol:hdl ratio screen 1.83
--- NOTE | 2024-11-13 11:11 | CASEMGMT ---
Discharge Planning Clinicals sent to [facility]. Pt will need a new precert if he doesn't return before midnight tonight (11/13). Doris Sparks DC Planning Asst.
--- NOTE | 2024-11-13 11:29 | EX.PCM.CON.S ---
Assessment & Plan Assessment/Plan (1) Incarcerated umbilical hernia: PLAN: Patient is 79-year-old male admitted for metabolic encephalopathy related to pyelonephritis and has evidence of acute kidney injury but has been a consult to surgery for evaluation of a umbilical hernia. This hernia has been recognized in patient's imaging since at least 2021 when it was described on an 06/17/2022 CT scan of the abdomen pelvis without contrast. At that time it measured 3.1 x 3.1 cm. On patient's imaging study performed earlier today the hernia defect remains stable in size. On exam the hernia contents remain soft and well patient has some tenderness with palpation this is exam is stable from my prior evaluation. Given the stability and patient's other present medical issues I do not recommend pursuing surgical intervention at this juncture. As I had done previously recommend deferring any surgical intervention for this stable hernia until patient is return to baseline health and healed of his wounds. Additionally, I have encouraged him to consider some weight loss and ensure control of his blood sugar before embarking on any hernia repairs. Patient would be invited to follow-up with me once these benchmarks are met. Oliverio Johnson MD General Surgery Endocrine Surgery Pager: [facility] [address] [place] [address], [address] [place] [address] Office: [phone] HPI Consult Data Date of Consult: 11/13/24 HPI Narrative Reason for Consultation: Umbilical hernia HPI Narrative: OLIVERIO BULL, is a 79 M who presents to [facility] with altered mental status and evidence of metabolic encephalopathy likely related to pyelonephritis. He is known to me from prior hospitalization last month when I performed a incision and debridement of a left thigh abscess on 10/11/2024. I have been asked to evaluate patient for incarcerated umbilical hernia. It is of note that during my evaluation for his thigh infection I noted a chronically fat incarcerated umbilical hernia at that evaluation and had discussed deferring his operation to a later date when he was clear of his present infection and had healed his thigh wound. Patient underwent CT imaging of the abdomen pelvis as part of his workup which shows a fat incarcerated umbilical hernia. He is admitted to hospitalist service and more specifically to the ICU for management of his infectious picture. [facility] Medical History Anxiety disorder, unspecified Chronic diastolic (congestive) heart failure Other ulcerative colitis without complications Paroxysmal atrial fibrillation Type 2 diabetes mellitus with diabetic chronic kidney disease Necrotizing fasciitis Anemia, unspecified CHF (congestive heart failure) History of COPD Rash History of steroid therapy Tremor On home oxygen therapy COPD (chronic obstructive pulmonary disease) Hoarseness Chronic cough History of edema Normal Holter exam Hypertension Anemia Hyperbilirubinemia Transaminitis Thrombocytopenia Obesity Wears glasses Wears partial dentures Cancer Arthritis High cholesterol Tremor of both hands Ulcerated colon Shortness of breath on exertion Leg cramps History of stress test History of echocardiogram Cardiology follow-up encounter History of atrial fibrillation 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 Ulcerative colitis Colitis Coagulopathy COVID-19 COPD (chronic obstructive pulmonary disease) HLD (hyperlipidemia) Anxiety Diabetes Former smoker CPAP (continuous positive airway pressure) dependence Sleep apnea Congestive heart failure (CHF) Atrial fibrillation Lung cancer Lung mass Smoking greater than 30 pack years 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, adult senior care current use of 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 Paroxysmal atrial fibrillation Chronic diastolic heart failure Paroxysmal atrial flutter Pure hypercholesterolemia Type 2 diabetes mellitus Essential hypertension SILVER (obstructive sleep apnea) CKD (chronic kidney disease) Ulcerative colitis SOB (shortness of breath) Home Medications ?Medication ?Instructions ?Recorded ?Last Taken ?Type potassium chloride 20 mEq 40 meq PO DAILY Low potassium 09/27/15 10/06/24 History tablet,extended release(part/cryst) atorvastatin 40 mg tablet 40 mg PO QHS Cholesterol 08/20/16 10/23/24 History metformin 500 mg tablet 500 mg PO BID Diabetes 05/09/19 10/24/24 History fexofenadine 180 mg tablet 180 mg PO DAILY PRN Allergic 01/11/22 07/10/24 History Symptoms prazosin 2 mg capsule 2 mg PO BID bp 08/08/22 10/24/24 History vedolizumab 300 mg intravenous 300 mg IV .per order 03/21/23 07/10/24 History solution (Entyvio) tiotropium 2.5 mcg-olodaterol 2.5 2 puff inhalation DAILY SOB #3 ea 04/22/24 10/24/24 Rx mcg/actuation mist for inhalation (Stiolto Respimat) dicyclomine 20 mg tablet 20 mg PO TID 10/09/24 10/24/24 History ketoconazole 2 % shampoo 1 applic topical .COMPLEX 10/09/24 Unknown History furosemide 40 mg tablet (Lasix) 40 mg PO DAILY #30 tabs 10/18/24 10/24/24 Rx insulin glargine-yfgn 100 unit/mL 8 unit (0.08 mL) subcut DINNER #15 10/18/24 10/23/24 Rx (3 mL) subcutaneous pen mL insulin glargine-yfgn 100 unit/mL 15 unit (0.15 mL) subcut DAILY #15 10/18/24 10/24/24 Rx (3 mL) subcutaneous pen mL pen needle, diabetic 29 gauge #100 ea 10/18/24 Unknown Rx warfarin 2.5 mg tablet 2.5 mg PO SUTUWETHFRSA blood 10/24/24 10/24/24 History thinner acetaminophen 325 mg tablet 650 mg (2 x 325 mg) PO Q6H PRN PRN 10/28/24 Unknown Rx Pain 1-10 Or Fever >100.7 #0 tabs metoprolol tartrate 25 mg tablet 25 mg PO BID #0 tabs 10/28/24 Unknown Rx oxycodone 5 mg tablet 5 mg PO Q8H PRN pain (scale score 10/28/24 Unknown Rx 7-10) 3 days #12 tabs pantoprazole 40 mg tablet,delayed 40 mg PO BID #0 tabs 10/28/24 Unknown Rx release flecainide 50 mg tablet 50 mg PO Q12H #180 TABLETS 11/11/24 Unknown Rx aluminum-magnesium hydroxide 200 5 ml PO Q4H PRN gi distress 11/13/24 Unknown History mg-200 mg/5 mL oral suspension (MAG-AL) ascorbic acid (vitamin C) 500 mg 0.5 g PO DAILY 11/13/24 Unknown History tablet (C-500) dapagliflozin propanediol 5 mg 5 mg PO DAILY 11/13/24 Unknown History tablet magnesium oxide 400 mg PO BID 11/13/24 Unknown History melatonin 5 mg tablet 5 mg PO QHS 11/13/24 Unknown History multivitamin,rs-pdod-hglvhwgh 1 tab .ROUTE DAILY 11/13/24 Unknown History umeclidinium 62.5 mcg-vilanterol 1 inh inhalation DAILY 11/13/24 Unknown History 25 mcg/actuation powdr for inhalation (Anoro Ellipta) Allergy/AdvReac Type Severity Reaction Status Date / Time amlodipine Allergy Severe Rash Verified 11/13/24 04:22 Penicillins Allergy Hives Verified 11/13/24 04:22 azithromycin AdvReac Diarrhea Verified 11/13/24 04:22 celecoxib (From Celebrex) AdvReac RECTAL Verified 11/13/24 04:22 BLEEDING Family History Mother Colon cancer Heart disease Father CAD (coronary artery disease) Sister Diabetes Brother Heart disease Diabetes Surgical History History of ERCP History of intraocular lens implant History of knee surgery History of bilateral hip replacements History of radiofrequency ablation procedure for cardiac arrhythmia (~08/11/15) Social History household members: spouse Smoking Status: Former smoker how long ago did patient quit smokin + years alcohol intake: never substance use type: does not use caffeine: Yes Type: coffee Number of servings: 3 Physical Exam Const Constitutional Narrative: Appears only alert to person and certainly altered but does respond to command Nutritional Appearance: obese Resp normal respiratory effort GI GI Narrative: Stable appearance of patient's umbilical hernia with slight erythema but hernia contents remain soft and fatty tissue is palpated. Extremity Extremity Narrative: Patient with persistent left thigh wound that is much more superficial and limited than had been the case at our prior encounter. There is no undermining. There are no signs of infection. Lab / Micro Data 11/13/24 04:15 11/13/24 09:00 Labs: Laboratory Results - last 24 hr 11/13/24 04:15: WBC 12.6 H, RBC 4.50 L, Hgb 13.3, Hct 43.7, MCV 97.1 H, MCH 29.6, MCHC 30.4 L, RDW Std Deviation 55.9 H, RDW Coeff of Jadon 15.6 H, Plt Count 352, MPV 9.9, Immature Gran % (Auto) 0.800, Neut % (Auto) 72.5 H, Lymph % (Auto) 20.6, Power % (Auto) 5.4, Eos % (Auto) 0.5, Baso % (Auto) 0.2, Absolute Neuts (auto) 9.1 H, Absolute Lymphs (auto) 2.59, Nucleated RBC % 0.3, Differential Comment , Atypical Lymphocytes 1+, Platelet Estimate ADEQUATE, Plt Morphology Comment CLUMPED, RBC Morphology NORM C+C, PT 54.5 H, INR 5.9 H*, APTT 66.2 H, Sodium 155 H, Potassium 5.7 H, Chloride 117 H, Carbon Dioxide 21.4, Anion Gap 17 H, BUN 61 H, Creatinine 3.82 H, Estim Creat Clear Calc 20.25 L, Est GFR (MDRD) Non-Af 15 L, BUN/Creatinine Ratio 16.1, Glucose 114 H, Lactic Acid 3.2 H*, Calcium 8.6, Total Bilirubin 0.60, AST 40 H, ALT 15, Alkaline Phosphatase 107, Total Protein 6.4, Albumin 2.5 L, Globulin 4.0, Albumin/Globulin Ratio 0.6 L 11/13/24 06:49: Urine Color Yellow, Urine Clarity Turbid, Urine pH 6.0, Ur Specific [place] 1.025, Urine Protein 500 H, Urine Glucose (UA) Normal, Urine Ketones 5 H, Urine Occult Blood 150 H, Urine Nitrite Positive H, Urine Bilirubin 6 H, Urine Urobilinogen 1 H, Ur Leukocyte Esterase 500 H, Urine RBC 10-25 SEEN, Urine WBC >100 SEEN, Ur Squamous Epith Cells 0-5 SEEN, Urine Bacteria 3+, Urine Mucus RARE, Urine Yeast 2+ 11/13/24 09:00: Sodium 156 H, Potassium 5.9 H, Chloride 121 H, Carbon Dioxide 19.1 L, Anion Gap 16 H, BUN 62 H, Creatinine 3.81 H, Estim Creat Clear Calc 21.38 L, Est GFR (MDRD) Non-Af 15 L, BUN/Creatinine Ratio 16.2, Glucose 95, Hemoglobin A1c 8.5, Lactic Acid 2.1 H*, Calcium 7.0 L, Total Creatine Kinase 333 H, Triglycerides 74, Cholesterol 49, LDL Cholesterol, Calc 7, VLDL Cholesterol 15, HDL Cholesterol 27 L, Cholesterol/HDL Ratio 1.83, Vitamin B12 1089 H, Serum Folate 11.20, TSH 4.180, Ethyl Alcohol < 10.1 ABG Data ABG results: ABG 11/13/24 04:33 Specimen Type MERON Sample Site Not entered O2 % 4.0 VBG pH 7.39 VBG pO2 29 VBG HCO3 26 VBG Total CO2 27 VBG O2 Sat (Calc) 53 VBG Base Excess 1 POC Mix VBG pCO2 Pt Tmp 43.0 O2 Delivery Device Not entered Rhythm Strip Rhythm Strip: A-fib Rate: 99 Ectopy: PVC(s) Imaging Radiology Impression Chest X-Ray 11/13/24 04:10 IMPRESSION: Streaky perihilar opacities within bilateral lungs, likely atelectasis or infection. Reading Location: [facility] Abdomen/Pelvis CT 11/13/24 04:58 IMPRESSION: 1. EVALUATION OF THE PELVIS IS LIMITED SECONDARY TO STREAK ARTIFACT FROM BILATERAL HIP ARTHROPLASTY. 2. Incarcerated fat containing periumbilical hernia. 3. Mild to moderate perinephric stranding surrounding the right kidney and proximal right ureter possibly secondary to recently passed stone. 4. Simple cyst within the superior pole of the right kidney. Personal 5. Diverticulosis. Reading Location: [facility] Charges/Coding Visit Charges Inpatient E&M: 82323 Init Hosp L2
[2024-11-13] MEDS: Vancomycin HCl 2,000 MG in 0.9% Normal Saline (500mL Bag) 500 ML 250 MG IV (11:32)
[2024-11-13] MEDS: Dextrose 5%-Water (1000mL Bag) 1,000 ML 100 ML IV ×2 (11:32→23:15)
--- NOTE | 2024-11-13 11:34 | PN.HOSP_ITS ---
Reason for Visit Reason for Visit: Diagnoses Sepsis, unspecified organism (11/13/24) Elevated white blood cell count, unspecified (11/13/24) Obesity, unspecified (11/13/24) Hyperosmolality and hypernatremia (11/13/24) Acidosis, unspecified (11/13/24) Hyperkalemia (11/13/24) Obstructive sleep apnea (adult) (pediatric) (11/13/24) Encephalopathy, unspecified (11/13/24) Metabolic encephalopathy (11/13/24) Umbilical hernia with obstruction, without gangrene (11/13/24) Acute kidney failure, unspecified (11/13/24) Severe sepsis with septic shock (11/13/24) Poisoning by 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s, accidental (unintentional), initial encounter (11/13/24) Subjective Subjective Confused. Incoherent. Objective Data Objective Data Vital Signs: Vital Signs Temp Pulse Resp BP Pulse Ox O2 Del Method O2 Flow Rate 36.4 C L 91 18 98/38 L 96 Nasal Cannula 3 11/13/24 06:52 11/13/24 07:00 11/13/24 07:00 11/13/24 07:00 11/13/24 09:00 11/13/24 09:00 11/13/24 09:00 Oxygen Flow Rate (L/min) 3 Oxygen Delivery Method Nasal Cannula Weight: 127 kg Body Mass Index (BMI) 40.1 Intake & Output: Intake and Output for Last 24 Hours 11/11/24 11/12/24 11/13/24 23:59 23:59 23:59 Intake Total 3725.0 / 3725.0 Balance 3725.0 / 3725.0 Lab / Micro Data 11/13/24 04:15 11/13/24 09:00 Labs: Laboratory Results - last 24 hr 11/13/24 04:15: WBC 12.6 H, RBC 4.50 L, Hgb 13.3, Hct 43.7, MCV 97.1 H, MCH 29.6, MCHC 30.4 L, RDW Std Deviation 55.9 H, RDW Coeff of Jadon 15.6 H, Plt Count 352, MPV 9.9, Immature Gran % (Auto) 0.800, Neut % (Auto) 72.5 H, Lymph % (Auto) 20.6, [place] % (Auto) 5.4, Eos % (Auto) 0.5, Baso % (Auto) 0.2, Absolute Neuts (auto) 9.1 H, Absolute Lymphs (auto) 2.59, Nucleated RBC % 0.3, Differential Comment , Atypical Lymphocytes 1+, Platelet Estimate ADEQUATE, Plt Morphology Comment CLUMPED, RBC Morphology NORM C+C, PT 54.5 H, INR 5.9 H*, APTT 66.2 H, S odium 155 H, Potassium 5.7 H, Chloride 117 H, Carbon Dioxide 21.4, Anion Gap 17 H, BUN 61 H, Creatinine 3.82 H, Estim Creat Clear Calc 20.25 L, Est GFR (MDRD) Non-Af 15 L, BUN/Creatinine Ratio 16.1, Glucose 114 H, Lactic Acid 3.2 H*, Calcium 8.6, Total Bilirubin 0.60, AST 40 H, ALT 15, Alkaline Phosphatase 107, Total Protein 6.4, Albumin 2.5 L, Globulin 4.0, Albumin/Globulin Ratio 0.6 L 11/13/24 06:49: Urine Color Yellow, Urine Clarity Turbid, Urine pH 6.0, Ur Specific [place] 1.025, Urine Protein 500 H, Urine Glucose (UA) Normal, Urine Ketones 5 H, Urine Occult Blood 150 H, Urine Nitrite Positive H, Urine Bilirubin 6 H, Urine Urobilinogen 1 H, Ur Leukocyte Esterase 500 H, Urine RBC 10-25 SEEN, Urine WBC >100 SEEN, Ur Squamous Epith Cells 0-5 SEEN, Urine Bacteria 3+, Urine Mucus RARE, Urine Yeast 2+ 11/13/24 09:00: Sodium 156 H, Potassium 5.9 H, Chloride 121 H, Carbon Dioxide 19.1 L, Anion Gap 16 H, BUN 62 H, Creatinine 3.81 H, Estim Creat Clear Calc 21.38 L, Est GFR (MDRD) Non-Af 15 L, BUN/Creatinine Ratio 16.2, Glucose 95, Hemoglobin A1c 8.5, Lactic Acid 2.1 H*, Calcium 7.0 L, Total Creatine Kinase 333 H, Triglycerides 74, Cholesterol 49, LDL Cholesterol, Calc 7, VLDL Cholesterol 15, HDL Cholesterol 27 L, Cholesterol/HDL Ratio 1.83, Vitamin B12 1089 H, Serum Folate 11.20, TSH 4.180, Ethyl Alcohol < 10.1 ABG Data ABG results: ABG 11/13/24 04:33 Specimen Type MERON Sample Site Not entered O2 % 4.0 VBG pH 7.39 VBG pO2 29 VBG HCO3 26 VBG Total CO2 27 VBG O2 Sat (Calc) 53 VBG Base Excess 1 POC Mix VBG pCO2 Pt Tmp 43.0 O2 Delivery Device Not entered Radiography Diagnostic Testing: Radiology Impression Chest X-Ray 11/13/24 04:10 IMPRESSION: Streaky perihilar opacities within bilateral lungs, likely atelectasis or infection. Reading Location: [facility] Abdomen/Pelvis CT 11/13/24 04:58 IMPRESSION: 1. EVALUATION OF THE PELVIS IS LIMITED SECONDARY TO STREAK ARTIFACT FROM BILATERAL HIP ARTHROPLASTY. 2. Incarcerated fat containing periumbilical hernia. 3. Mild to moderate perinephric stranding surrounding the right kidney and proximal right ureter possibly secondary to recently passed stone. 4. Simple cyst within the superior pole of the right kidney. Personal 5. Diverticulosis. Reading Location: [facility] Rhythm Strip Rhythm Strip: A-fib Rate: 99 Ectopy: PVC(s) Physical Exam Const Constitutional Narrative: confused. afebrile. HEENT head/scalp atraumatic and moist oral mucous membranes Resp normal respiratory effort, no retractions, no use of accessory muscles and clear to auscultation bilaterally Cardio regular rate, regular rhythm, S1 normal heart sound and S2 normal heart sound GI GI Narrative: tender. non-distended. Neuro Sensorium / Orientation: awake and alert Assessment & Plan Assessment/Plan (1) Septic shock: PLAN: UTI v hernia v other. follow up cultures (2) Incarcerated umbilical hernia: PLAN: surgery consulted. Not felt to be acute per general surgery. (3) UTI (urinary tract infection): PLAN: abx as above follow up cultures. (4) Leg wound, left: PLAN: subsequent visit had wound vac last admission and diverting monsalve given incontinence. wound care consult (5) Supratherapeutic INR: PLAN: received Vitamin K monitor (6) Hypernatremia: PLAN: on D5W. monitor (7) Hyperkalemia: PLAN: Received D10 and insulin, Monitor (8) Metabolic encephalopathy: PLAN: 2/2 septic shock, CHRISTOPHER avoid potentiating medications. PLAN: Plan VTE prophylaxis: not indicated as with supratherapeutic INR. Charges/Coding Procedures Hospitalists Procedures: Other Procedure - See Report (Nonbillable rounding as patient was admitted after midnight. )
--- NOTE | 2024-11-13 12:21 | PCM.RX.CS ---
Consult Antibiotic Management Pharmacy has been consulted to manage selected antibiotic: Vancomycin Type of Intervention Type of Consult: New start Suspected Infection Suspected Infection: Sepsis Labs Labs: Sodium 156 mmol/L (133-145) H 11/13/24 09:00 Potassium 5.9 mmol/L (3.3-5.1) H 11/13/24 09:00 Chloride 121 mmol/L (98-108) H 11/13/24 09:00 Carbon Dioxide 19.1 mmol/L (21.0-32.0) L 11/13/24 09:00 Anion Gap 16 (5-15) H 11/13/24 09:00 BUN 62 mg/dL (4-19) H 11/13/24 09:00 Creatinine 3.81 mg/dL (0.70-1.20) H 11/13/24 09:00 Est GFR (MDRD) Non-Af 15 (>60) L 11/13/24 09:00 BUN/Creatinine Ratio 16.2 RATIO (10-20) 11/13/24 09:00 Glucose 95 mg/dL (70-99) 11/13/24 09:00 Dosing Weight Weight used for dosin kg Estimated Creatinine Clearance Estimated Creatinine Clearance: 21 ML/MIN Goal Trough Goal Trough: 15-20 mcg/mL Pharmacy Plan for Drug Dosing Pharmacy Plan for Drug Dosing: Give 2000mg IV x1 load today. Will not schedule another dose after that at this time due to the patient's renal function being unstable. SCr was 3.81 this morning and 2.41 yesterday and 1.46 last week on 11/04/24. Will order a random vanc level to be drawn tomorrow morning and dose off that for now. Pharmacy Service will continue to monitor and adjust dosing as required. Follow-Up Labs Follow-Up Labs: Trough: Vancomycin (random) Date/Time Labs Ordered Labs to be done on [date and time ordered]: 11/14/24 0600
[2024-11-13 12:35] LABS: BETA-HYDROXYBUTYRATE 1.2 mmol/L (0.0-0.3)
[2024-11-13 13:13] LABS: Reflex Lactate? Y
[2024-11-13 13:20] LABS: Amphetamine Urine NEGATIVE (<1000 ng/mL); Barbiturate Urine NEGATIVE (< 200 ng/mL); Benzodiazepine Urine NEGATIVE (< 200 ng/mL); Buprenorphine Urine NEGATIVE (< 200 ng/mL); Cocaine Urine NEGATIVE (< 300 ng/mL); Fentanyl, Urine NEGATIVE; Methadone Urine NEGATIVE (< 300 ng/mL); Opiates Urine NEGATIVE (< 300 ng/mL); Oxycodone, Urine PRESUMPTIVE POSITIVE (< 100 ng/mL); PCP Urine NEGATIVE (< 25 ng/mL); THC Urine NEGATIVE (< 50 ng/mL)
--- NOTE | 2024-11-13 14:27 | WOUNDNOTE ---
wound photo: left upper/inner thigh
--- NOTE | 2024-11-13 14:45 | RAD_ITS ---
PROCEDURE: CHEST 1 VIEW (PORTABLE) 11/13/2024 REASON FOR EXAM: PICC PLACEMENT TECHNIQUE: Frontal view of the chest. COMPARISON: Chest dated 11/13/2024 FINDINGS: Lungs: Prominent interstitial markings are noted bilaterally. Pleura: No pleural effusions, thickening, or pneumothorax. Heart: Stable heart size. Mediastinum/[place]: Unremarkable. Great vessels: Unremarkable. Bones/soft tissues: Unremarkable. Therapeutic devices: Cardiac monitoring leads overlie the chest wall. Tip of a left PICC line projects over the superior vena cava. RAD/Chest 1 View (Portable) IMPRESSION: Tip of the left PICC line projects over the superior vena cava. Prominent pulmonary interstitial markings. Can not exclude inflammation. Reading Location: [place] [address]
[2024-11-13] MEDS: Meropenem 1 GM in 0.9% Normal Saline (100mL MB+) 100 ML IV ×2 (15:25→23:00)
[2024-11-13 15:41] LABS: Osmolality, Serum 346 mOsm/KG (280-301)
[2024-11-13 15:43] LABS: Osmolality, Urine 387 mOsm/KG
[2024-11-13 16:57] LABS: Anion Gap 14 (5-15); BUN 65 mg/dL (4-19); BUN/Creat Ratio 18.2 RATIO (10-20); Calcium,Total 7.6 mg/dL (7.6-11.0); Chloride 120 mmol/L (98-108); Creatinine, Serum 3.59 mg/dL (0.70-1.20); EST Glomerular Filtration Rate 17 (>60); Estimated Creatinine Clearance 22.69 ml/min (50-250); Glucose 130 mg/dL (70-99); Potassium 5.4 mmol/L (3.3-5.1); Sodium Level 152 mmol/L (133-145)
[2024-11-13] MEDS: TITRATION PARAMETER CHANGE 1 EACH IV (17:16)
[2024-11-13] MEDS: Pantoprazole Sodium 40 MG in 0.9% Normal Saline (100mL MB+) 100 ML 330 MG IV (17:16)
[2024-11-13] MEDS: Insulin Glargine-YFGN 100 UNIT/ML Pen 8 UNIT SC (17:21)
[2024-11-13] MEDS: 0.9% Saline Lock 10 ML Syringe IV (17:21)
[2024-11-14] VITALS (36 sets, daily range): BP systolic 74–179; BP diastolic 33–127; PULSE 94–107; RESP 21–27; TEMP 37.6–38.3; O2SAT 92–100; BMI 39.9
[2024-11-14 06:57] LABS: International Normalized Ratio 1.9; Prothrombin Time (Protime)PT. 22.6 SECONDS (11.7-14.9)
[2024-11-14 07:01] LABS: Vancomycin, Random Level 16.1 ug/mL (0.0-15.0)
--- NOTE | 2024-11-14 07:17 | PCM.PN.HOSP ---
Reason for Visit Reason for Visit: Diagnoses Sepsis, unspecified organism (11/13/24) Elevated white blood cell count, unspecified (11/13/24) Obesity, unspecified (11/13/24) Hyperosmolality and hypernatremia (11/13/24) Acidosis, unspecified (11/13/24) Hyperkalemia (11/13/24) Obstructive sleep apnea (adult) (pediatric) (11/13/24) Encephalopathy, unspecified (11/13/24) Metabolic encephalopathy (11/13/24) Umbilical hernia with obstruction, without gangrene (11/13/24) Acute kidney failure, unspecified (11/13/24) Urinary tract infection, site not specified (11/13/24) Severe sepsis with septic shock (11/13/24) Abnormal coagulation profile (11/13/24) Unspecified open wound, left lower leg, initial encounter (11/13/24) Poisoning by 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s, accidental (unintentional), initial encounter (11/13/24) Subjective Subjective Still confused. Afebilre. Objective Data Objective Data Vital Signs: Vital Signs Temp Pulse Resp BP Pulse Ox O2 Del Method O2 Flow Rate 37.9 C H 94 23 H 107/58 L 93 Nasal Cannula 2 11/14/24 06:00 11/14/24 06:00 11/14/24 06:00 11/14/24 06:00 11/14/24 06:00 11/14/24 06:00 11/14/24 06:00 Oxygen Flow Rate (L/min) 2 Oxygen Delivery Method Nasal Cannula Weight: 126.2 kg Body Mass Index (BMI) 39.9 Intake & Output: Intake and Output for Last 24 Hours 11/12/24 11/13/24 11/14/24 23:59 23:59 23:59 Intake Total 5606.60 / 5616.00 169.15 / 169.15 Output Total 400 / 400 500 / 500 Balance 5206.60 / 5216.00 -330.85 / -330.85 Lab / Micro Data 11/14/24 06:05 11/14/24 06:05 Labs: Laboratory Results - last 24 hr 11/13/24 06:49: Urine Color Yellow, Urine Clarity Turbid, Urine pH 6.0, Ur Specific Rudolph 1.025, Urine Protein 500 H, Urine Glucose (UA) Normal, Urine Ketones 5 H, Urine Occult Blood 150 H, Urine Nitrite Positive H, Urine Bilirubin 6 H, Urine Urobilinogen 1 H, Ur Leukocyte Esterase 500 H, Urine RBC 10-25 SEEN, Urine WBC >100 SEEN, Ur Squamous Epith Cells 0-5 SEEN, Urine Bacteria 3+, Urine Mucus RARE, Urine Yeast 2+ 11/13/24 09:00: Sodium 156 H, Potassium 5.9 H, Chloride 121 H, Carbon Dioxide 19.1 L, Anion Gap 16 H, BUN 62 H, Creatinine 3.81 H, Estim Creat Clear Calc 21.38 L, Est GFR (MDRD) Non-Af 15 L, BUN/Creatinine Ratio 16.2, Glucose 95, Hemoglobin A1c 8.5, Serum Osmolality 346 H, Lactic Acid 2.1 H*, Calcium 7.0 L, Total Creatine Kinase 333 H, Triglycerides 74, Cholesterol 49, LDL Cholesterol, Calc 7, VLDL Cholesterol 15, HDL Cholesterol 27 L, Cholesterol/HDL Ratio 1.83, Vitamin B12 1089 H, Serum Folate 11.20, b-Hydroxybutyric mmol/L 1.2, TSH 4.180, Ethyl Alcohol < 10.1 11/13/24 12:15: Urine Osmolality 387, Urine Opiates Screen NEGATIVE, U Buprenorphine Qual NEGATIVE, Ur Oxycodone Screen PRESUMPTIVE POSITIVE, Urine Methadone Screen NEGATIVE, Urine Fentanyl Screen NEGATIVE, Ur Barbiturates Screen NEGATIVE, Ur Phencyclidine Scrn NEGATIVE, Ur Amphetamines Screen NEGATIVE, U Benzodiazepines Scrn NEGATIVE, Urine Cocaine Screen NEGATIVE, U Cannabinoids Screen NEGATIVE 11/13/24 16:10: Sodium 152 H, Potassium 5.4 H, Chloride 120 H, Carbon Dioxide 18.0 L, Anion Gap 14, BUN 65 H, Creatinine 3.59 H, Estim Creat Clear Calc 22.69 L, Est GFR (MDRD) Non-Af 17 L, BUN/Creatinine Ratio 18.2, Glucose 130 H, Calcium 7.6 11/14/24 06:05: PT 22.6 H, INR 1.9, Random Vancomycin 16.1 H Radiography Diagnostic Testing: Radiology Impression Chest X-Ray 11/13/24 04:10 IMPRESSION: Streaky perihilar opacities within bilateral lungs, likely atelectasis or infection. Reading Location: [facility] Chest X-Ray 11/13/24 14:45 IMPRESSION: Tip of the left PICC line projects over the superior vena cava. Prominent pulmonary interstitial markings. Can not exclude inflammation. Reading Location: [facility] Rhythm Strip Rhythm Strip: A-fib Rate: 99 Ectopy: PVC(s) Physical Exam Const alert and no apparent distress HEENT head/scalp atraumatic and moist oral mucous membranes Resp normal respiratory effort, no retractions, no use of accessory muscles and clear to auscultation bilaterally Cardio regular rate, regular rhythm, S1 normal heart sound and S2 normal heart sound GI normal to inspection, nondistended, normoactive bowel sounds, soft to palpation, non-tender and non-distended Extremity normal to inspection and full ROM Neuro Sensorium / Orientation: awake Assessment & Plan Assessment/Plan (1) Septic shock: PLAN: UTI v hernia v other. follow up cultures, thus far negative. (2) Incarcerated umbilical hernia: PLAN: surgery consulted. Not felt to be acute per general surgery. (3) UTI (urinary tract infection): PLAN: abx as above follow up cultures. (4) Leg wound, left: PLAN: subsequent visit had wound vac last admission and diverting monsalve given incontinence. wound care consult (5) Supratherapeutic INR: PLAN: INR up to 11.9 at one point. Now down to 1.9. received Vitamin K monitor (6) Hypernatremia: PLAN: Did receive D5W. Improved from 156 to 154. Recheck today. (7) Hyperkalemia: PLAN: Received D10 and insulin, Monitor (8) Metabolic encephalopathy: PLAN: 2/2 septic shock, CHRISTOPHER avoid potentiating medications. check head CT given coagulopathy (9) CHRISTOPHER (acute kidney injury): PLAN: Renal US negative. Continue to furosemide Continue IVF PLAN: Plan VTE prophylaxis: not indicated as with supratherapeutic INR. Charges/Coding Visit Charges Inpatient E&M: 02679 Subs Hosp L2
[2024-11-14 07:25] LABS: Absolute Lymphocyte Count 1.84 X10^3/uL (0.83-4.51); Absolute Neutrophil Count 8.8 X10^3/uL (2.0-7.7); Basophil# 0.11 X10^3/uL; Basophil% 0.9 % (0-1); Eosinophils% 1.7 % (0-5); Hematocrit 36.8 % (40-54); Hemoglobin 11.3 g/dL (13.0-16.5); Lymphocyte # 1.84 X10^3/ul (0.83-4.51); Lymphocyte % 15.7 % (19-41); Mean Corp Hgb Conc 30.7 g/dL (32-36); Mean Corpuscular Hgb 29.7 pg (27.0-32.0); Mean Corpuscular Volume 96.6 fL (80-94); Mean Platelet Vol. 9.8 fl (6.2-12.0); Monocyte# 0.63 X10^3/uL; Monocyte% 5.4 % (0-10); NRBC Flagged by Analyzer 0.2 % (0-5); Neutrophil # 8.82 X10^3/uL (2.7-7.7); Neutrophil % 75.4 % (47-70); POSITIVE MORPHOLOGY YES; Platelet Count 298 K/mm3 (150-450); RBC Distribution Width CV 15.7 % (11.6-14.6); RBC Distribution Width SD 56.4 fl (35.1-43.9); Red Blood Count 3.81 M/mm3 (4.6-6.2); White Blood Count 11.7 K/mm3 (4.4-11.0)
[2024-11-14 07:34] LABS: Differential Indicated SCAN CRITERIA MET
--- NOTE | 2024-11-14 07:40 | PCM.PN.INT ---
Assessment & Plan Assessment/Plan (1) UTI (urinary tract infection): (2) Septic shock: PLAN: Plan RECOMMENDATIONS: 1. Continue antimicrobial therapy as ordered. 2. Continue Levophed to maintain a mean arterial pressure at or above 65 mmHg. 3. Continue D5W as ordered. 4. Continue local wound care. 5. Recommend PAP therapy with naps and nightly. 6. Obtain renal ultrasound along with nephrology consultation. 7. The patient will remain n.p.o., pending improvement in mental status. IMPRESSIONS: 1. Septic shock The patient presented to the hospital with sepsis due to urinary tract source of infection with acute sepsis related organ dysfunction as evidenced by fluid refractory hypotension requiring vasopressor support, acute on chronic kidney disease, lactic acidemia and altered mental status. The patient did receive supplemental IV fluid hydration per sepsis protocol, but remained hypotensive. Accordingly, the patient has been maintained on Levophed, which will be continued to maintain a mean arterial pressure at or above 65 mmHg. In addition, broad-spectrum antimicrobials will be continued, pending culture workup. 2. Toxic/metabolic encephalopathy Related to #1. Avoid sedating medications for now. ABG was largely unrevealing this morning. Plan to continue supportive care, as outlined above. 3. Acute on chronic kidney disease Most likely prerenal in etiology in the setting of #1. Continue supportive measures with supplemental IV fluids and vasopressor support to maintain hemodynamic stability. Continue to monitor urine output. No current indication for renal replacement therapy. Will obtain renal ultrasound today. 4. Recent necrotizing soft tissue infection of left thigh/obstructive sleep apnea/diabetes mellitus/coagulopathy/COPD Complicates care, management, recovery and prognosis. Continue local wound care. Recommend PAP therapy with naps and nightly. The patient is going to remain n.p.o. for now, pending improvement in his mental status. TIME: 32 minutes of critical care time, independent of procedures, was spent addressing the patient's septic shock, metabolic encephalopathy, acute on chronic kidney disease, review of all data and collaboration with the care team. Subjective Subjective The patient was seen and examined at the bedside this morning. Events from the last 24 hours have been reviewed. The patient remains on Levophed at 6 mcg/min to maintain hemodynamic stability. The patient is currently documented to be overall net +4.8 L for the hospitalization. White blood cell count is stable at 12,000. INR is improved to 1.9. Sodium remains elevated at 150 with a potassium of 5.2 and chloride of 119. Creatinine is relatively stable at 3.68. ABG this morning demonstrated a pH of 7.4 with a pCO2 of 30 and PO2 of 81. Objective Data Objective Data The patient's most recent lab work, culture data and imaging studies have all been personally reviewed. Surface echocardiogram from October 2024 demonstrated stage I diastolic dysfunction. Blood and urine cultures are pending. Vital Signs: Vital Signs Temp Pulse Resp BP Pulse Ox O2 Del Method O2 Flow Rate 100.2 F H 94 23 H 107/58 L 93 Nasal Cannula 2 11/14/24 06:00 11/14/24 06:00 11/14/24 06:00 11/14/24 06:00 11/14/24 06:00 11/14/24 06:00 11/14/24 06:00 Oxygen Flow Rate (L/min) 2 Oxygen Delivery Method Nasal Cannula Weight: 278 lb 3.574 oz Body Mass Index (BMI) 39.9 Intake & Output: Intake and Output for Last 24 Hours 11/12/24 11/13/24 11/14/24 23:59 23:59 23:59 Intake Total 5606.60 / 5616.00 169.15 / 169.15 Output Total 400 / 400 500 / 500 Balance 5206.60 / 5216.00 -330.85 / -330.85 Lab / Micro Data Attestation: I reviewed the patient's lab results. 11/14/24 06:05 11/14/24 06:05 Labs: Laboratory Results - last 24 hr 11/13/24 06:49: Urine RBC 10-25 SEEN, Urine WBC >100 SEEN, Ur Squamous Epith Cells 0-5 SEEN, Urine Bacteria 3+, Urine Mucus RARE, Urine Yeast 2+ 11/13/24 09:00: Sodium 156 H, Potassium 5.9 H, Chloride 121 H, Carbon Dioxide 19.1 L, Anion Gap 16 H, BUN 62 H, Creatinine 3.81 H, Estim Creat Clear Calc 21.38 L, Est GFR (MDRD) Non-Af 15 L, BUN/Creatinine Ratio 16.2, Glucose 95, Hemoglobin A1c 8.5, Serum Osmolality 346 H, Lactic Acid 2.1 H*, Calcium 7.0 L, Total Creatine Kinase 333 H, Triglycerides 74, Cholesterol 49, LDL Cholesterol, Calc 7, VLDL Cholesterol 15, HDL Cholesterol 27 L, Cholesterol/HDL Ratio 1.83, Vitamin B12 1089 H, Serum Folate 11.20, b-Hydroxybutyric mmol/L 1.2, TSH 4.180, Ethyl Alcohol < 10.1 11/13/24 12:15: Urine Osmolality 387, Urine Opiates Screen NEGATIVE, U Buprenorphine Qual NEGATIVE, Ur Oxycodone Screen PRESUMPTIVE POSITIVE, Urine Methadone Screen NEGATIVE, Urine Fentanyl Screen NEGATIVE, Ur Barbiturates Screen NEGATIVE, Ur Phencyclidine Scrn NEGATIVE, Ur Amphetamines Screen NEGATIVE, U Benzodiazepines Scrn NEGATIVE, Urine Cocaine Screen NEGATIVE, U Cannabinoids Screen NEGATIVE 11/13/24 16:10: Sodium 152 H, Potassium 5.4 H, Chloride 120 H, Carbon Dioxide 18.0 L, Anion Gap 14, BUN 65 H, Creatinine 3.59 H, Estim Creat Clear Calc 22.69 L, Est GFR (MDRD) Non-Af 17 L, BUN/Creatinine Ratio 18.2, Glucose 130 H, Calcium 7.6 11/14/24 06:05: WBC 11.7 H, RBC 3.81 L, Hgb 11.3 L, Hct 36.8 L, MCV 96.6 H, MCH 29.7, MCHC 30.7 L, RDW Std Deviation 56.4 H, RDW Coeff of Jadon 15.7 H, Plt Count 298, MPV 9.8, Immature Gran % (Auto) 0.900, Neut % (Auto) 75.4 H, Lymph % (Auto) 15.7 L, [place] % (Auto) 5.4, Eos % (Auto) 1.7, Baso % (Auto) 0.9, Absolute Neuts (auto) 8.8 H, Absolute Lymphs (auto) 1.84, Nucleated RBC % 0.2, PT 22.6 H, INR 1.9, Random Vancomycin 16.1 H Radiography Diagnostic Testing: Radiology Impression Chest X-Ray 11/13/24 04:10 IMPRESSION: Streaky perihilar opacities within bilateral lungs, likely atelectasis or infection. Reading Location: [facility] Chest X-Ray 11/13/24 14:45 IMPRESSION: Tip of the left PICC line projects over the superior vena cava. Prominent pulmonary interstitial markings. Can not exclude inflammation. Reading Location: [place] [id number] Rhythm Strip Rhythm Strip: A-fib Rate: 99 Ectopy: PVC(s) Physical Exam Const Constitutional Narrative: Morbidly obese. Resting comfortably in bed. General Appearance: lethargic and ill appearing HEENT normocephalic and head/scalp atraumatic Teeth and Gingiva: poor dentition Eyes PERRL, EOMs intact bilaterally and conjunctivae normal Neck supple General: trachea midline Chest inspection of chest normal Resp normal respiratory effort Auscultation: Negative for rales, rhonchi or wheezes Cardio regular rate and regular rhythm GI normal to inspection, nondistended, normoactive bowel sounds Extremity no clubbing, cyanosis or edema Skin Skin Narrative: Groin wound present on admission Neuro CN's II-XII intact bilaterally and moves all extremities Psych Mood & Affect: flat affect Charges/Coding Procedures Hospitalists Procedures: [id number] Critical Care 1st Hr
[2024-11-14] MEDS: 0.9% Saline Lock 10 ML Syringe IV ×2 (07:56→20:42)
[2024-11-14] MEDS: Vancomycin HCl 2,000 MG in 0.9% Normal Saline (500mL Bag) 500 ML 250 MG IV (07:56)
[2024-11-14 07:58] LABS: Differential Comment SCANNED
[2024-11-14 08:26] LABS: Anion Gap 14 (5-15); BUN 68 mg/dL (4-19); BUN/Creat Ratio 18.4 RATIO (10-20); Calcium,Total 7.5 mg/dL (7.6-11.0); Carbon Dioxide 17.2 mmol/L (21.0-32.0); Chloride 119 mmol/L (98-108); Creatinine, Serum 3.68 mg/dL (0.70-1.20); EST Glomerular Filtration Rate 16 (>60); Estimated Creatinine Clearance 22.06 ml/min (50-250); Glucose 206 mg/dL (70-99); Potassium 5.2 mmol/L (3.3-5.1); Sodium Level 150 mmol/L (133-145)
--- NOTE | 2024-11-14 08:47 | US_ITS ---
EXAM: US Retroperitoneal Limited, Renal CLINICAL INDICATION: CHRISTOPHER TECHNIQUE: Real-time limited ultrasound of the retroperitoneum with image documentation. COMPARISON: No relevant prior studies available. FINDINGS: RIGHT KIDNEY: Unremarkable. No stones. No hydronephrosis. The right kidney measures 10.4 x 5.0 x 5.2 cm. LEFT KIDNEY: Unremarkable. No stones. No hydronephrosis. The left kidney measures 12.2 x 5.7 x 5.2 cm. BLADDER: Urinary bladder not visualized. US/Kidney and Bladder IMPRESSION: No acute findings in the retroperitoneum. Reading Location: [facility]
[2024-11-14 08:59] LABS: Allen Test Positive; Base Excess -6 mmol/L (-2 to +2); Bicarbonate 18.8 mmol/L (22-26); Blood Gas Specimen Type ART; Mode Not entered; O2 Delivery Device Cannula; PO2 81 mmHG (75-100); SITE L Radial; SO2 96 % (95-99); Total Carbon Dioxide 20 mmol/L; pCO2 30.1 mmHg (35-45)
[2024-11-14] MEDS: Norepinephrine 8 MG in 0.9% Normal Saline (250mL Bag) 242 ML 11.3 MG CONT INF (09:24)
[2024-11-14] MEDS: Dextrose 5%-Water (1000mL Bag) 1,000 ML 100 ML IV ×2 (09:38→20:08)
[2024-11-14] MEDS: Pantoprazole Sodium 40 MG in 0.9% Normal Saline (100mL MB+) 100 ML 330 MG IV (10:25)
[2024-11-14] MEDS: 0.9% Normal Saline (100mL Bag) 100 ML 15 ML IV (10:26)
--- NOTE | 2024-11-14 10:30 | CASEMGMT ---
Social Work- HOLLI returned call to pt nephew, Alvin. Alvin reports that he is out of the country, but returning late this evening. Alvin had concerns about pt missing an appointment with Dr Gorman today, reporting that there was to be an infusion of some type today scheduled as well. Alvin has concerns about pt colitis potentially impacting current medical concerns. HOLLI passed concerns on to bedside nurse. HOLLI remains available to follow. NOEL Ochoa
[2024-11-14] MEDS: Meropenem 1 GM in 0.9% Normal Saline (100mL MB+) 100 ML IV ×2 (10:43→20:43)
[2024-11-14] MEDS: Insulin Lispro 100 UNIT/ML INSULN.PEN SC ×2 (11:22→17:54)
[2024-11-14 11:36] LABS: Bedside Glucose 184 mg/dL (74-106)
--- NOTE | 2024-11-14 11:37 | PCM.CONS.R ---
Documented by User: ANTONIO Madrid 11/14/24 12:00 Assessment & Plan Assessment/Plan (1) CHRISTOPHER (acute kidney injury): (2) Hyperkalemia: (3) Hypernatremia: (4) Sepsis: QUALIFIERS: Sepsis acute organ dysfunction status: with acute organ dysfunction Sepsis type: sepsis due to unspecified organism Severe sepsis acute organ dysfunction type: encephalopathy Severe sepsis shock status: with septic shock Qualified Code(s): A41.9 - Sepsis, unspecified organism; R65.21 - Severe sepsis with septic shock; G93.41 - Metabolic encephalopathy PLAN: Plan This is a 79-year-old male with past medical history significant for hypertension, hyperlipidemia, diabetes mellitus type 2, SILVER on CPAP, history of A-fib on Coumadin, history of chronic diastolic heart failure (echo from October 2024: EF 65%, stage I diastolic dysfunction, mild left ventricular hypertrophy, moderate biatrial dilatation), ulcerative colitis, COPD who was brought to the emergency room from longterm for altered mental status changes. Patient was recently admitted to the hospital early October for acute decompensated heart failure but also found to have left groin/thigh wound with abscess that progressed to necrotizing deep soft tissue infection and underwent I&D with wound VAC placement. Nephrology consulted for elevated creatinine - CHRISTOPHER superimposed on possible CKD stage IIIa; during last hospitalization from October 09 to October 27 serum creatinine ranged 1 at best peaking up to 1.8 but had leveled off around 1.3 to 1.4. For this admission, creatinine 2.3 on admission, creatinine peaked at 3.82 on 11/13, today creatinine is 3.68 mg/dL. Patient is nonoliguric, he has Georges. Blood pressures low and patient is on Levophed. Potassium was high on admission 5.9 improved today to 5.2. Bicarb 17. Urine output so far today 600 mL. CHRISTOPHER possibly from sepsis, hypotension with poor renal perfusion. There is no acute indication for renal placement therapy. Baseline creatinine is around 1 to 1.4 mg/dL as of recent. Renal ultrasound ordered for today. Noncontrast CT of abdomen and pelvis kidneys normal in size and configuration, mild to moderate perinephric stranding around right kidney and proximal right ureter. Patient is currently n.p.o., sodium levels have been ranging around 150-156 since admission, today sodium 150 and he is on D5W. Patient is NPO. Further orders forthcoming as hospitalization evolves, thank you for allowing us to participate in the care of Mr. Oshea. Assessment and plan reviewed with Dr. Laureano. HPI Consult Data Date of Consult: 11/14/24 HPI Narrative HPI Narrative: AVELINA OSHEA, is a 79 M with past medical history significant for hypertension, hyperlipidemia, diabetes mellitus type 2, SILVER on CPAP, history of A-fib on Coumadin, history of chronic diastolic heart failure (echo from October 2024: EF 65%, stage I diastolic dysfunction, mild left ventricular hypertrophy, moderate biatrial dilatation), ulcerative colitis, COPD who was brought to the emergency room from longterm for altered mental status changes. Patient was recently admitted to the hospital early October for acute decompensated heart failure but also found to have left groin/thigh wound with abscess that progressed to necrotizing deep soft tissue infection and underwent I&D with wound VAC placement and antibiotics at discharge which included doxycycline Flagyl and cefdinir. For this admission in the emergency room patient was noted to have white count of 12,000, he was hypotensive in the emergency room and admitted to ICU for sepsis, started on IV pressors. Nephrology consulted in view of elevated creatinine. Patient is alert to name, confused and lethargic therefore information is gathered from the chart. Not clear if patient is seen by nephrology in past. In reviewing past creatinine trends baseline creatinine is probably ranging around 1 to 1.4 mg/dL. For this admission creatinine 2.36 on 11/11, creatinine peaked to 3.8 on 11/13 and today creatinine is 3.68 mg/dL. [facility] Medical History Anxiety disorder, unspecified Chronic diastolic (congestive) heart failure Other ulcerative colitis without complications Paroxysmal atrial fibrillation Type 2 diabetes mellitus with diabetic chronic kidney disease Necrotizing fasciitis Anemia, unspecified CHF (congestive heart failure) History of COPD Rash History of steroid therapy Tremor On home oxygen therapy COPD (chronic obstructive pulmonary disease) Hoarseness Chronic cough History of edema Normal Holter exam Hypertension Anemia Hyperbilirubinemia Transaminitis Thrombocytopenia Obesity Wears glasses Wears partial dentures Cancer Arthritis High cholesterol Tremor of both hands Ulcerated colon Shortness of breath on exertion Leg cramps History of stress test History of echocardiogram Cardiology follow-up encounter History of atrial fibrillation MGUS (monoclonal gammopathy of unknown significance) [place]ouck light chain disease Ulcerative colitis Colitis Coagulopathy COVID-19 COPD (chronic obstructive pulmonary disease) HLD (hyperlipidemia) Anxiety Diabetes Former smoker CPAP (continuous positive airway pressure) dependence Sleep apnea Congestive heart failure (CHF) Atrial fibrillation Lung cancer Lung mass Smoking greater than 30 pack years 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, adult half-way current use of 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 Paroxysmal atrial fibrillation Chronic diastolic heart failure Paroxysmal atrial flutter Pure hypercholesterolemia Type 2 diabetes mellitus Essential hypertension SILVER (obstructive sleep apnea) CKD (chronic kidney disease) Ulcerative colitis SOB (shortness of breath) Home Medications ?Medication ?Instructions ?Recorded ?Last Taken ?Type potassium chloride 20 mEq 40 meq PO DAILY Low potassium 09/27/15 10/06/24 History tablet,extended release(part/cryst) atorvastatin 40 mg tablet 40 mg PO QHS Cholesterol 08/20/16 10/23/24 History metformin 500 mg tablet 500 mg PO BID Diabetes 05/09/19 10/24/24 History fexofenadine 180 mg tablet 180 mg PO DAILY PRN Allergic 01/11/22 07/10/24 History Symptoms prazosin 2 mg capsule 2 mg PO BID bp 08/08/22 10/24/24 History vedolizumab 300 mg intravenous 300 mg IV .per order 03/21/23 07/10/24 History solution (Entyvio) tiotropium 2.5 mcg-olodaterol 2.5 2 puff inhalation DAILY SOB #3 ea 04/22/24 10/24/24 Rx mcg/actuation mist for inhalation (Stiolto Respimat) dicyclomine 20 mg tablet 20 mg PO TID 10/09/24 10/24/24 History ketoconazole 2 % shampoo 1 applic topical .COMPLEX 10/09/24 Unknown History furosemide 40 mg tablet (Lasix) 40 mg PO DAILY #30 tabs 10/18/24 10/24/24 Rx insulin glargine-yfgn 100 unit/mL 8 unit (0.08 mL) subcut DINNER #15 10/18/24 10/23/24 Rx (3 mL) subcutaneous pen mL insulin glargine-yfgn 100 unit/mL 15 unit (0.15 mL) subcut DAILY #15 10/18/24 10/24/24 Rx (3 mL) subcutaneous pen mL pen needle, diabetic 29 gauge #100 ea 10/18/24 Unknown Rx warfarin 2.5 mg tablet 2.5 mg PO SUTUWETHFRSA blood 10/24/24 10/24/24 History thinner acetaminophen 325 mg tablet 650 mg (2 x 325 mg) PO Q6H PRN PRN 10/28/24 Unknown Rx Pain 1-10 Or Fever >100.7 #0 tabs metoprolol tartrate 25 mg tablet 25 mg PO BID #0 tabs 10/28/24 Unknown Rx oxycodone 5 mg tablet 5 mg PO Q8H PRN pain (scale score 10/28/24 Unknown Rx 7-10) 3 days #12 tabs pantoprazole 40 mg tablet,delayed 40 mg PO BID #0 tabs 10/28/24 Unknown Rx release aluminum-magnesium hydroxide 200 5 ml PO Q4H PRN gi distress 11/13/24 Unknown History mg-200 mg/5 mL oral suspension (MAG-AL) ascorbic acid (vitamin C) 500 mg 0.5 g PO DAILY 11/13/24 Unknown History tablet (C-500) dapagliflozin propanediol 5 mg 5 mg PO DAILY 11/13/24 Unknown History tablet magnesium oxide 400 mg PO BID 11/13/24 Unknown History melatonin 5 mg tablet 5 mg PO QHS 11/13/24 Unknown History multivitamin,kb-[id number]-usbwdknt 1 tab .ROUTE DAILY 11/13/24 Unknown History umeclidinium 62.5 mcg-vilanterol 1 inh inhalation DAILY 11/13/24 Unknown History 25 mcg/actuation powdr for inhalation (Anoro Ellipta) flecainide 50 mg tablet 50 mg PO Q12H #180 TABLETS 11/14/24 Unknown Rx Allergy/AdvReac Type Severity Reaction Status Date / Time amlodipine Allergy Severe Rash Verified 11/13/24 04:22 Penicillins Allergy Hives Verified 11/13/24 04:22 azithromycin AdvReac Diarrhea Verified 11/13/24 04:22 celecoxib (From Celebrex) AdvReac RECTAL Verified 11/13/24 04:22 BLEEDING Family History Mother Colon cancer Heart disease Father CAD (coronary artery disease) Sister Diabetes Brother Heart disease Diabetes Surgical History History of ERCP History of intraocular lens implant History of knee surgery History of bilateral hip replacements History of radiofrequency ablation procedure for cardiac arrhythmia (~08/11/15) Social History household members: spouse Smoking Status: Former smoker how long ago did patient quit smokin + years alcohol intake: never substance use type: does not use caffeine: Yes Type: coffee Number of servings: 3 ROS ROS Narrative Unable to obtain Physical Exam Narrative Resting quietly, no apparent distress. Answers to name S1, S2, RRR Breath sounds clear anteriorly. No rales or rhonchi. On O2 nasal cannula Abdomen soft No edema Georges with clear yellow urine in bag Lab / Micro Data 11/14/24 06:05 11/14/24 06:05 Labs: Laboratory Results - last 24 hr 11/13/24 09:00: Serum Osmolality 346 H, b-Hydroxybutyric mmol/L 1.2 11/13/24 12:15: Urine Osmolality 387, Urine Opiates Screen NEGATIVE, U Buprenorphine Qual NEGATIVE, Ur Oxycodone Screen PRESUMPTIVE POSITIVE, Urine Methadone Screen NEGATIVE, Urine Fentanyl Screen NEGATIVE, Ur Barbiturates Screen NEGATIVE, Ur Phencyclidine Scrn NEGATIVE, Ur Amphetamines Screen NEGATIVE, U Benzodiazepines Scrn NEGATIVE, Urine Cocaine Screen NEGATIVE, U Cannabinoids Screen NEGATIVE 11/13/24 16:10: Sodium 152 H, Potassium 5.4 H, Chloride 120 H, Carbon Dioxide 18.0 L, Anion Gap 14, BUN 65 H, Creatinine 3.59 H, Estim Creat Clear Calc 22.69 L, Est GFR (MDRD) Non-Af 17 L, BUN/Creatinine Ratio 18.2, Glucose 130 H, Calcium 7.6 11/14/24 06:05: WBC 11.7 H, RBC 3.81 L, Hgb 11.3 L, Hct 36.8 L, MCV 96.6 H, MCH 29.7, MCHC 30.7 L, RDW Std Deviation 56.4 H, RDW Coeff of Jadon 15.7 H, Plt Count 298, MPV 9.8, Immature Gran % (Auto) 0.900, Neut % (Auto) 75.4 H, Lymph % (Auto) 15.7 L, [place] % (Auto) 5.4, Eos % (Auto) 1.7, Baso % (Auto) 0.9, Absolute Neuts (auto) 8.8 H, Absolute Lymphs (auto) 1.84, Nucleated RBC % 0.2, Differential Comment SCANNED, PT 22.6 H, INR 1.9, Sodium 150 H, Potassium 5.2 H, Chloride 119 H, Carbon Dioxide 17.2 L, Anion Gap 14, BUN 68 H, Creatinine 3.68 H, Estim Creat Clear Calc 22.06 L, Est GFR (MDRD) Non-Af 16 L, BUN/Creatinine Ratio 18.4, Glucose 206 H, Calcium 7.5 L, Random Vancomycin 16.1 H 11/14/24 11:18: POC Glucose 184 H Micro: Microbiology 11/13/24 06:49 Urine, Catheterized Urine Culture - Preliminary Gram negative eric Yeast Like Organism 11/13/24 04:35 Blood Culture (Wb) - Cvp Cath Tip Blood Culture - Preliminary ABG Data ABG results: ABG 11/14/24 08:56 Specimen Type ART Sample Site L Radial pH 7.40 Bicarbonate Actual 18.8 L Total CO2 20 Base Excess -6 L O2 Saturation 96 O2 % 2.0 ABG pCO2 30.1 L ABG pO2 81 Blair Test Positive O2 Delivery Device Cannula Vent Mode Not entered Rhythm Strip Rhythm Strip: A-fib Rate: 99 Ectopy: PVC(s) Imaging Radiology Impression Chest X-Ray 11/13/24 04:10 IMPRESSION: Streaky perihilar opacities within bilateral lungs, likely atelectasis or infection. Reading Location: [facility] Chest X-Ray 11/13/24 14:45 IMPRESSION: Tip of the left PICC line projects over the superior vena cava. Prominent pulmonary interstitial markings. Can not exclude inflammation. Reading Location: [facility] Documented by User: Dr. Evin Laureano MD 11/14/24 17:57 Assessment & Plan Assessment/Plan (1) CHRISTOPHER (acute kidney injury): (2) Hyperkalemia: (3) Hypernatremia: (4) Sepsis: QUALIFIERS: Sepsis acute organ dysfunction status: with acute organ dysfunction Sepsis type: sepsis due to unspecified organism Severe sepsis acute organ dysfunction type: encephalopathy Severe sepsis shock status: with septic shock Qualified Code(s): A41.9 - Sepsis, unspecified organism; R65.21 - Severe sepsis with septic shock; G93.41 - Metabolic encephalopathy PLAN: Plan This is a 79-year-old male with past medical history significant for hypertension, hyperlipidemia, diabetes mellitus type 2, SILVER on CPAP, history of A-fib on Coumadin, history of chronic diastolic heart failure (echo from October 2024: EF 65%, stage I diastolic dysfunction, mild left ventricular hypertrophy, moderate biatrial dilatation), ulcerative colitis, COPD who was brought to the emergency room from longterm for altered mental status changes. Patient was recently admitted to the hospital early October for acute decompensated heart failure but also found to have left groin/thigh wound with abscess that progressed to necrotizing deep soft tissue infection and underwent I&D with wound VAC placement. Nephrology consulted for elevated creatinine - CHRISTOPHER superimposed on possible CKD stage IIIa; during last hospitalization from October 09 to October 27 serum creatinine ranged 1 at best peaking up to 1.8 but had leveled off around 1.3 to 1.4. For this admission, creatinine 2.3 on admission, creatinine peaked at 3.82 on 11/13, today creatinine is 3.68 mg/dL. Patient is nonoliguric, he has Georges. Blood pressures low and patient is on Levophed. Potassium was high on admission 5.9 improved today to 5.2. Bicarb 17. Urine output so far today 600 mL. CHRISTOPHER possibly from sepsis, hypotension with poor renal perfusion. There is no acute indication for renal placement therapy. Baseline creatinine is around 1 to 1.4 mg/dL as of recent. Renal ultrasound ordered for today. Noncontrast CT of abdomen and pelvis kidneys normal in size and configuration, mild to moderate perinephric stranding around right kidney and proximal right ureter. Patient is currently n.p.o., sodium levels have been ranging around 150-156 since admission, today sodium 150 and he is on D5W. Patient is NPO. Further orders forthcoming as hospitalization evolves, thank you for allowing us to participate in the care of Mr. Oshea. Assessment and plan reviewed with Dr. Laureano. Addendum abiel [employer] urine output is present continue supportive therapy for now HPI Consult Data Date of Consult: 11/14/24 [facility] Medical History Anxiety disorder, unspecified Chronic diastolic (congestive) heart failure Other ulcerative colitis without complications Paroxysmal atrial fibrillation Type 2 diabetes mellitus with diabetic chronic kidney disease Necrotizing fasciitis Anemia, unspecified CHF (congestive heart failure) History of COPD Rash History of steroid therapy Tremor On home oxygen therapy COPD (chronic obstructive pulmonary disease) Hoarseness Chronic cough History of edema Normal Holter exam Hypertension Anemia Hyperbilirubinemia Transaminitis Thrombocytopenia Obesity Wears glasses Wears partial dentures Cancer Arthritis High cholesterol Tremor of both hands Ulcerated colon Shortness of breath on exertion Leg cramps History of stress test History of echocardiogram Cardiology follow-up encounter History of atrial fibrillation MGUS (monoclonal gammopathy of unknown significance) [place] light chain disease Ulcerative colitis Colitis Coagulopathy COVID-19 COPD (chronic obstructive pulmonary disease) HLD (hyperlipidemia) Anxiety Diabetes Former smoker CPAP (continuous positive airway pressure) dependence Sleep apnea Congestive heart failure (CHF) Atrial fibrillation Lung cancer Lung mass Smoking greater than 30 pack years 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, adult 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 of 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 Paroxysmal atrial fibrillation Chronic diastolic heart failure Paroxysmal atrial flutter Pure hypercholesterolemia Type 2 diabetes mellitus Essential hypertension SILVER (obstructive sleep apnea) CKD (chronic kidney disease) Ulcerative colitis SOB (shortness of breath) Home Medications ?Medication ?Instructions ?Recorded ?Last Taken ?Type potassium chloride 20 mEq 40 meq PO DAILY Low potassium 09/27/15 10/06/24 History tablet,extended release(part/cryst) atorvastatin 40 mg tablet 40 mg PO QHS Cholesterol 08/20/16 10/23/24 History metformin 500 mg tablet 500 mg PO BID Diabetes 05/09/19 10/24/24 History fexofenadine 180 mg tablet 180 mg PO DAILY PRN Allergic 01/11/22 07/10/24 History Symptoms prazosin 2 mg capsule 2 mg PO BID bp 08/08/22 10/24/24 History vedolizumab 300 mg intravenous 300 mg IV .per order 03/21/23 07/10/24 History solution (Entyvio) tiotropium 2.5 mcg-olodaterol 2.5 2 puff inhalation DAILY SOB #3 ea 04/22/24 10/24/24 Rx mcg/actuation mist for inhalation (Stiolto Respimat) dicyclomine 20 mg tablet 20 mg PO TID 10/09/24 10/24/24 History ketoconazole 2 % shampoo 1 applic topical .COMPLEX 10/09/24 Unknown History furosemide 40 mg tablet (Lasix) 40 mg PO DAILY #30 tabs 10/18/24 10/24/24 Rx insulin glargine-yfgn 100 unit/mL 8 unit (0.08 mL) subcut DINNER #15 10/18/24 10/23/24 Rx (3 mL) subcutaneous pen mL insulin glargine-yfgn 100 unit/mL 15 unit (0.15 mL) subcut DAILY #15 10/18/24 10/24/24 Rx (3 mL) subcutaneous pen mL pen needle, diabetic 29 gauge #100 ea 10/18/24 Unknown Rx warfarin 2.5 mg tablet 2.5 mg PO SUTUWETHFRSA blood 10/24/24 10/24/24 History thinner acetaminophen 325 mg tablet 650 mg (2 x 325 mg) PO Q6H PRN PRN 10/28/24 Unknown Rx Pain 1-10 Or Fever >100.7 #0 tabs metoprolol tartrate 25 mg tablet 25 mg PO BID #0 tabs 10/28/24 Unknown Rx oxycodone 5 mg tablet 5 mg PO Q8H PRN pain (scale score 10/28/24 Unknown Rx 7-10) 3 days #12 tabs pantoprazole 40 mg tablet,delayed 40 mg PO BID #0 tabs 10/28/24 Unknown Rx release aluminum-magnesium hydroxide 200 5 ml PO Q4H PRN gi distress 11/13/24 Unknown History mg-200 mg/5 mL oral suspension (MAG-AL) ascorbic acid (vitamin C) 500 mg 0.5 g PO DAILY 11/13/24 Unknown History tablet (C-500) dapagliflozin propanediol 5 mg 5 mg PO DAILY 11/13/24 Unknown History tablet magnesium oxide 400 mg PO BID 11/13/24 Unknown History melatonin 5 mg tablet 5 mg PO QHS 11/13/24 Unknown History multivitamin,qs-ofni-uozaocoj 1 tab .ROUTE DAILY 11/13/24 Unknown History umeclidinium 62.5 mcg-vilanterol 1 inh inhalation DAILY 11/13/24 Unknown History 25 mcg/actuation powdr for inhalation (Anoro Ellipta) flecainide 50 mg tablet 50 mg PO Q12H #180 TABLETS 11/14/24 Unknown Rx Allergy/AdvReac Type Severity Reaction Status Date / Time amlodipine Allergy Severe Rash Verified 11/13/24 04:22 Penicillins Allergy Hives Verified 11/13/24 04:22 azithromycin AdvReac Diarrhea Verified 11/13/24 04:22 celecoxib (From Celebrex) AdvReac RECTAL Verified 11/13/24 04:22 BLEEDING Family History Mother Colon cancer Heart disease Father CAD (coronary artery disease) Sister Diabetes Brother Heart disease Diabetes Surgical History History of ERCP History of intraocular lens implant History of knee surgery History of bilateral hip replacements History of radiofrequency ablation procedure for cardiac arrhythmia (~08/11/15) Social History household members: spouse Smoking Status: Former smoker how long ago did patient quit smokin + years alcohol intake: never substance use type: does not use caffeine: Yes Type: coffee Number of servings: 3 Lab / Micro Data 11/14/24 06:05 11/14/24 06:05
--- NOTE | 2024-11-14 13:55 | CT_ITS ---
EXAM: CT Head Without Intravenous Contrast CLINICAL INDICATION: ENCEPHALOPATHY TECHNIQUE: Axial computed tomography images of the head/brain without intravenous contrast. This CT exam was performed using one or more of the following dose reduction techniques: automated exposure control, adjustment of the mA and/or kV according to patient size, and/or use of iterative reconstruction technique. COMPARISON: CT Head dated 10/16/2024 FINDINGS: BRAIN AND EXTRA-AXIAL SPACES: The cerebral and cerebellar sulci are prominent consistent with brain atrophy. Areas of decreased attenuation in the deep cerebral white matter are consistent with small vessel ischemic/degenerative changes. No acute intracranial hemorrhage, midline shift or mass effect. If symptoms persist, further evaluation with MRI is recommended. BONES/JOINTS: Unremarkable. No acute fracture. SOFT TISSUES: Unremarkable. SINUSES: Unremarkable as visualized. No acute sinusitis. MASTOID AIR CELLS: Unremarkable as visualized. No mastoid effusion. CT/Brain/Head without Contrast IMPRESSION: 1. Generalized brain atrophy. 2. Small vessel ischemic/degenerative changes. 3. No acute intracranial hemorrhage, midline shift or mass effect. If symptoms persist, further evaluation with MRI is recommended. 4. No significant change from the prior exam. Reading [facility]
[2024-11-14 14:38] LABS: Urea Nitrogen, Urine 885 mg/dL (NO RANGE EST.)
[2024-11-14 16:25] LABS: Ammonia 12.2 umol/L (16-60)
[2024-11-14] MEDS: Insulin Glargine-YFGN 100 UNIT/ML Pen 8 UNIT SC (17:54)
[2024-11-14 18:13] LABS: Bedside Glucose 184 mg/dL (74-106)
[2024-11-14] MEDS: Menthol/Lanolin/Calamine/Znox 113 GM Tube 1 APPLIC TOPICAL (20:42)
[2024-11-15] VITALS (44 sets, daily range): BP systolic 91–145; BP diastolic 42–90; PULSE 96–109; RESP 20–31; TEMP 38.1–38.4; O2SAT 90–98; BMI 40.4
[2024-11-15] MEDS: Insulin Lispro 100 UNIT/ML INSULN.PEN SC ×4 (00:26→18:10)
[2024-11-15] MEDS: 0.9% Saline Lock 10 ML Syringe IV ×4 (06:05→18:20)
[2024-11-15] MEDS: Menthol/Lanolin/Calamine/Znox 113 GM Tube 1 APPLIC TOPICAL ×3 (06:06→21:33)
[2024-11-15 06:31] LABS: Absolute Lymphocyte Count 2.08 X10^3/uL (0.83-4.51); Absolute Neutrophil Count 7.9 X10^3/uL (2.0-7.7); Basophil# 0.09 X10^3/uL; Basophil% 0.8 % (0-1); Eosinophil# 0.13 X10^3/uL; Eosinophils% 1.2 % (0-5); Hematocrit 36.3 % (40-54); Hemoglobin 11.2 g/dL (13.0-16.5); Lymphocyte # 2.08 X10^3/ul (0.83-4.51); Lymphocyte % 19.3 % (19-41); Mean Corp Hgb Conc 30.9 g/dL (32-36); Mean Corpuscular Hgb 29.6 pg (27.0-32.0); Mean Platelet Vol. 9.4 fl (6.2-12.0); Monocyte# 0.57 X10^3/uL; Monocyte% 5.3 % (0-10); NRBC Flagged by Analyzer 0.2 % (0-5); Neutrophil # 7.85 X10^3/uL (2.7-7.7); Neutrophil % 72.7 % (47-70); POSITIVE MORPHOLOGY YES; Platelet Count 229 K/mm3 (150-450); RBC Distribution Width CV 15.6 % (11.6-14.6); RBC Distribution Width SD 55.8 fl (35.1-43.9); Red Blood Count 3.78 M/mm3 (4.6-6.2); White Blood Count 10.8 K/mm3 (4.4-11.0)
[2024-11-15 06:32] LABS: Bedside Glucose 182 mg/dL (74-106)
[2024-11-15] MEDS: Norepinephrine 8 MG in 0.9% Normal Saline (250mL Bag) 242 ML 9.4 MG CONT INF (06:36)
[2024-11-15 06:49] LABS: International Normalized Ratio 2.3; Prothrombin Time (Protime)PT. 26.2 SECONDS (11.7-14.9)
--- NOTE | 2024-11-15 07:02 | PCM.PN.HOSP ---
Reason for Visit Reason for Visit: Diagnoses Sepsis, unspecified organism (11/13/24) Elevated white blood cell count, unspecified (11/13/24) Obesity, unspecified (11/13/24) Hyperosmolality and hypernatremia (11/13/24) Acidosis, unspecified (11/13/24) Hyperkalemia (11/13/24) Obstructive sleep apnea (adult) (pediatric) (11/13/24) Encephalopathy, unspecified (11/13/24) Metabolic encephalopathy (11/13/24) Umbilical hernia with obstruction, without gangrene (11/13/24) Acute kidney failure, unspecified (11/13/24) Urinary tract infection, site not specified (11/13/24) Severe sepsis with septic shock (11/13/24) Abnormal coagulation profile (11/13/24) Unspecified open wound, left lower leg, initial encounter (11/13/24) Poisoning by 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s, accidental (unintentional), initial encounter (11/13/24) Subjective Subjective More alert. No new issues. Objective Data Objective Data Vital Signs: Vital Signs Temp Pulse Resp BP Pulse Ox O2 Del Method O2 Flow Rate 38.3 C H 102 H 22 H 102/80 96 Room Air 1 11/14/24 22:00 11/15/24 06:00 11/15/24 06:00 11/15/24 06:00 11/15/24 06:00 11/15/24 06:00 11/15/24 04:00 Oxygen Flow Rate (L/min) 1 Oxygen Delivery Method Room Air Weight: 127.8 kg Body Mass Index (BMI) 40.4 Intake & Output: Intake and Output for Last 24 Hours 11/13/24 11/14/24 11/15/24 23:59 23:59 23:59 Intake Total 5606.60 / 5616.00 3312.03 / 3325.13 1079.79 / 1079.79 Output Total 400 / 400 900 / 900 675 / 675 Balance 5206.60 / 5216.00 2412.03 / 2425.13 404.79 / 404.79 Lab / Micro Data 11/15/24 06:13 11/15/24 06:13 Labs: Laboratory Results - last 24 hr 11/14/24 06:05: WBC 11.7 H, RBC 3.81 L, Hgb 11.3 L, Hct 36.8 L, MCV 96.6 H, MCH 29.7, MCHC 30.7 L, RDW Std Deviation 56.4 H, RDW Coeff of Jadon 15.7 H, Plt Count 298, MPV 9.8, Immature Gran % (Auto) 0.900, Neut % (Auto) 75.4 H, Lymph % (Auto) 15.7 L, [place] % (Auto) 5.4, Eos % (Auto) 1.7, Baso % (Auto) 0.9, Absolute Neuts (auto) 8.8 H, Absolute Lymphs (auto) 1.84, Nucleated RBC % 0.2, Differential Comment SCANNED, Sodium 150 H, Potassium 5.2 H, Chloride 119 H, Carbon Dioxide 17.2 L, Anion Gap 14, BUN 68 H, Creatinine 3.68 H, Estim Creat Clear Calc 22.06 L, Est GFR (MDRD) Non-Af 16 L, BUN/Creatinine Ratio 18.4, Glucose 206 H, Calcium 7.5 L 11/14/24 11:18: POC Glucose 184 H 11/14/24 13:36: Urine Creatinine 135.00, Urine Urea Nitrogen 885 11/14/24 15:52: Ammonia 12.2 L 11/14/24 17:53: POC Glucose 184 H 11/15/24 06:08: POC Glucose 182 H 11/15/24 06:13: PT 26.2 H, INR 2.3 Micro: Microbiology 11/13/24 06:49 Urine, Catheterized Urine Culture - Preliminary Gram negative eric Yeast Like Organism 11/13/24 04:35 Blood Culture (Wb) - Cvp Cath Tip Blood Culture - Preliminary ABG Data ABG results: ABG 11/14/24 08:56 Specimen Type ART Sample Site L Radial pH 7.40 Bicarbonate Actual 18.8 L Total CO2 20 Base Excess -6 L O2 Saturation 96 O2 % 2.0 ABG pCO2 30.1 L ABG pO2 81 Blair Test Positive O2 Delivery Device Cannula Vent Mode Not entered Radiography Diagnostic Testing: Radiology Impression Renal Ultrasound 11/14/24 08:47 IMPRESSION: No acute findings in the retroperitoneum. Reading [facility] Brain CT 04/10/25 13:55 IMPRESSION: 1. Generalized brain atrophy. 2. Small vessel ischemic/degenerative changes. 3. No acute intracranial hemorrhage, midline shift or mass effect. If symptoms persist, further evaluation with MRI is recommended. 4. No significant change from the prior exam. Reading Location: [facility] Rhythm Strip Rhythm Strip: A-fib Rate: 99 Ectopy: PVC(s) Physical Exam Const alert and no apparent distress HEENT head/scalp atraumatic and moist oral mucous membranes Resp normal respiratory effort, no retractions, no use of accessory muscles and clear to auscultation bilaterally Cardio regular rate, regular rhythm, S1 normal heart sound and S2 normal heart sound GI normal to inspection, nondistended, normoactive bowel sounds, soft to palpation, non-tender and non-distended Extremity normal to inspection and full ROM Neuro Sensorium / Orientation: awake and alert Assessment & Plan Assessment/Plan (1) Septic shock: PLAN: UTI v hernia v other. follow up cultures, thus far showing GNR. BCx showing GPO 1 of 2 (may be contaminant) has been on norepinephrine gtt since the . (2) UTI (urinary tract infection): PLAN: abx as above follow up cultures. (3) CHRISTOPHER (acute kidney injury): PLAN: Renal US negative. Continue to furosemide Improving with IVF. (4) Metabolic encephalopathy: PLAN: 2/2 septic shock, CHRISTOPHER avoid potentiating medications. head CT negative. Ammonia low, so no hepatic encephalopathy (5) Incarcerated umbilical hernia: PLAN: surgery consulted. Not felt to be acute per general surgery. (6) Leg wound, left: PLAN: subsequent visit had wound vac last admission and diverting monsalve given incontinence. wound care consult (7) Supratherapeutic INR: PLAN: INR up to 11.9 at one point. Now down to 1.9. received Vitamin K monitor (8) Hypernatremia: PLAN: Did receive D5W. Improved from 156 to 154. Recheck today. (9) Hyperkalemia: PLAN: Resolved with treatment. Received D10 and insulin, Monitor PLAN: Plan VTE prophylaxis: not indicated as with supratherapeutic INR. Charges/Coding Visit Charges Inpatient E&M: 29138 Subs Hosp L2
[2024-11-15 07:10] LABS: Anion Gap 12 (5-15); BUN 64 mg/dL (4-19); Calcium,Total 7.3 mg/dL (7.6-11.0); Carbon Dioxide 17.7 mmol/L (21.0-32.0); Chloride 118 mmol/L (98-108); Creatinine, Serum 3.06 mg/dL (0.70-1.20); EST Glomerular Filtration Rate 20 (>60); Estimated Creatinine Clearance 26.71 ml/min (50-250); Glucose 228 mg/dL (70-99); Potassium 4.6 mmol/L (3.3-5.1); Sodium Level 147 mmol/L (133-145)
[2024-11-15 07:19] LABS: Differential Indicated SCAN CRITERIA MET
[2024-11-15 07:32] LABS: Vancomycin, Random Level 23.9 ug/mL (0.0-15.0)
--- NOTE | 2024-11-15 07:44 | PCM.RX.CS ---
Consult Antibiotic Management Pharmacy has been consulted to manage selected antibiotic: Vancomycin Type of Intervention Type of Consult: Follow-up Suspected Infection Suspected Infection: Sepsis Prior Doses of Antibiotics Prior Doses of Antibiotics Received/Current Regimen: 11/14/24 @ 0756 2000MG X1 Labs Labs: Sodium 147 mmol/L (133-145) H 11/15/24 06:13 Potassium 4.6 mmol/L (3.3-5.1) 11/15/24 06:13 Chloride 118 mmol/L (98-108) H 11/15/24 06:13 Carbon Dioxide 17.7 mmol/L (21.0-32.0) L 11/15/24 06:13 Anion Gap 12 (5-15) 11/15/24 06:13 BUN 64 mg/dL (4-19) H 11/15/24 06:13 Creatinine 3.06 mg/dL (0.70-1.20) H 11/15/24 06:13 Est GFR (MDRD) Non-Af 20 (>60) L 11/15/24 06:13 BUN/Creatinine Ratio 21.0 RATIO (10-20) H 11/15/24 06:13 Glucose 228 mg/dL (70-99) H 11/15/24 06:13 Random Vancomycin 23.9 ug/mL (0.0-15.0) H 11/15/24 06:13 Microbiology Microbiology: Microbiology 11/13/24 06:49 Urine, Catheterized Urine Culture - Preliminary Gram negative eric Yeast Like Organism 11/13/24 04:35 Blood Culture (Wb) - Cvp Cath Tip Blood Culture - Preliminary Dosing Weight Weight used for dosin kg Estimated Creatinine Clearance Estimated Creatinine Clearance: 27 Goal Trough Goal Trough: 15-20 mcg/mL Pharmacy Plan for Drug Dosing Pharmacy Plan for Drug Dosing: Hold Vancomycin and draw a random level 11/15/24 @ 1800 Pharmacy Service will continue to monitor and adjust dosing as required. Follow-Up Labs Follow-Up Labs: Trough: Other Date/Time Labs Ordered Labs to be done on [date and time ordered]: 11/15/24 @ 1800 random level
--- NOTE | 2024-11-15 08:30 | PN.CC_ITS ---
Assessment & Plan Assessment/Plan (1) UTI (urinary tract infection): (2) Septic shock: PLAN: Plan RECOMMENDATIONS: 1. Continue antimicrobial therapy as ordered. 2. Continue Levophed to maintain a mean arterial pressure at or above 65 mmHg. 3. Speech therapy evaluation today prior to advancement of diet. 4. If the patient passes his swallow evaluation, start scheduled midodrine. 5. Continue local wound care. 6. Recommend PAP therapy with naps and nightly. 7. PT/OT evaluations today. IMPRESSIONS: 1. Septic shock The patient presented to the hospital with sepsis due to suspected urinary tract source of infection with acute sepsis related organ dysfunction as evidenced by fluid refractory hypotension requiring vasopressor support, acute on chronic kidney disease, lactic acidemia and altered mental status. The patient did receive supplemental IV fluid hydration per sepsis protocol, but remained hypotensive. Accordingly, the patient has been maintained on Levophed, which will be continued to maintain a mean arterial pressure at or above 65 mmHg. In addition, broad-spectrum antimicrobials will be continued, pending culture workup. If the patient passes his swallow evaluation today, we will plan to start scheduled midodrine as well. 2. Toxic/metabolic encephalopathy Related to #1. Avoid sedating medications for now. ABG was largely unrevealing. CT head failed to demonstrate acute findings. Ammonia level was within normal limits. Plan to continue supportive care, as outlined above. 3. Acute on chronic kidney disease Most likely prerenal in etiology in the setting of #1. Continue supportive measures with supplemental IV fluids and vasopressor support to maintain hemodynamic stability. Continue to monitor urine output. No current indication for renal replacement therapy. 4. Recent necrotizing soft tissue infection of left thigh/obstructive sleep apnea/diabetes mellitus/coagulopathy/COPD Complicates care, management, recovery and prognosis. Continue local wound care. Recommend PAP therapy with naps and nightly. Agree with speech therapy evaluation prior to consideration for advancement of diet. TIME: 33 minutes of critical care time, independent of procedures, was spent addressing the patient's septic shock, metabolic encephalopathy, acute on chronic kidney disease, review of all data and collaboration with the care team. Subjective Subjective The patient was seen and examined at the bedside this morning. Events from the last 24 hours have been reviewed. The patient still has a low-grade fever and remains on Levophed at 5 mcg/min to maintain hemodynamic stability. No overnight issues were identified by the nursing staff. The patient is currently documented to be overall net positive a liter for the hospitalization. White blood cell count is normal this morning. Hemoglobin and platelet count are stable. INR was noted to be 2.3. Sodium has improved to 147 with a creatinine of 3.06. Objective Data Objective Data The patient's most recent lab work, culture data and imaging studies have all been personally reviewed. Surface echocardiogram from October 2024 demonstrated stage I diastolic dysfunction. Blood and urine cultures are pending. Vital Signs: Vital Signs Temp Pulse Resp BP Pulse Ox O2 Del Method O2 Flow Rate 100.9 F H 105 H 21 H 116/58 L 94 Nasal Cannula 1 11/14/24 22:00 11/15/24 08:00 11/15/24 07:00 11/15/24 07:00 11/15/24 07:00 11/15/24 07:58 11/15/24 07:58 Oxygen Flow Rate (L/min) 1 Oxygen Delivery Method Nasal Cannula Weight: 281 lb 12.012 oz Body Mass Index (BMI) 40.4 Intake & Output: Intake and Output for Last 24 Hours 11/13/24 11/14/24 11/15/24 23:59 23:59 23:59 Intake Total 5606.60 / 5616.00 3312.03 / 3325.13 1083.55 / 1083.55 Output Total 400 / 400 900 / 900 675 / 675 Balance 5206.60 / 5216.00 2412.03 / 2425.13 408.55 / 408.55 Lab / Micro Data Attestation: I reviewed the patient's lab results. 11/15/24 06:13 11/15/24 06:13 Labs: Laboratory Results - last 24 hr 11/14/24 11:18: POC Glucose 184 H 11/14/24 13:36: Urine Creatinine 135.00, Urine Urea Nitrogen 885 11/14/24 15:52: Ammonia 12.2 L 11/14/24 17:53: POC Glucose 184 H 11/15/24 06:08: POC Glucose 182 H 11/15/24 06:13: WBC 10.8, RBC 3.78 L, Hgb 11.2 L, Hct 36.3 L, MCV 96.0 H, MCH 29.6, MCHC 30.9 L, RDW Std Deviation 55.8 H, RDW Coeff of Jadon 15.6 H, Plt Count 229, MPV 9.4, Immature Gran % (Auto) 0.700, Neut % (Auto) 72.7 H, Lymph % (Auto) 19.3, [place] % (Auto) 5.3, Eos % (Auto) 1.2, Baso % (Auto) 0.8, Absolute Neuts (auto) 7.9 H, Absolute Lymphs (auto) 2.08, Nucleated RBC % 0.2, Differential Comment , PT 26.2 H, INR 2.3, Sodium 147 H, Potassium 4.6, Chloride 118 H, C arbon Dioxide 17.7 L, Anion Gap 12, BUN 64 H, Creatinine 3.06 H, Estim Creat Clear Calc 26.71 L, Est GFR (MDRD) Non-Af 20 L, BUN/Creatinine Ratio 21.0 H, G lucose 228 H, Calcium 7.3 L, Random Vancomycin 23.9 H Micro: Microbiology 11/13/24 04:35 Blood Culture (Wb) - Cvp Cath Tip Blood Culture - Preliminary Gram positive organism 11/13/24 06:49 Urine, Catheterized Urine Culture - Preliminary Gram negative eric Yeast Like Organism ABG Data ABG results: ABG 11/14/24 08:56 Specimen Type ART Sample Site L Radial pH 7.40 Bicarbonate Actual 18.8 L Total CO2 20 Base Excess -6 L O2 Saturation 96 O2 % 2.0 ABG pCO2 30.1 L ABG pO2 81 Blair Test Positive O2 Delivery Device Cannula Vent Mode Not entered Radiography Diagnostic Testing: Radiology Impression Renal Ultrasound 11/14/24 08:47 IMPRESSION: No acute findings in the retroperitoneum. Reading Location: [facility] Brain CT 11/14/24 13:55 IMPRESSION: 1. Generalized brain atrophy. 2. Small vessel ischemic/degenerative changes. 3. No acute intracranial hemorrhage, midline shift or mass effect. If symptoms persist, further evaluation with MRI is recommended. 4. No significant change from the prior exam. Reading Location: [facility] Rhythm Strip Rhythm Strip: A-fib Rate: 99 Ectopy: PVC(s) Physical Exam Const Constitutional Narrative: Morbidly obese. Resting comfortably in bed. Alert and oriented to person only. General Appearance: lethargic and ill appearing HEENT normocephalic and head/scalp atraumatic Teeth and Gingiva: poor dentition Eyes PERRL, EOMs intact bilaterally and conjunctivae normal Neck supple General: trachea midline Chest inspection of chest normal Resp normal respiratory effort Auscultation: Negative for rales, rhonchi or wheezes Cardio regular rate and regular rhythm GI normal to inspection, nondistended, normoactive bowel sounds Extremity no clubbing, cyanosis or edema Skin Skin Narrative: Groin wound present on admission, currently dressed Neuro CN's II-XII intact bilaterally and moves all extremities Psych Mood & Affect: flat affect Charges/Coding Procedures Hospitalists Procedures: 14056 Critical Care 1st Hr
[2024-11-15] MEDS: Pantoprazole Sodium 40 MG in 0.9% Normal Saline (100mL MB+) 100 ML 330 MG IV (09:16)
[2024-11-15] MEDS: Meropenem 1 GM in 0.9% Normal Saline (100mL MB+) 100 ML IV (10:24)
[2024-11-15] MEDS: 0.9% Normal Saline (100mL Bag) 100 ML 15 ML IV (10:26)
[2024-11-15 11:46] LABS: Bedside Glucose 175 mg/dL (74-106)
[2024-11-15] MEDS: Haloperidol Lactate 5 MG/ML Vial 2.5 MG IV (13:42)
[2024-11-15 14:15] LABS: Bedside Glucose 185 mg/dL (74-106)
--- NOTE | 2024-11-15 14:38 | CASEMGMT ---
Social Work- SW met with pt nephew, Alvin, who wanted to discuss pt status. SW updated on discharge planning and provided support as pt nephew discussed concerns and complexities with pt . HOLLI followed up with bedside nurse to provide medical updates for nephew. SW remains available to follow. Plan: SWCC; skilled level of care NOEL Ochoa
[2024-11-15] MEDS: Dext 5%-0.45% NS 1,000 ML 100 ML IV (15:13)
--- NOTE | 2024-11-15 15:51 | PN.RENAL_ITS ---
Subjective Subjective no new events Objective Data Objective Data Vital Signs: Vital Signs Temp Pulse Resp BP Pulse Ox O2 Del Method O2 Flow Rate 100.6 F H 101 H 20 H 95/53 L 94 Nasal Cannula 2 11/15/24 13:00 11/15/24 13:00 11/15/24 13:00 11/15/24 13:00 11/15/24 13:00 11/15/24 13:00 11/15/24 13:00 Oxygen Flow Rate (L/min) 2 Oxygen Delivery Method Nasal Cannula Weight: 127.8 kg Body Mass Index (BMI) 40.4 Intake & Output: Intake and Output for Last 24 Hours 11/13/24 11/14/24 11/15/24 23:59 23:59 23:59 Intake Total 5606.60 / 5616.00 3312.03 / 3325.13 1391.10 / 1391.10 Output Total 400 / 400 900 / 900 850 / 850 Balance 5206.60 / 5216.00 2412.03 / 2425.13 541.10 / 541.10 Lab / Micro Data 11/15/24 06:13 11/15/24 06:13 Labs: Laboratory Results - last 24 hr 11/14/24 15:52: Ammonia 12.2 L 11/14/24 17:53: POC Glucose 184 H 11/15/24 00:24: POC Glucose 185 H 11/15/24 06:08: POC Glucose 182 H 11/15/24 06:13: WBC 10.8, RBC 3.78 L, Hgb 11.2 L, Hct 36.3 L, MCV 96.0 H, MCH 29.6, MCHC 30.9 L, RDW Std Deviation 55.8 H, RDW Coeff of Jadon 15.6 H, Plt Count 229, MPV 9.4, Immature Gran % (Auto) 0.700, Neut % (Auto) 72.7 H, Lymph % (Auto) 19.3, [place] % (Auto) 5.3, Eos % (Auto) 1.2, Baso % (Auto) 0.8, Absolute Neuts (auto) 7.9 H, Absolute Lymphs (auto) 2.08, Nucleated RBC % 0.2, Differential Comment , PT 26.2 H, INR 2.3, Sodium 147 H, Potassium 4.6, Chloride 118 H, C arbon Dioxide 17.7 L, Anion Gap 12, BUN 64 H, Creatinine 3.06 H, Estim Creat Clear Calc 26.71 L, Est GFR (MDRD) Non-Af 20 L, BUN/Creatinine Ratio 21.0 H, G lucose 228 H, Calcium 7.3 L, Random Vancomycin 23.9 H 11/15/24 11:24: POC Glucose 175 H Micro: Microbiology 11/13/24 06:49 Urine, Catheterized Urine Culture - Preliminary Gram negative eric Presumptive C albicans 11/13/24 04:35 Blood Culture (Wb) - Cvp Cath Tip Blood Culture - Preliminary Gram positive organism Rhythm Strip Rhythm Strip: A-fib Rate: 99 Ectopy: PVC(s) Physical Exam Narrative Resting quietly, no apparent distress. Answers to name S1, S2, RRR Breath sounds clear anteriorly. No rales or rhonchi. On O2 nasal cannula Abdomen soft No edema Georges with clear yellow urine in bag Assessment & Plan Assessment/Plan (1) CHRISTOPHER (acute kidney injury): (2) Hyperkalemia: (3) Hypernatremia: (4) Sepsis: QUALIFIERS: Sepsis type: sepsis due to unspecified organism S epsis acute organ dysfunction status: with acute organ dysfunction Severe sepsis acute organ dysfunction type: encephalopathy Severe sepsis shock status: with septic shock Qualified Code(s): A41.9 - Sepsis, unspecified organism; R65.21 - Severe sepsis with septic shock; G93.41 - Metabolic encephalopathy PLAN: Plan This is a 79-year-old male with past medical history significant for hypertension, hyperlipidemia, diabetes mellitus type 2, SILVER on CPAP, history of A-fib on Coumadin, history of chronic diastolic heart failure (echo from October 2024: EF 65%, stage I diastolic dysfunction, mild left ventricular hypertrophy, moderate biatrial dilatation), ulcerative colitis, COPD who was brought to the emergency room from intermediate for altered mental status changes. Patient was recently admitted to the hospital early October for acute decompensated heart failure but also found to have left groin/thigh wound with abscess that progressed to necrotizing deep soft tissue infection and underwent I&D with wound VAC placement. Nephrology consulted for elevated creatinine - CHRISTOPHER superimposed on possible CKD stage IIIa; during last hospitalization from October 09 to October 27 serum creatinine ranged 1 at best peaking up to 1.8 but had leveled off around 1.3 to 1.4. For this admission, creatinine 2.3 on admission, creatinine peaked at 3.82 on 11/13, today creatinine is 3.68 mg/dL. Patient is nonoliguric, he has Georges. Blood pressures low and patient is on Levophed. Potassium was high on admission 5.9 improved today to 5.2. Bicarb 17. Urine output so far today 600 mL. CHRISTOPHER possibly from sepsis, hypotension with poor renal perfusion. There is no acute indication for renal placement therapy. Baseline creatinine is around 1 to 1.4 mg/dL as of recent. Renal ultrasound ordered for today. Noncontrast CT of abdomen and pelvis kidneys normal in size and configuration, mild to moderate perinephric stranding around right kidney and proximal right ureter. Patient is currently n.p.o., sodium levels have been ranging around 150-156 since admission, today sodium 150 and he is on D5W. Patient is NPO. Further orders forthcoming as hospitalization evolves, thank you for allowing us to participate in the care of Mr. Oshea. Assessment and plan reviewed with Dr. Laureano. 11/15/24. remains on low dose levophed. failed swallow so far. urine output is ok. cr better. saturating ok on nasal cannula. will start back fluids. dw ICU attending today.
[2024-11-15] MEDS: Insulin Glargine-YFGN 100 UNIT/ML Pen 8 UNIT SC (18:10)
[2024-11-15 18:35] LABS: Bedside Glucose 192 mg/dL (74-106)
[2024-11-15 18:56] LABS: Vancomycin, Random Level 19.6 ug/mL (0.0-15.0)
--- NOTE | 2024-11-15 19:59 | PCM.RX.CS ---
Consult Antibiotic Management Pharmacy has been consulted to manage selected antibiotic: Vancomycin Type of Intervention Type of Consult: Follow-up Suspected Infection Suspected Infection: Sepsis Labs Labs: Sodium 147 mmol/L (133-145) H 11/15/24 06:13 Potassium 4.6 mmol/L (3.3-5.1) 11/15/24 06:13 Chloride 118 mmol/L (98-108) H 11/15/24 06:13 Carbon Dioxide 17.7 mmol/L (21.0-32.0) L 11/15/24 06:13 Anion Gap 12 (5-15) 11/15/24 06:13 BUN 64 mg/dL (4-19) H 11/15/24 06:13 Creatinine 3.06 mg/dL (0.70-1.20) H 11/15/24 06:13 Est GFR (MDRD) Non-Af 20 (>60) L 11/15/24 06:13 BUN/Creatinine Ratio 21.0 RATIO (10-20) H 11/15/24 06:13 Glucose 228 mg/dL (70-99) H 11/15/24 06:13 Random Vancomycin 19.6 ug/mL (0.0-15.0) H 11/15/24 18:05 Microbiology Microbiology: Microbiology 11/13/24 06:49 Urine, Catheterized Urine Culture - Preliminary Gram negative eric Presumptive C albicans 11/13/24 04:35 Blood Culture (Wb) - Cvp Cath Tip Blood Culture - Preliminary Gram positive organism Dosing Weight Weight used for dosin kg Goal Trough Goal Trough: 15-20 mcg/mL Pharmacy Plan for Drug Dosing Pharmacy Plan for Drug Dosing: VANCOMYCIN LEVEL RECEIVED Current Vancomycin Dose: TO BE DETERMINED Number of Doses Received:2000 MG ONCE @0756 CHRIS 11/14 Vancomycin Level: 19.6 Hours Since Last Dose: 34 H Renal Function: CrCl 26.71 SCr 3.06 mg/dL Renal Function Trend: Stable Lab/Micro: Vancomycin Plan/Comments: Random level is high but within therapeutic levels. Will Start on 1250 mg q24 according to policy.Pharmacy Service will continue to monitor and adjust dosing as required. Pending Level: 11/17/2024 @1930 Follow-Up Labs Follow-Up Labs: Trough: Vancomycin Date/Time Labs Ordered Labs to be done on [date and time ordered]: 11/17/2024 @1930
[2024-11-15] MEDS: Vancomycin HCl 1,250 MG in 0.9% Normal Saline (250mL Bag) 250 ML 167 MG IV (20:11)
[2024-11-15] MEDS: Meropenem 2 GM in 0.9% Normal Saline (100mL Bag) 100 ML IV (21:34)
[2024-11-16] VITALS (46 sets, daily range): BP systolic 58–201; BP diastolic 33–170; PULSE 92–106; RESP 18–33; TEMP 36.6–38.3; O2SAT 28–99; BMI 40.6
[2024-11-16] MEDS: Insulin Lispro 100 UNIT/ML INSULN.PEN SC ×3 (00:56→17:46)
[2024-11-16 01:11] LABS: Bedside Glucose 166 mg/dL (74-106)
[2024-11-16] MEDS: Morphine 2 MG/ML Syringe 1 MG IV (01:13)
[2024-11-16] MEDS: 0.9% Saline Lock 10 ML Syringe IV (01:14)
[2024-11-16] MEDS: Acetaminophen 650 MG Suppository RC (02:17)
[2024-11-16] MEDS: 0.9% Normal Saline (100mL Bag) 100 ML 10 ML IV (02:19)
[2024-11-16] MEDS: Dext 5%-0.45% NS 1,000 ML 100 ML IV ×2 (02:28→13:02)
[2024-11-16 02:54] LABS: Absolute Lymphocyte Count 2.48 X10^3/uL (0.83-4.51); Absolute Neutrophil Count 6.8 X10^3/uL (2.0-7.7); Basophil# 0.01 X10^3/uL; Basophil% 0.1 % (0-1); Eosinophil# 0.11 X10^3/uL; Eosinophils% 1.1 % (0-5); Hemoglobin 10.8 g/dL (13.0-16.5); Lymphocyte # 2.48 X10^3/ul (0.83-4.51); Lymphocyte % 25.1 % (19-41); Mean Corp Hgb Conc 30.9 g/dL (32-36); Mean Corpuscular Hgb 29.8 pg (27.0-32.0); Mean Corpuscular Volume 96.7 fL (80-94); Monocyte# 0.45 X10^3/uL; Monocyte% 4.5 % (0-10); NRBC Flagged by Analyzer 0 % (0-5); Neutrophil # 6.75 X10^3/uL (2.7-7.7); Neutrophil % 68.2 % (47-70); POSITIVE MORPHOLOGY YES; Platelet Count 200 K/mm3 (150-450); RBC Distribution Width CV 15.7 % (11.6-14.6); RBC Distribution Width SD 55.7 fl (35.1-43.9); Red Blood Count 3.62 M/mm3 (4.6-6.2); White Blood Count 9.9 K/mm3 (4.4-11.0)
[2024-11-16 03:03] LABS: International Normalized Ratio 2.6; Prothrombin Time (Protime)PT. 28.5 SECONDS (11.7-14.9)
[2024-11-16 03:17] LABS: Anion Gap 10 (5-15); BUN 71 mg/dL (4-19); BUN/Creat Ratio 22.8 RATIO (10-20); Calcium,Total 7.3 mg/dL (7.6-11.0); Carbon Dioxide 18.6 mmol/L (21.0-32.0); Chloride 122 mmol/L (98-108); EST Glomerular Filtration Rate 20 (>60); Estimated Creatinine Clearance 26.37 ml/min (50-250); Glucose 172 mg/dL (70-99); Potassium 4.7 mmol/L (3.3-5.1); Sodium Level 150 mmol/L (133-145)
[2024-11-16 03:29] LABS: Differential Indicated SCAN CRITERIA MET
[2024-11-16 03:47] LABS: Differential Comment SCANNED
[2024-11-16 06:34] LABS: Bedside Glucose 170 mg/dL (74-106)
--- NOTE | 2024-11-16 07:29 | PN.HOSP_ITS ---
Reason for Visit Reason for Visit: Diagnoses Sepsis, unspecified organism (11/13/24) Elevated white blood cell count, unspecified (11/13/24) Obesity, unspecified (11/13/24) Hyperosmolality and hypernatremia (11/13/24) Acidosis, unspecified (11/13/24) Hyperkalemia (11/13/24) Obstructive sleep apnea (adult) (pediatric) (11/13/24) Encephalopathy, unspecified (11/13/24) Metabolic encephalopathy (11/13/24) Umbilical hernia with obstruction, without gangrene (11/13/24) Acute kidney failure, unspecified (11/13/24) Urinary tract infection, site not specified (11/13/24) Severe sepsis with septic shock (11/13/24) Abnormal coagulation profile (11/13/24) Unspecified open wound, left lower leg, initial encounter (11/13/24) Poisoning by 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s, accidental (unintentional), initial encounter (11/13/24) Subjective Subjective More alert, but agitated at times. Objective Data Objective Data Vital Signs: Vital Signs Temp Pulse Resp BP Pulse Ox O2 Del Method O2 Flow Rate 37.6 C H 101 H 26 H 108/55 L 91 Room Air 2 11/16/24 07:00 11/16/24 07:00 11/16/24 07:00 11/16/24 07:00 11/16/24 03:30 11/16/24 03:54 11/15/24 23:00 Oxygen Flow Rate (L/min) 2 Oxygen Delivery Method Room Air Weight: 128.6 kg Body Mass Index (BMI) 40.6 Intake & Output: Intake and Output for Last 24 Hours 11/14/24 11/15/24 11/16/24 23:59 23:59 23:59 Intake Total 3312.03 / 3325.13 1820.24 / 1820.24 1030.60 / 1030.60 Output Total 900 / 900 1070 / 1070 150 / 150 Balance 2412.03 / 2425.13 750.24 / 750.24 880.60 / 880.60 Lab / Micro Data 11/16/24 02:25 11/16/24 02:25 Labs: Laboratory Results - last 24 hr 11/15/24 00:24: POC Glucose 185 H 11/15/24 06:13: Random Vancomycin 23.9 H 11/15/24 11:24: POC Glucose 175 H 11/15/24 18:05: Random Vancomycin 19.6 H 11/15/24 18:06: POC Glucose 192 H 11/16/24 00:52: POC Glucose 166 H 11/16/24 02:25: WBC 9.9, RBC 3.62 L, Hgb 10.8 L, Hct 35.0 L, MCV 96.7 H, MCH 29.8, MCHC 30.9 L, RDW Std Deviation 55.7 H, RDW Coeff of Jadon 15.7 H, Plt Count 200, MPV 10.0, Immature Gran % (Auto) 1.000 H, Neut % (Auto) 68.2, Lymph % (Auto) 25.1, [place] % (Auto) 4.5, Eos % (Auto) 1.1, Baso % (Auto) 0.1, Absolute Neuts (auto) 6.8, Absolute Lymphs (auto) 2.48, Nucleated RBC % 0, Differential Comment SCANNED, PT 28.5 H, INR 2.6, Sodium 150 H, Potassium 4.7, Chloride 122 H , Carbon Dioxide 18.6 L, Anion Gap 10, BUN 71 H, Creatinine 3.10 H, Estim Creat Clear Calc 26.37 L, Est GFR (MDRD) Non-Af 20 L, BUN/Creatinine Ratio 22.8 H, G lucose 172 H, Calcium 7.3 L 11/16/24 06:16: POC Glucose 170 H Micro: Microbiology 11/13/24 06:49 Urine, Catheterized Urine Culture - Preliminary Gram negative eric Presumptive C albicans 11/13/24 04:35 Blood Culture (Wb) - Cvp Cath Tip Blood Culture - Preliminary Gram positive organism Rhythm Strip Rhythm Strip: A-fib Rate: 99 Ectopy: PVC(s) Physical Exam Const alert and no apparent distress HEENT head/scalp atraumatic and moist oral mucous membranes Resp normal respiratory effort, no retractions, no use of accessory muscles and clear to auscultation bilaterally Cardio regular rate, regular rhythm, S1 normal heart sound and S2 normal heart sound GI normal to inspection, nondistended, normoactive bowel sounds, soft to palpation, non-tender and non-distended Extremity normal to inspection and full ROM Neuro Sensorium / Orientation: awake and alert Assessment & Plan Assessment/Plan (1) Septic shock: PLAN: 2/2 UTI. follow up cultures, thus far showing GNR. BCx showing GPO 1 of 2 (may be contaminant) has been on norepinephrine gtt since the . on meropenem check ACTH stim test. (2) UTI (urinary tract infection): PLAN: abx as above follow up cultures. (3) CHRISTOPHER (acute kidney injury): PLAN: Renal US negative. Improved with IVF. (4) Metabolic encephalopathy: PLAN: 2/2 septic shock, CHRISTOPHER avoid potentiating medications. head CT negative. Ammonia low, so no hepatic encephalopathy (5) Incarcerated umbilical hernia: PLAN: surgery consulted. Not felt to be acute per general surgery. (6) Leg wound, left: PLAN: subsequent visit had wound vac last admission and diverting monsalve given incontinence. wound care consult (7) Supratherapeutic INR: PLAN: INR up to 11.9 at one point. Now down to 1.9. received Vitamin K monitor (8) Hypernatremia: PLAN: Did receive D5W. Improved from 156 to 154. Recheck today. (9) Hyperkalemia: PLAN: Resolved with treatment. Received D10 and insulin, Monitor PLAN: Plan VTE prophylaxis: not indicated as with supratherapeutic INR. Charges/Coding Visit Charges Inpatient E&M: 50287 Subs Hosp L2
[2024-11-16] MEDS: Pantoprazole Sodium 40 MG in 0.9% Normal Saline (100mL MB+) 100 ML 330 MG IV (09:17)
[2024-11-16] MEDS: Meropenem 2 GM in 0.9% Normal Saline (100mL Bag) 100 ML IV ×2 (10:53→22:24)
[2024-11-16 12:07] LABS: Bedside Glucose 163 mg/dL (74-106)
--- NOTE | 2024-11-16 13:19 | PN.CC_ITS ---
Objective Data Objective Data Vital Signs: Vital Signs Last response 3 Temperature 37.7 C H 11/16/24 11:00 Temperature Source Core 11/16/24 11:00 Pulse Rate 98 11/16/24 11:00 Respiratory Rate 30 H 11/16/24 11:00 Respiratory Effort Normal, Non-Labored 11/16/24 12:00 Respiratory Depth Normal 11/16/24 12:00 Respiratory Pattern Tachypnea 11/16/24 12:00 Blood Pressure 120/52 L 11/16/24 11:00 Blood Pressure Mean 74 11/16/24 11:00 Blood Pressure Source Monitor 11/16/24 11:00 Blood Pressure Position Semi-Fowlers 11/16/24 11:00 Blood Pressure Location Right Forearm 11/16/24 11:00 Pulse Ox 93 11/16/24 11:00 Oxygen Delivery Method Room Air 11/16/24 12:00 Oxygen Flow Rate (L/min) 2 11/15/24 23:00 I&O: I&O Last 24 Hours 3 11/15/24 11/16/24 11/16/24 23:59 11:59 23:59 Intake Total 582.84 / 1820.24 1163.00 / 2403.00 1240 / 2403.00 Output Total 220 / 1070 150 / 300 150 / 300 Balance 362.84 / 750.24 1013.00 / 2103.00 1090 / 2103.00 I&O: Total Stay 3 11/13/24 04:06 thru 11/16/24 13:02 Intake Total 15417.87 Output Total 2670 Balance 82105.87 Current Meds Ordered / Administered: Current meds ordered / Administered 3 Generic Name Dose Route Start Last Admin Trade Name Freq PRN Reason Stop Dose Admin Acetaminophen 650 mg 11/13/24 08:31 11/16/24 02:17 Acetaminophen 650 Mg Suppository RC 650 mg Q6H PRN PRN Administration Pain 1-10 or Fever Calamine/Phenol 1 applic 11/14/24 22:00 11/16/24 09:18 Menthol/Lanolin/Calamine/Znox 113 Gm Tube TOPICAL Not Given TID SASHA Protocol Haloperidol Lactate 0.5 mg 11/16/24 13:08 Haloperidol Lactate 5 Mg/Ml Vial IV Q4H PRN PRN Agitation Protocol Norepinephrine Bitartrate 8 mg 250 mls @ 9.375 mls/hr 11/13/24 07:45 11/16/24 11:00 / Sodium Chloride CONT INF 2 mcg/min .[id number] SASHA 3.8 mls/hr Titration Protocol 5 MCG/MIN Pantoprazole Sodium 40 mg/ 110 mls @ 330 mls/hr 11/13/24 10:00 11/16/24 09:37 Sodium Chloride IV Infused Q24 SASHA Infusion Sodium Chloride 100 mls @ 15 mls/hr 11/13/24 09:26 11/16/24 12:19 IV Infused .Q6H40M PRN Infusion Saline Flush Sodium Chloride 100 mls @ 15 mls/hr 11/13/24 09:26 IV .Q6H40M PRN Additional IVPB Infusion Vancomycin IV-PHARMACY TO DOSE 500 mls @ 250 mls/hr 11/13/24 10:36 1 each/ Sodium Chloride IV X1 PRN Rx to Dose Protocol Dextrose/Sodium Chloride 1,000 mls @ 100 mls/hr 11/15/24 14:00 11/16/24 13:02 IV 100 mls/hr .Q10H SASHA Administration Meropenem 2 gm/ Sodium 140 mls @ 97 mls/hr 11/15/24 22:00 11/16/24 12:20 Chloride IV Infused Q12 SASHA Infusion Vancomycin HCl 1,250 mg/ 275 mls @ 167 mls/hr 11/15/24 20:00 11/15/24 23:56 Sodium Chloride IV Infused Q24H SASHA Infusion Cosyntropin 0.25 mg/ Sodium 5 mls @ 150 mls/hr 11/17/24 06:00 Chloride IV 11/17/24 06:01 X1 ONE Insulin Glargine 8 unit 11/13/24 17:00 11/15/24 18:10 Insulin Glargine-Yfgn 100 Unit/Ml Pen SC 8 unit DINNER SASHA Administration Insulin Human Lispro 0 unit 11/14/24 12:00 11/16/24 11:37 Insulin Lispro 100 Unit/Ml Insuln.Pen SC 1 u Q6 SASHA Administration Protocol Quetiapine Fumarate 25 mg 11/16/24 22:00 Quetiapine 25 Mg Tablet PO QHS SASHA Protocol Sodium Chloride 10 - 40 ml 11/13/24 09:26 11/16/24 01:14 0.9% Saline Lock 10 Ml Syringe IV 20 ml UD PRN Administration SALINE FLUSH Vancomycin Protocol 1 lab 11/17/24 18:30 Vancomycin Trough/Random Due 11/17/24 20:30 DAILY [facility] Lab / Micro Data Attestation: I reviewed the patient's lab results. 11/16/24 02:25 11/16/24 02:25 Labs: Laboratory Results - last 24 hr 11/15/24 00:24: POC Glucose 185 H 11/15/24 18:05: Random Vancomycin 19.6 H 11/15/24 18:06: POC Glucose 192 H 11/16/24 00:52: POC Glucose 166 H 11/16/24 02:25: WBC 9.9, RBC 3.62 L, Hgb 10.8 L, Hct 35.0 L, MCV 96.7 H, MCH 29.8, MCHC 30.9 L, RDW Std Deviation 55.7 H, RDW Coeff of Jadon 15.7 H, Plt Count 200, MPV 10.0, Immature Gran % (Auto) 1.000 H, Neut % (Auto) 68.2, Lymph % (Auto) 25.1, [place] % (Auto) 4.5, Eos % (Auto) 1.1, Baso % (Auto) 0.1, Absolute Neuts (auto) 6.8, Absolute Lymphs (auto) 2.48, Nucleated RBC % 0, Differential Comment SCANNED, PT 28.5 H, INR 2.6, Sodium 150 H, Potassium 4.7, Chloride 122 H , Carbon Dioxide 18.6 L, Anion Gap 10, BUN 71 H, Creatinine 3.10 H, Estim Creat Clear Calc 26.37 L, Est GFR (MDRD) Non-Af 20 L, BUN/Creatinine Ratio 22.8 H, G lucose 172 H, Calcium 7.3 L 11/16/24 06:16: POC Glucose 170 H 11/16/24 11:36: POC Glucose 163 H Micro: Microbiology 11/13/24 06:49 Urine, Catheterized Urine Culture - Final Hafnia alvei Presumptive C albicans 11/13/24 04:35 Blood Culture (Wb) - Cvp Cath Tip Blood Culture - Final Staphylococcus epidermidis Rhythm Strip Rhythm Strip: A-fib Rate: 99 Ectopy: PVC(s) Assessment and Plan . Assessment and plan: IMPRESSIONS: 1. Septic shock, presumed urinary source, s/p sepsis bundle and pressors 2. Toxic/metabolic encephalopathy - baseline functional status as a NHR is somewhat unclear but staff reports he currently is off his previous known baseline 3. Acute on chronic kidney disease - suspect prerenal related to sepsis pathology 4. Recent necrotizing soft tissue infection of left thigh- almost sounds like a Nereida's type lesion 5. Medical history to include obstructive sleep apnea/diabetes mellitus/coagulopathy/COPD Complicates care, management, recovery and prognosis. Continue local wound care. Recommend PAP therapy with naps and nightly. Agree with speech therapy evaluation prior to consideration for advancement of diet. RECOMMENDATIONS: 1. Continue antimicrobial therapy as ordered. 2. wean Levophed to maintain a mean arterial pressure at or above 65 mmHg. 3. Speech therapy evaluation 4. If the patient passes his swallow evaluation, start scheduled midodrine. 5. Continue local wound care- surgical assistance appreciated. Critical Care Time:50 minutes The entirety of this encounter was done via Telemedicine Physical Exam HEENT normocephalic, head/scalp atraumatic, hearing grossly normal bilaterally, external ears normal, external nose normal and moist oral mucous membranes Head and Scalp: normal to inspection Eyes PERRL Neck full ROM Resp normal respiratory effort Cardio regular rate Subjective Subjective Remains oriented only to self, pulling at things, restless. Vasopressors are weaning.
[2024-11-16] MEDS: Haloperidol Lactate 5 MG/ML Vial IV ×2 (13:50→19:25)
[2024-11-16] MEDS: Menthol/Lanolin/Calamine/Znox 113 GM Tube 1 APPLIC TOPICAL ×2 (14:00→22:00)
[2024-11-16] MEDS: Insulin Glargine-YFGN 100 UNIT/ML Pen 8 UNIT SC (17:46)
[2024-11-16 18:34] LABS: Bedside Glucose 164 mg/dL (74-106)
[2024-11-16] MEDS: dexMEDEtomidine 400 MCG in 0.9% Normal Saline (100mL Bag) 96 ML 16.1 MCG CONT INF (22:11)
[2024-11-16] MEDS: Norepinephrine 8 MG in 0.9% Normal Saline (250mL Bag) 242 ML 3.8 MG CONT INF (22:12)
[2024-11-16 23:55] LABS: Bedside Glucose 141 mg/dL (74-106)
[2024-11-17] VITALS (64 sets, daily range): BP systolic 60–172; BP diastolic 28–158; PULSE 51–98; RESP 20–92; TEMP 37.6–38.2; O2SAT 23–98; BMI 40.7
[2024-11-17 00:03] LABS: Allen Test Positive; Base Excess -6 mmol/L (-2 to +2); Bicarbonate 18.8 mmol/L (22-26); Blood Gas Specimen Type ART; Mode Not entered; O2 Delivery Device Cannula; PO2 93 mmHG (75-100); SITE R Radial; SO2 97 % (95-99); Total Carbon Dioxide 20 mmol/L; pH 7.39 (7.35-7.45)
[2024-11-17] MEDS: Dext 5%-0.45% NS 1,000 ML 100 ML IV ×3 (00:15→22:16)
[2024-11-17] MEDS: Acetaminophen 650 MG Suppository RC ×2 (01:13→20:43)
--- NOTE | 2024-11-17 03:20 | NURSING ---
1925: 1 dose of PRN Haldol was administered. 2100: This RN called the tele-ICU provider to request another medication d/t minimal effects from the PRN Haldol. Also d/t the difficulty of obtaining accurate vitals while the pt is on Levo. The tele-ICU provider (Henri Mora) verbally ordered end-tidal CO2 to be placed on the pt and to start Precedex. Precedex was started at 2145. 0000: Shortly before midnight this RN called Dr. Mora d/t the end-tidal CO2 readings being inconsistent. An ABG was ordered and drawn by RT. This RN called the provider with the results and asked if he still wanted the end-tidal CO2 on, the pt had a good pleth on his SpO2 and was at 100%. Dr. Aleman stated he wanted it to remain on. 0030 the pt BP started to decrease, medications were titrated accordingly (see MAR for doses and titration times). AT 0050 Precedex was turned off. Shortly after the BP started to stabilize. 0100: The pt spiked a fever (100.8) and a PRN Tylenol suppository was administered (see MAR for time). BP started to decrease again. Levo was titrated accordingly (see MAR) and the pt was placed in Reverse Trendelenburg. BP showed improvement. While in this position the pt had an 8 run of V-Tach shown on the monitor. 0355: Dr. Mora was called and this RN asked for repeat blood cultures d/t the fever (100.1 after tylenol, see above). RN was verbally given orders for vasopressin, and to add Mg and phos to the labs this morning s/t the run of V-Tach
[2024-11-17] MEDS: Vasopressin 20 UNITS in 0.9% Normal Saline (50mL Bag) 24 ML 3 UNITS CONT INF (04:45)
[2024-11-17 05:14] LABS: Absolute Lymphocyte Count 2.57 X10^3/uL (0.83-4.51); Absolute Neutrophil Count 7.7 X10^3/uL (2.0-7.7); Basophil% 0.9 % (0-1); Eosinophil# 0.16 X10^3/uL; Eosinophils% 1.4 % (0-5); Hematocrit 38.4 % (40-54); Hemoglobin 11.7 g/dL (13.0-16.5); Lymphocyte # 2.57 X10^3/ul (0.83-4.51); Lymphocyte % 22.6 % (19-41); Mean Corp Hgb Conc 30.5 g/dL (32-36); Mean Corpuscular Hgb 29.4 pg (27.0-32.0); Mean Corpuscular Volume 96.5 fL (80-94); Mean Platelet Vol. 10.4 fl (6.2-12.0); Monocyte# 0.77 X10^3/uL; Monocyte% 6.8 % (0-10); NRBC Flagged by Analyzer 0.2 % (0-5); Neutrophil # 7.69 X10^3/uL (2.7-7.7); Neutrophil % 67.5 % (47-70); POSITIVE MORPHOLOGY YES; Platelet Count 217 K/mm3 (150-450); RBC Distribution Width CV 15.8 % (11.6-14.6); RBC Distribution Width SD 56.3 fl (35.1-43.9); Red Blood Count 3.98 M/mm3 (4.6-6.2); White Blood Count 11.4 K/mm3 (4.4-11.0)
[2024-11-17 05:27] LABS: Differential Indicated SCAN CRITERIA MET
[2024-11-17 05:30] LABS: Anion Gap 10 (5-15); BUN 64 mg/dL (4-19); BUN/Creat Ratio 27.1 RATIO (10-20); Calcium,Total 7.5 mg/dL (7.6-11.0); Carbon Dioxide 18.8 mmol/L (21.0-32.0); Chloride 122 mmol/L (98-108); Creatinine, Serum 2.36 mg/dL (0.70-1.20); EST Glomerular Filtration Rate 27 (>60); Estimated Creatinine Clearance 34.75 ml/min (50-250); Glucose 190 mg/dL (70-99); Magnesium 2.8 mg/dL (1.5-2.2); Phosphorus 4.4 mg/dL (2.7-4.5); Potassium 4.7 mmol/L (3.3-5.1); Sodium Level 151 mmol/L (133-145)
[2024-11-17] MEDS: Insulin Lispro 100 UNIT/ML INSULN.PEN SC ×3 (05:50→18:10)
[2024-11-17] MEDS: Cosyntropin 0.25 MG in 0.9% Normal Saline (Pres. free 4 ML 150 MG IV (05:51)
[2024-11-17] MEDS: 0.9% Saline Lock 10 ML Syringe IV ×2 (05:57→13:11)
[2024-11-17] MEDS: Menthol/Lanolin/Calamine/Znox 113 GM Tube 1 APPLIC TOPICAL ×3 (05:57→20:47)
[2024-11-17 06:43] LABS: Differential Comment SCANNED; Reactive Lymphocyte 2+
--- NOTE | 2024-11-17 07:04 | PCM.PN.HOSP ---
Reason for Visit Reason for Visit: Diagnoses Sepsis, unspecified organism (11/13/24) Elevated white blood cell count, unspecified (11/13/24) Obesity, unspecified (11/13/24) Hyperosmolality and hypernatremia (11/13/24) Acidosis, unspecified (11/13/24) Hyperkalemia (11/13/24) Obstructive sleep apnea (adult) (pediatric) (11/13/24) Encephalopathy, unspecified (11/13/24) Metabolic encephalopathy (11/13/24) Umbilical hernia with obstruction, without gangrene (11/13/24) Acute kidney failure, unspecified (11/13/24) Urinary tract infection, site not specified (11/13/24) Severe sepsis with septic shock (11/13/24) Abnormal coagulation profile (11/13/24) Unspecified open wound, left lower leg, initial encounter (11/13/24) Poisoning by 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s, accidental (unintentional), initial encounter (11/13/24) Subjective Subjective Oral lesions noted yesterday that involved buccal mucosa and tongue. Able to be scraped off. Has been very agitated. Was on dexmedetomidine gtt, then was hypotensive. Since turned off. Was maxed on norepi along with that hypotension for dexmedetomidine then vasopressin was added briefly. Now off both pressors. Pt more alert, but still confused. Complaining of abdominal pain. Objective Data Objective Data Vital Signs: Vital Signs Temp Pulse Resp BP Pulse Ox O2 Del Method O2 Flow Rate 37.8 C H 87 20 H 147/110 H 94 Nasal Cannula 3 11/17/24 06:00 11/17/24 06:00 11/17/24 06:00 11/17/24 06:45 11/17/24 06:00 11/17/24 06:00 11/17/24 06:00 Oxygen Flow Rate (L/min) 3 Oxygen Delivery Method Nasal Cannula Weight: 128.9 kg Body Mass Index (BMI) 40.7 Intake & Output: Intake and Output for Last 24 Hours 11/15/24 11/16/24 11/17/24 23:59 23:59 23:59 Intake Total 1820.24 / 1820.24 2610.74 / 2613.87 1254.45 / 1254.45 Output Total 1070 / 1070 695 / 745 415 / 415 Balance 750.24 / 750.24 1915.74 / 1868.87 839.45 / 839.45 Lab / Micro Data 11/17/24 04:45 11/17/24 04:45 Labs: Laboratory Results - last 24 hr 11/16/24 11:36: POC Glucose 163 H 11/16/24 17:44: POC Glucose 164 H 11/16/24 23:27: POC Glucose 141 H 11/17/24 04:45: WBC 11.4 H, RBC 3.98 L, Hgb 11.7 L, Hct 38.4 L, MCV 96.5 H, MCH 29.4, MCHC 30.5 L, RDW Std Deviation 56.3 H, RDW Coeff of Jadon 15.8 H, Plt Count 217, MPV 10.4, Immature Gran % (Auto) 0.800, Neut % (Auto) 67.5, Lymph % (Auto) 22.6, [place] % (Auto) 6.8, Eos % (Auto) 1.4, Baso % (Auto) 0.9, Absolute Neuts (auto) 7.7, Absolute Lymphs (auto) 2.57, Nucleated RBC % 0.2, Differential Comment SCANNED, Reactive Lymphocytes 2+, Sodium 151 H, Potassium 4.7, Chloride 122 H, Carbon Dioxide 18.8 L, Anion Gap 10, BUN 64 H, Creatinine 2.36 H, Estim Creat Clear Calc 34.75 L, Est GFR (MDRD) Non-Af 27 L, BUN/Creatinine Ratio 27.1 H, Glucose 190 H, Calcium 7.5 L, Phosphorus 4.4, Magnesium 2.8 H, Cortisol AM Sample 15.30 Micro: Microbiology 11/13/24 06:49 Urine, Catheterized Urine Culture - Final Hafnia alvei Presumptive C albicans 11/13/24 04:35 Blood Culture (Wb) - Cvp Cath Tip Blood Culture - Final Staphylococcus epidermidis ABG Data ABG results: ABG 11/17/24 00:00 Specimen Type ART Sample Site R Radial pH 7.39 Bicarbonate Actual 18.8 L Total CO2 20 Base Excess -6 L O2 Saturation 97 O2 % 3.0 ABG pCO2 31.0 L ABG pO2 93 [place] Test Positive O2 Delivery Device Cannula Vent Mode Not entered Rhythm Strip Rhythm Strip: A-fib Rate: 99 Ectopy: PVC(s) Physical Exam Const alert and no apparent distress HEENT head/scalp atraumatic and moist oral mucous membranes Resp normal respiratory effort, no retractions, no use of accessory muscles and clear to auscultation bilaterally Cardio regular rate, regular rhythm, S1 normal heart sound and S2 normal heart sound GI non-distended GI Narrative: distended. TTP Auscultation: hypoactive bowel sounds Extremity normal to inspection Psych Mood & Affect: anxious Assessment & Plan Assessment/Plan (1) Septic shock: PLAN: 2/2 UTI. follow up cultures, thus far showing GNR. BCx showing GPO 1 of 2 (may be contaminant) has been on norepinephrine gtt since the . vasopressin added 11/17 on meropenem ACTH stim test showed an appropriate response. (2) UTI (urinary tract infection): PLAN: abx as above Cultures growing out Hafnia alvei (3) CHRISTOPHER (acute kidney injury): PLAN: Renal US negative. Improved with IVF. (4) Metabolic encephalopathy: PLAN: Improved, but still confused 2/2 septic shock, CHRISTOPHER avoid potentiating medications. head CT negative. Ammonia low, so no hepatic encephalopathy Quetiapine added to help with agitation (but not given due mental status). Dexmedetomidine gtt added on 11/16, but discontinued due to hypotension ST following to determine when he could start taking PO. (5) Incarcerated umbilical hernia: PLAN: surgery consulted. Not strangulated and no acute surgical needs at this time. (6) Leg wound, left: PLAN: subsequent visit had wound vac last admission and diverting monsalve given incontinence. wound care consult (7) Supratherapeutic INR: PLAN: INR up to 11.9 at one point. Now down to 2.6 received Vitamin K monitor (8) Hypernatremia: PLAN: Overall improving Continue D5. (9) Hyperkalemia: PLAN: Resolved with treatment. Received D10 and insulin, Monitor (10) Oral lesion: PLAN: Noted by nursing on 11/16 that there was sloughing of the tongue. Unclear etiology/significance at this time. Vancomycin was discontinued. No peripheral eosinophilia noted at this time. (11) Abdominal pain: PLAN: Abd CT showing SBO v ileus. Will his confusion, would avoid NGT (unless worsens) Check SBFT when able to take oral. Currently NPO PLAN: Plan VTE prophylaxis: not indicated as with supratherapeutic INR. Charges/Coding Visit Charges Inpatient E&M: 97805 Subs Hosp L2
--- NOTE | 2024-11-17 08:56 | PN.CC_ITS ---
Objective Data Objective Data Vital Signs: Vital Signs Last response 3 Temperature 37.9 C H 11/17/24 07:00 Temperature Source Core 11/17/24 07:00 Pulse Rate 98 11/17/24 07:00 Pulse Strength Normal (2+) 11/16/24 22:00 Respiratory Rate 26 H 11/17/24 07:00 Respiratory Effort Non-Labored 11/17/24 04:00 Respiratory Depth Shallow 11/17/24 00:00 Respiratory Pattern Normal 11/17/24 00:00 Blood Pressure 170/98 H 11/17/24 07:00 Blood Pressure Mean 122 11/17/24 07:00 Blood Pressure Source Monitor 11/17/24 07:00 Blood Pressure Position Semi-Fowlers 11/16/24 18:00 Blood Pressure Location Right Arm 11/17/24 01:06 Pulse Ox 89 11/17/24 07:00 Oxygen Delivery Method Nasal Cannula 11/17/24 07:00 Oxygen Flow Rate (L/min) 3 11/17/24 07:00 EtCo2 (Normal 35-45 , high quality CPR 10-20 & ROSC>/=40mmHg 15 11/16/24 22:55 I&O: I&O Last 24 Hours 3 11/16/24 11/16/24 11/17/24 11:59 23:59 11:59 Intake Total 1164.91 / 2613.87 1445.83 / 2613.87 1256.80 / 1256.80 Output Total 150 / 745 545 / 745 415 / 415 Balance 1014.91 / 1868.87 900.83 / 1868.87 841.80 / 841.80 I&O: Total Stay 3 11/13/24 04:06 thru 11/17/24 07:00 Intake Total 83656.41 Output Total 3480 Balance 02106.41 Current Meds Ordered / Administered: Current meds ordered / Administered 3 Generic Name Dose Route Start Last Admin Trade Name Freq PRN Reason Stop Dose Admin Acetaminophen 650 mg 11/13/24 08:31 11/17/24 01:13 Acetaminophen 650 Mg Suppository RC 650 mg Q6H PRN PRN Administration Pain 1-10 or Fever Calamine/Phenol 1 applic 11/14/24 22:00 11/17/24 05:57 Menthol/Lanolin/Calamine/Znox 113 Gm Tube TOPICAL 1 applic TID SASHA Administration Protocol Haloperidol Lactate 0.5 mg 11/16/24 13:08 11/16/24 19:25 Haloperidol Lactate 5 Mg/Ml Vial IV 0.5 mg Q4H PRN PRN Administration AGITATION Protocol Norepinephrine Bitartrate 8 mg 250 mls @ 9.375 mls/hr 11/13/24 07:45 11/17/24 07:00 / Sodium Chloride CONT INF 0 mcg/min .[id number] SASHA 0 mls/hr Titration Protocol 5 MCG/MIN Pantoprazole Sodium 40 mg/ 110 mls @ 330 mls/hr 11/13/24 10:00 11/16/24 09:37 Sodium Chloride IV Infused Q24 SASHA Infusion Sodium Chloride 100 mls @ 15 mls/hr 11/13/24 09:26 11/16/24 12:19 IV Infused .Q6H40M PRN Infusion Saline Flush Sodium Chloride 100 mls @ 15 mls/hr 11/13/24 09:26 IV .Q6H40M PRN Additional IVPB Infusion Dextrose/Sodium Chloride 1,000 mls @ 100 mls/hr 11/15/24 14:00 11/17/24 00:15 IV 100 mls/hr .Q10H SASHA Administration Meropenem 2 gm/ Sodium 140 mls @ 97 mls/hr 11/15/24 22:00 11/16/24 23:51 Chloride IV Infused Q12 SASHA Infusion Dexmedetomidine HCl 400 mcg/ 100 mls @ 16.075 mls/hr 11/16/24 21:45 11/17/24 05:05 Sodium Chloride CONT INF Not Given .Q6H14M SASHA Protocol 0.5 MCG/KG/HR Vasopressin 20 units/ Sodium 25 mls @ 3 mls/hr 11/17/24 04:00 11/17/24 06:30 Chloride CONT INF 0 units/min .Q8H20M SASHA 0 mls/hr Infusion 0.04 UNITS/MIN Insulin Glargine 8 unit 11/13/24 17:00 11/16/24 17:46 Insulin Glargine-Yfgn 100 Unit/Ml Pen SC 8 unit DINNER SASHA Administration Insulin Human Lispro 0 unit 11/14/24 12:00 11/17/24 05:50 Insulin Lispro 100 Unit/Ml Insuln.Pen SC 2 u Q6 SASHA Administration Protocol Quetiapine Fumarate 25 mg 11/16/24 22:00 11/16/24 23:42 Quetiapine 25 Mg Tablet PO Not Given [facility] Protocol Sodium Chloride 10 - 40 ml 11/13/24 09:26 11/17/24 05:57 0.9% Saline Lock 10 Ml Syringe IV 30 ml UD PRN Administration SALINE FLUSH Lab / Micro Data Attestation: I reviewed the patient's lab results. 11/17/24 04:45 11/17/24 04:45 Labs: Laboratory Results - last 24 hr 11/16/24 11:36: POC Glucose 163 H 11/16/24 17:44: POC Glucose 164 H 11/16/24 23:27: POC Glucose 141 H 11/17/24 04:45: WBC 11.4 H, RBC 3.98 L, Hgb 11.7 L, Hct 38.4 L, MCV 96.5 H, MCH 29.4, MCHC 30.5 L, RDW Std Deviation 56.3 H, RDW Coeff of Jadon 15.8 H, Plt Count 217, MPV 10.4, Immature Gran % (Auto) 0.800, Neut % (Auto) 67.5, Lymph % (Auto) 22.6, [place] % (Auto) 6.8, Eos % (Auto) 1.4, Baso % (Auto) 0.9, Absolute Neuts (auto) 7.7, Absolute Lymphs (auto) 2.57, Nucleated RBC % 0.2, Differential Comment SCANNED, Reactive Lymphocytes 2+, Sodium 151 H, Potassium 4.7, Chloride 122 H, Carbon Dioxide 18.8 L, Anion Gap 10, BUN 64 H, Creatinine 2.36 H, Estim Creat Clear Calc 34.75 L, Est GFR (MDRD) Non-Af 27 L, BUN/Creatinine Ratio 27.1 H, Glucose 190 H, Calcium 7.5 L, Phosphorus 4.4, Magnesium 2.8 H, Cortisol AM Sample 15.30 11/17/24 07:00: Cortisol AM Sample 23.40 H Micro: Microbiology 11/13/24 06:49 Urine, Catheterized Urine Culture - Final Hafnia alvei Presumptive C albicans 11/13/24 04:35 Blood Culture (Wb) - Cvp Cath Tip Blood Culture - Final Staphylococcus epidermidis ABG Data ABG results: ABG 11/17/24 00:00 Specimen Type ART Sample Site R Radial pH 7.39 Bicarbonate Actual 18.8 L Total CO2 20 Base Excess -6 L O2 Saturation 97 O2 % 3.0 ABG pCO2 31.0 L ABG pO2 93 Blair Test Positive O2 Delivery Device Cannula Vent Mode Not entered Rhythm Strip Rhythm Strip: A-fib Rate: 99 Ectopy: PVC(s) Assessment and Plan . Assessment and plan: IMPRESSIONS: 1. Septic shock, source unclear - s/p sepsis bundle now with increasing pressor requirements - considered UTI but cultures unrevealing - tunneling left thigh wound has possibility for deeper infection 2. Toxic/metabolic encephalopathy - baseline functional status as a NHR is somewhat unclear but staff reports he currently is off his previous known baseline 3. Acute on chronic kidney disease - suspect prerenal related to sepsis pathology 4. Recent necrotizing soft tissue infection of left thigh- almost sounds like a Nereida's type lesion 5. Medical history to include obstructive sleep apnea/diabetes mellitus/coagulopathy/COPD Complicates care, management, recovery and prognosis. Continue local wound care. Recommend PAP therapy with naps and nightly. Agree with speech therapy evaluation prior to consideration for advancement of diet. RECOMMENDATIONS: 1. Continue antimicrobial therapy as ordered. 2. adding vasopressors to maintain MAP > [address] imaging to include abdomen but also left thigh 4. Ongoing dialog with family RE goals of care would be appropriate given the poor response to management thus far- prognosis would appear to be poor. 5. Continue local wound care- surgical assistance appreciated. Critical Care Time: 50 minutes The entirety of this encounter was done via Telemedicine Physical Exam Const General Appearance: anxious, uncooperative and combative Orientation / Consciousness: oriented to person and confused Exam Limitations: altered mental status HEENT Head and Scalp: normal to inspection and normocephalic Throat: posterior oropharynx abnormal Eyes PERRL and EOMs intact bilaterally Sclera: sclera normal Neck full ROM Resp normal respiratory effort Effort and Inspection: tachypneic Cardio Rhythm: abnormal rhythm GI soft to palpation Palpation: tender Bladder / Kidney Exam: catheter in place Scrotum: edematous Skin Lesions: lesion noted Subjective Subjective Hemodynamically unstable overnight, increasing requirement for vasopressors, degree of disorientation fluctuates some but was apparently briefly better last night. Now moaning, not communicating anything specific. Some loose BMs noted without bood.
[2024-11-17] MEDS: Norepinephrine 8 MG in 0.9% Normal Saline (250mL Bag) 242 ML 5.6 MG CONT INF (09:05)
--- NOTE | 2024-11-17 09:25 | CT_ITS ---
PROCEDURE: ABDOMEN/PELVIS WITHOUT CONT 11/17/2024 REASON FOR EXAM: ABDOMINAL PAIN. SEPSIS TECHNIQUE: Abdomen and pelvis CT without intravenous contrast. Noncontrast technique limits evaluation of the abdominal and pelvic viscera. Coronal and Sagittal reconstruction series were provided. One or more dose reduction techniques were used (e.g., Automated exposure control, adjustment of the mA and/or kV according to patient size, use of iterative reconstruction technique). PATIENT PREPARATION: Per protocol ORAL CONTRAST TYPE: None. COMPARISON: CT abdomen pelvis 11/13/2024. FINDINGS: Lung bases: Small right and trace left pleural effusions with adjacent atelectasis. The heart is normal in size with coronary artery and aortic valvular calcifications. Liver: The unopacified liver is normal in size. No biliary ductal dilation. Gallbladder: No radiopaque stones within the gallbladder. Spleen: Normal size. Pancreas: Diffuse fatty atrophy. Adrenals: No adrenal mass. Kidneys: Bilateral renal cortical atrophy, [id number]. Mild bilateral perinephric stranding. Right vascular calcifications. No hydronephrosis. Bladder: Partially visualized Georges catheter. Reproductive Organs: Visualization is obscured by streak artifact. Bowel: Small hiatal hernia. Dilation with air-fluid levels of the distal small bowel, measuring up to 3.5 cm, and throughout the colon, measuring up to 6.5 cm. This is grossly unchanged since comparison examination. No large volume ascites or free air. Normal appendix. Trace retained oral contrast material throughout the dependent bowel loops, from prior contrast or medication administration. Lymph nodes: Visualization is limited without the use of IV contrast. No large lymphadenopathy. Vasculature: Moderate calcific plaque throughout the aortoiliac vessels. Bones/soft tissues: Prior bilateral hip arthroplasty. Streak artifact from adjacent metal limits evaluation of left groin wound. There is a large cutaneous defect with surgical packing material within the left upper thigh/groin with mild adjacent subcutaneous stranding. No large subcutaneous fluid collection or subcutaneous gas visualized. Small fat containing periumbilical hernia. Thoracolumbar spondylosis. CT/Abdomen/Pelvis without Cont IMPRESSION: 1. Grossly unchanged dilation of the distal small bowel and colon, compatible w ith partial small bowel obstruction or postoperative ileus. Correlation with surgical history recommended. If no rec ent surgical history, progress radiographs are recommended. 2. Large cutaneous defect with surgical packing material within the left upper thigh/groin. Visualization is limited by adjacent streak artifact. No large subcutaneous fluid collection or subcutaneous gas. 3. Development of small right and trace left pleural effusions with adjacent at electasis. Reading Location: [id number]
[2024-11-17] MEDS: Pantoprazole Sodium 40 MG in 0.9% Normal Saline (100mL MB+) 100 ML 330 MG IV (09:46)
[2024-11-17] MEDS: QUEtiapine 25 MG Tablet PO (10:00)
--- NOTE | 2024-11-17 10:00 | NURSING ---
pt extremely restless in bed, unable to get accurate BP even w/3 ICU RNS present and assisting. meds restarted at 1020.
[2024-11-17] MEDS: 0.9% Normal Saline (100mL Bag) 100 ML IV (11:15)
[2024-11-17] MEDS: Meropenem 2 GM in 0.9% Normal Saline (100mL Bag) 100 ML IV ×2 (11:15→20:46)
[2024-11-17] MEDS: dexMEDEtomidine 400 MCG in 0.9% Normal Saline (100mL Bag) 96 ML 35.4 MCG CONT INF (12:04)
[2024-11-17] MEDS: TITRATION PARAMETER CHANGE 1 EACH IV (12:58)
--- NOTE | 2024-11-17 13:28 | NURSING ---
update given to pt's POA brother Enrique. disc return to IV meds to help w/agitation/blood pressure, CT this am, and overall condition. This RN suggested a meeting w/Drs tomorrow for discussion on how best to move forward, pt prognosis and what Enrique thinks the pt would want in this situation. He revealed they are having a great deal of difficulty with pt's and he hoped santos would be able to help with that. This RN suggested that Santos would not be able to participate in discussion re his until his condition significantly improves. Enrique states he will update pt's nephew Alvin and he will plan on being here Mond at 0900 to talk with the drStephanies
[2024-11-17 13:29] LABS: Bedside Glucose 164 mg/dL (74-106)
[2024-11-17] MEDS: dexMEDEtomidine 400 MCG in 0.9% Normal Saline (100mL Bag) 96 ML 38.6 MCG CONT INF (14:57)
[2024-11-17] MEDS: Dexmedetomidine 1,000 mcg in 0.9% NS 240 mL 38.7 MCG CONT INF (17:36)
[2024-11-17] MEDS: Insulin Glargine-YFGN 100 UNIT/ML Pen 8 UNIT SC (18:11)
[2024-11-17 18:45] LABS: Bedside Glucose 167 mg/dL (74-106)
[2024-11-17] MEDS: Bisacodyl 10 MG Suppository RC (20:43)
[2024-11-17 23:26] LABS: Bedside Glucose 132 mg/dL (74-106)
[2024-11-18] VITALS (46 sets, daily range): BP systolic 65–153; BP diastolic 32–126; PULSE 48–70; RESP 19–35; TEMP 37.8–38.2; O2SAT 92–97; BMI 41.8
[2024-11-18] MEDS: Norepinephrine 8 MG in 0.9% Normal Saline (250mL Bag) 242 ML 9.4 MG CONT INF (01:42)
[2024-11-18 03:35] LABS: Absolute Neutrophil Count 4.6 X10^3/uL (2.0-7.7); Basophil# 0.03 X10^3/uL; Basophil% 0.4 % (0-1); Eosinophil# 0.18 X10^3/uL; Eosinophils% 2.4 % (0-5); Hematocrit 33.3 % (40-54); Hemoglobin 10.2 g/dL (13.0-16.5); Lymphocyte % 29.1 % (19-41); Mean Corp Hgb Conc 30.6 g/dL (32-36); Mean Corpuscular Hgb 29.6 pg (27.0-32.0); Mean Corpuscular Volume 96.5 fL (80-94); Mean Platelet Vol. 10.3 fl (6.2-12.0); Monocyte# 0.47 X10^3/uL; Monocyte% 6.2 % (0-10); NRBC Flagged by Analyzer 0.3 % (0-5); Neutrophil # 4.63 X10^3/uL (2.7-7.7); Neutrophil % 61.4 % (47-70); POSITIVE MORPHOLOGY YES; Platelet Count 148 K/mm3 (150-450); RBC Distribution Width CV 15.9 % (11.6-14.6); RBC Distribution Width SD 56.5 fl (35.1-43.9); Red Blood Count 3.45 M/mm3 (4.6-6.2); White Blood Count 7.6 K/mm3 (4.4-11.0)
[2024-11-18 03:43] LABS: Differential Indicated SCAN CRITERIA MET
[2024-11-18 03:49] LABS: Prothrombin Time (Protime)PT. 32.1 SECONDS (11.7-14.9)
[2024-11-18 04:20] LABS: ALB/GLOB Ratio 0.5 RATIO (0.9-2.4); AST(SGOT) 87 U/L (<=37); Alanine Aminotransfer ALT/SGPT 31 U/L (<=46); Albumin, Serum 1.5 g/dL (3.4-4.8); Alkaline Phosphatase 105 U/L (40-129); Anion Gap 7 (5-15); BUN 66 mg/dL (4-19); BUN/Creat Ratio 29.5 RATIO (10-20); Calcium,Total 7.3 mg/dL (7.6-11.0); Carbon Dioxide 17.9 mmol/L (21.0-32.0); Chloride 124 mmol/L (98-108); Creatinine, Serum 2.24 mg/dL (0.70-1.20); EST Glomerular Filtration Rate 29 (>60); Estimated Creatinine Clearance 37.17 ml/min (50-250); Globulin 3.2 g/dL (2.2-4.2); Glucose 164 mg/dL (70-99); Potassium 4.5 mmol/L (3.3-5.1); Protein, Total 4.7 g/dL (5.9-8.4); Sodium Level 150 mmol/L (133-145); Total Bilirubin 0.55 mg/dL (0.00-1.30)
[2024-11-18] MEDS: 0.9% Saline Lock 10 ML Syringe IV (04:35)
[2024-11-18] MEDS: Menthol/Lanolin/Calamine/Znox 113 GM Tube 1 APPLIC TOPICAL ×3 (04:35→20:45)
[2024-11-18] MEDS: TITRATION PARAMETER CHANGE 1 EACH IV (04:35)
[2024-11-18 04:58] LABS: Differential Comment SCANNED; Platelet Estimate ADEQUATE (ADEQ); Red Cell Morphology NORM C+C NORMAL (NORM C&C)
[2024-11-18 05:20] LABS: Bedside Glucose 125 mg/dL (74-106)
[2024-11-18] MEDS: Dexmedetomidine 1,000 mcg in 0.9% NS 240 mL 19.8 MCG CONT INF ×2 (07:08→20:00)
--- NOTE | 2024-11-18 08:06 | PN.CC_ITS ---
Assessment & Plan Assessment/Plan (1) UTI (urinary tract infection): (2) Septic shock: PLAN: Plan RECOMMENDATIONS: 1. Continue antimicrobial therapy as ordered. 2. Continue Levophed to maintain a mean arterial pressure at or above 65 mmHg. 3. Awaiting evaluation by general surgery. 4. Continue local wound care. 5. Recommend PAP therapy with naps and nightly. 6. If NG tube was ultimately placed, could consider starting scheduled Seroquel and discontinuing Precedex. 7. Continue free water replacement per nephrology. IMPRESSIONS: 1. Septic shock The patient presented to the hospital with sepsis, which was initially presumed secondary to UTI. However, culture data has not been overtly convincing to date. The patient still remains hypotensive, with low-dose vasopressor requirement. Cosyntropin stimulation test demonstrated an appropriate response. CT imaging of the abdomen completed yesterday demonstrated a possible early SBO versus ileus. Accordingly, general surgery has been consulted to reevaluate the patient. In the interim, I am going to plan to continue the patient on antibiotics. Repeat blood cultures from yesterday are pending. I do suspect that his ongoing low-grade fever may be secondary to the Precedex that is currently being utilized. 2. Toxic/metabolic encephalopathy Related to #1. Avoid sedating medications for now. ABG was largely unrevealing. CT head failed to demonstrate acute findings. Ammonia level and TSH were within normal limits. Plan to continue supportive care, as outlined above. If NG tube is placed for ileus, could consider initiating scheduled Seroquel and discontinuing Precedex. 3. Acute on chronic kidney disease Most likely prerenal in etiology in the setting of #1. Continue supportive measures with supplemental IV fluids and vasopressor support to maintain hemodynamic stability. Continue to monitor urine output. No current indication for renal replacement therapy. 4. Recent necrotizing soft tissue infection of left thigh/obstructive sleep apnea/diabetes mellitus/coagulopathy/COPD Complicates care, management, recovery and prognosis. Continue local wound care. Recommend PAP therapy with naps and nightly. CODE STATUS: DNR CCA without intubation (discussed with family, including POA) TIME: 35 minutes of critical care time, independent of procedures, was spent addressing the patient's septic shock, metabolic encephalopathy, acute on chronic kidney disease, review of all data and collaboration with the care team. Subjective Subjective The patient was seen and examined at the bedside this morning. Events from the last 24 hours have been reviewed. Yesterday, the patient became more confused with increasing vasopressor requirement. This morning, he is currently delirious with a low-grade fever on Levophed at 4 mcg/min. The patient is documented to be overall net +15 L for the hospitalization. Although he remains on empiric antimicrobials, no definitive source of infection has yet to be identified. CT imaging yesterday demonstrated a possible early SBO versus ileus. Accordingly, the patient was reevaluated by general surgery this morning. The patient's white blood cell count is normal. Hemoglobin and platelet count are stable. Sodium remains elevated at 150 with a chloride of 124 and creatinine of 2.24. Lactate is normal at 1.6. Lipase is normal. Cosyntropin stimulation test completed yesterday demonstrated an appropriate response. Objective Data Objective Data The patient's most recent lab work, culture data and imaging studies have all been personally reviewed. Culture data to date has been largely unremarkable. Repeat blood cultures from November 17 are pending. Vital Signs: Vital Signs Temp Pulse Resp BP Pulse Ox O2 Del Method O2 Flow Rate 100.0 F H 57 L 26 H 114/47 L 94 Room Air 3 11/18/24 07:00 11/18/24 07:00 11/18/24 07:00 11/18/24 07:00 11/18/24 07:02 11/18/24 07:02 11/17/24 22:00 Oxygen Flow Rate (L/min) 3 Oxygen Delivery Method Room Air Weight: 291 lb 7.218 oz Body Mass Index (BMI) 41.8 Intake & Output: Intake and Output for Last 24 Hours 11/16/24 11/17/24 11/18/24 23:59 23:59 23:59 Intake Total 2610.74 / 2613.87 4221.02 / 4307.07 313.21 / 313.21 Output Total 695 / 745 625 / 850 275 / 275 Balance 1915.74 / 1868.87 3596.02 / 3457.07 38.21 / 38.21 Lab / Micro Data Attestation: I reviewed the patient's lab results. 11/18/24 03:28 11/18/24 03:28 Labs: Laboratory Results - last 24 hr 11/17/24 12:57: POC Glucose 164 H 11/17/24 18:09: POC Glucose 167 H 11/17/24 23:07: POC Glucose 132 H 11/18/24 03:28: WBC 7.6, RBC 3.45 L, Hgb 10.2 L, Hct 33.3 L, MCV 96.5 H, MCH 29.6, MCHC 30.6 L, RDW Std Deviation 56.5 H, RDW Coeff of Jadon 15.9 H, Plt Count 148 L, MPV 10.3, Immature Gran % (Auto) 0.500, Neut % (Auto) 61.4, Lymph % (Auto) 29.1, [place] % (Auto) 6.2, Eos % (Auto) 2.4, Baso % (Auto) 0.4, Absolute Neuts (auto) 4.6, Absolute Lymphs (auto) 2.20, Nucleated RBC % 0.3, Differential Comment SCANNED, Platelet Estimate ADEQUATE, RBC Morphology NORM C+C, PT 32.1 H, INR 3.0, Sodium 150 H, Potassium 4.5, Chloride 124 H, Carbon Dioxide 17.9 L, Anion Gap 7, BUN 66 H, Creatinine 2.24 H, Estim Creat Clear Calc 37.17 L, Est GFR (MDRD) Non-Af 29 L, BUN/Creatinine Ratio 29.5 H, Glucose 164 H, Calcium 7.3 L, Total Bilirubin 0.55, AST 87 H, ALT 31, Alkaline Phosphatase 105, Total Protein 4.7 L, Albumin 1.5 L, Globulin 3.2, Albumin/Globulin Ratio 0.5 L 11/18/24 05:02: POC Glucose 125 H Micro: Microbiology 11/13/24 04:15 Blood Culture (Wb) - Anticubital Left Blood Culture - Final No growth in 5 days. 11/13/24 06:49 Urine, Catheterized Urine Culture - Final Hafnia alvei Presumptive C albicans 11/13/24 04:35 Blood Culture (Wb) - Cvp Cath Tip Blood Culture - Final Staphylococcus epidermidis Radiography Diagnostic Testing: Radiology Impression Abdomen/Pelvis CT 11/17/24 09:25 IMPRESSION: 1. Grossly unchanged dilation of the distal small bowel and colon, compatible with partial small bowel obstruction or postoperative ileus. Correlation with surgical history recommended. If no recent surgical history, progress radiographs are recommended. 2. Large cutaneous defect with surgical packing material within the left upper thigh/groin. Visualization is limited by adjacent streak artifact. No large subcutaneous fluid collection or subcutaneous gas. 3. Development of small right and trace left pleural effusions with adjacent atelectasis. Reading Location: [facility] Rhythm Strip Rhythm Strip: A-fib Rate: 99 Ectopy: PVC(s) Physical Exam Const Constitutional Narrative: Morbidly obese. Confused and disoriented. General Appearance: lethargic and ill appearing HEENT normocephalic and head/scalp atraumatic Teeth and Gingiva: poor dentition Eyes PERRL, EOMs intact bilaterally and conjunctivae normal Neck supple General: trachea midline Chest inspection of chest normal Resp Effort and Inspection: tachypneic Auscultation: Negative for rales, rhonchi or wheezes Cardio regular rate and regular rhythm GI normal to inspection, nondistended, normoactive bowel sounds Extremity no clubbing, cyanosis or edema Skin Skin Narrative: Groin wound present on admission, currently dressed Neuro CN's II-XII intact bilaterally and moves all extremities Psych Mood & Affect: flat affect Charges/Coding Procedures Hospitalists Procedures: 24335 Critical Care 1st Hr
[2024-11-18] MEDS: Pantoprazole Sodium 40 MG in 0.9% Normal Saline (100mL MB+) 100 ML 330 MG IV (08:10)
[2024-11-18] MEDS: Dext 5%-0.45% NS 1,000 ML 100 ML IV ×2 (09:15→18:58)
--- NOTE | 2024-11-18 09:33 | CASEMGMT ---
Discharge Planning Updates sent to [facility]. Doris Sparks DC Planning Asst.
[2024-11-18 09:40] LABS: Lactic Acid 1.6 mmol/L (0.0-2.0)
[2024-11-18 10:19] LABS: Lipase 13 U/L (13-75)
[2024-11-18] MEDS: Meropenem 2 GM in 0.9% Normal Saline (100mL Bag) 100 ML IV ×2 (10:20→20:45)
--- NOTE | 2024-11-18 10:51 | CASEMGMT ---
Social Work SW spoke w/pt's nephew Alvin in the room. Alvin explained to SW that he is trying to pay pt and his 's bills, but he thinks pt's is financial POA. He has managed to pay some, but he is more concerned about his aunt(pt's ) and paying the SNF stay. She is in [facility] at this time, she has some memory issues. Alvin is wondering about financial POA, if there is a way to go about addressing this. Alvin states he has not been able to find a financial POA document. SW explained that with pt not being able to make decisions, getting financial POA may be difficult. SW did provide to Alvin a copy of pt's healthcare POA that was completed recently, which does indicate if pt were to need a financial guardian he chose brother Enrique and then nephew Alvin. SW educated Alvin that this is not enough to get financial POA however, this only indicates who pt would choose should he need this, and it would need to go through the courts. SW advised Alvin to speak w/the [employer] to see what they would require for financial POA. Alvin also has another person he is going to speak w/about this. Support offered to Alvin. SW remains available should any additional needs or questions arise. MIGDALIA Duran
[2024-11-18 11:38] LABS: Bedside Glucose 122 mg/dL (74-106)
--- NOTE | 2024-11-18 11:46 | PCM.PN.REN ---
Subjective Subjective Resting quietly. No new events. CODE STATUS changed to DNR CCA. Objective Data Objective Data Vital Signs: Vital Signs Temp Pulse Resp BP Pulse Ox O2 Del Method O2 Flow Rate 100.0 F H 53 L 35 H 102/51 L 94 Room Air 3 11/18/24 08:00 11/18/24 11:15 11/18/24 09:00 11/18/24 09:45 11/18/24 09:00 11/18/24 11:26 11/17/24 22:00 Oxygen Flow Rate (L/min) 3 Oxygen Delivery Method Room Air Weight: 132.2 kg Body Mass Index (BMI) 41.8 Intake & Output: Intake and Output for Last 24 Hours 11/16/24 11/17/24 11/18/24 23:59 23:59 23:59 Intake Total 2610.74 / 2613.87 4221.02 / 4307.07 1483.67 / 1483.67 Output Total 695 / 745 625 / 850 325 / 325 Balance 1915.74 / 1868.87 3596.02 / 3457.07 1158.67 / 1158.67 Lab / Micro Data 11/18/24 03:28 11/18/24 03:28 Labs: Laboratory Results - last 24 hr 11/17/24 12:57: POC Glucose 164 H 11/17/24 18:09: POC Glucose 167 H 11/17/24 23:07: POC Glucose 132 H 11/18/24 03:28: WBC 7.6, RBC 3.45 L, Hgb 10.2 L, Hct 33.3 L, MCV 96.5 H, MCH 29.6, MCHC 30.6 L, RDW Std Deviation 56.5 H, RDW Coeff of Jadon 15.9 H, Plt Count 148 L, MPV 10.3, Immature Gran % (Auto) 0.500, Neut % (Auto) 61.4, Lymph % (Auto) 29.1, [place] % (Auto) 6.2, Eos % (Auto) 2.4, Baso % (Auto) 0.4, Absolute Neuts (auto) 4.6, Absolute Lymphs (auto) 2.20, Nucleated RBC % 0.3, Differential Comment SCANNED, Platelet Estimate ADEQUATE, RBC Morphology NORM C+C, PT 32.1 H, INR 3.0, Sodium 150 H, Potassium 4.5, Chloride 124 H, Carbon Dioxide 17.9 L, Anion Gap 7, BUN 66 H, Creatinine 2.24 H, Estim Creat Clear Calc 37.17 L, Est GFR (MDRD) Non-Af 29 L, BUN/Creatinine Ratio 29.5 H, Glucose 164 H, Calcium 7.3 L, Total Bilirubin 0.55, AST 87 H, ALT 31, Alkaline Phosphatase 105, Total Protein 4.7 L, Albumin 1.5 L, Globulin 3.2, Albumin/Globulin Ratio 0.5 L 11/18/24 05:02: POC Glucose 125 H 11/18/24 08:45: Lactic Acid 1.6, Lipase 13 11/18/24 11:17: POC Glucose 122 H Micro: Microbiology 11/13/24 04:15 Blood Culture (Wb) - Anticubital Left Blood Culture - Final No growth in 5 days. 11/13/24 06:49 Urine, Catheterized Urine Culture - Final Hafnia alvei Presumptive C albicans 11/13/24 04:35 Blood Culture (Wb) - Cvp Cath Tip Blood Culture - Final Staphylococcus epidermidis Rhythm Strip Rhythm Strip: A-fib Rate: 99 Ectopy: PVC(s) Physical Exam Narrative Resting quietly, no apparent distress S1, S2, RRR Breath sounds clear anteriorly. On room air Abdomen soft No pitting edema Georges with clear yellow urine in bag Assessment & Plan Assessment/Plan (1) CHRISTOPHER (acute kidney injury): (2) Hyperkalemia: (3) Hypernatremia: (4) Sepsis: QUALIFIERS: Sepsis type: sepsis due to unspecified organism Sepsis acute organ dysfunction status: with acute organ dysfunction Severe sepsis acute organ dysfunction type: encephalopathy Severe sepsis shock status: with septic shock Qualified Code(s): A41.9 - Sepsis, unspecified organism; R65.21 - Severe sepsis with septic shock; G93.41 - Metabolic encephalopathy PLAN: Plan This is a 79-year-old male with past medical history significant for hypertension, hyperlipidemia, diabetes mellitus type 2, SILVER on CPAP, history of A-fib on Coumadin, history of chronic diastolic heart failure (echo from October 2024: EF 65%, stage I diastolic dysfunction, mild left ventricular hypertrophy, moderate biatrial dilatation), ulcerative colitis, COPD who was brought to the emergency room [facility] for altered mental status changes. Patient was recently admitted to the hospital early October for acute decompensated heart failure but also found to have left groin/thigh wound with abscess that progressed to necrotizing deep soft tissue infection and underwent I&D with wound VAC placement. Nephrology consulted for elevated creatinine - CHRISTOPHER superimposed on possible CKD stage IIIa; during last hospitalization from October 09 to October 27 serum creatinine ranged 1 at best peaking up to 1.8 but had leveled off around 1.3 to 1.4. For this admission, creatinine 2.3 on admission, creatinine peaked at 3.82 on 11/13, today creatinine 2.2 mg/dL. Patient is nonoliguric, he has Georges. Blood pressures low, patient remains on low-dose Levophed. Patient has urine output, he has Georges. CHRISTOPHER pre-renal possibly from sepsis, hypotension with poor renal perfusion. There is no acute indication for renal placement therapy. Baseline creatinine is around 1 to 1.4 mg/dL as of recent. Renal ultrasound no hydro. Sodium slightly elevated, will keep on IV fluids for now. Assessment and plan reviewed with Dr. Laureano.
--- NOTE | 2024-11-18 14:23 | PN.SURG_ITS ---
Subjective Subjective I was asked by faculty i on call medical assistant to reevaluate patient today. Patient has been admitted for quite some time with a leg wound. Patient has been having ongoing hypotension requiring pressors. He is also having increased confusion. It was noted that he was having some abdominal pain as exhibited by some grimacing with palpation. CT scan was performed yesterday that seem to indicate some dilated loops of small and large bowel consistent with ileus versus possible obstruction. It was requested that surgery reevaluate the patient today as well as evaluate the CT scan. I was happy to do so. Objective Data Objective Data Vital Signs: Vital Signs Temp Pulse Resp BP Pulse Ox O2 Del Method O2 Flow Rate 100.0 F H 65 31 H 90/50 L 93 Room Air 3 11/18/24 08:00 11/18/24 13:00 11/18/24 13:00 11/18/24 13:00 11/18/24 13:00 11/18/24 13:00 11/17/24 22:00 Oxygen Flow Rate (L/min) 3 Oxygen Delivery Method Room Air Weight: 291 lb 7.218 oz Body Mass Index (BMI) 41.8 Intake & Output: Intake and Output for Last 24 Hours 11/16/24 11/17/24 11/18/24 23:59 23:59 23:59 Intake Total 2610.74 / 2613.87 4221.02 / 4307.07 1727.25 / 1727.25 Output Total 695 / 745 625 / 850 325 / 325 Balance 1915.74 / 1868.87 3596.02 / 3457.07 1402.25 / 1402.25 Lab / Micro Data 11/18/24 03:28 11/18/24 03:28 Labs: Laboratory Results - last 24 hr 11/17/24 18:09: POC Glucose 167 H 11/17/24 23:07: POC Glucose 132 H 11/18/24 03:28: WBC 7.6, RBC 3.45 L, Hgb 10.2 L, Hct 33.3 L, MCV 96.5 H, MCH 29.6, MCHC 30.6 L, RDW Std Deviation 56.5 H, RDW Coeff of Jadon 15.9 H, Plt Count 148 L, MPV 10.3, Immature Gran % (Auto) 0.500, Neut % (Auto) 61.4, Lymph % (Auto) 29.1, [place] % (Auto) 6.2, Eos % (Auto) 2.4, Baso % (Auto) 0.4, Absolute Neuts (auto) 4.6, Absolute Lymphs (auto) 2.20, Nucleated RBC % 0.3, Differential Comment SCANNED, Platelet Estimate ADEQUATE, RBC Morphology NORM C+C, PT 32.1 H, INR 3.0, Sodium 150 H, Potassium 4.5, Chloride 124 H, Carbon Dioxide 17.9 L, Anion Gap 7, BUN 66 H, Creatinine 2.24 H, Estim Creat Clear Calc 37.17 L, Est GFR (MDRD) Non-Af 29 L, BUN/Creatinine Ratio 29.5 H, Glucose 164 H, Calcium 7.3 L, Total Bilirubin 0.55, AST 87 H, ALT 31, Alkaline Phosphatase 105, Total Protein 4.7 L, Albumin 1.5 L, Globulin 3.2, Albumin/Globulin Ratio 0.5 L 11/18/24 05:02: POC Glucose 125 H 11/18/24 08:45: Lactic Acid 1.6, Lipase 13 11/18/24 11:17: POC Glucose 122 H Micro: Microbiology 11/13/24 04:15 Blood Culture (Wb) - Anticubital Left Blood Culture - Final No growth in 5 days. 11/13/24 06:49 Urine, Catheterized Urine Culture - Final Hafnia alvei Presumptive C albicans 11/13/24 04:35 Blood Culture (Wb) - Cvp Cath Tip Blood Culture - Final Staphylococcus epidermidis Rhythm Strip Rhythm Strip: A-fib Rate: 99 Ectopy: PVC(s) Physical Exam Narrative Patient does not appear to be in any acute distress. His eyes are closed and he does respond to verbal stimuli. He does have some agitation as exhibited with pushing my hands away with abdominal exam. He does have a fat-containing umbilical hernia that is a moderate size. The overlying skin appears normal. Overall mild diffuse tenderness to palpation. No rebound or guarding. Abdomen did seem obese and somewhat distended Assessment & Plan Assessment/Plan (1) Incarcerated umbilical hernia: PLAN: Plan The patient is a 79-year-old male admitted with a left leg wound. Patient remains on low-dose pressors and has been having some agitation as well as possible abdominal discomfort. We have been asked to reevaluate the patient from a surgical standpoint. Clinically he seems stable. Review of his CAT scan reveals some dilated loops of small and large bowel likely consistent with ileus. I see no evidence to suggest small bowel obstruction. It was noted that he had some mild stranding around bilateral kidneys although it sounds as though he has never had a positive urine culture. I suspect some of his abdominal tenderness may be the fat-containing umbilical hernia. This is more than likely chronically incarcerated. I would not recommend any surgical intervention at this time. I do not appreciate any other intra-abdominal source to explain his hypotension and need for pressors. We will continue to follow peripherally. Please contact us if any further questions or concerns arise. My findings were discussed with Dr. Easton as well as BRID[facility] OPERATOR SLIP.
--- NOTE | 2024-11-18 14:53 | PN_ITS ---
Subjective Subjective Patient seen and examined. He drowsy and lethargic and so review of systems could not be done. His brother, sister in law and children were by his bedside. His BP is running low in the 90s systolic today. Objective Data Objective Data Vital Signs: Vital Signs Temp Pulse Resp BP Pulse Ox O2 Del Method O2 Flow Rate 100.0 F H 65 31 H 90/50 L 93 Room Air 3 11/18/24 08:00 11/18/24 13:00 11/18/24 13:00 11/18/24 13:00 11/18/24 13:00 11/18/24 13:00 11/17/24 22:00 Oxygen Flow Rate (L/min) 3 Oxygen Delivery Method Room Air Weight: 291 lb 7.218 oz Body Mass Index (BMI) 41.8 Intake & Output: Intake and Output for Last 24 Hours 11/16/24 11/17/24 11/18/24 23:59 23:59 23:59 Intake Total 2610.74 / 2613.87 4221.02 / 4307.07 1727.25 / 1727.25 Output Total 695 / 745 625 / 850 325 / 325 Balance 1915.74 / 1868.87 3596.02 / 3457.07 1402.25 / 1402.25 Lab / Micro Data 11/18/24 03:28 11/18/24 03:28 Labs: Laboratory Results - last 24 hr 11/17/24 18:09: POC Glucose 167 H 11/17/24 23:07: POC Glucose 132 H 11/18/24 03:28: WBC 7.6, RBC 3.45 L, Hgb 10.2 L, Hct 33.3 L, MCV 96.5 H, MCH 29.6, MCHC 30.6 L, RDW Std Deviation 56.5 H, RDW Coeff of Jadon 15.9 H, Plt Count 148 L, MPV 10.3, Immature Gran % (Auto) 0.500, Neut % (Auto) 61.4, Lymph % (Auto) 29.1, [place] % (Auto) 6.2, Eos % (Auto) 2.4, Baso % (Auto) 0.4, Absolute Neuts (auto) 4.6, Absolute Lymphs (auto) 2.20, Nucleated RBC % 0.3, Differential Comment SCANNED, Platelet Estimate ADEQUATE, RBC Morphology NORM C+C, PT 32.1 H, INR 3.0, Sodium 150 H, Potassium 4.5, Chloride 124 H, Carbon Dioxide 17.9 L, Anion Gap 7, BUN 66 H, Creatinine 2.24 H, Estim Creat Clear Calc 37.17 L, Est GFR (MDRD) Non-Af 29 L, BUN/Creatinine Ratio 29.5 H, Glucose 164 H, Calcium 7.3 L, Total Bilirubin 0.55, AST 87 H, ALT 31, Alkaline Phosphatase 105, Total Protein 4.7 L, Albumin 1.5 L, Globulin 3.2, Albumin/Globulin Ratio 0.5 L 11/18/24 05:02: POC Glucose 125 H 11/18/24 08:45: Lactic Acid 1.6, Lipase 13 11/18/24 11:17: POC Glucose 122 H Micro: Microbiology 11/13/24 04:15 Blood Culture (Wb) - Anticubital Left Blood Culture - Final No growth in 5 days. 11/13/24 06:49 Urine, Catheterized Urine Culture - Final Hafnia alvei Presumptive C albicans 11/13/24 04:35 Blood Culture (Wb) - Cvp Cath Tip Blood Culture - Final Staphylococcus epidermidis Rhythm Strip Rhythm Strip: A-fib Rate: 99 Ectopy: PVC(s) Physical Exam Const Constitutional Narrative: patient lethargic, frail. HEENT normocephalic and head/scalp atraumatic Mouth: dry mucous membranes Eyes PERRL and EOMs intact bilaterally Neck no lymphadenopathy and supple Lymph Lymphatic: no lymphadenopathy noted and no lymphedema noted Resp Resp Narrative: mildly diminished breath sounds bibasally, no wheezes or crackled. On room air. Cardio regular rate, regular rhythm, S1 normal heart sound, S2 normal heart sound and no murmurs GI normal to inspection, nondistended, normoactive bowel sounds, soft to palpation, non-tender and non-distended Extremity normal capillary refill, no clubbing, cyanosis or edema and no calf tenderness General Extremity: no tenderness to palpation of joints or extremities Skin General Skin Exam: no breakdown Neuro Neuro Narrative: patient lethargic, frail Psych Psych Narrative: as under neurological examination Assessment & Plan Assessment/Plan (1) Metabolic encephalopathy: (2) Septic shock: PLAN: Plan #Septic shock * remains on levophed and vasopressin. * thought to ebe due to UTI * CT avdomen and pelvis done yesterday was concerning for partial small bowel obstruction * general surgery consulted. * on IV antibiotics * titrate vasopressors to maintain MAP >65 * cosyntropin test was normal. #Acute metabolic encephalopathy * patient still confused and lethargic. Avoid sedating meds for now * CT brain showed no acute intracranial pathology * TSH and ammonia levels were WNL #Small bowel obstruction * CT of the abdomen yesterday showed some dilated small and large bowel loops consistent with ileus vs possible obstruction. * general surgery o board and doesnt think there is a small bowel obstruction or any intraabdominal pathology taht would explain the hypotension and need for pressors. * #CHRISTOPHER on CKD * Cr today is 2.24. Baseline is ~ 1.3. * nephrology on board * management as per nephrology. * #Hypernatremia * sodium is 150. Being hdyrated with IVF D5 0.45NS per nephrology * management as per nephrology * #Necrotizing infection of the left thigh * Intact dressing over the left upper thigh. * wound care on board. #incarcerated umbilical hernia: * general surgery reviewed patient and recommended conservative management as no evidence of strangulation. * #Supratherapeutic INR: resolved. #SILVER: on CPAP qhs. #Type 2 diabetes mellitus * on ISS. Accuchecks q6hrly #COPD: DVT prophylaxis:SCDs. Not indicate as patient had therapeutic INR Charges/Coding Visit Charges Inpatient E&M: 42445 Subs Hosp L3
[2024-11-18] MEDS: Insulin Glargine-YFGN 100 UNIT/ML Pen 8 UNIT SC (17:07)
[2024-11-18 17:26] LABS: Bedside Glucose 135 mg/dL (74-106)
[2024-11-19] VITALS (57 sets, daily range): BP systolic 83–172; BP diastolic 31–121; PULSE 56–122; RESP 18–35; TEMP 37.6–38.2; O2SAT 91–99; BMI 42.3
[2024-11-19 00:46] LABS: Bedside Glucose 137 mg/dL (74-106)
[2024-11-19] MEDS: Norepinephrine 8 MG in 0.9% Normal Saline (250mL Bag) 242 ML 18.8 MG CONT INF (01:12)
[2024-11-19] MEDS: Dexmedetomidine 1,000 mcg in 0.9% NS 240 mL 33.1 MCG CONT INF (04:00)
[2024-11-19 04:07] LABS: Absolute Lymphocyte Count 2.87 X10^3/uL (0.83-4.51); Absolute Neutrophil Count 6.4 X10^3/uL (2.0-7.7); Basophil# 0.06 X10^3/uL; Basophil% 0.6 % (0-1); Eosinophil# 0.34 X10^3/uL; Eosinophils% 3.4 % (0-5); Hematocrit 34.1 % (40-54); Hemoglobin 10.6 g/dL (13.0-16.5); Lymphocyte # 2.87 X10^3/ul (0.83-4.51); Lymphocyte % 28.4 % (19-41); Mean Corp Hgb Conc 31.1 g/dL (32-36); Mean Corpuscular Hgb 29.6 pg (27.0-32.0); Mean Corpuscular Volume 95.3 fL (80-94); Mean Platelet Vol. 10.9 fl (6.2-12.0); Monocyte# 0.37 X10^3/uL; Monocyte% 3.7 % (0-10); NRBC Flagged by Analyzer 0.2 % (0-5); Neutrophil % 63.1 % (47-70); POSITIVE MORPHOLOGY YES; Platelet Count 177 K/mm3 (150-450); RBC Distribution Width CV 15.9 % (11.6-14.6); RBC Distribution Width SD 55.9 fl (35.1-43.9); Red Blood Count 3.58 M/mm3 (4.6-6.2); White Blood Count 10.1 K/mm3 (4.4-11.0)
[2024-11-19 04:15] LABS: Differential Indicated SCAN CRITERIA MET
[2024-11-19 04:19] LABS: International Normalized Ratio 2.9; Prothrombin Time (Protime)PT. 30.9 SECONDS (11.7-14.9)
[2024-11-19 04:28] LABS: ALB/GLOB Ratio 0.5 RATIO (0.9-2.4); AST(SGOT) 154 U/L (<=37); Alanine Aminotransfer ALT/SGPT 48 U/L (<=46); Albumin, Serum 1.6 g/dL (3.4-4.8); Alkaline Phosphatase 126 U/L (40-129); Anion Gap 8 (5-15); BUN 60 mg/dL (4-19); Calcium,Total 7.2 mg/dL (7.6-11.0); Carbon Dioxide 16.8 mmol/L (21.0-32.0); Chloride 126 mmol/L (98-108); Creatinine, Serum 1.83 mg/dL (0.70-1.20); EST Glomerular Filtration Rate 37 (>60); Estimated Creatinine Clearance 45.49 ml/min (50-250); Globulin 3.4 g/dL (2.2-4.2); Glucose 185 mg/dL (70-99); Potassium 4.3 mmol/L (3.3-5.1); Sodium Level 151 mmol/L (133-145); Total Bilirubin 0.68 mg/dL (0.00-1.30)
[2024-11-19] MEDS: Menthol/Lanolin/Calamine/Znox 113 GM Tube 1 APPLIC TOPICAL ×3 (04:32→21:26)
[2024-11-19] MEDS: 0.9% Saline Lock 10 ML Syringe IV ×2 (04:32→17:29)
[2024-11-19 04:44] LABS: Atypical Lymphocyte 1+ %; Platelet Estimate ADEQUATE (ADEQ); Red Cell Morphology NORM C+C NORMAL (NORM C&C); Toxic Granulation 1+; Vacuolated Cells 1+
[2024-11-19] MEDS: Dext 5%-0.45% NS 1,000 ML 100 ML IV (05:20)
[2024-11-19] MEDS: TITRATION PARAMETER CHANGE 1 EACH IV (05:20)
[2024-11-19 05:27] LABS: Bedside Glucose 143 mg/dL (74-106)
--- NOTE | 2024-11-19 07:35 | PCM.PN.INT ---
Assessment & Plan Assessment/Plan (1) UTI (urinary tract infection): (2) Septic shock: PLAN: Plan RECOMMENDATIONS: 1. Continue antimicrobial therapy as ordered. 2. Continue Levophed to maintain a mean arterial pressure at or above 65 mmHg. 3. Obtain ABG this morning along with MRI brain and EEG, if feasible. 4. Discontinue Precedex. 5. Continue D5W, given hypernatremia. 6. Continue local wound care. 7. Given clinical deterioration, recommend further goals of care discussion with the patient's family. IMPRESSIONS: 1. Septic shock The patient presented to the hospital with sepsis, which was initially presumed secondary to UTI. However, culture data has not been overtly convincing to date. The patient still remains hypotensive, with ongoing vasopressor requirement. Cosyntropin stimulation test demonstrated an appropriate response. CT imaging of the abdomen completed yesterday demonstrated a possible early SBO versus ileus. The patient was evaluated by surgery, who felt the findings were likely related to ileus. Given ongoing hypotension, will obtain echocardiogram to evaluate for cardiac implications for hypotension. Antibiotics will be continued for now. I do suspect that his ongoing low-grade fever may be secondary to the Precedex that is currently being utilized. Accordingly, Precedex will be discontinued. 2. Toxic/metabolic encephalopathy Most likely related to #1. Avoid sedating medications for now. ABG was largely unrevealing. CT head failed to demonstrate acute findings. Ammonia level and TSH were within normal limits. Given the patient's increasing unresponsiveness, will obtain MRI brain and EEG, if feasible. Precedex will be discontinued. 3. Acute on chronic kidney disease Most likely prerenal in etiology in the setting of #1. Continue supportive measures with supplemental IV fluids and vasopressor support to maintain hemodynamic stability. Continue to monitor urine output. No current indication for renal replacement therapy. 4. Recent necrotizing soft tissue infection of left thigh/obstructive sleep apnea/diabetes mellitus/coagulopathy/COPD Complicates care, management, recovery and prognosis. Continue local wound care. Recommend PAP therapy with naps and nightly. CODE STATUS: DNR CCA without intubation (discussed with family, including POA) TIME: 33 minutes of critical care time, independent of procedures, was spent addressing the patient's septic shock, metabolic encephalopathy, acute on chronic kidney disease, review of all data and collaboration with the care team. Subjective Subjective The patient was seen and examined at the bedside this morning. Events from the last 24 hours have been reviewed. The patient continues to have low-grade fevers, with an ongoing Levophed requirement of 10 mcg/min. White blood cell count remains normal. Sodium remains elevated at 151 with a chloride of 126, BUN of 60 and creatinine of 1.83. He is overall significantly net positive from a volume perspective for the hospitalization. Objective Data Objective Data The patient's most recent lab work, culture data and imaging studies have all been personally reviewed. Culture data to date has been largely unremarkable. Repeat blood cultures from November 17 are pending. Vital Signs: Vital Signs Temp Pulse Resp BP Pulse Ox O2 Del Method O2 Flow Rate 100.0 F H 62 28 H 100/48 L 97 Room Air 3 11/19/24 07:00 11/19/24 07:00 11/19/24 07:00 11/19/24 07:00 11/19/24 07:00 11/19/24 07:00 11/17/24 22:00 Oxygen Flow Rate (L/min) 3 Oxygen Delivery Method Room Air Weight: 295 lb 6.711 oz Body Mass Index (BMI) 42.3 Intake & Output: Intake and Output for Last 24 Hours 11/17/24 11/18/24 11/19/24 23:59 23:59 23:59 Intake Total 4221.02 / 4307.07 3188.11 / 3215.19 1387.54 / 1387.54 Output Total 625 / 850 525 / 825 525 / 525 Balance 3596.02 / 3457.07 2663.11 / 2390.19 862.54 / 862.54 Lab / Micro Data Attestation: I reviewed the patient's lab results. 11/19/24 03:55 11/19/24 03:55 Labs: Laboratory Results - last 24 hr 11/18/24 08:45: Lactic Acid 1.6, Lipase 11/18/24 11:17: POC Glucose 122 H 11/18/24 17:07: POC Glucose 135 H 11/19/24 00:26: POC Glucose 137 H 11/19/24 03:55: WBC 10.1, RBC 3.58 L, Hgb 10.6 L, Hct 34.1 L, MCV 95.3 H, MCH 29.6, MCHC 31.1 L, RDW Std Deviation 55.9 H, RDW Coeff of Jadon 15.9 H, Plt Count 177, MPV 10.9, Immature Gran % (Auto) 0.800, Neut % (Auto) 63.1, Lymph % (Auto) 28.4, [place] % (Auto) 3.7, Eos % (Auto) 3.4, Baso % (Auto) 0.6, Absolute Neuts (auto) 6.4, Absolute Lymphs (auto) 2.87, Nucleated RBC % 0.2, Atypical Lymphocytes 1+, Toxic Granulation 1+, Toxic Vacuolation 1+, Platelet Estimate ADEQUATE, RBC Morphology NORM C+C, PT 30.9 H, INR 2.9, Sodium 151 H, Potassium 4.3, Chloride 126 H, Carbon Dioxide 16.8 L, Anion Gap 8, BUN 60 H, Creatinine 1.83 H, Estim Creat Clear Calc 45.49 L, Est GFR (MDRD) Non-Af 37 L, BUN/Creatinine Ratio 33.0 H, Glucose 185 H, Calcium 7.2 L, Total Bilirubin 0.68, AST 154 H, ALT 48 H, Alkaline Phosphatase 126, Total Protein 5.0 L, Albumin 1.6 L, Globulin 3.4, Albumin/Globulin Ratio 0.5 L 11/19/24 05:09: POC Glucose 143 H Micro: Microbiology 11/13/24 04:15 Blood Culture (Wb) - Anticubital Left Blood Culture - Final No growth in 5 days. 11/13/24 06:49 Urine, Catheterized Urine Culture - Final Hafnia alvei Presumptive C albicans 11/13/24 04:35 Blood Culture (Wb) - Cvp Cath Tip Blood Culture - Final Staphylococcus epidermidis Radiography Diagnostic Testing: Radiology Impression Abdomen/Pelvis CT 11/17/24 09:25 IMPRESSION: 1. Grossly unchanged dilation of the distal small bowel and colon, compatible with partial small bowel obstruction or postoperative ileus. Correlation with surgical history recommended. If no recent surgical history, progress radiographs are recommended. 2. Large cutaneous defect with surgical packing material within the left upper thigh/groin. Visualization is limited by adjacent streak artifact. No large subcutaneous fluid collection or subcutaneous gas. 3. Development of small right and trace left pleural effusions with adjacent atelectasis. Reading Location: [facility] Rhythm Strip Rhythm Strip: A-fib Rate: 99 Ectopy: PVC(s) Physical Exam Const Constitutional Narrative: Morbidly obese. Currently unresponsive. General Appearance: lethargic and ill appearing HEENT normocephalic and head/scalp atraumatic Teeth and [place]: poor dentition Eyes PERRL, EOMs intact bilaterally and conjunctivae normal Neck supple General: trachea midline Chest inspection of chest normal Resp Effort and Inspection: tachypneic Auscultation: Negative for rales, rhonchi or wheezes Cardio regular rate and regular rhythm GI normal to inspection, nondistended, normoactive bowel sounds Extremity General Extremity: edema Skin Skin Narrative: Groin wound present on admission, currently dressed Neuro Neuro Narrative: Currently nonresponsive to verbal and tactile stimulation. Psych Mood & Affect: flat affect Charges/Coding Procedures Hospitalists Procedures: [id number] Critical Care 1st Hr
[2024-11-19] MEDS: Dextrose 5%-Water (1000mL Bag) 1,000 ML 100 ML IV (08:10)
[2024-11-19 08:23] LABS: Allen Test Positive; Base Excess -7 mmol/L (-2 to +2); Bicarbonate 17.4 mmol/L (22-26); Blood Gas Specimen Type ART; Mode Not entered; O2 Delivery Device Room Air; PO2 73 mmHG (75-100); SITE L Radial; SO2 95 % (95-99); Total Carbon Dioxide 18 mmol/L; pCO2 26.3 mmHg (35-45); pH 7.43 (7.35-7.45)
--- NOTE | 2024-11-19 08:25 | RAD_ITS ---
PROCEDURE: ABDOMEN SINGLE VIEW (PORTABLE) 11/19/2024 REASON FOR EXAM: ILEUS TECHNIQUE: Single view abdomen. COMPARISON: CT scan on 04/10/2025. FINDINGS: Mild diffuse gaseous dilatation of the bowels and the colon, slightly improved. Diffuse spondylosis. Unremarkable metallic prostheses of the hips. Unchanged mild bilateral pleural effusions with passive atelectatic airspace disease of the lower lobes. RAD/Abdomen Single View (Portable) IMPRESSION: Mild diffuse gaseous dilatation of the bowels of the colon, slightly improved. Reading Location: [place] [id number]
--- NOTE | 2024-11-19 09:23 | ECHOLC_ITS ---
Reason For Study Reason For Study: Dyspnea Procedure This was a limited 2D transthoracic echocardiogram. Contrast injection was performed. Exam performed portable in ICU/CCU. Left Ventricle Normal LV size. Left ventricular systolic function is normal. The left ventricular ejection fraction is 65 %. No regional wall motion abnormalities noted. Right Ventricle Normal RV size. Normal systolic function. Atria Normal left atrium. Normal right atrium. Mitral Valve Normal mitral valve. Tricuspid Valve Normal tricuspid valve. Mild to moderate (1-2+) tricuspid valve insufficiency. Pulmonary artery systolic pressure is 40 mmHg. Pulmonic Valve The pulmonic valve is not well visualized. Great Vessels Normal aortic root. The pulmonary artery is normal size. Normal inferior vena cava. Pericardium/Pleural No pericardial effusion. Medication Diluted definity 1.5ml given slow IV push to enhance endocardial definition. MMode/2D Measurements & Calculations LVIDd: 3.9 cm IVSd: 1.2 cm LVAd ap4: 32.3 cm2 LVIDs: 2.5 cm LVPWd: 1.2 cm LVLd ap4: 8.3 cm FS: 36.0 % EDV(MOD-sp4): 102.1 ml EDV(sp4-el): 106.3 ml LVAs ap4: 15.7 cm2 LVLs ap4: 6.3 cm ESV(MOD-sp4): 32.5 ml ESV(sp4-el): 33.1 ml EF(MOD-sp4): 68.2 % EF(sp4-el): 68.9 % SV(MOD-sp4): 69.6 ml SV(sp4-el): 73.2 ml SI(MOD-sp4): 28.3 ml/m2 Doppler Measurements & Calculations TR max giovana: 300.6 cm/sec TR max P.1 mmHg ECHO/Echo Limited w/Contrast Interpretation Summary Normal LV size. Left ventricular systolic function is normal. The left ventricular ejection fraction is 65 %. Pulmonary artery systolic pressure is 40 mmHg. Contrast injection was performed. Ordering Physician: Vikram Easton Performed By: Adriana Palacios, DAVID, RVT
--- NOTE | 2024-11-19 09:23 | WOUNDNOTE ---
wound photo: left upper inner thigh
[2024-11-19] MEDS: Pantoprazole Sodium 40 MG in 0.9% Normal Saline (100mL MB+) 100 ML 330 MG IV (09:46)
[2024-11-19] MEDS: Meropenem 2 GM in 0.9% Normal Saline (100mL Bag) 100 ML IV ×2 (09:46→21:33)
[2024-11-19] MEDS: Furosemide 40 MG/4 ML Vial IV (09:46)
--- NOTE | 2024-11-19 10:50 | PCM.PROGNOTE ---
Subjective Subjective Patient seen and examined. His nurse was by his bedside. Patient remains very lethargic. Unable to do review of systems as he is barely responsive. He is on room air. He is tachypneic with respiratory rate at 34 today. Objective Data Objective Data Vital Signs: Vital Signs Temp Pulse Resp BP Pulse Ox O2 Del Method O2 Flow Rate 100.2 F H 65 34 H 110/42 L 96 Room Air 3 11/19/24 08:00 11/19/24 10:04 11/19/24 10:00 11/19/24 10:00 11/19/24 10:00 11/19/24 10:00 11/17/24 22:00 Oxygen Flow Rate (L/min) 3 Oxygen Delivery Method Room Air Weight: 295 lb 6.711 oz Body Mass Index (BMI) 42.3 Intake & Output: Intake and Output for Last 24 Hours 11/17/24 11/18/24 11/19/24 23:59 23:59 23:59 Intake Total 4221.02 / 4307.07 3188.11 / 3215.19 1904.27 / 1904.27 Output Total 625 / 850 525 / 825 525 / 525 Balance 3596.02 / 3457.07 2663.11 / 2390.19 1379.27 / 1379.27 Lab / Micro Data 11/19/24 03:55 11/19/24 03:55 Labs: Laboratory Results - last 24 hr 11/18/24 11:17: POC Glucose 122 H 11/18/24 17:07: POC Glucose 135 H 11/19/24 00:26: POC Glucose 137 H 11/19/24 03:55: WBC 10.1, RBC 3.58 L, Hgb 10.6 L, Hct 34.1 L, MCV 95.3 H, MCH 29.6, MCHC 31.1 L, RDW Std Deviation 55.9 H, RDW Coeff of Jadon 15.9 H, Plt Count 177, MPV 10.9, Immature Gran % (Auto) 0.800, Neut % (Auto) 63.1, Lymph % (Auto) 28.4, [place] % (Auto) 3.7, Eos % (Auto) 3.4, Baso % (Auto) 0.6, Absolute Neuts (auto) 6.4, Absolute Lymphs (auto) 2.87, Nucleated RBC % 0.2, Atypical Lymphocytes 1+, Toxic Granulation 1+, Toxic Vacuolation 1+, Platelet Estimate ADEQUATE, RBC Morphology NORM C+C, PT 30.9 H, INR 2.9, Sodium 151 H, Potassium 4.3, Chloride 126 H, Carbon Dioxide 16.8 L, Anion Gap 8, BUN 60 H, Creatinine 1.83 H, Estim Creat Clear Calc 45.49 L, Est GFR (MDRD) Non-Af 37 L, BUN/Creatinine Ratio 33.0 H, Glucose 185 H, Calcium 7.2 L, Total Bilirubin 0.68, AST 154 H, ALT 48 H, Alkaline Phosphatase 126, Total Protein 5.0 L, Albumin 1.6 L, Globulin 3.4, Albumin/Globulin Ratio 0.5 L 11/19/24 05:09: POC Glucose 143 H Micro: Microbiology 11/17/24 05:00 Blood Culture (Wb) - Anticubital Right Blood Culture - Preliminary No growth in 48 hours. 11/17/24 04:45 Blood Culture (Wb) - Anticubital Right Blood Culture - Preliminary No growth in 48 hours. 11/13/24 04:15 Blood Culture (Wb) - Anticubital Left Blood Culture - Final No growth in 5 days. 11/13/24 06:49 Urine, Catheterized Urine Culture - Final Hafnia alvei Presumptive C albicans 11/13/24 04:35 Blood Culture (Wb) - Cvp Cath Tip Blood Culture - Final Staphylococcus epidermidis ABG Data ABG results: ABG 11/19/24 08:18 Specimen Type ART Sample Site L Radial pH 7.43 Bicarbonate Actual 17.4 L Total CO2 18 Base Excess -7 L O2 Saturation 95 ABG pCO2 26.3 L ABG pO2 73 L Blair Test Positive O2 Delivery Device Room Air Vent Mode Not entered Radiography Diagnostic Testing: Radiology Impression KUB X-Ray 11/19/24 08:25 IMPRESSION: Mild diffuse gaseous dilatation of the bowels of the colon, slightly improved. Reading Location: [place] [id number] Rhythm Strip Rhythm Strip: A-fib Rate: 99 Ectopy: PVC(s) Physical Exam Const Constitutional Narrative: patient lethargic, frail. Orientation / Consciousness: confused and lethargic HEENT normocephalic, head/scalp atraumatic and moist oral mucous membranes Eyes PERRL and EOMs intact bilaterally Neck no lymphadenopathy and supple Lymph Lymphatic: no lymphadenopathy noted and no lymphedema noted Resp normal respiratory effort, no retractions, no use of accessory muscles and clear to auscultation bilaterally Resp Narrative: mildly diminished breath sounds bibasally, no wheezes or crackles. On room air. Cardio regular rate, regular rhythm, S1 normal heart sound, S2 normal heart sound and no murmurs GI normal to inspection, nondistended, normoactive bowel sounds, soft to palpation and non-tender GI Narrative: distended. nontender to palpation Auscultation: hypoactive bowel sounds Extremity normal to inspection, full ROM, normal capillary refill, no clubbing, cyanosis or edema and no calf tenderness General Extremity: no tenderness to palpation of joints or extremities Skin General Skin Exam: no breakdown Neuro Neuro Narrative: patient lethargic, frail Psych Psych Narrative: as under neurological examination Assessment & Plan Assessment/Plan (1) Metabolic encephalopathy: (2) Septic shock: PLAN: Plan #Septic shock remains on levophed and vasopressin. thought to be due to UTI CT abdomen and pelvis done yesterday was concerning for partial small bowel obstruction general surgery on board and recommends conservative management for now on IV antibiotics titrate vasopressors to maintain MAP >65 cosyntropin test was normal. #Acute metabolic encephalopathy patient still confused and lethargic. Avoid sedating meds for now CT brain showed no acute intracranial pathology TSH and ammonia levels were WNL get MRI of the brain today #Small bowel obstruction CT of the abdomen showed some dilated small and large bowel loops consistent with ileus vs possible obstruction. general surgery o board and doesnt think there is a small bowel obstruction or any intraabdominal pathology taht would explain the hypotension and need for pressors. KUB this morning showed mild diffuse gaseous dilatation of the bowels of the colon, slightly improved. #CHRISTOPHER on CKD Cr today is further down to 1.83. Improving. Baseline is ~ 1.3. nephrology on board management as per nephrology. #Hypernatremia sodium is 151. Being hydrated with IVF D5 0.45NS per nephrology management as per nephrology fluid switched to D5W. #Necrotizing infection of the left thigh Intact dressing over the left upper thigh. wound care on board. #incarcerated umbilical hernia: general surgery reviewed patient and recommended conservative management as no evidence of strangulation. #Supratherapeutic INR: resolved. #SILVER: on CPAP qhs. #Type 2 diabetes mellitus on ISS. Accuchecks q6hrly DVT prophylaxis: SCDs. Not indicate as patient had therapeutic INR Charges/Coding Visit Charges Inpatient E&M: 48214 [facility] Hosp L3
[2024-11-19] MEDS: Insulin Lispro 100 UNIT/ML INSULN.PEN SC (11:16)
[2024-11-19 12:09] LABS: Bedside Glucose 153 mg/dL (74-106)
[2024-11-19] MEDS: Norepinephrine 8 MG in 0.9% Normal Saline (250mL Bag) 242 ML 13.1 MG CONT INF (15:15)
[2024-11-19] MEDS: Insulin Glargine-YFGN 100 UNIT/ML Pen 8 UNIT SC (16:13)
[2024-11-19] MEDS: Lorazepam 2 MG/ML WCH Syringe 1 MG IV (17:29)
[2024-11-19 17:31] LABS: Bedside Glucose 139 mg/dL (74-106)
[2024-11-19] MEDS: dexMEDEtomidine 400 MCG in 0.9% Normal Saline (100mL Bag) 96 ML 50.3 MCG CONT INF (18:23)
--- NOTE | 2024-11-19 19:14 | NURSING ---
patient has been restless throughout the day, continues to move legs out of bed, arms over head. Precedex D/C'd this am, MRI ordered this evening. Received ativan 1 mg IV x1 prior to MRI. This RN transferred patient to MRI at 1730. At 1815, called hospitalist office to try to reach Dr. Turcios. Dr. Vaca answered and willing to help. See physician notification. Precedex started at 1823 at max dose 1.5 mcg/kg/min. Pen Tester, Shawna Peguero, in MRI also. At 1850 patient remained restless and unable to get good MRI images. Shawna called Dr. Vaca and Dr. Vaca gave order to cancel MRI tonight and try to do first thing in the am and wean precedex off.
[2024-11-19] MEDS: dexMEDEtomidine 400 MCG in 0.9% Normal Saline (100mL Bag) 96 ML 46.9 MCG CONT INF (20:11)
[2024-11-19] MEDS: dexMEDEtomidine 400 MCG in 0.9% Normal Saline (100mL Bag) 96 ML 43.6 MCG CONT INF (22:14)
[2024-11-20] VITALS (53 sets, daily range): BP systolic 82–157; BP diastolic 28–79; PULSE 58–126; RESP 18–32; TEMP 36.8–37.6; O2SAT 92–99; BMI 42.2
[2024-11-20 00:19] LABS: Bedside Glucose 125 mg/dL (74-106)
[2024-11-20] MEDS: Dexmedetomidine 1,000 mcg in 0.9% NS 240 mL 43.6 MCG CONT INF (00:35)
[2024-11-20] MEDS: Menthol/Lanolin/Calamine/Znox 113 GM Tube 1 APPLIC TOPICAL ×3 (05:29→21:22)
[2024-11-20] MEDS: 0.9% Saline Lock 10 ML Syringe IV ×3 (05:29→21:21)
[2024-11-20 05:45] LABS: Absolute Lymphocyte Count 2.69 X10^3/uL (0.83-4.51); Absolute Neutrophil Count 5.8 X10^3/uL (2.0-7.7); Basophil# 0.03 X10^3/uL; Basophil% 0.3 % (0-1); Eosinophil# 0.27 X10^3/uL; Eosinophils% 2.9 % (0-5); Hemoglobin 10.2 g/dL (13.0-16.5); Lymphocyte # 2.69 X10^3/ul (0.83-4.51); Lymphocyte % 28.9 % (19-41); Mean Corp Hgb Conc 30.9 g/dL (32-36); Mean Corpuscular Hgb 29.5 pg (27.0-32.0); Mean Corpuscular Volume 95.4 fL (80-94); Mean Platelet Vol. 11.4 fl (6.2-12.0); Monocyte# 0.43 X10^3/uL; Monocyte% 4.6 % (0-10); NRBC Flagged by Analyzer 0.2 % (0-5); Neutrophil # 5.83 X10^3/uL (2.7-7.7); Neutrophil % 62.7 % (47-70); POSITIVE MORPHOLOGY YES; Platelet Count 190 K/mm3 (150-450); RBC Distribution Width CV 16.1 % (11.6-14.6); RBC Distribution Width SD 56.7 fl (35.1-43.9); Red Blood Count 3.46 M/mm3 (4.6-6.2); White Blood Count 9.3 K/mm3 (4.4-11.0)
[2024-11-20 05:51] LABS: Differential Indicated SCAN CRITERIA MET
[2024-11-20 05:53] LABS: Bedside Glucose 133 mg/dL (74-106)
[2024-11-20 05:59] LABS: Prothrombin Time (Protime)PT. 31.5 SECONDS (11.7-14.9)
[2024-11-20 06:11] LABS: ALB/GLOB Ratio 0.4 RATIO (0.9-2.4); AST(SGOT) 94 U/L (<=37); Alanine Aminotransfer ALT/SGPT 42 U/L (<=46); Albumin, Serum 1.5 g/dL (3.4-4.8); Alkaline Phosphatase 125 U/L (40-129); Anion Gap 8 (5-15); BUN 56 mg/dL (4-19); BUN/Creat Ratio 34.3 RATIO (10-20); Calcium,Total 7.3 mg/dL (7.6-11.0); Carbon Dioxide 18.3 mmol/L (21.0-32.0); Chloride 126 mmol/L (98-108); Creatinine, Serum 1.62 mg/dL (0.70-1.20); EST Glomerular Filtration Rate 43 (>60); Estimated Creatinine Clearance 51.65 ml/min (50-250); Globulin 3.5 g/dL (2.2-4.2); Glucose 153 mg/dL (70-99); Potassium 4.4 mmol/L (3.3-5.1); Sodium Level 152 mmol/L (133-145); Total Bilirubin 0.62 mg/dL (0.00-1.30)
[2024-11-20 06:18] LABS: Differential Comment SCANNED; Platelet Estimate ADEQUATE (ADEQ); Red Cell Morphology NORM C+C NORMAL (NORM C&C)
--- NOTE | 2024-11-20 07:36 | PN.CC_ITS ---
Assessment & Plan Assessment/Plan (1) UTI (urinary tract infection): (2) Septic shock: PLAN: Plan RECOMMENDATIONS: 1. Continue antimicrobial therapy as ordered to complete 7 days of therapy. 2. Continue Levophed to maintain a mean arterial pressure at or above 65 mmHg. 3. Obtain MRI brain this morning. Awaiting read on EEG completed yesterday. 4. Continue D5W. 5. Continue local wound care. 6. Plan to meet with the family tomorrow to discuss results of testing, prognosis and goals of care. IMPRESSIONS: 1. Septic shock The patient presented to the hospital with sepsis, which was initially presumed secondary to UTI. However, culture data has not been overtly convincing to date. The patient still remains hypotensive, with ongoing vasopressor requirement. Cosyntropin stimulation test demonstrated an appropriate response. CT imaging of the abdomen completed yesterday demonstrated a possible early SBO versus ileus. The patient was evaluated by surgery, who felt the findings were likely related to ileus. Echocardiogram revealed intact, normal systolic function. Antibiotics will be continued for now to complete 7 days of therapy. 2. Toxic/metabolic encephalopathy Most likely related to #1. Avoid sedating medications for now. ABG was largely unrevealing. CT head failed to demonstrate acute findings. Ammonia level and TSH were within normal limits. Given the patient's increasing unresponsiveness, will obtain MRI brain and EEG. 3. Acute on chronic kidney disease Most likely prerenal in etiology in the setting of #1. Continue supportive measures with supplemental IV fluids and vasopressor support to maintain hemodynamic stability. Continue to monitor urine output. No current indication for renal replacement therapy. 4. Recent necrotizing soft tissue infection of left thigh/obstructive sleep apnea/diabetes mellitus/coagulopathy/COPD Complicates care, management, recovery and prognosis. Continue local wound care. CODE STATUS: DNR CCA without intubation (discussed with family, including POA). Family is leaning towards a transition to comfort care measures in the next 24 hours, if the patient does not begin to improve clinically. TIME: 32 minutes of critical care time, independent of procedures, was spent addressing the patient's septic shock, metabolic encephalopathy, acute on chronic kidney disease, review of all data and collaboration with the care team. Subjective Subjective The patient was seen and examined at the bedside this morning. Events from the last 24 hours have been reviewed. Although an attempt was made last evening to obtain the MRI of the brain that was ordered, the patient was moving too much to obtain the imaging study. Accordingly, he was placed back on Precedex in hopes of obtaining the head imaging study this morning. EEG was completed, with read pending. The patient remains largely unchanged from yesterday, and remains on low-dose Levophed to maintain hemodynamic stability. White blood cell count remains normal. INR is elevated at 3.0. Sodium remains elevated at 152 with a creatinine of 1.62. Objective Data Objective Data The patient's most recent lab work, culture data and imaging studies have all been personally reviewed. Culture data to date has been largely unremarkable. Repeat blood cultures from November 17 have not demonstrated any growth to date. Vital Signs: Vital Signs Temp Pulse Resp BP Pulse Ox O2 Del Method O2 Flow Rate 98.2 F 65 23 H 127/42 H 94 Room Air 3 11/20/24 06:00 11/20/24 07:00 11/20/24 07:00 11/20/24 07:00 11/20/24 07:00 11/20/24 07:00 11/17/24 22:00 Oxygen Flow Rate (L/min) 3 Oxygen Delivery Method Room Air Weight: 294 lb 1.546 oz Body Mass Index (BMI) 42.2 Intake & Output: Intake and Output for Last 24 Hours 11/18/24 11/19/24 11/20/24 23:59 23:59 23:59 Intake Total 3188.11 / 3215.19 3513.10 / 3515.93 357.56 / 357.56 Output Total 525 / 825 2325 / 2325 350 / 350 Balance 2663.11 / 2390.19 1188.10 / 1190.93 7.56 / 7.56 Lab / Micro Data Attestation: I reviewed the patient's lab results. 11/20/24 05:33 11/20/24 05:33 Labs: Laboratory Results - last 24 hr 11/19/24 11:15: POC Glucose 153 H 11/19/24 16:11: POC Glucose 139 H 11/20/24 00:01: POC Glucose 125 H 11/20/24 05:33: WBC 9.3, RBC 3.46 L, Hgb 10.2 L, Hct 33.0 L, MCV 95.4 H, MCH 29.5, MCHC 30.9 L, RDW Std Deviation 56.7 H, RDW Coeff of Jadon 16.1 H, Plt Count 190, MPV 11.4, Immature Gran % (Auto) 0.600, Neut % (Auto) 62.7, Lymph % (Auto) 28.9, [place] % (Auto) 4.6, Eos % (Auto) 2.9, Baso % (Auto) 0.3, Absolute Neuts (auto) 5.8, Absolute Lymphs (auto) 2.69, Nucleated RBC % 0.2, Differential Comment SCANNED, Platelet Estimate ADEQUATE, RBC Morphology NORM C+C, PT 31.5 H, INR 3.0, Sodium 152 H, Potassium 4.4, Chloride 126 H, Carbon Dioxide 18.3 L, Anion Gap 8, BUN 56 H, Creatinine 1.62 H, Estim Creat Clear Calc 51.65, Est GFR (MDRD) Non-Af 43 L, BUN/Creatinine Ratio 34.3 H, Glucose 153 H, Calcium 7.3 L, Total Bilirubin 0.62, AST 94 H, ALT 42, Alkaline Phosphatase 125, Total Protein 5.0 L, Albumin 1.5 L, Globulin 3.5, Albumin/Globulin Ratio 0.4 L, POC Glucose 133 H Micro: Microbiology 11/17/24 05:00 Blood Culture (Wb) - Anticubital Right Blood Culture - Preliminary No growth in 48 hours. 11/17/24 04:45 Blood Culture (Wb) - Anticubital Right Blood Culture - Preliminary No growth in 48 hours. 11/13/24 04:15 Blood Culture (Wb) - Anticubital Left Blood Culture - Final No growth in 5 days. 11/13/24 06:49 Urine, Catheterized Urine Culture - Final Hafnia alvei Presumptive C albicans 11/13/24 04:35 Blood Culture (Wb) - Cvp Cath Tip Blood Culture - Final Staphylococcus epidermidis ABG Data ABG results: ABG 11/19/24 08:18 Specimen Type ART Sample Site L Radial pH 7.43 Bicarbonate Actual 17.4 L Total CO2 18 Base Excess -7 L O2 Saturation 95 ABG pCO2 26.3 L ABG pO2 73 L Blair Test Positive O2 Delivery Device Room Air Vent Mode Not entered Radiography Diagnostic Testing: Radiology Impression KUB X-Ray 11/19/24 08:25 IMPRESSION: Mild diffuse gaseous dilatation of the bowels of the colon, slightly improved. Reading Location: [id number] Echocardiogram 11/19/24 09:23 Interpretation Summary Normal LV size. Left ventricular systolic function is normal. The left ventricular ejection fraction is 65 %. Pulmonary artery systolic pressure is 40 mmHg. Contrast injection was performed. Ordering Physician: Vikram Easton Performed By: Adriana Palacios, DAVID, RVT Rhythm Strip Rhythm Strip: A-fib Rate: 99 Ectopy: PVC(s) Physical Exam Const Constitutional Narrative: Morbidly obese. Currently unresponsive. General Appearance: lethargic and ill appearing HEENT normocephalic and head/scalp atraumatic Teeth and Gingiva: poor dentition Eyes PERRL, EOMs intact bilaterally and conjunctivae normal Neck supple General: trachea midline Chest inspection of chest normal Resp Effort and Inspection: tachypneic Auscultation: Negative for rales, rhonchi or wheezes Cardio regular rate and regular rhythm GI normal to inspection, nondistended, normoactive bowel sounds Extremity General Extremity: edema Skin Skin Narrative: Groin wound present on admission, currently dressed Neuro Neuro Narrative: Currently nonresponsive to verbal and tactile stimulation. Psych Mood & Affect: flat affect Charges/Coding Procedures Hospitalists Procedures: [id number] Critical Care 1st Hr
[2024-11-20] MEDS: Dexmedetomidine 1,000 mcg in 0.9% NS 240 mL 23.3 MCG CONT INF (08:42)
--- NOTE | 2024-11-20 08:45 | NURSING ---
To MRI via bed w/ radiology nurse
--- NOTE | 2024-11-20 09:00 | MRI_ITS ---
PROCEDURE: BRAIN W/WO CONTRAST (MRIBRWW), 11/20/2024 REASON FOR EXAM: ENCEPHALOPATHY COMPARISON: 11/14/2024 TECHNIQUE: Multisequence multiplanar MRI brain was performed with and without intravenous contrast. Contrast: 25 mL Clariscan. FINDINGS: Variable overall mild/moderate motion limitation despite repeat attempts at some sequences. Some sequences are moderately to severely motion degraded. Cerebrum: No acute infarct, mass, or definite acute intracranial hemorrhage. Moderate to advanced cerebral volume loss and supratentorial white matter abnormalities, nonspecific but compatible with chronic microvascular ischemic changes. Old lacunar infarct in the RIGHT basal ganglia with suspected hemosiderin staining. Cerebellum: Small old RIGHT cerebellar hemispheric infarct. Brainstem: Unremarkable. Ventricles/extra-axial spaces: Age-appropriate appearance. Tiny cavum septum pellucidum, normal variant. Major flow voids: Grossly unremarkable within limits of nondedicated technique. Paranasal sinuses: Trace mastoid effusions. Scalp/calvarium: Unremarkable. Orbits: Bilateral cataract surgery. Other: No abnormal enhancement. MRI/Brain W/WO Contrast IMPRESSION: 1. Somewhat motion limited exam. 2. No specific evidence of an acute intracranial process. 3. Additional description as above. Reading Location: [id number]
[2024-11-20] MEDS: Dextrose 5%-Water (1000mL Bag) 1,000 ML 125 ML IV ×2 (10:19→18:29)
[2024-11-20] MEDS: Pantoprazole Sodium 40 MG in 0.9% Normal Saline (100mL MB+) 100 ML 330 MG IV (10:20)
[2024-11-20] MEDS: Meropenem 2 GM in 0.9% Normal Saline (100mL Bag) 100 ML IV ×2 (10:41→21:22)
--- NOTE | 2024-11-20 11:13 | PCM.PN.REN ---
Subjective Subjective No new events. Remains unresponsive Objective Data Objective Data Vital Signs: Vital Signs Temp Pulse Resp BP Pulse Ox O2 Del Method O2 Flow Rate 98.8 F 63 30 H 93/47 L 95 Room Air 3 11/20/24 10:15 11/20/24 11:00 11/20/24 11:00 11/20/24 11:00 11/20/24 11:00 11/20/24 11:00 11/17/24 22:00 Oxygen Flow Rate (L/min) 3 Oxygen Delivery Method Room Air Weight: 133.4 kg Body Mass Index (BMI) 42.2 Intake & Output: Intake and Output for Last 24 Hours 11/18/24 11/19/24 11/20/24 23:59 23:59 23:59 Intake Total 3188.11 / 3215.19 3513.10 / 3515.93 595.19 / 595.19 Output Total 525 / 825 2325 / 2325 350 / 350 Balance 2663.11 / 2390.19 1188.10 / 1190.93 245.19 / 245.19 Lab / Micro Data 11/20/24 05:33 11/20/24 05:33 Labs: Laboratory Results - last 24 hr 11/19/24 11:15: POC Glucose 153 H 11/19/24 16:11: POC Glucose 139 H 11/20/24 00:01: POC Glucose 125 H 11/20/24 05:33: WBC 9.3, RBC 3.46 L, Hgb 10.2 L, Hct 33.0 L, MCV 95.4 H, MCH 29.5, MCHC 30.9 L, RDW Std Deviation 56.7 H, RDW Coeff of Jadon 16.1 H, Plt Count 190, MPV 11.4, Immature Gran % (Auto) 0.600, Neut % (Auto) 62.7, Lymph % (Auto) 28.9, [place] % (Auto) 4.6, Eos % (Auto) 2.9, Baso % (Auto) 0.3, Absolute Neuts (auto) 5.8, Absolute Lymphs (auto) 2.69, Nucleated RBC % 0.2, Differential Comment SCANNED, Platelet Estimate ADEQUATE, RBC Morphology NORM C+C, PT 31.5 H, INR 3.0, Sodium 152 H, Potassium 4.4, Chloride 126 H, Carbon Dioxide 18.3 L, Anion Gap 8, BUN 56 H, Creatinine 1.62 H, Estim Creat Clear Calc 51.65, Est GFR (MDRD) Non-Af 43 L, BUN/Creatinine Ratio 34.3 H, Glucose 153 H, Calcium 7.3 L, Total Bilirubin 0.62, AST 94 H, ALT 42, Alkaline Phosphatase 125, Total Protein 5.0 L, Albumin 1.5 L, Globulin 3.5, Albumin/Globulin Ratio 0.4 L, POC Glucose 133 H Micro: Microbiology 11/17/24 05:00 Blood Culture (Wb) - Anticubital Right Blood Culture - Preliminary No growth in 48 hours. 11/17/24 04:45 Blood Culture (Wb) - Anticubital Right Blood Culture - Preliminary No growth in 48 hours. 11/13/24 04:15 Blood Culture (Wb) - Anticubital Left Blood Culture - Final No growth in 5 days. 11/13/24 06:49 Urine, Catheterized Urine Culture - Final Hafnia alvei Presumptive C albicans 11/13/24 04:35 Blood Culture (Wb) - Cvp Cath Tip Blood Culture - Final Staphylococcus epidermidis Radiography Diagnostic Testing: Radiology Impression Echocardiogram 11/19/24 09:23 Interpretation Summary Normal LV size. Left ventricular systolic function is normal. The left ventricular ejection fraction is 65 %. Pulmonary artery systolic pressure is 40 mmHg. Contrast injection was performed. Ordering Physician: Vikram Easton Performed By: Adriana Palacios, RDCS, RVT Brain MRI 11/20/24 09:00 IMPRESSION: 1. Somewhat motion limited exam. 2. No specific evidence of an acute intracranial process. 3. Additional description as above. Reading Location: [id number] Rhythm Strip Rhythm Strip: A-fib Rate: 99 Ectopy: PVC(s) Physical Exam Narrative Resting quietly, no apparent distress S1, S2, RRR Breath sounds clear anteriorly. On room air Abdomen soft No pitting edema Georges with clear yellow urine in bag Assessment & Plan Assessment/Plan (1) CHRISTOPHER (acute kidney injury): (2) Hyperkalemia: (3) Hypernatremia: (4) Sepsis: QUALIFIERS: Sepsis type: sepsis due to unspecified organism Sepsis acute organ dysfunction status: with acute organ dysfunction Severe sepsis acute organ dysfunction type: encephalopathy Severe sepsis shock status: with septic shock Qualified Code(s): A41.9 - Sepsis, unspecified organism; R65.21 - Severe sepsis with septic shock; G93.41 - Metabolic encephalopathy PLAN: Plan This is a 79-year-old male with past medical history significant for hypertension, hyperlipidemia, diabetes mellitus type 2, SILVER on CPAP, history of A-fib on Coumadin, history of chronic diastolic heart failure (echo from October 2024: EF 65%, stage I diastolic dysfunction, mild left ventricular hypertrophy, moderate biatrial dilatation), ulcerative colitis, COPD who was brought to the emergency room from custodial for altered mental status changes. Patient was recently admitted to the hospital early October for acute decompensated heart failure but also found to have left groin/thigh wound with abscess that progressed to necrotizing deep soft tissue infection and underwent I&D with wound VAC placement. Nephrology consulted for elevated creatinine - CHRISTOPHER superimposed on possible CKD stage IIIa; during last hospitalization from October 09 to October 27 serum creatinine ranged 1 at best peaking up to 1.8 but had leveled off around 1.3 to 1.4. For this admission, creatinine 2.3 on admission, creatinine peaked at 3.82 on 11/13, creatinine is steadily trending down - Hypernatremia. Urine output is not significantly high to suggest DI. Likely due to lack of free water intake. D5 water for today. Altered mental status. Typically the sodium of 152 is not enough to cause this degree of altered mental status. MRI pending from today.
--- NOTE | 2024-11-20 11:35 | PN_ITS ---
Subjective Subjective Patient seen and examined. He had just come back from having the MRI. Patient is on Precedex drip. He remains very lethargic though he opens his eyes in response to voice. Unable to do review of systems due to patient's encephalopathy. Objective Data Objective Data Vital Signs: Vital Signs Temp Pulse Resp BP Pulse Ox O2 Del Method O2 Flow Rate 98.8 F 63 30 H 100/52 L 95 Room Air 3 11/20/24 10:15 11/20/24 11:00 11/20/24 11:00 11/20/24 11:15 11/20/24 11:00 11/20/24 11:00 11/17/24 22:00 Oxygen Flow Rate (L/min) 3 Oxygen Delivery Method Room Air Weight: 294 lb 1.546 oz Body Mass Index (BMI) 42.2 Intake & Output: Intake and Output for Last 24 Hours 11/18/24 11/19/24 11/20/24 23:59 23:59 23:59 Intake Total 3188.11 / 3215.19 3513.10 / 3515.93 601.14 / 601.14 Output Total 525 / 825 2325 / 2325 350 / 350 Balance 2663.11 / 2390.19 1188.10 / 1190.93 251.14 / 251.14 Lab / Micro Data 11/20/24 05:33 11/20/24 05:33 Labs: Laboratory Results - last 24 hr 11/19/24 11:15: POC Glucose 153 H 11/19/24 16:11: POC Glucose 139 H 11/20/24 00:01: POC Glucose 125 H 11/20/24 05:33: WBC 9.3, RBC 3.46 L, Hgb 10.2 L, Hct 33.0 L, MCV 95.4 H, MCH 29.5, MCHC 30.9 L, RDW Std Deviation 56.7 H, RDW Coeff of Jadon 16.1 H, Plt Count 190, MPV 11.4, Immature Gran % (Auto) 0.600, Neut % (Auto) 62.7, Lymph % (Auto) 28.9, [place] % (Auto) 4.6, Eos % (Auto) 2.9, Baso % (Auto) 0.3, Absolute Neuts (auto) 5.8, Absolute Lymphs (auto) 2.69, Nucleated RBC % 0.2, Differential Comment SCANNED, Platelet Estimate ADEQUATE, RBC Morphology NORM C+C, PT 31.5 H, INR 3.0, Sodium 152 H, Potassium 4.4, Chloride 126 H, Carbon Dioxide 18.3 L, Anion Gap 8, BUN 56 H, Creatinine 1.62 H, Estim Creat Clear Calc 51.65, Est GFR (MDRD) Non-Af 43 L, BUN/Creatinine Ratio 34.3 H, Glucose 153 H, Calcium 7.3 L, Total Bilirubin 0.62, AST 94 H, ALT 42, Alkaline Phosphatase 125, Total Protein 5.0 L, Albumin 1.5 L, Globulin 3.5, Albumin/Globulin Ratio 0.4 L, POC Glucose 133 H Micro: Microbiology 11/17/24 05:00 Blood Culture (Wb) - Anticubital Right Blood Culture - Preliminary No growth in 48 hours. 11/17/24 04:45 Blood Culture (Wb) - Anticubital Right Blood Culture - Preliminary No growth in 48 hours. 11/13/24 04:15 Blood Culture (Wb) - Anticubital Left Blood Culture - Final No growth in 5 days. 11/13/24 06:49 Urine, Catheterized Urine Culture - Final Hafnia alvei Presumptive C albicans 11/13/24 04:35 Blood Culture (Wb) - Cvp Cath Tip Blood Culture - Final Staphylococcus epidermidis Radiography Diagnostic Testing: Radiology Impression Echocardiogram 11/19/24 09:23 Interpretation Summary Normal LV size. Left ventricular systolic function is normal. The left ventricular ejection fraction is 65 %. Pulmonary artery systolic pressure is 40 mmHg. Contrast injection was performed. Ordering Physician: Vikram Easton Performed By: Adriana Palacios, RDCS, RVT Brain MRI 11/20/24 09:00 IMPRESSION: 1. Somewhat motion limited exam. 2. No specific evidence of an acute intracranial process. 3. Additional description as above. Reading Location: [id number] Rhythm Strip Rhythm Strip: A-fib Rate: 99 Ectopy: PVC(s) Physical Exam Const Constitutional Narrative: patient lethargic, frail, encephalopathic Orientation / Consciousness: confused and lethargic HEENT normocephalic, head/scalp atraumatic and moist oral mucous membranes Eyes PERRL and EOMs intact bilaterally Neck no lymphadenopathy and supple Lymph Lymphatic: no lymphadenopathy noted and no lymphedema noted Resp normal respiratory effort, no retractions, no use of accessory muscles and clear to auscultation bilaterally Resp Narrative: mildly diminished breath sounds bibasally, no wheezes or crackles. On room air. Cardio regular rate, regular rhythm, S1 normal heart sound, S2 normal heart sound and no murmurs GI normal to inspection, nondistended, normoactive bowel sounds, soft to palpation, non-tender and non-distended GI Narrative: distended. nontender to palpation Auscultation: hypoactive bowel sounds Extremity normal to inspection, full ROM, normal capillary refill, no clubbing, cyanosis or edema and no calf tenderness General Extremity: no tenderness to palpation of joints or extremities Skin General Skin Exam: no breakdown Neuro Neuro Narrative: patient lethargic, frail Psych Psych Narrative: as under neurological examination Assessment & Plan Assessment/Plan (1) Metabolic encephalopathy: (2) Septic shock: PLAN: Plan #Septic shock * remains on levophed and vasopressin. * thought to be due to UTI * CT abdomen and pelvis done yesterday was concerning for partial small bowel obstruction * general surgery on board and recommends conservative management for now * on IV antibiotics * titrate vasopressors to maintain MAP >65 * cosyntropin test was normal. * still hypotensive #Acute metabolic encephalopathy * patient still confused and lethargic. Avoid sedating meds for now * CT brain showed no acute intracranial pathology * TSH and ammonia levels were WNL * MRI of the brain done today. Was unable to tolerate getting it yesterday du to agitation #Small bowel obstruction * CT of the abdomen showed some dilated small and large bowel loops consistent with ileus vs possible obstruction. * general surgery o board and doesnt think there is a small bowel obstruction or any intraabdominal pathology taht would explain the hypotension and need for pressors. * KUB this morning showed mild diffuse gaseous dilatation of the bowels of the colon, slightly improved. * #CHRISTOPHER on CKD * Cr today is further down to 1.62. Improving. * Baseline is ~ 1.3. * nephrology on board * management as per nephrology. * #Hypernatremia * sodium is 152. B * management as per nephrology * #Necrotizing infection of the left thigh * Intact dressing over the left upper thigh. * wound care on board. #incarcerated umbilical hernia: * general surgery reviewed patient and recommended conservative management as no evidence of strangulation. * #Supratherapeutic INR: resolved. #SILVER: on CPAP qhs. #Type 2 diabetes mellitus * on ISS. Accuchecks q6hrly DVT prophylaxis: * SCDs. Charges/Coding Visit Charges Inpatient E&M: 77660 [facility] Hosp L3
[2024-11-20 15:20] LABS: Bedside Glucose 136 mg/dL (74-106)
[2024-11-20] MEDS: Insulin Glargine-YFGN 100 UNIT/ML Pen 8 UNIT SC (17:49)
[2024-11-20] MEDS: 0.9% Normal Saline (100mL Bag) 100 ML 15 ML IV (21:26)
[2024-11-21] VITALS (18 sets, daily range): BP systolic 102–145; BP diastolic 47–70; PULSE 108–124; RESP 22–35; TEMP 36.8–38.3; O2SAT 94–98; BMI 42.5
[2024-11-21 00:42] LABS: Bedside Glucose 134 mg/dL (74-106)
[2024-11-21 00:51] LABS: Bedside Glucose 128 mg/dL (74-106)
[2024-11-21] MEDS: Acetaminophen 650 MG Suppository RC (03:32)
[2024-11-21] MEDS: 0.9% Saline Lock 10 ML Syringe IV (06:07)
[2024-11-21] MEDS: Menthol/Lanolin/Calamine/Znox 113 GM Tube 1 APPLIC TOPICAL ×2 (06:07→11:16)
[2024-11-21 06:25] LABS: Bedside Glucose 137 mg/dL (74-106)
[2024-11-21 07:15] LABS: Absolute Lymphocyte Count 2.01 X10^3/uL (0.83-4.51); Absolute Neutrophil Count 10.7 X10^3/uL (2.0-7.7); Basophil# 0.04 X10^3/uL; Basophil% 0.3 % (0-1); Eosinophil# 0.03 X10^3/uL; Eosinophils% 0.2 % (0-5); Hematocrit 30.9 % (40-54); Hemoglobin 9.6 g/dL (13.0-16.5); Lymphocyte # 2.01 X10^3/ul (0.83-4.51); Mean Corp Hgb Conc 31.1 g/dL (32-36); Mean Corpuscular Volume 96.6 fL (80-94); Monocyte# 0.51 X10^3/uL; Monocyte% 3.8 % (0-10); NRBC Flagged by Analyzer 0.4 % (0-5); Neutrophil # 10.72 X10^3/uL (2.7-7.7); Neutrophil % 79.9 % (47-70); POSITIVE MORPHOLOGY YES; Platelet Count 186 K/mm3 (150-450); RBC Distribution Width CV 16.1 % (11.6-14.6); RBC Distribution Width SD 57.1 fl (35.1-43.9); White Blood Count 13.4 K/mm3 (4.4-11.0)
--- NOTE | 2024-11-21 07:34 | PCM.PN.INT ---
Assessment & Plan Assessment/Plan (1) UTI (urinary tract infection): (2) Septic shock: PLAN: Plan RECOMMENDATIONS: 1. Continue antimicrobial therapy as ordered to complete 7 days of therapy. 2. Continue local wound care. 3. Plan to meet with the family today to discuss results of testing, prognosis and goals of care. IMPRESSIONS: 1. Septic shock The patient presented to the hospital with sepsis, which was initially presumed secondary to UTI. However, culture data has not been overtly convincing to date. The patient still remains hypotensive, with ongoing vasopressor requirement. Cosyntropin stimulation test demonstrated an appropriate response. CT imaging of the abdomen completed yesterday demonstrated a possible early SBO versus ileus. The patient was evaluated by surgery, who felt the findings were likely related to ileus. Echocardiogram revealed intact, normal systolic function. Antibiotics will be continued for now to complete 7 days of therapy. 2. Toxic/metabolic encephalopathy Most likely related to #1. Avoid sedating medications for now. ABG was largely unrevealing. CT head failed to demonstrate acute findings. Ammonia level and TSH were within normal limits. Given the patient's increasing unresponsiveness, MRI brain and EEG were obtained, both of which were unremarkable. 3. Acute on chronic kidney disease Most likely prerenal in etiology in the setting of #1. Continue to monitor urine output. No current indication for renal replacement therapy. 4. Recent necrotizing soft tissue infection of left thigh/obstructive sleep apnea/diabetes mellitus/coagulopathy/COPD Complicates care, management, recovery and prognosis. Continue local wound care. CODE STATUS: DNR CCA without intubation (discussed with family, including POA). UPDATE: I met personally with the patient's family this afternoon to discuss the patient's prognosis and overall goals of care. The results of all of his testing was discussed. Following a lengthy discussion, the patient's family, including his healthcare POA were all in agreement to transition the patient to comfort care measures, with referral to be placed to hospice care services. CODE STATUS will be updated to DNR comfort care. Case management and social work are aware to help facilitate referral. CODE status: Discussed CODE status at length including difference between FULL code, DNR-CCA and DNR-CC status. Following discussions about the differences in these status, patient's family requested DNR comfort care CODE STATUS. Advanced Care Planning Face to Face Time: 23 minutes This note was generated with Dragon dictation software. It may contain incorrect words, spelling, and punctuation that were not noted in checking the note before signing. Subjective Subjective The patient was seen and examined at the bedside this morning. Events from the last 24 hours have been reviewed. The patient currently has a low-grade fever and remains on 2 L/min of supplemental oxygen. The patient was weaned off of Levophed completely yesterday afternoon. The patient remains significantly overall net positive from a volume perspective for the hospitalization. White blood cell count remains elevated at 13,000 with a hemoglobin of 9.6 g/dL and platelet count of 186,000. Sodium still remains elevated at 151 with a chloride of 124 and creatinine of 1.97. EEG demonstrated evidence of encephalopathy without epileptiform discharges. MRI brain was unremarkable. Objective Data Objective Data The patient's most recent lab work, culture data and imaging studies have all been personally reviewed. Culture data to date has been largely unremarkable. Repeat blood cultures from November 17 have not demonstrated any growth to date. Vital Signs: Vital Signs Temp Pulse Resp BP Pulse Ox O2 Del Method O2 Flow Rate 99.6 F H 117 H 28 H 128/59 H 95 Nasal Cannula 2 11/21/24 07:00 11/21/24 07:00 11/21/24 07:00 11/21/24 07:00 11/21/24 07:00 11/21/24 07:00 11/21/24 07:00 Oxygen Flow Rate (L/min) 2 Oxygen Delivery Method Nasal Cannula Weight: 296 lb 11.875 oz Body Mass Index (BMI) 42.5 Intake & Output: Intake and Output for Last 24 Hours 11/19/24 11/20/24 11/21/24 23:59 23:59 23:59 Intake Total 3513.10 / 3515.93 1951.18 / 1951.18 1000 / 1000 Output Total 2325 / 2325 895 / 895 60 / 60 Balance 1188.10 / 1190.93 1056.18 / 1056.18 940 / 940 Lab / Micro Data Attestation: I reviewed the patient's lab results. 11/21/24 06:04 11/21/24 06:04 Labs: Laboratory Results - last 24 hr 11/20/24 12:14: POC Glucose 136 H 11/20/24 17:48: POC Glucose 134 H 11/21/24 00:34: POC Glucose 128 H 11/21/24 06:05: POC Glucose 137 H Micro: Microbiology 11/17/24 05:00 Blood Culture (Wb) - Anticubital Right Blood Culture - Preliminary No growth in 48 hours. 11/17/24 04:45 Blood Culture (Wb) - Anticubital Right Blood Culture - Preliminary No growth in 48 hours. 11/13/24 04:15 Blood Culture (Wb) - Anticubital Left Blood Culture - Final No growth in 5 days. 11/13/24 06:49 Urine, Catheterized Urine Culture - Final Hafnia alvei Presumptive C albicans 11/13/24 04:35 Blood Culture (Wb) - Cvp Cath Tip Blood Culture - Final Staphylococcus epidermidis ABG Data ABG results: ABG 11/19/24 08:18 Specimen Type ART Sample Site L Radial pH 7.43 Bicarbonate Actual 17.4 L Total CO2 18 Base Excess -7 L O2 Saturation 95 ABG pCO2 26.3 L ABG pO2 73 L Blair Test Positive O2 Delivery Device Room Air Vent Mode Not entered Radiography Diagnostic Testing: Radiology Impression Brain MRI 11/20/24 09:00 IMPRESSION: 1. Somewhat motion limited exam. 2. No specific evidence of an acute intracranial process. 3. Additional description as above. Reading Location: [id number] Rhythm Strip Rhythm Strip: A-fib Rate: 99 Ectopy: PVC(s) Physical Exam Const Constitutional Narrative: Morbidly obese. General Appearance: lethargic and ill appearing HEENT normocephalic and head/scalp atraumatic Teeth and Gingiva: poor dentition Eyes PERRL, EOMs intact bilaterally and conjunctivae normal Neck supple General: trachea midline Chest inspection of chest normal Resp Effort and Inspection: tachypneic Auscultation: Negative for rales, rhonchi or wheezes Cardio S1 normal heart sound and S2 normal heart sound Rate: tachycardic GI normal to inspection, nondistended, normoactive bowel sounds Extremity General Extremity: edema Skin Skin Narrative: Groin wound present on admission, currently dressed Neuro CN's II-XII intact bilaterally and moves all extremities Neuro Narrative: The patient will not currently interact or follow commands. Psych Mood & Affect: flat affect Charges/Coding Visit Charges Inpatient E&M: 58571 Subs Hosp L3 Procedures Hospitalists Procedures: [id number] Advncd Care Plan 30 Min
[2024-11-21 07:35] LABS: Anion Gap 10 (5-15); BUN 55 mg/dL (4-19); BUN/Creat Ratio 27.8 RATIO (10-20); Calcium,Total 7.3 mg/dL (7.6-11.0); Carbon Dioxide 16.5 mmol/L (21.0-32.0); Chloride 124 mmol/L (98-108); Creatinine, Serum 1.97 mg/dL (0.70-1.20); EST Glomerular Filtration Rate 34 (>60); Estimated Creatinine Clearance 42.68 ml/min (50-250); Glucose 151 mg/dL (70-99); Potassium 4.4 mmol/L (3.3-5.1); Sodium Level 151 mmol/L (133-145)
[2024-11-21 07:36] LABS: Differential Indicated SCAN CRITERIA MET
[2024-11-21] MEDS: Pantoprazole Sodium 40 MG in 0.9% Normal Saline (100mL MB+) 100 ML 330 MG IV (07:45)
[2024-11-21] MEDS: Meropenem 2 GM in 0.9% Normal Saline (100mL Bag) 100 ML IV (09:32)
--- NOTE | 2024-11-21 10:15 | PN_ITS ---
Subjective Subjective Patient seen and examined. Patient remains quite encephalopathic. He is able to open his eyes but not really able to answer any questions. He remains tachypneic and tachycardic though he is on 2 L of oxygen. Unable to do comprehensive review of systems. Objective Data Objective Data Vital Signs: Vital Signs Temp Pulse Resp BP Pulse Ox O2 Del Method O2 Flow Rate 98.9 F 115 H 33 H 130/62 H 94 Nasal Cannula 2 11/21/24 10:00 11/21/24 10:00 11/21/24 10:00 11/21/24 10:00 11/21/24 10:00 11/21/24 10:00 11/21/24 10:00 Oxygen Flow Rate (L/min) 2 Oxygen Delivery Method Nasal Cannula Weight: 296 lb 11.875 oz Body Mass Index (BMI) 42.5 Intake & Output: Intake and Output for Last 24 Hours 11/19/24 11/20/24 11/21/24 23:59 23:59 23:59 Intake Total 3513.10 / 3515.93 1951.18 / 1951.18 1110 / 1110 Output Total 2325 / 2325 895 / 895 105 / 105 Balance 1188.10 / 1190.93 1056.18 / 1056.18 1005 / 1005 Lab / Micro Data 11/21/24 06:04 11/21/24 06:04 Labs: Laboratory Results - last 24 hr 11/20/24 12:14: POC Glucose 136 H 11/20/24 17:48: POC Glucose 134 H 11/21/24 00:34: POC Glucose 128 H 11/21/24 06:04: WBC 13.4 H, RBC 3.20 L, Hgb 9.6 L, Hct 30.9 L, MCV 96.6 H, MCH 30.0, MCHC 31.1 L, RDW Std Deviation 57.1 H, RDW Coeff of Jadon 16.1 H, Plt Count 186, MPV 12.0, Immature Gran % (Auto) 0.800, Neut % (Auto) 79.9 H, Lymph % (Auto) 15.0 L, Cobb % (Auto) 3.8, Eos % (Auto) 0.2, Baso % (Auto) 0.3, Absolute Neuts (auto) 10.7 H, Absolute Lymphs (auto) 2.01, Nucleated RBC % 0.4, Differential Comment , Sodium 151 H, Potassium 4.4, Chloride 124 H, Carbon Dioxide 16.5 L, Anion Gap 10, BUN 55 H, Creatinine 1.97 H, Estim Creat Clear Calc 42.68 L, Est GFR (MDRD) Non-Af 34 L, BUN/Creatinine Ratio 27.8 H, Glucose 151 H, Calcium 7.3 L 11/21/24 06:05: POC Glucose 137 H Micro: Microbiology 11/17/24 05:00 Blood Culture (Wb) - Anticubital Right Blood Culture - Preliminary No growth in 48 hours. 11/17/24 04:45 Blood Culture (Wb) - Anticubital Right Blood Culture - Preliminary No growth in 48 hours. 11/13/24 04:15 Blood Culture (Wb) - Anticubital Left Blood Culture - Final No growth in 5 days. 11/13/24 06:49 Urine, Catheterized Urine Culture - Final Hafnia alvei Presumptive C albicans 11/13/24 04:35 Blood Culture (Wb) - Cvp Cath Tip Blood Culture - Final Staphylococcus epidermidis Radiography Diagnostic Testing: Radiology Impression Brain MRI 11/20/24 09:00 IMPRESSION: 1. Somewhat motion limited exam. 2. No specific evidence of an acute intracranial process. 3. Additional description as above. Reading Location: [facility] Rhythm Strip Rhythm Strip: A-fib Rate: 99 Ectopy: PVC(s) Physical Exam Const alert Constitutional Narrative: patient lethargic, frail, encephalopathic Orientation / Consciousness: confused and lethargic HEENT normocephalic, head/scalp atraumatic and moist oral mucous membranes Eyes PERRL and EOMs intact bilaterally Neck no lymphadenopathy and supple Lymph Lymphatic: no lymphadenopathy noted and no lymphedema noted Resp Resp Narrative: mildly diminished breath sounds bibasally, no wheezes or crackles. On 2L of oxygen by nasal canula Cardio regular rate, regular rhythm, S1 normal heart sound, S2 normal heart sound and no murmurs GI normal to inspection, nondistended, normoactive bowel sounds, soft to palpation, non-tender and non-distended Auscultation: hypoactive bowel sounds Extremity normal to inspection, full ROM, normal capillary refill, no clubbing, cyanosis or edema and no calf tenderness General Extremity: no tenderness to palpation of joints or extremities Skin General Skin Exam: no breakdown Neuro Neuro Narrative: patient lethargic, frail Sensorium / Orientation: awake and alert Psych Psych Narrative: as under neurological examination Mood & Affect: anxious Assessment & Plan Assessment/Plan (1) Metabolic encephalopathy: (2) Septic shock: PLAN: Plan #Septic shock * remains on levophed and vasopressin. * thought to be due to UTI * CT abdomen and pelvis done was concerning for partial small bowel obstruction * general surgery on board and recommends conservative management for now * on IV antibiotics * titrate vasopressors to maintain MAP >65 * cosyntropin test was normal. * still hypotensive #Acute metabolic encephalopathy * patient still confused and lethargic. Avoid sedating meds for now * CT brain showed no acute intracranial pathology * TSH and ammonia levels were WNL * MRI of the brain showed no acute intracranial pathology. #Small bowel obstruction * CT of the abdomen showed some dilated small and large bowel loops consistent with ileus vs possible obstruction. * general surgery o board and doesnt think there is a small bowel obstruction or any intraabdominal pathology taht would explain the hypotension and need for pressors. * KUB this morning showed mild diffuse gaseous dilatation of the bowels of the colon, slightly improved. * #CHRISTOPHER on CKD * Creatinine today is up to 1.97, trended up from 1.62 yesterday * Baseline is ~ 1.3. * nephrology on board * management as per nephrology. * #Hypernatremia * sodium still remains elevated at 151 today. * management as per nephrology * #Necrotizing infection of the left thigh * Intact dressing over the left upper thigh. * wound care on board. #incarcerated umbilical hernia: * general surgery reviewed patient and recommended conservative management as no evidence of strangulation. * #Supratherapeutic INR: resolved. #SILVER: on CPAP qhs. #Type 2 diabetes mellitus * on ISS. Accuchecks q6hrly DVT prophylaxis: * SCDs. * Disposition: * family coming in to meet with [employer] worker today to discuss goals of care. Further management will be predicated on the goals of care discussion. Charges/Coding Visit Charges Inpatient E&M: 63729 Subs Hosp L3
--- NOTE | 2024-11-21 11:24 | PCM.PN.REN ---
Subjective Subjective Awake. No acute distress. Resting in bed. No overnight events. Objective Data Objective Data Vital Signs: Vital Signs Temp Pulse Resp BP Pulse Ox O2 Del Method O2 Flow Rate 98.7 F 120 H 31 H 131/65 H 95 Nasal Cannula 2 11/21/24 11:00 11/21/24 11:00 11/21/24 11:00 11/21/24 11:00 11/21/24 11:00 11/21/24 11:00 11/21/24 11:00 Oxygen Flow Rate (L/min) 2 Oxygen Delivery Method Nasal Cannula Weight: 134.6 kg Body Mass Index (BMI) 42.5 Intake & Output: Intake and Output for Last 24 Hours 11/19/24 11/20/24 11/21/24 23:59 23:59 23:59 Intake Total 3513.10 / 3515.93 1951.18 / 1951.18 1250 / 1250 Output Total 2325 / 2325 895 / 895 165 / 165 Balance 1188.10 / 1190.93 1056.18 / 1056.18 1085 / 1085 Lab / Micro Data 11/21/24 06:04 11/21/24 06:04 Labs: Laboratory Results - last 24 hr 11/20/24 12:14: POC Glucose 136 H 11/20/24 17:48: POC Glucose 134 H 11/21/24 00:34: POC Glucose 128 H 11/21/24 06:04: WBC 13.4 H, RBC 3.20 L, Hgb 9.6 L, Hct 30.9 L, MCV 96.6 H, MCH 30.0, MCHC 31.1 L, RDW Std Deviation 57.1 H, RDW Coeff of Jadon 16.1 H, Plt Count 186, MPV 12.0, Immature Gran % (Auto) 0.800, Neut % (Auto) 79.9 H, Lymph % (Auto) 15.0 L, [place] % (Auto) 3.8, Eos % (Auto) 0.2, Baso % (Auto) 0.3, Absolute Neuts (auto) 10.7 H, Absolute Lymphs (auto) 2.01, Nucleated RBC % 0.4, Differential Comment , Sodium 151 H, Potassium 4.4, Chloride 124 H, Carbon Dioxide 16.5 L, Anion Gap 10, BUN 55 H, Creatinine 1.97 H, Estim Creat Clear Calc 42.68 L, Est GFR (MDRD) Non-Af 34 L, BUN/Creatinine Ratio 27.8 H, Glucose 151 H, Calcium 7.3 L 11/21/24 06:05: POC Glucose 137 H Micro: Microbiology 11/17/24 05:00 Blood Culture (Wb) - Anticubital Right Blood Culture - Preliminary No growth in 48 hours. 11/17/24 04:45 Blood Culture (Wb) - Anticubital Right Blood Culture - Preliminary No growth in 48 hours. 11/13/24 04:15 Blood Culture (Wb) - Anticubital Left Blood Culture - Final No growth in 5 days. 11/13/24 06:49 Urine, Catheterized Urine Culture - Final Hafnia alvei Presumptive C albicans 11/13/24 04:35 Blood Culture (Wb) - Cvp Cath Tip Blood Culture - Final Staphylococcus epidermidis Rhythm Strip Rhythm Strip: A-fib Rate: 99 Ectopy: PVC(s) Physical Exam Narrative Resting quietly, no apparent distress S1, S2, RRR Breath sounds clear anteriorly. Abdomen soft No pitting edema Georges with clear yellow urine in bag Assessment & Plan Assessment/Plan (1) CHRISTOPHER (acute kidney injury): (2) Hyperkalemia: (3) Hypernatremia: (4) Sepsis: QUALIFIERS: Sepsis type: sepsis due to unspecified organism Sepsis acute organ dysfunction status: with acute organ dysfunction Severe sepsis acute organ dysfunction type: encephalopathy Severe sepsis shock status: with septic shock Qualified Code(s): A41.9 - Sepsis, unspecified organism; R65.21 - Severe sepsis with septic shock; G93.41 - Metabolic encephalopathy PLAN: Plan This is a 79-year-old male with past medical history significant for hypertension, hyperlipidemia, diabetes mellitus type 2, SILVER on CPAP, history of A-fib on Coumadin, history of chronic diastolic heart failure (echo from October 2024: EF 65%, stage I diastolic dysfunction, mild left ventricular hypertrophy, moderate biatrial dilatation), ulcerative colitis, COPD who was brought to the emergency room from detention for altered mental status changes. Patient was recently admitted to the hospital early October for acute decompensated heart failure but also found to have left groin/thigh wound with abscess that progressed to necrotizing deep soft tissue infection and underwent I&D with wound VAC placement. Nephrology consulted for elevated creatinine - CHRISTOPHER superimposed on possible CKD stage IIIa; prerenal CHRISTOPHER likely from sepsis, hypotension. During last hospitalization from October 09 to October 27 serum creatinine ranged 1 at best peaking up to 1.8 but had leveled off around 1.3 to 1.4. For this admission, creatinine 2.3 on admission, creatinine peaked at 3.82 on 11/13. Creatinine had been slowly trending down, creatinine was 1.6 yesterday today creatinine 1.97. Urine output around 900 mL yesterday. - Hypernatremia. Sodium 151 today. Urine output is not significantly high to suggest DI. Likely due to lack of free water intake. Patient was on D5, IV fluids stopped. Patient documented net positive around 19 L. Patient is on 2 L nasal cannula - Altered mental status. Typically the sodium of 152 is not enough to cause this degree of altered mental status. MRI no evidence of acute intracranial process. Assessment and plan reviewed with Dr. Laureano.
[2024-11-21 11:39] LABS: Bedside Glucose 138 mg/dL (74-106)
--- NOTE | 2024-11-21 13:47 | CASEMGMT ---
Addendum entered by Irina Banks 11/21/24 14:50: Social Work [facility] meeting scheduled for 3pm today. RN notified. NOEL Callahan Original Note: Social Work SW and physician met with pt's brother/HCPOA Enrique, pt's nephew Alvin and pt's niece for goals of care conversation. Clinical information provided by physician and pt's family opting for comfort care measures. SW discuss options going forward including Home with hospice, hospice at SNF and [facility]. Family requesting referral to [facility] for placement at the [facility]. Support provided to pt's family. Referral made to [facility] who will reach out to Alvin to set an appointment. Nursing notified of plan. NOEL Callahan
--- NOTE | 2024-11-21 15:25 | CHAPLAIN ---
Type of Pastoral Visit ___ Initial Visit ___ Follow-up Visit ___ On-call Visit ___ General Patient Visit ___ Spiritual Assessment _x__ Family Conference ___ Bereavement ___ Rapid Response ___ Code Blue ___ Other (describe below) Pastoral Care Referral From ___ Patient ___ Family _x__ Nurse ___ Physician ___ Police Detective ___ Buyer Broker ___ Other (describe below) Sacrament/Intervention _x__ Active listening ___ Anointing ___ Pentecostalism ___ Bereavement ___ Communion ___ Josefina exploration ___ ___ Life review _x__ Prayer ___ Reconciliation ___ Sacrament of Sick _x__ Supportive presence ___ Wedding ___ Other (describe below) Pastoral Comments RN notified this lead generation representative about plan for family to enroll this patient into hospice services; met with brother, nephew, and niece of the patient; spouse of the patient is said to have dementia and unable to be at the hospital now; family confirms the plan for hospice and welcome supportive presence and prayer for the patient; pt is of the [employer] but not active in attending Mass; pt is able to open eyes and nod silently as this lead generation representative speaks to him and asks permission for prayer; pt nods yes; prayer and presence given; offer of support as needed for the family; some life review given by the family; hospice nurse is to arrive any minute
--- NOTE | 2024-11-21 16:38 | CASEMGMT ---
Social Work Pt has been accepted into the inpatient unit at [facility]. Physician notified and agreeable to dc today to [facility]. SW arranged for transportation with [facility] for 4:45 pick pulling machine operator via cot. Pt's family, hospice nurse and RN notified of pick pulling machine operator time. SW notified [facility] of discharge to [facility]. Diposition: [facility], [facility] NOEL Callahan
--- NOTE | 2024-11-21 16:53 | DS.PCM_ITS ---
Providers Date of Admission: 11/13/24 Date of Discharge: 11/21/24 Primary Care Physician: Dr. Odessa Washington MD Consultations 11/13/24 08:31 Consult: Fabric Worker Fitter / Pulmonary Medicine Routine Consulting Provider: Intensivists/Pulmonary Med Reason for Consult: Sepsis with septic shock and right pyelonephritis EMERGENT Consult: No MD Notified: Yes Date Notified: 11/13/24 Time Notified: 07:27 Method of Notification: Verbal 11/13/24 08:53 Consult: General Surgery Routine Consulting Provider: Oliverio Johnson Reason for Consult: incarcerated hernia EMERGENT Consult: No MD Notified: Yes Date Notified: 11/13/24 Time Notified: 08:53 Method of Notification: ED Physician Initiated 11/13/24 10:09 Consult: Onc/Wound/director of operations home health Routine Comment: 11/14/24 08:47 Consult: Nephrology Routine Consulting Provider: Evin Laureano Reason for Consult: CHRISTOPHER EMERGENT Consult: No Notified: Yes Date Notified: 11/14/24 Time Notified: 08:47 Method of Notification: Verbal 11/18/24 08:30 Consult: General Surgery Routine Consulting Provider: Ron Jones Reason for Consult: Abdominal Pain EMERGENT Consult: No Notified: Yes Date Notified: 11/18/24 Time Notified: 08:30 Method of Notification: Verbal 11/21/24 13:27 Consult: Hospice / Palliative Care Routine Consulting Provider: [facility] Reason for Consult: End of life care EMERGENT Consult: No MD Notified: Yes Date Notified: 11/21/24 Time Notified: 13:27 Method of Notification: Notified by social work Reason For Visit: SEPSIS W/SEPTIC SHOCK DUE TO RIGHT PYELONEPHRITIS Diagnosis Discharge Diagnosis (1) UTI (urinary tract infection): Status: Acute Code(s): N39.0 - Urinary tract infection, site not specified (2) Septic shock: Status: Acute Code(s): A41.9 - Sepsis, unspecified organism; R65.21 - Severe sepsis with septic shock Plan #Septic shock * remains on levophed and vasopressin. * thought to be due to UTI * CT abdomen and pelvis done was concerning for partial small bowel obstruction * general surgery on board and recommends conservative management for now * on IV antibiotics * titrate vasopressors to maintain MAP >65 * cosyntropin test was normal. * still hypotensive #Acute metabolic encephalopathy * patient still confused and lethargic. Avoid sedating meds for now * CT brain showed no acute intracranial pathology * TSH and ammonia levels were WNL * MRI of the brain showed no acute intracranial pathology. #Small bowel obstruction * CT of the abdomen showed some dilated small and large bowel loops consistent with ileus vs possible obstruction. * general surgery o board and doesnt think there is a small bowel obstruction or any intraabdominal pathology taht would explain the hypotension and need for pressors. * KUB this morning showed mild diffuse gaseous dilatation of the bowels of the colon, slightly improved. * #CHRISTOPHER on CKD * Creatinine today is up to 1.97, trended up from 1.62 yesterday * Baseline is ~ 1.3. * nephrology on board * management as per nephrology. * #Hypernatremia * sodium still remains elevated at 151 today. * management as per nephrology * #Necrotizing infection of the left thigh * Intact dressing over the left upper thigh. * wound care on board. #incarcerated umbilical hernia: * general surgery reviewed patient and recommended conservative management as no evidence of strangulation. * #Supratherapeutic INR: resolved. #SILVER: on CPAP qhs. #Type 2 diabetes mellitus * on ISS. Accuchecks q6hrly DVT prophylaxis: * SCDs. * Disposition: * family coming in to meet with heavy equipment supervisor today to discuss goals of care. Further management will be predicated on the goals of care discussion. Medications at Discharge Home Medications potassium chloride 20 mEq tablet,extended release(part/cryst) 40 meq PO DAILY Low potassium 09/27/15 atorvastatin 40 mg tablet 40 mg PO QHS Cholesterol 08/20/16 metformin 500 mg tablet 500 mg PO BID Diabetes 05/09/19 fexofenadine 180 mg tablet 180 mg PO DAILY PRN Allergic Symptoms 01/11/22 prazosin 2 mg capsule 2 mg PO BID bp 08/08/22 vedolizumab 300 mg intravenous solution (Entyvio) 300 mg IV .per order 03/21/23 tiotropium 2.5 mcg-olodaterol 2.5 mcg/actuation mist for inhalation (Stiolto Respimat) 2 puff inhalation DAILY SOB #3 ea 04/22/24 dicyclomine 20 mg tablet 20 mg PO TID 10/09/24 ketoconazole 2 % shampoo 1 applic topical .COMPLEX 10/09/24 furosemide 40 mg tablet (Lasix) 40 mg PO DAILY #30 tabs 10/18/24 insulin glargine-yfgn 100 unit/mL (3 mL) subcutaneous pen 8 unit (0.08 mL) subcut DINNER #15 mL 10/18/24 insulin glargine-yfgn 100 unit/mL (3 mL) subcutaneous pen 15 unit (0.15 mL) subcut DAILY #15 mL 10/18/24 pen needle, diabetic 29 gauge #100 ea 10/18/24 warfarin 2.5 mg tablet 2.5 mg PO SUTUWETHFRSA blood thinner 10/24/24 acetaminophen 325 mg tablet 650 mg (2 x 325 mg) PO Q6H PRN PRN Pain 1-10 Or Fever >100.7 #0 tabs 10/28/24 metoprolol tartrate 25 mg tablet 25 mg PO BID #0 tabs 10/28/24 oxycodone 5 mg tablet 5 mg PO Q8H PRN pain (scale score 7-10) 3 days #12 tabs 10/28/24 pantoprazole 40 mg tablet,delayed release 40 mg PO BID #0 tabs 10/28/24 aluminum-magnesium hydroxide 200 mg-200 mg/5 mL oral suspension (MAG-AL) 5 ml PO Q4H PRN gi distress 11/13/24 ascorbic acid (vitamin C) 500 mg tablet (C-500) 0.5 g PO DAILY 11/13/24 dapagliflozin propanediol 5 mg tablet 5 mg PO DAILY 11/13/24 magnesium oxide 400 mg PO BID 11/13/24 melatonin 5 mg tablet 5 mg PO QHS 11/13/24 multivitamin,qw-hubc-qtvvdipa 1 tab .ROUTE DAILY 11/13/24 umeclidinium 62.5 mcg-vilanterol 25 mcg/actuation powdr for inhalation (Anoro Ellipta) 1 inh inhalation DAILY 11/13/24 flecainide 50 mg tablet 50 mg PO Q12H #180 TABLETS 11/14/24 Hospital Course Operations None Procedures None Summary of Care Provided Minutes Spent on Discharge: 55 Hospital Course: Patient is a 79 y/o male with a PMH as outlined who was admitted via the ED on 11/13/2024 with a complaint of altered mental status and hypotension. Patient had an antecedent history of necrotizing soft tissue infection of the left medial thigh and not had an I&D done with general surgery and plastics on October 11, 2024. He had a wound VAC placed and was discharged to custodial. He came in from his custodial on account of altered mental status as stated. He was also hypotensive and INR was elevated at 5.9. On admission in the ED leukocytosis was detected. CBC with WBC of 12.6 and lactic acid was also elevated at 3.2. CT of the abdomen and pelvis showed mild to moderate perinephric stranding of the right kidney and proximal ureter possibly secondary to recently passed stone in addition to incarcerated fat-containing periumbilical hernia along with simple cysts within the superior pole of the right kidney and colonic diverticulosis. He was admitted to the ICU and managed for septic shock as his blood pressure was 74/64 on admission and did not improve after being hydrated per sepsis protocol. He was also hyperkalemic with potassium of 5.7 and his creatinine was elevated at 3.82. He was started on broad-spectrum antibiotics. Critical care was consulted. General surgery was also consulted. He was started on Levophed to maintain hemodynamic support. Patient had a prolonged and protracted hospital course. He remained encephalopathic though MRI of the brain showed no acute intracranial pathology as well as CT of the brain. Hospital course was complicated by small bowel obstruction. CT of the abdomen and pelvis. General surgery reviewed patient and recommended conservative management. TSH and ammonia levels were within normal limits. Hospital course was also complicated by hyponatremia and CHRISTOPHER. Nephrology was on board during admission. Patient's mentation did not really improve throughout the admission. Due to his condition not improving, family met with critical care and opted to make patient DNR CC. Patient was therefore [facility]. Patient was seen on day of discharge. He remained confused and lethargic. Unable to do review of systems. Physical Exam Const Constitutional Narrative: patient lethargic, frail, encephalopathic Orientation / Consciousness: confused and lethargic HEENT normocephalic, head/scalp atraumatic and moist oral mucous membranes Eyes PERRL and EOMs intact bilaterally Neck no lymphadenopathy and supple Lymph Lymphatic: no lymphadenopathy noted and no lymphedema noted Resp normal respiratory effort, no retractions, no use of accessory muscles and clear to auscultation bilaterally Resp Narrative: mildly diminished breath sounds bibasally, no wheezes or crackles. On 2L of oxygen by nasal canula Cardio regular rate, regular rhythm, S1 normal heart sound, S2 normal heart sound and no murmurs GI GI Narrative: distended. nontender to palpation Auscultation: hypoactive bowel sounds Extremity normal to inspection, full ROM, normal capillary refill, no clubbing, cyanosis or edema and no calf tenderness General Extremity: no tenderness to palpation of joints or extremities Skin General Skin Exam: no breakdown Neuro Neuro Narrative: patient lethargic, frail Psych Psych Narrative: as under neurological examination Weight / BMI Weight Weight: 296 lb 11.875 oz Body Mass Index (BMI) 42.5 ABG / Lab / Microbiology Data 11/21/24 06:04 11/21/24 06:04 Laboratory: Laboratory Results - last 24 hr 11/20/24 17:48: POC Glucose 134 H 11/21/24 00:34: POC Glucose 128 H 11/21/24 06:04: WBC 13.4 H, RBC 3.20 L, Hgb 9.6 L, Hct 30.9 L, MCV 96.6 H, MCH 30.0, MCHC 31.1 L, RDW Std Deviation 57.1 H, RDW Coeff of Jadon 16.1 H, Plt Count 186, MPV 12.0, Immature Gran % (Auto) 0.800, Neut % (Auto) 79.9 H, Lymph % (Auto) 15.0 L, [place] % (Auto) 3.8, Eos % (Auto) 0.2, Baso % (Auto) 0.3, Absolute Neuts (auto) 10.7 H, Absolute Lymphs (auto) 2.01, Nucleated RBC % 0.4, Differential Comment , Sodium 151 H, Potassium 4.4, Chloride 124 H, Carbon Dioxide 16.5 L, Anion Gap 10, BUN 55 H, Creatinine 1.97 H, Estim Creat Clear Calc 42.68 L, Est GFR (MDRD) Non-Af 34 L, BUN/Creatinine Ratio 27.8 H, Glucose 151 H, Calcium 7.3 L 11/21/24 06:05: POC Glucose 137 H 11/21/24 11:15: POC Glucose 138 H Microbiology: Microbiology 11/17/24 05:00 Blood Culture (Wb) - Anticubital Right Blood Culture - Preliminary No growth in 48 hours. 11/17/24 04:45 Blood Culture (Wb) - Anticubital Right Blood Culture - Preliminary No growth in 48 hours. 11/13/24 04:15 Blood Culture (Wb) - Anticubital Left Blood Culture - Final No growth in 5 days. 11/13/24 06:49 Urine, Catheterized Urine Culture - Final Hafnia alvei Presumptive C albicans 11/13/24 04:35 Blood Culture (Wb) - Cvp Cath Tip Blood Culture - Final Staphylococcus epidermidis D/C Instructions DC O2, CPAP, BIPAP Needs Home O2 Discharge instructions: No Meaningful Use Info Meaningful Use Meaningful Use Diagnoses (Choose all that apply): None applicable Ischemic Stroke Statin Dosing Therapy Reference: STATIN DOSE THERAPY REFERENCE: * Patients > 75 years receive moderate or high dose statin therapy. * Patients 75 years or YOUNGER should receive HIGH intensity statin dose unless contraindicated. You will be required to document reason for non-treatment if statin daily dose does not meet guidelines. HIGH DOSE STATIN THERAPY DAILY Atorvastatin > than or = to 40 mg Rosuvastatin > than or = to 20 mg Amlodipine + Atorvastatin > than or = to 2.5/40 mg Ezetimibe + Simvastatin 10/80 mg Simvastatin 80mg Discharge Plan Admission Admit Date/Time: 11/13/24 07:20 Attending Provider: Elida Turcios Primary Care Provider: Odessa Washington Consulting Providers: Hung Blas; Oliverio Johnson; Matt Manuel; Bassem Bolivar; Alvin Hawkins; Vikram Easton; Hung Hidalgo; Gonzalo Humphreys; Ronnell Johnson; Lillie Ramirez; Edson Barrow; Nawaf Rollins; Devin Becerril; Solange Wick; Trent Golden; Deysi Recio; Dereje Echeverria; Henri Mora; Shayan Tyler; Sheng Hagen; Fredy Alva; Devon Arthur; Andrew Jenkins; Cas Moore; aPtrick Swartz; Evin Laureano; Modesto Encarnacion; Ron Jones; Yuliana Terry; Rosemary Moy; Lucrecia Parra; Ebenezer Wagner; Eduardo Simental; Sukhi Sotomayor; YASSINE RAO; Radha Wilson; Maria A Alvarado; Jose Elias Carlos; Loyda Constantino; Hung Ridley; Frieda Plaza; Janet Raines; Jaymie Fair; Joann Alvarenga NP; Ivette Dozier Discharge Orders/Prescriptions Prescriptions: No Action metformin 500 mg tablet 500 mg PO BID Entyvio 300 mg recon soln 300 mg IV .per order Rx Instructions: 300 mg intravenously; as directed potassium chloride 20 MEQ tablet 40 meq PO DAILY atorvastatin 40 MG tablet 40 mg PO QHS fexofenadine 180 mg tablet 180 mg PO DAILY PRN (Reason: Allergic Symptoms) prazosin 2 mg capsule 2 mg PO BID ketoconazole 2 % shampoo 1 applic topical .COMPLEX Rx Instructions: 1 applic topically 2-3 TIMES WEEKLY; dicyclomine 20 mg tablet 20 mg PO TID insulin glargine-yfgn 100 unit/mL (3 mL) Insulin Pen 8 unit subcut DINNER Qty: 15 0RF insulin glargine-yfgn 100 unit/mL (3 mL) Insulin Pen 15 unit subcut DAILY Qty: 15 0RF furosemide [Lasix] 40 mg tablet 40 mg PO DAILY Qty: 30 0RF (DME) pen needle, diabetic 29 gauge needle See Rx Instructions .Route Qty: 100 0RF Rx Instructions: As directed warfarin 2.5 mg tablet 2.5 mg PO RODYUWETHZARIA Protocol: Dose Management Condition: Monday Dose/Route: 2.5 mg Instruction: 1 x 2.5 mg tablet Condition: Monday Dose/Route: 5 mg Instruction: 2 x 2.5 mg tablets Condition: Monday Dose/Route: 2.5 mg Instruction: 1 x 2.5 mg tablet Condition: Monday Dose/Route: 2.5 mg Instruction: 1 x 2.5 mg tablet Condition: Dose/Route: 2.5 mg Instruction: 1 x 2.5 mg tablet Condition: Monday Dose/Route: 2.5 mg Instruction: 1 x 2.5 mg tablet Condition: Monday Dose/Route: 2.5 mg Instruction: 1 x 2.5 mg tablet Protocol Text: Adjustment Start Date: Monday10/21/24 INR Value: 1.3 INR Date: 10/18/24 Recheck Date: 10/28/24 acetaminophen 325 mg Tablet 650 mg PO Q6H PRN PRN (Reason: Pain 1-10 Or Fever >100.7) Qty: 0 0RF metoprolol tartrate 25 mg Tablet 25 mg PO BID Qty: 0 0RF pantoprazole 40 mg Tablet,Delayed Release (Dr/Ec) 40 mg PO BID Qty: 0 0RF oxycodone 5 mg tablet 5 mg PO Q8H PRN (Reason: pain (scale score 7-10)) 3 Days Qty: 12 0RF Anoro Ellipta 62.5-25 mcg/actuation blister with device 1 inh inhalation DAILY MAG-AL 200-200 mg/5 mL suspension 5 ml PO Q4H PRN (Reason: gi distress) dapagliflozin propanediol 5 mg tablet 5 mg PO DAILY magnesium oxide 400 mg magnesium tablet 400 mg PO BID melatonin 5 mg tablet 5 mg PO QHS multivitamin,mi-zjmu-dpjsxxya [Thera-M] 1 tab .ROUTE DAILY ascorbic acid (vitamin C) [C-500] 500 mg tablet 0.5 g PO DAILY Stiolto Respimat 2.5-2.5 mcg/actuation mist 2 puff inhalation DAILY Qty: 3 3RF flecainide 50 mg tablet 50 mg PO Q12H Qty: 180 3RF Referrals / Follow Up: Carrie Boyer CNS [Non-Staff] - Odessa Washington MD [Primary Care Provider] - Disposition Disposition (needs filled in before D/C Order can be placed): Hospice in Medical Facility Charges/Coding Visit Charges Inpatient E&M: 87103 Disch Hosp >30min
== END 2024-11-21 17:13 | disposition hospice, inpatient (51) | DRG 871 ==
LOC: ED 05:49 → ICU 07:30
PROVIDERS: Internal Medicine; Internal Medicine Critical Care Medicine; Admitting Provider Internal Medicine; Emergency Provider Emergency Medicine; PCP Internal Medicine; Visit Provider Student in an Organized Health Care Education/Training Program
DX: A41.9 Sepsis, unspecified organism (principal); G93.41 Metabolic encephalopathy; R65.21 Severe sepsis with septic shock; G92.8 Other toxic encephalopathy; E87.20 Acidosis, unspecified; K56.7 Ileus, unspecified; E87.0 Hyperosmolality and hypernatremia; K42.0 Umbilical hernia with obstruction, without gangrene; I13.0 Hypertensive heart and chronic kidney disease with heart failure and stage 1 through stage 4 chronic kidney disease, or unspecified chronic kidney disease; N17.9 Acute kidney failure, unspecified; I50.32 Chronic diastolic (congestive) heart failure; N39.0 Urinary tract infection, site not specified; N12 Tubulo-interstitial nephritis, not specified as acute or chronic; J44.9 Chronic obstructive pulmonary disease, unspecified; N18.31 Chronic kidney disease, stage 3a; E11.22 Type 2 diabetes mellitus with diabetic chronic kidney disease; E66.9 Obesity, unspecified; I48.0 Paroxysmal atrial fibrillation; E87.5 Hyperkalemia; E78.00 Pure hypercholesterolemia, unspecified; Z79.4 Long term (current) use of insulin; G47.33 Obstructive sleep apnea (adult) (pediatric); E87.6 Hypokalemia; D72.829 Elevated white blood cell count, unspecified; M19.90 Unspecified osteoarthritis, unspecified site; K13.70 Unspecified lesions of oral mucosa; Z87.891 Personal history of nicotine dependence; R79.1 Abnormal coagulation profile; Z79.84 Long term (current) use of oral hypoglycemic drugs; R45.1 Restlessness and agitation; Z66 Do not resuscitate; Z68.38 Body mass index [BMI] 38.0-38.9, adult; Z79.899 Other long term (current) drug therapy; Z99.89 Dependence on other enabling machines and devices; Z79.01 Long term (current) use of 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s; Z87.19 Personal history of other diseases of the digestive system; N40.0 Benign prostatic hyperplasia without lower urinary tract symptoms; Z85.118 Personal history of other malignant neoplasm of bronchus and lung; Z96.643 Presence of artificial hip joint, bilateral; T45.511A Poisoning by 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s, accidental (unintentional), initial encounter; L08.9 Local infection of the skin and subcutaneous tissue, unspecified; R10.9 Unspecified abdominal pain; R41.82 Altered mental status, unspecified
CPT/HCPCS: 36569; 36600; 51702; 70450; 70553; 71045; 74018; 74176; 76770; 80048; 80053; 80061; 80202; 80307; 81001; 82010; 82077; 82140; 82533; 82550; 82570; 82607; 82746; 82803; 82962; 83036; 83605; 83690; 83735; 83930; 83935; 84100; 84443; 84540; 85025; 85610; 85730; 87040; 87077; 87086; 87088; 92526; 92610; 93005; 93308; 94762; 95819; 97110; 97161; 97166; 97803; 99285; A9575; J2185; Q9957; A4216; C8924; J0612; J0696; J0834; J1940